=== PATIENT | male | born 1950 | race Caucasian/White ===

== ENCOUNTER 2022-04-17 09:00 | Emergency (ER) | payer MEDICARE, OTHER, SELFPAY ==
[2022-04-17 09:01] VITALS: BP 124/74; PULSE 70; RESP 16; TEMP 36.6; O2SAT 99; BMI 24.0
--- NOTE | 2022-04-17 09:29 | EKG12_ITS ---
Test Reason : WEAKNESS Blood Pressure : / mmHG Vent. Rate : 065 BPM Atrial Rate : 065 BPM P-R Int : 148 ms QRS Dur : 168 ms QT Int : 436 ms P-R-T Axes : 019 -14 002 degrees QTc Int : 453 ms Normal sinus rhythm Right bundle branch block Abnormal ECG Confirmed by MELLISA GREENBERG, CONNIE ([id number]), film or videotape editor TK GUADALUPE ([id number]) on 04/19/2022 8:20:52 AM Referred By: MARIA DEL CARMEN Confirmed By:CONNIE PAK MD
--- NOTE | 2022-04-17 09:32 | EX.ED.DYSGE1 ---
HPI History of Present Illness Chief Complaint: Weakness Informant: patient, spouse/S.O. and family Narrative Narrative: Patient presents with generalized weakness and occasional mild confusion. Patient presents with his brother who is a retired physician and with the patient's . The patient admits that he got lost coming back from [place] last week. But he states that was with his grandson and they just took a wrong turn. Other than that he feels fine. He does not feel he is having any issues. He admits he is lost about 20 pounds in the last few months. But he states his is on a diet so he has been eating like her and has been eating less. He was happy he was losing weight. His family states that his energy level is significantly down in the last week. If he does a small amount of activity he seems tired. He is not having dyspnea or dyspnea on exertion or chest pain he just wears out easier than normal. He does spend a lot of time outdoors and does a lot of outside work. It has been very hot this past week and they are concerned that he is very dehydrated. He also has had some soft stools and mild diarrhea going on for 5 or 6 months. No blood. Patient attributes this to a change in metformin dosing. He states he is always had some diarrhea with metformin. It sounds like he also had glimepiride added recently because his hemoglobin A1c's were about 7-1/2. But he does not check his blood sugar at home so we do not know if he is running low. Last night he had trouble entering his pin into his phone, had trouble giving the correct middle name of the daughter and had trouble remembering the nickname of his car. His brother got a blood pressure about 77 when this was going on. They had him drink a couple Gatorade's. His blood pressure has been better since then. They also states that the patient is much better today than he has been. They have never noticed a focal neurologic deficit. They have not noticed dyspnea on exertion. Patient has not had COVID that they know of although his did. Nothing clearly makes his symptoms worse. Drinking the Gatorade did seem to help quite a bit though. Patient is also on glimepiride and hydrochlorothiazide in addition to the meds listed. [facility] Medical History Diabetes mellitus High cholesterol HTN (hypertension) Home Medications amlodipine 5 mg tablet 5 mg PO DAILY 02/09/21 [History Last Taken Unknown] atorvastatin 10 mg tablet 10 mg PO DAILY 02/09/21 [History Last Taken Unknown] metformin 1,000 mg tablet 2,000 mg PO DAILY 02/09/21 [History Last Taken Unknown] potassium chloride 20 mEq tablet,extended release 20 meq PO DAILY #20 tabs 04/17/22 [Rx Last Taken Unknown] Allergy/AdvReac Type Severity Reaction Status Date / Time No Known Allergies Allergy Unverified 04/17/22 09:04 Surgical History Hx of hernia repair (~1965) Social History Smoking Status: Unknown if ever smoked ROS ROS ED Constitutional Constitutional ED: Reports weight loss; Denies chills or fever(s) Eyes Eyes: Denies blurry vision or change in vision ENT ENT ED: Denies rhinorrhea Cardiovascular Cardiovascular: Denies chest pain or palpitations Respiratory/Chest Respiratory/Chest: Denies cough, dyspnea or dyspnea on exertion Gastrointestinal Gastrointestinal: Reports diarrhea; Denies abdominal pain, constipation, melena or vomiting Genitourinary Genitourinary ED: Denies dysuria Musculoskeletal Musculoskeletal: Denies myalgias Neurologic Neurologic: Denies headache(s), paresthesias or weakness Endocrine Endocrinology: Denies polydipsia or polyuria Allergic/Immunologic Allergic/Immunologic ED: Denies urticaria EXAM Physical Exam Const Vital Signs: 04/17/22 09:01 Temperature 97.9 F Temperature Source Temporal Pulse Rate 70 Respiratory Rate 16 Blood Pressure 124/74 H Blood Pressure Mean 90 Pulse Ox 99 Oxygen Delivery Method Room Air Positive well nourished and well developed; Negative for unkempt Constitutional Narrative: Patient walked back without any difficulty or discoordination. General Appearance ED: well developed and NAD; Negative for unkempt, cyanotic or diaphoretic HEENT Reports dry mucous membranes HEENT Narrative: Minimally dry mucous membranes. But not markedly so. Mouth ED: Yes dry mucous membranes Mouth: dry mucous membranes Eyes EOMs intact bilaterally Eyes Narrative: No conjunctival injection or paleness. General Eye ED: Negative for pale conjunctiva or scleral icterus Neck no lymphadenopathy Lymph Lymphatic Narrative: No lymph nodes felt around the neck axilla middle arm or groin area. Resp normal respiratory effort and clear to auscultation bilaterally Cardio regular rate and regular rhythm GI normal to inspection, nondistended, normoactive bowel sounds, non-tender and non-distended Back/Spine no CVA tenderness Extremity normal to inspection Extremity Narrative: Normal muscle mass. No edema or cords. General Extremety ED: Negative for edema or tenderness General Extremity: Negative for edema Neuro oriented x3 Neuro Narrative: Patient feels fine at this time. He is alert oriented and appropriate. His family also states he is a lot better this morning than he has been. Sensorium / Orientation: Negative for orientation impaired Psych Appearance: Negative for unkempt Skin no rashes or lesions noted Skin Narrative: Patient is very tanned and obviously outside quite a bit. MDM MDM MDM Narrative Medical decision making narrative: Patient CBC shows normal white count hemoglobin platelets. Sodium was minimally low at 134. Potassium was fairly low at 2.5. BUN and creatinine were elevated but I do not have a baseline on this patient. His brother states that he believes both he and his brother have mild renal dysfunction due to longstanding diabetes but we do not have a number available. Glucose was 149 showing reasonable control. Cortisol level came back at 19.6 which is normal. Patient feels well now. His family states he feels well. He is given IV fluids here which will help with hydration. Magnesium was also okay. I will give him oral replacement of potassium. We discussed the option of IV. He will need to be on more potassium replacement as an outpatient. He also needs to be rechecked this week and have repeat blood work done in few days. We need to check his renal function and potassium again. I will have him hold his hydrochlorothiazide for now. They then also need to deal with his longstanding diarrhea. They may want to adjust metformin and glimepiride to provide better blood sugar control without the diarrhea side effect that we think comes from metformin. Lab Data Attestation: I reviewed the patient's lab results. Labs: Laboratory Results - last 24 hr 04/17/22 04/17/22 04/17/22 10:00 10:00 10:00 WBC 9.4 RBC 4.94 Hgb 14.1 Hct 40.6 MCV 82.2 MCH 28.5 MCHC 34.7 RDW Std Deviation 41.1 RDW Coeff of John 13.8 Plt Count 365 MPV 9.5 Immature Gran % (Auto) 3.100 H Neut % (Auto) 68.6 Lymph % (Auto) 12.9 L Nelson % (Auto) 13.8 H Eos % (Auto) 0.7 Baso % (Auto) 0.9 Absolute Neuts (auto) 6.4 Absolute Lymphs (auto) 1.21 Nucleated RBC % 0 Differential Comment Sodium 134 L Potassium 2.5 L* Chloride 103 Carbon Dioxide 20.0 L Anion Gap 11 BUN 42 H Creatinine 1.92 H Estim Creat Clear Calc 41.04 Est GFR (MDRD) Af Amer 45 L Est GFR (MDRD) Non-Af 37 L BUN/Creatinine Ratio 21.9 H Glucose 149 H Calcium 8.8 Magnesium 2.1 Total Bilirubin 0.50 AST 19 ALT 19 Alkaline Phosphatase 53 Troponin I High Sens 14 Total Protein 8.1 Albumin 2.8 L Globulin 5.3 H Albumin/Globulin Ratio 0.5 L Cortisol 19.60 EKG Initial EKG: Comments: EKG done for generalized weakness read by me shows normal sinus rhythm with a right bundle branch block pattern. There are mild nonspecific ST and T wave changes likely consistent with this bundle branch block. But no sign of infarct or ischemia. VA interval is normal. QRS duration is slightly long. QTc is normal. I have no old for comparison. Discharge Plan Triage Chief Complaint: Weakness ED Provider: Milton Rodney Dx/Rx/DC Orders Clinical Impression: Acute hypokalemia, Acute dehydration, Chronic diarrhea Instructions: ED Dehydration (Adult), ED Hypokalemia Prescriptions: New potassium chloride 20 mEq tablet extended release 20 meq PO DAILY Qty: 20 0RF Rx Instructions: 1 tablet 3 times a day for 2 days then 1 tablet 2 times a day for 2 more days then once a day until your potassium is rechecked this coming week No Action metformin 1,000 mg tablet 2,000 mg PO DAILY atorvastatin 10 mg tablet 10 mg PO DAILY amlodipine 5 mg tablet 5 mg PO DAILY Primary Care Provider: Jair Parikh NP Referrals: Henrry Lugo MD [STAFF PHYSICIAN] - 2 Days for wound check Jair Parikh NP, EXTENSION EDUCATOR-C [Primary Care Provider] - 2 Days for wound check (Follow-up for repeat blood work for potassium and kidney function. Will also need to consider continuation or substitution of hydrochlorothiazide and metformin.) Disposition Disposition: Home, Self Care
[2022-04-17] MEDS: 0.9% Normal Saline 1,000 ML 1000 ML IV (10:05)
[2022-04-17 10:08] LABS: Absolute Lymphocyte Count 1.21 X10^3/uL (0.83-4.51); Absolute Neutrophil Count 6.4 X10^3/uL (2.0-7.7); Basophil# 0.08 X10^3/uL; Basophil% 0.9 % (0-1); Differential Indicated SCAN CRITERIA MET; Eosinophil# 0.07 X10^3/uL; Eosinophils% 0.7 % (0-5); Hematocrit 40.6 % (40-54); Hemoglobin 14.1 g/dL (13.0-16.5); Lymphocyte # 1.21 X10^3/ul (0.83-4.51); Lymphocyte % 12.9 % (19-41); Mean Corp Hgb Conc 34.7 g/dL (32-36); Mean Corpuscular Hgb 28.5 pg (27.0-32.0); Mean Corpuscular Volume 82.2 fL (80-94); Mean Platelet Vol. 9.5 fl (6.2-12.0); Monocyte# 1.29 X10^3/uL; Monocyte% 13.8 % (0-10); NRBC Flagged by Analyzer 0 % (0-5); Neutrophil # 6.41 X10^3/uL (2.7-7.7); Neutrophil % 68.6 % (47-70); POSITIVE MORPHOLOGY YES; Platelet Count 365 K/mm3 (150-450); RBC Distribution Width CV 13.8 % (11.6-14.6); RBC Distribution Width SD 41.1 fl (35.1-43.9); Red Blood Count 4.94 M/mm3 (4.6-6.2); White Blood Count 9.4 K/mm3 (4.4-11.0)
[2022-04-17 10:33] LABS: ALB/GLOB Ratio 0.5 RATIO (0.9-2.4); AST(SGOT) 19 U/L (15-37); Alanine Aminotransfer ALT/SGPT 19 U/L (16-61); Albumin, Serum 2.8 g/dL (3.2-5.0); Alkaline Phosphatase 53 U/L (45-117); Anion Gap 11 (5-15); BUN 42 mg/dL (7-18); BUN/Creat Ratio 21.9 RATIO (10-20); Calcium,Total 8.8 mg/dL (8.5-10.1); Chloride 103 mmol/L (98-107); Creatinine, Serum 1.92 mg/dL (0.70-1.30); EST Glomerular Filtration Rate 37 mL/min (>60); Est Glom Filt Rate - Afr Amer 45 mL/min (>60); Estimated Creatinine Clearance 41.04 ml/min; Globulin 5.3 g/dL (2.2-4.2); Glucose 149 mg/dL (74-106); Magnesium 2.1 mg/dL (1.6-2.6); Potassium 2.5 mmol/L (3.5-5.1); Protein, Total 8.1 g/dL (6.4-8.2); Sodium Level 134 mmol/L (136-145); Troponin-I HS 14 pg/mL (3.0-78.0)
[2022-04-17 11:00] VITALS: RESP 18
[2022-04-17] MEDS: Potassium Chloride Oral Tablet 20 MEQ 40 MEQ PO (11:27)
[2022-04-17 11:32] VITALS: RESP 18
== END 2022-04-17 11:33 | disposition home or self-care (01) ==
PROVIDERS: Emergency Provider Emergency Medicine; PCP Nurse Practitioner Family; Visit Provider Emergency Medicine
DX: E87.6 Hypokalemia (principal); E11.9 Type 2 diabetes mellitus without complications; Z79.84 Long term (current) use of oral hypoglycemic drugs; R41.0 Disorientation, unspecified; I10 Essential (primary) hypertension; E86.0 Dehydration; E78.00 Pure hypercholesterolemia, unspecified
CPT/HCPCS: 96360; 99284; 80053; 82533; 83735; 84484; 85025; 93005; J7030; A4216

== ENCOUNTER 2022-04-19 16:19 | Inpatient (IN) | payer MEDICARE, OTHER, SELFPAY ==
[2022-04-19] VITALS (9 sets, daily range): BP systolic 103–140; BP diastolic 62–93; PULSE 71–89; RESP 14–24; TEMP 36.1–37.8; O2SAT 96–98; BMI 24.6; BMI 24.8
--- NOTE | 2022-04-19 16:35 | EKG12_ITS ---
Test Reason : Blood Pressure : / mmHG Vent. Rate : 082 BPM Atrial Rate : 082 BPM P-R Int : 144 ms QRS Dur : 160 ms QT Int : 398 ms P-R-T Axes : 053 -37 015 degrees QTc Int : 464 ms Normal sinus rhythm Left axis deviation Right bundle branch block Abnormal ECG Confirmed by MELLISA GREENBERG, CONNIE ([id number]), editor farm journal TK GUADALUPE ([id number]) on 04/21/2022 11:00:55 AM Referred By: TL Confirmed By:CONNIE PAK MD
--- NOTE | 2022-04-19 16:35 | CT_ITS ---
We are attempting to reach an attending provider to discuss findings. An addendum with communication details will be sent when the communication is complete. EXAM: CT HEAD WITHOUT INTRAVENOUS CONTRAST CLINICAL INDICATION: Neuro deficit, acute, stroke suspected TECHNIQUE: Multiple axial images were obtained of the head without intravenous contrast. This CT exam was performed using one or more of the following dose reduction techniques: automated exposure control, adjustment of the mA and/or kV according to patient size, and/or use of iterative reconstruction technique. This report was created using [employer] technology. COMPARISON: None. FINDINGS: BRAIN AND EXTRA-AXIAL SPACES: Unremarkable. No intra- or extra-axial hemorrhage. No evidence of acute infarct. No intracranial mass or mass effect. There is preservation of the padilla/white matter interface. Posterior fossa structures are unremarkable. Ventricles are appropriate for age. No hydrocephalus. Basal cisterns are patent. BONES/JOINTS: Unremarkable. No discrete lytic or blastic abnormalities. SINUSES: Unremarkable as visualized. Clear. MASTOID AIR CELLS: Unremarkable. Clear. ORBITS: Visualized globes, extraocular muscles, optic nerves and retrobulbar fat appear unremarkable. apects 10 CT/STROKE Brain/Head without Cont IMPRESSION: Negative head/brain CT without intravenous contrast. cf called Electronically Signed: Suraj Blair MD at 16:56 EDT ,
--- NOTE | 2022-04-19 16:35 | RAD_ITS ---
STUDY: XR Chest 1 View 04/19/2022 5:07 PM REASON FOR EXAM: Male, 71 years old. CHEST PAIN Neuro deficit, acute, stroke suspected COMPARISON: None TECHNIQUE: XR Chest 1 View FINDINGS: There is no demonstrated pleural abnormality. Normal heart size. Normal mediastinum. Normal clare. Prominent appearing increased interstitial lung markings. Normal visualized pulmonary arteries. There is atherosclerotic calcification of the aortic arch with tortuosity. There are diffuse degenerative changes of the visualized thoracic spine. There is degenerative osteoarthritis of the bilateral shoulders. There is no demonstrated abnormality of the visualized soft tissue structures of the upper abdomen. RAD/Chest 1 View IMPRESSION: There are no acute findings. Electronically Signed: Suraj Blair MD at 17:23 EDT ,
--- NOTE | 2022-04-19 16:37 | NURSING ---
STROKE ALERT 1630
--- NOTE | 2022-04-19 16:37 | ED.VIS.STROK ---
HPI History of Present Illness Chief Complaint: Neuro S/Sx Informant: spouse/S.O. and family Narrative Narrative: Patient presented with recurrent worsening confusion starting around noon today. Patient not making sense per spouse and daughter. Patient had symptoms 3 days ago on Monday night he came to the emergency room on Monday with his spouse and brother who was a physician. Mentally he was better when being evaluated. He had a work-up with labs noted elevated creatinine and low sodium potassium. He was sent home. He was doing well yesterday. He was doing well this morning. However around noon sudden onset of symptoms again which is worsened per spouse. History of diabetes hypercholesterolemia and amlodipine. Per family his hydrochlorothiazide was held after his evaluation 2 days ago. No stroke history. No cardiac history. Prior similar symptoms: Yes PFSH [facility] Medical History Diabetes mellitus High cholesterol HTN (hypertension) Home Medications amlodipine 5 mg tablet 5 mg PO DAILY 02/09/21 [History Last Taken 04/18/22] atorvastatin 10 mg tablet 10 mg PO DAILY 02/09/21 [History Last Taken 04/18/22] potassium chloride 20 mEq tablet,extended release 20 meq PO DAILY #20 tabs 04/17/22 [Rx Last Taken 04/18/22] glimepiride 2 mg tablet 2 mg PO TID DM 04/19/22 [History Last Taken 04/18/22] hydrochlorothiazide 12.5 mg tablet 12.5 mg PO DAILY FLUID 04/19/22 [History Last Taken 04/17/22] losartan 50 mg tablet 50 mg PO DAILY BP 04/19/22 [History Last Taken 04/18/22] metformin 500 mg tablet,extended release 24 hr 1,000 mg PO DAILY DM 04/19/22 [History Last Taken 04/18/22] metformin 500 mg tablet,extended release 24 hr 500 mg PO DAILY DM 04/19/22 [History Last Taken 04/18/22] Allergy/AdvReac Type Severity Reaction Status Date / Time No Known Allergies Allergy Unverified 04/17/22 09:04 Surgical History Hx of hernia repair (~1965) Social History Smoking Status: Never smoker ROS ROS ED Constitutional Constitutional ED: Denies chills, fever(s) or sweats Eyes Eyes: Denies change in vision ENT ENT ED: Denies dysphagia or sore throat Cardiovascular Cardiovascular: Denies chest pain, leg edema, palpitations or racing heartbeat Respiratory/Chest Respiratory/Chest: Denies cough, dyspnea or dyspnea on exertion Gastrointestinal Gastrointestinal: Denies abdominal pain, diarrhea, nausea or vomiting Genitourinary Genitourinary ED: Denies dysuria, hematuria or urinary frequency Musculoskeletal Musculoskeletal: Denies back pain, extremity pain or neck pain Integumentary Denies rash or wounds Neurologic Neurologic: Reports other Details: Confusion ; Denies headache(s), paresthesias or weakness EXAM Physical Exam Const Vital Signs: 04/19/22 16:19 04/19/22 16:39 04/19/22 16:58 Temperature 98.7 F Temperature Source Temporal Pulse Rate 86 84 Respiratory Rate 17 24 H Blood Pressure 118/93 H 139/62 H Blood Pressure Mean 101 87 Pulse Ox 97 Oxygen Delivery Method Room Air Room Air Room Air 04/19/22 17:05 Temperature Temperature Source Pulse Rate 89 Respiratory Rate 16 Blood Pressure 140/68 H Blood Pressure Mean 92 Pulse Ox Oxygen Delivery Method Positive well nourished and well developed Constitutional Narrative: Patient is confused on exam needing redirection repeating answers. General Appearance ED: well developed HEENT Reports moist mucous membranes normocephalic and atraumatic Eyes PERRL, EOMs intact bilaterally and conjunctivae normal General Eye ED: Yes normal appearance of both eyes Neck no lymphadenopathy and supple General: Negative for tenderness Chest Wall Chest: Negative for tenderness Resp normal respiratory effort and normal air movement Effort and Inspection: symmetric chest movement; Negative for respiratory distress Cardio regular rate, regular rhythm and no murmurs Peripheral Pulses: pulses 2+ throughout GI normal to inspection, nondistended, normoactive bowel sounds and non-tender Palpation: Negative for guarding or rebound tenderness present Back/Spine no CVA tenderness and no thoracic nor lumbar tenderness Extremity normal to inspection General Extremety ED: Negative for edema or tenderness General Extremity: Negative for edema Neuro oriented x3 and CN's II-XII intact bilaterally Neuro Narrative: NIH of 5 for stating age was 70, cannot tell me the month, bilateral leg drifting, paresthesias on right side compared to the left. Sensorium / Orientation: awake and alert Skin no rashes or lesions noted and no wounds STROKE Vital Signs/Narrative: Vital Signs Temp Pulse Resp BP Pulse Ox 04/19/22 17:05 89 16 140/68 H 04/19/22 16:58 84 24 H 139/62 H 04/19/22 16:19 98.7 F 86 17 118/93 H 97 Inital Vital Signs reviewed: Yes NIHSS Initial: 1a Level of Consciousness: 0 1b LOC Questions (Score 2 if aphasic/stupor): 2 1c LOC Commands (Only score 1st attempt): 0 2 Best Gaze (If aphasic, use reflexive mvmts.): 0 3 Visual: 0 4 Facial Palsy: 0 5 Motor Arm Right (UN = amputation/fusion): 0 5 Motor Arm Left: 0 6 Motor Leg Right: 1 6 Motor Leg Left: 1 7 Limb ataxia (Only + if out of proportion): 0 8 Sensory (Aphasia/stupor=0 or 1, coma=2): 1 9 Best Language: 0 10 Dysarthria (mute, coma=2, intubated=UN): 0 11 Extinction and Inattention (only scored if +): 0 Total Score: 5 MDM MDM MDM Narrative Medical decision making narrative: Patient not baseline with confusion. He has NIH of 5. Onset of symptoms today is recurrent at noon which is worsened now more than 4 and half hours out. However initial symptoms possibly occurred Monday evening. Blood glucose was 200s. I did initiate stroke team for more urgent evaluation. Will discuss with neurology for disposition and plan of care. He had a creatinine 1.9 to 2 days ago potassium 2.5. Patient valued by neurologist Dr. Aguila, agrees he is outside the window for tPA. No immediate angiogram required. Admit for MRI studies and stroke work-up. Reports to start aspirin. Bedside swallow with aspirin. Labs potassium 2.9 up from 2.5. Oral replacement was ordered. Creatinine down to 1.5 from 1.92. Reevaluation he is clinically seem to be more improving compared to initial evaluation. Urine is pending. Chest x-ray 1 view reviewed myself shows no acute process. There is also read by radiology. CT brain negative. I spoke with hospitalist Dr. Shepard for admission to PCU. Lab Data Attestation: I reviewed the patient's lab results. Labs: Laboratory Results - last 24 hr 04/19/22 04/19/22 04/19/22 16:33 16:35 16:35 WBC 13.4 H RBC 4.63 Hgb 13.4 Hct 37.8 L MCV 81.6 MCH 28.9 MCHC 35.4 RDW Std Deviation 40.5 RDW Coeff of John 13.6 Plt Count 334 MPV 8.9 Immature Gran % (Auto) 2.600 H Neut % (Auto) 81.9 H Lymph % (Auto) 7.3 L Hickman % (Auto) 7.9 Eos % (Auto) 0.1 Baso % (Auto) 0.2 Absolute Neuts (auto) 11.0 H Absolute Lymphs (auto) 0.98 Nucleated RBC % 0 PT INR APTT Sodium 136 Potassium 2.9 L Chloride 104 Carbon Dioxide 24.0 Anion Gap 8 BUN 23 H Creatinine 1.45 H Estim Creat Clear Calc 54.34 Est GFR (MDRD) Af Amer 62 Est GFR (MDRD) Non-Af 51 L BUN/Creatinine Ratio 15.9 Glucose 222 H Calcium 8.9 Phosphorus Magnesium Troponin I High Sens 15 POC Glucose 213 H 04/19/22 04/19/22 16:35 17:06 WBC RBC Hgb Hct MCV MCH MCHC RDW Std Deviation RDW Coeff of John Plt Count MPV Immature Gran % (Auto) Neut % (Auto) Lymph % (Auto) Hickman % (Auto) Eos % (Auto) Baso % (Auto) Absolute Neuts (auto) Absolute Lymphs (auto) Nucleated RBC % PT 14.9 INR 1.2 APTT 24.0 L Sodium Potassium Chloride Carbon Dioxide Anion Gap BUN Creatinine Estim Creat Clear Calc Est GFR (MDRD) Af Amer Est GFR (MDRD) Non-Af BUN/Creatinine Ratio Glucose Calcium Phosphorus 1.6 L Magnesium 1.7 Troponin I High Sens POC Glucose Radiography Diagnostic Testing: Clinical Impression(s) from Imaging Studies Brain CT 04/19/22 16:35 IMPRESSION: Negative head/brain CT without intravenous contrast. cf called Electronically Signed: Suraj Blair MD at 16:56 EDT , ADDENDUM: 04/19/22 1707 IMPRESSION: Negative head/brain CT without intravenous contrast. cf called N.B. : The above Results were Read Back by Suraj Blair MD to MD Richard, and understanding confirmed on 04/19/2022 17:00:22 (ET). Electronically Signed: Suraj Blair MD at 16:56 EDT , Chest X-Ray 04/19/22 16:35 IMPRESSION: There are no acute findings. Electronically Signed: Suraj Blair MD at 17:23 EDT , EKG Initial EKG: Attestation: I personally reviewed and interpreted this EKG as follows: Comments: Sinus rate of 82, no ST or changes. Right bundle branch block. Discharge Plan Dx/Rx/DC Orders Clinical Impression: Acute hypokalemia, Brain TIA, Confusion, Renal insufficiency, RBBB, Hypokalemia Disposition Disposition: Acute Care Hospital [facility] Discharge Date/Time: 04/19/22 18:04
[2022-04-19 16:41] LABS: Bedside Glucose 213 mg/dL (74-106)
[2022-04-19 16:43] LABS: Absolute Lymphocyte Count 0.98 X10^3/uL (0.83-4.51); Basophil# 0.03 X10^3/uL; Basophil% 0.2 % (0-1); Eosinophil# 0.01 X10^3/uL; Eosinophils% 0.1 % (0-5); Hematocrit 37.8 % (40-54); Hemoglobin 13.4 g/dL (13.0-16.5); Lymphocyte # 0.98 X10^3/ul (0.83-4.51); Lymphocyte % 7.3 % (19-41); Mean Corp Hgb Conc 35.4 g/dL (32-36); Mean Corpuscular Hgb 28.9 pg (27.0-32.0); Mean Corpuscular Volume 81.6 fL (80-94); Mean Platelet Vol. 8.9 fl (6.2-12.0); Monocyte# 1.06 X10^3/uL; Monocyte% 7.9 % (0-10); NRBC Flagged by Analyzer 0 % (0-5); Neutrophil # 10.98 X10^3/uL (2.7-7.7); Neutrophil % 81.9 % (47-70); Platelet Count 334 K/mm3 (150-450); RBC Distribution Width CV 13.6 % (11.6-14.6); RBC Distribution Width SD 40.5 fl (35.1-43.9); Red Blood Count 4.63 M/mm3 (4.6-6.2); White Blood Count 13.4 K/mm3 (4.4-11.0)
[2022-04-19 17:04] LABS: Anion Gap 8 (5-15); BUN 23 mg/dL (7-18); BUN/Creat Ratio 15.9 RATIO (10-20); Calcium,Total 8.9 mg/dL (8.5-10.1); Chloride 104 mmol/L (98-107); Creatinine, Serum 1.45 mg/dL (0.70-1.30); EST Glomerular Filtration Rate 51 mL/min (>60); Est Glom Filt Rate - Afr Amer 62 mL/min (>60); Estimated Creatinine Clearance 54.34 ml/min; Glucose 222 mg/dL (74-106); Potassium 2.9 mmol/L (3.5-5.1); Sodium Level 136 mmol/L (136-145); Troponin-I HS 15 pg/mL (3.0-78.0)
[2022-04-19] MEDS: Aspirin 325 MG Tablet PO (17:19)
[2022-04-19] MEDS: Potassium Chloride Oral Tablet 20 MEQ 40 MEQ PO (17:19)
--- NOTE | 2022-04-19 17:26 | NURSING ---
DR TIFFANY CRUZ
[2022-04-19 17:33] LABS: International Normalized Ratio 1.2; Prothrombin Time (Protime)PT. 14.9 SECONDS (11.7-14.9)
--- NOTE | 2022-04-19 17:38 | PCM.HP.STD ---
HPI - General General Date of Admission: 04/19/22 Date of Service: 04/19/22 Chief Complaint: Sudden onset of confusion today at noon. Similar event about 3 days ago HPI Narrative IRENE STEVENS, is a 71 M who was brought to ED for confusion that started about noon today. Patient had similar presentation on Monday night about 3 days ago and he came to ED on Monday with his spouse. At that time patient was found to have elevated creatinine, hyponatremia and hypokalemia, replaced and was sent home. Today around noon time patient not able to recognize his , incomprehensive to his speech, change in behavior which was concerning for patient's family therefore he was brought to ED. No focal weakness, numbness tingling, facial droop, slurring, dysarthria, dysphagia. Patient was able to pronounce well but was not making sense to patient's family. Twelve-lead EKG shows normal sinus rhythm, LAD, right bundle branch block at 82 bpm, QTC 464 ms. Previous EKG of [address] head done in the ER reported negative. Chest x-ray no acute finding. Patient also has diarrhea about 4-5 times intermittently for 5 to 6-month. He also had abdominal cramps and pain about 10 to 12 days ago but has now resolved but diarrhea still ongoing. Mild warm feeling but has not had fever check. No URI or new lower urinary tract symptoms [facility] [place] Medical History Diabetes mellitus High cholesterol HTN (hypertension) Home Medications amlodipine 5 mg tablet 5 mg PO DAILY 02/09/21 [History Last Taken 04/18/22] atorvastatin 10 mg tablet 10 mg PO DAILY 02/09/21 [History Last Taken 04/18/22] potassium chloride 20 mEq tablet,extended release 20 meq PO DAILY #20 tabs 04/17/22 [Rx Last Taken 04/18/22] glimepiride 2 mg tablet 2 mg PO TID DM 04/19/22 [History Last Taken 04/18/22] hydrochlorothiazide 12.5 mg tablet 12.5 mg PO DAILY FLUID 04/19/22 [History Last Taken 04/17/22] losartan 50 mg tablet 50 mg PO DAILY BP 04/19/22 [History Last Taken 04/18/22] metformin 500 mg tablet,extended release 24 hr 1,000 mg PO DAILY DM 04/19/22 [History Last Taken 04/18/22] metformin 500 mg tablet,extended release 24 hr 500 mg PO DAILY DM 04/19/22 [History Last Taken 04/18/22] Allergy/AdvReac Type Severity Reaction Status Date / Time No Known Allergies Allergy Unverified 04/17/22 09:04 Surgical History Hx of hernia repair (~1965) Social History Smoking Status: Never smoker ROS ROS Narrative History and 14 ROS taken from patient, and 2 daughters. At bedside Constitutional: Chills. Feeling warmth about to 3 days ago. Diarrhea. HEENT: Reports systems reviewed and no addt'l complaints, except as documented Respiratory/Chest: Denies chest pain, shortness of breath at rest or with exertion Gastrointestinal: Denies coffee ground emesis, hematemesis or vomiting Genitourinary: Denies burning urination or new urinary tract symptoms Musculoskeletal: No acute joint pain and limited range of motion Neurologic: Denies seizure-like activity. Acute onset of confusion. Rest admission HPI skin: No ulcer. No rash Endocrinology: Electrolyte abnormality. Reports systems reviewed and no addt'l complaints, except as documented Hematologic/Lymphatic: Reports systems reviewed and no addt'l complaints, except as documented Rest 14 ROS are negative except as mentioned in HPI Vital Signs Vital Signs Vital Signs: 04/19/22 16:19 04/19/22 16:39 04/19/22 16:58 Temperature 98.7 F Temperature Source Temporal Pulse Rate 86 84 Respiratory Rate 17 24 H Blood Pressure 118/93 H 139/62 H Blood Pressure Mean 101 87 Pulse Ox 97 Oxygen Delivery Method Room Air Room Air Room Air 04/19/22 17:05 Temperature Temperature Source Pulse Rate 89 Respiratory Rate 16 Blood Pressure 140/68 H Blood Pressure Mean 92 Pulse Ox Oxygen Delivery Method Weight Weight: 186 lb 15.232 oz Body Mass Index (BMI) 24.6 Physical Exam Narrative General: Alert, Oriented x3, Cooperative. Low-grade fever HEENT: Atraumatic, PERRLA, EOMI, Normocephalic. Mild chronic hearing loss bilateral Oral: No Gingival or Mucosal Lesions/ Ulcerations Neck: Supple, No JVD, Negative Carotid Bruits Lungs: Air entry diminished in bilateral lung bases. No crepitation/rhonchi Cardiovascular: Regular rate, Regular Rhythm, Normal S1, Normal S2, No murmurs Abdomen: Bowel Sounds Present, Soft, Non Tender, Non-Distended : No renal angle tenderness. No suprapubic tenderness. Extremities: No edema, Capillary Refill Less than 3 Seconds Skin: No rashes, No breakdown Musculoskeletal: No Tenderness to Palpation of Joints or Extremities Neurological: Cranial nerves II-XII grossly intact, DTR 2+/4 and Symmetrical, NIHSS 2, automotive same month correctly and not able to perform task correctly Psych/Mental Status: Flat affect. Results Lab / Micro Data Result Diagrams: 04/19/22 16:35 04/19/22 16:35 Labs: Laboratory Results - last 24 hr 04/19/22 16:33: POC Glucose 213 H 04/19/22 16:35: WBC 13.4 H, RBC 4.63, Hgb 13.4, Hct 37.8 L, MCV 81.6, MCH 28.9, MCHC 35.4, RDW Std Deviation 40.5, RDW Coeff of John 13.6, Plt Count 334, MPV 8.9, Immature Gran % (Auto) 2.600 H, Neut % (Auto) 81.9 H, Lymph % (Auto) 7.3 L, Henderson % (Auto) 7.9, Eos % (Auto) 0.1, Baso % (Auto) 0.2, Absolute Neuts (auto) 11.0 H, Absolute Lymphs (auto) 0.98, Nucleated RBC % 0 04/19/22 16:35: Sodium 136, Potassium 2.9 L, Chloride 104, Carbon Dioxide 24.0, Anion Gap 8, BUN 23 H, Creatinine 1.45 H, Estim Creat Clear Calc 54.34, Est GFR (MDRD) Af Amer 62, Est GFR (MDRD) Non-Af 51 L, BUN/Creatinine Ratio 15.9, Glucose 222 H, Calcium 8.9, Troponin I High Sens 15 04/19/22 17:06: PT 14.9, INR 1.2, APTT 24.0 L Radiology Impression Brain CT 04/19/22 16:35 IMPRESSION: Negative head/brain CT without intravenous contrast. cf called Electronically Signed: Suraj Blair MD at 16:56 EDT , ADDENDUM: 04/19/22 1707 IMPRESSION: Negative head/brain CT without intravenous contrast. cf called N.B. : The above Results were Read Back by Suraj Blair MD to MD Richard, and understanding confirmed on 04/19/2022 17:00:22 (ET). Electronically Signed: Suraj Blair MD at 16:56 EDT , Chest X-Ray 04/19/22 16:35 IMPRESSION: There are no acute findings. Electronically Signed: Suraj Blair MD at 17:23 EDT , Assessment & Plan Assessment/Plan (1) Confusion: PLAN: This is a 71-year-old Gentleman came to ER for evaluation of confusion, acute onset. 1. Acute onset of confusion/delirium, suggestive of acute encephalopathy exact etiology unclear, most likely multifactorial metabolic, rule out infection: Patient is admitted in PCU on monitored bed. Treat the underlying cause. Patient does not have focal signs and symptoms relating to stroke but stroke needs to be ruled out. Stroke protocol with MRI brain, MRA head and neck, PT OT and speech evaluation. 2D echo ordered. Fasting profile, TSH and A1c tomorrow a.m. Patient was evaluated by [facility] neurology. 2. Low-grade fever, etiology unclear: Patient has diarrhea for 6 months. Stool for C. difficile, enteric bacterial panel, occult blood and leukocytes ordered. Blood cultures x2, UA and urine culture ordered. Patient does not have URI or acute urinary tract symptoms. 3. KYE with hypotonic hypovolemic hyponatremia and hypokalemia: BUN/creatinine elevated but improved since previous ED visit on 04/17. Monitor kidney function electrolytes. On 04/17 serum magnesium level was 2.1. Cortisol 19.6. Serum magnesium and phosphorus ordered. IV fluid Ringer lactate ordered. HCTZ on hold since last Monday. 3. Hypertension: Blood pressure in normal range. 4. Diabetes mellitus type 2: Hold for lethargy/sedation or respiratory rate less than 10/min oral hypoglycemic agents. Accu-Chek H&H's coverage Humalog sliding scale. Discontinue if platelet count drops less than 50,000 or hemoglobin less than 8 g% Heparin 5000 subcutaneous twice daily. Living will/advanced directive/end of life care: Patient does have living will or advanced directive. His is next of kin and power of privacy attorney for him. After discussion of benefits/risks procedures involved with full code, DNR CC arrest and DNR CC, the patient, and daughters opted for full code. Patient does want artificial life support including intubation, tube feed, ventilator and/chest compression, central venous catheter, vasopressor and DC shock if needed Total time spent in [id number] encounter in discussion of advanced directive 16 minutes. Charges/Coding Visit Charges OBSV E&M: 81466 Initial observation care L2 Procedures Hospitalists Procedures: 48447 Advncd Care Plan 30 Min
--- NOTE | 2022-04-19 17:43 | NURSING ---
PCU OBS TIFFANY TIA, CONFUSION
--- NOTE | 2022-04-19 17:48 | MRI_ITS ---
EXAM: MR ANGIOGRAPHY NECK WITHOUT INTRAVENOUS CONTRAST CLINICAL INDICATION: Suspected stroke TECHNIQUE: Routine carotid MR angiogram protocol was performed without intravenous contrast. 3D reconstructions were reviewed. Nascet criteria using the distal ICAs for comparison were used for evaluation of stenoses. This report was created using [employer] report [employer] technology. COMPARISON: None. FINDINGS: RIGHT COMMON CAROTID ARTERY: Unremarkable. No occlusion or significant stenosis. No dissection. RIGHT INTERNAL CAROTID ARTERY: There is calcified plaque formation of the right cavernous carotid artery, with a mild stenosis (less than 50%). ALL ABOVE CRITERIA BY NASCET. No dissection. RIGHT EXTERNAL CAROTID ARTERY: Unremarkable. No occlusion. RIGHT VERTEBRAL ARTERY: Unremarkable. No occlusion or significant stenosis. No dissection. LEFT COMMON CAROTID ARTERY: Unremarkable. No occlusion or significant stenosis. No dissection. LEFT INTERNAL CAROTID ARTERY: Unremarkable. Extracranial segment is patent with no occlusion or significant stenosis. No dissection. LEFT EXTERNAL CAROTID ARTERY: Unremarkable. No occlusion. LEFT VERTEBRAL ARTERY: Unremarkable. No occlusion or significant stenosis. No dissection. GREAT VESSELS OF AORTIC ARCH: There is calcified plaque formation of the left cavernous carotid artery, with a mild stenosis (less than 50%). ALL ABOVE CRITERIA BY NASCET. CAROTID STENOSIS REFERENCE USING NASCET CRITERIA: % ICA stenosis = (1 - narrowest ICA diameter/diameter of distal cervical ICA) x 100. Mild - <50% stenosis. Moderate - 50-69% stenosis. Severe - 70-94% stenosis. Near occlusion - 95-99% stenosis. Occluded - 100% stenosis. MRI/MRA Neck without Contrast IMPRESSION: 1. There is calcified plaque formation of the right cavernous carotid artery, with a mild stenosis (less than 50%). ALL ABOVE CRITERIA BY NASCET. 2. There is calcified plaque formation of the left cavernous carotid artery, with a mild stenosis (less than 50%). ALL ABOVE CRITERIA BY NASCET. Electronically Signed: Suraj Blair MD at 20:18 EDT ,
--- NOTE | 2022-04-19 18:09 | ECHOD_ITS ---
Reason For Study: TIA/CVA Procedure This was a 2D Doppler, Color Flow transthoracic echocardiogram. The exam was of adequate technical quality. Exam performed portable in patient room. Left Ventricle Normal LV size. Left ventricular systolic function is normal. The estimated ejection fraction is 65 %. Diastolic function is indeterminate. No regional wall motion abnormalities noted. Right Ventricle Normal RV size. Normal systolic function. Atria Normal left atrium. Normal right atrium. No doppler evidence for ASD. Bubble contrast study negative for right to left interatrial shunt. Mitral Valve There is no mitral annular calcification. Normal mitral valve. Trivial mitral valve insufficiency. Tricuspid Valve Normal tricuspid valve. Trivial tricuspid valve insufficiency. Right ventricular systolic pressure estimated to be 22 mmHg. Aortic Valve Trisinus/trileaflet aortic valve. Normal aortic valve. Pulmonic Valve The pulmonic valve is not well visualized. Trivial pulmonic valve insufficiency. Great Vessels Normal sized aortic root. Pericardium/Pleural Trivial pericardial effusion. There are no echocardiographic indications of cardiac tamponade. Medication Performed a rapid injection of agitated mix of 9 cc saline and 1cc air to assess for atrial septal defect. MMode/2D Measurements & Calculations LVIDd: 5.2 cm IVSd: 1.2 cm Ao root diam: 3.6 cm LVIDs: 2.7 cm LVPWd: 0.97 cm RVDd: 5.3 cm FS: 47.1 % LAV(MOD-bp): 57.5 ml LVAd ap4: 35.5 cm2 SV(MOD-sp4): 73.9 ml LAV(MOD-bp) Indexed: 27.3 ml/m2 LVLd ap4: 8.6 cm LAV(MOD-sp2): 69.9 ml EDV(MOD-sp4): 117.2 ml LAV(MOD-sp4): 36.2 ml EDV(sp4-el): 123.5 ml LVAs ap4: 18.9 cm2 LVLs ap4: 7.1 cm ESV(MOD-sp4): 43.3 ml ESV(sp4-el): 42.6 ml EF(MOD-sp4): 63.1 % EF(sp4-el): 65.5 % SV(sp4-el): 80.9 ml LA A4 area: 14.2 cm2 LA dimension(2D): 4.8 cm RA A4 area: 17.6 cm2 Doppler Measurements & Calculations MV E max keyur: 74.7 cm/sec Lat Peak E' Keyur: 7.6 cm/sec Med Peak E' Keyur: 4.8 cm/sec MV A max keyur: 57.4 cm/sec E/E' lat: 9.8 E/E' med: 15.4 MV E/A: 1.3 Ao V2 max: 152.1 cm/sec LV V1 max: 134.4 cm/sec PA V2 max: 105.9 cm/sec Ao max P.2 mmHg LV V1 max P.2 mmHg Ao V2 mean: 104.0 cm/sec Ao mean P.7 mmHg Ao V2 VTI: 30.0 cm TR max keyur: 219.5 cm/sec TR max P.3 mmHg ECHO/Echo Complete Interpretation Summary Left ventricular systolic function is normal. The estimated ejection fraction is 65 %. Trivial mitral valve insufficiency. Trivial tricuspid valve insufficiency. Trivial pulmonic valve insufficiency. Trivial pericardial effusion. There are no echocardiographic indications of cardiac tamponade. Right ventricular systolic pressure estimated to be 22 mmHg. Diastolic function is indeterminate. Bubble contrast study negative for right to left interatrial shunt. 2D echocardiographic images demonstrate small mobile echodensities within the l eft ventricle appearing compatible with redundant chordae tendonae. Ordering Physician: Real Shepard Referring Physician: Jair Parikh Performed By: Dinorah Youssef, SIMBA, RVT
--- NOTE | 2022-04-19 18:09 | MRI_ITS ---
EXAM: MR HEAD WITHOUT INTRAVENOUS CONTRAST CLINICAL INDICATION: SUSPECTED STROKE Technologist Notes Increasing confusion x 2-3 days TECHNIQUE: Multiplanar and multisequence MR images of the brain were obtained without intravenous contrast. This report was created using [employer] report [employer] technology. COMPARISON: None. FINDINGS: BRAIN AND EXTRA-AXIAL SPACES: Unremarkable. No intra- or extra-axial hemorrhage. No evidence of acute infarct. No intracranial mass or mass effect. There is preservation of the padilla/white matter interface. Posterior fossa structures are unremarkable. Ventricles are appropriate for age. No hydrocephalus. Basal cisterns are patent. SELLA: Unremarkable. Normal sella turcica, pituitary gland, infundibular stalk, optic chiasm and hypothalamus. AUDITORY SYSTEM: Unremarkable. The internal auditory canals are patent. BONES/JOINTS: Unremarkable. No discrete lytic or blastic abnormalities. SINUSES: Unremarkable as visualized. Clear. MASTOID AIR CELLS: Unremarkable as visualized. Clear. ORBITS: Unremarkable as visualized. Both globes, extraocular muscles, optic nerves and retrobulbar fat appear unremarkable. VASCULATURE: Unremarkable as visualized. Normal flow voids in the major intracranial circulation. MRI/Brain without Contrast IMPRESSION: Negative MRI brain without intravenous contrast. Electronically Signed: Suraj Blair MD at 20:16 EDT ,
--- NOTE | 2022-04-19 18:09 | MRI_ITS ---
EXAM: MR ANGIOGRAPHY HEAD WITHOUT INTRAVENOUS CONTRAST CLINICAL INDICATION: Suspected stroke TECHNIQUE: Routine king salmon of [place]/brain 3D time of flight MR angiogram protocol was performed without intravenous contrast. This report was created using [employer] report [employer] technology. COMPARISON: None. FINDINGS: RIGHT INTERNAL CAROTID ARTERY: There is calcified plaque formation of the right cavernous carotid artery, with a mild stenosis (less than 50%). ALL ABOVE CRITERIA BY NASCET. No aneurysm. RIGHT ANTERIOR CEREBRAL ARTERY: Unremarkable. No significant stenosis at the visualized segments. Anterior communicating artery is present. No aneurysm. RIGHT MIDDLE CEREBRAL ARTERY: Unremarkable. No significant stenosis at the visualized segments. No aneurysm. RIGHT POSTERIOR CEREBRAL ARTERY: Unremarkable. No significant stenosis at the visualized segments. No aneurysm. RIGHT VERTEBRAL ARTERY: Unremarkable as visualized. No significant stenosis at the intradural/visualized segments. No aneurysm. LEFT INTERNAL CAROTID ARTERY: There is calcified plaque formation of the left cavernous carotid artery, with a mild stenosis (less than 50%). ALL ABOVE CRITERIA BY NASCET. No aneurysm. 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 No significant stenosis at the visualized segments. Anterior communicating artery is present. No aneurysm. LEFT MIDDLE CEREBRAL ARTERY: Unremarkable. No significant stenosis at the visualized segments. No aneurysm. LEFT POSTERIOR CEREBRAL ARTERY: Unremarkable. No significant stenosis at the visualized segments. No aneurysm. LEFT VERTEBRAL ARTERY: Unremarkable as visualized. No significant stenosis at the intradural/visualized segments. No aneurysm. BASILAR ARTERY: Unremarkable. No significant stenosis. No aneurysm. OTHER VASCULATURE: See above. MRI/MRA Head ONLY without Contrast IMPRESSION: 1. 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 2. There is calcified plaque formation of the right cavernous carotid artery, with a mild stenosis (less than 50%). ALL ABOVE CRITERIA BY NASCET. 3. There is calcified plaque formation of the left cavernous carotid artery, with a mild stenosis (less than 50%). ALL ABOVE CRITERIA BY NASCET. Electronically Signed: Suraj Blair MD at 20:17 EDT ,
[2022-04-19] MEDS: Lactated Ringers 1,000 ML 75 ML IV (20:17)
[2022-04-19] MEDS: amLODIPine 5 MG Tablet PO (20:19)
[2022-04-19 22:01] LABS: Bedside Glucose 220 mg/dL (74-106)
[2022-04-19] MEDS: Insulin Lispro 100 UNIT/ML INSULN.PEN SC (22:29)
[2022-04-19] MEDS: Atorvastatin Calcium 10 MG Tablet PO (22:29)
[2022-04-19 22:30] LABS: Magnesium 1.7 mg/dL (1.6-2.6); Phosphorus 1.6 mg/dL (2.5-4.9)
[2022-04-19] MEDS: Heparin Injection (Vial) 5,000 UNIT/ML VIAL 5000 UNIT SC (22:30)
[2022-04-20] VITALS (9 sets, daily range): BP systolic 108–120; BP diastolic 58–72; PULSE 64–81; RESP 16–17; TEMP 36.6–37.1; O2SAT 97–98; BMI 24.8
[2022-04-20 06:27] LABS: Absolute Lymphocyte Count 1.02 X10^3/uL (0.83-4.51); Absolute Neutrophil Count 7.3 X10^3/uL (2.0-7.7); Basophil# 0.02 X10^3/uL; Basophil% 0.2 % (0-1); Eosinophil# 0.01 X10^3/uL; Eosinophils% 0.1 % (0-5); Hematocrit 34.8 % (40-54); Hemoglobin 12.1 g/dL (13.0-16.5); Lymphocyte # 1.02 X10^3/ul (0.83-4.51); Lymphocyte % 10.9 % (19-41); Mean Corp Hgb Conc 34.8 g/dL (32-36); Mean Corpuscular Hgb 28.3 pg (27.0-32.0); Mean Corpuscular Volume 81.5 fL (80-94); Mean Platelet Vol. 9.3 fl (6.2-12.0); Monocyte# 0.87 X10^3/uL; Monocyte% 9.3 % (0-10); NRBC Flagged by Analyzer 0 % (0-5); Neutrophil # 7.32 X10^3/uL (2.7-7.7); Neutrophil % 77.8 % (47-70); Platelet Count 297 K/mm3 (150-450); RBC Distribution Width CV 13.8 % (11.6-14.6); RBC Distribution Width SD 40.9 fl (35.1-43.9); Red Blood Count 4.27 M/mm3 (4.6-6.2); White Blood Count 9.4 K/mm3 (4.4-11.0)
[2022-04-20 06:41] LABS: Bedside Glucose 126 mg/dL (74-106)
[2022-04-20 07:25] LABS: Anion Gap 10 (5-15); BUN 21 mg/dL (7-18); BUN/Creat Ratio 16.5 RATIO (10-20); Calcium,Total 8.5 mg/dL (8.5-10.1); Chloride 106 mmol/L (98-107); Cholesterol 84 mg/dL (200); Creatinine, Serum 1.27 mg/dL (0.70-1.30); EST Glomerular Filtration Rate 60 mL/min (>60); Est Glom Filt Rate - Afr Amer 72 mL/min (>60); Estimated Creatinine Clearance 62.04 ml/min; Glucose 139 mg/dL (74-106); High Density Lipoprotein 23 mg/dL; Potassium 2.7 mmol/L (3.5-5.1); Sodium Level 137 mmol/L (136-145); Thyroid Stim Hormone (TSH) 0.32 uIU/mL (0.358-3.74); Triglycerides 83 mg/dL; Very Low Density Lipoprotein 17 mg/dL (5-40)
[2022-04-20 08:27] LABS: Hemoglobin A1c 6.5 % (3.8-5.6)
[2022-04-20] MEDS: Magnesium Chloride 64 MG Delay Rel.Tablet 128 MG PO ×2 (09:26→21:10)
[2022-04-20] MEDS: Losartan Potassium 50 MG Tablet PO (09:27)
[2022-04-20] MEDS: amLODIPine 5 MG Tablet PO (09:28)
[2022-04-20] MEDS: Lactated Ringers 1,000 ML 75 ML IV ×2 (09:31→21:08)
[2022-04-20] MEDS: Heparin Injection (Vial) 5,000 UNIT/ML VIAL 5000 UNIT SC ×2 (10:59→21:10)
[2022-04-20] MEDS: Azithromycin 250 MG Tablet 500 MG PO (10:59)
[2022-04-20 12:11] LABS: Bedside Glucose 131 mg/dL (74-106)
--- NOTE | 2022-04-20 12:30 | CASEMGMT ---
LATIA ORDOÑEZ assessment: Face to Face with patient for initial transition planning/care coordination assessment. RN TIAGO introduced self and role at [facility], pt voices understanding and consents to assessment. Pt is A/Ox4 and answers all questions appropriately.? Pt is sitting up in bed in no distress on room air. Care providers, pharmacy,?and demographics verified. ? Presentation: Pt in ED monday with low K and Na-today with increased confusion, balance off Admitting dx: Confusion PCP: TIP Parikh Specialists: None Preferred Pharmacy: [facility] Insurance: [facility] A/B,AARP Prescription Benefit:?MCR D Living Will/HPOA: Pt has LW/HPOA and is aware that they are not on file at [facility]. Pt's , Lizzie Joseph, is HPOA. LNOK: Lizzie Joseph, /HPOA; Solange Carlson, daughter Living Arrangements: Pt lives with in 1 story home and states no concerns at home. Pt is independent with ADL's. Transportation: Pt drives self and states no transportation concerns. DME/HHC: Pt states no current DME or need for any DME. Pt has no hx of HHC or SNF. Pt states no concerns with going home at time of discharge. Pt is retired. Pt states does not smoke cigarettes. Pt voices no further concerns/needs. CM to follow for any further discharge planning/needs. Advised pt to ask for CM if any further questions/concerns/needs arise, voices understanding. Pt Goal: Home ? Plan: [place] LATIA ORDOÑEZ
--- NOTE | 2022-04-20 16:00 | PN.HOSP_ITS ---
Subjective Subjective Follow-up for confusion, acute encephalopathy, chronic diarrhea. Objective Data Objective Data Vital Signs: Vital Signs Temp Pulse Resp BP Pulse Ox O2 Del Method 98.0 F 68 17 120/66 97 Room Air 04/20/22 14:19 04/20/22 15:01 04/20/22 14:19 04/20/22 14:19 04/20/22 14:19 04/20/22 14:19 Oxygen Delivery Method Room Air Weight: 190 lb 4.143 oz Body Mass Index (BMI) 24.8 Intake & Output: Intake and Output for Last 24 Hours 04/18/22 04/19/22 04/20/22 23:59 23:59 23:59 Intake Total 2492.5 / 2492.5 Output Total 0 / 0 Balance 2492.5 / 2492.5 Lab / Micro Data Result Diagrams: 04/20/22 05:50 04/20/22 05:50 Labs: Laboratory Results - last 24 hr 04/19/22 16:33: POC Glucose 213 H 04/19/22 16:35: WBC 13.4 H, RBC 4.63, Hgb 13.4, Hct 37.8 L, MCV 81.6, MCH 28.9, MCHC 35.4, RDW Std Deviation 40.5, RDW Coeff of John 13.6, Plt Count 334, MPV 8.9, Immature Gran % (Auto) 2.600 H, Neut % (Auto) 81.9 H, Lymph % (Auto) 7.3 L, [place] % (Auto) 7.9, Eos % (Auto) 0.1, Baso % (Auto) 0.2, Absolute Neuts (auto) 11.0 H, Absolute Lymphs (auto) 0.98, Nucleated RBC % 0 04/19/22 16:35: Sodium 136, Potassium 2.9 L, Chloride 104, Carbon Dioxide 24.0, Anion Gap 8, BUN 23 H, Creatinine 1.45 H, Estim Creat Clear Calc 54.34, Est GFR (MDRD) Af Amer 62, Est GFR (MDRD) Non-Af 51 L, BUN/Creatinine Ratio 15.9, Glucose 222 H, Calcium 8.9, Troponin I High Sens 15 04/19/22 16:35: Phosphorus 1.6 L, Magnesium 1.7 04/19/22 17:06: PT 14.9, INR 1.2, APTT 24.0 L 04/19/22 21:50: POC Glucose 220 H 04/20/22 05:50: WBC 9.4, RBC 4.27 L, Hgb 12.1 L, Hct 34.8 L, MCV 81.5, MCH 28.3, MCHC 34.8, RDW Std Deviation 40.9, RDW Coeff of John 13.8, Plt Count 297, MPV 9.3, Immature Gran % (Auto) 1.700 H, Neut % (Auto) 77.8 H, Lymph % (Auto) 10.9 L , [place] % (Auto) 9.3, Eos % (Auto) 0.1, Baso % (Auto) 0.2, Absolute Neuts (auto) 7.3, Absolute Lymphs (auto) 1.02, Nucleated RBC % 0 04/20/22 05:50: Sodium 137, Potassium 2.7 L*, Chloride 106, Carbon Dioxide 21.0, Anion Gap 10, BUN 21 H, Creatinine 1.27, Estim Creat Clear Calc 62.04, Est GFR (MDRD) Af Amer 72, Est GFR (MDRD) Non-Af 60, BUN/Creatinine Ratio 16.5, Glucose 139 H, Calcium 8.5, Triglycerides 83, Cholesterol 84, LDL Cholesterol 44, VLDL Cholesterol 17, HDL Cholesterol 23 L, TSH 0.32 L 04/20/22 05:50: Hemoglobin A1c 6.5 H 04/20/22 06:33: POC Glucose 126 H 04/20/22 11:54: POC Glucose 131 H Micro: Microbiology 04/19/22 22:33 Stool Stool Lactoferrin - Final 04/19/22 22:33 Stool Enteric Bacteriology - Final Campylobacter species 04/19/22 22:33 Stool Stool Occult Blood (MONSERRAT) - Final Occult Blood Positive 04/19/22 22:33 Stool C. difficile DNA Amplification - Final Radiography Diagnostic Testing: Radiology Impression Brain CT 04/19/22 16:35 IMPRESSION: Negative head/brain CT without intravenous contrast. cf called Electronically Signed: Suraj Blair MD at 16:56 EDT , ADDENDUM: 04/19/22 1707 IMPRESSION: Negative head/brain CT without intravenous contrast. cf called N.B. : The above Results were Read Back by Suraj Blair MD to MD Richard, and understanding confirmed on 04/19/2022 17:00:22 (ET). Electronically Signed: Suraj Blair MD at 16:56 EDT , Chest X-Ray 04/19/22 16:35 IMPRESSION: There are no acute findings. Electronically Signed: Suraj Blair MD at 17:23 EDT , Neck MRA 04/19/22 17:48 IMPRESSION: 1. There is calcified plaque formation of the right cavernous carotid artery, with a mild stenosis (less than 50%). ALL ABOVE CRITERIA BY NASCET. 2. There is calcified plaque formation of the left cavernous carotid artery, with a mild stenosis (less than 50%). ALL ABOVE CRITERIA BY NASCET. Electronically Signed: Suraj Blair MD at 20:18 EDT , Brain MRI 04/19/22 18:09 IMPRESSION: Negative MRI brain without intravenous contrast. Electronically Signed: Suraj Blair MD at 20:16 EDT , Head MRA 04/19/22 18:09 IMPRESSION: 1. 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 2. There is calcified plaque formation of the right cavernous carotid artery, with a mild stenosis (less than 50%). ALL ABOVE CRITERIA BY NASCET. 3. There is calcified plaque formation of the left cavernous carotid artery, with a mild stenosis (less than 50%). ALL ABOVE CRITERIA BY NASCET. Electronically Signed: Suraj Blair MD at 20:17 EDT , Physical Exam Narrative Patient states he has seen me before Monday before yesterday instead of yesterday. Otherwise his confusion liberalizes improved. General: Alert, Oriented x3, Cooperative. HEENT: Atraumatic, PERRLA, EOMI, Normocephalic. Mild chronic hearing loss bilateral Oral: No Gingival or Mucosal Lesions/ Ulcerations Neck: Supple, No JVD, Negative Carotid Bruits Lungs: Air entry diminished in bilateral lung bases. No crepitation/rhonchi Cardiovascular: Regular rate, Regular Rhythm, Normal S1, Normal S2, No murmurs Abdomen: Bowel Sounds Present, Soft, Non Tender, Non-Distended : No renal angle tenderness. No suprapubic tenderness. Extremities: No edema, Capillary Refill Less than 3 Seconds Skin: No rashes, No breakdown Musculoskeletal: No Tenderness to Palpation of Joints or Extremities Neurological: Cranial nerves II-XII grossly intact, DTR 2+/4 and Symmetrical Psych/Mental Status: Flat affect. Assessment & Plan Assessment/Plan (1) Confusion: PLAN: This is a 71-year-old Gentleman came to ER for evaluation of confusion, acute onset. 1. Acute onset of confusion/delirium, suggestive of acute encephalopathy exact etiology unclear, most likely multifactorial metabolic, rule out infection: Patient is admitted in PCU on monitored bed. Treat the underlying cause. Patient does not have focal signs and symptoms relating to stroke but stroke needs to be ruled out. Stroke protocol with MRI brain, MRA head and neck, PT OT and speech evaluation. 2D echo ordered. Fasting profile, TSH and A1c tomorrow a.m. Patient was evaluated by [facility] neurology. 04/20: Acute encephalopathy has mostly improved. MRI brain reported negative. MRA head shows calcified plaque of right and left cavernous artery, mild stenosis less than 50%. 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 Fasting profile shows LDL 44, HDL 23. Increase the atorvastatin to 20 mg nightly. TSH low 0.32. Free T4 ordered. Overall his confusion. Related to infectious/metabolic encephalopathy. Acute stroke ruled out Severe hypokalemia, hypophosphatemia: Magnesium 1.7 on lower normal range. Electrolytes are getting replaced. 2. Low-grade fever, etiology unclear: Patient has diarrhea for 6 months. Stool for C. difficile, enteric bacterial panel, occult blood and leukocytes ordered. Blood cultures x2, UA and urine culture ordered. Patient does not have URI or acute urinary tract symptoms. Acute Campylobacter enteritis colonic stool for leucovorin, occult blood positive. Patient also has chronic diarrhea ongoing for 6-month and had leukocytosis on admission therefore decided to treat with azithromycin 500 mg daily for 3 days. Patient's daughter had a lot of questions regarding labs, encephalopathy, diarrhea and I answered questions including review of labs and imaging including MRI and MRA. His brother is retired doctor he had a question about ordering Lyme disease titer. Patient does not have any active signs and symptoms related to Lyme disease. He had tick attachment more than a year ago but does not know the duration. He did not develop any rash. Patient does not have early or late complications of Lyme disease including facial paralysis, cranial nerve neuropathy, mono or oligoarthritis. Diarrhea is not the usual complication of Lyme disease. Discussed with the ID Dr. Baumann. We agreed that there is no indication for the Lyme disease titer. 3. KYE with hypotonic hypovolemic hyponatremia and hypokalemia: BUN/creatinine elevated but improved since previous ED visit on 04/17. Monitor kidney function electrolytes. On 04/17 serum magnesium level was 2.1. Cortisol 19.6. Serum magnesium and phosphorus ordered. IV fluid Ringer lactate ordered. HCTZ on hold since last Monday. 3. Hypertension: Blood pressure in normal range. 4. Diabetes mellitus type 2: Hold for lethargy/sedation or respiratory rate less than 10/min oral hypoglycemic agents. Accu-Chek H&H's coverage Humalog sliding scale. Discontinue if platelet count drops less than 50,000 or hemoglobin less than 8 g% Heparin 5000 subcutaneous twice daily. 04/20: A1c 6.5% glucose is fairly controlled. Total time of the visit including total time spent in counseling or coordination of care, (more than 50% of the total time, spent in obtaining medical information from nurses and other ancillary care providers,explaining to the patient about labs, imaging, diagnosis and management), discussion with ID, review of labs and imaging with patient's family is 40 minutes. Clinical Impression(s) from Imaging Studies Brain CT 04/19/22 16:35 IMPRESSION: Negative head/brain CT without intravenous contrast. cf called Chest X-Ray 04/19/22 16:35 IMPRESSION: There are no acute findings. Neck MRA 04/19/22 17:48 IMPRESSION: 1. There is calcified plaque formation of the right cavernous carotid artery, with a mild stenosis (less than 50%). ALL ABOVE CRITERIA BY NASCET. 2. There is calcified plaque formation of the left cavernous carotid artery, with a mild stenosis (less than 50%). ALL ABOVE CRITERIA BY NASCET. Electronically Signed: Suraj Blair MD at 20:18 EDT , Brain MRI 04/19/22 18:09 IMPRESSION: Negative MRI brain without intravenous contrast. Electronically Signed: Suraj Blair MD at 20:16 EDT , Echocardiogram 04/19/22 18:09 Interpretation Summary Left ventricular systolic function is normal. The estimated ejection fraction is 65 %. Trivial mitral valve insufficiency. Trivial tricuspid valve insufficiency. Trivial pulmonic valve insufficiency. Trivial pericardial effusion. There are no echocardiographic indications of cardiac tamponade. Right ventricular systolic pressure estimated to be 22 mmHg. Diastolic function is indeterminate. Bubble contrast study negative for right to left interatrial shunt. 2D echocardiographic images demonstrate small mobile echodensities within the left ventricle appearing compatible with redundant chordae tendonae. Head MRA 04/19/22 18:09 IMPRESSION: 1. 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 2. There is calcified plaque formation of the right cavernous carotid artery, with a mild stenosis (less than 50%). ALL ABOVE CRITERIA BY NASCET. 3. There is calcified plaque formation of the left cavernous carotid artery, with a mild stenosis (less than 50%). ALL ABOVE CRITERIA BY NASCET. Electronically Signed: Suraj Blair MD at 20:17 EDT , Living will/advanced directive/end of life care: Patient does have living will or advanced directive. His is next of kin and power of employee benefits attorney for him. After discussion of benefits/risks procedures involved with full code, DNR CC arrest and DNR CC, the patient, and daughters opted for full code. Patient does want artificial life support including intubation, tube feed, ventilator and/chest compression, central venous catheter, vasopressor and DC shock if needed Total time spent in [id number] encounter in discussion of advanced directive 16 minutes. Charges/Coding Visit Charges Inpatient E&M: 15159 Subs Hosp L3
[2022-04-20] MEDS: Insulin Lispro 100 UNIT/ML INSULN.PEN SC (16:50)
[2022-04-20 16:56] LABS: Bedside Glucose 160 mg/dL (74-106)
[2022-04-20] MEDS: 0.9% Saline Lock 10 ML Syringe IV (18:49)
[2022-04-20] MEDS: Atorvastatin Calcium 20 MG Tablet PO (21:14)
[2022-04-20 21:40] LABS: Bedside Glucose 125 mg/dL (74-106)
[2022-04-21] VITALS (8 sets, daily range): BP systolic 115–124; BP diastolic 55–77; PULSE 59–75; RESP 16–17; TEMP 36.6–36.7; O2SAT 96–99; BMI 24.8
[2022-04-21 07:15] LABS: ALB/GLOB Ratio 0.5 RATIO (0.9-2.4); AST(SGOT) 23 U/L (15-37); Alanine Aminotransfer ALT/SGPT 28 U/L (16-61); Albumin, Serum 2.3 g/dL (3.2-5.0); Alkaline Phosphatase 50 U/L (45-117); Anion Gap 9 (5-15); BUN 16 mg/dL (7-18); Calcium,Total 8.6 mg/dL (8.5-10.1); Chloride 108 mmol/L (98-107); EST Glomerular Filtration Rate 79 mL/min (>60); Est Glom Filt Rate - Afr Amer 95 mL/min (>60); Estimated Creatinine Clearance 78.79 ml/min; Globulin 4.5 g/dL (2.2-4.2); Glucose 126 mg/dL (74-106); Magnesium 1.8 mg/dL (1.6-2.6); Phosphorus 2.5 mg/dL (2.5-4.9); Potassium 2.9 mmol/L (3.5-5.1); Protein, Total 6.8 g/dL (6.4-8.2); Sodium Level 138 mmol/L (136-145)
[2022-04-21] MEDS: Potassium Chloride Oral Tablet 20 MEQ 40 MEQ PO (08:31)
--- NOTE | 2022-04-21 08:55 | CT_ITS ---
EXAM: CT ABDOMEN AND PELVIS WITHOUT INTRAVENOUS CONTRAST CLINICAL INDICATION: Chronic diarrhea for 5 to 6 weeks. No abdominal pain. No nausea and vomiting. TECHNIQUE: Helically acquired images were obtained of the abdomen and pelvis without intravenous contrast. This CT exam was performed using one or more of the following dose reduction techniques: automated exposure control, adjustment of the mA and/or kV according to patient size, and/or use of iterative reconstruction technique. This report was created using [employer] report generation technology. RADIATION DOSE: CTDIvol = 9.39 mGy, DLP = 485.36 mGy-cm COMPARISON: None. FINDINGS: LOWER THORAX: Unremarkable. Lung bases are clear. No cardiomegaly. No significant pericardial effusion. ABDOMEN: LIVER: Unremarkable. Homogeneous. GALLBLADDER AND BILE DUCTS: Abnormal pericholecystic edema without visible gallstones. No intrahepatic or extrahepatic biliary ductal dilatation. PANCREAS: Unremarkable. No focal cystic mass. SPLEEN: Unremarkable. Normal size without focal cystic or solid mass. ADRENALS: Unremarkable. No nodules. KIDNEYS AND URETERS: 1.9 x 1.7 cm hypodense cyst in the right renal parenchyma with CT number of 7.57 [place] units. 1.8 cm hypodense cyst in the left renal parenchyma with CT number of 1.62 [place] units is simple cyst. No stones or hydronephrosis in both kidneys. Normal renal size and position. STOMACH AND BOWEL: Few diverticula in the sigmoid colon without diverticulitis. No stomach or bowel distention. No focal inflammatory change. PELVIS: APPENDIX: Normal. BLADDER: Unremarkable. REPRODUCTIVE: Unremarkable as visualized. No mass. ABDOMEN and PELVIS: INTRAPERITONEAL SPACE: Unremarkable. No ascites or other fluid collection. No free air. BONES/JOINTS: Unremarkable. No suspicious lytic or blastic abnormality. SOFT TISSUES: Small left inguinal hernia containing only normal fat. VASCULATURE: Minimal calcified plaques along the abdominal aorta and iliac arteries. Abdominal aorta is non-dilated. LYMPH NODES: Unremarkable. No enlarged lymph nodes. CT/Abdomen/Pelvis without Cont IMPRESSION: 1. Abnormal pericholecystic edema without visible gallstones. Gallbladder ultrasound will be helpful if clinically warranted. 2. 1.9 cm cyst in the right kidney and 1.8 cm cyst in the left kidney. They are simple cysts. No follow-up is needed. 3. Few diverticula in the sigmoid colon without diverticulitis. Electronically Signed: Mich Liao MD at 9:53 EDT ,
[2022-04-21] MEDS: Losartan Potassium 50 MG Tablet PO (09:57)
[2022-04-21] MEDS: amLODIPine 5 MG Tablet PO (09:57)
[2022-04-21] MEDS: Magnesium Chloride 64 MG Delay Rel.Tablet 128 MG PO (09:58)
[2022-04-21] MEDS: Azithromycin 250 MG Tablet 500 MG PO (09:58)
[2022-04-21] MEDS: Heparin Injection (Vial) 5,000 UNIT/ML VIAL 5000 UNIT SC (10:03)
[2022-04-21] MEDS: 0.9% Saline Lock 10 ML Syringe IV (10:05)
--- NOTE | 2022-04-21 10:42 | DCINST_ITS ---
Discharge Instructions Diet Discharge Diet: Soft diet (for 5 days) Activity Discharge Activity: May Not Drive Weight Bearing Status: Weight bearing as tolerated Dressing / Incision Call your doctor if you observe: Fever of 101 or Higher, Change in Color, Inability to urinate, Inability to have a bowel movement, Shortness of breath, Dizziness, Fainting spells, Swelling in the ankles, Chest pain, Prolonged hiccupping, Increased palpitations (irregular heartbeat), Calf discomfort and Uncontrolled pain Follow Up Care Test Results: Test results from this visit will be discussed in further detail at your follow- up appointment, if applicable. Discharge Plan Admission Admit Date/Time: 04/20/22 12:08 Primary Reason for Your Visit: Acute encephalopathy, chronic diarrhea, Campylobacter induced Attending Provider: Real Shepard Primary Care Provider: Jair Parikh NP Instructions Additional Instructions / Restrictions: Follow-up BMP with PCP within 1 week Discussed with patient's family member mauricio. Discharge Orders/Prescriptions Prescriptions: New azithromycin 250 mg Tablet 250 mg PO Q24 Qty: 3 0RF Y-Itap-Djoimto 250 mg tablet 1 tab PO TID Qty: 10 0RF potassium chloride 20 mEq tablet extended release 40 meq PO DAILY Qty: 14 0RF magnesium oxide 400 mg magnesium tablet 400 mg PO DAILY Qty: 3 0RF Continued atorvastatin 10 mg tablet 10 mg PO DAILY amlodipine 5 mg tablet 5 mg PO DAILY potassium chloride 20 mEq tablet extended release 20 meq PO DAILY Qty: 20 0RF Label Comments: NEW RX FROM [facility] ER DOC ON 04/17/22. 1 tablet 3 times a day for 2 days then 1 tablet 2 times a day for 2 more days then once a day until your potassium is rechecked this coming we Rx Instructions: 1 tablet 3 times a day for 2 days then 1 tablet 2 times a day for 2 more days then once a day until your potassium is rechecked this coming week losartan 50 mg tablet 50 mg PO DAILY Held glimepiride 2 mg tablet 2 mg PO TID Hold Instructions: Start from April 22, 2022 metformin 500 mg tablet extended release 24 hr 500 mg PO DAILY Hold Instructions: Start from tomorrow, April 22, 2022 Label Comments: PT TAKES 2 TABS IN THE AM AND 1 TAB IN THE PM metformin 500 mg tablet extended release 24 hr 1,000 mg PO DAILY Hold Instructions: Start from April 22, 2022 Label Comments: PT TAKES 2 TABS IN THE AM AND 1 TAB IN THE PM hydrochlorothiazide 12.5 mg tablet 12.5 mg PO DAILY Hold Instructions: Start from April 22, 2022 Label Comments: HELD PER [facility] ER DOC ON 04/17 UNTIL K IS RECHECKED. Referrals / Follow Up: Henrry Lugo MD [STAFF PHYSICIAN] - Within 1 Week (Patient has appointment on Monday on 04/29/2022) FriendLeno DO [STAFF PHYSICIAN] - Within 2 Weeks (Follow-up for chronic diarrhea) Jair Parikh NP, [employer] [Primary Care Provider] - Disposition Disposition (needs filled in before D/C Order can be placed): Home, Self Care
[2022-04-21] MEDS: Insulin Lispro 100 UNIT/ML INSULN.PEN SC (11:46)
[2022-04-21 11:50] LABS: Bedside Glucose 166 mg/dL (74-106)
[2022-04-21] MEDS: Lactated Ringers 1,000 ML 75 ML IV (13:30)
[2022-04-21 14:19] LABS: Erythrocyte Sedimentation Rate 39 mm/hr (0-20)
--- NOTE | 2022-04-21 14:51 | DS.PCM_ITS ---
Providers Date of Admission: 04/20/22 Date of Discharge: 04/21/22 Primary Care Physician: Jair Parikh, ANITHA Reason For Visit: CONFUSION, SUSPICION Diagnosis Discharge Diagnosis (1) Confusion: Status: Acute Code(s): R41.0 - Disorientation, unspecified Medications at Discharge Home Medications amlodipine 5 mg tablet 5 mg PO DAILY blood pressure 02/09/21 atorvastatin 10 mg tablet 10 mg PO DAILY cholesterol 02/09/21 potassium chloride 20 mEq tablet,extended release 20 meq PO DAILY #20 tabs 04/17/22 glimepiride 2 mg tablet 2 mg PO TID DM 04/19/22 hydrochlorothiazide 12.5 mg tablet 12.5 mg PO DAILY FLUID 04/19/22 losartan 50 mg tablet 50 mg PO DAILY BP 04/19/22 metformin 500 mg tablet,extended release 24 hr 1,000 mg PO DAILY DM 04/19/22 metformin 500 mg tablet,extended release 24 hr 500 mg PO DAILY DM 04/19/22 azithromycin 250 mg tablet 250 mg PO Q24 #3 tabs 04/21/22 magnesium oxide 400 mg PO DAILY #3 tabs 04/21/22 potassium chloride 20 mEq tablet,extended release 40 meq PO DAILY #14 tabs 04/21/22 sodium di- and monophosphate-potassium phos monobasic 250 mg tablet (B-Gzcn-Gahbwug) 1 tab PO TID #10 tabs 04/21/22 Hospital Course Summary of Care Provided Hospital Course: (1) Confusion: PLAN: This is a 71-year-old Gentleman came to ER for evaluation of confusion, acute onset. 1. Acute onset of confusion/delirium, suggestive of acute encephalopathy exact etiology unclear, most likely multifactorial metabolic, rule out infection: Patient is admitted in PCU on monitored bed.? Acute encephalopathy resolved. 04/20: Acute encephalopathy has mostly improved.? MRI brain reported negative.? MRA head shows calcified plaque of right and left cavernous artery, mild stenosis less than 50%.? MRA brain reported hypoplastic development of the left A1 segment of the anterior cerebral arteries with an atretic but intact artery.? Fasting profile shows LDL 44, HDL 23.? Increase the atorvastatin to 20 mg nightly.? TSH low 0.32.? ? Overall his confusion.? Related to infectious/me tabolic encephalopathy.? Acute stroke ruled out Severe hypokalemia, hypophosphatemia: Magnesium 1.7 on lower normal range.? Electrolytes are getting replaced. Potassium level slightly improved prescr iption was given for potassium, magnesium and Neutra-Phos. 2.? Low-grade fever, etiology unclear: Patient has diarrhea for 6 months.? Stool for C. difficile, enteric bacterial panel, occult blood and leukocytes ordered.? Blood cultures x2, UA and urine culture ordered.? Patient does not have URI or acute urinary tract symptoms. Acute Campylobacter enteritis colonic stool for leucovorin, occult blood positive.? Patient also has chronic diarrhea ongoing for 6-month and had leukocytosis on admission therefore decided to treat with azithromycin. Patient had CT abdomen without oral and IV contrast and did not find any contributing cause for diarrhea. GI consulted. He ordered labs for celiac antibody, immune 4), fecal fat qualitative ANCA, stool for Giardia, SONI. Prescription given for azithromycin. ? 3.? KYE with hypotonic hypovolemic hyponatremia and hypokalemia: BUN/creatinine elevated but improved since previous ED visit on 04/17.? Monitor kidney function electrolytes.? On 04/17 serum magnesium level was 2.1.? Cortisol 19.6. Patient had IV fluid. HCTZ on hold since last Monday. 04/21 KYE resolved. 3.? Hypertension: Blood pressure in normal range. 4.? Diabetes mellitus type 2: Hold for lethargy/sedation or respiratory rate less than 10/min oral hypoglycemic agents.? Accu-Chek H&H's coverage Humalog sliding scale. Discontinue if platelet count drops less than 50,000 or hemoglobin less than 8 g% Heparin 5000 subcutaneous twice daily. 04/20: A1c 6.5% glucose is fairly controlled. 04/21 can patient can resume glimepiride. Hypoglycemia. Discharge medication reconciliation done. Discharge follow-up instructions completed. Discharge process discussed with the patient and all questions were answered to patient's satisfaction. Total time spent, exact 35 minutes on discharge meds reconciliation, examination, coordination of care with nurses and ancillary staff, review of imaging and blood test and discussion with the patient on follow-up instructions. Clinical Impression(s) from Imaging Studies Brain CT? 04/19/22 16:35 IMPRESSION: Negative head/brain CT without intravenous contrast. cf called Chest X-Ray? 04/19/22 16:35 IMPRESSION: There are no acute findings. ? Neck MRA? 04/19/22 17:48 IMPRESSION: ? 1.? There is calcified plaque formation of the right cavernous carotid artery, with a mild stenosis (less than 50%). ALL ABOVE CRITERIA BY NASCET. ? 2.? There is calcified plaque formation of the left cavernous carotid artery, with a mild stenosis (less than 50%). ALL ABOVE CRITERIA BY NASCET. ? Electronically Signed: Suraj Blair MD at 20:18 EDT , ? Brain MRI? 04/19/22 18:09 IMPRESSION: Negative MRI brain without intravenous contrast. ? Electronically Signed: Suraj Blair MD at 20:16 EDT , ? Echocardiogram? 04/19/22 18:09 Interpretation Summary Left ventricular systolic function is normal. The estimated ejection fraction is 65 %. Trivial mitral valve insufficiency. Trivial tricuspid valve insufficiency. Trivial pulmonic valve insufficiency. Trivial pericardial effusion. There are no echocardiographic indications of cardiac tamponade. Right ventricular systolic pressure estimated to be 22 mmHg. Diastolic function is indeterminate. Bubble contrast study negative for right to left interatrial shunt. 2D echocardiographic images demonstrate small mobile echodensities within the left ventricle appearing compatible with redundant chordae tendonae. ? ? Head MRA? 04/19/22 18:09 IMPRESSION: ? 1.? 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 ? 2.? There is calcified plaque formation of the right cavernous carotid artery, with a mild stenosis (less than 50%). ALL ABOVE CRITERIA BY NASCET. ? 3.? There is calcified plaque formation of the left cavernous carotid artery, with a mild stenosis (less than 50%). ALL ABOVE CRITERIA BY NASCET. ? Electronically Signed: Suraj Blair MD at 20:17 EDT , ? Living will/advanced directive/end of life care: Patient does? have living will or advanced directive.? His is next of kin and power of back digger operator for him.? After discussion of benefits/risks procedures involved with? full code, DNR CC arrest and DNR CC, the patient, and daughters opted for full code. Patient? does want artificial life support including intubation, tube feed, ventilator and/chest compression, central venous catheter, vasopressor and DC shock if needed ?? Total time spent in [id number] encounter in discussion of advanced directive 16 minutes. Weight / BMI Weight Weight: 193 lb 4.8 oz Body Mass Index (BMI) 24.8 ABG / Lab / Microbiology Data Result Diagrams: 04/20/22 05:50 04/21/22 05:39 Laboratory: Laboratory Results - last 24 hr 04/20/22 16:48: POC Glucose 160 H 04/20/22 21:35: POC Glucose 125 H 04/21/22 05:39: Sodium 138, Potassium 2.9 L, Chloride 108 H, Carbon Dioxide 21.0, Anion Gap 9, BUN 16, Creatinine 1.00, Estim Creat Clear Calc 78.79, Est GFR (MDRD) Af Amer 95, Est GFR (MDRD) Non-Af 79, BUN/Creatinine Ratio 16.0, Glucose 126 H, Calcium 8.6, Phosphorus 2.5, Magnesium 1.8, Total Bilirubin 0.60, AST 23, ALT 28, Alkaline Phosphatase 50, Total Protein 6.8, Albumin 2.3 L, Globulin 4.5 H, Albumin/Globulin Ratio 0.5 L 04/21/22 05:39: ESR 39 H 04/21/22 05:39: C-React Prot Ext Range 134.00 H 04/21/22 11:45: POC Glucose 166 H Microbiology: Microbiology 04/19/22 22:33 Stool Stool Lactoferrin - Final 04/19/22 22:33 Stool Enteric Bacteriology - Final Campylobacter species 04/19/22 22:33 Stool Stool Occult Blood (MONSERRAT) - Final Occult Blood Positive 04/19/22 22:33 Stool C. difficile DNA Amplification - Final Radiography Diagnostic Testing: Radiology Impression Echocardiogram 04/19/22 18:09 Interpretation Summary Left ventricular systolic function is normal. The estimated ejection fraction is 65 %. Trivial mitral valve insufficiency. Trivial tricuspid valve insufficiency. Trivial pulmonic valve insufficiency. Trivial pericardial effusion. There are no echocardiographic indications of cardiac tamponade. Right ventricular systolic pressure estimated to be 22 mmHg. Diastolic function is indeterminate. Bubble contrast study negative for right to left interatrial shunt. 2D echocardiographic images demonstrate small mobile echodensities within the left ventricle appearing compatible with redundant chordae tendonae. Ordering Physician: Real Shepard Referring Physician: Jair Parikh Performed By: Dinorah Youssef, RDCS, RVT Abdomen/Pelvis CT 04/21/22 08:55 IMPRESSION: 1. Abnormal pericholecystic edema without visible gallstones. Gallbladder ultrasound will be helpful if clinically warranted. 2. 1.9 cm cyst in the right kidney and 1.8 cm cyst in the left kidney. They are simple cysts. No follow-up is needed. 3. Few diverticula in the sigmoid colon without diverticulitis. Electronically Signed: Mich Liao MD at 9:53 EDT , D/C Instructions Discharge Diet: Soft diet (for 5 days) Weight Bearing Status: Weight bearing as tolerated Call your doctor if you observe: Fever of 101 or Higher, Change in Color, Inability to urinate, Inability to have a bowel movement, Shortness of breath, Dizziness, Fainting spells, Swelling in the ankles, Chest pain, Prolonged h iccupping, Increased palpitations (irregular heartbeat), Calf discomfort and Uncontrolled pain Meaningful Use Info Meaningful Use Diagnoses (Choose all that apply): None applicable Discharge Plan Admission Admit Date/Time: 04/20/22 12:08 Primary Reason for Your Visit: Acute encephalopathy, chronic diarrhea, Campylobacter induced Attending Provider: Real Shepard Primary Care Provider: Jair Parikh NP Instructions Additional Instructions / Restrictions: Follow-up BMP with PCP within 1 week Discussed with patient's family member mauricio. Discharge Orders/Prescriptions Prescriptions: New azithromycin 250 mg Tablet 250 mg PO Q24 Qty: 3 0RF D-Xtbz-Uhjiogn 250 mg tablet 1 tab PO TID Qty: 10 0RF potassium chloride 20 mEq tablet extended release 40 meq PO DAILY Qty: 14 0RF magnesium oxide 400 mg magnesium tablet 400 mg PO DAILY Qty: 3 0RF Continued atorvastatin 10 mg tablet 10 mg PO DAILY amlodipine 5 mg tablet 5 mg PO DAILY potassium chloride 20 mEq tablet extended release 20 meq PO DAILY Qty: 20 0RF Label Comments: NEW RX FROM [facility] ER DOC ON 04/17/22. 1 tablet 3 times a day for 2 days then 1 tablet 2 times a day for 2 more days then once a day until your potassium is rechecked this coming we Rx Instructions: 1 tablet 3 times a day for 2 days then 1 tablet 2 times a day for 2 more days then once a day until your potassium is rechecked this coming week losartan 50 mg tablet 50 mg PO DAILY Held glimepiride 2 mg tablet 2 mg PO TID Hold Instructions: Hold if glucose less than 130 mg/dl. Resume from 04/22/2022 metformin 500 mg tablet extended release 24 hr 500 mg PO DAILY Hold Instructions: Start from tomorrow, April 22, 2022 Label Comments: PT TAKES 2 TABS IN THE AM AND 1 TAB IN THE PM metformin 500 mg tablet extended release 24 hr 1,000 mg PO DAILY Hold Instructions: Start from April 22, 2022 Label Comments: PT TAKES 2 TABS IN THE AM AND 1 TAB IN THE PM hydrochlorothiazide 12.5 mg tablet 12.5 mg PO DAILY Hold Instructions: Hold for 1 week until repeat BMP. Label Comments: HELD PER [facility] ER DOC ON 04/17 UNTIL K IS RECHECKED. Referrals / Follow Up: Henrry Lugo MD [STAFF PHYSICIAN] - Within 1 Week (Patient has appointment on Monday on 04/29/2022) FriendLeno DO [STAFF PHYSICIAN] - Within 2 Weeks (Follow-up for chronic diarrhea) Jair Parikh HISTOPATHOLOGIST, HISTOPATHOLOGIST-C [Primary Care Provider] - Disposition Disposition (needs filled in before D/C Order can be placed): Home, Self Care Charges/Coding Visit Charges Inpatient E&M: 30420 Disch Hosp
[2022-04-21 16:30] LABS: Bedside Glucose 123 mg/dL (74-106)
[2022-04-21 23:48] LABS: T4 Free Direct 1.37 ng/dL (0.76-1.46)
[2022-04-24 16:07] LABS: Endomysial Antibody IgA Negative (Negative)
[2022-04-24 18:07] LABS: Deamidated Gliadin IgA 3 units (0-19); Deamidated Gliadin IgG 2 units (0-19); Immunoglobulin A 37 mg/dL (61-437); t-Transglutaminase IgA <2 U/mL (0-3)
[2022-04-26 13:07] LABS: Anti-Centromere B Ab <0.2 AI (0.0-0.9); Anti-Chromatin <0.2 AI (0.0-0.9); Anti-Jo <0.2 AI (0.0-0.9); Anti-Scleroderma-70 AB <0.2 AI (0.0-0.9); RNP Ab <0.2 AI (0.0-0.9); SJOGREN'S Anti-SS-A test < 0.2 AI (0.0-0.9); SJOGREN'S Anti-SS-B test < 0.2 AI (0.0-0.9); Smith Ab <0.2 AI (0.0-0.9)
[2022-04-26 15:42] LABS: Giardia Lamblia, Stool EIA Negative (Negative)
[2022-04-26 16:19] LABS: Anti-dsDNA Ab <1 IU/mL (0-9)
[2022-04-28 18:27] LABS: Pancreatic Elastase, Fecal 195 (>200)
[2022-05-05 16:50] LABS: Calprotectin, Stool 499 ug/g (0-120); Fats, Neutral Normal (.); Fats, Total Normal (.)
== END 2022-04-21 15:49 | disposition home or self-care (01) | DRG 947 ==
LOC: ED 17:36 → PCU 17:59
PROVIDERS: Family Medicine; Internal Medicine Gastroenterology; Admitting Provider Internal Medicine; Emergency Provider Emergency Medicine; PCP Nurse Practitioner Family; Visit Provider Internal Medicine
DX: R41.0 Disorientation, unspecified (principal); G93.41 Metabolic encephalopathy; A04.5 Campylobacter enteritis; N17.9 Acute kidney failure, unspecified; E87.1 Hypo-osmolality and hyponatremia; E11.69 Type 2 diabetes mellitus with other specified complication; I45.10 Unspecified right bundle-branch block; I10 Essential (primary) hypertension; E78.00 Pure hypercholesterolemia, unspecified; E87.6 Hypokalemia; I65.23 Occlusion and stenosis of bilateral carotid arteries; Z79.84 Long term (current) use of oral hypoglycemic drugs
CPT/HCPCS: 36415; 70450; 70544; 70547; 70551; 71045; 74176; 80048; 80053; 80061; 82274; 82533; 82653; 82705; 82784; 82785; 82962; 83036; 83516; 83630; 83735; 83993; 84100; 84165; 84439; 84443; 84484; 85025; 85610; 85652; 85730; 86140; 86225; 86235; 86255; 86256; 86334; 87040; 87177; 87209; 87329; 87493; 87506; 93005; 93306; 94762; 96360; 99251; 99284; J7030; J7040; J7120; A4216; G0463

== ENCOUNTER → 2022-04-27 | Outpatient (CLI) | payer MEDICARE, OTHER, SELFPAY ==
[2022-04-27 15:25] LABS: Hemoglobin A1c 6.5 % (3.8-5.6)
[2022-04-27 15:48] LABS: Anion Gap 6 (5-15); BUN 12 mg/dL (7-18); BUN/Creat Ratio 10.6 RATIO (10-20); Calcium,Total 9.7 mg/dL (8.5-10.1); Chloride 107 mmol/L (98-107); Cholesterol 135 mg/dL (200); Creatinine, Serum 1.13 mg/dL (0.70-1.30); EST Glomerular Filtration Rate 68 mL/min (>60); Est Glom Filt Rate - Afr Amer 83 mL/min (>60); Glucose 74 mg/dL (74-106); High Density Lipoprotein 32 mg/dL; Potassium 4.6 mmol/L (3.5-5.1); Sodium Level 139 mmol/L (136-145); Triglycerides 115 mg/dL; Very Low Density Lipoprotein 23 mg/dL (5-40)
== END | disposition home or self-care (01) ==
LOC: MFPLAB 12:00
PROVIDERS: PCP Nurse Practitioner Family; Visit Provider Family Medicine
DX: E11.9 Type 2 diabetes mellitus without complications (principal)
CPT/HCPCS: 36415; 80048; 80061; 83036

== ENCOUNTER → 2022-07-11 | Outpatient (CLI) | payer MEDICARE, OTHER, SELFPAY ==
[2022-07-11 11:43] LABS: Erythrocyte Sedimentation Rate 33 mm/hr (0-20)
[2022-07-11 11:45] LABS: Absolute Lymphocyte Count 1.53 X10^3/uL (0.83-4.51); Basophil# 0.03 X10^3/uL; Basophil% 0.5 % (0-1); Eosinophil# 0.18 X10^3/uL; Eosinophils% 2.8 % (0-5); Hematocrit 45.1 % (40-54); Hemoglobin 14.9 g/dL (13.0-16.5); Lymphocyte # 1.53 X10^3/ul (0.83-4.51); Lymphocyte % 24.1 % (19-41); Mean Corpuscular Hgb 29.7 pg (27.0-32.0); Mean Platelet Vol. 10.8 fl (6.2-12.0); Monocyte# 0.56 X10^3/uL; Monocyte% 8.8 % (0-10); NRBC Flagged by Analyzer 0 % (0-5); Neutrophil # 4.03 X10^3/uL (2.7-7.7); Neutrophil % 63.5 % (47-70); Platelet Count 275 K/mm3 (150-450); RBC Distribution Width CV 13.1 % (11.6-14.6); RBC Distribution Width SD 42.8 fl (35.1-43.9); Red Blood Count 5.01 M/mm3 (4.6-6.2); White Blood Count 6.4 K/mm3 (4.4-11.0)
[2022-07-11 12:38] LABS: Vitamin B12 332 pg/mL (211-911)
[2022-07-11 12:55] LABS: ALB/GLOB Ratio 0.8 RATIO (0.9-2.4); AST(SGOT) 18 U/L (15-37); Alanine Aminotransfer ALT/SGPT 17 U/L (16-61); Albumin, Serum 3.8 g/dL (3.2-5.0); Alkaline Phosphatase 63 U/L (45-117); Anion Gap 7 (5-15); BUN 16 mg/dL (7-18); BUN/Creat Ratio 12.4 RATIO (10-20); CRP < 2.90 mg/L (0.0-3.0); Calcium,Total 9.3 mg/dL (8.5-10.1); Chloride 107 mmol/L (98-107); Creatinine, Serum 1.29 mg/dL (0.70-1.30); EST Glomerular Filtration Rate 59 mL/min (>60); Est Glom Filt Rate - Afr Amer 71 mL/min (>60); Glucose 122 mg/dL (74-106); LDH 181 U/L (87-241); Protein, Total 8.8 g/dL (6.4-8.2); Sodium Level 140 mmol/L (136-145); Thyroid Stim Hormone (TSH) 2.29 uIU/mL (0.358-3.74)
[2022-07-12 15:08] LABS: Endomysial Antibody IgA Negative (Negative)
[2022-07-12 15:57] LABS: Immunoglobulin A 28 mg/dL (61-437); t-Transglutaminase IgA <2 U/mL (0-3)
[2022-07-14 08:27] LABS: Pancreatic Elastase, Fecal 144 (>200)
[2022-07-15 20:42] LABS: Calprotectin, Stool 40 ug/g (0-120); Fats, Neutral Normal (.); Fats, Total Normal (.)
[2022-07-15 21:07] LABS: Albumin 3.9 g/dL (2.9-4.4); Alpha-1-Globulins 0.3 g/dL (0.0-0.4); Alpha-2-Globulins 0.8 g/dL (0.4-1.0); Cytoplasmic Ab (C-ANCA) <1:20 titer (Neg:<1:20); Gamma Globulin 2.1 g/dL (0.4-1.8); Immunoglobulin G 2462 mg/dL (603-1613); Immunoglobulin M 32 mg/dL (20-172)
[2022-07-16 09:07] LABS: Immunoglobulin A 30 mg/dL (61-437); Immunoglobulin E 3 IU/mL (6-495)
[2022-07-16 09:08] LABS: Perinuclear Ab (P-ANCA) <1:20 titer (Neg:<1:20)
== END | disposition home or self-care (01) ==
LOC: LAB 09:34
PROVIDERS: PCP Family Medicine; Visit Provider Internal Medicine Gastroenterology
DX: R19.7 Diarrhea, unspecified (principal)
CPT/HCPCS: 36415; 80053; 82607; 82653; 82705; 82784; 82785; 83516; 83615; 83630; 83993; 84165; 84443; 85025; 85652; 86140; 86255; 86256; 86334

== ENCOUNTER 2022-09-21 08:14 | Day surgery (SDC) | payer MEDICARE, OTHER, SELFPAY ==
--- NOTE | 2022-09-21 | COLBX_PTH ---
PATIENT: IRENE STEVENS LOC: EN U#:[id number] AGE/SX: 72/M ROOM: RE09/21/[address]: Dr. Leno Quigley DO : 1950 BED: DIS: 09/21/2022 SPEC #: [id number] RECD: 09/21/22 11:48 STATUS: SYLVIA REHiwot #: [id number] NERIS: 09/21/22 00:[address]: Leno Quigley DEPT: SURGICAL PATHOLOGY RECD BY: Nabil Zhou ENTERED: 09/21/22 11:49 SP TYPE: COLON BX OTHR DR: Dr. Henrry Lugo MD Tissues: A - Ileum, NOS B - Small intestine biopsy C - Cecum, NOS D - COLON BIOPSY E - Ascending colon Procedures: Special Stain Group II Surgery Specimen Level IV Amyloid Stain (control) HEADER OPERATION: Colonoscopy (MAC) with polypectomy and biopsies PRE-OP DIAGNOSIS: Diarrhea, monoclonal gammopathy TISSUE SUBMITTED: A ? Ileocecal valve polyp, B ? Small bowel biopsy, C ? Cecum biopsy, D ? Random colon biopsy, E ? Ascending colon polyp MICROSCOPIC DIAGNOSIS A. Ileocecal valve polyp, biopsy: Consistent with fibrolipomatous polyp. See comment. B. Small bowel, biopsy: No pathologic change. C. Cecum, biopsy: Mild melanosis coli. D. Colon, random biopsy: Mild melanosis coli. E. Ascending colon polyp, biopsy: Fragments of tubular adenoma. AM:gracie 09/22/2022 COMMENT A. Neither hyperplastic nor adenomatous change is identified. Clinical correlation is suggested. MICROSCOPIC DESCRIPTION Slides are reviewed. GROSS DESCRIPTION A - Received in fixative is one container labeled with the patient's name and designated ileocecal valve polyp. The specimen consists of two irregular fragments of light ibarra soft tissue that in aggregate measure 0.6 x 0.6 x 0.2 cm. The specimen is totally submitted in one cassette. B - Received in fixative is one container labeled with the patient's name and designated small bowel biopsy. The specimen consists of one irregular fragment of light ibarra soft tissue that measures 0.5 x 0.5 x 0.1 cm. The specimen is totally submitted in one cassette. C - Received in fixative is one container labeled with the patient's name and designated cecum biopsy. The specimen consists of two irregular fragments of light ibarra soft tissue that in aggregate measure 0.5 x 0.5 x 0.1 cm. The specimen is totally submitted in one cassette. D - Received in fixative is one container labeled with the patient's name and designated random colon biopsy. The specimen consists of multiple irregular fragments of light ibarra soft tissue that in aggregate measure 1 x 0.8 x 0.1 cm. The specimen is totally submitted in one cassette. E - Received in fixative is one container labeled with the patient's name and designated ascending colon polyp. The specimen consists of two irregular fragments of light ibarra soft tissue that in aggregate measure 0.6 x 0.6 x 0.1 cm. The specimen is totally submitted in one cassette. / AM:gracie 09/21/2022 TC:5 [facility]: [id number] x5, [id number] x2 ADDENDUM ADDENDUM ADDENDUM ADDENDUM ADDENDUM 09/27/2022 13:06 ADDENDUM 09/27/2022 13:06 ADDENDUM 09/27/2022 13:06 ADDENDUM 09/27/2022 13:06 ADDENDUM 09/27/2022 13:06 ADDENDUM 10/14/2022 10:27 C & D. No congophilic material is noted in these biopsies on light and polarized microscopy. Congo Red stain with matched control was used in the evaluation of this case. AM:gracie 09/27/2022 B, C, D & E ? No congophilic material identified. Congo red stain with matched control is negative. AM:gracie 10/14/2022
--- NOTE | 2022-09-21 08:31 | HP.PCM_ITS ---
History and Physical Date of Admission: 09/21/22 IRENE STEVENS, is a 72 M who presents to the office today for Follow up. Irene established with this clinic 07.11.22 following [facility] hospitalization. He presented to [facility] ED 04.19.22 with new onset confusion that day which was worsening. Biochemical workup noted hypokalemia, replaced. Brain CT WNL. He was admitted for further workup. During hospitalization it was noted he was having diarrhea for 6-8 weeks. Stool studies performed 04.19.22 with positive campylobacter, blood and lactofer rin; C.Difficile WNL. CT abd/pel 04.21.22 noting abnormal pericholecystic edema without gallstones, recommend US; renal cyst; colonic diverticulosis. Biochemical workup ESR H39, CRP H134, albumin L2.3, IgA L37. Calprotectin H499, Pancreatic elastase L195. Giardia, fecal fats, celiac, SONI comp, ANCA, IgG/M WNL. He was discharged 04.21.22 with azithromycin, potassium and magnesium. PMH DMII; hyperlipidemia. Stool studies campylobacter +. Azithromycin. Biochemical workup CRP, LDH, CBC, ANCA, celiac, Vit B12, TSH, CMP, IgM without pertinent abnormality. MICHELLE Gamma globulin H2.1, IgG H2462, IgA L30, IgE L3, ESR H33 Stool studies ova parasite and giardia were cancelled, calprotectin, fecal fat, lactoferrin WNL Elastase L144 Referred to [facility] oncology department per patient preference. Oncology [facility] seen 08.08.22 and diagnosed with monoclonal gammopathy, with unexplained diarrhea and lambda light chain, full workup for plasma cell dyscrasia/amyloidosis was warranted. With additional bloodwork and stool testing ordered, CT scan, whole-body bone survey, bone marrow biopsy and recommendation for repeat colonoscopy ? CT whole body 08.11.22 nonspecific fat stranding of LLQ with focus of soft tissue, possible enlarged lymph node; recommend f/u PET or CT scan. ? Bone marrow biopsy 08.24.22 finding plasma cell neoplasm (lambda), cellular bone marrow with trilineage hematopoiesis. ? CT abd/pel 08.26.22 noting nonspecific mesenteric stranding with probably a single mildly enlarged mesenteric lymph node; well-defined abdominal mass, likely extrahepatic but contiguous to liver; recommend MRI of liver; small splenic and intrahepatic densities, likely benign; right lower lobe pulmonary nodule. Oncology [facility] seen 09.04.22 Plan LV 07.11.22: Diarrhea ? biochemical workup and stool testing. Continues to have one watery sand-like BM each day and some bloating prior to his forceful, ?projectile? BM. ROS Const Constitutional: No fatigue, fever(s), frequent falls, headache(s) or weight change ENT ENT: No headache(s) or difficulty swallowing Cardio Cardiology: No leg pain with exertion Gastro GI: Positive for bloating, change in bowel habits and diarrhea; No abdominal pain, constipation, heartburn, difficulty swallowing, Vomiting blood/hematemesis, Blood in stool, nausea/dyspepsia or vomiting Musc Musculoskeletal: No abnormal gait, joint pain, back pain, joint swelling, muscle cramps, muscle weakness, numbness, stiffness, tingling, Arthritis, sciatica, leg pain at night or leg pain with exertion Skin Skin: No dry skin, lesions, itchy eyes or rash Neuro Neurology: No abnormal gait, dizziness, frequent falls, headache(s), numbness, tingling, tremor(s), Increased tone in limbs, paralysis or seizures Psych Psychiatric: No anxiety, No depression, No paranoia, No Behavioral Problems, No Compulsive Behavior, No hyperactivity, No inattentiveness, No obsessions/compulsions, Positive for Temper Tantrums and No suicidal ideation Endo Endocrine: No fatigue or weight change Aller/Imm Allergy/Immunologic: No itchy eyes Jack/Lymp Hematologic/Lymphatic: No easy bleeding or easy bruising Exam Const General: cooperative and comfortable Nutritional Appearance: average body habitus and well nourished [facility] Head: normal to inspection Ears: hearing grossly normal bilaterally Nose: external nose normal Face and sinus: normal facial exam Mouth: oral mucosae normal Throat: posterior oropharynx normal Eyes General: appearance normal, both eyes and all related structures Neck Neck: normal visual inspection Chest Chest palpation & inspection: normal inspection of the chest and normal palpation of entire chest wall Resp Effort & Inspection: normal respiratory effort Auscultation: Bilateral: Clear to Auscultation Cardio Palpation: normal PMI Rate: regular rate Rhythm: regular rhythm GI Inspection: normal to inspection Auscultation: normal bowel sounds Percussion: normal to percussion Palpation: no hepatosplenomegaly Skin General: no rashes or lesions noted Neuro General: patient alert Extrem General: normal to inspection Psych Affect: normal affect Quality Reporting Tobacco Screening (CMS 138) Smoking Status: Never smoker Assessment and Plan Assessment and Plan (1) Diarrhea: ?Status:?Chronic ?Plan: 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 This type of amyloidosis is the prominent type involving the gastrointestinal tract. Monoclonal gammopathy of undetermined significance is the most common plasma cell disorder and a known precursor of more serious diseases.? Differential diagnosis for his loose bowel movements microscopic colitis, collagenous colitis, lymphocytic colitis, plasma cell dyscrasia.? She will undergo colonoscopy and little over a week to evaluate his lower GI tract. His repeat ESR and CRP as it is elevated. (2) Gammopathy, monoclonal: ?Status:?Acute I have examined the patient and the H&P has been reviewed. There are no clinical changes since date of exam.
[2022-09-21 08:53] VITALS: BP 144/78; PULSE 74; RESP 18; TEMP 36.2; O2SAT 96; BMI 25.9
[2022-09-21 09:26] LABS: Bedside Glucose 144 mg/dL (74-106)
[2022-09-21 10:10] VITALS: BP 112/60; BP 144/78; PULSE 67; RESP 16; TEMP 36.7; O2SAT 96
[2022-09-21 10:15] VITALS: BP 108/62; BP 144/78; PULSE 69; RESP 18; O2SAT 97
--- NOTE | 2022-09-21 10:16 | OP.COLON_ITS ---
Patient Name: Oseas Joseph Procedure Date: 09/21/2022 9:24 AM Date of : 1950 Age: 72 Procedure: Colonoscopy Indications: Chronic diarrhea Providers: Leno Quigley DO Medicines: Monitored Anesthesia Care Patient Profile: This is a 72 year old male. Refer to note in patient chart for documentation of history and physical. Last Colonoscopy: 1 year ago. Complications: No immediate complications. Procedure: Pre-Anesthesia Assessment: - Prior to the procedure, a History and Physical was performed, and patient medications and allergies were reviewed. The patient is competent. The risks and benefits of the procedure and the sedation options and risks were discussed with the patient. All questions were answered and informed consent was obtained. Patient identification and proposed procedure were verified by the physician in the pre-procedure area. Mental Status Examination: alert and oriented. Airway Examination: normal oropharyngeal airway and neck mobility. Respiratory Examination: clear to auscultation. CV Examination: normal. Prophylactic Antibiotics: The patient does not require prophylactic antibiotics. Prior Anticoagulants: The patient has taken no previous anticoagulant or antiplatelet agents. ASA Grade Assessment: II - A patient with mild systemic disease. After reviewing the risks and benefits, the patient was deemed in satisfactory condition to undergo the procedure. The anesthesia plan was to use monitored anesthesia care (MAC). Immediately prior to administration of medications, the patient was re-assessed for adequacy to receive sedatives. The heart rate, respiratory rate, oxygen saturations, blood pressure, adequacy of pulmonary ventilation, and response to care were monitored throughout the procedure. The physical status of the patient was re-assessed after the procedure. After I obtained informed consent, the scope was passed under direct vision. Throughout the procedure, the patient's blood pressure, pulse, and oxygen saturations were monitored continuously. The colonoscope was introduced through the anus and advanced to the terminal ileum. The colonoscopy was performed without difficulty. The patient tolerated the procedure well. The quality of the bowel preparation was fair. Scope In: 9:29:04 AM Scope Withdrawal Time 0 hours 16 minutes 2 seconds Scope Out: 10:02:24 AM Total Procedure Duration Time 0 hours 33 minutes 20 seconds Findings: The perianal and digital rectal examinations were normal. A 6 mm polyp was found in the ileocecal valve. The polyp was sessile. The polyp was removed with a hot snare. Resection and retrieval were complete. Verification of patient identification for the specimen was done. Estimated blood loss was minimal. A 5 mm polyp was found in the ascending colon. The polyp was sessile. The polyp was removed with a hot snare. Resection and retrieval were complete. Verification of patient identification for the specimen was done. Estimated blood loss was minimal. An area of moderately congested mucosa was found in the descending colon, at the splenic flexure, in the ascending colon and in the cecum. Biopsies were taken with a cold forceps for histology. Verification of patient identification for the specimen was done. Estimated blood loss was minimal. Multiple small and large-mouthed diverticula were found in the recto-sigmoid colon, sigmoid colon and descending colon. A moderate amount of semi-liquid stool was found in the rectum, in the sigmoid colon, in the descending colon and at the hepatic flexure. Fluid aspiration was performed through the scope suction channel. The amount of fluid collected was 50 mL. The fluid was opaque. Sample(s) were sent for bacterial cultures and Clostridium difficile. Verification of patient identification for the specimen was done. Estimated blood loss was minimal. The terminal ileum appeared normal. Biopsies were taken with a cold forceps for histology. Verification of patient identification for the specimen was done. Estimated blood loss was minimal. Impression: - Preparation of the colon was fair. - One 6 mm polyp at the ileocecal valve, removed with a hot snare. Resected and retrieved. - One 5 mm polyp in the ascending colon, removed with a hot snare. Resected and retrieved. - Congested mucosa in the descending colon, at the splenic flexure, in the ascending colon and in the cecum. Biopsied. - Diverticulosis in the recto-sigmoid colon, in the sigmoid colon and in the descending colon. - Stool in the rectum, in the sigmoid colon, in the descending colon and at the hepatic flexure. Fluid aspiration performed. - The examined portion of the ileum was normal. Biopsied. Recommendation: - Discharge patient to home. - Resume previous diet. - Continue present medications. - Await pathology results. - Repeat colonoscopy in 3 years for surveillance. Procedure Code(s): --- Professional --- 88121, Colonoscopy, flexible; with removal of tumor(s), polyp(s), or other lesion(s) by snare technique 79362, 59, Colonoscopy, flexible; with biopsy, single or multiple CPT copyright 2017 [employer]. All rights reserved. The codes documented in this report are preliminary and upon centrifugal supervisor review may be revised to meet current compliance requirements. Leno Quigley DO 09/21/2022 10:16:08 AM This report has been signed electronically. Number of Addenda: 0 Note Initiated On: 09/21/2022 9:24 AM
--- NOTE | 2022-09-21 10:17 | OP.CCLET_ITS ---
09/21/2022 Henrry Lugo MD [address] [phone] Re : Colonoscopy procedure for Oseas Jake Dear Dr. Lugo This procedure was performed on Wednesday, September 21, 2022. My impressions and recommendations are as follows: Impressions : - Preparation of the colon was fair. - One 6 mm polyp at the ileocecal valve, removed with a hot snare. Resected and retrieved. - One 5 mm polyp in the ascending colon, removed with a hot snare. Resected and retrieved. - Congested mucosa in the descending colon, at the splenic flexure, in the ascending colon and in the cecum. Biopsied. - Diverticulosis in the recto-sigmoid colon, in the sigmoid colon and in the descending colon. - Stool in the rectum, in the sigmoid colon, in the descending colon and at the hepatic flexure. Fluid aspiration performed. - The examined portion of the ileum was normal. Biopsied. Recommendations : - Discharge patient to home. - Resume previous diet. - Continue present medications. - Await pathology results. - Repeat colonoscopy in 3 years for surveillance. My findings are described in the full procedure note, which is enclosed. If I can be of further assistance, please feel free to contact me at . Sincerely, Leno Quigley, 09/21/2022 10:16:08 AM This report has been signed electronically.
[2022-09-21 10:20] VITALS: BP 122/64; BP 144/78; PULSE 61; RESP 16; O2SAT 98
[2022-09-21 10:27] VITALS: BP 122/64; BP 144/78; PULSE 64; RESP 18; TEMP 37.3; O2SAT 97
[2022-09-21 10:45] VITALS: BP 144/78
== END 2022-09-21 10:49 | disposition home or self-care (01) ==
LOC: EN 08:16 → AC 08:16
PROVIDERS: PCP Family Medicine; Referring Provider Family Medicine; Visit Provider Internal Medicine Gastroenterology
PROC: 0DJD8ZZ Inspection of Lower Intestinal Tract, Via Natural or Artificial Opening Endoscopic (ICD-10-PCS; CPT 45378; principal; 2022-09-21 09:25)
DX: D12.2 Benign neoplasm of ascending colon (principal); K63.89 Other specified diseases of intestine; K57.30 Diverticulosis of large intestine without perforation or abscess without bleeding; D47.2 Monoclonal gammopathy; I10 Essential (primary) hypertension; E78.00 Pure hypercholesterolemia, unspecified; Z79.899 Other long term (current) drug therapy; Z79.84 Long term (current) use of oral hypoglycemic drugs
CPT/HCPCS: 45385; 45380; 82962; 87493; 87506; 88305; 88313; J7120; J2405

== ENCOUNTER 2022-12-16 15:22 | Emergency (ER) | payer MEDICARE, OTHER, SELFPAY ==
[2022-12-16 15:23] VITALS: BP 143/76; PULSE 64; RESP 18; TEMP 36.3; O2SAT 97; BMI 25.3
--- NOTE | 2022-12-16 16:34 | EDS_ITS ---
HPI History of Present Illness HPI Narrative: Patient presents with pain and swelling to his right lower extremity that has been getting worse over the past 2 days. Patient states he was told by Dr. Beverly to come to the emergency department to make sure he does not have a blood clot in his leg. Patient describes his pain as aching. Patient states it has been waxing and waning over the past couple days. Patient states it is worse with certain movements such as getting in and out of a car. Patient states it is better with rest. Patient denies any fevers or chills. Patient admits to some weakness in his right leg that has been constant since his most recent chemotherapy treatment. Chief Complaint: Lower Extremity Injury Informant: patient Onset/Context/Timing Onset: Days (2) Context: Gradual Onset Timing: Continuous Quality of Pain: Aching Location: Right lower extremity Worsened by: Certain movements such as getting in and out of a car Relieved by: Rest Associated Symptoms Associated Symptoms: Positive for Weakness; Negative for Parasthesia or Loss of Funtion PFSH [facility] Medical History Diabetes mellitus High cholesterol History of echocardiogram History of skin cancer HTN (hypertension) Hypokalemia Multiple myeloma Non-smoker Open wound RBBB Restless legs Wears glasses Home Medications amlodipine 5 mg tablet 5 mg PO DAILY blood pressure 02/09/21 [History Last Taken 09/20/22] atorvastatin 10 mg tablet 10 mg PO DAILY cholesterol 02/09/21 [History Last Taken 09/20/22] glimepiride 2 mg tablet 2 mg PO TID DM 04/19/22 [History Last Taken 09/20/22] losartan 50 mg tablet 50 mg PO DAILY BP 04/19/22 [History Last Taken 09/20/22] clonazepam 0.5 mg tablet 0.5 mg PO QHS 09/16/22 [History Last Taken 09/20/22] psyllium husk 0.4 gram capsule (Metamucil) 0.4 g PO DAILY 09/16/22 [History Last Taken 09/20/22] rvcxwg-dfblbelv-eczdsyt 40,000-126,000-168,000 unit capsule, delay rel (Zenpep) See Rx Instructions PO .COMPLEX #320 caps 09/26/22 [Rx Last Taken Unknown] linaclotide 145 mcg capsule (Linzess) 145 mcg PO DAILY #30 caps 12/05/22 [Rx Last Taken Unknown] Allergy/AdvReac Type Severity Reaction Status Date / Time No Known Allergies Allergy Verified 09/21/22 08:51 Family History (Updated 07/11/22 @ 08:34 by Ching Cat) Other Diabetes Hypertension Surgical History History of wisdom tooth extraction Hx of hernia repair (~1965) Social History Smoking Status: Never smoker alcohol intake: current alcohol intake frequency: a few times a week Alcohol type: beer substance use type: does not use ROS ROS ED Constitutional Constitutional ED: Denies chills or fever(s) Eyes Eyes: Denies blurry vision or change in vision ENT ENT ED: Denies rhinorrhea or sore throat Cardiovascular Cardiovascular: Denies chest pain or palpitations Respiratory/Chest Respiratory/Chest: Denies cough or dyspnea Gastrointestinal Gastrointestinal: Denies nausea or vomiting Genitourinary Genitourinary ED: Denies dysuria or hematuria Musculoskeletal Musculoskeletal: Reports back pain; Denies neck pain Integumentary Denies abscess or rash Neurologic Neurologic: Reports weakness; Denies headache(s) Allergic/Immunologic Allergic/Immunologic ED: Denies mouth swelling or urticaria EXAM Physical Exam Const Vital Signs: 12/16/22 15:23 12/16/22 18:27 Temperature 97.3 F L Temperature Source Temporal Pulse Rate 64 Respiratory Rate 18 16 Blood Pressure 143/76 H Blood Pressure Mean 98 Pulse Ox 97 Oxygen Delivery Method Room Air Positive well nourished and well developed General Appearance ED: well developed and NAD HEENT Reports moist mucous membranes Neck full ROM and supple Extremity Extremity Narrative: There is mild tenderness over the right lower extremity. There is mild edema. There is no bony crepitance or step-off. There is no pain with plantarflexion and dorsiflexion of the right ankle. Posterior tibial and pedal pulses are equal bilaterally. Neuro oriented x3, CN's II-XII intact bilaterally, moves all extremities and no sensory deficits noted Sensorium / Orientation: alert Motor Exam: strength 5/5 throughout MDM MDM MDM Narrative Medical decision making narrative: Differential diagnosis includes DVT of the right lower extremity, and neuropathy. Venous duplex of the right lower extremity will be obtained to assess for DVT. Radiography Diagnostic Testing: Clinical Impression(s) from Imaging Studies Venous Duplex 12/16/22 16:49 IMPRESSION: Normal right lower extremity duplex venous ultrasound. Electronically Signed: Brenda Gilbert MD at 18:03 EST , Duplex of the right lower extremity was obtained. There is no evidence of DVT. This was interpreted by the radiologist and was reviewed by myself. Treatment and Re-Evaluation Narrative: Patient was advised of his findings. Patient was instructed to keep his leg elevated. Patient was instructed to follow-up with his primary care physician in 5 to 7 days. Patient understood and was agreeable with the plan. All questions were answered. Discharge Plan Triage Chief Complaint: Lower Extremity Injury ED Provider: Gabriel Howard Dx/Rx/DC Orders Clinical Impression: Edema of right lower extremity, Multiple myeloma Prescriptions: No Action atorvastatin 10 mg tablet 10 mg PO DAILY amlodipine 5 mg tablet 5 mg PO DAILY Linzess 145 mcg capsule 145 mcg PO DAILY Qty: 30 2RF Rx Instructions: take 30 minutes prior to first intake of the day. losartan 50 mg tablet 50 mg PO DAILY glimepiride 2 mg tablet 2 mg PO TID Hold Instructions: Hold if glucose less than 130 mg/dl. Resume from 04/22/2022 clonazepam 0.5 mg tablet 0.5 mg PO QHS psyllium husk [Metamucil] 0.4 gram Capsule 0.4 g PO DAILY Zenpep 40,000-126,000- 168,000 unit capsule,delayed release(DR/EC) See Rx Instructions PO .COMPLEX Qty: 320 11RF Rx Instructions: take 1-2 with snacks and 2-3 with meals. Take the higher dose with higher fat content meals. Primary Care Provider: Henrry Lugo Referrals: Henrry Lugo MD [Primary Care Provider] - 5-7 Days Disposition Disposition: Home, Self Care
--- NOTE | 2022-12-16 16:49 | US_ITS ---
EXAM: US DUPLEX RIGHT LOWER EXTREMITY VEINS CLINICAL INDICATION: pain rt LE TECHNIQUE: Real-time duplex ultrasound scan of the right lower extremity veins integrating B-mode two-dimensional vascular structure, Doppler spectral analysis, color flow Doppler imaging and compression. This report was created using [employer] report yoone technology. COMPARISON: None. FINDINGS: DEEP VEINS: Unremarkable. No DVT in the visualized common femoral, femoral, proximal deep femoral or popliteal veins. The veins demonstrate normal color flow, are normally compressible, with normal phasic flow and/or augmentation response. SUPERFICIAL VEINS: Unremarkable. No thrombus in the visualized great saphenous vein. SOFT TISSUES: No acute findings. No popliteal cyst. US/Venous Duplex Imag/Limited/Uni IMPRESSION: Normal right lower extremity duplex venous ultrasound. Electronically Signed: Brenda Gilbert MD at 18:03 EST Reading Location ID and State: [id number] / Tel , Service support ,
[2022-12-16 18:27] VITALS: RESP 16
== END 2022-12-16 18:55 | disposition home or self-care (01) ==
PROVIDERS: Emergency Provider Emergency Medicine; PCP Family Medicine; Visit Provider Emergency Medicine
DX: R60.0 Localized edema (principal); C90.00 Multiple myeloma not having achieved remission; E11.9 Type 2 diabetes mellitus without complications; E78.00 Pure hypercholesterolemia, unspecified; I10 Essential (primary) hypertension; Z79.899 Other long term (current) drug therapy; Z79.84 Long term (current) use of oral hypoglycemic drugs
CPT/HCPCS: 93971; 99282

== ENCOUNTER → 2023-01-02 | Outpatient (CLI) | payer MEDICARE, OTHER, SELFPAY ==
--- NOTE | 2023-01-02 14:00 | RAD_ITS ---
EXAM: Left hip injection HISTORY: PAIN IN LEFT HIP COMPARISON: None Technique: Fluoroscopically guided left hip injection 26 seconds of fluoroscopy time, 1 cm film obtained, dosage was 9.16mGy FINDINGS: After informed consent was obtained including risks and benefits of the procedures to include infection and bleeding. Appropriate site for left hip injection was determined using fluoroscopic guidance, the area was marked, prepped and draped in a sterile manner. 1% Xylocaine was used as local anesthetic. Under fluoroscopic guidance, a 25-gauge spinal needle was advanced into the left hip capsule without difficulty. A cocktail of 8 mL bupivacaine, and 2 mL Kenalog was then advanced into the left hip capsule without difficulty. Patient tolerated the procedure well with no complications. RAD/Inj/Asp Gómez Jt Should/Hip/Knee IMPRESSION: Successful fluoroscopically guided left hip injection Electronically Signed: Rodríguez Nolasco MD at 15:00 EDT ,
[2023-01-02] MEDS: Lidocaine 2% (5ml sdv) 5 ML VIAL.MPF INFILT (14:19)
[2023-01-02] MEDS: Triamcinolone Acetonide 40 MG/ML Vial 80 MG INTRAARTIC (14:25)
[2023-01-02] MEDS: Bupivacaine 0.25% 30 ML Vial 8 ML OPERA.SITE (14:25)
== END | disposition home or self-care (01) ==
LOC: RAD 13:38
PROVIDERS: PCP Family Medicine; Visit Provider Orthopaedic Surgery
DX: M25.552 Pain in left hip (principal)
CPT/HCPCS: 20610; 77002

== ENCOUNTER 2023-01-16 09:57 | Observation (INO) | payer MEDICARE, OTHER, SELFPAY ==
[2023-01-16] VITALS (10 sets, daily range): BP systolic 119–152; BP diastolic 73–97; PULSE 70–115; RESP 14–26; TEMP 36.2–36.8; O2SAT 95–100; BMI 26.7; BMI 26.4
--- NOTE | 2023-01-16 10:28 | EKG12_ITS ---
Test Reason : SOB Blood Pressure : / mmHG Vent. Rate : 082 BPM Atrial Rate : 082 BPM P-R Int : 142 ms QRS Dur : 138 ms QT Int : 408 ms P-R-T Axes : 048 -45 -21 degrees QTc Int : 476 ms Normal sinus rhythm Left axis deviation Right bundle branch block Inferior infarct , age undetermined Abnormal ECG Confirmed by NIRMAL GREENBERG, NEETA ([id number]), editorial project manager TK GUADALUPE ([id number]) on 01/18/2023 9:49:02 AM Referred By: MARLENI Confirmed By:NEETA KINNEY MD
--- NOTE | 2023-01-16 10:28 | RAD_ITS ---
STUDY: X-RAY CHEST REASON FOR EXAM: Male, 72 years old. Chest pain TECHNIQUE: Single AP portable view of the chest. COMPARISON: Comparison is made with prior examination dated April 19, 2022. FINDINGS: The lungs are clear and expanded. There is no demonstrated pleural abnormality. Normal size heart. Normal mediastinum and clare. Normal visualized pulmonary arteries. There is atherosclerotic tortuosity of the aortic arch and descending thoracic aorta. There are diffuse degenerative changes of the visualized thoracic spine. Normal visualized ribs, clavicles, and shoulders. There is no demonstrated abnormality of the visualized soft tissue structures of the upper abdomen. RAD/Chest 1 View (Portable) IMPRESSION: No acute abnormality is seen. Electronically Signed: Glen Mg MD at 11:31 EDT ,
--- NOTE | 2023-01-16 10:29 | EDS_ITS ---
HPI History of Present Illness Chief Complaint: Shortness of Breath Informant: patient and spouse/S.O. Onset/Context/Timing Onset: Weeks Context: gradual Timing: Continuous Quality: Positive for Dyspnea on exertion Current Severity: Mild Maximum Severity: Mild Worsened by: Nothing Relieved by: Nothing Associated Symptoms Negative for cough Chest Pain: Positive for Continuous Narrative Narrative: 72-year-old male history of multiple myeloma, diabetes, hypertension. Currently being treated for multiple myeloma with a bone strengthening medication. He has had several times before. His last treatment was about 2 weeks ago and since that time he has had just chest tightness. Is basically constant. Some mild shortness of breath. No hemoptysis. No pleuritic pain. No leg pain or swelling. No recent travel or surgery. No recent mobilization or hospitalization. He has never had a DVT or PE. His oncologist office sent him in for further evaluation. He denies any nausea vomiting diarrhea. He denies any fever or chills. He denies any melena. PE Risk Factors: Positive for Cancer; Negative for OCP + Smoking + > 35, Prior DVT or PE, Recent immobilization, Recent surgery or Recent travel Prior similar symptoms: No Recent Illness/Hospitalization: No PFSH PFS Medical History Diabetes mellitus High cholesterol History of echocardiogram History of skin cancer HTN (hypertension) Hypokalemia Multiple myeloma Non-smoker Open wound RBBB Restless legs Wears glasses Home Medications amlodipine 5 mg tablet 5 mg PO DAILY blood pressure 02/09/21 [History Last Taken 09/20/22] atorvastatin 10 mg tablet 10 mg PO DAILY cholesterol 02/09/21 [History Last Taken 09/20/22] glimepiride 2 mg tablet 2 mg PO TID DM 04/19/22 [History Last Taken 09/20/22] losartan 50 mg tablet 50 mg PO DAILY BP 04/19/22 [History Last Taken 09/20/22] clonazepam 0.5 mg tablet 0.5 mg PO QHS 09/16/22 [History Last Taken 09/20/22] psyllium husk 0.4 gram capsule (Metamucil) 0.4 g PO DAILY 09/16/22 [History Last Taken 09/20/22] mayvoy-ckwphzxl-kzwhfbu 40,000-126,000-168,000 unit capsule, delay rel (Zenpep) See Rx Instructions PO .COMPLEX #320 caps 09/26/22 [Rx Last Taken Unknown] linaclotide 145 mcg capsule (Linzess) 145 mcg PO DAILY #30 caps 12/05/22 [Rx Last Taken Unknown] acyclovir 400 mg tablet 400 mg PO BID 01/16/23 [History Last Taken Unknown] aspirin 81 mg tablet 81 mg PO DAILY 01/16/23 [History Last Taken Unknown] Allergy/AdvReac Type Severity Reaction Status Date / Time No Known Allergies Allergy Verified 01/16/23 10:02 Family History Other Diabetes Hypertension Surgical History History of wisdom tooth extraction Hx of hernia repair (~1965) Social History Smoking Status: Never smoker alcohol intake: current alcohol intake frequency: a few times a week Alcohol type: beer substance use type: does not use ROS ROS ED ROS Narrative Chest tightness. Shortness of breath. Review of Systems ROS Unobtainable: Denies due to encephalopathy Constitutional Constitutional ED: Denies chills or fever(s) Eyes Eyes: Denies blurry vision ENT ENT ED: Denies ear pain, rhinorrhea or sore throat Cardiovascular Cardiovascular: Reports chest pain; Denies palpitations or racing heartbeat Respiratory/Chest Respiratory/Chest: Reports dyspnea; Denies cough Gastrointestinal Gastrointestinal: Denies abdominal pain, constipation, diarrhea, melena, nausea or vomiting Genitourinary Genitourinary ED: Denies dysuria or hematuria Musculoskeletal Musculoskeletal: Denies arthralgias Integumentary Denies abscess Neurologic Neurologic: Denies headache(s) Psychiatric Psychiatric: Denies anxiety or depression Endocrine Endocrinology: Denies cold intolerance Allergic/Immunologic Allergic/Immunologic ED: Denies mouth swelling or tongue swelling EXAM Physical Exam Narrative Exam Narrative: Well-appearing 72-year-old male. Vital signs stable afebrile. Pulse ox 96% on room air no signs hypoxia. Heart rate 88. at bedside. H EENT exam unremarkable. Neck nontender no JVD. No lymphadenopathy. Lungs clear to auscultation bilaterally. Heart regular rhythm rate about 85 no murmur. Chest wall nontender. Abdomen soft nontender. Moving all 4 extremities. Calves are nontender without edema or cords. Neurologically is awake alert with no focal motor deficits. Const Vital Signs: 01/16/23 09:59 01/16/23 11:40 01/16/23 11:40 Temperature 97.8 F Temperature Source Temporal Pulse Rate 88 76 Respiratory Rate 14 21 H Respiratory Effort Respiratory Depth Respiratory Pattern Blood Pressure 127/84 H 152/73 H Blood Pressure Mean 98 99 Pulse Ox 96 95 Oxygen Delivery Method Room Air Room Air Room Air Oxygen Flow Rate (L/min) 95 01/16/23 11:40 Temperature Temperature Source Pulse Rate Respiratory Rate Respiratory Effort Short of Breath Respiratory Depth Normal Respiratory Pattern Normal Blood Pressure Blood Pressure Mean Pulse Ox Oxygen Delivery Method Room Air Oxygen Flow Rate (L/min) Positive well nourished and well developed; Negative for obese, cachectic, contractures or unkempt General Appearance ED: well developed and NAD; Negative for unkempt, cachectic, contractures or pallor Nutritional Appearance: Negative for cachectic or obese HEENT Reports moist mucous membranes; Denies dry mucous membranes atraumatic and trauma; Negative for tenderness Mouth ED: No dry mucous membranes Mouth: No dry mucous membranes Eyes EOMs intact bilaterally General Eye ED: Negative for pale conjunctiva or scleral icterus Neck no lymphadenopathy, supple, no meningeal signs and no JVD General: Negative for tenderness Lymph Lymphatic: Negative for other Resp normal respiratory effort and clear to auscultation bilaterally Effort and Inspection: Negative for pain with movement Auscultation: Negative for rales, rhonchi or wheezes Cardio regular rate, regular rhythm, S1 normal heart sound, S2 normal heart sound and no murmurs Rate: Negative for bradycardia or tachycardic Rhythm: Negative for abnormal rhythm GI non-tender, non-distended and no masses Inspection: Negative for other Auscultation: normoactive bowel sounds Palpation: soft; Negative for tender or guarding Back/Spine no CVA tenderness and normal to inspection General Back: Negative for CVA tenderness Extremity normal to inspection General Extremety ED: Negative for edema or tenderness General Extremity: Negative for edema Neuro oriented x3 and CN's II-XII intact bilaterally Sensorium / Orientation: alert, oriented to person, oriented to place and oriented to time; Negative for orientation impaired, confused, lethargic or stuporous Speech: speech normal Motor Exam: strength 5/5 throughout Psych mental status grossly normal Appearance: Negative for unkempt Attitude: No agitated Mood & Affect: Negative for depressed Thought Process: normal thought process Skin no wounds and skin turgor normal General Skin Exam: Negative for jaundice or pallor Lesions: no lesions Rashes: no rashes Trauma: Negative for abrasion MDM MDM MDM Narrative Medical decision making narrative: 72-year-old male history multiple myeloma currently being treated for it. Has had chest tightness bilaterally for about 2 weeks. Clinically I doubt this is cardiac. He will need to go undergo cardiac work-up due to chest pain and shortness of breath. Also have a low clinical suspicion for this being a PE. I will do a D-dimer since he is major risk factors having multiple myeloma. He has had no recent travel or surgery no leg pain or swelling. The pain is not pleuritic. He has had no hemoptysis. Lab Data Attestation: I reviewed the patient's lab results. Lab results narrative: CBC shows a white count of 7.9. H&H 13.8 and 41. Platelets are low at 67. D-dimer is elevated greater than 20. Electrolytes show a gap of 4 BUN 19 creatinine 1.29. Glucose 245. Troponin 63. CAT scan shows extensive pulmonary emboli in both the right and left lung. I discussed this with his oncologist Dr. Henrry Beverly given his clots and his decreasing platelet count of 67,000 previously was 98,000 and its been higher than that before he would like him admitted I will speak to the hospitalist about admitting the patient. Labs: Laboratory Results - last 24 hr 01/16/23 01/16/23 01/16/23 10:40 10:40 10:40 WBC 7.9 RBC 4.74 Hgb 13.8 Hct 41.4 MCV 87.3 MCH 29.1 MCHC 33.3 RDW Std Deviation 47.7 H RDW Coeff of John 15.2 H Plt Count 67 L MPV 12.5 H Immature Gran % (Auto) 1.100 H Neut % (Auto) 70.4 H Lymph % (Auto) 15.2 L [place] % (Auto) 9.5 Eos % (Auto) 3.3 Baso % (Auto) 0.5 Absolute Neuts (auto) 5.5 Absolute Lymphs (auto) 1.20 Nucleated RBC % 0 Differential Comment SCANNED Platelet Estimate MKD DEC D-Dimer Quant (PE/DVT) > 20.00 H* Sodium 136 Potassium 4.2 Chloride 109 H Carbon Dioxide 23.0 Anion Gap 4 L BUN 19 H Creatinine 1.29 Estim Creat Clear Calc 58.48 Est GFR (MDRD) Af Amer 71 Est GFR (MDRD) Non-Af 58 L BUN/Creatinine Ratio 14.7 Glucose 245 H Calcium 8.6 Troponin I High Sens 63 Radiography Chest X-Ray - ED: 1 View, Read by ED Physician, Read by Radiologist, Normal, Heart, Lungs, Mediastinum, Bony Structures, No Acute Disease and Chronic Changes Diagnostic Testing: Clinical Impression(s) from Imaging Studies Chest X-Ray 01/16/23 10:28 IMPRESSION: No acute abnormality is seen. Electronically Signed: Glen Mg MD at 11:31 EDT , Chest CTA 01/16/23 12:20 IMPRESSION: Extensive home embolism as described worse in the right hemithorax. The pulmonary embolism extends into the distal portions of both the right and left main pulmonary arteries. 1.9 cm cyst in the lateral aspect of the left kidney. N.B. : The above Results were Read Back by Glen Mg MD to Oseas Kerr MD, and understanding confirmed on 01/16/2023 13:21:07 (ET). Electronically Signed: Glen Mg MD at 13:22 EDT , ADDENDUM: 01/16/23 1329 IMPRESSION: Extensive home embolism as described worse in the right hemithorax. The pulmonary embolism extends into the distal portions of both the right and left main pulmonary arteries. 1.9 cm cyst in the lateral aspect of the left kidney. N.B. : The above Results were Read Back by Glen Mg MD to Oseas Kerr MD, and understanding confirmed on 01/16/2023 13:21:07 (ET). Electronically Signed: Glen Mg MD at 13:22 EDT , Chest x-ray, portable, single view shows no acute abnormality. Normal cardiac silhouette mediastinum. Rhythm Strip Rhythm Strip: Sinus Rhythm Rate: 82 EKG Initial EKG: Attestation: I personally reviewed and interpreted this EKG as follows: Interpretation: Sinus Rhythm and No Acute Injury Pattern Comments: Sinus rhythm rate 82. Right bundle branch block. No signs of NE. Discharge Plan Triage Chief Complaint: Shortness of Breath ED Provider: Nico Kerr Dx/Rx/DC Orders Clinical Impression: Chest pain, Thrombocytopenia, Hx of multiple myeloma, Bilateral pulmonary embolism Prescriptions: No Action atorvastatin 10 mg tablet 10 mg PO DAILY amlodipine 5 mg tablet 5 mg PO DAILY Linzess 145 mcg capsule 145 mcg PO DAILY Qty: 30 2RF Rx Instructions: take 30 minutes prior to first intake of the day. losartan 50 mg tablet 50 mg PO DAILY glimepiride 2 mg tablet 2 mg PO TID Hold Instructions: Hold if glucose less than 130 mg/dl. Resume from 04/22/2022 clonazepam 0.5 mg tablet 0.5 mg PO QHS psyllium husk [Metamucil] 0.4 gram Capsule 0.4 g PO DAILY acyclovir 400 mg tablet 400 mg PO BID aspirin 81 mg Tablet 81 mg PO DAILY Zenpep 40,000-126,000- 168,000 unit capsule,delayed release(DR/EC) See Rx Instructions PO .COMPLEX Qty: 320 11RF Rx Instructions: take 1-2 with snacks and 2-3 with meals. Take the higher dose with higher fat content meals. Primary Care Provider: Henrry Lugo Referrals: Henrry Lugo MD [Primary Care Provider] - Disposition Disposition: Acute Care Hospital [facility]
[2023-01-16 10:54] LABS: Absolute Neutrophil Count 5.5 X10^3/uL (2.0-7.7); Basophil# 0.04 X10^3/uL; Basophil% 0.5 % (0-1); Eosinophil# 0.26 X10^3/uL; Eosinophils% 3.3 % (0-5); Hematocrit 41.4 % (40-54); Hemoglobin 13.8 g/dL (13.0-16.5); Lymphocyte % 15.2 % (19-41); Mean Corp Hgb Conc 33.3 g/dL (32-36); Mean Corpuscular Hgb 29.1 pg (27.0-32.0); Mean Corpuscular Volume 87.3 fL (80-94); Mean Platelet Vol. 12.5 fl (6.2-12.0); Monocyte# 0.75 X10^3/uL; Monocyte% 9.5 % (0-10); NRBC Flagged by Analyzer 0 % (0-5); Neutrophil # 5.53 X10^3/uL (2.7-7.7); Neutrophil % 70.4 % (47-70); POSITIVE COUNT YES; Platelet Count 67 K/mm3 (150-450); RBC Distribution Width CV 15.2 % (11.6-14.6); RBC Distribution Width SD 47.7 fl (35.1-43.9); Red Blood Count 4.74 M/mm3 (4.6-6.2); White Blood Count 7.9 K/mm3 (4.4-11.0)
[2023-01-16 10:56] LABS: Differential Indicated SCAN CRITERIA MET
[2023-01-16 11:08] LABS: Anion Gap 4 (5-15); BUN 19 mg/dL (7-18); BUN/Creat Ratio 14.7 RATIO (10-20); Calcium,Total 8.6 mg/dL (8.5-10.1); Chloride 109 mmol/L (98-107); Creatinine, Serum 1.29 mg/dL (0.70-1.30); EST Glomerular Filtration Rate 58 mL/min (>60); Est Glom Filt Rate - Afr Amer 71 mL/min (>60); Estimated Creatinine Clearance 58.48 ml/min; Glucose 245 mg/dL (74-106); Potassium 4.2 mmol/L (3.5-5.1); Sodium Level 136 mmol/L (136-145); Troponin-I HS 63 pg/mL (3.0-78.0)
[2023-01-16 11:33] LABS: Differential Comment SCANNED; Platelet Estimate MKD DEC (ADEQ)
[2023-01-16 12:06] LABS: D-Dimer Quantitative (DVT/PE) > 20.00 FEU/ug/m (0.27-0.49)
--- NOTE | 2023-01-16 12:20 | CT_ITS ---
STUDY: CTA CHEST REASON FOR EXAM: Male, 72 years old. Elevated d-dimer. Multiple myeloma treatment. RADIATION DOSAGE (If Supplied By Facility): CTDIvol = ( 14.5 ) mGy, DLP = ( 387.88 ) mGycm TECHNIQUE: The examination was performed with the intravenous administration of IV 100mL Isovue-370. Post-processing of the angiographic images was performed, with multiplanar reformation and 3D reconstruction. Individualized dose optimization techniques were used for this CT. COMPARISON: Comparison is made with prior chest radiograph done earlier in the day. FINDINGS: Multiple bilateral pulmonary emboli involving the distal portion of both the right and left main pulmonary arteries as well as branches of the upper and lower lobe pulmonary arteries more prominent on the right side. Normal thoracic aorta and visualized great vessels. There is no demonstrated aortic dissection. Normal heart and pericardium. Normal mediastinum. Normal hilar regions. Normal visualized trachea and bronchi. The lungs are well expanded. Minimal increased markings in the posterior aspect of the right middle lobe suggestive of atelectasis Normal pleura. Normal chest wall structures. Normal osseous structures. There is a 1.9 cm cyst in the upper lateral aspect of the left kidney. Subcentimeter cyst in the left lobe of the liver. CT/CTA Chest W/WO Contrast IMPRESSION: Extensive home embolism as described worse in the right hemithorax. The pulmonary embolism extends into the distal portions of both the right and left main pulmonary arteries. 1.9 cm cyst in the lateral aspect of the left kidney. N.B. : The above Results were Read Back by Glen Mg MD to Oseas Kerr MD, and understanding confirmed on 01/16/2023 13:21:07 (ET). Electronically Signed: Glen Mg MD at 13:22 EDT ,
--- NOTE | 2023-01-16 13:51 | NURSING ---
PCU SALAS BILATERAL PE, M MYELOMA HX, CP, LOW PLATELETS
--- NOTE | 2023-01-16 14:25 | HP.PCM.HOS_ITS ---
HPI - General General Date of Admission: 01/16/23 Date of Service: 01/16/23 Chief Complaint: Chest tightness HPI Narrative IRENE STEVENS, is a 72 M with a history of multiple myeloma, type 2 diabetes mellitus and hypertension presented to [facility] 01[facility]16/2023 at the urging of his hematology oncology Dr. Beverly due to chest tightness and shortness of breath for 2 weeks. In the ED blood pressure 123/75, heart rate 71, 96% on room air. Platelet count 67 but CBC otherwise unremarkable. D-dimer greater than 20 and extensive pulmonary embolism was found worse in the right hemithorax extending to the distal portion of both the right and left main pulmonary arteries. ED physician spoke with his oncologist who reported with his platelet count he would prefer admission observation on anticoagulation to verify no drop in platelets or bleeding. Hospitalist consulted for admission. Patient seen at bedside with . Reports that over the past month with his infusions for his multiple myeloma he has been getting some chest tightness and shortness of breath on exertion however 2 weeks ago after his treatment it got worse and has worsened to the point where he is short of breath and has chest tightness even walking to his kitchen and back. Denies cough, denies swelling in legs. Reports that they had been swollen after his first infusion 3 weeks ago and he had a venous duplex which was negative. Has slight nasal congestion but feels it is due to the weather. Denied any other complaints. [facility] Medical History Diabetes mellitus High cholesterol History of echocardiogram History of skin cancer HTN (hypertension) Hypokalemia Multiple myeloma Non-smoker Open wound RBBB Restless legs Wears glasses Home Medications amlodipine 5 mg tablet 5 mg PO DAILY blood pressure 02/09/21 [History Last Taken 01/16/23] atorvastatin 10 mg tablet 10 mg PO DAILY cholesterol 02/09/21 [History Last Taken 01/16/23] glimepiride 2 mg tablet 4 mg PO DAILY DM 04/19/22 [History Last Taken 01/16/23] losartan 50 mg tablet 50 mg PO DAILY BP 04/19/22 [History Last Taken 01/16/23] clonazepam 0.5 mg tablet 0.5 mg PO QHS 09/16/22 [History Last Taken 01/15/23] linaclotide 145 mcg capsule (Linzess) 145 mcg PO DAILY #30 caps 12/05/22 [Rx Last Taken 01/16/23] Velade See Rx Instructions .Route .COMPLEX CHEMO 01/16/23 [History Last Taken 01/11/23] acyclovir 400 mg tablet 400 mg PO BID 01/16/23 [History Last Taken 01/16/23 07:00] aspirin 81 mg tablet,delayed release 81 mg PO DAILY 01/16/23 [History Last Taken 01/16/23] dexamethasone 4 mg tablet 40 mg PO WE CHEMO 01/16/23 [History Last Taken 01/11/23] glimepiride 2 mg tablet 2 mg PO DAILY DM 01/16/23 [History Last Taken 01/15/23] lenalidomide 25 mg capsule (Revlimid) 25 mg PO DAILY CHEMO 01/16/23 [History Last Taken 01/16/23] potassium chloride 20 mEq tablet,extended release(part/cryst) 20 meq PO DAILY POTASSIUM 01/16/23 [History Last Taken 01/15/23] Allergy/AdvReac Type Severity Reaction Status Date / Time No Known Allergies Allergy Verified 01/16/23 10:02 Family History Other Diabetes Hypertension Surgical History History of wisdom tooth extraction Hx of hernia repair (~1965) Social History Smoking Status: Never smoker alcohol intake: current alcohol intake frequency: a few times a week Alcohol type: beer substance use type: does not use ROS ROS Narrative General: Denies fever/chills HENT: Denies headache, slight nasal congestion, denies sore throat EYES: Denies changes in vision Resp: Denies cough, shortness of breath on exertion Cardiac: Chest tightness GI: Denies abdominal pain, denies changes in bowel, denies nausea/vomiting : Denies changes in urination Extremity: Denies swelling MSK: Denies weakness Neuro: Denies any numbness/tingling Heme: Denies any bleeding or bruising Skin: Denies rashes Psychiatric: No complaints voiced Vital Signs Vital Signs Vital Signs: 01/16/23 09:59 01/16/23 11:40 01/16/23 11:40 Temperature 97.8 F Temperature Source Temporal Pulse Rate 88 76 Respiratory Rate 14 21 H Respiratory Effort Respiratory Depth Respiratory Pattern Blood Pressure 127/84 H 152/73 H Blood Pressure Mean 98 99 Pulse Ox 96 95 Oxygen Delivery Method Room Air Room Air Room Air Oxygen Flow Rate (L/min) 95 01/16/23 11:40 01/16/23 14:03 Temperature 97.9 F Temperature Source Temporal Pulse Rate 70 Respiratory Rate 18 Respiratory Effort Short of Breath Respiratory Depth Normal Respiratory Pattern Normal Blood Pressure 126/77 H Blood Pressure Mean 93 Pulse Ox 98 Oxygen Delivery Method Room Air Room Air Oxygen Flow Rate (L/min) Weight Weight: 89.358 kg Body Mass Index (BMI) 26.7 Physical Exam Narrative General: Alert, oriented, no apparent distress HEENT: Atraumatic, normocephalic Eyes: Anicteric, normal conjunctiva, extraocular movements grossly intact Neck: Supple Respiratory: Slightly coarse very right base compared to left, normal respiratory effort at rest, slight increased work of breathing when moving around Cardiovascular: Regular rate and rhythm GI: Soft, nontender, nondistended Extremities: No edema Musculoskeletal: Moving all extremities Neuro: No overt focal neurological deficits Skin: No rashes appreciated Psych: Cooperative Results Lab / Micro Data Result Diagrams: 01/16/23 10:40 01/16/23 10:40 Labs: Laboratory Results - last 24 hr 01/16/23 10:40: WBC 7.9, RBC 4.74, Hgb 13.8, Hct 41.4, MCV 87.3, MCH 29.1, MCHC 33.3, RDW Std Deviation 47.7 H, RDW Coeff of John 15.2 H, Plt Count 67 L, MPV 12.5 H, Immature Gran % (Auto) 1.100 H, Neut % (Auto) 70.4 H, Lymph % (Auto) 15.2 L, [place] % (Auto) 9.5, Eos % (Auto) 3.3, Baso % (Auto) 0.5, Absolute Neuts (auto) 5.5, Absolute Lymphs (auto) 1.20, Nucleated RBC % 0, Differential Comment SCANNED, Platelet Estimate MKD DEC 01/16/23 10:40: D-Dimer Quant (PE/DVT) > 20.00 H* 01/16/23 10:40: Sodium 136, Potassium 4.2, Chloride 109 H, Carbon Dioxide 23.0, Anion Gap 4 L, BUN 19 H, Creatinine 1.29, Estim Creat Clear Calc 58.48, Est GFR (MDRD) Af Amer 71, Est GFR (MDRD) Non-Af 58 L, BUN/Creatinine Ratio 14.7, Glucose 245 H, Calcium 8.6, Troponin I High Sens 63 Rhythm Strip Rhythm Strip: Sinus Rhythm Rate: 82 Radiology Impression Chest X-Ray 01/16/23 10:28 IMPRESSION: No acute abnormality is seen. Electronically Signed: Glen Mg MD at 11:31 EDT , Chest CTA 01/16/23 12:20 IMPRESSION: Extensive home embolism as described worse in the right hemithorax. The pulmonary embolism extends into the distal portions of both the right and left main pulmonary arteries. 1.9 cm cyst in the lateral aspect of the left kidney. N.B. : The above Results were Read Back by Glen Mg MD to Irene Kerr MD, and understanding confirmed on 01/16/2023 13:21:07 (ET). Electronically Signed: Glen Mg MD at 13:22 EDT , ADDENDUM: 01/16/23 1329 IMPRESSION: Extensive home embolism as described worse in the right hemithorax. The pulmonary embolism extends into the distal portions of both the right and left main pulmonary arteries. 1.9 cm cyst in the lateral aspect of the left kidney. N.B. : The above Results were Read Back by Glen Mg MD to Ireen Kerr MD, and understanding confirmed on 01/16/2023 13:21:07 (ET). Electronically Signed: Glen Mg MD at 13:22 EDT , Assessment & Plan Assessment/Plan (1) Bilateral pulmonary embolism: PLAN: Plan #Bilateral pulmonary embolism/thrombocytopenia -EKG on arrival showed left axis deviation with a right bundle branch block and normal sinus rhythm but was similar to EKG in March 2022 -Discussed with Dr. Beverly, thrombocytopenia presumed to be due to his treatments he is getting for his multiple myeloma -No recent prolonged immobility, no smoking -No symptoms at rest but has significant symptoms upon movement -Discussed with Dr. Beverly, will start heparin drip with bolus and evaluate CBC in the a.m. -If platelets above 55 and no bleeding can DC on Eliquis -We will monitor in PCU and also obtain echocardiogram to assess for any right heart strain -Obtain COVID -Hypercoagulability work-up ordered as well #Type 2 diabetes mellitus -Hold glimepiride -Glucose checks and sliding scale insulin #Multiple myeloma -Follows with Dr. Beverly on an outpatient basis #CKD stage III unclear subtype -Slightly decreased GFR, no KYE at present, will monitor and recheck in the a.m. #DVT ppx: Full dose heparin Kezia Ko MD Time spent in the patient's overall evaluation,decision-making process, review of diagnostic data, adjustment of management, discussion with other providers, nursing nursing and ancillary staff involved in patient's care documentation, 60 minutes Charges/Coding Visit Charges Inpatient E&M: 59909 Init Hosp L2
--- NOTE | 2023-01-16 15:52 | ECHODONC_ITS ---
Reason For Study: EMBOLI Procedure This was a 2D Doppler, Color Flow transthoracic echocardiogram. Myocardial strain analysis was performed in this exam to aid in the assessment of cardiac function. Exam performed portable in patient room. Left Ventricle Normal LV size. Moderate concentric left ventricular hypertrophy. Left ventricular systolic function is normal. The estimated ejection fraction is 60 %. Stage 1 diastolic dysfunction. Right Ventricle Moderately dilated right ventricle. Mild to moderate global right ventricular systolic dysfunction. Tricuspid Valve Normal tricuspid valve. Moderate (2+) tricuspid valve insufficiency. Pulmonary artery systolic pressure is 58 mmHg. Aortic Valve Normal aortic valve. Trisinus/trileaflet aortic valve. Pulmonic Valve Normal pulmonic valve. Great Vessels Normal aortic root. The pulmonary artery is normal size. Normal inferior vena cava. Pericardium/Pleural No pericardial effusion. MMode/2D Measurements & Calculations LVIDd: 4.6 cm IVSd: 1.5 cm Ao root diam: 3.4 cm LVIDs: 3.0 cm LVPWd: 1.4 cm RVDd: 5.0 cm FS: 34.5 % LAV(MOD-bp): 57.2 ml LA dimension(2D): 4.2 cm LA A4 area: 17.6 cm2 LAV(MOD-bp) Indexed: 27.1 ml/m2 LAV(MOD-sp2): 53.5 ml LAV(MOD-sp4): 51.7 ml RA A4 area: 17.6 cm2 Time Measurements MV dec time: 0.26 sec Doppler Measurements & Calculations MV E max keyur: 33.8 cm/sec Lat Peak E' Keyur: 12.4 cm/sec Med Peak E' Keyur: 8.6 cm/sec MV A max keyur: 55.5 cm/sec E/E' lat: 2.7 E/E' med: 3.9 MV E/A: 0.61 Ao V2 max: 114.6 cm/sec LV V1 max: 89.6 cm/sec MV dec slope: 130.8 cm/sec2 Ao max P.3 mmHg LV V1 max P.2 mmHg Ao V2 mean: 80.1 cm/sec LV V1 mean P.6 mmHg Ao mean P.8 mmHg LV V1 mean: 59.4 cm/sec Ao V2 VTI: 17.5 cm LV V1 VTI: 13.8 cm AV (velocity ratio): 0.79 PA V2 max: 42.1 cm/sec TR max keyur: 356.4 cm/sec TR max P.8 mmHg ECHO/ONC Echo Complete Interpretation Summary Normal LV size. Moderate concentric left ventricular hypertrophy. Left ventricular systolic function is normal. The estimated ejection fraction is 60 %. Stage 1 diastolic dysfunction. Pulmonary artery systolic pressure is 58 mmHg. The global longitudinal strain = -11.5% (abnormal). The global longitudinal str ain is moderately abnormal. Ordering Physician: Kezia Ko Referring Physician: Henrry Lugo Performed By: Loren Nunez, SIMBA, RVT
[2023-01-16 16:47] LABS: International Normalized Ratio 1.1; Prothrombin Time (Protime)PT. 13.9 SECONDS (11.7-14.9)
[2023-01-16 16:48] LABS: Partial Thromboplast Time 22.2 Seconds (24.1-36.2)
[2023-01-16 16:55] LABS: Bedside Glucose 228 mg/dL (74-106)
[2023-01-16] MEDS: Heparin Injection (Vial) 5,000 UNIT/ML VIAL 6000 UNIT IV (17:09)
[2023-01-16] MEDS: Insulin Lispro 100 UNIT/ML INSULN.PEN SC ×2 (17:10→21:43)
[2023-01-16] MEDS: HEPARIN/D5w 25,000 UNITS 25,000 UNITS/250 ML IV.SOLN. 12 UNITS CONT INF (17:11)
[2023-01-16] MEDS: Acyclovir 200 MG Capsule 400 MG PO (21:41)
[2023-01-16] MEDS: Atorvastatin Calcium 10 MG Tablet PO (21:42)
[2023-01-16 22:11] LABS: Bedside Glucose 185 mg/dL (74-106)
[2023-01-17 00:09] LABS: Partial Thromboplast Time 43.4 Seconds (24.1-36.2)
[2023-01-17] MEDS: Heparin Injection (Vial) 5,000 UNIT/ML VIAL IV ×2 (00:47→07:35)
[2023-01-17 03:26] VITALS: BP 109/69; PULSE 98; RESP 18; TEMP 36.6; O2SAT 97
[2023-01-17 03:28] VITALS: O2SAT 97
[2023-01-17] MEDS: Insulin Lispro 100 UNIT/ML INSULN.PEN SC ×2 (06:49→11:22)
[2023-01-17 07:15] LABS: Bedside Glucose 200 mg/dL (74-106)
[2023-01-17 07:16] LABS: Absolute Lymphocyte Count 1.02 X10^3/uL (0.83-4.51); Absolute Neutrophil Count 4.2 X10^3/uL (2.0-7.7); Basophil# 0.02 X10^3/uL; Basophil% 0.3 % (0-1); Eosinophil# 0.12 X10^3/uL; Hemoglobin 13.1 g/dL (13.0-16.5); Lymphocyte # 1.02 X10^3/ul (0.83-4.51); Lymphocyte % 17.1 % (19-41); Mean Corp Hgb Conc 32.8 g/dL (32-36); Mean Corpuscular Volume 88.7 fL (80-94); Mean Platelet Vol. 12.2 fl (6.2-12.0); Monocyte# 0.52 X10^3/uL; Monocyte% 8.7 % (0-10); NRBC Flagged by Analyzer 0 % (0-5); Neutrophil # 4.23 X10^3/uL (2.7-7.7); Neutrophil % 71.2 % (47-70); POSITIVE COUNT YES; Platelet Count 62 K/mm3 (150-450); RBC Distribution Width CV 15.5 % (11.6-14.6); RBC Distribution Width SD 49.1 fl (35.1-43.9); Red Blood Count 4.51 M/mm3 (4.6-6.2)
[2023-01-17 07:29] LABS: Anion Gap 6 (5-15); BUN 21 mg/dL (7-18); BUN/Creat Ratio 17.4 RATIO (10-20); Calcium,Total 8.2 mg/dL (8.5-10.1); Chloride 111 mmol/L (98-107); Creatinine, Serum 1.21 mg/dL (0.70-1.30); EST Glomerular Filtration Rate 63 mL/min (>60); Est Glom Filt Rate - Afr Amer 76 mL/min (>60); Estimated Creatinine Clearance 62.35 ml/min; Glucose 216 mg/dL (74-106); Sodium Level 136 mmol/L (136-145)
[2023-01-17 09:02] VITALS: BP 98/56; PULSE 89; RESP 18; TEMP 36.5; O2SAT 98
[2023-01-17] MEDS: Acyclovir 200 MG Capsule 400 MG PO (09:04)
[2023-01-17 09:12] VITALS: BP 113/71; PULSE 106; RESP 26; O2SAT 97
[2023-01-17 09:20] VITALS: O2SAT 95; O2SAT 97
--- NOTE | 2023-01-17 11:30 | CASEMGMT ---
RN CM Face to Face with patient for initial transition planning/care coordination assessment. RN CM introduced self and role at [facility]. Patient sitting in chair, alert and oriented, family at bedside. Patient willing to participate in assessment and is able to answer all questions appropriately. Care providers, pharmacy, and demographics verified. Patient wishes to discharge home, denies need for home health at this time. Patient states he has no further needs or concerns at this time. CM to follow for discharge planning needs that may arise. PCP: [facility] Specialists: Rush, oncologist; Friend, GI; Mague, pulmonology [facility] Pres[facility] Benefit: yes, [employer] savings card provided to patient Living Will/HPOA: none LNOK: , daughters x3, sons x2 Living Arrangements: Patient lives with in single story home with 3 steps and railing to enter the home. Patient states he is independent at home. Transportation: self, DME/HHC: Patient has raised toilet and grab bars at home. Patient states he may benefit from shower chair, script received and provided to patient. No previous of HHC or SNF. Disposition Plan: Patient to discharge home with family support and follow-up plans in place. Therese MATHEWS, RN, CM
[2023-01-17 11:50] LABS: Bedside Glucose 276 mg/dL (74-106)
[2023-01-17] MEDS: APIXABAN 5 MG TABLET 10 MG PO (12:49)
--- NOTE | 2023-01-17 14:28 | PCM.DC.SUM ---
Providers Date of Admission: 01/16/23 Date of Discharge: 01/17/23 Primary Care Physician: Dr. Henrry Lugo MD Reason For Visit: Bilateral PE Diagnosis Discharge Diagnosis (1) Bilateral pulmonary embolism: Status: Acute Code(s): I26.99 - Other 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 acute cor pulmonale Plan #Bilateral pulmonary embolism #thrombocytopenia #Type 2 diabetes mellitus #Multiple myeloma #CKD stage III unclear subtype Medications at Discharge Home Medications amlodipine 5 mg tablet 5 mg PO DAILY blood pressure 02/09/21 atorvastatin 10 mg tablet 10 mg PO DAILY cholesterol 02/09/21 glimepiride 2 mg tablet 4 mg PO DAILY DM 04/19/22 losartan 50 mg tablet 50 mg PO DAILY BP 04/19/22 clonazepam 0.5 mg tablet 0.5 mg PO QHS anxiety 09/16/22 linaclotide 145 mcg capsule (Linzess) 145 mcg PO DAILY #30 caps 12/05/22 Velade See Rx Instructions .Route .COMPLEX CHEMO 01/16/23 acyclovir 400 mg tablet 400 mg PO BID anti viral 01/16/23 aspirin 81 mg tablet,delayed release 81 mg PO DAILY heart health 01/16/23 dexamethasone 4 mg tablet 40 mg PO WE CHEMO 01/16/23 glimepiride 2 mg tablet 2 mg PO DAILY DM 01/16/23 lenalidomide 25 mg capsule (Revlimid) 25 mg PO DAILY CHEMO 01/16/23 apixaban 5 mg (74 tabs) tablets in a dose pack (Eliquis DVT-PE Treat 30D Start) See Rx Instructions .Route .COMPLEX #74 tabs 01/17/23 Hospital Course Procedures - (TTE) Summary of Care Provided Minutes Spent on Discharge: 34 Hospital Course: IRENE STEVENS, is a 72 M with a history of multiple myeloma, type 2 diabetes mellitus and hypertension presented to [facility] 01/16/2023 at the urging of his hematology oncology Dr. Mccain due to chest tightness and shortness of breath for 2 weeks.? In the ED blood pressure 123/75, heart rate 71, 96% on room air.? Platelet count 67 but CBC otherwise unremarkable.? D-dimer greater than 20 and extensive pulmonary embolism was found worse in the right hemithorax extending to the distal portion of both the right and left main pulmonary arteries.? ED physician spoke with his oncologist who reported with his platelet count he would prefer admission observation on anticoagulation to verify no drop in platelets or bleeding.? Hospitalist consulted for admission.? Spoke with Dr. Mccain and patient was started on heparin drip. Stable overnight and platelets in the a.m. 62. On admission once patient was up to the floor did have an episode where he stood up and felt dizzy and got sweaty and he sat down and this resolved. Had no other episodes like this. The following day he was up and able to walk with staff and though does have shortness of breath had no hemodynamic instability or decrease in O2 sat. did have echocardiogram performed which showed stage I diastolic dysfunction, pulmonary artery systolic pressure 58 and moderate global strain. Discussed with family and patient at length about plan and how patient is doing currently and ultimate decision for patient to discharge home today. Switch to Eliquis with discharge instructions as followed: -You were found to have blood clots in your lungs and will need to take Eliquis upon discharge.? You will take 10 mg twice daily for 7 days followed by 5 mg daily -It will be important that you follow-up with Dr. Mccain tomorrow as previously scheduled -Would recommend holding your morning dose of the lenalidomide (Revlimid) until discussing with him tomorrow -Would also recommend holding your aspirin until discussing with Dr. Mccain due to your platelet count and being started on Eliquis - Would recommend lab work (CBC) to check your platelet count in 2 to 4 days through your primary care physician's office or Dr. Mccain.? Please call their office upon discharge to obtain order for lab work. -Your potassium has been within normal limits during your admission, would recommend holding your potassium supplementation.? When you call to obtain lab work would also recommend obtaining BMP to check your potassium in 2 to 4 days -On an outpatient basis you will need a repeat ultrasound of your heart (echocardiogram) in 2 to 4 weeks through your primary care physician's office to monitor your heart function and assess for any further strain on the heart -Please call your primary care provider's office upon discharge to schedule a hospital follow up within 1 week. -For any concerning signs or symptoms please call 911 or proceed to the nearest emergency department Physical Exam Narrative General: Alert, oriented, no apparent distress HEENT: Atraumatic, normocephalic Eyes: Anicteric, normal conjunctiva, extraocular movements grossly intact Neck: Supple Respiratory: No wheezes or rhonchi, normal respiratory effort at rest Cardiovascular: Regular rate and rhythm GI: Soft, nontender, nondistended Extremities: No edema Musculoskeletal: Moving all extremities Neuro: No overt focal neurological deficits Skin: No rashes appreciated Psych: Cooperative Weight / BMI Weight Weight: 88.451 kg Body Mass Index (BMI) 26.4 ABG / Lab / Microbiology Data Result Diagrams: 01/17/23 07:01 01/17/23 07:01 Laboratory: Laboratory Results - last 24 hr 01/16/23 15:29: PT 13.9, INR 1.1, APTT 22.2 L 01/16/23 16:32: POC Glucose 228 H 01/16/23 21:40: POC Glucose 185 H 01/16/23 23:41: APTT 43.4 H 01/17/23 06:47: POC Glucose 200 H 01/17/23 07:01: WBC 6.0, RBC 4.51 L, Hgb 13.1, Hct 40.0, MCV 88.7, MCH 29.0, MCHC 32.8, RDW Std Deviation 49.1 H, RDW Coeff of John 15.5 H, Plt Count 62 L, MPV 12.2 H, Immature Gran % (Auto) 0.700, Neut % (Auto) 71.2 H, Lymph % (Auto) 17.1 L, [place] % (Auto) 8.7, Eos % (Auto) 2.0, Baso % (Auto) 0.3, Absolute Neuts (auto) 4.2, Absolute Lymphs (auto) 1.02, Nucleated RBC % 0 01/17/23 07:01: Sodium 136, Potassium 4.0, Chloride 111 H, Carbon Dioxide 19.0 L, Anion Gap 6, BUN 21 H, Creatinine 1.21, Estim Creat Clear Calc 62.35, Est GFR (MDRD) Af Amer 76, Est GFR (MDRD) Non-Af 63, BUN/Creatinine Ratio 17.4, Glucose 216 H, Calcium 8.2 L 01/17/23 07:01: APTT 44.0 H 01/17/23 11:21: POC Glucose 276 H Microbiology: Microbiology 01/16/23 14:50 Nasal Secretion SARS-CoV-2 Antigen (Rapid) - Final D/C Instructions Discharge Diet: No restrictions Meaningful Use Info Meaningful Use Diagnoses (Choose all that apply): VTE VTE Anticoag overlap given w/in hospital stay or rx'd at dc?: Yes Pt receive overlap for 5 days?: No Reason overlap not ordered, prescribed, or given for 5 days: Medical Contraindication Discharge Plan Admission Admit Date/Time: 01/16/23 14:25 Primary Reason for Your Visit: Shortness of breath Attending Provider: Kezia Ko Primary Care Provider: Henrry Lugo Instructions Patient Instructions: Pulmonary Embolism Additional Instructions / Restrictions: DISCHARGE INSTRUCTIONS PLEASE READ *Please take this with you to your next doctors appointment* -You were found to have blood clots in your lungs and will need to take Eliquis upon discharge. You will take 10 mg twice daily for 7 days followed by 5 mg daily -It will be important that you follow-up with Dr. Mccain tomorrow as previously scheduled -Would recommend holding your morning dose of the lenalidomide (Revlimid) until discussing with him tomorrow -Would also recommend holding your aspirin until discussing with Dr. Mccain due to your platelet count and being started on Eliquis - Would recommend lab work (CBC) to check your platelet count in 2 to 4 days through your primary care physician's office or Dr. Mccain. Please call their office upon discharge to obtain order for lab work. -Your potassium has been within normal limits during your admission, would recommend holding your potassium supplementation. When you call to obtain lab work would also recommend obtaining BMP to check your potassium in 2 to 4 days -On an outpatient basis you will need a repeat ultrasound of your heart (echocardiogram) in 2 to 4 weeks through your primary care physician's office to monitor your heart function and assess for any further strain on the heart -Please call your primary care provider's office upon discharge to schedule a hospital follow up within 1 week. -For any concerning signs or symptoms please call 911 or proceed to the nearest emergency department Discharge Orders/Prescriptions Prescriptions: New Eliquis DVT-PE Treat 30D Start 5 mg (74 tabs) tablets,dose pack See Rx Instructions .ROUTE .COMPLEX Qty: 74 0RF Rx Instructions: Take two tabs twice daily for 7 days followed by one tab twice daily Continued atorvastatin 10 mg tablet 10 mg PO DAILY amlodipine 5 mg tablet 5 mg PO DAILY Linzess 145 mcg capsule 145 mcg PO DAILY Qty: 30 2RF Rx Instructions: take 30 minutes prior to first intake of the day. losartan 50 mg tablet 50 mg PO DAILY glimepiride 2 mg tablet 4 mg PO DAILY Hold Instructions: Start from April 22, 2022 clonazepam 0.5 mg tablet 0.5 mg PO QHS acyclovir 400 mg tablet 400 mg PO BID glimepiride 2 mg tablet 2 mg PO DAILY dexamethasone 4 mg tablet 40 mg PO WE Label Comments: TAKE 10 TABLETS BY MOUTH ONCE A WEEK ON DAYS 1,8,15,AND 22 OF EACH CYCLE Velade See Rx Instructions .ROUTE .COMPLEX Rx Instructions: GETS IV WEEKLY AT DR MCCAIN'S OFFICE Held aspirin 81 mg Tablet,Delayed Release (/Ec) 81 mg PO DAILY Hold Instructions: Resume on 01/25/23. lenalidomide [Revlimid] 25 mg capsule 25 mg PO DAILY Hold Instructions: Resume on 01/18/23. Discontinued potassium chloride 20 mEq tablet,ER particles/crystals 20 meq PO DAILY Label Comments: TAKE 1 TABLET BY MOUTH ONCE DAILY Referrals / Follow Up: Henrry Mccain DO [Med Staff - Active Staff] - In 1 Day Henrry Lugo MD [Primary Care Provider] - Within 1 Week Disposition Disposition (needs filled in before D/C Order can be placed): Home, Self Care Charges/Coding Visit Charges Inpatient E&M: 47021 Disch Hosp >30min
[2023-01-17 15:00] VITALS: BP 105/56; PULSE 82; RESP 18; TEMP 36.6; O2SAT 97
[2023-01-17 16:45] LABS: Bedside Glucose 139 mg/dL (74-106)
[2023-01-24 11:09] LABS: Anti-Cardiolipin Ab, IgG, Qn < 9 GPL U/mL (0-14); Anti-Cardiolipin Ab, IgM, Qn < 9 MPL U/mL (0-12); Beta-2-Glycoprotein I IgA 9 (0-25); Beta-2-Glycoprotein I IgG <9 (0-20); Beta-2-Glycoprotein I IgM <9 (0-32)
[2023-01-27 12:08] LABS: Protein C Antigen 80 % (60-150); Protein C, Functional 110 % (73-180)
[2023-01-27 15:20] LABS: Antithrombin 3 Function 128 % (75-135)
== END 2023-01-17 14:20 | disposition home or self-care (01) ==
LOC: ED 13:50 → PCU 14:51
PROVIDERS: Admitting Provider Internal Medicine; Emergency Provider Emergency Medicine; PCP Family Medicine; Visit Provider Internal Medicine
DX: I26.99 Other 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 acute cor pulmonale (principal); C90.00 Multiple myeloma not having achieved remission; E11.22 Type 2 diabetes mellitus with diabetic chronic kidney disease; D69.6 Thrombocytopenia, unspecified; N18.30 Chronic kidney disease, stage 3 unspecified; R07.9 Chest pain, unspecified; Z79.82 Long term (current) use of aspirin; I12.9 Hypertensive chronic kidney disease with stage 1 through stage 4 chronic kidney disease, or unspecified chronic kidney disease; Z79.84 Long term (current) use of oral hypoglycemic drugs; E78.00 Pure hypercholesterolemia, unspecified; R06.02 Shortness of breath; Z79.899 Other long term (current) drug therapy; R94.31 Abnormal electrocardiogram [ECG] [EKG]; I45.10 Unspecified right bundle-branch block; I07.1 Rheumatic tricuspid insufficiency
CPT/HCPCS: 36415; 71045; 71275; 80048; 81240; 81241; 82962; 84484; 85025; 85300; 85301; 85302; 85303; 85379; 85610; 85730; 86146; 86147; 87811; 93005; 93306; 93356; 94668; 96365; 96366; 96376; 99221; 99252; 99285; Q9967; A4216; G0378; G0463

== ENCOUNTER → 2023-01-18 | Outpatient (CLI) | payer MEDICARE, OTHER, SELFPAY | END | disposition home or self-care (01) | PROVIDERS: PCP Family Medicine; Referring Provider Internal Medicine Hematology & Oncology; Visit Provider Internal Medicine Hematology & Oncology | DX: C90.00 Multiple myeloma not having achieved remission (principal) | CPT/HCPCS: 86850; 86900; 86901 ==

== ENCOUNTER → 2023-02-17 | Outpatient (CLI) | payer MEDICARE, OTHER, SELFPAY ==
--- NOTE | 2023-02-17 13:08 | ECHOD_ITS ---
Version 2 Reason For Study: Recent Pulm Embolism Procedure This was a 2D Doppler, Color Flow transthoracic echocardiogram. Myocardial strain analysis was performed in this exam to aid in the assessment of cardiac function. Exam performed in department. Left Ventricle Normal LV size. Moderate concentric left ventricular hypertrophy. Left ventricular systolic function is normal. The estimated ejection fraction is 60 %. Stage 1 diastolic dysfunction. No regional wall motion abnormalities noted. Right Ventricle Normal RV size. Normal systolic function. Atria Normal left atrium. Normal right atrium. Mitral Valve Normal mitral valve. Tricuspid Valve Normal tricuspid valve. Mild (1+) tricuspid valve insufficiency. Pulmonary artery systolic pressure is 28 mmHg. Pulmonic Valve Normal pulmonic valve. Great Vessels Normal aortic root. The pulmonary is not well visualized. Normal inferior vena cava. Pericardium/Pleural No pericardial effusion. MMode/2D Measurements & Calculations LVIDd: 5.2 cm IVSd: 1.5 cm Ao root diam: 3.4 cm LVIDs: 3.2 cm LVPWd: 1.4 cm RVDd: 3.7 cm FS: 39.0 % LAV(MOD-bp): 76.5 ml LVAd ap4: 36.1 cm2 LVAd ap2: 33.0 cm2 LAV(MOD-bp) Indexed: 36.5 ml/m2 LVLd ap4: 8.8 cm LVLd ap2: 8.6 cm LAV(MOD-sp2): 65.6 ml EDV(MOD-sp4): 123.1 ml EDV(MOD-sp2): 109.1 ml LAV(MOD-sp4): 73.8 ml EDV(sp4-el): 125.3 ml EDV(sp2-el): 106.9 ml LVAs ap4: 20.5 cm2 LVAs ap2: 20.2 cm2 LVLs ap4: 7.6 cm LVLs ap2: 7.7 cm ESV(MOD-sp4): 48.3 ml ESV(MOD-sp2): 47.6 ml ESV(sp4-el): 47.2 ml ESV(sp2-el): 45.0 ml EF(MOD-sp4): 60.8 % EF(MOD-sp2): 56.3 % EF(sp4-el): 62.3 % SV(MOD-sp4): 74.8 ml SV(MOD-sp2): 61.5 ml SV(sp4-el): 78.1 ml LA dimension(2D): 4.4 cm LA A4 area: 22.0 cm2 RA A4 area: 16.9 cm2 Time Measurements MV dec time: 0.22 sec Doppler Measurements & Calculations MV E max keyur: 58.5 cm/sec Lat Peak E' Keyur: 4.5 cm/sec Med Peak E' Keyur: 4.2 cm/sec MV A max keyur: 64.1 cm/sec E/E' lat: 13.1 E/E' med: 14.1 MV E/A: 0.91 MV dec slope: 268.5 cm/sec2 Ao V2 max: 142.3 cm/sec LV V1 max: 118.7 cm/sec Ao max P.1 mmHg LV V1 max P.6 mmHg PA V2 max: 136.4 cm/sec TR max keyur: 247.2 cm/sec TR max P.4 mmHg ECHO/Echo Complete Interpretation Summary Normal LV size. Moderate concentric left ventricular hypertrophy. Left ventricular systolic function is normal. The estimated ejection fraction is 60 %. Stage 1 diastolic dysfunction. Pulmonary artery systolic pressure is 28 mmHg. The pulmonary pressures are much improved. Ordering Physician: Henrry Lugo Referring Physician: Henrry Beverly Performed By: Brenda Langston RDCS
== END | disposition home or self-care (01) ==
LOC: CVS 13:07
PROVIDERS: PCP Family Medicine; Referring Provider Family Medicine; Visit Provider Family Medicine
DX: I26.99 Other 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 acute cor pulmonale (principal)
CPT/HCPCS: 93306

== ENCOUNTER 2023-11-27 13:57 | Emergency (ER) | payer MEDICARE, OTHER, SELFPAY ==
[2023-11-27] VITALS (7 sets, daily range): BP systolic 135–158; BP diastolic 64–74; PULSE 50–57; RESP 14–20; TEMP 35.8; O2SAT 98–100; BMI 25.6
[2023-11-27 14:36] LABS: Absolute Lymphocyte Count 0.89 X10^3/uL (0.83-4.51); Absolute Neutrophil Count 1.6 X10^3/uL (2.0-7.7); Basophil# 0.03 X10^3/uL; Basophil% 0.9 % (0-1); Eosinophil# 0.28 X10^3/uL; Eosinophils% 8.7 % (0-5); Hematocrit 39.2 % (40-54); Hemoglobin 12.8 g/dL (13.0-16.5); Lymphocyte # 0.89 X10^3/ul (0.83-4.51); Lymphocyte % 27.6 % (19-41); Mean Corp Hgb Conc 32.7 g/dL (32-36); Mean Corpuscular Hgb 29.3 pg (27.0-32.0); Mean Corpuscular Volume 89.7 fL (80-94); Mean Platelet Vol. 9.9 fl (6.2-12.0); Monocyte# 0.43 X10^3/uL; Monocyte% 13.3 % (0-10); NRBC Flagged by Analyzer 0 % (0-5); Neutrophil # 1.59 X10^3/uL (2.7-7.7); Neutrophil % 49.2 % (47-70); Platelet Count 189 K/mm3 (150-450); RBC Distribution Width CV 15.4 % (11.6-14.6); RBC Distribution Width SD 50.2 fl (35.1-43.9); Red Blood Count 4.37 M/mm3 (4.6-6.2); White Blood Count 3.2 K/mm3 (4.4-11.0)
[2023-11-27 14:49] LABS: International Normalized Ratio 1.1
[2023-11-27 14:55] LABS: Anion Gap 7 (5-15); BUN 18 mg/dL (7-18); BUN/Creat Ratio 16.5 RATIO (10-20); Calcium,Total 8.7 mg/dL (8.5-10.1); Chloride 113 mmol/L (98-107); Creatinine, Serum 1.09 mg/dL (0.70-1.30); EST Glomerular Filtration Rate 71 mL/min (>60); Est Glom Filt Rate - Afr Amer 86 mL/min (>60); Estimated Creatinine Clearance 68.23 ml/min; Glucose 164 mg/dL (74-106); Potassium 3.7 mmol/L (3.5-5.1); Sodium Level 144 mmol/L (136-145); Troponin-I HS (w/2H Reflex) 13 pg/mL (3.0-78.0)
--- NOTE | 2023-11-27 15:00 | RAD_ITS ---
STUDY: X-RAY CHEST REASON FOR EXAM: Male, 73 years old. Chest pain TECHNIQUE: Single AP portable view of the chest. COMPARISON: Comparison is made with prior study dated January 16, 2023. FINDINGS: EKG electrodes are seen. The lungs are clear and expanded. There is no demonstrated pleural abnormality. Normal size heart. Normal mediastinum and clare. Normal visualized pulmonary arteries. There is atherosclerotic tortuosity of the aortic arch and descending thoracic aorta. Normal visualized thoracic spine. Normal visualized ribs, clavicles, and shoulders. There is no demonstrated abnormality of the visualized soft tissue structures of the upper abdomen. RAD/Chest 1 View (Portable) IMPRESSION: No acute abnormality is present. Electronically Signed: Glen Mg MD at 15:22 EST ,
--- NOTE | 2023-11-27 15:22 | ED.VIS.DYS ---
HPI History of Present Illness Chief Complaint: Shortness of Breath Informant: patient Onset/Context/Timing Onset: Weeks (2) Context: gradual Timing: Continuous Quality: Positive for Dyspnea on exertion Worsened by: Exertion Relieved by: Rest Associated Symptoms Negative for cough, rhinorrhea, post nasal drip, ear pain, fever, sore throat, chills, sweats, clear sputum, white sputum, yellow sputum or green sputum Chest Pain: Positive for Continuous and - (Cramping) Narrative Narrative: Patient presents with shortness of breath that has been getting worse over the past 2 weeks. Patient states that it became worse today when he was walking to the mailbox and back. Patient states his breathing is worse with any exertion. Patient states it is better with rest. Patient admits to some right-sided chest pain. Patient describes it as cramping. Patient denies any cough. Patient denies any fevers or chills. Patient denies any nausea or vomiting. PE Risk Factors: Positive for Cancer and Prior DVT or PE; Negative for OCP + Smoking + > 35, Recent immobilization, Recent surgery or Recent travel [facility] Medical History Diabetes mellitus High cholesterol History of echocardiogram History of skin cancer HTN (hypertension) Hypokalemia Multiple myeloma Non-smoker Open wound RBBB Restless legs Wears glasses Home Medications amlodipine 5 mg tablet 5 mg PO DAILY blood pressure 02/09/21 [History Last Taken 01/16/23] atorvastatin 10 mg tablet 10 mg PO DAILY cholesterol 02/09/21 [History Last Taken 01/16/23] glimepiride 2 mg tablet 4 mg PO DAILY DM 04/19/22 [History Last Taken 01/16/23] losartan 50 mg tablet 50 mg PO DAILY BP 04/19/22 [History Last Taken 01/16/23] clonazepam 0.5 mg tablet 0.5 mg PO QHS anxiety 09/16/22 [History Last Taken 01/15/23] linaclotide 145 mcg capsule (Linzess) 145 mcg PO DAILY #30 caps 12/05/22 [Rx Last Taken 01/16/23] Velade See Rx Instructions .Route .COMPLEX CHEMO 01/16/23 [History Last Taken 01/11/23] acyclovir 400 mg tablet 400 mg PO BID anti viral 01/16/23 [History Last Taken 01/16/23 07:00] aspirin 81 mg tablet,delayed release 81 mg PO DAILY heart health 01/16/23 [History Last Taken 01/16/23] dexamethasone 4 mg tablet 40 mg PO WE CHEMO 01/16/23 [History Last Taken 01/11/23] glimepiride 2 mg tablet 2 mg PO DAILY DM 01/16/23 [History Last Taken 01/15/23] lenalidomide 25 mg capsule (Revlimid) 25 mg PO DAILY CHEMO 01/16/23 [History Last Taken 01/16/23] apixaban 5 mg (74 tabs) tablets in a dose pack (Eliquis DVT-PE Treat 30D Start) See Rx Instructions .Route .COMPLEX #74 tabs 01/17/23 [Rx Last Taken Unknown] Allergy/AdvReac Type Severity Reaction Status Date / Time No Known Allergies Allergy Verified 01/16/23 10:02 Family History Other Diabetes Hypertension Surgical History History of wisdom tooth extraction Hx of hernia repair (~1965) Social History Smoking Status: Never smoker alcohol intake: current alcohol intake frequency: a few times a week Alcohol type: beer substance use type: does not use ROS ROS ED Constitutional Constitutional ED: Denies chills or fever(s) Eyes Eyes: Denies blurry vision or change in vision ENT ENT ED: Denies rhinorrhea or sore throat Cardiovascular Cardiovascular: Reports chest pain; Denies palpitations Respiratory/Chest Respiratory/Chest: Reports dyspnea; Denies cough Gastrointestinal Gastrointestinal: Denies nausea or vomiting Genitourinary Genitourinary ED: Denies dysuria or hematuria Musculoskeletal Musculoskeletal: Denies back pain or neck pain Integumentary Denies abscess or rash Neurologic Neurologic: Denies headache(s) or weakness Allergic/Immunologic Allergic/Immunologic ED: Denies mouth swelling or urticaria EXAM Physical Exam Const Vital Signs: 11/27/23 13:58 11/27/23 14:51 11/27/23 14:51 Temperature 96.5 F L Temperature Source Temporal Pulse Rate 57 L 53 L Respiratory Rate 16 14 Respiratory Effort Respiratory Depth Respiratory Pattern Blood Pressure 139/74 H 135/66 H Blood Pressure Mean 95 89 Pulse Ox 100 98 98 Oxygen Delivery Method Room Air Room Air Room Air 11/27/23 14:54 11/27/23 16:32 11/27/23 17:06 Temperature Temperature Source Pulse Rate 50 L 53 L Respiratory Rate 16 18 Respiratory Effort Normal Non-Labored Respiratory Depth Normal Respiratory Pattern Normal Blood Pressure 135/64 H 148/68 H Blood Pressure Mean 87 94 Pulse Ox 99 100 Oxygen Delivery Method Room Air Room Air Room Air 11/27/23 18:29 Temperature Temperature Source Pulse Rate 51 L Respiratory Rate 20 H Respiratory Effort Respiratory Depth Respiratory Pattern Blood Pressure 155/70 H Blood Pressure Mean 98 Pulse Ox 100 Oxygen Delivery Method Room Air Positive well nourished and well developed General Appearance ED: well developed and NAD HEENT Reports moist mucous membranes Neck supple, no meningeal signs and no JVD Resp normal respiratory effort and clear to auscultation bilaterally Cardio regular rhythm Rate: bradycardia GI non-tender and non-distended Palpation: soft Neuro oriented x3, CN's II-XII intact bilaterally and no sensory deficits noted [place] Coma Scale: document GCS findings Spontaneous Obeys Commands Oriented 15 Sensorium / Orientation: alert Speech: speech normal Motor Exam: strength 5/5 throughout Psych mental status grossly normal MDM MDM MDM Narrative Medical decision making narrative: Differential diagnosis includes cardiac dysrhythmia, cardiac ischemia, pulmonary embolism, pneumothorax, pneumonia, viral infection, electrolyte abnormality, and anemia. EKG will be obtained to assess for cardiac dysrhythmia and cardiac ischemia. Chest x-ray will be obtained to assess for pneumonia and pneumothorax. CBC will be obtained to assess for leukocytosis and anemia. Basic metabolic profile will be obtained to assess for electrolyte abnormality and renal function. High-sensitivity troponin will be obtained to assess for cardiac ischemia. 2-hour repeat high-sensitivity troponin will be obtained to assess for ongoing cardiac ischemia. D-dimer will be obtained to assess for pulmonary embolism. Lab Data Attestation: I reviewed the patient's lab results. Lab results narrative: CBC was reviewed. There is a mild anemia with a hemoglobin of 12.8 and hematocrit 39.2. White blood cell count was slightly low at 3.2. Basic metabolic profile was reviewed and was essentially within normal limits. High-sensitivity troponin was reviewed and was normal at 13. PT with INR was reviewed and was essentially within normal limits. 2-hour repeat high-sensitivity troponin was reviewed and was normal at 13. D-dimer was reviewed and was normal at less than 0.27 Labs: Laboratory Results - last 24 hr 11/27/23 11/27/23 14:24 16:35 WBC 3.2 L RBC 4.37 L Hgb 12.8 L Hct 39.2 L MCV 89.7 MCH 29.3 MCHC 32.7 RDW Std Deviation 50.2 H RDW Coeff of John 15.4 H Plt Count 189 MPV 9.9 Immature Gran % (Auto) 0.300 Neut % (Auto) 49.2 Lymph % (Auto) 27.6 Boyle % (Auto) 13.3 H Eos % (Auto) 8.7 H Baso % (Auto) 0.9 Absolute Neuts (auto) 1.6 L Absolute Lymphs (auto) 0.89 Nucleated RBC % 0 PT 14.0 INR 1.1 D-Dimer Quant (PE/DVT) < 0.27 L Sodium 144 Potassium 3.7 Chloride 113 H Carbon Dioxide 24.0 Anion Gap 7 BUN 18 Creatinine 1.09 Estim Creat Clear Calc 68.23 Est GFR (MDRD) Af Amer 86 Est GFR (MDRD) Non-Af 71 BUN/Creatinine Ratio 16.5 Glucose 164 H Calcium 8.7 Troponin I High Sens 13 13 Radiography Chest X-Ray - ED: 1 View, Read by ED Physician, Read by Radiologist and No Acute Disease Diagnostic Testing: Clinical Impression(s) from Imaging Studies Chest X-Ray 11/27/23 15:00 IMPRESSION: No acute abnormality is present. Electronically Signed: Glen Mg MD at 15:22 EST , Portable 1 view chest x-ray was obtained. On my independent interpretation, lung rashid are clear. There is normal cardiac silhouette. Bony thorax is normal. There is no acute process noted. Radiologist also interpreted the x-ray and agrees. EKG Initial EKG: Interpretation: Sinus Bradycardia (57), RBBB and Non-Specific ST Changes Comments: EKG was obtained. On my independent interpretation, it shows sinus bradycardia with a rate of 57. SC interval was normal at 134 ms. QRS interval was prolonged at 166 ms. QTc interval was normal at 469 ms. Duncan was normal. There is a right bundle branch block pattern noted. There are nonspecific ST-T wave changes noted. There is no acute change compared to previous EKG dated 01/16/2023. Prior EKG tracings: available for review Prior: Unchanged (01/16/2023) Treatment and Re-Evaluation :: Patient was advised of his findings. Patient's main concern was pulmonary embolism. Patient was advised that his laboratory tests were negative for that. Patient was instructed to follow-up with his primary care physician in 3 to 5 days. Patient was instructed return if worse in any way. Patient understood and was agreeable with plan. All questions were answered. Discharge Plan Triage Chief Complaint: Shortness of Breath ED Provider: Gabriel Howard Dx/Rx/DC Orders Clinical Impression: Dyspnea, Hx of multiple myeloma Instructions: ED Dyspnea Prescriptions: No Action atorvastatin 10 mg tablet 10 mg PO DAILY amlodipine 5 mg tablet 5 mg PO DAILY Linzess 145 mcg capsule 145 mcg PO DAILY Qty: 30 2RF Rx Instructions: take 30 minutes prior to first intake of the day. losartan 50 mg tablet 50 mg PO DAILY glimepiride 2 mg tablet 4 mg PO DAILY Hold Instructions: Hold if glucose less than 130 mg/dl. Resume from 04/22/2022 clonazepam 0.5 mg tablet 0.5 mg PO QHS acyclovir 400 mg tablet 400 mg PO BID aspirin 81 mg Tablet,Delayed Release (Dr/Ec) 81 mg PO DAILY Hold Instructions: Resume on 01/25/23. lenalidomide [Revlimid] 25 mg capsule 25 mg PO DAILY Hold Instructions: Resume on 01/18/23. glimepiride 2 mg tablet 2 mg PO DAILY dexamethasone 4 mg tablet 40 mg PO WE Patient Comments: TAKE 10 TABLETS BY MOUTH ONCE A WEEK ON DAYS 1,8,15,AND 22 OF EACH CYCLE Velade See Rx Instructions .ROUTE .COMPLEX Rx Instructions: GETS IV WEEKLY AT DR MCCAIN'S OFFICE Denilson DVT-PE Treat 30D Start 5 mg (74 tabs) tablets,dose pack See Rx Instructions .ROUTE .COMPLEX Qty: 74 0RF Rx Instructions: Take two tabs twice daily for 7 days followed by one tab twice daily Primary Care Provider: Henrry Lugo Referrals: Henrry Lugo MD [Primary Care Provider] - 3-5 Days Disposition Disposition: Home, Self Care
[2023-11-27 16:29] LABS: Reflex Troponin-HS? (from REC) Y
[2023-11-27 16:47] LABS: D-Dimer Quantitative (DVT/PE) < 0.27 FEU/ug/m (0.27-0.49)
[2023-11-27 16:56] LABS: Troponin-I HS 13 pg/mL (3.0-78.0)
== END 2023-11-27 19:04 | disposition home or self-care (01) ==
PROVIDERS: Emergency Provider Emergency Medicine; PCP Family Medicine; Visit Provider Emergency Medicine
DX: R06.09 Other forms of dyspnea (principal); E11.9 Type 2 diabetes mellitus without complications; Z85.820 Personal history of malignant melanoma of skin; R07.9 Chest pain, unspecified; E78.00 Pure hypercholesterolemia, unspecified; I10 Essential (primary) hypertension; R06.02 Shortness of breath
CPT/HCPCS: 71045; 80048; 84484; 85025; 85379; 85610; 93005; 99284

== ENCOUNTER → 2023-12-28 | Outpatient (CLI) | payer MEDICARE, OTHER, SELFPAY ==
--- NOTE | 2023-12-28 12:09 | STRESSREP ---
Stress Test Report Exercise myocardial perfusion stress test. 73-year-old man with a history of chest pain Stress protocol: Resting EKG demonstrates normal sinus rhythm with a right bundle branch block and a rate of 75 bpm resting blood pressure is 132/70 mmHg. The patient exercised according to the regular Mp protocol for a total duration of 8 minutes attaining a maximum heart rate of 134 bpm which was 89% of maximum predicted heart rate; the maximum workload was 10.1 metabolic equivalents. At rest there were no ST or T wave changes noted to suggest ischemia and at peak exercise upsloping ST changes only were noted which did not meet the criteria for ischemia. No clinical angina was noted the test was terminated due to the target heart rate being achieved/fatigue. The peak blood pressure was 190/70 mmHg. Rate-pressure product was 18,000. Myocardial perfusion protocol. 11.7 mCi of technetium 99m sestamibi was injected at rest. The patient exercised according to regular Mp protocol for total duration of 8 minutes and at peak exercise 35 mCi of technetium 99m sestamibi was injected stress images were obtained stress and rest images were reconstructed in comparing the short axis vertical long and horizontal long axis. Gated images were also obtained. Perfusion SPECT analysis: Review of the stress images demonstrate normal uptake of tracer noted in all areas of the myocardium. The resting images similarly demonstrate normal uptake of tracer noted in all areas of the myocardium. No areas of reversibility are noted to suggest ischemia no previous infarct was noted. Gated SPECT analysis: The gated ejection fraction is 63%. Conclusion: Normal exercise myocardial perfusion stress test at a high workload Preserved ejection fraction.
== END | disposition home or self-care (01) ==
LOC: CVS 06:25
PROVIDERS: PCP Family Medicine; Referring Provider Family Medicine; Visit Provider Family Medicine
DX: R07.9 Chest pain, unspecified (principal)
CPT/HCPCS: 78452; 93017; A9500; A4216

== ENCOUNTER 2024-01-27 08:51 | Emergency (ER) | payer MEDICARE, OTHER, SELFPAY ==
[2024-01-27 08:51] VITALS: BP 141/74; PULSE 67; RESP 15; TEMP 36.8; O2SAT 100
[2024-01-27 08:52] VITALS: BP 141/74; PULSE 53; RESP 19; TEMP 36.8; O2SAT 100; BMI 24.0
--- NOTE | 2024-01-27 09:04 | EX.ED.DYSGE1 ---
HPI History of Present Illness Chief Complaint: Hypoglycemia Informant: patient and friend Onset/Context/Timing Onset: Today Context: Gradual Onset Timing: Continuous Quality: Confusion Location: Generalized Worsened by: Nothing Relieved by: Glucose Narrative Narrative: Patient presents with hypoglycemic episode that began this morning. Patient states he woke up this morning and his noted that he was confused. Patient states that his told him he was talking gibberish. told the patient to go back to bed. Patient did this. called EMS. EMS noted that the patient's blood sugar was low. EMS administered glucose and patient is feeling better. Patient has had influenza recently. Patient has a history of type 2 diabetes and multiple myeloma. Patient states his last meal was 1930 last night. [facility] Medical History Diabetes mellitus High cholesterol History of echocardiogram History of skin cancer HTN (hypertension) Hypokalemia Multiple myeloma Non-smoker Open wound RBBB Restless legs Wears glasses Home Medications amlodipine 5 mg tablet 5 mg PO DAILY blood pressure 02/09/21 [History Last Taken 01/16/23] atorvastatin 10 mg tablet 10 mg PO DAILY cholesterol 02/09/21 [History Last Taken 01/16/23] glimepiride 2 mg tablet 4 mg PO DAILY DM 04/19/22 [History Last Taken 01/16/23] losartan 50 mg tablet 50 mg PO DAILY BP 04/19/22 [History Last Taken 01/16/23] clonazepam 0.5 mg tablet 0.5 mg PO QHS anxiety 09/16/22 [History Last Taken 01/15/23] linaclotide 145 mcg capsule (Linzess) 145 mcg PO DAILY #30 caps 12/05/22 [Rx Last Taken 01/16/23] Velade See Rx Instructions .Route .COMPLEX CHEMO 01/16/23 [History Last Taken 01/11/23] acyclovir 400 mg tablet 400 mg PO BID anti viral 01/16/23 [History Last Taken 01/16/23 07:00] aspirin 81 mg tablet,delayed release 81 mg PO DAILY heart health 01/16/23 [History Last Taken 01/16/23] dexamethasone 4 mg tablet 40 mg PO WE CHEMO 01/16/23 [History Last Taken 01/11/23] apixaban 5 mg (74 tabs) tablets in a dose pack (Eliquis DVT-PE Treat 30D Start) See Rx Instructions .Route .COMPLEX #74 tabs 01/17/23 [Rx Last Taken Unknown] glimepiride 4 mg tablet 4 mg PO BID 01/27/24 [History Last Taken Unknown] lenalidomide 10 mg capsule (Revlimid) 10 mg PO DAILY 01/27/24 [History Last Taken Unknown] oseltamivir 75 mg capsule 75 mg PO BID 01/27/24 [History Last Taken Unknown] rivaroxaban 20 mg tablet (Xarelto) 20 mg PO QPM 01/27/24 [History Last Taken Unknown] Allergy/AdvReac Type Severity Reaction Status Date / Time No Known Allergies Allergy Verified 01/27/24 08:58 Family History Other Diabetes Hypertension Surgical History History of wisdom tooth extraction Hx of hernia repair (~1965) Social History Smoking Status: Never smoker alcohol intake: current alcohol intake frequency: a few times a week Alcohol type: beer substance use type: does not use ROS ROS ED Constitutional Constitutional ED: Reports chills and fever(s) Eyes Eyes: Denies blurry vision or change in vision ENT ENT ED: Denies rhinorrhea or sore throat Cardiovascular Cardiovascular: Denies chest pain or palpitations Respiratory/Chest Respiratory/Chest: Reports cough; Denies dyspnea Gastrointestinal Gastrointestinal: Denies nausea or vomiting Genitourinary Genitourinary ED: Denies dysuria or hematuria Musculoskeletal Musculoskeletal: Denies back pain or neck pain Integumentary Denies abscess or rash Neurologic Neurologic: Denies headache(s) or weakness Allergic/Immunologic Allergic/Immunologic ED: Denies mouth swelling or urticaria EXAM Physical Exam Const Vital Signs: 01/27/24 08:51 01/27/24 08:52 01/27/24 08:59 Temperature 98.2 F 98.2 F Temperature Source Oral Oral Pulse Rate 67 53 L Respiratory Rate 15 19 H Respiratory Effort Normal Non-Labored Respiratory Pattern Normal Blood Pressure 141/74 H 141/74 H Blood Pressure Mean 96 96 Pulse Ox 100 100 Oxygen Delivery Method Room Air Room Air Positive well nourished and well developed General Appearance ED: well developed and NAD HEENT Reports moist mucous membranes Neck supple and no JVD Chest Wall inspection of chest normal and palpation of chest normal Resp normal respiratory effort and clear to auscultation bilaterally Cardio regular rate and regular rhythm GI non-tender and non-distended Palpation: soft Extremity normal to inspection General Extremety ED: Negative for edema or tenderness General Extremity: Negative for edema Neuro oriented x3, CN's II-XII intact bilaterally and no sensory deficits noted Sensorium / Orientation: alert Motor Exam: strength 5/5 throughout Psych mental status grossly normal MDM MDM MDM Narrative Medical decision making narrative: Differential diagnosis includes hypoglycemia, electrolyte abnormality, and dehydration. Basic metabolic profile will be obtained to assess for electrolyte abnormality, renal function, and glucose. Lab Data Attestation: I reviewed the patient's lab results. Lab results narrative: Basic metabolic profile was reviewed. Potassium was low at 3.1. BUN was slightly elevated at 24 and creatinine was 1.41. Glucose was 115. Treatment and Re-Evaluation :: Patient was given IV fluids. Patient was given a regular diet. Patient was given a dose of oral potassium. Discharge Plan Triage Chief Complaint: Hypoglycemia ED Provider: Gabriel Howard Dx/Rx/DC Orders Clinical Impression: Hypoglycemia, Hypokalemia Instructions: ED Hypoglycemia Oral Diabetic Med, ED Hypokalemia Prescriptions: No Action atorvastatin 10 mg tablet 10 mg PO DAILY amlodipine 5 mg tablet 5 mg PO DAILY Linzess 145 mcg capsule 145 mcg PO DAILY Qty: 30 2RF Rx Instructions: take 30 minutes prior to first intake of the day. losartan 50 mg tablet 50 mg PO DAILY glimepiride 2 mg tablet 4 mg PO DAILY Hold Instructions: Hold if glucose less than 130 mg/dl. Resume from 04/22/2022 clonazepam 0.5 mg tablet 0.5 mg PO QHS acyclovir 400 mg tablet 400 mg PO BID aspirin 81 mg Tablet,Delayed Release (Dr/Ec) 81 mg PO DAILY Hold Instructions: Resume on 01/25/23. dexamethasone 4 mg tablet 40 mg PO WE Patient Comments: TAKE 10 TABLETS BY MOUTH ONCE A WEEK ON DAYS 1,8,15,AND 22 OF EACH CYCLE Velade See Rx Instructions .ROUTE .COMPLEX Rx Instructions: GETS IV WEEKLY AT DR MCCAIN'S OFFICE Denilson DVT-PE Treat 30D Start 5 mg (74 tabs) tablets,dose pack See Rx Instructions .ROUTE .COMPLEX Qty: 74 0RF Rx Instructions: Take two tabs twice daily for 7 days followed by one tab twice daily oseltamivir 75 mg capsule 75 mg PO BID glimepiride 4 mg tablet 4 mg PO BID lenalidomide [Revlimid] 10 mg capsule 10 mg PO DAILY Xarelto 20 mg tablet 20 mg PO QPM Primary Care Provider: Henrry Lugo Referrals: Henrry Lugo MD [Primary Care Provider] - 3-5 Days Disposition Disposition: Home, Self Care
[2024-01-27 10:02] LABS: Anion Gap 7 (5-15); BUN 24 mg/dL (7-18); Calcium,Total 7.8 mg/dL (8.5-10.1); Chloride 111 mmol/L (98-107); Creatinine, Serum 1.41 mg/dL (0.70-1.30); EST Glomerular Filtration Rate 53 mL/min (>60); Est Glom Filt Rate - Afr Amer 64 mL/min (>60); Estimated Creatinine Clearance 54.31 ml/min; Glucose 115 mg/dL (74-106); Potassium 3.1 mmol/L (3.5-5.1); Sodium Level 141 mmol/L (136-145)
[2024-01-27] MEDS: 0.9% Normal Saline (1000mL) 1,000 ML 1000 ML IV (10:23)
[2024-01-27] MEDS: Potassium Chloride Oral Tablet 20 MEQ 40 MEQ PO (10:23)
[2024-01-27 11:15] VITALS: BP 138/63; PULSE 55; RESP 15
[2024-01-27 11:24] VITALS: BP 128/76; PULSE 71; RESP 16; TEMP 36.8; O2SAT 97
== END 2024-01-27 11:25 | disposition home or self-care (01) ==
PROVIDERS: Emergency Provider Emergency Medicine; PCP Family Medicine; Visit Provider Emergency Medicine
DX: R41.0 Disorientation, unspecified (principal); E11.649 Type 2 diabetes mellitus with hypoglycemia without coma; E87.6 Hypokalemia; E78.00 Pure hypercholesterolemia, unspecified; Z85.828 Personal history of other malignant neoplasm of skin; I10 Essential (primary) hypertension; Z79.899 Other long term (current) drug therapy; Z79.84 Long term (current) use of oral hypoglycemic drugs; Z79.82 Long term (current) use of aspirin
CPT/HCPCS: 80048; 96360; 99283; J7030; A4216

== ENCOUNTER 2024-01-31 17:25 | Inpatient (IN) | payer MEDICARE, OTHER, SELFPAY ==
[2024-01-31] VITALS (8 sets, daily range): BP systolic 129–150; BP diastolic 57–78; PULSE 58–89; RESP 14–21; TEMP 36.1–37.5; O2SAT 96–100; BMI 23.8
--- NOTE | 2024-01-31 17:57 | EKG12_ITS ---
Test Reason : Blood Pressure : / mmHG Vent. Rate : 062 BPM Atrial Rate : 062 BPM P-R Int : 144 ms QRS Dur : 148 ms QT Int : 474 ms P-R-T Axes : 056 -28 032 degrees QTc Int : 481 ms Sinus rhythm with occasional Premature ventricular complexes Right bundle branch block Abnormal ECG Confirmed by Thom Yan ([id number]), supervising editor trailer MARLY LIND ([id number]) on 02/02/2024 7:15:44 AM Referred By: Kristan Confirmed By:Thom Yan
--- NOTE | 2024-01-31 17:57 | CT_ITS ---
INDICATION: Mental status change EXAMINATION: CT BRAIN - CT Head or Brain W/O Contrast Injection TECHNIQUE: Multiple axial images were obtained of the head without intravenous contrast. A radiation dose optimization technique was used for this scan. IV Contrast dosage and agent: None. RADIATION DOSAGE (If Supplied By Facility): CTDIvol = ( 44.99 ) mGy, DLP = ( 1277.26 ) mGycm COMPARISON: No relevant prior examinations for comparison FINDINGS: HEMISPHERES: 1. The cerebral parenchyma, ventricular system, subarachnoid spaces have normal configuration and density. There is a normal gyral pattern. There is normal padilla/white differentiation. No midline shift.. 2. Diffuse involutional change and chronic microvascular deep white matter disease. No intraparenchymal mass, hemorrhage, or acute territorial infarct. CEREBELLUM - BRAINSTEM: The cerebellum, brainstem, basilar and suprasellar cisterns have normal appearance. No Chiari malformation. PITUITARY: Infundibulum and pituitary have normal configuration. Midline structures appear normal. CSF SPACES: Appropriate for age. No hydrocephalus. Basal cisterns are patent. VESSELS: 1. No significant vascular calcifications in the cavernous carotid vessels. 2. No hyperdense vascular signs noted.. ORBITS AND PARANASAL SINUSES: 1. Normal appearance of the bony orbits. Normal appearance of the globes and retrobulbar soft tissues.. 2. Bilateral maxillary sinus disease greater on the RIGHT than LEFT. Ethmoid sinus disease is present. BONY ELEMENTS: Bony elements of the cranial vault, facial skeleton and skull base have normal appearance. SCALP AND SOFT TISSUES: Normal appearance of the soft tissues of the scalp and the visualized face OTHER: None ASPECTS Score for Acute Strokes: 10 CT/Brain/Head without Contrast IMPRESSION: 1. Diffuse involutional change and mild chronic microvascular deep white matter disease. 2. No intracranial mass, hemorrhage or acute territorial infarct. 3. Bilateral maxillary and ethmoid sinus disease. Electronically Signed: Jair Stone MD at 19:30 EDT ,
[2024-01-31 18:03] LABS: Bedside Glucose 78 mg/dL (74-106)
--- NOTE | 2024-01-31 18:22 | EDS_ITS ---
HPI History of Present Illness Chief Complaint: Confusion Informant: patient and spouse/S.O. Onset/Context/Timing Onset: Days Context: Gradual Onset Timing: Continuous Quality: Confusion Location: Generalized Worsened by: Nothing Relieved by: Nothing Narrative Narrative: Patient presents with confusion that became worse today. Patient was seen here recently for confusion and was diagnosed with hypoglycemia. Patient's confusion improved after receiving glucose. Patient followed up with his primary care physician today who noted that the patient was still more confused. states patient has been percent dilute confused for the past couple days. states that waxes and wanes. states nothing makes it better nothing makes it worse. also reports that the patient had an episode of influenza A approximately 1 month ago. [facility] Medical History (Updated 01/31/24 @ 21:[address] Gabriel Howard DO) Diabetes mellitus High cholesterol History of echocardiogram History of skin cancer HTN (hypertension) Hypokalemia Multiple myeloma Non-smoker Open wound RBBB Restless legs Wears glasses Home Medications amlodipine 5 mg tablet 5 mg PO DAILY blood pressure 02/09/21 [History Last Taken 01/16/23] atorvastatin 10 mg tablet 10 mg PO DAILY cholesterol 02/09/21 [History Last Taken 01/16/23] losartan 50 mg tablet 50 mg PO DAILY BP 04/19/22 [History Last Taken 01/16/23] clonazepam 0.5 mg tablet 0.5 mg PO QHS anxiety 09/16/22 [History Last Taken 01/15/23] Velade See Rx Instructions .Route .COMPLEX CHEMO 01/16/23 [History Last Taken 01/11/23] acyclovir 400 mg tablet 400 mg PO BID anti viral 01/16/23 [History Last Taken 01/16/23 07:00] glimepiride 4 mg tablet 4 mg PO BID 01/27/24 [History Last Taken Unknown] lenalidomide 10 mg capsule (Revlimid) 10 mg PO DAILY 01/27/24 [History Last Taken Unknown] rivaroxaban 20 mg tablet (Xarelto) 20 mg PO QPM 01/27/24 [History Last Taken Unknown] Allergy/AdvReac Type Severity Reaction Status Date / Time No Known Allergies Allergy Verified 01/31/24 17:28 Family History Other Diabetes Hypertension Surgical History (Updated 01/31/24 @ 21:[address] Gabriel Howard, ) History of wisdom tooth extraction Hx of hernia repair (~1965) Hx of stem cell transplant Social History Smoking Status: Never smoker alcohol intake: current alcohol intake frequency: a few times a week Alcohol type: beer substance use type: does not use ROS ROS ED Constitutional Constitutional ED: Reports fever(s); Denies chills Eyes Eyes: Denies blurry vision or change in vision ENT ENT ED: Reports rhinorrhea; Denies sore throat Cardiovascular Cardiovascular: Denies chest pain or palpitations Respiratory/Chest Respiratory/Chest: Reports cough and dyspnea Gastrointestinal Gastrointestinal: Denies nausea or vomiting Genitourinary Genitourinary ED: Denies dysuria or hematuria Musculoskeletal Musculoskeletal: Denies back pain or neck pain Integumentary Denies abscess or rash Neurologic Neurologic: Denies headache(s) or weakness Allergic/Immunologic Allergic/Immunologic ED: Denies mouth swelling or urticaria EXAM Physical Exam Const Vital Signs: 01/31/24 17:26 01/31/24 17:28 01/31/24 19:00 Temperature 96.9 F L 96.9 F L 99.5 F H Temperature Source Temporal Temporal Oral Pulse Rate 58 L 59 L 62 Respiratory Rate 18 18 14 Blood Pressure 140/77 H 138/66 H 129/58 H Blood Pressure Mean 98 90 81 Pulse Ox 100 100 99 Oxygen Delivery Method Room Air Room Air Room Air 01/31/24 20:00 01/31/24 21:00 Temperature 97.8 F 97.8 F Temperature Source Temporal Temporal Pulse Rate 89 78 Respiratory Rate 16 16 Blood Pressure 150/57 H 147/78 H Blood Pressure Mean 88 101 Pulse Ox 99 98 Oxygen Delivery Method Room Air Room Air Positive well nourished and well developed General Appearance ED: well developed and NAD HEENT Reports moist mucous membranes Neck supple and no JVD Resp normal respiratory effort and clear to auscultation bilaterally Cardio regular rate and regular rhythm GI non-tender and non-distended Palpation: soft Neuro CN's II-XII intact bilaterally and no sensory deficits noted Neuro Narrative: Patient does answer questions appropriately. Sensorium / Orientation: alert Motor Exam: strength 5/5 throughout MDM MDM MDM Narrative Medical decision making narrative: Differential diagnosis includes flexion, sepsis, COVID-19, influenza, RSV, pneumonia, urinary tract infection, stroke, intracranial bleeding, cardiac dysrhythmia, and cardiac ischemia. CT scan of the brain will be obtained to assess for intracranial bleeding and stroke. Chest x-ray will be obtained to assess for pneumonia. EKG will be obtained to assess for cardiac dysrhythmia and cardiac ischemia. CBC will be obtained to assess for leukocytosis and anemia. Comprehensive metabolic profile will be obtained to assess for hepatic function, renal function, and electrolyte abnormality. Urinalysis will be obtained to assess for urinary tract infection and hematuria. PT with INR and PTT will be obtained to assess for coagulopathy. High-sensitivity troponin will be obtained to assess for cardiac ischemia. Serum lactate will be obtained to assess for sepsis. COVID-19, influenza, and RSV PCR will be obtained to assess for viral illness. Lab Data Attestation: I reviewed the patient's lab results. Lab results narrative: Initial BGT was obtained and was 78. CBC was reviewed. White blood cell count was low at 1.3. Hemoglobin was 12.4 hematocrit was 36.7. Platelets were slightly low at 126. Absolute neutrophil count was 0.6. PT with INR and PTT were reviewed. Pro time was 25 and INR is 2.3. PTT was normal at 32.8. Comprehensive metabolic profile was reviewed and was essentially within normal limits. Glucose was elevated at 199. Serum lactate was reviewed and was slightly elevated at 2.2. High-sensitivity troponin was reviewed and was normal at 17. COVID-19 PCR was reviewed and was negative. Influenza PCR was reviewed and was positive for influenza A and negative for influenza B. RSV PCR was reviewed and was negative. Labs: Laboratory Results - last 24 hr 01/31/24 01/31/24 01/31/24 17:45 18:30 19:44 WBC 1.3 L* RBC 4.10 L Hgb 12.4 L Hct 36.7 L MCV 89.5 MCH 30.2 MCHC 33.8 RDW Std Deviation 45.5 H RDW Coeff of John 14.0 Plt Count 126 L MPV 11.3 Immature Gran % (Auto) 0.800 Neut % (Auto) 47.3 Lymph % (Auto) 30.7 [place] % (Auto) 15.7 H Eos % (Auto) 3.9 Baso % (Auto) 1.6 H Absolute Neuts (auto) 0.6 L Absolute Lymphs (auto) 0.39 L Nucleated RBC % 0 Differential Comment SCANNED Diff Path Review May foll PT 25.0 H INR 2.3 APTT 32.8 Sodium 138 Potassium 3.5 Chloride 109 H Carbon Dioxide 24.0 Anion Gap 5 BUN 17 Creatinine 1.27 Estim Creat Clear Calc 60.29 Est GFR (MDRD) Af Amer 72 Est GFR (MDRD) Non-Af 59 L BUN/Creatinine Ratio 13.4 Glucose 199 H Lactic Acid 2.2 H* Calcium 8.3 L Total Bilirubin 0.80 AST 17 ALT 25 Alkaline Phosphatase 46 Troponin I High Sens 17 Total Protein 6.7 Albumin 3.0 L Globulin 3.7 Albumin/Globulin Ratio 0.8 L Urine Color Urine Clarity Urine pH Ur Specific [place] Urine Protein Urine Glucose (UA) Urine Ketones Urine Occult Blood Urine Nitrite Urine Bilirubin Urine Urobilinogen Ur Leukocyte Esterase Urine RBC Urine WBC Ur Squamous Epith Cells Urine Bacteria Urine Mucus POC Glucose 78 153 H 01/31/24 21:00 WBC RBC Hgb Hct MCV MCH MCHC RDW Std Deviation RDW Coeff of John Plt Count MPV Immature Gran % (Auto) Neut % (Auto) Lymph % (Auto) [place] % (Auto) Eos % (Auto) Baso % (Auto) Absolute Neuts (auto) Absolute Lymphs (auto) Nucleated RBC % Differential Comment Diff Path Review PT INR APTT Sodium Potassium Chloride Carbon Dioxide Anion Gap BUN Creatinine Estim Creat Clear Calc Est GFR (MDRD) Af Amer Est GFR (MDRD) Non-Af BUN/Creatinine Ratio Glucose Lactic Acid Calcium Total Bilirubin AST ALT Alkaline Phosphatase Troponin I High Sens Total Protein Albumin Globulin Albumin/Globulin Ratio Urine Color Yellow Urine Clarity Clear Urine pH 6.0 Ur Specific [place] 1.015 Urine Protein 100 H Urine Glucose (UA) 250 H Urine Ketones 5 H Urine Occult Blood 25 H Urine Nitrite Negative Urine Bilirubin Negative Urine Urobilinogen Normal Ur Leukocyte Esterase Negative Urine RBC 0-5 SEEN Urine WBC 0 SEEN Ur Squamous Epith Cells 0 SEEN Urine Bacteria RARE Urine Mucus 1+ POC Glucose Radiography Chest X-Ray - ED: 1 View, Read by ED Physician and Read by Radiologist Diagnostic Testing: Clinical Impression(s) from Imaging Studies Brain CT 01/31/24 17:57 IMPRESSION: 1. Diffuse involutional change and mild chronic microvascular deep white matter disease. 2. No intracranial mass, hemorrhage or acute territorial infarct. 3. Bilateral maxillary and ethmoid sinus disease. Electronically Signed: Jair Stone MD at 19:30 EDT , Chest X-Ray 01/31/24 21:15 IMPRESSION: 1. No evidence of acute cardiopulmonary process Electronically Signed: Jair Stone MD at 21:36 EDT , CT scan of the brain was obtained. There is no acute intracranial abnormality. This was interpreted by the radiologist and was also independently reviewed by myself. EKG Initial EKG: Attestation: I personally reviewed and interpreted this EKG as follows: Interpretation: Sinus Rhythm (62), RBBB and Non-Specific ST Changes Comments: EKG was obtained. On my independent interpretation, it showed a normal sinus rhythm with a rate of 62. GA interval was within normal limits at 144 ms. QRS interval was slightly prolonged at 148 ms. QTc interval was within normal limits at 481 ms. [place] was borderline left axis deviation at -28. There are nonspecific ST-T wave changes. Prior EKG tracings: available for review Prior: Unchanged (11/27/2023) Management Discussion w/another healthcare provider: Hospitalist and Agriculture Teacher Treatment and Re-Evaluation :: Patient was given IV fluids. Since the patient is neutropenic. With an elevated lactate, patient was given a dose of Zosyn. Case was discussed with Dr. Mccain from oncology. He agrees with admission and covering the patient with Zosyn. Case was discussed with the hospitalist. He will admit the patient to PCU. Patient and family understood and was agreeable with the plan. All questions were answered. Discharge Plan Triage Chief Complaint: Confusion ED Provider: Gabriel Howard Dx/Rx/DC Orders Clinical Impression: Confusion, Hx of multiple myeloma, Acidosis, lactic, Neutropenia, Influenza A, Pancytopenia Prescriptions: No Action atorvastatin 10 mg tablet 10 mg PO DAILY amlodipine 5 mg tablet 5 mg PO DAILY losartan 50 mg tablet 50 mg PO DAILY clonazepam 0.5 mg tablet 0.5 mg PO QHS acyclovir 400 mg tablet 400 mg PO BID Velade See Rx Instructions .ROUTE .COMPLEX Rx Instructions: GETS IV WEEKLY AT DR MCCAIN'S OFFICE glimepiride 4 mg tablet 4 mg PO BID lenalidomide [Revlimid] 10 mg capsule 10 mg PO DAILY Xarelto 20 mg tablet 20 mg PO QPM Primary Care Provider: Henrry Lugo Referrals: Henrry Lugo MD [Primary Care Provider] - Disposition Disposition: Acute Care Hospital [facility]
[2024-01-31] MEDS: 0.9% Normal Saline (500mL Bag) 500 ML 1000 ML IV (18:39)
[2024-01-31 19:00] LABS: Absolute Lymphocyte Count 0.39 X10^3/uL (0.83-4.51); Absolute Neutrophil Count 0.6 X10^3/uL (2.0-7.7); Basophil# 0.02 X10^3/uL; Basophil% 1.6 % (0-1); Eosinophil# 0.05 X10^3/uL; Eosinophils% 3.9 % (0-5); Hematocrit 36.7 % (40-54); Hemoglobin 12.4 g/dL (13.0-16.5); Lymphocyte # 0.39 X10^3/ul (0.83-4.51); Lymphocyte % 30.7 % (19-41); Mean Corp Hgb Conc 33.8 g/dL (32-36); Mean Corpuscular Hgb 30.2 pg (27.0-32.0); Mean Corpuscular Volume 89.5 fL (80-94); Mean Platelet Vol. 11.3 fl (6.2-12.0); Monocyte% 15.7 % (0-10); NRBC Flagged by Analyzer 0 % (0-5); Neutrophil % 47.3 % (47-70); POSITIVE COUNT YES; POSITIVE DIFFERENTIAL YES; POSITIVE MORPHOLOGY YES; Platelet Count 126 K/mm3 (150-450); RBC Distribution Width SD 45.5 fl (35.1-43.9)
[2024-01-31 19:12] LABS: Differential Indicated SCAN CRITERIA MET
[2024-01-31 19:13] LABS: White Blood Count 1.3 K/mm3 (4.4-11.0)
[2024-01-31 19:15] LABS: ALB/GLOB Ratio 0.8 RATIO (0.9-2.4); AST(SGOT) 17 U/L (15-37); Alanine Aminotransfer ALT/SGPT 25 U/L (16-61); Alkaline Phosphatase 46 U/L (45-117); Anion Gap 5 (5-15); BUN 17 mg/dL (7-18); BUN/Creat Ratio 13.4 RATIO (10-20); Calcium,Total 8.3 mg/dL (8.5-10.1); Chloride 109 mmol/L (98-107); Creatinine, Serum 1.27 mg/dL (0.70-1.30); EST Glomerular Filtration Rate 59 mL/min (>60); Est Glom Filt Rate - Afr Amer 72 mL/min (>60); Estimated Creatinine Clearance 60.29 ml/min; Globulin 3.7 g/dL (2.2-4.2); Glucose 199 mg/dL (74-106); Potassium 3.5 mmol/L (3.5-5.1); Protein, Total 6.7 g/dL (6.4-8.2); Sodium Level 138 mmol/L (136-145); Troponin-I HS 17 pg/mL (3.0-78.0)
[2024-01-31 19:18] LABS: International Normalized Ratio 2.3
[2024-01-31 19:19] LABS: Partial Thromboplast Time 32.8 Seconds (24.1-36.2)
[2024-01-31 19:34] LABS: Lactic Acid 2.2 mmol/L (0.4-1.9)
[2024-01-31 19:41] LABS: Differential Comment SCANNED
[2024-01-31 20:05] LABS: Bedside Glucose 153 mg/dL (74-106)
[2024-01-31 21:05] LABS: Squamous Epithelial Cells - UA 0 SEEN /hpf (0-5); White Blood Cells 0 SEEN /hpf (0-5)
[2024-01-31 21:06] LABS: Color, Urine Yellow (Yellow); Glucose, Dipstick 250 mg/dl (Normal); Ketone-Dipstick 5 mg/dl (Negative); Leukocyte Esterase-Dipstick Negative /ul (Negative); Nitrite-Dipstick Negative (Negative); Occult Blood-Urine 25 /ul (Negative); Protein-Dipstick 100 mg/dl (Negative); Specific Gravity, Urine 1.015 (1.002-1.030); Urine Bilirubin Dipstick Negative (Negative); Urine Clarity Clear (Clear); Urine Urobilinogen Normal (Normal)
[2024-01-31] MEDS: Piperacil/Tazobactam 4.5 GM in 0.9% Normal Saline (100mL MB+) 100 ML IV (21:13)
--- NOTE | 2024-01-31 21:15 | RAD_ITS ---
INDICATION: Cough EXAMINATION/TECHNIQUE: X-RAY - XR Chest 1 View COMPARISON: 11/27/2023 FINDINGS: LIFE-SUPPORT AND LINES: 1. None HEART AND VESSELS: The cardiac silhouette, pulmonary vasculature have normal appearance. No evidence of congestive failure. LUNGS AND PLEURAL SPACES: Lungs are clear. No focal infiltrate, consolidation or effusions. No evidence of pneumothorax. No pulmonary mass is noted. MEDIASTINUM AND HILAR REGIONS: No masses adenopathy noted. No areas of calcification. Visualized upper airway is normal in position. BONY ELEMENTS: No acute bony changes noted. RAD/Chest 1 View (Portable) IMPRESSION: 1. No evidence of acute cardiopulmonary process Electronically Signed: Jair Stone MD at 21:36 EDT ,
[2024-01-31 21:20] LABS: Bacteria RARE /hpf (None Seen); Mucous, Urine 1+ /hpf (<or=2+)
[2024-01-31 21:21] LABS: Red Blood Cells-Urine 0-5 SEEN /hpf (0-5)
--- NOTE | 2024-01-31 22:22 | PCM.HP.STD ---
HPI - General General Date of Admission: 01/31/24 Date of Service: 01/31/24 Chief Complaint: Confusion and Low-grade Fever. HPI Narrative IRENE JOSEPH, is a 73 M with a past medical history of essential hypertension, hyperlipidemia, DM-2; of unknown control on Glimepiride, history of X; on Xarelto, history of multiple myeloma; s/p stem-cell transplant and on Revlimid (that is likely causing pancytopenia), history of skin cancer, RLS, history of RBBB, OA and recent influenza A infection about 1 month ago with several family members becoming ill and passing it back and forth to one another who presents to [facility] ER complaining of confusion and low-grade fever. Mr. Joseph is not a fully reliable historian at this time so information was gathered from chart, medical staff and computer plus his and daughter at the bedside. According to the records his symptoms began approximately 2 days prior to admission with the patient notably becoming more confused and a [id number] pattern. He was actually seen in this ER yesterday for confusion and was diagnosed with hypoglycemia that improved after administration of glucose and increased oral intake so he was then discharged home. Unfortunately, his confusion became worse earlier today in spite of a normal glucose so his brought him back in for further evaluation and treatment. They also report increasing hiccups for the past 2 to 3 days that have disrupted his sleep and they also seem to have exacerbated his confusion. In the ER he was noted to have a white blood cell count of 1.3 along with an elevated temperature of 99.3 ?F consistent with suspected neutropenic fever complicated by viral assay returning positive for influenza A compounded by clinical evidence of metabolic encephalopathy with his oncologist recommending empiric IV Zosyn and admission to PCU for stay that is expected to be greater than 48 hours. [facility] Medical History Diabetes mellitus High cholesterol History of echocardiogram History of skin cancer HTN (hypertension) Hypokalemia Multiple myeloma Non-smoker Open wound RBBB Restless legs Wears glasses Home Medications amlodipine 5 mg tablet 5 mg PO DAILY blood pressure 02/09/21 [History Last Taken 01/16/23] atorvastatin 10 mg tablet 10 mg PO DAILY cholesterol 02/09/21 [History Last Taken 01/16/23] losartan 50 mg tablet 50 mg PO DAILY BP 04/19/22 [History Last Taken 01/16/23] clonazepam 0.5 mg tablet 0.5 mg PO QHS anxiety 09/16/22 [History Last Taken 01/15/23] Velade See Rx Instructions .Route .COMPLEX CHEMO 01/16/23 [History Last Taken 01/11/23] acyclovir 400 mg tablet 400 mg PO BID anti viral 01/16/23 [History Last Taken 01/16/23 07:00] glimepiride 4 mg tablet 4 mg PO BID 01/27/24 [History Last Taken Unknown] lenalidomide 10 mg capsule (Revlimid) 10 mg PO DAILY 01/27/24 [History Last Taken Unknown] rivaroxaban 20 mg tablet (Xarelto) 20 mg PO QPM 01/27/24 [History Last Taken Unknown] Allergy/AdvReac Type Severity Reaction Status Date / Time No Known Allergies Allergy Verified 01/31/24 17:28 Family History Other Diabetes Hypertension Surgical History History of wisdom tooth extraction Hx of hernia repair (~1965) Hx of stem cell transplant Social History Smoking Status: Never smoker alcohol intake: current alcohol intake frequency: a few times a week Alcohol type: beer substance use type: does not use ROS ROS Narrative Patient is febrile and confused and therefore cannot complete a full review of systems at this time. Review of Systems ROS Unobtainable: due to encephalopathy Vital Signs Vital Signs Vital Signs: 01/31/24 17:26 01/31/24 17:28 01/31/24 19:00 Temperature 96.9 F L 96.9 F L 99.5 F H Temperature Source Temporal Temporal Oral Pulse Rate 58 L 59 L 62 Respiratory Rate 18 18 14 Blood Pressure 140/77 H 138/66 H 129/58 H Blood Pressure Mean 98 90 81 Pulse Ox 100 100 99 Oxygen Delivery Method Room Air Room Air Room Air 01/31/24 20:00 01/31/24 21:00 01/31/24 22:00 Temperature 97.8 F 97.8 F 99.3 F H Temperature Source Temporal Temporal Oral Pulse Rate 89 78 62 Respiratory Rate 16 16 18 Blood Pressure 150/57 H 147/78 H 141/59 H Blood Pressure Mean 88 101 86 Pulse Ox 99 98 96 Oxygen Delivery Method Room Air Room Air Room Air Weight Weight: 180 lb 8.937 oz Body Mass Index (BMI) 23.8 Physical Exam Const alert, no apparent distress and average body habitus General Appearance: cooperative Orientation / Consciousness: confused HEENT normocephalic, head/scalp atraumatic, hearing grossly normal bilaterally and moist oral mucous membranes Eyes PERRL and EOMs intact bilaterally Neck no lymphadenopathy and supple Resp normal respiratory effort, no retractions, no use of accessory muscles and clear to auscultation bilaterally Cardio regular rate and regular rhythm GI normal to inspection, nondistended, normoactive bowel sounds, soft to palpation, non-tender and non-distended Extremity normal to inspection, full ROM and no clubbing, cyanosis or edema Skin Skin Narrative: Patient has no evidence of abscess, jaundice or rash. Neuro CN's II-XII intact bilaterally and moves all extremities Neuro Narrative: Patient is alert and attempts to answer questions appropriately. Sensorium / Orientation: awake, alert, oriented to person and oriented to place Speech: speech normal Psych affect normal Results Medical Records Data Attestation: I reviewed the patient's medical records Lab / Micro Data Attestation: I reviewed the patient's lab results. 01/31/24 18:30 01/31/24 18:30 Labs: Laboratory Results - last 24 hr 01/31/24 17:45: POC Glucose 78 01/31/24 18:30: WBC 1.3 L*, RBC 4.10 L, Hgb 12.4 L, Hct 36.7 L, MCV 89.5, MCH 30.2, MCHC 33.8, RDW Std Deviation 45.5 H, RDW Coeff of John 14.0, Plt Count 126 L, MPV 11.3, Immature Gran % (Auto) 0.800, Neut % (Auto) 47.3, Lymph % (Auto) 30.7, [place] % (Auto) 15.7 H, Eos % (Auto) 3.9, Baso % (Auto) 1.6 H, Absolute Neuts (auto) 0.6 L, Absolute Lymphs (auto) 0.39 L, Nucleated RBC % 0, Differential Comment SCANNED, Diff Path Review February foll, PT 25.0 H, INR 2.3, APTT 32.8, Sodium 138, Potassium 3.5, Chloride 109 H, Carbon Dioxide 24.0, Anion Gap 5, BUN 17, Creatinine 1.27, Estim Creat Clear Calc 60.29, Est GFR (MDRD) Af Amer 72, Est GFR (MDRD) Non-Af 59 L, BUN/Creatinine Ratio 13.4, Glucose 199 H, Lactic Acid 2.2 H*, Calcium 8.3 L, Total Bilirubin 0.80, AST 17, ALT 25, Alkaline Phosphatase 46, Troponin I High Sens 17, Total Protein 6.7, Albumin 3.0 L, Globulin 3.7, Albumin/Globulin Ratio 0.8 L 01/31/24 19:44: POC Glucose 153 H 01/31/24 21:00: Urine Color Yellow, Urine Clarity Clear, Urine pH 6.0, Ur Specific [place] 1.015, Urine Protein 100 H, Urine Glucose (UA) 250 H, Urine Ketones 5 H, Urine Occult Blood 25 H, Urine Nitrite Negative, Urine Bilirubin Negative, Urine Urobilinogen Normal, Ur Leukocyte Esterase Negative, Urine RBC 0-5 SEEN, Urine WBC 0 SEEN, Ur Squamous Epith Cells 0 SEEN, Urine Bacteria RARE, Urine Mucus 1+ Micro: Microbiology 01/31/24 18:25 Mucosa - Nose SARS-CoV-2, Influenza & RSV (PCR) - Final Influenzae A Imaging Radiology Impression Brain CT 01/31/24 17:57 IMPRESSION: 1. Diffuse involutional change and mild chronic microvascular deep white matter disease. 2. No intracranial mass, hemorrhage or acute territorial infarct. 3. Bilateral maxillary and ethmoid sinus disease. Electronically Signed: Jair Stone MD at 19:30 EDT , Chest X-Ray 01/31/24 21:15 IMPRESSION: 1. No evidence of acute cardiopulmonary process Electronically Signed: Jair Stone MD at 21:36 EDT , Assessment & Plan Assessment/Plan (1) Neutropenic fever: (2) Influenza A: (3) Metabolic encephalopathy: (4) Hypoglycemia: (5) Adverse drug reaction: QUALIFIERS: Encounter type: initial encounter Qualified Code(s): T50.905A - Adverse effect of unspecified drugs, medicaments and biological substances, initial encounter (6) Hx of multiple myeloma: PLAN: Plan 1. Neutropenic fever evidenced by leukopenia of 1.3 present on admission along with low-grade fever - Admit to PCU on reverse isolation. Continue with IV Zosyn recommended by oncology and await culture and sensitivity data. Give Tylenol as needed fever or pain. 2. Influenza A test positive this admission complicating #1 - Give Tamiflu plus vitamin D3, vitamin C and zinc to help boost immunity. Otherwise, continue supportive care and monitor for improvement. 3. 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 Check UDS to evaluate for intentionally reversible causes of confusion may be adding to the complexity of his case and proceed with treatment outlined above and monitor for improvement. 4. DM-2; with recent episode of hypoglycemia compounding #1 - #3 - ADA diet. FSBS q. AC/HS plus SSI. Check HgbA1c to objectively assess quality of diabetic control. Finally, we will hold glimepiride to prevent potential repeat episodes of hypoglycemia. 5. History of multiple myeloma; s/p stem-cell transplant and on Revlimid (known to cause pancytopenia) likely primarily contributing to #1 - Stable with severe leukopenia of 1.3 and moderate thrombocytopenia of 129 present on admission. Check CBC daily to monitor trend. Finally, we will consult oncology to see this patient on rounds in the a.m. with help appreciated in advance. 6. Essential hypertension - Hold scheduled antihypertensives until infections outlined in #1 and #2 have been neutralized. 7. Hyperlipidemia - Resume statin. 8. History of X; on Xarelto - Continue Xarelto as previous. 9. History of of skin cancer - Noted. 10. RLS - Stable. 11. History of RBBB - Noted. 12. OA - Give Tylenol prn. 13. DVT prophylaxis - Patient already on Xarelto for #8 which will be continued. Total time: Approximately 75 minutes. Charges/Coding Visit Charges Inpatient E&M: 29271 Init Hosp L3
[2024-01-31 22:48] LABS: Reflex Lactate? Y
[2024-02-01 00:06] VITALS: BP 145/72; PULSE 65; RESP 18; TEMP 36.8; O2SAT 100; BMI 23.8
[2024-02-01] MEDS: 0.9% Normal Saline (1000mL) 1,000 ML 75 ML IV (00:42)
[2024-02-01] MEDS: ChlorproMAZINE 50 MG/2 ML Ampul 20 MG IM (01:46)
[2024-02-01 04:09] VITALS: BMI 23.8
[2024-02-01] MEDS: Piperacil/Tazobactam 3.375 GM in 0.9% Normal Saline (50mL MB+) 50 ML IV ×3 (05:54→21:53)
[2024-02-01 06:00] VITALS: BP 118/63; PULSE 55; RESP 18; TEMP 36.2; O2SAT 96
[2024-02-01 06:06] VITALS: BP 118/63; PULSE 55; RESP 18; TEMP 36.2; O2SAT 96
[2024-02-01 06:19] LABS: Bedside Glucose 103 mg/dL (74-106)
[2024-02-01 06:21] LABS: Bedside Glucose 104 mg/dL (74-106)
[2024-02-01 08:03] LABS: Absolute Lymphocyte Count 0.47 X10^3/uL (0.83-4.51); Absolute Neutrophil Count 0.7 X10^3/uL (2.0-7.7); Basophil# 0.03 X10^3/uL; Basophil% 1.9 % (0-1); Eosinophil# 0.06 X10^3/uL; Eosinophils% 3.9 % (0-5); Hematocrit 31.8 % (40-54); Hemoglobin 10.8 g/dL (13.0-16.5); Lymphocyte # 0.47 X10^3/ul (0.83-4.51); Lymphocyte % 30.5 % (19-41); Mean Corpuscular Hgb 29.6 pg (27.0-32.0); Mean Corpuscular Volume 87.1 fL (80-94); Mean Platelet Vol. 10.8 fl (6.2-12.0); Monocyte# 0.23 X10^3/uL; Monocyte% 14.9 % (0-10); NRBC Flagged by Analyzer 0 % (0-5); Neutrophil # 0.74 X10^3/uL (2.7-7.7); Neutrophil % 48.2 % (47-70); POSITIVE DIFFERENTIAL YES; POSITIVE MORPHOLOGY YES; Platelet Count 127 K/mm3 (150-450); RBC Distribution Width CV 13.9 % (11.6-14.6); RBC Distribution Width SD 44.6 fl (35.1-43.9); Red Blood Count 3.65 M/mm3 (4.6-6.2)
[2024-02-01 08:12] LABS: Differential Indicated SCAN CRITERIA MET; White Blood Count 1.5 K/mm3 (4.4-11.0)
[2024-02-01 08:35] LABS: Differential Comment SCANNED
[2024-02-01 08:46] LABS: Vitamin B12 337 pg/mL (211-911)
[2024-02-01 09:06] LABS: ALB/GLOB Ratio 0.8 RATIO (0.9-2.4); AST(SGOT) 13 U/L (15-37); Alanine Aminotransfer ALT/SGPT 17 U/L (16-61); Albumin, Serum 2.5 g/dL (3.2-5.0); Alkaline Phosphatase 41 U/L (45-117); Anion Gap 6 (5-15); BUN 13 mg/dL (7-18); BUN/Creat Ratio 12.5 RATIO (10-20); Calcium,Total 7.5 mg/dL (8.5-10.1); Chloride 114 mmol/L (98-107); Creatinine, Serum 1.04 mg/dL (0.70-1.30); EST Glomerular Filtration Rate 75 mL/min (>60); Est Glom Filt Rate - Afr Amer 90 mL/min (>60); Estimated Creatinine Clearance 71.51 ml/min; Globulin 3.3 g/dL (2.2-4.2); Glucose 110 mg/dL (74-106); Phosphorus 2.2 mg/dL (2.5-4.9); Protein, Total 5.8 g/dL (6.4-8.2); Sodium Level 140 mmol/L (136-145)
[2024-02-01 09:26] VITALS: BP 123/52; PULSE 57; RESP 16; TEMP 36.5; O2SAT 97
[2024-02-01] MEDS: Cholecalciferol (Vit D3) 125 MCG CAPSULE (5,000 UNITS) PO (09:30)
[2024-02-01] MEDS: Zinc Sulfate 50 mg zinc (220 mg) ORAL capsule PO (09:30)
[2024-02-01] MEDS: Oseltamivir Phosphate 75 MG Capsule PO ×2 (09:30→21:44)
[2024-02-01] MEDS: Acyclovir 200 MG Capsule 400 MG PO ×2 (09:31→21:44)
[2024-02-01] MEDS: Ascorbic Acid 500 MG Tablet 1000 MG PO ×2 (09:31→16:34)
[2024-02-01] MEDS: Lactobacillis Acidophilus 2 CAP PO ×2 (09:31→21:44)
[2024-02-01] MEDS: Potassium Phosphate 40 MM in 0.9% Normal Saline (500mL Bag) 500 ML 62.5 MM IV (10:44)
--- NOTE | 2024-02-01 11:25 | CASEMGMT ---
RN CM Face to Face with patient for initial transition planning/care coordination assessment. RN CM introduced self and role at [facility]. Patient lying in bed, alert and oriented, at bedside. Patient willing to participate in assessment and is able to answer all questions appropriately. Care providers, pharmacy, and demographics verified. PCP: [facility] Specialists: Rush oncmaria g; Mague, cigar roller; Clemencia De La Torre, marketing account executive; Preferred Pharmacy: [facility] Insurance: [facility] Prescription Benefit: yes Living Will/HPOA: none LNOK: , daughter Living Arrangements: Patient lives with in a 2 story home with bed and bath on first floor, 3 steps and railing to enter the home. Patient is independent at home. Transportation: self, DME/HHC: Patient has raised toilet and grab bars at home. No previous HHC or SNF Patient wishes to discharge home, denies need for home health at this time. Patient states he has no further needs or concerns at this time. CM to follow for discharge planning needs that may arise. Disposition Plan: Patient to discharge home with family support and follow-up plans in place. Therese MATHEWS, RN, CM
--- NOTE | 2024-02-01 14:02 | PCM.PN.HOSP ---
Reason for Visit Reason for Visit: Confusion/fever Subjective Subjective Mr. Abdi is a 73-year-old white male who presented to the emergency department at [facility] on 01/31/2024 with confusion and a low-grade fever. He has a history of multiple myeloma and is status post a stem cell transplant and on Revlimid. He follows with Dr. Beverly as an outpatient for his cancer. Upon presentation his and daughter helped with his history as he was fairly confused. They reported that his symptoms began approximately 2 days prior to admission and he was notably coming more confused with a waxing and waning pattern. He had been seen in the emergency department the day prior for his confusion and had some hypoglycemia that improved with administration of glucose and oral intake and he was sent back home. He is also been having some loose stool and we do have a C. difficile pending at this time. Tmax at home was 99.4. Vital signs on presentation showed a temperature of 96.9, heart rate 58, blood pressure was 140/77, respiratory rate was 18 oxygen saturations are 100% on room air. The patient is chronically pancytopenic due to his Revlimid and his white count on presentation was 1.3, hemoglobin was 10.3, and platelet count was 127,000 all of which appear fairly stable. His absolute neutrophil count was 0.7. Coags were abnormal and elevated however the patient is on rivaroxaban at baseline. His chemistry panel showed normal electrolytes. His serum creatinine was slightly above baseline at 1.27 however not that far off is normal. His serum glucose was 199. His lactic acid was 2.2. Liver functions were normal. The case was discussed with his oncologist and they recommended admission with workup for neutropenic fever and placement on Zosyn. In the meantime we did find that his flu swab was positive and he was started on Tamiflu as well. Today the patient is much better overall. He is currently at alert and oriented x 3. His said yesterday he could not even remember the names of his children. She does not feel that he is quite back to baseline but is much improved. He is having some intermittent loose stool and we will send a C. difficile for this. If it is negative we will go ahead and start some Imodium. We did discuss that if he is feeling better tomorrow we can possibly get him discharged. Objective Data Objective Data Vital Signs: Vital Signs Temp Pulse Resp BP Pulse Ox O2 Del Method 97.7 F L 57 L 16 123/52 H 97 Room Air 02/01/24 09:26 02/01/24 09:26 02/01/24 09:26 02/01/24 09:26 02/01/24 09:26 02/01/24 09:45 Oxygen Delivery Method Room Air Weight: 79.7 kg Body Mass Index (BMI) 23.8 Intake & Output: Intake and Output for Last 24 Hours 01/30/24 01/31/24 02/01/24 23:59 23:59 23:59 Intake Total 600 / 600 1007.5 / 1007.5 Balance 600 / 600 1007.5 / 1007.5 Lab / Micro Data 02/01/24 07:05 02/01/24 07:05 Labs: Laboratory Results - last 24 hr 01/31/24 17:45: POC Glucose 78 01/31/24 18:30: WBC 1.3 L*, RBC 4.10 L, Hgb 12.4 L, Hct 36.7 L, MCV 89.5, MCH 30.2, MCHC 33.8, RDW Std Deviation 45.5 H, RDW Coeff of John 14.0, Plt Count 126 L, MPV 11.3, Immature Gran % (Auto) 0.800, Neut % (Auto) 47.3, Lymph % (Auto) 30.7, [place] % (Auto) 15.7 H, Eos % (Auto) 3.9, Baso % (Auto) 1.6 H, Absolute Neuts (auto) 0.6 L, Absolute Lymphs (auto) 0.39 L, Nucleated RBC % 0, Differential Comment SCANNED, Diff Path Review February, PT 25.0 H, INR 2.3, APTT 32.8, Sodium 138, Potassium 3.5, Chloride 109 H, Carbon Dioxide 24.0, Anion Gap 5, BUN 17, Creatinine 1.27, Estim Creat Clear Calc 60.29, Est GFR (MDRD) Af Amer 72, Est GFR (MDRD) Non-Af 59 L, BUN/Creatinine Ratio 13.4, Glucose 199 H, Lactic Acid 2.2 H*, Calcium 8.3 L, Total Bilirubin 0.80, AST 17, ALT 25, Alkaline Phosphatase 46, Troponin I High Sens 17, Total Protein 6.7, Albumin 3.0 L, Globulin 3.7, Albumin/Globulin Ratio 0.8 L, Folate 19.60 01/31/24 19:44: POC Glucose 153 H 01/31/24 21:00: Urine Color Yellow, Urine Clarity Clear, Urine pH 6.0, Ur Specific [place] 1.015, Urine Protein 100 H, Urine Glucose (UA) 250 H, Urine Ketones 5 H, Urine Occult Blood 25 H, Urine Nitrite Negative, Urine Bilirubin Negative, Urine Urobilinogen Normal, Ur Leukocyte Esterase Negative, Urine RBC 0-5 SEEN, Urine WBC 0 SEEN, Ur Squamous Epith Cells 0 SEEN, Urine Bacteria RARE, Urine Mucus 1+, Urine Opiates Screen Cancelled, Urine Methadone Screen Cancelled, Ur Barbiturates Screen Cancelled, Ur Phencyclidine Scrn Cancelled, Ur Amphetamines Screen Cancelled, MDMA (Ecstasy) Screen Cancelled, U Benzodiazepines Scrn Cancelled, Urine Cocaine Screen Cancelled, U Cannabinoids Screen Cancelled, Ur Drug Screen Comment Cancelled 01/31/24 23:54: Lactic Acid 1.0 02/01/24 00:16: POC Glucose 103 02/01/24 05:56: POC Glucose 104 02/01/24 07:05: WBC 1.5 L*, RBC 3.65 L, Hgb 10.8 L, Hct 31.8 L, MCV 87.1, MCH 29.6, MCHC 34.0, RDW Std Deviation 44.6 H, RDW Coeff of John 13.9, Plt Count 127 L, MPV 10.8, Immature Gran % (Auto) 0.600, Neut % (Auto) 48.2, Lymph % (Auto) 30.5, [place] % (Auto) 14.9 H, Eos % (Auto) 3.9, Baso % (Auto) 1.9 H, Absolute Neuts (auto) 0.7 L, Absolute Lymphs (auto) 0.47 L, Nucleated RBC % 0, Differential Comment SCANNED, Diff Path Review February, Sodium 140, Potassium 3.0 L, Chloride 114 H, Carbon Dioxide 20.0 L, Anion Gap 6, BUN 13, Creatinine 1.04, Estim Creat Clear Calc 71.51, Est GFR (MDRD) Af Amer 90, Est GFR (MDRD) Non-Af 75, BUN/Creatinine Ratio 12.5, Glucose 110 H, Hemoglobin A1c 6.0 H, Calcium 7.5 L, Phosphorus 2.2 L, Magnesium 2.0, Total Bilirubin 0.80, AST 13 L, ALT 17, Alkaline Phosphatase 41 L, Total Protein 5.8 L, Albumin 2.5 L, Globulin 3.3, Albumin/Globulin Ratio 0.8 L, Vitamin B12 337 Micro: Microbiology 01/31/24 18:25 Mucosa - Nose SARS-CoV-2, Influenza & RSV (PCR) - Final Influenzae A Radiography Diagnostic Testing: Radiology Impression Brain CT 01/31/24 17:57 IMPRESSION: 1. Diffuse involutional change and mild chronic microvascular deep white matter disease. 2. No intracranial mass, hemorrhage or acute territorial infarct. 3. Bilateral maxillary and ethmoid sinus disease. Electronically Signed: Jair Stone MD at 19:30 EDT , Chest X-Ray 01/31/24 21:15 IMPRESSION: 1. No evidence of acute cardiopulmonary process Electronically Signed: Jair Stone MD at 21:36 EDT , Physical Exam Const alert, oriented x3, no apparent distress, average body habitus and well nourished Constitutional Narrative: Older, white male, lying in bed, appears fatigued but comfortable, does not appear toxic at this time, at bedside, nursing at bedside HEENT head/scalp atraumatic and moist oral mucous membranes HEENT Narrative: Mallampati 3, no thrush Head and Scalp: normocephalic Resp normal respiratory effort, no retractions, no use of accessory muscles and clear to auscultation bilaterally Auscultation: Negative for rales, rhonchi or wheezes Cardio regular rate, regular rhythm, S1 normal heart sound, S2 normal heart sound, no murmurs, no rub, no gallops and no clicks GI normal to inspection, nondistended, normoactive bowel sounds, soft to palpation and non-tender Extremity no clubbing, cyanosis or edema Extremity Narrative: Pedal pulses are 2+ Neuro oriented x3, moves all extremities and no focal motor deficits Neuro Narrative: Mild generalized weakness noted Speech: speech normal Psych Psych Narrative: Affect is slightly flat but patient appears fatigued and this seems appropriate for his current condition, very pleasant, interacts appropriately and answers questions appropriately Assessment & Plan Assessment/Plan (1) Diarrhea: (2) Metabolic encephalopathy: (3) Neutropenic fever: (4) Pancytopenia: (5) Influenza A: (6) Acidosis, lactic: (7) Hypokalemia: PLAN: Plan Neutropenic fever -Most likely related to influenza A -Continue Tamiflu will need a total of 5 days -Cultures pending -Continue Zosyn for now -Neutrophil count is about the same -Discussed with Dr. Beverly and he agrees if he continues to feel improved by tomorrow he should be able to go home off antibiotics Acute influenza A -See above Toxic/metabolic encephalopathy -Resolving -Patient is now alert and oriented x 3 - states yesterday he could not even remember the name of his children -Continue to monitor next-likely related to the above Chronic pancytopenia secondary to chemotherapy -Counts are stable at this time -Will monitor Hypokalemia/hypophosphatemia -K-Phos bolus given -Will repeat lab in a.m. -Likely related to decreased p.o. intake as of recently due to illness Lactic acidosis -Resolved -Likely related to the above Diarrhea -Check C. difficile -If negative will start Imodium DM-2 -Patient's had some outpatient hypoglycemia -Hold glimepiride -Suspect related to decreased p.o. intake with influenza -Blood sugars are better -Hemoglobin A1c was 6.0 History of multiple myeloma status post stem cell transplant -On Revlimid as an outpatient -Continue outpatient follow-up with Dr. Beverly History of bilateral PE -Continue rivaroxaban HTN/HPL -Continue home statin -Continue home amlodipine -Continue home losartan Chronic right bundle branch block -Stable History of restless leg syndrome -Patient does not take any medication at baseline -Monitor History of skin cancer -Stable Osteoarthritis -As needed Tylenol DVT prophylaxis -Continue home Xarelto CODE STATUS -Full code Charges/Coding Visit Charges Inpatient E&M: 20897 Subs Hosp L2
[2024-02-01 16:30] VITALS: BP 136/75; PULSE 54; RESP 16; TEMP 36.8; O2SAT 98
[2024-02-01] MEDS: Rivaroxaban 20 MG Tablet PO (16:35)
[2024-02-01 16:49] LABS: Bedside Glucose 106 mg/dL (74-106)
[2024-02-01] MEDS: Glucerna Shake 120 ML LIQUID PO (21:43)
[2024-02-01] MEDS: Atorvastatin Calcium 10 MG Tablet PO (21:46)
[2024-02-01] MEDS: 0.9% Saline Lock 10 ML Syringe IV (21:48)
[2024-02-01 21:56] VITALS: BP 145/66; PULSE 58; RESP 16; TEMP 36.4; O2SAT 98
[2024-02-01 22:51] LABS: Bedside Glucose 116 mg/dL (74-106)
[2024-02-02 03:26] VITALS: BP 129/69; PULSE 57; RESP 16; TEMP 36.4; O2SAT 96
[2024-02-02 03:28] VITALS: BP 129/69; PULSE 57; RESP 16; TEMP 36.4; O2SAT 96
[2024-02-02 03:38] VITALS: BMI 24.3
[2024-02-02] MEDS: Piperacil/Tazobactam 3.375 GM in 0.9% Normal Saline (50mL MB+) 50 ML IV (05:48)
[2024-02-02 06:28] LABS: Bedside Glucose 109 mg/dL (74-106)
[2024-02-02 07:57] LABS: Hematocrit 34.1 % (40-54); Hemoglobin 11.5 g/dL (13.0-16.5); Mean Corp Hgb Conc 33.7 g/dL (32-36); Mean Corpuscular Hgb 29.9 pg (27.0-32.0); Mean Corpuscular Volume 88.8 fL (80-94); Mean Platelet Vol. 10.8 fl (6.2-12.0); Platelet Count 147 K/mm3 (150-450); RBC Distribution Width CV 14.3 % (11.6-14.6); RBC Distribution Width SD 46.1 fl (35.1-43.9); Red Blood Count 3.84 M/mm3 (4.6-6.2); White Blood Count 1.9 K/mm3 (4.4-11.0)
[2024-02-02 08:50] LABS: Pathologist Review Reviewed
[2024-02-02 08:50] LABS: Pathologist Review Reviewed
[2024-02-02 09:03] LABS: Anion Gap 6 (5-15); BUN 9 mg/dL (7-18); BUN/Creat Ratio 8.1 RATIO (10-20); Calcium,Total 8.2 mg/dL (8.5-10.1); Chloride 116 mmol/L (98-107); Creatinine, Serum 1.11 mg/dL (0.70-1.30); EST Glomerular Filtration Rate 69 mL/min (>60); Est Glom Filt Rate - Afr Amer 84 mL/min (>60); Glucose 119 mg/dL (74-106); Phosphorus 2.3 mg/dL (2.5-4.9); Potassium 3.1 mmol/L (3.5-5.1); Sodium Level 142 mmol/L (136-145)
[2024-02-02 10:39] VITALS: BP 128/66; PULSE 60; RESP 16; TEMP 36.6; O2SAT 95
[2024-02-02] MEDS: Potassium Chloride Oral Tablet 20 MEQ 60 MEQ PO (10:40)
[2024-02-02] MEDS: Cholecalciferol (Vit D3) 125 MCG CAPSULE (5,000 UNITS) PO (10:41)
[2024-02-02] MEDS: Lactobacillis Acidophilus 2 CAP PO (10:41)
[2024-02-02] MEDS: Sodium Phosphate/Na Biphos 21 MMOL in 0.9% Normal Saline (250mL Bag) 250 ML 84 MMOL IV (10:41)
[2024-02-02] MEDS: Ascorbic Acid 500 MG Tablet 1000 MG PO (10:41)
[2024-02-02] MEDS: Oseltamivir Phosphate 75 MG Capsule PO (10:41)
[2024-02-02] MEDS: Zinc Sulfate 50 mg zinc (220 mg) ORAL capsule PO (10:41)
[2024-02-02] MEDS: Acyclovir 200 MG Capsule 400 MG PO (10:47)
--- NOTE | 2024-02-02 13:02 | DS.PCM_ITS ---
Providers Date of Admission: 01/31/24 Date of Discharge: 02/02/24 Primary Care Physician: Dr. Henrry Lugo MD Consultations 02/01/24 03:09 Consult: Oncology/Hematology Routine Consulting Provider: Henrry Mccain Reason for Consult: Neutropenic fever in the setting of known multiple myeloma on Revlimid EMERGENT Consult: No MD Notified: Yes Date Notified: 02/01/24 Time Notified: 03:09 Method of Notification: ED Physician Initiated Reason For Visit: NEUTROPENIC FEVER, INFLUENZA A AND METABOLIC Diagnosis Discharge Diagnosis (1) Diarrhea: Status: Acute Code(s): R19.7 - Diarrhea, unspecified (2) Metabolic encephalopathy: Status: Acute Code(s): G93.41 - Metabolic encephalopathy (3) Neutropenic fever: Status: Acute Code(s): D70.9 - Neutropenia, unspecified; R50.81 - Fever presenting with conditions classified elsewhere (4) Pancytopenia: Status: Acute Code(s): D61.818 - Other pancytopenia (5) Influenza A: Status: Acute Code(s): J10.1 - Influenza due to other identified influenza virus with other respiratory manifestations (6) Acidosis, lactic: Status: Acute Code(s): E87.20 - Acidosis, unspecified (7) Hypokalemia: Status: Acute Code(s): E87.6 - Hypokalemia Medications at Discharge Home Medications amlodipine 5 mg tablet 5 mg PO DAILY blood pressure 02/09/21 atorvastatin 10 mg tablet 10 mg PO DAILY cholesterol 02/09/21 losartan 50 mg tablet 50 mg PO DAILY BP 04/19/22 clonazepam 0.5 mg tablet 0.5 mg PO QHS anxiety 09/16/22 Velade See Rx Instructions .Route .COMPLEX CHEMO 01/16/23 acyclovir 400 mg tablet 400 mg PO BID anti viral 01/16/23 glimepiride 4 mg tablet 4 mg PO BID diabetes 01/27/24 lenalidomide 10 mg capsule (Revlimid) 10 mg PO DAILY multiple myeloma 01/27/24 rivaroxaban 20 mg tablet (Xarelto) 20 mg PO QPM anticoagulant 01/27/24 azithromycin 500 mg tablet 500 mg PO DAILY 14 days #14 tabs 02/02/24 oseltamivir 75 mg capsule 75 mg PO BID #0 caps 02/02/24 Hospital Course Operations None Procedures - (CT brain/chest x-ray) Summary of Care Provided Minutes Spent on Discharge: 38 Hospital Course: Mr. Joseph is a 73-year-old white male who presented to the emergency department at [facility] on 01/31/2024 with confusion and a low- grade fever. He has a history of multiple myeloma and is status post a stem cell transplant and on Revlimid. He follows with Dr. Mccain as an outpatient for his cancer. Upon presentation his and daughter helped with his history as he was fairly confused. They reported that his symptoms began approximately 2 days prior to admission and he was notably coming more confused with a waxing and waning pattern. He had been seen in the emergency department the day prior for his confusion and had some hypoglycemia that improved with administration of glucose and oral intake and he was sent back home. He is also been having some loose stool and we do have a C. difficile pending at this time. Tmax at home was 99.4. Vital signs on presentation showed a temperature of 96.9, heart rate 58, blood pressure was 140/77, respiratory rate was 18 oxygen saturations are 100% on room air. The patient is chronically pancytopenic due to his Revlimid and his white count on presentation was 1.3, hemoglobin was 10.3, and platelet count was 127,000 all of which appear fairly stable. His absolute neutrophil count was 0.7. Coags were abnormal and elevated however the patient is on ri varoxaban at baseline. His chemistry panel showed normal electrolytes. His serum creatinine was slightly above baseline at 1.27 however not that far off is normal. His serum glucose was 199. His lactic acid was 2.2. Liver functions were normal. The case was discussed with his oncologist and they recommended admission with workup for neutropenic fever and placement on Zosyn. In the meantime we did find that his flu swab was positive and he was started on Tamiflu as well. With regards to influenza he did well throughout his hospitalization. He was afebrile and had no significant respiratory symptoms other than some dry coughing. He did not require any supplemental oxygen and was maintained on Tamiflu during his hospitalization. He did have some electrolyte abnormalities with hypokalemia and hypophosphatemia which were replaced both oral and IV during his hospital course. I have asked that he get a follow-up BMP and Phos level in about 5 to 7 days to reassess. His does indicate that potassium has been a problem for him in the past. He also had several bouts of diarrhea during his hospital course. He does have a history of C. difficile and Campylobacter infection previously. We sent a C. difficile panel as well as an enteric stool panel. His C. difficile was negative however his Campylobacter was positive. He was started on azithromycin 500 mg p.o. daily which was started on the day of discharge. Given the fact that he is immunocompromised at baseline, we will continue on aggressive management course of azithromycin 500 mg daily for another 13 days at the time of discharge for his Campylobacter infection. We did advise that he hold his glimepiride at home if his p.o. intake is some adequate as he did present previously with some hypoglycemia and I suspect it is related to decreased p.o. intake and continued dosing of his glimepiride. I did touch base with his oncologist, Dr. Mccain, who recommended that he hold his Revlimid until he is notified otherwise by their office. He does have an upcoming appointment with Dr. Mccain next week and I have advised that they follow-up with their primary care physician within the next 2 weeks. Discharge diagnoses: Neutropenic fever secondary to influenza A/Campylobacter infection Acute diarrhea secondary to acute Campylobacter infection Acute influenza A infection Toxic/metabolic encephalopathy-resolved Chronic pancytopenia secondary to chemotherapy Hypokalemia-treated Hypophosphatemia-treated Lactic acidosis DM-2 History of multiple myeloma status post stem cell transplant History of bilateral PE HTN HPL Chronic right bundle branch block History of restless leg syndrome History of osteoarthritis History of skin cancer Physical Exam Const alert, oriented x3, no apparent distress, average body habitus, no limitations and well nourished Constitutional Narrative: Older, white male, lying in bed, appears fatigued but comfortable, does not appear toxic at this time, at bedside, nursing at bedside General Appearance: cooperative, comfortable, well kempt and well developed Orientation / Consciousness: awake, oriented to person, oriented to place and oriented to time Exam Limitations: no limitations HEENT normocephalic, head/scalp atraumatic, hearing grossly normal bilaterally and moist oral mucous membranes HEENT Narrative: Mallampati is 2-3, no thrush Eyes PERRL, EOMs intact bilaterally and conjunctivae normal Eyes Narrative: No scleral icterus Neck no lymphadenopathy and supple Neck Narrative: Trachea midline, no thyroid enlargement Resp normal respiratory effort, no retractions, no use of accessory muscles and No clear to auscultation bilaterally Resp Narrative: Few scattered end expiratory wheezes in the bases bilaterally that cleared with cough Auscultation: wheezes; Negative for rales or rhonchi Cardio regular rate, regular rhythm, S1 normal heart sound, S2 normal heart sound, no murmurs, no rub, no gallops and no clicks GI soft to palpation, non-tender and non-distended GI Narrative: Bowel sounds are mildly hyperactive Extremity no clubbing, cyanosis or edema Extremity Narrative: Pedal pulses are 2+ Skin no rashes or lesions noted, no wounds, skin turgor normal and no jaundice Neuro oriented x3, moves all extremities and no focal motor deficits Neuro Narrative: Mild generalized weakness noted Speech: speech normal Psych affect normal Psych Narrative: Interacts appropriately, very pleasant Weight / BMI Weight Weight: 81.4 kg Body Mass Index (BMI) 24.3 ABG / Lab / Microbiology Data 02/02/24 07:10 02/02/24 07:10 Laboratory: Laboratory Results - last 24 hr 01/31/24 18:30: Diff Path Review Reviewed 02/01/24 07:05: Diff Path Review Reviewed 02/01/24 16:28: POC Glucose 106 02/01/24 21:41: POC Glucose 116 H 02/02/24 05:44: POC Glucose 109 H 02/02/24 07:10: WBC 1.9 L, RBC 3.84 L, Hgb 11.5 L, Hct 34.1 L, MCV 88.8, MCH 29.9, MCHC 33.7, RDW Std Deviation 46.1 H, RDW Coeff of John 14.3, Plt Count 147 L, MPV 10.8, Sodium 142, Potassium 3.1 L, Chloride 116 H, Carbon Dioxide 20.0 L, Anion Gap 6, BUN 9, Creatinine 1.11, Estim Creat Clear Calc 67.00, Est GFR (MDRD) Af Amer 84, Est GFR (MDRD) Non-Af 69, BUN/Creatinine Ratio 8.1 L, Glucose 119 H, Calcium 8.2 L, Phosphorus 2.3 L Microbiology: Microbiology 02/02/24 09:20 Stool Enteric Bacteriology - Final Campylobacter species 02/02/24 09:20 Stool Clostridioides difficile (PCR) - Final 01/31/24 21:00 Urine, Catheterized Urine Culture - Final Culture exhibits no growth. 01/31/24 18:25 Mucosa - Nose SARS-CoV-2, Influenza & RSV (PCR) - Final Influenzae A D/C Instructions Discharge Diet: 2000 Calorie Control Diet Discharge Activity: Return to Normal Activity Meaningful Use Info Meaningful Use Diagnoses (Choose all that apply): None applicable Discharge Plan Admission Admit Date/Time: 01/31/24 22:50 Primary Reason for Your Visit: Confusion/fever Attending Provider: Estrella Ramos Primary Care Provider: Henrry Lugo Consulting Providers: Henrry Mccain; Efren Corbett Instructions Additional Instructions / Restrictions: 1. You were diagnosed with influenza A and should continue the Tamiflu that you have at home for 7 more doses with the first dose to take at home tonight. 2. You are also diagnosed with Campylobacter which is causing your diarrhea. You will continue antibiotics with azithromycin 500 mg twice daily for total of 14 days. You will have 13 more doses at the time of discharge as you received your first dose in the hospital. 3. Hold glimepiride if your are not able to eat well 4. Please call either your oncologist or primary care physician to have a basic metabolic profile and a phosphorus level checked within the next 5 to 7 days Discharge Orders/Prescriptions Prescriptions: New oseltamivir 75 mg Capsule 75 mg PO BID Qty: 0 0RF Rx Instructions: take 7 more doses azithromycin 500 mg tablet 500 mg PO DAILY 14 Days Qty: 14 0RF Continued atorvastatin 10 mg tablet 10 mg PO DAILY amlodipine 5 mg tablet 5 mg PO DAILY losartan 50 mg tablet 50 mg PO DAILY clonazepam 0.5 mg tablet 0.5 mg PO QHS acyclovir 400 mg tablet 400 mg PO BID Velade See Rx Instructions .ROUTE .COMPLEX Rx Instructions: GETS IV WEEKLY AT DR MCCAIN'S OFFICE glimepiride 4 mg tablet 4 mg PO BID Xarelto 20 mg tablet 20 mg PO QPM Held lenalidomide [Revlimid] 10 mg capsule 10 mg PO DAILY Hold Instructions: Until instructed otherwise by Dr. Mccain office Referrals / Follow Up: Henrry Mccain DO [Med Staff - Active Staff] - See Referral Note (as scheduled) Henrry Lugo MD [Primary Care Provider] - Within 2 Weeks (Please call the office to schedule an appt within the next 2 weeks. ) Disposition Disposition (needs filled in before D/C Order can be placed): Home, Self Care Charges/Coding Visit Charges Inpatient E&M: 53785 Disch Hosp >30min
--- NOTE | 2024-02-02 13:22 | CASEMGMT ---
Patient has order for discharge. RN CM in to discuss needs at discharge. Patient and deny needs at discharge. Patient and had no further questions or concerns.
[2024-02-02] MEDS: Azithromycin 250 MG Tablet 500 MG PO (13:44)
[2024-02-02 15:41] VITALS: BP 151/76; PULSE 64; RESP 16; TEMP 36.9; O2SAT 97
== END 2024-02-02 15:56 | disposition home or self-care (01) | DRG 808 ==
LOC: ED 22:30 → PCU 02-01 00:50
PROVIDERS: Admitting Provider Internal Medicine; Emergency Provider Emergency Medicine; PCP Family Medicine; Visit Provider Internal Medicine
DX: D70.3 Neutropenia due to infection (principal); G93.41 Metabolic encephalopathy; G92.8 Other toxic encephalopathy; Z94.84 Stem cells transplant status; A04.5 Campylobacter enteritis; C90.01 Multiple myeloma in remission; E87.20 Acidosis, unspecified; E11.649 Type 2 diabetes mellitus with hypoglycemia without coma; I10 Essential (primary) hypertension; G25.81 Restless legs syndrome; M19.90 Unspecified osteoarthritis, unspecified site; E78.5 Hyperlipidemia, unspecified; E87.6 Hypokalemia; I45.10 Unspecified right bundle-branch block; J10.1 Influenza due to other identified influenza virus with other respiratory manifestations; D61.810 Antineoplastic chemotherapy induced pancytopenia; R50.81 Fever presenting with conditions classified elsewhere; Z79.84 Long term (current) use of oral hypoglycemic drugs; T50.905A Adverse effect of unspecified drugs, medicaments and biological substances, initial encounter; Z79.01 Long term (current) use of anticoagulants; T45.1X5A Adverse effect of antineoplastic and immunosuppressive drugs, initial encounter; Z86.711 Personal history of pulmonary embolism
CPT/HCPCS: 36415; 70450; 71045; 80048; 80053; 81001; 82607; 82746; 82962; 83036; 83605; 83735; 84100; 84484; 85025; 85027; 85610; 85730; 87040; 87086; 87493; 87506; 87631; 93005; 94668; 97162; 99285; J7030; J7040; J7050; A4216

== ENCOUNTER → 2024-09-12 | Outpatient (CLI) | payer MEDICARE, OTHER, SELFPAY ==
--- NOTE | 2024-09-12 11:37 | RAD_ITS ---
STUDY: X-RAY - ABDOMEN/PELVIS REASON FOR EXAM: Male, 74 years old. RIGHT FLANK PAIN TECHNIQUE: Single AP view of the abdomen / pelvis. COMPARISON: None. FINDINGS: Normal visualized lung bases. There is an unremarkable bowel gas pattern. The visualized liver, spleen and kidneys are grossly normal in size and morphology. Normal soft tissue structures. Normal visualized osseous structures. RAD/Abdomen Single View IMPRESSION: Normal x-ray examination of the abdomen and pelvis. Electronically Signed: Jair Noble MD at 13:23 EST ,
[2024-09-12 15:09] LABS: Absolute Lymphocyte Count 0.85 X10^3/uL (0.83-4.51); Absolute Neutrophil Count 2.7 X10^3/uL (2.0-7.7); Basophil# 0.04 X10^3/uL; Basophil% 0.9 % (0-1); Eosinophil# 0.25 X10^3/uL; Eosinophils% 5.7 % (0-5); Hemoglobin 12.7 g/dL (13.0-16.5); Lymphocyte # 0.85 X10^3/ul (0.83-4.51); Lymphocyte % 19.5 % (19-41); Mean Corp Hgb Conc 32.6 g/dL (32-36); Mean Corpuscular Hgb 31.5 pg (27.0-32.0); Mean Corpuscular Volume 96.8 fL (80-94); Mean Platelet Vol. 10.7 fl (6.2-12.0); Monocyte# 0.48 X10^3/uL; NRBC Flagged by Analyzer 0 % (0-5); Neutrophil # 2.72 X10^3/uL (2.7-7.7); Neutrophil % 62.7 % (47-70); Platelet Count 158 K/mm3 (150-450); RBC Distribution Width CV 14.5 % (11.6-14.6); RBC Distribution Width SD 51.6 fl (35.1-43.9); Red Blood Count 4.03 M/mm3 (4.6-6.2); White Blood Count 4.4 K/mm3 (4.4-11.0)
[2024-09-12 15:17] LABS: Anion Gap 6 (5-15); BUN 19 mg/dL (7-18); BUN/Creat Ratio 13.7 RATIO (10-20); Calcium,Total 8.7 mg/dL (8.5-10.1); Chloride 108 mmol/L (98-107); Creatinine, Serum 1.39 mg/dL (0.70-1.30); EST Glomerular Filtration Rate 53 mL/min (>60); Est Glom Filt Rate - Afr Amer 65 mL/min (>60); Glucose 138 mg/dL (74-106); Potassium 4.1 mmol/L (3.5-5.1); Sodium Level 137 mmol/L (136-145)
== END | disposition home or self-care (01) ==
PROVIDERS: PCP Family Medicine; Referring Provider Family Medicine; Visit Provider Family Medicine
DX: R10.9 Unspecified abdominal pain (principal)
CPT/HCPCS: 36415; 74018; 80048; 85025

== ENCOUNTER 2025-05-31 13:26 | Emergency (ER) | payer MEDICARE, OTHER, SELFPAY ==
[2025-05-31 13:27] VITALS: BP 151/85; PULSE 63; RESP 18; TEMP 36.6; O2SAT 98; BMI 24.7
--- NOTE | 2025-05-31 14:09 | EX.ED.DYSGE1 ---
HPI History of Present Illness Chief Complaint: Confusion Informant: patient, spouse/S.O. and family Onset/Context/Timing Onset: Days Context: Gradual Onset Timing: Intermittent Current Severity: Mild Maximum Severity: Severe Narrative Narrative: 75-year-old male history of Lewy body and Alzheimer's dementia, diabetes and multiple myeloma. Recently had hip surgery at at [facility]. He was then discharged to a extended care rehab facility and [place] called yobany Jackman. They were unable to handle home at their facility. He was discharged home the family can take care of him. Now he is getting aggressive at times with his they are requesting to a geropsych or long-term facility. Prior similar symptoms: Yes Recent Illness/Hospitalization: Yes [facility] Medical History Dementia Multiple myeloma Wears glasses Open wound History of echocardiogram Restless legs Non-smoker History of skin cancer Hypokalemia RBBB HTN (hypertension) High cholesterol Diabetes mellitus Home Medications ?Medication ?Instructions ?Recorded ?Last Taken ?Type amlodipine 5 mg tablet 5 mg PO DAILY blood pressure 02/09/21 01/16/23 History atorvastatin 10 mg tablet 10 mg PO DAILY cholesterol 02/09/21 01/16/23 History losartan 50 mg tablet 50 mg PO DAILY BP 04/19/22 01/16/23 History clonazepam 0.5 mg tablet 0.5 mg PO QHS anxiety 09/16/22 01/15/23 History Velade See Rx Instructions .Route 01/16/23 01/11/23 History .COMPLEX CHEMO acyclovir 400 mg tablet 400 mg PO BID anti viral 01/16/23 01/16/23 07:00 History glimepiride 4 mg tablet 4 mg PO BID diabetes 01/27/24 Unknown History lenalidomide 10 mg capsule 10 mg PO DAILY multiple myeloma 01/27/24 Unknown History (Revlimid) Held on 02/02/24. Instructions: Until instructed otherwise by Dr. Mccain office rivaroxaban 20 mg tablet (Xarelto) 20 mg PO QPM anticoagulant 01/27/24 Unknown History azithromycin 500 mg tablet 500 mg PO DAILY 14 days #14 tabs 02/02/24 Unknown Rx oseltamivir 75 mg capsule 75 mg PO BID #0 caps 02/02/24 Unknown Rx Allergy/AdvReac Type Severity Reaction Status Date / Time No Known Allergies Allergy Verified 01/31/24 17:28 Family History Other Diabetes Hypertension Surgical History Hx of stem cell transplant History of wisdom tooth extraction Hx of hernia repair (~1965) Social History Smoking Status: Never smoker alcohol intake: current alcohol intake frequency: a few times a week Alcohol type: beer substance use type: does not use ROS ROS ED ROS Narrative Patient denies recent illness. Constitutional Constitutional ED: Denies chills or fever(s) Eyes Eyes: Denies blurry vision ENT ENT ED: Denies ear pain Cardiovascular Cardiovascular: Denies chest pain Respiratory/Chest Respiratory/Chest: Denies cough Gastrointestinal Gastrointestinal: Denies abdominal pain, diarrhea, nausea or vomiting Genitourinary Genitourinary ED: Denies dysuria or hematuria Musculoskeletal Musculoskeletal: Denies arthralgias Integumentary Denies abscess Neurologic Neurologic: Denies headache(s) Psychiatric Psychiatric: Denies anxiety Endocrine Endocrinology: Denies cold intolerance Hematologic/Lymphatic Hematologic/Lymphatic: Reports none Allergic/Immunologic Allergic/Immunologic ED: Denies mouth swelling, tongue swelling or urticaria EXAM Physical Exam Narrative Exam Narrative: Well-appearing 75-year-old male lying in bed. Vital signs stable afebrile. Currently no acute distress. H EENT exam pupils round react to light. Extra motions are intact. Neck nontender no lymphadenopathy. Back nontender. Lungs clear to auscultation bilaterally. Heart regular rhythm no murmur. Abdomen soft nontender. Moving all 4 extremities. Normal product development assistant strength. Normal dorsi plantarflexion. Neurologically the patient is awake and alert. Answering questions and following commands. He does know the president when given multiple choice answers. He does know the month Const Vital Signs: 05/31/25 13:27 Temperature 98 F Temperature Source Oral Pulse Rate 63 Respiratory Rate 18 Blood Pressure 151/85 H Blood Pressure Mean 107 Pulse Ox 98 Oxygen Delivery Method Room Air Positive well nourished and well developed; Negative for obese, cachectic, contractures or unkempt General Appearance ED: well developed; Negative for unkempt, cachectic or contractures Nutritional Appearance: Negative for cachectic or obese HEENT Reports moist mucous membranes Eyes PERRL and EOMs intact bilaterally Neck no lymphadenopathy, supple and no JVD Chest Wall inspection of chest normal and palpation of chest normal Resp normal respiratory effort and clear to auscultation bilaterally Cardio regular rate, regular rhythm, S1 normal heart sound, S2 normal heart sound and no murmurs GI normal to inspection, nondistended, normoactive bowel sounds, non-tender, non-distended and no masses Palpation: soft; Negative for tender or guarding Back/Spine no CVA tenderness General Back: Negative for CVA tenderness Cervical Spine: Negative for cervical spine tenderness Thoracic Spine / Upper Back: Negative for thoracic spinal tenderness or paraspinal muscle tenderness Lumbar Spine / Lower Back: Negative for lumbar spinal tenderness Extremity normal to inspection General Extremety ED: Negative for edema or tenderness General Extremity: Negative for edema Neuro oriented x3 and CN's II-XII intact bilaterally Sensorium / Orientation: alert Motor Exam: strength 5/5 throughout Psych mental status grossly normal Appearance: Negative for unkempt Skin no rashes or lesions noted, no wounds and skin turgor normal MDM MDM MDM Narrative Medical decision making narrative: 75-year-old male history of dementia recent extended-care facility admission they were unable to handle him he is now at home with his and son. They are now concerned they cannot take care of him at home and is getting aggressive at times and other times he is tried to leave the house. They are looking for either custodial or geropsychiatric placement. tangled yarn worker evaluated the patient and spoke to the family at length. The plan is to try to get him admitted to a [facility] psychiatric unit which she is currently working on. History & Record Review Discussion w/independent historian: Patient and Family Additional record(s) reviewed:: Prior inpatient record, Prior outpatient record, Prior ED visit and Prior labs Lab Data Attestation: I reviewed the patient's lab results. Lab results narrative: CBC shows a white count of 4. H&H 10.3 and 31. Platelets 304. Electrolytes show sodium 138 gap 12. Normal BUN and creatinine. Glucose 113. Labs: Laboratory Results - last 24 hr 05/31/25 14:15 WBC 4.1 L RBC 3.25 L Hgb 10.3 L Hct 31.3 L MCV 96.3 H MCH 31.7 MCHC 32.9 RDW Std Deviation 55.8 H RDW Coeff of John 15.9 H Plt Count 304 MPV 10.2 Immature Gran % (Auto) 1.200 H Neut % (Auto) 61.8 Lymph % (Auto) 23.2 [place] % (Auto) 10.9 H Eos % (Auto) 2.2 Baso % (Auto) 0.7 Absolute Neuts (auto) 2.5 Absolute Lymphs (auto) 0.94 Nucleated RBC % 0 Sodium 138 Potassium 4.2 Chloride 104 Carbon Dioxide 22.2 Anion Gap 12 BUN 14 Creatinine 1.05 Estim Creat Clear Calc 68.77 Est GFR (MDRD) Non-Af 75 BUN/Creatinine Ratio 13.5 Glucose 113 H Calcium 8.8 Discharge Plan Triage Chief Complaint: Confusion ED Provider: Nico Kerr Dx/Rx/DC Orders Clinical Impression: Dementia, History of diabetes mellitus, Hx of multiple myeloma Prescriptions: No Action atorvastatin 10 mg tablet 10 mg PO DAILY amlodipine 5 mg tablet 5 mg PO DAILY losartan 50 mg tablet 50 mg PO DAILY clonazepam 0.5 mg tablet 0.5 mg PO QHS acyclovir 400 mg tablet 400 mg PO BID Velade See Rx Instructions .ROUTE .COMPLEX Rx Instructions: GETS IV WEEKLY AT DR MCCAIN'S OFFICE glimepiride 4 mg tablet 4 mg PO BID lenalidomide [Revlimid] 10 mg capsule 10 mg PO DAILY Xarelto 20 mg tablet 20 mg PO QPM oseltamivir 75 mg Capsule 75 mg PO BID Qty: 0 0RF Rx Instructions: take 7 more doses azithromycin 500 mg tablet 500 mg PO DAILY 14 Days Qty: 14 0RF Primary Care Provider: Henrry Lugo Referrals: Henrry Lugo MD [Primary Care Provider] - Print Language: Ghanaian Disposition Disposition: Psychiatric Hospital or Unit
--- OUTSIDE RECORDS SUMMARY | 2025-05-31 14:16 | XMS RPT_ITS | CCD ---
Author Organization [facility] Care Team Providers Care [place] Operator Name Role Phone Jair Parikh Unavailable [phone] [place] [employer], [employer]IC[employer]-C Jair Primary Care Provider Dr. Hair Cruz Emergency Provider [phone] Real Shepard Admit Provider [phone] Real Shepard Attending Provider Dr. Real Shepard Other Provider [phone] Connie Saenz Attending Provider Maluer [employer], [employer]ACTICAL HELICOPTER-C Jair Primary Care Provider Dr. Connie Saenz Attending Provider Hellinger [employer] HELIC[employer], [employer] HELICOPTER-C Jair Referring Provider Dr. Leno Quigley Attending Provider Unavailable Primary Care Provider Connie Fernando MD Primary Care Provider Connie Lugo MD Primary Care Provider Hellinger [employer] HELIC[employer], [employer]ACTICAL HELICOPTER-C Jair Primary Care Provider Hellinger [employer] HELIC[employer], [employer] HELICOPTER-C Jair Referring Provider Dr. Leno Quigley Attending Provider Dr. Connie Lugo Primary Care Provider Dr. Connie Lugo Referring Provider Dr. Leno Quigley Other Provider Connie Lugo MD Primary Care Provider [phone] Merrill RN, Florence Unavailable Unavailable Friend, Dr. Burr Attending Provider Friend Leno WITT Unavailable Dixie Ivet WITT Unavailable Maribeth, Dr. Sales Primary Care Provider Maribeth, Dr. Sales Referring Provider Friend, Dr. Burr Attending Provider Friend, Dr. Burr Other Provider Lugo, Dr. Sales Primary Care Provider Maribeth, Dr. Sales Referring Provider Friend, Dr. Burr Attending Provider Luana, Dr. Goodwin Attending Provider Dixie , Ivet Healy Unavailable Maribeth, Dr. Sales Primary Care Provider Maribeth, Dr. Sales Referring Provider Friend, Dr. Burr Attending Provider Dr. Nico Kerr Emergency Provider Dr. Kezia Ko Admit Provider Dr. Kezia Ko Attending Provider Dr. Kezia Ko Other Provider Nidhi Ayers Unavailable Maira Chandra Unavailable Connie Lugo MD Primary Care Provider Raheem NARANJO, Ayan Unavailable CONNIE LUGO Primary Care Unavailable HUANG MOSER Attending Unavailable HUANG MOSER Admitting Unavailable Merrill RN, Florence Unavailable Unavailable Raheem NARANJO, Ayan Unavailable Earl Simpson MD Unavailable Unavailable Primary Care Provider Unavailmango e Dr. Connie Lugo Primary Care Provider Maribeth, Dr. Sales Referring Provider Maribeth, Dr. Sales Other Provider Dr. Buddy Craft Attending Provider Dr. Gabriel Howard Emergency Provider Corbett, Dr. Schwartz Admit Provider Unavailabl e Corbett, Dr. Schwartz Other Provider Unavailabl e Rush, Dr. Sales Other Provider Dr. Estrella Ramos Attending Provider Dr. Estrella Ramos Other Provider Maribeth GREENBERG, Connie Pereyra Primary Care Provider [phone] Clary GREENBERG, Gilbert Dumont Unavailable [phone] Rocio JEFFERY, Temo Unavailable Unavailable Raheem RD, Ayan Unavailable Connie Lugo Consulting Unavailable Lugo, Connie Referring Unavailable Lugo, Connie Primary Care Unavailable Buddy Craft Attending Unavailable Rush, Connie Consulting Unavailable Maribeth, Connie Primary Care Unavailable Eunice Corbett Admitting Unavailable Eunice Corbett Attending Unavailable Eunice Corbett Consulting Unavailable Estrella Ramos Attending Unavailable Estrella Ramos Consulting Unavailable Lugo, Connie Primary Care Unavailable Gabriel Howard Attending Unavailable Lugo, Connie Primary Care Unavailable SchwGabriel england Attending Unavailable Lugo, Connie Attending Unavailable Lugo, Connie Referring Unavailable Lugo, Connie Primary Care Unavailable Lugo, Connie Attending Unavailable Lugo, Connie Referring Unavailable Lugo, Connie Primary Care Unavailable Estrella Ramos Attending Unavailable Lugo, Connie Primary Care Unavailable Eunice Corbett Admitting Unavailable Corbett, Eunice Consulting Unavailable Raheem NARANJO, Ayan Unavailable Maribeth GREENBERG, Connie Pereyra Primary Care Provider CONNIE LUGO Primary Care Unavailable GEOFF YOUNG Attending Unavailable LUGO, CONNIE R Primary Care Unavailable GEOFF YOUNG Attending Unavailable Sissen YUMIKO Too Unavailable Unavailable LUGO, CONNIE R Primary Care Unavailable PROVIDER, UNKNOWN Referring Unavailable LUGO, CONNIE R Primary Care Unavailable PROVIDER, UNKNOWN Referring Unavailable LUGO, CONNIE R Primary Care Unavailable IVET COLIN Referring Unavailab le LUGO, CONNIE R Primary Care Unavailable ISABEL BEARD Referring Unavailable ALEXANDER, GAIL Kate Attending Unavailable ALEXANDER, GAIL Kate Admitting Unavailable LUGO, CONNIE R Primary Care Unavailable TERRIE, LONDON Saul Unavailable NIDHI PAT Referring Unavailable LUGO, CONNIE R Primary Care Unavailable SZIRAKY, GAIL Kate Referring Unavailable LUGO, CONNIE R Primary Care Unavailable MASCI, CONNIE A Referring Unavailable LUGO, CONNIE R Primary Care Unavailable MASCI, CONNIE Chavarria Referring Unavailable MASCI, CONNIE Chavarria Attending Unavailable LUGO, CONNIE R Primary Care Unavailable LUGO, CONNIE R Primary Care Unavailable LUGO, CONNIE R Primary Care Unavailable MASCI, CONNIE Chavarria Referring Unavailable ZGOMARIA GSKI, GILBERT Attending Unavailable SELF Referring Unavailable LUGO, CONNIE R Primary Care Unavailable MASCI, CONNIE Chavarria Referring Unavailable BRIGHT THAO Attending Unavailable LUGO, CONNIE R Primary Care Unavailable LUGO, CONNIE R Primary Care Unavailable LUGO, CONNIE R Primary Care Unavailable KEMI KENNEDY Attending Unavailable MASCI, CONNIE Chavarria Referring Unavailable LUGO, CONNIE R Primary Care Unavailable BRIGHT THAO Attending Unavailable MASCI, CONNIE Chavarria Referring Unavailable LUGO, CONNIE R Primary Care Unavailable MASCI, CONNIE Chavarria Attending Unavailable LUGO, CONNIE R Primary Care Unavailable MASCI, CONNIE Chavarria Referring Unavailable LUGO, CONNIE R Primary Care Unavailable ZGOLEEI, GILBERT Attending Unavailable ZGOMARIA GSKI, GILBERT Referring Unavailable LUGO, CONNIE R Primary Care Unavailable ZGODINSKI, GILBERT Referring Unavailable LUGO, CONNIE R Primary Care Unavailable ZGODINSKI, GILBERT Referring Unavailable ZGODINSKI, GILBERT Attending Unavailable BRIGHT THAO Attending Unavailable LUGO, CONNIE R Primary Care Unavailable MASCI, CONNIE Chavarria Referring Unavailable LUGO, CONNIE R Primary Care Unavailable LUGO, CONNIE R Primary Care Unavailable ZGODINSKI, GILBERT Attending Unavailable LUGO, CONNIE R Primary Care Unavailable TERRI QUINTANA Attending Unavailable BETSY KEMP Referring Unavailable LUGO, CONNIE R Primary Care Unavailable LUGO, CONNIE R Primary Care Unavailable FARHAN EAST Attending Unavailable MASCI, CONNIE Chavarria Referring Unavailable MASCI, CONNIE Chavarria Attending Unavailable MASCI, CONNIE Chavarria Referring Unavailable LUGO, CONNIE R Primary Care Unavailable LUGO, CONNIE R Primary Care Unavailable IVET COLIN Attending Unavailab le LUGO, CONNIE R Primary Care Unavailable BRIGHT THAO Attending Unavailable LUGO, CONNIE R Primary Care Unavailable MASCI, CONNIE Chavarria Attending Unavailable MASCI, CONNIE Chavarria Referring Unavailable LUGO, CONNIE R Primary Care Unavailable LUGO, CONNIE R Primary Care Unavailable LUGO, CONNIE R Primary Care Unavailable KEMI KENNEDY Attending Unavailable LUGO, CONNIE R Primary Care Unavailable GAIL ROCK Referring Unavailable LUGO, CONNIE R Primary Care Unavailable LUGO, CONNIE R Primary Care Unavailable CHICORELLI, IVET HEALY Referring Unavailab le LUGO, CONNIE R Primary Care Unavailable CHICORELLI, IVET HEALY Referring Unavailab le LUGO, CONNIE R Primary Care Unavailable NIDHI PAT Attending Unavailable LUGO, CONNIE R Primary Care Unavailable ZGOMARIA GSKI, GILBERT Attending Unavailable LUGO, CONNIE R Primary Care Unavailable LUGO, CONNIE R Primary Care Unavailable GEOFF YOUNG Referring Unavailable CHICORELLI, IVET HEALY Attending Unavailab le LUGO, CONNIE R Primary Care Unavailable LUGO, CONNIE R Primary Care Unavailable MASCI, CONNIE Chavarria Referring Unavailable MASCI, CONNIE Chavarria Attending Unavailable LUGO, CONNIE R Primary Care Unavailable MASCI, CONNIE Chavarria Referring Unavailable LUGO, CONNIE R Primary Care Unavailable LUGO, CONNIE R Primary Care Unavailable LUGO, CONNIE R Primary Care Unavailable BETSY KEMP Referring Unavailable ZGODINSKI, GILBERT Attending Unavailable LUGO, CONNIE R Primary Care Unavailable CHICORELLI, IVET HEALY Attending Unavailab le CHICORELLI, IVET HEALY Referring Unavailab le LUGO, CONNIE R Primary Care Unavailable BETSY KEMP Attending Unavailable LUGO, CONNIE R Primary Care Unavailable MASCI, CONNIE Chavarria Referring Unavailable MASCI, CONNIE Chavarria Referring Unavailable LUGO, CONNIE R Primary Care Unavailable LUGO, CONNIE R Primary Care Unavailable EUNICE MORALES Attending Unavailable LUGO, CONNIE R Primary Care Unavailable CHICORELLI, IVET HEALY Referring Unavailab le LUGO, CONNIE R Primary Care Unavailable CHICORELLI, IVET HEALY Attending Unavailab le MASCI, CONNIE Chavarria Referring Unavailable LUGO, CONNIE R Primary Care Unavailable LUGO, CONNIE R Primary Care Unavailable ZGODINSKI, GILBERT Attending Unavailable ZGODINSKI, GILBERT Referring Unavailable LUGO, CONNIE R Primary Care Unavailable MASCI, CONNIE Chavarria Referring Unavailable MASCI, CONNIE Chavarria Attending Unavailable LUGO, CONNIE R Primary Care Unavailable LUGO, CONNIE R Primary Care Unavailable LUGO, CONNIE R Primary Care Unavailable MASCI, CONNIE Chavarria Attending Unavailable MASCI, CONNIE Chavarria Referring Unavailable LUGO, CONNIE R Primary Care Unavailable GEOFF YOUNG Referring Unavailable CONNIE LUGO Primary Care Unavailable CONNIE MCCAIN Referring Unavailable CONNIE MCCAIN Attending Unavailable CONNIE LUGO Primary Care Unavailable Medications Current Medications Medication Drug Class(es) Dates Sig (Normalized) Sig (Original) acyclovir 400 mg oral tablet (20 sources) Herpesvirus Nucleoside Analog DNA Polymerase Inhibitor, Herpes Simplex Virus Nucleoside Analog DNA Polymerase Inhibitor, Herpes Zoster Virus Nucleoside Analog DNA Polymerase Inhibitor Start: 11-16-2023 End: 11-29-2024 take 1 tablet by mouth twice daily acyclovir (ZOVIRAX) 400 mg tablet Take 1 tablet by mouth two times a day. 180 tablet 3 11/29/2024 Active Start: 10-26-2022 End: 05-01-2023 take 1 tablet by mouth twice daily acyclovir (ZOVIRAX) 400 mg tablet Take 1 tablet by mouth two times a day. 180 tablet 3 11/16/2023 Active Comment on above: Take 1 tablet by becca th twice daily. Take 1 tablet by becca th two times a day. amoxicillin 875 mg / clavulanate 125 mg oral tablet (3 sources) Penicillin-class Antibacterial Start: 02-01-20 End: 02-08-20 take 1 tablet by mouth twice daily amoxicillin-clavulan ic acid (AUGMENTIN) 875-125 mg per tablet Take 1 tablet by mouth twice daily for 7 days. 14 tablet 0 01/31/2023 02/07/2023 Active Comment on above: Take 1 tablet by becca th twice daily for 7 days. atorvastatin 10 mg oral tablet (20 sources) HMG-CoA Reductase Inhibitor Start: 02-10-20 take 1 tablet by mouth once daily atorvastatin (LIPITOR) 10 mg tablet Take 10 mg by mouth once daily. 02/10/2021 Active Comment on above: 10 mg once daily. Take 10 mg by mouth once daily. clonazePAM 0.5 mg oral tablet (20 sources) Benzodiazepine Start: 07-29-20 22 take 1 tablet by mouth once daily clonazePAM (KLONOPIN) 0.5 mg tablet Take 0.5 mg by mouth once daily. 07/29/2022 Active Comment on above: 0.5 mg once daily. Take 0.5 mg by mouth once daily. dexamethasone 4 mg oral tablet (20 sources) Corticosteroid Start: 06-15-20 End: 06-18-20 take 1 tablet by mouth once daily dexAMETHasone (DECADRON) 4 mg tablet Take 1 tablet by mouth once daily for 3 doses. 3 tablet 0 06/15/2023 06/18/2023 Active Start: 01-16-2023 End: 01-31-2024 Dexamethasone Discontinued 4 0 MG PO WE January 16, 2023 12:00am January 31, 2024 5:56pm Start: 10-26-2022 End: 02-28-2023 dexAMETHasone (DECADRON) 4 m g tablet Take 5 tablets by mouth one time a week. on days 2, 9, 16 of the first cycle of daratumumab. 40 tablet 5 01/31/2023 02/28/2023 Discontinued Comment on above: Take 10 tablets by m outh one time a week. on days 1, 8, 15 and 22 of each cycle. Take 5 tablets by mo [facility] one time a week. on days 2, 9, 16 of the first cycle of daratumumab. Take 1 tablet by becca once daily for 3 doses. 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 30 tablet 2 01/21/2025 02/24/2025 Discontinued (Course of therapy completed) escitalopram 5 mg oral tablet (17 sources) Serotonin Reuptake Inhibitor Start: 04-14-2025 take 1 tablet by mouth once daily escitalopram oxalate (LEXAPRO) 5 mg tablet Indications: Irritability Take 1 tablet by mouth once daily. 30 tablet 3 04/14/2025 Active folic acid 0.8 mg oral tablet (20 sources) folic acid 800 m cg tablet Take 400 mcg by mouth once daily. Active gabapentin 300 mg oral capsule (20 sources) Anti-epileptic Agent Start: 04-14-2025 End: 07-13-2025 take 1 capsule by mouth once daily at bedtime gabapentin (NEURONTIN) 300 mg capsule Indications: neuropathic pain Take 1 capsule by mouth daily at bedtime for 90 days. 04/14/2025 07/13/2025 Active Start: 03-21-2025 End: 06-19-2025 take 1 capsule by mouth twice daily gabapentin (NEURONTIN) 300 mg capsule Indications: neuropathic pain Take 1 capsule by mouth two times a day for 90 days. 60 capsule 2 03/21/2025 04/14/2025 Discontinued (Adjust Sig - Block E-Cancel) glimepiride 4 mg oral tablet (20 sources) Sulfonylurea Start: 01-27-2024 take 4 mg by mouth twice daily Glimepiride Active 4 MG PO TWICE A DAY January 27, 2024 12:00am Start: 07-15-2022 End: 01-27-2024 take 1 tablet by mouth once daily at breakfast glimepiride (AMARYL) 2 mg tablet Take 1 tablet by mouth daily with breakfast. Take 2 mg twice a day. May increase to 4mg BID if your PCP requests so. 06/21/2023 Active Start: 07-15-2022 End: 06-14-2023 take 2 capsules by mouth twice daily in the evening glimepiride (AMARYL) 2 mg tablet Take 2 mg by mouth twice daily with meals. Take 2 capsules by mouth in AM & 2 capsule in PM. 0 07/15/2022 06/14/2023 Discontinued Start: 04-19-2022 End: 01-31-2024 take 4 mg by mouth once daily Glimepiride Discontinued 4 MG PO DAILY April 19, 2022 12:00am January 31, 2024 5:56pm Start: 04-19-2022 take 2 mg by mouth t hree times daily Glimepiride Active 2 MG PO THREE TIMES A DAY April 19, 2022 12:00am Comment on above: 2 mg once daily. 2 mg. 2 capsule in a m and 1 capsule in pm Take 2 capsules by m outh in AM & 1 capsule in PM. Take 2 mg by mouth t wice daily with meals. Take 2 capsules by mouth in AM & 2 capsule in PM. Take 1 tablet by becca th daily with breakfast. Take 2 mg daily with breakfast until instructed to increase by your outpatient team. Take 1 tablet by becca th daily with breakfast. Take 2 mg twice a day. May increase to 4mg BID if your PCP requests so. hydroCHLOROthiazide 12.5 mg oral tablet (4 sources) Thiazide Diuretic Start : 04-19 take 12.5 mg by mouth once daily Hydrochlorothiazide Active 12.5 MG PO DAILY April 19, 2022 12:00am iv contrast (will be provided with radiology test) (14 sources) Start : 04-08 End: 04-09 inject 1 dose intravenously once iv contrast (will be provided with radiology test) MRI Brain Inject, intravenously, once for 1 dose.No IV access, insert saline lock prior to beginning of sedation, infusion, injection of imaging exam.Discontinue saline lock post exam. If Pt. has a central line or IVAD, may access for administration according to line specific nursing protocol.Once exam is complete flush line and de-access according to line specific nursing protocol in the MR contrast administration guidelines link 1 each 04/08/2025 04/09/2025 Active Start: 10-08-2024 End: 10-09-2024 inject 1 dose intravenously once iv contrast (will be provided with radiology test) MRI Brain Inject, intravenously, once for 1 dose.No IV access, insert saline lock prior to beginning of sedation, infusion, injection of imaging exam.Discontinue saline lock post exam. If Pt. has a central line or IVAD, may access for administration according to line specific nursing protocol.Once exam is complete flush line and de-access according to line specific nursing protocol in the MR contrast administration guidelines link 1 Each 10/08/2024 10/09/2024 Active Start: 04-09-2024 End: 04-10-2024 inject 1 dose intravenously once iv contrast (will be provided with radiology test) MRI Brain Inject, intravenously, once for 1 dose.No IV access, insert saline lock prior to beginning of sedation, infusion, injection of imaging exam.Discontinue saline lock post exam. If Pt. has a central line or IVAD, may access for administration according to line specific nursing protocol.Once exam is complete flush line and de-access according to line specific nursing protocol in the MR contrast administration guidelines link 1 Each 0 04/09/2024 04/10/2024 Start: 03-27-2024 End: 03-28-2024 inject 1 dose intravenously once, then inject 1 dose intravenously once iv contrast (will be provided with radiology test) Indications: Schwannoma of nerve of head , Multiple myeloma not having achieved remission (HCC) MRI Skull Base Inject, intravenously, once for 1 dose. No IV access, insert saline lock prior to the beginning of sedation, infusion, injection of imaging exam. Discontinue saline lock post exam. If Pt. has a central line or IVAD, may access for administration according to line specific nursing protocol. Once exam is complete flush line and de-access according to line specific nursing protocol in the MR contrast administration guidelines link. 1 Each 0 03/27/2024 03/28/2024 Active Start: 03-25-2024 End: 03-26-2024 inject 1 dose intravenously once iv contrast (will be provided with radiology test) Indications: Schwannoma of nerve of head MRI Brain Inject, intravenously, once for 1 dose.No IV access, insert saline lock prior to beginning of sedation, infusion, injection of imaging exam.Discontinue saline lock post exam. If Pt. has a central line or IVAD, may access for administration according to line specific nursing protocol.Once exam is complete flush line and de-access according to line specific nursing protocol in the MR contrast administration guidelines link 1 Each 0 03/25/2024 03/26/2024 Active Start: 03-07-2024 End: 03-08-2024 inject 1 dose intravenously once iv contrast (will be provided with radiology test) Indications: Altered mental status, unspecified altered mental status type , Multiple myeloma not having achieved remission (HCC) MRI Brain Inject, intravenously, once for 1 dose.No IV access, insert saline lock prior to beginning of sedation, infusion, injection of imaging exam.Discontinue saline lock post exam. If Pt. has a central line or IVAD, may access for administration according to line specific nursing protocol.Once exam is complete flush line and de-access according to line specific nursing protocol in the MR contrast administration guidelines link 1 Each 0 03/07/2024 03/08/2024 Active Start: 09-09-2022 End: 09-10-2022 iv contrast (will be provide d with radiology test) Indications: Smoldering myeloma MRI pelvis ortho Inj, intravenously, once for 1 dose. No IV access, insert saline lock prior to the beginning of sedation, infusion, injection of imaging exam. Discontinue saline lock post exam. If Pt. has a central line or IVAD, may access for administration according to line specific nursing protocol. Once exam is complete flush line and de-access according to line specific nursing protocol in the MR contrast administration guidelines link 1 Each 0 09/09/2022 09/10/2022 Start: 09-09-2022 End: 09-10-2022 iv contrast (will be provide d with radiology test) Indications: Smoldering myeloma MRI CSP Inject, intravenously, once for 1 dose. No IV access, insert saline lock prior to the beginning of sedation, infusion, injection of imaging exam. Discontinue saline lock post exam. If Pt. has a central line or IVAD, may access for administration according to line specific nursing protocol. Once exam is complete flush line and de-access according to line specific nursing protocol in the MR contrast administration guidelines link. 1 Each 0 09/09/2022 09/10/2022 Start: 09-09-2022 End: 09-10-2022 inject 1 dose intravenously once iv contrast (will be provided with radiology test) Indications: Smoldering myeloma MRI TSP Inject, intravenously, once for 1 dose. No IV access, insert saline lock prior to the beginning of sedation, infusion, injection of imaging exam. Discontinue saline lock post exam. If Pt. has a central line or IVAD, may access for administration according to line specific nursing protocol. Once exam is complete flush line and de-access according to line specific nursing protocol in the MR contrast administration guidelines link. 1 Each 0 09/09/2022 09/10/2022 Start: 09-09-2022 End: 09-10-2022 iv contrast (will be provide d with radiology test) Indications: Smoldering myeloma MRI LSP Inject, intravenously, once for 1 dose. No IV access, insert saline lock prior to the beginning of sedation, infusion, injection of imaging exam. Discontinue saline lock post exam. If Pt. has a central line or IVAD, may access for administration according to line specific nursing protocol. Once exam is complete flush line and de-access according to line specific nursing protocol in the MR contrast administration guidelines link. 1 Each 0 09/09/2022 09/10/2022 Start: 08-30-2022 End: 08-31-2022 iv contrast (will be provide d with radiology test) MRI Liver Inject, intravenously, once for 1 dose. No IV access, insert saline lock prior to the beginning of sedation, infusion, injection of imaging exam. Discontinue saline lock post exam. If Pt. has a central line or IVAD, may access for administration according to line specific nursing protocol. Once exam is complete flush line and de-access according to line specific nursing protocol in the MR contrast administration guidelines link. 1 Each 0 08/30/2022 08/31/2022 Active Start: 08-15-2022 End: 08-16-2022 iv contrast (will be provide d with radiology test) CT ABD/PEL -Inject, intravenously, once for 1 dose.No IV access, insert saline lock prior to the beginning of sedation, infusion, injection of imaging exam. Discontinue saline lock post exam. If Pt. has a central line or IVAD, may access for administration according to line specific nursing protocol. Once exam is complete flush line and de-access according to line specific nursing protocol in the CT contrast administration guidelines link. 1 Each 0 08/15/2022 08/16/2022 Comment on above: CT ABD/PEL -Inject, intravenously, once for 1 dose.No IV access, insert saline lock prior to the beginning of sedation, infusion, injection of imaging exam. Discontinue saline lock post exam. If Pt. has a central line or IVAD, may access for administration according to line specific nursing protocol. Once exam is complete flush line and de-access according to line specific nursing protocol in the CT contrast administration guidelines link. MRI Liver Inject, in travenously, once for 1 dose. No IV access, insert saline lock prior to the beginning of sedation, infusion, injection of imaging exam. Discontinue saline lock post exam. If Pt. has a central line or IVAD, may access for administration according to line specific nursing protocol. Once exam is complete flush line and de-access according to line specific nursing protocol in the MR contrast administration guidelines link. MRI pelvis ortho Inj , intravenously, once for 1 dose. No IV access, insert saline lock prior to the beginning of sedation, infusion, injection of imaging exam. Discontinue saline lock post exam. If Pt. has a central line or IVAD, may access for administration according to line specific nursing protocol. Once exam is complete flush line and de-access according to line specific nursing protocol in the MR contrast administration guidelines link MRI CSP Inject, intr avenously, once for 1 dose. No IV access, insert saline lock prior to the beginning of sedation, infusion, injection of imaging exam. Discontinue saline lock post exam. If Pt. has a central line or IVAD, may access for administration according to line specific nursing protocol. Once exam is complete flush line and de-access according to line specific nursing protocol in the MR contrast administration guidelines link. MRI TSP Inject, intr avenously, once for 1 dose. No IV access, insert saline lock prior to the beginning of sedation, infusion, injection of imaging exam. Discontinue saline lock post exam. If Pt. has a central line or IVAD, may access for administration according to line specific nursing protocol. Once exam is complete flush line and de-access according to line specific nursing protocol in the MR contrast administration guidelines link. MRI LSP Inject, intr avenously, once for 1 dose. No IV access, insert saline lock prior to the beginning of sedation, infusion, injection of imaging exam. Discontinue saline lock post exam. If Pt. has a central line or IVAD, may access for administration according to line specific nursing protocol. Once exam is complete flush line and de-access according to line specific nursing protocol in the MR contrast administration guidelines link. lenalidomide 5 mg oral capsule (20 sources) Thalidomide Analog Start: End: 5 take 1 capsule by mouth once daily REVLIMID 5 mg capsule TAKE 1 CAPSULE BY MOUTH DAILY FOR 28 DAYS 28 capsule 05/12/2025 Active Start: 05-07-2024 End: 02-04-2025 take 1 capsule by mouth once daily REVLIMID 5 mg capsule TAKE 1 CAPSULE BY MOUTH DAILY FOR 28 DAYS 28 capsule 02/04/2025 Active Start: 11-16-2023 End: 05-07-2024 take 1 capsule by mouth once daily lenalidomide (REVLIMID) 10 mg capsule TAKE 1 CAPSULE BY MOUTH DAILY FOR 28 DAYS 28 capsule 0 04/03/2024 05/07/2024 Discontinued Start: 09-20-2023 take 1 capsule by mo [facility] once daily lenalidomide (REVLIMID) 10 mg capsule TAKE 1 CAPSULE BY MOUTH DAILY FOR 28 DAYS 28 capsule 0 09/20/2023 Active Start: 08-21-2023 End: 09-12-2023 take 1 capsule by mouth once daily REVLIMID 10 mg capsule TAKE 1 CAPSULE BY MOUTH DAILY FOR 28 DAYS 28 capsule 0 09/12/2023 Active Start: 10-26-2022 End: 01-27-2024 take 1 capsule by mouth once daily Lenalidomide (Revlimid) 25 mg capsule Discontinued 25 MG PO DAILY January 16, 2023 12:00am January 27, 2024 9:01am Comment on above: Take 1 capsule by mo uth once daily. for 21 days then off 1 week. TAKE 1 CAPSULE BY MO UTH DAILY FOR 21 DAYS, THEN 7 DAYS OFF TAKE 1 CAPSULE BY MO UTH DAILY FOR 14 DAYS, THEN 7 DAYS OFF Take 1 capsule by mo uth once daily. Take 1 capsule once daily for 28 days. TAKE 1 CAPSULE BY MO UTH DAILY FOR 28 DAYS Zcbwqu-Auoszune-Cdpgbac (Zenpep) 40,000-126,000- 168,000 unit capsule,delayed release(DR/EC) (2 sources) Start: 09-26-2022 Dwehbx-Pegtmpor-Nyrtmsn (Zenpep) 40,000-126,000- 168,000 unit capsule,delayed release(DR/EC) Active 0 PO .COMPLEX 320 September 26, 2022 1:00am take 1-2 with snacks and 2-3 with meals. Take the higher dose with higher fat content meals. Start: 09-26-2022 Lipase-Proteas e-Amylase (Zenpep) 40,000-126,000- 168,000 unit capsule,delayed release(DR/EC) Active 0 PO .COMPLEX 320 September 26, 2022 12:00am take 1-2 with snacks and 2-3 with meals. Take the higher dose with higher fat content meals. losartan potassium 50 mg oral tablet (20 sources) Angiotensin 2 Receptor Jamaal Start: 02-10-2021 take 1 tablet by mouth once daily losartan (COZAAR) 50 mg tablet Take 50 mg by mouth once daily. 02/10/2021 Active Comment on above: 50 mg once daily. Take 50 mg by mouth once daily. 24 hr metFORMIN hydrochloride 500 mg extended release oral tablet (14 sources) Biguanide Start: 04-19-2022 take 500 mg by mouth once daily Metformin Active 500 MG PO DAILY April 19, 2022 12:00am Start: 04-19-2022 take 1000 mg by mouth once reynold ly Metformin Active 1000 MG PO DAILY April 19, 2022 12:00am Start: 02-10-2021 End: 08-15-2022 metFORMIN ER (GLUCOPHAGE XR) 500 mg 24 hr tablet Start: 02-09-2021 take 2000 mg by mouth once reynold ly Metformin Active 2000 MG PO DAILY February 09, 2021 12:00am mupirocin 0.02 mg/mg topical ointment (5 sources) RNA Synthetase Inhibitor Antibacterial Start: 04-17-2025 End: 04-22-2025 mupirocin (BACTROBAN) 2 % ointment two times a day for 5 days. Apply 0.5 inch with cotton swab (Q-tip) to each nostril in the morning and evening for 5 days prior to and including day of surgery. 22 g 04/17/2025 04/22/2025 Active ondansetron 8 mg oral tablet (20 sources) Serotonin-3 Receptor Antagonist Start: 10-26-2022 take 1 tablet by mouth every eight hours as needed for nausea ondansetron (ZOFRAN) 8 mg tablet Indications: cancer chemotherapy-cheng juliette nausea and vomiting Take 1 tablet by mouth every 8 hours as needed for nausea/vomiting. 30 tablet 2 10/26/2022 Active Comment on above: Take 1 tablet by becca th every 8 hours as needed for nausea/vomiting. oseltamivir 75 mg oral capsule (4 sources) Neuraminidase Inhibitor Start: 02-02-2024 Oseltamivir Active 75 MG PO TWICE A DAY 0 February 02, 2024 12:00am take 7 more doses Start: 01-27-2024 End: 01-31-2024 take 75 mg by mouth twice daily Oseltamivir Discontinued 75 MG PO TWICE A DAY January 27, 2024 12:00am January 31, 2024 5:56pm perflutren lipid microspheres 1.3 mL in NaCl (PF) 0.9% 10 mL injection (DEFINAbazab) (20 sources) Start: 03-30-2023 End: 06-28-2024 perflutren lipid microspheres 1.3 mL in NaCl (PF) 0.9% 10 mL injection (DEFINITY) microencapsulated potassium chloride 20 meq extended release oral tablet (20 sources) Start: 05-01-2025 take 1 tablet by mouth once daily potassium chloride ER (KLOR-CON) 20 mEq tablet Take 1 tablet by mouth once daily. 20 tablet 05/01/2025 Active Start: 05-02-2024 End: 06-27-2024 take 1 tablet by mouth once daily potassium chloride ER (KLOR-CON) 20 mEq tablet Take 1 tablet by mouth once daily. 7 tablet 05/02/2024 06/27/2024 Discontinued Start: 12-14-2022 End: 02-28-2023 take 20 mEq by mouth once daily Potassium Chloride Dis continued 20 MEQ PO DAILY January 16, 2023 12:00am January 17, 2023 2:21pm Start: 04-21-2022 take 40 mEq by mouth once sugey y Potassium Chloride Active 40 MEQ PO DAILY April 21, 2022 12:00am Start: 04-17-2022 Potassium Chlo ride Active 20 MEQ PO DAILY April 17, 2022 12:00am 1 tablet 3 times a day for 2 days then 1 tablet 2 times a day for 2 more days then once a day until your potassium is rechecked this coming week Comment on above: Take 1 tablet by becca once daily. potassium phosphate 155 mg / sodium phosphate, dibasic 852 mg / sodium phosphate, monobasic 130 mg oral tablet (3 sources) Start: 04-21-2022 take 1 tablet by mouth three times daily Sod Phos Di, Morton-K Phos Morton (X-Ucfz-Prjyydz) 250 mg tablet Active 1 TABLET PO THREE TIMES A DAY April 21, 2022 12:00am psyllium 400 mg oral capsule (3 sources) Start: 09-16-2022 Psyllium Husk (Metamucil) 0.4 gram Capsule Active 0.4 GM PO DAILY September 16, 2022 1:00am rivaroxaban 20 mg oral tablet (20 sources) Factor Xa Inhibitor Start: 02-03-2025 End: 03-31-2025 take 1 tablet by mouth once daily rivaroxaban (XARELTO) 20 mg tablet TAKE 1 TABLET BY MOUTH ONCE DAILY WITH SUPPER 30 tablet 11 03/31/2025 Active Start: 11-17-2024 End: 01-09-2025 take 1 tablet by mouth once daily at dinner rivaroxaban (XARELTO) 20 mg tablet TAKE 1 TABLET BY MOUTH ONCE DAILY WITH DINNER 30 tablet 5 12/17/2024 01/09/2025 Discontinued Start: 11-27-2023 End: 11-15-2024 take 1 tablet by mouth once daily at dinner rivaroxaban (XARELTO) 20 mg tablet Take 1 tablet by mouth daily with dinner. 30 tablet 10/22/2024 11/15/2024 Discontinued Comment on above: Take 1 tablet by becca th daily with dinner. Velade (9 sources) Start: 01-16-2023 Velade Active 0 .ROUTE .COMPLEX January 15, 2023 11:00pm GETS IV WEEKLY AT DR MCCAIN'S OFFICE Start: 01-16-2023 Velade Active 0 .ROUTE .COMPLEX January 16, 2023 12:00am GETS IV WEEKLY AT DR MCCAIN'S OFFICE vitamin b12 1 mg oral tablet (20 sources) Vitamin B12 take 2 tablets by mouth once daily cyanocobalamin (VITAMIN B-12) 1,000 mcg tab Take 2,000 mcg by mouth once daily. Active Completed/Discontinued Medications Medication Drug Class(es) Dates Sig (Normalized) Sig (Original) acetaminophen 500 mg oral tablet (20 sources) End: 05-26-2025 take 2 tablets by mouth every eight hours as needed acetaminophen (TYLENOL EXTRA STRENGTH) 500 mg tablet Take 1,000 mg by mouth every 8 hours as needed. 05/26/2025 Discontinued acetaminophen 325 mg / oxyCODONE hydrochloride 5 mg oral tablet (1 source) Opioid Agonist Start: 04-19-2023 End: 04-19-2023 oxyCODONE-acetamino phen 5-325 mg 1-2 tablet (PERCOCET) Start: 04-19-2023 End: 04-19-2023 oxyCODONE-acetaminophen 5-32 5 mg 1-2 tablet (PERCOCET) amLODIPine 5 mg oral tablet (20 sources) Dihydropyridine Calcium Channel Jamaal Start: 02-10-2021 End: 04-03-2025 take 2 tablets by mouth once daily amLODIPine (NORVASC) 5 mg tablet Take 10 mg by mouth once daily. 02/10/2021 04/03/2025 Discontinued Start: 02-09-2021 take 1 tablet by becca th once daily amLODIPine (NORVASC) 5 mg tablet Take 5 mg by mouth once daily. 0 02/10/2021 Active Comment on above: 5 mg once daily. Take 5 mg by mouth o nce daily. apixaban 5 mg oral tablet (20 sources) Factor Xa Inhibitor Start: 06-13-2023 End: 11-27-2023 take 1 tablet by mouth twice daily apixaban (ELIQUIS) 5 mg tab(s) Take 1 tablet by mouth twice daily. 60 tablet 11 06/21/2023 11/27/2023 Discontinued Start: 01-19-2023 End: 02-28-2023 take 1 tablet by mouth twice daily apixaban (ELIQUIS) 5 mg tab(s) Take 1 tablet by mouth twice daily. 60 tablet 11 02/28/2023 Suspended Start: 01-17-2023 End: 01-31-2023 take 2 tablets by mouth twice daily, then take 1 tablet by mouth twice daily ELIQUIS 5 mg tab(s) take 2 tablets by mouth twice a day for 7 days then take 1 tablet by mouth twice a day THEREAFTER 0 01/17/2023 01/31/2023 Discontinued Start: 01-17-2023 End: 01-31-2024 Apixaban (Eliquis Dvt-Pe Julio César at 30d Start) 5 mg (74 tabs) tablets,dose pack Discontinued 0 .ROUTE .COMPLEX January 17, 2023 12:00am January 31, 2024 5:55pm Take two tabs twice daily for 7 days followed by one tab twice daily Start: 01-17-2023 Apixaban (Eliq uis Dvt-Pe Treat d Start) 5 mg (74 tabs) tablets,dose pack Active 0 .ROUTE .COMPLEX January 16, 2023 11:00pm Take two tabs twice daily for 7 days followed by one tab twice daily Start: 01-17-2023 Apixaban (Eliq uis Dvt-Pe Treat d Start) 5 mg (74 tabs) tablets,dose pack Active 0 .ROUTE .COMPLEX January 17, 2023 12:00am Take two tabs twice daily for 7 days followed by one tab twice daily Comment on above: take 2 tablets by mo ut twice a day for 7 days then take 1 tablet by mouth twice a day THEREAFTER Take 1 tablet by becca twice daily. Take 1 tablet by [facility] twice daily. Do not resume until told to do so by outpatient provider aspirin 81 mg delayed release oral tablet (20 sources) Platelet Aggregation Inhibitor, Nonsteroidal Anti-inflammatory Drug Start: 01-17-20 End: 01-31-20 take 81 mg by mouth once daily Aspirin Discontinued 81 MG PO DAILY January 16, 2023 12:00am January 31, 2024 5:55pm Comment on above: Take 81 mg by mouth once daily. azithromycin 500 mg oral tablet (20 sources) Macrolide Antimicrobial Start: 02-02-20 End: 03-07-20 take 1 tablet by mouth once azithromycin (ZITHROMAX) 500 mg tablet Take 1 tablet by mouth every afternoon. 0 02/02/2024 03/07/2024 Discontinued Start: 04-21-2022 End: 07-11-2022 take 250 mg by mouth every twenty-four hours Azithromycin Discontinued 250 MG PO EVERY 24 HOURS 3 April 21, 2022 12:00am July 11, 2022 8:31am Comment on above: Take 1 tablet by [facility] every afternoon. doxycycline monohydrate 100 mg oral tablet (7 sources) Tetracycline-class Drug Start: 2 End: 3 take 1 tablet by mouth twice daily doxycycline monohydrate 100 mg tablet Take 100 mg by mouth twice daily. 0 08/26/2022 10/28/2022 Discontinued Comment on above: Take 100 mg by mouth twice daily. enteric contrast (will be provided with radiology test) (1 source) Start: 2 End: 2 enteric contrast (will be provided with radiology test) For CT ABD/PEL W IVCON Routine order Administer, As Directed One Time Only, via Oral, Rectal, both Oral and Rectal, Enteric Tube, Stoma or Indwelling Catheter, Enteric Contrast as designated per enteric contrast guidelines 1 Each 0 08/15/2022 08/16/2022 Comment on above: For CT ABD/PEL W IVC ON Routine order Administer, As Directed One Time Only, via Oral, Rectal, both Oral and Rectal, Enteric Tube, Stoma or Indwelling Catheter, Enteric Contrast as designated per enteric contrast guidelines 0.5 ml filgrastim-sndz 0.6 mg/ml prefilled syringe (16 sources) Leukocyte Growth Factor Start: filgrastim biosimilar (ZARXIO) 300 mcg/0.5 mL injection Indications: Multiple myeloma not having achieved remission (HCC) Inject 3 syringes (1.5 mL ,900 mcg) subcutaneously once daily for 4 days. For Stem Cell Mobilization. 6 mL 0 05/11/2023 Suspended Start: 05-11-2023 filgrastim bio similar (ZARXIO) 300 mcg/0.5 mL injection Indications: Multiple myeloma not having achieved remission (HCC) Inject 3 syringes (1.5 mL ,900 mcg) subcutaneously once daily for 4 days. For Stem Cell Mobilization. 6 mL 0 05/11/2023 Active Start: 05-11-2023 inject 1.5 mL by sub cutaneous injection once daily filgrastim biosimilar (ZARXIO) 300 mcg/0.5 mL injection Indications: Multiple myeloma not having achieved remission (HCC) Inject 1.5 mL (900 mcg) subcutaneously once daily for 4 days. For Stem Cell Mobilization. 6 mL 0 05/11/2023 Active Start: 05-11-2023 inject 1.5 mL by sub cutaneous injection once daily filgrastim biosimilar (ZARXIO) 300 mcg/0.5 mL injection Indications: Multiple myeloma not having achieved remission (HCC) Inject 1.5 mL (900 mcg) subcutaneously once daily for 4 days. For Stem Cell Mobilization. 6 mL 0 05/11/2023 Active Start: 05-11-2023 inject 1.5 mL by sub cutaneous injection once daily filgrastim biosimilar (ZARXIO) 300 mcg/0.5 mL injection Indications: Multiple myeloma not having achieved remission (HCC) Inject 1.5 mL (900 mcg) subcutaneously once daily for 4 days. For Stem Cell Mobilization. 6 mL 0 05/11/2023 Active Start: 05-11-2023 inject 1.5 mL by sub cutaneous injection once daily filgrastim biosimilar (ZARXIO) 300 mcg/0.5 mL injection Indications: Multiple myeloma not having achieved remission (HCC) Inject 1.5 mL (900 mcg) subcutaneously once daily for 4 days. For Stem Cell Mobilization. 6 mL 0 05/11/2023 Active Start: 05-11-2023 inject 1.5 mL by sub cutaneous injection once daily filgrastim biosimilar (ZARXIO) 300 mcg/0.5 mL injection Indications: Multiple myeloma not having achieved remission (HCC) Inject 1.5 mL (900 mcg) subcutaneously once daily for 4 days. For Stem Cell Mobilization. 6 mL 0 05/11/2023 Active Comment on above: Inject 1.5 mL (900 mcg) subcutaneously o nce daily for 4 days. For Stem Cell Mobilization. Inject 3 syringes (1 .5 mL ,900 mcg) subcutaneously once daily for 4 days. For Stem Cell Mobilization. insulin detemir (4 sources) Insulin Analog End: 02-29-20 inject 5 [IU] by subcutaneous injection once daily at bedtime insulin detemir (LEVEMIR FLEXPEN SUBCUTANEOUS) Inject 5 Units subcutaneously daily at bedtime. 0 02/28/2023 Discontinued inject 5 [IU] by sub cutaneous injection once daily at bedtime insulin detemir (LEVEMIR FLEXPEN SUBCUTANEOUS) Inject 5 Units subcutaneously daily at bedtime. 0 Active Comment on above: Inject 5 Units subcu taneously daily at bedtime. linaclotide 0.145 mg oral capsule (20 sources) Guanylate Cyclase-C Agonist Start: 12-05-2022 End: 01-31-2024 Linaclotide (Linzess) 145 mcg capsule Discontinued 145 MCG PO DAILY December 05, 2022 1:00am January 31, 2024 5:56pm take 30 minutes prior to first intake of the day. End: 04-18-2023 take 6 capsules by mouth once daily in the morning linaclotide (LINZESS) 145 mcg capsule Take 145 mcg by mouth DAILY (6 AM). 0 04/18/2023 Discontinued Comment on above: Take 145 mcg by mout h DAILY (6 AM). Loperamide (20 sources) Opioid Agonist End: 10-08-2024 loperamide HCl (IMODIUM ORAL) Take by mouth as needed. 10/08/2024 Discontinued loperamide HCl ( IMODIUM ORAL) Take by mouth as needed. Active loperamide HCl ( IMODIUM ORAL) Take by mouth as needed. 0 Active Comment on above: Take by mouth as nee ded. magnesium oxide 400 mg oral tablet (15 sources) Start: 04-21-2022 End: 07-11-2022 take 400 mg by mouth once daily Magnesium Oxide Discontinued 400 MG PO DAILY April 21, 2022 12:00am July 11, 2022 8:32am MEDICAL SUPPLY (16 sources) Start: 04-26-2023 MEDICAL SUPPLY Indications: Multiple myeloma not having achieved remission (HCC) BMT Patient. Change dressing and caps weekly. Patient and caregiver to wear mask during dressing changes. 2 Each 1 04/26/2023 Suspended Start: 04-26-2023 MEDICAL SUPPLY Indications: Multiple myeloma not having achieved remission (HCC) BMT Patient. Change dressing and caps weekly. Patient and caregiver to wear mask during dressing changes. 2 Each 04/26/2023 Active Comment on above: BMT Patient. Change dressing and caps weekly. Patient and caregiver to wear mask during dressing changes. melatonin 3 mg oral tablet (20 sources) Start: 2022 End: 2022 take 2 tablets by mouth at bedtime as needed melatonin 3 mg tablet Indications: Multiple myeloma not having achieved remission (HCC) Take 2 tablets by mouth at bedtime as needed for for insomnia. 0 06/13/2023 08/23/2023 Discontinued Comment on above: Take 2 tablets by [facility] at bedtime as needed for for insomnia. predniSONE 20 mg oral tablet (5 sources) Start: 2023 End: 2023 take 2 tablets by mouth once daily, then take 1 tablet by mouth once daily, then take 0.5 tablet by mouth once daily predniSONE (DELTASONE) 20 mg tablet Take 2 tablets by mouth once daily for 4 days, THEN 1 tablet once daily for 4 days, THEN 0.5 tablets once daily for 4 days. 14 tablet 09/12/2024 09/24/2024 sildenafil 50 mg oral tablet (20 sources) Phosphodiesterase 5 Inhibitor End: 2024 sildenafil (VIAGRA) 50 mg tablet Take 50 mg by mouth as needed. 01/09/2025 Discontinued Comment on above: Take 50 mg by mouth as needed. 125 ml sodium chloride 9 mg/ml prefilled syringe (20 sources) Start: 2022 End: 2022 inject 10 mL intravenously once daily sodium chloride 0.9 %, flush, (BD POSIFLUSH) syringe Indications: Multiple myeloma not having achieved remission (HCC) Inject 10 mL intravenously once daily. BMT Patient. Flush each lumen daily. 300 mL 1 05/11/2023 06/21/2023 Discontinued Start: 05-11-2023 inject 10 mL intrave nously once daily sodium chloride 0.9 %, flush, (BD POSIFLUSH) syringe Indications: Multiple myeloma not having achieved remission (HCC) Inject 10 mL intravenously once daily. BMT Patient. Flush each lumen daily. 300 mL 1 05/11/2023 Active Start: 05-11-2023 inject 10 mL intrave nously once daily sodium chloride 0.9 %, flush, (BD POSIFLUSH) syringe Indications: Multiple myeloma not having achieved remission (HCC) Inject 10 mL intravenously once daily. BMT Patient. Flush each lumen daily. 300 mL 1 05/11/2023 Active Start: 05-11-2023 inject 10 mL intrave nously once daily sodium chloride 0.9 %, flush, (BD POSIFLUSH) syringe Indications: Multiple myeloma not having achieved remission (HCC) Inject 10 mL intravenously once daily. BMT Patient. Flush each lumen daily. 300 mL 1 05/11/2023 Active Start: 05-11-2023 inject 10 mL intrave nously once daily sodium chloride 0.9 %, flush, (BD POSIFLUSH) syringe Indications: Multiple myeloma not having achieved remission (HCC) Inject 10 mL intravenously once daily. BMT Patient. Flush each lumen daily. 300 mL 1 05/11/2023 Active Start: 05-11-2023 inject 10 mL intrave nously once daily sodium chloride 0.9 %, flush, (BD POSIFLUSH) syringe Indications: Multiple myeloma not having achieved remission (HCC) Inject 10 mL intravenously once daily. BMT Patient. Flush each lumen daily. 300 mL 1 05/11/2023 Active Start: 05-11-2023 inject 10 mL intrave nously once daily sodium chloride 0.9 %, flush, (BD POSIFLUSH) syringe Indications: Multiple myeloma not having achieved remission (HCC) Inject 10 mL intravenously once daily. BMT Patient. Flush each lumen daily. 300 mL 1 05/11/2023 Active Start: 03-30-2023 End: 06-28-2024 sodium chloride 0.9 % (flush ) 10 mL (BD POSIFLUSH) Comment on above: Inject 10 mL intrave nously once daily. BMT Patient. Flush each lumen daily. tiZANidine 2 mg oral tablet (20 sources) Central alpha-2 Adrenergic Agonist Start: 4 End: 5 take 1 tablet by mouth every six hours as needed tiZANidine (ZANAFLEX) 2 mg tablet Take 1 tablet by mouth every 6 hours as needed. 45 tablet 09/12/2024 01/09/2025 Discontinued 100 ml zoledronic acid 0.04 mg/ml injection (5 sources) Bisphosphonate Start: 5 End: 4 mg, INTRAVENOUS, Administer over 15 Minutes, ONCE, 1 dose, On Mon12/12/24 at 1100, Hazardous Potential Reproductive Risk Drug: Use appropriate PPE. Start: 09-18-2024 End: 09-18-2024 4 mg, INTRAVENOUS, Administe r over 15 Minutes, ONCE, 1 dose, On Mon09/18/24 at 0900, Hazardous Potential Reproductive Risk Drug: Use appropriate PPE. Start: 06-27-2024 End: 06-27-2024 4 mg, INTRAVENOUS, Administe r over 15 Minutes, ONCE, 1 dose, On Mon06/27/24 at 0930, Hazardous Potential Reproductive Risk Drug: Use appropriate PPE. Start: 04-04-2024 End: 04-04-2024 zoledronic zw-kdbwqxla-8.9Na Cl 4 mg iv piggyback 100 mL (ZOMETA) Start: 03-07-2024 End: 03-07-2024 zoledronic ms-uwwhibaj-3.9Na Cl 4 mg iv piggyback 100 mL (ZOMETA) zoledronic acid 3.5 mg in Na Cl 0.9% 100 mL (ZOMETA) (1 source) Start: 04-03-2025 End: 04-03-2025 3.5 mg, INTRAVENOUS, Adminis ter over 15 Minutes, ONCE, 1 dose, On Mon04/03/25 at 1000, Approx Total Volume - IMMEDIATE USE at room temp Hazardous Potential Reproductive Risk Drug: Use appropriate PPE. Refrigerate. Exp: (24 HR) Problems Active Problems Problem Classification Problem Date Documented Da te Episodic/Chronic Abdominal hernia (1 source) Bilateral inguinal hernia; Translations: [Bilateral inguinal hernia, without obstruction or gangrene, not specified as recurrent] 07-07-2023 Episodic Abdominal pain (1 source) Unspecified abdominal pain; Translations: [Unspecified abdominal pain] Onset: 10-11-2024 Episodic Administrative/social admission (3 sources) Patient encounter status; Translations: [Counseling, unspecified] Episodic Conduction disorders (20 sources) Right bundle branch block; Translations: [Unspecified right bundle-branch block] Onset: 04-17-2023 Chronic Deficiency and other anemia (20 sources) Pancytopenia due to antineoplastic chemotherapy; Translations: [Antineoplastic chemotherapy induced pancytopenia] Onset: 06-06-2023 06-07-2023 Chronic Deficiency and other anemia (3 sources) Other pancytopenia; Translations: [Other pancytopenia] Onset: 02-02-2024 01-31-2024 Chronic Delirium, dementia, and amnestic and other cognitive disorders (20 sources) Primary degenerative dementia of the Alzheimer type, senile onset, uncomplicated; Translations: [Alzheimer's disease with late onset] Onset: 02-24-2025 01-20-2025 Chronic Diabetes mellitus with complications (4 sources) Type 2 diabetes mellitus with hypoglycemia without coma; Translations: [Autonomic neuropathy due to type 2 diabetes mellitus] Onset: 01-31-2024 10-02-2024 Chronic Diabetes mellitus without complication (20 sources) Type 2 diabetes mellitus; Translations: [Type 2 diabetes mellitus without complications] Onset: 04-17-2023 04-17-2023 Chronic Diseases of white blood cells (7 sources) Neutropenia; Translations: [Neutropenia, unspecified] Onset: 02-05-2024 01-31-2024 Chronic Disorders of lipid metabolism (20 sources) Hyperlipidemia; Translations: [Other hyperlipidemia] Onset: 04-17-2023 04-17-2023 Chronic Essential hypertension (20 sources) Essential hypertension; Translations: [Essential (primary) hypertension] Onset: 04-17-2023 04-17-2023 Chronic Immunity disorders (20 sources) Patient immunocompromised; Translations: [Immunodeficiency, unspecified] 06-07-2023 Chronic Immunizations and screening for infectious disease (4 sources) Vaccination needed; Translations: [Encounter for immunization] 07-10-2023 Episodic Intestinal infection (2 sources) Enteric campylobacteriosis; Translations: [Campylobacter enteritis] 02-08-2024 Episodic Multiple myeloma (20 sources) Multiple myeloma; Translations: [Multiple myeloma not having achieved remission] Onset: 10-26-2022 Chronic Nausea and vomiting (20 sources) Chemotherapy-induced nausea and vomiting; Translations: [Nausea with vomiting, unspecified] 06-07-2023 Episodic Noninfectious gastroenteritis (20 sources) Chronic diarrhea; Translations: [Noninfective gastroenteritis and colitis, unspecified] 04-25-2022 Episodic Nutritional deficiencies (2 sources) Vitamin D deficiency; Translations: [Vitamin D deficiency, unspecified] Chronic Osteoarthritis (10 sources) Primary coxarthrosis, bilateral; Translations: [Bilateral primary osteoarthritis of hip] Onset: 05-22-2025 Chronic Other and unspecified benign neoplasm (7 sources) Acoustic neuroma; Translations: [Benign neoplasm of cranial nerves] 04-12-2024 Chronic Other and unspecified benign neoplasm (2 sources) Benign neoplasm of cranial nerves; Translations: [Vestibular schwannoma (HCC)] Onset: 10-03-2024 Chronic Other and unspecified benign neoplasm (4 sources) Schwannoma of nerve of head; Translations: [Benign neoplasm of peripheral nerves and autonomic nervous system of face, head, and neck] 03-25-2024 Episodic Other connective tissue disease (1 source) History of total hip arthroplasty; Translations: [Presence of right artificial hip joint] Onset: 05-23-2025 05-23-2025 Chronic Other connective tissue disease (1 source) Swelling of lower limb; Translations: [Other specified soft tissue disorders] Episodic Other connective tissue disease (1 source) Ganglion cyst; Translations: [Ganglion, unspecified site] Episodic Other connective tissue disease (1 source) Pain in bilateral legs; Translations: [Pain in right leg] 04-08-2025 Episodic Other diseases of kidney and ureters (16 sources) Renal impairment; Translations: [Disorder of kidney and ureter, unspecified] 04-25-2022 Episodic Other diseases of kidney and ureters (4 sources) Disorder of kidney and ureter, unspecified; Translations: [Unspecified disorder of kidney and ureter] Episodic Other endocrine disorders (3 sources) Hypoglycemia; Translations: [Hypoglycemia, unspecified] 01-27-2024 Chronic Other endocrine disorders (2 sources) Hypoglycemia, unspecified; Translations: [Hypoglycemia, unspecified] Onset: 02-05-2024 02-02-2024 Chronic Other gastrointestinal disorders (14 sources) Diarrhea; Translations: [Diarrhea, unspecified] 09-08-2022 Episodic Other gastrointestinal disorders (6 sources) Constipation, unspecified; Translations: [Constipation, unspecified] 12-05-2022 Episodic Other gastrointestinal disorders (1 source) Swelling; Translations: [Other intra-abdominal and pelvic swelling, mass and lump] 05-17-2023 Episodic Other hereditary and degenerative nervous system conditions (7 sources) Impaired cognition; Translations: [Mild cognitive impairment, so stated] 05-22-2024 Chronic Other hereditary and degenerative nervous system conditions (1 source) Mild cognitive impairment, so stated; Translations: [Mild cognitive impairment] Onset: 02-24-2025 Chronic Other liver diseases (2 sources) Liver mass; Translations: [Hepatomegaly, not elsewhere classified] Episodic Other lower respiratory disease (7 sources) Dyspnea; Translations: [Dyspnea, unspecified] Episodic Other male genital disorders (1 source) Spermatocele; Translations: [Spermatocele of epididymis, unspecified] 07-07-2023 Episodic Other nervous system disorders (20 sources) Disorder of right femoral nerve; Translations: [Lesion of femoral nerve, right lower limb] Onset: 01-02-2024 12-22-2023 Chronic Other nervous system disorders (1 source) Metabolic encephalopathy; Translations: [Metabolic encephalopathy] 02-01-2024 Chronic Other nervous system disorders (2 sources) Metabolic encephalopathy; Translations: [Metabolic encephalopathy] Onset: 02-05-2024 02-02-2024 Chronic Other nervous system disorders (1 source) Other chronic pain; Translations: [Chronic pain of both knees] Onset: 08-22-2024 Chronic Other nervous system disorders (5 sources) Impaired insight; Translations: [Other symptoms and signs involving cognitive functions and awareness] 11-29-2024 Episodic Other nervous system disorders (1 source) Abnormal gait; Translations: [Unspecified abnormalities of gait and mobility] 04-03-2025 Episodic Other nervous system disorders (1 source) Unspecified abnormalities of gait and mobility; Translations: [Neurologic gait dysfunction] Onset: 04-03-2025 Episodic Other non-traumatic joint disorders (2 sources) Disorder of hip joint; Translations: [Other specific joint derangements of left hip, not elsewhere classified] Chronic Other non-traumatic joint disorders (8 sources) Hip pain; Translations: [Pain in left hip] Episodic Other non-traumatic joint disorders (2 sources) Pain in right hip; Translations: [Bilateral hip pain] Onset: 10-18-2024 Episodic Other non-traumatic joint disorders (2 sources) Pain in left hip; Translations: [Bilateral hip pain] Onset: 10-18-2024 Episodic Other nutritional; endocrine; and metabolic disorders (4 sources) Secondary systemic amyloidosis; Translations: [Other amyloidosis] Chronic Pancreatic disorders (not diabetes) (17 sources) Exocrine pancreatic insufficiency; Translations: [Exocrine pancreatic insufficiency] 12-05-2022 Episodic Phlebitis; thrombophlebitis and thromboembolism (1 source) H/O: Deep vein thrombosis; Translations: [Personal history of other venous thrombosis and embolism] 04-16-2025 Episodic Pulmonary heart disease (20 sources) Chronic pulmonary embolism; Translations: [Chronic pulmonary embolism] Onset: 11-16-2023 11-16-2023 Chronic Residual codes; unclassified (20 sources) History of autologous bone marrow transplant; Translations: [Bone marrow transplant status] 06-07-2023 Chronic Residual codes; unclassified (4 sources) H/O: tissue/organ recipient; Translations: [Stem cells transplant status] 07-10-2023 Chronic Residual codes; unclassified (8 sources) REM sleep behavior disorder; Translations: [REM sleep behavior disorder] 11-19-2024 Chronic Residual codes; unclassified (1 source) Restlessness and agitation; Translations: [Restlessness and agitation] Onset: 05-27-2025 Chronic Residual codes; unclassified (1 source) REM sleep behavior disorder; Translations: [REM sleep behavior disorder] Onset: 02-24-2025 Chronic Residual codes; unclassified (18 sources) Confusional state; Translations: [Disorientation, unspecified] 04-25-2022 Episodic Residual codes; unclassified (6 sources) Disorientation, unspecified; Translations: [Unspecified psychosis] Episodic Residual codes; unclassified (11 sources) Edema of right lower limb; Translations: [Localized edema] 12-16-2022 Episodic Residual codes; unclassified (4 sources) Altered mental status; Translations: [Altered mental status, unspecified] 03-07-2024 Episodic Residual codes; unclassified (5 sources) Amnesia; Translations: [Other amnesia] 05-22-2024 Episodic Spondylosis; intervertebral disc disorders; other back problems (18 sources) Spasm of back muscles; Translations: [Muscle spasm of back] Onset: 02-26-2025 09-18-2024 Episodic Transient cerebral ischemia (20 sources) Transient cerebral ischemia; Translations: [Transient cerebral ischemic attack, unspecified] Chronic Unclassified (1 source) Acidosis, unspecified; Translations: [Acidosis, unspecified] Onset: 02-02-2024 Unclassified (1 source) 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); Translations: [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)] Onset: 05-01-2025 Unclassified (1 source) 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); Translations: [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)] Onset: 05-27-2025 Past or Other Problems Problem Classification Problem Date Documented Da te Episodic/Chronic Acute and unspecified renal failure (20 sources) Acute injury of kidney; Translations: [Acute kidney failure, unspecified] Onset: 3 06-14-2023 Episodic Anxiety disorders (6 sources) Feeling irritable; Translations: [Irritability and anger] Onset: 5 11-29-2024 Episodic Blindness and vision defects (20 sources) Blurring of visual image; Translations: [Other visual disturbances] Onset: 3 Episodic Coagulation and hemorrhagic disorders (20 sources) Thrombocytopenic disorder; Translations: [Thrombocytopenia, unspecified] Onset: 3 Resolved: 4 01-16-2023 Chronic Deficiency and other anemia (20 sources) Pancytopenia; Translations: [Other pancytopenia] Resolved: 3 06-07-2023 Chronic E Codes: Adverse effects of medical drugs (3 sources) Adverse reaction to drug; Translations: [Adverse effect of unspecified drugs, medicaments and biological substances, initial encounter] Onset: 4 02-01-2024 Episodic Fever of unknown origin (2 sources) Fever presenting with conditions classified elsewhere; Translations: [Fever, unspecified] Onset: 4 Episodic Fluid and electrolyte disorders (20 sources) Dehydration; Translations: [Dehydration] Onset: 4 Episodic Influenza (5 sources) Influenza due to Influenza A virus; Translations: [Influenza due to other identified influenza virus with other respiratory manifestations] Onset: 4 01-31-2024 Episodic Neoplasms of unspecified nature or uncertain behavior (20 sources) Monoclonal gammopathy (clinical); Translations: [Monoclonal gammopathy] Onset: 2 Resolved: 3 Chronic Non-Hodgkin`s lymphoma (16 sources) History of multiple myeloma; Translations: [Personal history of other malignant neoplasms of lymphoid, hematopoietic and related tissues] Onset: 4 01-16-2023 Episodic Nonspecific chest pain (6 sources) Chest pain; Translations: [Chest pain, unspecified] Onset: 4 01-16-2023 Episodic Other connective tissue disease (20 sources) Pain of right thigh; Translations: [Pain in right thigh] Onset: 4 11-17-2023 Episodic Other connective tissue disease (20 sources) Muscle pain; Translations: [Myalgia, unspecified site] Onset: 4 11-17-2023 Episodic Other connective tissue disease (20 sources) Other symptoms and signs involving the musculoskeletal system; Translations: [Other musculoskeletal symptoms referable to limbs] Onset: 4 12-22-2023 Episodic Other gastrointestinal disorders (7 sources) Diarrhea, unspecified; Translations: [Diarrhea] Onset: 4 Episodic Other gastrointestinal disorders (20 sources) Constipation; Translations: [Constipation, unspecified] Onset: 3 Resolved: 3 12-05-2022 Episodic Other hematologic conditions (20 sources) H/O: blood disorder; Translations: [Personal history of diseases of the blood and blood-forming organs and certain disorders involving the immune mechanism] Onset: 3 03-30-2023 Episodic Other lower respiratory disease (1 source) Dyspnea, unspecified; Translations: [Dyspnea, unspecified] Onset: 4 Episodic Other nervous system disorders (1 source) Other symptoms and signs involving cognitive functions and awareness; Translations: [Impaired insight] Onset: 5 Episodic Other non-traumatic joint disorders (3 sources) Pain in right knee; Translations: [Pain in joint, lower leg] Onset: 4 08-22-2024 Episodic Other non-traumatic joint disorders (1 source) Pain in left knee; Translations: [Chronic pain of both knees] Onset: 4 Episodic Other screening for suspected conditions (not mental disorders or infectious disease) (7 sources) CT of pelvis abnormal; Translations: [Abnormal findings on diagnostic imaging of other abdominal regions, including retroperitoneum] Onset: 5 Episodic Pulmonary heart disease (20 sources) Pulmonary embolism; Translations: [Other 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 acute cor pulmonale] Onset: 4 01-16-2023 Episodic Residual codes; unclassified (20 sources) Insomnia; Translations: [Insomnia, unspecified] Onset: 3 Episodic Residual codes; unclassified (1 source) Postoperative state; Translations: [Other specified postprocedural states] Onset: 5 Resolved: 5 05-26-2025 Episodic Residual codes; unclassified (1 source) Other amnesia; Translations: [Memory loss] Onset: 5 Episodic Unclassified (2 sources) Patient encounter status 04-16-2025 Results Test Name Value Interpretation Reference Range Facility [id number] 05-26-2025 [id number] HNO ID: [id number] Author: BRITTNY MATUTE RN Service: ? 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 Normal [facility] Basic metabolic 2000 panelon 05-26-2025 Anion gap [Moles/Vol] 10 mmol/L Normal 8-15 [facility] Comment on above: Order Comment: Jessica cesar Type: BLOOD SPECIMENOrdering Facility: [facility] Address: [address] [place] [address] Performed By: #### 2 4321-2 ####MARINE LABORATORYCLIA [id number] [place] [address] [place] Calcium [Mass/Vol] 8.2 mg/dL Low 8.5-10.2 [facility] Comment on above: Order Comment: Jessica cesar Type: BLOOD SPECIMENOrdering Facility: [facility] Address: [address] [place] [address] Performed By: #### 2 4321-2 ####LEONARD LABORATORYCLIA [id number] [place] [address] [place] Chloride [Moles/Vol] 108 mmol/L High 98-107 [facility] Comment on above: Order Comment: Specperi men Type: BLOOD SPECIMENOrdering Facility: [facility] Address: [address] [place] [address] Performed By: #### 2 4321-2 ####LEONARD LABORATORYCLIA [id number] [place] [address] [place] CO2 [Moles/Vol] 22 mmol/L Normal 22-30 [facility] Comment on above: Order Comment: Speci men Type: BLOOD SPECIMENOrdering Facility: [facility] Address: [address] [place] [address] Performed By: #### 2 4321-2 ####LEONARD LABORATORYCLIA [id number] [address] [place] Creatinine [Mass/Vol] 0.99 mg/dL Normal 0.73-1.22 [facility] Comment on above: Order Comment: Speci men Type: BLOOD SPECIMENOrdering Facility: [facility] Address: [address] [place] [address] Performed By: #### 2 4321-2 ####LEONARD LABORATORYCLIA [id number] [address] eGFRcr SerPlBld CKD-EPI 2020 80 mL/min/1.73m??? Normal >=60 [facility] Comment on above: Order Comment: Jessica tali Type: BLOOD SPECIMENOrdering Facility: [facility] Address: [address] [place] [address] Result Comment: Ct mated Glomerular Filtration Rate (eGFR) is calculated using the 2020 CKD-EPI creatinine equation. This equation utilizes serum creatinine, sex, and age as parameters. The creatinine assay has traceable calibration to isotope dilution-mass spectrometry. Refer to KDIGO guidelines for clinical interpretation. In patients with unstable renal function, e.g. those with acute kidney injury, the eGFR may not accurately reflect actual GFR. Performed By: #### 2 4321-2 ####LEONARD LABORATORYCLIA [id number] [place] [id number] [place] Glucose [Mass/Vol] 130 mg/dL High 74-99 [facility] Comment on above: Order Comment: Speci men Type: BLOOD SPECIMENOrdering Facility: [facility] Address: [address] [place], [place] [id number] Result Comment: The [place] Diabetes Association (ADA) provides guidance for cutoff values for fasting glucose and random glucose. The ADA defines fasting as no caloric intake for at least 8 hours. Fasting plasma glucose results between 100 to 125 mg/dL indicate increased risk for diabetes (prediabetes). Fasting plasma glucose results greater than or equal to 126 mg/dL meet the criteria for diagnosis of diabetes. In the absence of unequivocal hyperglycemia, results should be confirmed by repeat testing. In a patient with classic symptoms of hyperglycemia or hyperglycemic crisis, random plasma glucose results greater than or equal to 200 mg/dL meet the criteria for diagnosis of diabetes. Reference: Standards of Medical Care in Diabetes 2016, [place] Diabetes Association. Diabetes Care. 2016.39(Suppl 1). Performed By: #### 2 4321-2 ####LEONARD LABORATORYCLIA [id number] [place] [address] [place] Potassium [Moles/Vol] 3.9 mmol/L Normal 3.7-5.1 [facility] Comment on above: Order Comment: Jessica tali Type: BLOOD SPECIMENOrdering Facility: [facility] Address: [address] [place] [address] Performed By: #### 2 4321-2 ####LEONARD LABORATORYCLIA [id number] [place] [id number] [place] Sodium [Moles/Vol] 140 mmol/L Normal 136-144 [facility] Comment on above: Order Comment: Homeroi men Type: BLOOD SPECIMENOrdering Facility: [facility] Address: [address] [place] [address] Performed By: #### 2 4321-2 ####LEONARD LABORATORYCLIA [id number] [place] [id number] [place] Urea nitrogen [Mass/Vol] 18 mg/dL Normal 9-24 [facility] Comment on above: Order Comment: Homeroi men Type: BLOOD SPECIMENOrdering Facility: [facility] Address: [address] [place] [address] Performed By: #### 2 4321-2 ####LEONARD LABORATORYCLIA [id number] [address] CBC panel Auto (Bld)on 05-26 Erythrocyte distribution width (RBC) [Ratio] 15.9 % High 11.5-15.0 [facility] Comment on above: Order Comment: Speci men Type: BLOOD SPECIMENOrdering Facility: [facility] Address: [address] [place] [address] Performed By: #### 5 8410-2 ####LEONARD LABORATORYCLIA [id number] [address] Hematocrit (Bld) [Volume fraction] 27.8 % Low 39.0-51.0 [facility] Comment on above: Order Comment: Speci men Type: BLOOD SPECIMENOrdering Facility: [facility] Address: [address] [place] [address] Performed By: #### 5 8410-2 ####LEONARD LABORATORYCLIA [id number] [address] Hemoglobin (Bld) [Mass/Vol] 9.0 g/dL Low 13.0-17.0 [facility] Comment on above: Order Comment: Speci men Type: BLOOD SPECIMENOrdering Facility: [facility] Address: [address] [place] [address] Performed By: #### 5 8410-2 ####LEONARD LABORATORYCLIA [id number] [address] MCH (RBC) [Entitic mass] 31.4 pg Normal 26.0-34.0 [facility] Comment on above: Order Comment: Speci men Type: BLOOD SPECIMENOrdering Facility: [facility] Address: [address] [place] [address] Performed By: #### 5 8410-2 ####LEONARD LABORATORYCLIA [id number] [address] MCHC (RBC) [Mass/Vol] 32.4 g/dL Normal 30.5-36.0 [facility] Comment on above: Order Comment: Speci men Type: BLOOD SPECIMENOrdering Facility: [facility] Address: [address] [place] [address] Performed By: #### 5 8410-2 ####LEONARD LABORATORYCLIA [id number] [place] [address] [place] MCV (RBC) [Entitic vol] 96.9 fL Normal 80.0-100.0 [facility] Comment on above: Order Comment: Speci men Type: BLOOD SPECIMENOrdering Facility: [facility] Address: [address] [place] [address] Performed By: #### 5 8410-2 ####LEONARD LABORATORYCLIA [id number] [address] [place] Nucleated RBC (Bld) [#/Vol] 10*3/uL Normal <0.01 [facility] Comment on above: Order Comment: Speci men Type: BLOOD SPECIMENOrdering Facility: [facility] Address: [address] [place] [address] Performed By: #### 5 8410-2 ####LEONARD LABORATORYCLIA [id number] [place] [address] [place] Platelet mean volume (Bld) [Entitic vol] 10.2 fL Normal 9.0-12.7 [facility] Comment on above: Order Comment: Speci men Type: BLOOD SPECIMENOrdering Facility: [facility] Address: [address] [place] [address] Performed By: #### 5 8410-2 ####LEONARD LABORATORYCLIA [id number] [address] [place] Platelets (Bld) [#/Vol] 122 10*3/uL Low 150-400 [facility] Comment on above: Order Comment: Speci men Type: BLOOD SPECIMENOrdering Facility: [facility] Address: [address] [place] [address] Performed By: #### 5 8410-2 ####LEONARD LABORATORYCLIA [id number] [place] [address] [place] RBC (Bld) [#/Vol] 2.87 10*6/uL Low 4.20-6.00 [facility] Comment on above: Order Comment: Jessica cesar Type: BLOOD SPECIMENOrdering Facility: [facility] Address: [address] [place] [address] Performed By: #### 5 8410-2 ####LEONARD LABORATORYCLIA [id number] [address] WBC (Bld) [#/Vol] 5.08 10*3/uL Normal 3.70-11.00 [facility] Comment on above: Order Comment: Jessica tali Type: BLOOD SPECIMENOrdering Facility: [facility] Address: [address] [place] [address] Performed By: #### 5 8410-2 ####LEONARD LABORATORYCLIA [id number] [address] CNDSon 05-26-2025 CNDS HNO ID: [id number] Author: GAIL ROCK MD Service: Orthopaedic Surgery Author Type: Physician Spray Pilot Type: Discharge Summary Filed: 05/27/2025 10:53 Note Text: -------- Attestation signed by Gail Rock MD at 05/27/2025 10:53 AM Agree with above -------- DISCHARGE SUMMARY PATIENT NAME: Oseas Joseph ADMISSION DATE: 05/22/2025 DISCHARGE DATE: 05/26/2025 PATIENT DISCHARGE SUMMARY C O N F I D E N T I A L I N F O R M A T I O N The following is a brief overview of your hospitalization. Some of the information contained on this summary may be confidential. This information should be kept in your records and should be shared with your regular doctor. These instructions explain what you or your care program director need to do to continue your care at home or at another healthcare facility Please go over these instructions with your nurse and care program director. If you are not sure about something, please ask. -------- Highest Readmission Risk Score: 9 The 30 day readmissions risk score is derived from an internally validated risk model which evaluates patient level characteristics, utilization history, medication orders and lab results up until the day of discharge. Patients with a score of 39 or above are considered highest risk for readmission. Specific patient level drivers will be listed at the bottom of the summary. The 30 day readmissions risk score is derived from an internally validated risk model which evaluates patient level characteristics, utilization history, medication orders and lab results up until the day of discharge. Patients with a score of 40 or above are considered highest risk for readmission. Where I Will be Going after Discharge: [facility]irement Facility My Condition at Discharge: Stable PRINCIPAL DIAGNOSIS: (Reason after study for this admission): Procedure(s): ROBOTIC ASSISTED TOTAL HIP ARTHROPLASTY OTHER DIAGNOSES: Patient Active Hospital Problem List: Post-operative state Date Noted: 05/23/2025 S/P total right hip arthroplasty Date Noted: 05/23/2025 OPERATIONS PERFORMED: Procedure(s): ROBOTIC ASSISTED TOTAL HIP ARTHROPLASTY My Doctors and Medical Team: My Main Hospital Doctor: Gail Guy MD PHYSICAL EXAM: See daily progress note Vitals: BP 155/70 Pulse 61 Temp 36.7 ?C (98.1 ?F) (Oral) Resp 16 Ht 185.4 cm (6' 0.99) Wt 79 kg (174 lb 2.6 oz) SpO2 98% BMI 22.98 kg/m? SUMMARY OF WHAT HAPPENED WHILE PATIENT WAS IN THE HOSPITAL: The patient was followed by Dr. Rock in clinic for right hip osteoarthritis. It was determined the patient would benefit from right total hip arthroplasty. The procedure, its risks, benefits, and potential complications were discussed in detail prior to surgery. The patient conveyed understanding of all topics and consented to surgery. The patient was admitted to the hospital. Underwent an elective right total hip arthroplasty on 05/22/[address] Rock. The patient tolerated the procedure well and was returned to the Post Anesthesia Care Unit in stable condition. Vital signs per PACU protocol. VTE risk assessment performed. O2 therapy monitored by Respiratory Therapy to include incentive spirometry, ADL, wound and support per physician order set postop protocol. PT and OT to evaluate and treat. IV antibiotics, antiemetics, DVT prophylaxis and pain medication were given. The patient progressed with physical therapy. Lab values and vital signs were monitored and remained stable. The incision remained clean, dry and intact. Thigh and calf are not swollen. No signs of DVT or infection. The patient progressed with physical therapy towards goal of safety and independence. Patient was determined safe for discharge to SNF on 05/26/2025. TREATMENT / WOUND CARE: If you have any concerns about your wound, please contact the office. Keep wound and incision area clean and dry. You may remove your dressing on POD #7-10 (7 to 10 days after surgery). If it remains drainage-free, you may leave the dressing off, keeping the wound open to air. If there is any drainage please contact the office You may not submerge the wound under standing water for 6 weeks time after surgery (i.e. no baths, no hot tubs, no swimming pools). Do not rub the wound, but rather pat dry. If you have non-absorbable sutures in place, these will be taken out on your 1st follow-up appointment. Observe the wound for signs of infection, including increased redness, swelling, or persistent drainage around the incision site. It is normal for your wound to be warmer immediately after surgery (even up to 4-6 weeks after surgery). If you begin to experience fev (more content not included)... Normal [facility] THERAPY NTon 05-26-2025 THERAPY NT HNO ID: [id number] Author: NENA BUNDY PTA Service: Physical Therapy Author Type: Hotel Operations Manager Type: Therapy (PT/OT/Speech/Resp) Filed: 05/26/2025 11:51 Note Text: -------- Attestation signed by Arron Sands, PT at 05/26/2025 1:55 PM I reviewed and agree with the documentation corresponding to this therapy visit. SIGNATURE: Arron Sands, HUMBERTO DATE: May 26, 2025 TIME: 1:55 PM -------- -------- Summary: PT Treat -------- Physical Therapy Treatment Summary SERVICE DATE: 05/26/2025 SERVICE TIME: 1037 to 1121 ROOM: [place] [address] PT 6 Clicks Score: 17 Total Joint Replacement Discharge Readiness: Not Applicable DISCHARGE RECOMMENDATIONS Subacute/SNF Recommended Discharge Disposition Due to: Functional deficits requiring ongoing therapy service prior to discharge home., Patient requires daily (5x/week) skilled therapy at next level of care., Balance deficits, Functional status decline, Requires multiple therapy disciplines Anticipated Discharge Needs: Physical Assist at Home, Supervision at Home Physical Assist at Home for: Transfers, Finances, Ambulation, Cleaning, Laundry, Meals, Medication Management, Stairs, Safety, Self Care, Shopping, Transportation (Initially recommend SNF) Supervision at Home due to: Decreased safety awareness, Impaired cognition Recommended Discharge Equipment: Wheeled Walker (if home going) ASSESSMENT Response to Therapy Interventions: Cognitive Deficits, Good Participation in Activities, Needs Frequent Redirection or Reinstruction, Pain, Requires Additional Time to Complete Activities, Slow Progression with Functional Activities/Skills pt tolerated session well. per family pt having a hard day today. pt able to ambulate into hallwa. pt did better with remembering which LE to lead with. still requrires increased cues for WB and AD magement. continue to recommend SNF PRECAUTIONS Bed/Chair Alarm, Fall Risk, Lines/Tubes/Drains Right Lower Extremity Weight Bearing Status: 50% PWB CURRENT HOSPITAL COURSE post ROBOTIC ASSISTED TOTAL HIP ARTHROPLASTY (Right) Relevant Past Medical History: Alzheimer's disease, Lewy body dementia, Malignant melanoma, Mixed hyperlipidemia, Multiple myeloma not having achieved remission, hyperlipidemia, primary hypertension, Pulmonary embolism, Right bundle branch block, Type 2 diabetes mellitus HOME LIVING Patient Lives With: Spouse Assistance Available: 24-Hour Entry To Home: Stairs, With Rail Number Of Stairs Into Home: 3 Number Of Stairs To Bed/Bath: 0 Tub/Shower Type: walk in with seat Laundry: spouse to complete Equipment Owned: Walker- Standard, Grab Bars- Shower, Shower Chair PRIOR FUNCTIONAL LEVEL Within Functional Limits Pt and spouse report independence with ADLs, spouse completes IADLs, not driving, 1 fall in last 6 months, sleeps in flat bed, no device prior to surgery, completd medication management SUBJECTIVE Pt agreeable to PAT okay per RN to see THERAPY DIAGNOSIS Reduced mobility-other, Difficulty walking-musculoskeletal, Unsteadiness on feet TREATMENT INTERVENTIONS Therapeutic Activity (32777), Gait Training (13129) Timed Code Treatment (minutes): 44 Skilled Treatment Time (minutes): 44 Therapeutic Activity (34236) Treatment Minutes: 30 $ Therapeutic Activity (58078) Billed Units: 2 units Gait Training (08298) Treatment Minutes: 14 $ Gait Training (52140) Billed Units: 1 unit TRAINING AND EDUCATION PROVIDED Advanced Balance Activities, Anatomy and Impact on Deficits, Assistive Device Use, Bed Mobility, Benefits of In-Hospital Mobility, Discharge Planning, Disease Specific Education, Equipment, Exercise Program, Expected Functional Level, Falls Prevention, Gait Pattern, Reduction of Deviations, Positioning, Precautions/Restrictions , Role of Physical Therapy, Standing Balance, Transfers, Treatment Protocol THERAPEUTIC SKILLS USED Activity Dosing, Assessment of Tolerance Including Vitals Response to Activity, Cues for Sequencing/Proper Technique for Activity, Cuing Tactile, Cuing Verbal, Cuing Visual, Family Training, Movement Facilitation, Muscle Activation Facilitation, Physical Assist, Postural Alignment Correction, Proprioceptive Input FUNCTIONAL STATUS Bed Mobility Supine To Sit: Additional Information Pt sitting EOB with and PCNA. after using BSC Sit to Supine: Additional Information OOB in chair at end of session Scooting: Contact Guard Assistance Transfers Sit To Stand: Minimal Assistance, Additional Information x2 stands. from EOB and BSC. cues for hand placement, RLE placement and increased cues for WB/ hip precautions Abraham (more content not included)... Normal [facility] Basic metabolic 2000 panelon 05-25-2025 Anion gap [Moles/Vol] 7 mmol/L Low 8-15 [facility] Comment on above: Order Comment: Speci men Type: BLOOD SPECIMENOrdering Facility: [facility] Address: [address] [place] [address] Performed By: #### 2 4321-2 ####MARINE LABORATORYCLIA [id number] [place] [address] [place] Calcium [Mass/Vol] 8.0 mg/dL Low 8.5-10.2 [facility] Comment on above: Order Comment: Speci men Type: BLOOD SPECIMENOrdering Facility: [facility] Address: [address] [place] [address] Performed By: #### 2 4321-2 ####MARINE LABORATORYCLIA [id number] [place] [address] [place] Chloride [Moles/Vol] 107 mmol/L Normal 98-107 [facility] Comment on above: Order Comment: Speci men Type: BLOOD SPECIMENOrdering Facility: [facility] Address: [address] [place] [address] Performed By: #### 2 4321-2 ####LEONARD LABORATORYCLIA [id number] [place] [address] [place] CO2 [Moles/Vol] 24 mmol/L Normal 22-30 [facility] Comment on above: Order Comment: Homeroi men Type: BLOOD SPECIMENOrdering Facility: [facility] Address: [address] [place] [address] Performed By: #### 2 4321-2 ####LEONARD LABORATORYCLIA [id number] [address] [place] Creatinine [Mass/Vol] 1.09 mg/dL Normal 0.73-1.22 [facility] Comment on above: Order Comment: Jessica men Type: BLOOD SPECIMENOrdering Facility: [facility] Address: [address] [place] [address] Performed By: #### 2 4321-2 ####MARINE LABORATORYCLIA [id number] [address] eGFRcr SerPlBld CKD-EPI 2020 72 mL/min/1.73m??? Normal >=60 [facility] Comment on above: Order Comment: Speci men Type: BLOOD SPECIMENOrdering Facility: [facility] Address: [address] [place] [address] Result Comment: Ct mated Glomerular Filtration Rate (eGFR) is calculated using the 2020 CKD-EPI creatinine equation. This equation utilizes serum creatinine, sex, and age as parameters. The creatinine assay has traceable calibration to isotope dilution-mass spectrometry. Refer to KDIGO guidelines for clinical interpretation. In patients with unstable renal function, e.g. those with acute kidney injury, the eGFR may not accurately reflect actual GFR. Performed By: #### 2 4321-2 ####LEONARD LABORATORYCLIA [id number] [place] [id number] [place] Glucose [Mass/Vol] 50 mg/dL Low 74-99 [facility] Comment on above: Order Comment: Jessica tali Type: BLOOD SPECIMENOrdering Facility: [facility] Address: [address] [place] [address] Result Comment: The [place] Diabetes [employer] (ADA) provides guidance for cutoff values for fasting glucose and random glucose. The ADA defines fasting as no caloric intake for at least 8 hours. Fasting plasma glucose results between 100 to 125 mg/dL indicate increased risk for diabetes (prediabetes). Fasting plasma glucose results greater than or equal to 126 mg/dL meet the criteria for diagnosis of diabetes. In the absence of unequivocal hyperglycemia, results should be confirmed by repeat testing. In a patient with classic symptoms of hyperglycemia or hyperglycemic crisis, random plasma glucose results greater than or equal to 200 mg/dL meet the criteria for diagnosis of diabetes. Reference: Standards of Medical Care in Diabetes 2016, [place] Diabetes Association. Diabetes Care. 2016.39(Suppl 1). Performed By: #### 2 4321-2 ####LEONARD LABORATORYCLIA [id number] [place] [address] [place] Potassium [Moles/Vol] 3.9 mmol/L Normal 3.7-5.1 [facility] Comment on above: Order Comment: Speci men Type: BLOOD SPECIMENOrdering Facility: [facility] Address: [address] [place] [address] Performed By: #### 2 4321-2 ####LEONARD LABORATORYCLIA [id number] [place] [address] [place] Sodium [Moles/Vol] 138 mmol/L Normal 136-144 [facility] Comment on above: Order Comment: Homeroi men Type: BLOOD SPECIMENOrdering Facility: [facility] Address: [address] [place] [address] Performed By: #### 2 4321-2 ####LEONARD LABORATORYCLIA [id number] [place] [address] [place] Urea nitrogen [Mass/Vol] 16 mg/dL Normal 9-24 [facility] Comment on above: Order Comment: Speci men Type: BLOOD SPECIMENOrdering Facility: [facility] Address: [address] [place] [address] Performed By: #### 2 4321-2 ####LEONARD LABORATORYCLIA [id number] [place] [address] [place] CBC panel Auto (Bld)on 05-25 Erythrocyte distribution width (RBC) [Ratio] 16.2 % High 11.5-15.0 [facility] Comment on above: Order Comment: Speci men Type: BLOOD SPECIMENOrdering Facility: [facility] Address: [address] [place] [address] Performed By: #### 5 8410-2 ####LEONARD LABORATORYCLIA [id number] [address] Hematocrit (Bld) [Volume fraction] 27.5 % Low 39.0-51.0 [facility] Comment on above: Order Comment: Speci men Type: BLOOD SPECIMENOrdering Facility: [facility] Address: [address] [place] [address] Performed By: #### 5 8410-2 ####LEONARD LABORATORYCLIA [id number] [address] Hemoglobin (Bld) [Mass/Vol] 8.8 g/dL Low 13.0-17.0 [facility] Comment on above: Order Comment: Speci men Type: BLOOD SPECIMENOrdering Facility: [facility] Address: [address] [place] [address] Performed By: #### 5 8410-2 ####LEONARD LABORATORYCLIA [id number] [address] MCH (RBC) [Entitic mass] 31.3 pg Normal 26.0-34.0 [facility] Comment on above: Order Comment: Speci men Type: BLOOD SPECIMENOrdering Facility: [facility] Address: [address] [place] [address] Performed By: #### 5 8410-2 ####LEONARD LABORATORYCLIA [id number] [address] MCHC (RBC) [Mass/Vol] 32.0 g/dL Normal 30.5-36.0 [facility] Comment on above: Order Comment: Speci men Type: BLOOD SPECIMENOrdering Facility: [facility] Address: [address] [place] [address] Performed By: #### 5 8410-2 ####LEONARD LABORATORYCLIA [id number] [place] [address] [place] MCV (RBC) [Entitic vol] 97.9 fL Normal 80.0-100.0 [facility] Comment on above: Order Comment: Speci men Type: BLOOD SPECIMENOrdering Facility: [facility] Address: [facility] [place] [address] Performed By: #### 5 8410-2 ####LEONARD LABORATORYCLIA [id number] [place] [address] [place] Nucleated RBC (Bld) [#/Vol] 10*3/uL Normal <0.01 [facility] Comment on above: Order Comment: Speci men Type: BLOOD SPECIMENOrdering Facility: [facility] Address: [address] [place] [address] Performed By: #### 5 8410-2 ####LEONARD LABORATORYCLIA [id number] [address] [place] Platelet mean volume (Bld) [Entitic vol] 9.4 fL Normal 9.0-12.7 [facility] Comment on above: Order Comment: Speci men Type: BLOOD SPECIMENOrdering Facility: [facility] Address: [address] [place] [address] Performed By: #### 5 8410-2 ####LEONARD LABORATORYCLIA [id number] [place] [address] [place] Platelets (Bld) [#/Vol] 103 10*3/uL Low 150-400 [facility] Comment on above: Order Comment: Speci men Type: BLOOD SPECIMENOrdering Facility: [facility] Address: [address] [place] [address] Performed By: #### 5 8410-2 ####LEONARD LABORATORYCLIA [id number] [place] [address] [place] RBC (Bld) [#/Vol] 2.81 10*6/uL Low 4.20-6.00 [facility] Comment on above: Order Comment: Speci men Type: BLOOD SPECIMENOrdering Facility: [facility] Address: [address] [place] [address] Performed By: #### 5 8410-2 ####LEONARD LABORATORYCLIA [id number] [place] [address] [facility] [place] WBC (Bld) [#/Vol] 5.36 10*3/uL Normal 3.70-11.00 [facility] Comment on above: Order Comment: Speci men Type: BLOOD SPECIMENOrdering Facility: [facility] Address: [address] [place] [address] Performed By: #### 5 8410-2 ####LEONARD LABORATORYCLIA [id number] [place] [address] [facility] [place] THERAPY NTon 05-25-2025 THERAPY NT HNO ID: [id number] Author: NENA BUNDY PTA Service: Physical Therapy Author Type: Hotel Operations Manager Type: Therapy (PT/OT/Speech/Resp) Filed: 05/25/2025 12:10 Note Text: -------- Attestation signed by Arron Sands, PT at 05/26/2025 9:07 AM I reviewed and agree with the documentation corresponding to this therapy visit. SIGNATURE: Arron Sands, PT DATE: May 26, 2025 TIME: 9:07 AM -------- -------- Summary: PT Treat -------- Physical Therapy Treatment Summary SERVICE DATE: 05/25/2025 SERVICE TIME: 1128 to 1151 ROOM: [id number] PT 6 Clicks Score: 17 Total Joint Replacement Discharge Readiness: Not Applicable DISCHARGE RECOMMENDATIONS Subacute/SNF Recommended Discharge Disposition Due to: Functional deficits requiring ongoing therapy service prior to discharge home., Patient requires daily (5x/week) skilled therapy at next level of care., Balance deficits, Functional status decline, Requires multiple therapy disciplines Anticipated Discharge Needs: Physical Assist at Home, Supervision at Home Physical Assist at Home for: Transfers, Finances, Ambulation, Cleaning, Laundry, Meals, Medication Management, Stairs, Safety, Self Care, Shopping, Transportation (Initially recommend SNF) Supervision at Home due to: Decreased safety awareness, Impaired cognition Recommended Discharge Equipment: Wheeled Walker (if home going) ASSESSMENT Response to Therapy Interventions: Cognitive Deficits, Good Participation in Activities, Needs Frequent Redirection or Reinstruction, Pain, Requires Additional Time to Complete Activities, Slow Progression with Functional Activities/Skills pt tolerated session well. pt able to progress ambulation. pt is starting to remember gait sequencing more but still requires max cues for WB and AD placement. continue to recommend SNF PRECAUTIONS Bed/Chair Alarm, Fall Risk, Lines/Tubes/Drains Right Lower Extremity Weight Bearing Status: 50% PWB CURRENT HOSPITAL COURSE post ROBOTIC ASSISTED TOTAL HIP ARTHROPLASTY (Right) Relevant Past Medical History: Alzheimer's disease, Lewy body dementia, Malignant melanoma, Mixed hyperlipidemia, Multiple myeloma not having achieved remission, hyperlipidemia, primary hypertension, Pulmonary embolism, Right bundle branch block, Type 2 diabetes mellitus HOME LIVING Patient Lives With: Spouse Assistance Available: 24-Hour Entry To Home: Stairs, With Rail Number Of Stairs Into Home: 3 Number Of Stairs To Bed/Bath: 0 Tub/Shower Type: walk in with seat Laundry: spouse to complete Equipment Owned: Walker- Standard, Grab Bars- Shower, Shower Chair PRIOR FUNCTIONAL LEVEL Within Functional Limits Pt and spouse report independence with ADLs, spouse completes IADLs, not driving, 1 fall in last 6 months, sleeps in flat bed, no device prior to surgery, completd medication management SUBJECTIVE Pt and family agreeable to PT okay per RN to see THERAPY DIAGNOSIS Reduced mobility-other, Difficulty walking-musculoskeletal, Unsteadiness on feet TREATMENT INTERVENTIONS Therapeutic Activity (49660), Gait Training (93497) Timed Code Treatment (minutes): 23 Skilled Treatment Time (minutes): 23 Therapeutic Activity (70449) Treatment Minutes: 10 $ Therapeutic Activity (87639) Billed Units: 1 unit Gait Training (14397) Treatment Minutes: 13 $ Gait Training (94994) Billed Units: 1 unit TRAINING AND EDUCATION PROVIDED Advanced Balance Activities, Anatomy and Impact on Deficits, Assistive Device Use, Bed Mobility, Benefits of In-Hospital Mobility, Discharge Planning, Disease Specific Education, Equipment, Exercise Program, Expected Functional Level, Falls Prevention, Gait Pattern, Reduction of Deviations, Positioning, Precautions/Restrictions , Role of Physical Therapy, Standing Balance, Transfers, Treatment Protocol THERAPEUTIC SKILLS USED Activity Dosing, Assessment of Tolerance Including Vitals Response to Activity, Cues for Sequencing/Proper Technique for Activity, Cuing Tactile, Cuing Verbal, Cuing Visual, Family Training, Movement Facilitation, Muscle Activation Facilitation, Physical Assist, Postural Alignment Correction, Proprioceptive Input FUNCTIONAL STATUS Bed Mobility Supine To Sit: Additional Information, Minimal Assistance HOB elevated. cues for hip precautions. assist with RLE towards EOB. increased cues and time to complete Sit to Supine: Additional Information OOB in chair at end of session Scooting: Contact Guard Assistance Transfers Sit To Stand: Minimal Assistance, Additional Information cues for hand placement, RLE placement and assist with stands. Stand To Sit: Min (more content not included)... Normal [facility] Basic metabolic 2000 panelon 05-24-2025 Anion gap [Moles/Vol] 7 mmol/L Low 8-15 [facility] Comment on above: Order Comment: Speci men Type: BLOOD SPECIMENOrdering Facility: [facility] Address: [address] [address] Performed By: #### 2 4321-2 ####MARINE LABORATORYCLIA [id number] [place] [address] [place] Calcium [Mass/Vol] 7.9 mg/dL Low 8.5-10.2 [facility] Comment on above: Order Comment: Speci men Type: BLOOD SPECIMENOrdering Facility: [facility] Address: [address] [place] [address] Performed By: #### 2 4321-2 ####LEONARD LABORATORYCLIA [id number] [address] [place] Chloride [Moles/Vol] 106 mmol/L Normal 98-107 [facility] Comment on above: Order Comment: Speci men Type: BLOOD SPECIMENOrdering Facility: [facility] Address: [address] [place] [address] Performed By: #### 2 4321-2 ####LEONARD LABORATORYCLIA [id number] [place] [address] [place] CO2 [Moles/Vol] 22 mmol/L Normal 22-30 [facility] Comment on above: Order Comment: Speci men Type: BLOOD SPECIMENOrdering Facility: [facility] Address: [address] [place] [address] Performed By: #### 2 4321-2 ####LEONARD LABORATORYCLIA [id number] [address] [place] Creatinine [Mass/Vol] 1.12 mg/dL Normal 0.73-1.22 [facility] Comment on above: Order Comment: Speci men Type: BLOOD SPECIMENOrdering Facility: [facility] Address: [address] [place] [address] Performed By: #### 2 4321-2 ####LEONARD LABORATORYCLIA [id number] [address] [place] eGFRcr SerPlBld CKD-EPI 2020 69 mL/min/1.73m??? Normal >=60 [facility] Comment on above: Order Comment: Speci men Type: BLOOD SPECIMENOrdering Facility: [facility] Address: [address] [place] [address] Result Comment: Ct mated Glomerular Filtration Rate (eGFR) is calculated using the 2020 CKD-EPI creatinine equation. This equation utilizes serum creatinine, sex, and age as parameters. The creatinine assay has traceable calibration to isotope dilution-mass spectrometry. Refer to KDIGO guidelines for clinical interpretation. In patients with unstable renal function, e.g. those with acute kidney injury, the eGFR may not accurately reflect actual GFR. Performed By: #### 2 4321-2 ####LEONARD LABORATORYCLIA [id number] [place] [address] [place] Glucose [Mass/Vol] 66 mg/dL Low 74-99 [facility] Comment on above: Order Comment: Jessica cesar Type: BLOOD SPECIMENOrdering Facility: [facility] Address: [address] [place] [address] Result Comment: The [place] Diabetes Association (ADA) provides guidance for cutoff values for fasting glucose and random glucose. The ADA defines fasting as no caloric intake for at least 8 hours. Fasting plasma glucose results between 100 to 125 mg/dL indicate increased risk for diabetes (prediabetes). Fasting plasma glucose results greater than or equal to 126 mg/dL meet the criteria for diagnosis of diabetes. In the absence of unequivocal hyperglycemia, results should be confirmed by repeat testing. In a patient with classic symptoms of hyperglycemia or hyperglycemic crisis, random plasma glucose results greater than or equal to 200 mg/dL meet the criteria for diagnosis of diabetes. Reference: Standards of Medical Care in Diabetes 2016, [place] [employer]. Diabetes Care. 2016.39(Suppl 1). Performed By: #### 2 4321-2 ####MARINE LABORATORYCLIA [id number] [place] [address] [place] Potassium [Moles/Vol] 3.9 mmol/L Normal 3.7-5.1 [facility] Comment on above: Order Comment: Jessica cesar Type: BLOOD SPECIMENOrdering Facility: [facility] Address: [address] [place] [address] Performed By: #### 2 4321-2 ####LEONARD LABORATORYCLIA [id number] [place] [id number] [place] Sodium [Moles/Vol] 135 mmol/L Low 136-144 [facility] Comment on above: Order Comment: Jessica cesar Type: BLOOD SPECIMENOrdering Facility: [facility] Address: [address] [place] [address] Performed By: #### 2 4321-2 ####LEONARD LABORATORYCLIA [id number] [address] [place] [facility] Urea nitrogen [Mass/Vol] 19 mg/dL Normal 9-24 [facility] Comment on above: Order Comment: Speci men Type: BLOOD SPECIMENOrdering Facility: [facility] Address: [address] [place] [address] Performed By: #### 2 4321-2 ####LEONARD LABORATORYCLIA [id number] [address] [place] CBC panel Auto (Bld)on 05-24 Erythrocyte distribution width (RBC) [Ratio] 16.3 % High 11.5-15.0 [facility] Comment on above: Order Comment: Speci men Type: BLOOD SPECIMENOrdering Facility: [facility] Address: [address] [place] [address] Performed By: #### 5 8410-2 ####LEOANRD LABORATORYCLIA [id number] [address] [place] Hematocrit (Bld) [Volume fraction] 29.1 % Low 39.0-51.0 [facility] Comment on above: Order Comment: Speci men Type: BLOOD SPECIMENOrdering Facility: [facility] Address: [address] [place] [address] Performed By: #### 5 8410-2 ####LEONARD LABORATORYCLIA [id number] [address] [place] Hemoglobin (Bld) [Mass/Vol] 9.4 g/dL Low 13.0-17.0 [facility] Comment on above: Order Comment: Speci men Type: BLOOD SPECIMENOrdering Facility: [facility] Address: [address] [place] [address] Performed By: #### 5 8410-2 ####LEONARD LABORATORYCLIA [id number] [address] MCH (RBC) [Entitic mass] 31.8 pg Normal 26.0-34.0 [facility] Comment on above: Order Comment: Speci men Type: BLOOD SPECIMENOrdering Facility: [facility] Address: [address] [place] [address] Performed By: #### 5 8410-2 ####LEONARD LABORATORYCLIA [id number] [address] [place] MCHC (RBC) [Mass/Vol] 32.3 g/dL Normal 30.5-36.0 [facility] Comment on above: Order Comment: Speci men Type: BLOOD SPECIMENOrdering Facility: [facility] Address: [address] [place] [address] Performed By: #### 5 8410-2 ####LEONARD LABORATORYCLIA [id number] [address] [place] MCV (RBC) [Entitic vol] 98.3 fL Normal 80.0-100.0 [facility] Comment on above: Order Comment: Speci men Type: BLOOD SPECIMENOrdering Facility: [facility] Address: [address] [place] [address] Performed By: #### 5 8410-2 ####LEONARD LABORATORYCLIA [id number] [address] [place] Nucleated RBC (Bld) [#/Vol] 10*3/uL Normal <0.01 [facility] Comment on above: Order Comment: Speci men Type: BLOOD SPECIMENOrdering Facility: [facility] Address: [address] [place] [address] Performed By: #### 5 8410-2 ####LEONARD LABORATORYCLIA [id number] [address] [place] Platelet mean volume (Bld) [Entitic vol] 9.7 fL Normal 9.0-12.7 [facility] Comment on above: Order Comment: Speci men Type: BLOOD SPECIMENOrdering Facility: [facility] Address: [address] [place] [address] Performed By: #### 5 8410-2 ####LEONARD LABORATORYCLIA [id number] [address] [place] Platelets (Bld) [#/Vol] 110 10*3/uL Low 150-400 [facility] Comment on above: Order Comment: Speci men Type: BLOOD SPECIMENOrdering Facility: [facility] Address: [address] [place] [address] Performed By: #### 5 8410-2 ####LEONARD LABORATORYCLIA [id number] [place] [id number] [facility] RBC (Bld) [#/Vol] 2.96 10*6/uL Low 4.20-6.00 [facility] Comment on above: Order Comment: Speci men Type: BLOOD SPECIMENOrdering Facility: [facility] Address: [address] [place] [id number] Performed By: #### 5 8410-2 ####LEONARD LABORATORYCLIA [id number] [place] [id number] [facility] WBC (Bld) [#/Vol] 5.13 10*3/uL Normal 3.70-11.00 [facility] Comment on above: Order Comment: Speci men Type: BLOOD SPECIMENOrdering Facility: [facility] Address: [address] [place] [address] Performed By: #### 5 8410-2 ####LEONARD LABORATORYCLIA [id number] [place] [id number] [facility] THERAPY NTon 05-24-2025 THERAPY NT HNO ID: [id number] Author: NENA BUNDY PTA Service: Physical Therapy Author Type: Hotel Operations Manager Type: Therapy (PT/OT/Speech/Resp) Filed: 05/24/2025 10:19 Note Text: -------- Attestation signed by Arron Sands, PT at 05/26/2025 9:07 AM I reviewed and agree with the documentation corresponding to this therapy visit. SIGNATURE: Arron Sands, PT DATE: May 26, 2025 TIME: 9:07 AM -------- -------- Summary: PT Treat -------- Physical Therapy Treatment Summary SERVICE DATE: 05/24/2025 SERVICE TIME: 931 to 1005 ROOM: [id number] PT 6 Clicks Score: 16 Total Joint Replacement Discharge Readiness: Not Applicable DISCHARGE RECOMMENDATIONS Subacute/SNF Recommended Discharge Disposition Due to: Functional deficits requiring ongoing therapy service prior to discharge home., Patient requires daily (5x/week) skilled therapy at next level of care., Balance deficits, Functional status decline, Requires multiple therapy disciplines Anticipated Discharge Needs: Physical Assist at Home, Supervision at Home Physical Assist at Home for: Transfers, Finances, Ambulation, Cleaning, Laundry, Meals, Medication Management, Stairs, Safety, Self Care, Shopping, Transportation (Initially recommend SNF) Supervision at Home due to: Decreased safety awareness, Impaired cognition Recommended Discharge Equipment: Wheeled Walker (if home going) ASSESSMENT Response to Therapy Interventions: Cognitive Deficits, Good Participation in Activities, Needs Frequent Redirection or Reinstruction, Pain, Requires Additional Time to Complete Activities, Slow Progression with Functional Activities/Skills pt tolerated session well. pt pleasent throughout session. pt able to progress ambulation but requires max verbal and tactile cues to ambulate. pt unable to maintain WB and continue to recommend SNF at this time PRECAUTIONS Bed/Chair Alarm, Fall Risk, Lines/Tubes/Drains Right Lower Extremity Weight Bearing Status: 50% PWB CURRENT HOSPITAL COURSE post ROBOTIC ASSISTED TOTAL HIP ARTHROPLASTY (Right) Relevant Past Medical History: Alzheimer's disease, Lewy body dementia, Malignant melanoma, Mixed hyperlipidemia, Multiple myeloma not having achieved remission, hyperlipidemia, primary hypertension, Pulmonary embolism, Right bundle branch block, Type 2 diabetes mellitus HOME LIVING Patient Lives With: Spouse Assistance Available: 24-Hour Entry To Home: Stairs, With Rail Number Of Stairs Into Home: 3 Number Of Stairs To Bed/Bath: 0 Tub/Shower Type: walk in with seat Laundry: spouse to complete Equipment Owned: Walker- Standard, Grab Bars- Shower, Shower Chair PRIOR FUNCTIONAL LEVEL Within Functional Limits Pt and spouse report independence with ADLs, spouse completes IADLs, not driving, 1 fall in last 6 months, sleeps in flat bed, no device prior to surgery, completd medication management SUBJECTIVE Pt agreeable to PT Okay per RN to see THERAPY DIAGNOSIS Reduced mobility-other, Difficulty walking-musculoskeletal, Unsteadiness on feet TREATMENT INTERVENTIONS Therapeutic Activity (37797), Gait Training (58902) Timed Code Treatment (minutes): 34 Skilled Treatment Time (minutes): 34 Therapeutic Activity (20337) Treatment Minutes: 14 $ Therapeutic Activity (90223) Billed Units: 1 unit Gait Training (67941) Treatment Minutes: 20 $ Gait Training (99364) Billed Units: 1 unit TRAINING AND EDUCATION PROVIDED Advanced Balance Activities, Anatomy and Impact on Deficits, Assistive Device Use, Bed Mobility, Benefits of In-Hospital Mobility, Discharge Planning, Disease Specific Education, Equipment, Exercise Program, Expected Functional Level, Falls Prevention, Gait Pattern, Reduction of Deviations, Positioning, Precautions/Restrictions , Role of Physical Therapy, Standing Balance, Transfers, Treatment Protocol THERAPEUTIC SKILLS USED Activity Dosing, Assessment of Tolerance Including Vitals Response to Activity, Cues for Sequencing/Proper Technique for Activity, Cuing Tactile, Cuing Verbal, Cuing Visual, Family Training, Movement Facilitation, Muscle Activation Facilitation, Physical Assist, Postural Alignment Correction, Proprioceptive Input FUNCTIONAL STATUS Bed Mobility Supine To Sit: Additional Information OOB in chair at start of session Sit to Supine: Additional Information OOB in chair at end of session Scooting: Contact Guard Assistance Transfers Sit To Stand: Moderate Assistance, Additional Information Mod from Low chair height. cues for RLE placement, Hand placement and review of WB. pt unable to maintian WB duirng stand Stand To Sit: Minimal Assistance, (more content not included)... Normal [facility] THERAPY NT HNO ID: [id number] Author: LACY RODRIGUEZ OTR/Sania Service: Occupational Therapy Author Type: Occupational Therapist Type: Therapy (PT/OT/Speech/Resp) Filed: 05/24/2025 09:05 Note Text: -------- Summary: OT eval -------- Occupational Therapy Evaluation Summary SERVICE DATE: 05/24/2025 SERVICE TIME: 752 ROOM: [place] [address] OT 6 Clicks Score: 16 DISCHARGE RECOMMENDATIONS Subacute/SNF Recommended Discharge Disposition Due to: Functional deficits requiring ongoing therapy service prior to discharge home., Patient requires daily (5x/week) skilled therapy at next level of care., ADL impairment, Anticipated community discharge, Functional status decline, Requires multiple therapy disciplines Anticipated Discharge Needs: Physical Assist at Home, Supervision at Home Physical Assist at Home for: Transfers, Finances, Ambulation, Cleaning, Laundry, Meals, Medication Management, Stairs, Safety, Self Care, Shopping, Transportation (Initially recommend SNF) Supervision at Home due to: Decreased safety awareness, Impaired cognition ASSESSMENT Response to Therapy Interventions: Cognitive Deficits, Good Participation in Activities, Needs Frequent Redirection or Reinstruction, Requires Additional Time to Complete Activities PRECAUTIONS Bed/Chair Alarm, Fall Risk, Lines/Tubes/Drains Right Lower Extremity Weight Bearing Status: 50% PWB CURRENT HOSPITAL COURSE post ROBOTIC ASSISTED TOTAL HIP ARTHROPLASTY (Right) Relevant Past Medical History: Alzheimer's disease, Lewy body dementia, Malignant melanoma, Mixed hyperlipidemia, Multiple myeloma not having achieved remission, hyperlipidemia, primary hypertension, Pulmonary embolism, Right bundle branch block, Type 2 diabetes mellitus HOME LIVING Patient Lives With: Spouse Assistance Available: 24-Hour Entry To Home: Stairs, With Rail Number Of Stairs Into Home: 3 Number Of Stairs To Bed/Bath: 0 Tub/Shower Type: walk in with seat Laundry: spouse to complete Equipment Owned: Walker- Standard, Grab Bars- Shower, Shower Chair PRIOR FUNCTIONAL LEVEL Within Functional Limits Pt and spouse report independence with ADLs, spouse completes IADLs, not driving, 1 fall in last 6 months, sleeps in flat bed, no device prior to surgery, completd medication management SUBJECTIVE Patient cleared by nursing supine in bed with family present agreeable to OT COGNITION Orientation Deficits: Confused, Not oriented to Time, Not oriented to Situation Responsiveness: Alert, Awake Follows Commands: Cueing Needed Cueing to Follow Commands: Moderate Attention Deficits: Distractible THERAPY DIAGNOSIS Reduced mobility-other, Decreased activities of daily living (ADL), General symptoms and signs-other, Unsteadiness on feet, Signs and Symptoms Involving Cognitive Functions and Awareness TREATMENT INTERVENTIONS Evaluation, Therapeutic Activity (12003), Self Detention Management (40593) Timed Code Treatment (minutes): 30 Skilled Treatment Time (minutes): 45 TRAINING AND EDUCATION PROVIDED Activity Adaptation/Compensatory Strategies, Adaptive Equipment/DME, Assistive Device Use, Bed Mobility, Benefits of In-Hospital Mobility, Cognitive Stimulation Activities, Command Following, Discharge Planning, Disease Specific Education, Functional Mobility Involving ADLs, Grooming Tasks, Lower Extremity Dressing, Lower Extremity Bathing, Positioning, Precautions/Restrictions , Role of Occupational Therapy, Safety/Judgment, Standing Balance to Improve Iron with ADLs/Self-Care, Transfer - Bed to Chair, Transfer - Sit to Stand THERAPEUTIC SKILLS USED Activity Dosing, Assessment of Tolerance Including Vitals Response to Activity, Cues for Sequencing/Proper Technique for Activity, Cuing Tactile, Cuing Verbal, Physical Assist, Management of Critical Lines, Tubes and/or Drains FUNCTIONAL STATUS Activities of Daily Living Assist Level Additional Information Feeding Independent Grooming Minimal Assistance Bathing Upper Body Contact Guard Assistance, Additional Information per clinical judgement seated Bathing Lower Body Maximal Assistance, Additional Information due to hip precautions, educated on DME and adaptive equipment Dressing Upper Body Minimal Assistance Dressing Lower Body Maximal Assistance, Additional Information due to hip precautions. Educated patient and family on adaptive equipment Toileting Maximal Assistance, Additional Information Mobility Assist Level Additional Information Bed Mobility Supine To Sit: Moderate Assistance, Additional Information HOB elevated cues for technique and hip precautions Sit to Stand Moderate Assistance, Additional Information EOB to walker completed times 2 with cues for technique with asisst positioning right LE with tendancy to have knee flex (more content not included)... Normal [facility] Basic metabolic 2000 panelon 05-23-2025 Anion gap [Moles/Vol] 10 mmol/L Normal 8-15 [facility] Comment on above: Order Comment: Speci men Type: BLOOD SPECIMENOrdering Facility: [facility] Address: [address] [place] [address] Performed By: #### 2 4321-2 ####MARINE LABORATORYCLIA [id number] [place] [address] [place] Calcium [Mass/Vol] 8.2 mg/dL Low 8.5-10.2 [facility] Comment on above: Order Comment: Speci men Type: BLOOD SPECIMENOrdering Facility: [facility] Address: [address] [place] [address] Performed By: #### 2 4321-2 ####MARINE LABORATORYCLIA [id number] [place] [address] [place] Chloride [Moles/Vol] 108 mmol/L High 98-107 [facility] Comment on above: Order Comment: Speci men Type: BLOOD SPECIMENOrdering Facility: [facility] Address: [address] [place] [address] Performed By: #### 2 4321-2 ####LEONARD LABORATORYCLIA [id number] [place] [address] [place] CO2 [Moles/Vol] 19 mmol/L Low 22-30 [facility] Comment on above: Order Comment: Speci men Type: BLOOD SPECIMENOrdering Facility: [facility] Address: [address] [place] [address] Performed By: #### 2 4321-2 ####LEONARD LABORATORYCLIA [id number] [place] [address] [place] Creatinine [Mass/Vol] 1.24 mg/dL High 0.73-1.22 [facility] Comment on above: Order Comment: Speci men Type: BLOOD SPECIMENOrdering Facility: [facility] Address: [address] [place] [address] Performed By: #### 2 4321-2 ####LEONARD LABORATORYCLIA [id number] [place] [address] [place] eGFRcr SerPlBld CKD-EPI 2020 61 mL/min/1.73m??? Normal >=60 [facility] Comment on above: Order Comment: Jessica cesar Type: BLOOD SPECIMENOrdering Facility: [facility] Address: [address] [place] [address] Result Comment: Ct mated Glomerular Filtration Rate (eGFR) is calculated using the 2020 CKD-EPI creatinine equation. This equation utilizes serum creatinine, sex, and age as parameters. The creatinine assay has traceable calibration to isotope dilution-mass spectrometry. Refer to KDIGO guidelines for clinical interpretation. In patients with unstable renal function, e.g. those with acute kidney injury, the eGFR may not accurately reflect actual GFR. Performed By: #### 2 4321-2 ####LEONARD LABORATORYCLIA [id number] [place] [id number] [place] Glucose [Mass/Vol] 118 mg/dL High 74-99 [facility] Comment on above: Order Comment: Jessica cesar Type: BLOOD SPECIMENOrdering Facility: [facility] Address: [address] [place] [address] Result Comment: The [place] Diabetes Association (ADA) provides guidance for cutoff values for fasting glucose and random glucose. The ADA defines fasting as no caloric intake for at least 8 hours. Fasting plasma glucose results between 100 to 125 mg/dL indicate increased risk for diabetes (prediabetes). Fasting plasma glucose results greater than or equal to 126 mg/dL meet the criteria for diagnosis of diabetes. In the absence of unequivocal hyperglycemia, results should be confirmed by repeat testing. In a patient with classic symptoms of hyperglycemia or hyperglycemic crisis, random plasma glucose results greater than or equal to 200 mg/dL meet the criteria for diagnosis of diabetes. Reference: Standards of Medical Care in Diabetes 2016, [place] Diabetes Association. Diabetes Care. 2016.39(Suppl 1). Performed By: #### 2 4321-2 ####LEONARD LABORATORYCLIA [id number] [place] [address] [place] Potassium [Moles/Vol] 4.3 mmol/L Normal 3.7-5.1 [facility] Comment on above: Order Comment: Homeroi men Type: BLOOD SPECIMENOrdering Facility: [facility] Address: [address] [place] [address] Performed By: #### 2 4321-2 ####LEONARD LABORATORYCLIA [id number] [address] [place] Sodium [Moles/Vol] 137 mmol/L Normal 136-144 [facility] Comment on above: Order Comment: Homeroi men Type: BLOOD SPECIMENOrdering Facility: [facility] Address: [address] [place] [address] Performed By: #### 2 4321-2 ####MARINE LABORATORYCLIA [id number] [address] [place] Urea nitrogen [Mass/Vol] 22 mg/dL Normal 9-24 [facility] Comment on above: Order Comment: Jessica men Type: BLOOD SPECIMENOrdering Facility: [facility] Address: [address] [place] [address] Performed By: #### 2 4321-2 ####LEONARD LABORATORYCLIA [id number] [address] [place] C diff Tox gens Stl Ql KEVIN+p robeon 05-23-2025 C. difficile toxin genes KEVIN+probe Ql (Stl) Negative Normal Negative for C. difficile toxin by PCR [facility] Comment on above: Order Comment: Jessica cesar Type: STOOL SPECIMENOrdering Facility: [facility] Address: [address] [place] [address] Performed By: #### 5 4067-4 ####[facility] LABCLIA [id number] [address] [place] THERAPY NTon 05-23-2025 THERAPY NT HNO ID: [id number] Author: NENA BUNDY PTA Service: Physical Therapy Author Type: Hotel Operations Manager Type: Therapy (PT/OT/Speech/Resp) Filed: 05/23/2025 16:15 Note Text: -------- Attestation signed by Zahida Chacon PT, DPT at 05/23/2025 5:04 PM I reviewed and agree with the documentation corresponding to this therapy visit. SIGNATURE: Zahida Chacon PT, DPT DATE: May 23, 2025 TIME: 5:04 PM -------- -------- Summary: PT Treat -------- Physical Therapy Treatment Summary SERVICE DATE: 05/23/2025 SERVICE TIME: 1450 to 1535 ROOM: [id number] PT 6 Clicks Score: 17 Total Joint Replacement Discharge Readiness: Pending Physical Therapy Clearance DISCHARGE RECOMMENDATIONS Subacute/SNF Recommended Discharge Disposition Due to: Functional deficits requiring ongoing therapy service prior to discharge home., Patient requires daily (5x/week) skilled therapy at next level of care., Balance deficits, Functional status decline, Requires multiple therapy disciplines Recommended Discharge Equipment: Wheeled Walker (if home going) ASSESSMENT Response to Therapy Interventions: Cognitive Deficits, Good Participation in Activities, Needs Frequent Redirection or Reinstruction, Pain, Requires Additional Time to Complete Activities, Slow Progression with Functional Activities/Skills pt tolerated session well. pt with increased cues and education needed for safety. pt able to progress ambulation but unable to maintain WB for more than 5 steps. continue to recommend SNF PRECAUTIONS Fall Risk, Lines/Tubes/Drains, Posterior Hip Precautions, Weight Bearing Restrictions Right Lower Extremity Weight Bearing Status: 50% PWB CURRENT HOSPITAL COURSE post ROBOTIC ASSISTED TOTAL HIP ARTHROPLASTY (Right) Relevant Past Medical History: Alzheimer's disease, Lewy body dementia, Malignant melanoma, Mixed hyperlipidemia, Multiple myeloma not having achieved remission, hyperlipidemia, primary hypertension, Pulmonary embolism, Right bundle branch block, Type 2 diabetes mellitus HOME LIVING Patient Lives With: Spouse Assistance Available: 24-Hour Entry To Home: Stairs, With Rail Number Of Stairs Into Home: 3 Number Of Stairs To Bed/Bath: 0 Tub/Shower Type: walk in Laundry: spouse to complete Equipment Owned: Walker- Standard, Grab Bars- Shower, Shower Chair PRIOR FUNCTIONAL LEVEL Within Functional Limits Pt and spouse report independence with ADLs, spouse completes IADLs, not driving, 1 fall in last 6 months, sleeps in flat bed SUBJECTIVE Pt agreeable to PT okay per RN to see THERAPY DIAGNOSIS Reduced mobility-other, Difficulty walking-musculoskeletal, Unsteadiness on feet TREATMENT INTERVENTIONS Therapeutic Activity (52993), Gait Training (88628) Timed Code Treatment (minutes): 45 Skilled Treatment Time (minutes): 45 Therapeutic Activity (44267) Treatment Minutes: 20 $ Therapeutic Activity (40242) Billed Units: 1 unit Gait Training (62999) Treatment Minutes: 25 $ Gait Training (91667) Billed Units: 2 units TRAINING AND EDUCATION PROVIDED Advanced Balance Activities, Anatomy and Impact on Deficits, Assistive Device Use, Bed Mobility, Benefits of In-Hospital Mobility, Discharge Planning, Disease Specific Education, Equipment, Exercise Program, Expected Functional Level, Falls Prevention, Gait Pattern, Reduction of Deviations, Positioning, Precautions/Restrictions , Role of Physical Therapy, Standing Balance, Transfers, Treatment Protocol THERAPEUTIC SKILLS USED Activity Dosing, Assessment of Tolerance Including Vitals Response to Activity, Cues for Sequencing/Proper Technique for Activity, Cuing Tactile, Cuing Verbal, Cuing Visual, Family Training, Movement Facilitation, Muscle Activation Facilitation, Physical Assist, Postural Alignment Correction, Proprioceptive Input FUNCTIONAL STATUS Bed Mobility Supine To Sit: Minimal Assistance HOB eleveated. assist with BLE towards EOB. review of WB and hip precautions Sit to Supine: Minimal Assistance assist with trunk and operative LE management, HOB flat Scooting: Contact Guard Assistance Transfers Sit To Stand: Minimal Assistance, Additional Information increased review of WB with pt and . max cues for sequencing, hand placement and RLE placement Stand To Sit: Minimal Assistance, Additional Information Cues for safe approach to surface, proper hand and operative LE positioning and controlled descent to sit Bed to Chair Gait Minimal Assistance max cues for sequencing and WB. taticle cues also given to assist pt with step sequencing. increased assist with FWW. increased time to complete due to amount (more content not included)... [facility] THERAPY NT HNO ID: [id number] Author: KELLIE TORRES OT/L Service: Occupational Therapy Author Type: Occupational Therapist Type: Therapy (PT/OT/Speech/Resp) Filed: 05/23/2025 13:43 Note Text: -------- Summary: OT missed visit -------- OCCUPATIONAL THERAPY MISSED VISIT SERVICE DATE: 05/23/2025 SERVICE TIME: 1340 ROOM: [place] [address] Patient not seen due to Clinical Appropriateness. Family member exiting patient's room requested therapy to hold at this time as patient just fell asleep. RN notified of plan to hold per family request. Will re-attempt as schedule allows. SIGNATURE: LISSETTE Miller PATIENT NAME: Oseas Joseph DATE: May 23, 2025 TIME: 1:42 PM [facility] THERAPY NT HNO ID: [id number] Author: KELLIE TORRES OT/L Service: Occupational Therapy Author Type: Occupational Therapist Type: Therapy (PT/OT/Speech/Resp) Filed: 05/23/2025 11:53 Note Text: -------- Summary: OT missed visit -------- OCCUPATIONAL THERAPY MISSED VISIT SERVICE DATE: 05/23/2025 SERVICE TIME: 1135 ROOM: [place] [address] Patient not seen due to Patient Not Available (patient's spouse requested for OT to allow patient to eat lunch at this time). Will re-attempt as schedule allows. SIGNATURE: LISSETTE Miller PATIENT NAME: Oseas Joseph DATE: May 23, 2025 TIME: 11:53 AM Normal [facility] Urinalysis complete panel (U )on 05-23-2025 Bacteria LM.HPF (Urine sed) [#/Area] Few Abnormal None Seen [facility] Comment on above: Order Comment: Speci men Type: URINE SPECIMENOrdering Facility: [facility] Address: [address] [place] [address] Performed By: #### 2 4356-8 ####MARINE LABORATORYCLIA [id number] [place] [address] [place] Bilirubin Ql (U) Negative Normal Negative [facility] Comment on above: Order Comment: Speci men Type: URINE SPECIMENOrdering Facility: [facility] Address: [address] [place] [address] Performed By: #### 2 4356-8 ####LEONARD LABORATORYCLIA [id number] [address] Clarity (Unsp spec) Clear Normal Clear [facility] Comment on above: Order Comment: Speci men Type: URINE SPECIMENOrdering Facility: [facility] Address: [address] [place] [address] Performed By: #### 2 4356-8 ####LEONARD LABORATORYCLIA [id number] [address] Color (U) Yellow Normal Yellow [facility] Comment on above: Order Comment: Speci men Type: URINE SPECIMENOrdering Facility: [facility] Address: [address] [place] [address] Performed By: #### 2 4356-8 ####LEONARD LABORATORYCLIA [id number] [address] Epithelial cells LM.HPF (Urine sed) [#/Area] Few Normal [facility] Comment on above: Order Comment: Speci men Type: URINE SPECIMENOrdering Facility: [facility] Address: [address] [place] [address] Performed By: #### 2 4356-8 ####LEONARD LABORATORYCLIA [id number] [address] Glucose Test strip (U) [Mass/Vol] Trace Abnormal Negative [facility] Comment on above: Order Comment: Speci men Type: URINE SPECIMENOrdering Facility: [facility] Address: [address] [place] [address] Performed By: #### 2 4356-8 ####LEONARD LABORATORYCLIA [id number] [address] Hemoglobin Ql (U) Negative Normal Negative [facility] Comment on above: Order Comment: Speci men Type: URINE SPECIMENOrdering Facility: [facility] Address: [address] [place] [address] Performed By: #### 2 4356-8 ####LEONARD LABORATORYCLIA [id number] [address] [place] Hyaline casts (Urine sed) [#/Area] 4-10 /LPF Abnormal 0 /LPF [facility] Comment on above: Order Comment: Speci men Type: URINE SPECIMENOrdering Facility: [facility] Address: [address] [place] [address] Performed By: #### 2 4356-8 ####LEONARD LABORATORYCLIA [id number] [place] [address] [place] Ketones Ql (U) Negative Normal Negative [facility] Comment on above: Order Comment: Speci men Type: URINE SPECIMENOrdering Facility: [facility] Address: [address] [place] [address] Performed By: #### 2 4356-8 ####LEONARD LABORATORYCLIA [id number] [place] [address] [place] Leukocyte esterase Test strip Ql (U) Negative Normal Negative [facility] Comment on above: Order Comment: Speci men Type: URINE SPECIMENOrdering Facility: [facility] Address: [address] [place] [address] Performed By: #### 2 4356-8 ####LEONARD LABORATORYCLIA [id number] [place] [address] [place] Nitrite Ql (U) Negative Normal Negative [facility] Comment on above: Order Comment: Speci men Type: URINE SPECIMENOrdering Facility: [facility] Address: [address] [place] [address] Performed By: #### 2 4356-8 ####LEONARD LABORATORYCLIA [id number] [place] [address] [place] pH (U) 6.0 [pH] Normal 5.0-8.0 [facility] Comment on above: Order Comment: Speci men Type: URINE SPECIMENOrdering Facility: [facility] Address: [address] [place] [address] Performed By: #### 2 4356-8 ####LEONARD LABORATORYCLIA [id number] [place] [address] [place] Protein (U) [Mass/Vol] Negative Normal Negative [facility] Comment on above: Order Comment: Speci men Type: URINE SPECIMENOrdering Facility: [facility] Address: [address] [place] [address] Performed By: #### 2 4356-8 ####LEONARD LABORATORYCLIA [id number] [address] [place] [facility] RBC LM.HPF (Urine sed) [#/Area] 0-3 /HPF Normal 0-3 /HPF [facility] Comment on above: Order Comment: Speci men Type: URINE SPECIMENOrdering Facility: [facility] Address: [address] [place] [address] Performed By: #### 2 4356-8 ####LEONARD LABORATORYCLIA [id number] [address] Specific gravity (U) [Rel density] 1.025 Normal 1.005-1.030 [facility] Comment on above: Order Comment: Speci men Type: URINE SPECIMENOrdering Facility: [facility] Address: [address] [place] [address] Performed By: #### 2 4356-8 ####LEONARD LABORATORYCLIA [id number] [address] Urobilinogen Ql (U) 0.2 EU/dL Normal 0.2-1.0 EU/dL [facility] Comment on above: Order Comment: Speci men Type: URINE SPECIMENOrdering Facility: [facility] Address: [address] [place] [address] Performed By: #### 2 4356-8 ####LEONARD LABORATORYCLIA [id number] [address] STATES [facility] WBC LM.HPF (Urine sed) [#/Area] 0-5 /HPF Normal 0-5 /HPF [facility] Comment on above: Order Comment: Speci men Type: URINE SPECIMENOrdering Facility: [facility] Address: [address] [place] [address] Performed By: #### 2 4356-8 ####LEONARD LABORATORYCLIA [id number] [address] OF [place] ANES POSTPROC EVALon 07-31-2 025 ANES POSTPROC EVAL HNO ID: [id number] Author: ANDRY FERRELL MD Service: Anesthesiology Author Type: Anesthesiologist Type: Anesthesia Postprocedure Evaluation Filed: 05/22/2025 11:04 Note Text: POST ANESTHESIA EVALUATION NOTE : 1950 Procedure Summary Date: 05/22/25 Room / [place] [place] Anesthesia Start: 730 Anesthesia Stop: 1010 Procedure: ROBOTIC ASSISTED TOTAL HIP ARTHROPLASTY (Right: Hip) Diagnosis: Primary osteoarthritis of right hip (Primary osteoarthritis of right hip [M16.11]) Surgeons: Gail Rock MD Responsible Provider: Andry Ferrell MD Anesthesia Type: general ASA Status: 3 Anesthesia Type: general Airway Type: ETT Last Vitals Vitals Value Taken Time BP 146/70 05/22/25 1100 Temp 36.5 ?C (97.7 ?F) 05/22/25 1008 Pulse 54 05/22/25 1103 Resp 16 05/22/25 1103 SpO2 95 % 05/22/25 1103 Vitals shown include unfiled device data. Post Anesthesia Patient Status Patient Evaluation: bedside. Anticipated Disposition: inpatient floor planned admission. Neurological Status: aware and responsive. Pulmonary Status: breathing comfortably on room air Airway Control: returned to baseline unsupported. Cardiovascular Status: stable. Pain Management: clinically adequate Postoperative Hydration: acceptable. Intraoperative Events: no significant anesthesia events Post Operative Nausea/Vomiting Status: no significant post operative nausea or vomiting Recommendation: continue current plan of care. Anesthesia Observations No Documentation SIGNATURE: Andry Ferrell MD PATIENT NAME: Oseas Joseph DATE: May 22, 2025 TIME: 11:04 AM CSN: [id number] [facility] ANES PRE-OPon 05-22-2025 ANES PRE-OP HNO ID: [id number] Author: ANDRY FERRELL MD Service: Anesthesiology Author Type: Anesthesiologist Type: Anesthesia Preprocedure Evaluation Filed: 05/22/2025 06:49 Note Text: ANESTHESIOLOGY DAY OF SURGERY NOTE : 1950 Procedure Information Date/Time: 05/22/2530 Procedure: ROBOTIC ASSISTED TOTAL HIP ARTHROPLASTY (Right: Hip) Location: [place] [address] / [place] Surgeons: Gail Rock MD Estimated body mass index is 23.09 kg/m? as calculated from the following: Height as of this encounter: 185.4 cm (6' 1). Weight as of this encounter: 79.4 kg (175 lb). Most recent hematocrit and potassium results: Hematocrit 36.1 05/01/2025 Potassium 3.2 05/01/2025 Relevant Problems CARDIO (+) Chronic 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 acute cor pulmonale (HCC) (+) Primary hypertension (+) Right bundle branch block ENDO (+) Type 2 diabetes mellitus, without long-term current use of insulin (HCC) -RENAL (+) KYE (acute kidney injury) NEURO-PSYCH (+) Personal history of diseases of blood and blood-forming organs I - PHYSICAL EVALUATION AIRWAY Patient intubated: No. Tracheostomy tube not present Mallampati: I. TM distance: >3 FB. Neck ROM: full ROM without neurological symptoms. Mouth opening: adequate. Short neck: no. Thick neck: no DENTAL Normal dental observations. Dental findings: teeth intact and poor dentition. II - ANESTHESIA PLAN ASA Score: 3 Anesthetic Plan: general Airway type: ETT The patient is not a current smoker. NPO Status: adequate Beta Jamaal Monitoring Plan Monitoring plan: standard ASA. Post Procedure Analgesic Plan Postoperative analgesic plan: parenteral or oral opioids and multimodal analgesia. Informed Consent Anesthetic risks, benefits, alternatives, personnel and consent discussed: yes. Patient / Responsible Libertarian agrees to proceed: yes Patient / Surrogate agrees to blood products: blood products not planned DNR status not reviewed with patient and/or family prior to surgery. Significant changes in the patient condition since the History and Physical, not otherwise documented in primary service progress note: no. Potential Anesthesia issues that may suggest increased risk of complications or contraindication to planned procedure: none. Discussed the possibility of lip / dental damage: yes Vitals Value Taken Time BP 179/82 05/22/25626 Pulse Resp 16 05/22/25626 Temp 36.6 ?C (97.9 ?F) 05/22/25626 SpO2 100 % 05/22/25626 Facility-Administered Medications as of 05/22/2025 Medication Dose Route Frequency [COMPLETED] acetaminophen 1,000 mg tab(s) (TYLENOL) 1,000 mg ORAL Pre-Op Once [COMPLETED] celecoxib 200 mg cap(s) (CeleBREX) 200 mg ORAL Pre-Op Once [COMPLETED] oxyCODONE ER 10 mg tab(s) (OxyCONTIN) 10 mg ORAL Pre-Op Once scopolamine (delivers 1 mg over 3 days) 1 patch (TRANSDERM-SCOP) 1 patch TRANSDERMAL ONCE scopolamine - VERIFY patch OTHER q 8 H [START ON 05/23/2025] scopolamine - REMOVE PATCH OTHER ONCE lidocaine (PF) 10 mg/mL (1 %) 1-2 mg injection (XYLOCAINE) 0.1-0.2 mL INTRADERMAL PRN lactated ringers iv infusion 5-30 mL/hr INTRAVENOUS CONTINUOUS NaCl 0.9% iv flush bag 20 mL INTRAVENOUS PRN ceFAZolin iv piggyback 2 g in D5W (iso-osmotic) 100 mL (ANCEF) 2 g INTRAVENOUS Pre-Op Once tranexamic acid (CYKLOKAPRON) in NaCl 0.7% 1,000 mg 100 mL 1,000 mg INTRAVENOUS Pre-Op Once tranexamic acid (CYKLOKAPRON) in NaCl 0.7% 1,000 mg 100 mL 1,000 mg INTRAVENOUS ONCE Outpatient Medications as of 05/22/2025 Medication Sig donepezil (ARICEPT) 10 mg tablet Take 1 tablet by mouth daily with breakfast. acyclovir (ZOVIRAX) 400 mg tablet Take 1 tablet by mouth two times a day. acetaminophen (TYLENOL EXTRA STRENGTH) 500 mg tablet Take 1,000 mg by mouth every 8 hours as needed. cyanocobalamin (VITAMIN B-12) 1,000 mcg tab Take 2,000 mcg by mouth once daily. folic acid 800 mcg tablet Take 400 mcg by mouth once daily. glimepiride (AMARYL) 2 mg tablet Take 1 tablet by mouth daily with breakfast. Take 2 mg twice a day. May increase to 4mg BID if your PCP requests so. clonazePAM (KLONOPIN) 0.5 mg tablet Take 0.5 mg by mouth once daily. atorvastatin (LIPITOR) 10 mg tablet Take 10 mg by mouth once daily. losartan (COZAAR) 50 mg tablet Take 50 mg by mouth once daily. ondansetron (ZOFRAN) 8 mg tablet Take 1 tablet by mouth every 8 hours as needed for nausea/vomiting. (Patient taking differently: Take 8 mg by mouth every 8 hours as needed for nausea/vomiting.) I have interviewed and examined the patient. I have reviewed the medical record and/or the pre-anesthesia evaluation, pertinent labs, and test results. This contains updated information obtained within 48 hours of Surgery/Procedure. SIGNATURE: Andry Ferrell MD PATIENT NAME: Oseas Joseph DATE: May 22, 2025 TIME: 6:48 AM CSN: [id number] [facility] BRIEF OP NOTon 05-22-2025 BRIEF OP NOT HNO ID: [id number] Author: GAIL ROCK MD Service: Orthopaedic Surgery Author Type: Physician Type: Brief Op Note Filed: 05/22/2025 10:17 Note Text: BRIEF OPERATIVE / PROCEDURE NOTE TOTAL HIP ARTHROPLASTY LOG ID: [id number] Surgery/Procedure Date: 05/22/2025 Incision/Procedure Start Time: 8:08 AM Incision Close/Procedure End Time: 9:57 AM Surgeon(s)/Proceduralist (s) and Spray Pilot(s): Surgeons and Role: * Gail Rock MD - Primary Physician Spray Pilot: Nidhi Pat PA-C Registered Nurse Bicycle Ii Assembler: Brenda Lambert RN Procedure(s): Procedure(s) (LRB): ROBOTIC ASSISTED TOTAL HIP ARTHROPLASTY (Right) Anesthesia: General Approach: Posterior Findings: Full notes osteoarticular wear right hip joint Estimated Blood Loss: 50 mls Specimens: Femoral head and acetabular reaming Complications: None Total Joint Arthroplasty (TJA) Surgical Risk Procedure: Primary total Hip replacement Date assessed: risk assessed on 04/16/2025 04/16/2025 TJA Risk Procedure Primary total Hip replacement Estimated Length of Stay (# of days) 2 Chance of NOT Returning Home at Discharge 16.51 30 Day Chance of Readmission 5.36 Closure Technique: Primary Implant: Implant Name Type Inv. Item Serial No. Photogrammetric Compilation Specialist Lot No. LRB No. Used Action SHELL TRIDENT II 56MM F TRITANIUM ACETABULAR 5 SCREW HOLE CLUSTER STERILE - [id number] Joint SHELL TRIDENT II 56MM F TRITANIUM ACETABULAR 5 SCREW HOLE CLUSTER STERILE [facility] [id number] Right 1 Implanted TRIDENT X3 ECCENTRIC 0DEG 36MM SIZE F ID - [id number] Joint TRIDENT X3 ECCENTRIC 0DEG 36MM SIZE F ID CHANDLER [id number] Right 1 Implanted STEM ACCOLADE II 6 127D FEMORAL - [id number] Joint STEM ACCOLADE II 6 127D FEMORAL [facility] [id number] Right 1 Implanted HEAD V40 36MM +5MM OFFSET TAPER BIOLOX DELTA FEMORAL HIP - [id number] Joint - Hip HEAD V40 36MM +5MM OFFSET TAPER BIOLOX DELTA FEMORAL HIP [facility] [id number] Right 1 Implanted Bearing Surface: Ceramic on Poly Fixation: Cementless Pre-Op/Pre-Procedure Diagnosis: Primary osteoarthritis of right hip [M16.11] Post-Op/Post-Procedure Diagnosis: Primary osteoarthritis of right hip [M16.11] Weight Bearing Status: Partial Weight Bearing 50% Patient was accompanied to the next level of care by a licensed practitioner from the surgical team pending completion of this brief op note (or operative note) SIGNATURE: Gail Rock MD PATIENT NAME: Oseas Joseph DATE: May 22, 2025 TIME: 9:49 AM [facility] CONSULTon 05-22-2025 CONSULT HNO ID: [id number] Author: LONDON MARCOS MD Service: General Internal Medicine Author Type: Physician Type: Consults Filed: 05/22/2025 18:21 Note Text: Internal Medicine INITIAL CONSULT NOTE SERVICE DATE: 05/22/2025 REASON FOR CONSULT: Medical Management. REQUESTING PHYSICIAN: Dr. Rock. PRIMARY CARE PHYSICIAN: Connie Lugo MD Subjective Mr. Joseph is a 75 year old male who is s/p Rt THR under GA. Pt is post op, doing well. Pt c/o hip pain, denies any cardiopulmonary symptoms. FUNCTIONAL STATUS: Independent PAST MEDICAL HISTORY Diagnosis Date Alzheimer's disease (HCC) Arthritis Chronic diarrhea Lewy body dementia (HCC) Malignant melanoma (HCC) Mixed hyperlipidemia Multiple myeloma not having achieved remission (HCC) 10/26/2022 Other hyperlipidemia 04/17/2023 Primary hypertension 04/17/2023 Pulmonary embolism (HCC) Right bundle branch block 04/17/2023 Type 2 diabetes mellitus, without long-term current use of insulin (HCC) 04/17/2023 PAST SURGICAL HISTORY Procedure Laterality Date EXTRACTION ERUPTED TOOTH/EXR PAST SURGICAL HISTORY OF Colonoscopy REPAIR INCISIONAL HERNIA,REDUCIBLE 8th grade SKIN BX, 1 LESION 06/2022 STEM CELL (CD34) PC FAMILY HISTORY Problem Relation Age of Onset Diabetes Mother Hypertension Mother Renal Disease Mother Hypertension Father Diabetes Father Hypertension Sister Diabetes Sister No Known Problems Sister No Known Problems Sister No Known Problems Sister No Known Problems Sister Heart Sister Hypertension Brother Diabetes Brother Hyperlipidemia Brother Heart Brother Hypertension Maternal Grandmother Diabetes Maternal Grandmother Colon Cancer Paternal Grandmother Hypertension Paternal Grandfather Anesthesia Problems No Family History Social History Tobacco Use Smoking status: Never Smokeless tobacco: Never Vaping Use Vaping status: Never Used Substance Use Topics Alcohol use: Not Currently Comment: social Drug use: Never potassium chloride ER (KLOR-CON) 20 mEq tablet, Take 1 tablet by mouth once daily., Disp: 20 tablet, Rfl: 0, 05/21/2025 gabapentin (NEURONTIN) 300 mg capsule, Take 1 capsule by mouth daily at bedtime for 90 days., Disp: , Rfl: , 05/21/2025 escitalopram oxalate (LEXAPRO) 5 mg tablet, Take 1 tablet by mouth once daily., Disp: 30 tablet, Rfl: 3, 05/22/2025 Morning donepezil (ARICEPT) 10 mg tablet, Take 1 tablet by mouth daily with breakfast., Disp: 30 tablet, Rfl: 3, 05/22/2025 Morning acyclovir (ZOVIRAX) 400 mg tablet, Take 1 tablet by mouth two times a day., Disp: 180 tablet, Rfl: 3, 05/21/2025 acetaminophen (TYLENOL EXTRA STRENGTH) 500 mg tablet, Take 1,000 mg by mouth every 8 hours as needed., Disp: , Rfl: , 05/21/2025 cyanocobalamin (VITAMIN B-12) 1,000 mcg tab, Take 2,000 mcg by mouth once daily., Disp: , Rfl: , 05/21/2025 folic acid 800 mcg tablet, Take 400 mcg by mouth once daily., Disp: , Rfl: , 05/21/2025 glimepiride (AMARYL) 2 mg tablet, Take 1 tablet by mouth daily with breakfast. Take 2 mg twice a day. May increase to 4mg BID if your PCP requests so., Disp: , Rfl: , 05/21/2025 clonazePAM (KLONOPIN) 0.5 mg tablet, Take 0.5 mg by mouth once daily., Disp: , Rfl: , 05/21/2025 atorvastatin (LIPITOR) 10 mg tablet, Take 10 mg by mouth once daily., Disp: , Rfl: , 05/21/2025 losartan (COZAAR) 50 mg tablet, Take 50 mg by mouth once daily., Disp: , Rfl: , 05/22/2025 Morning REVLIMID 5 mg capsule, TAKE 1 CAPSULE BY MOUTH DAILY FOR 28 DAYS, Disp: 28 capsule, Rfl: 0, 05/15/2025 rivaroxaban (XARELTO) 20 mg tablet, TAKE 1 TABLET BY MOUTH ONCE DAILY WITH SUPPER, Disp: 30 tablet, Rfl: 11, 05/19/2025 ondansetron (ZOFRAN) 8 mg tablet, Take 1 tablet by mouth every 8 hours as needed for nausea/vomiting. (Patient taking differently: Take 8 mg by mouth every 8 hours as needed for nausea/vomiting.), Disp: 30 tablet, Rfl: 2 Current Facility-Administered Medications Medication Dose Route Frequency clonazePAM 0.5 mg tab(s) (KlonoPIN) 0.5 mg ORAL DAILY acyclovir 400 mg tab(s) (ZOVIRAX) 400 mg ORAL BID [START ON 05/23/2025] rivaroxaban 20 mg tab(s) (XARELTO) 20 mg ORAL DAILY atorvastatin 10 mg tab(s) (LIPITOR) 10 mg ORAL DAILY [START ON 05/23/2025] losartan 50 mg tab(s) (COZAAR) 50 mg ORAL DAILY glimepiride 4 mg tab(s) (AMARYL) 4 mg ORAL q 12 H [START ON 05/23/2025] escitalopram oxalate 5 mg tab(s) (LEXAPRO) 5 mg ORAL DAILY [START ON 05/23/2025] donepezil 10 mg tab(s) (ARICEPT) 10 mg ORAL DAILY WITH BREAKFAST gabapentin 300 mg cap(s) (NEURONTIN) 300 mg ORAL q 12 H potassium chloride ER 20 mEq tab(s) (KLOR-CON) 20 mEq ORAL DAILY ondansetron orally disintegrating 4 mg tab(s) (ZOFRAN ODT) 4 mg ORAL q 6 H PRN Or ondansetron (PF) 4 mg injection (ZOFRAN) 4 mg INTRAVENOUS q 6 H PRN [START ON 05/23/2025] magnesium hydroxide 400 mg/5 mL 30 mL (MOM) 30 mL ORAL DAILY PRN [START ON 05/24/2025] bisacodyl EC 10 mg tab(s) (DULCOLAX) 10 mg ORAL DAILY aluminum-magnesium hydrox (more content not included)... Normal [facility] Hematocrit Auto (Bld) [Volum e fraction]on 05-22-2025 Hematocrit (Bld) [Volume fraction] 32.3 % Low 39.0-51.0 [facility] Comment on above: Order Comment: Jessica cesar Type: BLOOD SPECIMENOrdering Facility: [facility] Address: [address] [place] [address] Performed By: #### 4 544-3, 718-7 ####MARINE LABORATORYCLIA [id number] [address] OF [facility] Hgb Bld-mCncon 05-22-2025 Hemoglobin (Bld) [Mass/Vol] 10.3 g/dL Low 13.0-17.0 [facility] Comment on above: Order Comment: Jessica cesar Type: BLOOD SPECIMENOrdering Facility: [facility] Address: [address] [place] [address] Performed By: #### 7 18-7 ####MARINE LABORATORYCLIA [id number] [place] [address] [place] Hemoglobin (Bld) [Mass/Vol] 10.4 g/dL Low 13.0-17.0 [facility] Comment on above: Order Comment: Jessica cesar Type: BLOOD SPECIMENOrdering Facility: [facility] Address: [address] [place] [address] Performed By: #### 4 544-3, 718-7 ####MARINE LABORATORYCLIA [id number] [address] OF [place] OPERATIVE NOon 05-22-2025 OPERATIVE NO HNO ID: [id number] Author: GAIL ROCK MD Service: Orthopaedic Surgery Author Type: Physician Type: Operative Report Filed: 05/22/2025 10:21 Note Text: PATIENT NAME: Oseas Joseph CSN: [id number] LOG ID: [id number] Surgery Date: 05/22/2025 Surgeon(s) : Surgeons and Role: * Gail Rock MD - Primary Spray Pilot: *KAELA Belle-first aid teacher No qualified resident was available for the case. The PA was utilized for soft tissue retraction and holding the limb in proper alignment to correlate for correct implantation of arthroplasty components and to assist with reduction final components BMI: Estimated body mass index is 23.09 kg/m? as calculated from the following: Height as of this encounter: 185.4 cm (6' 1). Weight as of this encounter: 79.4 kg (175 lb). Procedure(s): Procedure(s) (LRB): ROBOTIC ASSISTED TOTAL HIP ARTHROPLASTY (Right) Anesthesia: General Incision Start: 8:08 AM Incision Stop: 9:57 AM Attestation: I was present for and performed all critical portions of the case.. medical claims assistant was necessary for safe patient positioning, sterile prepping and draping, assistance, positioning and protection, soft tissue retraction, protection of vital structures and suture management during the case, and superficial wound closure. Also critical for safe transit to the recovery room in stable condition. Preop Diagnosis: Pre-Op Diagnosis Codes: * Primary osteoarthritis of right hip [M16.11] Postop Diagnosis: Same as Pre-Op Diagnosis Codes: * Primary osteoarthritis of right hip [M16.11] Implants: Implant Name Type Inv. Item Serial No. Photogrammetric Compilation Specialist Lot No. LRB No. Used Action SHELL TRIDENT II 56MM F TRITANIUM ACETABULAR 5 SCREW HOLE CLUSTER STERILE - [id number] Joint SHELL TRIDENT II 56MM F TRITANIUM ACETABULAR 5 SCREW HOLE CLUSTER STERILE [facility] [id number] Right 1 Implanted TRIDENT X3 ECCENTRIC 0DEG 36MM SIZE F ID - [id number] Joint TRIDENT X3 ECCENTRIC 0DEG 36MM SIZE F ID CHANDLER [id number] Right 1 Implanted STEM ACCOLADE II 6 127D FEMORAL - [id number] Joint STEM ACCOLADE II 6 127D FEMORAL [facility] [id number] Right 1 Implanted HEAD V40 36MM +5MM OFFSET TAPER BIOLOX DELTA FEMORAL HIP - [id number] Joint - Hip HEAD V40 36MM +5MM OFFSET TAPER BIOLOX DELTA FEMORAL HIP [facility] [id number] Right 1 Implanted Problem List: ACTIVE PROBLEM LIST Multiple Myeloma Not Having Achieved Remission (Hcc) Personal History of Diseases of Blood and Blood-Forming Organs Mixed Hyperlipidemia Primary Hypertension Type 2 Diabetes Mellitus, Without Long-Term Current Use of Insulin (Hcc) Right Bundle Branch Block Blurred Vision Insomnia Multiple Myeloma and Immunoproliferative Neoplasms (Hcc) Chronic Diarrhea Chronic Pulmonary Embolism Without Acute Cor Pulmonale (Hcc) Cinv (Chemotherapy-Induced Nausea and Vomiting) Immunocompromised (Hcc) Autologous Bone Marrow Transplantation Status (Hcc) Pancytopenia Due to Antineoplastic Chemotherapy Kye (Acute Kidney Injury) Right Thigh Pain Muscle Pain Weakness of Right Lower Extremity Femoral Neuropathy of Right Lower Extremity Lewy Body Dementia (Hcc) History of positive antibody on type and screen OPERATIVE INDICATIONS: The patient has a history of progressive right hip pain and arthritis. Their hip pain is severe with activity and has progressed significantly over time . X-rays reveal [id number] loss of articular cartilage of the hip with osteophytes consistent with advanced hip osteoarthritis. Non-operative treatment has been attempted, but is now ineffective at controlling symptoms during normal daily activities. Motion has become limited and rotation severely restricted. A total hip arthroplasty was recommended at this time. The risks, benefits and potential complications of the arthroplasty surgery were discussed with the patient in detail. Specific details of the procedure, hospitalization, recovery, rehabilitation, and long-term precautions were also provided. Pre-operative teaching was provided. Implant/prosthesis selection was outlined, and the many options available were explained; the final choice will be made at the time of the procedure to match the anatomy and condition of the bone, ligaments, tendons, and muscles. Understanding of all topics was conveyed to me by the patient, and consent was given to proceed with a right total hip arthroplasty. The patient was evaluated medically for pre-operative optimization. Mare-operative blood management and the potential for blood transfusion were discussed with risks and options clearly outlined. OPERATIVE PROCEDURE: The patient was identified and brought into the Operating Room by the anesthesia and nursing team. Satisfactoryl anesthesia was successfully performed. Intravenous antibiotic prophylaxis dosing was confirmed. The patient was then positioned in the lateral decubitus positi (more content not included)... [facility] Pathology biopsy report Joey (Tiss)on 05-22-2025 AP DISCLAIMER [facility] Comment on above: Order Comment: Speci men Type: TISSUE SPECIMENOrdering Facility: [facility] Address: [address] [place] [address] Result Comment: Ginna jackson Developed Test (LDT) Disclaimer: Performance characteristics of immunohistochemical, immunofluorescent, and chromogenic in-situ hybridization tests have been determined by the performing laboratory within [facility] Pathology and Laboratory Medicine Department ([facility], [facility], [facility], [facility], [facility], [facility], or [facility]) in a manner consistent with CLIA requirements. One or more of these tests may not have been cleared or approved by the FDA. RT-PLM is regulated under CLIA as qualified to perform high-complexity testing. These tests are used for clinical purposes. These should not be regarded as investigational or for research. Positive and negative controls stain appropriately. Performed By: #### 6 6121-5 ####[facility] LABIA [id number] [address] [place] CASE REPORT Normal [facility] Comment on above: Order Comment: Speci men Type: TISSUE SPECIMENOrdering Facility: [facility] Address: [address] [place] [address] Result Comment: Surg [facility] Pathology Report Case: [id number] Authorizing Provider: Gail Rock MD Collected: 05/22/2025 08:23 AM Ordering Location: [facility] Surgery Received: 05/22/2025 10:50 AM Pathologist: Masha Hardwick MD Specimen: Femoral Head, Right, with acetabular reamings Performed By: #### 6 6121-5 ####[facility] LABIA [id number] [place] [address] [place] CLINICAL HISTORY Normal [facility] Comment on above: Order Comment: Speci tali Type: TISSUE SPECIMENOrdering Facility: [facility] Address: [address] [place] [address] Result Comment: Pre- op diagnosis: Primary osteoarthritis of right hip [M16.11] Performed By: #### 6 6121-5 ####[facility] LABCLIA [id number] [address] [place] [address] [address] [place] FINAL DIAGNOSIS Normal [facility] Comment on above: Order Comment: Speci men Type: TISSUE SPECIMENOrdering Facility: [facility] Address: [address] [place] [address] Result Comment: Femo ral head, right, arthroplasty: - Degenerative joint disease. at 1355 EDT Performed By: #### 6 6121-5 ####[facility] LABCLIA [id number] [address] [place] FINAL PERFORMING LAB Normal [facility] Comment on above: Order Comment: Speci men Type: TISSUE SPECIMENOrdering Facility: [facility] Address: [address] [place] [address] Result Comment: Diag nostic interpretation performed at: [facility], [address] [place] [address] CLIA# [id number] Shot Packer: Deepak Prajapati MD Performed By: #### 6 6121-5 ####[facility] LABCLIA [id number] [address] OF [facility] GROSS DESCRIPTION Normal [facility] Comment on above: Order Comment: Speci men Type: TISSUE SPECIMENOrdering Facility: [facility] Address: [address] [place] [address] Result Comment: A. F emoral Head, Right Received in formalin labeled femoral head, right is a femoral head measuring 6.3 x 6 x 5 cm. The articular surface shows areas of cartilage roughening, eburnation and osteophyte formation. The femoral head is cut with a band saw to reveal ibarra, hard trabecular bone beneath the areas of eburnation. No gross necrotic bone is identified. Leather Splitter sections are submitted as follows: A1 soft tissue A2 eburnated bone following formic decalcification A3 non-load bearing bone following formic decalcification [place] May 22, 2025 1:57 PM Gross examination performed at [facility], [address] [place] [address] Performed By: #### 6 6121-5 ####[facility] LABCLIA [id number] [address] [place] THERAPY NTon 05-22-2025 THERAPY NT HNO ID: [id number] Author: ARRON SANDS PT Service: Physical Therapy Author Type: Physical Therapist Type: Therapy (PT/OT/Speech/Resp) Filed: 05/22/2025 17:41 Note Text: -------- Summary: PT Eval -------- Physical Therapy Evaluation Summary SERVICE DATE: 05/22/2025 SERVICE TIME: 1605 to 1701 ROOM: [id number] PT 6 Clicks Score: 17 Total Joint Replacement Discharge Readiness: Pending Physical Therapy Clearance DISCHARGE RECOMMENDATIONS Subacute/SNF Recommended Discharge Disposition Due to: Functional deficits requiring ongoing therapy service prior to discharge home., Patient requires daily (5x/week) skilled therapy at next level of care., Balance deficits, Functional status decline, Requires multiple therapy disciplines Recommended Discharge Equipment: Wheeled Walker (if home going) ASSESSMENT Response to Therapy Interventions: Cognitive Deficits, Good Participation in Activities, Needs Frequent Redirection or Reinstruction, Pain, Requires Additional Time to Complete Activities, Slow Progression with Functional Activities/Skills Pt with balance and strength deficits post ESSIE that is affecting performance of functional activity. Pt is minimal assist with activity, requires maximal time to complete tasks and heavy verbal, tactile and visual cues due to difficulty processing commands. Pt is AANDO to name only, cooperative throughout. Pt with supportive spouse present during session. Based on current functional status pt requires daily skilled PT to maximize function post acute stay. Will continue to assess. PRECAUTIONS Fall Risk, Lines/Tubes/Drains, Posterior Hip Precautions, Weight Bearing Restrictions Right Lower Extremity Weight Bearing Status: 50% PWB CURRENT HOSPITAL COURSE post ROBOTIC ASSISTED TOTAL HIP ARTHROPLASTY (Right) Relevant Past Medical History: Alzheimer's disease, Lewy body dementia, Malignant melanoma, Mixed hyperlipidemia, Multiple myeloma not having achieved remission, hyperlipidemia, primary hypertension, Pulmonary embolism, Right bundle branch block, Type 2 diabetes mellitus HOME LIVING Patient Lives With: Spouse Assistance Available: 24-Hour Entry To Home: Stairs, With Rail Number Of Stairs Into Home: 3 Number Of Stairs To Bed/Bath: 0 Tub/Shower Type: walk in Laundry: spouse to complete Equipment Owned: Walker- Standard, Grab Bars- Shower, Shower Chair PRIOR FUNCTIONAL LEVEL Within Functional Limits Pt and spouse report independence with ADLs, spouse completes IADLs, not driving, 1 fall in last 6 months, sleeps in flat bed SUBJECTIVE Pt agreeable to PT, ok per nursing to treat. THERAPY DIAGNOSIS Reduced mobility-other, Difficulty walking-musculoskeletal, Unsteadiness on feet TREATMENT INTERVENTIONS Evaluation, Therapeutic Activity (24470), Gait Training (69941) Timed Code Treatment (minutes): 40 Skilled Treatment Time (minutes): 56 $ Evaluation-Low (73814) Billed Units: 1 unit Therapeutic Activity (11824) Treatment Minutes: 23 $ Therapeutic Activity (07811) Billed Units: 2 units Exercise Ankle Pumps (number of reps): BLE x 10 Quad Sets (number of reps): BLE x 10 Glut Sets (number of reps): BLE x 10 Exercise: Pt and spouse educated in purpose and parameters of performance of anti-embolics. Gait Training (69268) Treatment Minutes: 17 $ Gait Training (18743) Billed Units: 1 unit TRAINING AND EDUCATION PROVIDED Advanced Balance Activities, Anatomy and Impact on Deficits, Assistive Device Use, Bed Mobility, Benefits of In-Hospital Mobility, Discharge Planning, Disease Specific Education, Equipment, Exercise Program, Expected Functional Level, Falls Prevention, Gait Pattern, Reduction of Deviations, Positioning, Precautions/Restrictions , Role of Physical Therapy, Standing Balance, Transfers, Treatment Protocol THERAPEUTIC SKILLS USED Activity Dosing, Assessment of Tolerance Including Vitals Response to Activity, Cues for Sequencing/Proper Technique for Activity, Cuing Tactile, Cuing Verbal, Cuing Visual, Family Training, Movement Facilitation, Muscle Activation Facilitation, Physical Assist, Postural Alignment Correction, Proprioceptive Input FUNCTIONAL STATUS Bed Mobility Supine To Sit: Minimal Assistance HOB elevated, assist with operative LE management, cues for technique and effective use of UEs for assist. Performed toward R side Sit to Supine: Minimal Assistance assist with trunk and operative LE management, HOB flat Scooting: Contact Guard Assistance Transfers Sit To Stand: Additional Information, Minimal Assistance Cues provided for proper hand and operative LE positioning, initial demonstration provided. Difficulty and increased time to transition hands to walker Stand To Sit: Minimal Assistance, Additional Information Cues for safe a (more content not included)... [facility] THERAPY NT HNO ID: [id number] Author: ARRON SANDS PT Service: Physical Therapy Author Type: Physical Therapist Type: Therapy (PT/OT/Speech/Resp) Filed: 05/22/2025 12:53 Note Text: -------- Summary: PT missed visit -------- PHYSICAL THERAPY MISSED VISIT SERVICE DATE: 05/22/2025 SERVICE TIME: 1224 ROOM: [place] Surgery ([facility]) Patient not seen due to Clinical Appropriateness (hypertension). SIGNATURE: Arron Sands PT PATIENT NAME: Oseas Joseph DATE: May 22, 2025 TIME: 12:53 PM [facility] XR PELVIS 1V APon 05-22-2025 XR PELVIS 1V AP * * *Final Report* * * DATE OF EXAM: May 22 2025 10:24AM MDX 5239 - XR PELVIS 1V AP / PROCEDURE REASON: Post-operative / post-procedure assessment * * * * Physician Interpretation * * * * PROCEDURE: Pelvis INDICATION: Post-operative / post-procedure assessment.post op right hip TECHNIQUE: XR PELVIS 1V AP COMPARISON: 10/02/2024 FINDINGS: There is a new right total hip arthroplasty in satisfactory position with associated postoperative soft tissue changes. No acute fracture. Moderate to advanced left hip osteoarthrosis, similar to previous. IMPRESSION: Postop right ESSIE without radiographic complication Bdr: PSCJennifer Transcribe Date/Time: May 22 2025 10:47A Dictated by : ALEX GUAMAN MD This examination was interpreted and the report reviewed and electronically signed by: ALEX GUAMAN MD on May 22 2025 10:48AM EST [id number] Normal [facility] TYPE AND SCREEN,30 DAYon ABO group Nom (Bld) A [facility] Blood group antibody screen Ql Negative [facility] Comment on above: Patient has a previo us clinically significant antibody Rh Nom (Bld) Positive [facility] CNPNon 04-21-2025 CNPN Telephone (ME2E) -------- OSEAS JOSEPH ([id number]) 1950 M BONE MAR* Date Time Provider Department 04/21/25 GAIL ROCK WA2E During your visit today, we recorded the following information about you: Too Bryant PSS 04/21/2025 4:21 PM Signed TOTAL JOINT COMPLETE CARE PROGRAM PRE-OPERATIVE TEACHING Service Date: 04/21/2025 Service Time: 4:16 PM Date of : 1950 Gender: male Date of Surgery: 05/22/25 Procedure: Right Total Hip Replacement Complete Care Program was discussed with the patient: Warp Placer Identification: Patient identified a care program director to help when discharged to home: spouse Home Environment: Home Layout: Ranch, Entry Steps: 1, Bedroom Location: 1st floor, Bathroom Location: 1st floor, and walk in shower. Pt unsure of equipment. Discussed with patient importance of attending joint education class and provided date and times of class: YES declined. Patient received Joint Education Binder: Yes Patient plans discharge with [facility], unsure if [facility] comes to his area. SIGNATURE: YUMIKO Grace PATIENT NAME: Oseas Joseph DATE: April 21, 2025 TIME: 4:16 PM Allergies As of Date: 04/21/2025 (No Known Allergies) Date Reviewed: 04/17/2025 Reviewed by: Isabel Beard APRN.PATTERNMAKER APPRENTICE WOOD - Fully Assessed Reason for Visit: Pre-Op Teaching [134] Prescriptions as of 04/21/2025 - mupirocin (BACTROBAN) 2 % ointment two times a day for 5 days. Apply 0.5 inch with cotton swab (Q-tip) to each nostril in the morning and evening for 5 days prior to and including day of surgery. - gabapentin (NEURONTIN) 300 mg capsule Take 1 capsule by mouth daily at bedtime for 90 days. - escitalopram oxalate (LEXAPRO) 5 mg tablet Take 1 tablet by mouth once daily. - REVLIMID 5 mg capsule TAKE 1 CAPSULE BY MOUTH DAILY FOR 28 DAYS - rivaroxaban (XARELTO) 20 mg tablet TAKE 1 TABLET BY MOUTH ONCE DAILY WITH SUPPER - donepezil (ARICEPT) 10 mg tablet Take 1 tablet by mouth daily with breakfast. - acyclovir (ZOVIRAX) 400 mg tablet Take 1 tablet by mouth two times a day. - acetaminophen (TYLENOL EXTRA STRENGTH) 500 mg tablet Take 1,000 mg by mouth every 8 hours as needed. - cyanocobalamin (VITAMIN B-12) 1,000 mcg tab Take 2,000 mcg by mouth once daily. - folic acid 800 mcg tablet Take 400 mcg by mouth once daily. - glimepiride (AMARYL) 2 mg tablet Take 1 tablet by mouth daily with breakfast. Take 2 mg twice a day. May increase to 4mg BID if your PCP requests so. - ondansetron (ZOFRAN) 8 mg tablet Take 1 tablet by mouth every 8 hours as needed for nausea/vomiting. - clonazePAM (KLONOPIN) 0.5 mg tablet Take 0.5 mg by mouth once daily. - atorvastatin (LIPITOR) 10 mg tablet Take 10 mg by mouth once daily. - losartan (COZAAR) 50 mg tablet Take 50 mg by mouth once daily. 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] 08/25/2022 04/17/2023 Multiple myeloma not having achieved remission *10/26/2022 Thrombocytopenia, unspecified (HCC) [D69.6] 02/13/2023 02/08/2024 Personal history of diseases of blood and blood*03/30/2023 Mixed hyperlipidemia [E78.2] 04/17/2023 Primary hypertension [I10] 04/17/2023 Type 2 diabetes mellitus, without long-term cur*04/17/2023 Right bundle branch block [I45.10] 04/17/2023 Blurred vision [H53.8] 04/18/2023 Insomnia [G47.00] 04/18/2023 Multiple myeloma and immunoproliferative neopla*05/31/2023 Chronic diarrhea [K52.9] Chronic 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 acute cor pu* CINV (chemotherapy-induced nausea and vomiting)* Immunocompromised (HCC) [D84.9] Pancytopenia (HCC) [D61.818] 08/24/2023 Autologous bone marrow transplantation status (* Other constipation [K59.09] 06/03/2023 06/06/2023 Pancytopenia due to antineoplastic chemotherapy*06/06/2023 KYE (acute kidney injury) (HCC) [N17.9] 06/11/2023 Right thigh pain [M79.651] 01/02/2024 Muscle pain [M79.10] 01/02/2024 Weakness of right lower extremity [R29.898] 01/02/2024 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*01/02/2024 Encounter Status:Closed by TOO BRYANT on 04/21/25 [facility] Tele[facility] (PREANME) -------- OSEAS JOSEPH ([id number]) 1950 M BONE MAR* Date Time Provider Department 04/18/25 ISABEL BEARD During your visit today, we recorded the following information about you: Isabel Beard APRN.EVELIN 04/18/2025 10:52 AM Signed Valdez, I saw this mutual patient in [facility] on 04/17. Osesa Joseph 1950 is scheduled for right ROBOTIC ASSISTED TOTAL HIP ARTHROPLAST with Dr. Rock on 04/24. Patient with history of HLD, RBBB, HTN, PE, DM2, Multiple myeloma, lewy body dementia and Alzheimer's. He has a historical TANDS with positive antibody. He would need blood ordered at least 1 day prior to surgery, if anticipating potential infusion. Last CBC 04/03/25. Thank you! Isabel Beard APRN.Nidhi Toure PA-C 04/18/2025 11:51 AM Signed We will order one unit to have ready if needed. SALLIE Hummel Ariana, APRN.EVELIN 05/05/2025 7:46 AM Signed Hey! Just touching base on this patient that was re-scheduled and wanted to send a reminder that he has a historical TANDS with positive antibody. He would need blood ordered at least 1 day prior to surgery, if anticipating potential infusion. Last CBC 05/01/25. COMPLETE BLOOD COUNT AND DIFFERENTIAL (05/01/2025 10:44 AM) Allergies As of Date: 04/18/2025 (No Known Allergies) Date Reviewed: 04/17/2025 Reviewed by: Isabel Beard APRN.EVELIN - Fully Assessed Reason for Visit: Preparations For Procedures [899] Prescriptions as of 05/05/2025 - potassium chloride ER (KLOR-CON) 20 mEq tablet Take 1 tablet by mouth once daily. - gabapentin (NEURONTIN) 300 mg capsule Take 1 capsule by mouth daily at bedtime for 90 days. - escitalopram oxalate (LEXAPRO) 5 mg tablet Take 1 tablet by mouth once daily. - REVLIMID 5 mg capsule TAKE 1 CAPSULE BY MOUTH DAILY FOR 28 DAYS - rivaroxaban (XARELTO) 20 mg tablet TAKE 1 TABLET BY MOUTH ONCE DAILY WITH SUPPER - donepezil (ARICEPT) 10 mg tablet Take 1 tablet by mouth daily with breakfast. - acyclovir (ZOVIRAX) 400 mg tablet Take 1 tablet by mouth two times a day. - acetaminophen (TYLENOL EXTRA STRENGTH) 500 mg tablet Take 1,000 mg by mouth every 8 hours as needed. - cyanocobalamin (VITAMIN B-12) 1,000 mcg tab Take 2,000 mcg by mouth once daily. - folic acid 800 mcg tablet Take 400 mcg by mouth once daily. - glimepiride (AMARYL) 2 mg tablet Take 1 tablet by mouth daily with breakfast. Take 2 mg twice a day. May increase to 4mg BID if your PCP requests so. - ondansetron (ZOFRAN) 8 mg tablet Take 1 tablet by mouth every 8 hours as needed for nausea/vomiting. - clonazePAM (KLONOPIN) 0.5 mg tablet Take 0.5 mg by mouth once daily. - atorvastatin (LIPITOR) 10 mg tablet Take 10 mg by mouth once daily. - losartan (COZAAR) 50 mg tablet Take 50 mg by mouth once daily. 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] 08/25/2022 04/17/2023 Multiple myeloma not having achieved remission *10/26/2022 Thrombocytopenia, unspecified (HCC) [D69.6] 02/13/2023 02/08/2024 Personal history of diseases of blood and blood*03/30/2023 Mixed hyperlipidemia [E78.2] 04/17/2023 Primary hypertension [I10] 04/17/2023 Type 2 diabetes mellitus, without long-term cur*04/17/2023 Right bundle branch block [I45.10] 04/17/2023 Blurred vision [H53.8] 04/18/2023 Insomnia [G47.00] 04/18/2023 Multiple myeloma and immunoproliferative neopla*05/31/2023 Chronic diarrhea [K52.9] Chronic 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 acute cor pu* CINV (chemotherapy-induced nausea and vomiting)* Immunocompromised (HCC) [D84.9] Pancytopenia (HCC) [D61.818] 08/24/2023 Autologous bone marrow transplantation status (* Other constipation [K59.09] 06/03/2023 06/06/2023 Pancytopenia due to antineoplastic chemotherapy*06/06/2023 KYE (acute kidney injury) (HCC) [N17.9] 06/11/2023 Right thigh pain [M79.651] 01/02/2024 Muscle pain [M79.10] 01/02/2024 Weakness of right lower extremity [R29.898] 01/02/2024 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*01/02/2024 Encounter Status:Closed by ISABEL BEARD on 04/21/25 [facility] CALVINOSEAS MENDIOLA ([id number]) 1950 M BONE MAR* Date Time Provider Department 04/17/25 ISABEL BEARD PREETHEL During your visit today, we recorded the following information about you: Isabel Beard APRN.[facility] 04/17/2025 9:40 AM Signed Valdez, I saw this mutual patient in [facility] on 04/17/2025. Oseas Lui Calvinsarah is scheduled for right ROBOTIC ASSISTED TOTAL HIP ARTHROPLASTY with Dr. Rock, on 04/24. I am requesting that Oseas HOLD Xarelto (rivaroxabon) for 3 days for the patient's upcoming procedure. Also do you have any perioperative recommendation regarding his REVLIMID. Please advise. Thank you, Isabel Beard APRN.[facility] Connie Mccain DO 04/18/2025 6:21 PM Signed Yes, okay to hold Xarelto. Advised him to start holding Revlimid as of now as well. He should hold Revlimid until he is seen for OV on 05/01. DO Isabel Mclaughlin Brandy 04/20/2025 10:18 AM Signed I called and spoke to Louise patient's spouse and she stated understanding of the below information. She also stated that patient may not have procedure this week due to haing something viral but it will depend on how he is feeling in the next few days [place] Pss Allergies As of Date: 04/17/2025 (No Known Allergies) Date Reviewed: 04/17/2025 Reviewed by: Isabel Beard APRN.EVELIN - Fully Assessed Reason for Visit: Presurgical Preparations [Other] Prescriptions as of 05/05/2025 - potassium chloride ER (KLOR-CON) 20 mEq tablet Take 1 tablet by mouth once daily. - gabapentin (NEURONTIN) 300 mg capsule Take 1 capsule by mouth daily at bedtime for 90 days. - escitalopram oxalate (LEXAPRO) 5 mg tablet Take 1 tablet by mouth once daily. - REVLIMID 5 mg capsule TAKE 1 CAPSULE BY MOUTH DAILY FOR 28 DAYS - rivaroxaban (XARELTO) 20 mg tablet TAKE 1 TABLET BY MOUTH ONCE DAILY WITH SUPPER - donepezil (ARICEPT) 10 mg tablet Take 1 tablet by mouth daily with breakfast. - acyclovir (ZOVIRAX) 400 mg tablet Take 1 tablet by mouth two times a day. - acetaminophen (TYLENOL EXTRA STRENGTH) 500 mg tablet Take 1,000 mg by mouth every 8 hours as needed. - cyanocobalamin (VITAMIN B-12) 1,000 mcg tab Take 2,000 mcg by mouth once daily. - folic acid 800 mcg tablet Take 400 mcg by mouth once daily. - glimepiride (AMARYL) 2 mg tablet Take 1 tablet by mouth daily with breakfast. Take 2 mg twice a day. May increase to 4mg BID if your PCP requests so. - ondansetron (ZOFRAN) 8 mg tablet Take 1 tablet by mouth every 8 hours as needed for nausea/vomiting. - clonazePAM (KLONOPIN) 0.5 mg tablet Take 0.5 mg by mouth once daily. - atorvastatin (LIPITOR) 10 mg tablet Take 10 mg by mouth once daily. - losartan (COZAAR) 50 mg tablet Take 50 mg by mouth once daily. 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] 08/25/2022 04/17/2023 Multiple myeloma not having achieved remission *10/26/2022 Thrombocytopenia, unspecified (HCC) [D69.6] 02/13/2023 02/08/2024 Personal history of diseases of blood and blood*03/30/2023 Mixed hyperlipidemia [E78.2] 04/17/2023 Primary hypertension [I10] 04/17/2023 Type 2 diabetes mellitus, without long-term cur*04/17/2023 Right bundle branch block [I45.10] 04/17/2023 Blurred vision [H53.8] 04/18/2023 Insomnia [G47.00] 04/18/2023 Multiple myeloma and immunoproliferative neopla*05/31/2023 Chronic diarrhea [K52.9] Chronic 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 acute cor pu* CINV (chemotherapy-induced nausea and vomiting)* Immunocompromised (HCC) [D84.9] Pancytopenia (HCC) [D61.818] 08/24/2023 Autologous bone marrow transplantation status (* Other constipation [K59.09] 06/03/2023 06/06/2023 Pancytopenia due to antineoplastic chemotherapy*06/06/2023 KYE (acute kidney injury) (HCC) [N17.9] 06/11/2023 Right thigh pain [M79.651] 01/02/2024 Muscle pain [M79.10] 01/02/2024 Weakness of right lower extremity [R29.898] 01/02/2024 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*01/02/2024 Encounter Status:Closed by ISABEL BEARD on 04/21/[address] [facility] [address] HIP WO IVCON RTon 025 CT HIP WO IVCON RT * * *Final Report* * * DATE OF EXAM: Apr 17 2025 11:03AM [facility] [place] [facility] [place] - CT HIP WO IVCON RT / PROCEDURE REASON: multiple diagnoses * * * * Physician Interpretation * * * * EXAMINATION: CT HIP WO IVCON RT CLINICAL HISTORY: 74 years old Male with Primary osteoarthritis of right hip Preoperative testing . . TECHNIQUE: CT RIGHT hip without contrast Leonard protocol, 0.62 mm axial slices pelvis-hips, 2.5 mm axial slices both knees CT Radiation dose: Integrated Dose-length product (DLP) for this visit = 1458 mGy*cm. CT Dose Reduction Employed: Automated exposure control(AEC) and iterative recon COMPARISON: Radiographs 10/18/2024 and 10/02/2024 RESULT: Advanced bilateral hip osteoarthrosis. Small left inguinal hernia containing a loop of unremarkable appearing small bowel, new compared to a PET/CT dated 09/25/2023. Bilateral knees: Bilateral osteoarthrosis Building Cleaning Supervisor: No significant finding. IMPRESSION: Limited CT images for the purposes of presurgical planning. Small left inguinal hernia containing a loop of unremarkable appearing small bowel Bdr: FANY Transcribe Date/Time: Apr 17 2025 1:04P Dictated by : ALEX GUAMAN MD This examination was interpreted and the report reviewed and electronically signed by: ALEX GUAMAN MD on Apr 17 2025 1:07PM EST [id number] Normal [facility] CT Hip - right WO contraston 04-17-2025 IMPRESSION: Limited CT images for the purposes of presurgical planning. Small left inguinal hernia containing a loop of unremarkable appearing small bowel Bdr: FANY Transcribe Date/Time: Apr 17 2025 1:04P Dictated by : ALEX GUAMAN MD This examination was interpreted and the report reviewed and electronically signed by: ALEX GUAMAN MD on Apr 17 2025 1:07PM EST [facility] * * *Final Report* * * DATE OF EXAM: Apr 17 2025 11:03AM [facility] [place] [facility] [place] - CT HIP WO IVCON RT / PROCEDURE REASON: multiple diagnoses * * * * Physician Interpretation * * * * EXAMINATION: CT HIP WO IVCON RT CLINICAL HISTORY: 74 years old Male with Primary osteoarthritis of right hip Preoperative testing . . TECHNIQUE: CT RIGHT hip without contrast Leonard protocol, 0.62 mm axial slices pelvis-hips, 2.5 mm axial slices both knees CT Radiation dose: Integrated Dose-length product (DLP) for this visit = 1458 mGy*cm. CT Dose Reduction Employed: Automated exposure control(AEC) and iterative recon COMPARISON: Radiographs 10/18/2024 and 10/02/2024 RESULT: Advanced bilateral hip osteoarthrosis. Small left inguinal hernia containing a loop of unremarkable appearing small bowel, new compared to a PET/CT dated 09/25/2023. Bilateral knees: Bilateral osteoarthrosis Building Cleaning Supervisor: No significant finding. [facility] Provider, Eric Burgos - 04/17/2025 * * *Final Report* * * DATE OF EXAM: Apr 17 2025 11:03AM [facility] [place] [facility] [place] [address] - CT HIP WO IVCON RT / PROCEDURE REASON: multiple diagnoses * * * * Physician Interpretation * * * * EXAMINATION: CT HIP WO IVCON RT CLINICAL HISTORY: 74 years old Male with Primary osteoarthritis of right hip Preoperative testing . . TECHNIQUE: CT RIGHT hip without contrast Leonard protocol, 0.62 mm axial slices pelvis-hips, 2.5 mm axial slices both knees CT Radiation dose: Integrated Dose-length product (DLP) for this visit = 1458 mGy*cm. CT Dose Reduction Employed: Automated exposure control(AEC) and iterative recon COMPARISON: Radiographs 10/18/2024 and 10/02/2024 RESULT: Advanced bilateral hip osteoarthrosis. Small left inguinal hernia containing a loop of unremarkable appearing small bowel, new compared to a PET/CT dated 09/25/2023. Bilateral knees: Bilateral osteoarthrosis Building Cleaning Supervisor: No significant finding. IMPRESSION IMPRESSION: Limited CT images for the purposes of presurgical planning. Small left inguinal hernia containing a loop of unremarkable appearing small bowel Bdr: FANY Transcribe Date/Time: Apr 17 2025 1:04P Dictated by : ALEX GUAMAN MD This examination was interpreted and the report reviewed and electronically signed by: ALEX GUAMAN MD on Apr 17 2025 1:07PM EST [facility] Radiology Study observation (narrative) [facility] CT Hip - right WO contrastOr dered By: [facility] Provider on 04-17-2025 [facility] ECG COMPLETEon 04-17-2025 ECG COMPLETE Ventricular Rate : 4 8 BPM Atrial Rate : 48 BPM P-R Interval : 144 ms QRS Duration : 112 ms Q-T Interval : 468 ms QTC Calculation(Bazett) : 418 ms Calculated P [place] : 35 degrees Calculated R [place] : -38 degrees Calculated T [place] : 36 degrees SINUS BRADYCARDIA BORDERLINE LEFT AXIS DEVIATION INCOMPLETE RIGHT BUNDLE BRANCH BLOCK Confirmed by TESFAYE CASTILLO MD ([id number]) on 04/17/2025 7:31:37 PM NAME : OSEAS JOSEPH PID : [id number] : 1950 Gender : Male Race : ORD : [id number] Procedure Date : Apr 17 2025 08:41:17 Edit Date : Apr 17 2025 19:31:42 Diagnosis: SINUS BRADYCARDIA BORDERLINE LEFT AXIS DEVIATION INCOMPLETE RIGHT BUNDLE BRANCH BLOCK Confirmed by TESFAYE CASTILLO MD ([id number]) on 04/17/2025 7:31:37 PM Test Reason : HCS Location : 10 : [facility] Overread By : TESFAYE CASTILLO MD Edited By : TESFAYE CASTILLO MD Referred By : GAIL ROCK Acquired by : Álvaro wiley [facility] HISTORY PHYSICALon HISTORY PHYSICAL HNO ID: [id number] Author: ISABEL BEARD APRN.PATTERNMAKER APPRENTICE WOOD Service: ? Author Type: Nurse Practitioner Type: H&P Filed: 04/21/2025 07:21 Note Text: [facility] HISTORY AND PHYSICAL EXAMINATION SERVICE DATE: 04/17/2025 SERVICE TIME: 8:44 AM PRIMARY CARE PHYSICIAN: Connie Lugo MD Assessment Patient has the following medical conditions which may affect mare-operative course: 1. Mixed hyperlipidemia (E78.2) - Compliant with atorvastatin. Follows with PCP. 2. Primary hypertension (I10) - Managed with losartan. Stable. Follows with PCP. Last 3 Encounter BP Readings: Date: BP: 04/17/2025 156/80 04/08/2025 136/78 04/03/2025 100/55 3. Right bundle branch block (I45.10) - Patient reports heart rate typically in the 50's. Denies Shortness of Breath, Chest pain, dizziness, syncope. 4. History of pulmonary embolism (Z86.711) - PE December of 2022. Currently On Xarelto; Plan to hold medication for 3 days prior to surgery, with the last dose on 04/20. -Follows with hematology/oncology. Visit (SP) Office with Connie Mccain DO (04/03/2025) 5. Type 2 diabetes mellitus without complication, without long-term current use of insulin (HCC) (E11.9) - Managed with glyburide. Reports blood sugars typically under 150. Follows with PCP. 6. Multiple myeloma not having achieved remission (HCC) (C90.00) - S/p stem cell transplant two years .Currently On Revlimid daily. - Recent labs show stable condition; next bone marrow biopsy scheduled for July 2025. -Follows with hematology/oncology. Visit (SP) Office with Connie Mccain DO (04/03/2025) Latest Ref Rng AND Units 02/06/2025 03/06/2025 04/03/2025 CBC WBC 3.70 - 11.00 k/uL 3.61 3.43 3.24 RBC 4.20 - 6.00 m/uL 4.31 4.12 3.56 Hemoglobin 13.0 - 17.0 g/dL 13.6 12.8 11.2 Hematocrit 39.0 - 51.0 % 40.8 38.5 33.4 MCV 80.0 - 100.0 fL 94.7 93.4 93.8 MCH 26.0 - 34.0 pg 31.6 31.1 31.5 MCHC 30.5 - 36.0 g/dL 33.3 33.2 33.5 RDW-CV 11.5 - 15.0 % 13.8 14.1 14.2 Platelet Count 150 - 400 k/uL 157 148 179 MPV 9.0 - 12.7 fL 9.4 9.4 9.5 Baso% % 1.4 0.9 1.0 Abs Neut (ANC) 1.45 - 7.50 k/uL 1.96 1.79 1.72 Abs Lymph 1.00 - 4.00 k/uL 0.93 0.90 0.68 Abs Morton <0.87 k/uL 0.46 0.50 0.32 Abs Eosin <0.46 k/uL 0.19 0.20 0.49 Abs Baso <0.11 k/uL 0.05 0.03 0.03 NRBC /100 WBC 0.0 0.0 0.0 Ovalocytes Few Platelet Estimate Adequate 7. Lewy body dementia, unspecified dementia severity, unspecified whether behavioral, psychotic, or mood disturbance or anxiety (HCC) (G31.83) 8. Alzheimer's disease (HCC) (G30.9) - Diagnosed approximately 6 months ago. Managed with donepezil. [facility] with Gilbert Ramirez APRN.PATTERNMAKER APPRENTICE WOOD (04/14/2025) ANESTHESIA FINDINGS: Intubation History: No history of difficult intubation. No abnormal airway history Significant Anesthesia Considerations: none Airway History: No history of difficult airway No abnormal airway history Amado Activity Status Index: METS: Walk indoors, such as around the house (1.75 METs) Do light work around the house, such as dusting or washing dishes (2.70 METs) Take care of self; that is eating, dressing, bathing, using the toilet (2.75 METs) Walk a block or two on level ground (2.75 METs) Do moderate work around the house, such as vacuuming, sweeping floors, or carrying in groceries (3.50 METs) Do yardwork, such as raking leaves, weeding, or pushing a power mower (4.50 METs) Climb a flight of stairs or walk up a hill (5.50 METs) DASI Score: 23.45 Patient denies any chest pain or undue shortness of breath with the above physical activity. Clinical Frailty Scale: 3. Well, with treated comorbid disease STOP-Bang Score: Jovi loudly Has or is being treated for high blood pressure Patient over 50 years old Male patient Denies feeling tired, fatigued, or sleepy during the daytime Has not been observed to stop breathing or choking/gasping during sleep BMI less than or equal to 35 kg/m2 STOP-Bang Score: 4 [id number] Score: Age: 65-74 Sex: male CHF history: No Hypertension history: Yes Stroke/TIA/thromboemboli sm history: Yes Vascular disease history: No Diabetes history: Yes [id number] Score: 5 I - PHYSICAL EVALUATION AIRWAY Patient intubated: No. Tracheostomy tube not present Mallampati: I. TM distance: >3 FB. Neck ROM: full ROM without neurological symptoms. Mouth opening: adequate. Short neck: no. Thick neck: no Mcdermott present: no Lip Bite Test: I Microretrognathia/Micron agthia/Recessed Chin: No DENTAL Dental findings: teeth intact. Additional comments: CAPS. II - ANESTHESIA PLAN Anesthetic plan additional comments: *PACC/TCI - anesthesia choice. Beta Jamaal Monitoring Plan Post Procedure Analgesic Plan Prepared for Surgery: optimally prepared for surgery, pending [see comment]. EKG reviewed. 04/03-CBC, CMP reviewed and acceptable. Labs pending. Mupirocin ordere (more content not included)... Normal [facility] HbA1c (Bld)on 04-17-2025 Average glucose Estimated from glycated hemoglobin (Bld) [Mass/Vol] 126 mg/dL [facility] Comment on above: eAG: (Estimated aver age glucose) is a calculated value from HgbA1c and is sales representative of the average blood glucose level in the last 2-3 month period. HbA1c (Bld) [Mass fraction] 6 % High 4.3 - 5.6 % [facility] Comment on above: Greek Diabetes As sociation guidelines indicate that patients with HgbA1c in the range 5.7-6.4% are at increased risk for development of diabetes, and intervention by lifestyle modification may be beneficial. HgbA1c greater or equal to 6.5% is considered diagnostic of diabetes. Interpretation and review of laboratory results Abnormal [facility] Average glucose Estimated from glycated hemoglobin (Bld) [Mass/Vol] 126 mg/dL Normal [facility] Comment on above: Order Comment: Jessica cesar Type: BLOOD SPECIMENOrdering Facility: [facility] Address: [address] [place] [address] Result Comment: eAG: (Estimated average glucose) is a calculated value from HgbA1c and is sales representative of the average blood glucose level in the last 2-3 month period. Performed By: #### 5 5454-3 ####[facility] LABCLIA [id number] [place] [address] [place] [facility] HbA1c (Bld) [Mass fraction] 6.0 % High 4.3-5.6 [facility] Comment on above: Order Comment: Jessica cesar Type: BLOOD SPECIMENOrdering Facility: [facility] Address: [address] [place] [address] Result Comment: Amer ican Diabetes Association guidelines indicate that patients with HgbA1c in the range 5.7-6.4% are at increased risk for development of diabetes, and intervention by lifestyle modification may be beneficial. HgbA1c greater or equal to 6.5% is considered diagnostic of diabetes. Performed By: #### 5 5454-3 ####[facility] LABCLIA [id number] [place] [id number] [place] TYPE AND SCREEN,30 DAYon ABO group Nom (Bld) A [facility] Blood group antibody screen Ql Negative [facility] Comment on above: Patient has a previo us clinically significant antibody Rh Nom (Bld) Positive [facility] ABO A Normal [facility] Comment on above: Order Comment: Speci men Type: BLOOD SPECIMENOrdering Facility: [facility] Address: [address] [place] [address] Performed By: #### T SCR30 ####[facility] BLO[facility] BANKCLIA [id number] [place] [address] [facility] Rh Nom (Bld) Positive Normal [facility] Comment on above: Order Comment: Speci men Type: BLOOD SPECIMENOrdering Facility: [facility] Address: [address] [place] [address] Performed By: #### T SCR30 ####[facility] BANKCLIA [id number] [address] CNOVon 04-08-2025 CNOV Office Visit (NEAGCL M) -------- OSEAS JOSEPH ([id number]) 1950 M BONE MAR* Date Time Provider Department 04/08/25 10:30 AM GEOFF YOUNG NEAGCLM During your visit today, we recorded the following information about you: Pulse Respiration Blood pressure Weight 51/minute 16/minute 136/78 86.3 kg Geoff Young MD 04/08/2025 11:40 AM Signed NEUROSURGERY FOLLOW UP OFFICE NOTE Geoff Young MD [facility] [address] [address] Date of visit: April 08, 2025 Patient Name: Mr.Jeffrey Sania Joseph Date of : 1950 Current Age: [age] year old Sex: male MRN/E# [id number] CLINICAL SUMMARY: * Left vestibular schwannoma 2 mm, MRI 03/29/2024 - sensorineural hearing loss, left worse than right * IgG lambda multiple myeloma dx in 2021, - s/p autologous stem cell transplantation on 06/20/2023 * Recent removal of early melanoma back Dr. Mccain - oncology Interval History 03/29/2024 - MRI brain showed Left vestibular schwannoma 2 mm 10/08/2024 - 6 month follow up, very small left sided intracanalicular vestibular schwannoma, appeared slightly brighter on latest exam. Follow up in 6 months. 04/08/2025 - 6 month follow up with MRI brain, stable. Will f/up in 1 yr Subjective Oseas Joseph is a 74 year old right-handed male presenting with spouse. He has a past medical history of Arthritis, Multiple Myeloma, diverticulitis, HTN, PE, HLD and DM2. The patient has been following with Dr. Connie Mccain for known multiple myeloma with diagnosis in 2021. More recently at office visit in January 2024, patient expressed memory issues and concern for early dementia. MRI brain recommended and obtained 03/22/2024 that showed no evidence of parenchymal mass lesion, a 2 mm focus of enhancement in the left IAC was nonspecific, and could be a small schwannoma. Patient then underwent MRI skull base recommended by radiology that confirmed presence of a 2 mm focus of enhancement in the lateral third of the left IAC. Patient subsequently referred to neurosurgery. He was seen in consult on 04/09/2024 where he and his family stated around the time of multiple myeloma diagnosis he had developed issues with memory. His daughter reported his short-term memory had progressively worsened. He noted that he also had some hearing loss on the left. His MRI brain and skull base demonstrated a small 2 mm area of enhancement at the fundus of the IAC most compatible with a small vestibular schwannoma. We discussed observation versus treatment with gamma knife. Recommended continued observation with a repeat MRI brain in 6 months. He was last seen on 10/08/2024 as a 6 month follow up. He reported no changes in symptoms. He still had some difficulty with short term memory. He reported that he has been having some bilateral leg pain. Right leg > left, but fairly equal. He saw orthopedics and he was supposed to be getting hip injections. MRI brain showed a very small left sided intracanalicular vestibular schwannoma, appeared slightly brighter on latest exam. Different appearance may be due to different scanner and contrast agent. The difference in size was too small to justify treating schwannoma. He was recommended to follow up again in 6 months for monitoring. Today he reports that he has been doing fairly well overall. He reports that he is still having bilateral leg pain, right > left. He is scheduled the first week of April for injections for this. He was seeing KAELA Hughes with neurology @ [facility] where patient was diagnosed with -positive CSF biomarkers for AD and Lewy Body disease. He was started on donepezil. In addition, He reports bilateral leg pain for over six months, sharp stabbing pain that happens all the time. Worse with movement. The pain significantly impacts his daily activities. He had x-rays of his hips that demonstrated severe osteoarthritis, worse on the right. He had some relief with hip injections however the pain did come back fairly quickly. He also had an MRI of the lumbar spine and is working with pain management team to set up for lower back injections. Last Chemo: PO Revlimid Current Steroids dose: N/A Current AED Dose: No Smoker: Denies Diabetic: yes, no recent HgbA1c Anticoagulants / Antiplatelets: yes, +Xarelto (hx of PE) Occupation: Retired Objective OBJECTIVE: BP 136/78 Pulse 51 Resp 16 Wt 190 lb 4.1 oz (86.3kg) SpO2 99% PHYSICAL EXAM AANDOx3, speech fluent CN II-XII grossly intact. Cerebellar: no dysmetria No pronator drift Motor: Strength grossly intact in UEs and LEs. Severe pain in right hip with internal rotation, passive flexion extension is unaffected Sensorium: grossly intact. Gait: Antalgic, slow Data Review IMAGING STUDIES: (more content not included)... Normal [facility] CNNURSEon 04-03-2025 [facility] Nurse Visit (HEMML) -------- OSEAS JOSEPH ([id number]) 1950 M BONE MAR* Date Time Provider Department 04/03/25 [facility] During your visit today, we recorded the following information about you: Temo Gill RN 04/07/2025 12:14 PM Signed IRB # [id number], [facility]# SWOG [id number] study entitled Phase III Study of Daratumumab/rHuPH20 (NSC- [id number]) + Lenalidomide or Lenalidomide as Post-Autologous Stem Cell Transplant Maintenance Therapy in Patients with Multiple Myeloma (MM) Using Minimal Residual Disease to Direct Therapy Duration (DRAMMATIC Study). Registration Information: Informed Consent Signed 01/03/2023 Registered Step 1 01/06/2023 Informed Consent Signed Step 2 07/22/2023 Randomization Date: 08/18/2023 Addendum 11/16/2023 Treatment Arm: TAC- 1 Lenalidomide Study ID [id number] Consent to optional samples Yes Study Status Active Patient was here for Cycle 21 and saw Connie Mccain D.O.. All of the patients and his 's questions were answered at this time in regards to right leg issues returning - MRI and EMG completed, memory issues, and labs. Patient doing much better overall per family and patient, but continued memory issues. The patient got his hearing aides and that is helping. Treatment Plan: Treatment Previous Cycle Cycle Current Start Date Frequency End date Lenalidomide Cycle 1 Day 1 08/24/2023 Dose Reduced 05/12/2024 5mg Cycle 21 03/06/2025 - 04/02/2025 Cycle 22 04/03/2025 - 04/30/2025 10/19/2023 Daily, Cycle every 28 days Clinical Trial Specific Testing Test Dates Completed Due Date Bone Marrow Biopsy CTD 07/24/2023 Baseline Step 2 [x] 07/18/2024 12 months post Step 2 [x] 07/24/2025 24 months post Step 2 [] 07/24/2026 36 months post Step 2 [] 07/24/2027 48 months post Step 2 [] QOLs PRO-CTCAE 08/17/2023 (Baseline) [x] 08/24/2023 (Cycle 1) [x] 09/21/2023 (Cycle 2) [x] 10/19/2023 (Cycle 3) [x] 11/16/2023 (Cycle 4) [x] 12/14/2023 (Cycle 5) [x] 01/11/2024 (Cycle 6) [x] 02/08/2024 (Cycle 7) [x] 03/07/2024 (Cycle 8) [x] 04/04/2024 (Cycle 9) [x] 05/02/2024 (Cycle 10) [x] 05/29/2024 (Cycle 11) [x] 06/27/2024 (Cycle 12) [x] 07/25/2024 (Cycle 13) and annual PROMIS-29 and Intolerance [x] 08/22/2024 (Cycle 14) [x] 09/18/2024 (Cycle 15) [x] 10/17/2024 (Cycle 16) [x] 11/14/2024 (Cycle 17) [x] 12/12/2024 (Cycle 18) [x] 01/09/2025 (Cycle 19) [x] 02/06/2025 (Cycle 20) [x] 03/06/2025 (Cycle 21) [x] 04/03/2025 (Cycle 22) [x] Day 1 of every cycle Baseline Weight (08/24/2023 date) 80.7 kg Current Weight 85.3 kg Creatinine Clearance 49.9 ml/min ECOG per ECOG- 1 Bone Marrow - Plasma Cell % Free Light Chains M Protein Date Size (mm) Date [place] Lambda * IGG Date Serum Urine Diagnosis 08/24/2022 20% Diagnosis 10/26/2022 11.7 43.5 Diagnosis 10/26/2022 1.12 M protein present Baseline 07/30/2023 Less than 5%* Baseline 08/07/2023 4.7 2.5 Enrollment 07/31/2023 Cycle 1 0.22 0.00 08/24/2023 Cycle 1 4.1* 2.4* 08/24/2023 Cycle 1 0.28 0.00 09/21/2023 Cycle 2 11.7 8.7 09/21/2023 Cycle 2 0.17 0.01 10/19/2023 Cycle 3 15.5 10.5 10/19/2023 Cycle 3 0.16 0.01 11/16/2023 Cycle 4 17.4 21.4 11/16/2023 Cycle 4 0.20 0.00 12/14/2023 Cycle 5 19.4 23.1 12/14/2023 Cycle 5 0.00* 0.00 01/11/2024 Cycle 6 25.8 19.4 01/11/2024 Cycle 6 0.15 0.00 02/08/2024 Cycle 7 24.2 20.4 02/08/2024 Cycle 7 0.00* 0.00 03/07/2024 Cycle 8 22.0 15.3 03/07/2024 Cycle 8 0.23 0.0 04/04/2024 Cycle 9 22.4 17.5 04/04/2024 Cycle 9 0.24 0.00 05/02/2024 Cycle 10 23.2 16.5 05/02/2024 Cycle 10 0.00* 0.00 05/29/2024 Cycle 11 23.7 15.3 05/29/2024 Cycle 11 0.00* 0.00 06/27/2024 Cycle 12 27.7 19.3 06/27/2024 Cycle 12 0.25 0.00 07/25/2024 Cycle 13 37.8 21.5 07/25/2024 Cycle 13 0.19 0.00 08/22/2024 Cycle 14 25.2 15.7 08/22/2024 Cycle 14 0.25 0.00 09/18/2024 Cycle 15 20.5 13.2 09/18/2024 Cycle 15 0.23 0.00 10/17/2024 Cycle 16 22.8 15.2 10/17/2024 Cycle 16 0.33 0.00 11/14/2024 Cycle 17 21.6 15.4 11/14/2024 Cycle 17 0.20 0.00 12/12/2024 Cycle 18 28.0 18.3 12/12/2024 Cycle 18 0.15 0.00 01/09/2025 Cycle 19 24.7 16.7 01/09/2025 Cycle 19 0.00* 0.00 02/06/2025 Cycle 20 23.9 15.1 02/06/2025 Cycle 20 0.00* 0.00 03/06/2025 Cycle 21 31.0 20.6 03/06/2025 Cycle 21 0.18 0.00 04/03/2025 Cycle 22 52.7 33.5 04/03/2025 Cycle 22 0.00* 0.00 Lowest/Jacque = * 04/03/25 Weight 85.3 kg (188 lb) BSA 0 BMI 0 Temp 37.1 ?C (98.7 ?F) Resp 16 Pulse 55 ! BP 100/55 SpO2 95 % zoledronic acid IV 3.5 mg !: Data is abnormal Drug Accountability/Education - Completed on 04/07/2025. Patient given Cycle 22 diary. Patient did return Cycle 21. Use of the study medication diary and dosing instructions were reviewed with the patient. Patient verbalizes understanding of dosing of Revlimid: Capsules should be taken whole, with water, once daily (patient takes at (more content not included)... Normal [facility] MR Brain WO and W contrast I Von 04-03-2025 IMPRESSION: 3 mm rounded enhancing focus in the distal left ICA fundus, unchanged in size, presumably representing a vestibular schwannoma. Bdr: FANY Transcribe Date/Time: Apr 03 2025 12:09P Dictated by : BON REMY MD This examination was interpreted and the report reviewed and electronically signed by: BON REMY MD on Apr 03 2025 12:27PM [facility] DIVISION OF RADIOLOGY * * *Final Report* * * DATE OF EXAM: Apr 03 2025 11:40AM [facility] 0295 - MRI BRAIN WO/W IVCON / PROCEDURE REASON: Vestibular schwannoma (HCC) * * * * Physician Interpretation * * * * EXAMINATION: MRI BRAIN WO/W IVCON HISTORY: Vestibular schwannoma (HCC) TECHNIQUE: MRI brain IAC protocol without and with contrast. MQ: [id number] Contrast: 8.5 mL Elucirem IV COMPARISON: MRI brain 10/03/2024. Skull base MRI 03/29/2024. RESULT: Acute Change: There is no evidence of restricted diffusion to suggest an acute infarct. Hemorrhage: No evidence of prior parenchymal hemorrhage within constraints of the provided sequences. Mass Lesion/ Mass Effect: Again demonstrated is a small nodular extra-axial soft tissue enhancing mass in the distal fundus of the left IAC which is hypointense on all pulse sequences, most suggestive of a intracanalicular vestibular schwannoma which measured 3 x 3 x 3 mm in greatest orthogonal plane, similar in size to prior exam from 10/03/2024 given differences in technique. No evidence of right-sided IAC/CPA angle mass. The right sided cisternal and canalicular segments of the 7th cranial nerves are unremarkable. Cisternal segments of the left 7th and 8th cranial nerves are unremarkable. Remainder of the visualized cranial nerves are unremarkable. No extra-axial collections. Chronic Change: Scattered punctate foci of increased T2 and FLAIR signal are noted in the supratentorial white matter which is a nonspecific finding, but likely represents minimal chronic microvascular ischemia. Parenchyma: No significant volume loss for age. The brain parenchyma is otherwise within normal limits of signal intensity and morphology. Ventricles: Normal caliber and morphology. Skull Base: The cochlea and vestibular apparatus appear normal in configuration on the CISS sequence bilaterally. No evidence of a marrow replacement process in the imaged skull base. Other: Mild mucosal thickening within the bilateral maxillary sinuses inferiorly with questionable small fluid level in the left dependent maxillary sinus and mild mucosal thickening throughout the ethmoid air cells and right greater than left sphenoid sinuses. Trace left mastoid effusion. The orbits and extracranial soft tissues are unremarkable. DIVISION OF RADIOLOGY Provider, [facility] - 04/03/2025 * * *Final Report* * * DATE OF EXAM: Apr 03 2025 11:40AM [facility] 0295 - MRI BRAIN WO/W IVCON / PROCEDURE REASON: Vestibular schwannoma (HCC) * * * * Physician Interpretation * * * * EXAMINATION: MRI BRAIN WO/W IVCON HISTORY: Vestibular schwannoma (HCC) TECHNIQUE: MRI brain IAC protocol without and with contrast. MQ: [id number] Contrast: 8.5 mL Elucirem IV COMPARISON: MRI brain 10/03/2024. Skull base MRI 03/29/2024. RESULT: Acute Change: There is no evidence of restricted diffusion to suggest an acute infarct. Hemorrhage: No evidence of prior parenchymal hemorrhage within constraints of the provided sequences. Mass Lesion/ Mass Effect: Again demonstrated is a small nodular extra-axial soft tissue enhancing mass in the distal fundus of the left IAC which is hypointense on all pulse sequences, most suggestive of a intracanalicular vestibular schwannoma which measured 3 x 3 x 3 mm in greatest orthogonal plane, similar in size to prior exam from 10/03/2024 given differences in technique. No evidence of right-sided IAC/CPA angle mass. The right sided cisternal and canalicular segments of the 7th cranial nerves are unremarkable. Cisternal segments of the left 7th and 8th cranial nerves are unremarkable. Remainder of the visualized cranial nerves are unremarkable. No extra-axial collections. Chronic Change: Scattered punctate foci of increased T2 and FLAIR signal are noted in the supratentorial white matter which is a nonspecific finding, but likely represents minimal chronic microvascular ischemia. Parenchyma: No significant volume loss for age. The brain parenchyma is otherwise within normal limits of signal intensity and morphology. Ventricles: Normal caliber and morphology. Skull Base: The cochlea and vestibular apparatus appear normal in configuration on the CISS sequence bilaterally. No evidence of a marrow replacement process in the imaged skull base. Other: Mild mucosal thickening within the bilateral maxillary sinuses inferiorly with questionable small fluid level in the left dependent maxillary sinus and mild mucosal thickening throughout the ethmoid air cells and right greater than left sphenoid sinuses. Trace left mastoid effusion. The orbits and extracranial soft tissues are unremarkable. IMPRESSION IMPRESSION: 3 mm rounded enhancing focus in the distal left ICA fundus, unchanged in size, presumably representing a vestibular schwannoma. Bdr: FANY Transcribe Date/Time: Apr 03 2025 12:09P Dictated by : BON REMY MD This examination was interpreted and the report reviewed and electronically signed by: BON REMY MD on Apr 03 2025 12:27PM EST [facility] Radiology Study observation (narrative) [facility] MR Brain WO and W contrast I VOrdered By: [facility] Provider on 04-03-2025 [facility] EMG(NEURO/NI)on 03-03-2025 Results can be seen in attached scanned documents. If you are a patient reviewing this test result, call the doctor who ordered the test with any questions. [facility] MR Lumbar spine WO contrasto n 02-26-2025 IMPRESSION: 1. No evidence of significant central canal stenosis at any level. 2. Mild to moderate foraminal narrowing at L4-5 and L5-S1. 3. Dextroscoliosis. 4. Overall little change when compared with the previous MRI Anatomic Lumbar Variant: None. L4-5 is considered the level of the iliac crest and assume there are 5 lumbar-type vertebrae. Bdr: [facility] Transcribe Date/Time: Feb 26 2025 5:14P Dictated by : BIB SHEA MD This examination was interpreted and the report reviewed and electronically signed by: BIB SHEA MD on Feb 26 2025 5:19PM [facility] DIVISION OF RADIOLOGY * * *Final Report* * * DATE OF EXAM: Feb 26 2025 4:10PM [facility] 0303 - MRI LUMBAR SPINE WO IVCON / PROCEDURE REASON: Radiculopathy of lumbar region * * * * Physician Interpretation * * * * EXAMINATION: MRI LUMBAR SPINE WO IVCON CLINICAL HISTORY: Radiculopathy of lumbar region TECHNIQUE: Routine lumbosacral spine MR protocol without gadolinium. MQ: [id number]_3 COMPARISON: MRI performed 10/19/2023 RESULT: Counting reference: Lumbosacral junction. For the purposes of this report, L4-5 is considered the level of the iliac crest and assume there are 5 lumbar-type vertebrae. Anatomic variant: None. Localizer images: Multiple presumed renal cyst in the kidneys bilaterally Alignment: There is dextroscoliosis with apex at the L3-4 level. Minimal retrolisthesis of L4 on 5. Bone marrow signal/fracture: No evidence of pathologic marrow infiltration. No evidence of prior fracture. Conus: The conus is within normal limits of signal intensity and morphology. Paraspinal soft tissues: Paraspinal soft tissues are within normal limits. Lower thoracic spine: Visualized lower thoracic canal and foramina are patent. L1-L2: Canal and foramina are patent. L2-L3: Minimal disc bulge and mild facet arthropathy. No significant canal or foraminal stenosis L3-L4: Slight disc bulge and mild to moderate facet arthropathy. No central canal stenosis. Mild left foraminal narrowing L4-L5: There is a broad disc bulge with small central protrusion and moderate facet arthropathy. There is no significant central canal stenosis. Mild to moderate right and left foraminal narrowing. No change from previous L5-S1: Right greater than left facet arthropathy. Slight disc bulge. Mild to moderate right and minimal left foraminal narrowing. No central stenosis Sacrum and iliac wings: The visualized sacrum and iliac wings are within normal limits. DIVISION OF RADIOLOGY Provider, [facility] - 02/26/2025 * * *Final Report* * * DATE OF EXAM: Feb 26 2025 4:10PM [facility] 0303 - MRI LUMBAR SPINE WO IVCON / PROCEDURE REASON: Radiculopathy of lumbar region * * * * Physician Interpretation * * * * EXAMINATION: MRI LUMBAR SPINE WO IVCON CLINICAL HISTORY: Radiculopathy of lumbar region TECHNIQUE: Routine lumbosacral spine MR protocol without gadolinium. MQ: [id number] COMPARISON: MRI performed 10/19/2023 RESULT: Counting reference: Lumbosacral junction. For the purposes of this report, L4-5 is considered the level of the iliac crest and assume there are 5 lumbar-type vertebrae. Anatomic variant: None. Localizer images: Multiple presumed renal cyst in the kidneys bilaterally Alignment: There is dextroscoliosis with apex at the L3-4 level. Minimal retrolisthesis of L4 on 5. Bone marrow signal/fracture: No evidence of pathologic marrow infiltration. No evidence of prior fracture. Conus: The conus is within normal limits of signal intensity and morphology. Paraspinal soft tissues: Paraspinal soft tissues are within normal limits. Lower thoracic spine: Visualized lower thoracic canal and foramina are patent. L1-L2: Canal and foramina are patent. L2-L3: Minimal disc bulge and mild facet arthropathy. No significant canal or foraminal stenosis L3-L4: Slight disc bulge and mild to moderate facet arthropathy. No central canal stenosis. Mild left foraminal narrowing L4-L5: There is a broad disc bulge with small central protrusion and moderate facet arthropathy. There is no significant central canal stenosis. Mild to moderate right and left foraminal narrowing. No change from previous L5-S1: Right greater than left facet arthropathy. Slight disc bulge. Mild to moderate right and minimal left foraminal narrowing. No central stenosis Sacrum and iliac wings: The visualized sacrum and iliac wings are within normal limits. IMPRESSION IMPRESSION: 1. No evidence of significant central canal stenosis at any level. 2. Mild to moderate foraminal narrowing at L4-5 and L5-S1. 3. Dextroscoliosis. 4. Overall little change when compared with the previous MRI Anatomic Lumbar Variant: None. L4-5 is considered the level of the iliac crest and assume there are 5 lumbar-type vertebrae. Bdr: [facility] Transcribe Date/Time: Feb 26 2025 5:14P Dictated by : BIB SHEA MD This examination was interpreted and the report reviewed and electronically signed by: BIB SHEA MD on Feb 26 2025 5:19PM EST [facility] Radiology Study observation (narrative) [facility] MR Lumbar spine WO contrastO rdered By: [facility] Provider on 02-26-2025 [facility] BRIEF OP NOTon 10-18-2024 BRIEF OP NOT HNO ID: [id number] Author: ELIZABETH FOSTER PA-C Service: Radiology Author Type: Physician Spray Pilot Type: Brief Op Note Filed: 10/18/2024 14:08 Note Text: BRIEF OP NOTE LOG ID: [id number] Surgery/Procedure Date: 10/18/2024 Incision/Procedure Start Time: 1:42 PM Incision Close/Procedure End Time: 1:52 PM Surgeon(s)/Proceduralist (s) and Spray Pilot(s): Elizabeth Foster PA-C Procedure(s): Imaging guided bilaterally hip pain injection Anesthesia: local 5 ml lidocaine Findings: Successful bilaterally hip pain injection of 1cc Lidocaine 1% and Kenalog 40mg/ml - 2 cc's . RIGHT Pre-procedure pain of 6/10 Post-procedure pain of 0/10 LEFT Pre-procedure pain of 6/10 Post-procedure pain of 0/10 Estimated Blood Loss: <1 ml Specimens: None Complications: None Pre-Op/Pre-Procedure Diagnosis: bilaterally hip pain Post-Op/Post-Procedure Diagnosis: same SIGNATURE: Elizabeth Foster PA-C PATIENT NAME: Oseas Joseph DATE: October 18, 2024 TIME: 2:07 PM PAGER/CONTACT #: [facility] Guidance for injection of Hi lucille 10-18-2024 IMPRESSION: Tj barron successful fluoroscopy guided left hip injection for pain management. Bdr: FANY Transcribe Date/Time: Oct 18 2024 2:47P Dictated by : KAELA WILSON This examination was interpreted and the report reviewed and electronically signed by: KAELA WILSON on Oct 18 2024 2:49PM [facility] RADIOLOGY * * *Final Report* * * DATE OF EXAM: Oct 18 2024 2:09PM [facility] 5102 - XR HIP INJECTION LT / PROCEDURE REASON: multiple diagnoses * * * * Physician Interpretation * * * * EXAM TITLE: FLUOROSCOPY GUIDED LEFT HIP INJECTION DATE: 10/18/2024 COMPARISON: XR HIP 10/02/2024 CLINICAL INDICATION/HISTORY: The patient is a 74-year-old male with known osteoarthritis and left hip pain. Procedure Start Time and Sign in Time: 13:42 Procedure End Time and Sign Out Time: 13:52 TECHNIQUE: Informed consent was obtained from the patient. The patient was placed in a supine position and the left groin was prepped and draped in a sterile fashion. With fluoroscopy an appropriate skin entry site was identified and anesthetized. A 22-gauge spinal needle was directed into the hip joint and contrast was injected to confirm the intra-articular position of the needle tip. 2 cc of Kenalog and 1cc of 1% lidocaine was injected into the hip joint. The hip was exercised. 1 minutes and 2 seconds of fluoroscopy time was utilized during the procedure. There were no apparent complications. FINDINGS: Spot film demonstrates joint space narrowing of the hip. Preprocedure pain was 6 out of 10. Post procedure pain was 0 out of 10. Procedure was performed by: Elizabeth Foster PA-C [facility] Provider, [facility] - 10/18/2024 * * *Final Report* * * DATE OF EXAM: Oct 18 2024 2:09PM [facility] 5102 - XR HIP INJECTION LT / PROCEDURE REASON: multiple diagnoses * * * * Physician Interpretation * * * * EXAM TITLE: FLUOROSCOPY GUIDED LEFT HIP INJECTION DATE: 10/18/2024 COMPARISON: XR HIP 10/02/2024 CLINICAL INDICATION/HISTORY: The patient is a 74-year-old male with known osteoarthritis and left hip pain. Procedure Start Time and Sign in Time: 13:42 Procedure End Time and Sign Out Time: 13:52 TECHNIQUE: Informed consent was obtained from the patient. The patient was placed in a supine position and the left groin was prepped and draped in a sterile fashion. With fluoroscopy an appropriate skin entry site was identified and anesthetized. A 22-gauge spinal needle was directed into the hip joint and contrast was injected to confirm the intra-articular position of the needle tip. 2 cc of Kenalog and 1cc of 1% lidocaine was injected into the hip joint. The hip was exercised. 1 minutes and 2 seconds of fluoroscopy time was utilized during the procedure. There were no apparent complications. FINDINGS: Spot film demonstrates joint space narrowing of the hip. Preprocedure pain was 6 out of 10. Post procedure pain was 0 out of 10. Procedure was performed by: Elizabeth Foster PA-C IMPRESSION IMPRESSION: Technically successful fluoroscopy guided left hip injection for pain management. Bdr: FANY Transcribe Date/Time: Oct 18 2024 2:47P Dictated by : KAELA WILSON This examination was interpreted and the report reviewed and electronically signed by: KAELA WILSON on Oct 18 2024 2:49PM EST [facility] IMPRESSION: Tj mart successful fluoroscopy guided right hip injection for pain management. Bdr: FANY Transcribe Date/Time: Oct 18 2024 2:44P Dictated by : KAELA WILSON This examination was interpreted and the report reviewed and electronically signed by: KAELA WILSON on Oct 18 2024 2:49PM EST [facility] * * *Final Report* * * DATE OF EXAM: Oct 18 2024 2:09PM [facility] 5103 - XR HIP INJECTION RT / PROCEDURE REASON: multiple diagnoses * * * * Physician Interpretation * * * * EXAM TITLE: FLUOROSCOPY GUIDED RIGHT HIP INJECTION DATE: 10/18/2024 COMPARISON: XR HIP 10/02/2024 CLINICAL INDICATION/HISTORY: The patient is a 74-year-old male with known osteoarthritis and hip pain. Procedure Start Time and Sign in Time: 13:42 Procedure End Time and Sign Out Time: 13:52 TECHNIQUE: Informed consent was obtained from the patient. The patient was placed in a supine position and the right groin was prepped and draped in a sterile fashion. With fluoroscopy an appropriate skin entry site was identified and anesthetized. A 22-gauge spinal needle was directed into the hip joint and contrast was injected to confirm the intra-articular position of the needle tip. 2 cc of Kenalog and 1cc of 1% lidocaine was injected into the hip joint. The hip was exercised. 1 minutes and 2 seconds of fluoroscopy time was utilized during the procedure. There were no apparent complications. FINDINGS: Spot film demonstrates joint space narrowing of the hip. Preprocedure pain was 6 out of 10. Post procedure pain was 0 out of 10. Procedure was performed by: Elizabeth Foster PA-C [facility] Provider, [facility] - 10/18/2024 * * *Final Report* * * DATE OF EXAM: Oct 18 2024 2:09PM [facility] 5103 - XR HIP INJECTION RT / PROCEDURE REASON: multiple diagnoses * * * * Physician Interpretation * * * * EXAM TITLE: FLUOROSCOPY GUIDED RIGHT HIP INJECTION DATE: 10/18/2024 COMPARISON: XR HIP 10/02/2024 CLINICAL INDICATION/HISTORY: The patient is a 74-year-old male with known osteoarthritis and hip pain. Procedure Start Time and Sign in Time: 13:42 Procedure End Time and Sign Out Time: 13:52 TECHNIQUE: Informed consent was obtained from the patient. The patient was placed in a supine position and the right groin was prepped and draped in a sterile fashion. With fluoroscopy an appropriate skin entry site was identified and anesthetized. A 22-gauge spinal needle was directed into the hip joint and contrast was injected to confirm the intra-articular position of the needle tip. 2 cc of Kenalog and 1cc of 1% lidocaine was injected into the hip joint. The hip was exercised. 1 minutes and 2 seconds of fluoroscopy time was utilized during the procedure. There were no apparent complications. FINDINGS: Spot film demonstrates joint space narrowing of the hip. Preprocedure pain was 6 out of 10. Post procedure pain was 0 out of 10. Procedure was performed by: Elizabeth Foster PA-C IMPRESSION IMPRESSION: Technically successful fluoroscopy guided right hip injection for pain management. Bdr: PSCB Transcribe Date/Time: Oct 18 2024 2:44P Dictated by : KAELA WILSON This examination was interpreted and the report reviewed and electronically signed by: KAELA WILSON on Oct 18 2024 2:49PM EST [facility] Radiology Study observation (narrative) [facility] Guidance for injection of Hi pOrdered By: [facility] Provider on 10-18-2024 [facility] XR HIP INJECTION LTon 2023 XR HIP INJECTION LT * * *Final Report* * * DATE OF EXAM: Oct 18 2024 2:09PM [facility] 5102 - XR HIP INJECTION LT / PROCEDURE REASON: multiple diagnoses * * * * Physician Interpretation * * * * EXAM TITLE: FLUOROSCOPY GUIDED LEFT HIP INJECTION DATE: 10/18/2024 COMPARISON: XR HIP 10/02/2024 CLINICAL INDICATION/HISTORY: The patient is a 74-year-old male with known osteoarthritis and left hip pain. Procedure Start Time and Sign in Time: 13:42 Procedure End Time and Sign Out Time: 13:52 TECHNIQUE: Informed consent was obtained from the patient. The patient was placed in a supine position and the left groin was prepped and draped in a sterile fashion. With fluoroscopy an appropriate skin entry site was identified and anesthetized. A 22-gauge spinal needle was directed into the hip joint and contrast was injected to confirm the intra-articular position of the needle tip. 2 cc of Kenalog and 1cc of 1% lidocaine was injected into the hip joint. The hip was exercised. 1 minutes and 2 seconds of fluoroscopy time was utilized during the procedure. There were no apparent complications. FINDINGS: Spot film demonstrates joint space narrowing of the hip. Preprocedure pain was 6 out of 10. Post procedure pain was 0 out of 10. Procedure was performed by: Elizabeth Foster PA-C IMPRESSION: Technically successful fluoroscopy guided left hip injection for pain management. Bdr: FANY Transcribe Date/Time: Oct 18 2024 2:47P Dictated by : KAELA WILSON This examination was interpreted and the report reviewed and electronically signed by: KAELA WILSON on Oct 18 2024 2:49PM EST [id number] [facility] XR HIP INJECTION RTon 2023 XR HIP INJECTION RT * * *Final Report* * * DATE OF EXAM: Oct 18 2024 2:09PM [facility] 5103 - XR HIP INJECTION RT / PROCEDURE REASON: multiple diagnoses * * * * Physician Interpretation * * * * EXAM TITLE: FLUOROSCOPY GUIDED RIGHT HIP INJECTION DATE: 10/18/2024 COMPARISON: XR HIP 10/02/2024 CLINICAL INDICATION/HISTORY: The patient is a 74-year-old male with known osteoarthritis and hip pain. Procedure Start Time and Sign in Time: 13:42 Procedure End Time and Sign Out Time: 13:52 TECHNIQUE: Informed consent was obtained from the patient. The patient was placed in a supine position and the right groin was prepped and draped in a sterile fashion. With fluoroscopy an appropriate skin entry site was identified and anesthetized. A 22-gauge spinal needle was directed into the hip joint and contrast was injected to confirm the intra-articular position of the needle tip. 2 cc of Kenalog and 1cc of 1% lidocaine was injected into the hip joint. The hip was exercised. 1 minutes and 2 seconds of fluoroscopy time was utilized during the procedure. There were no apparent complications. FINDINGS: Spot film demonstrates joint space narrowing of the hip. Preprocedure pain was 6 out of 10. Post procedure pain was 0 out of 10. Procedure was performed by: Elizabeth Foster PA-C IMPRESSION: Technically successful fluoroscopy guided right hip injection for pain management. Bdr: FANY Transcribe Date/Time: Oct 18 2024 2:44P Dictated by : KAELA WILSON This examination was interpreted and the report reviewed and electronically signed by: KAELA WILSON on Oct 18 2024 2:49PM EST [id number] [facility] 10-08-2024 [facility] Office Visit (NEAGCL M) -------- OSEAS JOSEPH ([id number]) 1950 M BONE MAR* Date Time Provider Department 10/08/24 10:30 AM GEOFF YOUNG NEAGCLM During your visit today, we recorded the following information about you: Pulse Respiration Blood pressure Weight 62/minute 16/minute 113/66 85.9 kg Height 1.859 m Geoff Young MD 10/08/2024 11:11 AM Signed NEUROSURGERY FOLLOW UP OFFICE NOTE Geoff Young MD Date of visit: October 08, 2024 Patient Name: Mr.Jeffrey Sania Joseph Date of : 1950 Current Age: [age] year old Sex: male MRN/E# [id number] Last Office Visit: Visit date not found CLINICAL SUMMARY: * IgG lambda multiple myeloma dx in 2021, - s/p autologous stem cell transplantation on 06/20/2023 * Recent removal of early melanoma back * Left vestibular schwannoma 2 mm, MRI 03/29/2024 - sensorineural hearing loss, left worse than right SUBJECTIVE: History of Present Illness. Oseas Joseph is a 74 year old right-handed male presenting with spouse. He has a past medical history of Arthritis, Multiple Myeloma, diverticulitis, HTN, PE, HLD and DM2. The patient has been following with Dr. Connie Mccain for known multiple myeloma with diagnosis in 2021. More recently at office visit in January 2024, patient expressed memory issues and concern for early dementia. MRI brain recommended and obtained 03/22/2024 that showed no evidence of parenchymal mass lesion, a 2 mm focus of enhancement in the left IAC was nonspecific, and could be a small schwannoma. Patient then underwent MRI skull base recommended by radiology that confirmed presence of a 2 mm focus of enhancement in the lateral third of the left IAC. Patient subsequently referred to neurosurgery. He was seen in consult on 04/09/2024 where he and his family stated around the time of multiple myeloma diagnosis he had developed issues with memory. His daughter reported his short-term memory had progressively worsened. He noted that he also had some hearing loss on the left. His MRI brain and skull base demonstrated a small 2 mm area of enhancement at the fundus of the IAC most compatible with a small vestibular schwannoma. We discussed observation versus treatment with gamma knife. Recommended continued observation with a repeat MRI brain in 6 months, prompting his visit today. Today he follows up with MRI, he reports no changes in symptoms. He still has some difficulty with short term memory. He reports that he has been having some bilateral leg pain. Right leg > left, but fairly equal. He saw orthopedics and he is supposed to be getting hip injections. 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 PAST MEDICAL HISTORY Diagnosis Date Arthritis Chronic diarrhea Malignant melanoma (HCC) Mixed hyperlipidemia Multiple myeloma not having achieved remission (HCC) 10/26/2022 Other hyperlipidemia 04/17/2023 Primary hypertension 04/17/2023 Pulmonary embolism (HCC) Right bundle branch block 04/17/2023 Type 2 diabetes mellitus, without long-term current use of insulin (HCC) 04/17/2023 PAST SURGICAL HISTORY Procedure Laterality Date REPAIR INCISIONAL HERNIA,REDUCIBLE 8th grade SKIN BX, 1 LESION 06/2022 FAMILY HISTORY Problem Relation Age of Onset Diabetes Mother Hypertension Mother Renal Disease Mother Hypertension Father Diabetes Father Hypertension Sister Diabetes Sister No Known Problems Sister No Known Problems Sister No Known Problems Sister No Known Problems Sister Heart Sister Hypertension Brother Diabetes Brother Hyperlipidemia Brother Heart Brother Hypertension Maternal Grandmother Diabetes Maternal Grandmother Colon Cancer Paternal Grandmother Hypertension Paternal Grandfather ALLERGIES No Known Allergies Current Outpatient Medications Medication Sig Dispense Refill XARELTO 20 mg tablet TAKE 1 TABLET BY MOUTH ONCE DAILY WITH DINNER 30 tablet 0 REVLIMID 5 mg capsule TAKE 1 CAPSULE BY MOUTH DAILY FOR 28 DAYS 28 capsule 0 tiZANidine (ZANAFLEX) 2 mg tablet Take 1 tablet by mouth every 6 hours as needed. 45 tablet 0 cyanocobalamin (VITAMIN B-12) 1,000 mcg tab Take 2,000 mcg by mouth once daily. folic acid 800 mcg tablet Take 400 mcg by mouth once daily. acyclovir (ZOVIRAX) 400 mg tablet Take 1 tablet by mouth two times a day. 180 tablet 3 sildenafil (VIAGRA) 50 mg tablet Take 50 mg by mouth as needed. glimepiride (AMARYL) 2 mg tablet Take 1 tablet by mouth daily with breakfast. Take 2 mg twice a day. May increase to 4mg BID if your PCP requests so. (Patient taking differently: Take 4 mg by mouth two times a day with meals. Take 4 mg twice a da (more content not included)... Normal [facility] MR Brain WO and W contrast I Von 10-03-2024 IMPRESSION: Mild interval increase in size of the small left intracanalicular vestibular schwannoma since 03/29/2024. Otherwise stable appearance of the brain. Bdr: FANY Transcribe Date/Time: Oct 03 2024 10:39A Dictated by : CONNIE OSWALD MD This examination was interpreted and the report reviewed and electronically signed by: CONNIE OSWALD MD on Oct 03 2024 10:56AM [facility] DIVISION OF RADIOLOGY * * *Final Report* * * DATE OF EXAM: Oct 03 2024 10:04AM [facility] 0295 - MRI BRAIN WO/W IVCON / PROCEDURE REASON: multiple diagnoses * * * * Physician Interpretation * * * * EXAMINATION: MRI BRAIN WO/W IVCON CLINICAL HISTORY: Hypertension, hypercholesterolemia, and diabetes. Multiple myeloma. Vestibular schwannoma. TECHNIQUE: Intracranial mass and IAC protocols with and without gadolinium. MQ: MRBWOW_2 Contrast: 9 mL Elucirem IV COMPARISON: 03/29/2024 RESULT: Acute Change: There is no evidence of an acute intracranial process. Hemorrhage: No clear evidence of prior parenchymal hemorrhage within the constraints of the acquisition. Mass Lesion/ Mass Effect: Again noted is a small nodular extra-axial soft tissue mass in the fundus of the left IAC which is hypointense on all pulse sequences and prominently enhances with gadolinium suggesting a small intracanalicular vestibular schwannoma. When compared to the prior study, this is mildly increased in size, currently measuring about 23 mm in diameter. There is otherwise no evidence of an intracranial mass. No abnormal parenchymal or leptomeningeal enhancement is appreciated otherwise following gadolinium administration. Chronic Change: A few isolated small patchy foci of hyperintensity are again noted in the supratentorial white matter on FLAIR which are nonspecific but likely represent minimal chronic microvascular ischemia in view of the patient's chronologic age. Parenchyma: No significant volume loss for age. The brain parenchyma is otherwise within normal limits of signal intensity and morphology. Ventricles: Normal caliber and morphology. Skull Base: Hypothalamic and pituitary region are grossly normal. Craniocervical junction is normal. No significant marrow replacement process in the skull base or calvarium. Vasculature: Major intracranial arterial structures, and dural venous sinuses show typical flow void, suggesting patency by spin echo criteria. Other: The visualized paranasal sinuses and mastoid air cells are clear. The orbits and extracranial soft tissues are unremarkable. DIVISION OF RADIOLOGY Provider, [facility] - 10/03/2024 * * *Final Report* * * DATE OF EXAM: Oct 03 2024 10:04AM [facility] 0295 - MRI BRAIN WO/W IVCON / PROCEDURE REASON: multiple diagnoses * * * * Physician Interpretation * * * * EXAMINATION: MRI BRAIN WO/W IVCON CLINICAL HISTORY: Hypertension, hypercholesterolemia, and diabetes. Multiple myeloma. Vestibular schwannoma. TECHNIQUE: Intracranial mass and IAC protocols with and without gadolinium. MQ: MRBWOW_2 Contrast: 9 mL Elucirem IV COMPARISON: 03/29/2024 RESULT: Acute Change: There is no evidence of an acute intracranial process. Hemorrhage: No clear evidence of prior parenchymal hemorrhage within the constraints of the acquisition. Mass Lesion/ Mass Effect: Again noted is a small nodular extra-axial soft tissue mass in the fundus of the left IAC which is hypointense on all pulse sequences and prominently enhances with gadolinium suggesting a small intracanalicular vestibular schwannoma. When compared to the prior study, this is mildly increased in size, currently measuring about 23 mm in diameter. There is otherwise no evidence of an intracranial mass. No abnormal parenchymal or leptomeningeal enhancement is appreciated otherwise following gadolinium administration. Chronic Change: A few isolated small patchy foci of hyperintensity are again noted in the supratentorial white matter on FLAIR which are nonspecific but likely represent minimal chronic microvascular ischemia in view of the patient's chronologic age. Parenchyma: No significant volume loss for age. The brain parenchyma is otherwise within normal limits of signal intensity and morphology. Ventricles: Normal caliber and morphology. Skull Base: Hypothalamic and pituitary region are grossly normal. Craniocervical junction is normal. No significant marrow replacement process in the skull base or calvarium. Vasculature: Major intracranial arterial structures, and dural venous sinuses show typical flow void, suggesting patency by spin echo criteria. Other: The visualized paranasal sinuses and mastoid air cells are clear. The orbits and extracranial soft tissues are unremarkable. IMPRESSION IMPRESSION: Mild interval increase in size of the small left intracanalicular vestibular schwannoma since 03/29/2024. Otherwise stable appearance of the brain. Bdr: FANY Transcribe Date/Time: Oct 03 2024 10:39A Dictated by : CONNIE OSWALD MD This examination was interpreted and the report reviewed and electronically signed by: CONNIE OSWALD MD on Oct 03 2024 10:56AM EST [facility] Radiology Study observation (narrative) [facility] MR Brain WO and W contrast I VOrdered By: Ccf Provider on 10-03-2024 [facility] No Panel Informationon 10-02 IMPRESSION: Findings as discussed under Results portion of report. Bdr: [facility] Transcribe Date/Time: Oct 02 2024 5:05P Dictated by : RICHARD MORFIN DO This examination was interpreted and the report reviewed and electronically signed by: RICHARD MORFIN DO on Oct 02 2024 5:06PM [facility] RADIOLOGY Radiology Study observation (narrative) [facility] No Panel InformationOrdered By: Ccf Provider on 10-02-2024 [facility] XR HIP 3V PELV+ AP/LAT LTon 10-02-2024 XR HIP 3V PELV+ AP/LAT LT * * *Final Report* * * DATE OF EXAM: Oct 02 2024 2:25PM [facility] 5351 - XR HIP 3V PELV+ AP/LAT LT / PROCEDURE REASON: multiple diagnoses * * * * Physician Interpretation * * * * EXAM(s): XR HIP 3V PELV+ AP/LAT LT, XR HIP 3V PELV+ AP/LAT RT HISTORY: Indication: Bilateral hip pain Bilateral hip pain Left hip pain (accession [id number]), Right hip pain (accession [id number]) TECHNIQUE: Images: XR HIP 3V PELV+ AP/LAT LT, XR HIP 3V PELV+ AP/LAT RT Comparison: None. RESULT: Findings: Findings: Mild degenerative changes L5-S1 level Pelvis: No fractures or dislocations are seen. Severe narrowing of both hip joints. Sacroiliac joints are patent. Mild narrowing of the pubic symphysis is seen. Left hip: No fractures or dislocations are seen. RIGHT hip : No fractures or dislocations are seen. IMPRESSION: Findings as discussed under Results portion of report. Bdr: FANY Transcribe Date/Time: Oct 02 2024 5:05P Dictated by : RICHARD MORFIN DO This examination was interpreted and the report reviewed and electronically signed by: RICHARD MORFIN DO on Oct 02 2024 5:06PM EST [id number] [facility] XR HIP 3V PELV+ AP/LAT RTon 10-02-2024 XR HIP 3V PELV+ AP/LAT RT * * *Final Report* * * DATE OF EXAM: Oct 02 2024 2:25PM [facility] 5352 - XR HIP 3V PELV+ AP/LAT RT / PROCEDURE REASON: multiple diagnoses * * * * Physician Interpretation * * * * EXAM(s): XR HIP 3V PELV+ AP/LAT LT, XR HIP 3V PELV+ AP/LAT RT HISTORY: Indication: Bilateral hip pain Bilateral hip pain Left hip pain (accession [id number]), Right hip pain (accession [id number]) TECHNIQUE: Images: XR HIP 3V PELV+ AP/LAT LT, XR HIP 3V PELV+ AP/LAT RT Comparison: None. RESULT: Findings: Findings: Mild degenerative changes L5-S1 level Pelvis: No fractures or dislocations are seen. Severe narrowing of both hip joints. Sacroiliac joints are patent. Mild narrowing of the pubic symphysis is seen. Left hip: No fractures or dislocations are seen. RIGHT hip : No fractures or dislocations are seen. IMPRESSION: Findings as discussed under Results portion of report. Bdr: FANY Transcribe Date/Time: Oct 02 2024 5:05P Dictated by : RICHARD MORFIN DO This examination was interpreted and the report reviewed and electronically signed by: RICHARD MORFIN DO on Oct 02 2024 5:06PM EST [id number] Normal [facility] XR Pelvis and Hip - left AP and Lateral frogon 10-02-2024 * * *Final Report* * * DATE OF EXAM: Oct 02 2024 2:25PM [facility] 5351 - XR HIP 3V PELV+ AP/LAT LT / PROCEDURE REASON: multiple diagnoses * * * * Physician Interpretation * * * * EXAM(s): XR HIP 3V PELV+ AP/LAT LT, XR HIP 3V PELV+ AP/LAT RT HISTORY: Indication: Bilateral hip pain Bilateral hip pain Left hip pain (accession [id number]), Right hip pain (accession [id number]) TECHNIQUE: Images: XR HIP 3V PELV+ AP/LAT LT, XR HIP 3V PELV+ AP/LAT RT Comparison: None. RESULT: Findings: Findings: Mild degenerative changes L5-S1 level Pelvis: No fractures or dislocations are seen. Severe narrowing of both hip joints. Sacroiliac joints are patent. Mild narrowing of the pubic symphysis is seen. Left hip: No fractures or dislocations are seen. RIGHT hip : No fractures or dislocations are seen. [facility] Provider, Cckerri Garcia [facility] - 10/02/2024 * * *Final Report* * * DATE OF EXAM: Oct 02 2024 2:25PM [facility] - XR HIP 3V PELV+ AP/LAT LT / PROCEDURE REASON: multiple diagnoses * * * * Physician Interpretation * * * * EXAM(s): XR HIP 3V PELV+ AP/LAT LT, XR HIP 3V PELV+ AP/LAT RT HISTORY: Indication: Bilateral hip pain Bilateral hip pain Left hip pain (accession [id number]), Right hip pain (accession [id number]) TECHNIQUE: Images: XR HIP 3V PELV+ AP/LAT LT, XR HIP 3V PELV+ AP/LAT RT Comparison: None. RESULT: Findings: Findings: Mild degenerative changes L5-S1 level Pelvis: No fractures or dislocations are seen. Severe narrowing of both hip joints. Sacroiliac joints are patent. Mild narrowing of the pubic symphysis is seen. Left hip: No fractures or dislocations are seen. RIGHT hip : No fractures or dislocations are seen. IMPRESSION IMPRESSION: Findings as discussed under Results portion of report. Bdr: [facility] Transcribe Date/Time: Oct 02 2024 5:05P Dictated by : RICHARD MORFIN DO This examination was interpreted and the report reviewed and electronically signed by: RICHARD MORFIN DO on Oct 02 2024 5:06PM [facility] XR Pelvis and Hip - right AP and Lateral frogon 10-02-2024 * * *Final Report* * * DATE OF EXAM: Oct 02 2024 2:25PM [facility] - XR HIP 3V PELV+ AP/LAT RT / PROCEDURE REASON: multiple diagnoses * * * * Physician Interpretation * * * * EXAM(s): XR HIP 3V PELV+ AP/LAT LT, XR HIP 3V PELV+ AP/LAT RT HISTORY: Indication: Bilateral hip pain Bilateral hip pain Left hip pain (accession [id number]), Right hip pain (accession [id number]) TECHNIQUE: Images: XR HIP 3V PELV+ AP/LAT LT, XR HIP 3V PELV+ AP/LAT RT Comparison: None. RESULT: Findings: Findings: Mild degenerative changes L5-S1 level Pelvis: No fractures or dislocations are seen. Severe narrowing of both hip joints. Sacroiliac joints are patent. Mild narrowing of the pubic symphysis is seen. Left hip: No fractures or dislocations are seen. RIGHT hip : No fractures or dislocations are seen. [facility] * * *Final Report* * * DATE OF EXAM: Oct 02 2024 2:25PM [facility] - XR HIP 3V PELV+ AP/LAT RT / PROCEDURE REASON: multiple diagnoses * * * * Physician Interpretation * * * * EXAM(s): XR HIP 3V PELV+ AP/LAT LT, XR HIP 3V PELV+ AP/LAT RT HISTORY: Indication: Bilateral hip pain Bilateral hip pain Left hip pain (accession [id number]), Right hip pain (accession [id number]) TECHNIQUE: Images: XR HIP 3V PELV+ AP/LAT LT, XR HIP 3V PELV+ AP/LAT RT Comparison: None. RESULT: Findings: Findings: Mild degenerative changes L5-S1 level Pelvis: No fractures or dislocations are seen. Severe narrowing of both hip joints. Sacroiliac joints are patent. Mild narrowing of the pubic symphysis is seen. Left hip: No fractures or dislocations are seen. RIGHT hip : No fractures or dislocations are seen. IMPRESSION IMPRESSION: Findings as discussed under Results portion of report. Bdr: FANY Transcribe Date/Time: Oct 02 2024 5:05P Dictated by : RICHARD MORFIN DO This examination was interpreted and the report reviewed and electronically signed by: RICHARD MORFIN DO on Oct 02 2024 5:06PM [facility] Abdomen Single Viewon 2023 Abdomen Single View [facility] [address] [place] [address] [id number] Abdomen Single View MR#: [id number] Acct: [id number] Name: OSEAS JOSEPH Rep #: [id number] : 1950 M 74 From: Jair Noble MD PCP: Dr. Connie Lugo MD Status: [facility] CL Study: Abdomen Single View Date of Exam: 09/12/24 Exam# [id number] Ordering Dr: Connie Lugo MD [id number] STUDY: X-RAY - ABDOMEN/PELVIS REASON FOR EXAM: Male, 74 years old. RIGHT FLANK PAIN TECHNIQUE: Single AP view of the abdomen / pelvis. COMPARISON: None. FINDINGS: Normal visualized lung bases. There is an unremarkable bowel gas pattern. The visualized liver, spleen and kidneys are grossly normal in size and morphology. Normal soft tissue structures. Normal visualized osseous structures. RAD/Abdomen Single View IMPRESSION: Normal x-ray examination of the abdomen and pelvis. Electronically Signed: Jair Noble MD at 13:23 EST , CC: Dr. Connie Lugo MD Bdr: Signed Normal [facility] Basic Metabolic Profile (BMP )on 09-12-2024 BUN/CRE 13.7 RATIO Normal 10-20 [facility] Comment on above: Performed By: #### L 501.080 #### [facility] [address] [place], [address] CA,Total 8.7 mg/dL Normal 8.5-10.1 [facility] Comment on above: Performed By: #### L 501.080 #### [facility] [address] [place], [address] Chloride [Moles/Vol] 108 mmol/L High 98-107 [facility] Comment on above: Performed By: #### L 501.080 #### [facility] [address] [place], [address] CO2 [Moles/Vol] 23.0 mmol/L Normal 21.0-32.0 [facility] Comment on above: Performed By: #### L 501.080 #### [facility] [address] [place], [address] Creatinine [Mass/Vol] 1.39 mg/dL High 0.70-1.30 [facility] Comment on above: Result Comment: The validity of the calculated GFR GFRAA in patients over 70 years has not been determined. Clinical correlation is essential. Performed By: #### L 501.080 #### [facility] [address] [place], [address] EST GFR - AA 65 mL/min Normal >60 [facility] Comment on above: Result Comment: Afri can Greek GFR Calc Performed By: #### L 501.080 #### [facility] [address] [place], [address] GAP 6 Normal 5-15 [facility] Comment on above: Performed By: #### L 501.080 #### [facility] [address] [place], [address] GFR/1.73 sq M.predicted among non-blacks MDRD (S/P/Bld) [Vol rate/Area] 53 mL/min/{1.73_m2} Low >60 [facility] Comment on above: Result Comment: Non- GFR Calc Performed By: #### L 501.080 #### [facility] [address] [place], [address] Glucose [Mass/Vol] 138 mg/dL High 74-106 [facility] Comment on above: Result Comment: Fast ing Glucose result greater than or equal to 126 mg/dL suggests DIABETES MELLITUS per A.D.A. criteria. Performed By: #### L 501.080 #### [facility] [address] [place], [address] Potassium [Moles/Vol] 4.1 mmol/L Normal 3.5-5.1 [facility] Comment on above: Performed By: #### L 501.080 #### [facility] [address] [place], [address] Sodium [Moles/Vol] 137 mmol/L Normal 136-145 [facility] Comment on above: Performed By: #### L 501.080 #### [facility] [address] [place], [address] Urea nitrogen [Mass/Vol] 19 mg/dL High 7-18 [facility] Comment on above: Performed By: #### L 501.080 #### [facility] [address] [place], [address] CBC W/Diff, Automatedon 11-2 Absolute Lymph 0.85 X10 3/uL Normal 0.83-4.51 [facility] Comment on above: Performed By: #### L 501.080 #### [facility] [address] [place], [address] Absolute Neut 2.7 X10 3/uL Normal 2.0-7.7 [facility] Comment on above: Performed By: #### L 501.080 #### [facility] [address] [place], [address] Basophils/100 WBC (Bld) 0.9 % Normal 0-1 [facility] Comment on above: Performed By: #### L 501.080 #### [facility] [address] [place], [address] Eosinophils/100 WBC (Bld) 5.7 % High 0-5 [facility] Comment on above: Performed By: #### L 501.080 #### [facility] [address] [place], [address] Erythrocyte distribution width (RBC) [Ratio] 14.5 % Normal 11.6-14.6 [facility] Comment on above: Performed By: #### L 501.080 #### [facility] [address] [place], [address] Hematocrit (Bld) [Volume fraction] 39.0 % Low 40-54 [facility] Comment on above: Performed By: #### L 501.080 #### [facility] [address] [place], [address] Hemoglobin (Bld) [Mass/Vol] 12.7 g/dL Low 13.0-16.5 [facility] Comment on above: Performed By: #### L 501.080 #### [facility] [address] [place], [address] IG% 0.200 Normal 0.0-0.9 [facility] Comment on above: Result Comment: IG% - Immature Granulocytes (promyelocytes, myelocytes and metamyelocytes) > 1% indicates that a LEFT SHIFT is Present. Performed By: #### L 501.080 #### [facility] [address] [place], [address] Lymphocytes/100 WBC (Bld) 19.5 % Normal 19-41 [facility] Comment on above: Performed By: #### L 501.080 #### [facility] [address] [place], [address] MCH (RBC) [Entitic mass] 31.5 pg Normal 27.0-32.0 [facility] Comment on above: Performed By: #### L 501.080 #### [facility] [address] [place], [address] MCHC (RBC) [Mass/Vol] 32.6 g/dL Normal 32-36 [facility] Comment on above: Performed By: #### L 501.080 #### [facility] [address] [place], [address] MCV (RBC) [Entitic vol] 96.8 fL High 80-94 [facility] Comment on above: Performed By: #### L 501.080 #### [facility] [address] [place], [address] Monocytes/100 WBC (Bld) 11.0 % High 0-10 [facility] Comment on above: Performed By: #### L 501.080 #### [facility] [address] [place], [address] Neutrophils/100 WBC (Bld) 62.7 % Normal 47-70 [facility] Comment on above: Performed By: #### L 501.080 #### [facility] [address] [place], [address] Nucleated RBC (Bld) [#/Vol] 0 10*3/uL Normal 0-5 [facility] Comment on above: Performed By: #### L 501.080 #### [facility] [address] [place], [address] Platelet mean volume (Bld) [Entitic vol] 10.7 fL Normal 6.2-12.0 [facility] Comment on above: Performed By: #### L 501.080 #### [facility] [address] [place], [address] Platelets (Bld) [#/Vol] 158 10*3/uL Normal 150-450 [facility] Comment on above: Performed By: #### L 501.080 #### [facility] [address] [place], [address] RBC (Bld) [#/Vol] 4.03 10*6/uL Low 4.6-6.2 [facility] Comment on above: Performed By: #### L 501.080 #### [facility] [address] [place], [address] RDW SD 51.6 fl High 35.1-43.9 [facility] Comment on above: Performed By: #### L 501.080 #### [facility] [address] [place], [address] WBC (Bld) [#/Vol] 4.4 10*3/uL Normal 4.4-11.0 [facility] Comment on above: Performed By: #### L 501.080 #### [facility] [address] [place], [address] B2 Microglob SerPl-mCncon Tiem-9-Raemxbgtautmy [Mass/Vol] 2.2 ug/mL Normal <3.1 [facility] Comment on above: Order Comment: Speci men Type: BLOOD SPECIMENOrdering Facility: [facility] Address: [address] [place] [address] Result Comment: Beta -2 Microglobulin test is performed using the [employer] immunoturbidimetric method. Results obtained with different methods or kits cannot be used interchangeably. Performed By: #### 1 952-1, 2885-2 ####[facility] [id number] [place] [address] [place] CBC W Auto Differential pane l (Bld)on 08-22-2024 Basophils (Bld) [#/Vol] 0.05 10*3/uL Normal <0.11 [facility] Comment on above: Order Comment: Speci men Type: BLOOD SPECIMEN Ordering Facility: [facility] Address: [address] [place] [address] Performed By: #### 2 532-0 #### [facility] CLIA [id number] [address] [place] [address] [place] Basophils/100 WBC (Bld) 1.7 % Normal [facility] Comment on above: Order Comment: Speci men Type: BLOOD SPECIMEN Ordering Facility: [facility] Address: [address] [place] [address] Performed By: #### 2 532-0 #### [facility] CLIA [id number] [address] [place] [address] [place] Differential cell count method Nom (Bld) Auto Normal [facility] Comment on above: Order Comment: Speci men Type: BLOOD SPECIMEN Ordering Facility: [facility] Address: [address] [place] [address] Performed By: #### 2 532-0 #### [facility] CLIA [id number] [address] [place] [address] [place] Eosinophils (Bld) [#/Vol] 0.31 10*3/uL Normal <0.46 [facility] Comment on above: Order Comment: Speci men Type: BLOOD SPECIMEN Ordering Facility: [facility] Address: [address] [place] [address] Performed By: #### 2 532-0 #### [facility] CLIA [id number] [address] [place] [address] [place] Eosinophils/100 WBC (Bld) 10.8 % Normal [facility] Comment on above: Order Comment: Speci men Type: BLOOD SPECIMEN Ordering Facility: [facility] Address: [address] [place] [address] Performed By: #### 2 532-0 #### [facility] CLIA [id number] [address] [place] [address] [place] Erythrocyte distribution width (RBC) [Ratio] 14.0 % Normal 11.5-15.0 [facility] Comment on above: Order Comment: Speci men Type: BLOOD SPECIMEN Ordering Facility: [facility] Address: [address] [place] [address] Performed By: #### 2 532-0 #### [facility] CLIA [id number] [address] [place] [address] [place] Hematocrit (Bld) [Volume fraction] 39.1 % Normal 39.0-51.0 [facility] Comment on above: Order Comment: Speci men Type: BLOOD SPECIMEN Ordering Facility: [facility] Address: [address] [place] [address] Performed By: #### 2 532-0 #### [facility] CLIA [id number] [address] [place] [address] [place] Hemoglobin (Bld) [Mass/Vol] 12.8 g/dL Low 13.0-17.0 [facility] Comment on above: Order Comment: Speci men Type: BLOOD SPECIMEN Ordering Facility: [facility] Address: [address] [place] [address] Performed By: #### 2 532-0 #### [facility] CLIA [id number] [address] [place] [address] [place] Immature granulocytes (Bld) [#/Vol] 10*3/uL Normal <0.10 [facility] Comment on above: Order Comment: Speci men Type: BLOOD SPECIMEN Ordering Facility: [facility] Address: [address] [place] [address] Performed By: #### 2 532-0 #### [facility] CLIA [id number] [address] [place] [address] [place] Immature granulocytes/100 WBC (Bld) 0.0 % Normal [facility] Comment on above: Order Comment: Speci men Type: BLOOD SPECIMEN Ordering Facility: [facility] Address: [address] [place] [address] Performed By: #### 2 532-0 #### [facility] CLIA [id number] [address] [place] [address] [place] Lymphocytes (Bld) [#/Vol] 0.79 10*3/uL Low 1.00-4.00 [facility] Comment on above: Order Comment: Speci men Type: BLOOD SPECIMEN Ordering Facility: [facility] Address: [address] [place] [address] Performed By: #### 2 532-0 #### [facility] CLIA [id number] [address] [place] [address] [place] Lymphocytes/100 WBC (Bld) 27.5 % Normal [facility] Comment on above: Order Comment: Speci men Type: BLOOD SPECIMEN Ordering Facility: [facility] Address: [address] [place] [address] Performed By: #### 2 532-0 #### [facility] CLIA [id number] [address] [place] [address] [place] MCH (RBC) [Entitic mass] 31.1 pg Normal 26.0-34.0 [facility] Comment on above: Order Comment: Speci men Type: BLOOD SPECIMEN Ordering Facility: [facility] Address: [address] [place] [address] Performed By: #### 2 532-0 #### [facility] CLIA [id number] [address] [place] [address] [place] MCHC (RBC) [Mass/Vol] 32.7 g/dL Normal 30.5-36.0 [facility] Comment on above: Order Comment: Speci men Type: BLOOD SPECIMEN Ordering Facility: [facility] Address: [address] [place] [address] Performed By: #### 2 532-0 #### [facility] CLIA [id number] [address] [place] [address] [place] MCV (RBC) [Entitic vol] 94.9 fL Normal 80.0-100.0 [facility] Comment on above: Order Comment: Speci men Type: BLOOD SPECIMEN Ordering Facility: [facility] Address: [address] [place] [address] Performed By: #### 2 532-0 #### [facility] CLIA [id number] [address] [place] [address] [place] Monocytes (Bld) [#/Vol] 0.41 10*3/uL Normal <0.87 [facility] Comment on above: Order Comment: Speci men Type: BLOOD SPECIMEN Ordering Facility: [facility] Address: [address] [place] [address] Performed By: #### 2 532-0 #### [facility] CLIA [id number] [address] [place] [address] [place] Monocytes/100 WBC (Bld) 14.3 % Normal [facility] Comment on above: Order Comment: Speci men Type: BLOOD SPECIMEN Ordering Facility: [facility] Address: [address] [place] [address] Performed By: #### 2 532-0 #### [facility] CLIA [id number] [address] [place] [address] [place] Neutrophils (Bld) [#/Vol] 1.31 10*3/uL Low 1.45-7.50 [facility] Comment on above: Order Comment: Speci men Type: BLOOD SPECIMEN Ordering Facility: [facility] Address: [address] [place] [address] Performed By: #### 2 532-0 #### [facility] CLIA [id number] [address] [place] [address] [place] Neutrophils/100 WBC (Bld) 45.7 % Normal [facility] Comment on above: Order Comment: Speci men Type: BLOOD SPECIMEN Ordering Facility: [facility] Address: [address] [place] [address] Performed By: #### 2 532-0 #### [facility] CLIA [id number] [address] [place] [address] [place] Nucleated RBC (Bld) [#/Vol] 10*3/uL Normal <0.01 [facility] Comment on above: Order Comment: Speci men Type: BLOOD SPECIMEN Ordering Facility: [facility] Address: [address] [place] [address] Performed By: #### 2 532-0 #### [facility] CLIA [id number] [address] [place] [address] [place] Nucleated RBC/100 WBC (Bld) [Ratio] 0.0 /100 WBC Normal [facility] Comment on above: Order Comment: Speci men Type: BLOOD SPECIMEN Ordering Facility: [facility] Address: [address] [place] [address] Performed By: #### 2 532-0 #### [facility] CLIA [id number] [address] [place] [address] [place] Platelet mean volume (Bld) [Entitic vol] 9.6 fL Normal 9.0-12.7 [facility] Comment on above: Order Comment: Speci men Type: BLOOD SPECIMEN Ordering Facility: [facility] Address: [address] [place] [address] Performed By: #### 2 532-0 #### [facility] CLIA [id number] [address] [place] [address] [place] Platelets (Bld) [#/Vol] 164 10*3/uL Normal 150-400 [facility] Comment on above: Order Comment: Speci men Type: BLOOD SPECIMEN Ordering Facility: [facility] Address: [address] [place] [address] Performed By: #### 2 532-0 #### [facility] CLIA [id number] [address] [place] [address] [place] RBC (Bld) [#/Vol] 4.12 10*6/uL Low 4.20-6.00 [facility] Comment on above: Order Comment: Speci men Type: BLOOD SPECIMEN Ordering Facility: [facility] Address: [address] [place] [address] Performed By: #### 2 532-0 #### [facility] CLIA [id number] [address] [place] [address] [place] WBC (Bld) [#/Vol] 2.87 10*3/uL Low 3.70-11.00 [facility] Comment on above: Order Comment: Speci men Type: BLOOD SPECIMEN Ordering Facility: [facility] Address: [address] [place] [address] Performed By: #### 2 532-0 #### [facility] CLIA [id number] [address] [place] [address] [place] CNOVSPon 08-22-2024 CNOVSP Visit (SP) Office (HEMAWS) -------- JAKEOSEAS ([id number]) 1950 M BONE MAR* Date Time Provider Department 08/22/24 9:30 AM CONNIE MCCAIN During your visit today, we recorded the following information about you: Temperature Pulse Blood pressure Weight 98.9 degrees 68/minute 120/70 83.9 kg Connie Mccain DO 08/22/2024 9:45 AM Signed Oncologic problem(s): 1) IgG lambda multiple myeloma. HPI: The patient is a 74-year-old male with a past medical history significant for type 2 diabetes, high cholesterol, hypertension and right bundle branch block. Patient originally presented to the emergency room at [facility] on 04/19/2022 with new onset of confusion that day which had been worsening. Laboratory work-up significant for hypokalemia. CT of the brain was unremarkable. He was admitted. During hospitalization it was noted that he had been having diarrhea for 6 to 8 weeks. Stool studies were positive for Campylobacter, blood and lactoferrin. C. difficile was negative. CT of the abdomen pelvis on 04/21/2022 noted abnormal pericholecystic edema without gallstones. Renal cysts and colonic diverticulosis were noted. He was found to have elevation of sed rate to 39, CRP 134. His albumin was 2.3. IgA low at 37. He was discharged on azithromycin, potassium and magnesium supplement. He was seen in the outpatient setting for follow-up visit on 07/11/2022. He continued to have one episode of explosive diarrhea daily. This had been going on for about 8 months. CBC on 07/11 showed a white count of 6400. Differential was normal. Hemoglobin 14.9 g/dL. Platelet count 275,000. Chemistries significant for creatinine of 1.29 g/dL. Previously 1.13 g/dL on 04/27/2022. Calcium was 9.3 mg/dL. Total bilirubin, AST, ALT and alkaline phosphatase were normal. LDH was 181. C-reactive protein was less than 2.09. Total protein was 8.8 g/dL. Total IgG was 2462 mg/dL. IgA decreased to 28 mg/dL. IgM normal at 32 mg/dL. On protein electrophoresis, patient was found to have 2M spikes both IgG lambda by immunofixation. For spike was quantitated at 1.2 g/dL and the second was quantitated at 0.6 g/dL. Cytoplasmic and perinuclear ANCA both negative. Atypical p-ANCA negative. Patient described diarrhea as loose, eran stools sometimes explosive typically one bowel movement per day however. He had not observed any blood. Had a colonoscopy December [address] Arteaga. His appetite was normal. He had not lost weight. Denied reflux and nausea. He did get abdominal bloating associated with the diarrhea. He denied musculoskeletal pain. He denied symptoms of sensory neuropathy. He sees an team supervisor once a year for dilated exam. He has not been told he has retinopathy. Recent removal of early melanoma back. Blue nevus right ankle--required WLE--scheduled. PMR--about 15 years ago. - Patient underwent colonoscopy on 09/21/2022. Preparation of the colon was fair. -One 6 mm polyp at the ileocecal valve, removed with a hot snare. Resected and retrieved. -One 5 mm polyp in the ascending colon, removed with a hot snare. Resected and retrieved. -Congested mucosa in the descending colon, at the splenic flexure, in the ascending colon and in the cecum. Biopsied. -Diverticulosis in the recto-sigmoid colon, in the sigmoid colon and in the descending colon. -Stool in the rectum, in the sigmoid colon, in the descending colon and at the hepatic flexure. Fluid aspiration performed. -The examined portion of the ileum was normal. Biopsied. Pathology: A. Ileocecal valve polyp, biopsy: -Consistent with fibrolipomatous polyp. -See comment. B. Small bowel, biopsy: -No pathologic change. C. Cecum, biopsy: -Mild melanosis coli. D. Colon, random biopsy: -Mild melanosis coli. E. Ascending colon polyp, biopsy: -Fragments of tubular adenoma. B, C, D AND E - No congophilic material identified. Congo red stain with matched control is negative. ADDENDUM C AND D. No congophilic material is noted in these biopsies on light and polarized microscopy. [place] Red stain with matched control was used in the evaluation of this case. He was diagnosed with pancreatic insufficiency and was to start pancreatic enzyme replacement. Patient had a venous duplex ultrasound on 12/16/2022 for right leg pain. That study demonstrated no evidence of DVT in the right leg. He developed chest pain and increasing shortness of breath. Went to the ED on 01/16/2023. PE protocol chest CT demonstrated multiple bilateral pulmonary emboli involving the distal portion of both the right and left main pulmonary arteries as well as branches of the upper and lower lobe pulmonary arteries, more prominent on the right side. Platelet count was 67,000. Patient was admitted and placed on unfractionated heparin wi (more content not included)... Normal [facility] Comprehensive metabolic 2000 panelon 08-22-2024 Albumin [Mass/Vol] 4.0 g/dL Normal 3.9-4.9 [facility] Comment on above: Order Comment: Speci men Type: BLOOD SPECIMENOrdering Facility: [facility] Address: [address] [place], [place] [address] Performed By: #### 2 4323-8 ####[facility] [id number] [place] [address] [place] [facility] ALP [Catalytic activity/Vol] 51 U/L Normal 38-113 [facility] Comment on above: Order Comment: Speci men Type: BLOOD SPECIMENOrdering Facility: [facility] Address: [address] [place] [address] Performed By: #### 2 4323-8 ####[facility] [id number] [place] [address] [place] ALT [Catalytic activity/Vol] 12 U/L Normal 10-54 [facility] Comment on above: Order Comment: Speci men Type: BLOOD SPECIMENOrdering Facility: [facility] Address: [address] [place] [address] Performed By: #### 2 4323-8 ####[facility] NOLAN MILLTOWNCLIA [id number] [place] [address] [place] Anion gap [Moles/Vol] 10 mmol/L Normal 8-15 [facility] Comment on above: Order Comment: Speci men Type: BLOOD SPECIMENOrdering Facility: [facility] Address: [address] [place] [address] Performed By: #### 2 4323-8 ####[facility] MILLWNCLIA [id number] [place] [address] [place] AST [Catalytic activity/Vol] 16 U/L Normal 14-40 [facility] Comment on above: Order Comment: Speci men Type: BLOOD SPECIMENOrdering Facility: [facility] Address: [address] [place] [address] Performed By: #### 2 4323-8 ####[facility] MILLTOWNCLIA [id number] [place] [address] [place] Bilirubin [Mass/Vol] 0.7 mg/dL Normal 0.2-1.3 [facility] Comment on above: Order Comment: Speci men Type: BLOOD SPECIMENOrdering Facility: [facility] Address: [address] [place] [address] Performed By: #### 2 4323-8 ####[facility] MILLTOWNCLIA [id number] [place] [address] [place] Calcium [Mass/Vol] 8.6 mg/dL Normal 8.5-10.2 [facility] Comment on above: Order Comment: Speci men Type: BLOOD SPECIMENOrdering Facility: [facility] Address: [address] [place] [address] Performed By: #### 2 4323-8 ####[facility] [id number] [place] [address] [place] Chloride [Moles/Vol] 110 mmol/L High 98-107 [facility] Comment on above: Order Comment: Speci men Type: BLOOD SPECIMENOrdering Facility: [facility] Address: [address] [place] [address] Performed By: #### 2 4323-8 ####[facility] [id number] [place] [address] [place] CO2 [Moles/Vol] 19 mmol/L Low 22-30 [facility] Comment on above: Order Comment: Speci men Type: BLOOD SPECIMENOrdering Facility: [facility] Address: [address] [place] [address] Performed By: #### 2 4323-8 ####[facility] [id number] [place] [address] [place] Creatinine [Mass/Vol] 1.51 mg/dL High 0.73-1.22 [facility] Comment on above: Order Comment: Speci men Type: BLOOD SPECIMENOrdering Facility: [facility] Address: [address] [place] [address] Performed By: #### 2 4323-8 ####[facility] [id number] [place] [address] [place] Creatinine and Glomerular filtration rate.predicted panel (S/P/Bld) 49 mL/min/1.73m??? Low >=60 [facility] Comment on above: Order Comment: Speci men Type: BLOOD SPECIMENOrdering Facility: [facility] Address: [address] [place] [address] Result Comment: Ct mated Glomerular Filtration Rate (eGFR) is calculated using the 2020 CKD-EPI creatinine equation. This equation utilizes serum creatinine, sex, and age as parameters. The creatinine assay has traceable calibration to isotope dilution-mass spectrometry. Refer to KDIGO guidelines for clinical interpretation. In patients with unstable renal function, e.g. those with acute kidney injury, the eGFR may not accurately reflect actual GFR. Performed By: #### 2 4323-8 ####[facility] [id number] [place] [address] [place] Glucose [Mass/Vol] 120 mg/dL High 74-99 [facility] Comment on above: Order Comment: Speci men Type: BLOOD SPECIMENOrdering Facility: [facility] Address: [address] [place] [address] Result Comment: The [place] Diabetes Association (ADA) provides guidance for cutoff values for fasting glucose and random glucose. The ADA defines fasting as no caloric intake for at least 8 hours. Fasting plasma glucose results between 100 to 125 mg/dL indicate increased risk for diabetes (prediabetes). Fasting plasma glucose results greater than or equal to 126 mg/dL meet the criteria for diagnosis of diabetes. In the absence of unequivocal hyperglycemia, results should be confirmed by repeat testing. In a patient with classic symptoms of hyperglycemia or hyperglycemic crisis, random plasma glucose results greater than or equal to 200 mg/dL meet the criteria for diagnosis of diabetes. Reference: Standards of Medical Care in Diabetes 2016, [place] Diabetes Association. Diabetes Care. 2016.39(Suppl 1). Performed By: #### 2 4323-8 ####[facility] [id number] [place] [address] [place] Potassium [Moles/Vol] 4.5 mmol/L Normal 3.7-5.1 [facility] Comment on above: Order Comment: Jessica cesar Type: BLOOD SPECIMENOrdering Facility: [facility] Address: [address] [place] [address] Performed By: #### 2 4323-8 ####[facility] [id number] [place] [address] [place] Protein [Mass/Vol] 6.4 g/dL Normal 6.3-8.0 [facility] Comment on above: Order Comment: Speci men Type: BLOOD SPECIMENOrdering Facility: [facility] Address: [address] [place] [address] Performed By: #### 2 4323-8 ####[facility] [id number] [place] [address] [place] Sodium [Moles/Vol] 139 mmol/L Normal 136-144 [facility] Comment on above: Order Comment: Speci men Type: BLOOD SPECIMENOrdering Facility: [facility] Address: [address] [place] [address] Performed By: #### 2 4323-8 ####[facility] [id number] [place] [address] [place] Urea nitrogen [Mass/Vol] 25 mg/dL High 9-24 [facility] Comment on above: Order Comment: Speci men Type: BLOOD SPECIMENOrdering Facility: [facility] Address: [address] [place] [address] Performed By: #### 2 4323-8 ####[facility] [id number] [place] [address] [place] IMMUNOGLOBULINS,IGG,IGA,IGMo n 08-22-2024 IgA [Mass/Vol] 74 mg/dL Normal 70-400 [facility] Comment on above: Order Comment: Speci men Type: BLOOD SPECIMENOrdering Facility: [facility] Address: [address] [place] [address] Performed By: #### S ERIMM ####[facility] LABCLIA [id number] [facility] [id number] [address] [place] IgG [Mass/Vol] 1027 mg/dL Normal 700-1600 [facility] Comment on above: Order Comment: Speci men Type: BLOOD SPECIMENOrdering Facility: [facility] Address: [address] [place] [address] Performed By: #### S ERIMM ####[facility] LABCLIA [id number] [place] [address] [place] IgM [Mass/Vol] 15 mg/dL Low 40-230 [facility] Comment on above: Order Comment: Speci men Type: BLOOD SPECIMENOrdering Facility: [facility] Address: [address] [place] [address] Performed By: #### S ERIMM ####[facility] LABIA [id number] [place] [address] [place] KAPPA/SUAZO,FREE,SERon 2023 Immunoglobulin light chains.kappa.free (S) [Mass/Vol] 25.2 mg/L High 3.3-19.4 [facility] Comment on above: Order Comment: Speci men Type: BLOOD SPECIMENOrdering Facility: [facility] Address: [address] [place] [address] Result Comment: Rare ly, increased serum free light chains levels may not be detected or accurately quantified due to prozone phenomenon or in high viscosity samples using this immunoturbidimetric assay. Correlation with other laboratory results and clinical findings is recommended. The [place] Free Light Chain was performed using the Binding Site [employer] immunoturbidimetric method. Result obtained with different assay methods or kits cannot be used interchangeably. Performed By: #### K LFRS ####[facility] LABIA [id number] [place] [address] [place] Immunoglobulin light chains.kappa/Immunoglo bulin light chains.lambda (S) [Mass ratio] 1.61 Normal 0.26-1.65 [facility] Comment on above: Order Comment: Speci men Type: BLOOD SPECIMENOrdering Facility: [facility] Address: [address] [place] [address] Performed By: #### K LFRS ####[facility]IA [id number] [place] [address] [place] Immunoglobulin light chains.lambda.free [Mass/Vol] 15.7 mg/L Normal 5.7-26.3 [facility] Comment on above: Order Comment: Speci men Type: BLOOD SPECIMENOrdering Facility: [facility] Address: [address] [place] [address] Result Comment: Rare ly, increased serum free light chains levels may not be detected or accurately quantified due to prozone phenomenon or in high viscosity samples using this immunoturbidimetric assay. Correlation with other laboratory results and clinical findings is recommended. The Lambda Free Light Chain was performed using the Binding Site [employer] immunoturbidimetric method. Result obtained with different assay methods or kits cannot be used interchangeably. Performed By: #### K LFRS ####[facility] LABCLIA [id number] [place] [address] [place] LDH SerPl-cCncon 08-22-2024 LDH [Catalytic activity/Vol] 147 U/L Normal 135-225 [facility] Comment on above: Order Comment: Speci men Type: BLOOD SPECIMEN Ordering Facility: [facility] Address: [address] [place] [address] Performed By: #### 2 532-0 #### [facility] CLIA [id number] [address] [place] [address] [place] Prot 24h Ur-mRateon 08-22-20 24 Protein (24H U) [Mass/Time] 0.22 g/24 Hr High <0.15 [facility] Comment on above: Order Comment: Speci men Type: URINE SPECIMENOrdering Facility: [facility] Address: [address] [place] [address] Result Comment: Adul t Proteinuria Categories: <0.15 g/24 hours is considered normal to mildly increased 0.15 - 0.50 g/24 hours is considered moderately increased >0.50 g/24 hours is considered severely increased KDIGO. (2013). KDIGO 2012 Clinical Practice Guideline for the Evaluation and Management of Chronic Kidney Disease. Official Journal of the International Society of Nephrology, 3(1), 1-150. Performed By: #### 2 889-4 ####[facility] LABCLIA [id number] [place] [id number] [facility]AN[facility]ITALNCA [id number] [place] [address] [place] Prot SerPl-mCncon 08-22-2024 Protein [Mass/Vol] 6.2 g/dL Low 6.3-8.0 [facility] Comment on above: Order Comment: Speci men Type: BLOOD SPECIMENOrdering Facility: [facility] Address: [address] [place] [address] Performed By: #### 1 952-1, 2885-2 ####[facility] LABCLIA [id number] [place] [address] [place] Prot Ur-mCncon 08-22-2024 Protein (U) [Mass/Vol] 14 mg/dL Normal 0-20 [facility] Comment on above: Order Comment: Speci men Type: URINE SPECIMENOrdering Facility: [facility] Address: [address] [place] [address] Performed By: #### 2 888-6 ####[facility] LABIA [id number] [place] [address] [place] Protein (24H U) [Mass/Time]o n 08-22-2024 PERIOD (HRS) 24 hr Normal [facility] Comment on above: Order Comment: Speci men Type: URINE SPECIMENOrdering Facility: [facility] Address: [address] [place] [address] Performed By: #### 2 889-4 ####[facility] LABIA [id number] [address] [id number] [place] [address] [place] Specimen volume (24H U) 1.35 L Normal [facility] Comment on above: Order Comment: Speci men Type: URINE SPECIMENOrdering Facility: [facility] Address: [address] [place] [address] Performed By: #### 2 889-4 ####[facility] LABCLIA [id number] [place] [address] [place] [facility] [id number] [place] [address] [place] B2 Microglob SerPl-mCncon Vwzm-9-Edkofmqtsffjf [Mass/Vol] 2.4 ug/mL Normal <3.1 [facility] Comment on above: Order Comment: Speci men Type: BLOOD SPECIMENOrdering Facility: [facility] Address: [address] [place] [address] Result Comment: Beta -2 Microglobulin test is performed using the [employer] immunoturbidimetric method. Results obtained with different methods or kits cannot be used interchangeably. Performed By: #### 1 952-1, 2885-2 ####[facility] LABCLIA [id number] [place] [address] [place] CBC W Auto Differential pane l (Bld)on 07-25-2024 Basophils (Bld) [#/Vol] 0.04 10*3/uL Normal <0.11 [facility] Comment on above: Order Comment: Speci men Type: BLOOD SPECIMEN [facility] [facility] Address: [address] [place] [address] Performed By: #### 5 7021-8 #### [facility] CLIA [id number] [address] [place] [address] [place] Basophils/100 WBC (Bld) 1.2 % Normal [facility] Comment on above: Order Comment: Speci men Type: BLOOD SPECIMEN Ordering Facility: [facility] Address: [address] [place] [address] Performed By: #### 5 7021-8 #### [facility] CLIA [id number] [address] [place] [address] [place] Differential cell count method Nom (Bld) Auto Normal [facility] Comment on above: Order Comment: Speci men Type: BLOOD SPECIMEN Ordering Facility: [facility] Address: [address] [place], [place] [address] Performed By: #### 5 7021-8 #### [facility] CLIA [id number] [address] [place] [address] [place] Eosinophils (Bld) [#/Vol] 0.41 10*3/uL Normal <0.46 [facility] Comment on above: Order Comment: Speci men Type: BLOOD SPECIMEN Ordering Facility: [facility] Address: [address] [place] [address] Performed By: #### 5 7021-8 #### [id number] [address] [place] [address] [place] Eosinophils/100 WBC (Bld) 12.7 % Normal [facility] Comment on above: Order Comment: Speci men Type: BLOOD SPECIMEN Ordering Facility: [facility] Address: [address] [place] [address] Performed By: #### 5 7021-8 #### [facility] CLIA [id number] [address] [place] [address] [place] Erythrocyte distribution width (RBC) [Ratio] 14.1 % Normal 11.5-15.0 [facility] Comment on above: Order Comment: Speci men Type: BLOOD SPECIMEN Ordering Facility: [facility] Address: [address] [place] [address] Performed By: #### 5 7021-8 #### [facility] [id number] [address] [place] [address] [place] Hematocrit (Bld) [Volume fraction] 38.2 % Low 39.0-51.0 [facility] Comment on above: Order Comment: Speci men Type: BLOOD SPECIMEN Ordering Facility: [facility] Address: [address] [place], [place] [address] Performed By: #### 5 7021-8 #### [facility] CLIA [id number] [address] [place] [address] [place] Hemoglobin (Bld) [Mass/Vol] 12.7 g/dL Low 13.0-17.0 [facility] Comment on above: Order Comment: Speci men Type: BLOOD SPECIMEN Ordering Facility: [facility] Address: [address] [place], [place] [address] Performed By: #### 5 7021-8 #### [facility] CLIA [id number] [address] [place] [address] [place] Immature granulocytes (Bld) [#/Vol] 10*3/uL Normal <0.10 [facility] Comment on above: Order Comment: Speci men Type: BLOOD SPECIMEN Ordering Facility: [facility] Address: [address] [place] [address] Performed By: #### 5 7021-8 #### [facility] CLIA [id number] [address] [place] [address] [place] Immature granulocytes/100 WBC (Bld) 0.6 % Normal [facility] Comment on above: Order Comment: Speci men Type: BLOOD SPECIMEN Ordering Facility: [facility] Address: [address] [place] [address] Performed By: #### 5 7021-8 #### [facility] CLIA [id number] [address] [place] [address] [place] Lymphocytes (Bld) [#/Vol] 0.96 10*3/uL Low 1.00-4.00 [facility] Comment on above: Order Comment: Speci men Type: BLOOD SPECIMEN Ordering Facility: [facility] Address: [address] [place] [address] Performed By: #### 5 7021-8 #### [facility] CLIA [id number] [address] [place] [address] [place] Lymphocytes/100 WBC (Bld) 29.7 % Normal [facility] Comment on above: Order Comment: Speci men Type: BLOOD SPECIMEN Ordering Facility: [facility] Address: [address] [place] [address] Performed By: #### 5 7021-8 #### [facility] CLIA [id number] [address] [place] [address] [place] MCH (RBC) [Entitic mass] 31.1 pg Normal 26.0-34.0 [facility] Comment on above: Order Comment: Speci men Type: BLOOD SPECIMEN Ordering Facility: [facility] Address: [address] [place] [address] Performed By: #### 5 7021-8 #### [facility] CLIA [id number] [address] [place] [address] [place] MCHC (RBC) [Mass/Vol] 33.2 g/dL Normal 30.5-36.0 [facility] Comment on above: Order Comment: Speci men Type: BLOOD SPECIMEN Ordering Facility: [facility] Address: [address] [place] [address] Performed By: #### 5 7021-8 #### [facility] CLIA [id number] [address] [place] [address] [place] MCV (RBC) [Entitic vol] 93.6 fL Normal 80.0-100.0 [facility] Comment on above: Order Comment: Speci men Type: BLOOD SPECIMEN Ordering Facility: [facility] Address: [address] [place] [address] Performed By: #### 5 7021-8 #### [facility] CLIA [id number] [address] [place] [address] [place] Monocytes (Bld) [#/Vol] 0.43 10*3/uL Normal <0.87 [facility] Comment on above: Order Comment: Speci men Type: BLOOD SPECIMEN Ordering Facility: [facility] Address: [address] [place] [address] Performed By: #### 5 7021-8 #### [facility] CLIA [id number] [address] [place] [address] [place] Monocytes/100 WBC (Bld) 13.3 % Normal [facility] Comment on above: Order Comment: Speci men Type: BLOOD SPECIMEN Ordering Facility: [facility] Address: [address] [place] [address] Performed By: #### 5 7021-8 #### [facility] CLIA [id number] [address] [place] [address] [place] Neutrophils (Bld) [#/Vol] 1.37 10*3/uL Low 1.45-7.50 [facility] Comment on above: Order Comment: Speci men Type: BLOOD SPECIMEN Ordering Facility: [facility] Address: [address] [place] [address] Performed By: #### 5 7021-8 #### [facility] CLIA [id number] [address] [place] [address] [place] Neutrophils/100 WBC (Bld) 42.5 % Normal [facility] Comment on above: Order Comment: Speci men Type: BLOOD SPECIMEN Ordering Facility: [facility] Address: [address] [place] [address] Performed By: #### 5 7021-8 #### [facility] CLIA [id number] [address] [place] [address] [place] Nucleated RBC (Bld) [#/Vol] 10*3/uL Normal <0.01 [facility] Comment on above: Order Comment: Speci men Type: BLOOD SPECIMEN Ordering Facility: [facility] Address: [address] [place] [address] Performed By: #### 5 7021-8 #### [facility] CLIA [id number] [address] [place] [address] [place] Nucleated RBC/100 WBC (Bld) [Ratio] 0.0 /100 WBC Normal [facility] Comment on above: Order Comment: Speci men Type: BLOOD SPECIMEN Ordering Facility: [facility] Address: [address] [place] [address] Performed By: #### 5 7021-8 #### [facility] CLIA [id number] [address] [place] [address] [place] Platelet mean volume (Bld) [Entitic vol] 9.5 fL Normal 9.0-12.7 [facility] Comment on above: Order Comment: Speci men Type: BLOOD SPECIMEN Ordering Facility: [facility] Address: [address] [place] [address] Performed By: #### 5 7021-8 #### [facility] CLIA [id number] [address] [place] [address] [place] Platelets (Bld) [#/Vol] 174 10*3/uL Normal 150-400 [facility] Comment on above: Order Comment: Speci men Type: BLOOD SPECIMEN Ordering Facility: [facility] Address: [address] [place] [address] Performed By: #### 5 7021-8 #### [facility] [id number] [address] [place] [address] [place] RBC (Bld) [#/Vol] 4.08 10*6/uL Low 4.20-6.00 [facility] Comment on above: Order Comment: Speci men Type: BLOOD SPECIMEN Ordering Facility: [facility] Address: [address] [place] [address] Performed By: #### 5 7021-8 #### [facility] CLIA [id number] [address] [place] [address] [place] WBC (Bld) [#/Vol] 3.23 10*3/uL Low 3.70-11.00 [facility] Comment on above: Order Comment: Speci men Type: BLOOD SPECIMEN Ordering Facility: [facility] Address: [address] [place] [address] Performed By: #### 5 7021-8 #### [facility] CLIA [id number] [address] [place], [place] [address] [place] [address] CNNURSEon 07-25-2024 CNNURSE Nurse Visit (HEMAWS) -------- OSEAS JOSEPH ([id number]) 1950 M BONE MAR* Date Time Provider Department 07/25/24 TEMO GILL During your visit today, we recorded the following information about you: Temo Gill RN 08/26/2024 2:34 PM Addendum IRB # [id number], [facility]# SWOG 1803 study entitled Phase III Study of Daratumumab/rHuPH20 (NSC- [id number]) + Lenalidomide or Lenalidomide as Post-Autologous Stem Cell Transplant Maintenance Therapy in Patients with Multiple Myeloma (MM) Using Minimal Residual Disease to Direct Therapy Duration (DRAMMATIC Study). Registration Information: Informed Consent Signed 01/03/2023 Registered Step 1 01/06/2023 Informed Consent Signed Step 2 07/22/2023 Randomization Date: 08/18/2023 Addendum 11/16/2023 Treatment Arm: TAC- 1 Lenalidomide Study ID [id number] Consent to optional samples Yes Study Status Active Patient was here for Cycle 13 to see Bright Thao APRN, CNP. Discussed the results of Bone Marrow Biopsy per conversation with Connie Mccain D.O. All of the patients and his 's questions were answered at this time. Patient doing much better overall per family and patient. The patient saw ENT for hearing aids. Patient saw neurologist and has some follow-up exams. Treatment Plan: Treatment Previous Cycle Cycle Current Start Date Frequency End date Lenalidomide Cycle 1 Day 1 08/24/2023 Dose Reduced 05/12/2024 5mg Cycle 12 06/27/2024-07/24/2024 = 100% Cycle 13 07/25/2024 -08/21/2024 10/19/2023 Daily, Cycle every 28 days Clinical Trial Specific Testing Test Dates Completed Due Date Bone Marrow Biopsy CTD 07/24/2023 Baseline Step 2 [x] 07/18/2024 12 months post Step 2 [] 07/24/2025 24 months post Step 2 [] 07/24/2026 36 months post Step 2 [] 07/24/2027 48 months post Step 2 [] QOLs PRO-CTCAE 08/17/2023 (Baseline) [x] 08/24/2023 (Cycle 1) [x] 09/21/2023 (Cycle 2) [x] 10/19/2023 (Cycle 3) [x] 11/16/2023 (Cycle 4) [x] 12/14/2023 (Cycle 5) [x] 01/11/2024 (Cycle 6) [x] 02/08/2024 (Cycle 7) [x] 03/07/2024 (Cycle 8) [x] 04/04/2024 (Cycle 9) [x] 05/02/2024 (Cycle 10) [x] 05/29/2024 (Cycle 11) [x] 06/27/2024 (Cycle 12) [x] 07/25/2024 (Cycle 13) and annual PROMIS-29 and Intolerance [x] Day 1 of every cycle Baseline Weight (08/24/2023 date) 80.7 kg Current Weight 84.7 kg Creatinine Clearance 58.4 ml/min ECOG per ECOG- 1 Bone Marrow - Plasma Cell % Free Light Chains M Protein Date Size (mm) Date [place] Lambda * IGG Date Serum Urine Diagnosis 08/24/2022 20% Diagnosis 10/26/2022 11.7 43.5 Diagnosis 10/26/2022 1.12 M protein present Baseline 07/30/2023 Less than 5%* Baseline 08/07/2023 4.7 2.5 Enrollment 07/31/2023 Cycle 1 0.22 0.00 08/24/2023 Cycle 1 4.1* 2.4* 08/24/2023 Cycle 1 0.28 0.00 09/21/2023 Cycle 2 11.7 8.7 09/21/2023 Cycle 2 0.17 0.01 10/19/2023 Cycle 3 15.5 10.5 10/19/2023 Cycle 3 0.16 0.01 11/16/2023 Cycle 4 17.4 21.4 11/16/2023 Cycle 4 0.20 0.00 12/14/2023 Cycle 5 19.4 23.1 12/14/2023 Cycle 5 0.00* 0.00 01/11/2024 Cycle 6 25.8 19.4 01/11/2024 Cycle 6 0.15 0.00 02/08/2024 Cycle 7 24.2 20.4 02/08/2024 Cycle 7 0.00* 0.00 03/07/2024 Cycle 8 22.0 15.3 03/07/2024 Cycle 8 0.23 0.0 04/04/2024 Cycle 9 22.4 17.5 04/04/2024 Cycle 9 0.24 0.00 05/02/2024 Cycle 10 23.2 16.5 05/02/2024 Cycle 10 0.00* 0.00 05/29/2024 Cycle 11 23.7 15.3 05/29/2024 Cycle 11 0.00* 0.00 06/27/2024 Cycle 12 27.7 19.3 06/27/2024 Cycle 12 0.25 0.00 07/25/2024 Cycle 13 37.8 21.5 07/25/2024 Cycle 13 0.19 0.00 Lowest/Jacque = * 07/25/24 Weight 84.7 kg (186 lb 11.7 oz) BSA 0 BMI 0 Temp 36.6 ?C (97.8 ?F) Pulse 67 BP 131/63 SpO2 98 % Drug Accountability/Education - Completed on 07/25/2024. Patient given Cycle 13 diary. Patient did return cycle 12 - reviewed edits with patient. Use of the study medication diary and dosing instructions were reviewed with the patient. Patient verbalizes understanding of dosing of Revlimid: Capsules should be taken whole, with water, once daily (patient takes at HS). If a dose is missed, and it has been less than 12 hours since the preceding dose, the patient should take lenalidomide as soon as the patient remembers. If it has been more than 12 hours, the patient should skip the missed dose. Patient took pills for the cycle - determining 100% compliance Patient receives drug from a private pharmacy. Lenalidomide Education and Counseling completed. Patient counseled on potential exposure to lenalidomide by Bright, engage in abstinence or use a condom when engaging in sexual contact with WOCBP, notify study doctor if female partner becomes , never share drug with anyone else, not to donate blood, semen, or sperm while taking drug and for 28 days after. Concomitant medications reviewed per protocol: Yes Patient reported changes to m (more content not included)... Normal [facility] CNOVSPon 07-25-2024 CNOVSP Visit (SP) Office ([place]) -------- OSEAS JOSEPH ([id number]) 1950 M BONE MAR* Date Time Provider Department 07/25/24 9:30 AM BRIGHT THAO During your visit today, we recorded the following information about you: Temperature Pulse Blood pressure Weight 97.8 degrees 67/minute 131/63 84.7 kg Bright Thao APRN.CNP 07/26/2024 11:07 AM Signed Chief Complaint Patient presents with: Established Patient HPI: Oseas Joseph is a 74 year old male who presents here today for follow up MM. Per Dr. Mccain's previous note: H/o type 2 diabetes, high cholesterol, hypertension and right bundle branch block. Patient originally presented to the emergency room at [facility] on 04/19/2022 with new onset of confusion that day which had been worsening. Laboratory work-up significant for hypokalemia. CT of the brain was unremarkable. He was admitted. During hospitalization it was noted that he had been having diarrhea for 6 to 8 weeks. Stool studies were positive for Campylobacter, blood and lactoferrin. C. difficile was negative. CT of the abdomen pelvis on 04/21/2022 noted abnormal pericholecystic edema without gallstones. Renal cysts and colonic diverticulosis were noted. He was found to have elevation of sed rate to 39, CRP 134. His albumin was 2.3. IgA low at 37. He was discharged on azithromycin, potassium and magnesium supplement. He was seen in the outpatient setting for follow-up visit on 07/11/2022. He continued to have one episode of explosive diarrhea daily. This had been going on for about 8 months. CBC on 07/11 showed a white count of 6400. Differential was normal. Hemoglobin 14.9 g/dL. Platelet count 275,000. Chemistries significant for creatinine of 1.29 g/dL. Previously 1.13 g/dL on 04/27/2022. Calcium was 9.3 mg/dL. Total bilirubin, AST, ALT and alkaline phosphatase were normal. LDH was 181. C-reactive protein was less than 2.09. Total protein was 8.8 g/dL. Total IgG was 2462 mg/dL. IgA decreased to 28 mg/dL. IgM normal at 32 mg/dL. On protein electrophoresis, patient was found to have 2M spikes both IgG lambda by immunofixation. For spike was quantitated at 1.2 g/dL and the second was quantitated at 0.6 g/dL. Cytoplasmic and perinuclear ANCA both negative. Atypical p-ANCA negative. Patient described diarrhea as loose, eran stools sometimes explosive typically one bowel movement per day however. He had not observed any blood. Had a colonoscopy December [address] Arteaga. His appetite was normal. He had not lost weight. Denied reflux and nausea. He did get abdominal bloating associated with the diarrhea. He denied musculoskeletal pain. He denied symptoms of sensory neuropathy. He sees an team supervisor once a year for dilated exam. He has not been told he has retinopathy. Recent removal of early melanoma back. Blue nevus right ankle--required WLE--scheduled. PMR--about 15 years ago. - Patient underwent colonoscopy on 09/21/2022. Preparation of the colon was fair. -One 6 mm polyp at the ileocecal valve, removed with a hot snare. Resected and retrieved. -One 5 mm polyp in the ascending colon, removed with a hot snare. Resected and retrieved. -Congested mucosa in the descending colon, at the splenic flexure, in the ascending colon and in the cecum. Biopsied. -Diverticulosis in the recto-sigmoid colon, in the sigmoid colon and in the descending colon. -Stool in the rectum, in the sigmoid colon, in the descending colon and at the hepatic flexure. Fluid aspiration performed. -The examined portion of the ileum was normal. Biopsied. Pathology: A. Ileocecal valve polyp, biopsy: -Consistent with fibrolipomatous polyp. -See comment. B. Small bowel, biopsy: -No pathologic change. C. Cecum, biopsy: -Mild melanosis coli. D. Colon, random biopsy: -Mild melanosis coli. E. Ascending colon polyp, biopsy: -Fragments of tubular adenoma. B, C, D AND E - No congophilic material identified. Congo red stain with matched control is negative. ADDENDUM C AND D. No congophilic material is noted in these biopsies on light and polarized microscopy. Congo Red stain with matched control was used in the evaluation of this case. He was diagnosed with pancreatic insufficiency and was to start pancreatic enzyme replacement. Patient had a venous duplex ultrasound on 12/16/2022 for right leg pain. That study demonstrated no evidence of DVT in the right leg. He developed chest pain and increasing shortness of breath. Went to the ED on 01/16/2023. PE protocol chest CT demonstrated multiple bilateral pulmonary emboli involving the distal portion of both the right and left main pulmonary arteries as well as branches of the upper and lower lobe pulmonary arteries, more prominent on the right side. Platelet count was 67,00 (more content not included)... Normal [facility] Comprehensive metabolic 2000 panelon 07-25-2024 Albumin [Mass/Vol] 4.2 g/dL Normal 3.9-4.9 [facility] Comment on above: Order Comment: Speci men Type: BLOOD SPECIMEN Ordering Facility: [facility] Address: [address] [place] [address] Performed By: #### 2 532-0 #### [facility] CLIA [id number] [address] [place] [address] [place] ALP [Catalytic activity/Vol] 55 U/L Normal 38-113 [facility] Comment on above: Order Comment: Speci men Type: BLOOD SPECIMEN Ordering Facility: [facility] Address: [address] [place] [address] Performed By: #### 2 532-0 #### [facility] CLIA [id number] [address] [place] [address] [place] ALT [Catalytic activity/Vol] 18 U/L Normal 10-54 [facility] Comment on above: Order Comment: Speci men Type: BLOOD SPECIMEN Ordering Facility: [facility] Address: [address] [place] [address] Performed By: #### 2 532-0 #### [facility] CLIA [id number] [address] [place] [address] [place] Anion gap [Moles/Vol] 9 mmol/L Normal 8-15 [facility] Comment on above: Order Comment: Speci men Type: BLOOD SPECIMEN Ordering Facility: [facility] Address: [address] [place] [address] Performed By: #### 2 532-0 #### [facility] CLIA [id number] [address] [place] [address] [place] AST [Catalytic activity/Vol] 19 U/L Normal 14-40 [facility] Comment on above: Order Comment: Speci men Type: BLOOD SPECIMEN Ordering Facility: [facility] Address: [address] [place] [address] Performed By: #### 2 532-0 #### [facility] CLIA [id number] [address] [place] [address] [place] Bilirubin [Mass/Vol] 0.6 mg/dL Normal 0.2-1.3 [facility] Comment on above: Order Comment: Speci men Type: BLOOD SPECIMEN Ordering Facility: [facility] Address: [address] [place] [address] Performed By: #### 2 532-0 #### [facility] CLIA [id number] [address] [place] [address] [place] Calcium [Mass/Vol] 9.2 mg/dL Normal 8.5-10.2 [facility] Comment on above: Order Comment: Speci men Type: BLOOD SPECIMEN Ordering Facility: [facility] Address: [address] [place] [address] Performed By: #### 2 532-0 #### [facility] CLIA [id number] [address] [place] [address] [place] Chloride [Moles/Vol] 106 mmol/L Normal 98-107 [facility] Comment on above: Order Comment: Speci men Type: BLOOD SPECIMEN Ordering Facility: [facility] Address: [address] [place] [address] Performed By: #### 2 532-0 #### [facility] CLIA [id number] [address] [place] [address] [place] CO2 [Moles/Vol] 22 mmol/L Normal 22-30 [facility] Comment on above: Order Comment: Speci men Type: BLOOD SPECIMEN Ordering Facility: [facility] Address: [address] [place] [address] Performed By: #### 2 532-0 #### [facility] CLIA [id number] [address] [place] [address] [place] Creatinine [Mass/Vol] 1.30 mg/dL High 0.73-1.22 [facility] Comment on above: Order Comment: Speci men Type: BLOOD SPECIMEN Ordering Facility: [facility] Address: [address] [place] [address] Performed By: #### 2 532-0 #### [facility] CLIA [id number] [address] [place] [address] [place] Creatinine and Glomerular filtration rate.predicted panel (S/P/Bld) 58 mL/min/1.73m??? Low >=60 [facility] Comment on above: Order Comment: Jessica cesar Type: BLOOD SPECIMEN Ordering Facility: [facility] Address: [address] [place] [address] Result Comment: Ct mated Glomerular Filtration Rate (eGFR) is calculated using the 2020 CKD-EPI creatinine equation. This equation utilizes serum creatinine, sex, and age as parameters. The creatinine assay has traceable calibration to isotope dilution-mass spectrometry. Refer to KDIGO guidelines for clinical interpretation. In patients with unstable renal function, e.g. those with acute kidney injury, the eGFR may not accurately reflect actual GFR. Performed By: #### 2 532-0 #### [facility] CLIA [id number] [address] [place] [address] [place] Glucose [Mass/Vol] 165 mg/dL High 74-99 [facility] Comment on above: Order Comment: Jessica cesar Type: BLOOD SPECIMEN Ordering Facility: [facility] Address: [address] [place] [address] Result Comment: The [place] [employer] (ADA) provides guidance for cutoff values for fasting glucose and random glucose. The ADA defines fasting as no caloric intake for at least 8 hours. Fasting plasma glucose results between 100 to 125 mg/dL indicate increased risk for diabetes (prediabetes). Fasting plasma glucose results greater than or equal to 126 mg/dL meet the criteria for diagnosis of diabetes. In the absence of unequivocal hyperglycemia, results should be confirmed by repeat testing. In a patient with classic symptoms of hyperglycemia or hyperglycemic crisis, random plasma glucose results greater than or equal to 200 mg/dL meet the criteria for diagnosis of diabetes. Reference: Standards of Medical Care in Diabetes 2016, [place] [employer]. Diabetes Care. 2016.39(Suppl 1). Performed By: #### 2 532-0 #### [facility] CLIA [id number] [address] [place] [address] [place] Potassium [Moles/Vol] 4.6 mmol/L Normal 3.7-5.1 [facility] Comment on above: Order Comment: Speci men Type: BLOOD SPECIMEN Ordering Facility: [facility] Address: [address] [place] [address] Performed By: #### 2 532-0 #### [facility] CLIA [id number] [address] [place] [address] [place] Protein [Mass/Vol] 6.9 g/dL Normal 6.3-8.0 [facility] Comment on above: Order Comment: Speci men Type: BLOOD SPECIMEN Ordering Facility: [facility] Address: [address] [place] [address] Performed By: #### 2 532-0 #### [facility] CLIA [id number] [address] [place] [address] [place] Sodium [Moles/Vol] 137 mmol/L Normal 136-144 [facility] Comment on above: Order Comment: Speci men Type: BLOOD SPECIMEN Ordering Facility: [facility] Address: [address] [place] [address] Performed By: #### 2 532-0 #### [facility] CLIA [id number] [address] [place] [address] [place] Urea nitrogen [Mass/Vol] 16 mg/dL Normal 9-24 [facility] Comment on above: Order Comment: Speci men Type: BLOOD SPECIMEN Ordering Facility: [facility] Address: [address] [place] [address] Performed By: #### 2 532-0 #### [facility] CLIA [id number] [address] [place] [address] [place] IMMUNOFIXATION SCREEN, SERUM on 07-25-2024 INTERPRETATION ([facility] [place]) Atypical restricted bands are present in the IgG and lambda regions. Consistent with IgG lambda monoclonal gammopathy. Normal [facility] Comment on above: Order Comment: Speci men Type: BLOOD SPECIMENOrdering Facility: [facility] Address: [address] [place] [address] Performed By: #### I [facility] ####[facility]CLIA [id number] [place] [address] [place] MPA RESULT M protein is present. Abnormal No M protein is identified. [facility] Comment on above: Order Comment: Speci men Type: BLOOD SPECIMENOrdering Facility: [facility] Address: [address] [place] [address] Performed By: #### I FESC ####[facility]IA [id number] [address] [place] STAFF REVIEW (MPA) Reviewed by Sophie Holbrook M.D., Ph.D Normal [facility] Comment on above: Order Comment: Speci men Type: BLOOD SPECIMENOrdering Facility: [facility] Address: [address] [place] [address] Performed By: #### I FES ####[facility]CLIA [id number] [place] [address] [place] IMMUNOGLOBULINS,IGG,IGA,IGMo n 07-25-2024 IgA [Mass/Vol] 83 mg/dL Normal 70-400 [facility] Comment on above: Order Comment: Speci men Type: BLOOD SPECIMEN Ordering Facility: [facility] Address: [address] [place] [address] Performed By: #### 2 532-0 #### [facility] CLIA [id number] [address] [place] [address] [place] IgG [Mass/Vol] 1127 mg/dL Normal 700-1600 [facility] Comment on above: Order Comment: Speci men Type: BLOOD SPECIMEN Ordering Facility: [facility] Address: [address] [place] [address] Performed By: #### 2 532-0 #### [facility] CLIA [id number] [address] [place] [address] [place] IgM [Mass/Vol] 14 mg/dL Low 40-230 [facility] Comment on above: Order Comment: Speci men Type: BLOOD SPECIMEN Ordering Facility: [facility] Address: [address] [place] [address] Performed By: #### 2 532-0 #### [facility] CLIA [id number] [address] [place] [address] [place] KAPPA/SUAZO,FREE,SERon 2023 Immunoglobulin light chains.kappa.free (S) [Mass/Vol] 37.8 mg/L High 3.3-19.4 [facility] Comment on above: Order Comment: Speci men Type: BLOOD SPECIMENOrdering Facility: [facility] Address: [address] [place] [address] Result Comment: Rare ly, increased serum free light chains levels may not be detected or accurately quantified due to prozone phenomenon or in high viscosity samples using this immunoturbidimetric assay. Correlation with other laboratory results and clinical findings is recommended. The [place] Free Light Chain was performed using the Binding Site Optilite immunoturbidimetric method. Result obtained with different assay methods or kits cannot be used interchangeably. Performed By: #### K LFRS ####[facility]IA [id number] [place] [address] [place] Immunoglobulin light chains.kappa/Immunoglo bulin light chains.lambda (S) [Mass ratio] 1.76 High 0.26-1.65 [facility] Comment on above: Order Comment: Speci men Type: BLOOD SPECIMENOrdering Facility: [facility] Address: [address] [place] [address] Performed By: #### K LFRS ####[facility]CLIA [id number] [place] [address] [place] Immunoglobulin light chains.lambda.free [Mass/Vol] 21.5 mg/L Normal 5.7-26.3 [facility] Comment on above: Order Comment: Speci men Type: BLOOD SPECIMENOrdering Facility: [facility] Address: [address] [place] [address] Result Comment: Rare ly, increased serum free light chains levels may not be detected or accurately quantified due to prozone phenomenon or in high viscosity samples using this immunoturbidimetric assay. Correlation with other laboratory results and clinical findings is recommended. The Lambda Free Light Chain was performed using the Binding Site Optilite immunoturbidimetric method. Result obtained with different assay methods or kits cannot be used interchangeably. Performed By: #### K LFRS ####[facility]CLIA [id number] [place] [address] [place] LDH SerPl-cCncon 07-25-2024 LDH [Catalytic activity/Vol] 151 U/L Normal 135-225 [facility] Comment on above: Order Comment: Speci men Type: BLOOD SPECIMEN Ordering Facility: [facility] Address: [address] [place] [address] Performed By: #### 2 532-0 #### [facility] CLIA [id number] [address] [place] [address] [place] MONOCLONAL PROT 24 UR W/INTE RPon 07-25-2024 INTERPRETATION ([facility]) Atypical restricte d bands are present in the IgG and lambda regions. Consistent with IgG lambda monoclonal gammopathy. Normal [facility] Comment on above: Order Comment: Speci men Type: TIMED URINE SPECIMENOrdering Facility: [facility] Address: [address] [place] [address] Performed By: #### U 24MPA ####[facility]CLIA [id number] [place] [address] [place] STAFF REVIEW (UMPA) Reviewed by Sophie Holbrook M.D., Ph.D Normal [facility] Comment on above: Order Comment: Speci men Type: TIMED URINE SPECIMENOrdering Facility: [facility] Address: [address] [place] [address] Performed By: #### U 24MPA ####[facility]IA [id number] [place] [address] [place] UMPA RESULT M protein is present. Abnormal No M protein is identified. [facility] Comment on above: Order Comment: Speci men Type: TIMED URINE SPECIMENOrdering Facility: [facility] Address: [address] [place] [address] Performed By: #### U 24MPA ####[facility]CLIA [id number] [place] [address] [place] PROT ELEC UR 24HR W/M SPIKE (P)on 07-25-2024 Albumin/Globulin Elph (24H U) [Mass ratio] 29.45 % Normal [facility] Comment on above: Order Comment: Speci men Type: URINE SPECIMENOrdering Facility: [facility] Address: [address] [place] [address] Performed By: #### L [id number] ####[facility]CLIA [id number] [place] [address] [place] Alpha 1 globulin Elph (24H U) [Mass fraction] 2.17 % Normal [facility] Comment on above: Order Comment: Speci men Type: URINE SPECIMENOrdering Facility: [facility] Address: [address] [place] [address] Performed By: #### L [id number] ####[facility]CLIA [id number] [place] [address] [place] Alpha 2 globulin Elph (24H U) [Mass fraction] 20.36 % Normal [facility] Comment on above: Order Comment: Speci men Type: URINE SPECIMENOrdering Facility: [facility] Address: [address] [place] [address] Performed By: #### L [id number] ####[facility]CLIA [id number] [place] [address] [place] Beta globulin Elph (24H U) [Mass fraction] 24.70 % Normal [facility] Comment on above: Order Comment: Speci men Type: URINE SPECIMENOrdering Facility: [facility] Address: [address] [place] [address] Performed By: #### L [id number] ####[facility] [id number] [place] [address] [place] Gamma globulin Elph (24H U) [Mass fraction] 23.32 % Normal [facility] Comment on above: Order Comment: Speci men Type: URINE SPECIMENOrdering Facility: [facility] Address: [address] [place] [address] Performed By: #### L [id number] ####[place] [id number] [place] [address] [place] INTERPRETATION COMMENT FOR PROTEIN ELECTROPHORESIS The atypical region is relatively poorly defined and may represent an unusual presentation of polyclonal immunoglobulins, but cannot rule out the presence of a low level M protein. If clinically indicated, monoclonal protein analysis and serum free light chain analysis are suggested to evaluate further for monoclonal gammopathy. Normal [facility] Comment on above: Order Comment: Speci men Type: URINE SPECIMENOrdering Facility: [facility] Address: [address] [place] [address] Performed By: #### L [id number] ####[place] [id number] [place] [address] [place] Protein Fractions Elph Joey (24H U) [Interp] An atypical region of restricted mobility is identified on protein electrophoresis. Abnormal No definitive M protein is identified on protein electrophor esis. [facility] Comment on above: Order Comment: Speci men Type: URINE SPECIMENOrdering Facility: [facility] Address: [address] [place] [address] Performed By: #### L [id number] ####[facility] [id number] [place] [address] [place] Protein.monoclonal Elph (24H U) [Mass/Time] 0.00 g/24hr Normal [facility] Comment on above: Order Comment: Speci men Type: URINE SPECIMENOrdering Facility: [facility] Address: [address] [place] [address] Performed By: #### L [id number] ####[facility]CLIA [id number] [address] [place] STAFF REVIEW ([id number]) Reviewed by Eugenie Pickens MD Normal [facility] Comment on above: Order Comment: Speci men Type: URINE SPECIMENOrdering Facility: [facility] Address: [address] [place] [address] Performed By: #### L [id number] ####[facility]CLIA [id number] [place] [address] [place] PROTEIN ELECTROPHORESIS SERU M (P)on 07-25-2024 Albumin [Mass/Vol] 4.06 g/dL Normal 3.43-5.41 [facility] Comment on above: Order Comment: Speci men Type: BLOOD SPECIMEN Ordering Facility: [facility] Address: [address] [place] [address] Performed By: #### 2 532-0 #### [facility] CLIA [id number] [address] [place] [address] [place] Alpha 1 globulin Elph [Mass/Vol] 0.30 g/dL Normal 0.18-0.43 [facility] Comment on above: Order Comment: Speci men Type: BLOOD SPECIMEN Ordering Facility: [facility] Address: [address] [place] [address] Performed By: #### 2 532-0 #### [facility] CLIA [id number] [address] [place] [address] [place] Alpha 2 globulin Elph [Mass/Vol] 0.64 g/dL Normal 0.42-0.98 [facility] Comment on above: Order Comment: Speci men Type: BLOOD SPECIMEN Ordering Facility: [facility] Address: [address] [place] [address] Performed By: #### 2 532-0 #### [facility] CLIA [id number] [address] [place] [address] [place] Beta globulin Elph [Mass/Vol] 0.69 g/dL Normal 0.61-1.17 [facility] Comment on above: Order Comment: Speci men Type: BLOOD SPECIMEN Ordering Facility: [facility] Address: [address] [place] [address] Performed By: #### 2 532-0 #### [facility] CLIA [id number] [address] [place] [address] [place] Gamma globulin Elph [Mass/Vol] 1.01 g/dL Normal 0.53-1.51 [facility] Comment on above: Order Comment: Speci men Type: BLOOD SPECIMEN Ordering Facility: [facility] Address: [address] [place] [address] Performed By: #### 2 532-0 #### [facility] IA [id number] [address] [place] [address] [place] INTERPRETATION COMMENT FOR PROTEIN ELECTROPHORESIS See separate immunofixation report for characterization of monoclonal gammopathy. Normal [facility] Comment on above: Order Comment: Speci men Type: BLOOD SPECIMEN Ordering Facility: [facility] Address: [address] [place] [address] Performed By: #### 2 532-0 #### [facility] IA [id number] [address] [place] [address] [place] M-PROTEIN LOCATION Gamma Fraction 1 Normal [facility] Comment on above: Order Comment: Speci men Type: BLOOD SPECIMEN Ordering Facility: [facility] Address: [address] [place] [address] Performed By: #### 2 532-0 #### [facility] [place] [id number] [address] [place] [address] [place] Protein Fractions [Interp] An M protein is identified on protein electrophoresis. Abnormal No definitive M protein is identified on protein electrophor esis. [facility] Comment on above: Order Comment: Speci men Type: BLOOD SPECIMEN Ordering Facility: [facility] Address: [address] [place] [address] Performed By: #### 2 532-0 #### [facility] CLIA [id number] [address] [place] [address] [place] Protein.monoclonal Elph [Mass/Vol] 0.19 g/dL High <=0.00 [facility] Comment on above: Order Comment: Speci men Type: BLOOD SPECIMEN Ordering Facility: [facility] Address: [address] [place] [address] Performed By: #### 2 532-0 #### [facility] CLIA [id number] [address] [place] [address] [place] SPE STAFF REVIEW Reviewed by Sophie Holbrook M.D., Ph.D Normal [facility] Comment on above: Order Comment: Speci men Type: BLOOD SPECIMEN Ordering Facility: [facility] Address: [address] [place] [address] Performed By: #### 2 532-0 #### [facility] CLIA [id number] [address] [place] [address] [place] Prot 24h Ur-mRateon 07-25-20 24 Protein (24H U) [Mass/Time] 0.18 g/24 Hr High <0.15 [facility] Comment on above: Order Comment: Speci men Type: BLOOD SPECIMEN Ordering Facility: [facility] Address: [address] [place] [address] Result Comment: Adul t Proteinuria Categories: <0.15 g/24 hours is considered normal to mildly increased 0.15 - 0.50 g/24 hours is considered moderately increased >0.50 g/24 hours is considered severely increased KDIGO. (2013). KDIGO 2012 Clinical Practice Guideline for the Evaluation and Management of Chronic Kidney Disease. Official Journal of the International Society of Nephrology, 3(1), 1-150. Performed By: #### 2 532-0 #### [facility] CLIA [id number] [address] [place] [address] [place] Prot SerPl-mCncon 07-25-2024 Protein [Mass/Vol] 6.7 g/dL Normal 6.3-8.0 [facility] Comment on above: Order Comment: Speci men Type: BLOOD SPECIMENOrdering Facility: [facility] Address: [address] [place] [address] Performed By: #### 1 952-1, 2885-2 ####[facility]IA [id number] [place] [address] [place] Protein (24H U) [Mass/Time]o n 07-25-2024 PERIOD (HRS) 24 hr Normal [facility] Comment on above: Order Comment: Speci men Type: BLOOD SPECIMEN Ordering Facility: [facility] Address: [address] [place] [address] Performed By: #### 2 532-0 #### [facility] [place] [id number] [address] [place] [address] [place] Specimen volume (24H U) 1.8 L Normal [facility] Comment on above: Order Comment: Speci men Type: BLOOD SPECIMEN Ordering Facility: [facility] Address: [address] [place] [address] Performed By: #### 2 532-0 #### [facility] CLIA [id number] [address] [place] [address] [place] CNPNon 07-23-2024 CNPN Telephone (HEMAWS) -------- OSEAS JOSEPH ([id number]) 1950 M BONE MAR* Date Time Provider Department 07/23/24 TEMO GILL During your visit today, we recorded the following information about you: Temo Gill RN 07/23/2024 1:49 PM Signed Called patient and and left a voicemail for patients in regards to lab work and appointment with call back information. Temo Gill RN Allergies As of Date: 07/23/2024 (No Known Allergies) Date Reviewed: 07/18/2024 Reviewed by: Bright Thao APRN.[employer]TERN[employer]KER [employer] - Fully Assessed Reason for Visit: Research [293] Prescriptions as of 07/23/2024 - REVLIMID 5 mg capsule TAKE 1 CAPSULE BY MOUTH DAILY FOR 28 DAYS - rivaroxaban (XARELTO) 20 mg tablet Take 1 tablet by mouth daily with dinner. - acyclovir (ZOVIRAX) 400 mg tablet Take 1 tablet by mouth two times a day. - sildenafil (VIAGRA) 50 mg tablet Take 50 mg by mouth as needed. - loperamide HCl (IMODIUM ORAL) Take by mouth as needed. - glimepiride (AMARYL) 2 mg tablet Take 1 tablet by mouth daily with breakfast. Take 2 mg twice a day. May increase to 4mg BID if your PCP requests so. - ondansetron (ZOFRAN) 8 mg tablet Take 1 tablet by mouth every 8 hours as needed for nausea/vomiting. - clonazePAM (KLONOPIN) 0.5 mg tablet Take 0.5 mg by mouth once daily. - amLODIPine (NORVASC) 5 mg tablet Take 10 mg by mouth once daily. - atorvastatin (LIPITOR) 10 mg tablet Take 10 mg by mouth once daily. - losartan (COZAAR) 50 mg tablet Take 50 mg by mouth once daily. 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 04/17/2023 Multiple myeloma not having achieved remission *10/26/2022 Thrombocytopenia, unspecified (HCC) [D69.6] 02/13/2023 02/08/2024 Personal history of diseases of blood and blood*03/30/2023 Mixed hyperlipidemia [E78.2] 04/17/2023 Primary hypertension [I10] 04/17/2023 Type 2 diabetes mellitus, without long-term cur*04/17/2023 Right bundle branch block [I45.10] 04/17/2023 Blurred vision [H53.8] 04/18/2023 Insomnia [G47.00] 04/18/2023 Multiple myeloma and immunoproliferative neopla*05/31/2023 Chronic diarrhea [K52.9] Chronic 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 acute cor pu* CINV (chemotherapy-induced nausea and vomiting)* Immunocompromised (HCC) [D84.9] Pancytopenia (HCC) [D61.818] 08/24/2023 Autologous bone marrow transplantation status (* Other constipation [K59.09] 06/03/2023 06/06/2023 Pancytopenia due to antineoplastic chemotherapy*06/06/2023 KYE (acute kidney injury) (HCC) [N17.9] 06/11/2023 Right thigh pain [M79.651] 01/02/2024 Muscle pain [M79.10] 01/02/2024 Weakness of right lower extremity [R29.898] 01/02/2024 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*01/02/2024 Encounter Status:Closed by TEMO GILL on 07/23/24 Normal [facility] BONE MARROW ANALYSISon 07-18 CASE REPORT Normal [facility] Comment on above: Order Comment: Speci men Type: BONE MARROW SPECIMENOrdering Facility: [facility] Address: [address] [place] [address] Result Comment: Bone Marrow Pathology Report Case: [id number] Authorizing Provider: Connie Mccain DO Collected: 07/18/2024 01:59 PM Ordering Location: Hematology/Oncology Received: 07/18/2024 02:40 PM Pathologist: Sheldon Infante MD Specimens: A) - Bone Marrow, Aspirate, Right, Posterior, Iliac Crest B) - Bone Marrow, Biopsy, Right, Posterior, Iliac Crest C) - Bone Marrow, Clot, Right, Posterior, Iliac Crest D) - Blood Performed By: #### B MRT ####[facility] LABCLIA [id number] [address] [place] [address] [place] DIAGNOSIS COMMENT [facility] Comment on above: Order Comment: Speci men Type: BONE MARROW SPECIMENOrdering Facility: [facility] Address: [address] [place] [address] Result Comment: 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 Recent analysis showed an IgG lambda monoclonal protein quantitated at 250 mg/dL. Immunostains for CD138 and kappa and lambda cytoplasmic immunoglobulin were performed on the core biopsy to better quantify plasma cells and evaluate for clonality, and showed that CD138+ plasma cells comprise less than 5% of cellularity and are distributed as single cells; plasma cells appear polytypic by kappa and lambda light chain staining. Flow cytometry of the marrow aspirate was negative for an abnormal T- or monoclonal B-lymphocyte population, increased blasts, and an abnormal plasma cell population. Please correlate with other clinical, laboratory and radiographic findings to further classify this process. Laboratory Developed Test (LDT) Disclaimer: Performance characteristics of immunohistochemical, immunofluorescent and chromogenic in-situ hybridization tests have been determined by the performing laboratory within [facility] ([facility], [facility], [facility], [facility], [facility], [facility], or [facility]) in a manner consistent with CLIA requirements. One or more of these tests have not been cleared or approved by the FDA. [facility] is regulated under CLIA as qualified to perform high-complexity testing. These tests are used for clinical purposes. They should not be regarded as investigational or for research. Positive and negative controls stain appropriately. Performed By: #### B MRT ####[facility] LABCLIA [id number] [facility] [id number] FINAL DIAGNOSIS Normal [facility] Comment on above: Order Comment: Homeroi tali Type: BONE MARROW SPECIMENOrdering Facility: [facility] Address: [address] [id number] Result Comment: A-C. Bone marrow, aspirate, touch imprint, clot section and core biopsy: - Normocellular marrow for age (30-40%) with trilineage hematopoiesis. - Adequate megakaryocytes. - Increased stainable iron without increased ring sideroblasts. - Plasma cells are not increased and appear polytypic by kappa and lambda light chain staining (see comment). D. Peripheral blood smear: - Normocytic anemia. - Leukopenia with absolute lymphopenia. KST/ 07/19/2024 Performed By: #### B MRT ####[facility] LABCLIA [id number] [address] OF [facility] FINAL PERFORMING LAB Normal [facility] Comment on above: Order Comment: Jessica cesar Type: BONE MARROW SPECIMENOrdering Facility: [facility] Address: [address] [place] [address] Result Comment: Diag nostic interpretation performed at [facility], [address] [place] [address] CLIA# [id number] Shot Packer: Deepak Prajapati M.D. Performed By: #### B MRT ####[facility] LABCLIA [id number] [address] OF [facility] GROSS DESCRIPTION Normal [facility] Comment on above: Order Comment: Jessica cesar Type: BONE MARROW SPECIMENOrdering Facility: [facility] Address: [address] [place] [address] Result Comment: A. B one Marrow, Aspirate, Right, Posterior, Iliac Crest Received are air-dried bone marrow aspirate smears. Submitted for light microscopy. B. Bone Marrow, Biopsy, Right, Posterior, Iliac Crest Received in formalin is one segment of cylindrical tissue measuring 1.1 x 0.3 x 0.2 cm, ibarra-brown and of a firm consistency. Totally submitted in one cassette after decalcification. C. Bone Marrow, Clot, Right, Posterior, Iliac Crest Received in formalin is one segment of red, hemorrhagic material measuring 1.7 x 0.9 x 0.4 cm. Totally submitted in one cassette. D. Blood Received is a peripheral blood smear. Submitted for light microscopy. July 18, 2024 8:45 PM Gross examination performed at [facility], [address] [place] [address] Performed By: #### B MRT ####[facility] LABCLIA [id number] [facility] [id number] [address] [place] MICROSCOPIC DESCRIPTION Normal [facility] Comment on above: Order Comment: Speci men Type: BONE MARROW SPECIMENOrdering Facility: [facility] Address: [address] [place] [address] Result Comment: MARE PHERAL BLOOD: CBC (07/18/2024) Differential Count WBC 3.49 k/uL Neutrophil 47.5% Hemoglobin 12.2 g/dL Lymphocyte 27.5% MCV 93.8 fL Monocyte 13.2% RDW-CV 13.8 % Eosinophil 10.6% Platelet Count 171 k/uL Basophil 0.9% Immature granulocyte 0.3% Morphology/Interpretation: There is a normocytic anemia without polychromasia; few ovalocytes are present. Platelets are adequate. There is leukopenia with mild absolute lymphopenia. BONE MARROW ASPIRATE: Result Normal Range 0 % Blasts 0-2 0 % Promyelocytes 1-5 43 % Myelos/Metas/Bands/Segs 32-72 9 % Eosinophils 1-6 0 % Basophils 0-1 0 % Monocytes 0-4 27 % Erythroid precursors 13-37 21 % Lymphocytes 7-23 0 % Plasma cells 0-2 Myeloid/Erythro (1.5-4): 1.9 Cells counted: 100. Iron stain result: Increased stainable iron without ring sideroblasts. Specimen Quality: Suboptimal morphology; paucispicular, paucicellular. Megakaryocytes: Rare megakaryocyte present, with normal morphology. Erythropoiesis: Progressive maturation. Granulopoiesis: Progressive maturation. BONE MARROW BIOPSY: Adequacy: Adequate. Cellularity: Variable in distribution, overall normal at 30-40%. ME ratio: Normal. Hematopoiesis: Trilineage maturation. Megakaryocytes: Adequate. Megakaryocyte morphology: Normal. Lymphoid infiltrate: None present. Bone trabeculae: Normal. CLOT SECTION: Marrow particles: Many. Morphology: Similar to biopsy. ANCILLARY TESTS: Flow cytometry: Performed. Cytogenetics: Pending. FISH: Myeloma panel. Molecular: Buffy coat stored. Note: Immunohistochemical stains were performed in addition to flow cytometry in this case to further characterize the hematolymphoid elements in the context of cell morphology and tissue architecture. Discrepancies between flow cytometric results and morphology can occur due to sampling differences, preferential loss of specific cell populations, or hemodilution. KST/ 07/19/2024 Performed By: #### B MRT ####[facility] LABCLPEYMAN [id number] KETAN MCLAUGHLIN [place] [id number] [place] [facility] BONE MARROW BIOPSYon 024 Bright Thao APRN.CNP 07/18/2024 2:34 PM BONE MARROW BIOPSY Date/Start Time: 07/18/2024 1:25 PM Date/Stop Time: 07/18/2024 1:37 PM Performed by: Bright Thao APRN.CNP Authorized by: Bright Thao APRN.CNP Where was Patient When this Procedure was Performed [facility] Informed Consent Consent Obtained: Written Topmost Protocol A moment to CARE was completed. SIGN IN Personnel directly involved with the procedure wore the appropriate PPE. Special Equipment: Yes Patient/Surrogate Stated/Verified: Patient name, Date of , Relevant allergies and Intended procedure TIME OUT Intended patient and procedure match the source document(s). Consent documented and matches the intended procedure. Relevant labs, photos, and/or imaging studies have been reviewed. Correct side/site marked and visible. Medications required for procedure verified. No fire risk assessment and interventions applicable. No implant(s) inserted. Pre-Procedure Details: The area was prepped with povidone Iodine (Betadine) and allowed to dry. A sterile partial body drape was applied following the usual aseptic technique. Medications: Local Anesthesia (see MAR): Lidocaine 1% Procedure Details: Patient Position: Left lateral decubitus Aspiration Laterality: Unilateral Aspiration Site: Right posterior superior iliac crest Biopsy Laterality: Unilateral Biopsy Site: Right posterior sperior iliac crest OnControl biopsy system was used. Using aseptic technique, bone marrow aspiration was performed. A touch prep was taken. Core biopsy was obtained 1.2 cm. The core biopsy was confirmed. Number of External Insertion Sites: 1 Pressure dressing applied to Bone Marrow site(s). Hemostasis maintained. Assisting Clinician(s): Marvin Pickens MA and Andre Quijano MA Post-Procedure Details: Patient Tolerance: Patient tolerated the procedure well with no immediate complications Immediate Complications: N/A Estimated Blood Loss: scant Specimens Sent: bone marrow analysis, bone marrow chromosome analysis, DNA extraction and flow cytometry Teaching Complete: Bone Marrow Biopsy Post-procedure teaching complete Post-procedure care was reviewed and explained. Patient instructed to communicate complaints of redness, swelling, increased or unresolved pain, bleeding chills, bruising, and/or fever. Patient verbalized understanding. SIGN OUT All specimen containers correctly labeled. All instruments, equipment, possible retained foreign bodies accounted for. Post-procedure follow-up management communicated and Plan of Care Visit completed when applicable [facility] BONE MARROW CHROMOSOME ANALo n 07-18-2024 CHROMOSOME BM Normal [facility] Comment on above: Order Comment: Speci men Type: BLOOD SPECIMEN [facility]: [facility] Address: [address] [place] [address] Result Comment: Ginna jackson Accession Number: [id number] Doctor: Connie Mccain Pathologist: [facility] No: [id number] Clinical diagnosis: Multiple myeloma not having achieved remission, examination of participant in clinical trial Specimen Type: Bone marrow Received Date: 07/19/2024 Number of cells counted: 20 Number of cells analyzed: 20 Number of cells karyotyped: 20 Banding resolution: 400 Banding method: G-banding DIAGNOSIS: 46,XY[20] INTERPRETATION: Normal, male karyotype COMMENT: Ten metaphase cells were analyzed from the culture stimulated with ODN and ten metaphase cells were analyzed from the 24 hour unstimulated culture. Twenty cells analyzed showed a 46,XY karyotype or had random chromosome loss, attributed to culture artifact. There was no significant numerical chromosome abnormality and no structural change detected within the limits of resolution. Chromosome analysis performed in July 2023 was also normal. Clinical and pathologic correlation is recommended. As reviewed by Kemi Kessler, Ph.D. Performed by [facility] Molecular Pathology and Cytogenomics ([id number]), Division of Laboratory Medicine Nidhi Mohan Department of Pathology & Laboratory Medicine, Diagnostics [place] [id number] [place] [address]. [place] [address] Toll free: Performed By: #### 2 532-0 #### [facility] LAB CLIA [id number] [address] [place] [id number] [place] [address] [place] CBC W Auto Differential pane l (Bld)on 07-18-2024 Basophils (Bld) [#/Vol] 0.03 10*3/uL Normal <0.11 [facility] Comment on above: Order Comment: Speci men Type: BLOOD SPECIMENOrdering Facility: [facility] Address: [address] [place] [address] Performed By: #### 5 7021-8 ####[facility] [id number] [place] [address] [place] Basophils/100 WBC (Bld) 0.9 % Normal [facility] Comment on above: Order Comment: Speci men Type: BLOOD SPECIMENOrdering Facility: [facility] Address: [address] [place] [address] Performed By: #### 5 7021-8 ####[facility] [id number] [place] [address] [place] Differential cell count method Nom (Bld) Auto Normal [facility] Comment on above: Order Comment: Speci men Type: BLOOD SPECIMENOrdering Facility: [facility] Address: [address] [place] [address] Performed By: #### 5 7021-8 ####[facility] [id number] [place] [address] [place] Eosinophils (Bld) [#/Vol] 0.37 10*3/uL Normal <0.46 [facility] Comment on above: Order Comment: Speci men Type: BLOOD SPECIMENOrdering Facility: [facility] Address: [address] [place] [address] Performed By: #### 5 7021-8 ####[facility] [id number] [place] [address] [place] Eosinophils/100 WBC (Bld) 10.6 % Normal [facility] Comment on above: Order Comment: Speci men Type: BLOOD SPECIMENOrdering Facility: [facility] Address: [address] [place] [address] Performed By: #### 5 7021-8 ####[facility] JOVANNAGREENSBOROJARRED [id number] [place] [address] [place] Erythrocyte distribution width (RBC) [Ratio] 13.8 % Normal 11.5-15.0 [facility] Comment on above: Order Comment: Speci men Type: BLOOD SPECIMENOrdering Facility: [facility] Address: [address] [place] [address] Performed By: #### 5 7021-8 ####[facility] [id number] [place] [address] [place] Hematocrit (Bld) [Volume fraction] 36.3 % Low 39.0-51.0 [facility] Comment on above: Order Comment: Speci men Type: BLOOD SPECIMENOrdering Facility: [facility] Address: [address] [place] [address] Performed By: #### 5 7021-8 ####[facility] [id number] [place] [address] [place] Hemoglobin (Bld) [Mass/Vol] 12.2 g/dL Low 13.0-17.0 [facility] Comment on above: Order Comment: Speci men Type: BLOOD SPECIMENOrdering Facility: [facility] Address: [address] [place] [address] Performed By: #### 5 7021-8 ####[facility] [id number] [place] [address] [place] Immature granulocytes (Bld) [#/Vol] 10*3/uL Normal <0.10 [facility] Comment on above: Order Comment: Speci men Type: BLOOD SPECIMENOrdering Facility: [facility] Address: [address] [place] [address] Performed By: #### 5 7021-8 ####[facility] [id number] [place] [address] [place] Immature granulocytes/100 WBC (Bld) 0.3 % Normal [facility] Comment on above: Order Comment: Speci men Type: BLOOD SPECIMENOrdering Facility: [facility] Address: [address] [place] [address] Performed By: #### 5 7021-8 ####[facility] ORLANDOJOYAura [id number] [place] [address] [place] Lymphocytes (Bld) [#/Vol] 0.96 10*3/uL Low 1.00-4.00 [facility] Comment on above: Order Comment: Speci men Type: BLOOD SPECIMENOrdering Facility: [facility] Address: [address] [place] [address] Performed By: #### 5 7021-8 ####[facility] [id number] [place] [address] [place] Lymphocytes/100 WBC (Bld) 27.5 % Normal [facility] Comment on above: Order Comment: Speci men Type: BLOOD SPECIMENOrdering Facility: [facility] Address: [address] [place] [address] Performed By: #### 5 7021-8 ####[facility]UTESHASTAA [id number] [place] [address] [place] MCH (RBC) [Entitic mass] 31.5 pg Normal 26.0-34.0 [facility] Comment on above: Order Comment: Speci men Type: BLOOD SPECIMENOrdering Facility: [facility] Address: [address] [place] [address] Performed By: #### 5 7021-8 ####[facility]CLIA [id number] [place] [address] [place] MCHC (RBC) [Mass/Vol] 33.6 g/dL Normal 30.5-36.0 [facility] Comment on above: Order Comment: Speci men Type: BLOOD SPECIMENOrdering Facility: [facility] Address: [address] [place] [address] Performed By: #### 5 7021-8 ####[facility]ONCLI [id number] [place] [address] [place] MCV (RBC) [Entitic vol] 93.8 fL Normal 80.0-100.0 [facility] Comment on above: Order Comment: Speci men Type: BLOOD SPECIMENOrdering Facility: [facility] Address: [address] [place] [address] Performed By: #### 5 7021-8 ####[facility] [id number] [place] [address] [place] Monocytes (Bld) [#/Vol] 0.46 10*3/uL Normal <0.87 [facility] Comment on above: Order Comment: Speci men Type: BLOOD SPECIMENOrdering Facility: [facility] Address: [address] [place] [address] Performed By: #### 5 7021-8 ####[facility]ONCLI [id number] [place] [address] [place] Monocytes/100 WBC (Bld) 13.2 % Normal [facility] Comment on above: Order Comment: Speci men Type: BLOOD SPECIMENOrdering Facility: [facility] Address: [address] [place] [address] Performed By: #### 5 7021-8 ####[facility] [id number] [place] [address] [place] Neutrophils (Bld) [#/Vol] 1.66 10*3/uL Normal 1.45-7.50 [facility] Comment on above: Order Comment: Speci men Type: BLOOD SPECIMENOrdering Facility: [facility] Address: [address] [place] [address] Performed By: #### 5 7021-8 ####[facility] MILLWNCLIA [id number] [place] [address] [place] Neutrophils/100 WBC (Bld) 47.5 % Normal [facility] Comment on above: Order Comment: Speci men Type: BLOOD SPECIMENOrdering Facility: [facility] Address: [address] [place] [address] Performed By: #### 5 7021-8 ####[facility]CLIA [id number] [place] [address] [place] Nucleated RBC (Bld) [#/Vol] 10*3/uL Normal <0.01 [facility] Comment on above: Order Comment: Speci men Type: BLOOD SPECIMENOrdering Facility: [facility] Address: [address] [place] [address] Performed By: #### 5 7021-8 ####[facility]UTELIA [id number] [place] [address] [place] Nucleated RBC/100 WBC (Bld) [Ratio] 0.0 /100 WBC Normal [facility] Comment on above: Order Comment: Speci men Type: BLOOD SPECIMENOrdering Facility: [facility] Address: [address] [place] [address] Performed By: #### 5 7021-8 ####[facility] HOSPITALWNCLIA [id number] [place] [address] [place] Platelet mean volume (Bld) [Entitic vol] 9.3 fL Normal 9.0-12.7 [facility] Comment on above: Order Comment: Speci men Type: BLOOD SPECIMENOrdering Facility: [facility] Address: [address] [place] [address] Performed By: #### 5 7021-8 ####[facility]ONCLIA [id number] [place] [address] [place] Platelets (Bld) [#/Vol] 171 10*3/uL Normal 150-400 [facility] Comment on above: Order Comment: Speci men Type: BLOOD SPECIMENOrdering Facility: [facility] Address: [address] [place] [address] Performed By: #### 5 7021-8 ####[facility] [id number] [place] [address] [place] RBC (Bld) [#/Vol] 3.87 10*6/uL Low 4.20-6.00 [facility] Comment on above: Order Comment: Speci men Type: BLOOD SPECIMENOrdering Facility: [facility] Address: [address] [place] [address] Performed By: #### 5 7021-8 ####[facility] [id number] [place] [address] [place] WBC (Bld) [#/Vol] 3.49 10*3/uL Low 3.70-11.00 [facility] Comment on above: Order Comment: Speci men Type: BLOOD SPECIMENOrdering Facility: [facility] Address: [address] [place] [address] Performed By: #### 5 7021-8 ####[facility] [id number] [place] [address] [place] CNOVSPon 07-18-2024 CNOVSP Visit (SP) Office (HEMAWS) -------- OSEAS JOSEPH ([id number]) 1950 M BONE MAR* Date Time Provider Department 07/18/24 2:00 PM BRIGHT THAO During your visit today, we recorded the following information about you: Temperature Pulse Blood pressure Weight 97 degrees 54/minute 158/76 84.4 kg Marvin Pickens MA 07/18/2024 1:39 PM Signed Pt discharged to home with after BMBX with dry sterile dressing in place. No drainage noted. Post-procedures care reviewed with patient. Pt to call with any complaints of redness, swelling, increased or unresolved pain, bleeding, chills, bruising, and/or fever. Pt. Verbalized understanding. Marvin MONALISA Pickens Darby, APRN.CNP 07/18/2024 2:34 PM Signed BEDSIDE PROCEDURE NOTE BONE MARROW BIOPSY Date/Start Time: 07/18/2024 1:25 PM Date/Stop Time: 07/18/2024 1:37 PM Performed by: Bright Thao APRN.EVELIN Authorized by: Bright Thao APRN.CNP Where was Patient When this Procedure was Performed [facility] Informed Consent Consent Obtained: Written Topmost Protocol A moment to CARE was completed. SIGN IN Personnel directly involved with the procedure wore the appropriate PPE. Special Equipment: Yes Patient/Surrogate Stated/Verified: Patient name, Date of , Relevant allergies and Intended procedure TIME OUT Intended patient and procedure match the source document(s). Consent documented and matches the intended procedure. Relevant labs, photos, and/or imaging studies have been reviewed. Correct side/site marked and visible. Medications required for procedure verified. No fire risk assessment and interventions applicable. No implant(s) inserted. Pre-Procedure Details: The area was prepped with povidone Iodine (Betadine) and allowed to dry. A sterile partial body drape was applied following the usual aseptic technique. Medications: Local Anesthesia (see MAR): Lidocaine 1% Procedure Details: Patient Position: Left lateral decubitus Aspiration Laterality: Unilateral Aspiration Site: Right posterior superior iliac crest Biopsy Laterality: Unilateral Biopsy Site: Right posterior sperior iliac crest OnControl biopsy system was used. Using aseptic technique, bone marrow aspiration was performed. A touch prep was taken. Core biopsy was obtained 1.2 cm. The core biopsy was confirmed. Number of External Insertion Sites: 1 Pressure dressing applied to Bone Marrow site(s). Hemostasis maintained. Assisting Clinician(s): Marvin Pickens MA and Andre Quijano MA Post-Procedure Details: Patient Tolerance: Patient tolerated the procedure well with no immediate complications Immediate Complications: N/A Estimated Blood Loss: scant Specimens Sent: bone marrow analysis, bone marrow chromosome analysis, DNA extraction and flow cytometry Teaching Complete: Bone Marrow Biopsy Post-procedure teaching complete Post-procedure care was reviewed and explained. Patient instructed to communicate complaints of redness, swelling, increased or unresolved pain, bleeding chills, bruising, and/or fever. Patient verbalized understanding. SIGN OUT All specimen containers correctly labeled. All instruments, equipment, possible retained foreign bodies accounted for. Post-procedure follow-up management communicated and Plan of Care Visit completed when applicable SIGNATURE: Bright Thao APRN.EVELIN PATIENT NAME: Oseas Joseph DATE: July 18, 2024 TIME: 2:07 PM Allergies As of Date: 07/18/2024 (No Known Allergies) Date Reviewed: 07/18/2024 Reviewed by: Bright Thao APRN.PATTERNMAKER APPRENTICE WOOD - Fully Assessed Reason for Visit: Procedure [88] Cmt: Bmbx Visit Diagnoses:Multiple myeloma not having achieved remission (HCC) [C90.00] Examination of participant in clinical trial [Z00.6] Order(s):BONE MARROW ASPIRATE ANDBIOPSY [[id number]] Order #: [id number]: 1 BONE MARROW ANALYSIS [SQBMRT] Order #: [id number]. #:[id number] BONE MARROW CHROMOSOME ANAL [SQCHRBMH] Order #: [id number]. #:[id number] DNA EXTRACTION BONE MARROW (BUFFY COAT) [SQNUCBUF] Order #: [id number]. #:[id number] FLOW CYTOMETRY FOR LEUKEMIA/LYMPHOMA (FCLL) [KJU3454] Order #: [id number]. #:[id number] FISH FOR PLASMA CELL MYELOMA [SQFSHPCM] Order #: [id number]. #:[id number] MISC SEND OUT TST 1 [SQMISC1] Order #: [id number]. #:[id number] FLOW CYTOMETRY FOR LEUKEMIA/LYMPHOMA (FCLL) PERFORMABLE [HQG8804] Reflex Order#: [id number] (Ord#:[id number])Spec. #:[id number] BONE MARROW BIOPSY [PRO6] Order #: [id number] FLOW CYTOMETRY FOR LEUKEMIA/LYMPHOMA (FCLL) REFLEX [CCT9929] Reflex Order#: [id number] (Ord#:[id number])Spec. #:[id number] Prescriptions as of 07/19/2024 - lenalidomide (REVLIMID) 5 mg capsule Take 1 capsule by mouth once daily. - XARELTO 20 mg tablet TAKE 1 TABLET BY MOUTH ONCE D (more content not included)... Normal [facility] Comprehensive metabolic 2000 panelon 07-18-2024 Albumin [Mass/Vol] 4.0 g/dL Normal 3.9-4.9 [facility] Comment on above: Order Comment: Speci men Type: BLOOD SPECIMENOrdering Facility: [facility] Address: [address] [place] [address] Performed By: #### 2 4323-8 ####[facility] [id number] [place] [address] [place] ALP [Catalytic activity/Vol] 50 U/L Normal 38-113 [facility] Comment on above: Order Comment: Speci men Type: BLOOD SPECIMENOrdering Facility: [facility] Address: [address] [place] [address] Performed By: #### 2 4323-8 ####[facility]ITALWNCLIA [id number] [place] [address] [place] ALT [Catalytic activity/Vol] 12 U/L Normal 10-54 [facility] Comment on above: Order Comment: Speci men Type: BLOOD SPECIMENOrdering Facility: [facility] Address: [address] [place] [address] Performed By: #### 2 4323-8 ####[facility] [id number] [place] [address] [place] Anion gap [Moles/Vol] 10 mmol/L Normal 8-15 [facility] Comment on above: Order Comment: Speci men Type: BLOOD SPECIMENOrdering Facility: [facility] Address: [address] [place] [address] Performed By: #### 2 4323-8 ####[facility] [id number] [place] [address] [place] AST [Catalytic activity/Vol] 12 U/L Low 14-40 [facility] Comment on above: Order Comment: Speci men Type: BLOOD SPECIMENOrdering Facility: [facility] Address: [address] [place] [address] Performed By: #### 2 4323-8 ####[facility] [id number] [place] [address] [place] Bilirubin [Mass/Vol] 0.4 mg/dL Normal 0.2-1.3 [facility] Comment on above: Order Comment: Speci men Type: BLOOD SPECIMENOrdering Facility: [facility] Address: [address] [place], [place] [address] Performed By: #### 2 4323-8 ####[facility]ONCLIA [id number] [place] [address] [place] Calcium [Mass/Vol] 9.4 mg/dL Normal 8.5-10.2 [facility] Comment on above: Order Comment: Speci men Type: BLOOD SPECIMENOrdering Facility: [facility] Address: [address] [place] [address] Performed By: #### 2 4323-8 ####[facility] ORLANDONCLIA [id number] [place] [address] [place] Chloride [Moles/Vol] 109 mmol/L High 98-107 [facility] Comment on above: Order Comment: Speci men Type: BLOOD SPECIMENOrdering Facility: [facility] Address: [address] [place] [address] Performed By: #### 2 4323-8 ####[facility] JOVANNAGREENSBORONCSHASTAA [id number] [place] [address] [place] CO2 [Moles/Vol] 23 mmol/L Normal 22-30 [facility] Comment on above: Order Comment: Speci men Type: BLOOD SPECIMENOrdering Facility: [facility] Address: [address] [place] [address] Performed By: #### 2 4323-8 ####[facility] [id number] [address] [place] Creatinine [Mass/Vol] 1.18 mg/dL Normal 0.73-1.22 [facility] Comment on above: Order Comment: Speci men Type: BLOOD SPECIMENOrdering Facility: [facility] Address: [address] [place] [address] Performed By: #### 2 4323-8 ####[facility] ORLANDONCLIA [id number] [address] OF [facility] Creatinine and Glomerular filtration rate.predicted panel (S/P/Bld) 66 mL/min/1.73m??? Normal >=60 [facility] Comment on above: Order Comment: Speci men Type: BLOOD SPECIMENOrdering Facility: [facility] Address: [address] [place] [address] Result Comment: Ct mated Glomerular Filtration Rate (eGFR) is calculated using the 2020 CKD-EPI creatinine equation. This equation utilizes serum creatinine, sex, and age as parameters. The creatinine assay has traceable calibration to isotope dilution-mass spectrometry. Refer to KDIGO guidelines for clinical interpretation. In patients with unstable renal function, e.g. those with acute kidney injury, the eGFR may not accurately reflect actual GFR. Performed By: #### 2 4323-8 ####[facility] HOSPITALWNCLIA [id number] [place] [address] [place] Glucose [Mass/Vol] 87 mg/dL Normal 74-99 [facility] Comment on above: Order Comment: Speci men Type: BLOOD SPECIMENOrdering Facility: [facility] Address: [address] [place], [place] [address] Result Comment: The [place] Diabetes Association (ADA) provides guidance for cutoff values for fasting glucose and random glucose. The ADA defines fasting as no caloric intake for at least 8 hours. Fasting plasma glucose results between 100 to 125 mg/dL indicate increased risk for diabetes (prediabetes). Fasting plasma glucose results greater than or equal to 126 mg/dL meet the criteria for diagnosis of diabetes. In the absence of unequivocal hyperglycemia, results should be confirmed by repeat testing. In a patient with classic symptoms of hyperglycemia or hyperglycemic crisis, random plasma glucose results greater than or equal to 200 mg/dL meet the criteria for diagnosis of diabetes. Reference: Standards of Medical Care in Diabetes 2016, [place] Diabetes Association. Diabetes Care. 2016.39(Suppl 1). Performed By: #### 2 4323-8 ####[facility]ENCYTOWNCLIA [id number] [place] [address] [place] Potassium [Moles/Vol] 4.3 mmol/L Normal 3.7-5.1 [facility] Comment on above: Order Comment: Speci men Type: BLOOD SPECIMENOrdering Facility: [facility] Address: [address] [place], [place] [address] Performed By: #### 2 4323-8 ####[facility] EMERGENCYTOWNCLIA [id number] [place] [address] [place] Protein [Mass/Vol] 6.6 g/dL Normal 6.3-8.0 [facility] Comment on above: Order Comment: Speci men Type: BLOOD SPECIMENOrdering Facility: [facility] Address: [address] [place], [place] [address] Performed By: #### 2 4323-8 ####[facility] MILLWNCLIA [id number] [place] [address] [place] Sodium [Moles/Vol] 142 mmol/L Normal 136-144 [facility] Comment on above: Order Comment: Speci men Type: BLOOD SPECIMENOrdering Facility: [facility] Address: [address] [place] [address] Performed By: #### 2 4323-8 ####[facility] [id number] [place] [address] [place] Urea nitrogen [Mass/Vol] 20 mg/dL Normal 9-24 [facility] Comment on above: Order Comment: Speci men Type: BLOOD SPECIMENOrdering Facility: [facility] Address: [address] [place] [address] Performed By: #### 2 4323-8 ####[facility] [id number] [address] [place] DNA EXTRACTION BONE MARROW ( BUFFY COAT)on 07-18-2024 DNA EXTRACTION BONE MARROW (BUFFY COAT) Normal [facility] Comment on above: Order Comment: Speci men Type: BONE MARROW SPECIMENOrdering Facility: [facility] Address: [address] [place] [address] Result Comment: This specimen was received and successfully processed for future DNA purification should molecular testing be needed. Specimens will be available for 3 years from date of collection. To order testing on this specimen for [facility] patients, please place an [facility] order for DNA and RNA Clinical Testing (SQNUCADD). To order testing for patients outside of the [facility] system, please request DNA and RNA for Clinical Testing, order code [id number]. If additional paperwork is required for testing, please send completed forms via secure email to . Performed By: #### N UCBUF ####[facility] LIMSCLIA [id number] [address] [place] FISH FOR PLASMA CELL MYELOMA on 07-18-2024 FISH FOR PLASMA CELL MYELOMA Normal [facility] Comment on above: Order Comment: Speci men Type: BONE MARROW SPECIMENOrdering Facility: [facility] Address: [facility] [place] [address] Result Comment: FISH for Plasma Cell Myeloma Laboratory Accession Number: [id number] Case: [id number] Sample type: Bone Marrow Aspirate Number of nuclei scored: 100 per probe Received Date: 2024-07-19 06:28:08 RESULT: Result 1p32 (CDKN2C): Normal pattern 1q21 (CKS1B): Normal pattern 13q14 (RB1): Normal pattern 17p13 (TP53): Normal pattern INTERPRETATION: The plasma cells analyzed displayed a normal signal pattern with all probes tested. This result does not rule out the possibility of a plasma cell neoplasm. Clinical and pathological correlation is recommended. Please note: Previous FISH analysis with the full panel of plasma cell myeloma probes was performed on this individual. Therefore, only the above probe sets were utilized in the current analysis (PMID: [id number]). REFERENCE RANGE: Reference ranges for the 13q14/17p13, 1p32/1q21: Normal Range = 0-20% if at least 100 cells scored If fewer than 100 cells scored, then report if positive when >19 abnormal nuclei found If <20 plasma cells counted, report as insufficient REFERENCES: 1) Joplin E et al. The International Consensus Classification of Mature Lymphoid Neoplasms: a report from the Clinical Advisory Committee. Blood. 2021 15;140(11):9632-0019 (PMID: 23017094) 2) Pawan SK, Dolores SV. The multiple myelomas - current concepts in cytogenetic classification and therapy. Armida Rev Oncol. 2018;15(7):409-421 (PMID: 12927005) 3) Reji JR et al. Management of newly diagnosed symptomatic multiple myeloma: updated Taylor Stratification of Myeloma and Risk- Adapted Therapy (mSMART) consensus guidelines 2013. Taylor Clin Proc 2013 Jan;88(4):360-76 (PMID: 31018951) 4) Nichol HAMILTON et al. Consensus recommendations for risk stratification in multiple myeloma: report of the International Myeloma Workshop Consensus Panel 2. Blood 2010February 24;117(18):1710-5093 (PMID: 48897974) METHODOLOGY: Bone marrow plasma cells were isolated by CD138 purification (Robosep, [facility]. [facility]). Interphase fluorescence in situ hybridization was performed using probes to the CDKN2C locus on chromosome 1p32 ([employer] V[employer]/Cytocell), CKS1B locus on chromosome 1q21 ([employer] V[employer]/Cytocell), 13q14 ([employer], [facility] [place]), and the TP53 locus on chromosome 17p13 (Oliv[employer] Vysis). 100 plasma cells were scored whenever possible. DISCLAIMER: This test was developed and its performance characteristics determined by [facility]'s Pathology and Laboratory Medicine Department. It has not been cleared or approved by the FDA. [facility] Pathology and Laboratory Medicine Department is regulated under CLIA as certified to perform high-complexity testing. This test is used for clinical purposes. It should not be regarded as investigational or for research. Interpretation performed at [facility], [address] [place] [address]. CLIA Number: [id number] As reviewed by Sophie Woods MD, PhD Performed By: #### F SHP ####[facility] LIMSCLIA [id number] [place] [address] [place] FLOW CYTOMETRY FOR LEUKEMIA/ LYMPHOMA (FCLL) PERFORMABLEon 07-18-2024 FLOW CYTOMETRY ORDER STATUS Results will be reported under F case ID when completed Normal [facility] Comment on above: Order Comment: Speci men Type: BONE MARROW SPECIMENOrdering Facility: [facility] Address: [address] [place] [address] Performed By: #### F CLLRFLX, FCLLP ####[facility] LABCLIA [id number] [place] [address] [place] FLOW CYTOMETRY FOR LEUKEMIA/ LYMPHOMA (FCLL) REFLEXon 07-18-2024 DIAGNOSIS COMMENT Normal [facility] Comment on above: Order Comment: Speci men Type: BONE MARROW SPECIMENOrdering Facility: [facility] Address: [address] [place] [address] Result Comment: This assay is not designed to detect minimal residual disease or myeloid antigen maturational patterns. This test was developed and its performance characteristics determined by [facility]'s [facility] Pathology [facility] Laboratory Medicine [place] ([facility]). It has not been cleared or approved by the FDA. [facility] is regulated under CLIA as qualified to perform high-complexity testing. This test is used for clinical purposes. It should not be regarded as investigational or for research. Performed By: #### F CLLRFLX, FCLLP ####[facility] LABCLIA [id number] [address] OF [facility] FINAL PERFORMING LAB Normal [facility] Comment on above: Order Comment: Speci men Type: BONE MARROW SPECIMENOrdering Facility: [facility] Address: [address] [place] [address] Result Comment: Diag nostic interpretation performed at [facility], [address] [place] [address] CLIA# [id number] Shot Packer: Deepak Prajapait M.D. Performed By: #### F CLLRFLX, FCLLP ####[facility] LABCLIA [id number] [address] FLOW CYTOMETRY RESULTS Normal [facility] Comment on above: Order Comment: Speci men Type: BONE MARROW SPECIMENOrdering Facility: [facility] Address: [address] [place] [address] Result Comment: Spec imen type: Bone Marrow Aspirate. Viability: 99%. Results: Flow Cytometry Bone Marrow Immunophenotyping Marker Normal Cell Type Result (Lymphocytes) CD3 T-cells Normal Pattern CD4 T-cell subset Normal Pattern CD5 T-cells Normal Pattern CD7 T/NK-cells Normal Pattern CD8 T-cell subset Normal Pattern CD13 Myeloid Normal Pattern CD16/56 NK cells Normal Pattern CD19 B-cells Normal Pattern CD34 Blasts Normal Pattern CD45 Hatch-leukocyte Normal Pattern kappa/lambda B-cells Polytypic Flow Cytometry Bone Marrow Plasma Cell Immunophenotyping Marker Normal Cell Type Result (Plasma Cells) CD19 B lymphocyte Normal Pattern CD20 B lymphocyte Normal Pattern CD27 Plasma cell Normal Pattern VS38c Plasma cell Normal Pattern CD45 Leukocyte Normal Pattern CD56 NK cell Normal Pattern CD81 Plasma cell Normal Pattern CD117 Progenitor cell Normal Pattern CD138 Plasma cell Normal Pattern CD229 Plasma cell Normal Pattern cKappa/cLambda Plasma cell Polytypic Flow cytometric analysis of the bone marrow aspirate reveals that 21% of total events have the CD45 and light scatter properties of lymphocytes. The lymphocytes are composed of T-cells (56%, CD4:CD8 ratio = 1.94), NK cells (33%), and polytypic B-cells (8%). Granulocytic elements are 62% of events. Blasts are not increased. Small populations of hematogones (2%) are present. Plasma cells are 0.08% of total events according to the staining properties. The plasma cells are polytypic and phenotypically unremarkable. KST/ 07/19/2024 Performed By: #### F CLLRFLXVAISHNAVIP ####[facility] LABCLIA [id number] [address] [place] GROSS DESCRIPTION A. Bone Marrow Normal [facility] Comment on above: Order Comment: Jessica [facility] Type: BONE MARROW SPECIMENOrdering Facility: [facility] Address: [address] [place] [address] Result Comment: Rece ived 4 ml BM in heparin. Performed By: #### F CLLRFLXVAISHNAVIP ####[facility]ITALIA [id number] [place] [address] [place] INTERPRETATION Normal [facility] Comment on above: Order Comment: Jessica cesar Type: BONE MARROW SPECIMENOrdering Facility: [facility] Address: [address] [place] [address] Result Comment: Ther e is no evidence of involvement by a lymphoproliferative disorder, plasma cell neoplasm, or abnormal blast population. Correlation with the clinical laboratory, radiologic, and bone marrow histopathologic findings is suggested. Performed By: #### F CLLRFLXVAISHNAVIP ####[facility] LABCLIA [id number] [address] [place] B2 Microglob SerPl-mCncon Spvi-2-Srvflyyzklrbl [Mass/Vol] 2.6 ug/mL Normal <3.1 [facility] Comment on above: Order Comment: Speci men Type: BLOOD SPECIMENOrdering Facility: [facility] Address: [address] [place] [address] Result Comment: Beta -2 Microglobulin test is performed using the [employer] immunoturbidimetric method. Results obtained with different methods or kits cannot be used interchangeably. Performed By: #### 1 952-1, 2885-2 ####[facility] LABCLIA [id number] [facility] [place] [address] [place] CBC W Auto Differential pane l (Bld)on 06-27-2024 Basophils (Bld) [#/Vol] 0.04 10*3/uL Normal <0.11 [facility] Comment on above: Order Comment: Speci men Type: BLOOD SPECIMENOrdering Facility: [facility] Address: [address] [place] [address] Performed By: #### 5 7021-8 ####[facility] [id number] [place] [address] [place] Basophils/100 WBC (Bld) 1.3 % Normal [facility] Comment on above: Order Comment: Speci men Type: BLOOD SPECIMENOrdering Facility: [facility] Address: [address] [place] [address] Performed By: #### 5 7021-8 ####[facility] [id number] [place] [address] [place] Differential cell count method Nom (Bld) Auto Normal [facility] Comment on above: Order Comment: Speci men Type: BLOOD SPECIMENOrdering Facility: [facility] Address: [address] [place] [address] Performed By: #### 5 7021-8 ####[facility] INSTITUTELIA [id number] [place] [address] [place] Eosinophils (Bld) [#/Vol] 0.19 10*3/uL Normal <0.46 [facility] Comment on above: Order Comment: Speci men Type: BLOOD SPECIMENOrdering Facility: [facility] Address: [address] [place] [address] Performed By: #### 5 7021-8 ####[facility] [id number] [place] [address] [place] Eosinophils/100 WBC (Bld) 6.4 % Normal [facility] Comment on above: Order Comment: Speci men Type: BLOOD SPECIMENOrdering Facility: [facility] Address: [address] [place] [address] Performed By: #### 5 7021-8 ####[facility] [id number] [place] [address] [place] Erythrocyte distribution width (RBC) [Ratio] 13.2 % Normal 11.5-15.0 [facility] Comment on above: Order Comment: Speci men Type: BLOOD SPECIMENOrdering Facility: [facility] Address: [address] [place] [address] Performed By: #### 5 7021-8 ####[facility] [id number] [place] [address] [place] Hematocrit (Bld) [Volume fraction] 39.2 % Normal 39.0-51.0 [facility] Comment on above: Order Comment: Speci men Type: BLOOD SPECIMENOrdering Facility: [facility] Address: [address] [place] [address] Performed By: #### 5 7021-8 ####[facility]STITUTELIA [id number] [place] [address] [place] Hemoglobin (Bld) [Mass/Vol] 13.3 g/dL Normal 13.0-17.0 [facility] Comment on above: Order Comment: Speci men Type: BLOOD SPECIMENOrdering Facility: [facility] Address: [address] [place] [address] Performed By: #### 5 7021-8 ####[facility] MILLTOWNCLIA [id number] [place] [address] [place] Immature granulocytes (Bld) [#/Vol] 10*3/uL Normal <0.10 [facility] Comment on above: Order Comment: Speci men Type: BLOOD SPECIMENOrdering Facility: [facility] Address: [address] [place] [address] Performed By: #### 5 7021-8 ####[facility] MILLWNCLIA [id number] [place] [address] [place] Immature granulocytes/100 WBC (Bld) 0.7 % Normal [facility] Comment on above: Order Comment: Speci men Type: BLOOD SPECIMENOrdering Facility: [facility] Address: [address] [place] [address] Performed By: #### 5 7021-8 ####[facility]ONCLIA [id number] [place] [address] [place] Lymphocytes (Bld) [#/Vol] 1.04 10*3/uL Normal 1.00-4.00 [facility] Comment on above: Order Comment: Speci men Type: BLOOD SPECIMENOrdering Facility: [facility] Address: [address] [place] [address] Performed By: #### 5 7021-8 ####[facility] MILLTOWNCLIA [id number] [place] [address] [place] Lymphocytes/100 WBC (Bld) 34.8 % Normal [facility] Comment on above: Order Comment: Speci men Type: BLOOD SPECIMENOrdering Facility: [facility] Address: [address] [place] [address] Performed By: #### 5 7021-8 ####[facility] MILLWNCLIA [id number] [place] [address] [place] MCH (RBC) [Entitic mass] 31.2 pg Normal 26.0-34.0 [facility] Comment on above: Order Comment: Speci men Type: BLOOD SPECIMENOrdering Facility: [facility] Address: [address] [place] [address] Performed By: #### 5 7021-8 ####[facility]OJARRED [id number] [place] [address] [place] MCHC (RBC) [Mass/Vol] 33.9 g/dL Normal 30.5-36.0 [facility] Comment on above: Order Comment: Speci men Type: BLOOD SPECIMENOrdering Facility: [facility] Address: [address] [place] [address] Performed By: #### 5 7021-8 ####[facility]ONCAura [id number] [place] [address] [place] MCV (RBC) [Entitic vol] 92.0 fL Normal 80.0-100.0 [facility] Comment on above: Order Comment: Speci men Type: BLOOD SPECIMENOrdering Facility: [facility] Address: [address] [place] [address] Performed By: #### 5 7021-8 ####[facility] [id number] [place] [address] [place] Monocytes (Bld) [#/Vol] 0.32 10*3/uL Normal <0.87 [facility] Comment on above: Order Comment: Speci men Type: BLOOD SPECIMENOrdering Facility: [facility] Address: [address] [place] [address] Performed By: #### 5 7021-8 ####[facility]CLIA [id number] [place] [address] [place] Monocytes/100 WBC (Bld) 10.7 % Normal [facility] Comment on above: Order Comment: Speci men Type: BLOOD SPECIMENOrdering Facility: [facility] Address: [address] [place] [address] Performed By: #### 5 7021-8 ####[facility] JOVANNAGREENSBOROJOYLIA [id number] [place] [address] [place] Neutrophils (Bld) [#/Vol] 1.38 10*3/uL Low 1.45-7.50 [facility] Comment on above: Order Comment: Speci men Type: BLOOD SPECIMENOrdering Facility: [facility] Address: [address] [place] [address] Performed By: #### 5 7021-8 ####[facility] [id number] [place] [address] [place] Neutrophils/100 WBC (Bld) 46.1 % Normal [facility] Comment on above: Order Comment: Speci men Type: BLOOD SPECIMENOrdering Facility: [facility] Address: [address] [place] [address] Performed By: #### 5 7021-8 ####[facility] [id number] [place] [address] [place] Nucleated RBC (Bld) [#/Vol] 10*3/uL Normal <0.01 [facility] Comment on above: Order Comment: Speci men Type: BLOOD SPECIMENOrdering Facility: [facility] Address: [address] [place] [address] Performed By: #### 5 7021-8 ####[facility] [id number] [place] [address] [place] Nucleated RBC/100 WBC (Bld) [Ratio] 0.0 /100 WBC Normal [facility] Comment on above: Order Comment: Speci men Type: BLOOD SPECIMENOrdering Facility: [facility] Address: [address] [place] [address] Performed By: #### 5 7021-8 ####[facility] MILLMARKWNCLIA [id number] [place] [address] [place] Platelet mean volume (Bld) [Entitic vol] 9.3 fL Normal 9.0-12.7 [facility] Comment on above: Order Comment: Speci men Type: BLOOD SPECIMENOrdering Facility: [facility] Address: [address] [place] [address] Performed By: #### 5 7021-8 ####[facility] JOVANNAWJOYLIA [id number] [place] [address] [place] Platelets (Bld) [#/Vol] 157 10*3/uL Normal 150-400 [facility] Comment on above: Order Comment: Speci men Type: BLOOD SPECIMENOrdering Facility: [facility] Address: [address] [place] [address] Performed By: #### 5 7021-8 ####[facility] HOSPITALSARAHLIA [id number] [place] [address] [place] RBC (Bld) [#/Vol] 4.26 10*6/uL Normal 4.20-6.00 [facility] Comment on above: Order Comment: Speci men Type: BLOOD SPECIMENOrdering Facility: [facility] Address: [address] [place], [place] [address] Performed By: #### 5 7021-8 ####[facility] TONYWNCLIA [id number] [place] [address] [place] WBC (Bld) [#/Vol] 2.99 10*3/uL Low 3.70-11.00 [facility] Comment on above: Order Comment: Speci men Type: BLOOD SPECIMENOrdering Facility: [facility] Address: [address] [place] [address] Performed By: #### 5 7021-8 ####[facility]LANDOJOYAura [id number] [place] [id number] [place] [address] [place] CNNURSEon 06-27-2024 CNNURSE Nurse Visit (LUANA) -------- OSEAS JOSEPH ([id number]) 1950 M BONE MAR* Date Time Provider Department 06/27/24 TEMO GILL During your visit today, we recorded the following information about you: Temo Gill RN 08/26/2024 2:34 PM Addendum IRB # [id number], [facility]# SWOG [id number] study entitled Phase III Study of Daratumumab/rHuPH20 (NSC- [id number]) + Lenalidomide or Lenalidomide as Post-Autologous Stem Cell Transplant Maintenance Therapy in Patients with Multiple Myeloma (MM) Using Minimal Residual Disease to Direct Therapy Duration (DRAMMATIC Study). Registration Information: Informed Consent Signed 01/03/2023 Registered Step 1 01/06/2023 Informed Consent Signed Step 2 07/22/2023 Randomization Date: 08/18/2023 Addendum 11/16/2023 Treatment Arm: TAC- 1 Lenalidomide Study ID [id number] Consent to optional samples Yes Study Status Active Patient was here for C12 - came at the last day of cycle 11. Patient doing much better overall per family and patient. The patient saw ENT for hearing aids. Patient saw neurologist and has some follow-up exams. Discussed upcoming bmbx timeline. Scheduled. Treatment Plan: Treatment Previous Cycle Cycle Current Start Date Frequency End date Lenalidomide Cycle 1 Day 1 08/24/2023 Dose Reduced 05/12/2024 5mg ycle 11 05/30/2024-06/26/2024 = 96% Cycle 12 06/27/2024-07/25/2024 10/19/2023 Daily, Cycle every 28 days Clinical Trial Specific Testing Test Dates Completed Due Date Bone Marrow Biopsy CTD 07/24/2023 Baseline Step 2 [x] 07/18/2024 12 months post Step 2 [] 07/24/2025 24 months post Step 2 [] 07/24/2026 36 months post Step 2 [] 07/24/2027 48 months post Step 2 [] QOLs PRO-CTCAE 08/17/2023 (Baseline) [x] 08/24/2023 (Cycle 1) [x] 09/21/2023 (Cycle 2) [x] 10/19/2023 (Cycle 3) [x] 11/16/2023 (Cycle 4) [x] 12/14/2023 (Cycle 5) [x] 01/11/2024 (Cycle 6) [x] 02/08/2024 (Cycle 7) [x] 03/07/2024 (Cycle 8) [x] 04/04/2024 (Cycle 9) [x] 05/02/2024 (Cycle 10) [x] 05/29/2024 (Cycle 11) [x] 06/27/2024 (Cycle 12) [x] Day 1 of every cycle Baseline Weight (08/24/2023 date) 80.7 kg Current Weight 83.2 kg Creatinine Clearance 59.3 ml/min ECOG per ECOG- 1 Bone Marrow - Plasma Cell % Free Light Chains M Protein Date Size (mm) Date Dakota Lambda * IGG Date Serum Urine Diagnosis 08/24/2022 20% Diagnosis 10/26/2022 11.7 43.5 Diagnosis 10/26/2022 1.12 M protein present Baseline 07/30/2023 Less than 5%* Baseline 08/07/2023 4.7 2.5 Enrollment 07/31/2023 Cycle 1 0.22 0.00 08/24/2023 Cycle 1 4.1* 2.4* 08/24/2023 Cycle 1 0.28 0.00 09/21/2023 Cycle 2 11.7 8.7 09/21/2023 Cycle 2 0.17 0.01 10/19/2023 Cycle 3 15.5 10.5 10/19/2023 Cycle 3 0.16 0.01 11/16/2023 Cycle 4 17.4 21.4 11/16/2023 Cycle 4 0.20 0.00 12/14/2023 Cycle 5 19.4 23.1 12/14/2023 Cycle 5 0.00* 0.00 01/11/2024 Cycle 6 25.8 19.4 01/11/2024 Cycle 6 0.15 0.00 02/08/2024 Cycle 7 24.2 20.4 02/08/2024 Cycle 7 0.00* 0.00 03/07/2024 Cycle 8 22.0 15.3 03/07/2024 Cycle 8 0.23 0.0 04/04/2024 Cycle 9 22.4 17.5 04/04/2024 Cycle 9 0.24 0.00 05/02/2024 Cycle 10 23.2 16.5 05/02/2024 Cycle 10 0.00* 0.00 05/29/2024 Cycle 11 23.7 15.3 05/29/2024 Cycle 11 0.00* 0.00 06/27/2024 Cycle 12 27.7 19.3 06/27/2024 Cycle 12 0.25 0.00 Lowest/Jacque = * 06/27/24 Weight 83.2 kg (183 lb 8 oz) BSA 0 BMI 0 Temp 36.7 ?C (98.1 ?F) Resp 16 Pulse 62 BP 108/66 SpO2 99 % Drug Accountability/Education - Completed on 06/27/2024. Patient given Cycle 12 diary. Patient did return cycle 11 - reviewed edits with patient. Use of the study medication diary and dosing instructions were reviewed with the patient. Patient verbalizes understanding of dosing of Revlimid: Capsules should be taken whole, with water, once daily (patient takes at HS). If a dose is missed, and it has been less than 12 hours since the preceding dose, the patient should take lenalidomide as soon as the patient remembers. If it has been more than 12 hours, the patient should skip the missed dose. Patient took 27/28 pills for the cycle - determining 96% compliance Missed one day due to stomach bug Patient receives drug from a private pharmacy. Lenalidomide Education and Counseling completed. Patient counseled on potential exposure to lenalidomide by , engage in abstinence or use a condom when engaging in sexual contact with WOCBP, notify study doctor if female partner becomes , never share drug with anyone else, not to donate blood, semen, or sperm while taking drug and for 28 days after. Concomitant medications reviewed per protocol: Yes Patient reported changes to medication list: No changes since last visit. Current medications: Current use of anticoagulants: YES (see medications below if applicable) Anticoagulants: Eliquis 5 mg Current use of herbal preparations or (more content not included)... Normal [facility] CNOVSPon 06-27-2024 OVSP Visit (SP) Office (HEMAWS) -------- OSEAS JOSEPH ([id number]) 1950 M BONE MAR* Date Time Provider Department 06/27/24 9:00 AM TREATMENT RM [facility] During your visit today, we recorded the following information about you: Referring Provider: CONNIE MCCAIN [[id number]] Allergies As of Date: 06/27/2024 (No Known Allergies) Date Reviewed: 06/27/2024 Reviewed by: Orlando Quijano MA - Fully Assessed Reason for Visit: Non-Chemotherapy Treatment [795] Primary Visit Diagnosis:Multiple myeloma not having achieved remission (HCC) [C90.00] Order(s):PHARMACY COMMUNICATION PATIENT ARRIVEDDisp: Rfl: [] zoledronic gt-hyxyoeyo-7.9NaCl 4 mg iv piggyback 100 mL (ZOMETA)Disp: Rfl: BCN NURSING COMMUNICATION [[id number]] Order #: [id number]: 1 STANDING Prescriptions as of 06/27/2024 - lenalidomide (REVLIMID) 5 mg capsule Take 1 capsule by mouth once daily. - XARELTO 20 mg tablet TAKE 1 TABLET BY MOUTH ONCE DAILY WITH DINNER - acyclovir (ZOVIRAX) 400 mg tablet Take 1 tablet by mouth two times a day. - sildenafil (VIAGRA) 50 mg tablet Take 50 mg by mouth as needed. - loperamide HCl (IMODIUM ORAL) Take by mouth as needed. - glimepiride (AMARYL) 2 mg tablet Take 1 tablet by mouth daily with breakfast. Take 2 mg twice a day. May increase to 4mg BID if your PCP requests so. - ondansetron (ZOFRAN) 8 mg tablet Take 1 tablet by mouth every 8 hours as needed for nausea/vomiting. - clonazePAM (KLONOPIN) 0.5 mg tablet Take 0.5 mg by mouth once daily. - amLODIPine (NORVASC) 5 mg tablet Take 10 mg by mouth once daily. - atorvastatin (LIPITOR) 10 mg tablet Take 10 mg by mouth once daily. - losartan (COZAAR) 50 mg tablet Take 50 mg by mouth once daily. 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] 08/25/2022 04/17/2023 Multiple myeloma not having achieved remission *10/26/2022 Thrombocytopenia, unspecified (HCC) [D69.6] 02/13/2023 02/08/2024 Personal history of diseases of blood and blood*03/30/2023 Mixed hyperlipidemia [E78.2] 04/17/2023 Primary hypertension [I10] 04/17/2023 Type 2 diabetes mellitus, without long-term cur*04/17/2023 Right bundle branch block [I45.10] 04/17/2023 Blurred vision [H53.8] 04/18/2023 Insomnia [G47.00] 04/18/2023 Multiple myeloma and immunoproliferative neopla*05/31/2023 Chronic diarrhea [K52.9] Chronic 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 acute cor pu* CINV (chemotherapy-induced nausea and vomiting)* Immunocompromised (HCC) [D84.9] Pancytopenia (HCC) [D61.818] 08/24/2023 Autologous bone marrow transplantation status (* Other constipation [K59.09] 06/03/2023 06/06/2023 Pancytopenia due to antineoplastic chemotherapy*06/06/2023 KYE (acute kidney injury) (HCC) [N17.9] 06/11/2023 Right thigh pain [M79.651] 01/02/2024 Muscle pain [M79.10] 01/02/2024 Weakness of right lower extremity [R29.898] 01/02/2024 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 HPI: The patient is a 74-year-old male with a past medical history significant for type 2 diabetes, high cholesterol, hypertension and right bundle branch block. Patient originally presented to the emergency room at [facility] on 04/19/2022 with new onset of confusion that day which had been worsening. Laboratory work-up significant for hypokalemia. CT of the brain was unremarkable. He was admitted. During hospitalization it was noted that he had been having diarrhea for 6 to 8 weeks. Stool studies were positive for Campylobacter, blood and lactoferrin. C. difficile was negative. CT of the abdomen pelvis on 04/21/2022 noted abnormal pericholecystic edema without gallstones. Renal cysts and colonic diverticulosis were noted. He was found to have elevation of sed rate to 39, CRP 134. His albumin was 2.3. IgA low at 37. He was discharged on azithromycin, potassium and magnesium supplement. He was seen in the outpatient setting for follow-up visit on 07/11/2022. He continued to have one episode of explosive diarrhea daily. This had been going on for about 8 months. CBC on 07/11 showed a white count of 6400. Differential was normal. Hemoglobin 14.9 g/dL. Platelet count 275,000. Chemistries significant for creatinine of 1.29 g/dL. Previously 1.13 g/dL on 04/27/2022. Calcium was 9.3 mg/dL. Total bilirubin, AST, ALT and alkaline phosphatase were normal. LDH was 181. C-reactive protein was less than 2.09. Total protein was 8.8 g/dL. Total IgG was 2462 mg/dL. IgA decreased to 28 mg/dL. IgM normal at 32 mg/dL. On protein electrophoresis, patient was found to have 2M spikes both IgG lambda by immunofixation. For spike was quantitated at 1.2 g/dL and the second was quantitated at 0.6 g/dL. Cytoplasmic and perinuclear ANCA both negative. Atypical p-ANCA negative. Patient described diarrhea as loose, eran stools sometimes explosive typically one bowel movement per day however. He had not observed any blood. Had a colonoscopy December [address] Arteaga. His appetite was normal. He had not lost weight. Denied reflux and nausea. He did get abdominal bloating associated with the diarrhea. He denied musculoskeletal pain. He denied symptoms of sensory neuropathy. He sees an team supervisor once a year for dilated exam. He has not been told he has retinopathy. Recent removal of early melanoma back. Blue nevus right ankle--required WLE--scheduled. PMR--about 15 years ago. - Patient underwent colonoscopy on 09/21/2022. Preparation of the colon was fair. -One 6 mm polyp at the ileocecal valve, removed with a hot snare. Resected and retrieved. -One 5 mm polyp in the ascending colon, removed with a hot snare. Resected and retrieved. -Congested mucosa in the descending colon, at the splenic flexure, in the ascending colon and in the cecum. Biopsied. -Diverticulosis in the recto-sigmoid colon, in the sigmoid colon and in the descending colon. -Stool in the rectum, in the sigmoid colon, in the descending colon and at the hepatic flexure. Fluid aspiration performed. -The examined portion of the ileum was normal. Biopsied. Pathology: A. Ileocecal valve polyp, biopsy: -Consistent with fibrolipomatous polyp. -See comment. B. Small bowel, biopsy: -No pathologic change. C. Cecum, biopsy: -Mild melanosis coli. D. Colon, random biopsy: -Mild melanosis coli. E. Ascending colon polyp, biopsy: -Fragments of tubular adenoma. B, C, D AND E - No congophilic material identified. Congo red stain with matched control is negative. ADDENDUM C AND D. No congophilic material is noted in these biopsies on light and polarized microscopy. Congo Red stain with matched control was used in the evaluation of this case. He was diagnosed with pancreatic insufficiency and was to start pancreatic enzyme replacement. Patient had a venous duplex ultrasound on 12/16/2022 for right leg pain. That study demonstrated no evidence of DVT in the right leg. He developed chest pain and increasing shortness of breath. Went to the ED on 01/16/2023. PE protocol chest CT demonstrated multiple bilateral pulmonary emboli involving the distal portion of both the right and left main pulmonary arteries as well as branches of the upper and lower lobe pulmonary arteries, more prominent on the right side. Platelet count was 67,000. Patient was admitted and placed on unfractionated heparin with b (more content not included)... Normal [facility] Comprehensive metabolic 2000 panelon 06-27-2024 Albumin [Mass/Vol] 4.0 g/dL Normal 3.9-4.9 [facility] Comment on above: Order Comment: Jessica cesar Type: BLOOD SPECIMENOrdering Facility: [facility] Address: [address] [place] [address] Performed By: #### 2 4323-8, 0 ####[facility] [id number] [place] [address] [place] ALP [Catalytic activity/Vol] 51 U/L Normal 38-113 [facility] Comment on above: Order Comment: Homeroi men Type: BLOOD SPECIMENOrdering Facility: [facility] Address: [address] [place] [address] Performed By: #### 2 4328, 0 ####[facility] NOLAN MILLTOWNCLIA [id number] [place] [address] [place] ALT [Catalytic activity/Vol] 13 U/L Normal 10-54 [facility] Comment on above: Order Comment: Speci men Type: BLOOD SPECIMENOrdering Facility: [facility] Address: [address] [place] [address] Performed By: #### 2 4328, 2531-0 ####[facility] MILLTOWNCLIA [id number] [place] [address] [place] Anion gap [Moles/Vol] 10 mmol/L Normal 8-15 [facility] Comment on above: Order Comment: Speci men Type: BLOOD SPECIMENOrdering Facility: [facility] Address: [address] [place] [address] Performed By: #### 2 4328, 0 ####[facility] [id number] [place] [address] [place] AST [Catalytic activity/Vol] 15 U/L Normal 14-40 [facility] Comment on above: Order Comment: Speci men Type: BLOOD SPECIMENOrdering Facility: [facility] Address: [address] [place] [address] Performed By: #### 2 4328, 0 ####[facility] MILLTOWNCLIA [id number] [place] [address] [place] Bilirubin [Mass/Vol] 0.5 mg/dL Normal 0.2-1.3 [facility] Comment on above: Order Comment: Speci men Type: BLOOD SPECIMENOrdering Facility: [facility] Address: [address] [place] [address] Performed By: #### 2 432-8, 2531-0 ####[facility] MILLGREENSBOROJOYLIA [id number] [place] [address] [place] Calcium [Mass/Vol] 9.4 mg/dL Normal 8.5-10.2 [facility] Comment on above: Order Comment: Speci men Type: BLOOD SPECIMENOrdering Facility: [facility] Address: [address] [place] [address] Performed By: #### 2 4323-8, 2532-0 ####[facility] MILLTOWJOYLIA [id number] [place] [address] [place] Chloride [Moles/Vol] 108 mmol/L High 98-107 [facility] Comment on above: Order Comment: Speci men Type: BLOOD SPECIMENOrdering Facility: [facility] Address: [address] [place] [address] Performed By: #### 2 4323-8, 2532-0 ####[facility] [id number] [place] [address] [place] CO2 [Moles/Vol] 22 mmol/L Normal 22-30 [facility] Comment on above: Order Comment: Speci men Type: BLOOD SPECIMENOrdering Facility: [facility] Address: [address] [place] [address] Performed By: #### 2 4323-8, 2532-0 ####[facility] MILLWJOYLIA [id number] [place] [address] [place] Creatinine [Mass/Vol] 1.28 mg/dL High 0.73-1.22 [facility] Comment on above: Order Comment: Speci men Type: BLOOD SPECIMENOrdering Facility: [facility] Address: [address] [place] [address] Performed By: #### 2 4323-8, 2532-0 ####[facility] MILLTOWNCLIA [id number] [place] [address] [place] Creatinine and Glomerular filtration rate.predicted panel (S/P/Bld) 59 mL/min/1.73m??? Low >=60 [facility] Comment on above: Order Comment: Jessica cesar Type: BLOOD SPECIMENOrdering Facility: [facility] Address: [address] [place] [address] Result Comment: Ct mated Glomerular Filtration Rate (eGFR) is calculated using the 2020 CKD-EPI creatinine equation. This equation utilizes serum creatinine, sex, and age as parameters. The creatinine assay has traceable calibration to isotope dilution-mass spectrometry. Refer to KDIGO guidelines for clinical interpretation. In patients with unstable renal function, e.g. those with acute kidney injury, the eGFR may not accurately reflect actual GFR. Performed By: #### 2 4323-8, 2531-0 ####[facility] [id number] [place] [address] [place] Glucose [Mass/Vol] 238 mg/dL High 74-99 [facility] Comment on above: Order Comment: Jessica cesar Type: BLOOD SPECIMENOrdering Facility: [facility] Address: [address] [place] [address] Result Comment: The [place] Diabetes Association (ADA) provides guidance for cutoff values for fasting glucose and random glucose. The ADA defines fasting as no caloric intake for at least 8 hours. Fasting plasma glucose results between 100 to 125 mg/dL indicate increased risk for diabetes (prediabetes). Fasting plasma glucose results greater than or equal to 126 mg/dL meet the criteria for diagnosis of diabetes. In the absence of unequivocal hyperglycemia, results should be confirmed by repeat testing. In a patient with classic symptoms of hyperglycemia or hyperglycemic crisis, random plasma glucose results greater than or equal to 200 mg/dL meet the criteria for diagnosis of diabetes. Reference: Standards of Medical Care in Diabetes 2016, [place] Diabetes Association. Diabetes Care. 2016.39(Suppl 1). Performed By: #### 2 4323-8, 2531-0 ####[facility] [id number] [place] [address] [place] Potassium [Moles/Vol] 4.4 mmol/L Normal 3.7-5.1 [facility] Comment on above: Order Comment: Speci men Type: BLOOD SPECIMENOrdering Facility: [facility] Address: [address] [place] [address] Performed By: #### 2 4323-8, 2531-0 ####[facility] JOVANNAWNCLIA [id number] [place] [address] [place] Protein [Mass/Vol] 6.3 g/dL Normal 6.3-8.0 [facility] Comment on above: Order Comment: Speci men Type: BLOOD SPECIMENOrdering Facility: [facility] Address: [address] [place] [address] Performed By: #### 2 4323-8, 2531-0 ####[facility] [id number] [place] [address] [place] Sodium [Moles/Vol] 140 mmol/L Normal 136-144 [facility] Comment on above: Order Comment: Speci men Type: BLOOD SPECIMENOrdering Facility: [facility] Address: [address] [place] [address] Performed By: #### 2 4323-8, 2531-0 ####[facility] [id number] [place] [address] [place] Urea nitrogen [Mass/Vol] 18 mg/dL Normal 9-24 [facility] Comment on above: Order Comment: Speci men Type: BLOOD SPECIMENOrdering Facility: [facility] Address: [address] [place] [address] Performed By: #### 2 4323-8, 2531-0 ####[facility] [id number] [place] [address] [place] IMMUNOFIXATION SCREEN, SERUM on 06-27-2024 INTERPRETATION (MPA) Atypical restricted bands are present in the IgG and lambda regions. Consistent with IgG lambda monoclonal gammopathy. Normal [facility] Comment on above: Order Comment: Speci men Type: BLOOD SPECIMEN [facility] Address: [address] [place] [address] Performed By: #### 2 532-0 #### [facility] CLIA [id number] [address] [place] [address] [place] MPA RESULT M protein is present. Abnormal No M protein is identified. [facility] Comment on above: Order Comment: Speci men Type: BLOOD SPECIMEN [facility] Address: [address] [place] [address] Performed By: #### 2 532-0 #### [facility] CLIA [id number] [address] [place] [address] [place] STAFF REVIEW (MPA) Reviewed by Eugenie Pickens MD Normal [facility] Comment on above: Order Comment: Speci men Type: BLOOD SPECIMEN [facility] Address: [address] [place] [address] Performed By: #### 2 532-0 #### [facility] CLIA [id number] [address] [place] [address] [place] IMMUNOGLOBULINS,IGG,IGA,IGMo n 06-27-2024 IgA [Mass/Vol] 58 mg/dL Low 70-400 [facility] Comment on above: Order Comment: Speci men Type: BLOOD SPECIMENOrdering Facility: [facility] Address: [address] [place] [address] Performed By: #### S ERIMM ####[facility] LABCLIA [id number] [place] [address] [place] IgG [Mass/Vol] 975 mg/dL Normal 700-1600 [facility] Comment on above: Order Comment: Speci men Type: BLOOD SPECIMENOrdering Facility: [facility] Address: [address] [place] [address] Performed By: #### S ERIMM ####[facility] LABCLIA [id number] [place] [address] [place] IgM [Mass/Vol] 14 mg/dL Low 40-230 [facility] Comment on above: Order Comment: Speci men Type: BLOOD SPECIMENOrdering Facility: [facility] Address: [address] [place] [address] Performed By: #### S ERIMM ####[facility] LABCLIA [id number] [place] [address] [place] KAPPA/SUAZO,FREE,SERon 2023 Immunoglobulin light chains.kappa.free (S) [Mass/Vol] 27.7 mg/L High 3.3-19.4 [facility] Comment on above: Order Comment: Speci men Type: BLOOD SPECIMENOrdering Facility: [facility] Address: [address] [place] [address] Result Comment: Rare ly, increased serum free light chains levels may not be detected or accurately quantified due to prozone phenomenon or in high viscosity samples using this immunoturbidimetric assay. Correlation with other laboratory results and clinical findings is recommended. The [place] Free Light Chain was performed using the Binding Site Optilite immunoturbidimetric method. Result obtained with different assay methods or kits cannot be used interchangeably. Performed By: #### K LFRS ####[facility] LABCLIA [id number] [place] [address] [place] Immunoglobulin light chains.kappa/Immunoglo bulin light chains.lambda (S) [Mass ratio] 1.44 Normal 0.26-1.65 [facility] Comment on above: Order Comment: Speci men Type: BLOOD SPECIMENOrdering Facility: [facility] Address: [address] [place] [address] Performed By: #### K LFRS ####[facility] LABCLIA [id number] [place] [address] [place] Immunoglobulin light chains.lambda.free [Mass/Vol] 19.3 mg/L Normal 5.7-26.3 [facility] Comment on above: Order Comment: Speci men Type: BLOOD SPECIMENOrdering Facility: [facility] Address: [address] [place] [address] Result Comment: Rare ly, increased serum free light chains levels may not be detected or accurately quantified due to prozone phenomenon or in high viscosity samples using this immunoturbidimetric assay. Correlation with other laboratory results and clinical findings is recommended. The Lambda Free Light Chain was performed using the Binding Site Optilite immunoturbidimetric method. Result obtained with different assay methods or kits cannot be used interchangeably. Performed By: #### K LFRS ####[facility] LABCLIA [id number] [place] [address] [place] LDH SerPl-cCncon 06-27-2024 LDH [Catalytic activity/Vol] 147 U/L Normal 135-225 [facility] Comment on above: Order Comment: Speci men Type: BLOOD SPECIMENOrdering Facility: [facility] Address: [address] [place] [address] Result Comment: Hemo lysis present. The origin of the hemolysis, in vitro versus an in vivo hemolytic process, cannot be distinguished via this assay alone. In vitro hemolysis may lead to non-physiological (spurious) elevation in lactate dehydrogenase (LDH) results. The result should be interpreted in context of the clinical setting and other test results. Suggest reorder as clinically indicated. Performed By: #### 2 4323-8, 2532-0 ####[facility] [id number] [place] [address] [place] MONOCLONAL PROT 24 UR W/INTE RPon 06-27-2024 STAFF REVIEW (PA) Reviewed by Eugenie Pickens MD Normal [facility] Comment on above: Order Comment: Speci men Type: TIMED URINE SPECIMENOrdering Facility: [facility] Address: [address] [place] [address] Performed By: #### U [id number] ####[facility] LABCLIA [id number] [place] [address] [place] UMPA RESULT No M protein is identified. Normal No M protein is identified. [facility] Comment on above: Order Comment: Speci men Type: TIMED URINE SPECIMENOrdering Facility: [facility] Address: [address] [place] [address] Performed By: #### U [id number] ####[facility] LABIA [id number] [place] [address] [place] PROT ELEC UR 24HR W/M SPIKE (P)on 06-27-2024 Albumin/Globulin Elph (24H U) [Mass ratio] 41.59 % Normal [facility] Comment on above: Order Comment: Speci men Type: URINE SPECIMENOrdering Facility: [facility] Address: [address] [place] [address] Performed By: #### L [id number] ####[facility] LABIA [id number] [place] [address] [place] Alpha 1 globulin Elph (24H U) [Mass fraction] 1.38 % Normal [facility] Comment on above: Order Comment: Speci men Type: URINE SPECIMENOrdering Facility: [facility] Address: [address] [place] [address] Performed By: #### L [id number] ####[facility] LABIA [id number] [place] [address] [place] Alpha 2 globulin Elph (24H U) [Mass fraction] 14.70 % Normal [facility] Comment on above: Order Comment: Speci men Type: URINE SPECIMENOrdering Facility: [facility] Address: [address] [place] [address] Performed By: #### L [id number] ####[facility] LABIA [id number] [place] [address] [place] Beta globulin Elph (24H U) [Mass fraction] 22.28 % Normal [facility] Comment on above: Order Comment: Speci men Type: URINE SPECIMENOrdering Facility: [facility] Address: [address] [place] [address] Performed By: #### L [id number] ####[facility] LABIA [id number] [place] [address] [place] Gamma globulin Elph (24H U) [Mass fraction] 20.05 % Normal [facility] Comment on above: Order Comment: Speci men Type: URINE SPECIMENOrdering Facility: [facility] Address: [address] [place] [address] Performed By: #### L [id number] ####[facility] LABIA [id number] [place] [address] [place] Protein Fractions Elph Joey (24H U) [Interp] No definitive M protein is identified on protein electrophoresis. Normal No definitive M protein is identified on protein electrophor esis. [facility] Comment on above: Order Comment: Speci men Type: URINE SPECIMENOrdering Facility: [facility] Address: [address] [place] [address] Performed By: #### L [id number] ####[place] [id number] [place] [address] [place] Protein.monoclonal Elph (24H U) [Mass/Time] 0.00 g/24hr Normal [facility] Comment on above: Order Comment: Speci men Type: URINE SPECIMENOrdering Facility: [facility] Address: [address] [place] [address] Performed By: #### L [id number] ####[facility] LABIA [id number] [address] [place] STAFF REVIEW ([id number]) Reviewed by Eugenie Pickens MD Normal [facility] Comment on above: Order Comment: Speci men Type: URINE SPECIMENOrdering Facility: [facility] Address: [address] [place] [address] Performed By: #### L [id number] ####[facility] LABIA [id number] [place] [address] [place] PROTEIN ELECTROPHORESIS SERU M (P)on 06-27-2024 Albumin [Mass/Vol] 3.82 g/dL Normal 3.43-5.41 [facility] Comment on above: Order Comment: Speci men Type: BLOOD SPECIMENOrdering Facility: [facility] Address: [address] [place] [address] Performed By: #### L [id number] ####[facility] LABIA [id number] [place] [address] [place] Alpha 1 globulin Elph [Mass/Vol] 0.27 g/dL Normal 0.18-0.43 [facility] Comment on above: Order Comment: Speci men Type: BLOOD SPECIMENOrdering Facility: [facility] Address: [address] [place] [address] Performed By: #### L [id number] ####[facility] LABIA [id number] [place] [address] [place] Alpha 2 globulin Elph [Mass/Vol] 0.59 g/dL Normal 0.42-0.98 [facility] Comment on above: Order Comment: Speci men Type: BLOOD SPECIMENOrdering Facility: [facility] Address: [address] [place] [address] Performed By: #### L [id number] ####[facility] LABIA [id number] [place] [address] [place] Beta globulin Elph [Mass/Vol] 0.59 g/dL Low 0.61-1.17 [facility] Comment on above: Order Comment: Speci men Type: BLOOD SPECIMENOrdering Facility: [facility] Address: [address] [place] [address] Performed By: #### L [id number] ####[facility] LABCLIA [id number] [place] [address] [place] Gamma globulin Elph [Mass/Vol] 0.82 g/dL Normal 0.53-1.51 [facility] Comment on above: Order Comment: Speci men Type: BLOOD SPECIMENOrdering Facility: [facility] Address: [address] [place] [address] Performed By: #### L [id number] ####[facility] LABCLIA [id number] [place] [address] [place] INTERPRETATION COMMENT FOR PROTEIN ELECTROPHORESIS Normal [facility] Comment on above: Order Comment: Speci men Type: BLOOD SPECIMENOrdering Facility: [facility] Address: [address] [place] [address] Result Comment: See separate immunofixation report for characterization of monoclonal gammopathy. M protein is present on the background of a polyclonal immunoglobulin population. Quantitation of the M protein may overestimate the amount of M protein present. Performed By: #### L [id number] ####[facility] LABCLIA [id number] [place] [address] [place] M-PROTEIN LOCATION Gamma Fraction 1 Normal [facility] Comment on above: Order Comment: Speci men Type: BLOOD SPECIMENOrdering Facility: [facility] Address: [address] [place] [address] Performed By: #### L [id number] ####[facility] LABCLIA [id number] [place] [address] [place] Protein Fractions [Interp] An M protein is identified on protein electrophoresis. Abnormal No definitive M protein is identified on protein electrophor esis. [facility] Comment on above: Order Comment: Speci men Type: BLOOD SPECIMENOrdering Facility: [facility] Address: [address] [place] [address] Performed By: #### L [id number] ####[facility] LABCLIA [id number] [place] [address] [place] Protein.monoclonal Elph [Mass/Vol] 0.25 g/dL High <=0.00 [facility] Comment on above: Order Comment: Speci men Type: BLOOD SPECIMENOrdering Facility: [facility] Address: [address] [place] [address] Performed By: #### L [id number] ####[facility] LABIA [id number] [place] [id number] [place] [facility] SPE STAFF REVIEW Reviewed by Eugenie Pickens MD [facility] Comment on above: Order Comment: Speci men Type: BLOOD SPECIMENOrdering Facility: [facility] Address: [address] [place] [address] Performed By: #### L [id number] ####[facility] LABIA [id number] [place] [address] [place] Prot 24h Ur-mRateon 06-27-20 24 Protein (24H U) [Mass/Time] 0.18 g/24 Hr High <0.15 [facility] Comment on above: Order Comment: Speci men Type: URINE SPECIMENOrdering Facility: [facility] Address: [address] [place] [address] Result Comment: Adul t Proteinuria Categories: <0.15 g/24 hours is considered normal to mildly increased 0.15 - 0.50 g/24 hours is considered moderately increased >0.50 g/24 hours is considered severely increased KDIGO. (2013). KDIGO 2012 Clinical Practice Guideline for the Evaluation and Management of Chronic Kidney Disease. Official Journal of the International Society of Nephrology, 3(1), 1-150. Performed By: #### 2 889-4 ####[facility] LABIA [id number] [place] [id number] [place] [facility] [id number] [place] [address] [place] Prot SerPl-mCncon 06-27-2024 Protein [Mass/Vol] 6.1 g/dL Low 6.3-8.0 [facility] Comment on above: Order Comment: Speci men Type: BLOOD SPECIMENOrdering Facility: [facility] Address: [address] [place] [address] Performed By: #### 1 952-1, 2885-2 ####[facility] LABCLIA [id number] [place] [address] [place] Protein (24H U) [Mass/Time]o n 06-27-2024 PERIOD (HRS) 24 hr Normal [facility] Comment on above: Order Comment: Speci men Type: URINE SPECIMENOrdering Facility: [facility] Address: [address] [place] [address] Performed By: #### 2 889-4 ####[facility] LABIA [id number] [id number] [place] [address] Specimen volume (24H U) 1.75 L Normal [facility] Comment on above: Order Comment: Speci men Type: URINE SPECIMENOrdering Facility: [facility] Address: [address] [place] [address] Performed By: #### 2 889-4 ####[facility] LABIA [id number] [address] [id number] [place] [address] [place] CREATININE, ISTATOrdered By: Ally De Los Santos on 03-07-2024 Creatinine [Mass/Vol] 1.20 mg/dL 0.60 - 1.30 mg/dL [facility] GFR/1.73 sq M.predicted among non-blacks MDRD (S/P/Bld) [Vol rate/Area] 65 mL/min/{1.73_m2} - PINF [facility] Comment on above: Estimated Glomerular Filtration Rate (eGFR) is calculated using the 2020 CKD-EPI creatinine equation. This equation utilizes serum creatinine, sex, and age as parameters. The creatinine assay has traceable calibration to isotope dilution-mass spectrometry. Refer to KDIGO guidelines for clinical interpretation. In patients with unstable renal function, e.g. those with acute kidney injury, the eGFR may not accurately reflect actual GFR. Interpretation and review of laboratory results Normal [facility] Culture, Blood (WB)on 2023 CUB No growth in 5 days. Normal [facility] Comment on above: Performed By: #### L 501.5200, L500.4050, L501.2300, L100.0100 #### [facility] [address] [place], [address] Performed By: #### L 501.080 #### [facility] [address] [place], [address] Basic Metabolic Profile (BMP )on 02-02-2024 BUN/CRE 8.1 RATIO Low 10-20 [facility] Comment on above: Performed By: #### L 500.2500, L100.0500, L501.2300 #### [facility] [address] [place], [address] CA,Total 8.2 mg/dL Low 8.5-10.1 [facility] Comment on above: Performed By: #### L 500.2500, L100.0500, L501.2300 #### [facility] [address] [place], [address] Chloride [Moles/Vol] 116 mmol/L High 98-107 [facility] Comment on above: Performed By: #### L 500.2500, L100.0500, L501.2300 #### [facility] [address] [place], [address] CO2 [Moles/Vol] 20.0 mmol/L Low 21.0-32.0 [facility] Comment on above: Performed By: #### L 500.2500, L100.0500, L501.2300 #### [facility] [address] [place], [address] Creatinine [Mass/Vol] 1.11 mg/dL Normal 0.70-1.30 [facility] Comment on above: Result Comment: The validity of the calculated GFR GFRAA in patients over 70 years has not been determined. Clinical correlation is essential. Performed By: #### L 500.2500, L100.0500, L501.2300 #### [facility] [address] [place], [address] ECRCL 67.00 ml/min Normal [facility] Comment on above: Performed By: #### L 500.2500, L100.0500, L501.2300 #### [facility] [address] [place], [address] EST GFR - AA 84 mL/min Normal >60 [facility] Comment on above: Result Comment: Afri can Greek GFR Calc Performed By: #### L 500.2500, L100.0500, L501.2300 #### [facility] [address] [place], [address] GAP 6 Normal 5-15 [facility] Comment on above: Performed By: #### L 500.2500, L100.0500, L501.2300 #### [facility] [address] [place], [address] GFR/1.73 sq M.predicted among non-blacks MDRD (S/P/Bld) [Vol rate/Area] 69 mL/min/{1.73_m2} Normal >60 [facility] Comment on above: Result Comment: Non- GFR Calc Performed By: #### L 500.2500, L100.0500, L501.2300 #### [facility] [address] [place], [address] Glucose [Mass/Vol] 119 mg/dL High 74-106 [facility] Comment on above: Result Comment: Fast ing Glucose result from 100 to 125 mg/dL suggests IMPAIRED HOMEOSTASIS per A.D.A. criteria. Performed By: #### L 500.2500, L100.0500, L501.2300 #### [facility] [address] [place], [address] Potassium [Moles/Vol] 3.1 mmol/L Low 3.5-5.1 [facility] Comment on above: Performed By: #### L 500.2500, L100.0500, L501.2300 #### [facility] [address] [place], [address] Sodium [Moles/Vol] 142 mmol/L Normal 136-145 [facility] Comment on above: Performed By: #### L 500.2500, L100.0500, L501.2300 #### [facility] [address] [place], [address] Urea nitrogen [Mass/Vol] 9 mg/dL Normal 7-18 [facility] Comment on above: Performed By: #### L 500.2500, L100.0500, L501.2300 #### [facility] [address] [place], [address] Basophil percentageOrdered B y: Estrella Ramos on 02-02-2024 Basophil percentage 2.3 mg/dL 2.5-4.9 [facility] Chloride [Moles/Vol] 116 mmol/L 98-107 [facility] Glucose [Mass/Vol] 119 mg/dL 74-106 [facility] Comment on above: Fasting Glucose resu lt from 100 to 125 mg/dL suggests IMPAIRED HOMEOSTASIS per A.D.A. criteria. Hemoglobin (Bld) [Mass/Vol] 11.5 g/dL 13.0-16.5 [facility] Potassium [Moles/Vol] 3.1 mmol/L 3.5-5.1 [facility] Sodium [Moles/Vol] 142 mmol/L 136-145 [facility] WBC (Bld) [#/Vol] 1.9 10*3/uL 4.4-11.0 [facility] Bedside Glucoseon 02-02-2024 FINGERSTICK GLU 109 mg/dL High 74-106 [facility] Comment on above: Result Comment: PEGGY PARKINSON OF PATIENT CARE PER NURSING PROTOCOL Performed By: #### L 501.080 #### [facility] [address] [place], [address] CBC W/Diff, Automatedon - PATH REV Reviewed Normal [facility] Comment on above: Result Comment: Panc ytopenia. Leukopenia and neutropenia. Normocytic anemia. MILD Thrombocytopenia. Clinical correlation necessary. Damon Mondragon M.D. 02/02/24 AMENDED REPORT 02/02/24 0850 PATH REV previously reported as: Marjorie cleveland Performed By: #### L 501.5200, L500.4050, L501.2300, L100.0100 #### [facility] [address] [place], [address] Result Comment: Panc ytopenia. Leukopenia and neutropenia. Normocytic anemia. MILD Thrombocytopenia. Clinical correlation necessary. Damon Mondragon M.D. 02/02/24 AMENDED REPORT 02/02/24 0849 PATH REV previously reported as: Marjorie [place] CBC-Complete Blood Cnt No Di ffon 02-02-2024 Erythrocyte distribution width (RBC) [Ratio] 14.3 % Normal 11.6-14.6 [facility] Comment on above: Performed By: #### L 500.2500, L100.0500, L501.2300 #### [facility] [address] [place], [address] Hematocrit (Bld) [Volume fraction] 34.1 % Low 40-54 [facility] Comment on above: Performed By: #### L 500.2500, L100.0500, L501.2300 #### [facility] [address] [place], [address] Hemoglobin (Bld) [Mass/Vol] 11.5 g/dL Low 13.0-16.5 [facility] Comment on above: Performed By: #### L 500.2500, L100.0500, L501.2300 #### [facility] [address] [place], [address] MCH (RBC) [Entitic mass] 29.9 pg Normal 27.0-32.0 [facility] Comment on above: Performed By: #### L 500.2500, L100.0500, L501.2300 #### [facility] [address] [place], [address] MCHC (RBC) [Mass/Vol] 33.7 g/dL Normal 32-36 [facility] Comment on above: Performed By: #### L 500.2500, L100.0500, L501.2300 #### [facility] [address] [place], [address] MCV (RBC) [Entitic vol] 88.8 fL Normal 80-94 [facility] Comment on above: Performed By: #### L 500.2500, L100.0500, L501.2300 #### [facility] [address] [place], [address] Platelet mean volume (Bld) [Entitic vol] 10.8 fL Normal 6.2-12.0 [facility] Comment on above: Performed By: #### L 500.2500, L100.0500, L501.2300 #### [facility] [address] [place], [address] Platelets (Bld) [#/Vol] 147 10*3/uL Low 150-450 [facility] Comment on above: Performed By: #### L 500.2500, L100.0500, L501.2300 #### [facility] [address] [place], [address] RBC (Bld) [#/Vol] 3.84 10*6/uL Low 4.6-6.2 [facility] Comment on above: Performed By: #### L 500.2500, L100.0500, L501.2300 #### [facility] [address] [place], [address] RDW SD 46.1 fl High 35.1-43.9 [facility] Comment on above: Performed By: #### L 500.2500, L100.0500, L501.2300 #### [facility] [address] [place], [address] WBC (Bld) [#/Vol] 1.9 10*3/uL Low 4.4-11.0 [facility] Comment on above: Performed By: #### L 500.2500, L100.0500, L501.2300 #### [facility] [address] [place], [address] CDIFF (PCR)on 02-02-2024 CDIFF Is the patient recei ving laxatives? N New/unexplained onset of 3 or more stools in past 24 hrs? Y A positive C. difficile molecular test does not differentiate between an active C. difficile infection and C. difficile colonization. Use clinical judgement and paired toxin/antigen testing to identify true infection and need for treatment. C diff DNA Spec Ql KEVIN+probe Reference Range: Negative [employer] GeneXpert: polymerase chain reaction (PCR) 027 027 NAP1-B1 Presumptive Negative *for epidemiolologic???use C. Diff PCR Negative- No toxigenic C. Diff Detected Normal [facility] Comment on above: Performed By: #### L 501.5200, L500.4050, L501.2300, L100.0100 #### [facility] [address] [place], [address] Clostridioides difficile nuc leic acid assay by PCROrdered By: Estrella Ramos on 02-02-2024 C. difficile DNA KEVIN+probe Ql (Unsp spec) [facility] Determination of erythrocyte mean corpuscular volume (MCV)Ordered By: Estrella Ramos on 02-02-2024 MCV (RBC) [Entitic vol] 88.8 fL 80-94 [facility] ENTERIC PATHOGEN PANEL STOOL on 02-02-2024 EP PANEL Is the patient recei ving laxatives? N New/unexplained onset of 3 or more stools in past 24 hrs? Y Normal Reference Range = Not Detected GI pathogens Pnl Stl KEVIN+probe Campylobacter species detected to include one or more of the following: C. coli, C. jejuni, and C. juan. Susceptibility testing not routinely performed. Most Campylobacter infections are self-limiting but antimicrobial treatment (eg. macrolides, fluoroquinolones) may be needed in systemic cases or in severe or prolonged cases. ID consult is recommended in these cases. This is an amplified DNA test which makes it both specific and sensitive. GI pathogens Pnl Stl KEVIN+probe Copy of report sent to Infection Control Printer [id number] 02/02/24 5557 BLUCAS. CAMPYLOBACTER A Campylobacter sp. Detected A Norovirus Not Detected Rotavirus Not Detected Salmonella Not Detected Shiga Toxin Not Detected Shigella sp. Not Detected VIBRIO Not Detected Yersinia Not Detected Campylobacter species Normal [facility] Comment on above: Performed By: #### L 501.5200, L500.4050, L501.2300, L100.0100 #### [facility] [address] [place], [address] Erythrocyte distribution wid th ratioOrdered By: Estrella Ramos on 02-02-2024 Erythrocyte distribution width (RBC) [Ratio] 14.3 % 11.6-14.6 [facility] Erythrocyte distribution wid th standard deviationOrdered By: Estrella Ramos on 02-02-2024 Erythrocyte distribution width (RBC) [Entitic vol] 46.1 fL 35.1-43.9 [facility] Gastrointestinal pathogens p santiago KEVIN+probe (Stl)Ordered By: Estrella Ramos on 02-02-2024 Enteric Bacteriology Campylobacter species [facility] Hematocrit Auto (Bld) [Volum e fraction]Ordered By: Estrella Ramos on 02-02-2024 Hematocrit (Bld) [Volume fraction] 34.1 % 40-54 [facility] - Chemistry and C hemistry - challengeOrdered By: Estrella Ramos on 02-02-2024 CO2 [Moles/Vol] 20.0 mmol/L 21.0-32.0 [facility] Urea nitrogen/Creatinine [Mass ratio] 8.1 mg/mg 10-20 [facility] - Hematology and Cell countsOrdered By: Estrella Ramos on 02-02-2024 MCH (RBC) [Entitic mass] 29.9 pg 27.0-32.0 [facility] MCHC (RBC) [Mass/Vol] 33.7 g/dL 32-36 [facility] Platelet mean volume (Bld) [Entitic vol] 10.8 fL 6.2-12.0 [facility] Platelets (Bld) [#/Vol] 147 10*3/uL 150-450 [facility] No Panel InformationOrdered By: Estrella Ramos on 02-02-2024 Estimated Creatinine Clearance Calc 67.00 ml/min [facility] Estimated GFR (MDRD) Amer 84 mL/min >60 [facility] Comment on above: GFR Calc Estimated GFR (MDRD) Non-Af Amer 69 mL/min >60 [facility] Comment on above: Non- GFR Calc Phosphoruson 02-02-2024 Phosphate [Mass/Vol] 2.3 mg/dL Low 2.5-4.9 [facility] Comment on above: Performed By: #### L 501.5200, L500.4050, L501.2300, L100.0100 #### [facility] [address] [place], [address] RBC Auto (Bld) [#/Vol]Ordere d By: Estrella Ramos on 02-02-2024 RBC (Bld) [#/Vol] 3.84 10*6/uL 4.6-6.2 [facility] Serum or plasma calcium matt urement (mass/volume)Ordered By: Estrella Ramos on 02-02-2024 Calcium [Mass/Vol] 8.2 mg/dL 8.5-10.1 [facility] Serum or plasma creatinine m easurement (mass/volume)Ordered By: Estrella Ramos on 02-02-2024 Creatinine [Mass/Vol] 1.11 mg/dL 0.70-1.30 [facility] Comment on above: The validity of the calculated GFR & GFRAA in patients over 70 years has not been determined. Clinical correlation is essential. Serum or plasma urea nitroge n measurement (mass/volume)Ordered By: Estrella Ramos on 02-02-2024 Urea nitrogen [Mass/Vol] 9 mg/dL 7-18 [facility] Thin prep Papanicolaou smear with manual screeningOrdered By: Estrella Ramos on 02-02-2024 Thin prep Papanicolaou smear with manual screening 6 5-15 [facility] Thin prep Papanicolaou smear with manual screening 109 mg/dL 74-106 [facility] Comment on above: MANAGEMENT OF PATIEN T CARE PER NURSING PROTOCOL Absolute lymphocyte countOrd ered By: Eunice Asencio on 02-01-2024 Lymphocytes Auto (Unsp spec) [#/Vol] 0.47 10*3/uL 0.83-4.51 [facility] Automated lymphocyte count a s percentage of total leukocytesOrdered By: Eunice Asencio on 02-01-2024 Lymphocytes/100 WBC Auto (Unsp spec) 30.5 % 19-41 [facility] Basophil percentageOrdered B y: Eunice Asencio on 02-01-2024 Basophils/100 WBC (Bld) 1.9 % 0-1 [facility] Bilirubin [Mass/Vol] 0.80 mg/dL 0.20-1.00 [facility] Comment on above: For patients on eltr ombopag therapy, use of Dimension [place] TBIL is not recommended. Eosinophils/100 WBC (Bld) 3.9 % 0-5 [facility] Monocytes/100 WBC (Bld) 14.9 % 0-10 [facility] Neutrophils (Bld) [#/Vol] 0.7 10*3/uL 2.0-7.7 [facility] Neutrophils/100 WBC (Bld) 48.2 % 47-70 [facility] Protein [Mass/Vol] 5.8 g/dL 6.4-8.2 [facility] Bedside Glucoseon 02-01-2024 FINGERSTICK GLU 116 mg/dL High 74-106 [facility] Comment on above: Result Comment: PEGGY PARKINSON OF PATIENT CARE PER NURSING PROTOCOL Performed By: #### L 501.080 #### [facility] [address] [place], [address] FINGERSTICK GLU 106 mg/dL Normal 74-106 [facility] Comment on above: Result Comment: PEGGY GEMENT OF PATIENT CARE PER NURSING PROTOCOL Performed By: #### L 503.6005 #### [facility] [address] [place], [address] FINGERSTICK GLU 104 mg/dL Normal 74-106 [facility] Comment on above: Result Comment: PEGGY GEMENT OF PATIENT CARE PER NURSING PROTOCOL Performed By: #### L 501.5200, L500.4050, L501.2300, L100.0100 #### [facility] [address] [place], [address] FINGERSTICK GLU 103 mg/dL Normal 74-106 [facility] Comment on above: Result Comment: PEGGY GEMENT OF PATIENT CARE PER NURSING PROTOCOL Performed By: #### L 501.080 #### [facility] [address] [place], [address] Blood manual differential co mment interpretation (narrative result)Ordered By: Eunice Asencio on 02-01-2024 Manual differential comment Joey (Bld) [Interp] SCANNED [facility] Comprehensive Metabolic Prof ilon 02-01-2024 Albumin [Mass/Vol] 2.5 g/dL Low 3.2-5.0 [facility] Comment on above: Performed By: #### L 501.5200, L500.4050, L501.2300, L100.0100 #### [facility] [address] [place], [address] Albumin/Globulin [Mass ratio] 0.8 {ratio} Low 0.9-2.4 [facility] Comment on above: Performed By: #### L 501.5200, L500.4050, L501.2300, L100.0100 #### [facility] [address] [place], [address] ALK P 41 U/L Low 45-117 [facility] Comment on above: Performed By: #### L 501.5200, L500.4050, L501.2300, L100.0100 #### [facility] [address] [place], [address] ALT [Catalytic activity/Vol] 17 U/L Normal 16-61 [facility] Comment on above: Performed By: #### L 501.5200, L500.4050, L501.2300, L100.0100 #### [facility] [address] [place], [address] AST [Catalytic activity/Vol] 13 U/L Low 15-37 [facility] Comment on above: Performed By: #### L 501.5200, L500.4050, L501.2300, L100.0100 #### [facility] [address] [place], [address] Bilirubin [Mass/Vol] 0.80 mg/dL Normal 0.20-1.00 [facility] Comment on above: Result Comment: For patients on eltrombopag therapy, use of Dimension [place] TBIL is not recommended. Performed By: #### L 501.5200, L500.4050, L501.2300, L100.0100 #### [facility] [address] [place], [address] BUN/CRE 12.5 RATIO Normal 10-20 [facility] Comment on above: Performed By: #### L 501.5200, L500.4050, L501.2300, L100.0100 #### [facility] [address] [place], [address] CA,Total 7.5 mg/dL Low 8.5-10.1 [facility] Comment on above: Performed By: #### L 501.5200, L500.4050, L501.2300, L100.0100 #### [facility] [address] [place], [address] Chloride [Moles/Vol] 114 mmol/L High 98-107 [facility] Comment on above: Performed By: #### L 501.5200, L500.4050, L501.2300, L100.0100 #### [facility] [address] [place], [address] CO2 [Moles/Vol] 20.0 mmol/L Low 21.0-32.0 [facility] Comment on above: Performed By: #### L 501.5200, L500.4050, L501.2300, L100.0100 #### [facility] [address] [place], [address] Creatinine [Mass/Vol] 1.04 mg/dL Normal 0.70-1.30 [facility] Comment on above: Result Comment: The validity of the calculated GFR GFRAA in patients over 70 years has not been determined. Clinical correlation is essential. Performed By: #### L 501.5200, L500.4050, L501.2300, L100.0100 #### [facility] [address] [place], [address] ECRCL 71.51 ml/min Normal [facility] Comment on above: Performed By: #### L 501.5200, L500.4050, L501.2300, L100.0100 #### [facility] [address] [place], [address] EST GFR - AA 90 mL/min Normal >60 [facility] Comment on above: Result Comment: Afri can Greek GFR Calc Performed By: #### L 501.5200, L500.4050, L501.2300, L100.0100 #### [facility] [address] [place], [address] GAP 6 Normal 5-15 [facility] Comment on above: Performed By: #### L 501.5200, L500.4050, L501.2300, L100.0100 #### [facility] [address] [place], [address] GFR/1.73 sq M.predicted among non-blacks MDRD (S/P/Bld) [Vol rate/Area] 75 mL/min/{1.73_m2} Normal >60 [facility] Comment on above: Result Comment: Non- GFR Calc Performed By: #### L 501.5200, L500.4050, L501.2300, L100.0100 #### [facility] [address] [place], [address] Globulin (S) [Mass/Vol] 3.3 g/dL Normal 2.2-4.2 [facility] Comment on above: Performed By: #### L 501.5200, L500.4050, L501.2300, L100.0100 #### [facility] [address] [place], [address] Glucose [Mass/Vol] 110 mg/dL High 74-106 [facility] Comment on above: Result Comment: Fast ing Glucose result from 100 to 125 mg/dL suggests IMPAIRED HOMEOSTASIS per A.D.A. criteria. Performed By: #### L 501.5200, L500.4050, L501.2300, L100.0100 #### [facility] [address] [place], [address] Potassium [Moles/Vol] 3.0 mmol/L Low 3.5-5.1 [facility] Comment on above: Performed By: #### L 501.5200, L500.4050, L501.2300, L100.0100 #### [facility] [address] [place], [address] Sodium [Moles/Vol] 140 mmol/L Normal 136-145 [facility] Comment on above: Performed By: #### L 501.5200, L500.4050, L501.2300, L100.0100 #### [facility] [address] [place], [address] T PROT 5.8 g/dL Low 6.4-8.2 [facility] Comment on above: Performed By: #### L 501.5200, L500.4050, L501.2300, L100.0100 #### [facility] [address] [place], [address] Urea nitrogen [Mass/Vol] 13 mg/dL Normal 7-18 [facility] Comment on above: Performed By: #### L 501.5200, L500.4050, L501.2300, L100.0100 #### [facility] [address] [place], [address] Folates, (Folic Acid)on 01-21 FOLATES 19.60 ng/mL Normal 3.1-55.4 [facility] Comment on above: Order Comment: Has P atient had X-rays with Contrast this admission? NN Performed By: #### L 501.5200, L500.4050, L501.2300, L100.0100 #### [facility] [address] [place], [address] Hemoglobin A1con 02-01-2024 HbA1c (Bld) [Mass fraction] 6.0 % High 3.8-5.6 [facility] Comment on above: Result Comment: Norm al < 5.7 % Prediabetic 5.7 - 6.4 % Diabetic >or= 6.5 % Please note range changes. Performed By: #### L 501.5200, L500.4050, L501.2300, L100.0100 #### [facility] [address] [place], [address] Immature granulocytes/100 WB C Auto (Bld)Ordered By: Eunice Asencio on 02-01-2024 Immature granulocytes/100 WBC (Bld) 0.600 % 0.0-0.9 [facility] Comment on above: IG% - Immature Granu locytes (promyelocytes, myelocytes and metamyelocytes) > 1% indicates that a LEFT SHIFT is Present. Laboratory - Chemistry and C hemistry - challengeOrdered By: Eunice Asencio on 02-01-2024 Albumin/Globulin [Mass ratio] 0.8 {ratio} 0.9-2.4 [facility] ALP [Catalytic activity/Vol] 41 U/L 45-117 [facility] ALT [Catalytic activity/Vol] 17 U/L 16-61 [facility] Cobalamin (Vitamin B12) [Mass/Vol] 337 pg/mL 211-911 [facility] Globulin (S) [Mass/Vol] 3.3 g/dL 2.2-4.2 [facility] Magnesium [Mass/Vol] 2.0 mg/dL 1.6-2.6 [facility] Laboratory - Hematology and Cell countsOrdered By: Eunice Asencio on 02-01-2024 Nucleated RBC/100 WBC (Bld) [Ratio] 0 % 0-5 [facility] Lactic Acidon 02-01-2024 Lactate [Moles/Vol] 1.0 mmol/L Normal 0.4-1.9 [facility] Comment on above: Performed By: #### L 503.6008 #### [facility] [address] [place], [address] Magnesiumon 02-01-2024 Magnesium [Mass/Vol] 2.0 mg/dL Normal 1.6-2.6 [facility] Comment on above: Performed By: #### L 501.5200, L500.4050, L501.2300, L100.0100 #### [facility] [address] [place], [address] Phosphoruson 02-01-2024 Phosphate [Mass/Vol] 2.2 mg/dL Low 2.5-4.9 [facility] Comment on above: Performed By: #### L 501.5200, L500.4050, L501.2300, L100.0100 #### [facility] [address] [place], [place], [address] Review by pathologistOrdered By: Eunice Asencio on 02-01-2024 Pathologist review Joey (Unsp spec) [Interp] Reviewed [facility] Comment on above: Previous reported re sult: Marjorie cleveland Edited by: GEETHA on 02/02/24:0850Pancytopenia.Leukopenia and neutropenia.Normocytic anemia.MILD Thrombocytopenia.Clinical correlation necessary.Damon Mondragon M.D. 02/02/24 AMENDED REPORT 02/02/24 0850 PATH REV previously reported as: Marjorie cleveland Thin prep Papanicolaou smear with manual screeningOrdered By: Eunice Asencio on 02-01-2024 Thin prep Papanicolaou smear with manual screening 2.5 g/dL 3.2-5.0 [facility] Thin prep Papanicolaou smear with manual screening 13 U/L 15-37 [facility] Urine Cultureon 02-01-2024 URC Culture exhibits no growth. Normal [facility] Comment on above: Performed By: #### L 501.080 #### [facility] [address] [place], [place], [address] Urine Drug Screen (VISTA)on 02-01-2024 AMPHETAMINES Normal <1000 ng/mL [facility] Comment on above: Order Comment: U Result Comment: This specimen has been REJECTED due to Laboratory criteria: NO SAMPLE SENT. 02/02/24 0240 Caty Whitney Performed By: #### L 501.5200, L500.4050, L501.2300, L100.0100 #### [facility] [address] [place], [address] BARBITIURATES Normal < 200 ng/mL [facility] Comment on above: Order Comment: U Result Comment: This specimen has been REJECTED due to Laboratory criteria: NO SAMPLE SENT. 02/02/24 0240 Caty Whitney Performed By: #### L 501.5200, L500.4050, L501.2300, L100.0100 #### [facility] [address] [place], [address] BENZODIAZIPINE Normal < 200 ng/mL [facility] Comment on above: Order Comment: U Result Comment: This specimen has been REJECTED due to Laboratory criteria: NO SAMPLE SENT. 02/02/24239 Caty Whitney Performed By: #### L 501.5200, L500.4050, L501.2300, L100.0100 #### [facility] [address] [place], [address] COCAINE Normal < 300 ng/mL [facility] Comment on above: Order Comment: U Result Comment: This specimen has been REJECTED due to Laboratory criteria: NO SAMPLE SENT. 02/02/24239 Caty Whitney Performed By: #### L 501.5200, L500.4050, L501.2300, L100.0100 #### [facility] [address] [place], [address] DRUG CONFIRM Normal [facility] Comment on above: Order Comment: U Result Comment: This specimen has been REJECTED due to Laboratory criteria: NO SAMPLE SENT. 02/02/24239 Caty Whitney Performed By: #### L 501.5200, L500.4050, L501.2300, L100.0100 #### [facility] [address] [place], [address] ECSTACY Normal < 500 ng/mL [facility] Comment on above: Order Comment: U Result Comment: This specimen has been REJECTED due to Laboratory criteria: NO SAMPLE SENT. 02/02/24239 Caty Whitney Performed By: #### L 501.5200, L500.4050, L501.2300, L100.0100 #### [facility] [address] [place], [address] METHADONE Normal < 300 ng/mL [facility] Comment on above: Order Comment: U Result Comment: This specimen has been REJECTED due to Laboratory criteria: NO SAMPLE SENT. 02/02/24239 Catydavey Rodriguezell Performed By: #### L 501.5200, L500.4050, L501.2300, L100.0100 #### [facility] [address] [place], [address] OPIATES Normal < 300 ng/mL [facility] Comment on above: Order Comment: U Result Comment: This specimen has been REJECTED due to Laboratory criteria: NO SAMPLE SENT. 02/02/24239 Catydavey Rodriguezell Performed By: #### L 501.5200, L500.4050, L501.2300, L100.0100 #### [facility] [address] [place], [address] PCP Normal < 25 ng/mL [facility] Comment on above: Order Comment: U Result Comment: This specimen has been REJECTED due to Laboratory criteria: NO SAMPLE SENT. 02/02/24239 Catydavey Rodriguezell Performed By: #### L 501.5200, L500.4050, L501.2300, L100.0100 #### [facility] [address] [place], [address] THC Normal < 50 ng/mL [facility] Comment on above: Order Comment: U Result Comment: This specimen has been REJECTED due to Laboratory criteria: NO SAMPLE SENT. 02/02/24239 Catydavey Whitney Performed By: #### L 501.5200, L500.4050, L501.2300, L100.0100 #### [facility] [address] [place], [address] VISTA UDS PH Normal [facility] Comment on above: Order Comment: U Result Comment: This specimen has been REJECTED due to Laboratory criteria: NO SAMPLE SENT. 02/02/24239 Catydavey Rodriguezell Performed By: #### L 501.5200, L500.4050, L501.2300, L100.0100 #### [facility] [address] [place], [address] DRUG CONFIRM Normal [facility] Comment on above: Order Comment: U Result Comment: NO Y BLAS MARTINEZ FOUND IN LAB TO DO TEST, SPECIMEN NEEDED CONFIRMATORY TESTING FOR ALL POSITIVE URINE DRUG SCREEN RESULTS WILL ONLY BE SENT OUT UPON PHYSICIAN ORDER. VISTA Urine Drug Screen methods provide only preliminary analytical test results. A more specific alternate chemical method must be used in order to obtain a confirmed analytical result. Gas chromatography/mass spectrometery (GC/MS) is the preferred confirmatory method. Clinical consideration and professional judgement should be applied to any drug of abuse test result, particularly when preliminary positive results are used. URINE TCA TESTING MUST BE ORDERED SEPARATELY. USE TEST MNEMONIC: [facility] Performed By: #### L 501.5200, L500.4050, L501.2300, L100.0100 #### [facility] [address] [place], [address] Vitamin B12on 02-01-2024 Cobalamin (Vitamin B12) [Mass/Vol] 337 pg/mL Normal 211-911 [facility] Comment on above: Performed By: #### L 501.5200, L500.4050, L501.2300, L100.0100 #### [facility] [address] [place], [address] Whole blood hemoglobin A1c/t otal hemoglobin ratio (mass fraction)Ordered By: Eunice Asencio on 02-01-2024 HbA1c (Bld) [Mass fraction] 6.0 % 3.8-5.6 [facility] Comment on above: Normal < 5.7 % Predi abetic 5.7 - 6.4 % Diabetic >or= 6.5 % Please note range changes. 12 Lead EKGon 01-31-2024 12 Lead EKG [facility] [address] [facility] [place] [address] 12 Lead EKG 01/31/24 1818 MR#: [id number] Acct: [id number] Name: OSEAS JOSEPH Rep #: [id number] : 1950 73 From: Thom Yan MD Attending Dr: Dr. Estrella Ramos DO Status: ADM I N Ordering Dr: Gabriel Howard DO Date: 01/31/24 Location: [facility] Sex: M C Admitted: 01/31/24 Test Reason : Blood Pressure : / mmHG Vent. Rate : 062 BPM Atrial Rate : 062 BPM P-R Int : 144 ms QRS Dur : 148 ms QT Int : 474 ms P-R-T Axes : 056 -28 032 degrees QTc Int : 481 ms Sinus rhythm with occasional Premature ventricular complexes Right bundle branch block Abnormal ECG Confirmed by Thom Yan ([id number]), production editor MARLY LIND ([id number]) on 02/02/2024 7:15:44 AM Referred By: Es Confirmed By:Thom Yan 02/02/24 0715 Date Thom Yan MD CC: Dr. Gabriel Howard DO; Dr. Estrella Ramos DO; Dr. Connie Lugo MD Signed Normal [facility] Absolute lymphocyte countOrd ered By: Gabriel Howard on 01-31-2024 Lymphocytes Auto (Unsp spec) [#/Vol] 0.39 10*3/uL 0.83-4.51 [facility] Activated partial thrombopla stin time (aPTT) in platelet poor plasma by coagulation aOrdered By: Gabriel Howard on 01-31-2024 aPTT Coag (PPP) [Time] 32.8 s 24.1-36.2 [facility] Automated lymphocyte count a s percentage of total leukocytesOrdered By: Gabriel Howard on 01-31-2024 Lymphocytes/100 WBC Auto (Unsp spec) 30.7 % 19-41 [facility] Basophil percentageOrdered B y: Gabriel Howard on 01-31-2024 Lactate [Moles/Vol] 1.0 mmol/L 0.4-2.0 [facility] Basophil percentage 0 SEEN /hpf 0-5 [facility] Basophils/100 WBC (Bld) 1.6 % 0-1 [facility] Bilirubin [Mass/Vol] 0.80 mg/dL 0.20-1.00 [facility] Comment on above: For patients on eltr ombopag therapy, use of Dimension [place] TBIL is not recommended. Chloride [Moles/Vol] 109 mmol/L 98-107 [facility] Eosinophils/100 WBC (Bld) 3.9 % 0-5 [facility] Glucose [Mass/Vol] 199 mg/dL 74-106 [facility] Comment on above: Fasting Glucose resu lt greater than or equal to 126 mg/dL suggests DIABETES MELLITUS per A.D.A. criteria. Hemoglobin (Bld) [Mass/Vol] 12.4 g/dL 13.0-16.5 [facility] Lactate [Moles/Vol] 2.2 mmol/L 0.4-2.0 [facility] Comment on above: Critical Result(s) C alled at: 19:33:44 01/31/2024 by: Dasha Aguilera to [facility]. Results read back by [facility]. Monocytes/100 WBC (Bld) 15.7 % 0-10 [facility] Neutrophils (Bld) [#/Vol] 0.6 10*3/uL 2.0-7.7 [facility] Neutrophils/100 WBC (Bld) 47.3 % 47-70 [facility] Potassium [Moles/Vol] 3.5 mmol/L 3.5-5.1 [facility] Protein [Mass/Vol] 6.7 g/dL 6.4-8.2 [facility] Sodium [Moles/Vol] 138 mmol/L 136-145 [facility] WBC (Bld) [#/Vol] 1.3 10*3/uL 4.4-11.0 [facility] Comment on above: CRITICAL VALUE VERIF IED. CALLED TO [facility]01/31/241912 Hilda Rodrigez.RESULTS READ BACK BY SAME . Bedside Glucoseon 01-31-2024 FINGERSTICK GLU 153 mg/dL High 74-106 [facility] Comment on above: Result Comment: PEGGY PARKINSON OF PATIENT CARE PER NURSING PROTOCOL Performed By: #### L 503.6005 #### [facility] [address] [place], [address] FINGERSTICK GLU 78 mg/dL Normal 74-106 [facility] Comment on above: Result Comment: PEGGY PARKINSON OF PATIENT CARE PER NURSING PROTOCOL Performed By: #### L 501.5200, L500.4050, L501.2300, L100.0100 #### [facility] [address] [place], [address] Bilirubin Test strip Ql (U)O rdered By: Gabriel Howard on 01-31-2024 Bilirubin Ql (U) Negative Negative [facility] Blood manual differential co mment interpretation (narrative result)Ordered By: Gabriel Howard on 01-31-2024 Manual differential comment Joey (Bld) [Interp] SCANNED [facility] Comment on above: NEUTROPENIA NOTEDLYM PHOPENIA NOTEDLEUKOCYTOPENIA NOTED Brain/Head without Contrasto n 01-31-2024 Brain/Head without Contrast [facility] Services [address] [place] [address] Brain/Head without Contrast MR#: [id number] Acct: [id number] Name: OSEAS JOSEPH Rep #: [id number] : 1950 M 73 From: Jair Samuels PCP: Dr. Connie Lugo MD Status: REG ER Study: Brain/Head without Contrast Date of Exam: 01/21 Exam# [id number] Ordering Dr: Gabriel Howard DO [id number] INDICATION: Mental status change EXAMINATION: CT BRAIN - CT Head or Brain W/O Contrast Injection TECHNIQUE: Multiple axial images were obtained of the head without intravenous contrast. A radiation dose optimization technique was used for this scan. IV Contrast dosage and agent: None. RADIATION DOSAGE (If Supplied By Facility): CTDIvol = ( 44.99 ) mGy, DLP = ( 1277.26 ) mGycm COMPARISON: No relevant prior examinations for comparison FINDINGS: HEMISPHERES: 1. The cerebral parenchyma, ventricular system, subarachnoid spaces have normal configuration and density. There is a normal gyral pattern. There is normal padilla/white differentiation. No midline shift.. 2. Diffuse involutional change and chronic microvascular deep white matter disease. No intraparenchymal mass, hemorrhage, or acute territorial infarct. CEREBELLUM - BRAINSTEM: The cerebellum, brainstem, basilar and suprasellar cisterns have normal appearance. No Chiari malformation. PITUITARY: Infundibulum and pituitary have normal configuration. Midline structures appear normal. CSF SPACES: Appropriate for age. No hydrocephalus. Basal cisterns are patent. VESSELS: 1. No significant vascular calcifications in the cavernous carotid vessels. 2. No hyperdense vascular signs noted.. ORBITS AND PARANASAL SINUSES: 1. Normal appearance of the bony orbits. Normal appearance of the globes and retrobulbar soft tissues.. 2. Bilateral maxillary sinus disease greater on the RIGHT than LEFT. Ethmoid sinus disease is present. BONY ELEMENTS: Bony elements of the cranial vault, facial skeleton and skull base have normal appearance. SCALP AND SOFT TISSUES: Normal appearance of the soft tissues of the scalp and the visualized face OTHER: None ASPECTS Score for Acute Strokes: 10 CT/Brain/Head without Contrast IMPRESSION: 1. Diffuse involutional change and mild chronic microvascular deep white matter disease. 2. No intracranial mass, hemorrhage or acute territorial infarct. 3. Bilateral maxillary and ethmoid sinus disease. Electronically Signed: Jair Stone MD at 19:30 EDT , CC: Dr. Gabriel Howard, DO; Dr. Connie Lugo MD Bdr: Signed Normal [facility] Chest 1 View (Portable)on Chest 1 View (Portable) [facility] [address] [place] [address] Chest 1 View (Portable) MR#: [id number] Acct: [id number] Name: OSEAS JOSEPH Rep #: [id number] : 1950 M 73 From: Jair Samuels PCP: Dr. Connie Lugo MD Status: [facility] ER Study: Chest 1 View (Portable) Date of Exam: 01/31/24 Exam# [id number] Ordering Dr: Gabriel Howard DO [id number] INDICATION: Cough EXAMINATION/TECHNIQUE: X-RAY - XR Chest 1 View COMPARISON: 11/27/2023 FINDINGS: LIFE-SUPPORT AND LINES: 1. None HEART AND VESSELS: The cardiac silhouette, pulmonary vasculature have normal appearance. No evidence of congestive failure. LUNGS AND PLEURAL SPACES: Lungs are clear. No focal infiltrate, consolidation or effusions. No evidence of pneumothorax. No pulmonary mass is noted. MEDIASTINUM AND HILAR REGIONS: No masses adenopathy noted. No areas of calcification. Visualized upper airway is normal in position. BONY ELEMENTS: No acute bony changes noted. RAD/Chest 1 View (Portable) IMPRESSION: 1. No evidence of acute cardiopulmonary process Electronically Signed: Jair Stone MD at 21:36 EDT , CC: Dr. Gabriel Howard DO; Dr. Connie Lugo MD Bdr: Signed Normal [facility] Comprehensive Metabolic Prof ilon 01-31-2024 Albumin [Mass/Vol] 3.0 g/dL Low 3.2-5.0 [facility] Comment on above: Order Comment: 'TROP ' Serial specimen #1, #2 or #3: 1 Performed By: #### L 501.2800, L500.4050, L501.2300, L100.0100 #### [facility] [address] [place], [address] Albumin/Globulin [Mass ratio] 0.8 {ratio} Low 0.9-2.4 [facility] Comment on above: Order Comment: 'TROP ' Serial specimen #1, #2 or #3: 1 Performed By: #### L 501.5200, L500.4050, L501.2300, L100.0100 #### [facility] [address] [place], [address] ALK P 46 U/L Normal 45-117 [facility] Comment on above: Order Comment: 'TROP ' Serial specimen #1, #2 or #3: 1 Performed By: #### L 501.5200, L500.4050, L501.2300, L100.0100 #### [facility] [address] [place], [address] ALT [Catalytic activity/Vol] 25 U/L Normal 16-61 [facility] Comment on above: Order Comment: 'TROP ' Serial specimen #1, #2 or #3: 1 Performed By: #### L 501.5200, L500.4050, L501.2300, L100.0100 #### [facility] [address] [place], [address] AST [Catalytic activity/Vol] 17 U/L Normal 15-37 [facility] Comment on above: Order Comment: 'TROP ' Serial specimen #1, #2 or #3: 1 Performed By: #### L 501.5200, L500.4050, L501.2300, L100.0100 #### [facility] [address] [place], [address] Bilirubin [Mass/Vol] 0.80 mg/dL Normal 0.20-1.00 [facility] Comment on above: Order Comment: 'TROP ' Serial specimen #1, #2 or #3: 1 Result Comment: For patients on eltrombopag therapy, use of Dimension [place] TBIL is not recommended. Performed By: #### L 501.5200, L500.4050, L501.2300, L100.0100 #### [facility] [address] [place], [address] BUN/CRE 13.4 RATIO Normal 10-20 [facility] Comment on above: Order Comment: 'TROP ' Serial specimen #1, #2 or #3: 1 Performed By: #### L 501.5200, L500.4050, L501.2300, L100.0100 #### [facility] [address] [place], [address] CA,Total 8.3 mg/dL Low 8.5-10.1 [facility] Comment on above: Order Comment: 'TROP ' Serial specimen #1, #2 or #3: 1 Performed By: #### L 501.5200, L500.4050, L501.2300, L100.0100 #### [facility] [address] [place], [address] Chloride [Moles/Vol] 109 mmol/L High 98-107 [facility] Comment on above: Order Comment: 'TROP ' Serial specimen #1, #2 or #3: 1 Performed By: #### L 501.5200, L500.4050, L501.2300, L100.0100 #### [facility] [address] [place], [address] CO2 [Moles/Vol] 24.0 mmol/L Normal 21.0-32.0 [facility] Comment on above: Order Comment: 'TROP ' Serial specimen #1, #2 or #3: 1 Performed By: #### L 501.5200, L500.4050, L501.2300, L100.0100 #### [facility] [address] [place], [address] Creatinine [Mass/Vol] 1.27 mg/dL Normal 0.70-1.30 [facility] Comment on above: Order Comment: 'TROP ' Serial specimen #1, #2 or #3: 1 Result Comment: The validity of the calculated GFR GFRAA in patients over 70 years has not been determined. Clinical correlation is essential. Performed By: #### L 501.5200, L500.4050, L501.2300, L100.0100 #### [facility] [address] [place], [address] ECRCL 60.29 ml/min Normal [facility] Comment on above: Order Comment: 'TROP ' Serial specimen #1, #2 or #3: 1 Performed By: #### L 501.5200, L500.4050, L501.2300, L100.0100 #### [facility] [address] [place], [address] EST GFR - AA 72 mL/min Normal >60 [facility] Comment on above: Order Comment: 'TROP ' Serial specimen #1, #2 or #3: 1 Result Comment: Afri can Greek GFR Calc Performed By: #### L 501.5200, L500.4050, L501.2300, L100.0100 #### [facility] [address] [place], [address] GAP 5 Normal 5-15 [facility] Comment on above: Order Comment: 'TROP ' Serial specimen #1, #2 or #3: 1 Performed By: #### L 501.5200, L500.4050, L501.2300, L100.0100 #### [facility] [address] [place], [address] GFR/1.73 sq M.predicted among non-blacks MDRD (S/P/Bld) [Vol rate/Area] 59 mL/min/{1.73_m2} Low >60 [facility] Comment on above: Order Comment: 'TROP ' Serial specimen #1, #2 or #3: 1 Result Comment: Non- GFR Calc Performed By: #### L 501.5200, L500.4050, L501.2300, L100.0100 #### [facility] [address] [place], [address] Globulin (S) [Mass/Vol] 3.7 g/dL Normal 2.2-4.2 [facility] Comment on above: Order Comment: 'TROP ' Serial specimen #1, #2 or #3: 1 Performed By: #### L 501.5200, L500.4050, L501.2300, L100.0100 #### [facility] [address] [place], [address] Glucose [Mass/Vol] 199 mg/dL High 74-106 [facility] Comment on above: Order Comment: 'TROP ' Serial specimen #1, #2 or #3: 1 Result Comment: Fast ing Glucose result greater than or equal to 126 mg/dL suggests DIABETES MELLITUS per A.D.A. criteria. Performed By: #### L 501.5200, L500.4050, L501.2300, L100.0100 #### [facility] [address] [place], [address] Potassium [Moles/Vol] 3.5 mmol/L Normal 3.5-5.1 [facility] Comment on above: Order Comment: 'TROP ' Serial specimen #1, #2 or #3: 1 Performed By: #### L 501.5200, L500.4050, L501.2300, L100.0100 #### [facility] [address] [place], [address] Sodium [Moles/Vol] 138 mmol/L Normal 136-145 [facility] Comment on above: Order Comment: 'TROP ' Serial specimen #1, #2 or #3: 1 Performed By: #### L 501.5200, L500.4050, L501.2300, L100.0100 #### [facility] [address] [place], [address] T PROT 6.7 g/dL Normal 6.4-8.2 [facility] Comment on above: Order Comment: 'TROP ' Serial specimen #1, #2 or #3: 1 Performed By: #### L 501.5200, L500.4050, L501.2300, L100.0100 #### [facility] [address] [place], [address] Urea nitrogen [Mass/Vol] 17 mg/dL Normal 7-18 [facility] Comment on above: Order Comment: 'TROP ' Serial specimen #1, #2 or #3: 1 Performed By: #### L 501.5200, L500.4050, L501.2300, L100.0100 #### [facility] [address] [place], [address] Culture, urineOrdered By: Lino Howard on 01-31-2024 Bacteria identified Cx Nom (U) Culture exhibits no growth. [facility] Determination of erythrocyte mean corpuscular volume (MCV)Ordered By: Gabriel Howard on 01-31-2024 MCV (RBC) [Entitic vol] 89.5 fL 80-94 [facility] Emergency Department Summary on 01-31-2024 Emergency Department Summary [facility] Medical Records Department [address] [facility] [place] [address] Emergency Department Summary 01/31/24 MR#: [id number] Acct: [id number] Name: OSEAS JOSEPH Rep #: [id number] : 1950 73 From: Gabriel Howard DO PCP: Dr. Connie Lugo MD Status:ADM IN Location: [place] [address] HPI History of Present Illness Chief Complaint: Confusion Informant: patient and spouse/S.O. Onset/Context/Timing Onset: Days Context: Gradual Onset Timing: Continuous Quality: Confusion Location: Generalized Worsened by: Nothing Relieved by: Nothing Narrative Narrative: Patient presents with confusion that became worse today. Patient was seen here recently for confusion and was diagnosed with hypoglycemia. Patient's confusion improved after receiving glucose. Patient followed up with his primary care physician today who noted that the patient was still more confused. states patient has been percent dilute confused for the past couple days. states that waxes and wanes. states nothing makes it better nothing makes it worse. also reports that the patient had an episode of influenza A approximately 1 month ago. [facility] Medical History (Updated 01/31/24 @ 21:[address] Gabriel Howard DO) Diabetes mellitus High cholesterol History of echocardiogram History of skin cancer HTN (hypertension) Hypokalemia Multiple myeloma Non-smoker Open wound RBBB Restless legs Wears glasses Home Medications amlodipine 5 mg tablet 5 mg PO DAILY blood pressure 02/09/21 [History Last Taken 01/16/23] atorvastatin 10 mg tablet 10 mg PO DAILY cholesterol 02/09/21 [History Last Taken 01/16/23] losartan 50 mg tablet 50 mg PO DAILY BP 04/19/22 [History Last Taken 01/16/23] clonazepam 0.5 mg tablet 0.5 mg PO QHS anxiety 09/16/22 [History Last Taken 01/15/23] Velade See Rx Instructions .Route .COMPLEX CHEMO 01/16/23 [History Last Taken 01/11/23] acyclovir 400 mg tablet 400 mg PO BID anti viral 01/16/23 [History Last Taken 01/16/23 07:00] glimepiride 4 mg tablet 4 mg PO BID 01/27/24 [History Last Taken Unknown] lenalidomide 10 mg capsule (Revlimid) 10 mg PO DAILY 01/27/24 [History Last Taken Unknown] rivaroxaban 20 mg tablet (Xarelto) 20 mg PO QPM 01/27/24 [History Last Taken Unknown] Allergy/AdvReac Type Severity Reaction Status Date / Time No Known Allergies Allergy Verified 01/31/24 17:28 Family History Other Diabetes Hypertension Surgical History (Updated 01/31/24 @ 21:[address] Gabriel Howard DO) History of wisdom tooth extraction Hx of hernia repair ( 1964) Hx of stem cell transplant Social History Smoking Status: Never smoker alcohol intake: current alcohol intake frequency: a few times a week Alcohol type: beer substance use type: does not use ROS ROS ED Constitutional Constitutional ED: Reports fever(s); Denies chills Eyes Eyes: Denies blurry vision or change in vision ENT ENT ED: Reports rhinorrhea; Denies sore throat Cardiovascular Cardiovascular: Denies chest pain or palpitations Respiratory/Chest Respiratory/Chest: Reports cough and dyspnea Gastrointestinal Gastrointestinal: Denies nausea or vomiting Genitourinary Genitourinary ED: Denies dysuria or hematuria Musculoskeletal Musculoskeletal: Denies back pain or neck pain Integumentary Denies abscess or rash Neurologic Neurologic: Denies headache(s) or weakness Allergic/Immunologic Allergic/Immunologic ED: Denies mouth swelling or urticaria EXAM Physical Exam Const Vital Signs: 01/31/24 17:26 01/31/24 17:28 01/31/24 19:00 Temperature 96.9 F L 96.9 F L 99.5 F H Temperature Source Temporal Temporal Oral Pulse Rate 58 L 59 L 62 Respiratory Rate 18 18 14 Blood Pressure 140/77 H 138/66 H 129/58 H Blood Pressure Mean 98 90 81 Pulse Ox 100 100 99 Oxygen Delivery Method Room Air Room Air Room Air 01/31/24 20:00 01/31/24 21:00 Temperature 97.8 F 97.8 F Temperature Source Temporal Temporal Pulse Rate 89 78 Respiratory Rate 16 16 Blood Pressure 150/57 H 147/78 H Blood Pressure Mean 88 101 Pulse Ox 99 98 Oxygen Delivery Method Room Air Room Air Positive well nourished and well developed General Appearance ED: well developed and NAD HEENT Reports moist mucous membranes Neck supple and no JVD Resp normal respiratory effort and clear to auscultation bilaterally Cardio regular rate and regular rhythm GI non-tender and non-distended Palpation: soft Neuro CN's II-XII intact bilaterally and no sensory deficits noted Neuro Narrative: Patient does answer questions appropriately. Sensorium / Orientation: alert Motor Exam: strength 5/5 throughout MDM MDM MDM Narra (more content not included)... Normal [facility] Erythrocyte distribution wid th ratioOrdered By: Gabriel Howard on 01-31-2024 Erythrocyte distribution width (RBC) [Ratio] 14.0 % 11.6-14.6 [facility] Erythrocyte distribution wid th standard deviationOrdered By: Gabriel Howard on 01-31-2024 Erythrocyte distribution width (RBC) [Entitic vol] 45.5 fL 35.1-43.9 [facility] H AND P Exam - [place] 01-31-2024 H&P Exam - Hospitalist [facility] Medical Records Department [address] [place] [address] H P Exam - Hospitalist 01/31/242221 MR#: [id number] Acct: [id number] Name: OSEAS JOSEPH Rep #: [id number] : 1950 73 From: Eunice Corbett DO PCP: Dr. Connie Lugo MD Status:ADM IN Location: [place] [address]1 HPI - General General Date of Admission: 01/31/24 Date of Service: 01/31/24 Chief Complaint: Confusion and Low-grade Fever. HPI Narrative OSEAS JOSEPH, is a 73 M with a past medical history of essential hypertension, hyperlipidemia, DM-2; of unknown control on Glimepiride, history of X; on Xarelto, history of multiple myeloma; s/p stem-cell transplant and on Revlimid (that is likely causing pancytopenia), history of skin cancer, RLS, history of RBBB, OA and recent influenza A infection about 1 month ago with several family members becoming ill and passing it back and forth to one another who presents to [facility] ER complaining of confusion and low-grade fever. Mr. Joseph is not a fully reliable [facility] at this time so information was gathered from chart, medical staff and computer plus his and daughter at the bedside. According to the records his symptoms began approximately 2 days prior to admission with the patient notably becoming more confused and a lglqog-azb-yzxclt pattern. He was actually seen in this ER yesterday for confusion and was diagnosed with hypoglycemia that improv ed after administration of glucose and increased oral intake so he was then discharged home. Unfort unately, his confusion became worse earlier today in spite of a normal glucose so his brought h im back in for further evaluation and treatment. They also report increasing hiccups for the past 2 to 3 days that have disrupted his sleep and they also seem to have exacerbated his confusion. In [facility] ER he was noted to have a white blood cell count of 1.3 along with an elevated temperature of 99. 3 ???F consistent with suspected neutropenic fever complicated by viral assay returning positive for i nfluenza A compounded by clinical evidence of metabolic encephalopathy with his oncologist recommend ing empiric IV Zosyn and admission to PCU for stay that is expected to be greater than 48 hours. [facility] Medical History Diabetes mellitus High cholesterol History of echocardiogram History of skin cancer HTN (hypertension) Hypokalemia Multiple myeloma Non-smoker Open wound RBBB Restless legs Wears glasses Home Medications amlodipine 5 mg tablet 5 mg PO DAILY blood pressure 02/09/21 [History Last Taken 01/16/23] atorvastatin 10 mg tablet 10 mg PO DAILY cholesterol 02/09/21 [History Last Taken 01/16/23] losartan 50 mg tablet 50 mg PO DAILY BP 04/19/22 [History Last Taken 01/16/23] clonazepam 0.5 mg tablet 0.5 mg PO QHS anxiety 09/16/22 [History Last Taken 01/15/23] Velade See Rx Instructions .Route .COMPLEX CHEMO 01/16/23 [History Last Taken 01/11/23] acyclovir 400 mg tablet 400 mg PO BID anti viral 01/16/23 [History Last Taken 01/16/23 07:00] glimepiride 4 mg tablet 4 mg PO BID 01/27/24 [History Last Taken Unknown] lenalidomide 10 mg capsule (Revlimid) 10 mg PO DAILY 01/27/24 [History Last Taken Unknown] rivaroxaban 20 mg tablet (Xarelto) 20 mg PO QPM 01/27/24 [History Last Taken Unknown] Allergy/AdvReac Type Severity Reaction Status Date / Time No Known Allergies Allergy Verified 01/31/24 17:28 Family History Other Diabetes Hypertension Surgical History History of wisdom tooth extraction Hx of hernia repair ( 1964) Hx of stem cell transplant Social History Smoking Status: Never smoker alcohol intake: current alcohol intake frequency: a few times a week Alcohol type: beer substance use type: does not use ROS ROS Narrative Patient is febrile and confused and therefore cannot complete a full review of systems at this time. Review of Systems ROS Unobtainable: due to encephalopathy Vital Signs Vital Signs Vital Signs: 01/31/24 17:26 01/31/24 17:28 01/31/24 19:00 Temperature 96.9 F L 96.9 F L 99.5 F H Temperature Source Temporal Temporal Oral Pulse Rate 58 L 59 L 62 Respiratory Rate 18 18 14 Blood Pressure 140/77 H 138/66 H 129/58 H Blood Pressure Mean 98 90 81 Pulse Ox 100 100 99 Oxygen Delivery Method Room Air Room Air Room Air 01/31/24 20:00 01/31/24 21:00 01/31/24 22:00 Temperature 97.8 F 97.8 F 99.3 F H Temperature Source Temporal Temporal Oral Pulse Rate 89 78 62 Respiratory Rate 16 16 18 Blood Pressure 150/57 H 147/78 H 141/59 H Blood Pressure Mean 88 101 86 (more content not included)... Normal [facility] Hematocrit Auto (Bld) [Volum e fraction]Ordered By: Gabriel Howard on 01-31-2024 Hematocrit (Bld) [Volume fraction] 36.7 % 40-54 [facility] Immature granulocytes/100 WB C Auto (Bld)Ordered By: Gabriel Howard on 01-31-2024 Immature granulocytes/100 WBC (Bld) 0.800 % 0.0-0.9 [facility] Comment on above: IG% - Immature Granu locytes (promyelocytes, myelocytes and metamyelocytes) > 1% indicates that a LEFT SHIFT is Present. Ketones Test strip Ql (U)Ord ered By: Gabriel Howard on 01-31-2024 Ketones Ql (U) 5 mg/dl Negative [facility] L501.4020on 01-31-2024 TROPONIN-I HS 17 pg/mL Normal 3.0-78.0 [facility] Comment on above: Order Comment: 'TROP ' Serial specimen #1, #2 or #3: 1 Result Comment: Plea se Note: New Test Units and Gender Specific Reference Ranges. For more information see Policy Stat Procedure [place] High Sensitivity Troponin (TNIH) and attachments. Performed By: #### L 501.5200, L500.4050, L501.2300, L100.0100 #### [facility] [address] [place], [place], [id number] Laboratory - Chemistry and C hemistry - challengeOrdered By: Gabriel Howard on 01-31-2024 Albumin/Globulin [Mass ratio] 0.8 {ratio} 0.9-2.4 [facility] ALP [Catalytic activity/Vol] 46 U/L 45-117 [facility] ALT [Catalytic activity/Vol] 25 U/L 16-61 [facility] CO2 [Moles/Vol] 24.0 mmol/L 21.0-32.0 [facility] Globulin (S) [Mass/Vol] 3.7 g/dL 2.2-4.2 [facility] Urea nitrogen/Creatinine [Mass ratio] 13.4 mg/mg 10-20 [facility] - CoagulationOrde red By: Gabriel Howard on 01-31-2024 INR Coag (Bld) [Relative time] 2.3 {INR} [facility] PT Coag (PPP) [Time] 25.0 s 11.7-14.9 [facility] - Hematology and Cell countsOrdered By: Gabriel Howard on 01-31-2024 MCH (RBC) [Entitic mass] 30.2 pg 27.0-32.0 [facility] MCHC (RBC) [Mass/Vol] 33.8 g/dL 32-36 [facility] Nucleated RBC/100 WBC (Bld) [Ratio] 0 % 0-5 [facility] Platelet mean volume (Bld) [Entitic vol] 11.3 fL 6.2-12.0 [facility] Platelets (Bld) [#/Vol] 126 10*3/uL 150-450 [facility] - Microbiology an d Antimicrobial susceptibilityOrdered By: Gabriel Howard on 01-31-2024 SARS-CoV-2 (COVID-19) RNA KEVIN+probe Ql (Unsp spec) Influenzae A [facility] Lactic Acidon 01-31-2024 Lactate [Moles/Vol] 2.2 mmol/L Invalid Interpretation Code 0.4-1.9 [facility] Comment on above: Order Comment: Y Result Comment: Crit ical Result(s) Called at: 19:33:44 01/31/2024 by: Dasha Galindo. Results read back by same. Performed By: #### L 501.5200, L500.4050, L501.2300, L100.0100 #### [facility] [address] [place], [place], [id number] [phone] M100.678on 01-31-2024 M100.678 SENT TO [facility] AT 1917PM SARS-CoV-2 (COVID 19) Negative INFLUENZA A Positive A INFLUENZA A Positive A RSV PCR Negative FLUA Normal [facility] Comment on above: Performed By: #### L 501.5200, L500.4050, L501.2300, L100.0100 #### [facility] [address] [place], [place], [id number] Mucus LM Ql (Urine sed)Order ed By: Gabriel Howard on 01-31-2024 Mucus Ql (Urine sed) 1+ /hpf [facility] Nitrite Test strip Ql (U)Ord ered By: Gabriel Howard on 01-31-2024 Nitrite Ql (U) Negative Negative [facility] No Panel InformationOrdered By: Gabriel Howard on 01-31-2024 Urine RBC 0-5 SEEN /hpf 0-5 [facility] Estimated Creatinine Clearance Calc 60.29 ml/min [facility] Estimated GFR (MDRD) Amer 72 mL/min >60 [facility] Comment on above: GFR Calc Estimated GFR (MDRD) Non-Af Amer 59 mL/min >60 [facility] Comment on above: Non- GFR Calc Troponin I High Sensitivity 17 pg/mL 3.0-78.0 [facility] Comment on above: Please Note: New Dee t Units and Gender Specific Reference Ranges. For more information see Policy Stat Procedure [place] High Sensitivity Troponin (TNIH) and attachments. No Panel InformationOrdered By: Eunice Asencio on 01-31-2024 Folate 19.60 ng/mL 3.1-55.4 [facility] Partial Thromboplast Timeon 01-31-2024 aPTT Coag (Bld) [Time] 32.8 s Normal 24.1-36.2 [facility] Comment on above: Performed By: #### L 501.5200, L500.4050, L501.2300, L100.0100 #### [facility] [address] [place], [address] Protein Test strip Ql (U)Ord ered By: Gabriel Howard on 01-31-2024 Protein Ql (U) 100 mg/dl Negative [facility] Prothrombin Time w/INRon INR Coag (PPP) [Relative time] 2.3 {INR} Normal [facility] Comment on above: Performed By: #### L 501.5200, L500.4050, L501.2300, L100.0100 #### [facility] [address] [place], [address] PT Coag (PPP) [Time] 25.0 s High 11.7-14.9 [facility] Comment on above: Performed By: #### L 501.5200, L500.4050, L501.2300, L100.0100 #### [facility] [address] [place], [address] RBC Auto (Bld) [#/Vol]Ordere d By: Gabriel Howard on 01-31-2024 RBC (Bld) [#/Vol] 4.10 10*6/uL 4.6-6.2 [facility] Review by pathologistOrdered By: Gabriel Howard on 01-31-2024 Pathologist review Joey (Unsp spec) [Interp] February [facility] Serum or plasma calcium matt urement (mass/volume)Ordered By: Gabriel Howard on 01-31-2024 Calcium [Mass/Vol] 8.3 mg/dL 8.5-10.1 [facility] Serum or plasma creatinine m easurement (mass/volume)Ordered By: Gabriel Howard on 01-31-2024 Creatinine [Mass/Vol] 1.27 mg/dL 0.70-1.30 [facility] Comment on above: The validity of the calculated GFR & GFRAA in patients over 70 years has not been determined. Clinical correlation is essential. Serum or plasma urea nitroge n measurement (mass/volume)Ordered By: Gabriel Howard on 01-31-2024 Urea nitrogen [Mass/Vol] 17 mg/dL 7-18 [facility] Squamous epithelial cells de tection in urine sediment by light microscopyOrdered By: Gabriel Howard on 01-31-2024 Epithelial cells.squamous LM Ql (Urine sed) 0 SEEN /hpf 0-5 [facility] Thin prep Papanicolaou smear with manual screeningOrdered By: Gabriel Howard on 01-31-2024 Thin prep Papanicolaou smear with manual screening 153 mg/dL 74-106 [facility] Comment on above: MANAGEMENT OF PATIEN T CARE PER NURSING PROTOCOL Thin prep Papanicolaou smear with manual screening 3.0 g/dL 3.2-5.0 [facility] Thin prep Papanicolaou smear with manual screening 17 U/L 15-37 [facility] Thin prep Papanicolaou smear with manual screening 5 5-15 [facility] Urinalysis, Completeon 01-30 RBC 0-5 SEEN Normal 0-5 [facility] Comment on above: Order Comment: VONNIE CTOR TO SPECIFY Performed By: #### L 501.5200, L500.4050, L501.2300, L100.0100 #### [facility] [address] [place], [address] BACTERIA RARE Normal None Seen [facility] Comment on above: Order Comment: VONNIE CTOR TO SPECIFY Performed By: #### L 501.5200, L500.4050, L501.2300, L100.0100 #### [facility] [address] [place], [address] Mucus Ql (Urine sed) 1+ /hpf Normal [facility] Comment on above: Order Comment: VONNIE CTOR TO SPECIFY Performed By: #### L 501.5200, L500.4050, L501.2300, L100.0100 #### [facility] [address] [place], [address] EPI,SQUAMOUS 0 SEEN Normal 0-5 [facility] Comment on above: Order Comment: VONNIE CTOR TO SPECIFY Performed By: #### L 501.5200, L500.4050, L501.2300, L100.0100 #### [facility] [address] [place], [address] WBC 0 SEEN Normal 0-5 [facility] Comment on above: Order Comment: COLLE CTOR TO SPECIFY Performed By: #### L 501.5200, L500.4050, L501.2300, L100.0100 #### [facility] [address] [place], [address] Urine Drug Screen (VISTA)on 01-31-2024 AMPHETAMINES Normal <1000 ng/mL [facility] Comment on above: Order Comment: U Result Comment: NO Y ELLOW TOP FOUND IN LAB TO DO TEST, SPECIMEN NEEDED Performed By: #### L 501.5200, L500.4050, L501.2300, L100.0100 #### [facility] [address] [place], [address] BARBITIURATES Normal < 200 ng/mL [facility] Comment on above: Order Comment: U Result Comment: NO Y ELLOW TOP FOUND IN LAB TO DO TEST, SPECIMEN NEEDED Performed By: #### L 501.5200, L500.4050, L501.2300, L100.0100 #### [facility] [address] [place], [address] BENZODIAZIPINE Normal < 200 ng/mL [facility] Comment on above: Order Comment: U Result Comment: NO Y ELLOW TOP FOUND IN LAB TO DO TEST, SPECIMEN NEEDED Performed By: #### L 501.5200, L500.4050, L501.2300, L100.0100 #### [facility] [address] [place], [address] COCAINE Normal < 300 ng/mL [facility] Comment on above: Order Comment: U Result Comment: NO Y ELLOW TOP FOUND IN LAB TO DO TEST, SPECIMEN NEEDED Performed By: #### L 501.5200, L500.4050, L501.2300, L100.0100 #### [facility] [address] [place], [address] ECSTACY Normal < 500 ng/mL [facility] Comment on above: Order Comment: U Result Comment: NO Y ELLOW TOP FOUND IN LAB TO DO TEST, SPECIMEN NEEDED Performed By: #### L 501.5200, L500.4050, L501.2300, L100.0100 #### [facility] [address] [place], [address] METHADONE Normal < 300 ng/mL [facility] Comment on above: Order Comment: U Result Comment: NO Y ELLOW TOP FOUND IN LAB TO DO TEST, SPECIMEN NEEDED Performed By: #### L 501.5200, L500.4050, L501.2300, L100.0100 #### [facility] [address] [place], [address] OPIATES Normal < 300 ng/mL [facility] Comment on above: Order Comment: U Result Comment: NO Y ELLOW TOP FOUND IN LAB TO DO TEST, SPECIMEN NEEDED Performed By: #### L 501.5200, L500.4050, L501.2300, L100.0100 #### [facility] [address] [place], [address] PCP Normal < 25 ng/mL [facility] Comment on above: Order Comment: U Result Comment: NO Y ELLOW TOP FOUND IN LAB TO DO TEST, SPECIMEN NEEDED Performed By: #### L 501.5200, L500.4050, L501.2300, L100.0100 #### [facility] [address] [place], [address] THC Normal < 50 ng/mL [facility] Comment on above: Order Comment: U Result Comment: NO Y ELLOW TOP FOUND IN LAB TO DO TEST, SPECIMEN NEEDED Performed By: #### L 501.5200, L500.4050, L501.2300, L100.0100 #### [facility] [address] [place], [address] VISTA UDS PH Normal [facility] Comment on above: Order Comment: U Result Comment: NO Y BLAS MARTINEZ FOUND IN LAB TO DO TEST, SPECIMEN NEEDED Performed By: #### L 501.5200, L500.4050, L501.2300, L100.0100 #### [facility] [address] [place], [place], [id number] Urine blood detectionOrdered By: Gabriel Howard on 01-31-2024 RBC Ql (U) 25 /ul Negative [facility] Urine clarityOrdered By: Munira Howard on 01-31-2024 Clarity (U) Clear Clear [facility] Urine color determinationOrd ered By: Gabriel Howard on 01-31-2024 Color (U) Yellow Yellow [facility] Urine glucose detectionOrder ed By: Gabriel Howard on 01-31-2024 Glucose Ql (U) 250 mg/dl Normal [facility] Urine leukocyte esterase det ection by dipstickOrdered By: Gabriel Howard on 01-31-2024 Leukocyte esterase Test strip Ql (U) Negative Negative [facility] Urine pHOrdered By: Gabriel rosenthal on 01-31-2024 pH (U) 6.0 [pH] 5.0 - 8.0 [facility] Urine sediment bacteria coun t by microscopy (number/high power field)Ordered By: Gabriel Howard on 01-31-2024 Bacteria LM.HPF (Urine sed) [#/Area] RARE /hpf None Seen [facility] Urine specific gravity measu rementOrdered By: Gabriel Howard on 01-31-2024 Specific gravity (U) [Rel density] 1.015 1.002-1.030 [facility] Urine urobilinogen measureme ntOrdered By: Gabriel Howard on 01-31-2024 Urobilinogen Ql (U) Normal mg/dl Normal [facility] Basic Metabolic Profile (BMP )on 01-27-2024 BUN/CRE 17.0 RATIO Normal 10-20 [facility] Comment on above: Performed By: #### L 501.080 #### [facility] [address] [place], [address] CA,Total 7.8 mg/dL Low 8.5-10.1 [facility] Comment on above: Performed By: #### L 501.080 #### [facility] [address] [place], [address] Chloride [Moles/Vol] 111 mmol/L High 98-107 [facility] Comment on above: Performed By: #### L 501.080 #### [facility] [address] [place], [address] CO2 [Moles/Vol] 23.0 mmol/L Normal 21.0-32.0 [facility] Comment on above: Performed By: #### L 501.080 #### [facility] [address] [place], [address] Creatinine [Mass/Vol] 1.41 mg/dL High 0.70-1.30 [facility] Comment on above: Result Comment: The validity of the calculated GFR GFRAA in patients over 70 years has not been determined. Clinical correlation is essential. Performed By: #### L 501.080 #### [facility] [address] [place], [address] ECRCL 54.31 ml/min Normal [facility] Comment on above: Performed By: #### L 501.080 #### [facility] [address] [place], [address] EST GFR - AA 64 mL/min Normal >60 [facility] Comment on above: Result Comment: Afri can Greek GFR Calc Performed By: #### L 501.080 #### [facility] [address] [place], [address] GAP 7 Normal 5-15 [facility] Comment on above: Performed By: #### L 501.080 #### [facility] [address] [place], [address] GFR/1.73 sq M.predicted among non-blacks MDRD (S/P/Bld) [Vol rate/Area] 53 mL/min/{1.73_m2} Low >60 [facility] Comment on above: Result Comment: Non- GFR Calc Performed By: #### L 501.080 #### [facility] [address] [place], [address] Glucose [Mass/Vol] 115 mg/dL High 74-106 [facility] Comment on above: Result Comment: Fast ing Glucose result from 100 to 125 mg/dL suggests IMPAIRED HOMEOSTASIS per A.D.A. criteria. Performed By: #### L 501.080 #### [facility] [address] [place], [address] Potassium [Moles/Vol] 3.1 mmol/L Low 3.5-5.1 [facility] Comment on above: Performed By: #### L 501.080 #### [facility] [address] [place], [address] Sodium [Moles/Vol] 141 mmol/L Normal 136-145 [facility] Comment on above: Performed By: #### L 501.080 #### [facility] [address] [place], [address] Urea nitrogen [Mass/Vol] 24 mg/dL High 7-18 [facility] Comment on above: Performed By: #### L 501.080 #### [facility] [address] [place], [address] Basophil percentageOrdered B y: Gabriel Howard on 01-27-2024 Chloride [Moles/Vol] 111 mmol/L 98-107 [facility] Glucose [Mass/Vol] 115 mg/dL 74-106 [facility] Comment on above: Fasting Glucose resu lt from 100 to 125 mg/dL suggests IMPAIRED HOMEOSTASIS per A.D.A. criteria. Potassium [Moles/Vol] 3.1 mmol/L 3.5-5.1 [facility] Sodium [Moles/Vol] 141 mmol/L 136-145 [facility] Emergency Department Summary on 01-27-2024 Emergency Department Summary [facility] Medical Records Department [address] [place] [address] Emergency Department Summary 01/27/24 MR#: [id number] Acct: [id number] Name: OSEAS JOSEPH Rep #: [id number] : 1950 73 From: Gabriel Howard DO PCP: Dr. Connie Lugo MD Status:DEP ER Location: ED HPI History of Present Illness Chief Complaint: Hypoglycemia Informant: patient and friend Onset/Context/Timing Onset: Today Context: Gradual Onset Timing: Continuous Quality: Confusion Location: Generalized Worsened by: Nothing Relieved by: Glucose Narrative Narrative: Patient presents with hypoglycemic episode that began this morning. Patient states he woke up this morning and his noted that he was confused. Patient states that his told him he was talking gibberish. told the patient to go back to bed. Patient did this. called EMS. EMS noted that the patient's blood sugar was low. EMS administered glucose and patient is feeling better. Patient has had influenza recently. Patient has a history of type 2 diabetes and multiple myeloma. Patient states his last meal was 1930 last night. [facility] Medical History Diabetes mellitus High cholesterol History of echocardiogram History of skin cancer HTN (hypertension) Hypokalemia Multiple myeloma Non-smoker Open wound RBBB Restless legs Wears glasses Home Medications amlodipine 5 mg tablet 5 mg PO DAILY blood pressure 02/09/21 [History Last Taken 01/16/23] atorvastatin 10 mg tablet 10 mg PO DAILY cholesterol 02/09/21 [History Last Taken 01/16/23] glimepiride 2 mg tablet 4 mg PO DAILY DM 04/19/22 [History Last Taken 01/16/23] losartan 50 mg tablet 50 mg PO DAILY BP 04/19/22 [History Last Taken 01/16/23] clonazepam 0.5 mg tablet 0.5 mg PO QHS anxiety 09/16/22 [History Last Taken 01/15/23] linaclotide 145 mcg capsule (Linzess) 145 mcg PO DAILY #30 caps 12/05/22 [Rx Last Taken 01/16/23] Velade See Rx Instructions .Route .COMPLEX CHEMO 01/16/23 [History Last Taken 01/11/23] acyclovir 400 mg tablet 400 mg PO BID anti viral 01/16/23 [History Last Taken 01/16/23 07:00] aspirin 81 mg tablet,delayed release 81 mg PO DAILY heart health 01/16/23 [History Last Taken 01/16/23] dexamethasone 4 mg tablet 40 mg PO WE CHEMO 01/16/23 [History Last Taken 01/11/23] apixaban 5 mg (74 tabs) tablets in a dose pack ([employer] DVT-PE Treat 30D Start) See Rx Instructions .Route .COMPLEX #74 tabs 01/17/23 [Rx Last Taken Unknown] glimepiride 4 mg tablet 4 mg PO BID 01/27/24 [History Last Taken Unknown] lenalidomide 10 mg capsule (Revlimid) 10 mg PO DAILY 01/27/24 [History Last Taken Unknown] oseltamivir 75 mg capsule 75 mg PO BID 01/27/24 [History Last Taken Unknown] rivaroxaban 20 mg tablet (Xarelto) 20 mg PO QPM 01/27/24 [History Last Taken Unknown] Allergy/AdvReac Type Severity Reaction Status Date / Time No Known Allergies Allergy Verified 01/27/24 08:58 Family History Other Diabetes Hypertension Surgical History History of wisdom tooth extraction Hx of hernia repair ( 1965) Social History Smoking Status: Never smoker alcohol intake: current alcohol intake frequency: a few times a week Alcohol type: beer substance use type: does not use ROS ROS ED Constitutional Constitutional ED: Reports chills and fever(s) Eyes Eyes: Denies blurry vision or change in vision ENT ENT ED: Denies rhinorrhea or sore throat Cardiovascular Cardiovascular: Denies chest pain or palpitations Respiratory/Chest Respiratory/Chest: Reports cough; Denies dyspnea Gastrointestinal Gastrointestinal: Denies nausea or vomiting Genitourinary Genitourinary ED: Denies dysuria or hematuria Musculoskeletal Musculoskeletal: Denies back pain or neck pain Integumentary Denies abscess or rash Neurologic Neurologic: Denies headache(s) or weakness Allergic/Immunologic Allergic/Immunologic ED: Denies mouth swelling or urticaria EXAM Physical Exam Const Vital Signs: 01/27/24 08:51 01/27/24 08:52 01/27/24 08:59 Temperature 98.2 F 98.2 F Temperature Source Oral Oral Pulse Rate 67 53 L Respiratory Rate 15 19 H Respiratory Effort Normal Non-Labored Respiratory Pattern Normal Blood Pressure 141/74 H 141/74 H Blood Pressure Mean 96 96 Pulse Ox 100 100 Oxygen Delivery Method Room Air Room Air Positive well nourished and well developed General Appearance ED: well developed and NAD HEENT Reports moist mucous membranes Neck supple and no JVD Chest Wall inspection of chest normal and palpation of chest normal Resp normal respiratory effort and clear to auscultation (more content not included)... Normal [facility] - Chemistry and C hemistry - challengeOrdered By: Gabriel Howard on 01-27-2024 CO2 [Moles/Vol] 23.0 mmol/L 21.0-32.0 [facility] Urea nitrogen/Creatinine [Mass ratio] 17.0 mg/mg 10-20 [facility] No Panel InformationOrdered By: Gabriel Howard on 01-27-2024 Estimated Creatinine Clearance Calc 54.31 ml/min [facility] Estimated GFR (MDRD) Amer 64 mL/min >60 [facility] Comment on above: GFR Calc Estimated GFR (MDRD) Non-Af Amer 53 mL/min >60 [facility] Comment on above: Non- GFR Calc Serum or plasma calcium matt urement (mass/volume)Ordered By: Gabriel Howard on 01-27-2024 Calcium [Mass/Vol] 7.8 mg/dL 8.5-10.1 [facility] Serum or plasma creatinine m easurement (mass/volume)Ordered By: Gabriel Howard on 01-27-2024 Creatinine [Mass/Vol] 1.41 mg/dL 0.70-1.30 [facility] Comment on above: The validity of the calculated GFR & GFRAA in patients over 70 years has not been determined. Clinical correlation is essential. Serum or plasma urea nitroge n measurement (mass/volume)Ordered By: Gabriel Howard on 01-27-2024 Urea nitrogen [Mass/Vol] 24 mg/dL 7-18 [facility] Thin prep Papanicolaou smear with manual screeningOrdered By: Gabriel Howard on 01-27-2024 Thin prep Papanicolaou smear with manual screening 7 5-15 [facility] Stress Reporton 12-28-2023 Stress Report [facility] [address] [place] [address] MR#: [id number] Acct: [id number] Name: OSEAS JOSEPH Rep #: [id number] : 1950 73 From: Buddy Craft MD Primary Care: Dr. Connie Lugo MD Status: REG CLI Referring Dr: Connie Lugo MD Sex: M C Stress Test Report Exercise myocardial perfusion stress test. 73-year-old man with a history of chest pain Stress protocol: Resting EKG demonstrates normal sinus rhythm with a right bundle branch block and a rate of 75 bpm resting blood pressure is 132/70 mmHg. The patient exercised according to the regular Mp protocol for a total duration of 8 minutes attaining a maximum heart rate of 134 bpm which was 89% of maximum predicted heart rate; the maximum workload was 10.1 metabolic equivalents. At rest there were no ST or T wave changes noted to suggest ischemia and at peak exercise upsloping ST changes only were noted which did not meet the criteria for ischemia. No clinical angina was noted the test was terminated due to the target heart rate being achieved/fatigue. The peak blood pressure was 190/70 mmHg. Rate-pressure product was 18,000. Myocardial perfusion protocol. 11.7 mCi of technetium 99m sestamibi was injected at rest. The patient exercised according to regular Mp protocol for total duration of 8 minutes and at peak exercise 35 mCi of technetium 99m sestamibi was injected stress images were obtained stress and rest images were reconstructed in comparing the short axis vertical long and horizontal long axis. Gated images were also obtained. Perfusion SPECT analysis: Review of the stress images demonstrate normal uptake of tracer noted in all areas of the myocardium. The resting images similarly demonstrate normal uptake of tracer noted in all areas of the myocardium. No areas of reversibility are noted to suggest ischemia no previous infarct was noted. Gated SPECT analysis: The gated ejection fraction is 63%. Conclusion: Normal exercise myocardial perfusion stress test at a high workload Preserved ejection fraction. 12/28/23 1217 Date Buddy Craft MD CC: Dr. Buddy Craft MD; Dr. Connie Lugo MD Date Dictated: 12/28/231208 Date Transcribed: 12/28/231208 Bdr: CO Signed Normal [facility] Absolute lymphocyte countOrd ered By: ED PROVIDER on 11-27-2023 Lymphocytes Auto (Unsp spec) [#/Vol] 0.89 10*3/uL 0.83-4.51 [facility] Automated lymphocyte count a s percentage of total leukocytesOrdered By: ED PROVIDER on 11-27-2023 Lymphocytes/100 WBC Auto (Unsp spec) 27.6 % 19-41 [facility] Basic Metabolic Profile (BMP )on 11-27-2023 BUN/CRE 16.5 RATIO Normal 10-20 [facility] Comment on above: Order Comment: 1Y Performed By: #### L 501.080 #### [facility] [address] [place], [address] CA,Total 8.7 mg/dL Normal 8.5-10.1 [facility] Comment on above: Order Comment: 1Y Performed By: #### L 501.080 #### [facility] [address] [place], [address] Chloride [Moles/Vol] 113 mmol/L High 98-107 [facility] Comment on above: Order Comment: 1Y Performed By: #### L 501.080 #### [facility] [address] [place], [address] CO2 [Moles/Vol] 24.0 mmol/L Normal 21.0-32.0 [facility] Comment on above: Order Comment: 1Y Performed By: #### L 501.080 #### [facility] [address] [place], [address] Creatinine [Mass/Vol] 1.09 mg/dL Normal 0.70-1.30 [facility] Comment on above: Order Comment: 1Y Result Comment: The validity of the calculated GFR GFRAA in patients over 70 years has not been determined. Clinical correlation is essential. Performed By: #### L 501.080 #### [facility] [address] [place], [address] ECRCL 68.23 ml/min Normal [facility] Comment on above: Order Comment: 1Y Performed By: #### L 501.080 #### [facility] [address] [place], [address] EST GFR - AA 86 mL/min Normal >60 [facility] Comment on above: Order Comment: 1Y Result Comment: Afri can Greek GFR Calc Performed By: #### L 501.080 #### [facility] [address] [place] [place], [address] GAP 7 Normal 5-15 [facility] Comment on above: Order Comment: 1Y Performed By: #### L 501.080 #### [facility] [address] [place], [address] GFR/1.73 sq M.predicted among non-blacks MDRD (S/P/Bld) [Vol rate/Area] 71 mL/min/{1.73_m2} Normal >60 [facility] Comment on above: Order Comment: 1Y Result Comment: Non- GFR Calc Performed By: #### L 501.080 #### [facility] [address] [place], [address] Glucose [Mass/Vol] 164 mg/dL High 74-106 [facility] Comment on above: Order Comment: 1Y Result Comment: Fast ing Glucose result greater than or equal to 126 mg/dL suggests DIABETES MELLITUS per A.D.A. criteria. Performed By: #### L 501.080 #### [facility] [address] [place], [address] Potassium [Moles/Vol] 3.7 mmol/L Normal 3.5-5.1 [facility] Comment on above: Order Comment: 1Y Performed By: #### L 501.080 #### [facility] [address] [place], [address] Sodium [Moles/Vol] 144 mmol/L Normal 136-145 [facility] Comment on above: Order Comment: 1Y Performed By: #### L 501.080 #### [facility] [address] [place], [address] Urea nitrogen [Mass/Vol] 18 mg/dL Normal 7-18 [facility] Comment on above: Order Comment: 1Y Performed By: #### L 501.080 #### [facility] [address] [place], [address] Basophil percentageOrdered B y: ED PROVIDER on 11-27-2023 Basophils/100 WBC (Bld) 0.9 % 0-1 [facility] Chloride [Moles/Vol] 113 mmol/L 98-107 [facility] Eosinophils/100 WBC (Bld) 8.7 % 0-5 [facility] Glucose [Mass/Vol] 164 mg/dL 74-106 [facility] Comment on above: Fasting Glucose resu lt greater than or equal to 126 mg/dL suggests DIABETES MELLITUS per A.D.A. criteria. Hemoglobin (Bld) [Mass/Vol] 12.8 g/dL 13.0-16.5 [facility] Monocytes/100 WBC (Bld) 13.3 % 0-10 [facility] Neutrophils (Bld) [#/Vol] 1.6 10*3/uL 2.0-7.7 [facility] Neutrophils/100 WBC (Bld) 49.2 % 47-70 [facility] Potassium [Moles/Vol] 3.7 mmol/L 3.5-5.1 [facility] Sodium [Moles/Vol] 144 mmol/L 136-145 [facility] WBC (Bld) [#/Vol] 3.2 10*3/uL 4.4-11.0 [facility] CBC W/Diff, Automatedon 02-0 5-2023 Absolute Lymph 0.89 X10 3/uL Normal 0.83-4.51 [facility] Comment on above: Performed By: #### L 501.080 #### [facility] [address] [place], [address] Absolute Neut 1.6 X10 3/uL Low 2.0-7.7 [facility] Comment on above: Performed By: #### L 501.080 #### [facility] [address] [place], [address] Basophils/100 WBC (Bld) 0.9 % Normal 0-1 [facility] Comment on above: Performed By: #### L 501.080 #### [facility] [address] [place], [address] Eosinophils/100 WBC (Bld) 8.7 % High 0-5 [facility] Comment on above: Performed By: #### L 501.080 #### [facility] [address] [place], [address] Erythrocyte distribution width (RBC) [Ratio] 15.4 % High 11.6-14.6 [facility] Comment on above: Performed By: #### L 501.080 #### [facility] [address] [place], [address] Hematocrit (Bld) [Volume fraction] 39.2 % Low 40-54 [facility] Comment on above: Performed By: #### L 501.080 #### [facility] [address] [place], [address] Hemoglobin (Bld) [Mass/Vol] 12.8 g/dL Low 13.0-16.5 [facility] Comment on above: Performed By: #### L 501.080 #### [facility] [address] [place], [address] IG% 0.300 Normal 0.0-0.9 [facility] Comment on above: Result Comment: IG% - Immature Granulocytes (promyelocytes, myelocytes and metamyelocytes) > 1% indicates that a LEFT SHIFT is Present. Performed By: #### L 501.080 #### [facility] [address] [place], [address] Lymphocytes/100 WBC (Bld) 27.6 % Normal 19-41 [facility] Comment on above: Performed By: #### L 501.080 #### [facility] [address] [place], [address] MCH (RBC) [Entitic mass] 29.3 pg Normal 27.0-32.0 [facility] Comment on above: Performed By: #### L 501.080 #### [facility] [address] [place], [address] MCHC (RBC) [Mass/Vol] 32.7 g/dL Normal 32-36 [facility] Comment on above: Performed By: #### L 501.080 #### [facility] [address] [place], [address] MCV (RBC) [Entitic vol] 89.7 fL Normal 80-94 [facility] Comment on above: Performed By: #### L 501.080 #### [facility] [address] [place], [address] Monocytes/100 WBC (Bld) 13.3 % High 0-10 [facility] Comment on above: Performed By: #### L 501.080 #### [facility] [address] [place], [address] Neutrophils/100 WBC (Bld) 49.2 % Normal 47-70 [facility] Comment on above: Performed By: #### L 501.080 #### [facility] [address] [place], [address] Nucleated RBC (Bld) [#/Vol] 0 10*3/uL Normal 0-5 [facility] Comment on above: Performed By: #### L 501.080 #### [facility] [address] [place], [address] Platelet mean volume (Bld) [Entitic vol] 9.9 fL Normal 6.2-12.0 [facility] Comment on above: Performed By: #### L 501.080 #### [facility] [address] [place], [address] Platelets (Bld) [#/Vol] 189 10*3/uL Normal 150-450 [facility] Comment on above: Performed By: #### L 501.080 #### [facility] [address] [place], [address] RBC (Bld) [#/Vol] 4.37 10*6/uL Low 4.6-6.2 [facility] Comment on above: Performed By: #### L 501.080 #### [facility] [address] [place], [address] RDW SD 50.2 fl High 35.1-43.9 [facility] Comment on above: Performed By: #### L 501.080 #### [facility] [address] [place], [address] WBC (Bld) [#/Vol] 3.2 10*3/uL Low 4.4-11.0 [facility] Comment on above: Performed By: #### L 501.080 #### [facility] [address] [place], [address] Chest 1 View (Portable)on Chest 1 View (Portable) [facility] [address] [place] [address] Chest 1 View (Portable) MR#: [id number] Acct: [id number] Name: OSEAS JOSEPH Rep #: [id number] : 1950 M 73 From: Glen sharp MD PCP: Dr. Connie Lugo MD Status: REG ER Study: Chest 1 View (Portable) Date of Exam: 11/27/23 Exam# [id number] Ordering Dr: Gabriel Howard DO [id number] STUDY: X-RAY CHEST REASON FOR EXAM: Male, 73 years old. Chest pain TECHNIQUE: Single AP portable view of the chest. COMPARISON: Comparison is made with prior study dated January 16, 2023. FINDINGS: EKG electrodes are seen. The lungs are clear and expanded. There is no demonstrated pleural abnormality. Normal size heart. Normal mediastinum and clare. Normal visualized pulmonary arteries. There is atherosclerotic tortuosity of the aortic arch and descending thoracic aorta. Normal visualized thoracic spine. Normal visualized ribs, clavicles, and shoulders. There is no demonstrated abnormality of the visualized soft tissue structures of the upper abdomen. RAD/Chest 1 View (Portable) IMPRESSION: No acute abnormality is present. Electronically Signed: Glen Mg MD at 15:22 EST , CC: Dr. Gabriel Howard DO; Dr. Connie Lugo MD Bdr: Signed Normal [facility] D-Dimer Quantitative (DVT/PE )on 11-27-2023 D-DIMER QUANT < 0.27 Low 0.27-0.49 [facility] Comment on above: Result Comment: NORM AL D-Dimer level (<0.50) indicates no DVT or PE. Performed By: #### L 503.6005 #### [facility] [address] [place], [address] Determination of erythrocyte mean corpuscular volume (MCV)Ordered By: ED PROVIDER on 11-27-2023 MCV (RBC) [Entitic vol] 89.7 fL 80-94 [facility] Emergency Department Summary on 11-27-2023 Emergency Department Summary [facility] Medical Records Department [address] [place] [address] Emergency Department Summary 11/27/23 MR#: [id number] Acct: [id number] Name: OSEAS JOSEPH Rep #: [id number] : 1950 73 From: Gabriel Howard DO PCP: Dr. Connie Lugo MD Status:DEP ER Location: ED HPI History of Present Illness Chief Complaint: Shortness of Breath Informant: patient Onset/Context/Timing Onset: Weeks (2) Context: gradual Timing: Continuous Quality: Positive for Dyspnea on exertion Worsened by: Exertion Relieved by: Rest Associated Symptoms Negative for cough, rhinorrhea, post nasal drip, ear pain, fever, sore throat, chills, sweats, clear sputum, white sputum, yellow sputum or green sputum Chest Pain: Positive for Continuous and - (Cramping) Narrative Narrative: Patient presents with shortness of breath that has been getting worse over the past 2 weeks. Patient states that it became worse today when he was walking to the mailbox and back. Patient states his breathing is worse with any exertion. Patient states it is better with rest. Patient admits to some right-sided chest pain. Patient describes it as cramping. Patient denies any cough. Patient denies any fevers or chills. Patient denies any nausea or vomiting. PE Risk Factors: Positive for Cancer and Prior DVT or PE; Negative for OCP + Smoking + > 35, Recent immobilization, Recent surgery or Recent travel [facility] Medical History Diabetes mellitus High cholesterol History of echocardiogram History of skin cancer HTN (hypertension) Hypokalemia Multiple myeloma Non-smoker Open wound RBBB Restless legs Wears glasses Home Medications amlodipine 5 mg tablet 5 mg PO DAILY blood pressure 02/09/21 [History Last Taken 01/16/23] atorvastatin 10 mg tablet 10 mg PO DAILY cholesterol 02/09/21 [History Last Taken 01/16/23] glimepiride 2 mg tablet 4 mg PO DAILY DM 04/19/22 [History Last Taken 01/16/23] losartan 50 mg tablet 50 mg PO DAILY BP 04/19/22 [History Last Taken 01/16/23] clonazepam 0.5 mg tablet 0.5 mg PO QHS anxiety 09/16/22 [History Last Taken 01/15/23] linaclotide 145 mcg capsule (Linzess) 145 mcg PO DAILY #30 caps 12/05/22 [Rx Last Taken 01/16/23] Velade See Rx Instructions .Route .COMPLEX CHEMO 01/16/23 [History Last Taken 01/11/23] acyclovir 400 mg tablet 400 mg PO BID anti viral 01/16/23 [History Last Taken 01/16/23 07:00] aspirin 81 mg tablet,delayed release 81 mg PO DAILY heart health 01/16/23 [History Last Taken 01/16/23] dexamethasone 4 mg tablet 40 mg PO WE CHEMO 01/16/23 [History Last Taken 01/11/23] glimepiride 2 mg tablet 2 mg PO DAILY DM 01/16/23 [History Last Taken 01/15/23] lenalidomide 25 mg capsule (Revlimid) 25 mg PO DAILY CHEMO 01/16/23 [History Last Taken 01/16/23] apixaban 5 mg (74 tabs) tablets in a dose pack (Eliquis DVT-PE Treat 30D Start) See Rx Instructions .Route .COMPLEX #74 tabs 01/17/23 [Rx Last Taken Unknown] Allergy/AdvReac Type Severity Reaction Status Date / Time No Known Allergies Allergy Verified 01/16/23 10:02 Family History Other Diabetes Hypertension Surgical History History of wisdom tooth extraction Hx of hernia repair ( 1964) Social History Smoking Status: Never smoker alcohol intake: current alcohol intake frequency: a few times a week Alcohol type: beer substance use type: does not use ROS ROS ED Constitutional Constitutional ED: Denies chills or fever(s) Eyes Eyes: Denies blurry vision or change in vision ENT ENT ED: Denies rhinorrhea or sore throat Cardiovascular Cardiovascular: Reports chest pain; Denies palpitations Respiratory/Chest Respiratory/Chest: Reports dyspnea; Denies cough Gastrointestinal Gastrointestinal: Denies nausea or vomiting Genitourinary Genitourinary ED: Denies dysuria or hematuria Musculoskeletal Musculoskeletal: Denies back pain or neck pain Integumentary Denies abscess or rash Neurologic Neurologic: Denies headache(s) or weakness Allergic/Immunologic Allergic/Immunologic ED: Denies mouth swelling or urticaria EXAM Physical Exam Const Vital Signs: 11/27/23 13:58 11/27/23 14:51 11/27/23 14:51 Temperature 96.5 F L Temperature Source Temporal Pulse Rate 57 L 53 L Respiratory Rate 16 14 Respiratory Effort Respiratory Depth Respiratory Pattern Blood Pressure 139/74 H 135/66 H Blood Pressure Mean 95 89 Pulse Ox 100 98 98 Oxygen Delivery Method Room Air Room Air Room Air 11/27/23 14:54 11/27/23 16:32 11/27/23 17:06 Temperature Temperature Source Pulse Rate 50 L 53 L Respiratory Rate 16 18 Respi (more content not included)... Normal [facility] Erythrocyte distribution wid th ratioOrdered By: ED PROVIDER on 11-27-2023 Erythrocyte distribution width (RBC) [Ratio] 15.4 % 11.6-14.6 [facility] Erythrocyte distribution wid th standard deviationOrdered By: ED PROVIDER on 11-27-2023 Erythrocyte distribution width (RBC) [Entitic vol] 50.2 fL 35.1-43.9 [facility] Hematocrit Auto (Bld) [Volum e fraction]Ordered By: ED PROVIDER on 11-27-2023 Hematocrit (Bld) [Volume fraction] 39.2 % 40-54 [facility] Immature granulocytes/100 WB C Auto (Bld)Ordered By: ED PROVIDER on 11-27-2023 Immature granulocytes/100 WBC (Bld) 0.300 % 0.0-0.9 [facility] Comment on above: IG% - Immature Granu locytes (promyelocytes, myelocytes and metamyelocytes) > 1% indicates that a LEFT SHIFT is Present. L501.4020on 11-27-2023 TROPONIN-I HS 13 pg/mL Normal 3.0-78.0 [facility] Comment on above: Result Comment: Plea se Note: New Test Units and Gender Specific Reference Ranges. For more information see Policy Stat Procedure [place] High Sensitivity Troponin (TNIH) and attachments. Performed By: #### L 501.080 #### [facility] [address] [place], [place], [address] L501.5425on 11-27-2023 TROPONIN-I HS 13 pg/mL Normal 3.0-78.0 [facility] Comment on above: Order Comment: 1Y Result Comment: Plea se Note: New Test Units and Gender Specific Reference Ranges. For more information see Policy Stat Procedure [place] High Sensitivity Troponin (TNIH) and attachments. Performed By: #### L 501.080 #### [facility] [address] [place], [place], [id number] Laboratory - Chemistry and C hemistry - challengeOrdered By: ED PROVIDER on 11-27-2023 CO2 [Moles/Vol] 24.0 mmol/L 21.0-32.0 [facility] Urea nitrogen/Creatinine [Mass ratio] 16.5 mg/mg 10-20 [facility] - CoagulationOrde red By: ED PROVIDER on 11-27-2023 PT Coag (PPP) [Time] 14.0 s 11.7-14.9 [facility] - Hematology and Cell countsOrdered By: ED PROVIDER on 11-27-2023 MCH (RBC) [Entitic mass] 29.3 pg 27.0-32.0 [facility] MCHC (RBC) [Mass/Vol] 32.7 g/dL 32-36 [facility] Nucleated RBC/100 WBC (Bld) [Ratio] 0 % 0-5 [facility] Platelets (Bld) [#/Vol] 189 10*3/uL 150-450 [facility] No Panel InformationOrdered By: ED PROVIDER on 11-27-2023 Troponin I High Sensitivity 13 pg/mL 3.0-78.0 [facility] Comment on above: Please Note: New Dee t Units and Gender Specific Reference Ranges. For more information see Policy Stat Procedure [place] High Sensitivity Troponin (TNIH) and attachments. Estimated Creatinine Clearance Calc 68.23 ml/min [facility] Estimated GFR (MDRD) Amer 86 mL/min >60 [facility] Comment on above: GFR Calc Estimated GFR (MDRD) Non-Af Amer 71 mL/min >60 [facility] Comment on above: Non- GFR Calc No Panel InformationOrdered By: Gabriel Howard on 11-27-2023 D-Dimer Quantitative (PE/DVT) < 0.27 FEU/ug/m 0.27-0.49 [facility] Comment on above: NORMAL D-Dimer level (<0.50) indicates no DVT or PE. Platelet mean volume Haider-Ec ker (Bld) [Entitic vol]Ordered By: ED PROVIDER on 11-27-2023 Platelet mean volume (Bld) [Entitic vol] 9.9 fL 6.2-12.0 [facility] Platelet poor plasma interna tional normalized ratio (INR)Ordered By: ED PROVIDER on 11-27-2023 INR Coag (PPP) [Relative time] 1.1 {INR} [facility] Prothrombin Time w/INRon INR Coag (PPP) [Relative time] 1.1 {INR} Normal [facility] Comment on above: Performed By: #### L 501.080 #### [facility] [address] [place], [place], [id number] PT Coag (PPP) [Time] 14.0 s Normal 11.7-14.9 [facility] Comment on above: Performed By: #### L 501.080 #### [facility] [address] [place], [place], [id number] RBC Auto (Bld) [#/Vol]Ordere d By: ED PROVIDER on 11-27-2023 RBC (Bld) [#/Vol] 4.37 10*6/uL 4.6-6.2 [facility] Serum or plasma calcium matt urement (mass/volume)Ordered By: ED PROVIDER on 11-27-2023 Calcium [Mass/Vol] 8.7 mg/dL 8.5-10.1 [facility] Serum or plasma creatinine m easurement (mass/volume)Ordered By: ED PROVIDER on 11-27-2023 Creatinine [Mass/Vol] 1.09 mg/dL 0.70-1.30 [facility] Comment on above: The validity of the calculated GFR & GFRAA in patients over 70 years has not been determined. Clinical correlation is essential. Serum or plasma urea nitroge n measurement (mass/volume)Ordered By: ED PROVIDER on 11-27-2023 Urea nitrogen [Mass/Vol] 18 mg/dL 7-18 [facility] Thin prep Papanicolaou smear with manual screeningOrdered By: ED PROVIDER on 11-27-2023 Thin prep Papanicolaou smear with manual screening 7 5-15 [facility] PET+CT Whole body Bone W 18F -NaF Gerard 07-27-2023 IMPRESSION: 1. Head and neck: No FDG avid neoplastic process. 2. Chest: No FDG avid neoplastic process. Small pericardial effusion or thickening. 3. Abdomen and pelvis: No FDG avid neoplastic process. Large left scrotal hypodensity, maybe due to a combination of a hydrocele and the previously reported large spermatocele. 4. Extremities/Skeleton: No FDG avid neoplastic process. The small 6 mm and 10 mm pelvic lesions described in the MRI study of 10/06/2022 are not seen on today's PET/CT and perhaps could be better followed with MRI. No focal hypermetabolic lesions or lytic/sclerotic lesions are detected. No evidence of a disseminated form of diffuse skeletal osteopenia. In the absence of PET positive lesions, smoldering multiple myeloma could be considered. Small left suprapatellar knee joint effusion with slight uptake, which may be posttraumatic, degenerative, or inflammatory. Transcribe Date/Time: Jul 27 2023 5:45P Dictated by: CESAR NICHOLS DO This examination was interpreted and the report reviewed and electronically signed by: CESAR NICHOLS DO on Jul 27 2023 7:02PM EST Thank you for allowing us to participate in the care of your patient. DIVISION OF RADIOLOGY * * *Final Report* * * DATE OF EXAM: Jul 24 2023 2:57PM OCN 0064 - NM PET/CT WHOLE BODY SUBQ / PROCEDURE REASON: Multiple myeloma not having achieved remission (HCC) * * * * Physician Interpretation * * * * RESULT: FDG PET-CT SCAN, whole body CLINICAL HISTORY: Multiple myeloma, not having achieved remission, MR enhancing lesions in left sacrum and right ischium INDICATION: Subsequent treatment strategy TECHNIQUE: Approximately 60 minutes following the IV administration of F-18 FDG (9.79 mCi of F-18 FDG), PET and noncontrast CT images were acquired from the skull vertex through the whole body and down to the toes. PET images were reconstructed with and without attenuation correction using attenuation coefficients. Noncontrast CT was performed for attenuation correction and anatomic localization purposes. Blood glucose level before FDG injection: 117 mg/dL CT Radiation dose: Integrated Dose-length product (DLP): 572 mGy*cm. CT Dose Reduction Employed: Automatic exposure control used (AED) COMPARISON/CORRELATION: MRI pelvis 10/06/2022, MRI liver 09/01/2022, scrotal ultrasound 05/17/2023, CT 08/26/2022 RESULTS: Head and Neck: No suspicious FDG uptake. No significant anatomical abnormality within the limits of a low dose CT. Chest: No suspicious FDG uptake. No consolidation or pleural effusion. There is a small pericardial effusion or thickening, maximum 6 mm thick adjacent to the right atrium. Abdomen and Pelvis: No suspicious FDG uptake. There is a 3.5 cm left hepatic hypodensity without increased uptake, correlating with the previously described proteinaceous or hemorrhagic cyst. Bilateral small renal cysts are seen. A large hypodensity in the left scrotum may be a combination of a hydrocele and the previously reported large spermatocele. Extremities/Skeleton: No suspicious FDG uptake. No significant anatomical abnormality within the limits of low dose CT. Slight asymmetric uptake at the lateral aspect of the left hip could be arthritic or related to the previously described multilocular cystic structure adjacent to the hip. Slight asymmetric uptake corresponding to a small left suprapatellar effusion. DIVISION [facility]OLOGY [facility] * * *Final Report* * * DATE OF EXAM: Jul 24 2023 2:57PM OCN 0064 - NM PET/CT WHOLE BODY SUBQ / PROCEDURE REASON: Multiple myeloma not having achieved remission (HCC) * * * * Physician Interpretation * * * * RESULT: FDG PET-CT SCAN, whole body CLINICAL HISTORY: Multiple myeloma, not having achieved remission, MR enhancing lesions in left sacrum and right ischium INDICATION: Subsequent treatment strategy TECHNIQUE: Approximately 60 minutes following the IV administration of F-18 FDG (9.79 mCi of F-18 FDG), PET and noncontrast CT images were acquired from the skull vertex through the whole body and down to the toes. PET images were reconstructed with and without attenuation correction using attenuation coefficients. Noncontrast CT was performed for attenuation correction and anatomic localization purposes. Blood glucose level before FDG injection: 117 mg/dL CT Radiation dose: Integrated Dose-length product (DLP): 572 mGy*cm. CT Dose Reduction Employed: Automatic exposure control used (AED) COMPARISON/CORRELATION: MRI pelvis 10/06/2022, MRI liver 09/01/2022, scrotal ultrasound 05/17/2023, CT 08/26/2022 RESULTS: Head and Neck: No suspicious FDG uptake. No significant anatomical abnormality within the limits of a low dose CT. Chest: No suspicious FDG uptake. No consolidation or pleural effusion. There is a small pericardial effusion or thickening, maximum 6 mm thick adjacent to the right atrium. Abdomen and Pelvis: No suspicious FDG uptake. There is a 3.5 cm left hepatic hypodensity without increased uptake, correlating with the previously described proteinaceous or hemorrhagic cyst. Bilateral small renal cysts are seen. A large hypodensity in the left scrotum may be a combination of a hydrocele and the previously reported large spermatocele. Extremities/Skeleton: No suspicious FDG uptake. No significant anatomical abnormality within the limits of low dose CT. Slight asymmetric uptake at the lateral aspect of the left hip could be arthritic or related to the previously described multilocular cystic structure adjacent to the hip. Slight asymmetric uptake corresponding to a small left suprapatellar effusion. IMPRESSION IMPRESSION: 1. Head and neck: No FDG avid neoplastic process. 2. Chest: No FDG avid neoplastic process. Small pericardial effusion or thickening. 3. Abdomen and pelvis: No FDG avid neoplastic process. Large left scrotal hypodensity, maybe due to a combination of a hydrocele and the previously reported large spermatocele. 4. Extremities/Skeleton: No FDG avid neoplastic process. The small 6 mm and 10 mm pelvic lesions described in the MRI study of 10/06/2022 are not seen on today's PET/CT and perhaps could be better followed with MRI. No focal hypermetabolic lesions or lytic/sclerotic lesions are detected. No evidence of a disseminated form of diffuse skeletal osteopenia. In the absence of PET positive lesions, smoldering multiple myeloma could be considered. Small left suprapatellar knee joint effusion with slight uptake, which may be posttraumatic, degenerative, or inflammatory. Transcribe Date/Time: Jul 27 2023 5:45P Dictated by: CESAR NICHOLS DO This examination was interpreted and the report reviewed and electronically signed by: CESAR NICHOLS DO on Jul 27 2023 7:02PM EST Thank you for allowing us to participate in the care of your patient. [facility] PET+CT Whole body Bone W 18F -NaF IVOrdered By: Ccf Provider on 07-27-2023 [facility] GLUCOSE, BLOOD (POC)on 07-26 Glucose [Mass/Vol] 117 mg/dL Abnormal 74 - 99 mg/dL [facility] Comment on above: Location:[facility], [address] [place] [address], [place], [place], [facility] The Accu-Chek Inform II glucose meter has not been approved for testing on patients receiving intensive medical intervention or therapy and results from this point of care glucose test should not be used for patient management decisions in these cases. Inaccurate results may also occur from other interfering factors, such as N-acetylcysteine (blood concentrations of greater than 5mg/dL), galactose, extremes of hematocrit (<10 or >65), or high doses of ascorbic acid (vitamin C) greater than 3mg/dL. Consider alternate testing mechanisms (e.g. core lab, blood gas instrument) in the above situations. Interpretation and review of laboratory results Abnormal [facility] PET+CT Whole body Bone W 18F -NaF Gerard 07-26-2023 Radiology Study observation (narrative) [facility] Dani 07-19-2023 CNPN Telephone ([facility]) -------- JAKEOSEAS Lui ([id number]) 1950 M BONE MAR* Date Time Provider Department 07/19/23 TEMO GILL During your visit today, we recorded the following information about you: Temo Gill RN 07/19/2023 11:57 AM Signed Spoke with patients at this time in regards to patients appointment Monday. Patient and his will be there. Temo Gill RN Allergies As of Date: 07/19/2023 (No Known Allergies) Date Reviewed: 07/10/2023 Reviewed by: Juan Manuel Asencio MA' - Fully Assessed Reason for Visit: Appointment [186] Prescriptions as of 07/19/2023 - sildenafil (VIAGRA) 50 mg tablet Take 50 mg by mouth as needed. - loperamide HCl (IMODIUM ORAL) Take by mouth as needed. - apixaban (ELIQUIS) 5 mg tab(s) Take 1 tablet by mouth twice daily. - glimepiride (AMARYL) 2 mg tablet Take 1 tablet by mouth daily with breakfast. Take 2 mg twice a day. May increase to 4mg BID if your PCP requests so. - melatonin 3 mg tablet Take 2 tablets by mouth at bedtime as needed for for insomnia. - acyclovir (ZOVIRAX) 400 mg tablet Take 1 tablet by mouth twice daily. - ondansetron (ZOFRAN) 8 mg tablet Take 1 tablet by mouth every 8 hours as needed for nausea/vomiting. - clonazePAM (KLONOPIN) 0.5 mg tablet Take 0.5 mg by mouth once daily. - amLODIPine (NORVASC) 5 mg tablet Take 5 mg by mouth once daily. - atorvastatin (LIPITOR) 10 mg tablet Take 10 mg by mouth once daily. - losartan (COZAAR) 50 mg tablet Take 50 mg by mouth once daily. 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] 08/25/2022 04/17/2023 Multiple myeloma not having achieved remission *10/26/2022 Disorder involving thrombocytopenia (HCC) [D69.*02/13/2023 04/17/2023 Personal history of diseases of blood and blood*03/30/2023 Mixed hyperlipidemia [E78.2] 04/17/2023 Primary hypertension [I10] 04/17/2023 Type 2 diabetes mellitus, without long-term cur*04/17/2023 Right bundle branch block [I45.10] 04/17/2023 Blurred vision [H53.8] 04/18/2023 Insomnia [G47.00] 04/18/2023 Multiple myeloma and immunoproliferative neopla*05/31/2023 Chronic diarrhea [K52.9] Pulmonary embolism (HCC) [I26.99] CINV (chemotherapy-induced nausea and vomiting)* Immunocompromised (HCC) [D84.9] Pancytopenia (HCC) [D61.818] Autologous bone marrow transplantation status (* Other constipation [K59.09] 06/03/2023 06/06/2023 Pancytopenia due to antineoplastic chemotherapy*06/06/2023 KYE (acute kidney injury) (HCC) [N17.9] 06/11/2023 Encounter Status:Closed by TEMO GILL on 07/19/23 [facility] URINALYSIS, REFLEX MICROSCOP ICon 07-07-2023 Bilirubin Ql (U) Negative Negative [facility] Clarity (Unsp spec) Clear Clear [facility] Color (U) Yellow Yellow [facility] Glucose Test strip (U) [Mass/Vol] Trace Trace, Negative [facility] Hemoglobin Ql (U) Negative Negative, Trace [facility] Ketones Ql (U) Negative Negative, Trace [facility] Leukocyte esterase Test strip Ql (U) Negative Negative, 25 Carlos A/uL [facility] Nitrite Ql (U) Negative Negative [facility] pH (U) 5.0 [pH] 5.0 - 8.0 [facility] Protein (U) [Mass/Vol] Trace Trace , Negative [facility] Specific gravity (U) [Rel density] 1.022 1.005 - 1.030 [facility] Urobilinogen Ql (U) Negative Negative [facility] CBC W Auto Differential pane l (Bld)on 06-21-2023 Basophilic stippling LM Ql (Bld) Occasional [facility] Basophils (Bld) [#/Vol] 0.05 10*3/uL <0.11 k/uL [facility] Basophils/100 WBC (Bld) 1.0 % [facility] Dacrocytes LM Ql (Bld) Few Cl [facility] Differential cell count method Nom (Bld) Manual [facility] Eosinophils (Bld) [#/Vol] 0.00 10*3/uL <0.46 k/uL [facility] Eosinophils/100 WBC (Bld) 0.0 % [facility] Erythrocyte distribution width (RBC) [Ratio] 15.1 % High 11.5 - 15.0 % [facility] Hematocrit (Bld) [Volume fraction] 29.9 % Low 39.0 - 51.0 % [facility] Hemoglobin (Bld) [Mass/Vol] 10.1 g/dL Low 13.0 - 17.0 g/dL [facility] Lymphocytes (Bld) [#/Vol] 0.38 10*3/uL Low 1.00 - 4.00 k/uL [facility] Lymphocytes/100 WBC (Bld) 8.0 % [facility] MCH (RBC) [Entitic mass] 31.4 pg 26.0 - 34.0 pg [facility] MCHC (RBC) [Mass/Vol] 33.8 g/dL 30.5 - 36.0 g/dL [facility] MCV (RBC) [Entitic vol] 92.9 fL 80.0 - 100.0 fL [facility] [place] % 3.0 % [facility] Monocytes (Bld) [#/Vol] 0.76 10*3/uL <0.87 k/uL [facility] Monocytes/100 WBC (Bld) 16.0 % [facility] Myelo % 2.0 % [facility] Neutrophils (Bld) [#/Vol] 3.34 10*3/uL 1.45 - 7.50 k/uL [facility] Neutrophils/100 WBC (Bld) 70.0 % [facility] Nucleated RBC (Bld) [#/Vol] <0.01 k/uL [facility] Nucleated RBC/100 WBC (Bld) [Ratio] 0.0 /100 WBC [facility] Ovalocytes LM Ql (Bld) Few Cl [facility] Platelet mean volume (Bld) [Entitic vol] 9.9 fL 9.0 - 12.7 fL [facility] Platelets (Bld) [#/Vol] 318 10*3/uL 150 - 400 k/uL [facility] Platelets Estimate (Bld) [#/Vol] Adequate [facility] Polychromasia LM Ql (Bld) Slight [facility] RBC (Bld) [#/Vol] 3.22 10*6/uL Low 4.20 - 6.0 0 m/uL [facility] Red Cell Morph Reviewed: see result s of individual morphologies [facility] WBC (Bld) [#/Vol] 4.77 10*3/uL 3.70 - 11.00 k/uL [facility] WBC Left Shift Ql (Bld) Present [facility] Comprehensive metabolic 2000 panelon 06-21-2023 Albumin [Mass/Vol] 3.9 g/dL 3.9 - 4.9 g/dL [facility] ALP [Catalytic activity/Vol] 54 U/L 38 - 113 U/L [facility] ALT [Catalytic activity/Vol] 15 U/L 10 - 54 U/L [facility] Anion gap [Moles/Vol] 9 mmol/L 9 - 18 mmol/L [facility] AST [Catalytic activity/Vol] 13 U/L Low 14 - 40 U/L [facility] Bilirubin [Mass/Vol] 0.2 mg/dL 0.2 - 1 .3 mg/dL [facility] Calcium [Mass/Vol] 9.3 mg/dL 8.5 - 10. 2 mg/dL [facility] Chloride [Moles/Vol] 108 mmol/L High 97 - 10 5 mmol/L [facility] CO2 [Moles/Vol] 25 mmol/L 22 - 30 mmol/L [facility] Creatinine [Mass/Vol] 1.13 mg/dL 0.73 - 1.22 mg/dL [facility] Estimated Glomerular Filtration Rate 69 mL/min/1.73m >=60 mL/min/1.73 m [facility] Glucose [Mass/Vol] 129 mg/dL High 74 - 99 mg/dL [facility] Potassium [Moles/Vol] 4.3 mmol/L 3.7 - 5.1 mmol/L [facility] Protein [Mass/Vol] 6.2 g/dL Low 6.3 - 8.0 g/dL [facility] Sodium [Moles/Vol] 142 mmol/L 136 - 144 mmol/L [facility] Urea nitrogen [Mass/Vol] 16 mg/dL 9 - 24 mg/dL [facility] MAGNESIUM BLDon 06-21-2023 Magnesium [Mass/Vol] 1.9 mg/dL 1.7 - 2 .3 mg/dL [facility] RUBEOLA (MEASLES)IGGon 06-21 Measles Antibody, IGG Qualitative Negative Abnormal Positive [facility] VARICELLA ZOSTER IGGon 06-21 Varicella Zoster IgG, Qual Positive Positive [facility] ABO and Rh group panel (Bld) on 06-19-2023 ABO group Nom (Bld) A [facility] Rh Nom (Bld) Positive [facility] ANTIBODY SCREENon 06-19-2023 Blood group antibody screen Ql Positive [facility] HIstorical Ab Scr Status Positive Abnormal [facility] Type and Screen Expiration 06/22/2023 23:59 [facility] CBC W Auto Differential pane l (Bld)on 06-19-2023 Basophils (Bld) [#/Vol] 0.00 10*3/uL <0.11 k/uL [facility] Basophils/100 WBC (Bld) 0.0 % [facility] Differential cell count method Nom (Bld) Manual [facility] Eosinophils (Bld) [#/Vol] 0.00 10*3/uL <0.46 k/uL [facility] Eosinophils/100 WBC (Bld) 0.0 % [facility] Erythrocyte distribution width (RBC) [Ratio] 15.2 % High 11.5 - 15.0 % [facility] Hematocrit (Bld) [Volume fraction] 28.7 % Low 39.0 - 51.0 % [facility] Hemoglobin (Bld) [Mass/Vol] 9.7 g/dL Low 13.0 - 17.0 g/dL [facility] Lymphocytes (Bld) [#/Vol] 1.00 10*3/uL 1.00 - 4.00 k/uL [facility] Lymphocytes/100 WBC (Bld) 11.0 % [facility] MCH (RBC) [Entitic mass] 31.2 pg 26.0 - 34.0 pg [facility] MCHC (RBC) [Mass/Vol] 33.8 g/dL 30.5 - 36.0 g/dL [facility] MCV (RBC) [Entitic vol] 92.3 fL 80.0 - 100.0 fL [facility] [place] % 10.0 % [facility] Monocytes (Bld) [#/Vol] 1.09 10*3/uL High <0.87 k/uL [facility] Monocytes/100 WBC (Bld) 12.0 % [facility] Myelo % 7.0 % [facility] Neutrophils (Bld) [#/Vol] 5.43 10*3/uL 1.45 - 7.50 k/uL [facility] Neutrophils/100 WBC (Bld) 60.0 % [facility] Nucleated RBC (Bld) [#/Vol] <0.01 k/uL [facility] Nucleated RBC/100 WBC (Bld) [Ratio] 0.0 /100 WBC [facility] Ovalocytes LM Ql (Bld) Few Cl [facility] Platelet mean volume (Bld) [Entitic vol] 10.5 fL 9.0 - 12.7 fL [facility] Platelets (Bld) [#/Vol] 239 10*3/uL 150 - 400 k/uL [facility] Platelets Estimate (Bld) [#/Vol] Adequate [facility] Polychromasia LM Ql (Bld) Slight [facility] RBC (Bld) [#/Vol] 3.11 10*6/uL Low 4.20 - 6.0 0 m/uL [facility] RBC Fragments Few Abnormal None Seen [facility] Red Cell Morph Reviewed: see result s of individual morphologies [facility] WBC (Bld) [#/Vol] 9.05 10*3/uL 3.70 - 11.00 k/uL [facility] WBC Left Shift Ql (Bld) Present [facility] Comprehensive metabolic 2000 panelon 06-19-2023 Albumin [Mass/Vol] 3.9 g/dL 3.9 - 4.9 g/dL [facility] ALP [Catalytic activity/Vol] 56 U/L 38 - 113 U/L [facility] ALT [Catalytic activity/Vol] 15 U/L 10 - 54 U/L [facility] Anion gap [Moles/Vol] 11 mmol/L 9 - 18 mmol/L [facility] AST [Catalytic activity/Vol] 16 U/L 14 - 40 U/L [facility] Bilirubin [Mass/Vol] 0.2 mg/dL 0.2 - 1 .3 mg/dL [facility] Calcium [Mass/Vol] 9.1 mg/dL 8.5 - 10. 2 mg/dL [facility] Chloride [Moles/Vol] 108 mmol/L High 97 - 10 5 mmol/L [facility] CO2 [Moles/Vol] 22 mmol/L 22 - 30 mmol/L [facility] Creatinine [Mass/Vol] 0.99 mg/dL 0.73 - 1.22 mg/dL [facility] Estimated Glomerular Filtration Rate 81 mL/min/1.73m >=60 mL/min/1.73 m [facility] Glucose [Mass/Vol] 125 mg/dL High 74 - 99 mg/dL [facility] Potassium [Moles/Vol] 3.8 mmol/L 3.7 - 5.1 mmol/L [facility] Protein [Mass/Vol] 6.0 g/dL Low 6.3 - 8.0 g/dL [facility] Sodium [Moles/Vol] 141 mmol/L 136 - 144 mmol/L [facility] Urea nitrogen [Mass/Vol] 15 mg/dL 9 - 24 mg/dL [facility] MAGNESIUM BLDon 06-19-2023 Magnesium [Mass/Vol] 1.7 mg/dL 1.7 - 2 .3 mg/dL [facility] RUBEOLA (MEASLES)IGGon 06-19 Measles Antibody, IGG Qualitative Negative Abnormal Positive [facility] VARICELLA ZOSTER IGGon 06-19 Varicella Zoster IgG, Qual Positive Positive [facility] ABO/RH RECHECKon 05-17-2023 [facility] AUTO PROD CD34% FOR PANEL OR DERSon 05-17-2023 Auto Product CD34% 0.55 % [facility] Viability of CD34+ cells 100 % [facility] Basic metabolic 2000 panelon 05-17-2023 Anion gap [Moles/Vol] 15 mmol/L 9 - 18 mmol/L [facility] Calcium [Mass/Vol] 9.7 mg/dL 8.5 - 10. 2 mg/dL [facility] Chloride [Moles/Vol] 104 mmol/L 97 - 10 5 mmol/L [facility] CO2 [Moles/Vol] 26 mmol/L 22 - 30 mmol/L [facility] Creatinine [Mass/Vol] 1.41 mg/dL High 0.73 - 1.22 mg/dL [facility] Estimated Glomerular Filtration Rate 53 mL/min/1.73m Low >=60 mL/min/1.73 m [facility] Glucose [Mass/Vol] 171 mg/dL High 74 - 99 mg/dL [facility] Potassium [Moles/Vol] 3.6 mmol/L Low 3.7 - 5.1 mmol/L [facility] Sodium [Moles/Vol] 145 mmol/L High 136 - 144 mmol/L [facility] Urea nitrogen [Mass/Vol] 13 mg/dL 9 - 24 mg/dL [facility] CBC W Auto Differential pane l (Bld)on 05-17-2023 Basophils (Bld) [#/Vol] 0.68 10*3/uL High <0.11 k/uL [facility] Basophils/100 WBC (Bld) 1.0 % [facility] Differential cell count method Nom (Bld) Manual [facility] Eosinophils (Bld) [#/Vol] 0.68 10*3/uL High <0.46 k/uL [facility] Eosinophils/100 WBC (Bld) 1.0 % [facility] Erythrocyte distribution width (RBC) [Ratio] 14.9 % 11.5 - 15.0 % [facility] Hematocrit (Bld) [Volume fraction] 33.8 % Low 39.0 - 51.0 % [facility] Hemoglobin (Bld) [Mass/Vol] 11.2 g/dL Low 13.0 - 17.0 g/dL [facility] Lymphocytes (Bld) [#/Vol] 0.68 10*3/uL Low 1.00 - 4.00 k/uL [facility] Lymphocytes/100 WBC (Bld) 1.0 % [facility] MCH (RBC) [Entitic mass] 31.2 pg 26.0 - 34.0 pg [facility] MCHC (RBC) [Mass/Vol] 33.1 g/dL 30.5 - 36.0 g/dL [facility] MCV (RBC) [Entitic vol] 94.2 fL 80.0 - 100.0 fL [facility] [place] % 2.0 % [facility] Monocytes (Bld) [#/Vol] 2.05 10*3/uL High <0.87 k/uL [facility] Monocytes/100 WBC (Bld) 3.0 % [facility] Neutrophils (Bld) [#/Vol] 62.88 10*3/uL High 1.45 - 7.50 k/uL [facility] Neutrophils/100 WBC (Bld) 92.0 % [facility] Nucleated RBC (Bld) [#/Vol] <0.01 k/uL [facility] Nucleated RBC/100 WBC (Bld) [Ratio] 0.0 /100 WBC [facility] Ovalocytes LM Ql (Bld) Few Cl [facility] Platelet mean volume (Bld) [Entitic vol] 9.5 fL 9.0 - 12.7 fL [facility] Platelets (Bld) [#/Vol] 123 10*3/uL Low 150 - 400 k/uL [facility] Platelets Estimate (Bld) [#/Vol] Decreased [facility] Polychromasia LM Ql (Bld) Slight [facility] RBC (Bld) [#/Vol] 3.59 10*6/uL Low 4.20 - 6.0 0 m/uL [facility] Red Cell Morph Reviewed: see result s of individual morphologies [facility] WBC (Bld) [#/Vol] 68.35 10*3/uL High 3.70 - 11.00 k/uL [facility] WBC Left Shift Ql (Bld) Present [facility] MAGNESIUM BLDon 05-17-2023 Magnesium [Mass/Vol] 1.6 mg/dL Low 1.7 - 2 .3 mg/dL [facility] US PELVIS LTDon 05-17-2023 [facility] US SCROTUM AND CONTENTSon [facility] HISTORY PHYSICALon HISTORY PHYSICAL HNO ID: [id number] Author: Brooke Birmingham PA-C Service: Interventional Radiology Author Type: Physician Spray Pilot Type: HANDP Filed: 05/10/2023 10:51 AM Note Text: UPDATED HISTORY AND PHYSICAL EXAMINATION PATIENT NAME: Oseas Joseph SERVICE DATE: 05/10/2023 SERVICE TIME: 10:48 AM PHYSICAL EXAM MUST BE COMPLETED ON ADMISSION The History and Physical (completed in the past 30 days) has been reviewed and the patient has been examined. The contents accurately reflect the patient's condition with the following additions or revisions since the HANDP was completed. This is a 72 y/o male that presents for port placement. He has a PMH significant for DM type 2, HTN, right bundle branch block, and multiple myeloma. He has no complaints at this time. Patient denies any changes to health since last examination. Patient DENIES CHEST PAIN, PALPITATIONS, FATIGUE, DIZZINESS Shortness of breath, COUGHING, WHEEZING ABDOMINAL PAIN, N/V/D Medication reconciliation list reviewed in [facility]. Past medical history, past surgical history, social history and family history reviewed and updated in [facility]. ALLERGIES Allergies: No Known Allergies SEE [facility] FOR VITALS BP 165/79 Pulse 63 Temp 36.6 ?C (97.9 ?F) (Temporal) Resp 16 Ht 182.9 cm (6') Wt 87.1 kg (192 lb) SpO2 99% BMI 26.04 kg/m? Examination indicates no changes. On examination today: Lungs: Clear to auscultation bilaterally. Heart: RRR, Normal S1/S2, No murmurs, rubs, gallops or thrills appreciated. Abdomen: BS+ in all quadrants, abdomen is soft, non tender, and without guarding. Assessment: Encounter for other preprocedural examination Z01.818 C90.00 Multiple myeloma not having achieved remission (HCC) Z01.818 Pre-transplant evaluation for stem cell transplant Plan: 1.TRIPLE LUMEN TRIFUSION (N/A) - Position 1 I spent a total of 10 minutes on the date of the service which included preparing to see the patient, [id number] patient care, completing clinical documentation, obtaining and/or reviewing separately obtained history, and performing a medically appropriate examination. This HANDP can be found in the Electronic Medical Record dated 05/03/2023 completed by Earl Simpson MD SIGNATURE: Brooke Birmingham PA-C DATE: May 10, 2023 TIME: 10:48 AM [facility] IR FLUOR GUID VASC ACCESSon 05-10-2023 IR FLUOR GUID VASC ACCESS * * *Final Report* * * DATE OF EXAM: May 10 2023 12:30PM [facility] 8061 - IR FLUOR GUID VASC ACCESS / PROCEDURE REASON: multiple myeloma * * * * Physician Interpretation * * * * RESULT: PROCEDURE: TUNNELED CENTRAL VENOUS CATHETER PLACEMENT Procedural Personnel Attending physician(s): Huang Moser MD Fellow physician(s): None Resident physician(s): None Advanced practice provider(s): None Medical Student(s): None Pre-procedure diagnosis: Myeloma Post-procedure diagnosis: Same Indication(s): 72-year-old male with multiple myeloma needing autologous bone marrow transplant, who presents for Trifusion catheter placement Additional clinical history: None PROCEDURE SUMMARY: - Venous access with ultrasound guidance - Tunneled central venous catheter insertion with fluoroscopic guidance - Additional procedure(s): None PROCEDURE DETAILS: Pre-procedure Consent: Risks, benefits, treatment options, potential complications and personnel to be involved were discussed (including the risks of radiation exposure, contrast and anesthesia administration, and any equipment needed for the procedure to ensure best possible outcome) with the patient and all questions were answered and consent was obtained prior to procedure. Premedicated for contrast allergy: n/a Transfusion of blood products: No Medication reconciliation: The patient's medications and allergies were reviewed in the electronic medical record and reconciled to the proposed procedure/treatment. Mare-procedure discussion: The appropriate elements of the pre-procedure discussion, safety check list and sign-out were performed. Time out: A time out was performed immediately prior to procedure start with the nursing and interventional team, correctly identifying the name, date of , procedure, anatomy (including marking of site and side if applicable), patient position, procedure consent form, relevant diagnostic and radiology test results, antibiotic administration if applicable, safety precautions, and procedure-specific equipment needs. Start of procedure: 12:15 PM End of procedure: 12:30 PM Patient position: Supine Preparation (MIPS): The site was prepared and draped using all elements of maximal sterile barrier technique including sterile gloves, sterile gown, cap, mask, large sterile sheet, sterile ultrasound probe cover, hand hygiene and cutaneous antisepsis with 2% chlorhexidine. Medical reason for site preparation exception (MIPS): Not applicable Antibiotics: None Antibiotic infusion start time: N/A Prophylactic antibiotic administered: None Additional med: None Additional med: None Contrast None Image Guidance Fluoroscopic and sonographic guidance was used. Ultrasound demonstrated patency of the target vein without filling defects. Access was obtained under direct sonographic visualization. A sonographic image of the vessel was obtained and placed into the permanent archive for documentation. Radiation Dose Plane A, Air Kerma: 1.3 mGy Dose Area Product (DAP): 18.6 uGym2 Fluoro Time: 0:24 min:sec Radiation dose exceed 5 Gy: No If radiation dose exceeded 5 Gy, was counseling and instructional brochure provided: N/A Anesthesia/sedation Level of anesthesia/sedation: Moderate sedation (conscious sedation) Anesthesia/sedation administered by: Independent trained observer under attending supervision with continuous monitoring of the patient?s level of consciousness and physiologic status Total intra-service sedation time (minutes): 23 Local anesthesia: 1 % lidocaine Access Local anesthesia was administered. The vessel was sonographically evaluated and determined to be patent. Real time ultrasound was used to visualize needle entry into the vessel and a permanent image was stored. Vein accessed: Internal jugular vein Access technique: Micropuncture set with 21 gauge needle Catheter placement An incision was made near the venous access site and the catheter was tunneled subcutaneously to the venous access site. The catheter was advanced via a peel-away sheath into the vein under fluoroscopic guidance. Catheter tip location was fluoroscopically verified and a permanent image was stored. Catheter placed: 19 cm 12 F Finn TriFusion pheresis catheter Catheter flush: Normal saline Closure A sterile dressing was applied. Access site closure technique: Absorbable suture and tissue adhesive Catheter securement technique: Non-absorbable suture Additional Details Additional description of procedure: None Equipment details: None Number and Type of Removed Specimens: 0: N/A Estimated blood loss (mL): Less than 10 Standardized report: [email or web address] Complications There were no immediate complications and no other complications. Conclusion The patient was comfortable and was trans (more content not included)... [facility] IR US GUIDE VASC ACCESSon IR US GUIDE VASC ACCESS * * *Final Report* * * DATE OF EXAM: May 10 2023 12:30PM [facility] 3747 - IR US GUIDE VASC ACCESS / PROCEDURE REASON: multiple myeloma * * * * Physician Interpretation * * * * RESULT: PROCEDURE: TUNNELED CENTRAL VENOUS CATHETER PLACEMENT Procedural Personnel Attending physician(s): Huang Moser MD Fellow physician(s): None Resident physician(s): None Advanced practice provider(s): None Medical Student(s): None Pre-procedure diagnosis: Myeloma Post-procedure diagnosis: Same Indication(s): 72-year-old male with multiple myeloma needing autologous bone marrow transplant, who presents for Trifusion catheter placement Additional clinical history: None PROCEDURE SUMMARY: - Venous access with ultrasound guidance - Tunneled central venous catheter insertion with fluoroscopic guidance - Additional procedure(s): None PROCEDURE DETAILS: Pre-procedure Consent: Risks, benefits, treatment options, potential complications and personnel to be involved were discussed (including the risks of radiation exposure, contrast and anesthesia administration, and any equipment needed for the procedure to ensure best possible outcome) with the patient and all questions were answered and consent was obtained prior to procedure. Premedicated for contrast allergy: n/a Transfusion of blood products: No Medication reconciliation: The patient's medications and allergies were reviewed in the electronic medical record and reconciled to the proposed procedure/treatment. Mare-procedure discussion: The appropriate elements of the pre-procedure discussion, safety check list and sign-out were performed. Time out: A time out was performed immediately prior to procedure start with the nursing and interventional team, correctly identifying the name, date of , procedure, anatomy (including marking of site and side if applicable), patient position, procedure consent form, relevant diagnostic and radiology test results, antibiotic administration if applicable, safety precautions, and procedure-specific equipment needs. Start of procedure: 12:15 PM End of procedure: 12:30 PM Patient position: Supine Preparation (MIPS): The site was prepared and draped using all elements of maximal sterile barrier technique including sterile gloves, sterile gown, cap, mask, large sterile sheet, sterile ultrasound probe cover, hand hygiene and cutaneous antisepsis with 2% chlorhexidine. Medical reason for site preparation exception (MIPS): Not applicable Antibiotics: None Antibiotic infusion start time: N/A Prophylactic antibiotic administered: None Additional med: None Additional med: None Contrast None Image Guidance Fluoroscopic and sonographic guidance was used. Ultrasound demonstrated patency of the target vein without filling defects. Access was obtained under direct sonographic visualization. A sonographic image of the vessel was obtained and placed into the permanent archive for documentation. Radiation Dose Plane A, Air Kerma: 1.3 mGy Dose Area Product (DAP): 18.6 uGym2 Fluoro Time: 0:24 min:sec Radiation dose exceed 5 Gy: No If radiation dose exceeded 5 Gy, was counseling and instructional brochure provided: N/A Anesthesia/sedation Level of anesthesia/sedation: Moderate sedation (conscious sedation) Anesthesia/sedation administered by: Independent trained observer under attending supervision with continuous monitoring of the patient?s level of consciousness and physiologic status Total intra-service sedation time (minutes): 23 Local anesthesia: 1 % lidocaine Access Local anesthesia was administered. The vessel was sonographically evaluated and determined to be patent. Real time ultrasound was used to visualize needle entry into the vessel and a permanent image was stored. Vein accessed: Internal jugular vein Access technique: Micropuncture set with 21 gauge needle Catheter placement An incision was made near the venous access site and the catheter was tunneled subcutaneously to the venous access site. The catheter was advanced via a peel-away sheath into the vein under fluoroscopic guidance. Catheter tip location was fluoroscopically verified and a permanent image was stored. Catheter placed: 19 cm 12 F Finn TriFusion pheresis catheter Catheter flush: Normal saline Closure A sterile dressing was applied. Access site closure technique: Absorbable suture and tissue adhesive Catheter securement technique: Non-absorbable suture Additional Details Additional description of procedure: None Equipment details: None Number and Type of Removed Specimens: 0: N/A Estimated blood loss (mL): Less than 10 Standardized report: [email or web address] Complications There were no immediate complications and no other complications. Conclusion The patient was comfortable and was transfe (more content not included)... Normal [facility] FLOW CYTOMETRY BONE MARROW H OLD (BMHOLD)on 04-19-2023 Flow Cytometry Order Status See Results in chart under F case ID [facility] XR CHEST 2V FRONTAL/LATon [facility] Absolute lymphocyte countOrd ered By: Dr. Ko on 01-17-2023 Lymphocytes Auto (Unsp spec) [#/Vol] 1.02 10*3/uL 0.83-4.51 [facility] Basophil percentageOrdered B y: Dr. Ko on 01-17-2023 Basophils/100 WBC (Bld) 0.3 % 0-1 [facility] Chloride [Moles/Vol] 111 mmol/L 98-107 [facility] Eosinophils/100 WBC (Bld) 2.0 % 0-5 [facility] Glucose [Mass/Vol] 216 mg/dL 74-106 [facility] Comment on above: Glucose result great er than or equal to 200 mg/dLsuggests DIABETES MELLITUS per A.D.A. criteria. Neutrophils (Bld) [#/Vol] 4.2 10*3/uL 2.0-7.7 [facility] Neutrophils/100 WBC (Bld) 71.2 % 47-70 [facility] Potassium [Moles/Vol] 4.0 mmol/L 3.5-5.1 [facility] Sodium [Moles/Vol] 136 mmol/L 136-145 [facility] WBC (Bld) [#/Vol] 6.0 10*3/uL 4.4-11.0 [facility] Blood erythrocytes count (nu mber/volume)Ordered By: Dr. Ko on 01-17-2023 RBC (Bld) [#/Vol] 4.51 10*6/uL 4.6-6.2 [facility] Blood hemoglobin measurement (mass/volume)Ordered By: Dr. Ko on 01-17-2023 Hemoglobin (Bld) [Mass/Vol] 13.1 g/dL 13.0-16.5 [facility] Blood lymphocytes/100 leukoc ytesOrdered By: Dr. Ko on 01-17-2023 Lymphocytes/100 WBC (Bld) 17.1 % 19-41 [facility] Blood monocytes/100 leukocyt esOrdered By: Dr. Ko on 01-17-2023 Monocytes/100 WBC (Bld) 8.7 % 0-10 [facility] Blood platelet mean volumeOr dered By: Dr. Ko on 01-17-2023 Platelet mean volume (Bld) [Entitic vol] 12.2 fL 6.2-12.0 [facility] Determination of erythrocyte mean corpuscular volume (MCV)Ordered By: Dr. Ko on 01-17-2023 MCV (RBC) [Entitic vol] 88.7 fL 80-94 [facility] Glucose Glucometer (BldC) [M ass/Vol]Ordered By: Dr. Ko on 01-17-2023 Glucose [Mass/Vol] 139 mg/dL 74-106 [facility] Comment on above: MANAGEMENT OF PATIEN T CARE PER NURSING PROTOCOL Hematocrit Auto (Bld) [Volum e fraction]Ordered By: Dr. Ko on 01-17-2023 Hematocrit (Bld) [Volume fraction] 40.0 % 40-54 [facility] - Chemistry and C hemistry - challengeOrdered By: Dr. Ko on 01-17-2023 CO2 [Moles/Vol] 19.0 mmol/L 21.0-32.0 [facility] Urea nitrogen/Creatinine [Mass ratio] 17.4 mg/mg 10-20 [facility] - CoagulationOrde red By: Dr. Ko on 01-17-2023 aPTT Coag (Bld) [Time] 44.0 s 24.1-36.2 [facility] - Hematology and Cell countsOrdered By: Dr. Ko on 01-17-2023 Erythrocyte distribution width (RBC) [Entitic vol] 49.1 fL 35.1-43.9 [facility] Erythrocyte distribution width (RBC) [Ratio] 15.5 % 11.6-14.6 [facility] Immature granulocytes/100 WBC (Bld) 0.700 % 0.0-0.9 [facility] Comment on above: IG% - Immature Granu locytes (promyelocytes, myelocytes and metamyelocytes) > 1% indicates that a LEFT SHIFT is Present. MCH (RBC) [Entitic mass] 29.0 pg 27.0-32.0 [facility] Nucleated RBC/100 WBC (Bld) [Ratio] 0 % 0-5 [facility] MCHC Auto (RBC) [Mass/Vol]Or dered By: Dr. Ko on 01-17-2023 MCHC (RBC) [Mass/Vol] 32.8 g/dL 32-36 [facility] No Panel InformationOrdered By: Dr. Ko on 01-17-2023 Estimated Creatinine Clearance Calc 62.35 ml/min [facility] Estimated GFR (MDRD) Amer 76 mL/min >60 [facility] Comment on above: GFR Calc Estimated GFR (MDRD) Non-Af Amer 63 mL/min >60 [facility] Comment on above: Non- GFR Calc Platelets bldOrdered By: Dr. Ko on 01-17-2023 Platelets (Bld) [#/Vol] 62 10*3/uL 150-450 [facility] Serum or plasma calcium matt urement (mass/volume)Ordered By: Dr. Ko on 01-17-2023 Calcium [Mass/Vol] 8.2 mg/dL 8.5-10.1 [facility] Serum or plasma creatinine m easurement (mass/volume)Ordered By: Dr. Ko on 01-17-2023 Creatinine [Mass/Vol] 1.21 mg/dL 0.70-1.30 [facility] Comment on above: The validity of the calculated GFR & GFRAA in patients over 70 years has not been determined. Clinical correlation is essential. Serum or plasma urea nitroge n measurement (mass/volume)Ordered By: Dr. Ko on 01-17-2023 Urea nitrogen [Mass/Vol] 21 mg/dL 7-18 [facility] Thin prep Papanicolaou smear with manual screeningOrdered By: Dr. Ko on 01-17-2023 Thin prep Papanicolaou smear with manual screening 6 5-15 [facility] Absolute lymphocyte countOrd ered By: Dr. Kerr on 01-16-2023 Lymphocytes Auto (Unsp spec) [#/Vol] 1.20 10*3/uL 0.83-4.51 [facility] Basophil percentageOrdered B y: Dr. Kerr on 01-16-2023 Basophils/100 WBC (Bld) 0.5 % 0-1 [facility] Chloride [Moles/Vol] 109 mmol/L 98-107 [facility] Eosinophils/100 WBC (Bld) 3.3 % 0-5 [facility] Glucose [Mass/Vol] 245 mg/dL 74-106 [facility] Comment on above: Glucose result great er than or equal to 200 mg/dLsuggests DIABETES MELLITUS per A.D.A. criteria. Neutrophils (Bld) [#/Vol] 5.5 10*3/uL 2.0-7.7 [facility] Neutrophils/100 WBC (Bld) 70.4 % 47-70 [facility] Potassium [Moles/Vol] 4.2 mmol/L 3.5-5.1 [facility] Sodium [Moles/Vol] 136 mmol/L 136-145 [facility] WBC (Bld) [#/Vol] 7.9 10*3/uL 4.4-11.0 [facility] Blood erythrocytes count (nu mber/volume)Ordered By: Dr. Kerr on 01-16-2023 RBC (Bld) [#/Vol] 4.74 10*6/uL 4.6-6.2 [facility] Blood hemoglobin measurement (mass/volume)Ordered By: Dr. Kerr on 01-16-2023 Hemoglobin (Bld) [Mass/Vol] 13.8 g/dL 13.0-16.5 [facility] Blood lymphocytes/100 leukoc ytesOrdered By: Dr. Kerr on 01-16-2023 Lymphocytes/100 WBC (Bld) 15.2 % 19-41 [facility] Blood manual differential co mment interpretation (narrative result)Ordered By: Dr. Kerr on 01-16-2023 Manual differential comment Joey (Bld) [Interp] SCANNED [facility] Blood monocytes/100 leukocyt esOrdered By: Dr. Kerr on 01-16-2023 Monocytes/100 WBC (Bld) 9.5 % 0-10 [facility] Blood or tissue coagulation factor II targeted mutation analysis by molecular geneticOrdered By: Dr. Ko on 01-16-2023 F2 gene targeted mutation analysis [employer] Nom (Bld/Tiss) Comment . [facility] Comment on above: Result: c.*97G>A - N ot DetectedThis result is not associated with an increased risk for venousthromboembolism. See Additional Clinical Information andComments.Additional Clinical Information:Venous thromboembolism is a multifactorial disease influenced bygenetic, environmental, and circumstantial risk factors. The c.*97G>Avariant in the F2 gene is a genetic risk factor for venousthromboembolism. Heterozygous carriers have a 2- to 4-fold increasedrisk for venous thromboembolism. Homozygotes for the c.*97G>A variantare rare. The annual risk of VTE in homozygotes has been reported amber 1.1%/year. Individuals who carry both a c.*97G>A variant in theF2 gene and a c.1601G>A (p. [id number]) variant in the F5 gene(commonly referred to as Factor V Leiden) have an approximately 20-fold increased risk for venous thromboembolism. Risks are likely amber even higher in more complex genotype combinations involving theF2 c.*97G>A variant and Factor V Leiden (PMID: 15311903). Additionalrisk factors include but are not limited to: deficiency of protein C,protein S, or antithrombin III, age, male sex, personal or familyhistory of deep vein thromboembolism, smoking, surgery, prolongedimmobilization, malignant neoplasm, tamoxifen treatment, raloxifenetreatment, oral contraceptive use, hormone replacement therapy, andpregnancy. Management of thrombotic risk and thrombotic events shouldfollow established guidelines and fit the clinical circumstance. Thisresult cannot predict the occurrence or recurrence of a thromboticevent.Comments:Genetic counseling is recommended to discuss the potential clinicalimplications of positive results, as well as recommendations fortesting family members.Genetic Coordinators are available for health care providers to discussresults at [phone] ([phone] Details:Variant analyzed: c.*97G>A, previously referred to as [id number]/Limitations:DNA analysis of the F2 gene (NM_000506.5) was performed by PCRamplification followed by restriction enzyme analysis. The diagnosticsensitivity is >99%. Results must be combined with clinicalinformation for the most accurate interpretation. Molecular-basedtesting is highly accurate, but as in any laboratory test, diagnosticerrors may occur. False positive or false negative results may occurfor reasons that include genetic variants, blood transfusions, bonemarrow transplantation, somatic or tissue-specific mosaicism,mislabeled samples, or erroneous representation of familyrelationships.This test was developed and its performance characteristics determinedby [employer]. It has not been cleared or approved by the Food and DrugAdministration.References:Leigh Ann S, Darline AK, Piyush R, Margarito WW, Aristides JH; [facility] ProfessionalPractice and Guidelines Committee. Addendum: [employer] consensus statement on factor V Leiden mutationtesting. Rody Med. 2020Dec 25. doi: 10.1038/[id number]-y.PMID: 53523181.Concepción HARVEY. Prothrombin Thrombophilia. 2005May 16[Updated 2020Nov 26]. In: Ayan MP, Zachariah HH, Manda RA, et al.,editors. Nathan(R) [Internet]. [place] ([place]): [facility]; 1549-6653. Available from:https://www.ncbi.nlm.nih.gov/books/SGU6025/Bari S, Darline AK, Ron X, Alfredo B, Higinio EB, Tonie P, Jenniffer CS;[facility] Laboratory Dietitian Assistant Committee. Venous thromboembolismlaboratory testing (factor V Leiden and factor II c.*97G>A),2018 update: a technical standard of the [employer] MedicalGenetics and Genomics (ACMG). Rody Med. 2017;20(12):6171-2679.doi: 10.1038/[id number]-h. Epub 2017Jul 27. PMID: 98306246.Breonna Herrera, PhD, Sanjuanita Braun, PhDBrady Millan, PhD, Faina Martini, PhD, Bobbi Wagner, PhD, STEPHANIE Black, PhD, Marilee Whatley, PhD, Stevo Lott, PhD, FACMGPerformed at: [facility] LabSoloLearnVirtua [facility]our[facility] Medical CenterLgzgodefpa[address] [place], [place] [id number] Director: Eligio Cortés MD, Phone: [phone] at: [facility] [id number] [place], [place] [id number] Director: Kade Finney [facility], Phone: [phone] Blood platelet adequacy dete ction by light microscopyOrdered By: Dr. Kerr on 01-16-2023 Platelets LM Ql (Bld) MKD DEC ADEQ [facility] Blood platelet mean volumeOr dered By: Dr. Kerr on 01-16-2023 Platelet mean volume (Bld) [Entitic vol] 12.5 fL 6.2-12.0 [facility] COVID-19 virus antigen assay Ordered By: Dr. Ko on 01-16-2023 SARS-CoV-2 (COVID-19) Ag IA.rapid Ql (Resp) [facility] Determination of erythrocyte mean corpuscular volume (MCV)Ordered By: Dr. Kerr on 01-16-2023 MCV (RBC) [Entitic vol] 87.3 fL 80-94 [facility] Functional protein C measure mentOrdered By: Dr. Ko on 01-16-2023 Protein C actual/normal Chromogenic method (PPP) [Rel catalytic activity/Vol] 110 % 73-180 [facility] Protein C actual/normal Chromogenic method (PPP) [Rel catalytic activity/Vol] Not Reportable [facility] Hematocrit Auto (Bld) [Volum e fraction]Ordered By: Dr. Kerr on 01-16-2023 Hematocrit (Bld) [Volume fraction] 41.4 % 40-54 [facility] INR in Blood by Coagulation assayOrdered By: Dr. Ko on 01-16-2023 INR Coag (Bld) [Relative time] 1.1 {INR} [facility] Laboratory - Chemistry and C hemistry - challengeOrdered By: Dr. Kerr on 01-16-2023 CO2 [Moles/Vol] 23.0 mmol/L 21.0-32.0 [facility] Urea nitrogen/Creatinine [Mass ratio] 14.7 mg/mg 10-20 [facility] Laboratory - CoagulationOrde red By: Dr. Ko on 01-16-2023 PT Coag (PPP) [Time] 13.9 s 11.7-14.9 [facility] - Hematology and Cell countsOrdered By: Dr. Kerr on 01-16-2023 Erythrocyte distribution width (RBC) [Entitic vol] 47.7 fL 35.1-43.9 [facility] Erythrocyte distribution width (RBC) [Ratio] 15.2 % 11.6-14.6 [facility] Immature granulocytes/100 WBC (Bld) 1.100 % 0.0-0.9 [facility] Comment on above: IG% - Immature Granu locytes (promyelocytes, myelocytes and metamyelocytes) > 1% indicates that a LEFT SHIFT is Present. MCH (RBC) [Entitic mass] 29.1 pg 27.0-32.0 [facility] Nucleated RBC/100 WBC (Bld) [Ratio] 0 % 0-5 [facility] MCHC Auto (RBC) [Mass/Vol]Or dered By: Dr. Kerr on 01-16-2023 MCHC (RBC) [Mass/Vol] 33.3 g/dL 32-36 [facility] No Panel InformationOrdered By: Dr. Ko on 01-16-2023 Miscellaneous Test See comment [facility] Comment on above: TEST RESULT LIMITSDi lute [employer] Venom DRVVT Screen Seconds 40.5 sec Reference Range: <= 47.0 DRVVT Confirm Seconds Testing Not Indicated DRVVT Ratio Testing Not Indicated ___ TESTING PERFORMED AT [facility]. ORIGINAL REPORT ON FILE IN LAB CONTAINS ADDITIONAL TEST SITE INFORMATION. Anti-Cardiolipin IgM Antibody < 9 MPL U/mL 0-12 [facility] Comment on above: Negative: <13 Indete rminate: 13 - 20 Low-Med Positive: >20 - 80 High Positive: >80 Factor V Leiden Mutation Comment . [facility] Comment on above: Result: c.1601G>A (p .[id number]) - Not DetectedThis result is not associated with an increased risk for venousthromboembolism. See Additional Clinical Information andComments.Additional Clinical Information:Venous thromboembolism is a multifactorial diseaseinfluenced by genetic, environmental, and circumstantialrisk factors. The c.1601G>A (p. [id number]) variant in theF5 gene, commonly referred to as Factor V Leiden, is agenetic risk factor for venous thromboembolism.Heterozygous carriers of this variant have a 6- to 8-foldincreased risk for venous thromboembolism. Individualshomozygous for this variant (ie, with a copy of the varianton each chromosome) have an approximately 80-fold increasedrisk for venous thromboembolism. Individuals who carry julia c.*97G>A variant in the F2 gene and Factor V Leiden havean approximately 20-fold increased risk for venousthromboembolism. Risks are likely to be even higher in morecomplex genotype combinations involving the F2 c.*97G>Avariant and Factor V Leiden (PMID: [id number]). Additionalrisk factors include but are not limited to: deficiency ofprotein C, protein S, or antithrombin III, age, male sex,personal or family history of deep vein thromboembolism,smoking, surgery, prolonged immobilization, malignantneoplasm, tamoxifen treatment, raloxifene treatment, oralcontraceptive use, hormone replacement therapy, andpregnancy. Management of thrombotic risk and thromboticevents should follow established guidelines and fit theclinical circumstance. This result cannot predict theoccurrence or recurrence of a thrombotic event.Comment:Genetic counseling is recommended to discuss thepotential clinical implications of positive results, aswell as recommendations for testing family members.Genetic Coordinators are available for health careproviders to discuss results at [phone] Details:Variant Analyzed: c.1601G>A (p. [id number]), referred toas Factor V LeidenMethods/Limitations:DNA analysis of the F5 gene (NM_000130.5) was performedby PCR amplification followed by restriction enzymeanalysis. The diagnostic sensitivity is >99%. Results mustbe combined with clinical information for the most accurateinterpretation. Molecular-based testing is highly accurate,but as in any laboratory test, diagnostic errors may occur.False positive or false negative results may occur forreasons that include genetic variants, blood transfusions,bone marrow transplantation, somatic or tissue-specificmosaicism, mislabeled samples, or erroneous representationof family relationships.This test was developed and its performance characteristicsdetermined by [employer]. It has not been cleared orapproved by the Food and Drug Administration.References:Leigh Ann S, Darline AK, Piyush R, Margarito WW, Aristides JH; [facility] Practice and Guidelines Committee. Addendum:[employer] consensus statement onfactor V Leiden mutation testing. Rody Med. 2020Dec 25.doi: 10.1038/[id number]-u. PMID: 34083844.Concepción HARVEY. Factor V Leiden Thrombophilia. 1998March 05(Updated 2017Oct 26). In: Ayan MP, Zachariah HH, Manda RA,et al., editors. Nathan(Alisa) (Internet). [place]):[facility]; 2301-5559. Availablefrom: https://www.ncbi.nlm.nih.gov/books/YRX2290/Bari S, Darline AK, Ron X, Alfredo B, Higinio EB, Tonie P,Jenniffer CS; [facility] Laboratory Dietitian Assistant Committee.Venous thromboembolism laboratory testing (factor V Leidenand factor II c.*97G>A), 2018 update: a technical standardof the [employer] College of [employer] Genetics and Genomics(ACMG). Rody Med. 2017;20(12):4644-5508. doi:10.1038/[id number]-i. Epub 2017Jul 27. PMID: 04934473.Breonna Herrera, PhD, Sanjuanita Braun, PhDBrady Millan, PhD, Faina Martini, PhD, Bobbi Wagner, PhD, FACTOVA Black, PhD, Marilee Whatley, PhD, Stevo Lott, PhD, FACMGPerformed at: [facility] [employer] [id number] Director: Eilgio Cortés MD, Phone: [phone] at: [facility] [employer] [address] [id number] Director: Romeo Hatfield PhD, Phone: [phone] at: [facility] [employer] [id number] [place], [place] [id number] Director: Kade Finney [facility], Phone: [phone] No Panel InformationOrdered By: Dr. Kerr on 01-16-2023 D-Dimer Quantitative (PE/DVT) > 20.00 FEU/ug/m 0.27-0.49 [facility] Comment on above: D-Dimer ELEVATED (>0 .49): Additional studies and clinicalassessments are indicated to conclude diagnosis of:Deep Vein Thrombosis (DVT) or Pulmonary Embolism (PE)CRITICAL VALUE VERIFIED. CALLED TO LUIZ UNDERWOOD01/16/23 1205 Alex Penn.RESULTS READ BACK BY SAME . Estimated Creatinine Clearance Calc 58.48 ml/min [facility] Estimated GFR (MDRD) Amer 71 mL/min >60 [facility] Comment on above: GFR Calc Estimated GFR (MDRD) Non-Af Amer 58 mL/min >60 [facility] Comment on above: Non- GFR Calc Troponin I High Sensitivity 63 pg/mL 3.0-78.0 [facility] Comment on above: Please Note: New Dee t Units and Gender Specific Reference Ranges. For more information see Policy Stat Procedure [place] High Sensitivity Troponin (TNIH) and attachments. Platelet poor plasma antithr ombin actual/normal ratio by chromogenic method (relativeOrdered By: Dr. Ko on 01-16-2023 Antithrombin actual/normal Chromogenic method (PPP) [Rel catalytic activity/Vol] 128 % 75-135 [facility] Comment on above: Direct Xa inhibitor anticoagulants such as rivaroxaban,apixaban and edoxaban will lead to spuriously elevatedantithrombin activity levels possibly masking a deficiency. Platelets bldOrdered By: Dr. Kerr on 01-16-2023 Platelets (Bld) [#/Vol] 67 10*3/uL 150-450 [facility] Protein C antigen assayOrder ed By: Dr. Ko on 01-16-2023 Protein C Ag actual/normal IA (PPP) [Relative mass conc] 80 % 60-150 [facility] Serum beta 2 glycoprotein 1 IgA antibody detectionOrdered By: Dr. Ko on 01-16-2023 Beta 2 glycoprotein 1 IgA Ql (S) 9 0-25 [facility] Comment on above: Result Units: GPI Ig A unitsThe reference interval reflects a 3SD or 99th percentileinterval, which is thought to represent a potentiallyclinically significant result in accordance with theInternational Consensus Statement on the classificationcriteria for definitive antiphospholipid syndrome (APS). JThromb Haem 2006;4:295-306. Serum beta 2 glycoprotein 1 IgG antibody detectionOrdered By: Dr. Ko on 01-16-2023 Beta 2 glycoprotein 1 IgG Ql (S) <9 0-20 [facility] Comment on above: Result Units: GPI Ig G unitsThe reference interval reflects a 3SD or 99th percentileinterval, which is thought to represent a potentiallyclinically significant result in accordance with theInternational Consensus Statement on the classificationcriteria for definitive antiphospholipid syndrome (APS). JThromb Haem 2006;4:295-306. Serum beta 2 glycoprotein 1 IgM antibody detectionOrdered By: Dr. Ko on 01-16-2023 Beta 2 glycoprotein 1 IgM Ql (S) <9 0-32 [facility] Comment on above: Result Units: GPI Ig M unitsThe reference interval reflects a 3SD or 99th percentileinterval, which is thought to represent a potentiallyclinically significant result in accordance with theInternational Consensus Statement on the classificationcriteria for definitive antiphospholipid syndrome (APS). JThromb Haem 2006;4:295-306. Serum cardiolipin IgG antibo dy assay by immunoassay (units/volume)Ordered By: Dr. Ko on 01-16-2023 Cardiolipin IgG IA Qn (S) < 9 GPL U/mL 0-14 [facility] Comment on above: Negative: <15 Indete rminate: 15 - 20 Low-Med Positive: >20 - 80 High Positive: >80 Serum or plasma calcium matt urement (mass/volume)Ordered By: Dr. Kerr on 01-16-2023 Calcium [Mass/Vol] 8.6 mg/dL 8.5-10.1 [facility] Serum or plasma creatinine m easurement (mass/volume)Ordered By: Dr. Kerr on 01-16-2023 Creatinine [Mass/Vol] 1.29 mg/dL 0.70-1.30 [facility] Comment on above: The validity of the calculated GFR & GFRAA in patients over 70 years has not been determined. Clinical correlation is essential. Serum or plasma urea nitroge n measurement (mass/volume)Ordered By: Dr. Kerr on 01-16-2023 Urea nitrogen [Mass/Vol] 19 mg/dL 7-18 [facility] Thin prep Papanicolaou smear with manual screeningOrdered By: Dr. Kerr on 01-16-2023 Thin prep Papanicolaou smear with manual screening 4 5-15 [facility] No Panel Informationon 12-06 [facility] B2 MICROGLOBULIN Bon 023 Mojy-[id number]-Jdqiwkvxopjpb [Mass/Vol] 2.3 ug/mL <3.1 mg/L [facility] CBC W Auto Differential pane l (Bld)on 10-26-2022 Basophils (Bld) [#/Vol] 0.03 10*3/uL <0.11 k/uL [facility] Basophils/100 WBC (Bld) 0.4 % [facility] Differential cell count method Nom (Bld) Auto [facility] Eosinophils (Bld) [#/Vol] 0.19 10*3/uL <0.46 k/uL [facility] Eosinophils/100 WBC (Bld) 2.7 % [facility] Erythrocyte distribution width (RBC) [Ratio] 14.0 % 11.5 - 15.0 % [facility] Hematocrit (Bld) [Volume fraction] 45.3 % 39.0 - 51.0 % [facility] Hemoglobin (Bld) [Mass/Vol] 15.1 g/dL 13.0 - 17.0 g/dL [facility] Immature granulocytes (Bld) [#/Vol] 0.04 10*3/uL <0.10 k/uL [facility] Immature granulocytes/100 WBC (Bld) 0.6 % [facility] Lymphocytes (Bld) [#/Vol] 2.01 10*3/uL 1.00 - 4.00 k/uL [facility] Lymphocytes/100 WBC (Bld) 28.5 % [facility] MCH (RBC) [Entitic mass] 28.8 pg 26.0 - 34.0 pg [facility] MCHC (RBC) [Mass/Vol] 33.3 g/dL 30.5 - 36.0 g/dL [facility] MCV (RBC) [Entitic vol] 86.5 fL 80.0 - [facility] Monocytes (Bld) [#/Vol] 0.66 10*3/uL <0.87 k/uL [facility] Monocytes/100 WBC (Bld) 9.3 % [facility] Neutrophils (Bld) [#/Vol] 4.13 10*3/uL 1.45 - 7.50 k/uL [facility] Neutrophils/100 WBC (Bld) 58.5 % [facility] Nucleated RBC (Bld) [#/Vol] <0.01 k/uL [facility] Nucleated RBC/100 WBC (Bld) [Ratio] 0.0 /100 WBC [facility] Platelet mean volume (Bld) [Entitic vol] 9.7 fL 9.0 - 12.7 fL [facility] Platelets (Bld) [#/Vol] 237 10*3/uL 150 - 400 k/uL [facility] RBC (Bld) [#/Vol] 5.24 10*6/uL 4.20 - 6.0 0 m/uL [facility] WBC (Bld) [#/Vol] 7.06 10*3/uL 3.70 - 11.00 k/uL [facility] Comprehensive metabolic 2000 panelon 10-26-2022 Albumin [Mass/Vol] 4.4 g/dL 3.9 - 4.9 g/dL [facility] ALP [Catalytic activity/Vol] 67 U/L 38 - 113 U/L [facility] ALT [Catalytic activity/Vol] 13 U/L 10 - 54 U/L [facility] Anion gap [Moles/Vol] 9 mmol/L 9 - 18 mmol/L [facility] AST [Catalytic activity/Vol] 18 U/L 14 - 40 U/L [facility] Bilirubin [Mass/Vol] 0.6 mg/dL 0.2 - 1 .3 mg/dL [facility] Calcium [Mass/Vol] 9.5 mg/dL 8.5 - 10. 2 mg/dL [facility] Chloride [Moles/Vol] 105 mmol/L 97 - 10 5 mmol/L [facility] CO2 [Moles/Vol] 23 mmol/L 22 - 30 mmol/L [facility] Creatinine [Mass/Vol] 1.13 mg/dL 0.73 - 1.22 mg/dL [facility] Estimated Glomerular Filtration Rate 70 mL/min/1.73m >=60 mL/min/1.73 m [facility] Glucose [Mass/Vol] 118 mg/dL High 74 - 99 mg/dL [facility] Potassium [Moles/Vol] 4.0 mmol/L 3.7 - 5.1 mmol/L [facility] Protein [Mass/Vol] 8.1 g/dL High 6.3 - 8.0 g/dL [facility] Sodium [Moles/Vol] 137 mmol/L 136 - 144 mmol/L [facility] Urea nitrogen [Mass/Vol] 20 mg/dL 9 - 24 mg/dL [facility] VITAMIN D 25 HYDROXYon 10-26 25-hydroxyvitamin D3 [Mass/Vol] 37.7 ng/mL 31.0 - 80.0 ng/mL [facility] No Panel Informationon 10-06 [facility] EP PanelOrdered By: Leno Quigley on 09-21-2022 Gastrointestinal pathogens panel KEVIN+probe (Stl) [facility] Glucose Glucometer (BldC) [M ass/Vol]Ordered By: Leno Quigley on 09-21-2022 Glucose [Mass/Vol] 144 mg/dL 74-106 [facility] Comment on above: MANAGEMENT OF PATIEN T CARE PER NURSING PROTOCOL MRI LIVER WO/W IVCONon 09-01 [facility] WHOLE BODY SKULL TO KNEE WO IVCONon 08-11-2022 Radiology Result ACTION[facility] CBC W Auto Differential pane l (Bld)on 08-08-2022 Basophils (Bld) [#/Vol] 0.03 10*3/uL <0.11 k/uL [facility] Basophils/100 WBC (Bld) 0.5 % [facility] Differential cell count method Nom (Bld) Auto [facility] Eosinophils (Bld) [#/Vol] 0.11 10*3/uL <0.46 k/uL [facility] Eosinophils/100 WBC (Bld) 1.8 % [facility] Erythrocyte distribution width (RBC) [Ratio] 12.9 % 11.5 - 15.0 % [facility] Hematocrit (Bld) [Volume fraction] 44.2 % 39.0 - 51.0 % [facility] Hemoglobin (Bld) [Mass/Vol] 14.7 g/dL 13.0 - 17.0 g/dL [facility] Immature granulocytes (Bld) [#/Vol] <0.10 k/uL [facility] Immature granulocytes/100 WBC (Bld) 0.3 % [facility] Lymphocytes (Bld) [#/Vol] 1.35 10*3/uL 1.00 - 4.00 k/uL [facility] Lymphocytes/100 WBC (Bld) 21.8 % [facility] MCH (RBC) [Entitic mass] 29.0 pg 26.0 - 34.0 pg [facility] MCHC (RBC) [Mass/Vol] 33.3 g/dL 30.5 - 36.0 g/dL [facility] MCV (RBC) [Entitic vol] 87.2 fL 80.0 - 100.0 fL [facility] Monocytes (Bld) [#/Vol] 0.50 10*3/uL <0.87 k/uL [facility] Monocytes/100 WBC (Bld) 8.1 % [facility] Neutrophils (Bld) [#/Vol] 4.17 10*3/uL 1.45 - 7.50 k/uL [facility] Neutrophils/100 WBC (Bld) 67.5 % [facility] Nucleated RBC (Bld) [#/Vol] <0.01 k/uL [facility] Nucleated RBC/100 WBC (Bld) [Ratio] 0.0 /100 WBC [facility] Platelet mean volume (Bld) [Entitic vol] 9.7 fL 9.0 - 12.7 fL [facility] Platelets (Bld) [#/Vol] 278 10*3/uL 150 - 400 k/uL [facility] RBC (Bld) [#/Vol] 5.07 10*6/uL 4.20 - 6.0 0 m/uL [facility] WBC (Bld) [#/Vol] 6.18 10*3/uL 3.70 - 11.00 k/uL [facility] Comprehensive metabolic 2000 panelon 08-08-2022 Albumin [Mass/Vol] 4.5 g/dL 3.9 - 4.9 g/dL [facility] ALP [Catalytic activity/Vol] 67 U/L 38 - 113 U/L [facility] ALT [Catalytic activity/Vol] 10 U/L 10 - 54 U/L [facility] Anion gap [Moles/Vol] 13 mmol/L 9 - 18 mmol/L [facility] AST [Catalytic activity/Vol] 18 U/L 14 - 40 U/L [facility] Bilirubin [Mass/Vol] 0.9 mg/dL 0.2 - 1 .3 mg/dL [facility] Calcium [Mass/Vol] 9.6 mg/dL 8.5 - 10. 2 mg/dL [facility] Chloride [Moles/Vol] 103 mmol/L 97 - 10 5 mmol/L [facility] CO2 [Moles/Vol] 23 mmol/L 22 - 30 mmol/L [facility] Creatinine [Mass/Vol] 1.18 mg/dL 0.73 - 1.22 mg/dL [facility] Estimated Glomerular Filtration Rate 66 mL/min/1.73m >=60 mL/min/1.73 m [facility] Glucose [Mass/Vol] 126 mg/dL High 74 - 99 mg/dL [facility] Potassium [Moles/Vol] 4.1 mmol/L 3.7 - 5.1 mmol/L [facility] Protein [Mass/Vol] 8.3 g/dL High 6.3 - 8.0 g/dL [facility] Sodium [Moles/Vol] 139 mmol/L 136 - 144 mmol/L [facility] Urea nitrogen [Mass/Vol] 16 mg/dL 9 - 24 mg/dL [facility] LD LACTATE DEHYDROon 022 LDH [Catalytic activity/Vol] 217 U/L 135 - 225 U/L [facility] URIC ACID BLOODon 08-08-2022 Urate [Mass/Vol] 5.4 mg/dL 4.0 - 8.1 mg/dL [facility] Absolute lymphocyte counton 07-11-2022 Lymphocytes Auto (Unsp spec) [#/Vol] 1.53 10*3/uL 0.83-4.51 [facility] Work Phone: Albumin Elph [Mass/Vol]on Albumin [Mass/Vol] 3.9 g/dL 2.9-4.4 [facility] Work Phone: Atypical perinuclear antineu trophil cytoplasmic antibodies measurementon 07-11-2022 Neutrophil cytoplasmic Ab.perinuclear.atypica l IF (S) [Titer] <1:20 titer Neg:<1:20 [facility] Work Phone: Comment on above: The atypical pANCA p attern has been observed in asignificant percentage of patients with ulcerative colitis,primary sclerosing cholangitis and autoimmune hepatitis. Basophil percentageon 2021 Basophils/100 WBC (Bld) 0.5 % 0-1 [facility] Work Phone: Bilirubin [Mass/Vol] 0.60 mg/dL 0.20-1.00 [facility] Work Phone: Comment on above: For patients on eltr ombopag therapy, use of Dimension [place] TBIL is not recommended. Chloride [Moles/Vol] 107 mmol/L 98-107 [facility] Work Phone: Eosinophils/100 WBC (Bld) 2.8 % 0-5 [facility] Work Phone: Glucose [Mass/Vol] 122 mg/dL 74-106 [facility] Work Phone: Comment on above: Fasting Glucose resu lt from 100 to 125 mg/dL suggests IMPAIRED HOMEOSTASIS per A.D.A. criteria. Neutrophils (Bld) [#/Vol] 4.0 10*3/uL 2.0-7.7 [facility] Work Phone: Neutrophils/100 WBC (Bld) 63.5 % 47-70 [facility] Work Phone: Potassium [Moles/Vol] 4.0 mmol/L 3.5-5.1 [facility] Work Phone: Protein [Mass/Vol] 8.8 g/dL 6.4-8.2 [facility] Work Phone: Sodium [Moles/Vol] 140 mmol/L 136-145 [facility] Work Phone: WBC (Bld) [#/Vol] 6.4 10*3/uL 4.4-11.0 [facility] Work Phone: Blood erythrocytes count (nu mber/volume)on 07-11-2022 RBC (Bld) [#/Vol] 5.01 10*6/uL 4.6-6.2 [facility] Work Phone: Blood hemoglobin measurement (mass/volume)on 07-11-2022 Hemoglobin (Bld) [Mass/Vol] 14.9 g/dL 13.0-16.5 [facility] Work Phone: Blood lymphocytes/100 leukoc yteson 07-11-2022 Lymphocytes/100 WBC (Bld) 24.1 % 19-41 [facility] Work Phone: Blood monocytes/100 leukocyt eson 07-11-2022 Monocytes/100 WBC (Bld) 8.8 % 0-10 [facility] Work Phone: Blood platelet mean volumeon 07-11-2022 Platelet mean volume (Bld) [Entitic vol] 10.8 fL 6.2-12.0 [facility] Work Phone: Determination of erythrocyte mean corpuscular volume (MCV)on 07-11-2022 MCV (RBC) [Entitic vol] 90.0 fL 80-94 [facility] Work Phone: Erythrocyte sedimentation ra gonzalo 07-11-2022 ESR (Bld) [Velocity] 33 mm/h 0-20 [facility]: Hematocrit Auto (Bld) [Volum e fraction]on 07-11-2022 Hematocrit (Bld) [Volume fraction] 45.1 % 40-54 [facility] Work Phone: Interpretation of serum or p lasma protein pattern by immunofixation (narrative resulton 07-11-2022 Protein Fractions Immunofixation Joey [Interp] See comment [facility] Work Phone: Comment on above: MONOCLONAL IGG LAMBD A #1 = 1.2 G/DLMONOCLONAL IGG LAMBDA #2 = 0.6 G/DL Laboratory - Chemistry and C hemistry - challengeon 07-11-2022 ALP [Catalytic activity/Vol] 63 U/L 45-117 [facility] Work Phone: ALT [Catalytic activity/Vol] 17 U/L 16-61 [facility] Work Phone: CO2 [Moles/Vol] 26.0 mmol/L 21.0-32.0 [facility] Work Phone: Cobalamin (Vitamin B12) [Mass/Vol] 332 pg/mL 211-911 [facility] Work Phone: Urea nitrogen/Creatinine [Mass ratio] 12.4 mg/mg 10-20 [facility] Work Phone: Laboratory - Hematology and Cell countson 07-11-2022 Erythrocyte distribution width (RBC) [Entitic vol] 42.8 fL 35.1-43.9 [facility] Work Phone: Erythrocyte distribution width (RBC) [Ratio] 13.1 % 11.6-14.6 [facility] Work Phone: Immature granulocytes/100 WBC (Bld) 0.300 % 0.0-0.9 [facility] Work Phone: Comment on above: IG% - Immature Granu locytes (promyelocytes, myelocytes and metamyelocytes) > 1% indicates that a LEFT SHIFT is Present. MCH (RBC) [Entitic mass] 29.7 pg 27.0-32.0 [facility] Work Phone: Nucleated RBC/100 WBC (Bld) [Ratio] 0 % 0-5 [facility] Work Phone: MCHC Auto (RBC) [Mass/Vol]on 07-11-2022 MCHC (RBC) [Mass/Vol] 33.0 g/dL 32-36 [facility] Work Phone: No Panel Informationon 07-11 Stool Calprotectin 40 ug/g 0-120 [facility] Work Phone: Comment on above: Concentration Interp retation Follow-Up<16 - 50 ug/g Normal None>50 -120 ug/g Borderline Re-evaluate in 4-6 weeks >120 ug/g Abnormal Repeat as clinically indicatedPerformed at: [facility] [address] [id number] Director: Romeo Hatfield PhD, Phone: [phone] at: [facility] [address] [id number] Director: Eligio Cortés MD, Phone: [phone] Stool Neutral Fats Normal . [facility] Work Phone: Comment on above: Normal (<60 Droplets /HPF) Stool Pancreatic Elastase 144 >200 [facility] Work Phone: Comment on above: Result Units: ug [address]ash[address] st./g Severe Pancreatic Insufficiency: <100 Moderate Pancreatic Insufficiency: 100 - 200 Normal: >200Performed at: [facility] [address] [id number] Director: Eligio Cortés MD, Phone: [phone] Addendum Document Comment . [facility] Work Phone: Comment on above: Protein electrophore sis scan will follow via computer,mail, or equine internship delivery. Endomysial IgA Antibody Negative Negative [facility] Work Phone: Estimated GFR (MDRD) Amer 71 mL/min >60 [facility] Work Phone: Comment on above: GFR Calc Estimated GFR (MDRD) Non-Af Amer 59 mL/min >60 [facility] Work Phone: Comment on above: Non- GFR Calc Immunoglobulin E 3 IU/mL 6-495 [facility] Work Phone: Comment on above: Performed at: [address] [id number] Director: Romeo Hatfield PhD, Phone: [phone] at: [facility] [address] [id number] Director: Eligio Cortés MD, Phone: [phone] Thyroid Stimulating Hormone (TSH) 2.29 uIU/mL 0.358-3.74 [facility] Work Phone: Platelets bldon 07-11-2022 Platelets (Bld) [#/Vol] 275 10*3/uL 150-450 [facility] Work Phone: Qualitative fecal fat or lip idson 07-11-2022 Fat Ql (Stl) Normal . [facility] Work Phone: Comment on above: Normal (<100 Droplet s/HPF) Serum [id number] measu rement by electrophoresison 07-11-2022 Alpha 1 globulin Elph [Mass/Vol] 0.3 g/dL 0.0-0.4 [facility] Work Phone: Alpha 1 globulin Elph [Mass/Vol] 0.8 g/dL 0.4-1.0 [facility] Work Phone: Serum classic neutrophil cyt oplasmic antibody assay (units/volume)on 07-11-2022 Neutrophil cytoplasmic Ab.classic Qn (S) <1:20 titer Neg:<1:20 [facility] Work Phone: Serum globulin measurement ( mass/volume)on 07-11-2022 Globulin (S) [Mass/Vol] 4.1 g/dL 2.2-3.9 [facility] Work Phone: Serum or plasma C reactive p rotein measurement (mass/volume)on 07-11-2022 CRP [Mass/Vol] mg/L 0.0-3.0 [facility] Work Phone: Comment on above: C-Reactive Protein ( CRP) provides useful information for thediagnosis, therapy and monitoring of inflammatory processesand associated diseases. For the evaluation of Relative Riskfor Cardiovascular Disease, a High Sensitivity CRP (HSCRP)should be ordered. Serum or plasma IgA measurem ent (mass/volume)on 07-11-2022 IgA [Mass/Vol] 30 mg/dL 61-437 [facility] Work Phone: Comment on above: Result confirmed on concentration. Serum or plasma IgG measurem ent (mass/volume)on 07-11-2022 IgG [Mass/Vol] 2462 mg/dL 603-1613 [facility] Work Phone: Serum or plasma IgM measurem ent (mass/volume)on 07-11-2022 IgM [Mass/Vol] 32 mg/dL 20-172 [facility] Work Phone: Serum or plasma albumin matt urement (mass/volume)on 07-11-2022 Albumin [Mass/Vol] 3.8 g/dL 3.2-5.0 [facility] Work Phone: Serum or plasma albumin/glob ulin mass ratioon 07-11-2022 Albumin/Globulin [Mass ratio] 0.8 {ratio} 0.9-2.4 [facility] Work Phone: Serum or plasma beta globuli n measurement by electrophoresis (mass/volume)on 07-11-2022 Beta globulin Elph [Mass/Vol] 1.0 g/dL 0.7-1.3 [facility] Work Phone: Serum or plasma calcium matt urement (mass/volume)on 07-11-2022 Calcium [Mass/Vol] 9.3 mg/dL 8.5-10.1 [facility] Work Phone: Serum or plasma creatinine m easurement (mass/volume)on 07-11-2022 Creatinine [Mass/Vol] 1.29 mg/dL 0.70-1.30 [facility] Work Phone: Comment on above: The validity of the calculated GFR & GFRAA in patients over 70 years has not been determined. Clinical correlation is essential. Serum or plasma gamma globul in measurement by electrophoresis (mass/volume)on 07-11-2022 Gamma globulin Elph [Mass/Vol] 2.1 g/dL 0.4-1.8 [facility] Work Phone: Serum or plasma immunoelectr ophoresis interpretation (nominal result)on 07-11-2022 Interpretation IEP [Interp] Comment . [facility] Work Phone: Comment on above: Immunofixation shows a biclonal IgG protein with lambdaspecificity. Serum or plasma urea nitroge n measurement (mass/volume)on 07-11-2022 Urea nitrogen [Mass/Vol] 16 mg/dL 7-18 [facility] Work Phone: Serum perinuclear neutrophil cytoplasmic antibody titer by immunofluorescenceon 07-11-2022 Neutrophil cytoplasmic Ab.perinuclear IF (S) [Titer] <1:20 titer Neg:<1:20 [facility] Work Phone: Comment on above: The presence of posi tive fluorescence exhibiting P-ANCA orC-ANCA patterns alone is not specific for the diagnosis ofWegener's Granulomatosis (WG) or microscopic polyangiitis.Decisions about treatment should not be based solely onANCA IFA results. The International ANCA Group Consensusrecommends follow up testing of positive sera with both TN-3 and MPO-ANCA enzyme immunoassays. As many as 5% serumsamples are positive only by EIA. Ref. AM J Clin Guwfar9392;111:507-513. Serum tissue transglutaminas e IgA antibody assay (units/volume)on 07-11-2022 tTG IgA Qn (S) <2 U/mL 0-3 [facility] Work Phone: Comment on above: Negative 0 - 3 Weak Positive 4 - 10 Positive >10 Tissue Transglutaminase (tTG) has been identified as the endomysial antigen. Studies have demonstr- ated that endomysial IgA antibodies have over 99% specificity for gluten sensitive enteropathy. Thin prep Papanicolaou smear with manual screeningon 07-11-2022 Thin prep Papanicolaou smear with manual screening 18 U/L 15-37 [facility] Work Phone: Thin prep Papanicolaou smear with manual screening 7 5-15 [facility] Work Phone: Thin prep Papanicolaou smear with manual screening 181 U/L 87-241 [facility] Work Phone: Thin prep Papanicolaou smear with manual screening 1.0 0.7-1.7 [facility] Work Phone: Total protein bloodon 2021 Protein [Mass/Vol] 8.0 g/dL 6.0-8.5 [facility] Work Phone: Basophil percentageon 2021 Chloride [Moles/Vol] 107 mmol/L 98-107 [facility] Work Phone: Cholesterol [Mass/Vol] 135 mg/dL <200 [facility] Work Phone: Comment on above: <200 mg/dL Desirable 200-240 mg/dL Borderline >240 mg/dL High Risk Glucose [Mass/Vol] 74 mg/dL 74-106 [facility] Work Phone: Potassium [Moles/Vol] 4.6 mmol/L 3.5-5.1 [facility] Work [facility]: Sodium [Moles/Vol] 139 mmol/L 136-145 [facility] Work Phone: Triglyceride [Mass/Vol] 115 mg/dL <199 [facility] Work Phone: Comment on above: The drugs N-Acetylcy steine and Metamizole may falsely depress this assay.Serum Triglycerides Reference Interval Normal <150 mg/dL Borderline high 150 - 199 mg/dL High 200 - 499 mg/dL Very High > or = 500 mg/dL Laboratory - Chemistry and C hemistry - challengeon 04-27-2022 CO2 [Moles/Vol] 26.0 mmol/L 21.0-32.0 [facility] Work Phone: Urea nitrogen/Creatinine [Mass ratio] 10.6 mg/mg 10-20 [facility] Work Phone: No Panel Informationon 04-27 Estimated GFR (MDRD) Amer 83 mL/min >60 [facility] Work Phone: Comment on above: GFR Calc Estimated GFR (MDRD) Non-Af Amer 68 mL/min >60 [facility] Work Phone: Comment on above: Non- GFR Calc Serum or plasma calcium matt urement (mass/volume)on 04-27-2022 Calcium [Mass/Vol] 9.7 mg/dL 8.5-10.1 [facility] Work Phone: Serum or plasma cholesterol in HDL measurement (mass/volume)on 04-27-2022 Cholesterol in HDL [Mass/Vol] 32 mg/dL >40 [facility] Work Phone: Comment on above: The drugs N-Acetylcy steine and Metamizole may falsely depress this assay. Reference Range HDL <40 mg/dL Low HDL Cholesterol HDL >or= 60 mg/dL High HDL Cholesterol Serum or plasma cholesterol in VLDL measurement (mass/volume)on 04-27-2022 Cholesterol in VLDL [Mass/Vol] 23 mg/dL 5-40 [facility] Work Phone: Serum or plasma creatinine m easurement (mass/volume)on 04-27-2022 Creatinine [Mass/Vol] 1.13 mg/dL 0.70-1.30 [facility] Work Phone: Comment on above: The validity of the calculated GFR & GFRAA in patients over 70 years has not been determined. Clinical correlation is essential. Serum or plasma low density lipoprotein (LDL) cholesterol measurement (mass/volume)on 04-27-2022 Cholesterol in LDL [Mass/Vol] 80 mg/dL 0-130 [facility] Work Phone: Serum or plasma urea nitroge n measurement (mass/volume)on 04-27-2022 Urea nitrogen [Mass/Vol] 12 mg/dL 7-18 [facility] Work Phone: Thin prep Papanicolaou smear with manual screeningon 04-27-2022 Thin prep Papanicolaou smear with manual screening 6 5-15 [facility] Work Phone: Whole blood hemoglobin A1c/t otal hemoglobin ratio (mass fraction)on 04-27-2022 HbA1c (Bld) [Mass fraction] 6.5 % 3.8-5.6 [facility] Work Phone: Comment on above: Normal < 5.7 % Predi abetic 5.7 - 6.4 % Diabetic >or= 6.5 % Please note range changes. Albumin Elph [Mass/Vol]on Albumin [Mass/Vol] Not Reportable [facility] Work Phone: Basophil percentageon 2021 Basophil percentage < 0.2 AI 0.0-0.9 [facility] Work Phone: Basophil percentage 2.5 mg/dL 2.5-4.9 [facility] Work Phone: Bilirubin [Mass/Vol] 0.60 mg/dL 0.20-1.00 [facility] Work Phone: Comment on above: For patients on eltr ombopag therapy, use of Dimension [place] TBIL is not recommended. Chloride [Moles/Vol] 108 mmol/L 98-107 [facility] Work Phone: Glucose [Mass/Vol] 126 mg/dL 74-106 [facility] Work Phone: Comment on above: Fasting Glucose resu lt greater than or equal to 126 mg/dL suggests DIABETES MELLITUS per A.D.A. criteria. Potassium [Moles/Vol] 2.9 mmol/L 3.5-5.1 [facility] Work Phone: Protein [Mass/Vol] 6.8 g/dL 6.4-8.2 [facility] Work Phone: Sodium [Moles/Vol] 138 mmol/L 136-145 [facility] Work Phone: Erythrocyte sedimentation ra gonzalo 04-21-2022 ESR (Bld) [Velocity] 39 mm/h 0-20 [facility] Work Phone: Giardia lamblia ag stool EIA on 04-21-2022 G. lamblia Ag IA Ql (Stl) Negative Negative [facility] Work Phone: Comment on above: Performed at: [address] [id number] Director: Romeo Hatfield PhD, Phone: [phone] Glucose Glucometer (BldC) [M ass/Vol]on 04-21-2022 Glucose [Mass/Vol] 166 mg/dL 74-106 [facility] Work Phone: Comment on above: MANAGEMENT OF PATIEN T CARE PER NURSING PROTOCOL Interpretation of serum or p lasma protein pattern by immunofixation (narrative resulton 04-21-2022 Protein Fractions Immunofixation Joey [Interp] Not Reportable [facility] Work Phone: Laboratory - Chemistry and C hemistry - challengeon 04-21-2022 ALP [Catalytic activity/Vol] 50 U/L 45-117 [facility] Work Phone: ALT [Catalytic activity/Vol] 28 U/L 16-61 [facility] Work Phone: CO2 [Moles/Vol] 21.0 mmol/L 21.0-32.0 [facility] Work Phone: Free T4 [Mass/Vol] 1.37 ng/dL 0.76-1.46 [facility] Work Phone: Globulin (S) [Mass/Vol] 4.5 g/dL 2.2-4.2 [facility] Work Phone: Magnesium [Mass/Vol] 1.8 mg/dL 1.6-2.6 [facility] Work Phone: Urea nitrogen/Creatinine [Mass ratio] 16.0 mg/mg 10-20 [facility] Work Phone: No Panel Informationon 04-21 Anti-Gliadin IgA Antibody 3 units 0-19 [facility] Work Phone: Comment on above: Negative 0 - 19 Weak Positive 20 - 30 Moderate to Strong Positive >30 Anti-Gliadin IgG Antibody 2 units 0-19 [facility] Work Phone: Comment on above: Negative 0 - 19 Weak Positive 20 - 30 Moderate to Strong Positive >30 Centromere B Antibody <0.2 AI 0.0-0.9 [facility] Work Phone: Endomysial IgA Antibody Negative Negative [facility] Work Phone: INSIDE SALES ACCOUNT REPRESENTATIVE Antibody <0.2 AI 0.0-0.9 [facility] Work Phone: Tissue Transglutaminase IgG Ab <2 U/mL 0-5 [facility] Work Phone: Comment on above: Negative 0 - 5 Weak Positive 6 - 9 Positive >9 Stool Calprotectin 499 ug/g 0-120 [facility] Work Phone: Comment on above: Concentration Interp retation Follow-Up<16 - 50 ug/g Normal None>50 -120 ug/g Borderline Re-evaluate in 4-6 weeks >120 ug/g Abnormal Repeat as clinically indicatedPerformed at: [facility] [address] [id number] Director: Romeo Hatfield PhD, Phone: [phone] at: [facility] [address] [id number] Director: Eligio Cortés MD, Phone: [phone] Stool Neutral Fats Normal . [facility] Work Phone: Comment on above: Normal (<60 Droplets /HPF) Stool Pancreatic Elastase 195 >200 [facility] Work Phone: Comment on above: Result Units: ug [address] st./g Severe Pancreatic Insufficiency: <100 Moderate Pancreatic Insufficiency: 100 - 200 Normal: >200Performed at: [facility] [address] [id number] Director: Eligio Cortés MD, Phone: [phone] Estimated Creatinine Clearance Calc 78.79 ml/min [facility] Work Phone: Estimated GFR (MDRD) Amer 95 mL/min >60 [facility] Work Phone: Comment on above: GFR Calc Estimated GFR (MDRD) Non-Af Amer 79 mL/min >60 [facility] Work Phone: Comment on above: Non- GFR Calc Qualitative fecal fat or lip idson 04-21-2022 Fat Ql (Stl) Normal . [facility] Work Phone: Comment on above: Normal (<100 Droplet s/HPF) Serum DNA double strand anti body assay (units/volume)on 04-21-2022 DNA double strand Ab Qn (S) [IU]/mL 0-9 [facility] Work Phone: Comment on above: Negative <5 Equivoca l 5 - 9 Positive >9 Serum IgA measurement (units /volume)on 04-21-2022 IgA Qn (S) 37 mg/dL 61-437 [facility] Work Phone: Comment on above: Result confirmed on concentration.Performed at: [facility] [id number] Director: Romeo Hatfield PhD, Phone: [phone] Serum Maryanne-1 antibody assay (u nits/volume)on 04-21-2022 Maryanne-1 extractable nuclear Ab Qn (S) <0.2 AI 0.0-0.9 [facility] Work Phone: Serum Scl-70 extractable nuc lear antibody assay (units/volume)on 04-21-2022 SCL-70 extractable nuclear Ab Qn (S) <0.2 AI 0.0-0.9 [facility] Work Phone: Serum Remy extractable nucl ear antibody detectionon 04-21-2022 Remy extractable nuclear Ab Ql (S) <0.2 AI 0.0-0.9 [facility] Work Phone: Serum hvhoq-3-ffytjetb measu rement by electrophoresison 04-21-2022 Alpha 1 globulin Elph [Mass/Vol] Not Reportable [facility] Work Phone: Serum classic neutrophil cyt oplasmic antibody assay (units/volume)on 04-21-2022 Neutrophil cytoplasmic Ab.classic Qn (S) See comment [facility] Work Phone: Comment on above: TEST RESULT LIMITSAn tineutrophil Cytoplasmic AbCytoplasmic (C-ANCA) <1:20 titer Neg:<1:20Perinuclear (P-ANCA) <1:20 titer Neg:<1:20The presence of positive fluorescence exhibiting P-ANCA or C-ANCA patterns alone is not specific for the diagnosis of Hi's Granulomatosis (WG) or microscopic polyangiitis. Decisions about treatment should not be based solely on ANCA IFA results. The [employer] ANCA [employer] Consensus recommends follow up testing of positive sera with both TN-3 and MPO-ANCA enzyme immunoassays. As many as 5% serum samples are positive only by EIA.Ref. AM J Clin Pathol 1999;111:507-513.Atypical pANCA <1:20 titer Neg:<1:20The atypical pANCA pattern has been observed in a significant percentage of patients with ulcerative colitis, primary sclerosing cholangitis and autoimmune hepatitis. ____ TESTING PERFORMED AT [facility]. ORIGINAL REPORT ON FILE IN LAB CONTAINS ADDITIONAL TEST SITE INFORMATION. Serum or plasma C reactive p rotein measurement (mass/volume)on 04-21-2022 CRP [Mass/Vol] 134.00 mg/L 0.0-3.0 [facility] Work Phone: Comment on above: C-Reactive Protein ( CRP) provides useful information for thediagnosis, therapy and monitoring of inflammatory processesand associated diseases. For the evaluation of Relative Riskfor Cardiovascular Disease, a High Sensitivity CRP (HSCRP)should be ordered. Serum or plasma IgA measurem ent (mass/volume)on 04-21-2022 IgA [Mass/Vol] Not Reportable [facility] Work Phone: Serum or plasma IgG measurem ent (mass/volume)on 04-21-2022 IgG [Mass/Vol] Not Reportable [facility] Work Phone: Serum or plasma IgM measurem ent (mass/volume)on 04-21-2022 IgM [Mass/Vol] Not Reportable [facility] Work Phone: Serum or plasma albumin matt urement (mass/volume)on 04-21-2022 Albumin [Mass/Vol] 2.3 g/dL 3.2-5.0 [facility] Work Phone: Serum or plasma albumin/glob ulin mass ratioon 04-21-2022 Albumin/Globulin [Mass ratio] 0.5 {ratio} 0.9-2.4 [facility] Work Phone: Serum or plasma beta globuli n measurement by electrophoresis (mass/volume)on 04-21-2022 Beta globulin Elph [Mass/Vol] Not Reportable [facility] Work Phone: Serum or plasma calcium matt urement (mass/volume)on 04-21-2022 Calcium [Mass/Vol] 8.6 mg/dL 8.5-10.1 [facility] Work Phone: Serum or plasma creatinine m easurement (mass/volume)on 04-21-2022 Creatinine [Mass/Vol] 1.00 mg/dL 0.70-1.30 [facility] Work Phone: Comment on above: The validity of the calculated GFR & GFRAA in patients over 70 years has not been determined. Clinical correlation is essential. Serum or plasma gamma globul in measurement by electrophoresis (mass/volume)on 04-21-2022 Gamma globulin Elph [Mass/Vol] Not Reportable [facility] Work Phone: Serum or plasma urea nitroge n measurement (mass/volume)on 04-21-2022 Urea nitrogen [Mass/Vol] 16 mg/dL 7-18 [facility] Work Phone: Serum perinuclear neutrophil cytoplasmic antibody titer by immunofluorescenceon 04-21-2022 Neutrophil cytoplasmic Ab.perinuclear IF (S) [Titer] Not Reportable [facility] Work Phone: Serum tissue transglutaminas e IgA antibody assay (units/volume)on 04-21-2022 tTG IgA Qn (S) <2 U/mL 0-3 [facility] Work Phone: Comment on above: Negative 0 - 3 Weak Positive 4 - 10 Positive >10 Tissue Transglutaminase (tTG) has been identified as the endomysial antigen. Studies have demonstr- ated that endomysial IgA antibodies have over 99% specificity for gluten sensitive enteropathy. Thin prep Papanicolaou smear with manual screeningon 04-21-2022 Thin prep Papanicolaou smear with manual screening Not Reportable [facility] Work Phone: Thin prep Papanicolaou smear with manual screening 23 U/L 15-37 [facility] Work Phone: Thin prep Papanicolaou smear with manual screening 9 5-15 [facility] Work Phone: Total protein bloodon 2021 Protein [Mass/Vol] See comment [facility] Work Phone: Comment on above: TEST RESULT LIMITSIF E and PE, SerumImmunoglobulin G, Qn,Serum 1866 High mg/dL 603-1613Immunoglobulin A, Qn,Serum 37 Low mg/dL 61-437Result confirmed on concentration.Immunoglobulin M, Qn,Serum 36 mg/dL 20-172Protein, Total 6.7 g/dL 6.0-8.5Albumin 2.7 Low g/dL 2.9-4.0Srggu-8-Yixlmewe 0.5 High g/dL 0.0-0.6Lcwln-0-Luniirda 1.1 High g/dL 0.4-1.0Beta Globulin 0.9 g/dL 0.7-1.3Gamma Globulin 1.6 g/dL 0.4-1.8M-Sergio Comment: g/dL Not ObservedMONOCLONAL IGG LAMBDA #1 = 0.8 G/DLMONOCLONAL IGG LAMBDA #2 = 0.4 G/DLGlobulin, Total 4.0 High g/dL 2.2-3.9A/G Ratio 0.7 0.7-1.7 Immunofixation Result,Serum AbnormalImmunofixation shows a biclonal IgG protein with lambda specificity.Please note: Protein electrophoresis scan will follow via computer, mail, or equine internship delivery. ___ TESTING PERFORMED AT [facility]. ORIGINAL REPORT ON FILE IN LAB CONTAINS ADDITIONAL TEST SITE INFORMATION. Absolute lymphocyte counton 04-20-2022 Lymphocytes Auto (Unsp spec) [#/Vol] 1.02 10*3/uL 0.83-4.51 [facility] Work Phone: Basophil percentageon 2021 Basophils/100 WBC (Bld) 0.2 % 0-1 [facility] Work Phone: Cholesterol [Mass/Vol] 84 mg/dL <200 [facility] Work Phone: Comment on above: <200 mg/dL Desirable 200-240 mg/dL Borderline >240 mg/dL High Risk Eosinophils/100 WBC (Bld) 0.1 % 0-5 [facility] Work Phone: Neutrophils (Bld) [#/Vol] 7.3 10*3/uL 2.0-7.7 [facility] Work Phone: Neutrophils/100 WBC (Bld) 77.8 % 47-70 [facility] Work Phone: Triglyceride [Mass/Vol] 83 mg/dL <199 [facility] Work Phone: [phone] Comment on above: The drugs N-Acetylcy steine and Metamizole may falsely depress this assay.Serum Triglycerides Reference Interval Normal <150 mg/dL Borderline high 150 - 199 mg/dL High 200 - 499 mg/dL Very High > or = 500 mg/dL WBC (Bld) [#/Vol] 9.4 10*3/uL 4.4-11.0 [facility] Work Phone: Blood erythrocytes count (nu mber/volume)on 04-20-2022 RBC (Bld) [#/Vol] 4.27 10*6/uL 4.6-6.2 [facility] Work Phone: Blood hemoglobin measurement (mass/volume)on 04-20-2022 Hemoglobin (Bld) [Mass/Vol] 12.1 g/dL 13.0-16.5 [facility] Work Phone: Blood lymphocytes/100 leukoc yteson 04-20-2022 Lymphocytes/100 WBC (Bld) 10.9 % 19-41 [facility] Work Phone: Blood monocytes/100 leukocyt eson 04-20-2022 Monocytes/100 WBC (Bld) 9.3 % 0-10 [facility] Work Phone: Blood platelet mean volumeon 04-20-2022 Platelet mean volume (Bld) [Entitic vol] 9.3 fL 6.2-12.0 [facility] Work Phone: Determination of erythrocyte mean corpuscular volume (MCV)on 04-20-2022 MCV (RBC) [Entitic vol] 81.5 fL 80-94 [facility] Work Phone: Hematocrit Auto (Bld) [Volum e fraction]on 04-20-2022 Hematocrit (Bld) [Volume fraction] 34.8 % 40-54 [facility] Work Phone: Laboratory - Hematology and Cell countson 04-20-2022 Erythrocyte distribution width (RBC) [Entitic vol] 40.9 fL 35.1-43.9 [facility] Work Phone: Erythrocyte distribution width (RBC) [Ratio] 13.8 % 11.6-14.6 [facility] Work Phone: Immature granulocytes/100 WBC (Bld) 1.700 % 0.0-0.9 [facility] Work Phone: Comment on above: IG% - Immature Granu locytes (promyelocytes, myelocytes and metamyelocytes) > 1% indicates that a LEFT SHIFT is Present. MCH (RBC) [Entitic mass] 28.3 pg 27.0-32.0 [facility] Work Phone: Nucleated RBC/100 WBC (Bld) [Ratio] 0 % 0-5 [facility] Work Phone: MCHC Auto (RBC) [Mass/Vol]on 04-20-2022 MCHC (RBC) [Mass/Vol] 34.8 g/dL 32-36 [facility] Work Phone: No Panel Informationon 04-20 Thyroid Stimulating Hormone (TSH) 0.32 uIU/mL 0.358-3.74 [facility] Work Phone: Platelets bldon 04-20-2022 Platelets (Bld) [#/Vol] 297 10*3/uL 150-450 [facility] Work Phone: Serum or plasma cholesterol in HDL measurement (mass/volume)on 04-20-2022 Cholesterol in HDL [Mass/Vol] 23 mg/dL >40 [facility] Work Phone: Comment on above: The drugs N-Acetylcy steine and Metamizole may falsely depress this assay. Reference Range HDL <40 mg/dL Low HDL Cholesterol HDL >or= 60 mg/dL High HDL Cholesterol Serum or plasma cholesterol in VLDL measurement (mass/volume)on 04-20-2022 Cholesterol in VLDL [Mass/Vol] 17 mg/dL 5-40 [facility] Work Phone: Serum or plasma low density lipoprotein (LDL) cholesterol measurement (mass/volume)on 04-20-2022 Cholesterol in LDL [Mass/Vol] 44 mg/dL 0-130 [facility] Work Phone: Whole blood hemoglobin A1c/t otal hemoglobin ratio (mass fraction)on 04-20-2022 HbA1c (Bld) [Mass fraction] 6.5 % 3.8-5.6 [facility] Work Phone: Comment on above: Normal < 5.7 % Predi abetic 5.7 - 6.4 % Diabetic >or= 6.5 % Please note range changes. Absolute lymphocyte counton 04-19-2022 Lymphocytes Auto (Unsp spec) [#/Vol] 0.98 10*3/uL 0.83-4.51 [facility] Work Phone: Basophil percentageon 2021 Basophils/100 WBC (Bld) 0.2 % 0-1 [facility] Work Phone: [phone] Chloride [Moles/Vol] 104 mmol/L 98-107 [facility] Work Phone: [phone] Eosinophils/100 WBC (Bld) 0.1 % 0-5 [facility] Work Phone: [phone] Glucose [Mass/Vol] 222 mg/dL 74-106 [facility] Work Phone: [phone] Comment on above: Glucose result great er than or equal to 200 mg/dLsuggests DIABETES MELLITUS per A.D.A. criteria. Neutrophils (Bld) [#/Vol] 11.0 10*3/uL 2.0-7.7 [facility] Work Phone: [phone] Neutrophils/100 WBC (Bld) 81.9 % 47-70 [facility] Work Phone: [phone] Potassium [Moles/Vol] 2.9 mmol/L 3.5-5.1 [facility] Work Phone: [phone] Sodium [Moles/Vol] 136 mmol/L 136-145 [facility] Work Phone: [phone] WBC (Bld) [#/Vol] 13.4 10*3/uL 4.4-11.0 [facility] Work Phone: Blood erythrocytes count (nu mber/volume)on 04-19-2022 RBC (Bld) [#/Vol] 4.63 10*6/uL 4.6-6.2 [facility] Work Phone: [phone] Blood hemoglobin measurement (mass/volume)on 04-19-2022 Hemoglobin (Bld) [Mass/Vol] 13.4 g/dL 13.0-16.5 [facility] Work Phone: Blood lymphocytes/100 leukoc yteson 04-19-2022 Lymphocytes/100 WBC (Bld) 7.3 % 19-41 [facility] Work Phone: Blood monocytes/100 leukocyt eson 04-19-2022 Monocytes/100 WBC (Bld) 7.9 % 0-10 [facility] Work Phone: Blood platelet mean volumeon 04-19-2022 Platelet mean volume (Bld) [Entitic vol] 8.9 fL 6.2-12.0 [facility] Work Phone: Determination of erythrocyte mean corpuscular volume (MCV)on 04-19-2022 MCV (RBC) [Entitic vol] 81.6 fL 80-94 [facility] Work Phone: Glucose Glucometer (BldC) [M ass/Vol]on 04-19-2022 Glucose [Mass/Vol] 213 mg/dL 74-106 [facility] Work Phone: Comment on above: MANAGEMENT OF PATIEN T CARE PER NURSING PROTOCOL Hematocrit Auto (Bld) [Volum e fraction]on 04-19-2022 Hematocrit (Bld) [Volume fraction] 37.8 % 40-54 [facility] Work Phone: INR in Blood by Coagulation assayon 04-19-2022 INR Coag (Bld) [Relative time] 1.2 {INR} [facility] Work Phone: Laboratory - Chemistry and C hemistry - challengeon 04-19-2022 CO2 [Moles/Vol] 24.0 mmol/L 21.0-32.0 [facility] Work Phone: Urea nitrogen/Creatinine [Mass ratio] 15.9 mg/mg 10-20 [facility] Work Phone: Laboratory - Coagulationon 0 04-19-2022 aPTT Coag (Bld) [Time] 24.0 s 24.1-36.2 [facility] Work Phone: PT Coag (PPP) [Time] 14.9 s 11.7-14.9 [facility] Work Phone: Laboratory - Hematology and Cell countson 04-19-2022 Erythrocyte distribution width (RBC) [Entitic vol] 40.5 fL 35.1-43.9 [facility] Work Phone: Erythrocyte distribution width (RBC) [Ratio] 13.6 % 11.6-14.6 [facility] Work Phone: Immature granulocytes/100 WBC (Bld) 2.600 % 0.0-0.9 [facility] Work Phone: Comment on above: IG% - Immature Granu locytes (promyelocytes, myelocytes and metamyelocytes) > 1% indicates that a LEFT SHIFT is Present. MCH (RBC) [Entitic mass] 28.9 pg 27.0-32.0 [facility] Work Phone: Nucleated RBC/100 WBC (Bld) [Ratio] 0 % 0-5 [facility] Work Phone: MCHC Auto (RBC) [Mass/Vol]on 04-19-2022 MCHC (RBC) [Mass/Vol] 35.4 g/dL 32-36 [facility] Work Phone: No Panel Informationon 04-19 Estimated Creatinine Clearance Calc 54.34 ml/min [facility] Work Phone: Estimated GFR (MDRD) Amer 62 mL/min >60 [facility] Work Phone: Comment on above: GFR Calc Estimated GFR (MDRD) Non-Af Amer 51 mL/min >60 [facility] Work Phone: Comment on above: Non- GFR Calc Troponin I High Sensitivity 15 pg/mL 3.0-78.0 [facility] Work Phone: Comment on above: Please Note: New Dee t Units and Gender Specific Reference Ranges. For more information see Policy Stat Procedure [place] High Sensitivity Troponin (TNIH) and attachments. Platelets bldon 04-19-2022 Platelets (Bld) [#/Vol] 334 10*3/uL 150-450 [facility] Work Phone: Serum or plasma calcium matt urement (mass/volume)on 04-19-2022 Calcium [Mass/Vol] 8.9 mg/dL 8.5-10.[address] [facility] Work Phone: Serum or plasma creatinine m easurement (mass/volume)on 04-19-2022 Creatinine [Mass/Vol] 1.45 mg/dL 0.70-1.30 [facility] Work Phone: Comment on above: The validity of the calculated GFR & GFRAA in patients over 70 years has not been determined. Clinical correlation is essential. Serum or plasma urea nitroge n measurement (mass/volume)on 04-19-2022 Urea nitrogen [Mass/Vol] 23 mg/dL 7-18 [facility] Work Phone: Thin prep Papanicolaou smear with manual screeningon 04-19-2022 Thin prep Papanicolaou smear with manual screening 8 5-15 [facility] Work Phone: Absolute lymphocyte counton 04-17-2022 Lymphocytes Auto (Unsp spec) [#/Vol] 1.21 10*3/uL 0.83-4.51 [facility] Work Phone: Basophil percentageon 2021 Basophils/100 WBC (Bld) 0.9 % 0-1 [facility] Work Phone: Bilirubin [Mass/Vol] 0.50 mg/dL 0.20-1.00 [facility] Work Phone: Comment on above: For patients on eltr ombopag therapy, use of Dimension [place] TBIL is not recommended. Chloride [Moles/Vol] 103 mmol/L 98-107 [facility] Work Phone: Eosinophils/100 WBC (Bld) 0.7 % 0-5 [facility] Work Phone: Glucose [Mass/Vol] 149 mg/dL 74-106 [facility] Work Phone: Comment on above: Fasting Glucose resu lt greater than or equal to 126 mg/dL suggests DIABETES MELLITUS per A.D.A. criteria. Neutrophils (Bld) [#/Vol] 6.4 10*3/uL 2.0-7.7 [facility] Work Phone: Neutrophils/100 WBC (Bld) 68.6 % 47-70 [facility] Work Phone: Potassium [Moles/Vol] 2.5 mmol/L 3.5-5.1 [facility] Work Phone: Comment on above: Critical Result(s) C alled at: 10:39:49 04/17/2022 by: Bradley Crouch to Trisha JEFFERY (ER). Results read back by same. Protein [Mass/Vol] 8.1 g/dL 6.4-8.2 [facility] Work Phone: Sodium [Moles/Vol] 134 mmol/L 136-145 [facility] Work Phone: WBC (Bld) [#/Vol] 9.4 10*3/uL 4.4-11.0 [facility] Work Phone: Blood erythrocytes count (nu mber/volume)on 04-17-2022 RBC (Bld) [#/Vol] 4.94 10*6/uL 4.6-6.2 [facility] Work Phone: Blood hemoglobin measurement (mass/volume)on 04-17-2022 Hemoglobin (Bld) [Mass/Vol] 14.1 g/dL 13.0-16.5 [facility] Work Phone: Blood lymphocytes/100 leukoc yteson 04-17-2022 Lymphocytes/100 WBC (Bld) 12.9 % 19-41 [facility] Work Phone: Blood manual differential co mment interpretation (narrative result)on 04-17-2022 Manual differential comment Joey (Bld) [Interp] See comment [facility] Work Phone: Comment on above: BANDS NOTED Blood monocytes/100 leukocyt eson 04-17-2022 Monocytes/100 WBC (Bld) 13.8 % 0-10 [facility] Work Phone: Blood platelet mean volumeon 04-17-2022 Platelet mean volume (Bld) [Entitic vol] 9.5 fL 6.2-12.0 [facility] Work Phone: Determination of erythrocyte mean corpuscular volume (MCV)on 04-17-2022 MCV (RBC) [Entitic vol] 82.2 fL 80-94 [facility] Work Phone: Hematocrit Auto (Bld) [Volum e fraction]on 04-17-2022 Hematocrit (Bld) [Volume fraction] 40.6 % 40-54 [facility] Work Phone: Laboratory - Chemistry and C hemistry - challengeon 04-17-2022 ALP [Catalytic activity/Vol] 53 U/L 45-117 [facility] Work Phone: ALT [Catalytic activity/Vol] 19 U/L 16-61 [facility] Work Phone: CO2 [Moles/Vol] 20.0 mmol/L 21.0-32.0 [facility] Work Phone: Globulin (S) [Mass/Vol] 5.3 g/dL 2.2-4.2 [facility] Work Phone: Magnesium [Mass/Vol] 2.1 mg/dL 1.6-2.6 [facility] Work Phone: Urea nitrogen/Creatinine [Mass ratio] 21.9 mg/mg 10-20 [facility] Work Phone: Laboratory - Hematology and Cell countson 04-17-2022 Erythrocyte distribution width (RBC) [Entitic vol] 41.1 fL 35.1-43.9 [facility] Work Phone: Erythrocyte distribution width (RBC) [Ratio] 13.8 % 11.6-14.6 [facility] Work Phone: Immature granulocytes/100 WBC (Bld) 3.100 % 0.0-0.9 [facility] Work Phone: Comment on above: IG% - Immature Granu locytes (promyelocytes, myelocytes and metamyelocytes) > 1% indicates that a LEFT SHIFT is Present. MCH (RBC) [Entitic mass] 28.5 pg 27.0-32.0 [facility] Work Phone: Nucleated RBC/100 WBC (Bld) [Ratio] 0 % 0-5 [facility] Work Phone: MCHC Auto (RBC) [Mass/Vol]on 04-17-2022 MCHC (RBC) [Mass/Vol] 34.7 g/dL 32-36 [facility] Work Phone: No Panel Informationon 04-17 Estimated Creatinine Clearance Calc 41.04 ml/min [facility] Work Phone: Estimated GFR (MDRD) Amer 45 mL/min >60 [facility] Work Phone: Comment on above: GFR Calc Estimated GFR (MDRD) Non-Af Amer 37 mL/min >60 [facility] Work Phone: Comment on above: Non- GFR Calc Troponin I High Sensitivity 14 pg/mL 3.0-78.0 [facility] Work Phone: Comment on above: Please Note: New Dee t Units and Gender Specific Reference Ranges. For more information see Policy Stat Procedure [place] High Sensitivity Troponin (TNIH) and attachments. Platelets bldon 04-17-2022 Platelets (Bld) [#/Vol] 365 10*3/uL 150-450 [facility] Work Phone: Serum or plasma albumin matt urement (mass/volume)on 04-17-2022 Albumin [Mass/Vol] 2.8 g/dL 3.2-5.0 [facility] Work Phone: Serum or plasma albumin/glob ulin mass ratioon 04-17-2022 Albumin/Globulin [Mass ratio] 0.5 {ratio} 0.9-2.4 [facility] Work Phone: Serum or plasma calcium matt urement (mass/volume)on 04-17-2022 Calcium [Mass/Vol] 8.8 mg/dL 8.5-10.1 [facility] Work Phone: Serum or plasma cortisol yuko surement (mass/volume)on 04-17-2022 Cortisol [Mass/Vol] 19.60 ug/dL 3.44-22.45 [facility] Work Phone: Comment on above: Adult (AM) 5.27 - 22 .45 ug/dL Adult (PM) 3.44 - 16.76 ug/dLPlease note revised CORTISOL reference range effective 2019. Serum or plasma creatinine m easurement (mass/volume)on 04-17-2022 Creatinine [Mass/Vol] 1.92 mg/dL 0.70-1.30 [facility] Work Phone: Comment on above: The validity of the calculated GFR & GFRAA in patients over 70 years has not been determined. Clinical correlation is essential. Serum or plasma urea nitroge n measurement (mass/volume)on 04-17-2022 Urea nitrogen [Mass/Vol] 42 mg/dL 7-18 [facility] Work Phone: Thin prep Papanicolaou smear with manual screeningon 04-17-2022 Thin prep Papanicolaou smear with manual screening 19 U/L 15-37 [facility] Work Phone: Thin prep Papanicolaou smear with manual screening 11 5-15 [facility] Work Phone: CORONAVIRUS 2019, SCREEN ASY MPTOMATICon 08-17-2021 DATE OF SYMPTOM ONSET [YYYYMMDD]? Canceled Normal [facility] Comment on above: Order Comment: TEST CORONAVIRUS 2018, SCREEN ASYMPTOMATIC WAS CANCELLED, 08/17/2021 19:13 Patient no show for COVID testing. Performed By: #### C OVSC #### [facility] [id number] [place] [address] SARS-CoV-2 (COVID-19) RNA KEVIN+probe Ql (Unsp spec) Canceled Normal [facility] Comment on above: Order Comment: TEST CORONAVIRUS 2019, SCREEN ASYMPTOMATIC WAS CANCELLED, 08/17/2021 19:13 Patient no show for COVID testing. Result Comment: . This assay is designed to detect the N, ORF1ab and/or S genes of SARS-CoV-2 via nucleic acid amplification. A Negative (NOT DETECTED) result does not preclude 2019-nCoV infection since the adequacy of sample collection and/or low viral burden may result in presence of viral nucleic acids below the clinical sensitivity of this test method. Negative (NOT DETECTED) result should not be used as the sole basis for treatment or other patient management decisions. Rather negative results should be combined with clinical observations, patient history, and epidemiological information to make patient management decisions. Fact sheet for providers: https://www.fda.gov/media/008031/download Fact sheet for patients: https://www.fda.gov/media/999002/download This test has received FDA Emergency Use Authorization (EUA) and has been verified by [facility] ([facility]). This test is only authorized for the duration of time that circumstances exist to justify the authorization of the emergency use of in vitro diagnostic tests for the detection of SARS-CoV-2 virus and/or diagnosis of COVID-19 infection under section 564(b)(1) of the Act, 21 U.S.C. 360bbb-3(b)(1), unless the authorization is terminated or revoked sooner. [facility] is certified under CLIA-88 as qualified to perform high complexity testing. Testing is performed in the [facility] laboratories located at [address] [place] [address]. Performed By: #### C OVSC #### [facility] [id number] [place] [address] GLUCOSE-POCTon 06-02-2021 Glucose [Mass/Vol] 135 mg/dL High 74 - 99 [facility] Comment on above: Performed By: #### G LADONNA #### [facility] [address] [place] [address] Laboratory - Chemistry and C hemistry - challengeon 06-02-2021 Glucose [Mass/Vol] 135 mg/dL above high threshold 74 - 99 [facility] G[facility] 120 Work Phone: No Panel Informationon 06-02 [facility] Work Phone: [email or web address] [facility] 120 Work Phone: [facility] Surgical Pathology Depar tmenton 06-02-2021 [facility] Surgical Pathology Department Name OSEAS JOSEPH Pathologist: JEFFY ADAMES MD Date of Procedure: 06/02/2021 Date Received: 06/03/2021 Date Reported 06/07/2021 Submitting Physician: AZEEM ARTEAGA DO Location: [facility] Endoscopy Copy To/Referring/Attending: EUNICE NIEVES DO Other External # FINAL DIAGNOSIS A. CECAL POLYP: --NONDYSPLASTIC COLONIC MUCOSA CONTAINING PROMINENT MUCOSAL LYMPHOID FOLLICLE. Note: Multiple deeper levels were examined. B. SIGMOID COLON, POLYPECTOMY: --FRAGMENTS OF TUBULAR ADENOMA. Electronically Signed Out By JEFFY ADAMES MD/[facility] By the signature on this report, the individual or group listed as making the Final Interpretation/Diagnosis certifies that they have reviewed this case. Clinical History: Physician Contact Number: [phone] Fixative (A): Formalin Fixative (B): Formalin Clinical Diagnosis History SCREENING Specimens Submitted As: A: CECAL POLYP B: SIGMOID COLON POLYP Gross Description: A: Received in formalin, labeled with the patient's name and hospital number and cecal polyp, are multiple fragments of ibarra, soft tissue aggregating to 1.1 x 0.2 x 0.1 cm. The specimen is submitted in toto in one cassette. SBS B: Received in formalin, labeled with the patient's name and hospital number and sigmoid polyp, is a polypoid segment of ibarra, soft tissue measuring 1.5 x 1.4 x 0.8 cm. The line of resection is inked and the polyp is trisected. Also received are multiple fragments of ibarra soft tissue aggregating to 1.3 x 0.9 x 0.3. The specimen is entirely submitted in 3 cassettes. [facility] Summary of Cassettes: Specimen Label Site B 1 polyp line of resection 2 polyp sides 3 fragments of ibarra soft tissue [facility]/06/03/2021 [facility] Department of Pathology [address] [place] [address] Normal [facility] Comment on above: Performed By: #### U HCS #### [facility] Surgical Pathology Department [address] [id number] CORONAVIRUS 2019, SCREEN ASY MPTOMATICon 05-18-2021 Lab Specimen Source Nasal, Nasopharyngeal Normal [facility] Comment on above: Order Comment: TEST CORONAVIRUS 2019, SCREEN ASYMPTOMATIC WAS CANCELLED, 08/17/2021 19:13 Patient no show for COVID testing. Performed By: #### C OVSC #### [facility] [address] [facility]. [place] [id number] Laboratory - Microbiology an d Antimicrobial susceptibility Bacteria identified Cx Nom (Bld) No growth in 5 days. [facility] Work Phone: No Panel Information [facility] Stool lactoferrin detection by immunoassay Lactoferrin IA Ql (Stl) [facility] Work Phone: Vital Signs Date Time Vital Sign Value Performing Clinician Facility 05-01-2025 12:30-0400 Body height 182.9 cm [facility] 1 Work Phone: [facility] 05-01-2025 12:30-0400 Body mass index (BMI) [Ratio] 23.73 kg/m2 [facility] 1 Work Phone: [facility] 05-01-2025 12:30-0400 Body temperature 97.2 [degF] [facility] 1 Work Phone: [facility] 05-01-2025 12:30-0400 Body weight 79.38 kg [facility] 1 Work Phone: [facility] 05-01-2025 12:30-0400 Diastolic blood pressure 56 mm[Hg] [facility] 1 Work Phone: [facility] 05-01-2025 12:30-0400 Heart rate 57 /min [facility] 1 Work Phone: [facility] 05-01-2025 12:30-0400 Respiratory rate 12 /min [facility] 1 Work Phone: [facility] 05-01-2025 12:30-0400 SaO2% (BldA) [Mass fraction] 95 % [facility] 1 Work Phone: [facility] 05-01-2025 12:30-0400 Systolic blood pressure 122 mm[Hg] [facility] 1 Work Phone: [facility] 05-01-2025 11:20-0400 Body mass index (BMI) [Ratio] 23.92 kg/m2 Bright Thao PHARMACIST CRITICAL CARE.[employer] Work Phone: [facility] 05-01-2025 11:20-0400 Body temperature 97.11 [degF] [place] Thao PHARMACIST CRITICAL CARE.[employer]ICE [employer] Work Phone: [facility] 05-01-2025 11:20-0400 Body weight 80 kg Bright Thao PHARMACIST CRITICAL CARE.[employer]TERN[employer]KER [employer]ICE [employer] Work Phone: [facility] 05-01-2025 11:20-0400 Diastolic blood pressure 69 mm[Hg] Bright Thao PHARMACIST CRITICAL CARE.PATTERNMAKER [employer]PR[employer]ICE WO[employer] Work Phone: [facility] 05-01-2025 11:20-0400 Heart rate 60 /min [place] Thao PHARMACIST CRITICAL CARE.[employer] Work Phone: [facility] 05-01-2025 11:20-0400 SaO2% (BldA) [Mass fraction] 97 % [place] Thao PHARMACIST CRITICAL CARE.[employer]TERN[employer]KER [employer]ICE [employer] Work Phone: [facility] 05-01-2025 11:20-0400 Systolic blood pressure 118 mm[Hg] [place] Thao PHARMACIST CRITICAL CARE.[employer]TERN[employer]ER [employer]PR[employer]ICE [employer] Work Phone: [facility] 04-17-2025 08:33-0400 Body height 182.9 cm [facility] 2 Work Phone: [facility] 04-17-2025 08:33-0400 Body mass index (BMI) [Ratio] 25.38 kg/m2 [facility] 2 Work Phone: [facility] 04-17-2025 08:33-0400 Body temperature 98.49 [degF] [facility] 2 Work Phone: [facility] 04-17-2025 08:33-0400 Body weight 84.9 kg [facility] 2 Work Phone: [facility] 04-17-2025 08:33-0400 Diastolic blood pressure 80 mm[Hg] [facility] 2 Work Phone: [facility] 04-17-2025 08:33-0400 Heart rate 55 /min [facility] 2 Work Phone: [facility] 04-17-2025 08:33-0400 Respiratory rate 18 /min [facility] 2 Work Phone: [facility] 04-17-2025 08:33-0400 SaO2% (BldA) [Mass fraction] 99 % [facility] 2 Work Phone: [facility] 04-17-2025 08:33-0400 Systolic blood pressure 156 mm[Hg] [facility] 2 Work Phone: [facility] 04-08-2025 10:49-0400 Diastolic blood pressure 78 mm[Hg] Geoff Young MD Work Phone: [facility] 04-08-2025 10:49-0400 Systolic blood pressure 136 mm[Hg] Geoff Young MD Work Phone: [facility] 04-08-2025 10:03-0400 Body mass index (BMI) [Ratio] 25.8 kg/m2 Geoff Young MD Work Phone: [facility] 04-08-2025 10:03-0400 Body weight 86.3 kg Geoff Young MD Work Phone: [facility] 04-08-2025 10:03-0400 Heart rate 51 /min Geoff Young MD Work Phone: [facility] 04-08-2025 10:03-0400 Respiratory rate 16 /min Geoff Young MD Work Phone: [facility] 04-08-2025 10:03-0400 SaO2% (BldA) [Mass fraction] 99 % Geoff Young MD Work Phone: [facility] 04-03-2025 08:42-0400 Body mass index (BMI) [Ratio] 25.5 kg/m2 Connie Mccain DO Work Phone: [facility] 04-03-2025 08:42-0400 Body temperature 98.71 [degF] Connie Padillai DO Work Phone: [facility] 04-03-2025 08:42-0400 Body weight 85.28 kg Connie Valeriei DO Work Phone: [facility] 04-03-2025 08:42-0400 Diastolic blood pressure 55 mm[Hg] Connie Valeriei DO Work Phone: [facility] 04-03-2025 08:42-0400 Heart rate 55 /min Connie Padillai DO Work Phone: [facility] 04-03-2025 08:42-0400 SaO2% (BldA) [Mass fraction] 95 % Connie Valeriei DO Work Phone: [facility] 04-03-2025 08:42-0400 Systolic blood pressure 100 mm[Hg] Connie Valeriei DO Work Phone: [facility] 03-21-2025 09:23-0400 Body height 182.9 cm Eunice Morales PA-C Work Phone: [facility] 03-21-2025 09:23-0400 Body mass index (BMI) [Ratio] 25.59 kg/m2 Eunice Morales PA-C Work Phone: [facility] 03-21-2025 09:23-0400 Body weight 85.6 kg Eunice Morales PA-C Work Phone: [facility] 03-21-2025 09:23-0400 Diastolic blood pressure 72 mm[Hg] Eunice Morales PA-C Work Phone: [facility] 03-21-2025 09:23-0400 Heart rate 51 /min Eunice Morales PA-C Work Phone: [facility] 03-21-2025 09:23-0400 SaO2% (BldA) [Mass fraction] 99 % Eunice Morales PA-C Work Phone: [facility] 03-21-2025 09:23-0400 Systolic blood pressure 129 mm[Hg] Eunice Morales PA-C Work Phone: [facility] 03-06-2025 09:31-0400 Body mass index (BMI) [Ratio] 24.54 kg/m2 Connie Masci DO Work Phone: [facility] 03-06-2025 09:31-0400 Body temperature 98.1 [degF] Connie Masci DO Work Phone: [facility] 03-06-2025 09:31-0400 Body weight 84.82 kg Connie Masci DO Work Phone: [facility] 03-06-2025 09:31-0400 Diastolic blood pressure 77 mm[Hg] Connie Masci DO Work Phone: [facility] 03-06-2025 09:31-0400 Heart rate 54 /min Connie Masci DO Work Phone: [facility] 03-06-2025 09:31-0400 Respiratory rate 12 /min Connie Masci DO Work Phone: [facility] 03-06-2025 09:31-0400 SaO2% (BldA) [Mass fraction] 98 % Connie Masci DO Work Phone: [facility] 03-06-2025 09:31-0400 Systolic blood pressure 134 mm[Hg] Connie Masci DO Work Phone: [facility] 02-06-2025 09:39-0400 Body mass index (BMI) [Ratio] 25.34 kg/m2 Bright Thao PHARMACIST CRITICAL CARE.[employer]ER [employer] Work Phone: [facility] 02-06-2025 09:39-0400 Body temperature 98.01 [degF] [place] Thao PHARMACIST CRITICAL CARE.[employer]TERN[employer]KER [employer]PR[employer]ICE [employer] Work Phone: [facility] 02-06-2025 09:39-0400 Body weight 87.6 kg Bright Thao PHARMACIST CRITICAL CARE.PATTERNMAKER [employer]PR[employer]ICE [employer] Work Phone: [facility] 02-06-2025 09:39-0400 Diastolic blood pressure 76 mm[Hg] Bright Thao PHARMACIST CRITICAL CARE.PAT[employer]MAKER [employer]PR[employer]ICE [employer] Work Phone: [facility] 02-06-2025 09:39-0400 Heart rate 63 /min Bright Nelsonenter PHARMACIST CRITICAL CARE.PATTERNMAKER APPRENTICE [employer] Work Phone: [facility] 02-06-2025 09:39-0400 SaO2% (BldA) [Mass fraction] 97 % Bright Thao PHARMACIST CRITICAL CARE.PATTERNMAKER APPRENTICE [employer] Work Phone: [facility] 02-06-2025 09:39-0400 Systolic blood pressure 123 mm[Hg] Bright Thao PHARMACIST CRITICAL CARE.PATTERNMAKER APPRENTICE WO[employer] Work Phone: [facility] 01-09-2025 11:39-0400 Body mass index (BMI) [Ratio] 24.87 kg/m2 Connie Masci DO Work Phone: [facility] 01-09-2025 11:39-0400 Body temperature 97.5 [degF] Connie Masci DO Work Phone: [facility] 01-09-2025 11:39-0400 Body weight 85.96 kg Connie Masci DO Work Phone: [facility] 01-09-2025 11:39-0400 Diastolic blood pressure 67 mm[Hg] Connie Masci DO Work Phone: [facility] 01-09-2025 11:39-0400 Heart rate 63 /min Connie Masci DO Work Phone: [facility] 01-09-2025 11:39-0400 SaO2% (BldA) [Mass fraction] 100 % Connie Masci DO Work Phone: [facility] 01-09-2025 11:39-0400 Systolic blood pressure 113 mm[Hg] Connie Masci DO Work Phone: [facility] 12-30-2024 09:43-0400 Diastolic blood pressure 62 mm[Hg] Gilbert Ramirez APRN.[employer]ER [employer]ICE [employer] Work Phone: [facility] 12-30-2024 09:43-0400 Heart rate 55 /min Gilbert Ramirez APRN.PATTERNMAKER APPRENTICE [employer] Work Phone: [facility] 12-30-2024 09:43-0400 Systolic blood pressure 126 mm[Hg] Gilbert Ramirez APRN.PATTERNMAKER APPRENTICE WOOD Work Phone: [facility] 12-12-2024 09:24-0500 Body mass index (BMI) [Ratio] 24.87 kg/m2 Connie Masci DO Work Phone: [facility] 12-12-2024 09:24-0500 Body temperature 98.2 [degF] Connie Masci DO Work Phone: [facility] 12-12-2024 09:24-0500 Body weight 85.96 kg Connie Masci DO Work Phone: [facility] 12-12-2024 09:24-0500 Diastolic blood pressure 77 mm[Hg] Connie Masci DO Work Phone: [facility] 12-12-2024 09:24-0500 Heart rate 68 /min Connie Masci DO Work Phone: [facility] 12-12-2024 09:24-0500 SaO2% (BldA) [Mass fraction] 98 % Connie Masci DO Work Phone: [facility] 12-12-2024 09:24-0500 Systolic blood pressure 139 mm[Hg] Connie Masci DO Work Phone: [facility] 11-29-2024 13:03-0500 Body height 185.9 cm Gilbert Ashley [place].PATTERNMAKER APPRENTICE WOOD Work Phone: [facility] 11-29-2024 13:03-0500 Body mass index (BMI) [Ratio] 24.54 kg/m2 Gilbert Ashley [place].PATTERNMAKER APPRENTICE WOOD Work Phone: [facility] 11-29-2024 13:03-0500 Body weight 84.82 kg Gilbert Ramirez APRN.PATTERNMAKER APPRENTICE WOOD Work Phone: [facility] 11-29-2024 13:03-0500 Diastolic blood pressure 65 mm[Hg] Gilbert Ramirez APRN.PATTERNMAKER APPRENTICE WOOD Work Phone: [facility] 11-29-2024 13:03-0500 Heart rate 59 /min Gilbert Ashley [place].PATTERNMAKER APPRENTICE WOOD Work Phone: [facility] 11-29-2024 13:03-0500 Systolic blood pressure 133 mm[Hg] Gilbert Ashley [place].PATTERNMAKER APPRENTICE WOOD Work Phone: [facility] 11-19-2024 10:27-0500 Body mass index (BMI) [Ratio] 25.17 kg/m2 Betsy Reneeer PA-C Work Phone: [facility] 11-19-2024 10:27-0500 Body weight 87 kg Betsy Reneeer PA-C Work Phone: [facility] 11-19-2024 10:27-0500 Diastolic blood pressure 71 mm[Hg] Betsy Reneeer PA-C Work Phone: [facility] 11-19-2024 10:27-0500 Heart rate 66 /min Betsy Reneeer PA-C Work Phone: [facility] 11-19-2024 10:27-0500 Respiratory rate 16 /min Betsy Reneeer PA-C Work Phone: [facility] 11-19-2024 10:27-0500 SaO2% (BldA) [Mass fraction] 99 % Betsy Reneeer PA-C Work Phone: [facility] 11-19-2024 10:27-0500 Systolic blood pressure 120 mm[Hg] Betsy Kemp PA-C Work Phone: [facility] 11-14-2024 09:03-0500 Body mass index (BMI) [Ratio] 25.13 kg/m2 Connie Masci DO Work Phone: [facility] 11-14-2024 09:03-0500 Body temperature 98.2 [degF] Connie Masci DO Work Phone: [facility] 11-14-2024 09:03-0500 Body weight 86.86 kg Connie Masci DO Work Phone: [facility] 11-14-2024 09:03-0500 Diastolic blood pressure 73 mm[Hg] Connie Masci DO Work Phone: [facility] 11-14-2024 09:03-0500 Heart rate 68 /min Connie Masci DO Work Phone: [facility] 11-14-2024 09:03-0500 SaO2% (BldA) [Mass fraction] 99 % Connie Masci DO Work Phone: [facility] 11-14-2024 09:03-0500 Systolic blood pressure 123 mm[Hg] Connie Masci DO Work Phone: [facility] 10-17-2024 09:03-0500 Body mass index (BMI) [Ratio] 25.39 kg/m2 Farhan East MD Work Phone: [facility] 10-17-2024 09:03-0500 Body temperature 97.9 [degF] Farhan East MD Work Phone: [facility] 10-17-2024 09:03-0500 Body weight 87.77 kg Farhan East MD Work Phone: [facility] 10-17-2024 09:03-0500 Diastolic blood pressure 61 mm[Hg] Farhan East MD Work Phone: [facility] 10-17-2024 09:03-0500 Heart rate 66 /min Farhan East MD Work Phone: [facility] 10-17-2024 09:03-0500 SaO2% (BldA) [Mass fraction] 99 % Farhan East MD Work Phone: [facility] 10-17-2024 09:03-0500 Systolic blood pressure 94 mm[Hg] Farhan East MD Work Phone: [facility] 10-08-2024 10:08-0500 Body height 185.9 cm Geoff Young MD Work Phone: [facility] 10-08-2024 10:08-0500 Body mass index (BMI) [Ratio] 24.85 kg/m2 Geoff Young MD Work Phone: [facility] 10-08-2024 10:08-0500 Body weight 85.9 kg Geoff Young MD Work Phone: [facility] 10-08-2024 10:08-0500 Diastolic blood pressure 66 mm[Hg] Geoff Young MD Work Phone: [facility] 10-08-2024 10:08-0500 Heart rate 62 /min Geoff Young MD Work Phone: [facility] 10-08-2024 10:08-0500 Respiratory rate 16 /min Geoff Young MD Work Phone: [facility] 10-08-2024 10:08-0500 SaO2% (BldA) [Mass fraction] 98 % Geoff Young MD Work Phone: [facility] 10-08-2024 10:08-0500 Systolic blood pressure 113 mm[Hg] Geoff Young MD Work Phone: [facility] 09-18-2024 08:05-0500 Body mass index (BMI) [Ratio] 25.46 kg/m2 Connie Mccain DO Work Phone: [facility] 09-18-2024 08:05-0500 Body temperature 97.81 [degF] Connie Masci DO Work Phone: [facility] 09-18-2024 08:05-0500 Body weight 88 kg Connie Masci DO Work Phone: [facility] 09-18-2024 08:05-0500 Diastolic blood pressure 55 mm[Hg] Connie Masci DO Work Phone: [facility] 09-18-2024 08:05-0500 Heart rate 63 /min Connie Masci DO Work Phone: [facility] 09-18-2024 08:05-0500 SaO2% (BldA) [Mass fraction] 97 % Connie Masci DO Work Phone: [facility] 09-18-2024 08:05-0500 Systolic blood pressure 103 mm[Hg] Connie Masci DO Work Phone: [facility] 08-22-2024 09:02-0400 Body mass index (BMI) [Ratio] 24.27 kg/m2 Connie Masci DO Work Phone: [facility] 08-22-2024 09:02-0400 Body temperature 98.91 [degF] Connie Masci DO Work Phone: [facility] 08-22-2024 09:02-0400 Body weight 83.92 kg Connie Masci DO Work Phone: [facility] 08-22-2024 09:02-0400 Diastolic blood pressure 70 mm[Hg] Connie Masci DO Work Phone: [facility] 08-22-2024 09:02-0400 Heart rate 68 /min Connie Masci DO Work Phone: [facility] 08-22-2024 09:02-0400 SaO2% (BldA) [Mass fraction] 99 % Connie Masci DO Work Phone: [facility] 08-22-2024 09:02-0400 Systolic blood pressure 120 mm[Hg] Connie Masci DO Work Phone: [facility] 07-25-2024 08:57-0400 Body mass index (BMI) [Ratio] 24.5 kg/m2 Bright Thao PHARMACIST CRITICAL CARE.PATTERNMAKER APPRENTICE WOOD Work Phone: [facility] 07-25-2024 08:57-0400 Body temperature 97.81 [degF] Bright Thao PHARMACIST CRITICAL CARE.PATTERNMAKER APPRENTICE WOOD Work Phone: [facility] 07-25-2024 08:57-0400 Body weight 84.7 kg [place] Thao PHARMACIST CRITICAL CARE.PATTERNMAKER APPRENTICE WOOD Work Phone: [facility] 07-25-2024 08:57-0400 Diastolic blood pressure 63 mm[Hg] Bright Thao PHARMACIST CRITICAL CARE.PATTERNMAKER APPRENTICE WOOD Work Phone: [facility] 07-25-2024 08:57-0400 Heart rate 67 /min [place] Thao PHARMACIST CRITICAL CARE.PATTERNMAKER APPRENTICE WOOD Work Phone: [facility] 07-25-2024 08:57-0400 SaO2% (BldA) [Mass fraction] 98 % Bright Thao PHARMACIST CRITICAL CARE.PATTERNMAKER APPRENTICE WOOD Work Phone: [facility] 07-25-2024 08:57-0400 Systolic blood pressure 131 mm[Hg] [place] Thao PHARMACIST CRITICAL CARE.PATTERNMAKER APPRENTICE WOOD Work Phone: [facility] 07-18-2024 13:23-0400 Body mass index (BMI) [Ratio] 24.41 kg/m2 [place] Thao PHARMACIST CRITICAL CARE.PATTERNMAKER APPRENTICE WOOD Work Phone: [facility] 07-18-2024 13:23-0400 Body temperature 97 [degF] [place] Thao PHARMACIST CRITICAL CARE.PATTERNMAKER APPRENTICE WOOD Work Phone: [facility] 07-18-2024 13:23-0400 Body weight 84.37 kg Bright Thao PHARMACIST CRITICAL CARE.PATTERNMAKER APPRENTICE WOOD Work Phone: [facility] 07-18-2024 13:23-0400 Diastolic blood pressure 76 mm[Hg] Bright Thao PHARMACIST CRITICAL CARE.PATTERNMAKER APPRENTICE WOOD Work Phone: [facility] 07-18-2024 13:23-0400 Heart rate 54 /min [place] Thao PHARMACIST CRITICAL CARE.PATTERNMAKER APPRENTICE WOOD Work Phone: [facility] 07-18-2024 13:23-0400 SaO2% (BldA) [Mass fraction] 99 % [place] Thao PHARMACIST CRITICAL CARE.PATTERNMAKER APPRENTICE WOOD Work Phone: [facility] 07-18-2024 13:23-0400 Systolic blood pressure 158 mm[Hg] Bright Thao PHARMACIST CRITICAL CARE.PATTERNMAKER APPRENTICE WOOD Work Phone: [facility] 06-27-2024 08:22-0400 Body mass index (BMI) [Ratio] 24.08 kg/m2 Connie Valeriei DO Work Phone: [facility] 06-27-2024 08:22-0400 Body temperature 98.1 [degF] Connie Masci DO Work Phone: [facility] 06-27-2024 08:22-0400 Body weight 83.23 kg Connie Masci DO Work Phone: [facility] 06-27-2024 08:22-0400 Diastolic blood pressure 66 mm[Hg] Connie Masci DO Work Phone: [facility] 06-27-2024 08:22-0400 Heart rate 62 /min Connie Masci DO Work Phone: [facility] 06-27-2024 08:22-0400 SaO2% (BldA) [Mass fraction] 99 % Connie Masci DO Work Phone: [facility] 06-27-2024 08:22-0400 Systolic blood pressure 108 mm[Hg] Connie Masci DO Work Phone: [facility] 05-29-2024 08:52-0400 Body mass index (BMI) [Ratio] 24.39 kg/m2 [place] Thao PHARMACIST CRITICAL CARE.PATTERNMAKER APPRENTICE WOOD Work Phone: [facility] 05-29-2024 08:52-0400 Body temperature 97.81 [degF] Bright Nelsonenter PHARMACIST CRITICAL CARE.PATTERNMAKER APPRENTICE WOOD Work Phone: [facility] 05-29-2024 08:52-0400 Body weight 84.3 kg Bright Thao PHARMACIST CRITICAL CARE.PATTERNMAKER APPRENTICE WOOD Work Phone: [facility] 05-29-2024 08:52-0400 Diastolic blood pressure 77 mm[Hg] [place] Thao PHARMACIST CRITICAL CARE.PATTERNMAKER APPRENTICE WOOD Work Phone: [facility] 05-29-2024 08:52-0400 Heart rate 60 /min Bright Thao PHARMACIST CRITICAL CARE.PATTERNMAKER APPRENTICE WOOD Work Phone: [facility] 05-29-2024 08:52-0400 SaO2% (BldA) [Mass fraction] 99 % Bright Thao PHARMACIST CRITICAL CARE.PATTERNMAKER APPRENTICE WOOD Work Phone: [facility] 05-29-2024 08:52-0400 Systolic blood pressure 129 mm[Hg] Bright Thao PHARMACIST CRITICAL CARE.PATTERNMAKER APPRENTICE WOOD Work Phone: [facility] 05-22-2024 08:23-0400 Body mass index (BMI) [Ratio] 24.48 kg/m2 Betsy Queener PA-C Work Phone: [facility] 05-22-2024 08:23-0400 Body weight 84.64 kg Betsy Queener PA-C Work Phone: [facility] 05-22-2024 08:23-0400 Diastolic blood pressure 61 mm[Hg] Betsy Queener PA-C Work Phone: [facility] 05-22-2024 08:23-0400 Heart rate 55 /min Betsy Queener PA-C Work Phone: [facility] 05-22-2024 08:23-0400 Respiratory rate 16 /min Betsy Queener PA-C Work Phone: [facility] 05-22-2024 08:23-0400 SaO2% (BldA) [Mass fraction] 100 % Betsy Queener PA-C Work Phone: [facility] 05-22-2024 08:23-0400 Systolic blood pressure 135 mm[Hg] Betsy Queener PA-C Work Phone: [facility] 05-02-2024 08:37-0400 Body mass index (BMI) [Ratio] 24.09 kg/m2 Bright Thao PHARMACIST CRITICAL CARE.PATTERNMAKER APPRENTICE WOOD Work Phone: [facility] 05-02-2024 08:37-0400 Body temperature 97.39 [degF] Bright Nelsonenter PHARMACIST CRITICAL CARE.PATTERNMAKER APPRENTICE WOOD Work Phone: [facility] 05-02-2024 08:37-0400 Body weight 83.28 kg Bright Nelsonenter PHARMACIST CRITICAL CARE.PATTERNMAKER APPRENTICE WOOD Work Phone: [facility] 05-02-2024 08:37-0400 Diastolic blood pressure 79 mm[Hg] Bright Nelsonenter PHARMACIST CRITICAL CARE.PATTERNMAKER APPRENTICE WOOD Work Phone: [facility] 05-02-2024 08:37-0400 Heart rate 53 /min Bright Nelsonenter PHARMACIST CRITICAL CARE.PATTERNMAKER APPRENTICE WOOD Work Phone: [facility] 05-02-2024 08:37-0400 SaO2% (BldA) [Mass fraction] 100 % Bright Nelsonenter PHARMACIST CRITICAL CARE.PATTERNMAKER APPRENTICE WOOD Work Phone: [facility] 05-02-2024 08:37-0400 Systolic blood pressure 146 mm[Hg] Bright Nelsonenter PHARMACIST CRITICAL CARE.PATTERNMAKER APPRENTICE WOOD Work Phone: [facility] 04-09-2024 15:30-0400 Body mass index (BMI) [Ratio] 24.44 kg/m2 Geoff Young MD Work Phone: [facility] 04-09-2024 15:30-0400 Body weight 84.5 kg Geoff Young MD Work Phone: [facility] 04-09-2024 15:30-0400 Diastolic blood pressure 77 mm[Hg] Geoff Young MD Work Phone: [facility] 04-09-2024 15:30-0400 Heart rate 53 /min Geoff Young MD Work Phone: [facility] 04-09-2024 15:30-0400 Respiratory rate 16 /min Geoff Young MD Work Phone: [facility] 04-09-2024 15:30-0400 SaO2% (BldA) [Mass fraction] 99 % Geoff Young MD Work Phone: [facility] 04-09-2024 15:30-0400 Systolic blood pressure 136 mm[Hg] Geoff Young MD Work Phone: [facility] 04-04-2024 08:57-0400 Body mass index (BMI) [Ratio] 24.08 kg/m2 Connie Valeriei DO Work Phone: [facility] 04-04-2024 08:57-0400 Body temperature 98.1 [degF] Connie Padillai DO Work Phone: [facility] 04-04-2024 08:57-0400 Body weight 83.23 kg Connie Padillai DO Work Phone: [facility] 04-04-2024 08:57-0400 Diastolic blood pressure 71 mm[Hg] Connie Padillai DO Work Phone: [facility] 04-04-2024 08:57-0400 Heart rate 55 /min Connie Padillai DO Work Phone: [facility] 04-04-2024 08:57-0400 SaO2% (BldA) [Mass fraction] 100 % Connie Valeriei DO Work Phone: [facility] 04-04-2024 08:57-0400 Systolic blood pressure 150 mm[Hg] Connie Valeriei DO Work Phone: [facility] 03-13-2024 12:49-0400 Body mass index (BMI) [Ratio] 23.83 kg/m2 Darline Krishnan MD Work Phone: [facility] 03-13-2024 12:49-0400 Body temperature 98.1 [degF] Darline Krishnan MD Work Phone: [facility] 03-13-2024 12:49-0400 Body weight 82.37 kg Darline Krishnan MD Work Phone: [facility] 03-13-2024 12:49-0400 Diastolic blood pressure 60 mm[Hg] Darline Krishnan MD Work Phone: [facility] 03-13-2024 12:49-0400 Heart rate 58 /min Darline Krishnan MD Work Phone: [facility] 03-13-2024 12:49-0400 Respiratory rate 16 /min Darline Krishnan MD Work Phone: [facility] 03-13-2024 12:49-0400 SaO2% (BldA) [Mass fraction] 98 % Darline Krishnan MD Work Phone: [facility] 03-13-2024 12:49-0400 Systolic blood pressure 126 mm[Hg] Darline Krishnan MD Work Phone: [facility] 03-07-2024 08:45-0400 Body mass index (BMI) [Ratio] 23.95 kg/m2 Connie Masci DO Work Phone: [facility] 03-07-2024 08:45-0400 Body temperature 98.71 [degF] Connie Masci DO Work Phone: [facility] 03-07-2024 08:45-0400 Body weight 82.78 kg Connie Masci DO Work Phone: [facility] 03-07-2024 08:45-0400 Diastolic blood pressure 64 mm[Hg] Connie Masci DO Work Phone: [facility] 03-07-2024 08:45-0400 Heart rate 99 /min Connie Masci DO Work Phone: [facility] 03-07-2024 08:45-0400 SaO2% (BldA) [Mass fraction] 100 % Connie Masci DO Work Phone: [facility] 03-07-2024 08:45-0400 Systolic blood pressure 106 mm[Hg] Connie Masci DO Work Phone: [facility] 02-08-2024 09:26-0400 Body temperature 98.49 [degF] Connie Masci DO Work Phone: [facility] 02-08-2024 09:26-0400 Body weight 80.74 kg Connie Mccain DO Work Phone: [facility] 02-08-2024 09:26-0400 Diastolic blood pressure 78 mm[Hg] Connie Valeriei DO Work Phone: [facility] 02-08-2024 09:26-0400 Heart rate 68 /min Connie Valeriei DO Work Phone: [facility] 02-08-2024 09:26-0400 Respiratory rate 14 /min Connie Valeriei DO Work Phone: [facility] 02-08-2024 09:26-0400 SaO2% (BldA) [Mass fraction] 99 % Connie Rush DO Work Phone: [facility] 02-08-2024 09:26-0400 Systolic blood pressure 130 mm[Hg] Connie Valeriei DO Work Phone: [facility] 02-02-2024 15:41-0400 Body temperature 98.5 [degF] Dr. Connie Lugo Work Phone: [facility] 02-02-2024 15:41-0400 Diastolic blood pressure 76 mm[Hg] Dr. Connie Lugo Work Phone: [facility] 02-02-2024 15:41-0400 Heart rate 64 /min Dr. Connie Lugo Work Phone: [facility] 02-02-2024 15:41-0400 Respiratory rate 16 /min Dr. Connie Lugo Work Phone: [facility] 02-02-2024 15:41-0400 SaO2% (BldA) [Mass fraction] 97 % Dr. Connie Lugo Work Phone: [facility] 02-02-2024 15:41-0400 Systolic blood pressure 151 mm[Hg] Dr. Connie Lugo Work Phone: [facility] 02-02-2024 03:38-0400 Body mass index (BMI) [Ratio] 24.3 kg/m2 Dr. Connie Lugo Work Phone: [facility] 02-02-2024 03:38-0400 Body weight 81.[address] Connie Lugo Work Phone: [facility] 02-01-2024 11:17-0400 Body height 182.[address] Connie Lugo Work Phone: [facility] 01-31-2024 23:00-0400 Body temperature 99.3 [degF] Dr. Connie Lugo Work Phone: [facility] 01-31-2024 23:00-0400 Diastolic blood pressure 64 mm[Hg] Dr. Connie Lugo Work Phone: [facility] 01-31-2024 23:00-0400 Heart rate 70 /min Dr. Connie Lugo Work Phone: [phone] [place] [address] 01-31-2024 23:00-0400 Respiratory rate 20 /min Dr. Connie Lugo Work Phone: [facility] 01-31-2024 23:00-0400 SaO2% (BldA) [Mass fraction] 99 % Dr. Connie Lugo Work Phone: [facility] 01-31-2024 23:00-0400 Systolic blood pressure 138 mm[Hg] Dr. Connie Lugo Work Phone: [facility] 01-31-2024 17:26-0400 Body height 185.[address] Connie Lugo Work Phone: [facility] 01-31-2024 17:26-0400 Body mass index (BMI) [Ratio] 23.8 kg/m2 Dr. Connie Lugo Work Phone: [facility] 01-31-2024 17:26-0400 Body weight 81.[address] Connie Lugo Work Phone: [facility] 01-27-2024 11:24-0400 Body temperature 98.2 [degF] Dr. Connie Lugo Work Phone: [facility] 01-27-2024 11:24-0400 Diastolic blood pressure 76 mm[Hg] Dr. Connie Lugo Work Phone: [facility] 01-27-2024 11:24-0400 Heart rate 71 /min Dr. Connie Lugo Work Phone: [facility] 01-27-2024 11:24-0400 Respiratory rate 16 /min Dr. Connie Lugo Work Phone: [facility] 01-27-2024 11:24-0400 SaO2% (BldA) [Mass fraction] 97 % Dr. Connie Lugo Work Phone: [facility] 01-27-2024 11:24-0400 Systolic blood pressure 128 mm[Hg] Dr. Connie Lugo Work Phone: [facility] 01-27-2024 08:52-0400 Body height 185.[address] Connie Lugo Work Phone: [facility] 01-27-2024 08:52-0400 Body mass index (BMI) [Ratio] 24 kg/m2 Dr. Connie Lugo Work Phone: [facility] 01-27-2024 08:52-0400 Body weight 82.[address] Connie Lugo Work Phone: [facility] 01-11-2024 09:15-0400 Body temperature 98.6 [degF] Connie Mccain DO Work Phone: [facility] 01-11-2024 09:15-0400 Body weight 86.41 kg Connie Mccain DO Work Phone: [facility] 01-11-2024 09:15-0400 Diastolic blood pressure 67 mm[Hg] Connie Mccain DO Work Phone: [facility] 01-11-2024 09:15-0400 Heart rate 65 /min Connie Mccain DO Work Phone: [facility] 01-11-2024 09:15-0400 SaO2% (BldA) [Mass fraction] 100 % Connie Mccain DO Work Phone: [facility] 01-11-2024 09:15-0400 Systolic blood pressure 127 mm[Hg] Connie Masci DO Work Phone: [facility] 12-22-2023 07:55-0500 Body height 185.9 cm Martha Leone MD Work Phone: [facility] 12-22-2023 07:55-0500 Body weight 83.8 kg Martha Leone MD Work Phone: [facility] 12-22-2023 07:55-0500 Diastolic blood pressure 66 mm[Hg] Martha Leone MD Work Phone: [facility] 12-22-2023 07:55-0500 Heart rate 70 /min Martha Leone MD Work Phone: [facility] 12-22-2023 07:55-0500 Respiratory rate 20 /min Martha Leone MD Work Phone: [facility] 12-22-2023 07:55-0500 SaO2% (BldA) [Mass fraction] 100 % Martha Leone MD Work Phone: [facility] 12-22-2023 07:55-0500 Systolic blood pressure 104 mm[Hg] Martha Leone MD Work Phone: [facility] 12-14-2023 07:58-0500 Body temperature 98.91 [degF] Connie Masci DO Work Phone: [facility] 12-14-2023 07:58-0500 Body weight 83.01 kg Connie Masci DO Work Phone: [facility] 12-14-2023 07:58-0500 Diastolic blood pressure 67 mm[Hg] Connie Masci DO Work Phone: [facility] 12-14-2023 07:58-0500 Heart rate 69 /min Connie Masci DO Work Phone: [facility] 12-14-2023 07:58-0500 SaO2% (BldA) [Mass fraction] 98 % Connie Masci DO Work Phone: [facility] 12-14-2023 07:58-0500 Systolic blood pressure 114 mm[Hg] Connie Mccain DO Work Phone: [facility] 11-27-2023 18:55-0500 Diastolic blood pressure 68 mm[Hg] [facility] 11-27-2023 18:55-0500 Heart rate 51 /min [facility] 11-27-2023 18:55-0500 Respiratory rate 16 /min [facility] 11-27-2023 18:55-0500 SaO2% (BldA) [Mass fraction] 99 % [facility] 11-27-2023 18:55-0500 Systolic blood pressure 158 mm[Hg] [facility] 11-27-2023 13:58-0500 Body height 182.88 cm [facility] 11-27-2023 13:58-0500 Body mass index (BMI) [Ratio] 25.6 kg/m2 [facility] 11-27-2023 13:58-0500 Body temperature 96.5 [degF] [facility] 11-27-2023 13:58-0500 Body weight 85.68 kg [facility] 09-21-2023 08:41-0500 Body temperature 98.2 [degF] Bright Thao PHARMACIST CRITICAL CARE.PATTERNMAKER APPRENTICE WOOD Work Phone: [facility] 09-21-2023 08:41-0500 Body weight 83.23 kg [place] Thao PHARMACIST CRITICAL CARE.PATTERNMAKER APPRENTICE WOOD Work Phone: [facility] 09-21-2023 08:41-0500 Diastolic blood pressure 75 mm[Hg] [place] Thao PHARMACIST CRITICAL CARE.PATTERNMAKER APPRENTICE WOOD Work Phone: [facility] 09-21-2023 08:41-0500 Heart rate 68 /min [place] Thao PHARMACIST CRITICAL CARE.PATTERNMAKER APPRENTICE WOOD Work Phone: [facility] 09-21-2023 08:41-0500 SaO2% (BldA) [Mass fraction] 99 % Bright Thao PHARMACIST CRITICAL CARE.PATTERNMAKER APPRENTICE WOOD Work Phone: [facility] 09-21-2023 08:41-0500 Systolic blood pressure 123 mm[Hg] Bright Thao PHARMACIST CRITICAL CARE.PATTERNMAKER APPRENTICE WOOD Work Phone: [facility] 07-24-2023 13:04-0400 Diastolic blood pressure 82 mm[Hg] Connie Masci DO Work Phone: [facility] 07-24-2023 13:04-0400 Heart rate 78 /min Connie Masci DO Work Phone: [facility] 07-24-2023 13:04-0400 Systolic blood pressure 120 mm[Hg] Connie Masci DO Work Phone: [facility] 07-24-2023 12:32-0400 Body temperature 97.9 [degF] Connie Masci DO Work Phone: [facility] 07-24-2023 12:32-0400 Body weight 80.74 kg Connie Masci DO Work Phone: [facility] 07-10-2023 13:41-0400 Body temperature 97.7 [degF] Darline Krishnan MD Work Phone: [facility] 07-10-2023 13:41-0400 Diastolic blood pressure 65 mm[Hg] Darline Krishnan MD Work Phone: [facility] 07-10-2023 13:41-0400 Heart rate 79 /min Darline Krishnan MD Work Phone: [facility] 07-10-2023 13:41-0400 Respiratory rate 20 /min Darline Krishnan MD Work Phone: [facility] 07-10-2023 13:41-0400 SaO2% (BldA) [Mass fraction] 100 % Darline Krishnan MD Work Phone: [facility] 07-10-2023 13:41-0400 Systolic blood pressure 124 mm[Hg] Darline Krishnan MD Work Phone: [facility] 07-07-2023 12:58-0400 Body weight 81.74 kg Benjamin Mott MD Work Phone: [facility] 07-07-2023 12:58-0400 Diastolic blood pressure 76 mm[Hg] Benjamin Mott MD Work Phone: [facility] 07-07-2023 12:58-0400 Heart rate 86 /min Benjamin Mott MD Work Phone: [facility] 07-07-2023 12:58-0400 Systolic blood pressure 126 mm[Hg] Benjamin Mott MD Work Phone: [facility] 06-21-2023 08:50-0400 Body temperature 97.81 [degF] Chair East Work Phone: [facility] 06-21-2023 08:50-0400 Respiratory rate 18 /min Chair East Work Phone: [facility] 06-19-2023 13:32-0400 Body temperature 98.2 [degF] Chair East Work Phone: [facility] 06-19-2023 13:32-0400 Body weight 83.1 kg Chair East Work Phone: [facility] 06-19-2023 13:32-0400 Diastolic blood pressure 65 mm[Hg] Chair East Work Phone: [facility] 06-19-2023 13:32-0400 Heart rate 79 /min Chair East Work Phone: [facility] 06-19-2023 13:32-0400 Respiratory rate 18 /min Chair East Work Phone: [facility] 06-19-2023 13:32-0400 Systolic blood pressure 137 mm[Hg] Chair East Work Phone: [facility] 05-17-2023 07:30-0400 Body temperature 97.5 [degF] [facility] Work Phone: [facility] 05-17-2023 07:30-0400 Diastolic blood pressure 60 mm[Hg] [facility] Work Phone: [facility] 05-17-2023 07:30-0400 Heart rate 80 /min [facility] Work Phone: [facility] 05-17-2023 07:30-0400 Respiratory rate 18 /min [facility] Work Phone: [facility] 05-17-2023 07:30-0400 SaO2% (BldA) [Mass fraction] 95 % [facility] Work Phone: [facility] 05-17-2023 07:30-0400 Systolic blood pressure 135 mm[Hg] [facility] Work Phone: [facility] 05-03-2023 11:10-0400 Body height 182.5 cm Earl Simpson MD Work Phone: [facility] 05-03-2023 11:10-0400 Body temperature 98.01 [degF] Earl Simpson MD Work Phone: [facility] 05-03-2023 11:10-0400 Body weight 86.32 kg Earl Simpson MD Work Phone: [facility] 05-03-2023 11:10-0400 Diastolic blood pressure 79 mm[Hg] Earl Simpson MD Work Phone: [facility] 05-03-2023 11:10-0400 Heart rate 62 /min Earl Simpson MD Work Phone: [facility] 05-03-2023 11:10-0400 Respiratory rate 18 /min Earl Simpson MD Work Phone: [facility] 05-03-2023 11:10-0400 SaO2% (BldA) [Mass fraction] 99 % Earl Simpson MD Work Phone: [facility] 05-03-2023 11:10-0400 Systolic blood pressure 165 mm[Hg] Earl Simpson MD Work Phone: [facility] 04-28-2023 10:10-0400 Body temperature 97.3 [degF] Treatment Wstr Work Phone: [facility] 04-28-2023 10:10-0400 Body weight 88.45 kg Treatment Wstr Work Phone: [place] [address]-07-2023 10:10-0400 Diastolic blood pressure 67 mm[Hg] Treatment Wstr Work Phone: [facility] 04-28-2023 10:10-0400 Heart rate 66 /min Treatment Wstr Work Phone: [facility] 04-28-2023 10:10-0400 Systolic blood pressure 122 mm[Hg] Treatment Wstr Work Phone: [facility] 04-24-2023 13:00-0400 Body temperature 97.81 [degF] Treatment Wstr Work Phone: [facility] 04-24-2023 13:00-0400 Diastolic blood pressure 64 mm[Hg] Treatment Wstr Work Phone: [facility] 04-24-2023 13:00-0400 Heart rate 62 /min Treatment Wstr Work Phone: [facility] 04-24-2023 13:00-0400 Respiratory rate 16 /min Treatment Wstr Work Phone: [facility] 04-24-2023 13:00-0400 SaO2% (BldA) [Mass fraction] 100 % Treatment Wstr Work Phone: [facility] 04-24-2023 13:00-0400 Systolic blood pressure 148 mm[Hg] Treatment Wstr Work Phone: [facility] 04-21-2023 14:25-0400 Body temperature 99.19 [degF] Treatment Wstr Work Phone: [facility] 04-21-2023 14:25-0400 Body weight 86.18 kg Treatment Wstr Work Phone: [facility] 04-21-2023 14:25-0400 Diastolic blood pressure 69 mm[Hg] Treatment Wstr Work Phone: [facility] 04-21-2023 14:25-0400 Heart rate 71 /min Treatment Wstr Work Phone: [facility] 04-21-2023 14:25-0400 SaO2% (BldA) [Mass fraction] 100 % Treatment Wstr Work Phone: [facility] 04-21-2023 14:25-0400 Systolic blood pressure 126 mm[Hg] Treatment Wstr Work Phone: [facility] 04-19-2023 10:08-0400 Diastolic blood pressure 72 mm[Hg] Bmbx 1 Work Phone: [facility] 04-19-2023 10:08-0400 Heart rate 58 /min Bmbx 1 Work Phone: [facility] 04-19-2023 10:08-0400 Respiratory rate 18 /min Bmbx 1 Work Phone: [facility] 04-19-2023 10:08-0400 Systolic blood pressure 148 mm[Hg] Bmbx 1 Work Phone: [facility] 04-18-2023 11:37-0400 Body temperature 98.49 [degF] Bright Thao PHARMACIST CRITICAL CARE.[employer]TERN[employer]KER APPRENTICE [employer] Work Phone: [facility] 04-18-2023 11:37-0400 Body weight 88 kg Bright Thao PHARMACIST CRITICAL CARE.PATTERNMAKER APPRENTICE WO[employer] Work Phone: [facility] 04-18-2023 11:37-0400 Diastolic blood pressure 69 mm[Hg] Bright Thao PHARMACIST CRITICAL CARE.PATTERNMAKER APPRENTICE [employer] Work Phone: [facility] 04-18-2023 11:37-0400 Heart rate 71 /min Bright Thao PHARMACIST CRITICAL CARE.PATTERNMAKER APPRENTICE WO[employer] Work Phone: [facility] 04-18-2023 11:37-0400 SaO2% (BldA) [Mass fraction] 96 % Bright Thao PHARMACIST CRITICAL CARE.PATTERNMAKER APPRENTICE WOOD Work Phone: [facility] 04-18-2023 11:37-0400 Systolic blood pressure 124 mm[Hg] Bright Thao PHARMACIST CRITICAL CARE.PATTERNMAKER APPRENTICE WOOD Work Phone: [facility] 04-17-2023 16:03-0400 Body temperature 97.2 [degF] Tesfaye Reveles PHARMACIST CRITICAL CARE.PATTERNMAKER APPRENTICE WOOD Work Phone: [facility] 04-17-2023 16:03-0400 Body weight 88.22 kg Tesfaye Reveles APRN.PATTERNMAKER APPRENTICE WO[employer] Work Phone: [facility] 04-17-2023 16:03-0400 Diastolic blood pressure 82 mm[Hg] Tesfaye Reveles PHARMACIST CRITICAL CARE.PATTERNMAKER APPRENTICE WOOD Work Phone: [facility] 04-17-2023 16:03-0400 Heart rate 51 /min Tesfaye Rveeles PHARMACIST CRITICAL CARE.PATTERNMAKER APPRENTICE WOOD Work Phone: [facility] 04-17-2023 16:03-0400 Respiratory rate 18 /min Tesfaye Reveles PHARMACIST CRITICAL CARE.PATTERNMAKER APPRENTICE WO[employer] Work Phone: [facility] 04-17-2023 16:03-0400 SaO2% (BldA) [Mass fraction] 100 % Tesfaye Reveles APRN.PATTERNMAKER APPRENTICE WOOD Work Phone: [facility] 04-17-2023 16:03-0400 Systolic blood pressure 170 mm[Hg] Tesfaye Reveles PHARMACIST CRITICAL CARE.PATTERNMAKER APPRENTICE WOOD Work Phone: [facility] 04-11-2023 13:04-0400 Body temperature 97.59 [degF] Treatment Wstr Work Phone: [facility] 04-11-2023 13:04-0400 Diastolic blood pressure 66 mm[Hg] Treatment Wstr Work Phone: [facility] 04-11-2023 13:04-0400 Heart rate 74 /min Treatment Wstr Work Phone: [facility] 04-11-2023 13:04-0400 SaO2% (BldA) [Mass fraction] 100 % Treatment Wstr Work Phone: [facility] 04-11-2023 13:04-0400 Systolic blood pressure 128 mm[Hg] Treatment Wstr Work Phone: [facility] 04-07-2023 08:57-0400 Body temperature 97.39 [degF] Treatment Wstr Work Phone: [facility] 04-07-2023 08:57-0400 Body weight 88.68 kg Treatment Wstr Work Phone: [facility] 04-07-2023 08:57-0400 Diastolic blood pressure 58 mm[Hg] Treatment Wstr Work Phone: [facility] 04-07-2023 08:57-0400 Heart rate 63 /min Treatment Wstr Work Phone: [facility] 04-07-2023 08:57-0400 Systolic blood pressure 135 mm[Hg] Treatment Wstr Work Phone: [facility] 03-28-2023 10:30-0400 Body temperature 98.29 [degF] [place] Thao PHARMACIST CRITICAL CARE.PATTERNMAKER APPRENTICE WO[employer] Work Phone: [facility] 03-28-2023 10:30-0400 Body weight 87.77 kg [place] Thao PHARMACIST CRITICAL CARE.PATTERNMAKER APPRENTICE WOOD Work Phone: [facility] 03-28-2023 10:30-0400 Diastolic blood pressure 80 mm[Hg] [place] Thao PHARMACIST CRITICAL CARE.PATTERNMAKER APPRENTICE WOOD Work Phone: [facility] 03-28-2023 10:30-0400 Heart rate 63 /min Bright Thao PHARMACIST CRITICAL CARE.PATTERNMAKER APPRENTICE WOOD Work Phone: [facility] 03-28-2023 10:30-0400 Respiratory rate 16 /min Bright Thao PHARMACIST CRITICAL CARE.PATTERNMAKER APPRENTICE WOOD Work Phone: [facility] 03-28-2023 10:30-0400 SaO2% (BldA) [Mass fraction] 100 % Bright Thao PHARMACIST CRITICAL CARE.PATTERNMAKER APPRENTICE WOOD Work Phone: [facility] 03-28-2023 10:30-0400 Systolic blood pressure 149 mm[Hg] Bright Thao PHARMACIST CRITICAL CARE.PATTERNMAKER APPRENTICE WOOD Work Phone: [facility] 03-21-2023 10:30-0400 Body temperature 98.4 [degF] Treatment Wstr Work Phone: [facility] 03-21-2023 10:30-0400 Diastolic blood pressure 63 mm[Hg] Treatment Wstr Work Phone: [facility] 03-21-2023 10:30-0400 Heart rate 78 /min Treatment Wstr Work Phone: [facility] 03-21-2023 10:30-0400 Respiratory rate 16 /min Treatment Wstr Work Phone: [facility] 03-21-2023 10:30-0400 SaO2% (BldA) [Mass fraction] 97 % Treatment Wstr Work Phone: [facility] 03-21-2023 10:30-0400 Systolic blood pressure 136 mm[Hg] Treatment Wstr Work Phone: [facility] 02-28-2023 10:10-0400 Body temperature 98.49 [degF] Connie Masci DO Work Phone: [facility] 02-28-2023 10:10-0400 Body weight 88.22 kg Connie Masci DO Work Phone: [facility] 02-28-2023 10:10-0400 Diastolic blood pressure 73 mm[Hg] Connie Masci DO Work Phone: [facility] 02-28-2023 10:10-0400 Heart rate 65 /min Connie Masci DO Work Phone: [facility] 02-28-2023 10:10-0400 SaO2% (BldA) [Mass fraction] 99 % Connie Masci DO Work Phone: [facility] 02-28-2023 10:10-0400 Systolic blood pressure 136 mm[Hg] Connie Masci DO Work Phone: [facility] 02-15-2023 14:23-0400 Body temperature 97.59 [degF] Treatment Wstr Work Phone: [facility] 02-15-2023 14:23-0400 Body weight 87.77 kg Treatment Wstr Work Phone: [facility] 02-15-2023 14:23-0400 Diastolic blood pressure 69 mm[Hg] Treatment Wstr Work Phone: [facility] 02-15-2023 14:23-0400 Heart rate 75 /min Treatment Wstr Work Phone: [facility] 02-15-2023 14:23-0400 Systolic blood pressure 152 mm[Hg] Treatment Wstr Work Phone: [facility] 02-13-2023 12:21-0400 Body height 184.1 cm Earl Simpson MD Work Phone: [facility] 02-13-2023 12:21-0400 Body temperature 98.2 [degF] Earl Simpson MD Work Phone: [facility] 02-13-2023 12:21-0400 Body weight 86.18 kg Earl Simpson MD Work Phone: [facility] 02-13-2023 12:21-0400 Diastolic blood pressure 77 mm[Hg] Earl Simpson MD Work Phone: [facility] 02-13-2023 12:21-0400 Heart rate 61 /min Earl Simpson MD Work Phone: [facility] 02-13-2023 12:21-0400 Respiratory rate 18 /min Earl Simpson MD Work Phone: [facility] 02-13-2023 12:21-0400 SaO2% (BldA) [Mass fraction] 100 % Earl Simpson MD Work Phone: [facility] 02-13-2023 12:21-0400 Systolic blood pressure 152 mm[Hg] Earl Simpson MD Work Phone: [facility] 02-08-2023 14:00-0400 Body temperature 98.4 [degF] Treatment Wstr Work Phone: [facility] 02-08-2023 14:00-0400 Diastolic blood pressure 69 mm[Hg] Treatment Wstr Work Phone: [facility] 02-08-2023 14:00-0400 Heart rate 72 /min Treatment Wstr Work Phone: [facility] 02-08-2023 14:00-0400 Respiratory rate 16 /min Treatment Wstr Work Phone: [facility] 02-08-2023 14:00-0400 SaO2% (BldA) [Mass fraction] 98 % Treatment Wstr Work Phone: [facility] 02-08-2023 14:00-0400 Systolic blood pressure 135 mm[Hg] Treatment Wstr Work Phone: [facility] 02-01-2023 12:42-0400 Diastolic blood pressure 61 mm[Hg] Treatment Wstr Work Phone: [facility] 02-01-2023 12:42-0400 Heart rate 67 /min Treatment Wstr Work Phone: [facility] 02-01-2023 12:42-0400 Systolic blood pressure 128 mm[Hg] Treatment Wstr Work Phone: [facility] 02-01-2023 07:00-0400 Body temperature 98.2 [degF] Treatment Wstr Work Phone: [facility] 01-31-2023 10:29-0400 Body temperature 98.8 [degF] Connie Masci DO Work Phone: [facility] 01-31-2023 10:29-0400 Body weight 86.86 kg Connie Masci DO Work Phone: [facility] 01-31-2023 10:29-0400 Diastolic blood pressure 74 mm[Hg] Connie Masci DO Work Phone: [facility] 01-31-2023 10:29-0400 Heart rate 60 /min Connie Masci DO Work Phone: [facility] 01-31-2023 10:29-0400 SaO2% (BldA) [Mass fraction] 100 % Connie Masci DO Work Phone: [facility] 01-31-2023 10:29-0400 Systolic blood pressure 138 mm[Hg] Connie Masci DO Work Phone: [facility] 01-18-2023 14:10-0400 Body temperature 97.39 [degF] Connie Masci DO Work Phone: [facility] 01-18-2023 14:10-0400 Body weight 87.09 kg Connie Valeriei DO Work Phone: [facility] 01-18-2023 14:10-0400 Diastolic blood pressure 79 mm[Hg] Connie Valeriei DO Work Phone: [facility] 01-18-2023 14:10-0400 Heart rate 82 /min Connie Valeriei DO Work Phone: [facility] 01-18-2023 14:10-0400 SaO2% (BldA) [Mass fraction] 99 % Connie Valeriei DO Work Phone: [facility] 01-18-2023 14:10-0400 Systolic blood pressure 127 mm[Hg] Connie Padillai DO Work Phone: [facility] 01-17-2023 15:00-0400 Body temperature 97.8 [degF] Dr. Connie Lugo Work Phone: [facility] 01-17-2023 15:00-0400 Diastolic blood pressure 56 mm[Hg] Dr. Connie Lugo Work Phone: [facility] 01-17-2023 15:00-0400 Heart rate 82 /min Dr. Connie Lugo Work Phone: [facility] 01-17-2023 15:00-0400 Respiratory rate 18 /min Dr. Connie Lugo Work Phone: [facility] 01-17-2023 15:00-0400 SaO2% (BldA) [Mass fraction] 97 % Dr. Connie Lugo Work Phone: [facility] 01-17-2023 15:00-0400 Systolic blood pressure 105 mm[Hg] Dr. Connie Lugo Work Phone: [facility] 01-17-2023 09:02-0400 Inhaled oxygen flow rate 2 L/min Dr. Connie Lugo Work Phone: [facility] 01-16-2023 16:02-0400 Body height 182.[address] Connie Lugo Work Phone: [facility] 01-16-2023 16:02-0400 Body mass index (BMI) [Ratio] 26.4 kg/m2 Dr. Connie Lugo Work Phone: [facility] 01-16-2023 16:02-0400 Body weight 88.[address] Connie Lugo Work Phone: [facility] 01-16-2023 14:31-0400 Diastolic blood pressure 75 mm[Hg] Dr. Connie Lugo Work Phone: [facility] 01-16-2023 14:31-0400 Heart rate 71 /min Dr. Connie Lugo Work Phone: [facility] 01-16-2023 14:31-0400 Respiratory rate 20 /min Dr. Connie Lugo Work Phone: [facility] 01-16-2023 14:31-0400 SaO2% (BldA) [Mass fraction] 96 % Dr. Connie Lugo Work Phone: [facility] 01-16-2023 14:31-0400 Systolic blood pressure 123 mm[Hg] Dr. Connie Lugo Work Phone: [facility] 01-16-2023 14:03-0400 Body temperature 97.9 [degF] Dr. Connie Lugo Work Phone: [facility] 01-16-2023 11:40-0400 Inhaled oxygen flow rate 95 L/min Dr. Connie Lugo Work Phone: [facility] 01-16-2023 09:59-0400 Body height 182.[address] Connie Lugo Work Phone: [facility] 01-16-2023 09:59-0400 Body mass index (BMI) [Ratio] 26.7 kg/m2 Dr. Connie Lugo Work Phone: [facility] 01-16-2023 09:59-0400 Body weight 89.[address] Connie Lugo Work Phone: [facility] 01-11-2023 14:00-0400 Body temperature 97.81 [degF] Treatment Wstr Work Phone: [facility] 01-11-2023 14:00-0400 Diastolic blood pressure 81 mm[Hg] Treatment Wstr Work Phone: [facility] 01-11-2023 14:00-0400 Heart rate 89 /min Treatment Wstr Work Phone: [facility] 01-11-2023 14:00-0400 Systolic blood pressure 148 mm[Hg] Treatment Wstr Work Phone: [facility] 01-04-2023 14:22-0400 Body temperature 97.7 [degF] Treatment Wstr Work Phone: [facility] 01-04-2023 14:22-0400 Diastolic blood pressure 73 mm[Hg] Treatment Wstr Work Phone: [facility] 01-04-2023 14:22-0400 Heart rate 66 /min Treatment Wstr Work Phone: [facility] 01-04-2023 14:22-0400 Systolic blood pressure 138 mm[Hg] Treatment Wstr Work Phone: [facility] 01-03-2023 10:45-0400 Body temperature 98.8 [degF] Connie Masci DO Work Phone: [facility] 01-03-2023 10:45-0400 Body weight 90.27 kg Connie Masci DO Work Phone: [facility] 01-03-2023 10:45-0400 Diastolic blood pressure 88 mm[Hg] Connie Masci DO Work Phone: [facility] 01-03-2023 10:45-0400 Heart rate 81 /min Connie Masci DO Work Phone: [facility] 01-03-2023 10:45-0400 SaO2% (BldA) [Mass fraction] 98 % Connie Masci DO Work Phone: [facility] 01-03-2023 10:45-0400 Systolic blood pressure 152 mm[Hg] Connie Masci DO Work Phone: [facility] 12-21-2022 14:09-0500 Body temperature 97.11 [degF] Treatment Wstr Work Phone: [facility] 12-21-2022 14:09-0500 Body weight 90.72 kg Treatment Wstr Work Phone: [facility] 12-21-2022 14:09-0500 Diastolic blood pressure 73 mm[Hg] Treatment Wstr Work Phone: [facility] 12-21-2022 14:09-0500 Heart rate 74 /min Treatment Wstr Work Phone: [facility] 12-21-2022 14:09-0500 Systolic blood pressure 147 mm[Hg] Treatment Wstr Work Phone: [facility] 12-16-2022 18:27-0500 Respiratory rate 16 /min Dr. Connie Lugo Work Phone: [facility] 12-16-2022 15:23-0500 Body height 185.[address] Connie Lugo Work Phone: [facility] 12-16-2022 15:23-0500 Body mass index (BMI) [Ratio] 25.3 kg/m2 Dr. Connie Lugo Work Phone: [facility] 12-16-2022 15:23-0500 Body temperature 97.3 [degF] Dr. Connie Lugo Work Phone: [facility] 12-16-2022 15:23-0500 Body weight 87.[address] Connie Lugo Work Phone: [facility] 12-16-2022 15:23-0500 Diastolic blood pressure 76 mm[Hg] Dr. Connie Lugo Work Phone: [facility] 12-16-2022 15:23-0500 Heart rate 64 /min Dr. Connie Lugo Work Phone: [facility] 12-16-2022 15:23-0500 SaO2% (BldA) [Mass fraction] 97 % Dr. Connie Lugo Work Phone: [facility] 12-16-2022 15:23-0500 Systolic blood pressure 143 mm[Hg] Dr. Connie Lugo Work Phone: [facility] 12-06-2022 09:00-0500 Body temperature 98.6 [degF] Connie Padillai DO Work Phone: [facility] 12-06-2022 09:00-0500 Body weight 90.72 kg Connie Masci DO Work Phone: [facility] 12-06-2022 09:00-0500 Diastolic blood pressure 80 mm[Hg] Connie Valeriei DO Work Phone: [facility] 12-06-2022 09:00-0500 Heart rate 66 /min Connie Padillai DO Work Phone: [facility] 12-06-2022 09:00-0500 SaO2% (BldA) [Mass fraction] 98 % Connie Valeriei DO Work Phone: [facility] 12-06-2022 09:00-0500 Systolic blood pressure 133 mm[Hg] Connie Valeriei DO Work Phone: [facility] 11-23-2022 13:00-0500 Body temperature 98.1 [degF] Treatment Wstr Work Phone: [facility] 11-23-2022 13:00-0500 Diastolic blood pressure 75 mm[Hg] Treatment Wstr Work Phone: [facility] 11-23-2022 13:00-0500 Heart rate 72 /min Treatment Wstr Work Phone: [facility] 11-23-2022 13:00-0500 Systolic blood pressure 164 mm[Hg] Treatment Wstr Work Phone: [facility] 11-16-2022 08:00-0500 Body temperature 98.4 [degF] Treatment Wstr Work Phone: [facility] 11-16-2022 08:00-0500 Diastolic blood pressure 76 mm[Hg] Treatment Wstr Work Phone: [facility] 11-16-2022 08:00-0500 Heart rate 75 /min Treatment Wstr Work Phone: [facility] 11-16-2022 08:00-0500 Systolic blood pressure 159 mm[Hg] Treatment Wstr Work Phone: [facility] 10-26-2022 15:20-0500 Body temperature 97.9 [degF] Connie Masci DO Work Phone: [facility] 10-26-2022 15:20-0500 Body weight 92.76 kg Connie Masci DO Work Phone: [facility] 10-26-2022 15:20-0500 Diastolic blood pressure 100 mm[Hg] Connie Masci DO Work Phone: [facility] 10-26-2022 15:20-0500 Heart rate 67 /min Connie Masci DO Work Phone: [facility] 10-26-2022 15:20-0500 Systolic blood pressure 170 mm[Hg] Connie Masci DO Work Phone: [facility] 09-21-2022 10:27-0500 Body temperature 99.1 [degF] [employer] Jair Hellinger [employer] Work Phone: [facility] 09-21-2022 10:27-0500 Diastolic blood pressure 64 mm[Hg] [employer] Jair Hellinger [employer] Work Phone: [facility] 09-21-2022 10:27-0500 Heart rate 64 /min [employer] Jair Hellinger [employer] Work Phone: [facility] 09-21-2022 10:27-0500 Respiratory rate 18 /min [employer] Jair Hellinger [employer] Work Phone: [facility] 09-21-2022 10:27-0500 SaO2% (BldA) [Mass fraction] 97 % [employer] Jair Hellinger [employer] Work Phone: [facility] 09-21-2022 10:27-0500 Systolic blood pressure 122 mm[Hg] [employer] Jair Parikh [employer] Work Phone: [facility] 09-21-2022 08:53-0500 Body height 185.42 cm [employer] Jair Parikh [employer] Work Phone: [facility] Work Phone: 09-21-2022 08:53-0500 Body mass index (BMI) [Ratio] 25.9 kg/m2 [employer] Jair Parikh [employer] Work Phone: [facility] 09-21-2022 08:53-0500 Body weight 89.35 kg [employer] Jair Parikh [employer] Work Phone: [facility] 08-26-2022 07:48-0400 Body temperature 97.7 [degF] Treatment Wstr Work Phone: [facility] 08-26-2022 07:48-0400 Diastolic blood pressure 83 mm[Hg] Treatment Wstr Work Phone: [facility] 08-26-2022 07:48-0400 Heart rate 62 /min Treatment Wstr Work Phone: [facility] 08-26-2022 07:48-0400 Systolic blood pressure 148 mm[Hg] Treatment Wstr Work Phone: [facility] 08-08-2022 11:17-0400 Body height 183.8 cm Connie Masci DO Work Phone: [facility] 08-08-2022 11:17-0400 Body temperature 98.1 [degF] Connie Masci DO Work Phone: [facility] 08-08-2022 11:17-0400 Body weight 90.04 kg Connie Masci DO Work Phone: [facility] 08-08-2022 11:17-0400 Diastolic blood pressure 97 mm[Hg] Connie Masci DO Work Phone: [facility] 08-08-2022 11:17-0400 Heart rate 67 /min Connie Masci DO Work Phone: [facility] 08-08-2022 11:17-0400 SaO2% (BldA) [Mass fraction] 99 % Connie Mccain DO Work Phone: [facility] 08-08-2022 11:17-0400 Systolic blood pressure 197 mm[Hg] Connie Mccain DO Work Phone: [facility] 04-21-2022 15:51-0400 Body mass index (BMI) [Ratio] 24.8 kg/m2 [employer] Jair Hellinger [employer] Work Phone: [facility] Work Phone: 04-21-2022 15:00-0400 Body temperature 98 [degF] [employer] Jair Hellinger [employer] Work Phone: [facility] Work Phone: 04-21-2022 15:00-0400 Diastolic blood pressure 68 mm[Hg] [employer] Jair Hellinger [employer] Work Phone: [facility] Work Phone: 04-21-2022 15:00-0400 Heart rate 64 /min [employer] Jair Hellinger [employer] Work Phone: [facility] Work Phone: 04-21-2022 15:00-0400 Respiratory rate 16 /min [employer] Jair Hellinger [employer] Work Phone: [facility] Work Phone: 04-21-2022 15:00-0400 SaO2% (BldA) [Mass fraction] 96 % [employer] Jair Hellinger [employer] Work Phone: [facility] Work Phone: 04-21-2022 15:00-0400 Systolic blood pressure 122 mm[Hg] [employer] Jair Hellinger [employer] Work Phone: [facility] Work Phone: 04-21-2022 14:08-0400 Body mass index (BMI) [Ratio] 24.8 kg/m2 [employer] Jair Parikh [employer] Work Phone: [facility] Work Phone: 04-21-2022 05:34-0400 Body weight 87.67 kg [employer] Jair Parikh [employer] Work Phone: [facility] Work Phone: 04-19-2022 18:04-0400 Body height 185.42 cm [employer] Jair Parikh [employer] Work Phone: [facility] Work Phone: 04-19-2022 17:33-0400 Body temperature 97 [degF] [facility] Work Phone: 04-19-2022 17:33-0400 Diastolic blood pressure 67 mm[Hg] [facility] Work Phone: 04-19-2022 17:33-0400 Heart rate 80 /min [facility] Work Phone: 04-19-2022 17:33-0400 Respiratory rate 20 /min [facility] Work Phone: 04-19-2022 17:33-0400 SaO2% (BldA) [Mass fraction] 97 % [facility] Work Phone: 04-19-2022 17:33-0400 Systolic blood pressure 103 mm[Hg] [facility] Work Phone: 04-19-2022 16:39-0400 Body height 185.42 cm [facility] Work Phone: 04-19-2022 16:39-0400 Body mass index (BMI) [Ratio] 24.6 kg/m2 [facility] Work Phone: 04-19-2022 16:39-0400 Body weight 84.8 kg [facility] Work Phone: 04-17-2022 11:32-0400 Respiratory rate 18 /min [facility] Work Phone: 04-17-2022 09:01-0400 Body height 185.42 cm [facility] Work Phone: 04-17-2022 09:01-0400 Body mass index (BMI) [Ratio] 24 kg/m2 [facility] Work Phone: 04-17-2022 09:01-0400 Body temperature 97.9 [degF] [facility] Work Phone: 04-17-2022 09:01-0400 Body weight 82.55 kg [facility] Work Phone: 04-17-2022 09:01-0400 Diastolic blood pressure 74 mm[Hg] [facility] Work Phone: 04-17-2022 09:01-0400 Heart rate 70 /min [facility] Work Phone: 04-17-2022 09:01-0400 SaO2% (BldA) [Mass fraction] 99 % [facility] Work Phone: 04-17-2022 09:01-0400 Systolic blood pressure 124 mm[Hg] [facility] Work Phone: Encounters Encounter Date Encounter Type Care Provider Facility Start: 05-27-2025 End: 05-27-2025 ambulatory CONNIE LUGO Facility:[facility] Start: 05-25-2025 End: 05-27-2025 ambulatory Bright Thao APRN.[employer] Work Phone: Hematology/Oncology Start: 05-25-2025 End: 05-27-2025 Patient encounter procedure Bright Thao APRN.[employer] Work Phone: Hematology/Oncology Comment on above: Appointment on Start: 05-22-2025 End: 05-26-2025 Evaluation and management of inpatient GAIL Lavinia ROCK Facility:[facility] Start: 05-21-2025 End: 05-21-2025 Social Work Kemi GALVEZ Work Phone: Neurology Comment on above: 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) (Primary Dx); 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); Caregiver stress Start: 05-19-2025 End: 05-20-2025 ambulatory Gilbert Ramirez APRN.CNP Work Phone: Neurology Start: 05-19-2025 End: 05-20-2025 Follow-up encounter Gilbert Ramirez APRN.CNP Work Phone: Neurology Comment on above: Appointment follow u p request Start: 05-10-2025 End: 05-12-2025 Refill Connie Mccain DO Work Phone: Hematology/Oncology Comment on above: Refill Request Start: 05-08-2025 End: 05-22-2025 Telephone encounter Temo Gill RN Hematology/Oncology Start: 05-01-2025 End: 05-02-2025 Nursing evaluation of patient and report Temo Gill RN Hematology/Oncology Comment on above: Multiple myeloma not having achieved remission (HCC) (Primary Dx); Examination of participant in clinical trial Start: 05-01-2025 End: 05-01-2025 Admission to establishment [facility] [place] [facility] Work Phone: Pre Anesthesia Start: 05-01-2025 End: 05-01-2025 Anesthesia consultation [place] [id number] Work Phone: Pre Anesthesia Comment on above: Right bundle branch block (Primary Dx); Mixed hyperlipidemia; Primary hypertension; Other chronic 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 acute cor pulmonale (HCC); Type 2 diabetes mellitus without complication, without long-term current use of insulin (HCC); Lewy body dementia, unspecified dementia severity, unspecified whether behavioral, psychotic, or mood disturbance or anxiety (HCC); Multiple myeloma not having achieved remission (HCC) Start: 05-01-2025 End: 05-01-2025 ambulatory CONNIE LUGO Facility:[facility] Start: 05-01-2025 End: 05-02-2025 Patient encounter procedure Bright Thao APRN.PATTERNMAKER APPRENTICE WOOD Work Phone: Hematology/Oncology Comment on above: Multiple myeloma not having achieved remission (HCC) (Primary Dx); Examination of participant in clinical trial; Chronic 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 acute cor pulmonale, unspecified pulmonary embolism type (HCC) Start: 05-01-2025 End: 05-01-2025 ambulatory CONNIE LUGO Facility:[facility] Start: 04-23-2025 End: 05-06-2025 Telephone encounter Temo Gill RN Hematology/Oncology Start: 04-21-2025 End: 04-21-2025 Telephone encounter Gail Rock MD Work Phone: [address] Comment on above: Pre-Op Teaching Start: 04-18-2025 End: 04-21-2025 Telephone encounter Isabel Beard APRN.CNP Work Phone: Pre Anesthesia Comment on above: Preparations For Pro cedures Start: 04-17-2025 End: 04-21-2025 Telephone encounter Isabel Beard APRN.CNP Work Phone: Pre Anesthesia Comment on above: Presurgical Preparat ions Start: 04-17-2025 End: 04-17-2025 ambulatory NIDHI Dumont MARLYN Facility:[facility] Start: 04-17-2025 Encounter for other preprocedural examination [facility] Start: 04-17-2025 End: 04-17-[address] [facility] Start: 04-17-2025 End: 04-17-2025 Subsequent hospital visit by physician [facility] Radiology Comment on above: Primary osteoarthrit is of right hip [M16.11] Start: 04-17-2025 End: 04-17-2025 [place]mission to [place] [address] Work Phone: Pre Anesthesia Start: 04-17-2025 End: 04-17-2025 Anesthesia consultation [place] [id number] Work Phone: Pre Anesthesia Comment on above: Mixed hyperlipidemia (Primary Dx); Primary hypertension; Right bundle branch block; History of pulmonary embolism; Type 2 diabetes mellitus without complication, without long-term current use of insulin (HCC); Multiple myeloma not having achieved remission (HCC); Lewy body dementia, unspecified dementia severity, unspecified whether behavioral, psychotic, or mood disturbance or anxiety (HCC); Alzheimer's disease (HCC) Start: 04-17-2025 End: 04-17-2025 ambulatory CONNIE LUGO Facility:[facility] Start: 04-16-2025 End: 04-16-2025 Office outpatient visit 40 minutes Nidhi Pat PA-C Work Phone: Orthopaedics Comment on above: Primary osteoarthrit is of right hip (Primary Dx); Preoperative testing; History of DVT of lower extremity; Multiple myeloma, without mention of having achieved remission (HCC); Controlled type 2 diabetes mellitus without complication, without long-term current use of insulin (HCC) Start: 04-16-2025 End: 04-16-2025 Patient encounter status Nidhi Pat PA-C Work Phone: [facility] Start: 04-16-2025 End: 04-16-2025 Orders Only Gail Rock MD Work Phone: Orthopaedics Comment on above: Primary osteoarthrit is of right hip (Primary Dx) Start: 04-14-2025 End: 04-14-2025 [facility] Gilbert Ashley FRANCOPATTERNMAKER APPRENTICE WOOD Work Phone: Neurology Comment on above: 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) (Primary Dx); 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); REM sleep behavior disorder; Irritability; Impaired insight; Multiple myeloma not having achieved remission (HCC); Lumbar radiculopathy; 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 Start: 04-09-2025 End: 04-09-2025 Refill Connie Mccain DO Work Phone: Hematology/Oncology Comment on above: Refill Request Start: 04-08-2025 End: 04-08-2025 Office outpatient visit 40 minutes Geoff Young MD Work Phone: [facility] Comment on above: Vestibular schwannom a (HCC) (Primary Dx); Bilateral leg pain Start: 04-08-2025 End: 04-08-2025 ambulatory CONNIE LUGO Facility:[facility] Start: 04-03-2025 End: 04-07-2025 Nursing evaluation of patient and report Temo Gill RN Hematology/Oncology Comment on above: Multiple myeloma not having achieved remission (HCC) (Primary Dx); Examination of participant in clinical trial Start: 04-03-2025 End: 04-07-2025 Patient encounter procedure Temo Gill RN [facility] Start: 04-03-2025 End: 04-03-2025 Telephone encounter Temo Gill RN Hematology/Oncology Start: 04-03-2025 End: 04-03-2025 ambulatory Treatment Rm 15 Jack [facility] Work Phone: Hematology/Oncology Comment on above: Multiple myeloma not having achieved remission (HCC) (Primary Dx) Start: 04-03-2025 End: 04-03-2025 Office outpatient visit 25 minutes Connie Mccain DO Work Phone: Hematology/Oncology Comment on above: Multiple myeloma not having achieved remission (HCC) (Primary Dx); Chronic 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 acute cor pulmonale, unspecified pulmonary embolism type (HCC); Neurologic gait dysfunction; Bilateral sciatica; Weakness of right lower extremity Start: 04-03-2025 End: 04-03-2025 ambulatory CONNIE MCCAIN Facility:[facility] Start: 04-03-2025 End: 04-03-2025 Subsequent hospital visit by physician [employer] (I-Stat/1.5t) Work Phone: Radiology Comment on above: 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.3] Start: 04-01-2025 End: 04-02-2025 Telephone encounter Anais GALVEZ Hematology/Oncology Comment on above: Social Work Services Patient Question/Pre scription Start: 03-29-2025 End: 03-31-2025 Refill Connie Mccain DO Work Phone: Hematology/Oncology Comment on above: Refill Request Start: 03-25-2025 End: 04-01-2025 ambulatory Eunice Morales PA-C Work Phone: [facility] Comment on above: Medication Appt May Start: 03-24-2025 End: 03-24-2025 Orders Only Connie Waters MD Work Phone: Pain Management Comment on above: Lumbar radiculopathy (Primary Dx); 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, lumbar region Cardiac Clearance (A nticoagulation ) Start: 03-21-2025 End: 03-21-2025 Patient encounter procedure Eunice Morales PA-C Work Phone: [facility] Comment on above: Lumbar radiculopathy (Primary Dx); 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 Start: 03-21-2025 End: 03-21-2025 ambulatory CONNIE LUGO Facility:[facility] Start: 03-14-2025 End: 03-14-2025 ambulatory CONNIE LUGO Facility:[facility] Start: 03-07-2025 End: 03-07-2025 Telephone encounter Temo Gill RN Hematology/Oncology Start: 03-07-2025 End: 03-07-2025 ambulatory CONNIE LUGO Facility:[facility] Start: 03-06-2025 End: 03-06-2025 Nursing evaluation of patient and report Temo Gill RN Hematology/Oncology Comment on above: Multiple myeloma not having achieved remission (HCC) (Primary Dx); Examination of participant in clinical trial Start: 03-06-2025 End: 03-07-2025 Telephone encounter Connie Mccain DO Work Phone: Hematology/Oncology Comment on above: AVS 03/06; Results Start: 03-06-2025 End: 03-06-2025 Office outpatient visit 25 minutes Connie Mccain DO Work Phone: Hematology/Oncology Comment on above: Multiple myeloma not having achieved remission (HCC) (Primary Dx); Examination of participant in clinical trial; Chronic 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 acute cor pulmonale, unspecified pulmonary embolism type (HCC); KYE (acute kidney injury) Start: 03-06-2025 End: 03-06-2025 Patient encounter procedure Connie Mccain DO Work Phone: [facility] Start: 03-06-2025 End: 03-06-2025 ambulatory CONNIE LUGO Facility:[facility] Start: 03-03-2025 End: 03-03-2025 Patient encounter procedure Emg 1 Neur [facility] (Max Weight: 850) Neurology Start: 03-03-2025 End: 03-03-2025 ambulatory CONNIE LUGO Neurology Start: 02-28-2025 End: 02-28-2025 Refill Connie Aura Mccain DO Work Phone: Hematology/Oncology Comment on above: Refill Request Start: 02-26-2025 ambulatory CONNIE Alisa MARIBETH Facility :[facility] Start: 02-26-2025 End: 02-26-2025 Subsequent hospital visit by physician [facility] (I-Stat/1.5t) Work Phone: Radiology Comment on above: Radiculopathy of lum bar region [M54.16] Start: 02-26-2025 End: 02-26-2025 Patient encounter procedure Ivet Colin DO Work Phone: Orthopaedics Comment on above: Radiculopathy of lum bar region (Primary Dx) Start: 02-26-2025 End: 02-26-2025 ambulatory CONNIE LUGO Facility:[facility] Start: 02-25-2025 End: 02-25-2025 Telephone encounter Therese Sanabria Research Coordinator Radiology Comment on above: Research F/U (IRB #[id number]) Start: 02-24-2025 End: 02-24-2025 [facility] Gilbert Ramirez APRN.PATTERNMAKER APPRENTICE WOOD Work Phone: Neurology Comment on above: Mild cognitive impai rment (Primary Dx); Late onset Alzheimer disease without behavioral disturbance (HCC); 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); REM sleep behavior disorder; Irritability; Impaired insight; Multiple myeloma not having achieved remission (HCC) Start: 02-06-2025 End: 02-10-2025 Nursing evaluation of patient and report Temo Gill RN Hematology/Oncology Comment on above: Multiple myeloma not having achieved remission (HCC) (Primary Dx); Examination of participant in clinical trial Start: 02-06-2025 End: 02-10-2025 Patient encounter procedure Bright Thao APRN.PATTERNMAKER APPRENTICE WOOD Work Phone: Hematology/Oncology Comment on above: Multiple myeloma not having achieved remission (HCC) (Primary Dx); Examination of participant in clinical trial Start: 02-06-2025 End: 02-06-2025 ambulatory CONNIE LUGO Facility:[facility] Start: 02-03-2025 End: 02-04-2025 Refill Connie Mccani DO Work Phone: Hematology/Oncology Comment on above: Refill Request Start: 02-03-2025 End: 02-03-2025 Telephone encounter Connie Mccain DO Work Phone: Hematology/Oncology Comment on above: Medication Request Refill Request Start: 01-31-2025 End: 01-31-2025 Telephone encounter Kemi GALVEZ Work Phone: [facility] Comment on above: Appointment (Left vo icemail regarding scheduling follow up for both Bradley Ramirez and Kemi Kennedy at 6-8 weeks and 3 months respectively. 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 behavioral disturbance (HCC); 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) Start: 01-29-2025 End: 02-03-2025 Refill Connie Mccain DO Work Phone: Hematology/Oncology Comment on above: Refill Request Start: 01-21-2025 End: 01-21-2025 Telephone encounter Gilbert Ramirez APRN.PATTERNMAKER APPRENTICE WOOD Work Phone: [facility] Comment on above: Appointment (Left me ssage regarding scheduling consultation with [facility] social worker masters, Deacon number included in voicemail.) Start: 01-20-2025 End: 01-20-2025 [facility] Gilbert Ramirez APRN.PATTERNMAKER APPRENTICE WOOD Work Phone: Neurology Comment on above: Mild cognitive impai rment (Primary Dx); Late onset Alzheimer disease without behavioral disturbance (HCC); 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); REM sleep behavior disorder; Irritability; Impaired insight; Multiple myeloma not having achieved remission (HCC) Start: 01-10-2025 End: 01-10-2025 Refill Connie Mccain [employer] Work Phone: Hematology/Oncology Comment on above: Refill Request Start: 01-09-2025 End: 01-09-2025 Nursing evaluation of patient and report Temo Gill RN Hematology/Oncology Comment on above: Multiple myeloma not having achieved remission (HCC) (Primary Dx); Examination of participant in clinical trial Start: 01-09-2025 End: 01-09-2025 Office outpatient visit 25 minutes Connie Mccain DO Work Phone: Hematology/Oncology Comment on above: Multiple myeloma not having achieved remission (HCC) (Primary Dx); Chronic 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 acute cor pulmonale, unspecified pulmonary embolism type (HCC); Examination of participant in clinical trial Start: 01-09-2025 End: 01-09-2025 Patient encounter procedure Connie Mccain [employer] Work Phone: [facility] Start: 01-09-2025 End: 01-09-2025 ambulatory CONNIE LUGO Facility:[facility] Start: 01-06-2025 End: 01-06-2025 Chart abstracting Gilbert Ramirez APRN.PATTERNMAKER APPRENTICE WOOD Work Phone: Neurology Comment on above: Received Outside Med ical Records ([employer] Results uploaded into documents ) Start: 01-02-2025 End: 01-02-2025 Chart abstracting Gilbert Ramirez APRN.PATTERNMAKER APPRENTICE WOOD Work Phone: Neurology Comment on above: Letter (Received and sent back to the patient through [employer]. ) Start: 01-01-2025 End: 01-01-2025 Chart abstracting Gilbert Ramirez APRN.PATTERNMAKER APPRENTICE WOOD Work Phone: Neurology Start: 12-30-2024 End: 12-30-2024 ambulatory CONNIE LUGO Facility:[facility] Start: 12-30-2024 End: 12-30-2024 Patient encounter procedure Gilbert Ramirez APRN.PATTERNMAKER APPRENTICE WOOD Work Phone: Neurology Comment on above: Encounter for lumbar puncture (Primary Dx); Mild cognitive impairment; REM sleep behavior disorder Start: 12-30-2024 End: 12-30-2024 Patient encounter status Gilbert Ramirez APRN.PATTERNMAKER APPRENTICE WOOD Work Phone: [facility] Work Phone: Start: 12-25-2024 End: 12-25-2024 ambulatory Gilbert Ramirez PATTERNMAKER APPRENTICE WOOD Work Phone: Neurology Comment on above: [facility] - Lumbar Puncture Information Sheet Start: 12-25-2024 End: 12-25-2024 Chart abstracting Fariha Melchor RN Work Phone: Neurology Start: 12-25-2024 End: 12-25-2024 E-mail encounter from caregiver Gilbert Ramirez TWYLAAltagraciaPATTERNMAKER APPRENTICE WOOD Work Phone: Neurology Start: 12-24-2024 End: 12-24-2024 ambulatory CONNIE LUGO Facility:[facility] Start: 12-23-2024 End: 12-23-2024 Telephone encounter Gilbert Ramirez APRGabePATTERNMAKER APPRENTICE WOOD Work Phone: Neurology Comment on above: Orders Start: 12-19-2024 End: 12-19-2024 Chart abstracting Gilbert Singerlydia FRANCOPATTERNMAKER APPRENTICE WOOD Work Phone: Neurology Comment on above: Medication Update (R eceived OK to hold Xarelto for LP) Start: 12-18-2024 End: 12-18-2024 [facility] Gilbert Ramirez PATTERNMAKER APPRENTICE WOOD Work Phone: Neurology Comment on above: Mild cognitive impai rment (Primary Dx); Memory loss; REM sleep behavior disorder; Irritability; Impaired insight; Multiple myeloma not having achieved remission (HCC); Screening for condition Start: 12-17-2024 End: 12-17-2024 Refill Connie Mccain DO Work Phone: Hematology/Oncology Comment on above: Refill Request Start: 12-15-2024 End: 12-16-2024 Refill Connie Mccain DO Work Phone: Hematology/Oncology Comment on above: Refill Request Start: 12-12-2024 End: 12-12-2024 Nursing evaluation of patient and report Eugenie Lao RN Work Phone: Hematology/Oncology Comment on above: Multiple myeloma not having achieved remission (HCC) (Primary Dx) Start: 12-12-2024 End: 12-13-2024 Telephone encounter Anais GALVEZ Hematology/Oncology Comment on above: Social Work Services Start: 12-12-2024 End: 12-12-2024 ambulatory Treatment Rm 15 Jack [facility] Work Phone: Hematology/Oncology Comment on above: Multiple myeloma not having achieved remission (HCC) (Primary Dx) Start: 12-12-2024 End: 12-12-2024 Office outpatient visit 25 minutes Connie Mccain DO Work Phone: Hematology/Oncology Comment on above: Multiple myeloma not having achieved remission (HCC) (Primary Dx); Examination of participant in clinical trial; Chronic 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 acute cor pulmonale, unspecified pulmonary embolism type (HCC); Primary osteoarthritis of both hips Start: 12-12-2024 End: 12-12-2024 Patient encounter procedure Connie Mccain DO Work Phone: [facility] Start: 12-12-2024 End: 12-12-2024 ambulatory CONNIE LUGO Facility:[facility] Start: 11-29-2024 End: 11-29-2024 Refill Connie Mccain DO Work Phone: Hematology/Oncology Comment on above: Refill Request Memory loss (Primary Dx); REM sleep behavior disorder; Irritability; Impaired insight Start: 11-27-2024 End: 11-27-2024 ambulatory CONNIE LUGO Facility:[facility] Start: 11-27-2024 End: 11-27-2024 Patient encounter procedure Ivet Colin DO Work Phone: Orthopaedics Comment on above: Bilateral hip pain ( Primary Dx); Primary osteoarthritis of both hips Start: 11-22-2024 End: 11-22-2024 Telephone encounter Temo Gill RN Hematology/Oncology Comment on above: Appointment Start: 11-19-2024 End: 11-19-2024 Patient encounter procedure Betsy Kemp PA-C Work Phone: Neurology Comment on above: Memory loss (Primary Dx); REM sleep behavior disorder Start: 11-19-2024 End: 11-19-2024 ambulatory CONNIE LUGO Facility:[facility] Start: 11-18-2024 End: 11-18-2024 Telephone encounter Temo Gill RN Hematology/Oncology Start: 11-17-2024 End: 11-18-2024 Refill Connie Mccain DO Work Phone: Hematology/Oncology Comment on above: Refill Request Start: 11-16-2024 End: 11-18-2024 Refill Dasha Ochoa Work Phone: Hematology/Oncology Comment on above: Refill Request Start: 11-15-2024 End: 11-17-2024 Telephone encounter Temo Gill RN Hematology/Oncology Comment on above: Refill Request Start: 11-14-2024 End: 11-19-2024 Nursing evaluation of patient and report Temo Gill RN Hematology/Oncology Comment on above: Multiple myeloma not having achieved remission (HCC) (Primary Dx); Examination of participant in clinical trial Start: 11-14-2024 End: 11-19-2024 Patient encounter procedure Connie Mccain DO Work Phone: Hematology/Oncology Start: 11-14-2024 End: 11-14-2024 ambulatory Connie Mccain DO Work Phone: Hematology/Oncology Comment on above: Multiple myeloma not having achieved remission (HCC) (Primary Dx); Chronic 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 acute cor pulmonale, unspecified pulmonary embolism type (HCC) Start: 11-01-2024 End: 11-04-2024 ambulatory TERRI QUINTANA Facility:[facility] Start: 10-22-2024 End: 10-22-2024 Refill Connie Mccain DO Work Phone: Hematology/Oncology Comment on above: Refill Request Start: 10-22-2024 End: 10-24-2024 Refill Connie Mccain DO Work Phone: Hematology/Oncology Comment on above: Refill Request Start: 10-18-2024 ambulatory CONNIE Alisa LUGO Facility :[facility] Start: 10-18-2024 End: 10-18-2024 Subsequent hospital visit by physician Gi/Gu [facility] Work Phone: Radiology Comment on above: Bilateral hip pain [ M25.551, M25.552] Start: 10-17-2024 End: 10-21-2024 Nursing evaluation of patient and report Temo Gill RN Hematology/Oncology Comment on above: Examination of parti cipant in clinical trial (Primary Dx); Multiple myeloma not having achieved remission (HCC) Start: 10-17-2024 End: 10-21-2024 Patient encounter procedure Temo Gill RN [facility] Start: 10-17-2024 End: 10-17-2024 ambulatory Farhan East MD Work Phone: Hematology/Oncology Comment on above: Multiple myeloma not having achieved remission (HCC) (Primary Dx) Start: 10-08-2024 End: 10-08-2024 Office outpatient visit 25 minutes Geoff Young MD Work Phone: [facility] Comment on above: Vestibular schwannom a (HCC) (Primary Dx) Start: 10-08-2024 End: 10-08-2024 ambulatory CONNIE LUGO Facility:[facility] Start: 10-03-2024 End: 10-04-2024 Telephone encounter Ivet Colin DO Work Phone: Orthopaedics Comment on above: Patient Update Start: 10-03-2024 End: 10-03-2024 ambulatory CONNIE Alisa LUGO Facility:[facility] Start: 10-03-2024 End: 10-03-2024 Subsequent hospital visit by physician [facility] (I-Stat/1.5t) Work Phone: Radiology Comment on above: Multiple myeloma not having achieved remission (HCC) [C90.00] Start: 10-02-2024 End: 10-02-2024 ambulatory CONNIE LUGO Facility:[facility] Start: 10-02-2024 End: 10-02-2024 Patient encounter procedure Ivet Colin DO Work Phone: Orthopaedics Comment on above: Bilateral hip pain ( Primary Dx); 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) Start: 09-20-2024 End: 09-20-2024 Refill Connie Mccain DO Work Phone: Hematology/Oncology Comment on above: Refill Request Start: 09-19-2024 End: 09-20-2024 Refill Connie Mccain DO Work Phone: Hematology/Oncology Comment on above: Refill Request Start: 09-18-2024 End: 09-27-2024 Nursing evaluation of patient and report Temo Gill RN Hematology/Oncology Comment on above: Multiple myeloma not having achieved remission (HCC) (Primary Dx); Examination of participant in clinical trial Start: 09-18-2024 End: 09-27-2024 Patient encounter procedure Connie Mccain DO Work Phone: Hematology/Oncology Comment on above: Multiple myeloma not having achieved remission (HCC) (Primary Dx); Examination of participant in clinical trial; Other chronic 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 acute cor pulmonale (HCC); Back spasm Start: 09-18-2024 End: 09-18-2024 ambulatory Treatment Rm 16 Jack [facility] Work Phone: Hematology/Oncology Comment on above: Multiple myeloma not having achieved remission (HCC) (Primary Dx) Start: 09-12-2024 End: 09-25-2024 Telephone encounter Temo Gill RN Hematology/Oncology Comment on above: Patient Update Results Start: 09-12-2024 End: 09-12-2024 ambulatory Connie Lugo Facility:[facility] Start: 09-02-2024 End: 09-02-2024 Telephone encounter Ivet Colin DO Work Phone: Orthopaedics Comment on above: Appointment Start: 08-29-2024 End: 09-06-2024 E-mail encounter from caregiver [facility] Provider Hematology/Oncology Start: 08-29-2024 End: 08-30-2024 Telephone encounter Anais GALVEZ Hematology/Oncology Comment on above: Social Work Services Start: 08-29-2024 End: 09-06-2024 ambulatory [facility] Provider Hematology/Oncology Comment on above: Lab Work Start: 08-26-2024 End: 08-28-2024 Telephone encounter Connie Mccain DO Work Phone: Hematology/Oncology Comment on above: Results Start: 08-22-2024 End: 08-26-2024 Nursing evaluation of patient and report Temo Gill RN Hematology/Oncology Comment on above: Multiple myeloma not having achieved remission (HCC) (Primary Dx); Examination of participant in clinical trial Start: 08-22-2024 End: 08-26-2024 Patient encounter procedure Temo Gill RN [facility] Start: 08-22-2024 End: 08-22-2024 ambulatory CONNIE LUGO Facility:[facility] Start: 08-22-2024 End: 08-22-2024 Subsequent hospital visit by physician [facility] [employer] Work Phone: Radiology Comment on above: Chronic pain of both knees [M25.561, M25.562, G89.29] Start: 08-22-2024 End: 08-22-2024 Office outpatient visit 25 minutes Connie Mccain DO Work Phone: Hematology/Oncology Comment on above: Multiple myeloma not having achieved remission (HCC) (Primary Dx); Chronic pain of both knees; Chronic 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 acute cor pulmonale, unspecified pulmonary embolism type (HCC) Start: 08-22-2024 End: 08-22-2024 ambulatory CONNIE LUGO Facility:[facility] Start: 08-19-2024 End: 08-20-2024 Refill Connie Mccain DO Work Phone: Hematology/Oncology Comment on above: Refill Request Start: 08-18-2024 End: 08-19-2024 Refill Connie Mccain DO Work Phone: Hematology/Oncology Comment on above: Refill Request Start: 07-25-2024 End: 07-30-2024 Nursing evaluation of patient and report Temo Gill RN Hematology/Oncology Comment on above: Multiple myeloma not having achieved remission (HCC) (Primary Dx); Examination of participant in clinical trial Start: 07-25-2024 End: 07-30-2024 Patient encounter procedure Bright Thao APRN.PATTERNMAKER APPRENTICE WOOD Work Phone: Hematology/Oncology Comment on above: Multiple myeloma not having achieved remission (HCC) (Primary Dx); Examination of participant in clinical trial Start: 07-25-2024 End: 07-25-2024 ambulatory CONNIE LUGO Facility:[facility] Start: 07-23-2024 End: 07-23-2024 Refill Connie Mccain DO Work Phone: Hematology/Oncology Comment on above: Refill Request Research Start: 07-22-2024 End: 07-23-2024 Refill Connie Padillai DO Work Phone: Hematology/Oncology Comment on above: Refill Request Start: 07-18-2024 End: 07-18-2024 Chart abstracting Temo Gill RN Hematology/Oncology Comment on above: Research (S1803 CTD 12 Months) Start: 07-18-2024 End: 07-18-2024 Patient encounter procedure Bright Thao APRN.PATTERNMAKER APPRENTICE WOOD Work Phone: Hematology/Oncology Comment on above: Multiple myeloma not having achieved remission (HCC); Examination of participant in clinical trial Start: 07-18-2024 End: 07-18-2024 ambulatory CONNIE LUGO Facility:[facility] Start: 06-27-2024 End: 07-02-2024 Nursing evaluation of patient and report Temo Gill RN Hematology/Oncology Comment on above: Multiple myeloma not having achieved remission (HCC) (Primary Dx); Examination of participant in clinical trial Start: 06-27-2024 End: 07-18-2024 Patient encounter procedure Connie Aura Padillai DO Work Phone: Hematology/Oncology Start: 06-27-2024 End: 07-18-2024 ambulatory Connie Aura Padillai DO Work Phone: Hematology/Oncology Comment on above: Multiple myeloma not having achieved remission (HCC) (Primary Dx) Multiple myeloma not having achieved remission (HCC) (Primary Dx); Examination of participant in clinical trial Start: 06-25-2024 End: 06-25-2024 Refill Connie Mccain DO Work Phone: Hematology/Oncology Comment on above: Refill Request Start: 06-02-2024 Refill Connie Samuels O Work Phone: Hematology/Oncology Comment on above: Refill Request Start: 06-01-2024 Refill Connie Mccain D O Work Phone: Hematology/Oncology Comment on above: Refill Request Start: 05-29-2024 ambulatory Anais GALVEZ Hematology/Oncology Start: 05-29-2024 Nursing evaluation o f patient and report Temo Gill RN Hematology/Oncology Comment on above: Multiple myeloma not having achieved remission (HCC) (Primary Dx) Start: 05-29-2024 End: 05-29-2024 Patient encounter procedure Anais GALVEZ Hematology/Oncology Comment on above: Multiple myeloma not having achieved remission (HCC) (Primary Dx); Examination of participant in clinical trial Start: 05-27-2024 Telephone encounter Temo Gill RN Hematology/Oncology Comment on above: Appointment Start: 05-22-2024 End: 05-22-2024 Patient encounter procedure Betsy Kemp PA-C Work Phone: Neurology Comment on above: Mild cognitive impai rment (Primary Dx); Altered mental status, unspecified altered mental status type; Multiple myeloma not having achieved remission (HCC); Memory loss Start: 05-17-2024 Telephone encounter Neurology Provid er Neurology Comment on above: Appointment Start: 05-13-2024 End: 05-13-2024 Nursing evaluation of patient and report Nurse Gabrielle Main Work Phone: Infectious Disease Comment on above: Need for vaccination (Primary Dx); History of autologous stem cell transplant (HCC); Multiple myeloma in remission (HCC) Start: 05-10-2024 Telephone encounter Temo Gill RN Hematology/Oncology Start: 05-07-2024 Telephone encounter Connie pavon DO Work Phone: Hematology/Oncology Comment on above: Medication Problem Start: 05-06-2024 Telephone encounter Temo Gill RN Hematology/Oncology Comment on above: Patient Update Start: 05-04-2024 Refill Connie Samuels O Work Phone: Hematology/Oncology Comment on above: Refill Request Start: 05-02-2024 Nursing evaluation o f patient and report Temo Gill RN Hematology/Oncology Comment on above: Examination of parti cipant in clinical trial (Primary Dx) Start: 05-02-2024 End: 05-02-2024 Patient encounter procedure Bright Thao PHARMACIST CRITICAL CARE.PATTERNMAKER APPRENTICE WOOD Work Phone: Hematology/Oncology Start: 05-02-2024 End: 05-02-2024 ambulatory Bright Thao APRN.PATTERNMAKER APPRENTICE WOOD Work Phone: Hematology/Oncology Comment on above: Multiple myeloma not having achieved remission (HCC) (Primary Dx) Start: 04-09-2024 End: 04-09-2024 Office outpatient new 45 minutes Geoff Young MD Work Phone: [facility] Comment on above: Vestibular schwannom a (HCC); Multiple myeloma not having achieved remission (HCC) Start: 04-04-2024 Nursing evaluation o f patient and report Temo Gill RN Hematology/Oncology Comment on above: Examination of parti cipant in clinical trial (Primary Dx) Start: 04-04-2024 End: 04-04-2024 Patient encounter procedure Connie Mccain DO Work Phone: Hematology/Oncology Start: 04-04-2024 Telephone encounter Connie pavon DO Work Phone: Hematology/Oncology Comment on above: referral Start: 04-04-2024 End: 04-04-2024 ambulatory Treatment Rm 13 [facility] Work Phone: Hematology/Oncology Comment on above: Multiple myeloma not having achieved remission (HCC) (Primary Dx) Multiple myeloma not having achieved remission (HCC) (Primary Dx); Schwannoma of nerve of head Start: 04-02-2024 Refill Connie Samuels O Work Phone: Hematology/Oncology Comment on above: Refill Request Start: 03-29-2024 End: 03-29-2024 Subsequent hospital visit by physician [facility] ([facility] Comment on above: Schwannoma of nerve of head [D36.11] Start: 03-27-2024 Orders Only Connie Singh Work Phone: Hematology/Oncology Comment on above: Schwannoma of nerve of head (Primary Dx); Multiple myeloma not having achieved remission (HCC) Start: 03-25-2024 Telephone encounter Connie pavon DO Work Phone: Hematology/Oncology Comment on above: Results Start: 03-22-2024 End: 03-22-2024 Subsequent hospital visit by physician [facility] (1.5t[facility] Comment on above: Altered mental statu s, unspecified altered mental status type [R41.82] Start: 03-13-2024 End: 03-13-2024 Patient encounter procedure Darline Krishnan MD Work Phone: Infectious Disease Comment on above: Campylobacter enteri tis (Primary Dx); History of autologous stem cell transplant (HCC); Multiple myeloma in remission (HCC); Need for vaccination Start: 03-07-2024 Nursing evaluation o f patient and report Temo Gill RN Hematology/Oncology Comment on above: Examination of parti cipant in clinical trial (Primary Dx) Start: 03-07-2024 End: 03-07-2024 Patient encounter procedure Connie Mccain DO Work Phone: Hematology/Oncology Start: 03-07-2024 Telephone encounter Connie pavon DO Work Phone: Hematology/Oncology Comment on above: Orders Altered mental statu s, unspecified altered mental status type (Primary Dx); Multiple myeloma not having achieved remission (HCC) Start: 03-07-2024 End: 03-07-2024 ambulatory Connie Mccain DO Work Phone: Hematology/Oncology Comment on above: Altered mental statu s, unspecified altered mental status type (Primary Dx); Multiple myeloma not having achieved remission (HCC) Multiple myeloma not having achieved remission (HCC) (Primary Dx) Start: 03-04-2024 Refill Connie Singh Work Phone: Hematology/Oncology Comment on above: Refill Request Start: 02-15-2024 Telephone encounter Temo Gill RN Hematology/Oncology Comment on above: Patient Update Start: 02-12-2024 Telephone encounter Temo Gill RN Hematology/Oncology Start: 02-08-2024 Nursing evaluation o f patient and report Temo Gill RN Hematology/Oncology Comment on above: Examination of parti cipant in clinical trial (Primary Dx) Start: 02-08-2024 End: 02-08-2024 Patient encounter procedure Connie Mccain DO Work Phone: Hematology/Oncology Comment on above: Multiple myeloma not having achieved remission (HCC) (Primary Dx); Examination of participant in clinical trial; Chronic 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 acute cor pulmonale, unspecified pulmonary embolism type (HCC); Right thigh pain; Campylobacter enteritis Start: 02-08-2024 End: 02-08-2024 ambulatory Treatment Rm 7 [facility] Work Phone: Hematology/Oncology Comment on above: Multiple myeloma not having achieved remission (HCC) (Primary Dx) Start: 02-05-2024 Refill Connie Singh Work Phone: Hematology/Oncology Comment on above: Refill Request Start: 02-05-2024 Telephone encounter Temo Gill RN Hematology/Oncology Comment on above: Patient Update Start: 02-02-2024 Non-patient / Non-visit Dr. Kaela Lugo Work Phone: [facility] Work Phone: Start: 02-01-2024 Non-patient / Non-visit Dr. Kaela Lugo Work Phone: [facility] Work Phone: Start: 02-01-2024 Telephone encounter Temo Gill RN Hematology/Oncology Comment on above: Patient Update Start: 01-31-2024 ambulatory Connie Mccain Facility:[facility] Start: 01-31-2024 End: 02-02-2024 Evaluation and management of inpatient Dr. Connie Lugo Work Phone: [facility] Work Phone: Start: 01-27-2024 End: 01-27-2024 Emergency department patient visit Dr. Connie Lugo Work Phone: [facility] Work Phone: Start: 01-15-2024 Refill Connie Samuels O Work Phone: Hematology/Oncology Comment on above: Refill Request Start: 01-15-2024 Telephone encounter Nilsa Reis MD Work Phone: Neurology Comment on above: EMG Instructions Start: 01-11-2024 Nursing evaluation o f patient and report Temo Gill RN Hematology/Oncology Comment on above: Examination of parti cipant in clinical trial (Primary Dx) Start: 01-11-2024 End: 01-11-2024 Patient encounter procedure Connie Mccain DO Work Phone: [facility] Start: 01-11-2024 End: 01-11-2024 ambulatory Connie Mccain DO Work Phone: Hematology/Oncology Comment on above: Multiple myeloma not having achieved remission (HCC) (Primary Dx); Pancytopenia due to antineoplastic chemotherapy (HCC); Thrombocytopenia, unspecified (HCC) Multiple myeloma not having achieved remission (HCC) (Primary Dx) Start: 01-10-2024 Orders Only Connie Singh Work Phone: Hematology/Oncology Comment on above: Multiple myeloma not having achieved remission (HCC) (Primary Dx) Start: 01-08-2024 Refill Connie Samuels O Work Phone: Hematology/Oncology Comment on above: Refill Request Start: 01-02-2024 End: 01-02-2024 Nursing evaluation of patient and report Nurse Anthony Main Work Phone: Infectious Disease Comment on above: Need for vaccination (Primary Dx); History of autologous stem cell transplant (HCC); Multiple myeloma in remission (HCC) Start: 01-02-2024 End: 01-02-2024 ambulatory Josey Miller [facility] Comment on above: Right thigh pain; Muscle pain; Weakness of right lower extremity; Femoral neuropathy of right lower extremity Start: 12-28-2023 ambulatory Connie Lugo Facility:[facility] Start: 12-28-2023 Non-patient / Non-visit Dr. Kaela uLgo Work Phone: [facility] Start: 12-28-2023 End: 12-28-[address] Connie Lugo Work Phone: [facility] Work Phone: Start: 12-28-2023 End: 12-28-[address] Connie Lugo Work Phone: [facility] Work Phone: Start: 12-28-2023 End: 12-28-2023 ambulatory Connie Lugo Facility:[facility] Start: 12-22-2023 Telephone encounter Nilsa Reis MD Work Phone: Neurology Comment on above: [employer] Start: 12-22-2023 End: 12-22-2023 Patient encounter procedure Martha Leone MD Work Phone: Neurology Comment on above: Femoral neuropathy o f right lower extremity (Primary Dx); Right thigh pain; Muscle pain; Weakness of right lower extremity Start: 12-14-2023 Nursing evaluation o f patient and report Temo Gill RN Hematology/Oncology Comment on above: Examination of parti cipant in clinical trial (Primary Dx) Start: 12-14-2023 End: 12-14-2023 Patient encounter procedure Connie Mccain DO Work Phone: [facility] Start: 12-14-2023 End: 12-14-2023 ambulatory Connie Mccain DO Work Phone: Hematology/Oncology Comment on above: Multiple myeloma not having achieved remission (HCC) (Primary Dx); Chronic 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 acute cor pulmonale, unspecified pulmonary embolism type (HCC); Right thigh pain Pancytopenia due to antineoplastic chemotherapy (HCC) (HCC) (Primary Dx); Multiple myeloma not having achieved remission (HCC) Start: 12-13-2023 Orders Only Connie Samuels O Work Phone: Hematology/Oncology Comment on above: Multiple myeloma not having achieved remission (HCC) (Primary Dx) Start: 12-12-2023 Telephone encounter Darline Krishnan MD Work Phone: Infectious Disease Comment on above: Imm/Inj Start: 12-11-2023 Refill Connie Samuels O Work Phone: Hematology/Oncology Comment on above: Refill Request Start: 12-08-2023 Patient encounter procedure Connie Mccain DO Work Phone: Hematology/Oncology Comment on above: Examination of parti cipant in clinical trial (Primary Dx); Multiple myeloma not having achieved remission (HCC) Start: 12-06-2023 Telephone encounter Temo Gill RN Hematology/Oncology Comment on above: Patient Update Start: 12-04-2023 Telephone encounter Temo Gill RN Hematology/Oncology Comment on above: Patient Update Start: 11-27-2023 Telephone encounter Connie pavon DO Work Phone: Hematology/Oncology Comment on above: Symptoms Start: 11-27-2023 End: 11-27-2023 Emergency department patient visit [facility] Work Phone: Start: 11-17-2023 Telephone encounter Connie pavon DO Work Phone: Hematology/Oncology Start: 09-28-2023 Telephone encounter Temo Gill RN Hematology/Oncology Start: 09-26-2023 Telephone encounter Temo Gill RN Hematology/Oncology Comment on above: Patient Question Start: 09-22-2023 Telephone encounter Darline Krishnan MD Work Phone: Infectious Disease Comment on above: Patient Question Start: 09-21-2023 Nursing evaluation o f patient and report Temo Gill RN Hematology/Oncology Comment on above: Examination of parti cipant in clinical trial (Primary Dx) Start: 09-21-2023 End: 09-21-2023 Patient encounter procedure Bright Thao APRN.PATTERNMAKER APPRENTICE WOOD Work Phone: [facility] Start: 09-21-2023 Telephone encounter Bright karimi PHARMACIST CRITICAL CARE.PATTERNMAKER APPRENTICE WOOD Work Phone: Hematology/Oncology Comment on above: Appointment; AVS Start: 09-21-2023 End: 09-21-2023 ambulatory Bright Thao PHARMACIST CRITICAL CARE.PATTERNMAKER APPRENTICE WOOD Work Phone: Hematology/Oncology Comment on above: Multiple myeloma not having achieved remission (HCC) (Primary Dx) Start: 09-17-2023 Patient encounter procedure Connie Mccain DO Work Phone: Hematology/Oncology Comment on above: Examination of parti cipant in clinical trial (Primary Dx); Multiple myeloma not having achieved remission (HCC) Start: 09-12-2023 Refill Connie Singh Work Phone: Hematology/Oncology Comment on above: Refill Request Start: 08-23-2023 Orders Only Connie Samuels O Work Phone: Hematology/Oncology Comment on above: Multiple myeloma not having achieved remission (HCC) (Primary Dx) Start: 08-22-2023 Patient encounter procedure Connie Mccain DO Work Phone: Hematology/Oncology Comment on above: Multiple myeloma not having achieved remission (HCC) (Primary Dx); Examination of participant in clinical trial Start: 08-22-2023 Telephone encounter Anais GALVEZ Hematology/Oncology Comment on above: [employer] Assistance Research Start: 08-21-2023 Refill Connie Samuels O Work Phone: Hematology/Oncology Comment on above: Refill Request Patient Update; Rese arch Start: 08-18-2023 Chart abstracting Temo Gill RN Hematology/Oncology Start: 08-14-2023 Patient encounter procedure Connie Mccain DO Work Phone: Hematology/Oncology Comment on above: Multiple myeloma not having achieved remission (HCC) (Primary Dx); Examination of participant in clinical trial Start: 08-09-2023 Telephone encounter Temo Gill RN Hematology/Oncology Comment on above: Research Start: 08-08-2023 Telephone encounter Temo Gill RN Hematology/Oncology Comment on above: Patient Update; Rese arch Start: 08-03-2023 Telephone encounter Temo Gill RN Hematology/Oncology Comment on above: Patient Question Start: 08-01-2023 Orders Only Connie Singh Work Phone: Hematology/Oncology Comment on above: Multiple myeloma not having achieved remission (HCC) (Primary Dx) Research (Screening Note Step 2 S1803) Start: 07-26-2023 End: 07-26-2023 Subsequent hospital visit by physician Arrival [facility] Work Phone: Radiology [facility] Comment on above: Multiple myeloma not having achieved remission (HCC) [C90.00] Start: 07-24-2023 Chart abstracting Temo Gill RN Hematology/Oncology Comment on above: Research (CTD S1803) Start: 07-24-2023 End: 07-24-2023 Patient encounter procedure Connie Mccain DO Work Phone: Hematology/Oncology Comment on above: Multiple myeloma not having achieved remission (HCC); Examination of participant in clinical trial Start: 07-21-2023 Patient encounter procedure Connie Mccain DO Work Phone: Hematology/Oncology Comment on above: Multiple myeloma not having achieved remission (HCC) (Primary Dx); Examination of participant in clinical trial Start: 07-10-2023 End: 07-10-2023 Patient encounter procedure Earl Simpson MD Work Phone: Infectious Disease Comment on above: History of autologou s stem cell transplant (HCC) (Primary Dx); Multiple myeloma in remission (HCC); Need for vaccination Start: 07-07-2023 ambulatory Benjamin Mott MD Work Phone: Urology Start: 07-07-2023 End: 07-07-2023 Patient encounter procedure Benjamin Mott MD Work Phone: Urology Comment on above: Non-recurrent bilate ral inguinal hernia without obstruction or gangrene (Primary Dx); Spermatocele of epididymis, unspecified Start: 06-27-2023 Telephone encounter Florence Momin RN He matology/Oncology Comment on above: Primer Inspector - O ther (Revlimid Question ) Opened In Error Start: 06-21-2023 End: 06-21-2023 ambulatory Earl Simpson MD Work Phone: Hematology/Oncology Comment on above: Personal history of diseases of blood and blood-forming organs (Primary Dx); Multiple myeloma not having achieved remission (HCC) Multiple myeloma not having achieved remission (HCC) (Primary Dx); Type 2 diabetes mellitus without complication, without long-term current use of insulin (HCC) Multiple myeloma not having achieved remission (HCC) (Primary Dx) Start: 06-21-2023 End: 06-21-2023 Patient encounter procedure Amber Raykelechisayra PATTERNMAKER APPRENTICE WOOD Work Phone: [facility] Start: 06-19-2023 End: 06-19-2023 ambulatory Earl Simpson MD Work Phone: Hematology/Oncology Comment on above: Personal history of diseases of blood and blood-forming organs (Primary Dx); Multiple myeloma not having achieved remission (HCC) Start: 06-16-2023 Telephone encounter Karen Gonzalez RN Hem atology/Oncology Comment on above: Diarrhea Start: 06-14-2023 ambulatory Lucinda huynh RN Work Phone: Hematology/Oncology Start: 06-07-2023 ambulatory Connie Singh Work Phone: [facility] Start: 06-07-2023 Patient encounter procedure Connie Mccain DO Work Phone: Hematology/Oncology Comment on above: Clinical Trial - Lalit Joseph Start: 06-07-2023 Telephone encounter Temo Gill RN Hematology/Oncology Comment on above: Research Start: 05-30-2023 Telephone encounter Lucinda stephen RN Work Phone: Hematology/Oncology Comment on above: Results (Pre admissi on covid test) Start: 05-26-2023 Telephone encounter Lucinda stephen RN Work Phone: Hematology/Oncology Comment on above: Primer Inspector - O ther Start: 05-25-2023 Refill Connie Samuels O Work Phone: Hematology/Oncology Comment on above: Refill Request Start: 05-18-2023 Orders Only Tesfaye payan PHARMACIST CRITICAL CARE.PATTERNMAKER APPRENTICE WOOD Work Phone: Hematology/Oncology Comment on above: Multiple myeloma not having achieved remission (HCC) (Primary Dx) Start: 05-17-2023 End: 05-17-2023 ambulatory Lucinda Sarabia RN Work Phone: Hematology/Oncology Start: 05-17-2023 End: 05-17-2023 Manual pelvic examination Apheresis Main Work Phone: Hematology/Oncology Comment on above: Multiple myeloma not having achieved remission (HCC) (Primary Dx); Other intra-abdominal and pelvic swelling, mass and lump Start: 05-14-2023 Orders Only Nato Sutton MD Work Phone: Hematology/Oncology Start: 05-11-2023 End: 05-11-2023 Nursing evaluation of patient and report Lucinda Sarabia RN Work Phone: Hematology/Oncology Comment on above: Multiple myeloma not having achieved remission (HCC) (Primary Dx) Start: 05-10-2023 End: 05-10-2023 ambulatory CONNIE LUGO Facility:[facility] Start: 05-10-2023 Encounter for other preprocedural examination HUANG [facility] Start: 05-04-2023 ambulatory Rebecca Finnegan [facility] Hemat ology/Oncology Start: 05-03-2023 End: 05-03-2023 ambulatory Earl Simpson MD Work Phone: Hematology/Oncology Comment on above: Multiple myeloma in remission (HCC) (Primary Dx); Pre-transplant evaluation for stem cell transplant; Type 2 diabetes mellitus without complication, without long-term current use of insulin (HCC); Acute 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 acute cor pulmonale, unspecified pulmonary embolism type (HCC) Start: 05-03-2023 End: 05-03-2023 Patient encounter procedure Earl Simpson MD Work Phone: [facility] Start: 05-03-2023 End: 05-03-2023 Patient encounter status Earl Simpson MD Work Phone: [facility] Work Phone: Start: 05-01-2023 Refill Connie Singh Work Phone: Hematology/Oncology Comment on above: Refill Request Start: 04-28-2023 End: 04-28-2023 [facility] Comment on above: Multiple myeloma not having achieved remission (HCC) (Primary Dx) Start: 04-28-2023 [facility] Comment on above: SPP Injectab Oncolog y/hematology-Treatment Referral (Zarxio 300mcg/0.5mL); Insurance Authorization ([place] Appro[place]) Start: 04-28-2023 End: 04-28-[address] Work Phone: Nutrition Therapy Comment on above: Nutrition Telephone Start: 04-28-2023 End: 04-28-2023 Patient encounter status Ayan Maciel RD Work Phone: Nutrition Therapy Start: 04-24-2023 End: 04-24-2023 ambulatory Treatment Rm 9 [facility] Work Phone: Hematology/Oncology Comment on above: Multiple myeloma not having achieved remission (HCC) (Primary Dx) Start: 04-21-2023 End: 04-21-2023 ambulatory Treatment Rm 9 [facility] Work Phone: Hematology/Oncology Comment on above: Multiple myeloma not having achieved remission (HCC) (Primary Dx) Cancer Patient Suppo rt Start: 04-19-2023 Chart abstracting Lobito miller (Crc) Work Phone: Hematology/Oncology Comment on above: Informed Consent (IR [id number] [phone]) Start: 04-19-2023 End: 04-19-2023 ambulatory B[facility] 1 Work Phone: Hematology/Oncology Comment on above: Multiple myeloma not having achieved remission (HCC); Pre-transplant evaluation for stem cell transplant Start: 04-19-2023 End: 04-19-2023 Patient encounter procedure [facility] Room 1 Work Phone: [facility] Start: 04-19-2023 End: 04-19-2023 Patient encounter status [facility] 1 Work Phone: Hematology/Oncology Start: 04-18-2023 End: 04-18-2023 ambulatory Treatment Rm 6 [facility] Work Phone: Hematology/Oncology Comment on above: Multiple myeloma not having achieved remission (HCC) (Primary Dx) Start: 04-18-2023 End: 04-18-2023 ambulatory Bright Thao PHARMACIST CRITICAL CARE.PATTERNMAKER APPRENTICE WOOD Work Phone: Hematology/Oncology Comment on above: Multiple myeloma not having achieved remission (HCC) (Primary Dx) Start: 04-18-2023 End: 04-18-2023 Patient encounter procedure [place] Thao PHARMACIST CRITICAL CARE.PATTERNMAKER APPRENTICE WOOD [facility] Start: 04-17-2023 End: 04-18-2023 ambulatory [facility]m [facility] Main 5 Work Phone: Pulmonary Medicine Comment on above: Spirometry Opened In Error Multiple myeloma not having achieved remission (HCC) (Primary Dx); Other hyperlipidemia; Primary hypertension; Type 2 diabetes mellitus without complication, without long-term current use of insulin (HCC); Insomnia, unspecified type; Blurred vision Start: 04-17-2023 End: 04-17-2023 Patient encounter status Xr Ca LLD Work Phone: Radiology Start: 04-17-2023 End: 04-17-2023 Subsequent hospital visit by physician Xr Main Ca LLD Work Phone: Radiology Comment on above: Multiple myeloma not having achieved remission (HCC) [C90.00] Start: 04-17-2023 End: 04-18-2023 Patient encounter procedure Pulm Fct Lab Main 5 Work Phone: [facility] Start: 04-13-2023 Refill Connie Singh Work Phone: Hematology/Oncology Comment on above: Refill Request Start: 04-11-2023 End: 04-11-2023 ambulatory Treatment Rm 11 [facility] Work Phone: Hematology/Oncology Comment on above: Multiple myeloma not having achieved remission (HCC) (Primary Dx) Start: 04-10-2023 Orders Only Connie Singh Work Phone: Hematology/Oncology Comment on above: Multiple myeloma not having achieved remission (HCC) (Primary Dx) Start: 04-07-2023 End: 04-07-2023 ambulatory Treatment Rm 10 [facility] Work Phone: Hematology/Oncology Comment on above: Multiple myeloma not having achieved remission (HCC) (Primary Dx) Start: 03-28-2023 End: 03-28-2023 ambulatory Treatment Rm 10 [facility] Work Phone: Hematology/Oncology Comment on above: Multiple myeloma not having achieved remission (HCC) (Primary Dx) Multiple myeloma not having achieved remission (HCC) (Primary Dx); Disorder involving thrombocytopenia (HCC) Start: 03-28-2023 End: 03-28-2023 Patient encounter procedure Bright Thao APRN.PATTERNMAKER APPRENTICE WOOD Work Phone: [facility] [place] Start: 03-27-2023 Telephone encounter Connie pavon DO Work Phone: Hematology/Oncology Comment on above: Patient Question Start: 03-24-2023 Refill Connie Singh Work Phone: Hematology/Oncology Comment on above: Refill Request Start: 03-21-2023 End: 03-21-2023 ambulatory Treatment Rm 13 [facility] Work Phone: Hematology/Oncology Comment on above: Multiple myeloma not having achieved remission (HCC) (Primary Dx) Start: 02-28-2023 End: 02-28-2023 Visit (SP) Office Connie Mccain DO Work Phone: Hematology/Oncology Comment on above: Multiple myeloma not having achieved remission (HCC) (Primary Dx); Acute 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 acute cor pulmonale, unspecified pulmonary embolism type (HCC); Disorder involving thrombocytopenia (HCC) Start: 02-18-2023 Refill Connie Singh Work Phone: Hematology/Oncology Comment on above: Refill Request Start: 02-17-2023 Non-patient / Non-visit Dr. Kaela Lugo Work Phone: [facility] Start: 02-17-2023 End: 02-17-[address] Connie Lugo Work Phone: [facility] Work Phone: Start: 02-17-2023 End: 02-17-[address] Connie Lugo Work Phone: [facility] Start: 02-15-2023 End: 02-15-2023 ambulatory Treatment Rm 11 [facility] Work Phone: Hematology/Oncology Comment on above: Multiple myeloma not having achieved remission (HCC) (Primary Dx) Start: 02-13-2023 End: 02-13-2023 Chart abstracting Connie Mccain DO Work Phone: Hematology/Oncology Comment on above: Multiple myeloma not having achieved remission (HCC) (Primary Dx); Acute 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 acute cor pulmonale, unspecified pulmonary embolism type (HCC); Encounter for education; Disorder involving thrombocytopenia (HCC) Start: 02-13-2023 End: 02-13-2023 Patient encounter procedure Earl Simpson MD Work Phone: [facility] Start: 02-09-2023 Telephone encounter Connie pavon DO Work Phone: Hematology/Oncology Comment on above: Medication Problem; Results; Primer Inspector - Other (Question ) Start: 02-08-2023 End: 02-08-2023 ambulatory Treatment Rm 12 [facility] Work Phone: Hematology/Oncology Comment on above: Multiple myeloma not having achieved remission (HCC) (Primary Dx) blood sugar levels Start: 02-08-2023 E-mail encounter liseth myles caregiver [facility] Provider [facility] [place] Start: 02-03-2023 Telephone encounter Florence Momin RN He matology/Oncology Comment on above: Primer Inspector - O ther (C1D1 Post Treatment Call (Darzalex)) Start: 02-01-2023 End: 02-01-2023 ambulatory Treatment Rm 1 [facility] Work Phone: Hematology/Oncology Comment on above: Multiple myeloma not having achieved remission (HCC) (Primary Dx) Start: 01-31-2023 End: 01-31-2023 ambulatory Connie Mccain DO Work Phone: Hematology/Oncology Comment on above: Multiple myeloma not having achieved remission (HCC) (Primary Dx) Start: 01-31-2023 End: 01-31-2023 Patient encounter procedure Connie Mccain DO Work Phone: [facility] Start: 01-30-2023 Telephone encounter Florence Momin RN He matology/Oncology Comment on above: Primer Inspector - O ther (Darzalex Education ) Start: 01-21-2023 Refill Connie Singh Work Phone: Hematology/Oncology Comment on above: Refill Request Start: 01-18-2023 End: 01-18-2023 ambulatory Treatment Rm 9 [facility] Work Phone: Hematology/Oncology Comment on above: Multiple myeloma not having achieved remission (HCC) (Primary Dx) Multiple myeloma not having achieved remission (HCC) (Primary Dx); Acute 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 acute cor pulmonale, unspecified pulmonary embolism type (HCC) Start: 01-18-2023 End: 01-18-2023 Patient encounter procedure Connie Mccain DO Work Phone: [facility] Start: 01-18-2023 Telephone encounter Florence Momin RN He matology/Oncology Comment on above: Primer Inspector - O ther (Change in treatment ) Social Work Services Results (Blood sugar elevated) AVS 01/18/23 Start: 01-17-2023 Non-patient / Non-visit Dr. Kaela Lugo Work Phone: [facility] Start: 01-17-2023 Telephone encounter Connie pavon DO Work Phone: Hematology/Oncology Comment on above: Patient Question; Kaela jose Update Start: 01-17-2023 Non-patient / Non-visit Dr. Kaela Lugo Work Phone: [facility] Start: 01-16-2023 End: 01-17-2023 Evaluation and management of inpatient Dr. Connie Lugo Work Phone: [facility] Start: 01-16-2023 End: 01-17-[address] Connie Lugo Work Phone: [facility] Work Phone: Start: 01-16-2023 Telephone encounter Florence Momin RN He matology/Oncology Comment on above: Primer Inspector - O ther (Symptoms- SOB ) Start: 01-13-2023 Telephone encounter Connie pavon DO Work Phone: Hematology/Oncology Comment on above: Appointment Start: 01-12-2023 Telephone encounter Connie pavon DO Work Phone: Hematology/Oncology Comment on above: Appointment Start: 01-11-2023 End: 01-11-2023 ambulatory Treatment [address] Work Phone: Hematology/Oncology Comment on above: Multiple myeloma not having achieved remission (HCC) (Primary Dx) Start: 01-06-2023 Chart abstracting Temo Gill RN Hematology/Oncology Comment on above: Enrollment Step 1 (S 1803) Start: 01-04-2023 End: 01-04-2023 ambulatory Treatment [address] Work Phone: Hematology/Oncology Comment on above: Multiple myeloma not having achieved remission (HCC) (Primary Dx) Start: 01-03-2023 Chart abstracting Temo Gill RN Hematology/Oncology Comment on above: Consent (Observation ; Step 1 Only; S1803) Start: 01-03-2023 Nursing evaluation o f patient and report Temo Gill RN Hematology/Oncology Comment on above: Examination of parti cipant in clinical trial (Primary Dx) Start: 01-03-2023 End: 01-03-2023 Patient encounter procedure Connie Mccain DO Work Phone: [facility] [place] Start: 01-03-2023 End: 01-03-2023 ambulatory Connie Mccain DO Work Phone: Hematology/Oncology Comment on above: Multiple myeloma not having achieved remission (HCC) (Primary Dx) Start: 01-02-2023 End: 01-02-[address] Connie Lugo Work Phone: [facility] Work Phone: Start: 01-02-2023 End: 01-02-[address] Connie Lugo Work Phone: [facility], [facility] Start: 12-22-2022 End: 12-22-2022 Patient encounter procedure Kyleelavinia Colin DO Work Phone: Orthopaedics Comment on above: Pain in left hip (Pr imary Dx); Primary osteoarthritis of both hips; Ganglion cyst Start: 12-21-2022 End: 12-21-2022 ambulatory Treatment 8 [facility] Work Phone: Hematology/Oncology Comment on above: Multiple myeloma not having achieved remission (HCC) (Primary Dx) Refill Request Start: 12-21-2022 Chart abstracting Temo Gill RN Hematology/Oncology Start: 12-21-2022 Telephone encounter Connie pavon DO Work Phone: Hematology/Oncology Comment on above: Patient Update Start: 12-16-2022 End: 12-16-2022 Emergency department patient visit Dr. Connie Lugo Work Phone: [facility] Start: 12-06-2022 End: 12-06-2022 Subsequent hospital visit by physician Xr [facility] Work Phone: Radiology Comment on above: Multiple myeloma not having achieved remission (HCC) [C90.00] Start: 12-06-2022 End: 12-06-2022 ambulatory Connie Mccain DO Work Phone: Hematology/Oncology Comment on above: Multiple myeloma not having achieved remission (HCC) (Primary Dx); Hip pain, left; Paralabral cyst of left hip Start: 12-06-2022 End: 12-06-2022 Patient encounter procedure Connie Mccain DO Work Phone: [facility] [place] Start: 12-05-2022 End: 12-05-[address] Connie Lugo Work Phone: [facility] Start: 11-24-2022 Telephone encounter Connie pavon DO Work Phone: Hematology/Oncology Comment on above: Opened In Error Start: 11-23-2022 Refill Connie Singh Work Phone: Hematology/Oncology Comment on above: Refill Request Start: 11-23-2022 Telephone encounter Connie pavon DO Work Phone: Hematology/Oncology Comment on above: Pain Start: 11-23-2022 End: 11-23-2022 ambulatory Treatment Rm 5 [facility] Work Phone: Hematology/Oncology Comment on above: Multiple myeloma not having achieved remission (HCC) (Primary Dx); Leg swelling Start: 11-17-2022 Telephone encounter Florence Momin RN He matology/Oncology Comment on above: Primer Inspector - O ther (Toxicity Check/Oral Follow-up ) Start: 11-16-2022 End: 11-16-2022 ambulatory Treatment Rm 10 [facility] Work Phone: Hematology/Oncology Comment on above: Multiple myeloma not having achieved remission (HCC) (Primary Dx) Start: 11-15-2022 Orders Only Connie Singh Work Phone: Hematology/Oncology Comment on above: Multiple myeloma not having achieved remission (HCC) (Primary Dx); Vitamin D deficiency Start: 11-10-2022 Telephone encounter Florence Momin RN He matology/Oncology Comment on above: Primer Inspector - O ther (C1D1 First Treatment Call ) Start: 11-08-2022 Orders Only Connie Singh Work Phone: Hematology/Oncology Comment on above: Multiple myeloma not having achieved remission (HCC) (Primary Dx) Follow Up ([facility] st art) Start: 11-02-2022 Telephone encounter Connie pavon DO Work Phone: Hematology/Oncology Comment on above: Appointment Start: 10-28-2022 Telephone encounter Florence Momin RN He matology/Oncology Comment on above: Primer Inspector - O ther (Treatment Planning ) Start: 10-28-2022 End: 10-28-2022 [facility] Work Phone: H[facility]ology/Oncology Comment on above: Encounter for educat ion (Primary Dx) Start: 10-26-2022 End: 10-26-2022 ambulatory Connie Mccain DO Work Phone: Hematology/Oncology Comment on above: Multiple myeloma not having achieved remission (HCC) (Primary Dx); Vitamin D deficiency Start: 10-26-2022 End: 10-26-2022 Patient encounter procedure Connie Mccain DO Work Phone: [facility] Start: 10-26-2022 Telephone encounter Florence Momin RN He matology/Oncology Comment on above: Primer Inspector - O ther (Introduction ) Start: 10-06-2022 End: 10-06-2022 Subsequent hospital visit by physician Mri Radio [facility] (I-Stat/1.5t) Work Phone: Radiology Comment on above: 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] Start: 09-21-2022 Non-patient / Non-visit [employer]-C Paul Parikh [employer] HEL[employer]OPTER Work Phone: [facility] Start: 09-21-2022 End: 09-21-2022 Admission to same day surgery center [employer] HEL[employer]-Kj Parikh [employer]ACTICAL HELIC[employer]TER Work Phone: [facility] Start: 09-21-2022 End: 09-21-2022 ambulatory [employer]-Kj Parikh [employer]ICAL HEL[employer]TER Work Phone: [facility] Work Phone: Start: 09-09-2022 Telephone encounter Connie pavon DO Work Phone: Hematology/Oncology Comment on above: Follow Up Start: 09-08-2022 End: 09-08-2022 Patient encounter procedure [employer] HEL[employer]-Kj Parikh [employer]ICAL HEL[employer]TER Work Phone: [facility] Start: 09-01-2022 Telephone encounter Connie pavon DO Work Phone: Hematology/Oncology Comment on above: Results (MRI liver) Start: 09-01-2022 End: 09-01-2022 Subsequent hospital visit by physician Mri [facility] (1.5t) RADIO MRI [facility] Comment on above: Liver mass [R16.0] Start: 08-30-2022 Telephone encounter Connie pavon DO Work Phone: Hematology/Oncology Comment on above: Results (CT A/P. Nee d MRI liver.) Start: 08-26-2022 End: 08-26-2022 ambulatory Treatment 8 [facility] Work Phone: Hematology/Oncology Comment on above: IgG lambda monoclona l gammopathy (Primary Dx) Start: 08-26-2022 End: 08-26-2022 Subsequent hospital visit by physician Ct Prep [facility] Cat Scan Start: 08-25-2022 Telephone encounter Connie pavon DO Work Phone: Hematology/Oncology Comment on above: Orders Start: 08-15-2022 Telephone encounter Connie pavon DO Work Phone: Hematology/Oncology Comment on above: Results Start: 08-09-2022 End: 08-09-2022 Subsequent hospital visit by physician Ct [facility] (I-Stat) [facility] Comment on above: Multiple myeloma not having achieved remission (HCC) [C90.00] Start: 08-08-2022 Telephone encounter Connie pavon DO Work Phone: Hematology/Oncology Comment on above: Scheduling Start: 08-08-2022 End: 08-08-2022 Subsequent hospital visit by physician Xr [facility] [employer] Work Phone: Radiology Comment on above: Multiple myeloma not having achieved remission (HCC) [C90.00] Start: 08-08-2022 End: 08-08-2022 ambulatory Connie Mccain DO Work Phone: Hematology/Oncology Comment on above: Monoclonal gammopath y (Primary Dx); Multiple myeloma not having achieved remission (HCC); Secondary systemic amyloidosis (HCC); Dyspnea and respiratory abnormalities Start: 08-08-2022 End: 08-08-2022 Patient encounter procedure Connie Mccain DO Work Phone: [facility] Start: 07-11-2022 End: 07-11-2022 ambulatory [employer]-C Jair Maluer [employer] HEL[employer] Work Phone: [facility] Work Phone: Start: 07-11-2022 End: 07-11-2022 Patient encounter procedure [employer]-C Jair Hellinger [employer] HEL[employer]TER Work Phone: [facility] Start: 07-11-2022 End: 07-11-2022 Patient encounter procedure [employer]-C Jair Giovannylinger [employer] HEL[employer] Work Phone: [facility] Start: 04-27-2022 End: 04-27-2022 Patient encounter procedure [employer]-C Jair Giovannylinger [employer]ACTICAL HEL[employer]TER Work Phone: [facility] Start: 04-21-2022 Non-patient / Non-visit [employer]-C T erry Hellinger [employer] HEL[employer] Work Phone: [facility] Start: 04-20-2022 Non-patient / Non-visit [employer]-C T erry Hellinger [employer] HEL[employer]TER Work Phone: [facility] Start: 04-20-2022 End: 04-21-2022 Evaluation and management of inpatient [employer]-C Jair Hellinger [employer] HEL[employer]TER [facility] Start: 04-19-2022 Non-patient / Non-visit [employer]-C T erry Hellinger [employer]ICAL HEL[employer]TER Work Phone: [facility] Start: 04-19-2022 [facility] Start: 04-19-2022 Non-patient / Non-visit [employer]-C T erry Hellinger [employer] HEL[employer] Work Phone: [facility] Start: 04-17-2022 End: 04-17-2022 Emergency department patient visit [facility] Start: 06-08-2021 Chart Update Jair turpin Work Phone: [facility] Work Phone: Procedures Date Procedure Procedure Detail Performing Clinician Start: 05-05-2025 Laboratory test resu lt abnormal History of positive antibody on type and screen Temo Gill RN Start: 04-17-2025 Ct lower extremity w /o contrast material Nidhi Pat PA-C Work Phone: Start: 04-17-2025 Antibody screen CONNIE ZACARIAS Comment on above: Order Comment: Speci men Type: BLOOD SPECIMENOrdering Facility: [facility] Address: [address] [place] [address] Result Comment: Jessica ent has a previous clinically significant antibody Performed By: #### T SCR30 ####[facility] [id number] [place] [address] [place] Start: 04-03-2025 Mri brain brain stem w/o w/contrast material Geoff Young MD Work Phone: Start: 03-03-2025 Nerve conduction jovani dies 5-6 studies Ivet Colin DO Work Phone: Start: 02-26-2025 Mri spinal canal lum bar w/o contrast material Ivet Colin DO Work Phone: Start: 02-06-2025 Chemotherapy follow-up Chemotherapy Follow-up BRIGHT THAO Start: 10-18-2024 Arthrocentesis aspir &/inj major jt/bursa w/us Cortney Brunner PA-C Work Phone: Start: 10-03-2024 Mri brain brain stem w/o w/contrast material Geoff Young MD Work Phone: Start: 07-18-2024 Diagnostic bone [place] ow biopsies & aspirations Bright Thao PHARMACIST CRITICAL CARE.PATTERNMAKER APPRENTICE WOOD Work Phone: Start: 03-13-2024 [employer]-BIONTCoupad COVI D-19 VACCINE (2022- SEASON) AGE 12+ YR Darline Krishnan MD Work Phone: Start: 03-07-2024 Creatinine blood Connie Mccain DO Work Phone: Start: 02-02-2024 [address] diff[address] e detection Dr. Connie Lugo Work Phone: Start: 02-02-[address] Connie Lugo Work Phone: Start: 01-31-2024 Plain chest X-ray Dr. Jewell Lugo Work Phone: Start: 01-31-2024 CT of head without contrast Dr. Connie Lugo Work Phone: Start: 01-31-2024 SARS-CoV-2, Influenz a & RSV (PCR) Dr. Connie Lugo Work Phone: Start: 01-31-[address] Connie Lugo Work Phone: Start: 12-28-2023 Radionuclide imaging of perfusion of myocardium under exercise stress Dr. Connie Lugo Work Phone: Start: 11-27-2023 Plain chest X-ray Start: 07-26-2023 Gluc bld gluc mntr d ev cleared fda spec home use [facility] Provider Start: 07-24-2023 Diagnostic bone [place] ow aspirations Connie Aura Rush DO Work Phone: Start: 07-07-2023 Urnls dip stick/tabl et rgnt auto w/o microscopy Bulk Order Provider Start: 06-21-2023 Antibody rubeola Earl Simpson MD Work Phone: Start: 06-21-2023 Blood count complete auto&auto difrntl wbc Earl Simpson MD Work Phone: Start: 06-19-2023 Blood count complete auto&auto difrntl wbc Earl Simpson MD Work Phone: Start: 06-19-2023 Blood typing serologic abo Earl Simpson MD Work Phone: Start: 05-17-2023 ABO/RH RECHECK Ramya white MD Work Phone: Start: 05-17-2023 AUTO PROD CD34% FOR PANEL ORDERS Ramya Tavares MD Work Phone: Start: 05-17-2023 Basic metabolic pane l calcium total Nato Sutton MD Work Phone: Start: 04-19-2023 FLOW CYTOMETRY BONE MARROW HOLD (BMHOLD) Earl Simpson MD Work Phone: Start: 04-19-2023 Diagnostic bone [place] ow biopsies & aspirations Josie Amador APRN.PATTERNMAKER APPRENTICE WOOD Work Phone: Start: 04-17-2023 Radiologic exam ches t 2 views Earl Simpson MD Work Phone: Start: 01-16-2023 CT angiography of ch est with contrast Dr. Connie Lugo Work Phone: Start: 01-16-2023 Plain chest X-ray Dr. Jewell Lugo Work Phone: Start: 01-02-[address] Connie Lguo Work Phone: Start: 12-06-2022 Radiologic examinati on femur minimum 2 views Connie Mccain DO Work Phone: Start: 10-06-2022 Mri spinal canal cer vical w/o & w/contr matrl Connie Mccain DO Work Phone: Start: 09-21-2022 Colonoscopy [employer]-C Jair Parikh [employer] HEL[employer] Work Phone: Start: 09-01-2022 Mri abdomen w/o & w/contrast material Connie Mccain DO Work Phone: Start: 08-09-2022 Unlisted computed tomography procedure Connie Mccain DO Work Phone: Start: 04-21-2022 CT of abdomen and pe lvis without contrast [employer]-Kj Parikh [employer] HEL[employer]TER Work Phone: Start: 04-19-2022 Magnetic resonance angiography of head without contrast [employer] HEL[employer]-C Jair Parikh [employer] HEL[employer] Work Phone: Start: 04-19-2022 MRI of brain without contrast [employer] HEL[employer]-Kj Parikh [employer] HEL[employer] Work Phone: Start: 04-19-2022 Magnetic resonance angiography of neck without contrast [employer] HELICOP[employer]-Kj Parikh [employer] HEL[employer]TER Work Phone: Start: 04-19-2022 CT of head without contrast Start: 04-19-2022 Plain chest X-ray Start: 06-02-2021 End: 06-02-2021 Colonoscopy Jair Parikh Work Phone: Bacteria identified in Blood by Culture [employer]-Kj Parikh [employer] HEL[employer]TER Work Phone: Enteric Bacteriology Dr. Connie Lugo Work Phone: Lactoferrin measurement [employer] HEL[employer]-Kj Parikh [employer] HEL[employer]TER Work Phone: Ova OR parasites identification [employer] HEL[employer]-Kj Parikh [employer] HEL[employer]TER Work Phone: Viral antigen assay Dr. Connie Lugo Work Phone: Plan of Treatment Date Care Activity Detail Author Start: 05-13-2034 Urine microalbumin profile DTaP,Tdap,Td Vaccine (5 - Td or Tdap) [facility] Start: 03-13-2034 Urine microalbumin profile DTaP,Tdap,Td Vaccine (4 - Td or Tdap) [facility] Start: 01-01-2034 Urine microalbumin profile DTaP,Tdap,Td Vaccine (3 - Td or Tdap) [facility] Start: 05-05-2032 Urine microalbumin profile [facility] Start: 03-10-2028 LIPID SCREEN LIPID SCREEN [facility] Start: 04-11-2026 DIABETES SCREEN DIABETES SCREEN [facility] Start: 04-07-2026 DIABETES SCREEN DIABETES SCREEN [facility] Start: 03-28-2026 DIABETES SCREEN DIABETES SCREEN [facility] Start: 03-21-2026 BP Controlled (<130/80) BP Controlled (<130/80) [facility] Start: 03-21-2026 DIABETES SCREEN DIABETES SCREEN [facility] Start: 03-21-2026 zzBP Controlled (<130/80) (Retired) zzBP Controlled (<130/80) (Retired) [facility] Start: 02-28-2026 DIABETES SCREEN DIABETES SCREEN [facility] Start: 02-15-2026 DIABETES SCREEN DIABETES SCREEN [facility] Start: 02-08-2026 DIABETES SCREEN DIABETES SCREEN [facility] Start: 02-06-2026 BP Controlled (<130/80) BP Controlled (<130/80) [facility] Start: 01-31-2026 DIABETES SCREEN DIABETES SCREEN [facility] Start: 01-25-2026 DIABETES SCREEN DIABETES SCREEN [facility] Start: 01-18-2026 DIABETES SCREEN DIABETES SCREEN [facility] Start: 01-11-2026 DIABETES SCREEN DIABETES SCREEN [facility] Start: 01-09-2026 BP Controlled (<130/80) BP Controlled (<130/80) [facility] Start: 01-03-2026 DIABETES SCREEN DIABETES SCREEN [facility] Start: 12-30-2025 BP Controlled (<130/80) BP Controlled (<130/80) [facility] Start: 12-21-2025 DIABETES SCREEN DIABETES SCREEN [facility] Start: 12-06-2025 DIABETES SCREEN DIABETES SCREEN [facility] Start: 11-23-2025 DIABETES SCREEN DIABETES SCREEN [facility] Start: 11-19-2025 BP Controlled (<130/80) BP Controlled (<130/80) [facility] Start: 11-16-2025 DIABETES SCREEN DIABETES SCREEN [facility] Start: 11-14-2025 BP Controlled (<130/80) BP Controlled (<130/80) [facility] Start: 11-09-2025 DIABETES SCREEN DIABETES SCREEN [facility] Start: 10-26-2025 DIABETES SCREEN DIABETES SCREEN [facility] Start: 10-17-2025 BP Controlled (<130/80) BP Controlled (<130/80) [facility] Start: 10-17-2025 Hemoglobin A1c measurement HbA1C [facility] Start: 10-08-2025 BP Controlled (<130/80) BP Controlled (<130/80) [facility] Start: 09-18-2025 BP Controlled (<130/80) BP Controlled (<130/80) [facility] Start: 08-24-2025 DIABETES SCREEN DIABETES SCREEN [facility] Start: 08-22-2025 BP Controlled (<130/80) BP Controlled (<130/80) [facility] Start: 08-08-2025 DIABETES SCREEN DIABETES SCREEN [facility] Start: 07-04-2025 End: 07-04-2025 Patient encounter procedure 07/04/2025 10:00 AM EDT Office Visit Orthopaedics [address] [phone] Gail Rock MD [address] [phone] 2nd post op [facility] 05/22/25 Orthopaedics Comment on above: 2nd post op [facility] 05/22/25 Start: 06-27-2025 BP Controlled (<130/80) BP Controlled (<130/80) [facility] Start: 06-26-2025 End: 06-26-2025 Patient encounter procedure 06/26/2025 9:30 AM EDT Visit (SP) Office Hematology/Oncology [address] [place], [place] [phone] Connie Mccain DO [address] [facility] [place] [address] QMO OV/CLINICAL TRIAL/ON REVLIMID/ZOMETA TODAY* Hematology/Oncology Comment on above: QMO OV/CLINICAL TRIAL/ON REVLIMID/ZOMETA TODAY* Start: 06-26-2025 End: 06-26-2025 ambulatory [facility] Comment on above: TRIAL PATIENT - CBC/CMP(S)/[facility]/ 2nd Start: 06-23-2025 Influenza vaccination Influenza Vaccine (#1) [facility] Start: 06-13-2025 End: 06-13-2025 Patient encounter procedure 06/13/2025 1:45 PM EDT Office Visit Orthopaedics [address] [address] Gail Rock MD [address] [address] 2nd post op [facility] 04/24/25 Orthopaedics Comment on above: 2nd post op [facility] 04/24/25 Start: 06-06-2025 End: 06-06-2025 Patient encounter procedure 06/06/2025 10:00 AM EDT Office Visit Orthopaedics [address] [address] Azael Martinez PA-C [address] [place] [address] 1st post op [facility] 05/22/25 Orthopaedics Comment on above: 1st post op [facility] 05/22/25 Start: 05-30-2025 End: 05-30-2025 Follow-up encounter 05/30/2025 10:00 AM EDT [facility] [address] [address] Eunice Morales PA-C [address] [place] [address] follow up after injection [facility] Comment on above: follow up after injection Start: 05-30-2025 End: 05-30-2025 Patient encounter procedure 05/30/2025 8:50 AM EDT Visit (SP) Office Hematology/Oncology [address] [place] [address] Connie Mccain DO [address] [place] [address] QMO OV/CLINICAL TRIAL/ON REVLIMID/ZOMETA * Hematology/Oncology Comment on above: QMO OV/CLINICAL TRIAL/ON REVLIMID/ZOMETA * Start: 05-30-2025 End: 05-30-2025 ambulatory 05/30/2025 8:30 AM EDT Results Only [facility] [address] [place] [address] TRIAL PATIENT - CBC/CMP(S)/[facility]/ [facility] Comment on above: TRIAL PATIENT - CBC/CMP(S)/[facility]/ Start: 05-29-2025 BP Controlled (<130/80) BP Controlled (<130/80) [facility] in Start: 05-29-2025 End: 05-29-2025 Patient encounter procedure Hematology/Oncology Comment on above: QMO OV/CLINICAL TRIAL/ON REVLIMID/ZOMETA TODAY* QMO OV/CLINICAL TRIA L/ON REVLIMID/ZOMETA * Start: 05-29-2025 End: 05-29-2025 ambulatory [facility] Comment on above: TRIAL PATIENT - CBC/CMP(S)/[facility]/ 2nd Start: 05-27-2025 End: 05-27-2025 Follow-up encounter 05/27/2025 11:45 AM EDT [facility] Neurology [address] [address] Gilbert Ramirez APRN.PATTERNMAKER APPRENTICE WOOD [address] [place] [address] follow up Neurology Comment on above: follow up Start: 05-22-2025 End: 05-22-2025 Admission to same day surgery center [facility] Comment on above: ROBOTIC ASSISTED TOTAL HIP ARTHROPLASTY Start: 05-22-2025 End: 05-22-2025 Arthrp acetblr/prox fem prostc agrft/algrft [place] OR Start: 05-22-2025 Subsequent hospital visit by physician 05/22/2025 7:30 AM EDT Hospital Encounter [facility] [address] [place] [address] Gail Rock MD [address] [address] Primary osteoarthritis of right hip [M16.11] [facility] Comment on above: Primary osteoarthritis of right hip [M16 .11] Start: 05-21-2025 End: 05-21-2025 Follow-up encounter 05/21/2025 4:00 PM EDT Social Work Neurology [address] [address] Kemi Kennedy LISW [address] [place] [address] social work follow up per PT Neurology Comment on above: social work follow up per PT Start: 05-09-2025 End: 05-09-2025 Patient encounter procedure 05/09/2025 2:30 PM EDT Office Visit Orthopaedics [address] [phone] Nidhi Pat PA-C [address] [place], [place] [phone] 1st post op [facility] 04/24/25 Orthopaedics Comment on above: 1st post op [facility] 04/24/25 Start: 05-01-2025 End: 07-31-2025 Potassium [Moles/volume] in Serum or Plasma POTASSIUM Lab Routine Right bundle branch block Mixed hyperlipidemia Primary hypertension Other chronic 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 acute cor pulmonale (HCC) Type 2 diabetes mellitus without complication, without long-term current use of insulin (HCC) Lewy body dementia, unspecified dementia severity, unspecified whether behavioral, psychotic, or mood disturbance or anxiety (HCC) Multiple myeloma not having achieved remission (HCC) Expected: 05/01/2025, Expires: 07/31/2025 [facility] Work Phone: Comment on above: Expected: 05/01/2025, Expires: Start: 05-01-2025 End: 05-01-2025 Admission to same day surgery center 05/01/2025 12:40 PM EDT PAT Pre Anesthesia [address] [place], [place] [id number] 1, Pacc [place] [address] [place] [address] surgery date 05/22 Pre Anesthesia Comment on above: surgery date 05/22 Start: 05-01-2025 End: 05-01-2025 Patient encounter procedure Hematology/Oncology Comment on above: QMO OV/CLINICAL TRIAL/ON REVLIMID/ZOMETA * QMO OV/CLINICAL TRIA L/ON REVLIMID/(being Held)ZOMETA * Start: 05-01-2025 End: 05-01-2025 ambulatory 05/01/2025 10:45 AM EDT Results Only [facility] [address] [place] [address] TRIAL PATIENT - CBC/CMP(S)/[facility]/ [facility] Comment on above: TRIAL PATIENT - CBC/CMP(S)/[facility]/ Start: 04-24-2025 End: 04-24-2025 Arthrp acetblr/prox fem prostc agrft/algrft ROBOTIC ASSISTED TOTAL HIP ARTHROPLASTY Primary osteoarthritis of right hip 04/24/2025 2:06 PM EDT ME OR Start: 04-24-2025 End: 04-24-2025 Njx anes&/strd w/img tfrml edrl lmbr/sac 1 lvl ME OR Start: 04-24-2025 End: 04-24-2025 Social Work Neurology Comment on above: social worker masters Lumbar radiculopathy [M54.16], 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, 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] INJECTION(S) ANESTHE TIC AGENT AND STEROID TRANSFORAMINAL EPIDURAL LUMBAR W/IMAGE GUIDANCE FLUORO OR CT Lumbar radiculopathy [M54.16], 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, 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], Primary osteoarthritis of right hip [M16.11] ROBOTIC ASSISTED TOT AL HIP ARTHROPLASTY Primary osteoarthrit is of right hip [M16.11] Start: 04-17-2025 End: 04-17-2025 Patient encounter procedure 04/17/2025 10:30 AM EDT Appointment Radiology [address] [place] [address] DOS 04/24/25 Radiology Comment on above: LEONARD CT DOS 04/24/25 Start: 04-17-2025 End: 04-17-2025 Anesthesia consultation 04/17/2025 8:50 AM EDT PAT Pre Anesthesia [address] [place] [address] 2, Pacc [place] [address] [place] [address] DOS 04/24 Pre Anesthesia Comment on above: DOS 04/24 Start: 04-16-2025 End: 04-16-2025 Patient encounter procedure 04/16/2025 9:45 AM EDT Office Visit Orthopaedics [address] [address] Ivet Colin DO [address] [place] [address] right hip pain Orthopaedics Comment on above: right hip pain Start: 04-14-2025 End: 04-14-2025 Follow-up encounter 04/14/2025 2:30 PM EDT [facility] Neurology [address] [place] [address] Gilbert Ramirez APRN.PATTERNMAKER APPRENTICE WOOD [address] [place] [address] follow up Neurology Comment on above: follow up Start: 04-08-2025 End: 04-08-2025 Patient encounter procedure 04/08/2025 10:30 AM EDT Office Visit [place] [phone] [facility] [place] [phone] Geoff Young MD [address] [facility] [address] 6 month follow up [facility] Comment on above: 6 month follow up Start: 04-04-2025 Hepatitis B surface antibody level LDL Cholesterol [facility] Start: 04-03-2025 Covid-19 Vaccine (11 - Moderna risk season) Covid-19 Vaccine (11 - Moderna risk season) [facility] Start: 04-03-2025 End: 04-03-2025 Patient encounter procedure Radiology Comment on above: Vestibular schwannoma (HCC) [D33.3] QMO OV/CLINICAL TRIA L/ON REVLIMID/ZOMETA * Vestibular schwannom a, mri 04/03 [facility] DE /QMO OV/CLINICAL TRIAL/ON REVLIMID/ZOMETA * Start: 04-03-2025 End: 04-03-2025 ambulatory [facility] Comment on above: TRIAL PATIENT - CBC/CMP(S)/[facility]/ 2nd Start: 03-21-2025 End: 03-21-2025 Patient encounter procedure 03/21/2025 9:20 AM EDT Office Visit [facility] [address] [address] Eunice Morales PADottie [address] [place] [phone] Back Pain [facility] Comment on above: Back Pain Start: 03-13-2025 BP Controlled (<130/80) BP Controlled (<130/80) [facility] Start: 03-07-2025 BP Controlled (<130/80) BP Controlled (<130/80) [facility] Start: 03-07-2025 End: 03-07-2025 Follow-up encounter 03/07/2025 1:30 PM EDT [facility] Orthopaedics [address] [phone] Ivet Colin, DO [address] [facility] [place] [address] MRI Follow up Orthopaedics Comment on above: MRI Follow up Start: 03-06-2025 End: 03-06-2025 Patient encounter procedure 03/06/2025 9:50 AM EDT Visit (SP) Office Hematology/Oncology [address] [place], [place] [phone] Connie Mccain, DO [address] [facility] [place] [address] QMO OV/CLINICAL TRIAL/ON REVLIMID/ZOMETA TODAY* Hematology/Oncology Comment on above: QMO OV/CLINICAL TRIAL/ON REVLIMID/ZOMETA TODAY* Start: 03-06-2025 End: 03-06-2025 ambulatory [facility] Comment on above: TRIAL PATIENT - CBC/CMP(S)/[facility]/ 2nd Start: 03-03-2025 End: 03-03-2025 ambulatory 03/03/2025 1:40 PM EDT Procedure Neurology [address] [place] [address] r Lavinia CRUZ Neurology Comment on above: alisa CRUZ Start: 02-26-2025 End: 02-26-2025 Patient encounter procedure 02/26/2025 10:15 AM EDT Office Visit Orthopaedics [address] [address] Ivet Colin DO [address] [place] [address] B/L Knee Pain Orthopaedics Comment on above: B/L Knee Pain Start: 02-24-2025 End: 02-24-2025 Follow-up encounter 02/24/2025 3:15 PM EDT [facility] Neurology [address] [address] Gilbert Ramirez, PHARMACIST CRITICAL CARE.PATTERNMAKER APPRENTICE WOOD [address] [place] [address] follow up Neurology Comment on above: follow up Start: 02-13-2025 End: 02-13-2025 ambulatory 02/13/2025 10:30 AM EDT Infusion Center Hematology/Oncology [address] [place] [address] 2nd Hematology/Oncology Comment on above: 2nd Start: 02-10-2025 End: 02-10-2025 Patient encounter procedure 02/10/2025 10:50 AM EDT Visit (SP) Office Hematology/Oncology [address] [place] [address] Connie Mccain, DO [address] [place] [phone] QMO OV/CLINICAL TRIAL/ON REVLIMID/ZOMETA TODAY* Hematology/Oncology Comment on above: QMO OV/CLINICAL TRIAL/ON REVLIMID/ZOMETA TODAY* Start: 02-10-2025 End: 02-10-2025 ambulatory 02/10/2025 10:30 AM EDT Results Only [facility] [address] [place] [address] TRIAL PATIENT - CBC/CMP(S)/[facility]/ [facility] Comment on above: TRIAL PATIENT - CBC/CMP(S)/[facility]/ Start: 02-06-2025 End: 02-06-2025 Patient encounter procedure 02/06/2025 9:30 AM EDT Visit (SP) Office Hematology/Oncology [address] [place] [address] Connie Mccain, DO [address] [place] [address] QMO OV/CLINICAL TRIAL/ON REVLIMID/ZOMETA TODAY* Hematology/Oncology Comment on above: QMO OV/CLINICAL TRIAL/ON REVLIMID/ZOMETA TODAY* Start: 02-06-2025 End: 02-06-2025 ambulatory 02/06/2025 9:15 AM EDT Results Only [facility] [address] [place] [address] TRIAL PATIENT - CBC/CMP(S)/[facility]/ [facility] Comment on above: TRIAL PATIENT - CBC/CMP(S)/[facility]/ Start: 01-20-2025 End: 01-20-2025 ambulatory 01/20/2025 1:45 PM EDT [facility] Neurology [address] [place], [place] [phone] Gilbert Ramirez APRN.PATTERNMAKER APPRENTICE WOOD [address] [place] [address] [facility] Neurology Comment on above: [facility] Start: 01-10-2025 End: 01-10-2025 Patient encounter procedure 01/10/2025 2:30 PM EDT Visit (SP) Office Hematology/Oncology [address] [place] [address] Connie Mccain DO [address] [place] [address] QMO OV/CLINICAL TRIAL/ON REVLIMID/ZOMETA TODAY* Hematology/Oncology Comment on above: QMO OV/CLINICAL TRIAL/ON REVLIMID/ZOMETA TODAY* Start: 01-10-2025 End: 01-10-2025 ambulatory 01/10/2025 2:15 PM EDT Results Only [facility] [address] [place] [address] TRIAL PATIENT - CBC/CMP(S)/[facility]/ [facility] Comment on above: TRIAL PATIENT - CBC/CMP(S)/[facility]/ Start: 01-10-2025 BP Controlled (<130/80) BP Controlled (<130/80) [facility] Start: 01-09-2025 End: 01-09-2025 Patient encounter procedure 01/09/2025 11:30 AM EDT Visit (SP) Office Hematology/Oncology [address] [place] [address] Connie Mccain, DO [address] [place] [address] QMO OV/CLINICAL TRIAL/ON REVLIMID* Hematology/Oncology Comment on above: QMO OV/CLINICAL TRIAL/ON REVLIMID* Start: 01-09-2025 End: 01-09-2025 ambulatory 01/09/2025 11:15 AM EDT Results Only [facility] [address] [place] [address] TRIAL PATIENT - CBC/CMP(S)/[facility]/ [facility] Comment on above: TRIAL PATIENT - CBC/CMP(S)/[facility]/ Start: 12-30-2024 End: 12-30-2024 Patient encounter procedure Neurology Comment on above: Mild cognitive impairment [G31.84] Lumbar Puncture Start: 12-25-2024 End: 03-19-2025 aPTT in Platelet poor plasma by Coagulation assay ACTIVATED PARTIAL THROMBOPLASTIN TIME Lab Routine Screening for condition Expected: 12/25/2024 (Approximate), Expires: 03/19/2025 [facility] Work Phone: Comment on above: Expected: 12/25/2024 (Approximate), Expi res: 03/19/2025 Start: 12-25-2024 End: 03-19-2025 PT panel - Platelet poor plasma by Coagulation assay PROTHROMBIN TIME Lab Routine Screening for condition Expected: 12/25/2024 (Approximate), Expires: 03/19/2025 [facility] Comment on above: Expected: 12/25/2024 (Approximate), Expi res: 03/19/2025 Start: 12-24-2024 End: 12-24-2024 ambulatory 12/24/2024 10:30 AM EST Results Only [facility] [address] [place] [address] Labs [facility] Comment on above: Labs Start: 12-23-2024 End: 03-24-2025 Cell count panel - Cerebral spinal fluid CSF CELL COUNT Lab Routine Mild cognitive impairment Expected: 12/23/2024, Expires: 03/24/2025 [facility] Comment on above: Expected: 12/23/2024, Expires: Start: 12-23-2024 End: 03-24-2025 Glucose [Mass/volume] in Cerebral spinal fluid GLUCOSE CSF Lab Routine Mild cognitive impairment Expected: 12/23/2024, Expires: 03/24/2025 [facility] Comment on above: Expected: 12/23/2024, Expires: Start: 12-23-2024 End: 03-24-2025 MISC SEND OUT TST 1 MISC SEND OUT TST 1 Lab Routine Mild cognitive impairment REM sleep behavior disorder Expected: 12/23/2024, Expires: 03/24/2025 [facility] Comment on above: Expected: 12/23/2024, Expires: Start: 12-23-2024 End: 03-24-2025 Protein [Mass/volume] in Cerebral spinal fluid PROTEIN CSF Lab Routine Mild cognitive impairment Expected: 12/23/2024, Expires: 03/24/2025 [facility] Comment on above: Expected: 12/23/2024, Expires: Start: 12-23-2024 End: 03-24-2025 Reagin Ab [Titer] in Cerebral spinal fluid by VDRL VDRL CSF Lab Routine Mild cognitive impairment Expected: 12/23/2024, Expires: 03/24/2025 [facility] Comment on above: Expected: 12/23/2024, Expires: Start: 12-21-2024 BP Controlled (<130/80) BP Controlled (<130/80) [facility] Start: 12-18-2024 End: 12-18-2024 Follow-up encounter 12/18/2024 2:00 PM EST [facility] Neurology [address] [place], [place] [phone] Gilbert Ramirez, TWYLA.PATTERNMAKER APPRENTICE WOOD [address] [place] [phone] follow up Neurology Comment on above: follow up Start: 12-14-2024 BP Controlled (<130/80) BP Controlled (<130/80) [facility] Start: 12-12-2024 End: 12-12-2024 ambulatory Hematology/Oncology Comment on above: 2nd Start: 12-12-2024 End: 12-12-2024 Patient encounter procedure 12/12/2024 9:50 AM EST Visit (SP) Office Hematology/Oncology [address] [place] [address] Connie Mccain DO [address] [place] [phone] QMO OV/CLINICAL TRIAL/ON REVLIMID/ZOMETA TODAY* Hematology/Oncology Comment on above: QMO OV/CLINICAL TRIAL/ON REVLIMID/ZOMETA TODAY* Start: 12-12-2024 End: 12-12-2024 ambulatory 12/12/2024 9:15 AM EST Results Only [facility] [address] [place] [address] TRIAL PATIENT - CBC/CMP(S)/[facility]/ [facility] Comment on above: TRIAL PATIENT - CBC/CMP(S)/[facility]/ Start: 11-29-2024 End: 11-29-2024 Patient encounter procedure 11/29/2024 1:15 PM EST Office Visit Neurology [address] [address] Gilbert Ramirez APRN.PATTERNMAKER APPRENTICE WOOD [address] [place] [address] Memory loss [R41.3] Neurology Comment on above: Memory loss [R41.3] Start: 11-28-2024 Covid-19 Vaccine () Covid-19 Vaccine () [facility] Start: 11-27-2024 End: 11-27-2024 Patient encounter procedure 11/27/2024 9:30 AM EST Office Visit Orthopaedics [address] [address] Ivet Colin DO [address] [place] [address] follow up for emg results (R/S from provider out on 10/31) Orthopaedics Comment on above: follow up for emg results (R/S from prov ider out on 10/31) Start: 11-19-2024 End: 11-19-2024 Patient encounter procedure 11/19/2024 10:30 AM EST Office Visit Neurology [address] [place], [place] [phone] Betsy Kemp PA-C [address] [place] [address] Follow up Neurology Comment on above: Follow up Start: 11-16-2024 BP Controlled (<130/80) BP Controlled (<130/80) [facility] in Start: 11-14-2024 End: 11-14-2024 Patient encounter procedure 11/14/2024 9:30 AM EST Visit (SP) Office Hematology/Oncology [address] [place] [address] Connie Mccain, DO [address] [place] [address] QMO OV/CLINICAL TRIAL/ON REVLIMID* Hematology/Oncology Comment on above: QMO OV/CLINICAL TRIAL/ON REVLIMID* Start: 11-14-2024 End: 11-14-2024 ambulatory 11/14/2024 9:00 AM EST Results Only [facility] [address] [place] [address] TRIAL PATIENT - CBC/CMP(S)/[facility]/ [facility] Comment on above: TRIAL PATIENT - CBC/CMP(S)/[facility]/ Start: 10-31-2024 End: 10-31-2024 Patient encounter procedure 10/31/2024 10:00 AM EST Office Visit Orthopaedics [address] [place] [address] Ivet Colin, DO [address] [place] [address] follow up for emg results Orthopaedics Comment on above: follow up for emg results Start: 10-23-2024 Advance Directive Discussion Advance Directive Discussion [facility] Start: 10-18-2024 End: 10-18-2024 Patient encounter procedure Radiology Comment on above: Right Hip Injection Left Hip Injection Start: 10-17-2024 End: 10-17-2024 Patient encounter procedure Hematology/Oncology Comment on above: QMO OV/CLINICAL TRIAL/ON REVLIMID* QMO OV/CLINICAL TRIA L/ON REVLIMID* [facility] Start: 10-17-2024 End: 10-17-2024 ambulatory 10/17/2024 9:00 AM EST Results Only [facility] [address] [place] [address] TRIAL PATIENT - CBC/CMP(S)/[facility]/ [facility] Comment on above: TRIAL PATIENT - CBC/CMP(S)/[facility]/ Start: 10-08-2024 End: 10-08-2024 Patient encounter procedure [facility] Comment on above: 6 month follow up 6 month follow up, m ri 10/03 Start: 10-03-2024 End: 10-03-2024 Patient encounter procedure Radiology Comment on above: Multiple myeloma not having achieved rem ission (HCC) [C90.00] Start: 10-02-2024 End: 10-02-2024 Patient encounter procedure 10/02/2024 1:30 PM EST Office Visit Orthopaedics [address] [phone] Ivet Colin DO [address] [place] [address] Left/Right Knee Pain ([address] Colin) Orthopaedics Comment on above: Left/Right Knee Pain ([address] Colin) Start: 09-21-2024 BP Controlled (<130/80) BP Controlled (<130/80) [facility] Start: 09-18-2024 End: 09-18-2024 Patient encounter procedure 09/18/2024 8:30 AM EST Visit (SP) Office Hematology/Oncology [address] [place] [address] Connie Mccain DO [address] [place] [address] QMO OV/CLINICAL TRIAL/ON REVLIMID/ZOMETA TODAY* Hematology/Oncology Comment on above: QMO OV/CLINICAL TRIAL/ON REVLIMID/ZOMETA TODAY* Start: 09-18-2024 End: 09-18-2024 [facility] Comment on above: TRIAL PATIENT - CBC/CMP(S)/[facility]/ 2nd Start: 08-29-2024 End: 08-29-2024 ambulatory 08/29/2024 10:00 AM EST Results Only [facility] [address] [place] [address] BMP [facility] Comment on above: BMP Start: 08-22-2024 End: 08-22-2024 Patient encounter procedure 08/22/2024 9:30 AM EDT Visit (SP) Office Hematology/Oncology [address] [place] [address] Connie Mccain DO [address] [place] [address] QMO OV/CLINICAL TRIAL/ON REVLIMID* Hematology/Oncology Comment on above: QMO OV/CLINICAL TRIAL/ON REVLIMID* Start: 08-22-2024 End: 08-22-2024 ambulatory 08/22/2024 9:00 AM EDT Results Only [facility] [address] [place] [address] TRIAL PATIENT - CBC/CMP(S)/[facility]/ [facility] Comment on above: TRIAL PATIENT - CBC/CMP(S)/[facility]/ Start: 07-25-2024 End: 07-25-2024 Patient encounter procedure 07/25/2024 9:30 AM EDT Visit (SP) Office Hematology/Oncology [address] [place] [address] Bright Thao APRN.PATTERNMAKER APPRENTICE WOOD [address] [place] [address] QMO OV/CLINICAL TRIAL/ON REVLIMID* Hematology/Oncology Comment on above: QMO OV/CLINICAL TRIAL/ON REVLIMID* Start: 07-25-2024 End: 07-25-2024 ambulatory 07/25/2024 9:00 AM EDT Results Only [facility] [address] [place] [address] TRIAL PATIENT - CBC/CMP(S)/[facility]/ [facility] Comment on above: TRIAL PATIENT - CBC/CMP(S)/[facility]/ Start: 07-21-2024 BP Controlled (<130/80) BP Controlled (<130/80) [facility] Start: 07-18-2024 End: 10-17-2024 BONE MARROW ANALYSIS [facility] Work Phone: Comment on above: Expected: 07/18/2024 (Approximate), Expi res: 10/17/2024 Start: 07-18-2024 End: 10-17-2024 BONE MARROW CHROMOSOME ANAL [facility] Comment on above: Expected: 07/18/2024 (Approximate), Expi res: 10/17/2024 Start: 07-18-2024 End: 10-17-2024 DNA EXTRACTION BONE MARROW (BUFFY COAT) [facility] Comment on above: Expected: 07/18/2024 (Approximate), Expi res: 10/17/2024 Start: 07-18-2024 End: 10-17-2024 FISH FOR PLASMA CELL MYELOMA [facility] Comment on above: Expected: 07/18/2024 (Approximate), Expi res: 10/17/2024 Start: 07-18-2024 End: 10-17-2024 FLOW CYTOMETRY FOR LEUKEMIA/LYMPHOMA (FCLL) [facility] Comment on above: Expected: 07/18/2024 (Approximate), Expi res: 10/17/2024 Start: 07-18-2024 End: 10-17-2024 MISC SEND OUT TST 1 MISC SEND OUT TST 1 Lab Routine Multiple myeloma not having achieved remission (HCC) Examination of participant in clinical trial Expected: 07/18/2024 (Approximate), Expires: 10/17/2024 [facility] Comment on above: Expected: 07/18/2024 (Approximate), Expi res: 10/17/2024 Start: 07-18-2024 End: 07-18-2024 ambulatory [facility] Comment on above: CBC* CBC/BMBX/PBSX2* Start: 07-15-2024 End: 07-15-2024 ambulatory 07/15/2024 1:30 PM EDT OT/PT/Speech Visit [facility] Occupation [facility] [address] [place] [address] Ally Rosenthal, OT/L Memory loss [R41.3] [facility] Occupation [facility] Comment on above: Memory loss [R41.3] Start: 07-10-2024 BP Controlled (<130/80) BP Controlled (<130/80) [facility] Start: 07-08-2024 Shingrix Vaccine (2 of 2) Shingrix Vaccine (2 of 2) [facility] Start: 07-07-2024 BP Controlled (<130/80) BP Controlled (<130/80) [facility] Start: 06-27-2024 End: 06-27-2024 Patient encounter procedure 06/27/2024 8:30 AM EDT Visit (SP) Office Hematology/Oncology [address] [place] [address] Connie Mccain DO [address] [place], [place] [id number] OV/CLINICAL TRIAL/ON REVLIMID/ZOMETA TODAY* Hematology/Oncology Comment on above: OV/CLINICAL TRIAL/ON REVLIMID/ZOMETA TOD AY* Start: 06-27-2024 End: 06-27-2024 ambulatory [facility] Comment on above: TRIAL PATIENT - CBC/CMP(S)/MYELOMA LABS/ Q3MO ZOMETA/LABS & O V EARLY/AUTH EXP ?* 2nd Start: 06-23-2024 Covid-19 Vaccine ( season) Covid-19 Vaccine ( season) [facility] Start: 06-23-2024 Covid-19 Vaccine ( season) Covid-19 Vaccine ( season) [facility] Start: 06-23-2024 Influenza vaccination Influenza Vaccine (#1) [facility] Start: 06-20-2024 End: 06-20-2024 Patient encounter procedure 06/20/2024 12:30 PM EDT Office Visit Neuropyschology [address] [place] [address] Roberta Morse, PhD [address] [place] [address] Memory loss [R41.3] Neuropyschology Comment on above: Memory loss [R41.3] Start: 06-11-2024 Hepatitis B screening URINE ALBUMIN:CREATININE RATIO [facility] Start: 06-05-2024 End: 06-05-2024 Patient encounter procedure 06/05/2024 7:30 AM EDT Office Visit Neurology [address] [place] [address] Betsy Kemp PA-C [address] [place] [address] Altered mental status, unspecified altered mental status type [R41.82] Neurology Comment on above: Altered mental status, unspecified alter ed mental status type [R41.82] Start: 05-30-2024 End: 05-30-2024 Patient encounter procedure 05/30/2024 12:10 PM EDT Visit (SP) Office Hematology/Oncology [address] [place] [address] Connie Mccain DO [address] [place] [address] OV/CLINICAL TRIAL/ON REVLIMID* Hematology/Oncology Comment on above: OV/CLINICAL TRIAL/ON REVLIMID* Start: 05-30-2024 End: 05-30-2024 ambulatory 05/30/2024 11:45 AM EDT Results Only [place] [facility] [address] [place] [address] TRIAL PATIENT - CBC/CMP(S)/MYELOMA LABS/ [facility] Comment on above: TRIAL PATIENT - CBC/CMP(S)/MYELOMA LABS/ Start: 05-29-2024 End: 05-29-2024 ambulatory [facility] Comment on above: TRIAL PATIENT - CBC/CMP(S)/MYELOMA LABS/ QMO ZOMETA/LABS & OV EARLY/AUTH EXP ?* Start: 05-29-2024 End: 05-29-2024 Patient encounter procedure Hematology/Oncology Comment on above: OV/CLINICAL TRIAL/ON REVLIMID* Start: 05-29-2024 End: 05-29-2024 ambulatory 05/29/2024 8:30 AM EDT Results Only [place] [facility] [address] [place] [address] TRIAL PATIENT - CBC/CMP(S)/MYELOMA LABS/ [place] [facility] Comment on above: TRIAL PATIENT - CBC/CMP(S)/MYELOMA LABS/ Start: 05-22-2024 End: 08-21-2024 Cobalamin (Vitamin B12) [Mass/volume] in Serum or Plasma VITAMIN B12 Lab Routine Memory loss Expected: 05/22/2024, Expires: 08/21/2024 [facility] Work Phone: Comment on above: Expected: 05/22/2024, Expires: Start: 05-22-2024 End: 08-21-2024 Folate [Mass/volume] in Serum or Plasma FOLATE, SERUM Lab Routine Memory loss Expected: 05/22/2024, Expires: 08/21/2024 [facility] Comment on above: Expected: 05/22/2024, Expires: Start: 05-22-2024 End: 08-21-2024 SYPHILIS TOTAL W/REFLEX SYPHILIS TOTAL W/REFLEX Lab Routine Memory loss Expected: 05/22/2024, Expires: 08/21/2024 [facility] Comment on above: Expected: 05/22/2024, Expires: Start: 05-22-2024 End: 08-21-2024 Thyrotropin [Units/volume] in Serum or Plasma THYROID STIMULATING HORMONE Lab Routine Memory loss Expected: 05/22/2024, Expires: 08/21/2024 [facility] Comment on above: Expected: 05/22/2024, Expires: Start: 05-22-2024 End: 05-22-2024 Patient encounter procedure 05/22/2024 8:30 AM EDT Office Visit Neurology [address] [place] [address] Betsy Kemp PA-C [address] [place] [address] Altered mental status, unspecified altered mental status type [R41.82] Neurology Comment on above: Altered mental status, unspecified alter ed mental status type [R41.82] Start: 05-13-2024 End: 05-13-2024 Nursing evaluation of patient and report 05/13/2024 11:30 AM EDT Nurse Visit [facility] [address] [facility] [place] [address] Main, Nurse Infd [address] [facility] [address] [place], [place] [id number] vaccine Infectious Disease Comment on above: vaccine Start: 05-09-2024 End: 05-09-2024 ambulatory 05/09/2024 10:00 AM EDT Results Only [place] [facility] [address] [place] [address] TRIAL PATIENT - CBC/CMP* [place] [facility] Comment on above: TRIAL PATIENT - CBC/CMP* Start: 05-08-2024 Covid-19 Vaccine ( season) Covid-19 Vaccine () [facility] Start: 05-02-2024 End: 05-02-2024 ambulatory 05/02/2024 9:30 AM EDT Infusion Center Hematology/Oncology [address] [place] [address] QMO ZOMETA/LABS & OV EARLY/AUTH EXP ?* Hematology/Oncology Comment on above: QMO ZOMETA/LABS & OV EARLY/AUTH EXP ?* Start: 05-02-2024 End: 05-02-2024 Patient encounter procedure 05/02/2024 8:30 AM EDT Visit (SP) Office Hematology/Oncology [address] [place] [address] Bright Thao APRN.[employer]KER [employer] [address] [place] [address] OV/CLINICAL TRIAL/ON REVLIMID* [facility] Comment on above: OV/CLINICAL TRIAL/ON REVLIMID* [facility] Start: 05-02-2024 End: 05-02-2024 ambulatory 05/02/2024 8:15 AM EDT Results Only [place] [facility] [address] [place] [address] TRIAL PATIENT - CBC/CMP(S)/MYELOMA LABS/ [facility] Comment on above: TRIAL PATIENT - CBC/CMP(S)/MYELOMA LABS/ Start: 04-18-2024 BP CONTROLLED (<130/80) BP CONTROLLED (<130/80) [facility] Start: 04-09-2024 End: 04-09-2024 Patient encounter procedure [facility] Comment on above: 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 Start: 04-04-2024 End: 04-04-2024 Patient encounter procedure 04/04/2024 9:10 AM EDT Visit (SP) Office Hematology/Oncology [address] [place] [address] Connie Mccain DO [address] [place] [address] OV/CLINICAL TRIAL/ON REVLIMID* Hematology/Oncology Comment on above: OV/CLINICAL TRIAL/ON REVLIMID* Start: 04-04-2024 End: 04-04-2024 ambulatory [facility] Comment on above: TRIAL PATIENT - CBC/CMP(S)/MYELOMA LABS/ QMO ZOMETA/LABS & OV EARLY/AUTH EXP ?* QMO ZOMETA/LABS & OV EARLY/MDCR* Start: 03-29-2024 End: 03-29-2024 Patient encounter procedure 03/29/2024 7:30 AM EDT Appointment [facility] [address] [place] [id number] Dx: Schwannoma of nerve of head [D36.11] [facility] Comment on above: Dx: Schwannoma of nerve of head [D36.11] Start: 03-22-2024 End: 03-22-2024 Patient encounter procedure 03/22/2024 9:00 AM EDT Appointment [facility] [place] [address] Altered mental status, unspecified altered mental status type [R41.82]; Multiple myeloma not having achieved remission (HCC) [C90.00] [facility] Comment on above: Altered mental status, unspecified alter ed mental status type [R41.82]; Multiple myeloma not having achieved remission (HCC) [C90.00] Start: 03-13-2024 End: 03-13-2024 Patient encounter procedure 03/13/2024 1:00 PM EDT Office Visit Infectious Disease [address] [place] [address] Darline Krishnan MD [address] [facility], [address] [address] Infection Follow Up and Vaccines (orders in AE) Infectious Disease Comment on above: Infection Follow Up and Vaccines (orders in AE) Start: 03-10-2024 Hepatitis B surface antibody level LDL CHOLESTEROL [facility] Start: 03-07-2024 End: 06-06-2024 CREATININE BLD CREATININE BLD Lab STAT Multiple myeloma not having achieved remission (HCC) Expected: 03/07/2024, Expires: 06/06/2024 [facility] Work Phone: Comment on above: Expected: 03/07/2024, Expires: Start: 03-07-2024 End: 03-07-2024 Patient encounter procedure 03/07/2024 8:50 AM EDT Visit (SP) Office Hematology/Oncology [address] [place], [place] [id number] Connie Mccain DO [address] [place], [place] [phone] OV/CLINICAL TRIAL/ON REVLIMID* Hematology/Oncology Comment on above: OV/CLINICAL TRIAL/ON REVLIMID* Start: 03-07-2024 End: 03-07-2024 ambulatory [place] [facility] Comment on above: TRIAL PATIENT - CBC/CMP(S)/MYELOMA LABS/ QMO ZOMETA/LABS & OV EARLY/AUTH EXP ?* Start: 02-23-2024 End: 02-23-2024 Follow-up encounter 02/23/2024 10:00 AM EDT OT/PT/Speech Visit [facility] [address] [place] [id number] Josey Miller, PT PT Follow up [facility] Comment on above: PT Follow up Start: 02-21-2024 End: 02-21-2024 Nursing evaluation of patient and report 02/21/2024 1:00 PM EDT Nurse Visit Infectious Disease [address] [place] [id number] Main, Nurse Infd [address] [place] [address] Vaccines Infectious Disease Comment on above: Vaccines Start: 02-20-2024 End: 02-20-2024 Follow-up encounter 02/20/2024 8:30 AM EDT OT/PT/Speech Visit [facility] [address] [place] [id number] Josey Miller, PT PT Follow up [facility] Comment on above: PT Follow up Start: 02-16-2024 End: 02-16-2024 Follow-up encounter 02/16/2024 10:00 AM EDT OT/PT/Speech Visit [facility] [address] [place] [id number] Josey Miller, PT PT Follow up [facility] Comment on above: PT Follow up Start: 02-15-2024 End: 02-15-2024 Patient encounter procedure 02/15/2024 10:00 AM EDT Results Only [place] [facility] [address] [place] [address] CBC/CMP - ON CLINICAL STUDY* [facility] Comment on above: CBC/CMP - ON CLINICAL STUDY* Start: 02-06-2024 Covid-19 Vaccine () Covid-19 Vaccine () [facility] Start: 02-02-2024 Patient discharge [facility] Start: 02-02-2024 Provision of activity privileges [facility] Start: 02-01-2024 Enteric precautions [facility] Start: 02-01-2024 [facility] Start: 02-01-2024 Following clinical pathway protocol [facility] Start: 02-01-2024 Assessment of risk of venous thromboembolism [facility] Start: 02-01-2024 Care regimes management [facility] Start: 02-01-2024 Incentive spirometry [facility] Start: 02-01-2024 Insertion of catheter into peripheral vein [facility] Start: 02-01-2024 Measuring intake and output [facility] Start: 02-01-2024 Notification of physician [facility] Start: 02-01-2024 Providing care according to standard [facility] Start: 02-01-2024 Provision of activity privileges [facility] Start: 02-01-2024 Referral to service [facility] Start: 02-01-2024 Respiratory secretion precautions [facility] Start: 02-01-2024 Vitamin B12 measurement [facility] Start: 02-01-2024 Patient referral to dietitian [facility] Start: 01-31-2024 Verification routine [facility] Start: 01-31-2024 Admission procedure [facility] Start: 01-31-2024 End: 01-31-2024 Blood culture [facility] Start: 01-31-2024 End: 02-01-2024 [facility] Start: 01-31-2024 Bacteria identified in Blood by Culture Blood Culture [facility] Start: 01-31-2024 Bacteria identified in Urine by Culture [facility] Start: 01-27-2024 [facility] Start: 12-19-2023 Covid-19 Vaccine ( season) Covid-19 Vaccine () [facility] Start: 12-14-2023 End: 03-14-2024 [id number] [Mass/volume] in Serum or Plasma B2 MICROGLOBULIN B Lab Routine Examination of participant in clinical trial Multiple myeloma not having achieved remission (HCC) Expected: 12/14/2023 (Approximate), Expires: 03/14/2024 [facility] Work Phone: Comment on above: Expected: 12/14/2023 (Approximate), Expi res: 03/14/2024 Start: 12-14-2023 End: 03-14-2024 CBC W Auto Differential panel - Blood CBC + DIFF Lab Routine Examination of participant in clinical trial Multiple myeloma not having achieved remission (HCC) Expected: 12/14/2023 (Approximate), Expires: 03/14/2024 [facility] Work Phone: Comment on above: Expected: 12/14/2023 (Approximate), Expi res: 03/14/2024 Start: 12-14-2023 End: 03-14-2024 Comprehensive metabolic 2000 panel - Serum or Plasma [facility] Work Phone: Comment on above: Expected: 12/14/2023 (Approximate), Expi res: 03/14/2024 Expected: 12/14/2023 , Expires: 03/14/2024 Start: 12-14-2023 End: 03-14-2024 IMMUNOGLOBULINS IRMA IMMUNOGLOBULINS IRMA Lab Routine Examination of participant in clinical trial Multiple myeloma not having achieved remission (HCC) Expected: 12/14/2023 (Approximate), Expires: 03/14/2024 [facility] Work Phone: Comment on above: Expected: 12/14/2023 (Approximate), Expi res: 03/14/2024 Start: 12-14-2023 End: 03-14-2024 KAPPA/SUAZO,FREE,SER KAPPA/SUAZO,FREE,SER Lab Routine Examination of participant in clinical trial Multiple myeloma not having achieved remission (HCC) Expected: 12/14/2023 (Approximate), Expires: 03/14/2024 [facility] Work Phone: Comment on above: Expected: 12/14/2023 (Approximate), Expi res: 03/14/2024 Start: 12-14-2023 End: 03-14-2024 Lactate dehydrogenase [Enzymatic activity/volume] in Serum or Plasma LD LACTATE DEHYDRO Lab Routine Examination of participant in clinical trial Multiple myeloma not having achieved remission (HCC) Expected: 12/14/2023 (Approximate), Expires: 03/14/2024 [facility] Work Phone: Comment on above: Expected: 12/14/2023 (Approximate), Expi res: 03/14/2024 Start: 12-14-2023 End: 03-14-2024 MONOCLONAL PROTEIN, SERUM (BLOOD) MONOCLONAL PROTEIN, SERUM (BLOOD) Lab Routine Examination of participant in clinical trial Multiple myeloma not having achieved remission (HCC) Expected: 12/14/2023 (Approximate), Expires: 03/14/2024 [facility] Work Phone: Comment on above: Expected: 12/14/2023 (Approximate), Expi res: 03/14/2024 Start: 12-14-2023 End: 03-14-2024 PROTEIN ELECTROPHORESIS SERUM W/INTERP PROTEIN ELECTROPHORESIS SERUM W/INTERP Lab Routine Examination of participant in clinical trial Multiple myeloma not having achieved remission (HCC) Expected: 12/14/2023 (Approximate), Expires: 03/14/2024 [facility] Work Phone: Comment on above: Expected: 12/14/2023 (Approximate), Expi res: 03/14/2024 Start: 11-27-2023 End: 11-27-2023 [facility] Start: 10-23-2023 Advance Directive Discussion Advance Directive Discussion [facility] Start: 10-23-2023 Behavioral Health Screening Behavioral Health Screening [facility] Start: 10-23-2023 Depression Assessment Depression Assessment [facility] Start: 09-21-2023 End: 12-21-2023 [id number]-[id number] [Mass/volume] in Serum or Plasma B2 MICROGLOBULIN B Lab Routine Examination of participant in clinical trial Multiple myeloma not having achieved remission (HCC) Expected: 09/21/2023, Expires: 12/21/2023 [facility] Work Phone: Comment on above: Expected: 09/21/2023, Expires: Start: 09-21-2023 End: 12-21-2023 CBC W Auto Differential panel - Blood CBC + DIFF Lab Routine Examination of participant in clinical trial Multiple myeloma not having achieved remission (HCC) Expected: 09/21/2023, Expires: 12/21/2023 [facility] Work Phone: Comment on above: Expected: 09/21/2023, Expires: 4 Start: 09-21-2023 End: 12-21-2023 Comprehensive metabolic 2000 panel - Serum or Plasma COMP METABOLIC PANEL Lab Routine Examination of participant in clinical trial Multiple myeloma not having achieved remission (HCC) Expected: 09/21/2023, Expires: 12/21/2023 [facility] Work Phone: Comment on above: Expected: 09/21/2023, Expires: 4 Start: 09-21-2023 End: 12-21-2023 IMMUNOGLOBULINS IRMA IMMUNOGLOBULINS IRMA Lab Routine Examination of participant in clinical trial Multiple myeloma not having achieved remission (HCC) Expected: 09/21/2023, Expires: 12/21/2023 [facility] Work Phone: Comment on above: Expected: 09/21/2023, Expires: 4 Start: 09-21-2023 End: 12-21-2023 KAPPA/SUAZO,FREE,SER KAPPA/SUAZO,FREE,SER Lab Routine Examination of participant in clinical trial Multiple myeloma not having achieved remission (HCC) Expected: 09/21/2023, Expires: 12/21/2023 [facility] Work Phone: Comment on above: Expected: 09/21/2023, Expires: 4 Start: 09-21-2023 End: 12-21-2023 Lactate dehydrogenase [Enzymatic activity/volume] in Serum or Plasma LD LACTATE DEHYDRO Lab Routine Examination of participant in clinical trial Multiple myeloma not having achieved remission (HCC) Expected: 09/21/2023, Expires: 12/21/2023 [facility] Work Phone: Comment on above: Expected: 09/21/2023, Expires: 4 Start: 09-21-2023 End: 12-21-2023 MONOCLONAL PROTEIN, SERUM (BLOOD) MONOCLONAL PROTEIN, SERUM (BLOOD) Lab Routine Examination of participant in clinical trial Multiple myeloma not having achieved remission (HCC) Expected: 09/21/2023, Expires: 12/21/2023 [facility] Work Phone: Comment on above: Expected: 09/21/2023, Expires: Start: 09-21-2023 End: 12-21-2023 PROTEIN ELECTROPHORESIS SERUM W/INTERP PROTEIN ELECTROPHORESIS SERUM W/INTERP Lab Routine Examination of participant in clinical trial Multiple myeloma not having achieved remission (HCC) Expected: 09/21/2023, Expires: 12/21/2023 [facility] Work Phone: Comment on above: Expected: 09/21/2023, Expires: Start: 09-10-2023 Hemoglobin A1c measurement HbA1C [facility] Start: 09-10-2023 Hemoglobin A1c/Hemoglobin.total in Blood HBA1C [facility] Start: 08-24-2023 End: 11-23-2023 [id number] [Mass/volume] in Serum or Plasma B2 MICROGLOBULIN B Lab Routine Multiple myeloma not having achieved remission (HCC) Examination of participant in clinical trial Expected: 08/24/2023 (Approximate), Expires: 11/23/2023 [facility] Work Phone: Comment on above: Expected: 08/24/2023 (Approximate), Expi res: 11/23/2023 Start: 08-24-2023 End: 11-23-2023 CBC W Auto Differential panel - Blood CBC + DIFF Lab Routine Multiple myeloma not having achieved remission (HCC) Examination of participant in clinical trial Expected: 08/24/2023 (Approximate), Expires: 11/23/2023 [facility] Work Phone: Comment on above: Expected: 08/24/2023 (Approximate), Expi res: 11/23/2023 Start: 08-24-2023 End: 11-23-2023 Comprehensive metabolic 2000 panel - Serum or Plasma COMP METABOLIC PANEL Lab Routine Multiple myeloma not having achieved remission (HCC) Examination of participant in clinical trial Expected: 08/24/2023 (Approximate), Expires: 11/23/2023 [facility] Work Phone: Comment on above: Expected: 08/24/2023 (Approximate), Expi res: 11/23/2023 Start: 08-24-2023 End: 11-23-2023 IMMUNOGLOBULINS IRMA IMMUNOGLOBULINS IRMA Lab Routine Multiple myeloma not having achieved remission (HCC) Examination of participant in clinical trial Expected: 08/24/2023 (Approximate), Expires: 11/23/2023 [facility] Work Phone: Comment on above: Expected: 08/24/2023 (Approximate), Expi res: 11/23/2023 Start: 08-24-2023 End: 11-23-2023 KAPPA/SUAZO,FREE,SER KAPPA/SUAZO,FREE,SER Lab Routine Multiple myeloma not having achieved remission (HCC) Examination of participant in clinical trial Expected: 08/24/2023 (Approximate), Expires: 11/23/2023 [facility] Work Phone: Comment on above: Expected: 08/24/2023 (Approximate), Expi res: 11/23/2023 Start: 08-24-2023 End: 11-23-2023 Lactate dehydrogenase [Enzymatic activity/volume] in Serum or Plasma LD LACTATE DEHYDRO Lab Routine Multiple myeloma not having achieved remission (HCC) Expected: 08/24/2023, Expires: 11/23/2023 [facility] Work Phone: Comment on above: Expected: 08/24/2023, Expires: 4 Start: 08-24-2023 End: 11-23-2023 MONOCLONAL PROT UR W/INTERP MONOCLONAL PROT UR W/INTERP Lab Routine Multiple myeloma not having achieved remission (HCC) Expected: 08/24/2023, Expires: 11/23/2023 [facility] Work Phone: Comment on above: Expected: 08/24/2023, Expires: 4 Start: 08-24-2023 End: 11-23-2023 MONOCLONAL PROTEIN, SERUM (BLOOD) MONOCLONAL PROTEIN, SERUM (BLOOD) Lab Routine Multiple myeloma not having achieved remission (HCC) Examination of participant in clinical trial Expected: 08/24/2023 (Approximate), Expires: 11/23/2023 [facility] Work Phone: Comment on above: Expected: 08/24/2023 (Approximate), Expi res: 11/23/2023 Start: 08-24-2023 End: 11-23-2023 PROTEIN ELECT RND UR W/INTERP PROTEIN ELECT RND UR W/INTERP Lab Routine Multiple myeloma not having achieved remission (HCC) Expected: 08/24/2023, Expires: 11/23/2023 [facility] Work Phone: Comment on above: Expected: 08/24/2023, Expires: Start: 08-24-2023 End: 11-23-2023 PROTEIN ELECTROPHORESIS SERUM W/INTERP PROTEIN ELECTROPHORESIS SERUM W/INTERP Lab Routine Multiple myeloma not having achieved remission (HCC) Examination of participant in clinical trial Expected: 08/24/2023 (Approximate), Expires: 11/23/2023 [facility] Work Phone: Comment on above: Expected: 08/24/2023 (Approximate), Expi res: 11/23/2023 Start: 07-24-2023 End: 09-23-2023 [id number] [Mass/volume] in Serum or Plasma B2 MICROGLOBULIN B Lab Routine Multiple myeloma not having achieved remission (HCC) Examination of participant in clinical trial Expected: 07/24/2023 (Approximate), Expires: 09/23/2023 [facility] Work Phone: Comment on above: Expected: 07/24/2023 (Approximate), Expi res: 09/23/2023 Start: 07-24-2023 End: 09-23-2023 BONE MARROW ANALYSIS [facility] Work Phone: Comment on above: Expected: 07/24/2023 (Approximate), Expi res: 09/23/2023 Start: 07-24-2023 End: 09-23-2023 BONE MARROW CHROMOSOME ANAL [facility] Work Phone: Comment on above: Expected: 07/24/2023 (Approximate), Expi res: 09/23/2023 Start: 07-24-2023 End: 09-23-2023 CBC W Auto Differential panel - Blood CBC + DIFF Lab Routine Multiple myeloma not having achieved remission (HCC) Examination of participant in clinical trial Expected: 07/24/2023 (Approximate), Expires: 09/23/2023 [facility] Work Phone: Comment on above: Expected: 07/24/2023 (Approximate), Expi res: 09/23/2023 Start: 07-24-2023 End: 09-23-2023 CLINICAL TRIAL DRAW CLINICAL TRIAL DRAW Lab Routine Multiple myeloma not having achieved remission (HCC) Examination of participant in clinical trial Expected: 07/24/2023 (Approximate), Expires: 09/23/2023 [facility] Work Phone: Comment on above: Expected: 07/24/2023 (Approximate), Expi res: 09/23/2023 Start: 07-24-2023 End: 09-23-2023 Comprehensive metabolic 2000 panel - Serum or Plasma COMP METABOLIC PANEL Lab Routine Multiple myeloma not having achieved remission (HCC) Examination of participant in clinical trial Expected: 07/24/2023 (Approximate), Expires: 09/23/2023 [facility] Work Phone: Comment on above: Expected: 07/24/2023 (Approximate), Expi res: 09/23/2023 Start: 07-24-2023 End: 09-23-2023 DNA EXTRACTION BONE MARROW (BUFFY COAT) [facility] Work Phone: Comment on above: Expected: 07/24/2023 (Approximate), Expi res: 09/23/2023 Start: 07-24-2023 End: 09-23-2023 FISH FOR PLASMA CELL MYELOMA [facility] Work Phone: Comment on above: Expected: 07/24/2023 (Approximate), Expi res: 09/23/2023 Start: 07-24-2023 End: 09-23-2023 FLOW CYTOMETRY FOR LEUKEMIA/LYMPHOMA (FCLL) PERFORMABLE [facility] Work Phone: Comment on above: Expected: 07/24/2023 (Approximate), Expi res: 09/23/2023 Start: 07-24-2023 End: 09-23-2023 IgA [Mass/volume] in Serum or Plasma IGA BLD Lab Routine Multiple myeloma not having achieved remission (HCC) Examination of participant in clinical trial Expected: 07/24/2023 (Approximate), Expires: 09/23/2023 [facility] Work Phone: Comment on above: Expected: 07/24/2023 (Approximate), Expi res: 09/23/2023 Start: 07-24-2023 End: 09-23-2023 IgE [Units/volume] in Serum or Plasma IGE BLD Lab Routine Multiple myeloma not having achieved remission (HCC) Examination of participant in clinical trial Expected: 07/24/2023 (Approximate), Expires: 09/23/2023 [facility] Work Phone: Comment on above: Expected: 07/24/2023 (Approximate), Expi res: 09/23/2023 Start: 07-24-2023 End: 09-23-2023 IgG [Mass/volume] in Serum or Plasma IGG Lab Routine Multiple myeloma not having achieved remission (HCC) Examination of participant in clinical trial Expected: 07/24/2023 (Approximate), Expires: 09/23/2023 [facility] Work Phone: Comment on above: Expected: 07/24/2023 (Approximate), Expi res: 09/23/2023 Start: 07-24-2023 End: 09-23-2023 IgM [Mass/volume] in Serum or Plasma IGM Lab Routine Multiple myeloma not having achieved remission (HCC) Examination of participant in clinical trial Expected: 07/24/2023 (Approximate), Expires: 09/23/2023 [facility] Work Phone: Comment on above: Expected: 07/24/2023 (Approximate), Expi res: 09/23/2023 Start: 07-24-2023 End: 09-23-2023 KAPPA/SUAZO,FREE,SER KAPPA/SUAZO,FREE,SER Lab Routine Multiple myeloma not having achieved remission (HCC) Examination of participant in clinical trial Expected: 07/24/2023 (Approximate), Expires: 09/23/2023 [facility] Work Phone: Comment on above: Expected: 07/24/2023 (Approximate), Expi res: 09/23/2023 Start: 07-24-2023 End: 09-23-2023 MONOCLONAL PROTEIN, SERUM (BLOOD) MONOCLONAL PROTEIN, SERUM (BLOOD) Lab Routine Multiple myeloma not having achieved remission (HCC) Examination of participant in clinical trial Expected: 07/24/2023 (Approximate), Expires: 09/23/2023 [facility] Work Phone: Comment on above: Expected: 07/24/2023 (Approximate), Expi res: 09/23/2023 Start: 07-24-2023 End: 09-23-2023 PROTEIN ELECTROPHORESIS SERUM W/INTERP PROTEIN ELECTROPHORESIS SERUM W/INTERP Lab Routine Multiple myeloma not having achieved remission (HCC) Examination of participant in clinical trial Expected: 07/24/2023 (Approximate), Expires: 09/23/2023 [facility] Work Phone: Comment on above: Expected: 07/24/2023 (Approximate), Expi res: 09/23/2023 Start: 06-23-2023 Covid-19 Vaccine ( season) Covid-19 Vaccine ( season) [facility] Start: 06-23-2023 Influenza vaccination [facility] Start: 06-21-2023 End: 08-21-2023 TYPE + SCREEN TYPE + SCREEN Blood Bank STAT Personal history of diseases of blood and blood-forming organs Multiple myeloma not having achieved remission (HCC) Expected: 06/21/2023, Expires: 08/21/2023 [facility] Work Phone: Comment on above: Expected: 06/21/2023, Expires: Start: 06-19-2023 End: 08-19-2023 TYPE + SCREEN [facility] Work Phone: Comment on above: Expected: 06/19/2023, Expires: 3 Start: 01-20-2023 Blood chemistry [facility] Start: 01-19-2023 Blood chemistry [facility] Start: 01-18-2023 Blood chemistry [facility] Start: 01-17-2023 Patient discharge [facility] Start: 01-17-2023 Chemotherapy care management [facility] Start: 01-16-2023 Following clinical pathway protocol [facility] Start: 01-16-2023 Assessment of risk of venous thromboembolism [facility] Start: 01-16-2023 Care regimes management [facility] Start: 01-16-2023 Elevation of affected extremity [facility] Start: 01-16-2023 Incentive spirometry [facility] Start: 01-16-2023 Insertion of catheter into peripheral vein [facility] Start: 01-16-2023 Measuring intake and output [facility] Start: 01-16-2023 Oxygen therapy [facility] Start: 01-16-2023 Providing care according to standard [facility] Start: 01-16-2023 Provision of activity privileges [facility] Start: 01-16-2023 Self-administration of medication [facility] Start: 01-16-2023 Procedure [facility] Start: 01-16-2023 Antithrombin III assay, functional [facility] Start: 01-16-2023 Factor V Leiden genotype [facility] Start: 01-16-2023 End: 01-16-2023 [facility] Start: 01-16-2023 Admission procedure [facility] Start: 01-16-2023 Verification routine [facility] Start: 01-16-2023 [facility] Start: 01-16-2023 [facility] Start: 01-03-2023 End: 03-05-2023 Chronic hepatitis differentiation between hepatitis B and C virus panel - Serum or Plasma HEP REMOTE PANEL BL Lab Routine Multiple myeloma not having achieved remission (HCC) Expected: 01/03/2023, Expires: 03/05/2023 [facility] Work Phone: Comment on above: Expected: 01/03/2023, Expires: Start: 12-27-2022 COVID-19 VACCINE (8 - Moderna risk series) COVID-19 VACCINE (8 - Moderna risk series) [facility] Start: 12-16-2022 Chemotherapy care management [facility] Start: 11-09-2022 End: 01-09-2023 CBC W Auto Differential panel - Blood CBC + DIFF Lab STAT Multiple myeloma not having achieved remission (HCC) Expected: 11/09/2022, Expires: 01/09/2023 [facility] Work Phone: Comment on above: Expected: 11/09/2022, Expires: 3 Start: 11-09-2022 End: 01-09-2023 Comprehensive metabolic 2000 panel - Serum or Plasma COMP METABOLIC PANEL Lab STAT Multiple myeloma not having achieved remission (HCC) Expected: 11/09/2022, Expires: 01/09/2023 [facility] Work Phone: Comment on above: Expected: 11/09/2022, Expires: 3 Start: 10-23-2022 ADVANCE DIRECTIVE DISCUSSION ADVANCE DIRECTIVE DISCUSSION [facility] Start: 10-23-2022 DEPRESSION ASSESSMENT DEPRESSION ASSESSMENT [facility] Start: 09-21-2022 Colonoscopy w/biopsy single/multiple COLONOSCOPY AND BIOPSY [facility] Start: 09-21-2022 Colsc flx w/rmvl of tumor polyp lesion snare tq COLONOSCOPY W/LESION REMOVAL [facility] Start: 09-21-2022 Enteric precautions [facility] Start: 09-21-2022 Patient discharge [facility] Start: 08-08-2022 End: 10-08-2022 aPTT in Platelet poor plasma by Coagulation assay [facility] Work Phone: Comment on above: Expected: 08/08/2022, Expires: 2 Start: 08-08-2022 End: 10-08-2022 [id number] [Mass/volume] in Serum or Plasma [facility] Work Phone: Comment on above: Expected: 08/08/2022, Expires: 2 Start: 08-08-2022 End: 10-08-2022 MONOCLONAL PROTEIN, SERUM (BLOOD) [facility] Work Phone: Comment on above: Expected: 08/08/2022, Expires: 2 Start: 08-08-2022 End: 10-08-2022 Natriuretic peptide.B prohormone N-Terminal [Mass/volume] in Serum or Plasma [facility] Work Phone: Comment on above: Expected: 08/08/2022, Expires: 2 Start: 08-08-2022 End: 10-08-2022 PROTEIN ELECTROPHORESIS SERUM W/INTERP [facility] Work Phone: Comment on above: Expected: 08/08/2022, Expires: 2 Start: 08-08-2022 End: 10-08-2022 PT panel - Platelet poor plasma by Coagulation assay [facility] Work Phone: Comment on above: Expected: 08/08/2022, Expires: 2 Start: 08-08-2022 End: 10-08-2022 SERUM VISCOSITY [facility] Work Phone: Comment on above: Expected: 08/08/2022, Expires: 2 Start: 08-08-2022 End: 10-08-2022 TROPONIN T [facility] Work Phone: Comment on above: Expected: 08/08/2022, Expires: 2 Start: 06-23-2022 Influenza vaccination INFLUENZA (#1) [facility] Start: 06-02-2022 Colonoscopy COLONOSCOPY [facility] Start: 06-02-2022 COLORECTAL CANCER SCREENING COLORECTAL CANCER SCREENING [facility] Start: 06-02-2022 Screening for malignant neoplasm of colon [facility] Start: 04-21-2022 Serum immunofixation [facility] Work Phone: Start: 04-21-2022 [facility] Work Phone: Start: 04-21-2022 Elastase, pancreatic (el-1), fecal; quantitative [facility] Work Phone: Start: 04-21-2022 Protein measurement [facility] Work Phone: Start: 04-21-2022 Patient discharge [facility] Work Phone: Start: 04-21-2022 T4 free measurement [facility] Work Phone: Start: 04-20-2022 Admission procedure [facility] Work Phone: Start: 04-19-2022 End: 04-19-2022 Blood culture [facility] Work Phone: Start: 04-19-2022 Application of intermittent pneumatic compression device [facility] Work Phone: Start: 04-19-2022 Care regimes management [facility] Work Phone: Start: 04-19-2022 [facility] Work Phone: Start: 04-19-2022 Following clinical pathway protocol [facility] Work Phone: Start: 04-19-2022 Ambulation without limitation [facility] Work Phone: Start: 04-19-2022 Assessment of risk of venous thromboembolism [facility] Work Phone: Start: 04-19-2022 Cardiac monitoring [facility] Work Phone: Start: 04-19-2022 Catheterization of vein [facility] Work Phone: Start: 04-19-2022 Continuous pulse oximetry [facility] Work Phone: Start: 04-19-2022 Elevation of head of bed [facility] Work Phone: Start: 04-19-2022 Exercises [facility] Work Phone: Start: 04-19-2022 Implementation of planned interventions [facility] Work Phone: Start: 04-19-2022 Incentive spirometry [facility] Work Phone: Start: 04-19-2022 Insertion of catheter into peripheral vein [facility] Work Phone: Start: 04-19-2022 Measuring intake and output [facility] Work Phone: Start: 04-19-2022 End: 04-19-2022 Notification of physician [facility] Work Phone: Start: 04-19-2022 Oxygen therapy [facility] Work Phone: Start: 04-19-2022 Providing care according to standard [facility] Work Phone: Start: 04-19-2022 Referral to occupational therapist [facility] Work Phone: Start: 04-19-2022 Referral to service [facility] Work Phone: Start: 04-19-2022 Speech therapy assessment [facility] Work Phone: Start: 04-19-2022 Tobacco use cessation education [facility] Work Phone: Start: 04-19-2022 Magnetic resonance angiography of neck without contrast MRA Neck without Contrast [facility] Work Phone: Start: 04-19-2022 End: 04-19-2022 [facility] Work Phone: Start: 04-19-2022 Verification routine [facility] Work Phone: Start: 04-19-2022 Admission procedure [facility] Work Phone: Start: 04-19-2022 Oxygen therapy [facility] Work Phone: Start: 04-19-2022 [facility] Work Phone: Start: 04-17-2022 Emergency department visit high/urgent severity EMERGENCY DEPT VISIT [facility] Work Phone: Start: 04-17-2022 Iv infusion hydration initial 31 min-1 hour HYDRATION IV INFUSION INIT [facility] Work Phone: Start: 10-23-2021 ADVANCE DIRECTIVE DISCUSSION ADVANCE DIRECTIVE DISCUSSION [facility] Start: 10-23-2021 DEPRESSION ASSESSMENT DEPRESSION ASSESSMENT [facility] Start: 2017 PNEUMOCOCCAL: 65+ (1 - PCV) PNEUMOCOCCAL: 65+ (1 - PCV) [facility] Start: 07-01-2017 Medicare Annual Wellness Visit Medicare Annual Wellness Visit [facility] Start: 2012 Hepatitis B Vaccine (1 of 3 - Risk 3-dose series) Hepatitis B Vaccine (1 of 3 - Risk 3-dose series) [facility] Start: 2012 RSV Vaccine (1 - 1-dose 60+ series) RSV Vaccine (1 - 1-dose 60+ series) [facility] Start: 2012 RSV Vaccine (1 - Risk 60-74 years 1-dose series) RSV Vaccine (1 - Risk 60-74 years 1-dose series) [facility] Start: 2002 SHINGRIX VACCINE (1 of 2) SHINGRIX VACCINE (1 of 2) [facility] Start: 1997 COLOGUARD (FIT-DNA) COLOGUARD (FIT-DNA) [facility] Start: 1997 Colonoscopy COLONOSCOPY [facility] Start: 1997 COLORECTAL CANCER SCREENING COLORECTAL CANCER SCREENING [facility] Start: [address] COLONOGRAPHY [facility] Start: 1997 FECAL OCCULT BLOOD FECAL OCCULT BLOOD [facility] Start: 1997 Screening for malignant neoplasm of colon [facility] Start: 1997 SIGMOIDOSCOPY SIGMOIDOSCOPY [facility] Start: 1987 LIPID SCREEN LIPID SCREEN [facility] Start: 1971 SHINGRIX VACCINE (1 of 2) SHINGRIX VACCINE (1 of 2) [facility] Start: 1971 Urine microalbumin profile DTAP,TDAP,TD (1 - Tdap) [facility] Start: 1970 ANNUAL PCP TEAM CHRONIC DISEASE VISIT ANNUAL PCP TEAM CHRONIC DISEASE VISIT [facility] Start: 1970 Anxiety Screening Anxiety Screening [facility] Start: 1970 BP CONTROLLED (<130/80) BP CONTROLLED (<130/80) [facility] Start: 1970 Depression Screening Depression Screening [facility] Start: 1970 HEPATITIS C SCREENING HEPATITIS C SCREENING [facility] Start: 1962 3 comp foot exam completed DIABETIC FOOT EXAM [facility] Start: 1962 Diabetic foot examination Diabetic Foot Exam [facility] Start: 1962 Glaucoma screening Dilated Retinal Exam [facility] Start: 1962 Hepatitis B screening URINE ALBUMIN:CREATININE RATIO [facility] Start: 1962 Hepatitis C antibody, confirmatory test DILATED RETINAL EXAM [facility] Start: 1958 PNEUMOCOCCAL: 65+ (1 - PCV) PNEUMOCOCCAL: 65+ (1 - PCV) [facility] Alanine aminotransfe rase [Enzymatic activity/volume] in Serum or Plasma [facility] Albumin [Mass/volume ] in Serum or Plasma [facility] Albumin [Moles/volum e] in Serum or Plasma [facility] Work Phone: Albumin/Globulin ratio [facility] Work Phone: Alkaline phosphatase [Enzymatic activity/volume] in Serum or Plasma [facility] ALZHEIMERS DISEASE BIOMARKERS, CSF ALZHEIMERS DISEASE BIOMARKERS, CSF Lab Routine Mild cognitive impairment Ordered: 12/23/2024 [facility] Comment on above: Ordered: 12/23/2024 Amphetamine [Mass/volume] in Urine [facility] Anion gap measurement [facility] Anion gap measurement [facility] Anion gap measurement [facility] Anion gap measurement [facility] Antibody to lupus [place] protein measurement [facility] Work Phone: Antibody to SS-A measurement [facility] Work Phone: Antithrombin III assay [facility] Aspartate aminotransferase [Enzymatic activity/volume] in Serum or Plasma [facility] AUTO HPC(A) FRZ/STORE AUTO HPC(A ) FRZ/STORE Lab Routine Multiple myeloma not having achieved remission (HCC) 05/17/2023 8:03 AM EDT [facility] Work Phone: AUTO HPC(A) FRZ/STORE AUTO HPC(A ) FRZ/STORE Lab Routine Multiple myeloma not having achieved remission (HCC) 05/17/2023 8:03 AM EDT [facility] Work Phone: Bacteria identified in Blood by Culture Blood Culture [facility] Work Phone: End: 05-17-2024 Basic metabolic 2000 panel - Serum or Plasma BASIC METABOLIC PNL Lab Routine Multiple myeloma not having achieved remission (HCC) Once per week for 3 Occurrences starting 05/18/2023 until 05/17/2024 [facility] Work Phone: Comment on above: Once per week for 3 Occurrences starting 05/18/2023 until 05/17/2024 Benzodiazepine measurement, urine [facility] Beta 2 glycoprotein 1 IgA Ab [Presence] in Serum [facility] Beta 2 glycoprotein 1 IgG Ab [Presence] in Serum [facility] Beta 2 glycoprotein 1 IgM Ab [Presence] in Serum [facility] End: 11-15-2023 [id number] [Mass/volume] in Serum or Plasma B2 MICROGLOBULIN B Lab Routine Multiple myeloma not having achieved remission (HCC) Vitamin D deficiency Once per month for 12 Occurrences starting 11/15/2022 until 11/15/2023 [facility] Work Phone: Comment on above: Once per month for 12 Occurrences starti ng 11/15/2022 until 11/15/2023 End: 01-09-2025 [id number] [Mass/volume] in Serum or Plasma B2 MICROGLOBULIN B Lab Routine Multiple myeloma not having achieved remission (HCC) Once per month for 12 Occurrences starting 01/10/2024 until 01/09/2025 [facility] Work Phone: Comment on above: Once per month for 12 Occurrences starti ng 01/10/2024 until 01/09/2025 Bilirubin measuremen t, urine [facility] Work Phone: Bilirubin, total measurement [facility] Blood culture [facility] Work Phone: BONE MARROW ANALYSIS BONE MARROW ANALYSIS Lab Routine Multiple myeloma not having achieved remission (HCC) Pre-transplant evaluation for stem cell transplant 04/19/2023 11:15 AM T [facility] Work Phone: BONE MARROW CHROMOSO ME ANAL BONE MARROW CHROMOSOME ANAL Lab Routine Multiple myeloma not having achieved remission (HCC) Pre-transplant evaluation for stem cell transplant 04/19/2023 11:22 AM T [facility] Work Phone: BUN/Creatinine ratio [facility] BUN/Creatinine ratio [facility] BUN/Creatinine ratio [facility] BUN/Creatinine ratio [facility] Calcium [Mass/volume ] in Serum or Plasma [facility] Calcium [Mass/volume ] in Serum or Plasma [facility] Calcium [Mass/volume ] in Serum or Plasma [facility] Calcium [Mass/volume ] in Serum or Plasma [facility] Carbon dioxide, tota l [Moles/volume] in Serum or Plasma [facility] Carbon dioxide, tota l [Moles/volume] in Serum or Plasma [facility] Carbon dioxide, tota l [Moles/volume] in Serum or Plasma [facility] Carbon dioxide, tota l [Moles/volume] in Serum or Plasma [facility] Cardiolipin IgG Ab [Units/volume] in Serum or Plasma [facility] Cardiolipin IgM Ab [Units/volume] in Serum or Plasma [facility] End: 11-15-2023 CBC W Auto Differential panel - Blood CBC + DIFF Lab STAT Multiple myeloma not having achieved remission (HCC) Vitamin D deficiency Once per week for 52 Occurrences starting 11/15/2022 until 11/15/2023 [facility] Work Phone: Comment on above: Once per week for 52 Occurrences startin g 11/15/2022 until 11/15/2023 CBC W Auto Different ial panel - Blood CBC + DIFF Lab Routine Multiple myeloma not having achieved remission (HCC) Pre-transplant evaluation for stem cell transplant Ordered: 04/19/2023 [facility] Work Phone: Comment on above: Ordered: 04/19/2023 End: 06-20-2024 CBC W Auto Differential panel - Blood CBC + DIFF Lab Routine Multiple myeloma not having achieved remission (HCC) Once per week for 3 Occurrences starting 06/21/2023 until 06/20/2024 [facility] Work Phone: Comment on above: Once per week for 3 Occurrences starting 06/21/2023 until 06/20/2024 End: 07-31-2024 CBC W Auto Differential panel - Blood CBC + DIFF Lab Routine Multiple myeloma not having achieved remission (HCC) Once per week for 26 Occurrences starting 08/01/2023 until 07/31/2024 [facility] Work Phone: Comment on above: Once per week for 26 Occurrences startin g 08/01/2023 until 07/31/2024 End: 01-09-2025 CBC W Auto Differential panel - Blood CBC + DIFF Lab STAT Multiple myeloma not having achieved remission (HCC) Once per month for 12 Occurrences starting 01/10/2024 until 01/09/2025 [facility] Work Phone: Comment on above: Once per month for 12 Occurrences starti ng 01/10/2024 until 01/09/2025 [employer] protein B Ab [Units/volume] in Serum [facility] Work Phone: Chloride [Moles/volu me] in Serum or Plasma [facility] Chloride [Moles/volu me] in Serum or Plasma [facility] Chloride [Moles/volu me] in Serum or Plasma [facility] Chloride [Moles/volu me] in Serum or Plasma [facility] Chromatin Ab [Units/volume] in Serum or Plasma [facility] Work Phone: Cocaine measurement, urine [facility] End: 11-15-2023 Comprehensive metabolic 2000 panel - Serum or Plasma COMP METABOLIC PANEL Lab STAT Multiple myeloma not having achieved remission (HCC) Vitamin D deficiency Once per week for 52 Occurrences starting 11/15/2022 until 11/15/2023 [facility] Work Phone: Comment on above: Once per week for 52 Occurrences startin g 11/15/2022 until 11/15/2023 End: 06-20-2024 Comprehensive metabolic 2000 panel - Serum or Plasma COMP METABOLIC PANEL Lab Routine Multiple myeloma not having achieved remission (HCC) Once per week for 3 Occurrences starting 06/21/2023 until 06/20/2024 [facility] Work Phone: Comment on above: Once per week for 3 Occurrences starting 06/21/2023 until 06/20/2024 End: 07-31-2024 Comprehensive metabolic 2000 panel - Serum or Plasma COMP METABOLIC PANEL Lab Routine Multiple myeloma not having achieved remission (HCC) Once per week for 26 Occurrences starting 08/01/2023 until 07/31/2024 [facility] Work Phone: Comment on above: Once per week for 26 Occurrences startin g 08/01/2023 until 07/31/2024 End: 01-09-2025 Comprehensive metabolic 2000 panel - Serum or Plasma COMP METABOLIC PANEL Lab STAT Multiple myeloma not having achieved remission (HCC) Once per month for 12 Occurrences starting 01/10/2024 until 01/09/2025 [facility] Work Phone: Comment on above: Once per month for 12 Occurrences starti ng 01/10/2024 until 01/09/2025 Creatinine [Moles/volume] in Serum or Plasma [facility] Creatinine [Moles/volume] in Serum or Plasma [facility] Creatinine [Moles/volume] in Serum or Plasma [facility] Creatinine [Moles/volume] in Serum or Plasma [facility] End: 09-14-2023 Ct abdomen & pelvis w/contrast material CT ABD/PEL W IVCON Radiology Routine Abnormal CT scan, pelvis Abnormal CT of the abdomen 1 Occurrences starting 08/15/2022 until 09/14/2023 [facility] Work Phone: Comment on above: 1 Occurrences starting 08/15/2022 until 09/14/2023 End: 2026 CT Hip - right WO contrast CT HIP WO IVCON RIGHT Radiology Routine Primary osteoarthritis of right hip Preoperative testing 1 Occurrences starting 04/16/2025 until 2026 [facility] Work Phone: Comment on above: 1 Occurrences starting 04/16/2025 until 2026 End: 09-07-2023 CT WHOLE BODY SKULL TO KNEE WO IVCON CT WHOLE BODY SKULL TO KNEE WO IVCON Radiology Routine Multiple myeloma not having achieved remission (HCC) Monoclonal gammopathy Secondary systemic amyloidosis (HCC) 1 Occurrences starting 08/08/2022 until 09/07/2023 [facility] Work Phone: Comment on above: 1 Occurrences starting 08/08/2022 until 09/07/2023 DNA double strand Ab [Units/volume] in Serum [facility] Work Phone: DNA EXTRACTION BONE MARROW (BUFFY COAT) DNA EXTRACTION BONE MARROW (BUFFY COAT) Lab Routine Multiple myeloma not having achieved remission (HCC) Pre-transplant evaluation for stem cell transplant 04/19/2023 11:22 AM EDT [facility] Work Phone: ECG COMPLETE ECG COMPLETE ECG Routine Mixed hyperlipidemia Primary hypertension Right bundle branch block History of pulmonary embolism Type 2 diabetes mellitus without complication, without long-term current use of insulin (HCC) Multiple myeloma not having achieved remission (HCC) Ordered: 04/17/2025 [facility] Work Phone: Comment on above: Ordered: 04/17/2025 Electrophoresis: [id number] [facility] Work Phone: Electrophoresis: irma ma globulin [facility] Work Phone: End: 12-21-2024 EMG(NEURO/NI) EMG(NEURO/NI) EMG Routine Right thigh pain Muscle pain Weakness of right lower extremity Femoral neuropathy of right lower extremity 1 Occurrences starting 12/22/2023 until 12/21/2024 [facility] Work Phone: Comment on above: 1 Occurrences starting 12/22/2023 until 12/21/2024 End: 10-02-2025 EMG(NEURO/NI) EMG(NEURO/NI) EMG Routine 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) 1 Occurrences starting 10/02/2024 until 10/02/2025 [facility] Work Phone: Comment on above: 1 Occurrences starting 10/02/2024 until 10/02/2025 Enteric Bacteriology Enteric Bacteriology [facility] Work Phone: Erythrocyte mean corpuscular volume determination [facility] F5 gene mutations fo und [Identifier] in Blood or Tissue by Molecular genetics method [facility] [facility] Fat [Mass/mass] in Stool [facility] Work Phone: Fat.neutral [Presenc e] in Stool [facility] Work Phone: FLOW CYTOMETRY BONE MARROW REFLEX FLOW CYTOMETRY BONE MARROW REFLEX Lab Routine Multiple myeloma not having achieved remission (HCC) Pre-transplant evaluation for stem cell transplant 04/19/2023 11:22 AM EDT [facility] Work Phone: FLOW CYTOMETRY FOR LEUKEMIA/LYMPHOMA (FCLL) PERFORMABLE FLOW CYTOMETRY FOR LEUKEMIA/LYMPHOMA (FCLL) PERFORMABLE Lab Routine Multiple myeloma not having achieved remission (HCC) Examination of participant in clinical trial 07/18/2024 1:59 PM EDT [facility] Folate [Mass/volume] in Serum or Plasma [facility] Giardia lamblia Ag [Presence] in Stool by Immunoassay [facility] Work Phone: Gliadin peptide IgA Ab [Units/volume] in Serum [facility] Work Phone: Gliadin peptide IgG Ab [Units/volume] in Serum [facility] Work Phone: Globulin measurement [facility] Work Phone: Glucose [Mass/volume ] in Serum or Plasma [facility] Glucose [Mass/volume ] in Serum or Plasma [facility] Glucose [Mass/volume ] in Serum or Plasma [facility] Glucose [Mass/volume ] in Serum or Plasma [facility] End: 11-03-2025 Guidance for injection of Hip [facility] Work Phone: Comment on above: 1 Occurrences starting 10/04/2024 until 11/03/2025 Hematocrit [Volume Fraction] of Blood [facility] Hematocrit [Volume Fraction] of Blood [facility] Hematocrit [Volume Fraction] of Blood [facility] Hematocrit [Volume Fraction] of Blood [facility] Hemoglobin [Mass/vol ume] in Blood [facility] Hemoglobin [Mass/vol ume] in Blood [facility] Hemoglobin [Mass/vol ume] in Blood [facility] Hemoglobin [Mass/vol ume] in Blood [facility] Hemoglobin [Presence ] in Urine [facility] Work Phone: Hemoglobin A1c/Hemoglobin.total in Blood [facility] IgA [Mass/volume] in Serum or Plasma [facility] Work Phone: IgE [Units/volume] i n Serum or Plasma [facility] Work Phone: IgG [Mass/volume] in Serum or Plasma [facility] Work Phone: IgM [Mass/volume] in Serum or Plasma [facility] Work Phone: End: 01-21-2024 IMAGING GUIDED ASP/INJ HIP JT/BURSA LEFT IMAGING GUIDED ASP/INJ HIP JT/BURSA LEFT Radiology Routine Pain in left hip 1 Occurrences starting 12/22/2022 until 01/21/2024 [facility] Work Phone: Comment on above: 1 Occurrences starting 12/22/2022 until 01/21/2024 End: 01-09-2025 IMMUNOGLOBULINS IRMA IMMUNOGLOBULINS IRMA Lab Routine Multiple myeloma not having achieved remission (HCC) Once per month for 12 Occurrences starting 01/10/2024 until 01/09/2025 [facility] Work Phone: Comment on above: Once per month for 12 Occurrences starti ng 01/10/2024 until 01/09/2025 Maryanne-1 extractable nuc lear Ab [Units/volume] in Serum [facility] Work Phone: End: 11-15-2023 KAPPA/SUAZO,FREE,SER KAPPA/SUAZO,FREE,SER Lab Routine Multiple myeloma not having achieved remission (HCC) Vitamin D deficiency Once per month for 12 Occurrences starting 11/15/2022 until 11/15/2023 [facility] Work Phone: Comment on above: Once per month for 12 Occurrences starti ng 11/15/2022 until 11/15/2023 End: 01-09-2025 KAPPA/SUAZO,FREE,SER KAPPA/SUAZO,FREE,SER Lab Routine Multiple myeloma not having achieved remission (HCC) Once per month for 12 Occurrences starting 01/10/2024 until 01/09/2025 [facility] Work Phone: Comment on above: Once per month for 12 Occurrences starti ng 01/10/2024 until 01/09/2025 End: 04-09-2024 Lactate dehydrogenase [Enzymatic activity/volume] in Serum or Plasma LD LACTATE DEHYDRO Lab Routine Multiple myeloma not having achieved remission (HCC) Once per month for 12 Occurrences starting 04/11/2023 until 04/09/2024 [facility] Work Phone: Comment on above: Once per month for 12 Occurrences starti ng 04/11/2023 until 04/09/2024 End: 01-09-2025 Lactate dehydrogenase [Enzymatic activity/volume] in Serum or Plasma LD LACTATE DEHYDRO Lab Routine Multiple myeloma not having achieved remission (HCC) Once per month for 12 Occurrences starting 01/10/2024 until 01/09/2025 [facility] Work Phone: Comment on above: Once per month for 12 Occurrences starti ng 01/10/2024 until 01/09/2025 Lactic acid measurement [facility] Leukocytes [#/volume ] in Blood [facility] Leukocytes [#/volume ] in Blood [facility] Leukocytes [#/volume ] in Blood [facility] Leukocytes [#/volume ] in Blood [facility] End: 12-23-2025 LUMBAR PUNCTURE/MARLEY LUMBAR PUNCTURE/MARLEY NEUROLOGY Routine Mild cognitive impairment 1 Occurrences starting 12/23/2024 until 12/23/2025 [facility] Work Phone: Comment on above: 1 Occurrences starting 12/23/2024 until 12/23/2025 LUNG DIFFUSION CAPAC ITY (DLCO) LUNG DIFFUSION CAPACITY (DLCO) PFT Routine Multiple myeloma not having achieved remission (HCC) Pre-transplant evaluation for stem cell transplant 04/17/2023 10:20 AM EDT [facility] Work Phone: Magnesium [Mass/volu me] in Serum or Plasma [facility] Work Phone: End: 06-20-2024 Magnesium [Mass/volume] in Serum or Plasma MAGNESIUM BLD Lab Routine Multiple myeloma not having achieved remission (HCC) Once per week for 3 Occurrences starting 06/21/2023 until 06/20/2024 [facility] Work Phone: Comment on above: Once per week for 3 Occurrences starting 06/21/2023 until 06/20/2024 Magnesium [Mass/volu me] in Serum or Plasma [facility] Mean corpuscular hemoglobin concentration determination [facility] Mean corpuscular hemoglobin concentration determination [facility] Mean corpuscular hemoglobin concentration determination [facility] Mean corpuscular hemoglobin concentration determination [facility] Mean corpuscular hemoglobin determination [facility] Mean corpuscular hemoglobin determination [facility] Mean corpuscular hemoglobin determination [facility] Mean corpuscular hemoglobin determination [facility] Measurement of 3,4-methylenedioxymetham phetamine in urine [facility] Measurement of immunoglobulin A in serum specimen [facility] Work Phone: Measurement of keton es in urine using dipstick [facility] Work Phone: Measurement of renal function [facility] Measurement of renal function [facility] Measurement of renal function [facility] Measurement of renal function [facility] Methadone measuremen t, urine [facility] Microscopic urinalysis [facility] Work Phone: MISC SEND OUT TST 1 MISC SEND OU T TST 1 Lab Routine Mild cognitive impairment REM sleep behavior disorder 12/30/2024 9:00 AM EDT [facility] Work Phone: MONOCLONAL PROT 24 U R W/INTERP MONOCLONAL PROT 24 UR W/INTERP Lab Routine Multiple myeloma not having achieved remission (HCC) Monoclonal gammopathy Secondary systemic amyloidosis (HCC) Ordered: 08/08/2022 [facility] Work Phone: Comment on above: Ordered: 08/08/2022 MONOCLONAL PROT 24 U R W/INTERP MONOCLONAL PROT 24 UR W/INTERP Lab Routine Multiple myeloma not having achieved remission (HCC) Examination of participant in clinical trial Ordered: 07/23/2023 [facility] Work Phone: Comment on above: Ordered: 07/23/2023 MONOCLONAL PROT 24 U R W/INTERP MONOCLONAL PROT 24 UR W/INTERP Lab Routine Examination of participant in clinical trial Multiple myeloma not having achieved remission (HCC) Ordered: 09/18/2023 [facility] Work Phone: Comment on above: Ordered: 09/18/2023 MONOCLONAL PROT 24 U R W/INTERP MONOCLONAL PROT 24 UR W/INTERP Lab Routine Examination of participant in clinical trial Multiple myeloma not having achieved remission (HCC) Ordered: 12/11/2023 [facility] Work Phone: Comment on above: Ordered: 12/11/2023 End: 01-09-2025 MONOCLONAL PROT 24 UR W/INTERP MONOCLONAL PROT 24 UR W/INTERP Lab Routine Multiple myeloma not having achieved remission (HCC) Once per month for 12 Occurrences starting 01/10/2024 until 01/09/2025 [facility] Work Phone: Comment on above: Once per month for 12 Occurrences starti ng 01/10/2024 until 01/09/2025 MONOCLONAL PROT 24 U R W/INTERP MONOCLONAL PROT 24 UR W/INTERP Lab Routine Multiple myeloma not having achieved remission (HCC) Ordered: 03/07/2024 [facility] Comment on above: Ordered: 03/07/2024 End: 11-15-2023 MONOCLONAL PROT UR W/INTERP MONOCLONAL PROT UR W/INTERP Lab Routine Multiple myeloma not having achieved remission (HCC) Vitamin D deficiency Once per month for 12 Occurrences starting 11/15/2022 until 11/15/2023 [facility] Work Phone: Comment on above: Once per month for 12 Occurrences starti ng 11/15/2022 until 11/15/2023 End: 01-09-2025 MONOCLONAL PROT UR W/INTERP MONOCLONAL PROT UR W/INTERP Lab Routine Multiple myeloma not having achieved remission (HCC) Once per month for 12 Occurrences starting 01/10/2024 until 01/09/2025 [facility] Work Phone: Comment on above: Once per month for 12 Occurrences starti ng 01/10/2024 until 01/09/2025 End: 11-15-2023 MONOCLONAL PROTEIN, SERUM (BLOOD) MONOCLONAL PROTEIN, SERUM (BLOOD) Lab Routine Multiple myeloma not having achieved remission (HCC) Vitamin D deficiency Once per month for 12 Occurrences starting 11/15/2022 until 11/15/2023 [facility] Work Phone: Comment on above: Once per month for 12 Occurrences starti ng 11/15/2022 until 11/15/2023 End: 01-09-2025 MONOCLONAL PROTEIN, SERUM (BLOOD) MONOCLONAL PROTEIN, SERUM (BLOOD) Lab Routine Multiple myeloma not having achieved remission (HCC) Once per month for 12 Occurrences starting 01/10/2024 until 01/09/2025 [facility] Work Phone: Comment on above: Once per month for 12 Occurrences starti ng 01/10/2024 until 01/09/2025 End: 04-06-2025 MR Brain WO and W contrast IV MRI BRAIN WO/W IVCON Radiology Routine Altered mental status, unspecified altered mental status type Multiple myeloma not having achieved remission (HCC) 1 Occurrences starting 03/07/2024 until 04/06/2025 [facility] Work Phone: Comment on above: 1 Occurrences starting 03/07/2024 until 04/06/2025 MR Brain WO and W contrast IV MRI BRAIN WO/W IVCON Radiology Routine Altered mental status, unspecified altered mental status type Multiple myeloma not having achieved remission (HCC) 03/22/2024 9:48 AM EDT [facility] Work Phone: End: 04-24-2025 MR Brain WO and W contrast IV MRI BRAIN WO/W IVCON Radiology Routine Schwannoma of nerve of head 1 Occurrences starting 03/25/2024 until 04/24/2025 [facility] Work Phone: Comment on above: 1 Occurrences starting 03/25/2024 until 04/24/2025 End: 05-09-2025 MR Brain WO and W contrast IV MRI BRAIN WO/W IVCON Radiology Routine Multiple myeloma not having achieved remission (HCC) Vestibular schwannoma (HCC) 1 Occurrences starting 04/09/2024 until 05/09/2025 [facility] Work Phone: Comment on above: 1 Occurrences starting 04/09/2024 until 05/09/2025 End: 11-07-2025 MR Brain WO and W contrast IV MRI BRAIN WO/W IVCON Radiology Routine Vestibular schwannoma (HCC) 1 Occurrences starting 10/08/2024 until 11/07/2025 [facility] Work Phone: Comment on above: 1 Occurrences starting 10/08/2024 until 11/07/2025 End: 05-08-2026 MR Brain WO and W contrast IV MRI BRAIN WO/W IVCON Radiology Routine Vestibular schwannoma (HCC) 1 Occurrences starting 04/08/2025 until 05/08/2026 [facility] Work Phone: Comment on above: 1 Occurrences starting 04/08/2025 until 05/08/2026 End: 04-26-2025 MR Skull base WO and W contrast IV MRI SKULL BASE WO/W IVCON Radiology Routine Schwannoma of nerve of head Multiple myeloma not having achieved remission (HCC) 1 Occurrences starting 03/27/2024 until 04/26/2025 [facility] Work Phone: Comment on above: 1 Occurrences starting 03/27/2024 until 04/26/2025 MR Skull base WO and W contrast IV MRI SKULL BASE WO/W IVCON Radiology Routine Schwannoma of nerve of head Multiple myeloma not having achieved remission (HCC) 03/29/2024 8:21 AM EDT [facility] Work Phone: End: 09-29-2023 Mri abdomen w/o & w/contrast material MRI LIVER WO/W IVCON Radiology STAT Liver mass Abnormal CT of the abdomen 1 Occurrences starting 08/30/2022 until 09/29/2023 [facility] Work Phone: Comment on above: 1 Occurrences starting 08/30/2022 until 09/29/2023 End: 10-09-2023 Mri pelvis w/o & w/contrast material MRI PELVIS ORTHO GENERAL WO/W IVCON Radiology Routine Smoldering myeloma 1 Occurrences starting 09/09/2022 until 10/09/2023 [facility] Work Phone: Comment on above: 1 Occurrences starting 09/09/2022 until 10/09/2023 End: 10-09-2023 Mri spinal canal cervical w/o & w/contr matrl MRI CERVICAL SPINE WO/W IVCON Radiology Routine Smoldering myeloma 1 Occurrences starting 09/09/2022 until 10/09/2023 [facility] Work Phone: Comment on above: 1 Occurrences starting 09/09/2022 until 10/09/2023 End: 10-09-2023 Mri spinal canal lumbar w/o & w/contr matrl MRI LUMBAR SPINE WO/W IVCON Radiology Routine Smoldering myeloma 1 Occurrences starting 09/09/2022 until 10/09/2023 [facility] Work Phone: Comment on above: 1 Occurrences starting 09/09/2022 until 10/09/2023 End: 10-09-2023 Mri spinal canal thoracic w/o & w/contr matrl MRI THORACIC SPINE WO/W IVCON Radiology Routine Smoldering myeloma 1 Occurrences starting 09/09/2022 until 10/09/2023 [facility] Work Phone: Comment on above: 1 Occurrences starting 09/09/2022 until 10/09/2023 Neutrophil count [facility] Neutrophil count [facility] Neutrophil count [facility] Neutrophil count [facility] Neutrophil cytoplasm ic Ab.classic [Units/volume] in Serum [facility] Work Phone: Neutrophil percent differential count [facility] Neutrophil percent differential count [facility] Neutrophil percent differential count [facility] Neutrophil percent differential count [facility] Ova and Parasites Ova and Parasites [facility] Work Phone: Ova and parasites identified in Unspecified specimen by Light microscopy [facility] Work Phone: P-ANCA measurement [facility] Work Phone: Patient Education [facility] Work Phone: Patient referral [facility] Work Phone: PFIZER-BIONTCoupad COVI D-19 VACCINE () AGE 12+ YR PFIZER-BIONTECH COVID-19 VACCINE () AGE 12+ YR Immunization/Injection Routine History of autologous stem cell transplant (HCC) Multiple myeloma in remission (HCC) Need for vaccination Ordered: 12/26/2023 [facility] Work Phone: Comment on above: Ordered: 12/26/2023 pH of Urine [facility] Work Phone: pH of Urine [facility] Phencyclidine [Prese nce] in Urine [facility] Platelets [#/volume] in Blood [facility] Platelets [#/volume] in Blood [facility] Platelets [#/volume] in Blood [facility] Platelets [#/volume] in Blood [facility] Potassium [Moles/vol ume] in Serum or Plasma [facility] Potassium [Moles/vol ume] in Serum or Plasma [facility] Potassium [Moles/vol ume] in Serum or Plasma [facility] Potassium [Moles/vol ume] in Serum or Plasma [facility] PROT ELEC UR 24HR W/ M SPIKE (P) PROT ELEC UR 24HR W/M SPIKE (P) Lab Routine Multiple myeloma not having achieved remission (HCC) Monoclonal gammopathy Secondary systemic amyloidosis (HCC) Ordered: 08/08/2022 [facility] Work Phone: Comment on above: Ordered: 08/08/2022 PROT ELEC UR 24HR W/ M SPIKE (P) PROT ELEC UR 24HR W/M SPIKE (P) Lab Routine Multiple myeloma not having achieved remission (HCC) Examination of participant in clinical trial Ordered: 07/23/2023 [facility] Work Phone: Comment on above: Ordered: 07/23/2023 PROT ELEC UR 24HR W/ M SPIKE (P) PROT ELEC UR 24HR W/M SPIKE (P) Lab Routine Multiple myeloma not having achieved remission (HCC) Examination of participant in clinical trial Ordered: 08/14/2023 [facility] Work Phone: Comment on above: Ordered: 08/14/2023 PROT ELEC UR 24HR W/ M SPIKE (P) PROT ELEC UR 24HR W/M SPIKE (P) Lab Routine Examination of participant in clinical trial Multiple myeloma not having achieved remission (HCC) Ordered: 09/18/2023 [facility] Work Phone: Comment on above: Ordered: 09/18/2023 PROT ELEC UR 24HR W/ M SPIKE (P) PROT ELEC UR 24HR W/M SPIKE (P) Lab Routine Examination of participant in clinical trial Multiple myeloma not having achieved remission (HCC) Ordered: 12/11/2023 [facility] Work Phone: Comment on above: Ordered: 12/11/2023 PROT ELEC UR 24HR W/ M SPIKE (P) PROT ELEC UR 24HR W/M SPIKE (P) Lab Routine Multiple myeloma not having achieved remission (HCC) Ordered: 03/07/2024 [facility] Comment on above: Ordered: 03/07/2024 PROT ELEC UR 24HR W/ M SPIKE AND INTERP PROT ELEC UR 24HR W/M SPIKE AND INTERP Lab Routine Multiple myeloma not having achieved remission (HCC) Monoclonal gammopathy Secondary systemic amyloidosis (HCC) Ordered: 08/08/2022 [facility] Work Phone: Comment on above: Ordered: 08/08/2022 PROT ELEC UR 24HR W/ M SPIKE AND INTERP PROT ELEC UR 24HR W/M SPIKE AND INTERP Lab Routine Multiple myeloma not having achieved remission (HCC) Examination of participant in clinical trial Ordered: 07/23/2023 [facility] Work Phone: Comment on above: Ordered: 07/23/2023 PROT ELEC UR 24HR W/ M SPIKE AND INTERP PROT ELEC UR 24HR W/M SPIKE AND INTERP Lab Routine Multiple myeloma not having achieved remission (HCC) Examination of participant in clinical trial Ordered: 08/14/2023 [facility] Work Phone: Comment on above: Ordered: 08/14/2023 PROT ELEC UR 24HR W/ M SPIKE AND INTERP PROT ELEC UR 24HR W/M SPIKE AND INTERP Lab Routine Examination of participant in clinical trial Multiple myeloma not having achieved remission (HCC) Ordered: 09/18/2023 [facility] Work Phone: Comment on above: Ordered: 09/18/2023 PROT ELEC UR 24HR W/ M SPIKE AND INTERP PROT ELEC UR 24HR W/M SPIKE AND INTERP Lab Routine Examination of participant in clinical trial Multiple myeloma not having achieved remission (HCC) Ordered: 12/11/2023 [facility] Work Phone: Comment on above: Ordered: 12/11/2023 End: 01-09-2025 PROT ELEC UR 24HR W/M SPIKE AND INTERP PROT ELEC UR 24HR W/M SPIKE AND INTERP Lab Routine Multiple myeloma not having achieved remission (HCC) Once per month for 12 Occurrences starting 01/10/2024 until 01/09/2025 [facility] Work Phone: Comment on above: Once per month for 12 Occurrences starti ng 01/10/2024 until 01/09/2025 PROT ELEC UR 24HR W/ M SPIKE AND INTERP PROT ELEC UR 24HR W/M SPIKE AND INTERP Lab Routine Multiple myeloma not having achieved remission (HCC) Ordered: 03/07/2024 [facility] Work Phone: Comment on above: Ordered: 03/07/2024 Protein [Mass/time] in 24 hour Urine PROTEIN 24 HR URINE Lab Routine Multiple myeloma not having achieved remission (HCC) Monoclonal gammopathy Secondary systemic amyloidosis (HCC) Ordered: 08/08/2022 [facility] Work Phone: Comment on above: Ordered: 08/08/2022 Protein [Mass/time] in 24 hour Urine PROTEIN 24 HR URINE Lab Routine Multiple myeloma not having achieved remission (HCC) Examination of participant in clinical trial Ordered: 07/23/2023 [facility] Work Phone: Comment on above: Ordered: 07/23/2023 Protein [Mass/time] in 24 hour Urine PROTEIN 24 HR URINE Lab Routine Multiple myeloma not having achieved remission (HCC) Examination of participant in clinical trial Ordered: 08/14/2023 [facility] Work Phone: Comment on above: Ordered: 08/14/2023 Protein [Mass/time] in 24 hour Urine PROTEIN 24 HR URINE Lab Routine Examination of participant in clinical trial Multiple myeloma not having achieved remission (HCC) Ordered: 09/18/2023 [facility] Work Phone: Comment on above: Ordered: 09/18/2023 Protein [Mass/time] in 24 hour Urine PROTEIN 24 HR URINE Lab Routine Examination of participant in clinical trial Multiple myeloma not having achieved remission (HCC) Ordered: 12/11/2023 [facility] Work Phone: Comment on above: Ordered: 12/11/2023 Protein [Mass/time] in 24 hour Urine PROTEIN, 24 HOUR URINE Lab Routine Multiple myeloma not having achieved remission (HCC) Ordered: 03/07/2024 [facility] Comment on above: Ordered: 03/07/2024 Protein C [Units/vol ume] in Platelet poor plasma by Coagulation assay [facility] Protein C Ag actual/normal in Platelet poor plasma by Immunoassay [facility] End: 11-15-2023 PROTEIN ELECT RND UR W/INTERP PROTEIN ELECT RND UR W/INTERP Lab Routine Multiple myeloma not having achieved remission (HCC) Vitamin D deficiency Once per month for 12 Occurrences starting 11/15/2022 until 11/15/2023 [facility] Work Phone: Comment on above: Once per month for 12 Occurrences starti ng 11/15/2022 until 11/15/2023 End: 01-09-2025 PROTEIN ELECT RND UR W/INTERP PROTEIN ELECT RND UR W/INTERP Lab Routine Multiple myeloma not having achieved remission (HCC) Once per month for 12 Occurrences starting 01/10/2024 until 01/09/2025 [facility] Work Phone: Comment on above: Once per month for 12 Occurrences starti ng 01/10/2024 until 01/09/2025 Protein electrophore sis panel - Serum or Plasma [facility] Work Phone: End: 11-15-2023 PROTEIN ELECTROPHORESIS SERUM W/INTERP PROTEIN ELECTROPHORESIS SERUM W/INTERP Lab Routine Multiple myeloma not having achieved remission (HCC) Vitamin D deficiency Once per month for 12 Occurrences starting 11/15/2022 until 11/15/2023 [facility] Work Phone: Comment on above: Once per month for 12 Occurrences starti ng 11/15/2022 until 11/15/2023 End: 01-09-2025 PROTEIN ELECTROPHORESIS SERUM W/INTERP PROTEIN ELECTROPHORESIS SERUM W/INTERP Lab Routine Multiple myeloma not having achieved remission (HCC) Once per month for 12 Occurrences starting 01/10/2024 until 01/09/2025 [facility] Work Phone: Comment on above: Once per month for 12 Occurrences starti ng 01/10/2024 until 01/09/2025 Protein measurement [facility] Work Phone: End: 09-07-2023 Radiologic examination osseous survey compl XR BONE SURVEY ROUTINE Radiology Routine Multiple myeloma not having achieved remission (HCC) Monoclonal gammopathy Secondary systemic amyloidosis (HCC) 1 Occurrences starting 08/08/2022 until 09/07/2023 [facility] Work Phone: Comment on above: 1 Occurrences starting 08/08/2022 until 09/07/2023 End: 08-08-2022 Radiologic examination osseous survey compl [facility] Work Phone: Comment on above: 1 Occurrences starting 08/08/2022 until 08/08/2022 Red blood cell count [facility] Red blood cell count [facility] Red blood cell count [facility] Red blood cell count [facility] Red cell distributio n width determination [facility] Red cell distributio n width determination [facility] Red cell distributio n width determination [facility] Red cell distributio n width determination [facility] SCL-70 extractable nuclear Ab [Units/volume] in Serum by Immunoassay [facility] Work Phone: Serum inorganic phosphate measurement [facility] Serum protein electrophoresis [facility] Work Phone: Remy extractable nuclear Ab [Presence] in Serum [facility] Work Phone: Sodium [Moles/volume ] in Serum or Plasma [facility] Sodium [Moles/volume ] in Serum or Plasma [facility] Sodium [Moles/volume ] in Serum or Plasma [facility] Sodium [Moles/volume ] in Serum or Plasma [facility] Specific gravity of Urine [facility] Work Phone: SPINE INTERVENTION PROCEDURE SPINE INTERVENTION PROCEDURE Procedures Routine Lumbar radiculopathy 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 Ordered: 03/21/2025 [facility] Work Phone: Comment on above: Ordered: 03/21/2025 T4 free measurement [facility] Work Phone: Targeted analysis fo r gene mutation [facility] Tissue transglutamin ase IgA Ab [Units/volume] in Serum [facility] Work Phone: Tissue transglutamin ase IgG Ab [Units/volume] in Serum [facility] Work Phone: Total protein measurement [facility] TOURTELLOTTE CSF TOURTELLOTTE CS F Lab Routine Mild cognitive impairment Ordered: 12/23/2024 [facility] Comment on above: Ordered: 12/23/2024 TOURTELLOTTE CSF TOURTELLOTTE CS F Lab Routine Mild cognitive impairment Ordered: 12/23/2024 [facility] Comment on above: Ordered: 12/23/2024 Urea nitrogen [Mass/volume] in Serum or Plasma [facility] Urea nitrogen [Mass/volume] in Serum or Plasma [facility] Urea nitrogen [Mass/volume] in Serum or Plasma [facility] Urea nitrogen [Mass/volume] in Serum or Plasma [facility] Urinalysis, blood, qualitative [facility] Work Phone: Urine barbiturate measurement [facility] Urine cannabinoid measurement [facility] Urine dipstick for glucose [facility] Work Phone: Urine dipstick for leukocyte esterase [facility] Work Phone: Urine dipstick for nitrite [facility] Work Phone: Urine dipstick for protein [facility] Work Phone: Urine examination [facility] Work Phone: Urine microscopy: epithelial cells [facility] Work Phone: Urine Microscopy: wh ite cells [facility] Work Phone: Urine opiate measurement [facility] Urobilinogen [Presen ce] in Urine [facility] Work Phone: End: 06-15-2024 US ABDOMEN LTD US ABDOMEN LTD Radiology Routine Multiple myeloma not having achieved remission (HCC) Other intra-abdominal and pelvic swelling, mass and lump 1 Occurrences starting 05/17/2023 until 06/15/2024 [facility] Work Phone: Comment on above: 1 Occurrences starting 05/17/2023 until 06/15/2024 US LEG VEIN DVT UNL VAS LAB US LEG VEIN DVT UNL VAS LAB Vascular Lab STAT Multiple myeloma not having achieved remission (HCC) Leg swelling 11/23/2022 2:55 PM EST [facility] Work Phone: End: 01-05-2024 XR FEMUR GENERAL 2V AP/LAT LEFT XR FEMUR GENERAL 2V AP/LAT LEFT Radiology Routine Multiple myeloma not having achieved remission (HCC) Hip pain, left Paralabral cyst of left hip 1 Occurrences starting 12/06/2022 until 01/05/2024 [facility] Work Phone: Comment on above: 1 Occurrences starting 12/06/2022 until 01/05/2024 XR FEMUR GENERAL 2V AP/LAT LEFT XR FEMUR GENERAL 2V AP/LAT LEFT Radiology Routine Multiple myeloma not having achieved remission (HCC) Hip pain, left Paralabral cyst of left hip 12/06/2022 10:01 AM EST [facility] Work Phone: End: 01-05-2024 XR HIP GENERAL 3V PELV/AP/LAT LEFT XR HIP GENERAL 3V PELV/AP/LAT LEFT Radiology Routine Multiple myeloma not having achieved remission (HCC) Hip pain, left Paralabral cyst of left hip 1 Occurrences starting 12/06/2022 until 01/05/2024 [facility] Work Phone: Comment on above: 1 Occurrences starting 12/06/2022 until 01/05/2024 XR HIP GENERAL 3V PELV/AP/LAT LEFT XR HIP GENERAL 3V PELV/AP/LAT LEFT Radiology Routine Multiple myeloma not having achieved remission (HCC) Hip pain, left Paralabral cyst of left hip 12/06/2022 10:01 AM DENA [facility] Work Phone: End: 09-21-2025 XR Knee - left AP and Lateral XR KNEE LIMITED 2V AP/LAT LEFT Radiology Routine Chronic pain of both knees 1 Occurrences starting 08/22/2024 until 09/21/2025 [facility] Work Phone: Comment on above: 1 Occurrences starting 08/22/2024 until 09/21/2025 XR Knee - left AP an d Lateral XR KNEE LIMITED 2V AP/LAT LEFT Radiology Routine Chronic pain of both knees 08/22/2024 10:12 AM EDT [facility] End: 09-21-2025 XR Knee - right AP and Lateral XR KNEE LIMITED 2V AP/LAT RIGHT Radiology Routine Chronic pain of both knees 1 Occurrences starting 08/22/2024 until 09/21/2025 [facility] Comment on above: 1 Occurrences starting 08/22/2024 until 09/21/2025 XR Knee - right AP a nd Lateral XR KNEE LIMITED 2V AP/LAT RIGHT Radiology Routine Chronic pain of both knees 08/22/2024 10:08 AM EDT [facility] Immunizations Immunization Date Immunization Notes Care Provider Jesus marmolejo 10-03-2024 influenza virus vaccine, unspecified formulation [facility] 1 Work Phone: [facility] 05-13-2024 haemophilus influenz ae type b vaccine, PRP-T conjugate Nurse Main Work Phone: [facility] 05-13-2024 pneumococcal conjuga te (PCV20) vaccine, 20 valent (PREVNAR 20) Nurse Main Work Phone: [facility] 05-13-2024 poliovirus vaccine, inactivated Nurse Main Work Phone: [facility] 05-13-2024 tetanus and diphther ia toxoids, adsorbed, preservative free, for adult use (5 Lf of tetanus toxoid and 2 Lf of diphtheria toxoid) Nurse Main Work Phone: [facility] 05-13-2024 zoster vaccine recombinant Nurse Main Work Phone: [facility] 05-13-2024 pneumococcal Conjuga te, unspecified formulation Nurse Main Work Phone: [facility] 05-13-2024 TD(adult) unspecifie d formulation Nurse Main Work Phone: [facility] 03-13-2024 COVID-19 vaccine, ag e 12+ yr, season (True Style) Darline Krishnan MD Work Phone: [facility] 03-13-2024 haemophilus influenz ae type b vaccine, PRP-T conjugate Darline Krishnan MD Work Phone: [facility] 03-13-2024 Hepatitis B vaccine (recombinant), CpG adjuvanted Darline Krishnan MD Work Phone: [facility] 03-13-2024 pneumococcal conjuga te (PCV20) vaccine, 20 valent (PREVNAR 20) Darline Krishnan MD Work Phone: [facility] 03-13-2024 poliovirus vaccine, inactivated Darline Krishnan MD Work Phone: [facility] 03-13-2024 tetanus and diphther ia toxoids, adsorbed, preservative free, for adult use (5 Lf of tetanus toxoid and 2 Lf of diphtheria toxoid) Darline Krishnan MD Work Phone: [facility] 03-13-2024 TD(adult) unspecifie d formulation Darline Krishnan MD Work Phone: [facility] 03-13-2024 pneumococcal Conjuga te, unspecified formulation Darline Krishnan MD Work Phone: [facility] Work Phone: 01-02-2024 haemophilus influenz ae type b vaccine, PRP-T conjugate Nurse Main Work Phone: [facility] 01-02-2024 hepatitis A vaccine, adult dosage Nurse Main Work Phone: [facility] 01-02-2024 Hepatitis B vaccine (recombinant), CpG adjuvanted Nurse Main Work Phone: [facility] 01-02-2024 pneumococcal conjuga te (PCV20) vaccine, 20 valent (PREVNAR 20) Nurse Main Work Phone: [facility] 01-02-2024 poliovirus vaccine, inactivated Nurse Main Work Phone: [facility] 01-02-2024 tetanus toxoid, redu juliette diphtheria toxoid, and acellular pertussis vaccine, adsorbed Nurse Main Work Phone: [facility] 12-26-2023 haemophilus influenz ae type b vaccine, PRP-T conjugate Nurse Main Work Phone: [facility] Work Phone: 12-26-2023 hepatitis A vaccine, adult dosage Nurse Main Work Phone: [facility] Work Phone: 12-26-2023 Hepatitis B vaccine (recombinant), CpG adjuvanted Nurse Main Work Phone: [facility] Work Phone: 12-26-2023 pneumococcal Conjuga te, unspecified formulation Nurse Main Work Phone: [facility] Work Phone: 12-26-2023 poliovirus vaccine, inactivated Nurse Main Work Phone: [facility] Work Phone: 12-26-2023 tetanus toxoid, redu juliette diphtheria toxoid, and acellular pertussis vaccine, adsorbed Nurse Main Work Phone: [facility] Work Phone: 10-24-2023 COVID-19 vaccine, ag e 12+ yr, season (Vuclip-Bubbli) Darline Krishnan MD Work Phone: [facility] 09-22-2023 influenza (HD-IIV4) vaccine, age 65+ yr, high dose, quadrivalent, PF (FLUZONE HIGH-DOSE) Darline Krishnan MD Work Phone: [facility] 09-22-2023 influenza virus vaccine, unspecified formulation Bright Thao APRN.CNP Work Phone: [facility] 11-01-2022 Covid Pfizer Bivalen t Booster Dr. Connie Lugo Work Phone: [facility] 11-01-2022 influenza (HD-IIV4) vaccine, age 65+ yr, high dose, quadrivalent, PF (FLUZONE HIGH-DOSE) Lucinda Sarabia RN Work Phone: [facility] 11-01-2022 influenza, high dose seasonal, preservative-free Dr. Connie Lugo Work Phone: [facility] 11-01-2022 influenza virus vaccine, unspecified formulation Benjamin Mott MD Work Phone: [facility] 05-05-2022 Covid (Pfizer) Dr. Connie bryant Work Phone: [facility] 05-05-2022 tetanus toxoid, redu juliette diphtheria toxoid, and acellular pertussis vaccine, adsorbed Lucinda Sarabia RN Work Phone: [facility] 10-23-2021 Covid (Moderna) Dr. Connie amaya Work Phone: [facility] 09-27-2021 Covid (Moderna) Dr. Connie amaya Work Phone: [facility] 01-20-2021 Covid (Moderna) Dr. Connie amaya Work Phone: [facility] 12-24-2020 Covid (Moderna) Dr. Connie amaya Work Phone: [facility] 10-23-2020 Covid (Moderna) Dr. Connie amaya Work Phone: [facility] 08-12-2020 influenza, injectabl e, quadrivalent, preservative free Lucinda Sarabia RN Work Phone: [facility] 08-16-2019 influenza, injectabl e, quadrivalent, preservative free Lucinda Sarabia RN Work Phone: [facility] 08-17-2018 influenza, injectabl e, quadrivalent, preservative free Lucinda Sarabia RN Work Phone: [facility] 08-17-2018 pneumococcal polysaccharide vaccine, 23 valent Lucinda Sarabia RN Work Phone: [facility] 08-30-2017 influenza, injectabl e, quadrivalent, preservative free Lucinda Sarabia RN Work Phone: [facility] 08-30-2017 pneumococcal conjuga te vaccine, 13 valent Lucinda Sarabia RN Work Phone: [facility] 08-24-2016 influenza, injectabl e, quadrivalent, contains preservative Lucinda Sarabia RN Work Phone: [facility] 08-14-2013 influenza, seasonal, injectable Lucinda Sarabia RN Work Phone: [facility] 09-04-2009 novel [id number], preservative-free, injectable Lucinda Sarabia RN Work Phone: [facility] NEGATED: Highlighted row has not occurred!01-02-2024 COVID-19 vaccine, age 12+ yr, season (Vuclip-Bubbli) Nurse Main Work Phone: [facility] Comment on above: Deferred: Patient Re fused - patient stated received in november Payers Date Payer Category Payer Self-pay [id number] 2020 Private Health Insurance [id number] 2020 Unknown [id number] 2017 Medicare [id number] 2017 Medicare [id number] Unknown Unknown [id number] Unknown [id number] Unknown [id number] 2.16.8 [id number] Unknown [id number] [id number] Unknown [id number] [id number] [id number] Unknown [id number] [id number] [id number] Unknown [id number] [id number] Unknown [id number] [id number] Unknown [id number] [id number] Social History Date Type Detail Facility Start: 04-17-2022 End: 02-01-2024 Tobacco smoking status NHIS Unknown if ever smoked [facility] Start: 1950 Sex Assigned At Male [facility] Start: 04-21-2022 Non-smoker [facility] Start: 08-08-2022 Tobacco smoking stat us AKIS Never smoked tobacco [facility] Start: 08-08-2022 Tobacco use and exposure Smokeless tobacco non-user [facility] Start: 08-08-2022 End: 08-24-2022 Alcohol intake Current drinker of alcohol (finding) [facility] Start: 08-08-2022 Alcohol [facility] Start: 1950 Sex Assigned At Not on file [facility] Start: 08-01-2022 End: 09-01-2022 Exposure to SARS-CoV-2 (event) Not sure [facility] Start: 04-19-2023 End: 03-21-2025 History of Social function [facility] Start: 04-19-2023 End: 03-21-2025 Tobacco use panel [facility] Adult Depression Screening Assessment 0 [facility] Start: 01-20-2023 Gender identity Identifies as male gender (finding) [facility] Start: 01-20-2023 Sexual orientation Heterosexual (jorge mendiola) [facility] (I/We) worried tom er (my/our) food would run out before (I/we) got money to buy more. Never true [facility] Work Phone: In the past 12 month s, was there a time when you were not able to pay the mortgage or rent on time? No [facility] Work Phone: Start: 07-21-2023 End: 05-01-2025 Alcohol intake Ex-drinker (finding) [facility] Medical Equipment Procedure Code Equipment Code Equipment Origin al Text Equipment Identifier Dates Trayecenia SethFinn Tri fusion 12fr Polyurethane 19cm Catheter 3 Lumen High - [id number] Start: 05-10-2023 Head V40 36mm +5 mm Offset Taper Biolox Delta Femoral Hip - [id number] Start: 05-22-2025 Shell Trident Ii 56mm F Tritanium Acetabular 5 Screw Hole Cluster Sterile - [id number] Start: 05-22-2025 Trident X3 Eccen tric 0deg 36mm Size F Id - [id number] Start: 05-22-2025 Stem Accolade Ii 6 127d Femoral - [id number] Start: 05-22-2025 Goals Date Patient Goal Desired Activity /State Functional Status Date Assessment Result Facility 02-02-2024 Functional status Ambulates;Up ad osvaldo [facility] Work Phone: 06-14-2023 Are you deaf, or do you have serious difficulty hearing No 06/14/2023 2:30 PM Charla Lawler, LATIA No [facility] 06-14-2023 Are you blind, or do you have serious difficulty seeing, even when wearing glasses No 06/14/2023 2:30 PM Charla Lawler, RN No [facility] 06-14-2023 Do you have serious difficulty walking or climbing stairs No 06/14/2023 2:30 PM Charla Lawler, LATIA No [facility] 06-14-2023 Do you have difficul ty dressing or bathing No 06/14/2023 2:30 PM EDT Charla Pat, RN No [facility] 06-14-2023 Because of a physica l, mental, or emotional condition, do you have difficulty doing errands alone such as visiting a physician's office or shopping No 06/14/2023 2:30 PM EDT Charla Pat, RN No [facility] 01-17-2023 Functional status Chair [facility] Work Phone: 04-21-2022 Functional status Activity Abili ty Independent [facility] Work Phone: 04-21-2022 Functional status Ambulates [facility] Work Phone: Mental Status Date Assessment Result Facility 02-02-2024 Cognitive function Voice/Name [facility] Work Phone: 01-31-2024 Cognitive function Drowsy [facility] Work Phone: 01-27-2024 Cognitive function Level Of Cons ciousness Awake;Alert;Appropriate;Follow s Commands [facility] Work Phone: 01-17-2023 Cognitive function Voice/Name [facility] Work Phone: 09-21-2022 Cognitive function Level Of Consciousness Sedated [facility] Work Phone: 09-21-2022 Cognitive function Voice/Name [facility] Work Phone: 04-20-2022 Cognitive function Voice/Name [facility] Work Phone: 04-17-2022 Cognitive function Level Of Cons ciousness Awake;Alert;Appropriate;Follow s Commands [facility] Work Phone: Clinical Notes 08-08-2022 to 05-27-2025 Telephone Encounter - Bright Thao APRN.CNP - 05/27/2025 9:26 AM EDTTelephone Encounter - Bright Thao APRN.CNP - 05/27/2025 9:26 AM EDTPatient InstructionsPatient Instructions Note Date & Type Note Facility 05-27-2025 Telephone encounter Note Please see my chart message. Bright Thao APRN.CNP [facility] 05-27-2025 Miscellaneous Notes Please see my chart message. Bright Thao APRN.CNP documented in this encounter [facility] 05-26-2025 Note HNO ID: [id number] Author: DIAMOND FORDE RN Service: Care Management Author Type: Registered Nurse Type: Care Mgt Progress Note Filed: 05/26/2025 13:05 Note Text: CARE MANAGEMENT DISCHARGE NOTE SERVICE DATE: May 26, 2025 SERVICE TIME: 1:04 PM Admission Date: 05/22/2025 LOS: 3 days Discharge Arrangement Discharge Arrangement: Retirement Facility Was an expedited discharge program used?: No Services Arranged Medical Services: Other: See Comment (SNF) Provider Name: [facility] Caregiver Assessment Caregiver is ready, willing and able to meet the patient's needs as recommended by the inter-professional team: Yes Name of Caregiver: James [facility] Transportation Arrangements Transportation Arrangements: Ambulance Transportation Agency and Phone #:: [facility] [phone] Date of Trip: 05/26/25 Time of Trip: 1430 Type of Service: BLS Non-emergency Is Patient Medicaid Pending?: No Was transportation financial coverage discussed with family?: Family Family Day Care Worker Location: [place] Destination: [facility] Financial Care Management Responsibility: None Handoff Communication: Handoff to: Primary Care Physician Primary Care Physician Name/Phone: Connie Lugo MD, Summary of care sent to PCP and SNF. Additional Information: N/A DC order written for patient to go to SNF. DC orders and instructions sent to [facility] transport setup for 1430. CERTIFIED DIALYSIS TECHNICIAN, nurse, patient's and daughters and SNF are aware of transport time. SIGNATURE: Diamond Forde RN PATIENT NAME: Oseas Joseph DATE: May 26, 2025 TIME: 1:04 PM [facility] 05-26-2025 Note HNO ID: [id number] Author: DIAMOND FORDE RN Service: Care Management Author Type: Registered Nurse Type: Care Mgt Progress Note Filed: 05/26/2025 12:37 Note Text: CARE MANAGEMENT PROGRESS NOTE SERVICE DATE: 05/26/2025 SERVICE TIME: 12:31 PM LOS: 3 days Needs Prior to Discharge: None, Ready for Discharge EMR reviewed. CM spoke with patient's and daughters regarding accepting SNFs. They are agreeable to [facility]. CM will follow. IMM Follow Up Copy Given: Yes Copy given to:: Patient Leather Splitter Leather Splitter Name/Relationship: Solange Carlson, cachorro Method: In Person SIGNATURE: Diamond Forde RN PATIENT NAME: Oseas Joseph DATE: May 26, 2025 TIME: 12:31 PM [facility] 05-26-2025 Note HNO ID: [id number] Author: LONDON MARCOS MD Service: General Internal Medicine Author Type: Physician Type: Progress Notes Filed: 05/26/2025 12:23 Note Text: INPATIENT PROGRESS NOTE Subjective CHIEF COMPLAINT: S/P right ESSIE INTERVAL HPI: Improved diarrhea, no fever or chills, no abdominal pain, no CP or Shortness of Breath. Current Facility-Administered Medications Medication Dose Route Frequency clonazePAM 0.5 mg tab(s) (KlonoPIN) 0.5 mg ORAL DAILY acyclovir 400 mg tab(s) (ZOVIRAX) 400 mg ORAL BID rivaroxaban 20 mg tab(s) (XARELTO) 20 mg ORAL DAILY atorvastatin 10 mg tab(s) (LIPITOR) 10 mg ORAL DAILY losartan 50 mg tab(s) (COZAAR) 50 mg ORAL DAILY glimepiride 4 mg tab(s) (AMARYL) 4 mg ORAL q 12 H escitalopram oxalate 5 mg tab(s) (LEXAPRO) 5 mg ORAL DAILY donepezil 10 mg tab(s) (ARICEPT) 10 mg ORAL DAILY WITH BREAKFAST gabapentin 300 mg cap(s) (NEURONTIN) 300 mg ORAL q 12 H potassium chloride ER 20 mEq tab(s) (KLOR-CON) 20 mEq ORAL DAILY ondansetron orally disintegrating 4 mg tab(s) (ZOFRAN ODT) 4 mg ORAL q 6 H PRN Or ondansetron (PF) 4 mg injection (ZOFRAN) 4 mg INTRAVENOUS q 6 H PRN magnesium hydroxide 400 mg/5 mL 30 mL (MOM) 30 mL ORAL DAILY PRN aluminum-magnesium hydroxide-simethicone 200-200-20 mg/5 mL 30 mL 30 mL ORAL q 2 H PRN ferrous sulfate 325 mg tab(s) 325 mg ORAL DAILY WITH BREAKFAST ascorbic acid (vitamin C) 500 mg tab(s) (VITAMIN C) 500 mg ORAL BID w MEALS lactated ringers iv infusion 100 mL/hr INTRAVENOUS CONTINUOUS HYDROmorphone 0.4 mg injection (DILAUDID) 0.4 mg INTRAVENOUS q 3 H PRN dextrose 40 % 15 g 15 g ORAL PRN Or glucagon 1 mg injection 1 mg INTRAMUSCULAR PRN Or dextrose 10% iv bolus 12.5 g INTRAVENOUS PRN doxycycline hyclate 100 mg cap(s) (VIBRAMYCIN) 100 mg ORAL q 12 H 6a/6p acetaminophen 1,000 mg tab(s) (TYLENOL) 1,000 mg ORAL q 8 H traMADol 50-100 mg tab(s) (ULTRAM) 50-100 mg ORAL q 6 H PRN loperamide 2 mg cap(s) (IMODIUM) 2 mg ORAL TID PRN tamsulosin 0.4 mg cap(s) (FLOMAX) 0.4 mg ORAL DAILY Objective PHYSICAL EXAM: BP 155/70 Pulse 61 Temp (Src) 98.1 (Oral) Resp 16 Ht 6' .992 (1.85m) Wt 174 lb 2.6 oz (79.0kg) SpO2 98% BMI 22.98 kg/(m2). O2 Therapy: Room Air Physical Exam Performed GENERAL: Alert, no distress, cooperative LUNGS: Lungs clear to auscultation, Good diaphragmatic excursion CARDIAC: Normal S1 and S2; no rubs, murmurs, or gallops ABDOMEN: Soft, nontender EXTREMITIES: no edema. DATA: Diagnostic tests reviewed for today's visit: Most recent labs and imaging results. Assessment/Plan Diarrhea POA S/P Right ESSIE Post-operative state (POA: Yes) HTN HLP PE Alzheimer dementia T2DM CKD 3 Plan of care: continue tamsulosin for AUR, void trial in few days Continue imodium Pain control. Continue home medications. PT/OT eval. Disp: SNF. Medication and Non-Pharmacologic VTE Prophylaxis/Anticoagulants Anticoagulant AND Antiplatelet Medications (From admission, onward) Start Dose Route Frequency Last Action Ordered Stop 05/23/25 0900 rivaroxaban 20 mg tab(s) (XARELTO) 20 mg PO DAILY Given, 05/26 0918 05/22/25 1249 -- 05/22/25 1300 vte current anticoag therapy (mn,oh) 05/22/25 1300 pneumatic compression sleeve(s) (mn,tx) 05/22/25 1100 activity - mobilize patient ([place], [place]) VTE Prophylaxis: VTE prophylaxis appropriate SIGNATURE: London Marcos MD PATIENT NAME: Oseas Joseph [facility] 05-26-2025 Note HNO ID: [id number] Author: AZAEL MARTINEZ PA-C Service: Orthopaedic Surgery Author Type: Physician Spray Pilot Type: Progress Notes Filed: 05/26/2025 09:44 Note Text: POSTOP NOTE ORTHOPAEDIC SURGERY SERVICE DATE: 05/26/2025 SERVICE TIME: 8:00 AM IMPRESSION/PLAN: 75 year old male POD4 S/P Procedure(s) (LRB): ROBOTIC ASSISTED TOTAL HIP ARTHROPLASTY (Right) on 05/22/2025 Partial weight bearing 50% RLE Posterior Hip Precautions Physical Therapy recommending SNF DVT prophylaxis: Intermittent pneumatic compression device (IPCD) and Xarelto Pain control Post op delirium: improved following discontinuing oxycodone Antibiotics: doxy 100 mg BID x 2 weeks Post op fever: resolved; d/w IM the patient is medically cleared for discharge Case Management for discharge planning Dispo: SNF pending accepting facility Plan of care discussed with: Provider, RN, Patient. Patient Active Hospital Problem List: Post-operative state Date Noted: 05/23/2025 S/P total right hip arthroplasty Date Noted: 05/23/2025 SUBJECTIVE: NAEON. Well Controlled hip pain. Denies new complaints. Delirium improved. He is tolerating tramadol without issue per spouse at bedside. Awaiting SNF placement. OBJECTIVE: VITAL SIGNS: BP 155/70 Pulse 61 Temp 36.7 ?C (98.1 ?F) (Oral) Resp 18 Ht 185.4 cm (6' 0.99) Wt 79 kg (174 lb 2.6 oz) SpO2 98% BMI 22.98 kg/m? INTAKE AND OUTPUT: Intake/Output Summary (Last 24 hours) at 05/26/2025 0939 Last data filed at 05/26/2025 0650 Gross per 24 hour Intake -- Output 2100 ml Net -2100 ml LABS: Hemoglobin Date Value Ref Range Status 05/26/2025 9.0 (L) 13.0 - 17.0 g/dL Final 05/25/2025 8.8 (L) 13.0 - 17.0 g/dL Final Hematocrit Date Value Ref Range Status 05/26/2025 27.8 (L) 39.0 - 51.0 % Final 05/25/2025 27.5 (L) 39.0 - 51.0 % Final Platelet Count Date Value Ref Range Status 05/26/2025 122 (L) 150 - 400 k/uL Final 05/25/2025 103 (L) 150 - 400 k/uL Final WBC Date Value Ref Range Status 05/26/2025 5.08 3.70 - 11.00 k/uL Final 05/25/2025 5.36 3.70 - 11.00 k/uL Final Creatinine Date Value Ref Range Status 05/26/2025 0.99 0.73 - 1.22 mg/dL Final 05/25/2025 1.09 0.73 - 1.22 mg/dL Final Potassium Date Value Ref Range Status 05/26/2025 3.9 3.7 - 5.1 mmol/L Final 05/25/2025 3.9 3.7 - 5.1 mmol/L Final VTE Prophylaxis: Active VTE Risk Category Order: 05/22/25 1300 VTE RISK CATEGORY: SURGICAL HIGH RISK ([place]) Active VTE Medication Orders: Anticoagulant AND Antiplatelet Medications (From admission, onward) Start Dose Route Frequency Last Action Ordered Stop 05/23/25 0900 rivaroxaban 20 mg tab(s) (XARELTO) 20 mg PO DAILY Given, 05/26 0918 05/22/25 1249 -- Active VTE Prophylaxis Orders: 05/22/25 1300 VTE CURRENT ANTICO[place]APY [place] 05/22/25 1300 PNEUMATIC COMPRESSION SLEEVE(S[place] 05/22/25 1100 ACTIVITY - MOBILIZE PATIENT ([place], [place]) PHYSICAL EXAMINATION: Right Lower Extremity: Dorsalis pedis pulses palpable. Posterior tibial pulses palpable. Dorsi flexion 5/5. Plantar flexion 5/5. Extensor hallucis extension: 5/5. Sensory intact to light touch L1-S1. Dressing clean, dry, and intact. Surgical site no drainage and Silverlon intact. DATA: Diagnostic tests reviewed for today's visit: Most recent labs and imaging results. SIGNATURE: Azael Martinez PA-C PATIENT NAME: Oseas Joseph DATE: May 26, 2025 TIME: 9:39 AM The patient has undergone major orthopedic surgery and participating in therapy. Pain cannot be managed within an average of 30 MED per day. Patient requiring average of higher than 30 MED per day in order to control pain and allow patient to actively and safely participate in therapy and this is the lowest dose consistent with patient's medical condition. Non-narcotic medication options have been discussed. In addition, the patient has been advised of the benefits and risks of the opioid (including the potential for addiction). Patient demonstrated understanding of risks versus benefits. [facility] 05-25-2025 Note HNO ID: [id number] Author: LONDON MARCOS MD Service: General Internal Medicine Author Type: Physician Type: Progress Notes Filed: 05/25/2025 10:34 Note Text: INPATIENT PROGRESS NOTE Subjective CHIEF COMPLAINT: S/P right ESSIE INTERVAL HPI: Improved diarrhea, no fever or chills, no abdominal pain, no CP or Shortness of Breath. Current Facility-Administered Medications Medication Dose Route Frequency clonazePAM 0.5 mg tab(s) (KlonoPIN) 0.5 mg ORAL DAILY acyclovir 400 mg tab(s) (ZOVIRAX) 400 mg ORAL BID rivaroxaban 20 mg tab(s) (XARELTO) 20 mg ORAL DAILY atorvastatin 10 mg tab(s) (LIPITOR) 10 mg ORAL DAILY losartan 50 mg tab(s) (COZAAR) 50 mg ORAL DAILY glimepiride 4 mg tab(s) (AMARYL) 4 mg ORAL q 12 H escitalopram oxalate 5 mg tab(s) (LEXAPRO) 5 mg ORAL DAILY donepezil 10 mg tab(s) (ARICEPT) 10 mg ORAL DAILY WITH BREAKFAST gabapentin 300 mg cap(s) (NEURONTIN) 300 mg ORAL q 12 H potassium chloride ER 20 mEq tab(s) (KLOR-CON) 20 mEq ORAL DAILY ondansetron orally disintegrating 4 mg tab(s) (ZOFRAN ODT) 4 mg ORAL q 6 H PRN Or ondansetron (PF) 4 mg injection (ZOFRAN) 4 mg INTRAVENOUS q 6 H PRN magnesium hydroxide 400 mg/5 mL 30 mL (MOM) 30 mL ORAL DAILY PRN aluminum-magnesium hydroxide-simethicone 200-200-20 mg/5 mL 30 mL 30 mL ORAL q 2 H PRN ferrous sulfate 325 mg tab(s) 325 mg ORAL DAILY WITH BREAKFAST ascorbic acid (vitamin C) 500 mg tab(s) (VITAMIN C) 500 mg ORAL BID w MEALS lactated ringers iv infusion 100 mL/hr INTRAVENOUS CONTINUOUS HYDROmorphone 0.4 mg injection (DILAUDID) 0.4 mg INTRAVENOUS q 3 H PRN dextrose 40 % 15 g 15 g ORAL PRN Or glucagon 1 mg injection 1 mg INTRAMUSCULAR PRN Or dextrose 10% iv bolus 12.5 g INTRAVENOUS PRN doxycycline hyclate 100 mg cap(s) (VIBRAMYCIN) 100 mg ORAL q 12 H 6a/6p acetaminophen 1,000 mg tab(s) (TYLENOL) 1,000 mg ORAL q 8 H traMADol 50-100 mg tab(s) (ULTRAM) 50-100 mg ORAL q 6 H PRN loperamide 2 mg cap(s) (IMODIUM) 2 mg ORAL TID PRN tamsulosin 0.4 mg cap(s) (FLOMAX) 0.4 mg ORAL DAILY Objective PHYSICAL EXAM: BP 136/65 Pulse 62 Temp (Src) 98 (Oral) Resp 16 Ht 6' .992 (1.85m) Wt 174 lb 2.6 oz (79.0kg) SpO2 96% BMI 22.98 kg/(m2). O2 Therapy: Room Air Physical Exam Performed GENERAL: Alert, no distress, cooperative LUNGS: Lungs clear to auscultation, Good diaphragmatic excursion CARDIAC: Normal S1 and S2; no rubs, murmurs, or gallops ABDOMEN: Soft, nontender EXTREMITIES: no edema. DATA: Diagnostic tests reviewed for today's visit: Most recent labs and imaging results. Assessment/Plan Diarrhea POA S/P Right ESSIE Post-operative state (POA: Yes) HTN HLP PE Alzheimer dementia T2DM CKD 3 Plan of care: Add tamsulosin for AUR, void trial once more ambulatory Continue imodium Pain control. Continue home medications. PT/OT eval. Disp: SNF. Medication and Non-Pharmacologic VTE Prophylaxis/Anticoagulants Anticoagulant AND Antiplatelet Medications (From admission, onward) Start Dose Route Frequency Last Action Ordered Stop 05/23/25 0900 rivaroxaban 20 mg tab(s) (XARELTO) 20 mg PO DAILY Given, 05/25 0906 05/22/25 1249 -- 05/22/25 1300 vte current anticoag therapy (mn,tx) 05/22/25 1300 pneumatic compression sleeve(s) (mn,tx) 05/22/25 1100 activity - mobilize patient ([place]) VTE Prophylaxis: VTE prophylaxis appropriate SIGNATURE: London Marcos MD PATIENT NAME: Osaes Joseph [facility] 05-25-2025 Note HNO ID: [id number] Author: DARLINE DOTSON MD Service: Orthopaedic Surgery Author Type: Physician Type: Progress Notes Filed: 05/25/2025 08:00 Note Text: SUBJECTIVE: NAEON. Pain controlled. Denies n,v,f,c. Tolerating PO intake. Family at bedside, concerned about PT yesterday, reassured that he will progress. No new issues OBJECTIVE: RLE: dressings c,d,I. SILT m,l,p,d,fdsw. Fires EHL, FHL, gastroc, and peroneals. Calves nttp. Pp2+ dp/pt ASSESSMENT: 1) 75 y/o M with R hip OA s/p RTHA with Dr. Rock PLAN: Partial weight bearing 50% RLE Posterior Hip Precautions Physical Therapy recommending SNF DVT prophylaxis: Intermittent pneumatic compression device (IPCD) and Xarelto Pain control. Hgb Stable Post op delirium: discontinue oxycodone, delirium protocol Antibiotics: doxy 100 mg BID x 2 weeks Post op fever: UA and IM consult for medical comanagement; appreciate recs Case Management for discharge planning - pending placement [facility] 05-24-2025 Note HNO ID: [id number] Author: GAIL ROCK MD Service: Care Management Author Type: Registered Nurse Type: Care Mgt Progress Note Filed: 05/25/2025 10:09 Note Text: Attestation signed by Gail Rock MD at 05/25/2025 10:09 AM Agree with above CARE MANAGEMENT PROGRESS NOTE SERVICE DATE: 05/24/2025 SERVICE TIME: 1:27 PM LOS: 1 day Physician Certification of Less Than 30 Days Skilled Needs Earliest Possible Discharge Date: 05/24/25 To the best of my knowledge, all information provided about the individual is a true and an accurate reflection of Oseas Joseph's needs. I certify that following the inpatient level of care, a post-acute nursing facility stay is required for less than 30 days related to the condition(s) for which the patient was treated during the inpatient level of care: Principal Problem: Post-operative state Active Problems: S/P total right hip arthroplasty Resolved Problems: * No resolved hospital problems. * Attending Physician: Gail Rock MD SIGNATURE: Terri Garrett RN PATIENT NAME: Oseas Joseph DATE: May 24, 2025 TIME: 1:27 PM [facility] 05-24-2025 Note HNO ID: [id number] Author: TERRI GARRETT RN Service: Care Management Author Type: Registered Nurse Type: Care Mgt Progress Note Filed: 05/24/2025 13:27 Note Text: CARE MANAGEMENT PROGRESS NOTE SERVICE DATE: 05/24/2025 SERVICE TIME: 1:25 PM LOS: 1 day Needs Prior to Discharge: Accepting Facility Spoke with the patients regarding SNF choices, she would like #1- [facility], #2- [facility], #3- [facility], #4- [facility]. Referrals placed. Inpatient order dated 05/23/25, earliest discharge could be . No precert needed. CM department will continue to follow for DC needs. SIGNATURE: Terri Garrett RN PATIENT NAME: Oseas Joseph DATE: May 24, 2025 TIME: 1:25 PM [facility] 05-24-2025 Note HNO ID: [id number] Author: DARLINE DOTSON MD Service: Orthopaedic Surgery Author Type: Physician Type: Progress Notes Filed: 05/24/2025 11:36 Note Text: SUBJECTIVE: NAEON. Pain controlled. Denies n,v,f,c. Tolerating PO intake. Family at bedside. No new issues OBJECTIVE: RLE: dressings c,d,I. SILT m,l,p,d,fdsw. Fires EHL, FHL, gastroc, and peroneals. Calves nttp. Pp2+ dp/pt ASSESSMENT: 1) 75 y/o M with R hip OA s/p RTHA with Dr. Rock PLAN: Partial weight bearing 50% RLE Posterior Hip Precautions Physical Therapy recommending SNF DVT prophylaxis: Intermittent pneumatic compression device (IPCD) and Xarelto Pain control. Post op delirium: discontinue oxycodone, delirium protocol Antibiotics: doxy 100 mg BID x 2 weeks Post op fever: UA and IM consult for medical comanagement; appreciate recs Case Management for discharge planning [facility] 05-24-2025 Note HNO ID: [id number] Author: LONDON MARCOS MD Service: General Internal Medicine Author Type: Physician Type: Progress Notes Filed: 05/24/2025 11:41 Note Text: INPATIENT PROGRESS NOTE Subjective CHIEF COMPLAINT: S/P right ESSIE INTERVAL HPI: Complaining of diarrhea, according to the he has had diarrhea before the surgery, no fever or chills, no abdominal pain, no CP or Shortness of Breath. Current Facility-Administered Medications Medication Dose Route Frequency clonazePAM 0.5 mg tab(s) (KlonoPIN) 0.5 mg ORAL DAILY acyclovir 400 mg tab(s) (ZOVIRAX) 400 mg ORAL BID rivaroxaban 20 mg tab(s) (XARELTO) 20 mg ORAL DAILY atorvastatin 10 mg tab(s) (LIPITOR) 10 mg ORAL DAILY losartan 50 mg tab(s) (COZAAR) 50 mg ORAL DAILY glimepiride 4 mg tab(s) (AMARYL) 4 mg ORAL q 12 H escitalopram oxalate 5 mg tab(s) (LEXAPRO) 5 mg ORAL DAILY donepezil 10 mg tab(s) (ARICEPT) 10 mg ORAL DAILY WITH BREAKFAST gabapentin 300 mg cap(s) (NEURONTIN) 300 mg ORAL q 12 H potassium chloride ER 20 mEq tab(s) (KLOR-CON) 20 mEq ORAL DAILY ondansetron orally disintegrating 4 mg tab(s) (ZOFRAN ODT) 4 mg ORAL q 6 H PRN Or ondansetron (PF) 4 mg injection (ZOFRAN) 4 mg INTRAVENOUS q 6 H PRN magnesium hydroxide 400 mg/5 mL 30 mL (MOM) 30 mL ORAL DAILY PRN aluminum-magnesium hydroxide-simethicone 200-200-20 mg/5 mL 30 mL 30 mL ORAL q 2 H PRN ferrous sulfate 325 mg tab(s) 325 mg ORAL DAILY WITH BREAKFAST ascorbic acid (vitamin C) 500 mg tab(s) (VITAMIN C) 500 mg ORAL BID w MEALS lactated ringers iv infusion 100 mL/hr INTRAVENOUS CONTINUOUS HYDROmorphone 0.4 mg injection (DILAUDID) 0.4 mg INTRAVENOUS q 3 H PRN dextrose 40 % 15 g 15 g ORAL PRN Or glucagon 1 mg injection 1 mg INTRAMUSCULAR PRN Or dextrose 10% iv bolus 12.5 g INTRAVENOUS PRN doxycycline hyclate 100 mg cap(s) (VIBRAMYCIN) 100 mg ORAL q 12 H 6a/6p acetaminophen 1,000 mg tab(s) (TYLENOL) 1,000 mg ORAL q 8 H traMADol 50-100 mg tab(s) (ULTRAM) 50-100 mg ORAL q 6 H PRN loperamide 2 mg cap(s) (IMODIUM) 2 mg ORAL TID PRN Objective PHYSICAL EXAM: BP 130/62 Pulse 67 Temp (Src) 98.9 (Oral) Resp 16 Ht 6' .992 (1.85m) Wt 174 lb 2.6 oz (79.0kg) SpO2 97% BMI 22.98 kg/(m2). O2 Therapy: Room Air Physical Exam Performed GENERAL: Alert, no distress, cooperative LUNGS: Lungs clear to auscultation, Good diaphragmatic excursion CARDIAC: Normal S1 and S2; no rubs, murmurs, or gallops ABDOMEN: Soft, nontender EXTREMITIES: no edema. DATA: Diagnostic tests reviewed for today's visit: Most recent labs and imaging results. Assessment/Plan Diarrhea POA S/P Right ESSIE Post-operative state (POA: Yes) HTN HLP PE Alzheimer dementia T2DM CKD 3 Plan of care: neg C-Diff Add imodium Continue with IVF. Pain control. Continue home medications. PT/OT eval. Discharge plan. On Xarelto. Medication and Non-Pharmacologic VTE Prophylaxis/Anticoagulants Anticoagulant AND Antiplatelet Medications (From admission, onward) Start Dose Route Frequency Last Action Ordered Stop 05/23/25 0900 rivaroxaban 20 mg tab(s) (XARELTO) 20 mg PO DAILY Given, 05/24 0858 05/22/25 1249 -- 05/22/25 1300 vte current anticoag therapy ([place], [place]) 05/22/25 1300 pneumatic compression sleeve(s) ([place]) 05/22/25 1100 activity - mobilize patient ([place]) VTE Prophylaxis: VTE prophylaxis appropriate SIGNATURE: London Marcos MD PATIENT NAME: Oseas Joseph [facility] 05-23-2025 Note HNO ID: [id number] Author: HEATHER MICHEL MD Service: General Internal Medicine Author Type: Physician Type: Progress Notes Filed: 05/23/2025 12:20 Note Text: INPATIENT PROGRESS NOTE Subjective CHIEF COMPLAINT: S/P right ESSIE INTERVAL HPI: Complaining of diarrhea, according to the he has had diarrhea before the surgery, no fever or chills, no abdominal pain, no CP or Shortness of Breath. Current Facility-Administered Medications Medication Dose Route Frequency clonazePAM 0.5 mg tab(s) (KlonoPIN) 0.5 mg ORAL DAILY acyclovir 400 mg tab(s) (ZOVIRAX) 400 mg ORAL BID rivaroxaban 20 mg tab(s) (XARELTO) 20 mg ORAL DAILY atorvastatin 10 mg tab(s) (LIPITOR) 10 mg ORAL DAILY losartan 50 mg tab(s) (COZAAR) 50 mg ORAL DAILY glimepiride 4 mg tab(s) (AMARYL) 4 mg ORAL q 12 H escitalopram oxalate 5 mg tab(s) (LEXAPRO) 5 mg ORAL DAILY donepezil 10 mg tab(s) (ARICEPT) 10 mg ORAL DAILY WITH BREAKFAST gabapentin 300 mg cap(s) (NEURONTIN) 300 mg ORAL q 12 H potassium chloride ER 20 mEq tab(s) (KLOR-CON) 20 mEq ORAL DAILY ondansetron orally disintegrating 4 mg tab(s) (ZOFRAN ODT) 4 mg ORAL q 6 H PRN Or ondansetron (PF) 4 mg injection (ZOFRAN) 4 mg INTRAVENOUS q 6 H PRN magnesium hydroxide 400 mg/5 mL 30 mL (MOM) 30 mL ORAL DAILY PRN aluminum-magnesium hydroxide-simethicone 200-200-20 mg/5 mL 30 mL 30 mL ORAL q 2 H PRN ferrous sulfate 325 mg tab(s) 325 mg ORAL DAILY WITH BREAKFAST ascorbic acid (vitamin C) 500 mg tab(s) (VITAMIN C) 500 mg ORAL BID w MEALS lactated ringers iv infusion 100 mL/hr INTRAVENOUS CONTINUOUS HYDROmorphone 0.4 mg injection (DILAUDID) 0.4 mg INTRAVENOUS q 3 H PRN dextrose 40 % 15 g 15 g ORAL PRN Or glucagon 1 mg injection 1 mg INTRAMUSCULAR PRN Or dextrose 10% iv bolus 12.5 g INTRAVENOUS PRN doxycycline hyclate 100 mg cap(s) (VIBRAMYCIN) 100 mg ORAL q 12 H 6a/6p acetaminophen 1,000 mg tab(s) (TYLENOL) 1,000 mg ORAL q 8 H traMADol 50-100 mg tab(s) (ULTRAM) 50-100 mg ORAL q 6 H PRN Objective PHYSICAL EXAM: BP 136/66 Pulse 74 Temp (Src) 101.4[RN notified[ (Oral) Resp 18 Ht 6' .992 (1.85m) Wt 174 lb 2.6 oz (79.0kg) SpO2 97% BMI 22.98 kg/(m2). O2 Therapy: Room Air Physical Exam Performed GENERAL: Alert, no distress, cooperative LUNGS: Lungs clear to auscultation, Good diaphragmatic excursion CARDIAC: Normal S1 and S2; no rubs, murmurs, or gallops ABDOMEN: Soft, nontender EXTREMITIES: no edema. DATA: Diagnostic tests reviewed for today's visit: Most recent labs and imaging results. Assessment/Plan Diarrhea POA S/P Right ESSIE Post-operative state (POA: Yes) HTN HLP PE Alzheimer dementia T2DM CKD 3 Plan of care: Hold all laxatives. Check C-Diff. Continue with IVF. Pain control. Continue home medications. PT/OT eval. Discharge plan. On Xarelto. Medication and Non-Pharmacologic VTE Prophylaxis/Anticoagulants Anticoagulant AND Antiplatelet Medications (From admission, onward) Start Dose Route Frequency Last Action Ordered Stop 05/23/25 0900 rivaroxaban 20 mg tab(s) (XARELTO) 20 mg PO DAILY Given, 05/23 0828 05/22/25 1249 -- 05/22/25 1300 vte current anticoag therapy ([place], [place]) 05/22/25 1300 pneumatic compression sleeve(s) ([place]) 05/22/25 1100 activity - mobilize patient ([place] VTE Prophylaxis: VTE prophylaxis appropriate SIGNATURE: Heather Michel MD PATIENT NAME: Oseas Joseph DATE: May 23, 2025 TIME: 12:16 PM [facility] 05-23-2025 Note HNO ID: [id number] Author: MARISABEL FALL RN Service: Care Management Author Type: Registered Nurse Type: Care Mgt Initial Assessment Filed: 05/23/2025 11:01 Note Text: CARE MANAGEMENT: ASSESSMENT AND DISCHARGE PLAN SERVICE DATE: May 23, 2025 SERVICE TIME: 10:52 AM PCP: Connie Lugo MD Primary Contact: Extended Emergency Contact Information Primary Emergency Contact: LOUISE JOSEPH Address: [address] [place] [id number] [facility] Mobile Relation: Spouse Secondary Emergency Contact: SOLANGE CARLSON Address: [address] [place] [id number] [place] [address] Mobile Relation: Daughter Admission Status: Inpatient Insurance Provider: MEDICARE A AND B Discharge Planning requested by: Per Department Practice Potential Transition Plans Diabetic Education, Retirement Facility/Intermediate Care Facility Advance Directives Current Advance Directive: Health Care Power of Inspector Water Pollution Control, Living Will In Chart: Yes Up To Date and Valid: Yes Current Living Arrangements and Support Lives with: Spouse/significant other Type of Residence: Private Residence (House) Does the patient have to climb stairs at home?: Yes, stairs outside the home Support: Children, Spouse/significant other How do you manage to accomplish the following: Needs Assistance: Ambulation, Bathe/Shower, Dress, Going to the bathroom Dependent: Meals/Meal Prep, Medication Management, Transportation to appointments/community Current Services/Equipment Current Post-Acute Service(s): None Discharge Planning Patient Goal(s): Be able to go home, General wellness [place] of Choice Explained: [place] of Choice Given: Yes Level of Care Discussed: Retirement Facility Are you interested in bedside delivery of your medications? No Discharge Planning Participant(s): Children, Spouse/significant other Patient/Family Comments: Caregiver Assessment: Caregiver is ready, willing and able to meet the patient's needs as recommended by the inter-professional team: Yes Name of Caregiver: Spouse Transport at Discharge: Transportation Arrangements: Ambulance Needs Prior to Discharge: Needs Prior to Discharge: To Be Determined, Facility or Agency Choices, OT/PT Evaluation Post-Acute Discharge Plan: EMR reviewed. Patient is 75 years old s/p right total hip arthroplasty. CM met with family to complete assessment. Patient is from home with spouse who assists patient has needed with ADL's, medication management, and transportation needs. PT recommending SNF. OT pending. FOC offered for SNF. Admit date 05/23/25. No precert needed. CM to follow up for choices. Anticipate need for medical transport on discharge. CM will follow. SIGNATURE: Marisabel Fall RN PATIENT NAME: Oseas Joseph DATE: May 23, 2025 TIME: 10:52 AM [facility] 05-23-2025 Note HNO ID: [id number] Author: LONDON MARCOS MD Service: Care Management Author Type: Registered Nurse Type: Care Mgt Progress Note Filed: 05/24/2025 07:19 Note Text: Attestation signed by London Marcos MD at 05/24/2025 7:19 AM London Marcos MD CARE MANAGEMENT PROGRESS NOTE SERVICE DATE: 05/23/2025 SERVICE TIME: 10:49 AM LOS: 0 days Physician Certification of Less Than 30 Days Skilled Needs Earliest Possible Discharge Date: 05/23/25 To the best of my knowledge, all information provided about the individual is a true and an accurate reflection of Oseas Joseph's needs. I certify that following the inpatient level of care, a post-acute nursing facility stay is required for less than 30 days related to the condition(s) for which the patient was treated during the inpatient level of care: Principal Problem: Post-operative state Resolved Problems: * No resolved hospital problems. * Attending Physician: Gail Rock MD SIGNATURE: Marisabel Fall RN PATIENT NAME: Oseas Joseph DATE: May 23, 2025 TIME: 10:49 AM [facility] 05-23-2025 Note HNO ID: [id number] Author: AZAEL MARTINEZ PA-C Service: Orthopaedic Surgery Author Type: Physician Spray Pilot Type: Progress Notes Filed: 05/23/2025 13:05 Note Text: POSTOP NOTE ORTHOPAEDIC SURGERY SERVICE DATE: 05/23/2025 SERVICE TIME: 8:00 AM IMPRESSION/PLAN: S/P Procedure(s) (LRB): ROBOTIC ASSISTED TOTAL HIP ARTHROPLASTY (Right) on 05/22/2025 Partial weight bearing 50% RLE Posterior Hip Precautions Physical Therapy recommending SNF DVT prophylaxis: Intermittent pneumatic compression device (IPCD) and Xarelto Pain control. Post op delirium: discontinue oxycodone, delirium protocol Antibiotics: doxy 100 mg BID x 2 weeks Post op fever: UA and IM consult for medical comanagement; appreciate recs Case Management for discharge planning Plan of care discussed with: Provider, RN, Patient. Patient Active Hospital Problem List: Post-operative state Date Noted: 05/23/2025 POST OPERATIVE COMPLICATIONS: Complicated by uneventful/none SUBJECTIVE: Fever 101.4F this morning. Patient's spouse states he is more confused from his baseline. Well Controlled hip pain. Denies incisional pain. OBJECTIVE: VITAL SIGNS: BP 136/66 Pulse 74 Temp (!) 38.6 ?C (101.4 ?F) (Oral) Resp 18 Ht 185.4 cm (6' 0.99) Wt 79 kg (174 lb 2.6 oz) SpO2 97% BMI 22.98 kg/m? INTAKE AND OUTPUT: Intake/Output Summary (Last 24 hours) at 05/23/2025 1256 Last data filed at 05/23/2025 1222 Gross per 24 hour Intake 270 ml Output 1300 ml Net -1030 ml LABS: Hemoglobin Date Value Ref Range Status 05/22/2025 10.3 (L) 13.0 - 17.0 g/dL Final 05/22/2025 10.4 (L) 13.0 - 17.0 g/dL Final Hematocrit Date Value Ref Range Status 05/22/2025 32.3 (L) 39.0 - 51.0 % Final 05/01/2025 36.1 (L) 39.0 - 51.0 % Final Platelet Count Date Value Ref Range Status 05/01/2025 252 150 - 400 k/uL Final 04/03/2025 179 150 - 400 k/uL Final WBC Date Value Ref Range Status 05/01/2025 5.10 3.70 - 11.00 k/uL Final 04/03/2025 3.24 (L) 3.70 - 11.00 k/uL Final Creatinine Date Value Ref Range Status 05/23/2025 1.24 (H) 0.73 - 1.22 mg/dL Final 05/01/2025 1.35 (H) 0.73 - 1.22 mg/dL Final Potassium Date Value Ref Range Status 05/23/2025 4.3 3.7 - 5.1 mmol/L Final 05/01/2025 3.2 (L) 3.7 - 5.1 mmol/L Final VTE Prophylaxis: Active VTE Risk Category Order: 05/22/25 1300 VTE RISK CATEGORY: SURGICAL HIGH RIS[place] ([place] Active VTE Medication Orders: Anticoagulant AND Antiplatelet Medications (From admission, onward) Start Dose Route Frequency Last Action Ordered Stop 05/23/25 0900 rivaroxaban 20 mg tab(s) (XARELTO) 20 mg PO DAILY Given, 05/23 0805/22/25 1249 -- Active VTE Prophylaxis Orders: 05/22/25 1300 VTE CURRENT ANTICOAG THERAPY ([place], [place]) 05/22/25 1300 PNEUMATIC COMPRESSION SLEEVE(S) ([place]) 05/22/25 1100 ACTIVITY - MOBILIZE PATIENT ([place]) PHYSICAL EXAMINATION: Right Lower Extremity: Dorsalis pedis pulses palpable. Posterior tibial pulses palpable. Motor intact DF/PF/EHL Sensory intact to light touch L1-S1. Dressing clean, dry, and intact. Surgical site no drainage and Silverlon intact. DATA: Diagnostic tests reviewed for today's visit: Most recent labs and imaging results. SIGNATURE: Azael Martinez PA-C PATIENT NAME: Oseas Joseph DATE: May 23, 2025 TIME: 12:56 PM The patient has undergone major orthopedic surgery and participating in therapy. Pain cannot be managed within an average of 30 MED per day. Patient requiring average of higher than 30 MED per day in order to control pain and allow patient to actively and safely participate in therapy and this is the lowest dose consistent with patient's medical condition. Non-narcotic medication options have been discussed. In addition, the patient has been advised of the benefits and risks of the opioid (including the potential for addiction). Patient demonstrated understanding of risks versus benefits. [facility] 05-22-2025 Note HNO ID: [id number] Author: TESFAYE LAWSON PA-C Service: General Surgery Author Type: Physician Spray Pilot Type: Progress Notes Filed: 05/22/2025 18:04 Note Text: POSTOP PROGRESS NOTE SERVICE DATE: 05/22/2025 SERVICE TIME: 1730 PM Subjective CHIEF COMPLAINT: Right hip osteoarthritis INTERVAL HISTORY OF PRESENT ILLNESS: This is a 75 year old male postop right total hip arthroplasty. Patient rates their pain 4/10 and states it is well controlled at this time. PT evaluated: Yes Objective PHYSICAL EXAM: BP 147/71 Pulse 58 Temp (Src) 97.2 (Axillary) Resp 16 Ht 6' .992 (1.85m) Wt 174 lb 2.6 oz (79.0kg) SpO2 98% BMI 22.98 kg/(m2). O2 Therapy: Room Air Physical Exam: Right Leg: Sensation intact to light touch. Patient is able to dorsiflex and plantarflex the right ankle. Patient is able to wiggle toes. 2+ PT and DP. Capillary refill <2s. Silverlon dressings clean, dry, intact. Hip abduction pillow in place. Assessment AND Plan POSTOP PLANS: As indicated per orthopedic and medicine services. Proceed with Surgeon's post operative plan. Advised patient to reach out to nurse if issues occur. SIGNATURE: Tesfaye Lawson PA-C PATIENT NAME: Oseas Joseph DATE: May 22, 2025 TIME: 6:02 PM [facility] 05-22-2025 Instructions Kemi Kennedy LISW - 05/22/2025 12:14 PM EDT Carlo Walsh and Louise, It was great seeing you again! LEONOR Sequeira, is who will be taking over in my absence. Please feel free to schedule with her by calling [phone]. I attached a regarding communication that I hope you find helpful. Let us know if you have any questions! When there is a diagnosis of dementia, no matter the type, we encourage families to educate themselves, learn communication tips, and learn ways to adjust expectations over time. There are many resources available online. Three excellent resources are: The Alzheimer's Association (web site: alz.org) Help Line available 24 hours a day, 7 days per week: 902.833.9973. Call Help Line to learn of local options for support groups and to register. Training.Alz.org for educational webinars. Family Caregiver [place] (web site: Caregiver.org) A [employer]- a secure online solution for quality information, support, and resources for family caregivers. Contact: Alzheimers.gov Find Alzheimer disease and related dementias information, resources, research and more [facility] Caregiver Support Group When?: Last of the month 2-3:30 pm Where: Virtual The [facility] caregiver support group is a space for those caring for a loved on with dementia to connect, share experiences and find emotional support. Meetings will feature guest speakers presenting on educational topics relevant to dementia and caregiving. Meetings facilitated by [facility] team members. To RSVP and receive the link email : [facility] [place] [address] [address] Monday of the month from 1:00 PM - 2:00 PM Please feel free to call or schedule a follow up visit with any questions or concerns. [facility] Office: [phone] [phone] documented in this encounter [facility] 05-22-2025 Note HNO ID: [id number] Author: ANDRY LAU APRN.BUSINESS TEAM LEADER Service: Anesthesiology Author Type: Nurse Performance Architect Type: Anesthesia Procedure Notes Filed: 05/22/2025 07:51 Note Text: ANESTHESIOLOGY PROCEDURE NOTE Airway General Information Procedure Start Time/Medication Administration: 05/22/2025 7:36 AM Procedure End Time: 05/22/2025 7:39 AM Patient location during procedure: OR Timeout Performed Pre-procedure: timeout performed Consent Obtained: Yes Patient identity confirmed: arm band and patient Staffing BUSINESS TEAM LEADER: Andry Lau APRN.BUSINESS TEAM LEADER Performed by: VALERIE Indications and Patient Condition Indications for airway management: anesthesia Preoxygenated: yes anesthesia circuit Patient position: sniffing Method: asleep Cricoid Pressure: No Manual In-Line Stabilization: No Difficult Mask: No Final Airway Details Final airway type: endotracheal airway Final Endotracheal Airway: ETT Cuffed: yes Successful intubation technique: direct laryngoscopy Endotracheal tube insertion site: oral Blade: Kb Blade size: #4 ETT size (mm): 7.5 Measured from: teeth Measurement (cm): 22 Placement verified by: chest auscultation and capnometry Cormack-Lehane Classification: grade I - full view of glottis Number of attempts at approach: 1 Failed airway: no Unrecognized esophageal intubation: no Airway not difficult SIGNATURE: Andry Lau APRN.CRNA PATIENT NAME: Oseas Joseph DATE: May 22, 2025 TIME: 7:51 AM CSN: [id number] [facility] 05-21-2025 History of Present illness Narrative Images from the original note were not included. SOCIAL WORK NOTE I have communicated my name and active licensure. The patient's identity and physical location were verified at the time of this visit. Patient consented to the video assessment. Oseas Joseph [address] [facility] [address] INFORMATION/REFERRAL: Referral Source: Gilbert Ramirez APRN.PATTERNMAKER APPRENTICE WOOD Pt information: Oseas Joseph is a 75 year old year old male referred to [facility] work for the following reason(s): community services/resources Pt present for appointment: Yes Additional Participants: spouse, Louise PROBLEMS/NEEDS IDENTIFIED: Continue to assess/collaborate Education Information Long-term care plan DISCUSSION: Follow-up visit with patient and spouse to address adjustment to diagnosis. Patient is scheduled for a hip replacement tomorrow. Patient reports his primary concern at this time is his hip surgery and getting pain under control- spouse reports feeling ready to learn more about AD and LBD. Discussed resources for education and support. Engaged in supportive counseling for challenges with communication changes and addressing irritability. Spouse was tearful when sharing her experience and reports she is unsure of her role and how to best support patient. Validated both patient and spouse's experiences and worked through challenging scenarios. Provided tips for how to address patient's forgetfulness and irritability. Plan to follow-up in 3 months. INTERVENTION/PLAN: -Reviewed BAG TESTER supportive role/availability as member of [facility] care team. -Supportive counseling offered to address caregiver stress, adjustment to caregiver role, caregiver guilt. Discussed the process of identifying a new normal since dementia diagnosis. -Reviewed supportive services offered through The Alzheimer's Association, [facility] [place] and Alzheimers.gov. Discussed benefits of caregiver support groups. Provided information on local support groups currently offered virtually. Education provided on the importance of self-care and respite. -Engaged in education for new diagnosis and emotional support for navigating next steps. Educational resources provided via . IMPRESSION: Pleasant 75 year old year old patient. Pt and family appear able and motivated to follow up on recommendations as discussed. Diagnosis of Mild Late Onset Alzheimer's Disease and Mild Lewy Body Dementia consistent with medical provider evaluation. Caregiver stress is associated with increased caregiver involvement. BAG TESTER will remain available to address any questions/concerns. Contact information was provided. I spent a total of 40 minutes with the patient. ISAC Mcgrath [facility] documented in this encounter [facility] 05-12-2025 Telephone encounter Note [employer] auth #[id number]. Betsy Henriquez LPN [facility] 05-12-2025 Miscellaneous Notes [employer] auth #[id number]. Betsy Henriquez LPN documented in this encounter [facility] 05-08-2025 Telephone encounter Note Labs moved to 05/29. Dr. Mccain schedule is full on 05/29. [facility] Work Phone: 05-08-2025 Miscellaneous Notes Labs moved to 05/29. Dr. Mccain schedule is full on 05/29. documented in this encounter [facility] 05-01-2025 History of Present illness Narrative IRB # [id number], [facility]# SWOG [id number] study entitled Phase III Study of Daratumumab/rHuPH20 (NSC- [id number]) + Lenalidomide or Lenalidomide as Post-Autologous Stem Cell Transplant Maintenance Therapy in Patients with Multiple Myeloma (MM) Using Minimal Residual Disease to Direct Therapy Duration (DRAMMATIC Study). Registration Information: Informed Consent Signed 01/03/2023 Registered Step 1 01/06/2023 Informed Consent Signed Step 2 07/22/2023 Randomization Date: 08/18/2023 Addendum 11/16/2023 Treatment Arm: TAC- 1 Lenalidomide Study ID [id number] Consent to optional samples Yes Study Status Active Patient was here for Cycle 23 and saw Bright Thao APRN PATTERNMAKER APPRENTICE WOOD.. All of the patients daughter and his 's questions were answered at this time in regards to right leg issues returning - surgery hold and follow up, memory issues, and labs. Patient doing much better overall per family and patient, but continued memory issues. Treatment Plan: Treatment Previous Cycle Cycle Current Start Date Frequency End date Lenalidomide Cycle 1 Day 1 08/24/2023 Dose Reduced 05/12/2024 5mg Cycle 22 04/03/2025 - 04/30/2025 100% Cycle 23 05/01/2025 -05/28/2025 10/19/2023 Daily, Cycle every 28 days Clinical Trial Specific Testing Test Dates Completed Due Date Bone Marrow Biopsy CTD 07/24/2023 Baseline Step 2 [x] 07/18/2024 12 months post Step 2 [x] 07/24/2025 24 months post Step 2 [] 07/24/2026 36 months post Step 2 [] 07/24/2027 48 months post Step 2 [] QOLs PRO-CTCAE 08/17/2023 (Baseline) [x] 08/24/2023 (Cycle 1) [x] 09/21/2023 (Cycle 2) [x] 10/19/2023 (Cycle 3) [x] 11/16/2023 (Cycle 4) [x] 12/14/2023 (Cycle 5) [x] 01/11/2024 (Cycle 6) [x] 02/08/2024 (Cycle 7) [x] 03/07/2024 (Cycle 8) [x] 04/04/2024 (Cycle 9) [x] 05/02/2024 (Cycle 10) [x] 05/29/2024 (Cycle 11) [x] 06/27/2024 (Cycle 12) [x] 07/25/2024 (Cycle 13) and annual PROMIS-29 and Intolerance [x] 08/22/2024 (Cycle 14) [x] 09/18/2024 (Cycle 15) [x] 10/17/2024 (Cycle 16) [x] 11/14/2024 (Cycle 17) [x] 12/12/2024 (Cycle 18) [x] 01/09/2025 (Cycle 19) [x] 02/06/2025 (Cycle 20) [x] 03/06/2025 (Cycle 21) [x] 04/03/2025 (Cycle 22) [x] 05/01/2025 (Cycle 23) [x] Day 1 of every cycle Baseline Weight (08/24/2023 date) 80.7 kg Current Weight 79.4 kg Creatinine Clearance 54.3 ml/min ECOG per ECOG- 1 Bone Marrow - Plasma Cell % Free Light Chains M Protein Date Size (mm) Date [place] Lambda * IGG Date Serum Urine Diagnosis 08/24/2022 20% Diagnosis 10/26/2022 11.7 43.5 Diagnosis 10/26/2022 1.12 M protein present Baseline 07/30/2023 Less than 5%* Baseline 08/07/2023 4.7 2.5 Enrollment 07/31/2023 Cycle 1 0.22 0.00 08/24/2023 Cycle 1 4.1* 2.4* 08/24/2023 Cycle 1 0.28 0.00 09/21/2023 Cycle 2 11.7 8.7 09/21/2023 Cycle 2 0.17 0.01 10/19/2023 Cycle 3 15.5 10.5 10/19/2023 Cycle 3 0.16 0.01 11/16/2023 Cycle 4 17.4 21.4 11/16/2023 Cycle 4 0.20 0.00 12/14/2023 Cycle 5 19.4 23.1 12/14/2023 Cycle 5 0.00* 0.00 01/11/2024 Cycle 6 25.8 19.4 01/11/2024 Cycle 6 0.15 0.00 02/08/2024 Cycle 7 24.2 20.4 02/08/2024 Cycle 7 0.00* 0.00 03/07/2024 Cycle 8 22.0 15.3 03/07/2024 Cycle 8 0.23 0.0 04/04/2024 Cycle 9 22.4 17.5 04/04/2024 Cycle 9 0.24 0.00 05/02/2024 Cycle 10 23.2 16.5 05/02/2024 Cycle 10 0.00* 0.00 05/29/2024 Cycle 11 23.7 15.3 05/29/2024 Cycle 11 0.00* 0.00 06/27/2024 Cycle 12 27.7 19.3 06/27/2024 Cycle 12 0.25 0.00 07/25/2024 Cycle 13 37.8 21.5 07/25/2024 Cycle 13 0.19 0.00 08/22/2024 Cycle 14 25.2 15.7 08/22/2024 Cycle 14 0.25 0.00 09/18/2024 Cycle 15 20.5 13.2 09/18/2024 Cycle 15 0.23 0.00 10/17/2024 Cycle 16 22.8 15.2 10/17/2024 Cycle 16 0.33 0.00 11/14/2024 Cycle 17 21.6 15.4 11/14/2024 Cycle 17 0.20 0.00 12/12/2024 Cycle 18 28.0 18.3 12/12/2024 Cycle 18 0.15 0.00 01/09/2025 Cycle 19 24.7 16.7 01/09/2025 Cycle 19 0.00* 0.00 02/06/2025 Cycle 20 23.9 15.1 02/06/2025 Cycle 20 0.00* 0.00 03/06/2025 Cycle 21 31.0 20.6 03/06/2025 Cycle 21 0.18 0.00 04/03/2025 Cycle 22 52.7 33.5 04/03/2025 Cycle 22 0.00* 0.00 05/01/2025 Cycle 23 Pending Pending 05/01/2025 Cycle 23 Pending Pending Lowest/Jacque = * 05/01/25 Weight 79.4 kg (175 lb) Height 182.9 cm (6') BSA 2.01 BMI 23.73 Temp 36.2 C (97.2 F) Pulse 57 ! Resp 12 BP 122/56 SpO2 95 % Note: Showing the most recent values for these dates. There are additional values that can be seen in Synopsis. !: Data is abnormal Drug Accountability/Education - Completed on 05/01/2025. Patient given Cycle 23 diary. Patient did return Cycle 22. Use of the study medication diary and dosing instructions were reviewed with the patient. Patient verbalizes understanding of dosing of Revlimid: Capsules should be taken whole, with water, once daily (patient takes at HS). If a dose is missed, and it has been less than 12 hours since the preceding dose, the patient should take lenalidomide as soon as the patient remembers. If it has been more than 12 hours, the patient should skip the missed dose. Patient took / pills for the cycle - determining 100% compliance Patient receives drug from a private pharmacy. Lenalidomide Education and Counseling completed. Patient counseled on potential exposure to lenalidomide by Bright, engage in abstinence or use a condom when engaging in sexual contact with WOCBP, notify study doctor if female partner becomes , never share drug with anyone else, not to donate blood, semen, or sperm while taking drug and for 28 days after. Concomitant medications reviewed per protocol: Yes Patient reported changes to medication list: No changes since last visit. Current medications: Current use of anticoagulants: YES (see medications below if applicable) Anticoagulants: Eliquis 5 mg Current use of herbal preparations or medications: No Prophylactic shingles medication: Acyclovir 400 mg Current Outpatient Medications Medication Sig Start/Stop Use acyclovir (ZOVIRAX) 400 mg tablet Take 1 tablet by mouth twice daily. 05/01/2023 Prophylactic shingles ondansetron (ZOFRAN) 8 mg tablet Take 1 tablet by mouth every 8 hours as needed for nausea/vomiting. 10/26/2022 PRN Nausea clonazePAM (KLONOPIN) 0.5 mg tablet Take 0.5 mg by mouth once daily. 07/29/2023 Anxiety glimepiride (AMARYL) 4 mg tablet Take 2 capsules by mouth in AM & 1 capsule in PM. >5 years Type 2 amLODIPine (NORVASC) 5 mg tablet Take 5 mg by mouth once daily. 02/10/2021 Hypertension atorvastatin (LIPITOR) 10 mg tablet Take 10 mg by mouth once daily. 02/10/2021 Cholesterol losartan (COZAAR) 50 mg tablet Take 50 mg by mouth once daily. 02/10/2021 Hypertension Loperamide (Imodium Oral) Take 2 tablet by mouth as needed >5 years Diarrhea Sildenafil (Viagra) 50 mg tablet Take 50 mg by mouth as needed. >10 years ED Eliquis 5 mg tablet Take 1 tablet by mouth twice daily 03/23/2023 Preventative -blood thinner Melatonin 5 mg Take 1 tablet at bedtime 03/23/2023 Insomnia Revlimid 10 mg Take 1 capsule daily in the morning 08/24/2023 Stopped: 05/12/2024 MM treatment Revlimid 5 mg Take 1 capsule daily in the morning 05/12/2024 MM treatment Linzess 72 mcg Take 1 capsule for constipation symptoms once a day as needed for constipation 12/31/2023 Constipation Azithromycin (ZITHROMAX) 500 mg tablet Take 1 tablet by mouth daily 02/02/2024 Completed 02/05/2024 Antibiotic Donepezil (ARICEPT) 5mg Increased to 10mg Take 1 tablet by mouth daily 01/23/2025 Increased:02/24/2025 to 10mg Alzheimer Amoxicillin K Clav 875-125mg Take 2 times daily Start:02/11/2025 Stopped:02/22/2025 Lung Infection Prednisone Taper 21 tablets - 6 days at 4mg - start at 20mg and go to 4mg Take 6,5, 4, 3,2,1 pill daily for 6 days Start:04/19/2025 Stopped:04/24/2025 Steroid No current facility-administered medications for this visit. Medical History: PAST MEDICAL HISTORY Diagnosis Date Arthritis Treated with medication Chronic diarrhea Resolved and now constipation Diabetes mellitus (HCC) Treated with medication Essential hypertension Treated with medication Mixed hyperlipidemia Treated with medication Alzheimer 01/30/2025 PAST MEDICAL HISTORY Diagnosis Date Arthritis Treated with medication Chronic diarrhea Resolved Malignant melanoma (HCC) On back removed - precancerous and 06/2022 non cancerous Mixed hyperlipidemia Treated with medication Multiple myeloma not having achieved remission (HCC) Treated with medication Primary hypertension Treated with medication Pulmonary embolism (HCC) Treated with medication Right bundle branch block Treated with medication Type 2 diabetes mellitus, without long-term current use of insulin (HCC) Treated with medication Surgical History: PAST SURGICAL HISTORY Procedure Laterality Date REPAIR INCISIONAL HERNIA,REDUCIBLE Resolved 8th grade SKIN BX, 1 LESION 06/2022 non cancerous Baseline Toxicities per CTCAE v. 5: All predate therapy, are chronic conditions and will not be actively followed unless they worsen during the clinical trial. Hyperglycemia; Grade 1: Start Date: >5 years PRIOR TO STUDY Drugs to Treat: Glimepiride Action Required: None Outcome: Ongoing. (Chronic) Diarrhea; Grade 1: INTERMITTENT Start Date: >5 years PRIOR TO STUDY Drugs to Treat: Imodium Action Required: None Outcome: Ongoing. Anemia; Grade 1: Start Date: Intermittent PRIOR TO STUDY 07/24/2023 Drugs to Treat: None. Action Required: None Outcome: See Below. Aspartate aminotransferase decreased; Grade 1: Start Date: Intermittent PRIOR TO STUDY Drugs to Treat: None. Action Required: None Outcome: Ongoing Alanine aminotransferase decreased; Grade 1: Start Date: Intermittent PRIOR TO STUDY Drugs to Treat: None. Action Required: None Outcome: Ongoing Insomnia; Grade 1: Start Date: Intermittent PRIOR TO STUDY 07/21/2023 Drugs to Treat: None. Action Required: None Outcome: Ongoing. Lymphocyte Count Decreased; Grade 1: Start Date: Intermittent PRIOR TO STUDY- Possibly related to Revlimid and Drugs to Treat: None. Action Required: None Outcome: Toxicities per CTCAE v. 5: White Blood Cell Count Decreased; Grade 1: Start Date: 10/17/2024. Related to Lenalidomide and cold. Drugs to Treat: None. Action Required: None Outcome: ONGOING Memory Impairment; Alzheimer; Grade 1: Start Date: 02/08/2024. Unrelated to Lenalidomide. Drugs to Treat: None. Action Required: None Outcome: Ongoing Creatinine Increased: Grade 1: Start Date: 11/14/2024. Possibly related to Lenalidomide but more due to dehydration. Drugs to Treat: None. Action Required: Zometa held and increase fluid intake Outcome: Ongoing Weight Loss: Grade 1: Start Date: 08/2023. Unrelated to study drug - due to transplant. Drugs to Treat: None. Action Required: None Outcome: Ongoing Sinus Bradycardia: Grade 1. Start Date: 03/06/2025. RESOLVED:04/07/2025 ONGOING 05/01/2025 Unrelated to Lenalidomide - Related to Donepezil. Drugs to Treat: None. Action Required: None. Outcome: ONGOING Lymphocyte Count Decreased; Grade 2: Start Date: Intermittent PRIOR TO STUDY- Possibly related to Revlimid - Increased to Grade 2 04/07/2025 and Drugs to Treat: None. Action Required: None Outcome: Hypoalbuminemia; Grade 1: Start Date: 04/03/2025 Possibly related to Revlimid or recent illness. Drugs to Treat: None. Action Required: None Outcome: Ongoing Aspartate Transferase Decreased; Grade 1: Start Date: 05/01/2025 Possibly related to Revlimid or recent illness. Drugs to Treat: None. Action Required: None Outcome: Ongoing Hypokalemia; Grade 1: Start Date: 05/01/2025 Possibly related to Revlimid or recent illness. Drugs to Treat: Potassium Action Required: None Outcome: Ongoing Patient turned in a 24 hour urine: Yes Chart sent the overseeing physician to review CTCAE toxicities. Patient knows to RTC 05/29/2025 for C24. Patient knows to call in the interim for any questions or concerns. Patient has contact information for Uma Gill Research Nurse and Dr. Mccain, along with the office number. All other abnormal lab values are deemed not clinically significant and therefor will not be graded. Treating provider has reviewed and agrees with Adverse Events above. Chart being routed to Bright Thao APRN, CNP Patient meets all Criteria for Study Participation: Yes REID Bynum, RN Clinical Research Nurse [phone] documented in this encounter [facility] 05-01-2025 Instructions Rosa Elena Coats APRN.EVELIN - 05/01/2025 12:44 PM EDT Images from the original note were not included. [facility] PATIENT PREOPERATIVE INSTRUCTIONS Gail Rock MD has scheduled you for your procedure at this surgery center: [facility]: [phone] -- [address] [address]. Please read below carefully for your personalized instructions. Arrival Time for Surgery: - The Surgery Center or hospital where you are having surgery will call the afternoon before surgery (or Monday for Monday surgery) with a scheduled arrival time. - If you have not heard by 4 pm, please contact the surgery center above. Dietary Restrictions: - No solid food after midnight. - You may have 12 ounces of clear liquids (water, clear juices such as apple juice or gatorade, carbonated beverages, clear tea, black coffee, jello) until 2 hours before scheduled arrival at facility. - Do not drink any alcohol after midnight the night before your surgery. - no milk/creamer or other additives like honey - no pulp juices Medications: Pre-Surgery Med Instructions Medication Instructions potassium chloride ER (KLOR-CON) 20 mEq tablet Do not take the day of surgery gabapentin (NEURONTIN) 300 mg capsule If you normally take this medication in the morning, take the morning of surgery. escitalopram oxalate (LEXAPRO) 5 mg tablet If you normally take this medication in the morning, take the morning of surgery. REVLIMID 5 mg capsule Do not take the day of surgery rivaroxaban (XARELTO) 20 mg tablet Hold 3 days before surgery. Last dose 05/18/25. donepezil (ARICEPT) 10 mg tablet If you normally take this medication in the morning, take the morning of surgery. acyclovir (ZOVIRAX) 400 mg tablet Do not take the day of surgery acetaminophen (TYLENOL EXTRA STRENGTH) 500 mg tablet If you normally take this medication in the morning, take the morning of surgery. cyanocobalamin (VITAMIN B-12) 1,000 mcg tab Do not take the day of surgery folic acid 800 mcg tablet Do not take the day of surgery glimepiride (AMARYL) 2 mg tablet Do not take the day of surgery ondansetron (ZOFRAN) 8 mg tablet If you normally take this medication in the morning, take the morning of surgery. clonazePAM (KLONOPIN) 0.5 mg tablet If you normally take this medication in the morning, take the morning of surgery. atorvastatin (LIPITOR) 10 mg tablet If you normally take this medication in the morning, take the morning of surgery. losartan (COZAAR) 50 mg tablet If you normally take this medication in the morning, take the morning of surgery. Mupirocin Ointment Apply 1/2 inch of the mupirocin ointment with a Q-tip to both nostrils in the morning and afternoon for 5 consecutive days before surgery. If you are scheduled for a pre-op Covid-19 test, please do not apply mupirocin the morning of your test. You may apply it right after the test instead. If you are currently using a xoko-zyb-tvae injectable or oral medication for diabetes or weight loss such as Dulaglutide (Trulicity), Exenatide (Byetta, Bydureon), Liraglutide (Victoza, Saxenda), Semaglutide (Ozempic, Wegovy, Rybelsus), or Tirzepatide (Mounjaro), the medicine should be stopped at least 7 days before surgery. These medicines can cause food to remain in your stomach for a very long time and increase the risks from surgery and anesthesia. Not stopping the medication for a long enough time may result in your surgery being rescheduled. If you take any medications for erectile dysfunction-Cialis (Tadalafil), Levitra, Staxyn (Vardenafil) Viagra (Sildenenafil please do not take these for 48 hours before surgery. If you start any new medications after today's visit, please contact the surgeon's office. Blood Thinning Medications: - Stop NSAIDS (Ibuprofen, Advil, Aleve, Motrin, Celebrex, Mobic, etc.) 7 days before surgery, as directed by your surgeon. - Stop Aspirin 7 days before surgery, as directed by your surgeon. - Stop herbal supplements 7 days before surgery. - You may take Tylenol (Acetaminophen) or any of your pain medications that do not contain aspirin or NSAIDS as needed. Important Reminders: - If you use CPAP/BIPAP, bring the machine with you to the surgery center. - If you are prescribed inhalers for breathing, continue using them. - Please be sure to brush your teeth and you can use mouth wash or rinse your mouth if dry. - Candy, mints, and tobacco products are NOT permitted the morning of surgery. - Hearing aids, dentures and glasses may be worn the morning of surgery. - If you have dentures or partials, please have a case to place them in or leave at home day of surgery. - NO jewelry, body piercings, makeup, hairpins or contacts are to be worn the day of surgery. If you develop symptoms such as a fever, cold, or flu, or have other changes to your health within TWO DAYS of scheduled surgery or the morning of surgery, please contact the surgery center above. Personal Belongings: -Please have photo ID and insurance cards. -If you do not have a copy of advance directives on file with us, please bring a copy with you on the day of surgery. - Leave ALL valuables and money at home or with family members. For Outpatient Procedures: - YOU MUST HAVE A RESPONSIBLE STONECUTTER ASSISTANT TAKE YOU HOME. A SUBSTATION ELECTRICIAN OR SUPERVISOR PRESSING DEPARTMENT CANNOT BE MADE A RESPONSIBLE STONECUTTER ASSISTANT. - We recommend that a responsible person stays with you overnight to take care of you. - You cannot stay in a hotel alone after outpatient surgery. You will not be permitted to have your surgery, if you do not have someone to take care of you. Please be aware that emergency situations arise, which may delay or change your surgical time. If this happens, we will notify you as soon as possible and regret any inconvenience. If you already have an Advance Directive, please fax a copy to [phone] or email to for it to be added to your chart. If you do not have an Advance Directive, you can find the appropriate form and more information at [email or web address]. We recommend that you complete the Advance Directive form found on the website and bring it with you the day of your surgery. It can be witnessed and scanned into your chart that day. Rosa Elena Coats APRN.PATTERNMAKER [employer] documented in this encounter [facility] 05-01-2025 History and physical note Images from the original note were not included. [facility] HISTORY AND PHYSICAL EXAMINATION SERVICE DATE: 05/01/2025 SERVICE TIME: 1:24 PM PRIMARY CARE PHYSICIAN: Connie Lugo MD Assessment Patient has the following medical conditions which may affect mare-operative course: Right bundle branch block Assessment: Denies any heart palpitations, edema, chest pain, shortness of breath, syncope, activity intolerance, or dizziness. ECG COMPLETE (04/17/2025 8:41 AM) Mixed hyperlipidemia Assessment: Compliant on statin therapy. Encouraged lifestyle modifications. Body mass index is 23.73 kg/m . Primary hypertension Assessment: Stable and compliant with medications. Follows with PCP. Last 3 Encounter BP Readings: Date: BP: 05/01/2025 122/56 05/01/2025 118/69 04/17/2025 156/80 Chronic 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 acute cor pulmonale (HCC) Assessment: Diagnosed with PE in December 2022 - was on revlimib for multiple myeloma. Last dose 05/15/25 prior to procedure per Oncologist. Type 2 diabetes mellitus, without long-term current use of insulin (HCC) Assessment: Reports compliance to medication. BS ranging in 150 or less. Hemoglobin A1C (%) Date Value 04/17/2025 6.0 03/10/2023 7.8 Multiple myeloma not having achieved remission (HCC) Assessment: S/p stem cell transplant two years ago. Follows oncology. Visit (SP) Office with Bright Thao APRN.CNP (05/01/2025) Lewy body dementia (HCC) Assessment: Mild per neurology. Compliant on aricept. [facility] with Gilbert Ramirez APRN.CNP (04/14/2025) ANESTHESIA FINDINGS: Intubation History: No history of difficult intubation. No abnormal airway history Significant Anesthesia Considerations: none Airway History: No history of difficult airway No abnormal airway history Amado Activity Status Index: METS: Walk indoors, such as around the house (1.75 METs) Do light work around the house, such as dusting or washing dishes (2.70 METs) Take care of self; that is eating, dressing, bathing, using the toilet (2.75 METs) Walk a block or two on level ground (2.75 METs) Do moderate work around the house, such as vacuuming, sweeping floors, or carrying in groceries (3.50 METs) Climb a flight of stairs or walk up a hill (5.50 METs) DASI Score: 18.95 Patient denies any chest pain or undue shortness of breath with the above physical activity. Clinical Frailty Scale: 3. Well, with treated comorbid disease STOP-Bang Score: Has or is being treated for high blood pressure Patient over 50 years old Male patient Denies snoring loudly Denies feeling tired, fatigued, or sleepy during the daytime Has not been observed to stop breathing or choking/gasping during sleep BMI less than or equal to 35 kg/m^2 Does not have a large neck STOP-Bang Score: 3 [id number] Score: Diabetes history: Yes [id number] Score: I - PHYSICAL EVALUATION AIRWAY Patient intubated: No. Tracheostomy tube not present Mallampati: II. TM distance: >3 FB. Neck ROM: full ROM without neurological symptoms. Mouth opening: adequate. Short neck: no. Thick neck: no DENTAL Dental findings: teeth intact. Additional comments: + scattered crowns. II - ANESTHESIA PLAN Anesthetic plan additional comments: *PACC/TCI - anesthesia choice. Beta Jamaal Monitoring Plan Post Procedure Analgesic Plan Prepared for Surgery: optimally prepared for surgery, pending [see comment]. Labs and EKG (04/17/25) reviewed and acceptable for procedure. CONSULTS: Patient does not require consults for optimization at this time Planned Anesthetic: anesthesia choice The Following Tests/Procedures Have Been Initiated: Orders Placed This Encounter K+ Standing Status: Future Expected Date: 05/01/2025 Expiration Date: 07/31/2025 Type and Screen, 30 day Standing Status: Future Expected Date: 05/01/2025 Expiration Date: 07/31/2025 Scheduling Instructions: A 30-day Type and Screen test has been ordered for you. This should be scheduled to be collected no earlier than 29 days before your scheduled procedure. If you receive blood products (red blood cells, platelets, plasma, cryoprecipitate) at any point before your procedure or are a female and become , please inform your provider. This test will be canceled, and a standard type and screen will need to be ordered to be collected within 3 days of your procedure. [facility] Procedure:: [place] Status of surgery/procedure:: Scheduled Date of surgery/procedure:: 05/22/2025 REASON FOR VISIT: Oseas Joseph is a 74 year old male who is scheduled for Procedure(s): ROBOTIC ASSISTED TOTAL HIP ARTHROPLASTY (Right) at the request of Dr. Gail Rock for consultation. My final recommendation will be communicated back to the requesting physician by way of shared medical record or letter. Subjective The patient has the following: COVID-19 Immunization Status Current Care Gaps Covid-19 Vaccine (11 - Moderna risk ) Overdue since 04/03/2025 10/03/2024 Imm Admin: COVID-19 vaccine, age 12+ yr (MODERNA) 03/13/2024 Imm Admin: COVID-19 vaccine, age 12+ yr, season (True Style) 12/12/2023 Imm Admin: COVID-19 vaccine, age 12+ yr (MODERNA) Only the first 3 history entries have been loaded, but more history exists. CHIEF COMPLAINT: pre op HPI: Patient is a 74 year old male scheduled for pre anesthesia consultation for a procedure on 05/22/2025 at [facility]. Patient is presenting with right hip pain. Denies specific injury. Reports pain today of 8/10, described as stabbing, worsens with activity. Has tried conservative methods with little relief. Patient denies other specific radiating, alleviating, or aggravating factors. REVIEW OF SYSTEMS: General: No weight loss, malaise or fevers. Neurological: + lewy body dementia Negative for: delirium, dementia, headaches, impaired sensorium, peripheral neuropathy, seizures, TIA and strokes. Respiratory: Negative for: asthma, bronchitis, COPD, current cough, bronchodilator used daily for the last 3 months, dyspnea, home oxygen, orthopnea, pneumonia within 6 weeks, tobacco use, URI < 2 weeks and obstructive sleep apnea. Cardiovascular: Positive for: DVT/PE, hyperlipidemia and hypertension Negative for: abdominal aortic aneurysm, AICD/PPM, angina, anticoagulation therapy, arrhythmia, atrial fibrillation, CAD, chest pain, CHF, congenital heart defect, recent NV, murmur/valvular heart disease, PTCA, PVD, open heart surgery and valve surgery. GI: Negative for: abdominal pain, GERD, GI bleed <30 days, hepatitis, liver disease, nausea, vomiting and ETOH >2 drinks/day. : denies CKD Negative for: on dialysis, dysuria, flank pain, frequent urination, hematuria, renal failure and urinary tract infection. Endocrine: Positive for: diabetes mellitus. Patient's diabetes mellitus is controlled by diet and oral agents. Negative for: hyperthyroidism and hypothyroidism. Hematology: Positive for: bruises/bleeds easily and chronic anti-coagulation/platelet meds. Patient is on anti-coagulation/platelet medication(s): DOAC. Negative for: anemia, factor V Leiden, hemophilia, thrombocytopenia, von Willebrand disease and transfusion of at least 4 units within 72 hours prior to surgery. Oncology: + multiple myeloma Negative for: CA metastasis, chemo within 30 days, disseminated cancer and radiotherapy within 90 days. Psych: No history of psychiatric symptoms or problems. Musculoskeletal: Negative for joint pain or swelling, back pain or muscle pain. Skin: Negative for lesions, rash and itching. Implanted Devices: No implanted devices. PAST MEDICAL HISTORY Diagnosis Date Alzheimer's disease (HCC) Arthritis Chronic diarrhea Lewy body dementia (HCC) Malignant melanoma (HCC) Mixed hyperlipidemia Multiple myeloma not having achieved remission (HCC) 10/26/2022 Other hyperlipidemia 04/17/2023 Primary hypertension 04/17/2023 Pulmonary embolism (HCC) Right bundle branch block 04/17/2023 Type 2 diabetes mellitus, without long-term current use of insulin (HCC) 04/17/2023 PAST SURGICAL HISTORY Procedure Laterality Date EXTRACTION ERUPTED TOOTH/EXR PAST SURGICAL HISTORY OF Colonoscopy REPAIR INCISIONAL HERNIA,REDUCIBLE 8th grade SKIN BX, 1 LESION 06/2022 STEM CELL (CD34) PC FAMILY HISTORY Problem Relation Age of Onset Diabetes Mother Hypertension Mother Renal Disease Mother Hypertension Father Diabetes Father Hypertension Sister Diabetes Sister No Known Problems Sister No Known Problems Sister No Known Problems Sister No Known Problems Sister Heart Sister Hypertension Brother Diabetes Brother Hyperlipidemia Brother Heart Brother Hypertension Maternal Grandmother Diabetes Maternal Grandmother Colon Cancer Paternal Grandmother Hypertension Paternal Grandfather Anesthesia Problems No Family History Social History Tobacco Use Smoking status: Never Smokeless tobacco: Never Vaping Use Vaping status: Never Used Substance Use Topics Alcohol use: Not Currently Comment: social Drug use: Never Prior to Admission medications as of 05/01/25 1252 Medication Sig Last Dose Taking potassium chloride ER (KLOR-CON) 20 mEq tablet Take 1 tablet by mouth once daily. Yes gabapentin (NEURONTIN) 300 mg capsule Take 1 capsule by mouth daily at bedtime for 90 days. Yes escitalopram oxalate (LEXAPRO) 5 mg tablet Take 1 tablet by mouth once daily. Yes REVLIMID 5 mg capsule TAKE 1 CAPSULE BY MOUTH DAILY FOR 28 DAYS Yes rivaroxaban (XARELTO) 20 mg tablet TAKE 1 TABLET BY MOUTH ONCE DAILY WITH SUPPER Yes donepezil (ARICEPT) 10 mg tablet Take 1 tablet by mouth daily with breakfast. Yes acyclovir (ZOVIRAX) 400 mg tablet Take 1 tablet by mouth two times a day. Yes acetaminophen (TYLENOL EXTRA STRENGTH) 500 mg tablet Take 1,000 mg by mouth every 8 hours as needed. Yes cyanocobalamin (VITAMIN B-12) 1,000 mcg tab Take 2,000 mcg by mouth once daily. Yes folic acid 800 mcg tablet Take 400 mcg by mouth once daily. Yes glimepiride (AMARYL) 2 mg tablet Take 1 tablet by mouth daily with breakfast. Take 2 mg twice a day. May increase to 4mg BID if your PCP requests so. Yes ondansetron (ZOFRAN) 8 mg tablet Take 1 tablet by mouth every 8 hours as needed for nausea/vomiting. Patient taking differently: Take 8 mg by mouth every 8 hours as needed for nausea/vomiting. Yes clonazePAM (KLONOPIN) 0.5 mg tablet Take 0.5 mg by mouth once daily. Yes atorvastatin (LIPITOR) 10 mg tablet Take 10 mg by mouth once daily. Yes losartan (COZAAR) 50 mg tablet Take 50 mg by mouth once daily. Yes No medication comments found. ALLERGIES No Known Allergies Objective PHYSICAL EXAM: General: alert and oriented and healthy appearance. Pertinent negatives noted - not distressed. Skin: normal color, no rash or lesions. HEENT: EOM intact, pupils equal round and pupils reactive to light. Pertinent negatives noted - no carotid bruit. Cardiovascular: regular rate and rhythm, normal S1 and S2, no rub, murmurs, or gallop. Respiratory: normal breath sounds, no wheezes or crackles. No chest wall deformity or tenderness. Abdomen: bowel sounds present and soft. Pertinent negatives noted - not tender. Extremities: Positive for joint tenderness. Pertinent negatives noted - no cellulitis, no clubbing, no deformity, no edema, no joint swelling, no abnormal pulses, no ulcer, no vascular insufficiency and no varicose veins. Neurological: normal cognition and motor skills. Gait normal. No weakness or sensory deficit. PAIN ASSESSMENT: VITALS: BP 122/56 Pulse 57 Temp (Src) 97.2 (Temporal) Resp 12 Ht 6' 0 (1.83m) Wt 175 lb (79.4kg) SpO2 95% BMI 23.73 kg/(m^2). Diagnostic tests reviewed for today's visit: Lab Value Units Date High Low HB 12.2 g/dL 05/01/2025 17.0 13.0 HCT 36.1 % 05/01/2025 51.0 39.0 WBC 5.10 k/uL 05/01/2025 11.00 3.70 PLT 252 k/uL 05/01/2025 400 150 NA 140 mmol/L 05/01/2025 144 136 K 3.2 mmol/L 05/01/2025 5.1 3.7 GLUC 168 mg/dL 05/01/2025 99 74 BUN 18 mg/dL 05/01/2025 24 9 CREAT 1.35 mg/dL 05/01/2025 1.22 0.73 PTSEC 12.7 sec 12/24/2024 <13.1 INR 1.2 no uni* 12/24/2024 1.3 0.9 APTT 27.8 sec 12/24/2024 32.4 23.0 ALT 12 U/L 05/01/2025 54 10 AST 10 U/L 05/01/2025 40 14 TBILI 0.8 mg/dL 05/01/2025 1.3 0.2 TSH No results within date range. Lab Value Units Date High Low HCGQT No results within date range. UHCG No results within date range. HCG, BODY* No results within date range. Lab Value Units Date High Low ABORHD No results within date range. ABSCREEN No results within date range. Hemoglobin A1C (%) Date Value 04/17/2025 6.0 03/10/2023 7.8 Recent Results (from the past 8760 hours) ECG COMPLETE Collection Time: 04/17/25 8:41 AM Result Value Ventricular Rate 48 Atrial Rate 48 P-R Interval 144 QRS Duration 112 QT Interval 468 QTC Calculation (Bazett) 418 Calculated P [place] 35 Calculated R [place] -38 Calculated T [place] 36 Impression SINUS BRADYCARDIA BORDERLINE LEFT AXIS DEVIATION INCOMPLETE RIGHT BUNDLE BRANCH BLOCK Confirmed by TESFAYE CASTILLO MD ([id number]) on 04/17/2025 7:31:37 PM Recent Results (from the past 57264 hours) ECHO Collection Time: 04/17/23 8:52 AM Impression CONCLUSIONS: - Exam indication: Pre-op stem cell transplant - The left ventricle is normal in size. There is mild concentric left ventricular hypertrophy. Left ventricular systolic function is normal. EF = 56 5% (2D biplane) Normal left ventricular diastolic function. GLS = (-13.6%). - The right ventricle is normal in size. Right ventricular systolic function is normal. - The patient has not had a prior CC echocardiographic exam for comparison. * * * Final * * * Instructions Given to Patient: Instructions located in the after visit summary. Patient given verbal and written preop instructions and voices comprehension and compliance. SIGNATURE: Rosa Elena Coats APRN.CNP PATIENT NAME: Oseas Joseph DATE: May 01, 2025 TIME: 12:42 PM PAGER/CONTACT #: [facility] 05-01-2025 History and physical note Images from the original note were not included. [facility] HISTORY AND PHYSICAL EXAMINATION SERVICE DATE: 05/01/2025 SERVICE TIME: 1:24 PM PRIMARY CARE PHYSICIAN: Connie Lugo MD Assessment Patient has the following medical conditions which may affect mare-operative course: Right bundle branch block Assessment: Denies any heart palpitations, edema, chest pain, shortness of breath, syncope, activity intolerance, or dizziness. ECG COMPLETE (04/17/2025 8:41 AM) Mixed hyperlipidemia Assessment: Compliant on statin therapy. Encouraged lifestyle modifications. Body mass index is 23.73 kg/m . Primary hypertension Assessment: Stable and compliant with medications. Follows with PCP. Last 3 Encounter BP Readings: Date: BP: 05/01/2025 122/56 05/01/2025 118/69 04/17/2025 156/80 Chronic 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 acute cor pulmonale (HCC) Assessment: Diagnosed with PE in December 2022 - was on revlimib for multiple myeloma. Last dose 05/15/25 prior to procedure per Oncologist. Type 2 diabetes mellitus, without long-term current use of insulin (HCC) Assessment: Reports compliance to medication. BS ranging in 150 or less. Hemoglobin A1C (%) Date Value 04/17/2025 6.0 03/10/2023 7.8 Multiple myeloma not having achieved remission (HCC) Assessment: S/p stem cell transplant two years ago. Follows oncology. Visit ([facility]) Office with Bright Thao APRN.CNP (05/01/2025) Lewy body dementia (HCC) Assessment: Mild per neurology. Compliant on aricept. [facility] with Gilbert Ramirez APRN.CNP (04/14/2025) ANESTHESIA FINDINGS: Intubation History: No history of difficult intubation. No abnormal airway history Significant Anesthesia Considerations: none Airway History: No history of difficult airway No abnormal airway history Amado Activity Status Index: METS: Walk indoors, such as around the house (1.75 METs) Do light work around the house, such as dusting or washing dishes (2.70 METs) Take care of self; that is eating, dressing, bathing, using the toilet (2.75 METs) Walk a block or two on level ground (2.75 METs) Do moderate work around the house, such as vacuuming, sweeping floors, or carrying in groceries (3.50 METs) Climb a flight of stairs or walk up a hill (5.50 METs) DASI Score: 18.95 Patient denies any chest pain or undue shortness of breath with the above physical activity. Clinical Frailty Scale: 3. Well, with treated comorbid disease STOP-Bang Score: Has or is being treated for high blood pressure Patient over 52 years old Male patient Denies snoring loudly Denies feeling tired, fatigued, or sleepy during the daytime Has not been observed to stop breathing or choking/gasping during sleep BMI less than or equal to 35 kg/m^2 Does not have a large neck STOP-Bang Score: 3 [id number] Score: Diabetes history: Yes [id number] Score: I - PHYSICAL EVALUATION AIRWAY Patient intubated: No. Tracheostomy tube not present Mallampati: II. TM distance: >3 FB. Neck ROM: full ROM without neurological symptoms. Mouth opening: adequate. Short neck: no. Thick neck: no DENTAL Dental findings: teeth intact. Additional comments: + scattered crowns. II - ANESTHESIA PLAN Anesthetic plan additional comments: *PACC/TCI - anesthesia choice. Beta Jamaal Monitoring Plan Post Procedure Analgesic Plan Prepared for Surgery: optimally prepared for surgery, pending [see comment]. Labs and EKG (04/17/25) reviewed and acceptable for procedure. CONSULTS: Patient does not require consults for optimization at this time Planned Anesthetic: anesthesia choice The Following Tests/Procedures Have Been Initiated: Orders Placed This Encounter K+ Standing Status: Future Expected Date: 05/01/2025 Expiration Date: 07/31/2025 Type and Screen, 30 day Standing Status: Future Expected Date: 05/01/2025 Expiration Date: 07/31/2025 Scheduling Instructions: A 30-day Type and Screen test has been ordered for you. This should be scheduled to be collected no earlier than 29 days before your scheduled procedure. If you receive blood products (red blood cells, platelets, plasma, cryoprecipitate) at any point before your procedure or are a female and become , please inform your provider. This test will be canceled, and a standard type and screen will need to be ordered to be collected within 3 days of your procedure. [facility] [place] Status of surgery/procedure:: Scheduled Date of surgery/procedure:: 05/22/2025 REASON FOR VISIT: Oseas Joseph is a 74 year old male who is scheduled for Procedure(s): ROBOTIC ASSISTED TOTAL HIP ARTHROPLASTY (Right) at the request of Dr. Gail Rock for consultation. My final recommendation will be communicated back to the requesting physician by way of shared medical record or letter. Subjective The patient has the following: COVID-19 Immunization Status Current Care Gaps Covid-19 Vaccine (11 - Moderna risk 2023- season) Overdue since 04/03/2025 10/03/2024 Imm Admin: COVID-19 vaccine, age 12+ yr (MODERNA) 03/13/2024 Imm Admin: COVID-19 vaccine, age 12+ yr, 2022- season (PFI[employer]-BIONTCoupad) 12/12/2023 Imm Admin: COVID-19 vaccine, age 12+ yr (MODERNA) Only the first 3 history entries have been loaded, but more history exists. CHIEF COMPLAINT: pre op HPI: Patient is a 74 year old male scheduled for pre anesthesia consultation for a procedure on 05/22/2025 at [facility]. Patient is presenting with right hip pain. Denies specific injury. Reports pain today of 8/10, described as stabbing, worsens with activity. Has tried conservative methods with little relief. Patient denies other specific radiating, alleviating, or aggravating factors. REVIEW OF SYSTEMS: General: No weight loss, malaise or fevers. Neurological: + lewy body dementia Negative for: delirium, dementia, headaches, impaired sensorium, peripheral neuropathy, seizures, TIA and strokes. Respiratory: Negative for: asthma, bronchitis, COPD, current cough, bronchodilator used daily for the last 3 months, dyspnea, home oxygen, orthopnea, pneumonia within 6 weeks, tobacco use, URI < 2 weeks and obstructive sleep apnea. Cardiovascular: Positive for: DVT/PE, hyperlipidemia and hypertension Negative for: abdominal aortic aneurysm, AICD/PPM, angina, anticoagulation therapy, arrhythmia, atrial fibrillation, CAD, chest pain, CHF, congenital heart defect, recent NV, murmur/valvular heart disease, PTCA, PVD, open heart surgery and valve surgery. GI: Negative for: abdominal pain, GERD, GI bleed <30 days, hepatitis, liver disease, nausea, vomiting and ETOH >2 drinks/day. : denies CKD Negative for: on dialysis, dysuria, flank pain, frequent urination, hematuria, renal failure and urinary tract infection. Endocrine: Positive for: diabetes mellitus. Patient's diabetes mellitus is controlled by diet and oral agents. Negative for: hyperthyroidism and hypothyroidism. Hematology: Positive for: bruises/bleeds easily and chronic anti-coagulation/platelet meds. Patient is on anti-coagulation/platelet medication(s): DOAC. Negative for: anemia, factor V Leiden, hemophilia, thrombocytopenia, von Willebrand disease and transfusion of at least 4 units within 72 hours prior to surgery. Oncology: + multiple myeloma Negative for: CA metastasis, chemo within 30 days, disseminated cancer and radiotherapy within 90 days. Psych: No history of psychiatric symptoms or problems. Musculoskeletal: Negative for joint pain or swelling, back pain or muscle pain. Skin: Negative for lesions, rash and itching. Implanted Devices: No implanted devices. PAST MEDICAL HISTORY Diagnosis Date Alzheimer's disease (HCC) Arthritis Chronic diarrhea Lewy body dementia (HCC) Malignant melanoma (HCC) Mixed hyperlipidemia Multiple myeloma not having achieved remission (HCC) 10/26/2022 Other hyperlipidemia 04/17/2023 Primary hypertension 04/17/2023 Pulmonary embolism (HCC) Right bundle branch block 04/17/2023 Type 2 diabetes mellitus, without long-term current use of insulin ([facility]) 04/17/2023 PAST SURGICAL HISTORY Procedure Laterality Date EXTRACTION ERUPTED TOOTH/EXR PAST SURGICAL HISTORY OF Colonoscopy REPAIR INCISIONAL HERNIA,REDUCIBLE 8th grade SKIN BX, 1 LESION 06/2022 STEM CELL (CD34) PC FAMILY HISTORY Problem Relation Age of Onset Diabetes Mother Hypertension Mother Renal Disease Mother Hypertension Father Diabetes Father Hypertension Sister Diabetes Sister No Known Problems Sister No Known Problems Sister No Known Problems Sister No Known Problems Sister Heart Sister Hypertension Brother Diabetes Brother Hyperlipidemia Brother Heart Brother Hypertension Maternal Grandmother Diabetes Maternal Grandmother Colon Cancer Paternal Grandmother Hypertension Paternal Grandfather Anesthesia Problems No Family History Social History Tobacco Use Smoking status: Never Smokeless tobacco: Never Vaping Use Vaping status: Never Used Substance Use Topics Alcohol use: Not Currently Comment: social Drug use: Never Prior to Admission medications as of 05/01/25 1252 Medication Sig Last Dose Taking potassium chloride ER (KLOR-CON) 20 mEq tablet Take 1 tablet by mouth once daily. Yes gabapentin (NEURONTIN) 300 mg capsule Take 1 capsule by mouth daily at bedtime for 90 days. Yes escitalopram oxalate (LEXAPRO) 5 mg tablet Take 1 tablet by mouth once daily. Yes REVLIMID 5 mg capsule TAKE 1 CAPSULE BY MOUTH DAILY FOR 28 DAYS Yes rivaroxaban (XARELTO) 20 mg tablet TAKE 1 TABLET BY MOUTH ONCE DAILY WITH SUPPER Yes donepezil (ARICEPT) 10 mg tablet Take 1 tablet by mouth daily with breakfast. Yes acyclovir (ZOVIRAX) 400 mg tablet Take 1 tablet by mouth two times a day. Yes acetaminophen (TYLENOL EXTRA STRENGTH) 500 mg tablet Take 1,000 mg by mouth every 8 hours as needed. Yes cyanocobalamin (VITAMIN B-12) 1,000 mcg tab Take 2,000 mcg by mouth once daily. Yes folic acid 800 mcg tablet Take 400 mcg by mouth once daily. Yes glimepiride (AMARYL) 2 mg tablet Take 1 tablet by mouth daily with breakfast. Take 2 mg twice a day. May increase to 4mg BID if your PCP requests so. Yes ondansetron (ZOFRAN) 8 mg tablet Take 1 tablet by mouth every 8 hours as needed for nausea/vomiting. Patient taking differently: Take 8 mg by mouth every 8 hours as needed for nausea/vomiting. Yes clonazePAM (KLONOPIN) 0.5 mg tablet Take 0.5 mg by mouth once daily. Yes atorvastatin (LIPITOR) 10 mg tablet Take 10 mg by mouth once daily. Yes losartan (COZAAR) 50 mg tablet Take 50 mg by mouth once daily. Yes No medication comments found. ALLERGIES No Known Allergies Objective PHYSICAL EXAM: General: alert and oriented and healthy appearance. Pertinent negatives noted - not distressed. Skin: normal color, no rash or lesions. HEENT: EOM intact, pupils equal round and pupils reactive to light. Pertinent negatives noted - no carotid bruit. Cardiovascular: regular rate and rhythm, normal S1 and S2, no rub, murmurs, or gallop. Respiratory: normal breath sounds, no wheezes or crackles. No chest wall deformity or tenderness. Abdomen: bowel sounds present and soft. Pertinent negatives noted - not tender. Extremities: Positive for joint tenderness. Pertinent negatives noted - no cellulitis, no clubbing, no deformity, no edema, no joint swelling, no abnormal pulses, no ulcer, no vascular insufficiency and no varicose veins. Neurological: normal cognition and motor skills. Gait normal. No weakness or sensory deficit. PAIN ASSESSMENT: VITALS: BP 122/56 Pulse 57 Temp (Src) 97.2 (Temporal) Resp 12 Ht 6' 0 (1.83m) Wt 175 lb (79.4kg) SpO2 95% BMI 23.73 kg/(m^2). Diagnostic tests reviewed for today's visit: Lab Value Units Date High Low HB 12.2 g/dL 05/01/2025 17.0 13.0 HCT 36.1 % 05/01/2025 51.0 39.0 WBC 5.10 k/uL 05/01/2025 11.00 3.70 PLT 252 k/uL 05/01/2025 400 150 NA 140 mmol/L 05/01/2025 144 136 K 3.2 mmol/L 05/01/2025 5.1 3.7 GLUC 168 mg/dL 05/01/2025 99 74 BUN 18 mg/dL 05/01/2025 24 9 CREAT 1.35 mg/dL 05/01/2025 1.22 0.73 PTSEC 12.7 sec 12/24/2024 <13.1 INR 1.2 no uni* 12/24/2024 1.3 0.9 APTT 27.8 sec 12/24/2024 32.4 23.0 ALT 12 U/L 05/01/2025 54 10 AST 10 U/L 05/01/2025 40 14 TBILI 0.8 mg/dL 05/01/2025 1.3 0.2 TSH No results within date range. Lab Value Units Date High Low HCGQT No results within date range. UHCG No results within date range. HCG, BODY* No results within date range. Lab Value Units Date High Low ABORHD No results within date range. ABSCREEN No results within date range. Hemoglobin A1C (%) Date Value 04/17/2025 6.0 03/10/2023 7.8 Recent Results (from the past 8760 hours) ECG COMPLETE Collection Time: 04/17/25 8:41 AM Result Value Ventricular Rate 48 Atrial Rate 48 P-R Interval 144 QRS Duration 112 QT Interval 468 QTC Calculation (Bazett) 418 Calculated P [place] 35 Calculated R [place] -38 Calculated T [place] 36 Impression SINUS BRADYCARDIA BORDERLINE LEFT AXIS DEVIATION INCOMPLETE RIGHT BUNDLE BRANCH BLOCK Confirmed by TESFAYE CASTILLO MD ([id number]) on 04/17/2025 7:31:37 PM Recent Results (from the past 86051 hours) ECHO Collection Time: 04/17/23 8:52 AM Impression CONCLUSIONS: - Exam indication: Pre-op stem cell transplant - The left ventricle is normal in size. There is mild concentric left ventricular hypertrophy. Left ventricular systolic function is normal. EF = 56 5% (2D biplane) Normal left ventricular diastolic function. GLS = (-13.6%). - The right ventricle is normal in size. Right ventricular systolic function is normal. - The patient has not had a prior CC echocardiographic exam for comparison. * * * Final * * * Instructions Given to Patient: Instructions located in the after visit summary. Patient given verbal and written preop instructions and voices comprehension and compliance. SIGNATURE: Rosa Elena Coats APRN.CNP PATIENT NAME: Oseas Joseph DATE: May 01, 2025 TIME: 12:42 PM PAGER/CONTACT #: documented in this encounter [facility] 05-01-2025 History of Present illness Narrative Chief Complaint Patient presents with: Established Patient HPI: Oseas Joseph is a 74 year old male who presents here today for follow up MM. Per Dr. Mccain's previous note: H/o type 2 diabetes, high cholesterol, hypertension and right bundle branch block. Patient originally presented to the emergency room at [facility] on 04/19/2022 with new onset of confusion that day which had been worsening. Laboratory work-up significant for hypokalemia. CT of the brain was unremarkable. He was admitted. During hospitalization it was noted that he had been having diarrhea for 6 to 8 weeks. Stool studies were positive for Campylobacter, blood and lactoferrin. C. difficile was negative. CT of the abdomen pelvis on 04/21/2022 noted abnormal pericholecystic edema without gallstones. Renal cysts and colonic diverticulosis were noted. He was found to have elevation of sed rate to 39, CRP 134. His albumin was 2.3. IgA low at 37. He was discharged on azithromycin, potassium and magnesium supplement. He was seen in the outpatient setting for follow-up visit on 07/11/2022. He continued to have one episode of explosive diarrhea daily. This had been going on for about 8 months. CBC on 07/11 showed a white count of 6400. Differential was normal. Hemoglobin 14.9 g/dL. Platelet count 275,000. Chemistries significant for creatinine of 1.29 g/dL. Previously 1.13 g/dL on 04/27/2022. Calcium was 9.3 mg/dL. Total bilirubin, AST, ALT and alkaline phosphatase were normal. LDH was 181. C-reactive protein was less than 2.09. Total protein was 8.8 g/dL. Total IgG was 2462 mg/dL. IgA decreased to 28 mg/dL. IgM normal at 32 mg/dL. On protein electrophoresis, patient was found to have 2M spikes both IgG lambda by immunofixation. For spike was quantitated at 1.2 g/dL and the second was quantitated at 0.6 g/dL. Cytoplasmic and perinuclear ANCA both negative. Atypical p-ANCA negative. Patient described diarrhea as loose, eran stools sometimes explosive typically one bowel movement per day however. He had not observed any blood. Had a colonoscopy [address] Arteaga. His appetite was normal. He had not lost weight. Denied reflux and nausea. He did get abdominal bloating associated with the diarrhea. He denied musculoskeletal pain. He denied symptoms of sensory neuropathy. He sees an team supervisor once a year for dilated exam. He has not been told he has retinopathy. Recent removal of early melanoma back. Blue nevus right ankle--required WLE--scheduled. PMR--about 15 years ago. Patient underwent colonoscopy on 09/21/2022. Preparation of the colon was fair. -One 6 mm polyp at the ileocecal valve, removed with a hot snare. Resected and retrieved. -One 5 mm polyp in the ascending colon, removed with a hot snare. Resected and retrieved. -Congested mucosa in the descending colon, at the splenic flexure, in the ascending colon and in the cecum. Biopsied. -Diverticulosis in the recto-sigmoid colon, in the sigmoid colon and in the descending colon. -Stool in the rectum, in the sigmoid colon, in the descending colon and at the hepatic flexure. Fluid aspiration performed. -The examined portion of the ileum was normal. Biopsied. Pathology: A. Ileocecal valve polyp, biopsy: -Consistent with fibrolipomatous polyp. -See comment. B. Small bowel, biopsy: -No pathologic change. C. Cecum, biopsy: -Mild melanosis coli. D. Colon, random biopsy: -Mild melanosis coli. E. Ascending colon polyp, biopsy: -Fragments of tubular adenoma. B, C, D & E - No congophilic material identified. Congo red stain with matched control is negative. ADDENDUM C & D. No congophilic material is noted in these biopsies on light and polarized microscopy. Congo Red stain with matched control was used in the evaluation of this case. He was diagnosed with pancreatic insufficiency and was to start pancreatic enzyme replacement. Patient had a venous duplex ultrasound on 12/16/2022 for right leg pain. That study demonstrated no evidence of DVT in the right leg. He developed chest pain and increasing shortness of breath. Went to the ED on 01/16/2023. PE protocol chest CT demonstrated multiple bilateral pulmonary emboli involving the distal portion of both the right and left main pulmonary arteries as well as branches of the upper and lower lobe pulmonary arteries, more prominent on the right side. Platelet count was 67,000. Patient was admitted and placed on unfractionated heparin with bolus. The next morning platelet count was 62,000. He was rotated to apixaban and discharged. Echocardiogram performed 01/17/2023 demonstrated normal LV size. There was moderate concentric LVH. Left ventricular systolic function was normal with an estimated ejection fraction at 60%. There was stage I diastolic dysfunction. The pulmonary artery systolic pressure was 58 mmHg. The global longitudinal strain was -11.5% (abnormal). The global longitudinal strain was moderately abnormal. (Previous echocardiogram 04/20/2022 demonstrated right ventricular systolic pressure estimated at 22 mmHg. Diastolic function was indeterminate. Right ventricular strain was not determined). His chest pain has improved. He is still short of breath with heavier exertion and sometimes walking from room to room he finds himself breathing heavier. He has been taking apixaban 10 mg twice daily. No bleeding issues. Previous therapy: 1) RVd. Cycle #1 began 11/09/2022. 2) Zometa. 3) ASCT. Transplant Summary: BMT Information ASCR infused on 06/02/2023 Planned Proposed Protocols: IP BMT AUTO MELPHALAN 200 Planned Preparative Regimen Drug: Melphalan Planned Mobilization Agent: G-CSF, Plerixafor Planned Stem Cell Source: Peripheral blood stem cells BMT Transplant Details # of cells: 6.16 Saw neurology. 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 Scheduled for EMG 01/16. Seen in the ED on 01/27/2024 for an episode of confusion that was secondary to hypoglycemia. Evidently had influenza diagnosed prior to that. Was then admitted for neutropenic fever on 01/31/2024. ANC was 600 at time of admission. Influenza A positive. Stool positive for Campylobacter. Was treated with high-dose Tamiflu secondary to underlying immunocompromise. Discharged on azithromycin 500 mg daily for 14 days. B/L hip injections 10/18. Helped significantly for several weeks. Wearing off and starting to have more pain both hips. Typically pain improves once up an moving. Denies pain otherwise. Pt. here today with spouse and daughter. No new concerns today. Recently had virus. Appetite:Getting there. Wt. down 12# since last visit. Energy level:Eh. +low grade fevers and GI virus. Mouth:denies sores Resp:+cough-improving, denies sob Cardiac:denies chest pain/palpitations GI:denies abd pain, n/v, stools are making the right direction :denies dysuria/hematuria Extrem:denies new pain, chronic R leg pain, having R total hip at the end of the month Skin:denies rashes Heme:denies bleeding, on xarelto The ROS is otherwise negative. Past medical history, appointments, medications, allergies reviewed. No changes. EXAM: BP 118/69 Pulse 60 Temp 36.2 C (97.1 F) Wt 80 kg (176 lb 5.9 oz) SpO2 97% BMI 23.92 kg/m APPEARANCE Well appearing, alert, in no acute distress, well-hydrated, well nourished. HEART RRR with normal S1 and S2, no murmurs LUNG clear to auscultation ABDOMEN bowel sounds normoactive, soft, non-tender EXTREMITIES No edema NEURO Awake, alert and oriented x 3, Normal gait, and No involuntary motions. SKIN Skin color, texture, turgor normal, no suspicious rashes or lesions LABS: Latest Ref Rng 03/06/2025 04/03/2025 05/01/2025 WBC 3.70 - 11.00 k/uL 3.43 (L) 3.24 (L) 5.10 RBC 4.20 - 6.00 m/uL 4.12 (L) 3.56 (L) 3.94 (L) Hemoglobin 13.0 - 17.0 g/dL 12.8 (L) 11.2 (L) 12.2 (L) Hematocrit 39.0 - 51.0 % 38.5 (L) 33.4 (L) 36.1 (L) MCV 80.0 - 100.0 fL 93.4 93.8 91.6 MCH 26.0 - 34.0 pg 31.1 31.5 31.0 MCHC 30.5 - 36.0 g/dL 33.2 33.5 33.8 RDW-CV 11.5 - 15.0 % 14.1 14.2 14.9 Platelet Count 150 - 400 k/uL 148 (L) 179 252 MPV 9.0 - 12.7 fL 9.4 9.5 9.4 NRBC /100 WBC 0.0 0.0 0.0 Absolute nRBC <0.01 k/uL <0.01 <0.01 <0.01 Neut% % 52.2 53.0 66.9 Abs Neut (ANC) 1.45 - 7.50 k/uL 1.79 1.72 3.41 Lymph% % 26.2 20.0 15.3 Abs Lymph 1.00 - 4.00 k/uL 0.90 (L) 0.68 (L) 0.78 (L) Morton% % 14.6 10.0 13.5 Abs Morton <0.87 k/uL 0.50 0.32 0.69 Eosin% % 5.8 15.0 3.3 Abs Eosin <0.46 k/uL 0.20 0.49 (H) 0.17 Baso% % 0.9 1.0 0.6 Abs Baso <0.11 k/uL 0.03 0.03 0.03 Realym% % 1.0 Platelet Estimate Adequate Red Cell Morph Reviewed: see results of individual morphologies Ovalocytes Few DTYPE Auto Manual Auto Immature Gran % % 0.3 0.4 IMMATURE GRANS (ABS) <0.10 k/uL <0.03 <0.03 Latest Ref Rng 03/06/2025 04/03/2025 Protein, Total 6.3 - 8.0 g/dL 6.6 6.1 (L) Albumin 3.9 - 4.9 g/dL 4.0 3.3 (L) Calcium 8.5 - 10.2 mg/dL 9.2 8.5 Bilirubin, Total 0.2 - 1.3 mg/dL 0.6 0.4 Alkaline Phosphatase 38 - 113 U/L 53 58 AST 14 - 40 U/L 15 15 ALT 10 - 54 U/L 18 21 Glucose 74 - 99 mg/dL 133 (H) 168 (H) BUN 9 - 24 mg/dL 16 22 Creatinine 0.73 - 1.22 mg/dL 1.44 (H) 1.47 (H) Sodium 136 - 144 mmol/L 140 143 Potassium 3.7 - 5.1 mmol/L 4.4 3.6 (L) Chloride 98 - 107 mmol/L 109 (H) 110 (H) CO2 22 - 30 mmol/L 21 (L) 19 (L) Anion Gap 8 - 15 mmol/L 10 14 eGFR >=60 mL/min/1.73m 52 (L) 50 (L) Latest Ref Rng 04/03/2025 05/01/2025 LD 135 - 225 U/L 135 157 MM labs: Pending ASSESSMENT/PLAN: 1. Multiple myeloma not having achieved remission (HCC) - ICD9: 203.00, ICD10: C90.00 (primary diagnosis) 2. Examination of participant in clinical trial - ICD9: V70.7, ICD10: Z00.6 3. Chronic 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 acute cor pulmonale, unspecified pulmonary embolism type (HCC) - ICD9: 416.2, ICD10: I27.[address] Mccain's previous note: Assessment: -The patient is a 74-year-old male has a past medical history significant for diabetes and chronic diarrhea that was characterized by one explosive watery stool daily (was diagnosed with pancreatic insufficiency). Was hospitalized 03/2022 when diarrhea significantly worsened and he was diagnosed with and treated for Campylobacter infection. During that evaluation, was found to have two IgG lambda monoclonal antibodies. He did not have hypercalcemia or anemia but had elevated serum creatinine (which may have been related to volume depletion when hospitalized for diarrhea and mental status change). 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 Low to intermediate risk disease (PCs 20%). -Imaging--no lytic lesions on whole body CT; Liver cyst and splenic nodule (6-12 month f/u MRI recommended). -Bone marrow negative for amyoid. -Colonic biopsies negative for amyloid. -Subsequent MRI of spine and pelvis revealed two T2 hyperintense foci in the pelvis, one in the left sacral rebeka and one in the right ischium. -FISH panel revealed (11;14) (q13;q32) (IGH/CCND1) translocation consistent with the presence of a plasma cell neoplasm associated with standard risk disease. -R-ISS stage I (serum beta microglobulin less than 3.5 mg/L and serum albumin greater than 3.5 g/dL; standard risk disease by FISH testing as outlined above and serum LDH less than upper limit of normal). -Serum monoclonal protein from February (IgG lambda 0.18 g/dL) indicates SD. IgG lambda by immunofixation and 24-hour urine collection. -Reviewed trending serum creatinine. He has had fluctuating levels. He is not hydrating very well. We discussed the importance of this with him. We also discussed the importance of good blood glucose control. Home blood pressures typically 120s to 130s with diastolics in the 70s. Because of recent diagnoses of Alzheimer's and Lewy body dementia, I recommended holding off on Zometa today since I am not sure how reliable he will be with hydration. Will administer next month if creatinine improves. If continues to worsen then nephrology consultation. -Reviewed CBC. Counts allow continued therapy. -ECOG PS 1. Plan: -Continue lenalidomide at current dose. -Follow-up on finalized results of today's serum protein electrophoresis and differential. - Rx for shower chair. Previously provided Rx for rollator walker. - Decrease gabapentin to 300 mg at at bedtime. - Discontinue amlodipine and continue losartan. -CBC, chemistries and serum protein electrophoresis and immunofixation as well as 24-hour urine collection for electrophoresis and immunofixation monthly per protocol. Needs follow up for lung nodules. Supportive care: ID: Plan: -Continue acyclovir. Skeletal: -Only lytic lesions observed over those in the pelvic bones on MRI initially. Plan: -Zometa every 3 months. -Decrease Zometa to 3.5 mg. Chronic PE. Assessment: -B/L PE developed on ASA prophylaxis. -Previous evidence of pulmonary hypertension on echocardiogram. -Tolerating rivaroxaban well. -CBC reveals no thrombocytopenia. Plan: -Continue rivaroxaban--will dose adjust as indicated by GFR. Neuro: -No symptoms of neuropathy. ECOG PS 1. - Overall tolerating revlimid well. - Reviewed CBC/CMP/LD with pt. and spouse. - MM labs pending. - No bleeding issues on xarelto-Continue. - Continue current medications. - Continue follow up with all specialists/PCP. - Continue zometa every 3 months. - Rx Kdur. - Advised pt. to hold revlimid starting May 15 for upcoming hip surgery. - Follow up as scheduled. - Pt. aware to call office with any questions/concerns. The patient indicates understanding of these issues and agrees with the plan. All documentation from previous visit of 04/03/25-Dr. Mccain was copied and pasted, documentation has been reviewed and edited as necessary for today's visit. Bright Thao APRN.EVELIN documented in this encounter [facility] 04-21-2025 Telephone encounter Note TOTAL JOINT COMPLETE CARE PROGRAM PRE-OPERATIVE TEACHING Service Date: 04/21/2025 Service Time: 4:16 PM Date of : 1950 Gender: male Date of Surgery: 05/22/25 Procedure: Right Total Hip Replacement Complete Care Program was discussed with the patient: Warp Placer Identification: Patient identified a care program director to help when discharged to home: spouse Home Environment: Home Layout: Ranch, Entry Steps: 1, Bedroom Location: 1st floor, Bathroom Location: 1st floor, and walk in shower. Pt unsure of equipment. Discussed with patient importance of attending joint education class and provided date and times of class: YES declined. Patient received Joint Education Binder: Yes Patient plans discharge with [facility], unsure if [facility] comes to his area. SIGNATURE: YUMIKO Grace PATIENT NAME: Oseas Joseph DATE: April 21, 2025 TIME: 4:16 PM [facility] 04-21-2025 Miscellaneous Notes TOTAL JOINT COMPLETE CARE PROGRAM PRE-OPERATIVE TEACHING Service Date: 04/21/2025 Service Time: 4:16 PM Date of : 1950 Gender: male Date of Surgery: 05/22/25 Procedure: Right Total Hip Replacement Complete Care Program was discussed with the patient: Warp Placer Identification: Patient identified a care program director to help when discharged to home: spouse Home Environment: Home Layout: [place], Entry Steps: 1, Bedroom Location: 1st floor, Bathroom Location: 1st floor, and walk in shower. Pt unsure of equipment. Discussed with patient importance of attending joint education class and provided date and times of class: YES declined. Patient received Joint Education Binder: Yes Patient plans discharge with [facility], unsure if [facility] comes to his area. SIGNATURE: YUMIKO Grace PATIENT NAME: Oseas Joseph DATE: April 21, 2025 TIME: 4:16 PM documented in this encounter [facility] 04-20-2025 Telephone encounter Note I called and spoke to Louise patient's spouse and she stated understanding of the below information. She also stated that patient may not have procedure this week due to haing something viral but it will depend on how he is feeling in the next few days Nahomi Hall Pss [facility] 04-20-2025 Miscellaneous Notes I called and spoke to Louise patient's spouse and she stated understanding of the below information. She also stated that patient may not have procedure this week due to haing something viral but it will depend on how he is feeling in the next few days Nahomi [place] Pss Yes, okay to hold Xarelto. Advised him to start holding Revlimid as of now as well. He should hold Revlimid until he is seen for OV on 05/01. Connie Mccain DO [place], I saw this mutual patient in [facility] on 04/17/2025. Oseas Joseph is scheduled for right ROBOTIC ASSISTED TOTAL HIP ARTHROPLASTY with Dr. Rock, on 04/24. I am requesting that Oseas HOLD Xarelto (rivaroxabon) for 3 days for the patient's upcoming procedure. Also do you have any perioperative recommendation regarding his REVLIMID. Please advise. Thank you, Isabel Beard APRN.CNP [facility] documented in this encounter [facility] 04-18-2025 Telephone encounter Note Yes, okay to hold Xarelto. Advised him to start holding Revlimid as of now as well. He should hold Revlimid until he is seen for OV on 05/01. Connie Mccain DO [facility] 04-18-2025 Telephone encounter Note We will order one unit to have ready if needed. Nidhi Pat PA-C [facility] Work Phone: 04-18-2025 Miscellaneous Notes We will order one unit to have ready if needed. Nidhi Pat PA-C Images from the original note were not included. Peri Kellogg saw this mutual patient in [facility] on 04/17. Oseas Lui Jake 1950 is scheduled for right ROBOTIC ASSISTED TOTAL HIP ARTHROPLAST with Dr. Rock on 04/24. Patient with history of HLD, RBBB, HTN, PE, DM2, Multiple myeloma, lewy body dementia and Alzheimer's. He has a historical T&S with positive antibody. He would need blood ordered at least 1 day prior to surgery, if anticipating potential infusion. Last CBC 04/03/25. Thank you! Isabel Beard APRN.EVELIN documented in this encounter [facility] 04-18-2025 Telephone encounter Note Images from the original note were not included. Peri Kellogg saw this mutual patient in [facility] on 04/17. Oseas Lui Jake 1950 is scheduled for right ROBOTIC ASSISTED TOTAL HIP ARTHROPLAST with Dr. Rock on 04/24. Patient with history of HLD, RBBB, HTN, PE, DM2, Multiple myeloma, lewy body dementia and Alzheimer's. He has a historical T&S with positive antibody. He would need blood ordered at least 1 day prior to surgery, if anticipating potential infusion. Last CBC 04/03/25. Thank you! Isabel Beard APRN.PATTERNMAKER [employer]PRENTICE [employer]OD [facility] 04-17-2025 Note Addended by: ISABEL BEARD on: 04/17/2025 10:44 AM Modules accepted: Orders [facility] 04-17-2025 Miscellaneous Notes Addended by: ISABEL BEARD on: 04/17/2025 10:44 AM Modules accepted: Orders documented in this encounter [facility] 04-17-2025 History of Present illness Narrative Radiology Service Progress Note PATIENT NAME: Oseas Joseph DATE OF SERVICE: April 17, 2025 TIME: 10:58 AM PATIENT IDENTITY VERIFICATION COMPLETED USING TWO (2) IDENTIFIERS: Name and Date of confirmed by patient verbally and Name and Date of confirmed by identification band. FALL SCREENING: Has the patient had 2 falls in the last year or 1 fall with injury or currently using an Ambulatory Assistive Device (Walker, Cane, Wheelchair, Crutches, etc.)? No PATIENT GENDER DATA: Assigned male at PATIENT RELEVANT IMPLANT DATA REVIEWED: Not Applicable PATIENT PRESENTS WITH AN IMPLANTABLE OR ATTACHED IMPLEMENTATION TECHNICIAN: No RADIOLOGY DEPARTMENT: CT; Exam(s) Completed: Lower extremity PERIPHERAL IV DATA: Not applicable SIGNED BY: JAUN Chavarria April 17, 2025 10:58 AM documented in this encounter [facility] 04-17-2025 Note HNO ID: [id number] Author: JULIANE DONOVAN RT(R) Service: ? Author Type: Substance Abuse Technician Type: Progress Notes Filed: 05/22/2025 10:23 Note Text: Radiology Service Progress Note PATIENT NAME: Oseas Joseph DATE OF SERVICE: May 22, 2025 TIME: 10:23 AM PATIENT IDENTITY VERIFICATION COMPLETED USING TWO (2) IDENTIFIERS: Name and Date of confirmed by identification band. FALL SCREENING: Has the patient had 2 falls in the last year or 1 fall with injury or currently using an Ambulatory Assistive Device (Walker, Cane, Wheelchair, Crutches, etc.)? Inpatient: Screened on floor PATIENT GENDER DATA: Assigned male at PATIENT RELEVANT IMPLANT DATA REVIEWED: Not Applicable PATIENT PRESENTS WITH AN IMPLANTABLE OR ATTACHED IMPLEMENTATION TECHNICIAN: No RADIOLOGY DEPARTMENT: General X-ray: Exam(s) Completed: Pelvis X-Ray: Pelvis General AP PERIPHERAL IV DATA: Not applicable SIGNED BY: RT Marcin(R) May 22, 2025 10:23 AM [facility] 04-17-2025 Note HNO ID: [id number] Author: BETSY MOCTEZUMA CT Service: Radiology Author Type: Technologist Type: Progress Notes Filed: 04/17/2025 10:58 Note Text: Radiology Service Progress Note PATIENT NAME: Oseas Joseph DATE OF SERVICE: April 17, 2025 TIME: 10:58 AM PATIENT IDENTITY VERIFICATION COMPLETED USING TWO (2) IDENTIFIERS: Name and Date of confirmed by patient verbally and Name and Date of confirmed by identification band. FALL SCREENING: Has the patient had 2 falls in the last year or 1 fall with injury or currently using an Ambulatory Assistive Device (Walker, Cane, Wheelchair, Crutches, etc.)? No PATIENT GENDER DATA: Assigned male at PATIENT RELEVANT IMPLANT DATA REVIEWED: Not Applicable PATIENT PRESENTS WITH AN IMPLANTABLE OR ATTACHED IMPLEMENTATION TECHNICIAN: No RADIOLOGY DEPARTMENT: CT; Exam(s) Completed: Lower extremity PERIPHERAL IV DATA: Not applicable SIGNED BY: JAUN Chavarria April 17, 2025 10:58 AM [facility] 04-17-2025 Telephone encounter Note Peri Kellogg saw this mutual patient in [facility] on 04/17/2025. Oseas Joseph is scheduled for right ROBOTIC ASSISTED TOTAL HIP ARTHROPLASTY with Dr. Rock, on 04/24. I am requesting that Oseas HOLD Xarelto (rivaroxabon) for 3 days for the patient's upcoming procedure. Also do you have any perioperative recommendation regarding his REVLIMID. Please advise. Thank you, Isabel Beard APRN.EVELIN [facility] 04-17-2025 Instructions Isabel Beard APRN.EVELIN - 04/17/2025 8:46 AM EDT Images from the original note were not included. [facility] PATIENT PREOPERATIVE INSTRUCTIONS Gail Rock MD has scheduled you for your procedure at this surgery center: [facility]: [phone] -- [address] [address]. Please read below carefully for your personalized instructions. Arrival Time for Surgery: - The Surgery Center or hospital where you are having surgery will call the afternoon before surgery (or Monday for Monday surgery) with a scheduled arrival time. - If you have not heard by 4 pm, please contact the surgery center above. Dietary Restrictions: - No solid food after midnight. - You may have 12 ounces of clear liquids (water, clear juices such as apple juice or gatorade, carbonated beverages, clear tea, black coffee, jello) until 2 hours before scheduled arrival at facility. - Do not drink any alcohol after midnight the night before your surgery. - no milk/creamer or other additives like honey - no pulp juices Medications: Pre-Surgery Med Instructions Medication Instructions gabapentin (NEURONTIN) 300 mg capsule If you normally take this medication in the morning, take the morning of surgery. escitalopram oxalate (LEXAPRO) 5 mg tablet If you normally take this medication in the morning, take the morning of surgery. REVLIMID 5 mg capsule Will confirm instructions with prescribing provider rivaroxaban (XARELTO) 20 mg tablet Plan 3 day hold, last dose on 04/20 donepezil (ARICEPT) 10 mg tablet If you normally take this medication in the morning, take the morning of surgery. acyclovir (ZOVIRAX) 400 mg tablet Do not take the day of surgery acetaminophen (TYLENOL EXTRA STRENGTH) 500 mg tablet Continue as needed cyanocobalamin (VITAMIN B-12) 1,000 mcg tab Do not take the day of surgery folic acid 800 mcg tablet Do not take the day of surgery glimepiride (AMARYL) 2 mg tablet Do not take the day of surgery clonazePAM (KLONOPIN) 0.5 mg tablet If you normally take this medication in the morning, take the morning of surgery. atorvastatin (LIPITOR) 10 mg tablet If you normally take this medication in the morning, take the morning of surgery. losartan (COZAAR) 50 mg tablet If you normally take this medication in the morning, take the morning of surgery. If you start any new medications after today's visit, please contact the surgeon's office. If you are currently using a [id number] injectable or oral medication for diabetes or weight loss such as Dulaglutide (Trulicity), Exenatide (Byetta, Bydureon), Liraglutide (Victoza, Saxenda), Semaglutide (Ozempic, Wegovy, Rybelsus), or Tirzepatide (Mounjaro), the medicine should be stopped at least 7 days before surgery. These medicines can cause food to remain in your stomach for a very long time and increase the risks from surgery and anesthesia. Not stopping the medication for a long enough time may result in your surgery being rescheduled. If you take any medications for erectile dysfunction-Cialis (Tadalafil), Levitra, Staxyn (Vardenafil) Viagra (Sildenenafil please do not take these for 48 hours before surgery. If you start any new medications after today's visit, please contact the surgeon's office. Apply 1/2 inch of the mupirocin ointment with a Q-tip to both nostrils in the morning and afternoon for 5 consecutive days before surgery. If you are scheduled for a pre-op Covid-19 test, please do not apply mupirocin the morning of your test. You may apply it right after the test instead. Blood Thinning Medications: - Stop NSAIDS (Ibuprofen, Advil, Aleve, Motrin, Celebrex, Mobic, etc.) 7 days before surgery, as directed by your surgeon. - Stop Aspirin 7 days before surgery, as directed by your surgeon. - Stop herbals and dietary supplements 7 days before surgery. - You may take Tylenol (Acetaminophen) or any of your pain medications that do not contain aspirin or NSAIDS as needed. Important Reminders: - If you use CPAP/BIPAP, bring the machine with you to the surgery center. - If you are prescribed inhalers for breathing, continue using them. If you are on dialysis, please check with your dialysis center or music adapter to see if any adjustments need to be made to your schedule for the week of your surgery - Candy, mints, and tobacco products are NOT permitted the morning of surgery. - Hearing aids, dentures and glasses may be worn the morning of surgery. - NO jewelry, body piercings, makeup, hairpins or contacts are to be worn the day of surgery. If you develop symptoms such as a fever, cold, or flu, or have other changes to your health within TWO DAYS of scheduled surgery or the morning of surgery, please contact the surgery center above. Personal Belongings: -Please have photo ID and insurance cards. -If you do not have a copy of advance directives on file with us, please bring a copy with you on the day of surgery. - Leave ALL valuables and money at home or with family members. Please be aware that emergency situations arise, which may delay or change your surgical time. If this happens, we will notify you as soon as possible and regret any inconvenience. If you already have an Advance Directive, please fax a copy to [phone] or email to for it to be added to your chart. If you do not have an Advance Directive, you can find the appropriate form and more information at [email or web address]. We recommend that you complete the Advance Directive form found on the website and bring it with you the day of your surgery. It can be witnessed and scanned into your chart that day. Isabel Beard APRN.EVELIN documented in this encounter [facility] 04-17-2025 History and physical note Images from the original note were not included. [facility] HISTORY AND PHYSICAL EXAMINATION SERVICE DATE: 04/17/2025 SERVICE TIME: 8:44 AM PRIMARY CARE PHYSICIAN: Connie Lugo MD Assessment Patient has the following medical conditions which may affect mare-operative course: 1. Mixed hyperlipidemia (E78.2) - Compliant with atorvastatin. Follows with PCP. 2. Primary hypertension (I10) - Managed with losartan. Stable. Follows with PCP. Last 3 Encounter BP Readings: Date: BP: 04/17/2025 156/80 04/08/2025 136/78 04/03/2025 100/55 3. Right bundle branch block (I45.10) - Patient reports heart rate typically in the 50's. Denies Shortness of Breath, Chest pain, dizziness, syncope. 4. History of pulmonary embolism (Z86.711) - PE December of 2022. Currently On Xarelto; Plan to hold medication for 3 days prior to surgery, with the last dose on 04/20. -Follows with hematology/oncology. Visit (SP) Office with Connie Mccain DO (04/03/2025) 5. Type 2 diabetes mellitus without complication, without long-term current use of insulin (HCC) (E11.9) - Managed with glyburide. Reports blood sugars typically under 150. Follows with PCP. 6. Multiple myeloma not having achieved remission (HCC) (C90.00) - S/p stem cell transplant two years .Currently On Revlimid daily. - Recent labs show stable condition; next bone marrow biopsy scheduled for July 2025. -Follows with hematology/oncology. Visit (SP) Office with Connie Mccain DO (04/03/2025) Latest Ref Rng & Units 02/06/2025 03/06/2025 04/03/2025 CBC WBC 3.70 - 11.00 k/uL 3.61 3.43 3.24 RBC 4.20 - 6.00 m/uL 4.31 4.12 3.56 Hemoglobin 13.0 - 17.0 g/dL 13.6 12.8 11.2 Hematocrit 39.0 - 51.0 % 40.8 38.5 33.4 MCV 80.0 - 100.0 fL 94.7 93.4 93.8 MCH 26.0 - 34.0 pg 31.6 31.1 31.5 MCHC 30.5 - 36.0 g/dL 33.3 33.2 33.5 RDW-CV 11.5 - 15.0 % 13.8 14.1 14.2 Platelet Count 150 - 400 k/uL 157 148 179 MPV 9.0 - 12.7 fL 9.4 9.4 9.5 Baso% % 1.4 0.9 1.0 Abs Neut (ANC) 1.45 - 7.50 k/uL 1.96 1.79 1.72 Abs Lymph 1.00 - 4.00 k/uL 0.93 0.90 0.68 Abs Morton <0.87 k/uL 0.46 0.50 0.32 Abs Eosin <0.46 k/uL 0.19 0.20 0.49 Abs Baso <0.11 k/uL 0.05 0.03 0.03 NRBC /100 WBC 0.0 0.0 0.0 Ovalocytes Few Platelet Estimate Adequate 7. Lewy body dementia, unspecified dementia severity, unspecified whether behavioral, psychotic, or mood disturbance or anxiety (HCC) (G31.83) 8. Alzheimer's disease (HCC) (G30.9) - Diagnosed approximately 6 months ago. Managed with donepezil. [facility] with Gilbert Ramirez APRN.PATTERNMAKER APPRENTICE WOOD (04/14/2025) ANESTHESIA FINDINGS: Intubation History: No history of difficult intubation. No abnormal airway history Significant Anesthesia Considerations: none Airway History: No history of difficult airway No abnormal airway history Amado Activity Status Index: METS: Walk indoors, such as around the house (1.75 METs) Do light work around the house, such as dusting or washing dishes (2.70 METs) Take care of self; that is eating, dressing, bathing, using the toilet (2.75 METs) Walk a block or two on level ground (2.75 METs) Do moderate work around the house, such as vacuuming, sweeping floors, or carrying in groceries (3.50 METs) Do yardwork, such as raking leaves, weeding, or pushing a power mower (4.50 METs) Climb a flight of stairs or walk up a hill (5.50 METs) DASI Score: 23.45 Patient denies any chest pain or undue shortness of breath with the above physical activity. Clinical Frailty Scale: 3. Well, with treated comorbid disease STOP-Bang Score: Snores loudly Has or is being treated for high blood pressure Patient over 50 years old Male patient Denies feeling tired, fatigued, or sleepy during the daytime Has not been observed to stop breathing or choking/gasping during sleep BMI less than or equal to 35 kg/m^2 STOP-Bang Score: 4 [id number] Score: Age: 65-74 Sex: male CHF history: No Hypertension history: Yes Stroke/TIA/thromboembolism history: Yes Vascular disease history: No Diabetes history: Yes [id number] Score: 5 I - PHYSICAL EVALUATION AIRWAY Patient intubated: No. Tracheostomy tube not present Mallampati: I. TM distance: >3 FB. Neck ROM: full ROM without neurological symptoms. Mouth opening: adequate. Short neck: no. Thick neck: no Mcdermott present: no Lip Bite Test: I Microretrognathia/Micronagthia/Rec essed Chin: No DENTAL Dental findings: teeth intact. Additional comments: CAPS. II - ANESTHESIA PLAN Anesthetic plan additional comments: *PACC/TCI - anesthesia choice. Beta Jamaal Monitoring Plan Post Procedure Analgesic Plan Prepared for Surgery: optimally prepared for surgery, pending [see comment]. EKG reviewed. 04/03-CBC, CMP reviewed and acceptable. Labs pending. CONSULTS: Patient does not require consults for optimization at this time Planned Anesthetic: anesthesia choice The Following Tests/Procedures Have Been Initiated: Orders Placed This Encounter Hemoglobin A1C Standing Status: Future Expected Date: 04/17/2025 Expiration Date: 07/17/2025 Iron and TIBC Standing Status: Future Expected Date: 04/17/2025 Expiration Date: 07/17/2025 Ferritin Standing Status: Future Expected Date: 04/17/2025 Expiration Date: 07/17/2025 Type and Screen, 30 day Standing Status: Future Expected Date: 04/17/2025 Expiration Date: 07/17/2025 Scheduling Instructions: A 30-day Type and Screen test has been ordered for you. This should be scheduled to be collected no earlier than 29 days before your scheduled procedure. If you receive blood products (red blood cells, platelets, plasma, cryoprecipitate) at any point before your procedure or are a female and become , please inform your provider. This test will be canceled, and a standard type and screen will need to be ordered to be collected within 3 days of your procedure. [facility] or Procedure:: [place] Status of surgery/procedure:: Scheduled Date of surgery/procedure:: 04/24/2025 mupirocin (BACTROBAN) 2 % ointment Sig: two times a day for 5 days. Apply 0.5 inch with cotton swab (Q-tip) to each nostril in the morning and evening for 5 days prior to and including day of surgery. Dispense: 22 g Refill: 0 ECG (IN OFFICE) REASON FOR VISIT: Oseas Joseph is a 74 year old male who is scheduled for ROBOTIC ASSISTED TOTAL HIP ARTHROPLASTY at the request of Dr. Gail Rock for consultation. My final recommendation will be communicated back to the requesting physician by way of shared medical record or letter. Subjective The patient has the following: COVID-19 Immunization Status Current Care Gaps Covid-19 Vaccine (11 - Moderna risk season) Overdue since 04/03/2025 10/03/2024 Imm Admin: COVID-19 vaccine, age 12+ yr (MODERNA) 03/13/2024 Imm Admin: COVID-19 vaccine, age 12+ yr, season (PFIZER-BIONTECH) 12/12/2023 Imm Admin: COVID-19 vaccine, age 12+ yr, season (MODERNA) Only the first 3 history entries have been loaded, but more history exists. CHIEF COMPLAINT: pre op HPI: Oseas Joseph is a 74-year-old male presenting for preoperative evaluation prior to right total hip replacement surgery scheduled on 04/24. Oseas reports a one-year history of right hip pain described as sharp, achy, and dull, which has progressively worsened. The pain is exacerbated by activity, particularly when putting on socks or pants, and persists throughout the day. Pain radiates into right leg. He takes Tylenol as needed for pain management. REVIEW OF SYSTEMS: General: No weight loss, malaise or fevers. Neurological: Negative for: dementia, headaches, impaired sensorium, peripheral neuropathy, seizures, TIA and strokes. Respiratory: Negative for: asthma, bronchitis, COPD, current cough, bronchodilator used daily for the last 3 months, dyspnea, home oxygen, orthopnea, pneumonia within 6 weeks, tobacco use, URI < 2 weeks and obstructive sleep apnea. Cardiovascular: Denies dizziness or syncope. Positive for: anticoagulation therapy, arrhythmia (sinus etta, Right BBB), DVT/PE, hyperlipidemia and hypertension Negative for: abdominal aortic aneurysm, AICD/PPM, angina, atrial fibrillation, CAD, chest pain, CHF, congenital heart defect, recent NV, murmur/valvular heart disease, PTCA, PVD, open heart surgery and valve surgery. GI: Negative for: abdominal pain, GERD, GI bleed <30 days, hepatitis, liver disease, nausea and vomiting. : Denies kidney disease Negative for: on dialysis, dysuria, frequent urination, hematuria, renal failure and urinary tract infection. Endocrine: Positive for: diabetes mellitus. Patient's diabetes mellitus is controlled by oral agents. Negative for: hyperthyroidism and hypothyroidism. Hematology: Positive for: anemia, bruises/bleeds easily and chronic anti-coagulation/platelet meds. Oncology: Multiple Myeloma . No history of CA metastasis, chemo within 30 days, or radiotherapy within 90 days. No history of oncological symptoms or problems. Psych: No history of psychiatric symptoms or problems. Musculoskeletal: See HPI. Skin: Negative for lesions, rash and itching. Implanted Devices: No implanted devices. PAST MEDICAL HISTORY Diagnosis Date Arthritis Chronic diarrhea Malignant melanoma (HCC) Mixed hyperlipidemia Multiple myeloma not having achieved remission (HCC) 10/26/2022 Other hyperlipidemia 04/17/2023 Primary hypertension 04/17/2023 Pulmonary embolism (HCC) Right bundle branch block 04/17/2023 Type 2 diabetes mellitus, without long-term current use of insulin (HCC) 04/17/2023 PAST SURGICAL HISTORY Procedure Laterality Date PAST SURGICAL HISTORY OF Colonoscopy REPAIR INCISIONAL HERNIA,REDUCIBLE 8th grade SKIN BX, 1 LESION 06/2022 FAMILY HISTORY Problem Relation Age of Onset Diabetes Mother Hypertension Mother Renal Disease Mother Hypertension Father Diabetes Father Hypertension Sister Diabetes Sister No Known Problems Sister No Known Problems Sister No Known Problems Sister No Known Problems Sister Heart Sister Hypertension Brother Diabetes Brother Hyperlipidemia Brother Heart Brother Hypertension Maternal Grandmother Diabetes Maternal Grandmother Colon Cancer Paternal Grandmother Hypertension Paternal Grandfather Anesthesia Problems No Family History Social History Tobacco Use Smoking status: Never Smokeless tobacco: Never Vaping Use Vaping status: Never Used Substance Use Topics Alcohol use: Not Currently Comment: social Drug use: Never Prior to Admission medications as of 04/17/25 0843 Medication Sig Last Dose Taking gabapentin (NEURONTIN) 300 mg capsule Take 1 capsule by mouth daily at bedtime for 90 days. Yes escitalopram oxalate (LEXAPRO) 5 mg tablet Take 1 tablet by mouth once daily. Yes REVLIMID 5 mg capsule TAKE 1 CAPSULE BY MOUTH DAILY FOR 28 DAYS Yes rivaroxaban (XARELTO) 20 mg tablet TAKE 1 TABLET BY MOUTH ONCE DAILY WITH SUPPER Yes donepezil (ARICEPT) 10 mg tablet Take 1 tablet by mouth daily with breakfast. Yes acyclovir (ZOVIRAX) 400 mg tablet Take 1 tablet by mouth two times a day. Yes acetaminophen (TYLENOL EXTRA STRENGTH) 500 mg tablet Take 1,000 mg by mouth every 8 hours as needed. Yes cyanocobalamin (VITAMIN B-12) 1,000 mcg tab Take 2,000 mcg by mouth once daily. Yes folic acid 800 mcg tablet Take 400 mcg by mouth once daily. Yes glimepiride (AMARYL) 2 mg tablet Take 1 tablet by mouth daily with breakfast. Take 2 mg twice a day. May increase to 4mg BID if your PCP requests so. Yes clonazePAM (KLONOPIN) 0.5 mg tablet Take 0.5 mg by mouth once daily. Yes atorvastatin (LIPITOR) 10 mg tablet Take 10 mg by mouth once daily. Yes losartan (COZAAR) 50 mg tablet Take 50 mg by mouth once daily. Yes mupirocin (BACTROBAN) 2 % ointment two times a day for 5 days. Apply 0.5 inch with cotton swab (Q-tip) to each nostril in the morning and evening for 5 days prior to and including day of surgery. ondansetron (ZOFRAN) 8 mg tablet Take 1 tablet by mouth every 8 hours as needed for nausea/vomiting. Patient not taking: Reported on 04/17/2025 No medication comments found. ALLERGIES No Known Allergies Objective PHYSICAL EXAM: General: alert and oriented and healthy appearance. Pertinent negatives noted - not distressed. Skin: normal color, no rash or lesions. HEENT: EOM intact, pupils equal round and pupils reactive to light. Pertinent negatives noted - no carotid bruit. Cardiovascular: regular rate and rhythm, normal S1 and S2, no rub, murmurs, or gallop. Respiratory: normal breath sounds, no wheezes or crackles. No chest wall deformity or tenderness. Abdomen: bowel sounds present and soft. Pertinent negatives noted - not tender. Extremities: no deformity, no edema or tenderness, no joint swelling or clubbing. Neurological: normal cognition and motor skills. Gait normal. No weakness or sensory deficit. PAIN ASSESSMENT: Pain Pain Level: 6 Pain Location: Hip-Right Description: Stabbing, Radiating Frequency: Intermittent VITALS: BP 156/80 Pulse 55 Temp (Src) 98.5 (Oral) Resp 18 Ht 6' 0 (1.83m) Wt 187 lb 2.7 oz (84.9kg) SpO2 99% BMI 25.38 kg/(m^2). Diagnostic tests reviewed for today's visit: Lab Value Units Date High Low HB 11.2 g/dL 04/03/2025 17.0 13.0 HCT 33.4 % 04/03/2025 51.0 39.0 WBC 3.24 k/uL 04/03/2025 11.00 3.70 PLT 179 k/uL 04/03/2025 400 150 NA 143 mmol/L 04/03/2025 144 136 K 3.6 mmol/L 04/03/2025 5.1 3.7 GLUC 168 mg/dL 04/03/2025 99 74 BUN 22 mg/dL 04/03/2025 24 9 CREAT 1.47 mg/dL 04/03/2025 1.22 0.73 PTSEC 12.7 sec 12/24/2024 <13.1 INR 1.2 no uni* 12/24/2024 1.3 0.9 APTT 27.8 sec 12/24/2024 32.4 23.0 ALT 21 U/L 04/03/2025 54 10 AST 15 U/L 04/03/2025 40 14 TBILI 0.4 mg/dL 04/03/2025 1.3 0.2 TSH No results within date range. Lab Value Units Date High Low HCGQT No results within date range. UHCG No results within date range. HCG, BODY* No results within date range. Lab Value Units Date High Low ABORHD No results within date range. ABSCREEN No results within date range. Hemoglobin A1C (%) Date Value 03/10/2023 7.8 No results found for this or any previous visit (from the past 8760 hours). Recent Results (from the past 37543 hours) ECHO Collection Time: 04/17/23 8:52 AM Impression CONCLUSIONS: - Exam indication: Pre-op stem cell transplant - The left ventricle is normal in size. There is mild concentric left ventricular hypertrophy. Left ventricular systolic function is normal. EF = 56 5% (2D biplane) Normal left ventricular diastolic function. GLS = (-13.6%). - The right ventricle is normal in size. Right ventricular systolic function is normal. - The patient has not had a prior [facility] echocardiographic exam for comparison. * * * Final * * * Instructions Given to Patient: Instructions located in the after visit summary. Patient given verbal and written preop instructions and voices comprehension and compliance. Recording using [email or web address] software for draft documentation of the visit was discussed with the patient/authorized sales representative; all questions welcomed and answered. Patient/authorized sales representative agreed to proceed SIGNATURE: Isabel Beard APRN.CNP PATIENT NAME: Oseas Joseph DATE: 04/17/2025 TIME: 8:44 AM PAGER/CONTACT #: [facility] 04-17-2025 History and physical note Images from the original note were not included. [facility] HISTORY AND PHYSICAL EXAMINATION SERVICE DATE: 04/17/2025 SERVICE TIME: 8:44 AM PRIMARY CARE PHYSICIAN: Connie Lugo MD Assessment Patient has the following medical conditions which may affect mare-operative course: 1. Mixed hyperlipidemia (E78.2) - Compliant with atorvastatin. Follows with PCP. 2. Primary hypertension (I10) - Managed with losartan. Stable. Follows with PCP. Last 3 Encounter BP Readings: Date: BP: 04/17/2025 156/80 04/08/2025 136/78 04/03/2025 100/55 3. Right bundle branch block (I45.10) - Patient reports heart rate typically in the 50's. Denies Shortness of Breath, Chest pain, dizziness, syncope. 4. History of pulmonary embolism (Z86.711) - PE December of 2022. Currently On Xarelto; Plan to hold medication for 3 days prior to surgery, with the last dose on 04/20. -Follows with hematology/oncology. Visit (SP) Office with Connie Mccain DO (04/03/2025) 5. Type 2 diabetes mellitus without complication, without long-term current use of insulin (HCC) (E11.9) - Managed with glyburide. Reports blood sugars typically under 150. Follows with PCP. 6. Multiple myeloma not having achieved remission (HCC) (C90.00) - S/p stem cell transplant two years .Currently On Revlimid daily. - Recent labs show stable condition; next bone marrow biopsy scheduled for July 2025. -Follows with hematology/oncology. Visit (SP) Office with Connie Mccain DO (04/03/2025) Latest Ref Rng & Units 02/06/2025 03/06/2025 04/03/2025 CBC WBC 3.70 - 11.00 k/uL 3.61 3.43 3.24 RBC 4.20 - 6.00 m/uL 4.31 4.12 3.56 Hemoglobin 13.0 - 17.0 g/dL 13.6 12.8 11.2 Hematocrit 39.0 - 51.0 % 40.8 38.5 33.4 MCV 80.0 - 100.0 fL 94.7 93.4 93.8 MCH 26.0 - 34.0 pg 31.6 31.1 31.5 MCHC 30.5 - 36.0 g/dL 33.3 33.2 33.5 RDW-CV 11.5 - 15.0 % 13.8 14.1 14.2 Platelet Count 150 - 400 k/uL 157 148 179 MPV 9.0 - 12.7 fL 9.4 9.4 9.5 Baso% % 1.4 0.9 1.0 Abs Neut (ANC) 1.45 - 7.50 k/uL 1.96 1.79 1.72 Abs Lymph 1.00 - 4.00 k/uL 0.93 0.90 0.68 Abs Morton <0.87 k/uL 0.46 0.50 0.32 Abs Eosin <0.46 k/uL 0.19 0.20 0.49 Abs Baso <0.11 k/uL 0.05 0.03 0.03 NRBC /100 WBC 0.0 0.0 0.0 Ovalocytes Few Platelet Estimate Adequate 7. Lewy body dementia, unspecified dementia severity, unspecified whether behavioral, psychotic, or mood disturbance or anxiety (HCC) (G31.83) 8. Alzheimer's disease (HCC) (G30.9) - Diagnosed approximately 6 months ago. Managed with donepezil. [facility] with Gilbert Ramirez APRN.PATTERNMAKER [employer]PR[employer]ICE [employer] (04/14/2025) ANESTHESIA FINDINGS: Intubation History: No history of difficult intubation. No abnormal airway history Significant Anesthesia Considerations: none Airway History: No history of difficult airway No abnormal airway history Amado Activity Status Index: METS: Walk indoors, such as around the house (1.75 METs) Do light work around the house, such as dusting or washing dishes (2.70 METs) Take care of self; that is eating, dressing, bathing, using the toilet (2.75 METs) Walk a block or two on level ground (2.75 METs) Do moderate work around the house, such as vacuuming, sweeping floors, or carrying in groceries (3.50 METs) Do yardwork, such as raking leaves, weeding, or pushing a power mower (4.50 METs) Climb a flight of stairs or walk up a hill (5.50 METs) DASI Score: 23.45 Patient denies any chest pain or undue shortness of breath with the above physical activity. Clinical Frailty Scale: 3. Well, with treated comorbid disease STOP-Bang Score: Snores loudly Has or is being treated for high blood pressure Patient over 50 years old Male patient Denies feeling tired, fatigued, or sleepy during the daytime Has not been observed to stop breathing or choking/gasping during sleep BMI less than or equal to 35 kg/m^2 STOP-Bang Score: 4 [id number] Score: Age: 65-74 Sex: male CHF history: No Hypertension history: Yes Stroke/TIA/thromboembolism history: Yes Vascular disease history: No Diabetes history: Yes [id number] Score: 5 I - PHYSICAL EVALUATION AIRWAY Patient intubated: No. Tracheostomy tube not present Mallampati: I. TM distance: >3 FB. Neck ROM: full ROM without neurological symptoms. Mouth opening: adequate. Short neck: no. Thick neck: no Mcdermott present: no Lip Bite Test: I Microretrognathia/Micronagthia/Rec essed Chin: No DENTAL Dental findings: teeth intact. Additional comments: CAPS. II - ANESTHESIA PLAN Anesthetic plan additional comments: *PACC/TCI - anesthesia choice. Beta Jamaal Monitoring Plan Post Procedure Analgesic Plan Prepared for Surgery: optimally prepared for surgery, pending [see comment]. EKG reviewed. 04/03-CBC, CMP reviewed and acceptable. Labs pending. CONSULTS: Patient does not require consults for optimization at this time Planned Anesthetic: anesthesia choice The Following Tests/Procedures Have Been Initiated: Orders Placed This Encounter Hemoglobin A1C Standing Status: Future Expected Date: 04/17/2025 Expiration Date: 07/17/2025 Iron and TIBC Standing Status: Future Expected Date: 04/17/2025 Expiration Date: 07/17/2025 Ferritin Standing Status: Future Expected Date: 04/17/2025 Expiration Date: 07/17/2025 Type and Screen, 30 day Standing Status: Future Expected Date: 04/17/2025 Expiration Date: 07/17/2025 Scheduling Instructions: A 30-day Type and Screen test has been ordered for you. This should be scheduled to be collected no earlier than 29 days before your scheduled procedure. If you receive blood products (red blood cells, platelets, plasma, cryoprecipitate) at any point before your procedure or are a female and become , please inform your provider. This test will be canceled, and a standard type and screen will need to be ordered to be collected within 3 days of your procedure. [facility] Surgery or Procedure:: [place] Status of surgery/procedure:: Scheduled Date of surgery/procedure:: 04/24/2025 mupirocin (BACTROBAN) 2 % ointment Sig: two times a day for 5 days. Apply 0.5 inch with cotton swab (Q-tip) to each nostril in the morning and evening for 5 days prior to and including day of surgery. Dispense: 22 g Refill: 0 ECG (IN OFFICE) REASON FOR VISIT: Oseas Joseph is a 74 year old male who is scheduled for ROBOTIC ASSISTED TOTAL HIP ARTHROPLASTY at the request of Dr. Gail Rock for consultation. My final recommendation will be communicated back to the requesting physician by way of shared medical record or letter. Subjective The patient has the following: COVID-19 Immunization Status Current Care Gaps Covid-19 Vaccine (11 - Moderna risk season) Overdue since 04/03/2025 10/03/2024 Imm Admin: COVID-19 vaccine, age 12+ yr (MODERNA) 03/13/2024 Imm Admin: COVID-19 vaccine, age 12+ yr, season (PFIZER-BIONTECH) 12/12/2023 Imm Admin: COVID-19 vaccine, age 12+ yr, season (MODERNA) Only the first 3 history entries have been loaded, but more history exists. CHIEF COMPLAINT: pre op HPI: Oseas Joseph is a 74-year-old male presenting for preoperative evaluation prior to right total hip replacement surgery scheduled on 04/24. Oseas reports a one-year history of right hip pain described as sharp, achy, and dull, which has progressively worsened. The pain is exacerbated by activity, particularly when putting on socks or pants, and persists throughout the day. Pain radiates into right leg. He takes Tylenol as needed for pain management. REVIEW OF SYSTEMS: General: No weight loss, malaise or fevers. Neurological: Negative for: dementia, headaches, impaired sensorium, peripheral neuropathy, seizures, TIA and strokes. Respiratory: Negative for: asthma, bronchitis, COPD, current cough, bronchodilator used daily for the last 3 months, dyspnea, home oxygen, orthopnea, pneumonia within 6 weeks, tobacco use, URI < 2 weeks and obstructive sleep apnea. Cardiovascular: Denies dizziness or syncope. Positive for: anticoagulation therapy, arrhythmia (sinus teta, Right BBB), DVT/PE, hyperlipidemia and hypertension Negative for: abdominal aortic aneurysm, AICD/PPM, angina, atrial fibrillation, CAD, chest pain, CHF, congenital heart defect, recent NV, murmur/valvular heart disease, PTCA, PVD, open heart surgery and valve surgery. GI: Negative for: abdominal pain, GERD, GI bleed <30 days, hepatitis, liver disease, nausea and vomiting. : Denies kidney disease Negative for: on dialysis, dysuria, frequent urination, hematuria, renal failure and urinary tract infection. Endocrine: Positive for: diabetes mellitus. Patient's diabetes mellitus is controlled by oral agents. Negative for: hyperthyroidism and hypothyroidism. Hematology: Positive for: anemia, bruises/bleeds easily and chronic anti-coagulation/platelet meds. Oncology: Multiple Myeloma . No history of CA metastasis, chemo within 30 days, or radiotherapy within 90 days. No history of oncological symptoms or problems. Psych: No history of psychiatric symptoms or problems. Musculoskeletal: See HPI. Skin: Negative for lesions, rash and itching. Implanted Devices: No implanted devices. PAST MEDICAL HISTORY Diagnosis Date Arthritis Chronic diarrhea Malignant melanoma (HCC) Mixed hyperlipidemia Multiple myeloma not having achieved remission (HCC) 10/26/2022 Other hyperlipidemia 04/17/2023 Primary hypertension 04/17/2023 Pulmonary embolism (HCC) Right bundle branch block 04/17/2023 Type 2 diabetes mellitus, without long-term current use of insulin (HCC) 04/17/2023 PAST SURGICAL HISTORY Procedure Laterality Date PAST SURGICAL HISTORY OF Colonoscopy REPAIR INCISIONAL HERNIA,REDUCIBLE 8th grade SKIN BX, 1 LESION 06/2022 FAMILY HISTORY Problem Relation Age of Onset Diabetes Mother Hypertension Mother Renal Disease Mother Hypertension Father Diabetes Father Hypertension Sister Diabetes Sister No Known Problems Sister No Known Problems Sister No Known Problems Sister No Known Problems Sister Heart Sister Hypertension Brother Diabetes Brother Hyperlipidemia Brother Heart Brother Hypertension Maternal Grandmother Diabetes Maternal Grandmother Colon Cancer Paternal Grandmother Hypertension Paternal Grandfather Anesthesia Problems No Family History Social History Tobacco Use Smoking status: Never Smokeless tobacco: Never Vaping Use Vaping status: Never Used Substance Use Topics Alcohol use: Not Currently Comment: social Drug use: Never Prior to Admission medications as of 04/17/25 0843 Medication Sig Last Dose Taking gabapentin (NEURONTIN) 300 mg capsule Take 1 capsule by mouth daily at bedtime for 90 days. Yes escitalopram oxalate (LEXAPRO) 5 mg tablet Take 1 tablet by mouth once daily. Yes REVLIMID 5 mg capsule TAKE 1 CAPSULE BY MOUTH DAILY FOR 28 DAYS Yes rivaroxaban (XARELTO) 20 mg tablet TAKE 1 TABLET BY MOUTH ONCE DAILY WITH SUPPER Yes donepezil (ARICEPT) 10 mg tablet Take 1 tablet by mouth daily with breakfast. Yes acyclovir (ZOVIRAX) 400 mg tablet Take 1 tablet by mouth two times a day. Yes acetaminophen (TYLENOL EXTRA STRENGTH) 500 mg tablet Take 1,000 mg by mouth every 8 hours as needed. Yes cyanocobalamin (VITAMIN B-12) 1,000 mcg tab Take 2,000 mcg by mouth once daily. Yes folic acid 800 mcg tablet Take 400 mcg by mouth once daily. Yes glimepiride (AMARYL) 2 mg tablet Take 1 tablet by mouth daily with breakfast. Take 2 mg twice a day. May increase to 4mg BID if your PCP requests so. Yes clonazePAM (KLONOPIN) 0.5 mg tablet Take 0.5 mg by mouth once daily. Yes atorvastatin (LIPITOR) 10 mg tablet Take 10 mg by mouth once daily. Yes losartan (COZAAR) 50 mg tablet Take 50 mg by mouth once daily. Yes mupirocin (BACTROBAN) 2 % ointment two times a day for 5 days. Apply 0.5 inch with cotton swab (Q-tip) to each nostril in the morning and evening for 5 days prior to and including day of surgery. ondansetron (ZOFRAN) 8 mg tablet Take 1 tablet by mouth every 8 hours as needed for nausea/vomiting. Patient not taking: Reported on 04/17/2025 No medication comments found. ALLERGIES No Known Allergies Objective PHYSICAL EXAM: General: alert and oriented and healthy appearance. Pertinent negatives noted - not distressed. Skin: normal color, no rash or lesions. HEENT: EOM intact, pupils equal round and pupils reactive to light. Pertinent negatives noted - no carotid bruit. Cardiovascular: regular rate and rhythm, normal S1 and S2, no rub, murmurs, or gallop. Respiratory: normal breath sounds, no wheezes or crackles. No chest wall deformity or tenderness. Abdomen: bowel sounds present and soft. Pertinent negatives noted - not tender. Extremities: no deformity, no edema or tenderness, no joint swelling or clubbing. Neurological: normal cognition and motor skills. Gait normal. No weakness or sensory deficit. PAIN ASSESSMENT: Pain Pain Level: 6 Pain Location: Hip-Right Description: Stabbing, Radiating Frequency: Intermittent VITALS: BP 156/80 Pulse 55 Temp (Src) 98.5 (Oral) Resp 18 Ht 6' 0 (1.83m) Wt 187 lb 2.7 oz (84.9kg) SpO2 99% BMI 25.38 kg/(m^2). Diagnostic tests reviewed for today's visit: Lab Value Units Date High Low HB 11.2 g/dL 04/03/2025 17.0 13.0 HCT 33.4 % 04/03/2025 51.0 39.0 WBC 3.24 k/uL 04/03/2025 11.00 3.70 PLT 179 k/uL 04/03/2025 400 150 NA 143 mmol/L 04/03/2025 144 136 K 3.6 mmol/L 04/03/2025 5.1 3.7 GLUC 168 mg/dL 04/03/2025 99 74 BUN 22 mg/dL 04/03/2025 24 9 CREAT 1.47 mg/dL 04/03/2025 1.22 0.73 PTSEC 12.7 sec 12/24/2024 <13.1 INR 1.2 no uni* 12/24/2024 1.3 0.9 APTT 27.8 sec 12/24/2024 32.4 23.0 ALT 21 U/L 04/03/2025 54 10 AST 15 U/L 04/03/2025 40 14 TBILI 0.4 mg/dL 04/03/2025 1.3 0.2 TSH No results within date range. Lab Value Units Date High Low HCGQT No results within date range. UHCG No results within date range. HCG, BODY* No results within date range. Lab Value Units Date High Low ABORHD No results within date range. ABSCREEN No results within date range. Hemoglobin A1C (%) Date Value 03/10/2023 7.8 No results found for this or any previous visit (from the past 8760 hours). Recent Results (from the past 47846 hours) ECHO Collection Time: 04/17/23 8:52 AM Impression CONCLUSIONS: - Exam indication: Pre-op stem cell transplant - The left ventricle is normal in size. There is mild concentric left ventricular hypertrophy. Left ventricular systolic function is normal. EF = 56 5% (2D biplane) Normal left ventricular diastolic function. GLS = (-13.6%). - The right ventricle is normal in size. Right ventricular systolic function is normal. - The patient has not had a prior CC echocardiographic exam for comparison. * * * Final * * * Instructions Given to Patient: Instructions located in the after visit summary. Patient given verbal and written preop instructions and voices comprehension and compliance. Recording using ambient [employer] software for draft documentation of the visit was discussed with the patient/authorized sales representative; all questions welcomed and answered. Patient/authorized sales representative agreed to proceed SIGNATURE: Isabel Beard APRN.CNP PATIENT NAME: Oseas Joseph DATE: 04/17/2025 TIME: 8:44 AM PAGER/CONTACT #: documented in this encounter [facility] 04-16-2025 History of Present illness Narrative Images from the original note were not included. CONSULT ORTHOPAEDIC: HIP PRIMARY CARE PHYSICIAN: Connie Lugo MD REFERRING PROVIDER: No referring provider defined for this encounter. ASSESSMENT & PLAN Impression: Right Hip Severe Degenerative Osteoarthritis, Primary Diagnoses: (M16.11) Primary osteoarthritis of right hip (primary encounter diagnosis) (Z01.818) Preoperative testing (Z86.718) History of DVT of lower extremity (C90.00) Multiple myeloma, without mention of having achieved remission (HCC) (E11.9) Controlled type 2 diabetes mellitus without complication, without long-term current use of insulin (HCC) Based upon the evaluation today and after discussions with Oseas Joseph, Oseas Joseph has significant, worsening pain at the hip. This pain is increased with activity and weight bearing, and interferes with activities of daily living. These symptoms have continued despite a number of non-surgical measures, including a trial of oral pain medication (for at least 12 weeks). At this point, the patient will not benefit from further PT due to the severity of their condition. The patient's physical examination is consistent with limitations in range of motion, pain with passive range of motion, and an antalgic gait. These examination findings are corroborated by imaging findings of joint space narrowing, periarticular osteophyte formation, and subchondral sclerosis. The patient has been treated by the practice and all reasonable treatments have failed to control the disease, which causes significant pain and limits activities of daily living. The patient has failed conservative treatment and joint replacement surgery was discussed and agreed upon by both provider and patient. The patient has elected to proceed with surgical management to improve function and relieve pain refractory to non-surgical measures: Right Primary Total Hip Arthroplasty as evidenced by progressive symptoms. Progressive symptoms include: Pain impacting sleep or causing fatigue Pain worsened by weight bearing Pain effecting living situation Pain limiting ability to stay fit and healthy Unable to ambulate 2 blocks without significant pain and dysfunction. Surgery Details Date and Location: At [facility] on 04/24/25. Implants: [place] Robotic: Yes Predicted LOS: 2 days (Inpatient candidate) The risks and benefits of surgery were discussed at length including but not limited to the risks of infection, bleeding, nerve or blood vessel injury, deep venous thrombosis, pulmonary embolism, , paralysis, hip dislocation, leg length discrepancy (including requiring use of permanent shoe lift), bone fracture, component loosening or failure requiring re-operation or amputation. Informed consent was obtained and the patient was scheduled. We also discussed fixation strategies including cement and cementless fixation and modern alternative bearings including metal or ceramic with cross-linked polyethylene, [id number] and [id number] as well as advantages and disadvantages of each. We also discussed less invasive surgical approaches and reported benefits and risks of these approaches. The patient has been ordered: Office Visit on 04/16/25 CT HIP WO IVCON RIGHT CT Oseas Joseph meets the following criteria for CT: Surgical planning for [facility] hip CONSULTS: Hematology for surgical clearance for . Total Joint Arthroplasty: Risk Calculator Oseas Joseph has a 16.51% chance of NOT returning home at discharge for a Primary total Hip replacement. Oseas's estimated Length of Stay is 2 days (Inpatient candidate). Oseas's 30 day chance of readmission is 5.36%. Readmission Probability 5.36 % (within 30 days following surgery) Estimated LOS 2 days Discharge Disposition Probability D/C to Home 83.49 % D/C to SNF 16.51 % These calculations are based on the following factors: - 74 years of age - sex is male - BMI of 25 kg/m2 - NarxCare score of 150 - 0 hospitalizations in the last 12 months - no history of heart disease - history of diabetes - no history of COPD - history of anemia - preoperative ambulation: impaired community distances - 1 step(s) to enter home - bed location is on the first floor - bath location is on the first floor - caregiver is consistent - home is not more than 150 miles away - PROMIS-10 Mental Health T score 41-49 - Marital status: Risk Factors for Total Knee Arthroplasty (TKA) Major Risk Factors Obesity normal High: BMI > 40 Moderate: BMI 30-40 Normal: BMI < 30 Diabetes Moderate Risk High: A1C > 8 Moderate: A1C 7-8 Normal: A1C < 7 Hx of DVT / PE High Risk High: dx of DVT / PE Normal: no dx of DVT / PE Smoking normal High: Current smoker Normal: Non smoker Narcotics Use Moderate Risk High:NarxCare >=300 Moderate: 100-299 Normal: 0-99 Depression normal High: PHQ-9 >14 Moderate: PHQ-9 5-14 Normal: PHQ-9 < 5 Area Deprivation Index (YOUNG) Moderate Risk High: YOUNG Score > 75 Moderate: YOUNG 50-75 Normal: YOUNG < 50 Diabetes: Oseas has been diagnosed with Type 2 Diabetes. His last Hemoglobin A1C was 7.8 - 03/10/2023. Pt is followed by Dr. Mccain for Type 2 Diabetes - last seen on 03/06/25. Area Deprivation Index (YOUNG) 02/22/2023 03/21/2025 YOUNG Score National Score 59 59 Patient Health Questionnaire (PHQ-9) 11/25/2024 02/26/2025 03/20/2025 PHQ-9 PHQ-2 Score 0 1 1 PHQ-9 Score 4 (0-4) minimal depression, (5-9) mild depression, (10-14) moderate depression, (15-19) moderately severe depression, (20-27) severe depression Bone Density Risk Screen Oseas Joseph is at risk for bone loss and has not had a bone densitometry scan in the last 2 years (date of last scan: None on file). Recommend a bone densitometry scan and if indicated on the bone density results, a consult to a bone health specialist (Rheumatology, Endocrinology, or Women's Health) for bone assessment. Risk Factors: Use of Proton Pump Inhibitors History of falls Dx of Chronic Kidney Disease (CKD) Prednisone or use of systemic steroids Additional Risk Factors Anemia Hemoglobin (g/dL) Date Value 04/03/2025 11.2 03/06/2025 12.8 Nutritional concerns 74 year old, Last Wt 04/08/25 : 86.3 kg (190 lb 4.1 oz) 04/03/25 : 85.3 kg (188 lb) Albumin (g/dL) Date Value 04/03/2025 3.3 03/06/2025 4.0 NarxCare score NARX Narcotics: 150 (04/16/2025 9:54 AM) Coagulation Latest Ref Rng & Units 08/08/2022 12/24/2024 Coag/Hyper Coag Labs APTT 23.0 - 32.4 sec 24.8 27.8 PT INR 0.9 - 1.3 1.0 1.2 PT Sec <13.1 sec 10.6 12.7 Latest Ref Rng & Units 02/06/2025 03/06/2025 04/03/2025 Hemoglobin and Platelets Hemoglobin 13.0 - 17.0 g/dL 13.6 12.8 11.2 Platelet Count 150 - 400 k/uL 157 148 179 Past Orthopaedic Surgery: Oseas had hip surgery on 10/18/2024 with Elizabeth Foster. Malnutrition: No Malnutrition Screening Tool (MST) score on file- please complete the MST screening tool (click here to open) and refresh the note. ACTIVE PROBLEM LIST Multiple Myeloma Not Having Achieved Remission (Hcc) Personal History of Diseases of Blood and Blood-Forming Organs Mixed Hyperlipidemia Primary Hypertension Type 2 Diabetes Mellitus, Without Long-Term Current Use of Insulin (Hcc) Right Bundle Branch Block Blurred Vision Insomnia Multiple Myeloma and Immunoproliferative Neoplasms (Hcc) Chronic Diarrhea Chronic Pulmonary Embolism Without Acute Cor Pulmonale (Hcc) Cinv (Chemotherapy-Induced Nausea and Vomiting) Immunocompromised (Hcc) Autologous Bone Marrow Transplantation Status (Hcc) Pancytopenia Due to Antineoplastic Chemotherapy Kye (Acute Kidney Injury) Right Thigh Pain Muscle Pain Weakness of Right Lower Extremity Femoral Neuropathy of Right Lower Extremity SUBJECTIVE CHIEF COMPLAINT: Hip Pain HPI: Oseas Joseph is a 74 year old patient with the presenting complaint of Established Patient, Pain, and Follow Up of the Right Hip. Oseas Joseph has had progressive problems with the hip(s) most of the day over the past 2 year(s) interfering with activities which include doing lining finisher, enjoying hobbies, rising from a sitting position, standing for prolonged periods of time, dressing, climbing stairs, and safety-increased risk for fall. The problem began limiting activities 1-3 years ago. Nico is a poor historian but hip motion reproduces his complaints of pain. Oseas reports a current pain level of 8 (Hip-Right). He describes the pain as Radiating (lateral right hip pain radiates down leg to ankle). The pain is Intermittent, and has lasted for 1 Years. Interventions tried include Medication (tylenol, right hip injection 10/18/2024). FALL RISK: Oseas is not currently at risk for falls. PROMIS Physical Function Score 01/28/2024 11/25/2024 02/26/2025 PROMIS CAT Physical Function T-Score 39 (moderate dysfunction) 44 (mild dysfunction) 42 (mild dysfunction) Percentile 14 27* 21* FUNCTIONAL STATUS: Do moderate work around the house such as vacuuming, sweeping floors, or carrying in groceries (3.50 METs) PREVIOUS TREATMENTS: Last Hip Surgery: 10/18/2024 with Elizabeth Foster Past anti-inflammatory medications (not necessarily for this reason for visit): dexamethasone, dexamethasone sodium phosp/PF, dexamethasone sodium phosphate, hydrocortisone sodium succ/PF, prednisone, triamcinolone acetonide Medical: Steroid Injections Right Hip Physical Therapy: Use of Ambulatory Aid REVIEW OF SYSTEMS: PAIN ASSESSMENT: See HPI. MUSCULOSKELETAL: See HPI. 05/31/2023 Malnutrition Screening Tool (MST) Lost Weight Recently Without Trying? If Yes, Amount of Weight Loss(lbs) 0:No Eating Poorly Because of a Decreased Appetite 0:No Weight Loss Score (Calculated) 0 Appetite Score (Calculated) 0 Total MST Score (Calculated) 0 PAST MEDICAL HISTORY Diagnosis Date Arthritis Chronic diarrhea Malignant melanoma (HCC) Mixed hyperlipidemia Multiple myeloma not having achieved remission (HCC) 10/26/2022 Other hyperlipidemia 04/17/2023 Primary hypertension 04/17/2023 Pulmonary embolism (HCC) Right bundle branch block 04/17/2023 Type 2 diabetes mellitus, without long-term current use of insulin (HCC) 04/17/2023 PAST SURGICAL HISTORY Procedure Laterality Date REPAIR INCISIONAL HERNIA,REDUCIBLE 8th grade SKIN BX, 1 LESION 06/2022 FAMILY HISTORY Problem Relation Age of Onset Diabetes Mother Hypertension Mother Renal Disease Mother Hypertension Father Diabetes Father Hypertension Sister Diabetes Sister No Known Problems Sister No Known Problems Sister No Known Problems Sister No Known Problems Sister Heart Sister Hypertension Brother Diabetes Brother Hyperlipidemia Brother Heart Brother Hypertension Maternal Grandmother Diabetes Maternal Grandmother Colon Cancer Paternal Grandmother Hypertension Paternal Grandfather Social History Tobacco Use Smoking status: Never Smokeless tobacco: Never Vaping Use Vaping status: Never Used Substance Use Topics Alcohol use: Not Currently Comment: social Drug use: Never ALLERGIES: Patient has no known allergies. MEDICATIONS: gabapentin (NEURONTIN) 300 mg capsule Take 1 capsule by mouth daily at bedtime for 90 days. escitalopram oxalate (LEXAPRO) 5 mg tablet Take 1 tablet by mouth once daily. REVLIMID 5 mg capsule TAKE 1 CAPSULE BY MOUTH DAILY FOR 28 DAYS rivaroxaban (XARELTO) 20 mg tablet TAKE 1 TABLET BY MOUTH ONCE DAILY WITH SUPPER donepezil (ARICEPT) 10 mg tablet Take 1 tablet by mouth daily with breakfast. acyclovir (ZOVIRAX) 400 mg tablet Take 1 tablet by mouth two times a day. acetaminophen (TYLENOL EXTRA STRENGTH) 500 mg tablet Take 1,000 mg by mouth every 8 hours as needed. cyanocobalamin (VITAMIN B-12) 1,000 mcg tab Take 2,000 mcg by mouth once daily. folic acid 800 mcg tablet Take 400 mcg by mouth once daily. glimepiride (AMARYL) 2 mg tablet Take 1 tablet by mouth daily with breakfast. Take 2 mg twice a day. May increase to 4mg BID if your PCP requests so. ondansetron (ZOFRAN) 8 mg tablet Take 1 tablet by mouth every 8 hours as needed for nausea/vomiting. clonazePAM (KLONOPIN) 0.5 mg tablet Take 0.5 mg by mouth once daily. atorvastatin (LIPITOR) 10 mg tablet Take 10 mg by mouth once daily. losartan (COZAAR) 50 mg tablet Take 50 mg by mouth once daily. OBJECTIVE PHYSICAL EXAM There were no vitals taken for this visit. BACK EXAM: Adequate flexion and extension, negative straight leg raise test bilaterally. GENERAL: Appears healthy, well-nourished, no deformities. HABITUS: Normal GAIT: Antalgic to the right HIP EXAM: Right: ROM: Extension: 15 degree flexion contracture Flexion: 100 degrees Internal Rotation: 0 degrees External Rotation: 10 degrees Abduction: 15 degrees Adduction: 5 degrees Strength: Pain with resisted hip flexion Palpation: Tenderness over right greater trochanter Log roll: painful. Straight leg raise: Positive, reproducing hip symptoms Neurovascular Status: Sensation Intact, Moves foot and ankle up & down, Moves toes up and down, and 2+ dorsalis pedis DATA: He was last seen in orthopaedic clinic for his hip/pelvis on 03/07/2025 with Ivet Colin. Most recent hip imaging was completed on 10/02/2024 (XR HIP GENERAL 3V PELV/AP/LAT RIGHT) , 10/02/2024 (XR HIP GENERAL 3V PELV/AP/LAT LEFT) . Most recent upper leg imaging was completed on 11/17/2023 (XR FEMUR GENERAL 2V AP/LAT RIGHT) . Attached is imaging for the order.Oseas had hip surgery on 10/18/2024 with Elizabeth Foster. Diagnostic tests reviewed for today's visit: Right hip X-Ray: Severe degenerative changes Most recent MRI showing foraminal stenosis The following conditions were addressed during the office visit today: SIGNATURE: Nidhi Pat PA-C PATIENT NAME: Oseas Joseph DATE: April 16, 2025 TIME: 10:55 AM documented in this encounter [facility] 04-14-2025 Instructions Gilbert Ramirez, PHARMACIST CRITICAL CARE.PATTERNMAKER APPRENTICE WOOD - 04/14/2025 5:04 PM EDT OK with gabapentin 300mg nightly before bed-- watch for any increased drowsiness 2. Try starting low-dose escitalopram (Lexapro) 5mg daily in the morning w/ breakfast for the next 4-6 weeks- letting it have at least 4 weeks to work. If you feel there are any side effects you're noticing (diarrhea, nausea)- there would be no harm in stopping it. If after 6 weeks it is not helping enough - we would increase to 10mg daily or beyond 3. Educational resources for caregivers include: -- https://www.lbda.org/30-vbtvte-cxc -scnhcv-yzst-htqiz-lbd/ --https://www.lbda.org/lewy-body-d edvoadr-kcojtsotevb-tbt-patients-f tcuggzd-ibl-kbhnxgfvezdes/?_gl=1*t zn9pz*_gcl_au*IDS8YCK8LGCyUg5hMsU4 NjEzNjEx*_ga*BQP5ROK2RLOjUmL5LEp6H TM2MTE.*_ga_3R4B0BZ6K3*dcW1MMX4WUK 0UYscbfAmNmUdkNH5LLC9MPGkQYMoimD2R GwwJGgw 4. [facility] Caregiver Support Group When?: Last of the month 2-3:30 pm Where: Virtual The [facility] caregiver support group is a space for those caring for a loved on with dementia to connect, share experiences and find emotional support. Meetings will feature guest speakers presenting on educational topics relevant to dementia and caregiving. Meetings facilitated by [facility] team members. To RSVP and receive the link email : [email or web address] Follow up in ~6 weeks virtually documented in this encounter [facility] 04-14-2025 History of Present illness Narrative Images from the original note were not included. Oseas Joseph [address] [place] [address] [address] [facility] [id number] April 14, 2025 [facility] VIRTUAL FOLLOW-UP NOTE This visit was conducted using audio + video elements. I have communicated my name and active licensure. The patient's identity and physical location were verified at the time of this visit. Either the patient or their legal sales representative has been informed of the risks and benefits of -- and alternatives to -- treatment through a remote evaluation and consents to proceed with the evaluation remotely. Accompanied by: spouse Louise, daughter Zahida Rivera SUBJECTIVE Oseas Joseph is a pleasant 74 year old male seen today for a follow up visit. 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 Previous plan included: Increase Donepezil to 10mg once daily- while watching for possible side effects of diarrhea or nausea 2. Continue to exercise regularly and focus on cardiovascular activity 3. I will check on the MRI study- will message the coordinator to ensure they know you are willing to participate. 4. You may also consider participating in our [facility] ([facility]) and Dementia with Lewy Body Consortium (DLBC) studies- we can discuss that further next time we meet Follow up in 6 weeks Today, Nico and his family returns for a routine follow up visit. He reports worsening pain in both legs, with the right leg being more affected than the left. This pain significantly impacts his daily activities, making tasks such as putting on socks, getting into bed, and getting off his front desk receptionist difficult. His often assists him with these activities. The pain is described as excruciating, particularly when getting in and out of a car, and has led to decreased socialization and increased irritability. He does not endorse pain in his arms, neck, or feet. He has not experienced any falls and reports that his appetite remains good. He was evaluated by a program support specialist who prescribed gabapentin 300 mg twice daily and scheduled him for an injection. However, there has also been some thought that his symptoms might be related to his hips rather than his spine. Per report, his hip x-rays showed bone on bone changes. Oseas has an upcoming appointment with the orthopedic doctor to discuss treatment options Spouse Louise reports that he recently experienced a viral illness shortly after , which caused him to lose two days of memory and become more confused. She notes that he tends to become more confused whenever he has a fever or virus. During this illness, he also developed hiccups that occurred every two hours but did not disrupt his sleep. He has since recovered and returned to his normal baseline. He is currently taking Aricept 10 mg daily. His reports that after increasing the dose to 10 mg, he experienced loose stools and mood instability, but these symptoms have since resolved. She also notes an improvement in his conversational fluency after the dose increase. Particularly problematic for his spouse Louise has been his irritability. He does not see it as a significant problem, but she sees it as such. He is a bit resistant to start another medication for it but after some discussion he did finally agree. We will start a very low-dose of Lexapro and potentially increase over time as needed depending on response Oseas's expresses a desire to learn more about Lewy body dementia and Alzheimer s disease to better support her . Other interval history: Falls: negative Sleep: described as normal, feels rested upon waking Mood: irritable (See abovE) ADL's requires assistance with the following ADL's: taking medications, grocery shopping, house cleaning, driving, and finances Driving?: No FAST Functional Assessment Staging Tool 4. Decreased ability to perform complex tasks (e.e.g planning dinner for guests; handling finances; marketing) PAST MEDICAL HISTORY Diagnosis Date Arthritis Chronic diarrhea Malignant melanoma (HCC) Mixed hyperlipidemia Multiple myeloma not having achieved remission ([facility]) 10/26/2022 Other hyperlipidemia 04/17/2023 Primary hypertension 04/17/2023 Pulmonary embolism (HCC) Right bundle branch block 04/17/2023 Type 2 diabetes mellitus, without long-term current use of insulin ([facility]) 04/17/2023 SOCIAL HISTORY Social History Tobacco Use Smoking status: Never Smokeless tobacco: Never Vaping Use Vaping status: Never Used Substance Use Topics Alcohol use: Not Currently Comment: social Drug use: Never Social History reviewed by Gilbert Ramirez APRN.PATTERNMAKER APPRENTICE WOOD PROMIS-10 02/05/2025 11/14/2024 PROMIS 10 Health, in general Very good Very good Quality of life, in general Good Good Physical health, in general Good Good Mental health, in general Good Good Social activities satisfaction Good Good Performing ADL's Mostly Mostly Social role satisfaction Good Good Pain, on average 8 3 Fatigue, on average Moderate Mild Emotional problems Rarely Rarely PHYSICAL Score 39.8 (Fair) 47.7 (Good) MENTAL Score 45.8 (Good) 45.8 (Good) PHQ-9 03/20/2025 02/26/2025 PHQ-9 All Questions Little interest or pleasure in doing things: 1 1 Feeling down, depressed, or hopeless: 0 0 Trouble falling or staying asleep, or sleeping too much 2 Feeling tired or having little energy 1 Poor appetite or overeating 0 Feeling bad about yourself - or that you are a failure or have let yourself or your family down 0 Trouble concentrating on things, such as reading the newspaper or watching television 0 Moving or speaking so slowly that other people could have noticed. Or the opposite - being so fidgety or restless that you have been moving around a lot more than usual 0 Thoughts that you would be better off , or of hurting yourself in some way 0 PHQ-9 Score 4 (0-4) minimal depression (5-9) mild depression (10-14) moderate depression (15-19) moderately severe depression (20-27) severe depression Full History of PHQ-9 Scores PHQ-9 Score 03/20/2025 4 OBJECTIVE Current Outpatient Medications on File Prior to Visit Medication Sig REVLIMID 5 mg capsule TAKE 1 CAPSULE BY MOUTH DAILY FOR 28 DAYS rivaroxaban (XARELTO) 20 mg tablet TAKE 1 TABLET BY MOUTH ONCE DAILY WITH SUPPER gabapentin (NEURONTIN) 300 mg capsule Take 1 capsule by mouth two times a day for 90 days. donepezil (ARICEPT) 10 mg tablet Take 1 tablet by mouth daily with breakfast. acyclovir (ZOVIRAX) 400 mg tablet Take 1 tablet by mouth two times a day. acetaminophen (TYLENOL EXTRA STRENGTH) 500 mg tablet Take 1,000 mg by mouth every 8 hours as needed. cyanocobalamin (VITAMIN B-12) 1,000 mcg tab Take 2,000 mcg by mouth once daily. folic acid 800 mcg tablet Take 400 mcg by mouth once daily. glimepiride (AMARYL) 2 mg tablet Take 1 tablet by mouth daily with breakfast. Take 2 mg twice a day. May increase to 4mg BID if your PCP requests so. ondansetron (ZOFRAN) 8 mg tablet Take 1 tablet by mouth every 8 hours as needed for nausea/vomiting. clonazePAM (KLONOPIN) 0.5 mg tablet Take 0.5 mg by mouth once daily. atorvastatin (LIPITOR) 10 mg tablet Take 10 mg by mouth once daily. losartan (COZAAR) 50 mg tablet Take 50 mg by mouth once daily. No current facility-administered medications on file prior to visit. Vital Signs: Not performed- virtual visit General Medical Exam: General: Well-nourished appearing, NAD. Awake, alert. HEENT: Normocephalic/atraumatic. Neurological Exam: Cognition: alert and cooperative MoCA: Not assessed today (Previous score: in 11/2024) Orientation: alert Appearance: normal grooming Eye contact: normal Facial expression: appropriate Psychomotor: normal Speech/Language: unremarkable -can name, repeat with no dysarthria Mood: I get irritable sometimes Affect: pleasant PDW:no SI:no Self-injurious behavior:no Emotional state: calm, cooperative Thought Process: logical Thought Content: appropriate Hallucinations: none Judgment: impaired due to lack of insight Insight: fair Diagnostic Results: MRI Brain from 10/03/24 IMPRESSION: Mild interval increase in size of the small left intracanalicular vestibular schwannoma since 03/29/2024. Otherwise stable appearance of the brain. NPT from 11/01/24 IMPRESSIONS: The results of today's evaluation are highly variable with no clear pattern and they are not consistent with the location of his vestibular schwannoma or a known neurodegenerative etiology. It also is not fully consistent with effects of chemotherapy treatment, though it is possible that there is some contribution from his complex medical history. None the less, this likely presents a departure from longstanding ability and warrants on going follow up. While he has left sided hearing loss and not wearing hearing aids, this also is not sufficient to explain these findings. None the less, in order to maximize perception of spoken information, he is encouraged to wear his hearing aids. Given his performance on a task sensitive to driving ability, he is encouraged to undergo a formal driving evaluation with Occupational Therapy. Follow up neuropsychological evaluation is recommended in 18-24 months or sooner if clinically indicated. These results have not been reviewed with the patient; however, they were invited to contact me to schedule a feedback if they have questions after reviewing the report and/or meeting with their referring provider. It has been a pleasure to participate in this patient's care. Please feel free to contact me if you have any questions regarding this report or my recommendations. This table should not be presented separate from this Neuropsychological Evaluation Report. Superior High Average Average X X S Naming X Reasoning Low Average Simple W S F Lexical fluency Dominant Mildly Low Symbols S/F Moderately Low *W Extremely Low 108/144 Complex F W-Yes bias Semantic fluency Non-dominant Premorbid Estimate Global Cognitive Function Attention Executive Function Processing Speed Learning Recall Recognition Language Function Visuoperceptual Function Motor MEMORY S = Stories; W = Words; F = Figures Values in horton indicates WNL WNL = within normal limits; BE = below expectation CSF Beatriz [employer] Alzheimer's disease biomarker assay from 12/30/24 Latest Ref Rng 12/30/2024 Total-Tau / Abeta42 ratio <=0.280 0.439 (H) Phospho-Tau (181P) / Abeta42 ratio <=0.0230 0.0391 (H) Abeta42 >=564.2 pg/mL 694.7 Total-Tau <=375.4 pg/mL 305.3 Phospho-Tau (181P) <=31.30 pg/mL 27.16 Consistent with underlying AD pathology Claudio CHEATHAM-Amplify ASyn-- DETECTED Misfolded alpha-synuclein aggregates detected in spinal fluid sample ASSESSMENT: (G30.1, F02.A3) 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 Try starting low-dose escitalopram (Lexapro) 5mg daily in the morning w/ breakfast for the next 4-6 weeks- letting it have at least 4 weeks to work. If you feel there are any side effects you're noticing (diarrhea, nausea)- there would be no harm in stopping it. If after 6 weeks it is not helping enough - we would increase to 10mg daily or beyond 3. Educational resources for caregivers include: -- https://www.lbda.org/41-wxnemi-flw -hmtyfw-efwe-zbndy-lbd/ --https://www.lbda.org/lewy-body-d rjrztgt-fxsdfuwaggy-tpt-patients-f ctwajzs-dpm-kupqopomwwqbk/?_gl=1*t zn9pz*_gcl_au*GRT8GOK9IFKaHu0fRqG4 NjEzNjEx*_ga*FLB8KMQ5FFJpTuG5MAq6M TM2MTE.*_ga_3R4B0BZ6K3*ubA9ZPW9TGF 7ZHahmlStLkJhyOZ5KMK9UVBzIQTwsyO0Y GwwJGgw 4. [facility] Caregiver Support Group When?: Last of the month 2-3:30 pm Where: Virtual The [facility] caregiver support group is a space for those caring for a loved on with dementia to connect, share experiences and find emotional support. Meetings will feature guest speakers presenting on educational topics relevant to dementia and caregiving. Meetings facilitated by [facility] team members. To RSVP and receive the link email : [email or web address] Follow up in ~6 weeks virtually I spent a total of 40 minutes on the date of service which included xdph-fq-uujd patient care and counseling and educating the patient/spouse/daughter. Gilbert Ramirez, MSN, [employer]ICAL HELICOPTER-C, CNRN CC: 1. Connie Lugo MD, (fax) [phone] documented in this encounter [facility] 04-09-2025 Telephone encounter Note [employer] auth# [id number]. Betsy Henriquez LPN [facility] 04-09-2025 Miscellaneous Notes [employer] auth# [id number]. Betsy Henriquez LPN documented in this encounter [facility] 04-08-2025 History of Present illness Narrative Images from the original note were not included. NEUROSURGERY FOLLOW UP OFFICE NOTE Geoff Young MD [address] [address] Date of visit: April 08, 2025 Patient Name: Mr.Jeffrey Sania Joseph Date of : 1950 Current Age: [age] year old Sex: male MRN/E# [id number] CLINICAL SUMMARY: * Left vestibular schwannoma 2 mm, MRI 03/29/2024 - sensorineural hearing loss, left worse than right * IgG lambda multiple myeloma dx in 2021, - s/p autologous stem cell transplantation on 06/20/2023 * Recent removal of early melanoma back Dr. Mccain - oncology Interval History 03/29/2024 - MRI brain showed Left vestibular schwannoma 2 mm 10/08/2024 - 6 month follow up, very small left sided intracanalicular vestibular schwannoma, appeared slightly brighter on latest exam. Follow up in 6 months. 04/08/2025 - 6 month follow up with MRI brain, stable. Will f/up in 1 yr Subjective Oseas Joseph is a 74 year old right-handed male presenting with spouse. He has a past medical history of Arthritis, Multiple Myeloma, diverticulitis, HTN, PE, HLD and DM2. The patient has been following with Dr. Connie Mccain for known multiple myeloma with diagnosis in 2021. More recently at office visit in January 2024, patient expressed memory issues and concern for early dementia. MRI brain recommended and obtained 03/22/2024 that showed no evidence of parenchymal mass lesion, a 2 mm focus of enhancement in the left IAC was nonspecific, and could be a small schwannoma. Patient then underwent MRI skull base recommended by radiology that confirmed presence of a 2 mm focus of enhancement in the lateral third of the left IAC. Patient subsequently referred to neurosurgery. He was seen in consult on 04/09/2024 where he and his family stated around the time of multiple myeloma diagnosis he had developed issues with memory. His daughter reported his short-term memory had progressively worsened. He noted that he also had some hearing loss on the left. His MRI brain and skull base demonstrated a small 2 mm area of enhancement at the fundus of the IAC most compatible with a small vestibular schwannoma. We discussed observation versus treatment with gamma knife. Recommended continued observation with a repeat MRI brain in 6 months. He was last seen on 10/08/2024 as a 6 month follow up. He reported no changes in symptoms. He still had some difficulty with short term memory. He reported that he has been having some bilateral leg pain. Right leg > left, but fairly equal. He saw orthopedics and he was supposed to be getting hip injections. MRI brain showed a very small left sided intracanalicular vestibular schwannoma, appeared slightly brighter on latest exam. Different appearance may be due to different scanner and contrast agent. The difference in size was too small to justify treating schwannoma. He was recommended to follow up again in 6 months for monitoring. Today he reports that he has been doing fairly well overall. He reports that he is still having bilateral leg pain, right > left. He is scheduled the first week of April for injections for this. He was seeing KAELA Hughes with neurology @ [facility] where patient was diagnosed with -positive CSF biomarkers for AD and Lewy Body disease. He was started on donepezil. In addition, He reports bilateral leg pain for over six months, sharp stabbing pain that happens all the time. Worse with movement. The pain significantly impacts his daily activities. He had x-rays of his hips that demonstrated severe osteoarthritis, worse on the right. He had some relief with hip injections however the pain did come back fairly quickly. He also had an MRI of the lumbar spine and is working with pain management team to set up for lower back injections. Last Chemo: PO Revlimid Current Steroids dose: N/A Current AED Dose: No Smoker: Denies Diabetic: yes, no recent HgbA1c Anticoagulants / Antiplatelets: yes, +Xarelto (hx of PE) Occupation: Retired Objective OBJECTIVE: BP 136/78 Pulse 51 Resp 16 Wt 190 lb 4.1 oz (86.3kg) SpO2 99% PHYSICAL EXAM A&Ox3, speech fluent CN II-XII grossly intact. Cerebellar: no dysmetria No pronator drift Motor: Strength grossly intact in UEs and LEs. Severe pain in right hip with internal rotation, passive flexion extension is unaffected Sensorium: grossly intact. Gait: Antalgic, slow Data Review IMAGING STUDIES: MRI brain obtained on 04/03/2025 demonstrates: IMPRESSION: 3 mm rounded enhancing focus in the distal left ICA fundus, unchanged in size, presumably representing a vestibular schwannoma. Dictated by : BON REMY MD Assessment & Plan Images independently reviewed The following portions of the patient's history were reviewed, confirmed, updated as necessary: allergies, current medications, past family history, past medical history, past social history, past surgical history, problem list, HPI and ROS obtained by others. The clinical and radiographic findings as well as the risks, benefits, and alternatives of treatment have been reviewed in detail with the patient. ASSESSMENT/PLAN 1. Vestibular schwannoma (HCC) (D33.3) Reviewed MRI brain -stable size of the small 3 mm likely vestibular schwannoma on the left. - will continue to monitor with repeat MRI brain in 1 year - f/up in office to review results 2. Bilateral leg pain (M79.604) Has severe bilateral leg pain that is affecting his quality of life, right side affected more than the left. The leg pain is sharp but happens all the time especially with movement. Reviewed EMG/NCSs -patient has sensory distal bilateral peripheral polyneuropathy. No active denervation. EMGs showed chronic mild right L3-L4 radiculopathy Reviewed MRI lumbar spine -no evidence of central or significant foraminal stenosis. On review of x-rays of hips -has bilateral severe osteoarthritis. Patient had bilateral hip injections with some improvement in the pain, albeit that was short-lived. Furthermore, patient has become very apprehensive with internal and external rotation of the right hip. No evidence of nerve root irritation on exam. - Given negative spinal imaging and evidence of severe degenerative changes at the hip, together with his symptomatology, the most likely etiology of his leg pain is related to the hip. -Trial of gabapentin: Patient is only taking at nighttime. Increased dosing resulted in excessive drowsiness -I feel like his symptoms are coming primarily from the hip pathology. Advised the patient to follow-up with their orthopedic surgeon to discuss treatment options - MRI BRAIN WO/W IVCON; Future Encouraged patient to contact our office should there be any further questions, concerns, or change in symptoms. Patient expressed understanding and is in agreement with plan. Some elements may have been copied from a previous note and have been updated/reviewed where appropriate. All portions reflect current medical decision making from today. Geoff Young MD I spent a total of 40 minutes on the date of the service which included preparing to see the patient, [id number] patient care, completing clinical documentation, obtaining and/or reviewing separately obtained history, performing a medically appropriate examination, counseling and educating the patient/family/caregiver, ordering medications, tests, or procedures, independently interpreting results (not separately reported), and communicating results to the patient/family/caregiver. documented in this encounter [facility] 04-08-2025 Note HNO ID: [id number] Author: GEOFF YOUNG MD Service: ? Author Type: Physician Type: Progress Notes Filed: 04/08/2025 11:40 Note Text: NEUROSURGERY FOLLOW UP OFFICE NOTE Geoff Young MD [address] [id number] Date of visit: April 08, 2025 Patient Name: Mr.Jeffrey Sania Joseph Date of : 1950 Current Age: [age] year old Sex: male MRN/E# [id number] CLINICAL SUMMARY: * Left vestibular schwannoma 2 mm, MRI 03/29/2024 - sensorineural hearing loss, left worse than right * IgG lambda multiple myeloma dx in 2021, - s/p autologous stem cell transplantation on 06/20/2023 * Recent removal of early melanoma back Dr. Mccain - oncology Interval History 03/29/2024 - MRI brain showed Left vestibular schwannoma 2 mm 10/08/2024 - 6 month follow up, very small left sided intracanalicular vestibular schwannoma, appeared slightly brighter on latest exam. Follow up in 6 months. 04/08/2025 - 6 month follow up with MRI brain, stable. Will f/up in 1 yr Subjective Oseas Joseph is a 74 year old right-handed male presenting with spouse. He has a past medical history of Arthritis, Multiple Myeloma, diverticulitis, HTN, PE, HLD and DM2. The patient has been following with Dr. Connie Mccain for known multiple myeloma with diagnosis in 2021. More recently at office visit in January 2024, patient expressed memory issues and concern for early dementia. MRI brain recommended and obtained 03/22/2024 that showed no evidence of parenchymal mass lesion, a 2 mm focus of enhancement in the left IAC was nonspecific, and could be a small schwannoma. Patient then underwent MRI skull base recommended by radiology that confirmed presence of a 2 mm focus of enhancement in the lateral third of the left IAC. Patient subsequently referred to neurosurgery. He was seen in consult on 04/09/2024 where he and his family stated around the time of multiple myeloma diagnosis he had developed issues with memory. His daughter reported his short-term memory had progressively worsened. He noted that he also had some hearing loss on the left. His MRI brain and skull base demonstrated a small 2 mm area of enhancement at the fundus of the IAC most compatible with a small vestibular schwannoma. We discussed observation versus treatment with gamma knife. Recommended continued observation with a repeat MRI brain in 6 months. He was last seen on 10/08/2024 as a 6 month follow up. He reported no changes in symptoms. He still had some difficulty with short term memory. He reported that he has been having some bilateral leg pain. Right leg > left, but fairly equal. He saw orthopedics and he was supposed to be getting hip injections. MRI brain showed a very small left sided intracanalicular vestibular schwannoma, appeared slightly brighter on latest exam. Different appearance may be due to different scanner and contrast agent. The difference in size was too small to justify treating schwannoma. He was recommended to follow up again in 6 months for monitoring. Today he reports that he has been doing fairly well overall. He reports that he is still having bilateral leg pain, right > left. He is scheduled the first week of April for injections for this. He was seeing KAELA Hughes with neurology @ [facility] main where patient was diagnosed with -positive CSF biomarkers for AD and Lewy Body disease. He was started on donepezil. In addition, He reports bilateral leg pain for over six months, sharp stabbing pain that happens all the time. Worse with movement. The pain significantly impacts his daily activities. He had x-rays of his hips that demonstrated severe osteoarthritis, worse on the right. He had some relief with hip injections however the pain did come back fairly quickly. He also had an MRI of the lumbar spine and is working with pain management team to set up for lower back injections. Last Chemo: PO Revlimid Current Steroids dose: N/A Current AED Dose: No Smoker: Denies Diabetic: yes, no recent HgbA1c Anticoagulants / Antiplatelets: yes, +Xarelto (hx of PE) Occupation: Retired Objective OBJECTIVE: BP 136/78 Pulse 51 Resp 16 Wt 190 lb 4.1 oz (86.3kg) SpO2 99% PHYSICAL EXAM AANDOx3, speech fluent CN II-XII grossly intact. Cerebellar: no dysmetria No pronator drift Motor: Strength grossly intact in UEs and LEs. Severe pain in right hip with internal rotation, passive flexion extension is unaffected Sensorium: grossly intact. Gait: Antalgic, slow Data Review IMAGING STUDIES: MRI brain obtained on 04/03/2025 demonstrates: IMPRESSION: 3 mm rounded enhancing focus in the distal left ICA fundus, unchanged in size, presumably representing a vestibular schwannoma. Dictated by : BON REMY MD Assessment AND Plan Images independently reviewed The follo (more content not included)... [facility] 04-03-2025 Telephone encounter Note Scheduled as requested Venessa Meehan [facility] 04-03-2025 Miscellaneous Notes Scheduled as requested Venessa Meehan documented in this encounter [facility] 04-03-2025 Note HNO ID: [id number] Author: TEMO GILL, LATIA Service: ? Author Type: Registered Nurse Type: Progress Notes Filed: 04/07/2025 12:14 Note Text: IRB # [id number], [facility]# SWOG 1803 study entitled Phase III Study of Daratumumab/rHuPH20 (NSC- [id number]) + Lenalidomide or Lenalidomide as Post-Autologous Stem Cell Transplant Maintenance Therapy in Patients with Multiple Myeloma (MM) Using Minimal Residual Disease to Direct Therapy Duration (DRAMMATIC Study). Registration Information: Informed Consent Signed 01/03/2023 Registered Step 1 01/06/2023 Informed Consent Signed Step 2 07/22/2023 Randomization Date: 08/18/2023 Addendum 11/16/2023 Treatment Arm: TAC- 1 Lenalidomide Study ID [id number] Consent to optional samples Yes Study Status Active Patient was here for Cycle 21 and saw Connie Mccain D.O.. All of the patients and his 's questions were answered at this time in regards to right leg issues returning - MRI and EMG completed, memory issues, and labs. Patient doing much better overall per family and patient, but continued memory issues. The patient got his hearing aides and that is helping. Treatment Plan: Treatment Previous Cycle Cycle Current Start Date Frequency End date Lenalidomide Cycle 1 Day 1 08/24/2023 Dose Reduced 05/12/2024 5mg Cycle 21 03/06/2025 - 04/02/2025 Cycle 22 04/03/2025 - 04/30/2025 10/19/2023 Daily, Cycle every 28 days Clinical Trial Specific Testing Test Dates Completed Due Date Bone Marrow Biopsy CTD 07/24/2023 Baseline Step 2 [x] 07/18/2024 12 months post Step 2 [x] 07/24/2025 24 months post Step 2 [] 07/24/2026 36 months post Step 2 [] 07/24/2027 48 months post Step 2 [] QOLs PRO-CTCAE 08/17/2023 (Baseline) [x] 08/24/2023 (Cycle 1) [x] 09/21/2023 (Cycle 2) [x] 10/19/2023 (Cycle 3) [x] 11/16/2023 (Cycle 4) [x] 12/14/2023 (Cycle 5) [x] 01/11/2024 (Cycle 6) [x] 02/08/2024 (Cycle 7) [x] 03/07/2024 (Cycle 8) [x] 04/04/2024 (Cycle 9) [x] 05/02/2024 (Cycle 10) [x] 05/29/2024 (Cycle 11) [x] 06/27/2024 (Cycle 12) [x] 07/25/2024 (Cycle 13) and annual PROMIS-29 and Intolerance [x] 08/22/2024 (Cycle 14) [x] 09/18/2024 (Cycle 15) [x] 10/17/2024 (Cycle 16) [x] 11/14/2024 (Cycle 17) [x] 12/12/2024 (Cycle 18) [x] 01/09/2025 (Cycle 19) [x] 02/06/2025 (Cycle 20) [x] 03/06/2025 (Cycle 21) [x] 04/03/2025 (Cycle 22) [x] Day 1 of every cycle Baseline Weight (08/24/2023 date) 80.7 kg Current Weight 85.3 kg Creatinine Clearance 49.9 ml/min ECOG per ECOG- 1 Bone Marrow - Plasma Cell % Free Light Chains M Protein Date Size (mm) Date [place] Lambda * IGG Date Serum Urine Diagnosis 08/24/2022 20% Diagnosis 10/26/2022 11.7 43.5 Diagnosis 10/26/2022 1.12 M protein present Baseline 07/30/2023 Less than 5%* Baseline 08/07/2023 4.7 2.5 Enrollment 07/31/2023 Cycle 1 0.22 0.00 08/24/2023 Cycle 1 4.1* 2.4* 08/24/2023 Cycle 1 0.28 0.00 09/21/2023 Cycle 2 11.7 8.7 09/21/2023 Cycle 2 0.17 0.01 10/19/2023 Cycle 3 15.5 10.5 10/19/2023 Cycle 3 0.16 0.01 11/16/2023 Cycle 4 17.4 21.4 11/16/2023 Cycle 4 0.20 0.00 12/14/2023 Cycle 5 19.4 23.1 12/14/2023 Cycle 5 0.00* 0.00 01/11/2024 Cycle 6 25.8 19.4 01/11/2024 Cycle 6 0.15 0.00 02/08/2024 Cycle 7 24.2 20.4 02/08/2024 Cycle 7 0.00* 0.00 03/07/2024 Cycle 8 22.0 15.3 03/07/2024 Cycle 8 0.23 0.0 04/04/2024 Cycle 9 22.4 17.5 04/04/2024 Cycle 9 0.24 0.00 05/02/2024 Cycle 10 23.2 16.5 05/02/2024 Cycle 10 0.00* 0.00 05/29/2024 Cycle 11 23.7 15.3 05/29/2024 Cycle 11 0.00* 0.00 06/27/2024 Cycle 12 27.7 19.3 06/27/2024 Cycle 12 0.25 0.00 07/25/2024 Cycle 13 37.8 21.5 07/25/2024 Cycle 13 0.19 0.00 08/22/2024 Cycle 14 25.2 15.7 08/22/2024 Cycle 14 0.25 0.00 09/18/2024 Cycle 15 20.5 13.2 09/18/2024 Cycle 15 0.23 0.00 10/17/2024 Cycle 16 22.8 15.2 10/17/2024 Cycle 16 0.33 0.00 11/14/2024 Cycle 17 21.6 15.4 11/14/2024 Cycle 17 0.20 0.00 12/12/2024 Cycle 18 28.0 18.3 12/12/2024 Cycle 18 0.15 0.00 01/09/2025 Cycle 19 24.7 16.7 01/09/2025 Cycle 19 0.00* 0.00 02/06/2025 Cycle 20 23.9 15.1 02/06/2025 Cycle 20 0.00* 0.00 03/06/2025 Cycle 21 31.0 20.6 03/06/2025 Cycle 21 0.18 0.00 04/03/2025 Cycle 22 52.7 33.5 04/03/2025 Cycle 22 0.00* 0.00 Lowest/Jacque = * 04/03/25 Weight 85.3 kg (188 lb) BSA 0 BMI 0 Temp 37.1 ?C (98.7 ?F) Resp 16 Pulse 55 ! BP 100/55 SpO2 95 % zoledronic acid IV 3.5 mg !: Data is abnormal Drug Accountability/Education - Completed on 04/07/2025. Patient given Cycle 22 diary. Patient did return Cycle 21. Use of the study medication diary and dosing instructions were reviewed with the patient. Patient verbalizes understanding of dosing of Revlimid: Capsules should be taken whole, with water, once daily (patient takes at HS). If a dose is missed, and it has been less than 12 hours since the preceding dose, the patient should take lenalidomide as soon as the patient remembers. If it has been more than 12 (more content not included)... [facility] 04-03-2025 History of Present illness Narrative IRB # [id number], [facility]# SWOG 1803 study entitled Phase III Study of Daratumumab/rHuPH20 (NSC- [id number]) + Lenalidomide or Lenalidomide as Post-Autologous Stem Cell Transplant Maintenance Therapy in Patients with Multiple Myeloma (MM) Using Minimal Residual Disease to Direct Therapy Duration (DRAMMATIC Study). Registration Information: Informed Consent Signed 01/03/2023 Registered Step 1 01/06/2023 Informed Consent Signed Step 2 07/22/2023 Randomization Date: 08/18/2023 Addendum 11/16/2023 Treatment Arm: TAC- 1 Lenalidomide Study ID [id number] Consent to optional samples Yes Study Status Active Patient was here for Cycle 21 and saw Connie Mccain D.O.. All of the patients and his 's questions were answered at this time in regards to right leg issues returning - MRI and EMG completed, memory issues, and labs. Patient doing much better overall per family and patient, but continued memory issues. The patient got his hearing aides and that is helping. Treatment Plan: Treatment Previous Cycle Cycle Current Start Date Frequency End date Lenalidomide Cycle 1 Day 1 08/24/2023 Dose Reduced 05/12/2024 5mg Cycle 21 03/06/2025 - 04/02/2025 Cycle 22 04/03/2025 - 04/30/2025 10/19/2023 Daily, Cycle every 28 days Clinical Trial Specific Testing Test Dates Completed Due Date Bone Marrow Biopsy CTD 07/24/2023 Baseline Step 2 [x] 07/18/2024 12 months post Step 2 [x] 07/24/2025 24 months post Step 2 [] 07/24/2026 36 months post Step 2 [] 07/24/2027 48 months post Step 2 [] QOLs PRO-CTCAE 08/17/2023 (Baseline) [x] 08/24/2023 (Cycle 1) [x] 09/21/2023 (Cycle 2) [x] 10/19/2023 (Cycle 3) [x] 11/16/2023 (Cycle 4) [x] 12/14/2023 (Cycle 5) [x] 01/11/2024 (Cycle 6) [x] 02/08/2024 (Cycle 7) [x] 03/07/2024 (Cycle 8) [x] 04/04/2024 (Cycle 9) [x] 05/02/2024 (Cycle 10) [x] 05/29/2024 (Cycle 11) [x] 06/27/2024 (Cycle 12) [x] 07/25/2024 (Cycle 13) and annual PROMIS-29 and Intolerance [x] 08/22/2024 (Cycle 14) [x] 09/18/2024 (Cycle 15) [x] 10/17/2024 (Cycle 16) [x] 11/14/2024 (Cycle 17) [x] 12/12/2024 (Cycle 18) [x] 01/09/2025 (Cycle 19) [x] 02/06/2025 (Cycle 20) [x] 03/06/2025 (Cycle 21) [x] 04/03/2025 (Cycle 22) [x] Day 1 of every cycle Baseline Weight (08/24/2023 date) 80.7 kg Current Weight 85.3 kg Creatinine Clearance 49.9 ml/min ECOG per ECOG- 1 Bone Marrow - Plasma Cell % Free Light Chains M Protein Date Size (mm) Date [place] Lambda * IGG Date Serum Urine Diagnosis 08/24/2022 20% Diagnosis 10/26/2022 11.7 43.5 Diagnosis 10/26/2022 1.12 M protein present Baseline 07/30/2023 Less than 5%* Baseline 08/07/2023 4.7 2.5 Enrollment 07/31/2023 Cycle 1 0.22 0.00 08/24/2023 Cycle 1 4.1* 2.4* 08/24/2023 Cycle 1 0.28 0.00 09/21/2023 Cycle 2 11.7 8.7 09/21/2023 Cycle 2 0.17 0.01 10/19/2023 Cycle 3 15.5 10.5 10/19/2023 Cycle 3 0.16 0.01 11/16/2023 Cycle 4 17.4 21.4 11/16/2023 Cycle 4 0.20 0.00 12/14/2023 Cycle 5 19.4 23.1 12/14/2023 Cycle 5 0.00* 0.00 01/11/2024 Cycle 6 25.8 19.4 01/11/2024 Cycle 6 0.15 0.00 02/08/2024 Cycle 7 24.2 20.4 02/08/2024 Cycle 7 0.00* 0.00 03/07/2024 Cycle 8 22.0 15.3 03/07/2024 Cycle 8 0.23 0.0 04/04/2024 Cycle 9 22.4 17.5 04/04/2024 Cycle 9 0.24 0.00 05/02/2024 Cycle 10 23.2 16.5 05/02/2024 Cycle 10 0.00* 0.00 05/29/2024 Cycle 11 23.7 15.3 05/29/2024 Cycle 11 0.00* 0.00 06/27/2024 Cycle 12 27.7 19.3 06/27/2024 Cycle 12 0.25 0.00 07/25/2024 Cycle 13 37.8 21.5 07/25/2024 Cycle 13 0.19 0.00 08/22/2024 Cycle 14 25.2 15.7 08/22/2024 Cycle 14 0.25 0.00 09/18/2024 Cycle 15 20.5 13.2 09/18/2024 Cycle 15 0.23 0.00 10/17/2024 Cycle 16 22.8 15.2 10/17/2024 Cycle 16 0.33 0.00 11/14/2024 Cycle 17 21.6 15.4 11/14/2024 Cycle 17 0.20 0.00 12/12/2024 Cycle 18 28.0 18.3 12/12/2024 Cycle 18 0.15 0.00 01/09/2025 Cycle 19 24.7 16.7 01/09/2025 Cycle 19 0.00* 0.00 02/06/2025 Cycle 20 23.9 15.1 02/06/2025 Cycle 20 0.00* 0.00 03/06/2025 Cycle 21 31.0 20.6 03/06/2025 Cycle 21 0.18 0.00 04/03/2025 Cycle 22 52.7 33.5 04/03/2025 Cycle 22 0.00* 0.00 Lowest/Jacque = * 04/03/25 Weight 85.3 kg (188 lb) BSA 0 BMI 0 Temp 37.1 C (98.7 F) Resp 16 Pulse 55 ! BP 100/55 SpO2 95 % zoledronic acid IV 3.5 mg !: Data is abnormal Drug Accountability/Education - Completed on 04/07/2025. Patient given Cycle 22 diary. Patient did return Cycle 21. Use of the study medication diary and dosing instructions were reviewed with the patient. Patient verbalizes understanding of dosing of Revlimid: Capsules should be taken whole, with water, once daily (patient takes at HS). If a dose is missed, and it has been less than 12 hours since the preceding dose, the patient should take lenalidomide as soon as the patient remembers. If it has been more than 12 hours, the patient should skip the missed dose. Patient took 28/28 pills for the cycle - determining 100% compliance Patient receives drug from a private pharmacy. Lenalidomide Education and Counseling completed. Patient counseled on potential exposure to lenalidomide by [place], engage in abstinence or use a condom when engaging in sexual contact with [facility], notify study doctor if female partner becomes , never share drug with anyone else, not to donate blood, semen, or sperm while taking drug and for 28 days after. Concomitant medications reviewed per protocol: Yes Patient reported changes to medication list: No changes since last visit. Current medications: Current use of anticoagulants: YES (see medications below if applicable) Anticoagulants: Eliquis 5 mg Current use of herbal preparations or medications: No Prophylactic shingles medication: Acyclovir 400 mg Current Outpatient Medications Medication Sig Start/Stop Use acyclovir (ZOVIRAX) 400 mg tablet Take 1 tablet by mouth twice daily. 05/01/2023 Prophylactic shingles ondansetron (ZOFRAN) 8 mg tablet Take 1 tablet by mouth every 8 hours as needed for nausea/vomiting. 10/26/2022 PRN Nausea clonazePAM (KLONOPIN) 0.5 mg tablet Take 0.5 mg by mouth once daily. 07/29/2023 Anxiety glimepiride (AMARYL) 4 mg tablet Take 2 capsules by mouth in AM & 1 capsule in PM. >5 years Type 2 amLODIPine (NORVASC) 5 mg tablet Take 5 mg by mouth once daily. 02/10/2021 Hypertension atorvastatin (LIPITOR) 10 mg tablet Take 10 mg by mouth once daily. 02/10/2021 Cholesterol losartan (COZAAR) 50 mg tablet Take 50 mg by mouth once daily. 02/10/2021 Hypertension Loperamide (Imodium Oral) Take 2 tablet by mouth as needed >5 years Diarrhea Sildenafil (Viagra) 50 mg tablet Take 50 mg by mouth as needed. >10 years ED Eliquis 5 mg tablet Take 1 tablet by mouth twice daily 03/23/2023 Preventative -blood thinner Melatonin 5 mg Take 1 tablet at bedtime 03/23/2023 Insomnia Revlimid 10 mg Take 1 capsule daily in the morning 08/24/2023 Stopped: 05/12/2024 MM treatment Revlimid 5 mg Take 1 capsule daily in the morning 05/12/2024 MM treatment Linzess 72 mcg Take 1 capsule for constipation symptoms once a day as needed for constipation 12/31/2023 Constipation Azithromycin (ZITHROMAX) 500 mg tablet Take 1 tablet by mouth daily 02/02/2024 Completed 02/05/2024 Antibiotic Donepezil (ARICEPT) 5mg Increased to 10mg Take 1 tablet by mouth daily 01/23/2025 Increased:02/24/2025 to 10mg Alzheimer Amoxicillin K Clav 875-125mg Take 2 times daily Start:02/11/2025 Stopped:02/22/2025 Lung Infection No current facility-administered medications for this visit. Medical History: PAST MEDICAL HISTORY Diagnosis Date Arthritis Treated with medication Chronic diarrhea Resolved and now constipation Diabetes mellitus (HCC) Treated with medication Essential hypertension Treated with medication Mixed hyperlipidemia Treated with medication Alzheimer 01/30/2025 PAST MEDICAL HISTORY Diagnosis Date Arthritis Treated with medication Chronic diarrhea Resolved Malignant melanoma (HCC) On back removed - precancerous and 06/2022 non cancerous Mixed hyperlipidemia Treated with medication Multiple myeloma not having achieved remission (HCC) Treated with medication Primary hypertension Treated with medication Pulmonary embolism (HCC) Treated with medication Right bundle branch block Treated with medication Type 2 diabetes mellitus, without long-term current use of insulin (HCC) Treated with medication Surgical History: PAST SURGICAL HISTORY Procedure Laterality Date REPAIR INCISIONAL HERNIA,REDUCIBLE Resolved 8th grade SKIN BX, 1 LESION 06/2022 non cancerous Baseline Toxicities per CTCAE v. 5: All predate therapy, are chronic conditions and will not be actively followed unless they worsen during the clinical trial. Hyperglycemia; Grade 1: Start Date: >5 years PRIOR TO STUDY Drugs to Treat: Glimepiride Action Required: None Outcome: Ongoing. (Chronic) Diarrhea; Grade 1: INTERMITTENT Start Date: >5 years PRIOR TO STUDY Drugs to Treat: Imodium Action Required: None Outcome: Ongoing. Anemia; Grade 1: Start Date: Intermittent PRIOR TO STUDY 07/24/2023 Drugs to Treat: None. Action Required: None Outcome: See Below. Aspartate aminotransferase decreased; Grade 1: Start Date: Intermittent PRIOR TO STUDY Drugs to Treat: None. Action Required: None Outcome: Ongoing Alanine aminotransferase decreased; Grade 1: Start Date: Intermittent PRIOR TO STUDY Drugs to Treat: None. Action Required: None Outcome: Ongoing Insomnia; Grade 1: Start Date: Intermittent PRIOR TO STUDY 07/21/2023 Drugs to Treat: None. Action Required: None Outcome: Ongoing. Lymphocyte Count Decreased; Grade 1: Start Date: Intermittent PRIOR TO STUDY- Possibly related to Revlimid and Drugs to Treat: None. Action Required: None Outcome: Toxicities per CTCAE v. 5: White Blood Cell Count Decreased; Grade 1: Start Date: 10/17/2024. Related to Lenalidomide and cold. Drugs to Treat: None. Action Required: None Outcome: ONGOING Memory Impairment; Alzheimer; Grade 1: Start Date: 02/08/2024. Unrelated to Lenalidomide. Drugs to Treat: None. Action Required: None Outcome: Ongoing Creatinine Increased: Grade 1: Start Date: 11/14/2024. Possibly related to Lenalidomide but more due to dehydration. Drugs to Treat: None. Action Required: Zometa held and increase fluid intake Outcome: Ongoing Weight Loss: Grade 1: Start Date: 08/2023. Unrelated to study drug - due to transplant. Drugs to Treat: None. Action Required: None Outcome: Ongoing Hypertension: Grade 1. Start Date: 03/06/2025.RESOLVED:04/07/2025 Unrelated to Lenalidomide. Drugs to Treat: None. Action Required: None. Outcome: RESOLVED. Sinus Bradycardia: Grade 1. Start Date: 03/06/2025. RESOLVED:04/07/2025 Unrelated to Lenalidomide - Related to Donepezil. Drugs to Treat: None. Action Required: None. Outcome: RESOLVED Platelet Count Decreased: Grade 1. Start Date: 03/06/2025. RESOLVED:04/07/2025 Related to Lenalidomide. Drugs to Treat: None. Action Required: None. Outcome: RESOLVED Lymphocyte Count Decreased; Grade 2: Start Date: Intermittent PRIOR TO STUDY- Possibly related to Revlimid - Increased to Grade 2 04/07/2025 and Drugs to Treat: None. Action Required: None Outcome: Patient turned in a 24 hour urine: Yes Chart sent the overseeing physician to review CTCAE toxicities. Patient knows to [facility] 05/01/2025 for C23. Patient knows to call in the interim for any questions or concerns. Patient has contact information for Uma Brower Nurse and Dr. Mccain, along with the office number. All other abnormal lab values are deemed not clinically significant and therefor will not be graded. Treating provider has reviewed and agrees with Adverse Events above. Chart being routed to Connie Mccain D.O.. Patient meets all Criteria for Study Participation: Yes REID Bynum, RN Clinical Research Nurse [phone] documented in this encounter [facility] 04-03-2025 History of Present illness Narrative Radiology Service Progress Note PATIENT NAME: Oseas Joseph DATE OF SERVICE: April 03, 2025 TIME: 10:45 AM PATIENT IDENTITY VERIFICATION COMPLETED USING TWO (2) IDENTIFIERS: Name and Date of confirmed by patient verbally. FALL SCREENING: Has the patient had 2 falls in the last year or 1 fall with injury or currently using an Ambulatory Assistive Device (Walker, Cane, Wheelchair, Crutches, etc.)? No PATIENT GENDER DATA: Assigned male at PATIENT RELEVANT IMPLANT DATA REVIEWED: Yes PATIENT PRESENTS WITH AN IMPLANTABLE OR ATTACHED IMPLEMENTATION TECHNICIAN: No RADIOLOGY DEPARTMENT: MR; Exam(s) Completed: Head: Routine Brain. Lavender Administered: No PERIPHERAL IV DATA: Site assessment: Clean,Dry and Intact, Site disposition Discontinued SIGNED BY: RT Crescencio(R) April 03, 2025 10:45 AM documented in this encounter [facility] 04-03-2025 History of Present illness Narrative Oncologic problem(s): 1) IgG lambda multiple myeloma. HPI: The patient is a 74-year-old male with a past medical history significant for type 2 diabetes, high cholesterol, hypertension and right bundle branch block. Patient originally presented to the emergency room at [facility] on 04/19/2022 with new onset of confusion that day which had been worsening. Laboratory work-up significant for hypokalemia. CT of the brain was unremarkable. He was admitted. During hospitalization it was noted that he had been having diarrhea for 6 to 8 weeks. Stool studies were positive for Campylobacter, blood and lactoferrin. C. difficile was negative. CT of the abdomen pelvis on 04/21/2022 noted abnormal pericholecystic edema without gallstones. Renal cysts and colonic diverticulosis were noted. He was found to have elevation of sed rate to 39, CRP 134. His albumin was 2.3. IgA low at 37. He was discharged on azithromycin, potassium and magnesium supplement. He was seen in the outpatient setting for follow-up visit on 07/11/2022. He continued to have one episode of explosive diarrhea daily. This had been going on for about 8 months. CBC on 07/11 showed a white count of 6400. Differential was normal. Hemoglobin 14.9 g/dL. Platelet count 275,000. Chemistries significant for creatinine of 1.29 g/dL. Previously 1.13 g/dL on 04/27/2022. Calcium was 9.3 mg/dL. Total bilirubin, AST, ALT and alkaline phosphatase were normal. LDH was 181. C-reactive protein was less than 2.09. Total protein was 8.8 g/dL. Total IgG was 2462 mg/dL. IgA decreased to 28 mg/dL. IgM normal at 32 mg/dL. On protein electrophoresis, patient was found to have 2M spikes both IgG lambda by immunofixation. For spike was quantitated at 1.2 g/dL and the second was quantitated at 0.6 g/dL. Cytoplasmic and perinuclear ANCA both negative. Atypical p-ANCA negative. Patient described diarrhea as loose, eran stools sometimes explosive typically one bowel movement per day however. He had not observed any blood. Had a colonoscopy December [address] Arteaga. His appetite was normal. He had not lost weight. Denied reflux and nausea. He did get abdominal bloating associated with the diarrhea. He denied musculoskeletal pain. He denied symptoms of sensory neuropathy. He sees an team supervisor once a year for dilated exam. He has not been told he has retinopathy. Recent removal of early melanoma back. Blue nevus right ankle--required WLE--scheduled. PMR--about 15 years ago. Patient underwent colonoscopy on 09/21/2022. Preparation of the colon was fair. -One 6 mm polyp at the ileocecal valve, removed with a hot snare. Resected and retrieved. -One 5 mm polyp in the ascending colon, removed with a hot snare. Resected and retrieved. -Congested mucosa in the descending colon, at the splenic flexure, in the ascending colon and in the cecum. Biopsied. -Diverticulosis in the recto-sigmoid colon, in the sigmoid colon and in the descending colon. -Stool in the rectum, in the sigmoid colon, in the descending colon and at the hepatic flexure. Fluid aspiration performed. -The examined portion of the ileum was normal. Biopsied. Pathology: A. Ileocecal valve polyp, biopsy: -Consistent with fibrolipomatous polyp. -See comment. B. Small bowel, biopsy: -No pathologic change. C. Cecum, biopsy: -Mild melanosis coli. D. Colon, random biopsy: -Mild melanosis coli. E. Ascending colon polyp, biopsy: -Fragments of tubular adenoma. B, C, D & E - No congophilic material identified. Congo red stain with matched control is negative. ADDENDUM C & D. No congophilic material is noted in these biopsies on light and polarized microscopy. Congo Red stain with matched control was used in the evaluation of this case. He was diagnosed with pancreatic insufficiency and was to start pancreatic enzyme replacement. Patient had a venous duplex ultrasound on 12/16/2022 for right leg pain. That study demonstrated no evidence of DVT in the right leg. He developed chest pain and increasing shortness of breath. Went to the ED on 01/16/2023. PE protocol chest CT demonstrated multiple bilateral pulmonary emboli involving the distal portion of both the right and left main pulmonary arteries as well as branches of the upper and lower lobe pulmonary arteries, more prominent on the right side. Platelet count was 67,000. Patient was admitted and placed on unfractionated heparin with bolus. The next morning platelet count was 62,000. He was rotated to apixaban and discharged. Echocardiogram performed 01/17/2023 demonstrated normal LV size. There was moderate concentric LVH. Left ventricular systolic function was normal with an estimated ejection fraction at 60%. There was stage I diastolic dysfunction. The pulmonary artery systolic pressure was 58 mmHg. The global longitudinal strain was -11.5% (abnormal). The global longitudinal strain was moderately abnormal. (Previous echocardiogram 04/20/2022 demonstrated right ventricular systolic pressure estimated at 22 mmHg. Diastolic function was indeterminate. Right ventricular strain was not determined). His chest pain has improved. He is still short of breath with heavier exertion and sometimes walking from room to room he finds himself breathing heavier. He has been taking apixaban 10 mg twice daily. No bleeding issues. Previous therapy: 1) RVd. Cycle #1 began 11/09/2022. 2) Zometa. 3) ASCT. Transplant Summary: BMT Information ASCR infused on 06/02/2023 Planned Proposed Protocols: IP BMT AUTO MELPHALAN 200 Planned Preparative Regimen Drug: Melphalan Planned Mobilization Agent: G-CSF, Plerixafor Planned Stem Cell Source: Peripheral blood stem cells BMT Transplant Details # of cells: 6.16 Saw neurology. 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 Scheduled for EMG 01/16. Seen in the ED on 01/27/2024 for an episode of confusion that was secondary to hypoglycemia. Evidently had influenza diagnosed prior to that. Was then admitted for neutropenic fever on 01/31/2024. ANC was 600 at time of admission. Influenza A positive. Stool positive for Campylobacter. Was treated with high-dose Tamiflu secondary to underlying immunocompromise. Discharged on azithromycin 500 mg daily for 14 days. B/L hip injections 10/18. Helped significantly for several weeks. Wearing off and starting to have more pain both hips. Typically pain improves once up an moving. Denies pain otherwise. Presents for ongoing oncologic management. Interim history: He was started on gabapentin 300 mg twice daily for sciatica pain. His is noticed that he has had somewhat more confusion, orthostasis and loss of time since starting that medication but the other confounder is last he developed low-grade fever to 100.8 associated with chills and cough. He had nasal congestion. No fever in the last 24 hours. Still has some cough but is able to clear phlegm well. He denies shortness of breath. PMH, medications and allergies personally reviewed by me today. Any changes documented in appropriate section. ROS: Constitutional: See above. Neuro: Denies HAMILTON. HEENT: No recent change in voice, vision. Resp: See above. CVS: Denies exertional chest pain, PND, orthopnea and LE edema. : Denies dysuria or gross hematuria. Endo: Denies hot flashes. Denies polyuria and polydipsia. Denies heat and cold intolerance. Musculoskeletal: See HPI. Derm: Denies rash. Denies jaundice and diffuse pruritis. Heme: Denies unusual bleeding and unexplained bruising. Psych: Normal mood. PHYSICAL EXAM: Vitals: Blood pressure 100/55, pulse (!) 55, temperature 37.1 C (98.7 F), temperature source Temporal, weight 85.3 kg (188 lb), SpO2 95%. Well-appearing and in no acute distress. EYES: Sclerae are anicteric bilaterally. LYMPHATIC: There is no palpable cervical or supraclavicular adenopathy. Lungs: Clear respiratory breath sounds with good air entry all throughout. No wheeze or rhonchi appreciated. CVS: Regular rhythm with no murmur. ABDOMEN: The abdomen is nondistended. Extremities: No swelling or edema. SKIN: No jaundice. Neuro: He is somewhat unsteady on his feet. Just standing for exam he had to grab a hold of the table to steady himself. ASSESSMENT/PLAN: (C90.00) Multiple myeloma not having achieved remission (HCC) (primary encounter diagnosis) Assessment: -The patient is a 74-year-old male has a past medical history significant for diabetes and chronic diarrhea that was characterized by one explosive watery stool daily (was diagnosed with pancreatic insufficiency). Was hospitalized 03/2022 when diarrhea significantly worsened and he was diagnosed with and treated for Campylobacter infection. During that evaluation, was found to have two IgG lambda monoclonal antibodies. He did not have hypercalcemia or anemia but had elevated serum creatinine (which may have been related to volume depletion when hospitalized for diarrhea and mental status change). 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 Low to intermediate risk disease (PCs 20%). -Imaging--no lytic lesions on whole body CT; Liver cyst and splenic nodule (6-12 month f/u MRI recommended). -Bone marrow negative for amyoid. -Colonic biopsies negative for amyloid. -Subsequent MRI of spine and pelvis revealed two T2 hyperintense foci in the pelvis, one in the left sacral rebeka and one in the right ischium. -FISH panel revealed (11;14) (q13;q32) (IGH/CCND1) translocation consistent with the presence of a plasma cell neoplasm associated with standard risk disease. -R-ISS stage I (serum beta microglobulin less than 3.5 mg/L and serum albumin greater than 3.5 g/dL; standard risk disease by FISH testing as outlined above and serum LDH less than upper limit of normal). -Serum monoclonal protein from February (IgG lambda 0.18 g/dL) indicates SD. IgG lambda by immunofixation and 24-hour urine collection. -Reviewed trending serum creatinine. He has had fluctuating levels. He is not hydrating very well. We discussed the importance of this with him. We also discussed the importance of good blood glucose control. Home blood pressures typically 120s to 130s with diastolics in the 70s. Because of recent diagnoses of Alzheimer's and Lewy body dementia, I recommended holding off on Zometa today since I am not sure how reliable he will be with hydration. Will administer next month if creatinine improves. If continues to worsen then nephrology consultation. -Reviewed CBC. Counts allow continued therapy. -ECOG PS 1. Plan: -Continue lenalidomide at current dose. -Follow-up on finalized results of today's serum protein electrophoresis and differential. - Rx for shower chair. Previously provided Rx for rollator walker. - Decrease gabapentin to 300 mg at at bedtime. - Discontinue amlodipine and continue losartan. -CBC, chemistries and serum protein electrophoresis and immunofixation as well as 24-hour urine collection for electrophoresis and immunofixation monthly per protocol. Needs follow up for lung nodules. Supportive care: ID: Plan: -Continue acyclovir. Skeletal: -Only lytic lesions observed over those in the pelvic bones on MRI initially. Plan: -Zometa every 3 months. -Decrease Zometa to 3.5 mg. Chronic PE. Assessment: -B/L PE developed on ASA prophylaxis. -Previous evidence of pulmonary hypertension on echocardiogram. -Tolerating rivaroxaban well. -CBC reveals no thrombocytopenia. Plan: -Continue rivaroxaban--will dose adjust as indicated by GFR. Neuro: -No symptoms of neuropathy. Portions of this documentation were copied and pasted from my previous office visit note dated 03/06/2025 in order to provide a cohesive continuity of the history. The note has been reviewed and edited and updated as necessary. Connie Mccain DO documented in this encounter [facility] 04-02-2025 Telephone encounter Note Rx printed. Betsy Henriquez LPN [facility] 04-02-2025 Miscellaneous Notes Rx printed. Betsy Henriquez LPN SOCIAL WORK FOLLOW UP NOTE: [facility] Separate SW encounter entered with phone call details with Louise. Dr. Rush Samuel is asking for a prescription for a rollator for Nico. If you could print, I can fax to DME close to their home. Thank you, ISAC Byrnes documented in this encounter [facility] 04-01-2025 Telephone encounter Note If Dr. Sanchez has sooner availability, that is fine with me to send him there instead. I wonder if he has really started on his gabapentin yet--they didn't mention that at all. If so, it's probably reaching its full effect in the next week or so. Eunice Morales PA-C [facility] 04-01-[address] Sanchez has sooner availability, that is fine with me to send him there instead. I wonder if he has really started on his gabapentin yet--they didn't mention that at all. If so, it's probably reaching its full effect in the next week or so. Eunice Morales PA-C [place]: 03/14/2025 w/uEnice Morales PA-C PLAN: We had a long talk about his symptoms and the effect that it is having on him as an individual and even on the rest of the family. Patient apparently has quite a bit of leg pain and the amount of pain is somewhat disruptive to the whole family. Patient reluctantly endorses this. We talked about consideration of gabapentin and he is willing to make a commitment to be on this medication on a regular basis at least for the next month to see how he does with his symptoms. I reviewed briefly the fact that it is off label and it has potential side effects and needs to be ramped and weaned. His understood all of this since she has been on this medication for 15 years and she manages his meds at home. Finally, we offered consideration of lumbar epidural steroid injection. He may be getting some nerve irritation at the L4-5 level on the RIGHT side and the patient and his are interested in trying that injection to see if it would give some extra relief. The uncertainty of this was discussed during today's office visit and we discussed the risks and potential benefits of the procedure. If the L4-5 level does not give much relief, I would possibly give consideration to a trial at L3-4 in the future, as the EMG study seem to indicate that as an additional possible symptom generator. Current SM Meds: Neurontin Previous SM Meds: NONE Current Meds OP: Tylenol Previous Meds OP: Percocet, Zanaflex Routing to provider for review. Routing to provider as FYI. documented in this encounter [facility] 04-01-2025 Telephone encounter Note SOCIAL WORK FOLLOW UP NOTE: [facility] Separate SW encounter entered with phone call details with Louise. Dr. Rush Samuel is asking for a prescription for a rollator for Nico. If you could print, I can fax to DME close to their home. Thank you, ISAC Byrnes [facility] 04-01-2025 Telephone encounter Note SOCIAL WORK FOLLOW UP NOTE: [facility] Date of service: March 31, 2025 Oseas Joseph is being seen for a follow up social work visit. Today's visit includes: spouse and daughter TOPICS ADDRESSED: SW received call from pt's this date. Louise is inquiring about DME equipment to assist pt around the home. She reports she is having increased difficulty helping pt out of the chair, the bed, and navigating the home. She reports their home is already handicap accessible but is inquiring about a rollator and shower stools for pt. Louise volunteered that she does not want to move towards home health or assisted living quite yet. She reports she plans to take any transitions slowly. SW discussed with Louise how to acquire shower stools as those generally aren't covered by Medicare. SW will send a separate encounter to Dr. Mccain this date for a prescription for a rollator to be covered by Medicare. SW inquired of pt how she is doing and how she is managing, pt's daughter got on the phone and stated sorry, she broke down. It's been really hard on her. SW and daughter discussed supports available to Louise and offered to refer Louise for different supports if desired. Daughter reports that she has already planned to connect Louise to a family friend who took care of her own late for many years. Pt's daughter is hopeful this will be a positive and supportive relationship for Louise. SW discussed with daughter as well the plan to have physician send a script for the rollator. Daughter also reports that she and her sister are both school child care attendant who live close to pt. She reports they are able to be a significant help to pt and Louise over the summer months. Per chart review, pt has appointments next month to receive steroid injection for ongoing leg pain. The family is hopeful that this will improve pt's mobility as well. PLAN: Communicate pertinent medical/psychosocial information to [facility] team, Continue follow up as needed , and Provide emotional support to patient/family F/U APPOINTMENT: PRN Assigned SW listed in Care Team tab: Yes ISAC Byrnes [facility] 04-01-2025 Miscellaneous Notes SOCIAL WORK FOLLOW UP NOTE: [facility] Date of service: March 31, 2025 Oseas Joseph is being seen for a follow up social work visit. Today's visit includes: spouse and daughter TOPICS ADDRESSED: SW received call from pt's this date. Louise is inquiring about DME equipment to assist pt around the home. She reports she is having increased difficulty helping pt out of the chair, the bed, and navigating the home. She reports their home is already handicap accessible but is inquiring about a rollator and shower stools for pt. Louise volunteered that she does not want to move towards home health or assisted living quite yet. She reports she plans to take any transitions slowly. SW discussed with Louise how to acquire shower stools as those generally aren't covered by Medicare. SW will send a separate encounter to Dr. Mccain this date for a prescription for a rollator to be covered by Medicare. SW inquired of pt how she is doing and how she is managing, pt's daughter got on the phone and stated sorry, she broke down. It's been really hard on her. SW and daughter discussed supports available to Louise and offered to refer Louise for different supports if desired. Daughter reports that she has already planned to connect Louise to a family friend who took care of her own late for many years. Pt's daughter is hopeful this will be a positive and supportive relationship for Louise. SW discussed with daughter as well the plan to have physician send a script for the rollator. Daughter also reports that she and her sister are both school child care attendant who live close to pt. She reports they are able to be a significant help to pt and Louise over the summer months. Per chart review, pt has appointments next month to receive steroid injection for ongoing leg pain. The family is hopeful that this will improve pt's mobility as well. PLAN: Communicate pertinent medical/psychosocial information to [facility] Center team, Continue follow up as needed , and Provide emotional support to patient/family F/U APPOINTMENT: PRN Assigned SW listed in Care Team tab: Yes ISAC Byrnes documented in this encounter [facility] 03-31-2025 Telephone encounter Note [place]: 03/14/2025 w/Eunice Morales PA-C PLAN: We had a long talk about his symptoms and the effect that it is having on him as an individual and even on the rest of the family. Patient apparently has quite a bit of leg pain and the amount of pain is somewhat disruptive to the whole family. Patient reluctantly endorses this. We talked about consideration of gabapentin and he is willing to make a commitment to be on this medication on a regular basis at least for the next month to see how he does with his symptoms. I reviewed briefly the fact that it is off label and it has potential side effects and needs to be ramped and weaned. His understood all of this since she has been on this medication for 15 years and she manages his meds at home. Finally, we offered consideration of lumbar epidural steroid injection. He may be getting some nerve irritation at the L4-5 level on the RIGHT side and the patient and his are interested in trying that injection to see if it would give some extra relief. The uncertainty of this was discussed during today's office visit and we discussed the risks and potential benefits of the procedure. If the L4-5 level does not give much relief, I would possibly give consideration to a trial at L3-4 in the future, as the EMG study seem to indicate that as an additional possible symptom generator. Current SM Meds: Neurontin Previous SM Meds: NONE Current Meds OP: Tylenol Previous Meds OP: Percocet, Zanaflex Routing to provider for review. [facility] 03-25-2025 Telephone encounter Note Routing to provider as FYI. [facility] 03-25-2025 Telephone encounter Note PSS- patient needs lab and OV with Dr. Mccain in May. Patient is on clinical trial. Betsy Henriquez LPN T [facility] 03-25-2025 Miscellaneous Notes PSS- patient needs lab and OV with Dr. Mccain in May. Patient is on clinical trial. Betsy Henriquez LPN documented in this encounter [facility] 03-24-2025 Telephone encounter Note Procedure: Right L4-5 TFESI Procedure Date: 04/24/2025 Cardiac Clearance: Xarelto Cardiac Clearance letter generated and faxed to patient's oncologist, Dr. Connie Mccain, for approval to proceed with injection procedure and hold anticoagulation for recommended time frame. Fax confirmation received. Awaiting determination. Connie Mccain, DO [address] [facility] [facility] [id number] [facility] 03-24-2025 Miscellaneous Notes Procedure: Right L4-5 TFESI Procedure Date: 04/24/2025 Cardiac Clearance: Xarelto Cardiac Clearance letter generated and faxed to patient's oncologist, Dr. Connie Mccain, for approval to proceed with injection procedure and hold anticoagulation for recommended time frame. Fax confirmation received. Awaiting determination. Connie Mccain DO [address] [facility] [id number] documented in this encounter [facility] 03-21-2025 History of Present illness Narrative Patient scheduled for injection during today's OV. Patient scheduled for: APRIL 24, 2025 Patient instructed to hold the following medication(s) prior to the procedure: - Xarelto- hold it for 3 days prior to the procedure Pre-procedure instructions discussed during OV and paper copy of instructions handed to patient. Patient verbalized understanding. Gail Ramos MA Images from the original note were not included. Eunice Morales PA-C [facility] [address] [id number] 03/21/2025 ASSESSMENT AND PLAN: Assessment : Encounter Diagnosis ICD-10-CM 1. Lumbar radiculopathy M54.16 SPINE INTERVENTION PROCEDURE gabapentin (NEURONTIN) 300 mg capsule 2. 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 Joseph is a pleasant 74-year-old man accompanied by his at today's office visit. He is here for evaluation of RIGHT LE radiating symptoms essentially without low back pain. He has current MRI study and older MRI study from about a year and a half ago as well. Patient has history of Lewy body dementia and his does help out a fair amount with recollection of medical history and issues. Patient also has a history of multiple myeloma. Patient's symptoms seem to be primarily in the thigh area of the right leg and not as much below the knee. He is a little unclear about the specificity of where his symptoms travel. EXAM Highlights: Slow to mobilize and somewhat unsteady as he stands. His stance and gait are a little bit shaky and he tends to favor the RIGHT leg. Gait is also flexed and favors the right. Balance is significantly diminished I cannot detect focal motor or reflex deficit. He says he has some mild sensory deficit in the RIGHT anterior lateral thigh area but this is intermittent. Seated SLR's are negative bilaterally but he does not fully straighten out his knees on either side so this likely contributes to his positive sagittal balance when he is standing and walking. IMAGING: I reviewed his most recent lumbar MRI study and compared this to the MRI done in September 2023. He has no significant central stenosis but there is some foraminal stenosis at L4 through S1. Unfortunately, it is not clearly worse on one side versus the other and his symptoms are limited to the RIGHT side. There does not appear to be fracture or instability or listhesis but overall age-appropriate degenerative findings are also seen. EMG study completed on 03/14/2025 indicated chronic spinal motor radiculopathy at L3-4 on the RIGHT side that was mild to moderate. SUMMARY/PLAN: We had a long talk about his symptoms and the effect that it is having on him as an individual and even on the rest of the family. Patient apparently has quite a bit of leg pain and the amount of pain is somewhat disruptive to the whole family. Patient reluctantly endorses this. We talked about consideration of gabapentin and he is willing to make a commitment to be on this medication on a regular basis at least for the next month to see how he does with his symptoms. I reviewed briefly the fact that it is off label and it has potential side effects and needs to be ramped and weaned. His understood all of this since she has been on this medication for 15 years and she manages his meds at home. Finally, we offered consideration of lumbar epidural steroid injection. He may be getting some nerve irritation at the L4-5 level on the RIGHT side and the patient and his are interested in trying that injection to see if it would give some extra relief. The uncertainty of this was discussed during today's office visit and we discussed the risks and potential benefits of the procedure. If the L4-5 level does not give much relief, I would possibly give consideration to a trial at L3-4 in the future, as the EMG study seem to indicate that as an additional possible symptom generator. Plan : REFERAL FOR SERVICES: -Consult to Pain Anesthesia: The purpose will be for both diagnostic and therapeutic purposes. The patient is instructed to pay attention to the amount of pain during the anesthetic phase, and during that time to perform the activities that typically exacerbate the pain to determine what percentage of relief is gained. The patient is instructed that the steroid phase of the injection may take up to a week or more to provide relief, and to pay attention to the percentage of relief obtained during the steroid phase. If the steroid phase gives significant pain relief, the procedure can be repeated. MEDICATIONS: -See prescribed medication list for this encounter. -Nerve membrane stabilizer medication (gabapentin or pregabalin) was prescribed. Off-label use, importance of (and suggested schedule for) ramping and weaning, and expected side effects discussed with the patient during today's visit. ACTIVITY RECOMMENDATIONS: -The patient is encouraged to avoid bed rest and maintain normal activity. FOLLOW-UP: -The patient is instructed to return in about 1 month for follow-up after injection. This document has been created with the use of voice recognition technology. It may contain inaccuracies: (e.g. misspellings, inaccurate syntax or word sense) that have escaped review. Time spent: 48 minutes today with this patient visit. This includes [id number] time, review of chart records regarding conservative care history, spine-pertinent imaging, and communication/care coordination with referring provider, problem-specific history-taking and counseling/education regarding treatment options. cc: No referring provider defined for this encounter. Phone: N/A Fax: Results of consultation to be transmitted via electronic medical record for those providers who practice within [facility] or with access to [employer] via MD Connect, or via letter. ____ ################################## ################################## #### CHIEF COMPLAINT: Patient is here for the right leg pain, pain goes down and stops above the ankle. Pain started about 6 months ago, woke up with the leg pain. Level of th ep[ain is at 6-7/10 sitting. Limping a lot. Walking and standing is more painful. HPI: see Discussion above History of bowel or bladder dysfunction (not IBS or constipation): No History of previous spinal surgery: No History of spinal fracture: No Work Status: retired NON-OPERATIVE CARE: Medication(s): He has tried the following for relief of his symptoms: OTC Tylenol Physical Therapy: He has not had physical therapy for his current symptoms. Spinal Injections: He has not gotten prior spinal injections. Other: None Current Outpatient Medications Medication Sig Dispense Refill REVLIMID 5 mg capsule TAKE 1 CAPSULE BY MOUTH DAILY FOR 28 DAYS 28 capsule 0 XARELTO 20 mg tablet TAKE 1 TABLET BY MOUTH ONCE DAILY WITH SUPPER 30 tablet 0 donepezil (ARICEPT) 10 mg tablet Take 1 tablet by mouth daily with breakfast. 30 tablet 3 acyclovir (ZOVIRAX) 400 mg tablet Take 1 tablet by mouth two times a day. 180 tablet 3 acetaminophen (TYLENOL EXTRA STRENGTH) 500 mg tablet Take 1,000 mg by mouth every 8 hours as needed. cyanocobalamin (VITAMIN B-12) 1,000 mcg tab Take 2,000 mcg by mouth once daily. folic acid 800 mcg tablet Take 400 mcg by mouth once daily. glimepiride (AMARYL) 2 mg tablet Take 1 tablet by mouth daily with breakfast. Take 2 mg twice a day. May increase to 4mg BID if your PCP requests so. ondansetron (ZOFRAN) 8 mg tablet Take 1 tablet by mouth every 8 hours as needed for nausea/vomiting. 30 tablet 2 clonazePAM (KLONOPIN) 0.5 mg tablet Take 0.5 mg by mouth once daily. amLODIPine (NORVASC) 5 mg tablet Take 10 mg by mouth once daily. atorvastatin (LIPITOR) 10 mg tablet Take 10 mg by mouth once daily. losartan (COZAAR) 50 mg tablet Take 50 mg by mouth once daily. No current facility-administered medications for this visit. Allergies: Patient has no known allergies. PAST MEDICAL HISTORY Diagnosis Date Arthritis Chronic diarrhea Malignant melanoma (HCC) Mixed hyperlipidemia Multiple myeloma not having achieved remission (HCC) 10/26/2022 Other hyperlipidemia 04/17/2023 Primary hypertension 04/17/2023 Pulmonary embolism (HCC) Right bundle branch block 04/17/2023 Type 2 diabetes mellitus, without long-term current use of insulin (HCC) 04/17/2023 PAST SURGICAL HISTORY Procedure Laterality Date REPAIR INCISIONAL HERNIA,REDUCIBLE 8th grade SKIN BX, 1 LESION 06/2022 Social History Tobacco Use Smoking status: Never Smokeless tobacco: Never Vaping Use Vaping status: Never Used Substance Use Topics Alcohol use: Not Currently Comment: social Drug use: Never FAMILY HISTORY Problem Relation Age of Onset Diabetes Mother Hypertension Mother Renal Disease Mother Hypertension Father Diabetes Father Hypertension Sister Diabetes Sister No Known Problems Sister No Known Problems Sister No Known Problems Sister No Known Problems Sister Heart Sister Hypertension Brother Diabetes Brother Hyperlipidemia Brother Heart Brother Hypertension Maternal Grandmother Diabetes Maternal Grandmother Colon Cancer Paternal Grandmother Hypertension Paternal Grandfather REVIEW OF SYSTEMS: Constitutional: (-) Fever/Chills (-) Night Sweats (-) Weight Gain (-) Weight Loss Gastrointestinal: (-) Abdominal Pain (+) Diarrhea (-) Constipation (-) Heart Burn Cardiovascular: (-) Chest Pain (-) Palpitations (-) Lightheadedness (-) Hx Heart Surgery/Stent Respiratory: (-) Short of Breath (-) Cough (+) Snoring Neurologic: (-) Headache (-) Blurry Vision (-) Fainting Skin: (-) Rashes (-) Itching (-) Other Lesions Psychiatric: (-) Depression (-) Anxiety (-) Suicidal Thoughts Genitourinary: (-) Frequency (-) Urgency Endocrine: (-) Thyroid Disorder (+) Diabetes Hematologic: (-) Prolonged Bleeding (+) Easy Bruising ################################## ################################## ################################## ########################### PHYSICAL EXAM: Blood pressure 129/72, pulse (!) 51, height 182.9 cm (6'), weight 85.6 kg (188 lb 11.4 oz), SpO2 99%. Body mass index is 25.59 kg/m . General: Patient is a(n) poor historian, but his helps out with this due to patient's Lewy body dementia.. The patient appears approximately the recorded age and is sitting comfortably in the examining room. The patient is tall in stature and is average weight in appearance. This individual has difficulty arising from a sitting position and does have difficulty acquiring a full, upright position when standing. Station and Gait: flexed posture and antalgic gait leaning forward and favoring the right lower extremity The patient is unable to walk in a tandem gait. MENTAL STATUS EXAMINATION: The patient was well groomed and casually attired. The patient had good eye contact and rapport was average to establish. The patient appeared to be slightly confused at times regarding specific questions and needed help getting those questions answered. He is overall able to respond to simple questions appropriately and has the ability to carry on essentially normal conversation about current situations. The patient's overall medical judgment appeared to be poor, but his helped to fill in gaps of his understanding and the patient ended up verbalizing understanding.The patient's motivation for treatment was judged based on today's encounter to be good. SPINE: Lumbar Lordosis: Decreased/flattened Thoracic Kyphosis: Increased PALPATION TENDERNESS: No tenderness to palpation throughout axial spine and posterior pelvic bony prominences Hyperesthesia present: No Regional symptoms present: No Increased pain with axial loading: No Distraction: Normal Pain responses: appropriate NEUROLOGIC EXAM: MOTOR: Requires verbal cues to minimize cog-wheel or give-way resistance: No Hip Flexor R: 5/5 L: 5/5 Hip Abductor R: 5/5 L: 5/5 Hip Adductor R: 5/5 L: 5/5 Knee Extension R: 5/5 L: 5/5 Foot Dorsiflexion R: 5/5 L: 5/5 Foot Plantar Flexion R: 5/5 L: 5/5 Ext Hallicus Longus R: 5/5 L: 5/5 Toe Extensors R: 5/5 L: 5/5 SENSATION to Light Touch: Lumbar: L4: R: Abnormal: Noted findings are decreased sensation to light touch within this dermatome., L: Normal REFLEXES: Lower Extremity: Patella tendon: R: 1+ L: 1+ Achilles tendon: R: 0 L: 0 Clonus: R: 0 beats/Normal L: 0 beats/Normal Babinski Sign: Negative bilaterally. VASCULAR: Skin appearance: Right: Warm/pink Left: Warm/pink Capillary refill: Right: brisk Left: brisk ADDITIONAL MUSCULOSKELETAL EXAM: HIP/PELVIS EXAM: Tenderness over the PSIS: Right: No Left: No Greater Trochanteric pain: Right: No Left: No SPECIAL TESTS: Straight Leg Raise: negative bilaterally Contralateral Straight Leg Raise: negative bilaterally IMAGING STUDIES: See discussion above documented in this encounter [facility] 03-21-2025 Instructions Eunice Morales PA-C - 03/21/2025 10:00 AM EDT Instructions regarding gabapentin medication: The pill bottle will indicate that you are to take 1 pill 3 times a day, but most individuals will find that it will help to slowly start the medication as follows: For the first few days, start by taking 1 pill an hour or two before bedtime. This may help you to sleep a little bit better and you will be sleeping off some of the side effects. When you get to a point where you can wake up and not feel too many residual side effects, then go ahead and start to take an additional pill. You can split this into a bedtime dose and a daytime dose if you wish or you could consider taking both pills before bedtime. It may take a while longer for you to get used to 2 pills. Finally, if/when you get to the point that you tolerate both pills well, you may add your third dose. Make sure that you are not taking all 3 pills at 1 time. Remember that since this medication was originally designed as an anti-seizure medication, the following 4 things are also true: It often takes a while (about 2-3 weeks) for this medication to have its full effect for your nerves. It must be taken regularly in order for it to work well. You must also taper off of it slowly when you decide to discontinue therapy (normally, 1-2 weeks' taper is fine). Side effects will usually (but not always) fade away as you continue the medication. If you can only manage 1 or 2 pills a day (without having too many side effects), that is also fine--as long as you notice some relief of symptoms. The expected side effects are very similar to what you might expect for either an opioid or a muscle relaxant: Sleepy, groggy, balance problems, feeling a little hazy, disoriented, or confused. documented in this encounter [facility] 03-07-2025 Telephone encounter Note Scheduled as requested Venessa Meehan [facility] 03-07-2025 Miscellaneous Notes Scheduled as requested Venessa Meehan documented in this encounter [facility] 03-07-2025 Telephone encounter Note Scheduled as requested Venessa Meehan [facility] 03-07-2025 Miscellaneous Notes Scheduled as requested Venessa Meehan Lvm for patient to return the call Venessa Meehan He needs an office visit with me or one of the lens grinder and polisher in a month. CBC/CMP/myeloma labs/24-hour urine M spike. Connie Mccain DO Please advise on AVS for 03/06 for scheduling. Thank you. 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 CBC/CMP/myeloma labs/24-hour urine M spike. Connie Mccain DO [facility] 03-06-2025 Telephone encounter Note Please advise on AVS for 03/06 for scheduling. Thank you. [facility] Work Phone: 03-06-2025 History of Present illness Narrative IRB # [id number], [facility]# [id number] study entitled Phase III Study of Daratumumab/rHuPH20 (NSC- [id number]) + Lenalidomide or Lenalidomide as Post-Autologous Stem Cell Transplant Maintenance Therapy in Patients with Multiple Myeloma (MM) Using Minimal Residual Disease to Direct Therapy Duration (DRAMMATIC Study). Registration Information: Informed Consent Signed 01/03/2023 Registered Step 1 01/06/2023 Informed Consent Signed Step 2 07/22/2023 Randomization Date: 08/18/2023 Addendum 11/16/2023 Treatment Arm: TAC- 1 Lenalidomide Study ID [id number] Consent to optional samples Yes Study Status Active Patient was here for Cycle 21 and saw Connie Mccain D.O.. All of the patients and his 's questions were answered at this time in regards to right leg issues returning - MRI and EMG completed, memory issues, and labs. Patient doing much better overall per family and patient, but continued memory issues. The patient got his hearing aides and that is helping. Treatment Plan: Treatment Previous Cycle Cycle Current Start Date Frequency End date Lenalidomide Cycle 1 Day 1 08/24/2023 Dose Reduced 05/12/2024 5mg Cycle 20 02/06/2025 - 03/05/2025 Cycle 21 03/06/2025 - 04/02/2025 10/19/2023 Daily, Cycle every 28 days Clinical Trial Specific Testing Test Dates Completed Due Date Bone Marrow Biopsy CTD 07/24/2023 Baseline Step 2 [x] 07/18/2024 12 months post Step 2 [x] 07/24/2025 24 months post Step 2 [] 07/24/2026 36 months post Step 2 [] 07/24/2027 48 months post Step 2 [] QOLs PRO-CTCAE 08/17/2023 (Baseline) [x] 08/24/2023 (Cycle 1) [x] 09/21/2023 (Cycle 2) [x] 10/19/2023 (Cycle 3) [x] 11/16/2023 (Cycle 4) [x] 12/14/2023 (Cycle 5) [x] 01/11/2024 (Cycle 6) [x] 02/08/2024 (Cycle 7) [x] 03/07/2024 (Cycle 8) [x] 04/04/2024 (Cycle 9) [x] 05/02/2024 (Cycle 10) [x] 05/29/2024 (Cycle 11) [x] 06/27/2024 (Cycle 12) [x] 07/25/2024 (Cycle 13) and annual PROMIS-29 and Intolerance [x] 08/22/2024 (Cycle 14) [x] 09/18/2024 (Cycle 15) [x] 10/17/2024 (Cycle 16) [x] 11/14/2024 (Cycle 17) [x] 12/12/2024 (Cycle 18) [x] 01/09/2025 (Cycle 19) [x] 02/06/2025 (Cycle 20) [x] (Cycle 21) [x] Day 1 of every cycle Baseline Weight (08/24/2023 date) 80.7 kg Current Weight 84.8 kg Creatinine Clearance 52.7 ml/min ECOG per ECOG- 1 Bone Marrow - Plasma Cell % Free Light Chains M Protein Date Size (mm) Date [place] Lambda * IGG Date Serum Urine Diagnosis 08/24/2022 20% Diagnosis 10/26/2022 11.7 43.5 Diagnosis 10/26/2022 1.12 M protein present Baseline 07/30/2023 Less than 5%* Baseline 08/07/2023 4.7 2.5 Enrollment 07/31/2023 Cycle 1 0.22 0.00 08/24/2023 Cycle 1 4.1* 2.4* 08/24/2023 Cycle 1 0.28 0.00 09/21/2023 Cycle 2 11.7 8.7 09/21/2023 Cycle 2 0.17 0.01 10/19/2023 Cycle 3 15.5 10.5 10/19/2023 Cycle 3 0.16 0.01 11/16/2023 Cycle 4 17.4 21.4 11/16/2023 Cycle 4 0.20 0.00 12/14/2023 Cycle 5 19.4 23.1 12/14/2023 Cycle 5 0.00* 0.00 01/11/2024 Cycle 6 25.8 19.4 01/11/2024 Cycle 6 0.15 0.00 02/08/2024 Cycle 7 24.2 20.4 02/08/2024 Cycle 7 0.00* 0.00 03/07/2024 Cycle 8 22.0 15.3 03/07/2024 Cycle 8 0.23 0.0 04/04/2024 Cycle 9 22.4 17.5 04/04/2024 Cycle 9 0.24 0.00 05/02/2024 Cycle 10 23.2 16.5 05/02/2024 Cycle 10 0.00* 0.00 05/29/2024 Cycle 11 23.7 15.3 05/29/2024 Cycle 11 0.00* 0.00 06/27/2024 Cycle 12 27.7 19.3 06/27/2024 Cycle 12 0.25 0.00 07/25/2024 Cycle 13 37.8 21.5 07/25/2024 Cycle 13 0.19 0.00 08/22/2024 Cycle 14 25.2 15.7 08/22/2024 Cycle 14 0.25 0.00 09/18/2024 Cycle 15 20.5 13.2 09/18/2024 Cycle 15 0.23 0.00 10/17/2024 Cycle 16 22.8 15.2 10/17/2024 Cycle 16 0.33 0.00 11/14/2024 Cycle 17 21.6 15.4 11/14/2024 Cycle 17 0.20 0.00 12/12/2024 Cycle 18 28.0 18.3 12/12/2024 Cycle 18 0.15 0.00 01/09/2025 Cycle 19 24.7 16.7 01/09/2025 Cycle 19 0.00* 0.00 02/06/2025 Cycle 20 23.9 15.1 02/06/2025 Cycle 20 0.00* 0.00 03/06/2025 Cycle 21 Pending Pending 03/06/2025 Cycle 21 Pending Pending Lowest/Jacque = * 03/06/25 Weight 84.8 kg (187 lb) BSA 0 BMI 0 Temp 36.7 C (98.1 F) Pulse 54 ! Resp 12 BP 134/77 SpO2 98 % !: Data is abnormal Drug Accountability/Education - Completed on 03/06/2025. Patient given Cycle 21 diary. Patient did return Cycle 20. Use of the study medication diary and dosing instructions were reviewed with the patient. Patient verbalizes understanding of dosing of Revlimid: Capsules should be taken whole, with water, once daily (patient takes at HS). If a dose is missed, and it has been less than 12 hours since the preceding dose, the patient should take lenalidomide as soon as the patient remembers. If it has been more than 12 hours, the patient should skip the missed dose. Patient took pills for the cycle - determining 100% compliance Patient receives drug from a private pharmacy. Lenalidomide Education and Counseling completed. Patient counseled on potential exposure to lenalidomide by Bright, engage in abstinence or use a condom when engaging in sexual contact with [facility], notify study doctor if female partner becomes , never share drug with anyone else, not to donate blood, semen, or sperm while taking drug and for 28 days after. Concomitant medications reviewed per protocol: Yes Patient reported changes to medication list: No changes since last visit. Current medications: Current use of anticoagulants: YES (see medications below if applicable) Anticoagulants: Eliquis 5 mg Current use of herbal preparations or medications: No Prophylactic shingles medication: Acyclovir 400 mg Current Outpatient Medications Medication Sig Start/Stop Use acyclovir (ZOVIRAX) 400 mg tablet Take 1 tablet by mouth twice daily. 05/01/2023 Prophylactic shingles ondansetron (ZOFRAN) 8 mg tablet Take 1 tablet by mouth every 8 hours as needed for nausea/vomiting. 10/26/2022 PRN Nausea clonazePAM (KLONOPIN) 0.5 mg tablet Take 0.5 mg by mouth once daily. 07/29/2023 Anxiety glimepiride (AMARYL) 4 mg tablet Take 2 capsules by mouth in AM & 1 capsule in PM. >5 years Type 2 amLODIPine (NORVASC) 5 mg tablet Take 5 mg by mouth once daily. 02/10/2021 Hypertension atorvastatin (LIPITOR) 10 mg tablet Take 10 mg by mouth once daily. 02/10/2021 Cholesterol losartan (COZAAR) 50 mg tablet Take 50 mg by mouth once daily. 02/10/2021 Hypertension Loperamide (Imodium Oral) Take 2 tablet by mouth as needed >5 years Diarrhea Sildenafil (Viagra) 50 mg tablet Take 50 mg by mouth as needed. >10 years ED Eliquis 5 mg tablet Take 1 tablet by mouth twice daily 03/23/2023 Preventative -blood thinner Melatonin 5 mg Take 1 tablet at bedtime 03/23/2023 Insomnia Revlimid 10 mg Take 1 capsule daily in the morning 08/24/2023 Stopped: 05/12/2024 MM treatment Revlimid 5 mg Take 1 capsule daily in the morning 05/12/2024 MM treatment Linzess 72 mcg Take 1 capsule for constipation symptoms once a day as needed for constipation 12/31/2023 Constipation Azithromycin (ZITHROMAX) 500 mg tablet Take 1 tablet by mouth daily 02/02/2024 Completed 02/05/2024 Antibiotic Donepezil (ARICEPT) 5mg Increased to 10mg Take 1 tablet by mouth daily 01/23/2025 Increased:02/24/2025 to 10mg Alzheimer Amoxicillin K Clav 875-125mg Take 2 times daily Start:02/11/2025 Stopped:02/22/2025 Lung Infection No current facility-administered medications for this visit. Medical History: PAST MEDICAL HISTORY Diagnosis Date Arthritis Treated with medication Chronic diarrhea Resolved and now constipation Diabetes mellitus (HCC) Treated with medication Essential hypertension Treated with medication Mixed hyperlipidemia Treated with medication Alzheimer 01/30/2025 PAST MEDICAL HISTORY Diagnosis Date Arthritis Treated with medication Chronic diarrhea Resolved Malignant melanoma (HCC) On back removed - precancerous and 06/2022 non cancerous Mixed hyperlipidemia Treated with medication Multiple myeloma not having achieved remission (HCC) Treated with medication Primary hypertension Treated with medication Pulmonary embolism (HCC) Treated with medication Right bundle branch block Treated with medication Type 2 diabetes mellitus, without long-term current use of insulin (HCC) Treated with medication Surgical History: PAST SURGICAL HISTORY Procedure Laterality Date REPAIR INCISIONAL HERNIA,REDUCIBLE Resolved 8th grade SKIN BX, 1 LESION 06/2022 non cancerous Baseline Toxicities per CTCAE v. 5: All predate therapy, are chronic conditions and will not be actively followed unless they worsen during the clinical trial. Hyperglycemia; Grade 1: Start Date: >5 years PRIOR TO STUDY Drugs to Treat: Glimepiride Action Required: None Outcome: Ongoing. (Chronic) Diarrhea; Grade 1: INTERMITTENT Start Date: >5 years PRIOR TO STUDY Drugs to Treat: Imodium Action Required: None Outcome: Ongoing. Anemia; Grade 1: Start Date: Intermittent PRIOR TO STUDY 07/24/2023 Drugs to Treat: None. Action Required: None Outcome: See Below. Aspartate aminotransferase decreased; Grade 1: Start Date: Intermittent PRIOR TO STUDY Drugs to Treat: None. Action Required: None Outcome: Ongoing Alanine aminotransferase decreased; Grade 1: Start Date: Intermittent PRIOR TO STUDY Drugs to Treat: None. Action Required: None Outcome: Ongoing Insomnia; Grade 1: Start Date: Intermittent PRIOR TO STUDY 07/21/2023 Drugs to Treat: None. Action Required: None Outcome: Ongoing. Lymphocyte Count Decreased; Grade 1: Start Date: Intermittent PRIOR TO STUDY- Possibly related to Revlimid and Drugs to Treat: None. Action Required: None Outcome: Toxicities per CTCAE v. 5: White Blood Cell Count Decreased; Grade 1: Start Date: 10/17/2024. Related to Lenalidomide and cold. Drugs to Treat: None. Action Required: None Outcome: ONGOING Memory Impairment; Alzheimer; Grade 1: Start Date: 02/08/2024. Unrelated to Lenalidomide. Drugs to Treat: None. Action Required: None Outcome: Ongoing Creatinine Increased: Grade 1: Start Date: 11/14/2024. Possibly related to Lenalidomide but more due to dehydration. Drugs to Treat: None. Action Required: Zometa held and increase fluid intake Outcome: Ongoing Weight Loss: Grade 1: Start Date: 08/2023. Unrelated to study drug - due to transplant. Drugs to Treat: None. Action Required: None Outcome: Ongoing Hypertension: Grade 1. Start Date: 03/06/2025. Unrelated to Lenalidomide. Drugs to Treat: None. Action Required: None. Outcome: Ongoing. Sinus Bradycardia: Grade 1. Start Date: 03/06/2025. Unrelated to Lenalidomide - Related to Donepezil. Drugs to Treat: None. Action Required: None. Outcome: Ongoing. Platelet Count Decreased: Grade 1. Start Date: 03/06/2025. Related to Lenalidomide. Drugs to Treat: None. Action Required: None. Outcome: Ongoing. Lung Infection: Grade 1. Start Date: 02/11/2025. RESOLVED:02/22/2025 Related to grandchildren and not related to Lenalidomide. Drugs to Treat: None. Action Required: None. Outcome: RESOLVED Patient turned in a 24 hour urine: Yes Chart sent the overseeing physician to review CTCAE toxicities. Patient knows to [facility] 04/03/2025 for C22. Patient knows to call in the interim for any questions or concerns. Patient has contact information for Uma Gill Research Nurse and Dr. Mccain, along with the office number. All other abnormal lab values are deemed not clinically significant and therefor will not be graded. Treating provider has reviewed and agrees with Adverse Events above. Chart being routed to Connie Mccain D.O.. Patient meets all Criteria for Study Participation: Yes REID Bynum, RN Clinical Research Nurse [phone] documented in this encounter [facility] 03-06-2025 History of Present illness Narrative Oncologic problem(s): 1) IgG lambda multiple myeloma. HPI: The patient is a 74-year-old male with a past medical history significant for type 2 diabetes, high cholesterol, hypertension and right bundle branch block. Patient originally presented to the emergency room at [facility] on 04/19/2022 with new onset of confusion that day which had been worsening. Laboratory work-up significant for hypokalemia. CT of the brain was unremarkable. He was admitted. During hospitalization it was noted that he had been having diarrhea for 6 to 8 weeks. Stool studies were positive for Campylobacter, blood and lactoferrin. C. difficile was negative. CT of the abdomen pelvis on 04/21/2022 noted abnormal pericholecystic edema without gallstones. Renal cysts and colonic diverticulosis were noted. He was found to have elevation of sed rate to 39, CRP 134. His albumin was 2.3. IgA low at 37. He was discharged on azithromycin, potassium and magnesium supplement. He was seen in the outpatient setting for follow-up visit on 07/11/2022. He continued to have one episode of explosive diarrhea daily. This had been going on for about 8 months. CBC on 07/11 showed a white count of 6400. Differential was normal. Hemoglobin 14.9 g/dL. Platelet count 275,000. Chemistries significant for creatinine of 1.29 g/dL. Previously 1.13 g/dL on 04/27/2022. Calcium was 9.3 mg/dL. Total bilirubin, AST, ALT and alkaline phosphatase were normal. LDH was 181. C-reactive protein was less than 2.09. Total protein was 8.8 g/dL. Total IgG was 2462 mg/dL. IgA decreased to 28 mg/dL. IgM normal at 32 mg/dL. On protein electrophoresis, patient was found to have 2M spikes both IgG lambda by immunofixation. For spike was quantitated at 1.2 g/dL and the second was quantitated at 0.6 g/dL. Cytoplasmic and perinuclear ANCA both negative. Atypical p-ANCA negative. Patient described diarrhea as loose, eran stools sometimes explosive typically one bowel movement per day however. He had not observed any blood. Had a colonoscopy December [address] Arteaga. His appetite was normal. He had not lost weight. Denied reflux and nausea. He did get abdominal bloating associated with the diarrhea. He denied musculoskeletal pain. He denied symptoms of sensory neuropathy. He sees an team supervisor once a year for dilated exam. He has not been told he has retinopathy. Recent removal of early melanoma back. Blue nevus right ankle--required WLE--scheduled. PMR--about 15 years ago. Patient underwent colonoscopy on 09/21/2022. Preparation of the colon was fair. -One 6 mm polyp at the ileocecal valve, removed with a hot snare. Resected and retrieved. -One 5 mm polyp in the ascending colon, removed with a hot snare. Resected and retrieved. -Congested mucosa in the descending colon, at the splenic flexure, in the ascending colon and in the cecum. Biopsied. -Diverticulosis in the recto-sigmoid colon, in the sigmoid colon and in the descending colon. -Stool in the rectum, in the sigmoid colon, in the descending colon and at the hepatic flexure. Fluid aspiration performed. -The examined portion of the ileum was normal. Biopsied. Pathology: A. Ileocecal valve polyp, biopsy: -Consistent with fibrolipomatous polyp. -See comment. B. Small bowel, biopsy: -No pathologic change. C. Cecum, biopsy: -Mild melanosis coli. D. Colon, random biopsy: -Mild melanosis coli. E. Ascending colon polyp, biopsy: -Fragments of tubular adenoma. B, C, D & E - No congophilic material identified. Congo red stain with matched control is negative. ADDENDUM C & D. No congophilic material is noted in these biopsies on light and polarized microscopy. Congo Red stain with matched control was used in the evaluation of this case. He was diagnosed with pancreatic insufficiency and was to start pancreatic enzyme replacement. Patient had a venous duplex ultrasound on 12/16/2022 for right leg pain. That study demonstrated no evidence of DVT in the right leg. He developed chest pain and increasing shortness of breath. Went to the ED on 01/16/2023. PE protocol chest CT demonstrated multiple bilateral pulmonary emboli involving the distal portion of both the right and left main pulmonary arteries as well as branches of the upper and lower lobe pulmonary arteries, more prominent on the right side. Platelet count was 67,000. Patient was admitted and placed on unfractionated heparin with bolus. The next morning platelet count was 62,000. He was rotated to apixaban and discharged. Echocardiogram performed 01/17/2023 demonstrated normal LV size. There was moderate concentric LVH. Left ventricular systolic function was normal with an estimated ejection fraction at 60%. There was stage I diastolic dysfunction. The pulmonary artery systolic pressure was 58 mmHg. The global longitudinal strain was -11.5% (abnormal). The global longitudinal strain was moderately abnormal. (Previous echocardiogram 04/20/2022 demonstrated right ventricular systolic pressure estimated at 22 mmHg. Diastolic function was indeterminate. Right ventricular strain was not determined). His chest pain has improved. He is still short of breath with heavier exertion and sometimes walking from room to room he finds himself breathing heavier. He has been taking apixaban 10 mg twice daily. No bleeding issues. Previous therapy: 1) RVd. Cycle #1 began 11/09/2022. 2) Zometa. 3) ASCT. Transplant Summary: BMT Information ASCR infused on 06/02/2023 Planned Proposed Protocols: IP BMT AUTO MELPHALAN 200 Planned Preparative Regimen Drug: Melphalan Planned Mobilization Agent: G-CSF, Plerixafor Planned Stem Cell Source: Peripheral blood stem cells BMT Transplant Details # of cells: 6.16 Saw neurology. 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 Scheduled for EMG 01/16. Seen in the ED on 01/27/2024 for an episode of confusion that was secondary to hypoglycemia. Evidently had influenza diagnosed prior to that. Was then admitted for neutropenic fever on 01/31/2024. ANC was 600 at time of admission. Influenza A positive. Stool positive for Campylobacter. Was treated with high-dose Tamiflu secondary to underlying immunocompromise. Discharged on azithromycin 500 mg daily for 14 days. B/L hip injections 10/18. Helped significantly for several weeks. Wearing off and starting to have more pain both hips. Typically pain improves once up an moving. Denies pain otherwise. Presents for ongoing oncologic management. Interim history: Started on donepezil 5 mg beginning of January and increased to 10 mg 10 days ago. Bowels moving every 2 days--explosive firm to loose stools. Right leg pain has flared. From anterior thigh to ankle. He has been tolerating apixaban well with no unusual bleeding or unexplained bruising. PMH, medications and allergies personally reviewed by me today. Any changes documented in appropriate section. ROS: Constitutional: Denies episodes of fever and night sweats. Neuro: Denies HAMILTON. HEENT: No recent change in voice, vision. Resp: Denies cough, wheeze and hemoptysis. Denies shortness of breath at rest. Denies MACE. CVS: Denies exertional chest pain, PND, orthopnea and LE edema. : Denies dysuria or gross hematuria. Endo: Denies hot flashes. Denies polyuria and polydipsia. Denies heat and cold intolerance. Musculoskeletal: See HPI. Derm: Denies rash. Denies jaundice and diffuse pruritis. Heme: Denies unusual bleeding and unexplained bruising. Psych: Normal mood. PHYSICAL EXAM: Vitals: Blood pressure 134/77, pulse (!) 54, temperature 36.7 C (98.1 F), resp. rate 12, weight 84.8 kg (187 lb), SpO2 98%. Well-appearing and in no acute distress. EYES: Sclerae are anicteric bilaterally. LYMPHATIC: There is no palpable cervical or supraclavicular adenopathy. ABDOMEN: The abdomen is nondistended. Extremities: No swelling or edema. SKIN: No jaundice. ASSESSMENT/PLAN: (C90.00) Multiple myeloma not having achieved remission (HCC) (primary encounter diagnosis) Assessment: -The patient is a 74-year-old male has a past medical history significant for diabetes and chronic diarrhea that was characterized by one explosive watery stool daily (was diagnosed with pancreatic insufficiency). Was hospitalized 03/2022 when diarrhea significantly worsened and he was diagnosed with and treated for Campylobacter infection. During that evaluation, was found to have two IgG lambda monoclonal antibodies. He did not have hypercalcemia or anemia but had elevated serum creatinine (which may have been related to volume depletion when hospitalized for diarrhea and mental status change). 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 Low to intermediate risk disease (PCs 20%). -Imaging--no lytic lesions on whole body CT; Liver cyst and splenic nodule (6-12 month f/u MRI recommended). -Bone marrow negative for amyoid. -Colonic biopsies negative for amyloid. -Subsequent MRI of spine and pelvis revealed two T2 hyperintense foci in the pelvis, one in the left sacral rebeka and one in the right ischium. -FISH panel revealed (11;14) (q13;q32) (IGH/CCND1) translocation consistent with the presence of a plasma cell neoplasm associated with standard risk disease. -R-ISS stage I (serum beta microglobulin less than 3.5 mg/L and serum albumin greater than 3.5 g/dL; standard risk disease by FISH testing as outlined above and serum LDH less than upper limit of normal). -Serum monoclonal protein from January indicates SD. IgG lambda by immunofixation and 24-hour urine collection. Not quantifiable by electrophoresis. -Reviewed trending serum creatinine. He has had fluctuating levels. He is not hydrating very well. We discussed the importance of this with him. We also discussed the importance of good blood glucose control. Home blood pressures typically 120s to 130s with diastolics in the 70s. Because of recent diagnoses of Alzheimer's and Lewy body dementia, I recommended holding off on Zometa today since I am not sure how reliable he will be with hydration. Will administer next month if creatinine improves. If continues to worsen then nephrology consultation. -Reviewed CBC. Counts allow continued therapy. -ECOG PS 1. Plan: -Continue lenalidomide at current dose. -Follow-up on finalized results of today's serum protein electrophoresis. -CBC, chemistries and serum protein electrophoresis and immunofixation as well as 24-hour urine collection for electrophoresis and immunofixation monthly per protocol. Supportive care: ID: Plan: -Continue acyclovir. Skeletal: -Only lytic lesions observed over those in the pelvic bones on MRI initially. Plan: -Zometa every 3 months--postpone 1 month. Chronic PE. Assessment: -B/L PE on ASA prophylaxis. -Previous evidence of pulmonary hypertension on echocardiogram. -Tolerating apixaban well. -CBC reveals no thrombocytopenia. -Okay to hold for LP if he requires it. Plan: -Continue rivaroxaban--will decrease dose as indicated by GFR. Neuro: -No symptoms of neuropathy. Portions of this documentation were copied and pasted from my previous office visit note dated 01/09/2025 in order to provide a cohesive continuity of the history. The note has been reviewed and edited and updated as necessary. Connie Mccain DO documented in this encounter [facility] 03-03-2025 History of Present illness Narrative UNIVERSAL PROTOCOL / SAFETY CHECKLIST Procedure to be Performed: EMG Sign In: A Moment of CARE was completed. Personnel directly involved with the procedure wore the appropriate PPE (Personal Protective Equipment). Patient/Surrogate Stated/Verified: Patient name, Date of , Relevant allergies, and The intended procedure Time Out Communication: Intended patient and procedure match the source documents. Correct side/site marked and visible. Sign Out: SIGN OUT (optional for EMERGENT procedures): Post-procedure follow-up management communicated and Plan of Care Visit completed when applicable. Luiz Marie MD documented in this encounter [facility] 02-26-2025 History of Present illness Narrative Radiology Service Progress Note PATIENT NAME: Oseas Joseph DATE OF SERVICE: February 26, 2025 TIME: 4:02 PM PATIENT IDENTITY VERIFICATION COMPLETED USING TWO (2) IDENTIFIERS: Name and Date of confirmed by patient verbally. FALL SCREENING: Has the patient had 2 falls in the last year or 1 fall with injury or currently using an Ambulatory Assistive Device (Walker, Cane, Wheelchair, Crutches, etc.)? No PATIENT GENDER DATA: Assigned male at PATIENT RELEVANT IMPLANT DATA REVIEWED: Yes PATIENT PRESENTS WITH AN IMPLANTABLE OR ATTACHED IMPLEMENTATION TECHNICIAN: No RADIOLOGY DEPARTMENT: MR; Exam(s) Completed: Spine: Lumbar spine. Lavender Administered: No PERIPHERAL IV DATA: Not applicable SIGNED BY: RT Crescencio(R) February 26, 2025 4:02 PM documented in this encounter [facility] 02-26-2025 History of Present illness Narrative Images from the original note were not included. Reason for Visit/Chief Complaint Oseas is a 74-year-old male with a history of Alzheimer's disease and Lewy body dementia, presenting with right leg pain and weakness. Patient presents with: Right Knee - Established Patient, Knee Pain Left Knee - Established Patient, Knee Pain History of Present Illness: PAIN EVALUATION 02/26/2025 1024 Pain Level: 7 Pain Location: -- bilat knee, right greater than left Description: Aching;Stabbing/Not Incision Duration Amount of Time: 6 Duration Units: Months Frequency: Continuous Intervention/Comfort measure: Medication;Relaxation tylenol HPI: Patient presents with bilateral knee pain, he states that the right knee is worse than the left. He notes the pain is anterior and aching and stabbing. He denies any known injury states has been having the knee pain about 6 months. He has tried rest and tylenol which helps some. Denies calf pain, numbness, tingling, fever, chills or other constitutional symptoms. No changes in bowel or bladder, right leg weakness. Right Leg Pain and Weakness: - Onset of pain and weakness in the right leg began 4-7 months ago. - Initially, pain was in the left leg but has since shifted to the right leg. - Describes pain as worsening over the first few days and persisting since. - Pain localized to the right leg; denies pain in other areas. - Reports significant difficulty getting out of a chair or into a car. - Pain and weakness are exacerbated by prolonged sitting. - Taking aspirin BID with minimal relief. - Denies numbness or tingling in the legs. - Previous MRI of the back in 2022; received injections with temporary relief lasting 30-40 days. Alzheimer's Disease and Lewy Body Dementia: - Diagnosed with mild Alzheimer's disease and Lewy body dementia. - Currently using hearing aids. Review of Systems: Patient did not have, and does not currently have, any weight loss, malaise, fever, chills, headache, chest pain, chest pressure, palpitations, cough, shortness of breath, orthopnea, paroxsymal nocturnal dyspnea, nausea, vomiting, diarrhea, constipation, melena, hematochezia, urinary difficulties, prolonged bleeding, easily bruising, heat or cold intolerance, new onset joint pain or swelling, new onset extremity weakness or numbness, new onset auditory or visual disturbances, lightheadedness, dizziness, partial loss of consciousness or full loss of consciousness. Current Outpatient Medications on File Prior to Visit Medication Sig donepezil (ARICEPT) 10 mg tablet Take 1 tablet by mouth daily with breakfast. REVLIMID 5 mg capsule TAKE 1 CAPSULE BY MOUTH DAILY FOR 28 DAYS XARELTO 20 mg tablet TAKE 1 TABLET BY MOUTH ONCE DAILY WITH DINNER acyclovir (ZOVIRAX) 400 mg tablet Take 1 tablet by mouth two times a day. acetaminophen (TYLENOL EXTRA STRENGTH) 500 mg tablet Take 1,000 mg by mouth every 8 hours as needed. cyanocobalamin (VITAMIN B-12) 1,000 mcg tab Take 2,000 mcg by mouth once daily. folic acid 800 mcg tablet Take 400 mcg by mouth once daily. glimepiride (AMARYL) 2 mg tablet Take 1 tablet by mouth daily with breakfast. Take 2 mg twice a day. May increase to 4mg BID if your PCP requests so. ondansetron (ZOFRAN) 8 mg tablet Take 1 tablet by mouth every 8 hours as needed for nausea/vomiting. clonazePAM (KLONOPIN) 0.5 mg tablet Take 0.5 mg by mouth once daily. amLODIPine (NORVASC) 5 mg tablet Take 10 mg by mouth once daily. atorvastatin (LIPITOR) 10 mg tablet Take 10 mg by mouth once daily. losartan (COZAAR) 50 mg tablet Take 50 mg by mouth once daily. No current facility-administered medications on file prior to visit. ALLERGIES No Known Allergies Physical Exam: Vitals: There were no vitals taken for this visit. Psych: Pleasant, good affect and mood General Appearance: Well appearing, alert, in no acute distress, well-hydrated, well nourished.. Skin: Skin color, texture, turgor normal, no suspicious rashes or lesions. Peripheral Pulses: Normal. Neurologic: Gait normal. Reflexes normal and symmetric. Sensation grossly intact.. Lymph Nodes: No cervical lymphadenopathy, No supraclavicular lymphadenopathy, No axillary lymphadenopathy., and No inguinal lymphadenopathy.. Respiratory: No recent pulmonary infection, hemoptysis, chronic cough, or shortness of breath at rest Rheumatologic: Joint deformities: right leg weakness Right Knee Exam Range of Motion Extension: normal Flexion: normal Tests Jeronimo: Anterior - negative Posterior - negative Drawer: Anterior - negative Posterior - negative Other Erythema: absent Sensation: normal Pulse: present Swelling: none Comments: Diffuse atrophy/weakness right leg Left Knee Exam Left knee exam is normal. Muscle Strength The patient has normal left knee strength. Tenderness The patient is experiencing no tenderness. Range of Motion Extension: normal Flexion: normal Tests Jeronimo: Anterior - negative Posterior - negative Drawer: Anterior - negative Posterior - negative Other Erythema: absent Sensation: normal Pulse: present Swelling: none Comments: Neg homans bilaterally Imaging: Assessment and Plan: 1. Radiculopathy of lumbar region (M54.16) - Patient exhibits significant weakness and atrophy in the right leg, with symptoms worsening over the past 4-7 months. Previous MRI of the lumbar spine was performed in 2022. - Ordered repeat MRI of the lumbar spine to assess for any changes or nerve compression. - Negative Woodson's reflex on examination, reducing concern for cervical involvement. - Referred to [facility], for further evaluation. - Scheduled a virtual follow-up to review MRI results. Today, in detail, through a thorough evaluation, we discussed possible etiologies of pain and our plans for further diagnostic and therapeutic interventions. We discussed strategies for decreasing pain and improving strength, stability and motion. Patient's questions were answered in detailed. Patient verbalizes understanding and agrees with the treatment plan as discussed. Recording using wunderloop software for draft documentation of the visit was discussed with the patient/authorized sales representative; all questions welcomed and answered. Patient/authorized sales representative agreed to proceed [employer] PowerPAltagraciaHAltagracia documented in this encounter [facility] 02-25-2025 Telephone encounter Note Called and spoke with spouse of Oseas Joseph. Explained study exclusion criteria hit. All questions were answered. Pt was thanked for time and interest and in good spirits when call was discontinued. Therese Sanabria Research Coordinator II [facility] 02-25-2025 Miscellaneous Notes Called and spoke with spouse of Oseas Simpsonsarah. Explained study exclusion criteria hit. All questions were answered. Pt was thanked for time and interest and in good spirits when call was discontinued. Therese Sanabria Research Coordinator II documented in this encounter [facility] 02-25-2025 Instructions Gilbert Ramirez, PHARMACIST CRITICAL CARE.PATTERNMAKER APPRENTICE [employer]OD - 02/25/2025 9:18 AM EDT Increase Donepezil to 10mg once daily- while watching for possible side effects of diarrhea or nausea 2. Continue to exercise regularly and focus on cardiovascular activity 3. I will check on the MRI study- will message the coordinator to ensure they know you are willing to participate. 4. You may also consider participating in our [facility] ([facility]) and Dementia with Lewy Body Consortium (DLBC) studies- we can discuss that further next time we meet Follow up in 6 weeks documented in this encounter [facility] 02-24-2025 History of Present illness Narrative Images from the original note were not included. Oseas Joseph 1950 [address] [facility] [address] February 24, 2025 Recording using wunderloop software for draft documentation of the visit was discussed with the patient/authorized sales representative; all questions welcomed and answered. Patient/authorized sales representative agreed to proceed [facility] VIRTUAL FOLLOW-UP NOTE This visit was conducted using audio + video elements. I have communicated my name and active licensure. The patient's identity and physical location were verified at the time of this visit. Either the patient or their legal sales representative has been informed of the risks and benefits of -- and alternatives to -- treatment through a remote evaluation and consents to proceed with the evaluation remotely. Accompanied by: spouse Louise, daughter Margo (Nicole), son Nico Joseph is a pleasant 74 year old male seen today for a follow up visit. Oseas Joseph is being followed for (G31.84) Mild cognitive impairment (primary encounter diagnosis) (G30.1, F02.80) Late onset Alzheimer disease without behavioral disturbance (HCC) (G31.83, F02.A3) 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) --positive CSF biomarkers for AD and Lewy Body disease (G47.52) REM sleep behavior disorder (R45.4) Irritability (R41.89) Impaired insight (C90.00) Multiple myeloma not having achieved remission (HCC) Patient was last seen on 12/2024, at which time: -- Reviewed CSF results-showing positivity for AD biomarkers, as well as positive alpha-synuclein aggregates Previous plan included: Will start donepezil if OK w/ Dr. Mccain, w/ HR monitoring 2. Consider social worker masters visit to talk about new diagnoses and to become familiar with what her role is and what she can offer. 3. Driving monitoring - want to keep a close eye on this and err on side of caution re: if any other big concerns are seen- will want to do a Driving Evaluation vs stop driving 4. Be active and healthy in all the ways attached 5. Eat healthy - see attached also Follow up in ~6-8 weeks to check in Today, Oseas and his family returns for a routine follow up visit. He has been taking donepezil 5mg/d and seems to be tolerating it for the most part- He did have 1-2 days of diarrhea that he thinks may have been diet related- and he has also had the flu recently as well. He seems to be recovering - was on erythromycin They do check his pulse several times/week and the lowest they've seen is 51 bpm, and he has not had any syncopal symptoms, dizziness, lightheadedness Mood has been in and out - comes and goes per spouse He reports persistent pain in his right leg, described as both a cramp and joint issue, causing him to limp for half of the day. The pain typically improves by the afternoon. He has an upcoming appointment with orthopedics at the [facility]. Oseas reports persistent pain in his right leg, described as both a cramp and joint issue, causing him to limp for half of the day. The pain typically improves by the afternoon. He has an upcoming appointment with orthopedics at the [facility]. He has been using hearing aids for about five weeks and is gradually adjusting to them. He does not drive independently. He has signed up for a research trial involving high-resolution MRI imaging of the hippocampus but has not yet received confirmation of enrollment. FAST Functional Assessment Staging Tool 3. Decreased job function evident to co-workers; difficulty traveling to new locations PAST MEDICAL HISTORY Diagnosis Date Arthritis Chronic diarrhea Malignant melanoma (HCC) Mixed hyperlipidemia Multiple myeloma not having achieved remission (HCC) 10/26/2022 Other hyperlipidemia 04/17/2023 Primary hypertension 04/17/2023 Pulmonary embolism (HCC) Right bundle branch block 04/17/2023 Type 2 diabetes mellitus, without long-term current use of insulin (HCC) 04/17/2023 SOCIAL HISTORY Social History Tobacco Use Smoking status: Never Smokeless tobacco: Never Vaping Use Vaping status: Never Used Substance Use Topics Alcohol use: Not Currently Comment: social Drug use: Never Social History reviewed by Gilbert Ramirez APRN.PATTERNMAKER APPRENTICE WOOD PROMIS-10 02/05/2025 11/14/2024 PROMIS 10 Health, in general Very good Very good Quality of life, in general Good Good Physical health, in general Good Good Mental health, in general Good Good Social activities satisfaction Good Good Performing ADL's Mostly Mostly Social role satisfaction Good Good Pain, on average 8 3 Fatigue, on average Moderate Mild Emotional problems Rarely Rarely PHYSICAL Score 39.8 (Fair) 47.7 (Good) MENTAL Score 45.8 (Good) 45.8 (Good) PHQ-9 11/25/2024 11/14/2024 PHQ-9 All Questions Little interest or pleasure in doing things: 0 0 Feeling down, depressed, or hopeless: 0 0 (0-4) minimal depression (5-9) mild depression (10-14) moderate depression (15-19) moderately severe depression (20-27) severe depression Full History of PHQ-9 Scores No data to display Sleep 12/18/2023 -- Snore Loudly Yes Tired, fatigued or sleepy in daytime Yes Stop breathing or choking/gasping during sleep No High blood pressure Yes Probability of moderate-severe sleep apnea (%) SAPS V2 66 (Recommend sleep study) OBJECTIVE Current Outpatient Medications on File Prior to Visit Medication Sig REVLIMID 5 mg capsule TAKE 1 CAPSULE BY MOUTH DAILY FOR 28 DAYS XARELTO 20 mg tablet TAKE 1 TABLET BY MOUTH ONCE DAILY WITH DINNER donepezil (ARICEPT) 5 mg tablet Take 1 tablet by mouth daily with breakfast. acyclovir (ZOVIRAX) 400 mg tablet Take 1 tablet by mouth two times a day. acetaminophen (TYLENOL EXTRA STRENGTH) 500 mg tablet Take 1,000 mg by mouth every 8 hours as needed. cyanocobalamin (VITAMIN B-12) 1,000 mcg tab Take 2,000 mcg by mouth once daily. folic acid 800 mcg tablet Take 400 mcg by mouth once daily. glimepiride (AMARYL) 2 mg tablet Take 1 tablet by mouth daily with breakfast. Take 2 mg twice a day. May increase to 4mg BID if your PCP requests so. ondansetron (ZOFRAN) 8 mg tablet Take 1 tablet by mouth every 8 hours as needed for nausea/vomiting. clonazePAM (KLONOPIN) 0.5 mg tablet Take 0.5 mg by mouth once daily. amLODIPine (NORVASC) 5 mg tablet Take 10 mg by mouth once daily. atorvastatin (LIPITOR) 10 mg tablet Take 10 mg by mouth once daily. losartan (COZAAR) 50 mg tablet Take 50 mg by mouth once daily. No current facility-administered medications on file prior to visit. Vital Signs: Not performed- virtual visit General Medical Exam: General: Well-nourished appearing, NAD. Awake, alert. HEENT: Normocephalic/atraumatic. Neurological Exam: Cognition: alert and cooperative MoCA: Not assessed today (Previous score: in 11/2024) Orientation: alert Appearance: normal grooming Eye contact: normal Facial expression: appropriate Psychomotor: normal Speech/Language: unremarkable -can name, repeat with no dysarthria Mood: it varies Affect: pleasant PDW:no SI:no Self-injurious behavior:no Emotional state: calm, cooperative Thought Process: logical Thought Content: appropriate Hallucinations: none Judgment: intact Insight: fair Diagnostic Results: MRI Brain from 10/03/24 IMPRESSION: Mild interval increase in size of the small left intracanalicular vestibular schwannoma since 03/29/2024. Otherwise stable appearance of the brain. NPT from 11/01/24 IMPRESSIONS: The results of today's evaluation are highly variable with no clear pattern and they are not consistent with the location of his vestibular schwannoma or a known neurodegenerative etiology. It also is not fully consistent with effects of chemotherapy treatment, though it is possible that there is some contribution from his complex medical history. None the less, this likely presents a departure from longstanding ability and warrants on going follow up. While he has left sided hearing loss and not wearing hearing aids, this also is not sufficient to explain these findings. None the less, in order to maximize perception of spoken information, he is encouraged to wear his hearing aids. Given his performance on a task sensitive to driving ability, he is encouraged to undergo a formal driving evaluation with Occupational Therapy. Follow up neuropsychological evaluation is recommended in 18-24 months or sooner if clinically indicated. These results have not been reviewed with the patient; however, they were invited to contact me to schedule a feedback if they have questions after reviewing the report and/or meeting with their referring provider. It has been a pleasure to participate in this patient's care. Please feel free to contact me if you have any questions regarding this report or my recommendations. This table should not be presented separate from this Neuropsychological Evaluation Report. Superior High Average Average X X S Naming X Reasoning Low Average Simple W S F Lexical fluency Dominant Mildly Low Symbols S/F Moderately Low *W Extremely Low 108/144 Complex F W-Yes bias Semantic fluency Non-dominant Premorbid Estimate Global Cognitive Function Attention Executive Function Processing Speed Learning Recall Recognition Language Function Visuoperceptual Function Motor MEMORY S = Stories; W = Words; F = Figures Values in horton indicates WNL WNL = within normal limits; BE = below expectation CSF Beatriz [employer] Alzheimer's disease biomarker assay from 12/30/24 Latest Ref Rng 12/30/2024 Total-Tau / Abeta42 ratio <=0.280 0.439 (H) Phospho-Tau (181P) / Abeta42 ratio <=0.0230 0.0391 (H) Abeta42 >=564.2 pg/mL 694.7 Total-Tau <=375.4 pg/mL 305.3 Phospho-Tau (181P) <=31.30 pg/mL 27.16 Consistent with underlying AD pathology Claudio SA-Amplify ASyn-- DETECTED Misfolded alpha-synuclein aggregates detected in spinal fluid sample ASSESSMENT: (G31.84) Mild cognitive impairment (primary encounter diagnosis) (G30.1, F02.80) Late onset Alzheimer disease without behavioral disturbance (HCC) (G31.83, F02.A3) 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) (G47.52) REM sleep behavior disorder (R45.4) Irritability (R41.89) Impaired insight (C90.00) Multiple myeloma not having achieved remission (HCC) PLAN: Increase Donepezil to 10mg once daily- while watching for possible side effects of diarrhea or nausea 2. Continue to exercise regularly and focus on cardiovascular activity 3. I will check on the MRI study- will message the coordinator to ensure they know you are willing to participate. 4. You may also consider participating in our [facility] ([facility]) and Dementia with Lewy Body Consortium (DLBC) studies- we can discuss that further next time we meet Follow up in 6 weeks I spent a total of 40 minutes on the date of service which included [id number] patient care and counseling and educating the patient/spouse/son/daughter. Gilbert Ramirez, MSN, [employer]TER-[employer], CNRN CC: 1. Connie Lugo MD, (fax) [phone] documented in this encounter [facility] 02-06-2025 History of Present illness Narrative IRB # [id number], [facility]# [id number] study entitled Phase III Study of Daratumumab/rHuPH20 (NSC- [id number]) + Lenalidomide or Lenalidomide as Post-Autologous Stem Cell Transplant Maintenance Therapy in Patients with Multiple Myeloma (MM) Using Minimal Residual Disease to Direct Therapy Duration (DRAMMATIC Study). Registration Information: Informed Consent Signed 01/03/2023 Registered Step 1 01/06/2023 Informed Consent Signed Step 2 07/22/2023 Randomization Date: 08/18/2023 Addendum 11/16/2023 Treatment Arm: TAC- 1 Lenalidomide Study ID [id number] Consent to optional samples Yes Study Status Active Patient was here for Cycle 20 and saw Bright Thao APRN, PATTERNMAKER APPRENTICE WOOD. All of the patients and his 's questions were answered at this time in regards to resolved thigh, memory issues, and labs. Patient doing much better overall per family and patient, but continued memory issues. The patient got his hearing aides and they need to be refitted because they keep falling out. Treatment Plan: Treatment Previous Cycle Cycle Current Start Date Frequency End date Lenalidomide Cycle 1 Day 1 08/24/2023 Dose Reduced 05/12/2024 5mg Cycle 19 01/09/2025 - 02/05/2025 Cycle 20 02/06/2025 - 03/05/2025 10/19/2023 Daily, Cycle every 28 days Clinical Trial Specific Testing Test Dates Completed Due Date Bone Marrow Biopsy CTD 07/24/2023 Baseline Step 2 [x] 07/18/2024 12 months post Step 2 [x] 07/24/2025 24 months post Step 2 [] 07/24/2026 36 months post Step 2 [] 07/24/2027 48 months post Step 2 [] QOLs PRO-CTCAE 08/17/2023 (Baseline) [x] 08/24/2023 (Cycle 1) [x] 09/21/2023 (Cycle 2) [x] 10/19/2023 (Cycle 3) [x] 11/16/2023 (Cycle 4) [x] 12/14/2023 (Cycle 5) [x] 01/11/2024 (Cycle 6) [x] 02/08/2024 (Cycle 7) [x] 03/07/2024 (Cycle 8) [x] 04/04/2024 (Cycle 9) [x] 05/02/2024 (Cycle 10) [x] 05/29/2024 (Cycle 11) [x] 06/27/2024 (Cycle 12) [x] 07/25/2024 (Cycle 13) and annual PROMIS-29 and Intolerance [x] 08/22/2024 (Cycle 14) [x] 09/18/2024 (Cycle 15) [x] 10/17/2024 (Cycle 16) [x] 11/14/2024 (Cycle 17) [x] 12/12/2024 (Cycle 18) [x] 01/09/2025 (Cycle 19) [x] 02/06/2025 (Cycle 20) [x] Day 1 of every cycle Baseline Weight (08/24/2023 date) 80.7 kg Current Weight 87.6 kg () Creatinine Clearance 59.8 ml/min ECOG per ECOG- 1 02/06/25 09:39 Weight 87.6 kg (193 lb 2 oz) BSA 0 BMI 0 Temp 36.7 C (98 F) Resp 16 Pulse 63 BP 123/76 SpO2 97 % Bone Marrow - Plasma Cell % Free Light Chains M Protein Date Size (mm) Date [place] Lambda * IGG Date Serum Urine Diagnosis 08/24/2022 20% Diagnosis 10/26/2022 11.7 43.5 Diagnosis 10/26/2022 1.12 M protein present Baseline 07/30/2023 Less than 5%* Baseline 08/07/2023 4.7 2.5 Enrollment 07/31/2023 Cycle 1 0.22 0.00 08/24/2023 Cycle 1 4.1* 2.4* 08/24/2023 Cycle 1 0.28 0.00 09/21/2023 Cycle 2 11.7 8.7 09/21/2023 Cycle 2 0.17 0.01 10/19/2023 Cycle 3 15.5 10.5 10/19/2023 Cycle 3 0.16 0.01 11/16/2023 Cycle 4 17.4 21.4 11/16/2023 Cycle 4 0.20 0.00 12/14/2023 Cycle 5 19.4 23.1 12/14/2023 Cycle 5 0.00* 0.00 01/11/2024 Cycle 6 25.8 19.4 01/11/2024 Cycle 6 0.15 0.00 02/08/2024 Cycle 7 24.2 20.4 02/08/2024 Cycle 7 0.00* 0.00 03/07/2024 Cycle 8 22.0 15.3 03/07/2024 Cycle 8 0.23 0.0 04/04/2024 Cycle 9 22.4 17.5 04/04/2024 Cycle 9 0.24 0.00 05/02/2024 Cycle 10 23.2 16.5 05/02/2024 Cycle 10 0.00* 0.00 05/29/2024 Cycle 11 23.7 15.3 05/29/2024 Cycle 11 0.00* 0.00 06/27/2024 Cycle 12 27.7 19.3 06/27/2024 Cycle 12 0.25 0.00 07/25/2024 Cycle 13 37.8 21.5 07/25/2024 Cycle 13 0.19 0.00 08/22/2024 Cycle 14 25.2 15.7 08/22/2024 Cycle 14 0.25 0.00 09/18/2024 Cycle 15 20.5 13.2 09/18/2024 Cycle 15 0.23 0.00 10/17/2024 Cycle 16 22.8 15.2 10/17/2024 Cycle 16 0.33 0.00 11/14/2024 Cycle 17 21.6 15.4 11/14/2024 Cycle 17 0.20 0.00 12/12/2024 Cycle 18 28.0 18.3 12/12/2024 Cycle 18 0.15 0.00 01/09/2025 Cycle 19 24.7 16.7 01/09/2025 Cycle 19 0.00* 0.00 02/06/2025 Cycle 20 23.9 15.1 02/06/2025 Cycle 20 0.00* 0.00 Lowest/Jacque = * Drug Accountability/Education - Completed on 02/06/2025. Patient given Cycle 20 diary. Patient did return cycle 19. Use of the study medication diary and dosing instructions were reviewed with the patient. Patient verbalizes understanding of dosing of Revlimid: Capsules should be taken whole, with water, once daily (patient takes at HS). If a dose is missed, and it has been less than 12 hours since the preceding dose, the patient should take lenalidomide as soon as the patient remembers. If it has been more than 12 hours, the patient should skip the missed dose. Patient took pills for the cycle - determining 100% compliance Patient receives drug from a private pharmacy. Lenalidomide Education and Counseling completed. Patient counseled on potential exposure to lenalidomide by Bright, engage in abstinence or use a condom when engaging in sexual contact with WOCBP, notify study doctor if female partner becomes , never share drug with anyone else, not to donate blood, semen, or sperm while taking drug and for 28 days after. Concomitant medications reviewed per protocol: Yes Patient reported changes to medication list: No changes since last visit. Current medications: Current use of anticoagulants: YES (see medications below if applicable) Anticoagulants: Eliquis 5 mg Current use of herbal preparations or medications: No Prophylactic shingles medication: Acyclovir 400 mg Current Outpatient Medications Medication Sig Start/Stop Use acyclovir (ZOVIRAX) 400 mg tablet Take 1 tablet by mouth twice daily. 05/01/2023 Prophylactic shingles ondansetron (ZOFRAN) 8 mg tablet Take 1 tablet by mouth every 8 hours as needed for nausea/vomiting. 10/26/2022 PRN Nausea clonazePAM (KLONOPIN) 0.5 mg tablet Take 0.5 mg by mouth once daily. 07/29/2023 Anxiety glimepiride (AMARYL) 4 mg tablet Take 2 capsules by mouth in AM & 1 capsule in PM. >5 years Type 2 amLODIPine (NORVASC) 5 mg tablet Take 5 mg by mouth once daily. 02/10/2021 Hypertension atorvastatin (LIPITOR) 10 mg tablet Take 10 mg by mouth once daily. 02/10/2021 Cholesterol losartan (COZAAR) 50 mg tablet Take 50 mg by mouth once daily. 02/10/2021 Hypertension Loperamide (Imodium Oral) Take 2 tablet by mouth as needed >5 years Diarrhea Sildenafil (Viagra) 50 mg tablet Take 50 mg by mouth as needed. >10 years ED Eliquis 5 mg tablet Take 1 tablet by mouth twice daily 03/23/2023 Preventative -blood thinner Melatonin 5 mg Take 1 tablet at bedtime 03/23/2023 Insomnia Revlimid 10 mg Take 1 capsule daily in the morning 08/24/2023 Stopped: 05/12/2024 MM treatment Revlimid 5 mg Take 1 capsule daily in the morning 05/12/2024 MM treatment Linzess 72 mcg Take 1 capsule for constipation symptoms once a day as needed for constipation 12/31/2023 Constipation Azithromycin (ZITHROMAX) 500 mg tablet Take 1 tablet by mouth daily 02/02/2024 Completed 02/05/2024 Antibiotic Donepezil (ARICEPT) 5mg Take 1 tablet by mouth daily 01/23/2025 Alzheimer No current facility-administered medications for this visit. Medical History: PAST MEDICAL HISTORY Diagnosis Date Arthritis Treated with medication Chronic diarrhea Resolved and now constipation Diabetes mellitus (HCC) Treated with medication Essential hypertension Treated with medication Mixed hyperlipidemia Treated with medication Alzheimer 01/30/2025 PAST MEDICAL HISTORY Diagnosis Date Arthritis Treated with medication Chronic diarrhea Resolved Malignant melanoma (HCC) On back removed - precancerous and 06/2022 non cancerous Mixed hyperlipidemia Treated with medication Multiple myeloma not having achieved remission (HCC) Treated with medication Primary hypertension Treated with medication Pulmonary embolism (HCC) Treated with medication Right bundle branch block Treated with medication Type 2 diabetes mellitus, without long-term current use of insulin (HCC) Treated with medication Surgical History: PAST SURGICAL HISTORY Procedure Laterality Date REPAIR INCISIONAL HERNIA,REDUCIBLE Resolved 8th grade SKIN BX, 1 LESION 06/2022 non cancerous Baseline Toxicities per CTCAE v. 5: All predate therapy, are chronic conditions and will not be actively followed unless they worsen during the clinical trial. Hyperglycemia; Grade 1: Start Date: >5 years PRIOR TO STUDY Drugs to Treat: Glimepiride Action Required: None Outcome: Ongoing. (Chronic) Diarrhea; Grade 1: INTERMITTENT Start Date: >5 years PRIOR TO STUDY Drugs to Treat: Imodium Action Required: None Outcome: Ongoing. Anemia; Grade 1: Start Date: Intermittent PRIOR TO STUDY 07/24/2023 Drugs to Treat: None. Action Required: None Outcome: See Below. Aspartate aminotransferase decreased; Grade 1: Start Date: Intermittent PRIOR TO STUDY Drugs to Treat: None. Action Required: None Outcome: Ongoing Alanine aminotransferase decreased; Grade 1: Start Date: Intermittent PRIOR TO STUDY Drugs to Treat: None. Action Required: None Outcome: Ongoing Insomnia; Grade 1: Start Date: Intermittent PRIOR TO STUDY 07/21/2023 Drugs to Treat: None. Action Required: None Outcome: Ongoing. Lymphocyte Count Decreased; Grade 1: Start Date: Intermittent PRIOR TO STUDY- Possibly related to Revlimid and Drugs to Treat: None. Action Required: None Outcome: Toxicities per CTCAE v. 5: White Blood Cell Count Decreased; Grade 1: Start Date: 10/17/2024. Related to Lenalidomide and cold. Drugs to Treat: None. Action Required: None Outcome: ONGOING Memory Impairment; Alzheimer; Grade 1: Start Date: 02/08/2024. Unrelated to Lenalidomide. Drugs to Treat: None. Action Required: None Outcome: Ongoing Creatinine Increased: Grade 1: Start Date: 11/14/2024. Possibly related to Lenalidomide. Drugs to Treat: None. Action Required: None Outcome: Ongoing Weight Loss: Grade 1: Start Date: 08/2023. Unrelated to study drug - due to transplant. Drugs to Treat: None. Action Required: None Outcome: Ongoing Lymphocyte Count Decreased: Grade 1. Start Date: 12/12/2024 Increased to baseline Grade 1 01/09/2025. Probably Related to Lenalidomide. Drugs to Treat: None. Action Required: None. Outcome: Ongoing. Patient turned in a 24 hour urine: Yes Chart sent the overseeing physician to review CTCAE toxicities. Patient knows to RTC 03/06/2025 for C21. Patient knows to call in the interim for any questions or concerns. Patient has contact information for Uma Gill Research Nurse and Dr. Mccain, along with the office number. All other abnormal lab values are deemed not clinically significant and therefor will not be graded. Treating provider has reviewed and agrees with Adverse Events above. Chart being routed to Connie Mccain D.O.. Patient meets all Criteria for Study Participation: Yes REID Bynum, RN Clinical Research Nurse [phone] documented in this encounter [facility] 02-06-2025 History of Present illness Narrative Chief Complaint Patient presents with: Chemotherapy Follow-up HPI: Oseas Joseph is a 74 year old male who presents here today for follow up MM. Per Dr. Mccain's previous note: H/o type 2 diabetes, high cholesterol, hypertension and right bundle branch block. Patient originally presented to the emergency room at [facility] on 04/19/2022 with new onset of confusion that day which had been worsening. Laboratory work-up significant for hypokalemia. CT of the brain was unremarkable. He was admitted. During hospitalization it was noted that he had been having diarrhea for 6 to 8 weeks. Stool studies were positive for Campylobacter, blood and lactoferrin. C. difficile was negative. CT of the abdomen pelvis on 04/21/2022 noted abnormal pericholecystic edema without gallstones. Renal cysts and colonic diverticulosis were noted. He was found to have elevation of sed rate to 39, CRP 134. His albumin was 2.3. IgA low at 37. He was discharged on azithromycin, potassium and magnesium supplement. He was seen in the outpatient setting for follow-up visit on 07/11/2022. He continued to have one episode of explosive diarrhea daily. This had been going on for about 8 months. CBC on 07/11 showed a white count of 6400. Differential was normal. Hemoglobin 14.9 g/dL. Platelet count 275,000. Chemistries significant for creatinine of 1.29 g/dL. Previously 1.13 g/dL on 04/27/2022. Calcium was 9.3 mg/dL. Total bilirubin, AST, ALT and alkaline phosphatase were normal. LDH was 181. C-reactive protein was less than 2.09. Total protein was 8.8 g/dL. Total IgG was 2462 mg/dL. IgA decreased to 28 mg/dL. IgM normal at 32 mg/dL. On protein electrophoresis, patient was found to have 2M spikes both IgG lambda by immunofixation. For spike was quantitated at 1.2 g/dL and the second was quantitated at 0.6 g/dL. Cytoplasmic and perinuclear ANCA both negative. Atypical p-ANCA negative. Patient described diarrhea as loose, eran stools sometimes explosive typically one bowel movement per day however. He had not observed any blood. Had a colonoscopy December [address] Arteaga. His appetite was normal. He had not lost weight. Denied reflux and nausea. He did get abdominal bloating associated with the diarrhea. He denied musculoskeletal pain. He denied symptoms of sensory neuropathy. He sees an team supervisor once a year for dilated exam. He has not been told he has retinopathy. Recent removal of early melanoma back. Blue nevus right ankle--required WLE--scheduled. PMR--about 15 years ago. Patient underwent colonoscopy on 09/21/2022. Preparation of the colon was fair. -One 6 mm polyp at the ileocecal valve, removed with a hot snare. Resected and retrieved. -One 5 mm polyp in the ascending colon, removed with a hot snare. Resected and retrieved. -Congested mucosa in the descending colon, at the splenic flexure, in the ascending colon and in the cecum. Biopsied. -Diverticulosis in the recto-sigmoid colon, in the sigmoid colon and in the descending colon. -Stool in the rectum, in the sigmoid colon, in the descending colon and at the hepatic flexure. Fluid aspiration performed. -The examined portion of the ileum was normal. Biopsied. Pathology: A. Ileocecal valve polyp, biopsy: -Consistent with fibrolipomatous polyp. -See comment. B. Small bowel, biopsy: -No pathologic change. C. Cecum, biopsy: -Mild melanosis coli. D. Colon, random biopsy: -Mild melanosis coli. E. Ascending colon polyp, biopsy: -Fragments of tubular adenoma. B, C, D & E - No congophilic material identified. Congo red stain with matched control is negative. ADDENDUM C & D. No congophilic material is noted in these biopsies on light and polarized microscopy. Congo Red stain with matched control was used in the evaluation of this case. He was diagnosed with pancreatic insufficiency and was to start pancreatic enzyme replacement. Patient had a venous duplex ultrasound on 12/16/2022 for right leg pain. That study demonstrated no evidence of DVT in the right leg. He developed chest pain and increasing shortness of breath. Went to the ED on 01/16/2023. PE protocol chest CT demonstrated multiple bilateral pulmonary emboli involving the distal portion of both the right and left main pulmonary arteries as well as branches of the upper and lower lobe pulmonary arteries, more prominent on the right side. Platelet count was 67,000. Patient was admitted and placed on unfractionated heparin with bolus. The next morning platelet count was 62,000. He was rotated to apixaban and discharged. Echocardiogram performed 01/17/2023 demonstrated normal LV size. There was moderate concentric LVH. Left ventricular systolic function was normal with an estimated ejection fraction at 60%. There was stage I diastolic dysfunction. The pulmonary artery systolic pressure was 58 mmHg. The global longitudinal strain was -11.5% (abnormal). The global longitudinal strain was moderately abnormal. (Previous echocardiogram 04/20/2022 demonstrated right ventricular systolic pressure estimated at 22 mmHg. Diastolic function was indeterminate. Right ventricular strain was not determined). His chest pain has improved. He is still short of breath with heavier exertion and sometimes walking from room to room he finds himself breathing heavier. He has been taking apixaban 10 mg twice daily. No bleeding issues. Previous therapy: 1) RVd. Cycle #1 began 11/09/2022. 2) Zometa. 3) ASCT. Transplant Summary: BMT Information ASCR infused on 06/02/2023 Planned Proposed Protocols: IP BMT AUTO MELPHALAN 200 Planned Preparative Regimen Drug: Melphalan Planned Mobilization Agent: G-CSF, Plerixafor Planned Stem Cell Source: Peripheral blood stem cells BMT Transplant Details # of cells: 6.16 Saw neurology. 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 Scheduled for EMG 01/16. Seen in the ED on 01/27/2024 for an episode of confusion that was secondary to hypoglycemia. Evidently had influenza diagnosed prior to that. Was then admitted for neutropenic fever on 01/31/2024. ANC was 600 at time of admission. Influenza A positive. Stool positive for Campylobacter. Was treated with high-dose Tamiflu secondary to underlying immunocompromise. Discharged on azithromycin 500 mg daily for 14 days. B/L hip injections 10/18. Helped significantly for several weeks. Wearing off and starting to have more pain both hips. Typically pain improves once up an moving. Denies pain otherwise. No new concerns today. Pt. here today with spouse. Appetite:Excellent. Wt. up 4# Energy level:Good. Denies fevers. Mouth:denies sores Resp:denies cough or sob Cardiac:denies chest pain/palpitations GI:denies abd pain, n/v, moving bowels regulary :deneis dysuria/hematuria Extrem:denies new pain, chronic RLE pain Neuro:denies symptoms of neuropathy Skin:denies rashes Heme:denies bleeding, on xarelto The ROS is otherwise negative. Past medical history, appointments, medications, allergies reviewed. No changes. EXAM: BP 123/76 Pulse 63 Temp 36.7 C (98 F) (Temporal) Wt 87.6 kg (193 lb 2 oz) SpO2 97% BMI 25.34 kg/m APPEARANCE Well appearing, alert, in no acute distress, well-hydrated, well nourished. HEART RRR with normal S1 and S2, no murmurs LUNG clear to auscultation LYMPH NODES No cervical lymphadenopathy, No supraclavicular lymphadenopathy, and No axillary lymphadenopathy. ABDOMEN bowel sounds normoactive, soft, non-tender EXTREMITIES No edema NEURO Awake, alert and oriented x 3, Normal gait, and No involuntary motions. SKIN Skin color, texture, turgor normal, no suspicious rashes or lesions LABS: Latest Ref Rng 01/09/2025 02/06/2025 WBC 3.70 - 11.00 k/uL 3.28 (L) 3.61 (L) RBC 4.20 - 6.00 m/uL 3.99 (L) 4.31 Hemoglobin 13.0 - 17.0 g/dL 12.7 (L) 13.6 Hematocrit 39.0 - 51.0 % 38.0 (L) 40.8 MCV 80.0 - 100.0 fL 95.2 94.7 MCH 26.0 - 34.0 pg 31.8 31.6 MCHC 30.5 - 36.0 g/dL 33.4 33.3 RDW-CV 11.5 - 15.0 % 14.0 13.8 Platelet Count 150 - 400 k/uL 154 157 MPV 9.0 - 12.7 fL 9.1 9.4 Neut% % 51.9 54.2 Abs Neut (ANC) 1.45 - 7.50 k/uL 1.70 1.96 Lymph% % 27.4 25.8 Abs Lymph 1.00 - 4.00 k/uL 0.90 (L) 0.93 (L) Morton% % 11.9 12.7 Abs Morton <0.87 k/uL 0.39 0.46 Eosin% % 7.0 5.3 Abs Eosin <0.46 k/uL 0.23 0.19 Baso% % 1.5 1.4 Abs Baso <0.11 k/uL 0.05 0.05 Immature Gran % % 0.3 0.6 IMMATURE GRANS (ABS) <0.10 k/uL <0.03 <0.03 NRBC /100 WBC 0.0 0.0 Absolute nRBC <0.01 k/uL <0.01 <0.01 DTYPE Auto Auto Latest Ref Rng 01/09/2025 02/06/2025 Protein, Total 6.3 - 8.0 g/dL 6.4 6.9 Albumin 3.9 - 4.9 g/dL 4.1 4.4 Calcium 8.5 - 10.2 mg/dL 9.0 9.5 Bilirubin, Total 0.2 - 1.3 mg/dL 0.7 0.6 Alkaline Phosphatase 38 - 113 U/L 50 52 AST 14 - 40 U/L 13 (L) 19 ALT 10 - 54 U/L 15 21 Glucose 74 - 99 mg/dL 177 (H) 224 (H) BUN 9 - 24 mg/dL 17 20 Creatinine 0.73 - 1.22 mg/dL 1.27 (H) 1.27 (H) Sodium 136 - 144 mmol/L 142 139 Potassium 3.7 - 5.1 mmol/L 4.1 4.3 Chloride 98 - 107 mmol/L 110 (H) 106 CO2 22 - 30 mmol/L 24 23 Anion Gap 8 - 15 mmol/L 8 10 eGFR >=60 mL/min/1.73m 60 60 MM labs: Pending ASSESSMENT/PLAN: 1. Multiple myeloma not having achieved remission (HCC) - ICD9: 203.00, ICD10: C90.00 (primary diagnosis) 2. Examination of participant in clinical trial - ICD9: V70.7, ICD10: Z00.[address] Mccain's previous note: Assessment: -The patient is a 73-year-old male has a past medical history significant for diabetes and chronic diarrhea that was characterized by one explosive watery stool daily (was diagnosed with pancreatic insufficiency). Was hospitalized 03/2022 when diarrhea significantly worsened and he was diagnosed with and treated for Campylobacter infection. During that evaluation, was found to have two IgG lambda monoclonal antibodies. He did not have hypercalcemia or anemia but had elevated serum creatinine (which may have been related to volume depletion when hospitalized for diarrhea and mental status change). 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 Low to intermediate risk disease (PCs 20%). -Imaging--no lytic lesions on whole body CT; Liver cyst and splenic nodule (6-12 month f/u MRI recommended). -Bone marrow negative for amyoid. -Colonic biopsies negative for amyloid. -Subsequent MRI of spine and pelvis revealed two T2 hyperintense foci in the pelvis, one in the left sacral rebeka and one in the right ischium. -FISH panel revealed (11;14) (q13;q32) (IGH/CCND1) translocation consistent with the presence of a plasma cell neoplasm associated with standard risk disease. -R-ISS stage I (serum beta microglobulin less than 3.5 mg/L and serum albumin greater than 3.5 g/dL; standard risk disease by FISH testing as outlined above and serum LDH less than upper limit of normal). -Serum monoclonal protein from November indicates SD. -Reviewed CBC. Counts allow continued therapy. -ECOG PS 1. Plan: -Continue lenalidomide at current dose. -Follow-up on finalized results of today's serum protein electrophoresis. -CBC, chemistries and serum protein electrophoresis and immunofixation as well as 24-hour urine collection for electrophoresis and immunofixation monthly per protocol. Supportive care: ID: Plan: -Continue acyclovir. Skeletal: -Only lytic lesions observed over those in the pelvic bones on MRI initially. Plan: -Zometa every 3 months--next due 03/06/2025. Chronic PE. Assessment: -B/L PE on ASA prophylaxis. -Previous evidence of pulmonary hypertension on echocardiogram. -Tolerating apixaban well. -CBC reveals no thrombocytopenia. -Okay to hold for LP if he requires it. Plan: -Continue rivaroxaban. Neuro: -No symptoms of neuropathy. - Overall tolerating treatment well. - Reviewed CBC/CMP with pt. and spouse. - MM labs pending. - No bleeding issues on xarelto-Continue. - Continue current medications. - Continue zometa every 3 months. - Continue current dose of revlimid. - Follow up as scheduled. - Pt. aware to call office with any questions/concerns. The patient indicates understanding of these issues and agrees with the plan. All documentation from previous visit of 01/09/25-Dr. Mccain was copied and pasted, documentation has been reviewed and edited as necessary for today's visit. Bright Thao APRN.PATTERNMAKER APPRENTICE WOOD documented in this encounter [facility] 02-04-2025 Telephone encounter Note [employer] auth #[id number]. Please send electronically. Betsy Henriquez LPN [facility] 02-04-2025 Miscellaneous Notes [employer] auth #[id number]. Please send electronically. Betsy Henriquez LPN Unable to obtain [employer] auth until around 02/09/2025. Betsy Henriquez LPN documented in this encounter [facility] 02-03-2025 Telephone encounter Note This was already sent in today. Patient's is aware. Betsy Henriquez LPN [facility] 02-03-2025 Miscellaneous Notes This was already sent in today. Patient's is aware. Betsy Henriquez LPN documented in this encounter [facility] 02-03-2025 Telephone encounter Note Patient's is aware. Betsy Henriquez LPN [facility] 02-03-2025 Miscellaneous Notes Patient's is aware. Betsy Henriquez LPN Thank you. I corrected my note. Connie Mccain DO Please leave this in the box until Dr. Mccain returns. Xarelto was discontinued at the OV 01/09/2025. The OV note says continue apixaban- patient hasn't been on that since 2023. Will need to clarify. Betsy Henriquez LPN documented in this encounter [facility] 02-03-2025 Telephone encounter Note Thank you. I corrected my note. Connie Mccain DO [facility] 02-03-2025 Telephone encounter Note Being taken care of in another phone encounter dated 01/29/25. Needs clarification. Flor Canales LPN [facility] 02-03-2025 Miscellaneous Notes Being taken care of in another phone encounter dated 01/29/25. Needs clarification. Flor Canales LPN Pt calling in says he's been out for 5 days. Donto, needs refill. Sharon Abad documented in this encounter [facility] 02-03-2025 Telephone encounter Note Pt calling in says he's been out for 5 days. Kristalrelto, needs refill. Sharon Abad [facility] 02-03-2025 Telephone encounter Note Unable to obtain [employer] auth until around 02/09/2025. Betsy Henriquez LPN [facility] 01-31-2025 Telephone encounter Note Left voicemail regarding scheduling follow up for both Bradley Ramirez and Kemi Kennedy at 6-8 weeks and 3 months respectively. Deacon number was included in message for call back. [facility] 01-31-2025 Miscellaneous Notes Left voicemail regarding scheduling follow up for both Bradley Ramirez and Kemi Kennedy at 6-8 weeks and 3 months respectively. Deacon number was included in message for call back. documented in this encounter [facility] 01-30-2025 Telephone encounter Note Called and spoke with Oseas Joseph's spouse. Requested callback around 14:45P Therese Sanabria Research Coordinator II [facility] 01-30-2025 Miscellaneous Notes Called and spoke with Oseas Joseph's spouse. Requested callback around 14:45P Therese Sanabria Research Coordinator II documented in this encounter [facility] 01-30-2025 Kemi Anaya LISW - 01/30/2025 12:56 PM EDT Hi Nico and family, It was great meeting you! I included 2 attachments and a few websites for organizations that I think you'll find useful. I asked scheduling to reach out to schedule your follow-up visits with me and Bradley. If for some reason you don't hear from them within a week our department specific scheduling team can be reached at [phone]. When there is a diagnosis of dementia, no matter the type, we encourage families to educate themselves, learn communication tips, and learn ways to adjust expectations over time. A few helpful resources: The Alzheimer's Association (web site: alz.org) Help Line available 24 hours a day, 7 days per week: 140.673.3794. Call Help Line to learn of local options for support groups and to register. [facility] [place] (web site: Caregiver.org) [employer]- a secure online solution for quality information, support, and resources for family caregivers. Contact: Lewy Body Dementia Association (web site: lbda.org youtube.com/LBTAtv) Support for individuals diagnosed and their families through education, research and resources. 502.339.8595 (Caregiver Link Support Line) Please feel free to call or schedule a follow up visit with any questions or concerns. ISAC Mcgrath [facility] Office: [phone] [phone] documented in this encounter [facility] 01-30-2025 History of Present illness Narrative SOCIAL WORK NOTE I have communicated my name and active licensure. The patient's identity and physical location were verified at the time of this visit. Patient consented to the video assessment. Oseas Joseph 1950 [address] [facility] [address] INFORMATION/REFERRAL: Referral Source: Gilbert Ramirez APRN.PATTERNMAKER APPRENTICE WOOD Pt information: Oseas Joseph is a 74 year old year old male referred to [facility] social work for the following reason(s): community services/resources Pt present for appointment: Yes Additional Participants: spouse, Louise and son, Nico Functional Status: With overall regard to patient functioning, Difficulty with IADL's, independant with ADL's. Living Situation & Setting: pt resides in own single story home that is ADA compliant with spouse. Safety Assessment: Is the patient driving? YES Driving Concerns: driving eval addressed with provider. Is the patient taking medications as prescribed? YES, managed by spouse Is the patient left alone? NO Aware of 911: Yes Medical Alert System: No Are there concerns about safety in the home? NO Has the patient gotten lost in familiar places or wandered? NO Has the patient experienced unsteadiness or sustained falls? NO Falls: negative EMPLOYMENT/FINANCIAL/INSURANCE: DPOA health: Yes DPOA finance: Yes Guardian: No Is patient a ?: No LTC Policy: No Agencies involved: PROBLEMS/NEEDS IDENTIFIED: Continue to assess/collaborate Education Information Long-term care plan DISCUSSION: Assessment visit with patient and family to address new diagnosis. Pt is joined by spouse and son (1 of 5 children) who is an RN. Discussed pt's medical history including cancer and type 2 diabetes which contribute to his overall level of stress and impact of recent AD and LBD diagnoses. Son reports parents have an active social life, supportive family, safe ADA compliant, single-story home and secure finances. Primary focus at this time is understanding diagnosis and ongoing support from BAG TESTER. Family has questions regarding diagnosis, what's next and which condition should be their primary focus. Discussed diagnosis and prognosis and answered questions. BAG TESTER to provide literature regarding diagnosis and next steps. Plan to follow-up in 3 months. INTERVENTION/PLAN: -Discussed BAG TESTER supportive role/availability as member of [facility] care team. -Supportive counseling offered to address caregiver stress, adjustment to caregiver role, caregiver guilt. Discussed the process of identifying a new normal since dementia diagnosis. -Reviewed supportive services offered through The Alzheimer's Association, [facility] and Alzheimers.gov. Discussed benefits of caregiver support groups. Provided information on local support groups currently offered virtually. Education provided on the importance of self-care and respite. -Engaged in education for new diagnosis and emotional support for navigating next steps. Educational resources provided via . IMPRESSION: Pleasant 74 year old year old patient. Pt and family appear able and motivated to follow up on recommendations as discussed. Diagnosis of Mild Cognitive Impairment, Late Onset Alzheimer's Disease and Mild Lewy Body Dementia consistent with medical provider evaluation. BAG TESTER will remain available to address any questions/concerns. Contact information was provided. I spent a total of 40 minutes with the patient. LEONOR Mcgrath[facility] documented in this encounter [facility] 01-30-2025 Telephone encounter Note Please leave this in the box until Dr. Mccain returns. Xarelto was discontinued at the OV 01/09/2025. The OV note says continue apixaban- patient hasn't been on that since 2023. Will need to clarify. Betsy Henriquez LPN [facility] 01-21-2025 Telephone encounter Note Left message regarding scheduling consultation with [facility] Deacon gusman number included in voicemail. [facility] 01-21-2025 Miscellaneous Notes Left message regarding scheduling consultation with [facility] Deacon gusman number included in voicemail. documented in this encounter [facility] 01-21-2025 Instructions Gilbert Ramirez APRN.PATTERNMAKER APPRENTICE WOOD - 01/21/2025 9:51 AM EDT Will start donepezil if OK w/ Dr. Mccain, w/ HR monitoring 2. Consider social worker masters visit to talk about new diagnoses and to become familiar with what her role is and what she can offer. 3. Driving monitoring - want to keep a close eye on this and err on side of caution re: if any other big concerns are seen- will want to do a Driving Evaluation vs stop driving 4. Be active and healthy in all the ways attached 5. Eat healthy - see attached also Follow up in ~6-8 weeks to check in Ways to keep your brain healthy: -Stay social. Staying social and connected is extremely important for brain health. Having a rich social network has been shown to provide sources of support as well as reduce stress, combat depression, and enhance intellectual stimulation. Some studies have shown that those with significant social interaction have experienced a slower rate of memory decline. -Stay active. Regular exercise has been shown to be helpful for the brain as well as the body! There is no specific activity in particular (ex. walking, swimming, elliptical machine, cycling, Artis Chi, etc.). We recommend maintaining your target heart rate for about 30 minutes with aerobic exercise, three or more days per week. Even regular walking is good exercise! Working out with other people may help you stay on track and allow you to maintain being social! -Eat a healthy diet. Poor nutrition may contribute to problems with thinking. Make sure you get a balanced diet with fruits and vegetables, not too much red meat, and some fish (Mediterranean diet has proven to be very effective). Eating meals with others is a great social activity. -Keep your brain active. Brain activity is very important and may help your nerve cell connect with each other better. It also makes for a healthier, happier lifestyle. Some things that can keep your brain active include: Reading Playing cards Brain games or apps such as Lumosity Puzzles, word jumble games Hobbies Listening to music, going to concerts (if able) Going to art museums and galleries -Get good sleep. Sleep is important in forming new memories. We recommend avoiding medicines for sleep due to side effects. If you snore excessively, if your body jerks at night, or if you have what appears to be bad dreams frequently, getting a sleep evaluation may be useful. Some of these problems of sleep can be treated. -Keeping a daily calendar in one place may be helpful, especially having a standard schedule that does not change too much. -Learning something new. Learning something new can help create new neural pathways in your brain. Some examples can be learning a new language, taking up painting, gardening, knitting, etc. MIND Diet guidelines: - Eat 1/2 cup berries, especially blueberries and strawberries, at least 2x per week. - Eat 1 handful (1/4 cup) nuts at least 5x per week. Include walnuts. - Eat 100% whole grains 3x per day (brown rice, wild rice, black rice, quinoa, barley, bulgur, farro, rolled oats, steel cut oats, amaranth, spelt, millet, wheat berries). - Eat 1-2 cups of leafy greens at least 6x per week (spinach, arugula, kale, mustard greens, lashell greens, dandelion greens, willian lettuce). - Eat at least 1 other vegetable (other than dark leafy greens) every day. - Eat 1/2 cup beans or lentils at least 3x per week. - Eat fish at least once per week. Choose low mercury fish: salmon, sardines, anchovies, everett, halibut, scallops. Avoid fried fish and fish high in mercury (swordfish, [place] sea calvillo, orange roughy, ahi tuna, albacore (white) tuna). Choose light/skipjack tuna instead of white tuna, and limit to 2 servings/week because it has some mercury. - Eat chicken at least 2x per week. - Extra virgin olive oil is the primary oil used at home for cooking and on salads. - Limit margarine and butter to less than 1 Tbsp per day. - Limit red meat and processed meats to less than 4x per week. Red meat: beef, pork, suazo, venison, veal, bison. Processed meats: marks, hotdogs, salami, sausage, pepperoni, pastrami, cold cuts, ham - Limit sweets, candy, and pastries to less than 5x per week. - Limit cheese to 1 serving per week or less. 1 serving = 1 ounce. - Limit alcohol to 1 drink per day for women and 2 drinks per day for men. - Avoid fried foods and fast foods. documented in this encounter [facility] 01-20-2025 History of Present illness Narrative Images from the original note were not included. Oseas Joseph 1950 [address] [facility] [address] January 20, 2025 [facility] VIRTUAL FOLLOW-UP NOTE This visit was conducted using audio + video elements. I have communicated my name and active licensure. The patient's identity and physical location were verified at the time of this visit. Either the patient or their legal sales representative has been informed of the risks and benefits of -- and alternatives to -- treatment through a remote evaluation and consents to proceed with the evaluation remotely. Accompanied by: spouse, son, and daughter, brother, and other family members SUBJECTIVE Oseas Joseph is a pleasant 74 year old male seen today for a follow up visit. Oseas Joseph is being followed for (R41.3) Memory loss (primary encounter diagnosis) MCI (G47.52) REM sleep behavior disorder (R45.4) Irritability (R41.89) Impaired insight Patient was last seen on 12/18/24, at which time: -- we discussed holding off of CSF analysis vs pursuing this for more specific possible underlying diagnosis Patient and family opted for LP Previous plan included: LP for CSF analysis for neurodegenerative biomarkers Today, Oseas and his family returns for a routine follow up visit. In the interim, CSF obtained on 12/30/24 demonstrates no clear evidence for an uinderlying inflammatory or autoimmune process, with nonspecific alterations in [place] panel, mildly elevated protein likely due to RBCs in sample Beatriz AD Biomarker panel shows positive ratio values, both t-tau/AB42 and p-tau/AB42 ratios above cutoffs- which is consistent with underlying Alzheimer's disease changes. Amprion SA-Amplify Asyn testing for misfolded alpha-synuclein aggregates resulted DETECTED- indicating the presence of Lewy Body pathology as well. At this time patient meets criteria for MCI vs mild dementia with underlying mixed AD/DLB pathology FAST Functional Assessment Staging Tool 3. Decreased job function evident to co-workers; difficulty traveling to new locations PAST MEDICAL HISTORY Diagnosis Date Arthritis Chronic diarrhea Malignant melanoma (HCC) Mixed hyperlipidemia Multiple myeloma not having achieved remission (HCC) 10/26/2022 Other hyperlipidemia 04/17/2023 Primary hypertension 04/17/2023 Pulmonary embolism (HCC) Right bundle branch block 04/17/2023 Type 2 diabetes mellitus, without long-term current use of insulin (HCC) 04/17/2023 SOCIAL HISTORY Social History Tobacco Use Smoking status: Never Smokeless tobacco: Never Vaping Use Vaping status: Never Used Substance Use Topics Alcohol use: Not Currently Comment: social Drug use: Never Social History reviewed by Gilbert Ramirez, PHARMACIST CRITICAL CARE.PATTERNMAKER APPRENTICE WOOD PROMIS-10 11/14/2024 06/26/2024 PROMIS 10 Health, in general Very good Good Quality of life, in general Good Good Physical health, in general Good Good Mental health, in general Good Fair Social activities satisfaction Good Fair Performing ADL's Mostly Mostly Social role satisfaction Good Fair Pain, on average 3 7 Fatigue, on average Mild Moderate Emotional problems Rarely Sometimes PHYSICAL Score 47.7 (Good) 39.8 (Fair) MENTAL Score 45.8 (Good) 38.8 (Fair) PHQ-9 11/25/2024 11/14/2024 PHQ-9 All Questions Little interest or pleasure in doing things: 0 0 Feeling down, depressed, or hopeless: 0 0 (0-4) minimal depression (5-9) mild depression (10-14) moderate depression (15-19) moderately severe depression (20-27) severe depression Full History of PHQ-9 Scores No data to display Sleep 12/18/2023 -- Snore Loudly Yes Tired, fatigued or sleepy in daytime Yes Stop breathing or choking/gasping during sleep No High blood pressure Yes Probability of moderate-severe sleep apnea (%) SAPS V2 66 (Recommend sleep study) OBJECTIVE Current Outpatient Medications on File Prior to Visit Medication Sig REVLIMID 5 mg capsule TAKE 1 CAPSULE BY MOUTH DAILY FOR 28 DAYS acyclovir (ZOVIRAX) 400 mg tablet Take 1 tablet by mouth two times a day. acetaminophen (TYLENOL EXTRA STRENGTH) 500 mg tablet Take 1,000 mg by mouth every 8 hours as needed. cyanocobalamin (VITAMIN B-12) 1,000 mcg tab Take 2,000 mcg by mouth once daily. folic acid 800 mcg tablet Take 400 mcg by mouth once daily. glimepiride (AMARYL) 2 mg tablet Take 1 tablet by mouth daily with breakfast. Take 2 mg twice a day. May increase to 4mg BID if your PCP requests so. ondansetron (ZOFRAN) 8 mg tablet Take 1 tablet by mouth every 8 hours as needed for nausea/vomiting. clonazePAM (KLONOPIN) 0.5 mg tablet Take 0.5 mg by mouth once daily. amLODIPine (NORVASC) 5 mg tablet Take 10 mg by mouth once daily. atorvastatin (LIPITOR) 10 mg tablet Take 10 mg by mouth once daily. losartan (COZAAR) 50 mg tablet Take 50 mg by mouth once daily. No current facility-administered medications on file prior to visit. Vital Signs: Not performed- virtual visit General Medical Exam: General: Well-nourished appearing, NAD. Awake, alert. HEENT: Normocephalic/atraumatic. Neurological Exam: Cognition: alert and cooperative MoCA: Not assessed today (Previous score: in 11/2024) Diagnostic Results: MRI Brain from 10/03/24 IMPRESSION: Mild interval increase in size of the small left intracanalicular vestibular schwannoma since 03/29/2024. Otherwise stable appearance of the brain. NPT from 11/01/24 IMPRESSIONS: The results of today's evaluation are highly variable with no clear pattern and they are not consistent with the location of his vestibular schwannoma or a known neurodegenerative etiology. It also is not fully consistent with effects of chemotherapy treatment, though it is possible that there is some contribution from his complex medical history. None the less, this likely presents a departure from longstanding ability and warrants on going follow up. While he has left sided hearing loss and not wearing hearing aids, this also is not sufficient to explain these findings. None the less, in order to maximize perception of spoken information, he is encouraged to wear his hearing aids. Given his performance on a task sensitive to driving ability, he is encouraged to undergo a formal driving evaluation with Occupational Therapy. Follow up neuropsychological evaluation is recommended in 18-24 months or sooner if clinically indicated. These results have not been reviewed with the patient; however, they were invited to contact me to schedule a feedback if they have questions after reviewing the report and/or meeting with their referring provider. It has been a pleasure to participate in this patient's care. Please feel free to contact me if you have any questions regarding this report or my recommendations. This table should not be presented separate from this Neuropsychological Evaluation Report. Superior High Average Average X X S Naming X Reasoning Low Average Simple W S F Lexical fluency Dominant Mildly Low Symbols S/F Moderately Low *W Extremely Low 108/144 Complex F W-Yes bias Semantic fluency Non-dominant Premorbid Estimate Global Cognitive Function Attention Executive Function Processing Speed Learning Recall Recognition Language Function Visuoperceptual Function Motor MEMORY S = Stories; W = Words; F = Figures Values in horton indicates WNL WNL = within normal limits; BE = below expectation CSF Beatriz Elecsys Alzheimer's disease biomarker assay from 12/30/24 Latest Ref Rng 12/30/2024 Total-Tau / Abeta42 ratio <=0.280 0.439 (H) Phospho-Tau (181P) / Abeta42 ratio <=0.0230 0.0391 (H) Abeta42 >=564.2 pg/mL 694.7 Total-Tau <=375.4 pg/mL 305.3 Phospho-Tau (181P) <=31.30 pg/mL 27.16 Consistent with underlying AD pathology Amprion SA-Amplify ASyn-- DETECTED Misfolded alpha-synuclein aggregates detected in spinal fluid sample ASSESSMENT: (G31.84) Mild cognitive impairment (primary encounter diagnosis) (G30.1, F02.80) Late onset Alzheimer disease without behavioral disturbance (HCC) (G31.83, F02.A3) 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) (G47.52) REM sleep behavior disorder (R45.4) Irritability (R41.89) Impaired insight (C90.00) Multiple myeloma not having achieved remission (HCC) PLAN: Will start donepezil if OK w/ Dr. Mccain, w/ HR monitoring 2. Consider social worker masters visit to talk about new diagnoses and to become familiar with what her role is and what she can offer. 3. Driving monitoring - want to keep a close eye on this and err on side of caution re: if any other big concerns are seen- will want to do a Driving Evaluation vs stop driving 4. Be active and healthy in all the ways attached 5. Eat healthy - see attached also Follow up in ~6-8 weeks to check in I spent a total of 40 minutes on the date of service which included [id number] patient care and counseling and educating the patient/family. Gilbert Ramirez, MSN, [employer], CNRN CC: 1. Connie Lugo MD, (fax) [phone] documented in this encounter [facility] 01-10-2025 Telephone encounter Note Prescription Refill Information The patient has been identified by name and date of : Yes Caregiver verified no other encounters exist for this prescription request: Yes Caregiver confirmed with patient/requestor that no other refills are due, in the near future, with this provider at this time: Yes The last office visit in the department: 01/10/2025 Does the patient have a future office visit with this provider/department: Yes Requested Prescriptions Pending Prescriptions Disp Refills REVLIMID 5 mg capsule [Pharmacy Med Name: REVLIMID 5MG CAP] 28 capsule 0 Sig: TAKE 1 CAPSULE BY MOUTH DAILY FOR 28 DAYS Terri Henry LPN January 10, 2025 8:27 AM [facility] 01-10-2025 Miscellaneous Notes Prescription Refill Information The patient has been identified by name and date of : Yes Caregiver verified no other encounters exist for this prescription request: Yes Caregiver confirmed with patient/requestor that no other refills are due, in the near future, with this provider at this time: Yes The last office visit in the department: 01/10/2025 Does the patient have a future office visit with this provider/department: Yes Requested Prescriptions Pending Prescriptions Disp Refills REVLIMID 5 mg capsule [Pharmacy Med Name: REVLIMID 5MG CAP] 28 capsule 0 Sig: TAKE 1 CAPSULE BY MOUTH DAILY FOR 28 DAYS Terri Henry LPN January 10, 2025 8:27 AM documented in this encounter [facility] 01-09-2025 History of Present illness Narrative IRB # [id number], [facility]# [id number] study entitled Phase III Study of Daratumumab/rHuPH20 (NSC- [id number]) + Lenalidomide or Lenalidomide as Post-Autologous Stem Cell Transplant Maintenance Therapy in Patients with Multiple Myeloma (MM) Using Minimal Residual Disease to Direct Therapy Duration (DRAMMATIC Study). Registration Information: Informed Consent Signed 01/03/2023 Registered Step 1 01/06/2023 Informed Consent Signed Step 2 07/22/2023 Randomization Date: 08/18/2023 Addendum 11/16/2023 Treatment Arm: TAC- 1 Lenalidomide Study ID [id number] Consent to optional samples Yes Study Status Active Patient was here for Cycle 19 and saw Connie Mccain D.O.. All of the patients and his 's questions were answered at this time in regards to resolved thigh and back issues and labs. Patient doing much better overall per family and patient, but continued memory issues. The patient is getting hearing aides next week and seeing neurologist for follow-up from spinal tap 01/20/2025. Treatment Plan: Treatment Previous Cycle Cycle Current Start Date Frequency End date Lenalidomide Cycle 1 Day 1 08/24/2023 Dose Reduced 05/12/2024 5mg Cycle 18 12/12/2024-01/08/2025 Cycle 19 01/09/2025 - 02/05/2025 10/19/2023 Daily, Cycle every 28 days Clinical Trial Specific Testing Test Dates Completed Due Date Bone Marrow Biopsy CTD 07/24/2023 Baseline Step 2 [x] 07/18/2024 12 months post Step 2 [x] 07/24/2025 24 months post Step 2 [] 07/24/2026 36 months post Step 2 [] 07/24/2027 48 months post Step 2 [] QOLs PRO-CTCAE 08/17/2023 (Baseline) [x] 08/24/2023 (Cycle 1) [x] 09/21/2023 (Cycle 2) [x] 10/19/2023 (Cycle 3) [x] 11/16/2023 (Cycle 4) [x] 12/14/2023 (Cycle 5) [x] 01/11/2024 (Cycle 6) [x] 02/08/2024 (Cycle 7) [x] 03/07/2024 (Cycle 8) [x] 04/04/2024 (Cycle 9) [x] 05/02/2024 (Cycle 10) [x] 05/29/2024 (Cycle 11) [x] 06/27/2024 (Cycle 12) [x] 07/25/2024 (Cycle 13) and annual PROMIS-29 and Intolerance [x] 08/22/2024 (Cycle 14) [x] 09/18/2024 (Cycle 15) [x] 10/17/2024 (Cycle 16) [x] 11/14/2024 (Cycle 17) [x] 12/12/2024 (Cycle 18) [x] 01/09/2025 (Cycle 19) [x] Day 1 of every cycle Baseline Weight (08/24/2023 date) 80.7 kg Current Weight 86 kg (6.5% +) Creatinine Clearance 59.8 ml/min ECOG per ECOG- 1 01/09/25 Weight 86 kg (189 lb 8 oz) BSA 0 BMI 0 Temp 36.4 C (97.5 F) Resp 16 Pulse 63 BP 113/67 SpO2 100 % Bone Marrow - Plasma Cell % Free Light Chains M Protein Date Size (mm) Date [place] Lambda * IGG Date Serum Urine Diagnosis 08/24/2022 20% Diagnosis 10/26/2022 11.7 43.5 Diagnosis 10/26/2022 1.12 M protein present Baseline 07/30/2023 Less than 5%* Baseline 08/07/2023 4.7 2.5 Enrollment 07/31/2023 Cycle 1 0.22 0.00 08/24/2023 Cycle 1 4.1* 2.4* 08/24/2023 Cycle 1 0.28 0.00 09/21/2023 Cycle 2 11.7 8.7 09/21/2023 Cycle 2 0.17 0.01 10/19/2023 Cycle 3 15.5 10.5 10/19/2023 Cycle 3 0.16 0.01 11/16/2023 Cycle 4 17.4 21.4 11/16/2023 Cycle 4 0.20 0.00 12/14/2023 Cycle 5 19.4 23.1 12/14/2023 Cycle 5 0.00* 0.00 01/11/2024 Cycle 6 25.8 19.4 01/11/2024 Cycle 6 0.15 0.00 02/08/2024 Cycle 7 24.2 20.4 02/08/2024 Cycle 7 0.00* 0.00 03/07/2024 Cycle 8 22.0 15.3 03/07/2024 Cycle 8 0.23 0.0 04/04/2024 Cycle 9 22.4 17.5 04/04/2024 Cycle 9 0.24 0.00 05/02/2024 Cycle 10 23.2 16.5 05/02/2024 Cycle 10 0.00* 0.00 05/29/2024 Cycle 11 23.7 15.3 05/29/2024 Cycle 11 0.00* 0.00 06/27/2024 Cycle 12 27.7 19.3 06/27/2024 Cycle 12 0.25 0.00 07/25/2024 Cycle 13 37.8 21.5 07/25/2024 Cycle 13 0.19 0.00 08/22/2024 Cycle 14 25.2 15.7 08/22/2024 Cycle 14 0.25 0.00 09/18/2024 Cycle 15 20.5 13.2 09/18/2024 Cycle 15 0.23 0.00 10/17/2024 Cycle 16 22.8 15.2 10/17/2024 Cycle 16 0.33 0.00 11/14/2024 Cycle 17 21.6 15.4 11/14/2024 Cycle 17 0.20 0.00 12/12/2024 Cycle 18 28.0 18.3 12/12/2024 Cycle 18 0.15 0.00 01/09/2025 Cycle 19 Pending Pending 01/09/2025 Cycle 19 Pending Pending Lowest/Jacque = * Drug Accountability/Education - Completed on 01/09/2025. Patient given Cycle 19 diary. Patient did return cycle 18. Use of the study medication diary and dosing instructions were reviewed with the patient. Patient verbalizes understanding of dosing of Revlimid: Capsules should be taken whole, with water, once daily (patient takes at HS). If a dose is missed, and it has been less than 12 hours since the preceding dose, the patient should take lenalidomide as soon as the patient remembers. If it has been more than 12 hours, the patient should skip the missed dose. Patient took pills for the cycle - determining 100% compliance Patient receives drug from a private pharmacy. Lenalidomide Education and Counseling completed. Patient counseled on potential exposure to lenalidomide by Bright, engage in abstinence or use a condom when engaging in sexual contact with WOCBP, notify study doctor if female partner becomes , never share drug with anyone else, not to donate blood, semen, or sperm while taking drug and for 28 days after. Concomitant medications reviewed per protocol: Yes Patient reported changes to medication list: No changes since last visit. Current medications: Current use of anticoagulants: YES (see medications below if applicable) Anticoagulants: Eliquis 5 mg Current use of herbal preparations or medications: No Prophylactic shingles medication: Acyclovir 400 mg Current Outpatient Medications Medication Sig Start/Stop Use acyclovir (ZOVIRAX) 400 mg tablet Take 1 tablet by mouth twice daily. 05/01/2023 Prophylactic shingles ondansetron (ZOFRAN) 8 mg tablet Take 1 tablet by mouth every 8 hours as needed for nausea/vomiting. 10/26/2022 PRN Nausea clonazePAM (KLONOPIN) 0.5 mg tablet Take 0.5 mg by mouth once daily. 07/29/2023 Anxiety glimepiride (AMARYL) 4 mg tablet Take 2 capsules by mouth in AM & 1 capsule in PM. >5 years Type 2 amLODIPine (NORVASC) 5 mg tablet Take 5 mg by mouth once daily. 02/10/2021 Hypertension atorvastatin (LIPITOR) 10 mg tablet Take 10 mg by mouth once daily. 02/10/2021 Cholesterol losartan (COZAAR) 50 mg tablet Take 50 mg by mouth once daily. 02/10/2021 Hypertension Loperamide (Imodium Oral) Take 2 tablet by mouth as needed >5 years Diarrhea Sildenafil (Viagra) 50 mg tablet Take 50 mg by mouth as needed. >10 years ED Eliquis 5 mg tablet Take 1 tablet by mouth twice daily 03/23/2023 Preventative -blood thinner Melatonin 5 mg Take 1 tablet at bedtime 03/23/2023 Insomnia Revlimid 10 mg Take 1 capsule daily in the morning 08/24/2023 Stopped: 05/12/2024 MM treatment Revlimid 5 mg Take 1 capsule daily in the morning 05/12/2024 MM treatment Linzess 72 mcg Take 1 capsule for constipation symptoms once a day as needed for constipation 12/31/2023 Constipation Azithromycin (ZITHROMAX) 500 mg tablet Take 1 tablet by mouth daily 02/02/2024 Completed 02/05/2024 Antibiotic No current facility-administered medications for this visit. Medical History: PAST MEDICAL HISTORY Diagnosis Date Arthritis Treated with medication Chronic diarrhea Resolved and now constipation Diabetes mellitus (HCC) Treated with medication Essential hypertension Treated with medication Mixed hyperlipidemia Treated with medication PAST MEDICAL HISTORY Diagnosis Date Arthritis Treated with medication Chronic diarrhea Resolved Malignant melanoma (HCC) On back removed - precancerous and 06/2022 non cancerous Mixed hyperlipidemia Treated with medication Multiple myeloma not having achieved remission (HCC) Treated with medication Primary hypertension Treated with medication Pulmonary embolism (HCC) Treated with medication Right bundle branch block Treated with medication Type 2 diabetes mellitus, without long-term current use of insulin (HCC) Treated with medication Surgical History: PAST SURGICAL HISTORY Procedure Laterality Date REPAIR INCISIONAL HERNIA,REDUCIBLE Resolved 8th grade SKIN BX, 1 LESION 06/2022 non cancerous Baseline Toxicities per CTCAE v. 5: All predate therapy, are chronic conditions and will not be actively followed unless they worsen during the clinical trial. Hyperglycemia; Grade 1: Start Date: >5 years PRIOR TO STUDY Drugs to Treat: Glimepiride Action Required: None Outcome: Ongoing. (Chronic) Diarrhea; Grade 1: INTERMITTENT Start Date: >5 years PRIOR TO STUDY Drugs to Treat: Imodium Action Required: None Outcome: Ongoing. Anemia; Grade 1: Start Date: Intermittent PRIOR TO STUDY 07/24/2023 Drugs to Treat: None. Action Required: None Outcome: See Below. Aspartate aminotransferase decreased; Grade 1: Start Date: Intermittent PRIOR TO STUDY Drugs to Treat: None. Action Required: None Outcome: Ongoing Alanine aminotransferase decreased; Grade 1: Start Date: Intermittent PRIOR TO STUDY Drugs to Treat: None. Action Required: None Outcome: Ongoing Insomnia; Grade 1: Start Date: Intermittent PRIOR TO STUDY 07/21/2023 Drugs to Treat: None. Action Required: None Outcome: Ongoing. Lymphocyte Count Decreased; Grade 1: Start Date: Intermittent PRIOR TO STUDY- Possibly related to Revlimid and Drugs to Treat: None. Action Required: None Outcome: See below. Toxicities per CTCAE v. 5: White Blood Cell Count Decreased; Grade 1: Start Date: 10/17/2024. Related to Lenalidomide and cold. Drugs to Treat: None. Action Required: None Outcome: ONGOING Memory Impairment; Grade 1: Start Date: 02/08/2024. Unrelated to Lenalidomide. Drugs to Treat: None. Action Required: None Outcome: Ongoing Creatinine Increased: Grade 1: Start Date: 11/14/2024. Possibly related to Lenalidomide. Drugs to Treat: None. Action Required: None Outcome: Ongoing Weight Loss: Grade 1: Start Date: 08/2023. Unrelated to study drug - due to transplant. Drugs to Treat: None. Action Required: None Outcome: Ongoing Lymphocyte Count Decreased: Grade 2. Start Date: 12/12/2024 Decreased to baseline Grade 1 01/09/2025. Probably Related to Lenalidomide. Drugs to Treat: None. Action Required: None. Outcome: Ongoing. Patient turned in a 24 hour urine: Yes Chart sent the overseeing physician to review CTCAE toxicities. Patient knows to [facility] 02/06/2025 for C20. Patient knows to call in the interim for any questions or concerns. Patient has contact information for Uma Gill Research Nurse and Dr. Mccain, along with the office number. All other abnormal lab values are deemed not clinically significant and therefor will not be graded. Treating provider has reviewed and agrees with Adverse Events above. Chart being routed to Connie Mccain D.O.. Patient meets all Criteria for Study Participation: Yes REID Bynum, RN Clinical Research Nurse [phone] documented in this encounter [facility] 01-09-2025 History of Present illness Narrative Oncologic problem(s): 1) IgG lambda multiple myeloma. HPI: The patient is a 74-year-old male with a past medical history significant for type 2 diabetes, high cholesterol, hypertension and right bundle branch block. Patient originally presented to the emergency room at [facility] on 04/19/2022 with new onset of confusion that day which had been worsening. Laboratory work-up significant for hypokalemia. CT of the brain was unremarkable. He was admitted. During hospitalization it was noted that he had been having diarrhea for 6 to 8 weeks. Stool studies were positive for Campylobacter, blood and lactoferrin. C. difficile was negative. CT of the abdomen pelvis on 04/21/2022 noted abnormal pericholecystic edema without gallstones. Renal cysts and colonic diverticulosis were noted. He was found to have elevation of sed rate to 39, CRP 134. His albumin was 2.3. IgA low at 37. He was discharged on azithromycin, potassium and magnesium supplement. He was seen in the outpatient setting for follow-up visit on 07/11/2022. He continued to have one episode of explosive diarrhea daily. This had been going on for about 8 months. CBC on 07/11 showed a white count of 6400. Differential was normal. Hemoglobin 14.9 g/dL. Platelet count 275,000. Chemistries significant for creatinine of 1.29 g/dL. Previously 1.13 g/dL on 04/27/2022. Calcium was 9.3 mg/dL. Total bilirubin, AST, ALT and alkaline phosphatase were normal. LDH was 181. C-reactive protein was less than 2.09. Total protein was 8.8 g/dL. Total IgG was 2462 mg/dL. IgA decreased to 28 mg/dL. IgM normal at 32 mg/dL. On protein electrophoresis, patient was found to have 2M spikes both IgG lambda by immunofixation. For spike was quantitated at 1.2 g/dL and the second was quantitated at 0.6 g/dL. Cytoplasmic and perinuclear ANCA both negative. Atypical p-ANCA negative. Patient described diarrhea as loose, eran stools sometimes explosive typically one bowel movement per day however. He had not observed any blood. Had a colonoscopy [address] Arteaga. His appetite was normal. He had not lost weight. Denied reflux and nausea. He did get abdominal bloating associated with the diarrhea. He denied musculoskeletal pain. He denied symptoms of sensory neuropathy. He sees an team supervisor once a year for dilated exam. He has not been told he has retinopathy. Recent removal of early melanoma back. Blue nevus right ankle--required WLE--scheduled. PMR--about 15 years ago. Patient underwent colonoscopy on 09/21/2022. Preparation of the colon was fair. -One 6 mm polyp at the ileocecal valve, removed with a hot snare. Resected and retrieved. -One 5 mm polyp in the ascending colon, removed with a hot snare. Resected and retrieved. -Congested mucosa in the descending colon, at the splenic flexure, in the ascending colon and in the cecum. Biopsied. -Diverticulosis in the recto-sigmoid colon, in the sigmoid colon and in the descending colon. -Stool in the rectum, in the sigmoid colon, in the descending colon and at the hepatic flexure. Fluid aspiration performed. -The examined portion of the ileum was normal. Biopsied. Pathology: A. Ileocecal valve polyp, biopsy: -Consistent with fibrolipomatous polyp. -See comment. B. Small bowel, biopsy: -No pathologic change. C. Cecum, biopsy: -Mild melanosis coli. D. Colon, random biopsy: -Mild melanosis coli. E. Ascending colon polyp, biopsy: -Fragments of tubular adenoma. B, C, D & E - No congophilic material identified. Congo red stain with matched control is negative. ADDENDUM C & D. No congophilic material is noted in these biopsies on light and polarized microscopy. Congo Red stain with matched control was used in the evaluation of this case. He was diagnosed with pancreatic insufficiency and was to start pancreatic enzyme replacement. Patient had a venous duplex ultrasound on 12/16/2022 for right leg pain. That study demonstrated no evidence of DVT in the right leg. He developed chest pain and increasing shortness of breath. Went to the ED on 01/16/2023. PE protocol chest CT demonstrated multiple bilateral pulmonary emboli involving the distal portion of both the right and left main pulmonary arteries as well as branches of the upper and lower lobe pulmonary arteries, more prominent on the right side. Platelet count was 67,000. Patient was admitted and placed on unfractionated heparin with bolus. The next morning platelet count was 62,000. He was rotated to apixaban and discharged. Echocardiogram performed 01/17/2023 demonstrated normal LV size. There was moderate concentric LVH. Left ventricular systolic function was normal with an estimated ejection fraction at 60%. There was stage I diastolic dysfunction. The pulmonary artery systolic pressure was 58 mmHg. The global longitudinal strain was -11.5% (abnormal). The global longitudinal strain was moderately abnormal. (Previous echocardiogram 04/20/2022 demonstrated right ventricular systolic pressure estimated at 22 mmHg. Diastolic function was indeterminate. Right ventricular strain was not determined). His chest pain has improved. He is still short of breath with heavier exertion and sometimes walking from room to room he finds himself breathing heavier. He has been taking apixaban 10 mg twice daily. No bleeding issues. Previous therapy: 1) RVd. Cycle #1 began 11/09/2022. 2) Zometa. 3) ASCT. Transplant Summary: BMT Information ASCR infused on 06/02/2023 Planned Proposed Protocols: IP BMT AUTO MELPHALAN 200 Planned Preparative Regimen Drug: Melphalan Planned Mobilization Agent: G-CSF, Plerixafor Planned Stem Cell Source: Peripheral blood stem cells BMT Transplant Details # of cells: 6.16 Saw neurology. 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 Scheduled for EMG 01/16. Seen in the ED on 01/27/2024 for an episode of confusion that was secondary to hypoglycemia. Evidently had influenza diagnosed prior to that. Was then admitted for neutropenic fever on 01/31/2024. ANC was 600 at time of admission. Influenza A positive. Stool positive for Campylobacter. Was treated with high-dose Tamiflu secondary to underlying immunocompromise. Discharged on azithromycin 500 mg daily for 14 days. B/L hip injections 10/18. Helped significantly for several weeks. Wearing off and starting to have more pain both hips. Typically pain improves once up an moving. Denies pain otherwise. Presents for ongoing oncologic management. Interim history: Leg pain has returned. Does not hurt when sitting but when he first gets up in moving around has pain in the distal thighs. Previously received cortisone injections to the hips with significant relief. He has been tolerating apixaban well with no unusual bleeding or unexplained bruising. PMH, medications and allergies personally reviewed by me today. Any changes documented in appropriate section. ROS: Constitutional: Denies episodes of fever and night sweats. Neuro: Denies HAMILTON. HEENT: No recent change in voice, vision. Resp: Denies cough, wheeze and hemoptysis. Denies shortness of breath at rest. Denies MACE. CVS: Denies exertional chest pain, PND, orthopnea and LE edema. : Denies dysuria or gross hematuria. Endo: Denies hot flashes. Denies polyuria and polydipsia. Denies heat and cold intolerance. Musculoskeletal: See HPI. Derm: Denies rash. Denies jaundice and diffuse pruritis. Heme: Denies unusual bleeding and unexplained bruising. Psych: Normal mood. PHYSICAL EXAM: Vitals: Blood pressure 113/67, pulse 63, temperature 36.4 C (97.5 F), temperature source Temporal, weight 86 kg (189 lb 8 oz), SpO2 100%. Well-appearing and in no acute distress. EYES: Sclerae are anicteric bilaterally. LYMPHATIC: There is no palpable cervical or supraclavicular adenopathy. ABDOMEN: The abdomen is nondistended. Extremities: No swelling or edema. SKIN: No jaundice. LABS: ASSESSMENT/PLAN: (C90.00) Multiple myeloma not having achieved remission (HCC) (primary encounter diagnosis) Assessment: -The patient is a 73-year-old male has a past medical history significant for diabetes and chronic diarrhea that was characterized by one explosive watery stool daily (was diagnosed with pancreatic insufficiency). Was hospitalized 03/2022 when diarrhea significantly worsened and he was diagnosed with and treated for Campylobacter infection. During that evaluation, was found to have two IgG lambda monoclonal antibodies. He did not have hypercalcemia or anemia but had elevated serum creatinine (which may have been related to volume depletion when hospitalized for diarrhea and mental status change). 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 Low to intermediate risk disease (PCs 20%). -Imaging--no lytic lesions on whole body CT; Liver cyst and splenic nodule (6-12 month f/u MRI recommended). -Bone marrow negative for amyoid. -Colonic biopsies negative for amyloid. -Subsequent MRI of spine and pelvis revealed two T2 hyperintense foci in the pelvis, one in the left sacral rebeka and one in the right ischium. -FISH panel revealed (11;14) (q13;q32) (IGH/CCND1) translocation consistent with the presence of a plasma cell neoplasm associated with standard risk disease. -R-ISS stage I (serum beta microglobulin less than 3.5 mg/L and serum albumin greater than 3.5 g/dL; standard risk disease by FISH testing as outlined above and serum LDH less than upper limit of normal). -Serum monoclonal protein from November indicates SD. -Reviewed CBC. Counts allow continued therapy. -ECOG PS 1. Plan: -Continue lenalidomide at current dose. -Follow-up on finalized results of today's serum protein electrophoresis. -CBC, chemistries and serum protein electrophoresis and immunofixation as well as 24-hour urine collection for electrophoresis and immunofixation monthly per protocol. Supportive care: ID: Plan: -Continue acyclovir. Skeletal: -Only lytic lesions observed over those in the pelvic bones on MRI initially. Plan: -Zometa every 3 months--next due 03/06/2025. Chronic PE. Assessment: -B/L PE on ASA prophylaxis. -Previous evidence of pulmonary hypertension on echocardiogram. -Tolerating apixaban well. -CBC reveals no thrombocytopenia. -Okay to hold for LP if he requires it. Plan: -Continue apixaban. Neuro: -No symptoms of neuropathy. Portions of this documentation were copied and pasted from my previous office visit note dated 12/12/2024 in order to provide a cohesive continuity of the history. The note has been reviewed and edited and updated as necessary. Connie Mccain DO documented in this encounter [facility] 01-01-2025 History of Present illness Narrative Jury Duty letter written and provided to Gilbert Ramirez APRN, CNP for his review and signature. Once completed our Primer Inspector will send the letter via a My Chart attachment to the patient. Fariha Melchor RN documented in this encounter [facility] 12-30-2024 History of Present illness Narrative [facility] LUMBAR PUNCTURE NURSE DISCHARGE NOTE The patient has undergone a lumbar puncture procedure and at this time has completed their post procedural rest period. Vital Signs: BP 126/62 (BP Site: Left Arm, BP Position: Supine, BP Cuff Size: Regular Adult) Pulse (!) 55 Insertion Site Dressing: clean, dry, or intact Ensured that patient and caregiver had a copy of LP discharge instructions and addressed questions/concerns if present: Yes Patient permitted to leave at this time, accompanied by spouse, Louise Verbal and written discharge instructions provided Denies lightheadedness, dizziness and headache No numbness or tingling Assessed back dressing with . Dressing dry and intact Up ambulating in room without difficulty Discharged home with , Louise Fariha Melchor RN [facility] LUMBAR PUNCTURE PROCEDURE INFORMED CONSENT Oseas Joseph Medical Record: [id number] Procedure: Lumbar Puncture The risks, benefits and anticipated outcomes of the procedure, the risks and benefits of the alternatives to the procedure and the roles and tasks of the personnel to be involved were discussed with the patient and the patient consents to the procedure and agrees to proceed. I verify that I personally obtained Oseas Joseph's consent. Gilbert Ramirez APRN.EVELIN December 30, 2024 8:26 AM Dept of NEUROLOGY UNIVERSAL PROTOCOL / SAFETY CHECKLIST Procedure to be Performed: Lumbar Puncture Sign In: A Moment of CARE was completed. Appropriate PPE (Personal Protective Equipment) worn by all providers involved with the procedure. Special equipment not required. Patient/Surrogate Stated/Verified: Patient name, Date of , Relevant allergies, and The intended procedure Time Out: Relevant labs, photos, and/or imaging studies have been reviewed. Intended patient and procedure match the source document(s) (e.g. consent, H&P, associated studies [imaging, pathology]) match the intended patient and procedure. Consent obtained and matches the intended procedure. Yes. Correct side/site has been marked and visible. Medications required for this procedure are not applicable Fire risk assessed and is not applicable. Implants: are not applicable. Sign Out: Specimens are all correctly labeled and sent. All instruments, equipment, possible retained foreign bodies are accounted for. Yes. The post-procedure plan of care has been communicated to the patient or surrogate. Pre-Procedure Labs: Latest Ref Rng 12/24/2024 PT Sec <13.1 sec 12.7 PT INR 0.9 - 1.3 1.2 APTT 23.0 - 32.4 sec 27.8 Latest Ref Rng 12/12/2024 Platelet Count 150 - 400 k/uL 198 Pertinent History: Prior LP or Epidural: no Allergy to lidocaine: no Allergy to betadine: no Taking anticoagulants: yes -- has held Xarelto since 12/28/24 Back problems or trauma: no Pre-LP vitals: BP 138/73 (BP Site: Right Arm, BP Position: Sitting, BP Cuff Size: Regular Adult) Pulse (!) 57 Procedure: Performed by: Gilbert Ramirez APRN.CNP December 30, 2024 8:26 AM Asst: Fariha Melchor RN Relevant documentation, images, implants or special equipment present: N/A Patient positioned: upright Prepped and draped under aseptic conditions. Procedural site marked, verified by: Gilbert Ramirez APRN.CNP. Site: L4-5 AUDIBLE TIME OUT: 0845 EST, Patient verified by name and . Procedure verified. Local administration of 1% lidocaine 5cc. Interspace entered with Sprotte 22 gauge 9cm spinal needle spinal needle Opening pressure obtained: no CSF obtained: 9cc for patient testing. Appearance: clear and colorless Spinal needle removed, area cleansed and bandage applied. Patient placed supine. Sign Out Discussion Post-LP instructions given: YES Verbal and written Pt. tolerated procedure well: yes Pt. remained supine for 30 min Post-LP vitals: 0943 BP 126/62 (BP Site: Left Arm, BP Position: Supine, BP Cuff Size: Regular Adult) Pulse (!) 55 Gilbert Ramirez APRN.CNP December 30, 2024 8:26 AM documented in this encounter [facility] 12-30-2024 Instructions Gilbert Ramirez APRN.CNP - 12/30/2024 8:31 AM EDT Images from the original note were not included. [facility] [place] GOING HOME INSTRUCTIONS POST LP HEADACHE Prevention Drink plenty of fluids - Water is best. Also include (in addition to water) caffeinated drinks such as coffee or tea. Take it easy- NO heavy lifting or strenuous exercise for the next 48 hours What to do if you develop a Headache: A spinal headache is usually worse in the sitting or standing position and feels better when laying down. This headache, which can be severe, would typically start in the first 24 to 48 hours after the LP and last anywhere from several hours to 7-10 days. It responds best to complete bedrest. Continue to drinking plenty of fluids including water and caffeinated drinks such as coffee or tea You can take [id number] Tylenol and/or Ibuprofen as directed INFECTION PREVENTION The procedure was done under sterile field which helps to prevent infection. Do not sit in any water for the next 48 hours. No swimming, hot tubs or bath. You may shower tomorrow. When should I call my provider? You can always call us if you have a question. -If during regular office hours: Monday thru Monday from 8-5pm, please contact our office line [phone] and then hit [phone], please ask our administrative nursing supervisor to page the provider who performed the spinal tap. -For nights or weekends, call or toll free and ask the laser beam trim operator the page the Neurology resident on-call. 2. If your headache is unusually severe regardless of bedrest or lasts more than two days 3. If you develop a fever 4. If you notice inflammation, pus formation or clear drainage from the site of the needle puncture You may resume your usual activities after 48 hours. Resume Xarelto on morning of 01/01/25 documented in this encounter [facility] 12-25-2024 History of Present illness Narrative PRE-LUMBAR PUNCTURE CARE COORDINATION ABSTRACT -Patient scheduled for LP on 12/30/2024. -Current anticoagulants per EMR medication list: Xarelto -Outstanding pre-procedural lab orders: None Care Coordination Interventions: LP Information sheet sent via [email or web address] message Per Dr. Mccain it is okay to hold the Xarelto 2 days prior to and 2 days post lumbar puncture. 12/25/2024 - Spoke with Louise, patient's and reviewed the above the recommendations for holding the Xarelto. Fariha Melchor, RN Latest Ref Rng 12/24/2024 APTT 23.0 - 32.4 sec 27.8 Latest Ref Rng 12/24/2024 PT Sec <13.1 sec 12.7 PT INR 0.9 - 1.3 1.2 Latest Ref Rng 12/12/2024 WBC 3.70 - 11.00 k/uL 3.29 (L) RBC 4.20 - 6.00 m/uL 4.16 (L) Hemoglobin 13.0 - 17.0 g/dL 12.8 (L) Hematocrit 39.0 - 51.0 % 39.5 MCV 80.0 - 100.0 fL 95.0 MCH 26.0 - 34.0 pg 30.8 MCHC 30.5 - 36.0 g/dL 32.4 RDW-CV 11.5 - 15.0 % 13.9 Platelet Count 150 - 400 k/uL 198 MPV 9.0 - 12.7 fL 9.8 Neut% % 56.8 Abs Neut (ANC) 1.45 - 7.50 k/uL 1.87 Lymph% % 21.0 Abs Lymph 1.00 - 4.00 k/uL 0.69 (L) Morton% % 12.2 Abs Morton <0.87 k/uL 0.40 Eosin% % 7.9 Abs Eosin <0.46 k/uL 0.26 Baso% % 1.2 Abs Baso <0.11 k/uL 0.04 Immature Gran % % 0.9 IMMATURE GRANS (ABS) <0.10 k/uL 0.03 NRBC /100 WBC 0.0 Absolute nRBC <0.01 k/uL <0.01 DTYPE Auto Platelet Estimate Red Cell Morph Ovalocytes RBC Fragments None Seen [place]% % Left Shift Polychromasia Anisocytosis Tear Drop Myelo% % Basophilic Stippling Legend: (L) Low documented in this encounter [facility] 12-23-2024 Telephone encounter Note Spoke with Louise, the patient's . She was advised that the lumbar puncture orders have been placed and the procedure is ready to schedule. Our scheduling phone number was provided. [phone], option 2. Fariha Melchor RN [facility] Work Phone: 12-23-2024 Miscellaneous Notes Spoke with Louise, the patient's . She was advised that the lumbar puncture orders have been placed and the procedure is ready to schedule. Our scheduling phone number was provided. [phone], option 2. Fariha Melchor RN Spoke with Louise, the patient's . Discussed that Gilbert Ramirez APRN, EVELIN was in contact with Dr. Myrna Mccain to discuss the lumbar puncture and the recommendations for holding the Xarelto for the lumbar puncture. Per Dr. Mccain it is okay to hold the Xarelto 2 days prior to and 2 days post lumbar puncture. Louise is in agreement with these recommendations. Oseas is going to have the anticoagulation blood work completed on 12/24/2024. Louise is asking for the lumbar puncture orders to be placed and she will schedule the procedure. She was advised that some one form our office will contact her once the orders are placed. Fariha Melchor RN 12/23/24 General scheduling reached the office on behalf of the patient to request an order for LP. Please let me know once this has been placed and I will notify the patient to proceed with scheduling. Thank you! -IN documented in this encounter [facility] 12-23-2024 Telephone encounter Note Spoke with Louise, the patient's . Discussed that Gilbert Ramirez APRN, EVELIN was in contact with Dr. Myrna Mccain to discuss the lumbar puncture and the recommendations for holding the Xarelto for the lumbar puncture. Per Dr. Mccain it is okay to hold the Xarelto 2 days prior to and 2 days post lumbar puncture. Louise is in agreement with these recommendations. Oseas is going to have the anticoagulation blood work completed on 12/24/2024. Louise is asking for the lumbar puncture orders to be placed and she will schedule the procedure. She was advised that some one form our office will contact her once the orders are placed. Fariha Melchor RN [facility] 12-23-2024 Telephone encounter Note 12/23/24 General scheduling reached the office on behalf of the patient to request an order for LP. Please let me know once this has been placed and I will notify the patient to proceed with scheduling. Thank you! -IN [facility] 12-19-2024 History of Present illness Narrative Per Dr. Dunia tiwari to hold Xarelto 2 days prior to and 2 days post LP Gilbert Ramirez APRN.EVELIN documented in this encounter [facility] 12-19-2024 History of Present illness Narrative Staff message received from Dr. Connie Mccain providing clearance to hold Xarelto two days prior and two days post lumbar puncture. Fariha Melchor RN documented in this encounter [facility] 12-18-2024 Gilbert Corbett APRN.CNP - 12/18/2024 4:58 PM EST I will reach out to [facility] re: permission to stop Xarelto for LP 2. Blood draw on 01/09 for safety labs (adding on PT, PTT, INR) 3. Lumbar Puncture-- as soon as we get the OK from Dr. Mccain for holding Xarelto, and the safety labs are completed. I will order those now and you can have them done at any [facility] lab. Please call [phone] to schedule this - however please wait several days so that I can get Dr. Macsi OK to hold Xarelto. 4. On the morning of LP-- take normal morning medications, eat breakfast, wear comfortable clothes, and someone should accompany you Follow up for LP and then 2-3 weeks post-LP for discussion of results documented in this encounter [facility] 12-18-2024 History of Present illness Narrative Images from the original note were not included. Oseas Joseph 1950 [address] [facility] [address] December 18, 2024 [facility] VIRTUAL FOLLOW-UP NOTE This visit was conducted using audio + video elements. I have communicated my name and active licensure. The patient's identity and physical location were verified at the time of this visit. Either the patient or their legal sales representative has been informed of the risks and benefits of -- and alternatives to -- treatment through a remote evaluation and consents to proceed with the evaluation remotely. Accompanied by: spouse Louise and daughter Solange (Nicole), son Nico Joseph is a pleasant 74 year old male seen today for a follow up visit. Oseas Joseph is being followed for (R41.3) Memory loss (primary encounter diagnosis) (G47.52) REM sleep behavior disorder (R45.4) Irritability (R41.89) Impaired insight Patient was last seen on 11/29/24, at which time: -- new patient to [facility] for ~2-3 yrs of cognitive changes Previous plan included: Agree with hearing aids- these will be important! 2. Let me discuss the testing results with my colleagues and reach back out to you once we meet. 3. Please continue to drive cautiously. If more changes are being seen, we will be more insistent that you have a Driving Evaluation 4. Stay hydrated! 5. Review accompanying information about brain health recommendations 6. If you do decide to do a Driving Evaluation- please call [phone] Follow up virtually in approx 3 weeks to reconvene Today, Nico and his family returns for a routine follow up visit. In the interim, we did have a consensus conversation about Mr. Joseph and it was felt that it could be reasonable to hold off on CSF analysis for now- as several aspects of medical illness could be contributing to the picture- and it is not entirely clear that a neurodegenerative process is likely Despite this, there remains a concern for these changes and ongoing progressive decline and most of his family today do not want to be conservative and wait for a re-evaluation (MRI/NPT) in 1 year- would rather be proactive and do LP to assess for neurodegenerative biomarkers. Nico feels that he maybe is being pushed into doing more tests- he is resistant to doing more tests. He just wants to be back to normal and be able to do what I want to do We talked further about it and his family helped him understand why It may be important to know this information now- as opposed to waiting until later when he may not be able to tolerate the procedure Ultimately everyone was in agreement w/ proceeding w/ LP I explained the Amprion SA-Amplify ASyn test and how there is a potential OOP cost associated. They understood. FAST Functional Assessment Staging Tool 3. Decreased job function evident to co-workers; difficulty traveling to new locations PAST MEDICAL HISTORY Diagnosis Date Arthritis Chronic diarrhea Malignant melanoma (HCC) Mixed hyperlipidemia Multiple myeloma not having achieved remission (HCC) 10/26/2022 Other hyperlipidemia 04/17/2023 Primary hypertension 04/17/2023 Pulmonary embolism (HCC) Right bundle branch block 04/17/2023 Type 2 diabetes mellitus, without long-term current use of insulin (HCC) 04/17/2023 SOCIAL HISTORY Social History Tobacco Use Smoking status: Never Smokeless tobacco: Never Vaping Use Vaping status: Never Used Substance Use Topics Alcohol use: Not Currently Comment: social Drug use: Never Social History reviewed by Gilbert Ramirez, [email or web address] APPRENTICE WOOD PROMIS-10 11/14/2024 06/26/2024 PROMIS 10 Health, in general Very good Good Quality of life, in general Good Good Physical health, in general Good Good Mental health, in general Good Fair Social activities satisfaction Good Fair Performing ADL's Mostly Mostly Social role satisfaction Good Fair Pain, on average 3 7 Fatigue, on average Mild Moderate Emotional problems Rarely Sometimes PHYSICAL Score 47.7 (Good) 39.8 (Fair) MENTAL Score 45.8 (Good) 38.8 (Fair) PHQ-9 11/25/2024 11/14/2024 PHQ-9 All Questions Little interest or pleasure in doing things: 0 0 Feeling down, depressed, or hopeless: 0 0 (0-4) minimal depression (5-9) mild depression (10-14) moderate depression (15-19) moderately severe depression (20-27) severe depression Full History of PHQ-9 Scores No data to display Sleep 12/18/2023 -- Snore Loudly Yes Tired, fatigued or sleepy in daytime Yes Stop breathing or choking/gasping during sleep No High blood pressure Yes Probability of moderate-severe sleep apnea (%) SAPS V2 66 (Recommend sleep study) OBJECTIVE Current Outpatient Medications on File Prior to Visit Medication Sig rivaroxaban (XARELTO) 20 mg tablet TAKE 1 TABLET BY MOUTH ONCE DAILY WITH DINNER REVLIMID 5 mg capsule TAKE 1 CAPSULE BY MOUTH DAILY FOR 28 DAYS acyclovir (ZOVIRAX) 400 mg tablet Take 1 tablet by mouth two times a day. acetaminophen (TYLENOL EXTRA STRENGTH) 500 mg tablet Take 1,000 mg by mouth every 8 hours as needed. tiZANidine (ZANAFLEX) 2 mg tablet Take 1 tablet by mouth every 6 hours as needed. (Patient not taking: Reported on 12/12/2024) cyanocobalamin (VITAMIN B-12) 1,000 mcg tab Take 2,000 mcg by mouth once daily. folic acid 800 mcg tablet Take 400 mcg by mouth once daily. sildenafil (VIAGRA) 50 mg tablet Take 50 mg by mouth as needed. glimepiride (AMARYL) 2 mg tablet Take 1 tablet by mouth daily with breakfast. Take 2 mg twice a day. May increase to 4mg BID if your PCP requests so. ondansetron (ZOFRAN) 8 mg tablet Take 1 tablet by mouth every 8 hours as needed for nausea/vomiting. clonazePAM (KLONOPIN) 0.5 mg tablet Take 0.5 mg by mouth once daily. amLODIPine (NORVASC) 5 mg tablet Take 10 mg by mouth once daily. atorvastatin (LIPITOR) 10 mg tablet Take 10 mg by mouth once daily. losartan (COZAAR) 50 mg tablet Take 50 mg by mouth once daily. No current facility-administered medications on file prior to visit. Vital Signs: Not performed- virtual visit General Medical Exam: General: Well-nourished appearing, NAD. Awake, alert. HEENT: Normocephalic/atraumatic. Neurological Exam: Cognition: alert and cooperative MoCA: Not assessed today (Previous score: in 11/2023.) Orientation: alert Appearance: normal grooming Eye contact: normal Facial expression: appropriate Psychomotor: normal Speech/Language: unremarkable -can name, repeat with no dysarthria Mood: OK Affect: pleasant PDW:no SI:no Self-injurious behavior:no Emotional state: calm, cooperative Thought Process: logical Thought Content: appropriate Hallucinations: none Diagnostic Results: MRI Brain from 10/03/24 IMPRESSION: Mild interval increase in size of the small left intracanalicular vestibular schwannoma since 03/29/2024. Otherwise stable appearance of the brain. NPT from 11/01/24 IMPRESSIONS: The results of today's evaluation are highly variable with no clear pattern and they are not consistent with the location of his vestibular schwannoma or a known neurodegenerative etiology. It also is not fully consistent with effects of chemotherapy treatment, though it is possible that there is some contribution from his complex medical history. None the less, this likely presents a departure from longstanding ability and warrants on going follow up. While he has left sided hearing loss and not wearing hearing aids, this also is not sufficient to explain these findings. None the less, in order to maximize perception of spoken information, he is encouraged to wear his hearing aids. Given his performance on a task sensitive to driving ability, he is encouraged to undergo a formal driving evaluation with Occupational Therapy. Follow up neuropsychological evaluation is recommended in 18-24 months or sooner if clinically indicated. These results have not been reviewed with the patient; however, they were invited to contact me to schedule a feedback if they have questions after reviewing the report and/or meeting with their referring provider. It has been a pleasure to participate in this patient's care. Please feel free to contact me if you have any questions regarding this report or my recommendations. This table should not be presented separate from this Neuropsychological Evaluation Report. Superior High Average Average X X S Naming X Reasoning Low Average Simple W S F Lexical fluency Dominant Mildly Low Symbols S/F Moderately Low *W Extremely Low 108/144 Complex F W-Yes bias Semantic fluency Non-dominant Premorbid Estimate Global Cognitive Function Attention Executive Function Processing Speed Learning Recall Recognition Language Function Visuoperceptual Function Motor MEMORY S = Stories; W = Words; F = Figures Values in horton indicates WNL WNL = within normal limits; BE = below expectation Labs/Data Latest Ref [facility] 11/14/2024 WBC 3.70 - 11.00 k/uL 3.03 (L) RBC 4.20 - 6.00 m/uL 4.16 (L) Hemoglobin 13.0 - 17.0 g/dL 13.0 Hematocrit 39.0 - 51.0 % 39.3 MCV 80.0 - 100.0 fL 94.5 MCH 26.0 - 34.0 pg 31.3 MCHC 30.5 - 36.0 g/dL 33.1 RDW-CV 11.5 - 15.0 % 13.7 Platelet Count 150 - 400 k/uL 154 MPV 9.0 - 12.7 fL 9.4 Neut% % 41.7 Abs Neut (ANC) 1.45 - 7.50 k/uL 1.27 (L) Lymph% % 30.4 Abs Lymph 1.00 - 4.00 k/uL 0.92 (L) [place]% % 17.2 Abs [place] <0.87 k/uL 0.52 Eosin% % 8.3 Abs Eosin <0.46 k/uL 0.25 Baso% % 1.7 Abs Baso <0.11 k/uL 0.05 Immature Gran % % 0.7 IMMATURE GRANS (ABS) <0.10 k/uL <0.03 NRBC /100 WBC 0.0 Absolute nRBC <0.01 k/uL <0.01 DTYPE Auto Protein, Total 6.3 - 8.0 g/dL 6.3 Albumin 3.9 - 4.9 g/dL 4.1 Calcium 8.5 - 10.2 mg/dL 8.9 Bilirubin, Total 0.2 - 1.3 mg/dL 0.4 Alkaline Phosphatase 38 - 113 U/L 50 AST 14 - 40 U/L 12 (L) ALT 10 - 54 U/L 14 Glucose 74 - 99 mg/dL 157 (H) BUN 9 - 24 mg/dL 20 Creatinine 0.73 - 1.22 mg/dL 1.44 (H) Sodium 136 - 144 mmol/L 140 Potassium 3.7 - 5.1 mmol/L 3.9 Chloride 98 - 107 mmol/L 108 (H) CO2 22 - 30 mmol/L 24 Anion Gap 8 - 15 mmol/L 8 eGFR >=60 mL/min/1.73m 52 (L) Legend: (L) Low (H) High TSH (mIU/L) Date Value 05/29/2024 2.130 Vitamin B12 (pg/mL) Date Value 05/29/2024 184 Folate (ng/mL) Date Value 05/29/2024 8.4 Vitamin D 25 Hydroxy (ng/mL) Date Value 10/26/2022 37.7 ASSESSMENT: (G31.84) Mild cognitive impairment (primary encounter diagnosis) (R41.3) Memory loss (G47.52) REM sleep behavior disorder (R45.4) Irritability (R41.89) Impaired insight (C90.00) Multiple myeloma not having achieved remission (HCC) PLAN: I will reach out to [facility] re: permission to stop Xarelto for LP 2. Blood draw for safety labs ( PT, PTT, INR) 3. Lumbar Puncture-- as soon as we get the OK from Dr. Mccain for holding Xarelto, and the safety labs are completed. I will order those now and you can have them done at any [facility] lab. Please call [phone] to schedule this - however please wait several days so that I can get Dr. Giordano OK to hold Xarelmark. 4. On the morning of LP-- take normal morning medications, eat breakfast, wear comfortable clothes, and someone should accompany you Follow up for LP and then 2-3 weeks post-LP for discussion of results I spent a total of 40 minutes on the date of service which included [id number] patient care and counseling and educating the patient/family. Gilbert Ramirez, MSN, [employer], CNRN CC: 1. Connie Lugo MD, (fax) [phone] documented in this encounter [facility] 12-17-2024 Telephone encounter Note Prescription Refill Information The patient has been identified by name and date of : Yes Caregiver verified no other encounters exist for this prescription request: Yes Caregiver confirmed with patient/requestor that no other refills are due, in the near future, with this provider at this time: Yes The last office visit in the department: 12/12/2024 Does the patient have a future office visit with this provider/department: Yes Requested Prescriptions Pending Prescriptions Disp Refills XARELTO 20 mg tablet [Pharmacy Med Name: Xarelto 20 MG Oral Tablet] 30 tablet 0 Sig: TAKE 1 TABLET BY MOUTH ONCE DAILY WITH DINNER Terri Henry LPN December 17, 2024 7:15 AM [facility] 12-17-2024 Miscellaneous Notes Prescription Refill Information The patient has been identified by name and date of : Yes Caregiver verified no other encounters exist for this prescription request: Yes Caregiver confirmed with patient/requestor that no other refills are due, in the near future, with this provider at this time: Yes The last office visit in the department: 12/12/2024 Does the patient have a future office visit with this provider/department: Yes Requested Prescriptions Pending Prescriptions Disp Refills XARELTO 20 mg tablet [Pharmacy Med Name: Xarelto 20 MG Oral Tablet] 30 tablet 0 Sig: TAKE 1 TABLET BY MOUTH ONCE DAILY WITH DINNER Terri Hnery LPN December 17, 2024 7:15 AM documented in this encounter [facility] 12-16-2024 Telephone encounter Note Prescription Refill Information [employer] auth # [id number] The patient has been identified by name and date of : Yes Caregiver verified no other encounters exist for this prescription request: Yes Caregiver confirmed with patient/requestor that no other refills are due, in the near future, with this provider at this time: Yes The last office visit in the department: 12/12/2024 Does the patient have a future office visit with this provider/department: Yes Requested Prescriptions Pending Prescriptions Disp Refills REVLIMID 5 mg capsule [Pharmacy Med Name: REVLIMID 5MG CAP] 28 capsule 0 Sig: TAKE 1 CAPSULE BY MOUTH DAILY FOR 28 DAYS Terri Henry LPN December 16, 2024 7:39 AM [facility] 12-16-2024 Miscellaneous Notes Prescription Refill Information [employer] auth # [id number] The patient has been identified by name and date of : Yes Caregiver verified no other encounters exist for this prescription request: Yes Caregiver confirmed with patient/requestor that no other refills are due, in the near future, with this provider at this time: Yes The last office visit in the department: 12/12/2024 Does the patient have a future office visit with this provider/department: Yes Requested Prescriptions Pending Prescriptions Disp Refills REVLIMID 5 mg capsule [Pharmacy Med Name: REVLIMID 5MG CAP] 28 capsule 0 Sig: TAKE 1 CAPSULE BY MOUTH DAILY FOR 28 DAYS Terri Henry LPN December 16, 2024 7:39 AM documented in this encounter [facility] 12-12-2024 Telephone encounter Note SOCIAL WORK FOLLOW UP NOTE: [facility] Date of service: December 12, 2024 Oseas Joseph is being seen for a follow up social work visit. Today's visit includes: spouse TOPICS ADDRESSED: finances - SW met with pt's this date and discussed pt's MM dom through [employer]. Pt's reports that with pt's memory beginning to fail she is now in charge of all finances which she never had been before. SW answered all questions as able to help ensure knows how to utilize [employer] dom. SW and pt also reviewed income guidelines from the [employer] so pt's is aware of limits it pt chooses to re-enroll at the end of the year. Also reviewed dom balance and active dates with pt's . Spouse appreciative of information and verbalized understanding of how dom is utilized. No other needs identified at this time. PLAN: Assist with financial support applications and Continue follow up as needed F/U APPOINTMENT: PRN Assigned ARIADNE listed in Care Team tab: Yes LEONOR Byrnes-Tim [facility] 12-12-2024 Miscellaneous Notes SOCIAL WORK FOLLOW UP NOTE: [facility] Date of service: December 12, 2024 Oseas Joseph is being seen for a follow up social work visit. Today's visit includes: spouse TOPICS ADDRESSED: finances - SW met with pt's this date and discussed pt's MM dom through [employer]. Pt's reports that with pt's memory beginning to fail she is now in charge of all finances which she never had been before. SW answered all questions as able to help ensure knows how to utilize [employer] dom. SW and pt also reviewed income guidelines from the [employer] so pt's is aware of limits it pt chooses to re-enroll at the end of the year. Also reviewed dom balance and active dates with pt's . Spouse appreciative of information and verbalized understanding of how dom is utilized. No other needs identified at this time. PLAN: Assist with financial support applications and Continue follow up as needed F/U APPOINTMENT: PRN Assigned ARIADNE listed in Care Team tab: Yes LEONOR Byrnes-S documented in this encounter [facility] 12-12-2024 History of Present illness Narrative Oncologic problem(s): 1) IgG lambda multiple myeloma. HPI: The patient is a 74-year-old male with a past medical history significant for type 2 diabetes, high cholesterol, hypertension and right bundle branch block. Patient originally presented to the emergency room at [facility] on 04/19/2022 with new onset of confusion that day which had been worsening. Laboratory work-up significant for hypokalemia. CT of the brain was unremarkable. He was admitted. During hospitalization it was noted that he had been having diarrhea for 6 to 8 weeks. Stool studies were positive for Campylobacter, blood and lactoferrin. C. difficile was negative. CT of the abdomen pelvis on 04/21/2022 noted abnormal pericholecystic edema without gallstones. Renal cysts and colonic diverticulosis were noted. He was found to have elevation of sed rate to 39, CRP 134. His albumin was 2.3. IgA low at 37. He was discharged on azithromycin, potassium and magnesium supplement. He was seen in the outpatient setting for follow-up visit on 07/11/2022. He continued to have one episode of explosive diarrhea daily. This had been going on for about 8 months. CBC on 07/11 showed a white count of 6400. Differential was normal. Hemoglobin 14.9 g/dL. Platelet count 275,000. Chemistries significant for creatinine of 1.29 g/dL. Previously 1.13 g/dL on 04/27/2022. Calcium was 9.3 mg/dL. Total bilirubin, AST, ALT and alkaline phosphatase were normal. LDH was 181. C-reactive protein was less than 2.09. Total protein was 8.8 g/dL. Total IgG was 2462 mg/dL. IgA decreased to 28 mg/dL. IgM normal at 32 mg/dL. On protein electrophoresis, patient was found to have 2M spikes both IgG lambda by immunofixation. For spike was quantitated at 1.2 g/dL and the second was quantitated at 0.6 g/dL. Cytoplasmic and perinuclear ANCA both negative. Atypical p-ANCA negative. Patient described diarrhea as loose, eran stools sometimes explosive typically one bowel movement per day however. He had not observed any blood. Had a colonoscopy December [address] Arteaga. His appetite was normal. He had not lost weight. Denied reflux and nausea. He did get abdominal bloating associated with the diarrhea. He denied musculoskeletal pain. He denied symptoms of sensory neuropathy. He sees an team supervisor once a year for dilated exam. He has not been told he has retinopathy. Recent removal of early melanoma back. Blue nevus right ankle--required WLE--scheduled. PMR--about 15 years ago. Patient underwent colonoscopy on 09/21/2022. Preparation of the colon was fair. -One 6 mm polyp at the ileocecal valve, removed with a hot snare. Resected and retrieved. -One 5 mm polyp in the ascending colon, removed with a hot snare. Resected and retrieved. -Congested mucosa in the descending colon, at the splenic flexure, in the ascending colon and in the cecum. Biopsied. -Diverticulosis in the recto-sigmoid colon, in the sigmoid colon and in the descending colon. -Stool in the rectum, in the sigmoid colon, in the descending colon and at the hepatic flexure. Fluid aspiration performed. -The examined portion of the ileum was normal. Biopsied. Pathology: A. Ileocecal valve polyp, biopsy: -Consistent with fibrolipomatous polyp. -See comment. B. Small bowel, biopsy: -No pathologic change. C. Cecum, biopsy: -Mild melanosis coli. D. Colon, random biopsy: -Mild melanosis coli. E. Ascending colon polyp, biopsy: -Fragments of tubular adenoma. B, C, D & E - No congophilic material identified. Congo red stain with matched control is negative. ADDENDUM C & D. No congophilic material is noted in these biopsies on light and polarized microscopy. Congo Red stain with matched control was used in the evaluation of this case. He was diagnosed with pancreatic insufficiency and was to start pancreatic enzyme replacement. Patient had a venous duplex ultrasound on 12/16/2022 for right leg pain. That study demonstrated no evidence of DVT in the right leg. He developed chest pain and increasing shortness of breath. Went to the ED on 01/16/2023. PE protocol chest CT demonstrated multiple bilateral pulmonary emboli involving the distal portion of both the right and left main pulmonary arteries as well as branches of the upper and lower lobe pulmonary arteries, more prominent on the right side. Platelet count was 67,000. Patient was admitted and placed on unfractionated heparin with bolus. The next morning platelet count was 62,000. He was rotated to apixaban and discharged. Echocardiogram performed 01/17/2023 demonstrated normal LV size. There was moderate concentric LVH. Left ventricular systolic function was normal with an estimated ejection fraction at 60%. There was stage I diastolic dysfunction. The pulmonary artery systolic pressure was 58 mmHg. The global longitudinal strain was -11.5% (abnormal). The global longitudinal strain was moderately abnormal. (Previous echocardiogram 04/20/2022 demonstrated right ventricular systolic pressure estimated at 22 mmHg. Diastolic function was indeterminate. Right ventricular strain was not determined). His chest pain has improved. He is still short of breath with heavier exertion and sometimes walking from room to room he finds himself breathing heavier. He has been taking apixaban 10 mg twice daily. No bleeding issues. Previous therapy: 1) RVd. Cycle #1 began 11/09/2022. 2) Zometa. 3) ASCT. Transplant Summary: BMT Information ASCR infused on 06/02/2023 Planned Proposed Protocols: IP BMT AUTO MELPHALAN 200 Planned Preparative Regimen Drug: Melphalan Planned Mobilization Agent: G-CSF, Plerixafor Planned Stem Cell Source: Peripheral blood stem cells BMT Transplant Details # of cells: 6.16 Saw neurology. 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 Scheduled for EMG 01/16. Seen in the ED on 01/27/2024 for an episode of confusion that was secondary to hypoglycemia. Evidently had influenza diagnosed prior to that. Was then admitted for neutropenic fever on 01/31/2024. ANC was 600 at time of admission. Influenza A positive. Stool positive for Campylobacter. Was treated with high-dose Tamiflu secondary to underlying immunocompromise. Discharged on azithromycin 500 mg daily for 14 days. Presents for ongoing oncologic management. Interim history: B/L hip injections 10/18. Helped significantly for several weeks. Wearing off and starting to have more pain both hips. Typically pain improves once up an moving. Denies pain otherwise. Saw neurology at [facility]. Potential LP for further work up of memory loss. Three days of fatigue and self-limited diarrhea last week. All symptoms resolved. He has been tolerating apixaban well with no unusual bleeding or unexplained bruising. PMH, medications and allergies personally reviewed by me today. Any changes documented in appropriate section. ROS: Constitutional: Denies episodes of fever and night sweats. Neuro: Denies HAMILTON. HEENT: No recent change in voice, vision. Resp: Denies cough, wheeze and hemoptysis. Denies shortness of breath at rest. Denies MACE. CVS: Denies exertional chest pain, PND, orthopnea and LE edema. : Denies dysuria or gross hematuria. Endo: Denies hot flashes. Denies polyuria and polydipsia. Denies heat and cold intolerance. Musculoskeletal: See HPI. Derm: Denies rash. Denies jaundice and diffuse pruritis. Heme: Denies unusual bleeding and unexplained bruising. Psych: Normal mood. PHYSICAL EXAM: Vitals: Blood pressure 139/77, pulse 68, temperature 36.8 C (98.2 F), weight 86 kg (189 lb 8 oz), SpO2 98%. Well-appearing and in no acute distress. EYES: Sclerae are anicteric bilaterally. LYMPHATIC: There is no palpable cervical or supraclavicular adenopathy. ABDOMEN: The abdomen is nondistended. Extremities: No swelling or edema. SKIN: No jaundice. LABS: ASSESSMENT/PLAN: (C90.00) Multiple myeloma not having achieved remission (HCC) (primary encounter diagnosis) Assessment: -The patient is a 73-year-old male has a past medical history significant for diabetes and chronic diarrhea that was characterized by one explosive watery stool daily (was diagnosed with pancreatic insufficiency). Was hospitalized 03/2022 when diarrhea significantly worsened and he was diagnosed with and treated for Campylobacter infection. During that evaluation, was found to have two IgG lambda monoclonal antibodies. He did not have hypercalcemia or anemia but had elevated serum creatinine (which may have been related to volume depletion when hospitalized for diarrhea and mental status change). 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 Low to intermediate risk disease (PCs 20%). -Imaging--no lytic lesions on whole body CT; Liver cyst and splenic nodule (6-12 month f/u MRI recommended). -Bone marrow negative for amyoid. -Colonic biopsies negative for amyloid. -Subsequent MRI of spine and pelvis revealed two T2 hyperintense foci in the pelvis, one in the left sacral rebeka and one in the right ischium. -FISH panel revealed (11;14) (q13;q32) (IGH/CCND1) translocation consistent with the presence of a plasma cell neoplasm associated with standard risk disease. -R-ISS stage I (serum beta microglobulin less than 3.5 mg/L and serum albumin greater than 3.5 g/dL; standard risk disease by FISH testing as outlined above and serum LDH less than upper limit of normal). -Serum monoclonal protein in October was down to 0.2. Discussed with him and his family today that no concerns of progressive disease at this point. -He will likely need hip replacement surgery in the future. Family was concerned as to how this would affect myeloma treatment. He would have to hold Revlimid perioperatively due to thrombogenic nature of the drug but from a [id number] standpoint he would benefit significantly from hip replacement so I explained that we would work around it as far as managing his myeloma. -Reviewed CBC. Counts allow continued therapy. -ECOG PS 1. Plan: -Continue lenalidomide at current dose. -Follow-up on finalized results of today's serum protein electrophoresis. -CBC, chemistries and serum protein electrophoresis and immunofixation as well as 24-hour urine collection for electrophoresis and immunofixation monthly per protocol. Supportive care: ID: Plan: -Continue acyclovir. Skeletal: -Only lytic lesions observed over those in the pelvic bones on MRI initially. Plan: -Zometa every 3 months. -Okay for today's dose. Chronic PE. Assessment: -B/L PE on ASA prophylaxis. -Previous evidence of pulmonary hypertension on echocardiogram. -Tolerating apixaban well. -CBC reveals no thrombocytopenia. -Okay to hold for LP if he requires it. Plan: -Continue apixaban. Neuro: -No symptoms of neuropathy. Portions of this documentation were copied and pasted from my previous office visit note dated 11/14/2024 in order to provide a cohesive continuity of the history. The note has been reviewed and edited and updated as necessary. Connie Mccain DO Est. Pt. , clinical trial, discuss recent lab results. Terri Henry LPN documented in this encounter [facility] 12-12-2024 History of Present illness Narrative IRB # [id number], [facility]# [id number] study entitled Phase III Study of Daratumumab/rHuPH20 (NSC- [id number]) + Lenalidomide or Lenalidomide as Post-Autologous Stem Cell Transplant Maintenance Therapy in Patients with Multiple Myeloma (MM) Using Minimal Residual Disease to Direct Therapy Duration (DRAMMATIC Study). Registration Information: Informed Consent Signed 01/03/2023 Registered Step 1 01/06/2023 Informed Consent Signed Step 2 07/22/2023 Randomization Date: 08/18/2023 Addendum 11/16/2023 Treatment Arm: TAC- 1 Lenalidomide Study ID [id number] Consent to optional samples Yes Study Status Active Treatment Plan: Treatment Previous Cycle Cycle Current Start Date Frequency End date Lenalidomide Dose Reduced 05/12/2024 5mg Cycle 17 11/14/2024 - 12/11/2024 Cycle 18 12/12/2024-01/08/2025 C1 D1 08/24/2023 Daily, Cycle every 28 days Clinical Trial Specific Testing Test Dates Completed Due Date Bone Marrow Biopsy CTD 07/24/2023 Baseline Step 2 [x] 07/18/2024 12 months post Step 2 [x] 07/24/2025 24 months post Step 2 [] 07/24/2026 36 months post Step 2 [] 07/24/2027 48 months post Step 2 [] QOLs PRO-CTCAE 12/12/2024 Day 1 of every cycle Baseline Weight (08/24/2023 date) 80.7 kg Current Weight 85.96 kg (+6.5%) Creatinine Clearance per Cockcroft-Gault) 65 ml/min ECOG per MD ECOG 1 ONCOLOGY VITALS (ALL DEPTS) 12/12/2024 Temp 36.8 C (98.2 F) Pulse 68 Resp 18 SYSTOLIC 139 DIASTOLIC 77 SpO2 98 % WEIGHT (lb) 189 lb 8 oz WEIGHT (kg) 85.957 kg BSA (Mosteller Formula) 2.11 m2 BMI 24.87 kg/m2 Patient in clinic with and daughter for Cycle 18 of S1803. Patient reports no new complaints. Patient reported intermittent change in stool consistency although not consistent with diarrhea. Patient continues to meet criteria for treatment. Drug Accountability/Education -Patient returned Cycle 17 diary and reported no missed doses - patient was 100% compliant. -Patient given Cycle 18 diary. Use of the study medication diary and dosing instructions were reviewed with the patient. Patient verbalizes understanding of dosing of lenalidomide: Capsules should be taken whole, with water, once daily (patient takes in AM). If a dose is missed, and it has been less than 12 hours since the preceding dose, the patient should take lenalidomide as soon as the patient remembers. If it has been more than 12 hours, the patient should skip the missed dose. -Lenalidomide Education and Counseling completed. Patient counseled on potential exposure to lenalidomide: engage in abstinence or use a condom when engaging in sexual contact with W[facility], notify study doctor if female partner becomes , never share drug with anyone else, not to donate blood, semen, or sperm while taking drug and for 28 days after. Current medications: Reviewed with no changes. Current use of anticoagulants: YES (see medications below if applicable) Anticoagulants: Eliquis 5 mg Current use of herbal preparations or medications: No Prophylactic shingles medication: Acyclovir 400 mg Current Outpatient Medications Medication Sig Start/Stop Use acyclovir (ZOVIRAX) 400 mg tablet Take 1 tablet by mouth twice daily. 05/01/2023 Prophylactic shingles ondansetron (ZOFRAN) 8 mg tablet Take 1 tablet by mouth every 8 hours as needed for nausea/vomiting. 10/26/2022 PRN Nausea clonazePAM (KLONOPIN) 0.5 mg tablet Take 0.5 mg by mouth once daily. 07/29/2023 Anxiety glimepiride (AMARYL) 4 mg tablet Take 2 capsules by mouth in AM & 1 capsule in PM. >5 years Type 2 amLODIPine (NORVASC) 5 mg tablet Take 5 mg by mouth once daily. 02/10/2021 Hypertension atorvastatin (LIPITOR) 10 mg tablet Take 10 mg by mouth once daily. 02/10/2021 Cholesterol losartan (COZAAR) 50 mg tablet Take 50 mg by mouth once daily. 02/10/2021 Hypertension Loperamide (Imodium Oral) Take 2 tablet by mouth as needed >5 years Diarrhea Sildenafil (Viagra) 50 mg tablet Take 50 mg by mouth as needed. >10 years ED Eliquis 5 mg tablet Take 1 tablet by mouth twice daily 03/23/2023 Preventative -blood thinner Melatonin 5 mg Take 1 tablet at bedtime 03/23/2023 Insomnia Revlimid 10 mg Take 1 capsule daily in the morning 08/24/2023 Stopped: 05/12/2024 MM treatment Revlimid 5 mg Take 1 capsule daily in the morning 05/12/2024 MM treatment Linzess 72 mcg Take 1 capsule for constipation symptoms once a day as needed for constipation 12/31/2023 Constipation PAST MEDICAL HISTORY Diagnosis Date Arthritis Treated with medication Chronic diarrhea Resolved Malignant melanoma (HCC) On back removed - precancerous and 06/2022 non cancerous Mixed hyperlipidemia Treated with medication Multiple myeloma not having achieved remission (HCC) Treated with medication Primary hypertension Treated with medication Pulmonary embolism (HCC) Treated with medication Right bundle branch block Treated with medication Type 2 diabetes mellitus, without long-term current use of insulin (HCC) Treated with medication PAST SURGICAL HISTORY Procedure Laterality Date REPAIR INCISIONAL HERNIA,REDUCIBLE Resolved 8th grade SKIN BX, 1 LESION 06/2022 non cancerous Baseline Toxicities per CTCAE v. 5: All predate therapy, are chronic conditions and will not be actively followed unless they worsen during the clinical trial. Hyperglycemia; Grade 1: Start Date: >5 years PRIOR TO STUDY Drugs to Treat: Glimepiride Action Required: None Outcome: Ongoing. (Chronic) Diarrhea; Grade 1: INTERMITTENT Start Date: >5 years PRIOR TO STUDY Drugs to Treat: Imodium Action Required: None Outcome: Ongoing. Anemia; Grade 1: Start Date: Intermittent PRIOR TO STUDY 07/24/2023 Drugs to Treat: None. Action Required: None Outcome: See Below. Aspartate aminotransferase decreased; Grade 1: Start Date: Intermittent PRIOR TO STUDY Drugs to Treat: None. Action Required: None Outcome: Ongoing Alanine aminotransferase decreased; Grade 1: Start Date: Intermittent PRIOR TO STUDY Drugs to Treat: None. Action Required: None Outcome: Ongoing Insomnia; Grade 1: Start Date: Intermittent PRIOR TO STUDY 07/21/2023 Drugs to Treat: None. Action Required: None Outcome: Ongoing. Lymphocyte Count Decreased; Grade 1: Start Date: Intermittent PRIOR TO STUDY- Possibly related to Revlimid and Drugs to Treat: None. Action Required: None Outcome: See below. Toxicities per CTCAE v. 5: White Blood Cell Count Decreased; Grade 1: Start Date: 10/17/2024. Related to Lenalidomide and cold. Drugs to Treat: None. Action Required: None Outcome: ONGOING Memory Impairment; Grade 1: Start Date: 02/08/2024. Unrelated to Lenalidomide. Drugs to Treat: None. Action Required: None Outcome: Ongoing Creatinine Increased: Grade 1: Start Date: 11/14/2024. Possibly related to Lenalidomide. Drugs to Treat: None. Action Required: None Outcome: Ongoing Neutrophil Count Decreased: Grade 1: Start Date: 11/14/2024. Possibly Related to Lenalidomide. Drugs to Treat: None. Action Required:None Outcome: Resolved as of 12/12/2024. Anemia: Grade 1. Start Date: 12/12/2024. Probably Related to Lenalidomide. Drugs to Treat: None. Action Required: None. Outcome: Ongoing. Lymphocyte Count Decreased: Grade 2. Start Date: 12/12/2024. Probably Related to Lenalidomide. Drugs to Treat: None. Action Required: None. Outcome: Ongoing. All other abnormal lab values are deemed not clinically significant and therefor will not be graded. Treating provider has reviewed and agrees with Adverse Events above. Chart being routed to Connie Mccain D.O.. Patient knows to [facility] 01/09/2025 for C19. Patient knows to call in the interim for any questions or concerns. Patient has contact information for Uma Gill Research Nurse and Dr. Mccain, along with the office number. Eugenie Lao, MSN, RN, OCN documented in this encounter [facility] 11-29-2024 Instructions Gilbert Ramriez, PHARMACIST CRITICAL CARE.PATTERNMAKER APPRENTICE WOOD - 11/29/2024 3:00 PM EST Agree with hearing aids- these will be important! 2. Let me discuss the testing results with my colleagues and reach back out to you once we meet. 3. Please continue to drive cautiously. If more changes are being seen, we will be more insistent that you have a Driving Evaluation 4. Stay hydrated! 5. Review accompanying information about brain health recommendations 6. If you do decide to do a Driving Evaluation- please call [phone] Follow up virtually in approx 3 weeks to reconvene Ways to keep your brain healthy: -Stay social. Staying social and connected is extremely important for brain health. Having a rich social network has been shown to provide sources of support as well as reduce stress, combat depression, and enhance intellectual stimulation. Some studies have shown that those with significant social interaction have experienced a slower rate of memory decline. -Stay active. Regular exercise has been shown to be helpful for the brain as well as the body! There is no specific activity in particular (ex. walking, swimming, elliptical machine, cycling, Artis Chi, etc.). We recommend maintaining your target heart rate for about 30 minutes with aerobic exercise, three or more days per week. Even regular walking is good exercise! Working out with other people may help you stay on track and allow you to maintain being social! -Eat a healthy diet. Poor nutrition may contribute to problems with thinking. Make sure you get a balanced diet with fruits and vegetables, not too much red meat, and some fish (Mediterranean diet has proven to be very effective). Eating meals with others is a great social activity. -Keep your brain active. Brain activity is very important and may help your nerve cell connect with each other better. It also makes for a healthier, happier lifestyle. Some things that can keep your brain active include: Reading Playing cards Brain games or apps such as Lumosity Puzzles, word jumble games Hobbies Listening to music, going to concerts (if able) Going to art museums and galleries -Get good sleep. Sleep is important in forming new memories. We recommend avoiding medicines for sleep due to side effects. If you snore excessively, if your body jerks at night, or if you have what appears to be bad dreams frequently, getting a sleep evaluation may be useful. Some of these problems of sleep can be treated. -Keeping a daily calendar in one place may be helpful, especially having a standard schedule that does not change too much. -Learning something new. Learning something new can help create new neural pathways in your brain. Some examples can be learning a new language, taking up painting, gardening, knitting, etc. MIND Diet guidelines: - Eat 1/2 cup berries, especially blueberries and strawberries, at least 2x per week. - Eat 1 handful (1/4 cup) nuts at least 5x per week. Include walnuts. - Eat 100% whole grains 3x per day (brown rice, wild rice, black rice, quinoa, barley, bulgur, farro, rolled oats, steel cut oats, amaranth, spelt, millet, wheat berries). - Eat 1-2 cups of leafy greens at least 6x per week (spinach, arugula, kale, mustard greens, lashell greens, dandelion greens, willian lettuce). - Eat at least 1 other vegetable (other than dark leafy greens) every day. - Eat 1/2 cup beans or lentils at least 3x per week. - Eat fish at least once per week. Choose low mercury fish: salmon, sardines, anchovies, everett, halibut, scallops. Avoid fried fish and fish high in mercury (swordfish, [place] sea calvillo, orange roughy, ahi tuna, albacore (white) tuna). Choose light/skipjack tuna instead of white tuna, and limit to 2 servings/week because it has some mercury. - Eat chicken at least 2x per week. - Extra virgin olive oil is the primary oil used at home for cooking and on salads. - Limit margarine and butter to less than 1 Tbsp per day. - Limit red meat and processed meats to less than 4x per week. Red meat: beef, pork, suazo, venison, veal, bison. Processed meats: marks, hotdogs, salami, sausage, pepperoni, pastrami, cold cuts, ham - Limit sweets, candy, and pastries to less than 5x per week. - Limit cheese to 1 serving per week or less. 1 serving = 1 ounce. - Limit alcohol to 1 drink per day for women and 2 drinks per day for men. - Avoid fried foods and fast foods. documented in this encounter [facility] 11-29-2024 History of Present illness Narrative Referral Source: Betsy Kemp [address] [facility] [id number] November 29, 2024 [facility] INITIAL PATIENT EVALUATION Oseas Joseph 1950 Accompanied by: spouse Louise, daughter History of Present Illness: Identifying Information: Oseas Joseph is a 74 year old RIGHT-handed, , White, male with a past medical history of HTN, HLD, R BBB, T2DM, chronic PE on Xarelto, Multiple myeloma since 2022 on Revlimid, R thigh neuropathy, incidental L vestibular schwannoma, RBD on clonazepam, who presents for short-term memory changes. Onset and progression: Oseas's spouse and daughter report seeing memory difficulties starting around the time of his Multiple Myeloma diagnosis in 2021- For which he has had a bone marrow transplant The MM is not in full remission yet but he remains on Revlimid Nico himself notices it more so in the last 3 months- and did not notice it as early as his family did. Primary issues are confusion, some degree of ST memory/rapid forgetting- however hints do help bring things back to him to some degree Has some paraphasias- WFD- and losing train of thought at times. We have nephews who play sports (meant to say grandkids) The TV remote gives him more trouble- harder for him to navigate No VH/AH reported, no delusions or paranoia Denies depression or anxiety, but spouse reports ++irritability- which is a change from pre-multiple myeloma diagnosis. He can be irritable in response to things she says, situations that occur on a daily basis, or for no apparent reason. Of note he is defensive today during interview and refutes or challenges most of what is reported by his family today, with some exceptions Several occasions after waking from a nap - he may say where did they go?, where is everybody at? (As if there was company over) Appetite is good. +SPOKANE- will be getting hearing aides Was getting lost while driving at times- but this is not happening frequently. They usually drive together. They have not pursued a driving evaluation yet. Since myeloma diagnosis - spouse manages his medications (there are many now) - she did not give him a chance to manage these himself - so is unsure if he could do this independently Spouse has gotten more involved in the finances- they now jointly manage - as some things were getting missed +gait changes due to OA in bilateral hips, femoral neuropathy They deny shuffling gait No tremor noted, no generalized slowing reported He established with General Neurology in 04/2024 for the above difficulties MoCA: on 05/22/24 Was found to have low B12 level which is now being supplemented Most recent MRI Brain from 10/03/24 demonstrates mild generalized volume loss in the bilateral hemispheres and in hippocampi and temporal lobes without particular lobar pattern; minimal SVID changes, and 1-2 remote microhemorrhages in SWI Oseas underwent Neuropsych Testing on 11/01/24 which revealed low average learning and memory for a word list, with impaired delayed recall- recalling just over half of what was learned With recognition cues, he has a yes bias and was not able to discriminate between target and distractor items, memory for stories is low average with decent retention over a delay, and memory for visual designs was far below expectation Semantic fluency was impaired, much more than lexical Overall results were highly variable and did not show a clear pattern that would fit with a known neurodegenerative etiology, but likely represent a departure from longstanding ability Sleep: -- 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 Has been on clonazepam QHS through Sleep Medicine provider Dr. Bowser at [facility]- this is helping. Quality of sleep has been good on KLP Will take a 45min-1hour nap 3-4 days/week Functional Abilities Living Situation: With Family Requires assistance with the following ADL's: taking medications, grocery shopping, driving, and finances IADL's Meal prep/Cooking: Needs assistance Shopping: Needs assistance Housekeeping: Independent Laundry: Independent Medication mgt.: Needs assistance Telephone: Independent Driving: Needs cuing Finances: Needs assistance Family History: The patient family history includes Colon Cancer in his paternal grandmother; Diabetes in his brother, father, maternal grandmother, mother, and sister; Heart in his brother and sister; Hyperlipidemia in his brother; Hypertension in his brother, father, maternal grandmother, mother, paternal grandfather, and sister; No Known Problems in his sister, sister, sister, and sister; Renal Disease in his mother. The patient He indicated that his mother is . He indicated that his father is . He indicated that five of his six sisters are alive. He indicated that his brother is alive. He indicated that his maternal grandmother is . He indicated that his maternal grandfather is . He indicated that his paternal grandmother is . He indicated that his paternal grandfather is . 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 He has never used smokeless tobacco. Alcohol Use: Not Currently (social) reports no history of drug use. Past Medical History: The patient has a past medical history of Arthritis, Chronic diarrhea, Malignant melanoma (HCC), Mixed hyperlipidemia, Multiple myeloma not having achieved remission (HCC) (10/26/2022), Other hyperlipidemia (04/17/2023), Primary hypertension (04/17/2023), Pulmonary embolism ([facility]), Right bundle branch block (04/17/2023), and Type 2 diabetes mellitus, without long-term current use of insulin ([facility]) (04/17/2023). Past Surgical History: The patient has a past surgical history that includes repair incisional hernia,reducible and skin bx, 1 lesion (06/2022). Allergies: ALLERGIES No Known Allergies Medications: Current Outpatient Medications on File Prior to Visit Medication Sig REVLIMID 5 mg capsule TAKE 1 CAPSULE BY MOUTH DAILY FOR 28 DAYS rivaroxaban (XARELTO) 20 mg tablet Take 1 tablet by mouth daily with dinner. acetaminophen (TYLENOL EXTRA STRENGTH) 500 mg tablet Take 1,000 mg by mouth every 8 hours as needed. tiZANidine (ZANAFLEX) 2 mg tablet Take 1 tablet by mouth every 6 hours as needed. cyanocobalamin (VITAMIN B-12) 1,000 mcg tab Take 2,000 mcg by mouth once daily. folic acid 800 mcg tablet Take 400 mcg by mouth once daily. acyclovir (ZOVIRAX) 400 mg tablet Take 1 tablet by mouth two times a day. sildenafil (VIAGRA) 50 mg tablet Take 50 mg by mouth as needed. glimepiride (AMARYL) 2 mg tablet Take 1 tablet by mouth daily with breakfast. Take 2 mg twice a day. May increase to 4mg BID if your PCP requests so. (Patient taking differently: Take 4 mg by mouth two times a day with meals. Take 4 mg twice a day. May increase to 4mg BID if your PCP requests so.) ondansetron (ZOFRAN) 8 mg tablet Take 1 tablet by mouth every 8 hours as needed for nausea/vomiting. clonazePAM (KLONOPIN) 0.5 mg tablet Take 0.5 mg by mouth once daily. amLODIPine (NORVASC) 5 mg tablet Take 10 mg by mouth once daily. atorvastatin (LIPITOR) 10 mg tablet Take 10 mg by mouth once daily. losartan (COZAAR) 50 mg tablet Take 50 mg by mouth once daily. No current facility-administered medications on file prior to visit. Review of Systems: MUSCULOSKELETAL: Positive for joint pain: - +hip OA bilaterally All other systems negative. OBJECTIVE Gul[place]ermo Cognitive Assessment (MoCA) Version 7.1 Total Score: 18/30 Visuospatial/Executive Alternating [place] Making: Patient is unable to successfully complete the task. (0) Visuoconstructional Skills (Shape): Patient is unable to successfully complete the task. (0) Visuoconstructional Skills (Clock): Abnormal-Hands Visuospatial/Executive Score: 2/5 Naming The patient was able to name: Lion, Rhinoceros or Rhino, Camel or Dromedary Naming Score: 3/3 Memory Trials Memory Trial (1): The patient was able to correctly register: 2/5 Memory Trial (2): The patient was able to correctly register: 4/5 Attention Forward Digit Span: Correct (+1) Backward Digit Span: Incorrect (0) Vigilance: Correct (+1) Attention - Serial 7's: (4 or 5) Correct subtractions (+3) Attention Score: 5/6 Language Sentence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 mouth once daily. HISTORIES PAST MEDICAL HISTORY Diagnosis Date Arthritis Chronic diarrhea Malignant melanoma (HCC) Mixed hyperlipidemia Multiple myeloma not having achieved remission (HCC) 10/26/2022 Other hyperlipidemia 04/17/2023 Primary hypertension 04/17/2023 Pulmonary embolism (HCC) Right bundle branch block 04/17/2023 Type 2 diabetes mellitus, without long-term current use of insulin ([facility]) 04/17/2023 FAMILY HISTORY Problem Relation Age of Onset Diabetes Mother Hypertension Mother Renal Disease Mother Hypertension Father Diabetes Father Hypertension Sister Diabetes Sister No Known Problems Sister No Known Problems Sister No Known Problems Sister No Known Problems Sister Heart Sister Hypertension Brother Diabetes Brother Hyperlipidemia Brother Heart Brother Hypertension Maternal Grandmother Diabetes Maternal Grandmother Colon Cancer Paternal Grandmother Hypertension Paternal Grandfather SOCIAL HISTORY Social History Tobacco Use Smoking status: Never Smokeless tobacco: Never Vaping Use Vaping status: Never Used Substance Use Topics Alcohol use: Not Currently Comment: social Drug use: Never PHYSICAL EXAMINATION BP 120/71 Pulse 66 Resp 16 Wt 87 kg (191 lb 12.8 oz) SpO2 99% BMI 25.17 kg/m GENERAL EXAM: General appearance: NAD, pleasant. HEENT: NC/AT, nasal congestion absent, no oral lesions, membranes moist. NECK: No masses, supple. Lungs: Breathing comfortably Extr: Moves all extremities without difficulty Skin: Cool to touch. No rash. NEUROLOGICAL EXAM: General: Awake, alert, oriented x3 (person,place,time), speech fluent, no dysarthria; comprehension, naming, repetition intact. Limited short-term memory CN: PERRL, EOMI and without nystagmus, VFF to confrontation, facial sensation and strength are normal and symmetric, hearing is intact to finger rub bilaterally, palate and tongue movements are intact and symmetric. SCM and trapezius strength normal. Motor: Slight increased tone on the right upper extremity, cogwheel rigidity. Full strength throughout upper and lower extremities. Coordination: Possible slight decrease rapid alternating movements with hand overhand in the left upper extremity Sensation: No evidence of neglect. Gait: Gait is overall without any shuffle, but occasionally will have some decrease in swing on the left upper extremity. Negative retropulsion Assessment and Plan: ASSESSMENT/PLAN: 1. Memory loss - ICD9: 780.93, ICD10: R41.3 (primary diagnosis) 2. REM sleep behavior disorder - ICD9: 327.42, ICD10: G47.52 Patient with consistent and continued short-term or issues. Started a few days ago after he was started on treatment for his multiple myeloma, following with Dr. Mccain. Family notes some change in cognition at that time that has progressively worsened. MRI of the brain with some mild atrophy of the hippocampal and temporal lobes, but no significant changes. Previous MRI ordered for maintenance of his vestibular schwannoma, no quantitative analysis ordered. Did order neuropsych testing which showed generalized loss in cognition but no etiology found. Concern for it being multifactoral. Labs including B12, folate and syphilis negative. Today discussed patient's sleep. Notes that he is had some issues with REM sleep disorder currently on Klonopin for this. Does have some anosmia but notes this is secondary to COVID, some mild rigidity on upper extremities and slight decrease in rapid alternating movements of the left upper extremity. No Capgras hallucinations or significant personality changes however, due to progressive memory loss and REM sleep abnormalities concern for possible Lewy body other neurocognitive disease contributing to patient's memory loss. Discussed referral to brain health for further evaluation and patient is amenable to this. Will refrain from any medications at this time. Encouraged conservative therapy in the meantime including continuing with physical exercise and cognitive exercise. Did discuss concern for driving as well due to poor cognition on neuropsych testing. Encouraged him to schedule occupational therapy evaluation for driving. No new symptoms that would warrant additional workup at this time. Patient and family agreeable to treatment plan of care at this time, questions were answered. Patient to follow-up as needed. Betsy Kemp PA-C I spent a total of 40 minutes on the date of the service which included preparing to see the patient, [id number] patient care, completing clinical documentation, obtaining and/or reviewing separately obtained history, performing a medically appropriate examination, counseling and educating the patient/family/caregiver, and ordering medications, tests, or procedures. This document has been created with the use of voice recognition technology. It may contain inaccuracies: (e.g. misspellings, inaccurate syntax or word sense) that have escaped review. 11/14/2024 PROMIS Global Health Physical Health Summary Physical health: Good Everyday physical activity, ability: Mostly Fatigue: Mild Pain level: 3 General health: Very good Social activities/roles, ability: Good Physical Health T-Score 47.7 (Good) Physical Health Percentile 41 PROMIS Global Health Mental Health Summary Quality of life: Good Mental health (mood,thinking): Good Social satisfaction: Good Emotional problems (anxious,depressed): Rarely Mental Health T-Score 45.8 (Good) Mental Health Percentile 34 Percentiles provide an indication of how a patient's score ranks in relation to the [place] general population. > 31st percentile is within normal limits or better *< 31st percentile is at least SD worse than population, which may be clinically relevant < 16th percentile is at least 1 SD worse than population and warrants attention documented in this encounter [facility] 11-18-2024 Telephone encounter Note Called patient and and discussed M-protein results and trial protocol on Progression. Patient and state understanding and answered and questions and concerns at this time. Temo Gill RN [facility] 11-18-2024 Miscellaneous Notes Called patient and and discussed M-protein results and trial protocol on Progression. Patient and state understanding and answered and questions and concerns at this time. Temo Gill RN documented in this encounter [facility] 11-18-2024 Telephone encounter Note [employer] auth #[id number]. Please send electronically. Betsy Henriquez LPN [facility] 11-18-2024 Miscellaneous Notes [employer] auth #[id number]. Please send electronically. Betsy Henriquez LPN documented in this encounter [facility] 11-18-2024 Telephone encounter Note This was sent in 11/17/2024. Betsy Henriquez LPN [facility] 11-18-2024 Miscellaneous Notes This was sent in 11/17/2024. Betsy Henriquez LPN documented in this encounter [facility] 11-15-2024 Telephone encounter Note Scheduled patient as directed Venessa Meehan [facility] 11-15-2024 Miscellaneous Notes Scheduled patient as directed Venessa Meehan documented in this encounter [facility] 11-14-2024 History of Present illness Narrative IRB # [id number], [facility]# [id number] study entitled Phase III Study of Daratumumab/rHuPH20 (NSC- [id number]) + Lenalidomide or Lenalidomide as Post-Autologous Stem Cell Transplant Maintenance Therapy in Patients with Multiple Myeloma (MM) Using Minimal Residual Disease to Direct Therapy Duration (DRAMMATIC Study). Registration Information: Informed Consent Signed 01/03/2023 Registered Step 1 01/06/2023 Informed Consent Signed Step 2 07/22/2023 Randomization Date: 08/18/2023 Addendum 11/16/2023 Treatment Arm: TAC- 1 Lenalidomide Study ID [id number] Consent to optional samples Yes Study Status Active Patient was here for Cycle 17 and saw Connie Mccain D.O.. All of the patients and his 's questions were answered at this time in regards to resolved thigh and back issues and labs. Patient doing much better overall per family and patient, but continued memory issues. Treatment Plan: Treatment Previous Cycle Cycle Current Start Date Frequency End date Lenalidomide Cycle 1 Day 1 08/24/2023 Dose Reduced 05/12/2024 5mg Cycle 16 10/18/2024-11/13/2024 = 100% Cycle 17 11/14/2024 - 12/11/2024 10/19/2023 Daily, Cycle every 28 days Clinical Trial Specific Testing Test Dates Completed Due Date Bone Marrow Biopsy CTD 07/24/2023 Baseline Step 2 [x] 07/18/2024 12 months post Step 2 [x] 07/24/2025 24 months post Step 2 [] 07/24/2026 36 months post Step 2 [] 07/24/2027 48 months post Step 2 [] QOLs PRO-CTCAE 08/17/2023 (Baseline) [x] 08/24/2023 (Cycle 1) [x] 09/21/2023 (Cycle 2) [x] 10/19/2023 (Cycle 3) [x] 11/16/2023 (Cycle 4) [x] 12/14/2023 (Cycle 5) [x] 01/11/2024 (Cycle 6) [x] 02/08/2024 (Cycle 7) [x] 03/07/2024 (Cycle 8) [x] 04/04/2024 (Cycle 9) [x] 05/02/2024 (Cycle 10) [x] 05/29/2024 (Cycle 11) [x] 06/27/2024 (Cycle 12) [x] 07/25/2024 (Cycle 13) and annual PROMIS-29 and Intolerance [x] 08/22/2024 (Cycle 14) [x] 09/18/2024 (Cycle 15) [x] 10/17/2024 (Cycle 16) [x] 11/14/2024 (Cycle 17) [x] 12/12/2024 (Cycle 18) [] Day 1 of every cycle Baseline Weight (08/24/2023 date) 80.7 kg Current Weight 87 kg (9% +) Creatinine Clearance 52.7 ml/min ECOG per ECOG- 1 Bone Marrow - Plasma Cell % Free Light Chains M Protein Date Size (mm) Date [place] Lambda * IGG Date Serum Urine Diagnosis 08/24/2022 20% Diagnosis 10/26/2022 11.7 43.5 Diagnosis 10/26/2022 1.12 M protein present Baseline 07/30/2023 Less than 5%* Baseline 08/07/2023 4.7 2.5 Enrollment 07/31/2023 Cycle 1 0.22 0.00 08/24/2023 Cycle 1 4.1* 2.4* 08/24/2023 Cycle 1 0.28 0.00 09/21/2023 Cycle 2 11.7 8.7 09/21/2023 Cycle 2 0.17 0.01 10/19/2023 Cycle 3 15.5 10.5 10/19/2023 Cycle 3 0.16 0.01 11/16/2023 Cycle 4 17.4 21.4 11/16/2023 Cycle 4 0.20 0.00 12/14/2023 Cycle 5 19.4 23.1 12/14/2023 Cycle 5 0.00* 0.00 01/11/2024 Cycle 6 25.8 19.4 01/11/2024 Cycle 6 0.15 0.00 02/08/2024 Cycle 7 24.2 20.4 02/08/2024 Cycle 7 0.00* 0.00 03/07/2024 Cycle 8 22.0 15.3 03/07/2024 Cycle 8 0.23 0.0 04/04/2024 Cycle 9 22.4 17.5 04/04/2024 Cycle 9 0.24 0.00 05/02/2024 Cycle 10 23.2 16.5 05/02/2024 Cycle 10 0.00* 0.00 05/29/2024 Cycle 11 23.7 15.3 05/29/2024 Cycle 11 0.00* 0.00 06/27/2024 Cycle 12 27.7 19.3 06/27/2024 Cycle 12 0.25 0.00 07/25/2024 Cycle 13 37.8 21.5 07/25/2024 Cycle 13 0.19 0.00 08/22/2024 Cycle 14 25.2 15.7 08/22/2024 Cycle 14 0.25 0.00 09/18/2024 Cycle 15 20.5 13.2 09/18/2024 Cycle 15 0.23 0.00 10/17/2024 Cycle 16 22.8 15.2 10/17/2024 Cycle 16 0.33 0.00 11/14/2024 Cycle 17 21.6 15.4 11/14/2024 Cycle 17 0.20 0.00 Lowest/Jacque = * 11/19/24 10:27 Weight 87 kg (191 lb 12.8 oz) BSA 0 BMI 0 Pulse 66 Resp 16 BP 120/71 SpO2 99 % Drug Accountability/Education - Completed on 11/14/2024. Patient given Cycle 17 diary. Patient did return cycle 16. Use of the study medication diary and dosing instructions were reviewed with the patient. Patient verbalizes understanding of dosing of Revlimid: Capsules should be taken whole, with water, once daily (patient takes at HS). If a dose is missed, and it has been less than 12 hours since the preceding dose, the patient should take lenalidomide as soon as the patient remembers. If it has been more than 12 hours, the patient should skip the missed dose. Patient took pills for the cycle - determining 100% compliance Patient receives drug from a private pharmacy. Lenalidomide Education and Counseling completed. Patient counseled on potential exposure to lenalidomide by [facility], engage in abstinence or use a condom when engaging in sexual contact with [facility], notify study doctor if female partner becomes , never share drug with anyone else, not to donate blood, semen, or sperm while taking drug and for 28 days after. Concomitant medications reviewed per protocol: Yes Patient reported changes to medication list: No changes since last visit. Current medications: Current use of anticoagulants: YES (see medications below if applicable) Anticoagulants: Eliquis 5 mg Current use of herbal preparations or medications: No Prophylactic shingles medication: Acyclovir 400 mg Current Outpatient Medications Medication Sig Start/Stop Use acyclovir (ZOVIRAX) 400 mg tablet Take 1 tablet by mouth twice daily. 05/01/2023 Prophylactic shingles ondansetron (ZOFRAN) 8 mg tablet Take 1 tablet by mouth every 8 hours as needed for nausea/vomiting. 10/26/2022 PRN Nausea clonazePAM (KLONOPIN) 0.5 mg tablet Take 0.5 mg by mouth once daily. 07/29/2023 Anxiety glimepiride (AMARYL) 4 mg tablet Take 2 capsules by mouth in AM & 1 capsule in PM. >5 years Type 2 amLODIPine (NORVASC) 5 mg tablet Take 5 mg by mouth once daily. 02/10/2021 Hypertension atorvastatin (LIPITOR) 10 mg tablet Take 10 mg by mouth once daily. 02/10/2021 Cholesterol losartan (COZAAR) 50 mg tablet Take 50 mg by mouth once daily. 02/10/2021 Hypertension Loperamide (Imodium Oral) Take 2 tablet by mouth as needed >5 years Diarrhea Sildenafil (Viagra) 50 mg tablet Take 50 mg by mouth as needed. >10 years ED Eliquis 5 mg tablet Take 1 tablet by mouth twice daily 03/23/2023 Preventative -blood thinner Melatonin 5 mg Take 1 tablet at bedtime 03/23/2023 Insomnia Revlimid 10 mg Take 1 capsule daily in the morning 08/24/2023 Stopped: 05/12/2024 MM treatment Revlimid 5 mg Take 1 capsule daily in the morning 05/12/2024 MM treatment Linzess 72 mcg Take 1 capsule for constipation symptoms once a day as needed for constipation 12/31/2023 Constipation Azithromycin (ZITHROMAX) 500 mg tablet Take 1 tablet by mouth daily 02/02/2024 Completed 02/05/2024 Antibiotic No current facility-administered medications for this visit. Medical History: PAST MEDICAL HISTORY Diagnosis Date Arthritis Treated with medication Chronic diarrhea Resolved and now constipation Diabetes mellitus (HCC) Treated with medication Essential hypertension Treated with medication Mixed hyperlipidemia Treated with medication PAST MEDICAL HISTORY Diagnosis Date Arthritis Treated with medication Chronic diarrhea Resolved Malignant melanoma (HCC) On back removed - precancerous and 06/2022 non cancerous Mixed hyperlipidemia Treated with medication Multiple myeloma not having achieved remission (HCC) Treated with medication Primary hypertension Treated with medication Pulmonary embolism (HCC) Treated with medication Right bundle branch block Treated with medication Type 2 diabetes mellitus, without long-term current use of insulin (HCC) Treated with medication Surgical History: PAST SURGICAL HISTORY Procedure Laterality Date REPAIR INCISIONAL HERNIA,REDUCIBLE Resolved 8th grade SKIN BX, 1 LESION 06/2022 non cancerous Baseline Toxicities per CTCAE v. 5: All predate therapy, are chronic conditions and will not be actively followed unless they worsen during the clinical trial. Hyperglycemia; Grade 1: Start Date: >5 years PRIOR TO STUDY Drugs to Treat: Glimepiride Action Required: None Outcome: Ongoing. (Chronic) Diarrhea; Grade 1: INTERMITTENT Start Date: >5 years PRIOR TO STUDY Drugs to Treat: Imodium Action Required: None Outcome: Ongoing. Anemia; Grade 1: Start Date: Intermittent PRIOR TO STUDY 07/24/2023 RESOLVED: 08/24/2023 but Grade 1 again 09/21/2023 Drugs to Treat: None. Action Required: None Outcome: Ongoing Aspartate aminotransferase decreased; Grade 1: Start Date: Intermittent PRIOR TO STUDY Drugs to Treat: None. Action Required: None Outcome: Ongoing Alanine aminotransferase decreased; Grade 1: Start Date: Intermittent PRIOR TO STUDY Drugs to Treat: None. Action Required: None Outcome: Ongoing Insomnia; Grade 1: Start Date: Intermittent PRIOR TO STUDY 07/21/2023 Drugs to Treat: None. Action Required: None Outcome: Ongoing. Weight Loss; Grade 1: 3.5 Percent Increase since - Intentional Start Date: Intentional Loss - PRIOR TO STUDY 07/21/2023 RESOLVED:11/16/2023 Drugs to Treat: None. Action Required: None Outcome: RESOLVED Hypophosphatemia:Start Date: PRIOR TO STUDY 07/24/2023 STOPPED:08/24/2023 Drugs to Treat: None. Action Required: None Outcome: RESOLVED Lymphocyte Count Decreased; Grade 1: Start Date: Intermittent PRIOR TO STUDY- Possibly related to Revlimid and Drugs to Treat: None. Action Required: None Outcome: Ongoing Toxicities per CTCAE v. 5: White Blood Cell Count Decreased; Grade 1: Related to Revlimid and cold RESOLVED:09/18/2024 Started again:10/17/2024 Drugs to Treat: None. Action Required: None Outcome: ONGOING Bone Pain: Grade 1; Bilateral Thigh: Unlikely related to Revlimid Start Date: PRIOR TO STUDY 08/24/2023 INCREASED 10/19/2023 Decreased to almost resolved: 02/08/2024 RESOLVED 11/14/2024 Drugs to Treat: None. Action Required: EMG and PT Outcome: RESOLVED Memory Impairment; Grade 1: Unrelated to Revlimid Start Date: 02/08/2024 witnessed by RN but reported as PRIOR TO STUDY recently by patients Drugs to Treat: NoneAction Required: None Outcome: Ongoing but improving Creatinine Increased; Grade 1: Start Date: 06/27/2024 Stopped:10/17/2024 Restarted:11/14/2024 Drugs to Treat: None. Action Required: None Outcome: Ongoing Hypokalemia; Grade 1:Start Date:10/17/2024 RESOLVED: 11/14/2024 Drugs to Treat: None. Action Required: None Outcome: RESOLVED Neutrophil Count Decreased; Grade 1: Possibly Related to Revlimid Start Date: 11/14/2024 Drugs to Treat: None. Action Required:None Outcome:Ongoing Patient turned in a 24 hour urine: Yes Chart sent the overseeing physician to review CTCAE toxicities. Patient knows to C 12/12/2024 for C18. Patient knows to call in the interim for any questions or concerns. Patient has contact information for Uma Marie and Dr. Mccain, along with the office number. All other abnormal lab values are deemed not clinically significant and therefor will not be graded. Treating provider has reviewed and agrees with Adverse Events above. Chart being routed to Connie Mccain D.O.. Patient meets all Criteria for Study Participation: Yes REID Bynum, RN Clinical Research Nurse [phone] documented in this encounter [facility] 11-14-2024 History of Present illness Narrative Oncologic problem(s): 1) IgG lambda multiple myeloma. HPI: The patient is a 74-year-old male with a past medical history significant for type 2 diabetes, high cholesterol, hypertension and right bundle branch block. Patient originally presented to the emergency room at [facility] on 04/19/2022 with new onset of confusion that day which had been worsening. Laboratory work-up significant for hypokalemia. CT of the brain was unremarkable. He was admitted. During hospitalization it was noted that he had been having diarrhea for 6 to 8 weeks. Stool studies were positive for Campylobacter, blood and lactoferrin. C. difficile was negative. CT of the abdomen pelvis on 04/21/2022 noted abnormal pericholecystic edema without gallstones. Renal cysts and colonic diverticulosis were noted. He was found to have elevation of sed rate to 39, CRP 134. His albumin was 2.3. IgA low at 37. He was discharged on azithromycin, potassium and magnesium supplement. He was seen in the outpatient setting for follow-up visit on 07/11/2022. He continued to have one episode of explosive diarrhea daily. This had been going on for about 8 months. CBC on 07/11 showed a white count of 6400. Differential was normal. Hemoglobin 14.9 g/dL. Platelet count 275,000. Chemistries significant for creatinine of 1.29 g/dL. Previously 1.13 g/dL on 04/27/2022. Calcium was 9.3 mg/dL. Total bilirubin, AST, ALT and alkaline phosphatase were normal. LDH was 181. C-reactive protein was less than 2.09. Total protein was 8.8 g/dL. Total IgG was 2462 mg/dL. IgA decreased to 28 mg/dL. IgM normal at 32 mg/dL. On protein electrophoresis, patient was found to have 2M spikes both IgG lambda by immunofixation. For spike was quantitated at 1.2 g/dL and the second was quantitated at 0.6 g/dL. Cytoplasmic and perinuclear ANCA both negative. Atypical p-ANCA negative. Patient described diarrhea as loose, eran stools sometimes explosive typically one bowel movement per day however. He had not observed any blood. Had a colonoscopy [address] Arteaga. His appetite was normal. He had not lost weight. Denied reflux and nausea. He did get abdominal bloating associated with the diarrhea. He denied musculoskeletal pain. He denied symptoms of sensory neuropathy. He sees an team supervisor once a year for dilated exam. He has not been told he has retinopathy. Recent removal of early melanoma back. Blue nevus right ankle--required WLE--scheduled. PMR--about 15 years ago. Patient underwent colonoscopy on 09/21/2022. Preparation of the colon was fair. -One 6 mm polyp at the ileocecal valve, removed with a hot snare. Resected and retrieved. -One 5 mm polyp in the ascending colon, removed with a hot snare. Resected and retrieved. -Congested mucosa in the descending colon, at the splenic flexure, in the ascending colon and in the cecum. Biopsied. -Diverticulosis in the recto-sigmoid colon, in the sigmoid colon and in the descending colon. -Stool in the rectum, in the sigmoid colon, in the descending colon and at the hepatic flexure. Fluid aspiration performed. -The examined portion of the ileum was normal. Biopsied. Pathology: A. Ileocecal valve polyp, biopsy: -Consistent with fibrolipomatous polyp. -See comment. B. Small bowel, biopsy: -No pathologic change. C. Cecum, biopsy: -Mild melanosis coli. D. Colon, random biopsy: -Mild melanosis coli. E. Ascending colon polyp, biopsy: -Fragments of tubular adenoma. B, C, D & E - No congophilic material identified. Congo red stain with matched control is negative. ADDENDUM C & D. No congophilic material is noted in these biopsies on light and polarized microscopy. Congo Red stain with matched control was used in the evaluation of this case. He was diagnosed with pancreatic insufficiency and was to start pancreatic enzyme replacement. Patient had a venous duplex ultrasound on 12/16/2022 for right leg pain. That study demonstrated no evidence of DVT in the right leg. He developed chest pain and increasing shortness of breath. Went to the ED on 01/16/2023. PE protocol chest CT demonstrated multiple bilateral pulmonary emboli involving the distal portion of both the right and left main pulmonary arteries as well as branches of the upper and lower lobe pulmonary arteries, more prominent on the right side. Platelet count was 67,000. Patient was admitted and placed on unfractionated heparin with bolus. The next morning platelet count was 62,000. He was rotated to apixaban and discharged. Echocardiogram performed 01/17/2023 demonstrated normal LV size. There was moderate concentric LVH. Left ventricular systolic function was normal with an estimated ejection fraction at 60%. There was stage I diastolic dysfunction. The pulmonary artery systolic pressure was 58 mmHg. The global longitudinal strain was -11.5% (abnormal). The global longitudinal strain was moderately abnormal. (Previous echocardiogram 04/20/2022 demonstrated right ventricular systolic pressure estimated at 22 mmHg. Diastolic function was indeterminate. Right ventricular strain was not determined). His chest pain has improved. He is still short of breath with heavier exertion and sometimes walking from room to room he finds himself breathing heavier. He has been taking apixaban 10 mg twice daily. No bleeding issues. Previous therapy: 1) RVd. Cycle #1 began 11/09/2022. 2) Zometa. 3) ASCT. Transplant Summary: BMT Information ASCR infused on 06/02/2023 Planned Proposed Protocols: IP BMT AUTO MELPHALAN 200 Planned Preparative Regimen Drug: Melphalan Planned Mobilization Agent: G-CSF, Plerixafor Planned Stem Cell Source: Peripheral blood stem cells BMT Transplant Details # of cells: 6.16 Saw neurology. 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 Scheduled for EMG 01/16. Seen in the ED on 01/27/2024 for an episode of confusion that was secondary to hypoglycemia. Evidently had influenza diagnosed prior to that. Was then admitted for neutropenic fever on 01/31/2024. ANC was 600 at time of admission. Influenza A positive. Stool positive for Campylobacter. Was treated with high-dose Tamiflu secondary to underlying immunocompromise. Discharged on azithromycin 500 mg daily for 14 days. Presents for ongoing oncologic management. Interim history: B/L hip injections 10/18. No leg pain now. PMH, medications and allergies personally reviewed by me today. Any changes documented in appropriate section. ROS: Constitutional: Denies episodes of fever and night sweats. Neuro: Denies HAMILTON, vertigo, dizziness and imbalance. HEENT: No recent change in voice, vision. Resp: Denies cough, wheeze and hemoptysis. Denies shortness of breath at rest. Denies MACE. CVS: Denies exertional chest pain, PND, orthopnea and LE edema. : Denies dysuria or gross hematuria. Endo: Denies hot flashes. Denies polyuria and polydipsia. Denies heat and cold intolerance. Musculoskeletal: See HPI. Derm: Denies rash. Denies jaundice and diffuse pruritis. Heme: Denies unusual bleeding and unexplained bruising. Psych: Normal mood. PHYSICAL EXAM: Vitals: Blood pressure 123/73, pulse 68, temperature 36.8 C (98.2 F), temperature source Temporal, weight 86.9 kg (191 lb 8 oz), SpO2 99%. Well-appearing and in no acute distress. EYES: Sclerae are anicteric bilaterally. LYMPHATIC: There is no palpable cervical or supraclavicular adenopathy. ABDOMEN: The abdomen is nondistended. Extremities: No swelling or edema. SKIN: No jaundice. LABS: ASSESSMENT/PLAN: (C90.00) Multiple myeloma not having achieved remission (HCC) (primary encounter diagnosis) Assessment: -The patient is a 73-year-old male has a past medical history significant for diabetes and chronic diarrhea that was characterized by one explosive watery stool daily (was diagnosed with pancreatic insufficiency). Was hospitalized 03/2022 when diarrhea significantly worsened and he was diagnosed with and treated for Campylobacter infection. During that evaluation, was found to have two IgG lambda monoclonal antibodies. He did not have hypercalcemia or anemia but had elevated serum creatinine (which may have been related to volume depletion when hospitalized for diarrhea and mental status change). 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 Low to intermediate risk disease (PCs 20%). -Imaging--no lytic lesions on whole body CT; Liver cyst and splenic nodule (6-12 month f/u MRI recommended). -Bone marrow negative for amyoid. -Colonic biopsies negative for amyloid. -Subsequent MRI of spine and pelvis revealed two T2 hyperintense foci in the pelvis, one in the left sacral rebeka and one in the right ischium. -FISH panel revealed (11;14) (q13;q32) (IGH/CCND1) translocation consistent with the presence of a plasma cell neoplasm associated with standard risk disease. -R-ISS stage I (serum beta microglobulin less than 3.5 mg/L and serum albumin greater than 3.5 g/dL; standard risk disease by FISH testing as outlined above and serum LDH less than upper limit of normal). -Some increase in serum MP, but not >0.5 and stable for about 3 months. -Reviewed results from September. May be seeing upward trend in MP. Discussed potential to change therapy to zoran/pom or try dose increase in leanlidomide. -Reviewed CBC. Counts allow continued therapy. -ECOG PS 1. Plan: -Continue lenalidomide at current dose. -Follow-up on finalized results of today's serum protein electrophoresis. -CBC, chemistries and serum protein electrophoresis and immunofixation as well as 24-hour urine collection for electrophoresis and immunofixation monthly per protocol. Supportive care: ID: Plan: -Continue acyclovir. Skeletal: -Only lytic lesions observed over those in the pelvic bones on MRI initially. Plan: -Zometa every 3 months. Chronic PE. Assessment: -B/L PE on ASA prophylaxis. -Previous evidence of pulmonary hypertension on echocardiogram. -Tolerating apixaban well. Plan: -Continue apixaban. Neuro: -No symptoms of neuropathy. -Recent leg pain appears to been related to bilateral degenerative disease. Portions of this documentation were copied and pasted from my previous office visit note dated 09/18/2024 in order to provide a cohesive continuity of the history. The note has been reviewed and edited and updated as necessary. I spent a total of 20 minutes on the date of the service which included preparing to see the patient, [id number] patient care, completing clinical documentation, counseling and educating the patient/family/caregiver, communicating with other HCPs (not separately reported), and communicating results to the patient/family/caregiver. Connie Mccain DO documented in this encounter [facility] 10-24-2024 Telephone encounter Note [employer] auth #[id number]. Please send electronically. Betsy Henriquez LPN [facility] 10-24-2024 Miscellaneous Notes [employer] auth #[id number]. Please send electronically. Betsy Henriquez LPN documented in this encounter [facility] 10-17-2024 History of Present illness Narrative HISTORY OF PRESENT ILLNESS: Oseas Joseph is a 74 year old male with myeloma not in remission, on revlimid, seen in Dr Rush kolb for toxicity check. He feels well, labs reviewed. CLINICAL IMPRESSION: Myeloma as above RECOMMENDATION/PLAN: 1. Continue revlimid Written and verbal health teaching given to patient, patient verbalizes understanding and agrees with treatment plan. PAST MEDICAL HISTORY Diagnosis Date Arthritis Chronic diarrhea Malignant melanoma (HCC) Mixed hyperlipidemia Multiple myeloma not having achieved remission (HCC) 10/26/2022 Other hyperlipidemia 04/17/2023 Primary hypertension 04/17/2023 Pulmonary embolism (HCC) Right bundle branch block 04/17/2023 Type 2 diabetes mellitus, without long-term current use of insulin (HCC) 04/17/2023 PAST SURGICAL HISTORY Procedure Laterality Date REPAIR INCISIONAL HERNIA,REDUCIBLE 8th grade SKIN BX, 1 LESION 06/2022 FAMILY HISTORY Problem Relation Age of Onset Diabetes Mother Hypertension Mother Renal Disease Mother Hypertension Father Diabetes Father Hypertension Sister Diabetes Sister No Known Problems Sister No Known Problems Sister No Known Problems Sister No Known Problems Sister Heart Sister Hypertension Brother Diabetes Brother Hyperlipidemia Brother Heart Brother Hypertension Maternal Grandmother Diabetes Maternal Grandmother Colon Cancer Paternal Grandmother Hypertension Paternal Grandfather Social History Tobacco Use Smoking status: Never Smokeless tobacco: Never Vaping Use Vaping status: Never Used Substance Use Topics Alcohol use: Not Currently Comment: social Drug use: Never ALLERGIES: ALLERGIES No Known Allergies CURRENT OUTPATIENT MEDICATIONS: acetaminophen (TYLENOL EXTRA STRENGTH) 500 mg tablet Take 1,000 mg by mouth every 8 hours as needed. tiZANidine (ZANAFLEX) 2 mg tablet Take 1 tablet by mouth every 6 hours as needed. cyanocobalamin (VITAMIN B-12) 1,000 mcg tab Take 2,000 mcg by mouth once daily. folic acid 800 mcg tablet Take 400 mcg by mouth once daily. acyclovir (ZOVIRAX) 400 mg tablet Take 1 tablet by mouth two times a day. sildenafil (VIAGRA) 50 mg tablet Take 50 mg by mouth as needed. glimepiride (AMARYL) 2 mg tablet Take 1 tablet by mouth daily with breakfast. Take 2 mg twice a day. May increase to 4mg BID if your PCP requests so. (Patient taking differently: Take 4 mg by mouth two times a day with meals. Take 4 mg twice a day. May increase to 4mg BID if your PCP requests so.) ondansetron (ZOFRAN) 8 mg tablet Take 1 tablet by mouth every 8 hours as needed for nausea/vomiting. clonazePAM (KLONOPIN) 0.5 mg tablet Take 0.5 mg by mouth once daily. amLODIPine (NORVASC) 5 mg tablet Take 10 mg by mouth once daily. atorvastatin (LIPITOR) 10 mg tablet Take 10 mg by mouth once daily. losartan (COZAAR) 50 mg tablet Take 50 mg by mouth once daily. REVLIMID 5 mg capsule TAKE 1 CAPSULE BY MOUTH DAILY FOR 28 DAYS rivaroxaban (XARELTO) 20 mg tablet Take 1 tablet by mouth daily with dinner. REVIEW OF SYSTEMS: GENERAL: No fever, night sweats, weight loss or malaise. All other reviewed and negative other than HPI. PHYSICAL EXAMINATION: VITAL SIGNS: BP 94/61 Pulse 66 Temp (Src) 97.9 (Temporal) Wt 193 lb 8 oz (87.8kg) SpO2 99% GENERAL APPEARANCE: Well appearing, in no acute distress, alert and oriented x3, well-hydrated, well nourished. Electronically Signed: Farhan East MD October 17, 2024 documented in this encounter [facility] 10-17-2024 History of Present illness Narrative IRB # [id number], [facility]# [id number] study entitled Phase III Study of Daratumumab/rHuPH20 (NSC- [id number]) + Lenalidomide or Lenalidomide as Post-Autologous Stem Cell Transplant Maintenance Therapy in Patients with Multiple Myeloma (MM) Using Minimal Residual Disease to Direct Therapy Duration (DRAMMATIC Study). Registration Information: Informed Consent Signed 01/03/2023 Registered Step 1 01/06/2023 Informed Consent Signed Step 2 07/22/2023 Randomization Date: 08/18/2023 Addendum 11/16/2023 Treatment Arm: TAC- 1 Lenalidomide Study ID [id number] Consent to optional samples Yes Study Status Active Patient was here for Cycle 16 to see Farhan East MD while Connie Mccain D.O. is out. All of the patients and his 's questions were answered at this time in regards to continued thigh and back issues. Patient doing much better overall per family and patient. Treatment Plan: Treatment Previous Cycle Cycle Current Start Date Frequency End date Lenalidomide Cycle 1 Day 1 08/24/2023 Dose Reduced 05/12/2024 5mg Cycle 15 09/19/2024-10/16/2024 = 100% Cycle 16 10/18/2024-11/13/2024 10/19/2023 Daily, Cycle every 28 days Clinical Trial Specific Testing Test Dates Completed Due Date Bone Marrow Biopsy CTD 07/24/2023 Baseline Step 2 [x] 07/18/2024 12 months post Step 2 [x] 07/24/2025 24 months post Step 2 [] 07/24/2026 36 months post Step 2 [] 07/24/2027 48 months post Step 2 [] QOLs PRO-CTCAE 08/17/2023 (Baseline) [x] 08/24/2023 (Cycle 1) [x] 09/21/2023 (Cycle 2) [x] 10/19/2023 (Cycle 3) [x] 11/16/2023 (Cycle 4) [x] 12/14/2023 (Cycle 5) [x] 01/11/2024 (Cycle 6) [x] 02/08/2024 (Cycle 7) [x] 03/07/2024 (Cycle 8) [x] 04/04/2024 (Cycle 9) [x] 05/02/2024 (Cycle 10) [x] 05/29/2024 (Cycle 11) [x] 06/27/2024 (Cycle 12) [x] 07/25/2024 (Cycle 13) and annual PROMIS-29 and Intolerance [x] 08/22/2024 (Cycle 14) [x] 09/18/2024 (Cycle 15) [x] 10/17/2024 (Cycle 16) [x] 11/14/2024 (Cycle 17) [] Day 1 of every cycle Baseline Weight (08/24/2023 date) 80.7 kg Current Weight 88 kg (9% +) Creatinine Clearance 60.3 ml/min ECOG per ECOG- 1 Bone Marrow - Plasma Cell % Free Light Chains M Protein Date Size (mm) Date [place] Lambda * IGG Date Serum Urine Diagnosis 08/24/2022 20% Diagnosis 10/26/2022 11.7 43.5 Diagnosis 10/26/2022 1.12 M protein present Baseline 07/30/2023 Less than 5%* Baseline 08/07/2023 4.7 2.5 Enrollment 07/31/2023 Cycle 1 0.22 0.00 08/24/2023 Cycle 1 4.1* 2.4* 08/24/2023 Cycle 1 0.28 0.00 09/21/2023 Cycle 2 11.7 8.7 09/21/2023 Cycle 2 0.17 0.01 10/19/2023 Cycle 3 15.5 10.5 10/19/2023 Cycle 3 0.16 0.01 11/16/2023 Cycle 4 17.4 21.4 11/16/2023 Cycle 4 0.20 0.00 12/14/2023 Cycle 5 19.4 23.1 12/14/2023 Cycle 5 0.00* 0.00 01/11/2024 Cycle 6 25.8 19.4 01/11/2024 Cycle 6 0.15 0.00 02/08/2024 Cycle 7 24.2 20.4 02/08/2024 Cycle 7 0.00* 0.00 03/07/2024 Cycle 8 22.0 15.3 03/07/2024 Cycle 8 0.23 0.0 04/04/2024 Cycle 9 22.4 17.5 04/04/2024 Cycle 9 0.24 0.00 05/02/2024 Cycle 10 23.2 16.5 05/02/2024 Cycle 10 0.00* 0.00 05/29/2024 Cycle 11 23.7 15.3 05/29/2024 Cycle 11 0.00* 0.00 06/27/2024 Cycle 12 27.7 19.3 06/27/2024 Cycle 12 0.25 0.00 07/25/2024 Cycle 13 37.8 21.5 07/25/2024 Cycle 13 0.19 0.00 08/22/2024 Cycle 14 25.2 15.7 08/22/2024 Cycle 14 0.25 0.00 09/18/2024 Cycle 15 20.5 13.2 09/18/2024 Cycle 15 0.23 0.00 10/17/2024 Cycle 16 22.8 15.2 10/17/2024 Cycle 16 0.33 0.00 Lowest/Jacque = * Drug Accountability/Education - Completed on 10/17/2024. Patient given Cycle 16 diary. Patient did return cycle 15 - reviewed edits with patient. Use of the study medication diary and dosing instructions were reviewed with the patient. Patient verbalizes understanding of dosing of Revlimid: Capsules should be taken whole, with water, once daily (patient takes at HS). If a dose is missed, and it has been less than 12 hours since the preceding dose, the patient should take lenalidomide as soon as the patient remembers. If it has been more than 12 hours, the patient should skip the missed dose. Patient took 28/28 pills for the cycle - determining 100% compliance Patient receives drug from a private pharmacy. Lenalidomide Education and Counseling completed. Patient counseled on potential exposure to lenalidomide by [facility], engage in abstinence or use a condom when engaging in sexual contact with [facility], notify study doctor if female partner becomes , never share drug with anyone else, not to donate blood, semen, or sperm while taking drug and for 28 days after. Concomitant medications reviewed per protocol: Yes Patient reported changes to medication list: No changes since last visit. Current medications: Current use of anticoagulants: YES (see medications below if applicable) Anticoagulants: Eliquis 5 mg Current use of herbal preparations or medications: No Prophylactic shingles medication: Acyclovir 400 mg Current Outpatient Medications Medication Sig Start/Stop Use acyclovir (ZOVIRAX) 400 mg tablet Take 1 tablet by mouth twice daily. 05/01/2023 Prophylactic shingles ondansetron (ZOFRAN) 8 mg tablet Take 1 tablet by mouth every 8 hours as needed for nausea/vomiting. 10/26/2022 PRN Nausea clonazePAM (KLONOPIN) 0.5 mg tablet Take 0.5 mg by mouth once daily. 07/29/2023 Anxiety glimepiride (AMARYL) 4 mg tablet Take 2 capsules by mouth in AM & 1 capsule in PM. >5 years Type 2 amLODIPine (NORVASC) 5 mg tablet Take 5 mg by mouth once daily. 02/10/2021 Hypertension atorvastatin (LIPITOR) 10 mg tablet Take 10 mg by mouth once daily. 02/10/2021 Cholesterol losartan (COZAAR) 50 mg tablet Take 50 mg by mouth once daily. 02/10/2021 Hypertension Loperamide (Imodium Oral) Take 2 tablet by mouth as needed >5 years Diarrhea Sildenafil (Viagra) 50 mg tablet Take 50 mg by mouth as needed. >10 years ED Eliquis 5 mg tablet Take 1 tablet by mouth twice daily 03/23/2023 Preventative -blood thinner Melatonin 5 mg Take 1 tablet at bedtime 03/23/2023 Insomnia Revlimid 10 mg Take 1 capsule daily in the morning 08/24/2023 Stopped: 05/12/2024 MM treatment Revlimid 5 mg Take 1 capsule daily in the morning 05/12/2024 MM treatment Linzess 72 mcg Take 1 capsule for constipation symptoms once a day as needed for constipation 12/31/2023 Constipation Azithromycin (ZITHROMAX) 500 mg tablet Take 1 tablet by mouth daily 02/02/2024 Completed 02/05/2024 Antibiotic No current facility-administered medications for this visit. Medical History: PAST MEDICAL HISTORY Diagnosis Date Arthritis Treated with medication Chronic diarrhea Resolved and now constipation Diabetes mellitus (HCC) Treated with medication Essential hypertension Treated with medication Mixed hyperlipidemia Treated with medication PAST MEDICAL HISTORY Diagnosis Date Arthritis Treated with medication Chronic diarrhea Resolved Malignant melanoma (HCC) On back removed - precancerous and 06/2022 non cancerous Mixed hyperlipidemia Treated with medication Multiple myeloma not having achieved remission (HCC) Treated with medication Primary hypertension Treated with medication Pulmonary embolism (HCC) Treated with medication Right bundle branch block Treated with medication Type 2 diabetes mellitus, without long-term current use of insulin (HCC) Treated with medication Surgical History: PAST SURGICAL HISTORY Procedure Laterality Date REPAIR INCISIONAL HERNIA,REDUCIBLE Resolved 8th grade SKIN BX, 1 LESION 06/2022 non cancerous Baseline Toxicities per [facility]CAE v. 5: All predate therapy, are chronic conditions and will not be actively followed unless they worsen during the clinical trial. Hyperglycemia; Grade 1: Start Date: >5 years PRIOR TO STUDY Drugs to Treat: Glimepiride Action Required: None Outcome: Ongoing. (Chronic) Diarrhea; Grade 1: INTERMITTENT Start Date: >5 years PRIOR TO STUDY Drugs to Treat: Imodium Action Required: None Outcome: Ongoing. Anemia; Grade 1: Start Date: Intermittent PRIOR TO STUDY 07/24/2023 RESOLVED: 08/24/2023 but Grade 1 again 09/21/2023 Drugs to Treat: None. Action Required: None Outcome: Ongoing Aspartate aminotransferase decreased; Grade 1: Start Date: Intermittent PRIOR TO STUDY Drugs to Treat: None. Action Required: None Outcome: Ongoing Alanine aminotransferase decreased; Grade 1: Start Date: Intermittent PRIOR TO STUDY Drugs to Treat: None. Action Required: None Outcome: Ongoing Insomnia; Grade 1: Start Date: Intermittent PRIOR TO STUDY 07/21/2023 Drugs to Treat: None. Action Required: None Outcome: Ongoing. Weight Loss; Grade 1: 3.5 Percent Increase since - Intentional Start Date: Intentional Loss - PRIOR TO STUDY 07/21/2023 RESOLVED:11/16/2023 Drugs to Treat: None. Action Required: None Outcome: RESOLVED Hypophosphatemia:Start Date: PRIOR TO STUDY 07/24/2023 STOPPED:08/24/2023 Drugs to Treat: None. Action Required: None Outcome: RESOLVED Lymphocyte Count Decreased; Grade 1: Start Date: Intermittent PRIOR TO STUDY- Possibly related to Revlimid and Drugs to Treat: None. Action Required: None Outcome: Ongoing Toxicities per [facility]CAE v. 5: White Blood Cell Count Decreased; Grade 1: Related to Revlimid and cold RESOLVED:09/18/2024 Started again:10/17/2024 Drugs to Treat: None. Action Required: None Outcome: ONGOING Bone Pain: Grade 1; Bilateral Thigh: Unlikely related to Revlimid Start Date: PRIOR TO STUDY 08/24/2023 INCREASED 10/19/2023 Decreased to almost resolved: 02/08/2024 Drugs to Treat: None. Action Required: EMG and PT Outcome: Continues Memory Impairment; Grade 1: Unrelated to Revlimid Start Date: 02/08/2024 witnessed by RN but reported as PRIOR TO STUDY recently by patients Drugs to Treat: NoneAction Required: None Outcome: Ongoing but improving Creatinine Increased; Grade 1: Start Date: 06/27/2024 Stopped:10/17/2024 Drugs to Treat: None. Action Required: None Outcome: RESOLVED Hypokalemia; Grade 1:Start Date:10/17/2024 Drugs to Treat: None. Action Required: None Outcome: Ongoing Patient turned in a 24 hour urine: Yes Chart sent the overseeing physician to review CTCAE toxicities. Patient knows to RTC 11/14/2023 for C1. Patient knows to call in the interim for any questions or concerns. Patient has contact information for Uma Gill Research Nurse and Dr. Mccain, along with the office number. All other abnormal lab values are deemed not clinically significant and therefor will not be graded. Treating provider has reviewed and agrees with Adverse Events above. Chart being routed to Connie Mccain D.O.. Patient meets all Criteria for Study Participation: Yes REID Bynum, RN Clinical Research Nurse [phone] documented in this encounter [facility] 10-08-2024 History of Present illness Narrative NEUROSURGERY FOLLOW UP OFFICE NOTE Geoff Young MD Date of visit: October 08, 2024 Patient Name: Mr.Jeffrey Sania Joseph Date of : 1950 Current Age: [age] year old Sex: male MRN/E# [id number] Last Office Visit: Visit date not found CLINICAL SUMMARY: * IgG lambda multiple myeloma dx in 2021, - s/p autologous stem cell transplantation on 06/20/2023 * Recent removal of early melanoma back * Left vestibular schwannoma 2 mm, MRI 03/29/2024 - sensorineural hearing loss, left worse than right SUBJECTIVE: History of Present Illness. Oseas Joseph is a 74 year old right-handed male presenting with spouse. He has a past medical history of Arthritis, Multiple Myeloma, diverticulitis, HTN, PE, HLD and DM2. The patient has been following with Dr. Connie Mccain for known multiple myeloma with diagnosis in 2021. More recently at office visit in January 2024, patient expressed memory issues and concern for early dementia. MRI brain recommended and obtained 03/22/2024 that showed no evidence of parenchymal mass lesion, a 2 mm focus of enhancement in the left IAC was nonspecific, and could be a small schwannoma. Patient then underwent MRI skull base recommended by radiology that confirmed presence of a 2 mm focus of enhancement in the lateral third of the left IAC. Patient subsequently referred to neurosurgery. He was seen in consult on 04/09/2024 where he and his family stated around the time of multiple myeloma diagnosis he had developed issues with memory. His daughter reported his short-term memory had progressively worsened. He noted that he also had some hearing loss on the left. His MRI brain and skull base demonstrated a small 2 mm area of enhancement at the fundus of the IAC most compatible with a small vestibular schwannoma. We discussed observation versus treatment with gamma knife. Recommended continued observation with a repeat MRI brain in 6 months, prompting his visit today. Today he follows up with MRI, he reports no changes in symptoms. He still has some difficulty with short term memory. He reports that he has been having some bilateral leg pain. Right leg > left, but fairly equal. He saw orthopedics and he is supposed to be getting hip injections. 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 PAST MEDICAL HISTORY Diagnosis Date Arthritis Chronic diarrhea Malignant melanoma (HCC) Mixed hyperlipidemia Multiple myeloma not having achieved remission (HCC) 10/26/2022 Other hyperlipidemia 04/17/2023 Primary hypertension 04/17/2023 Pulmonary embolism (HCC) Right bundle branch block 04/17/2023 Type 2 diabetes mellitus, without long-term current use of insulin ([facility]) 04/17/2023 PAST SURGICAL HISTORY Procedure Laterality Date REPAIR INCISIONAL HERNIA,REDUCIBLE 8th grade SKIN BX, 1 LESION 06/2022 FAMILY HISTORY Problem Relation Age of Onset Diabetes Mother Hypertension Mother Renal Disease Mother Hypertension Father Diabetes Father Hypertension Sister Diabetes Sister No Known Problems Sister No Known Problems Sister No Known Problems Sister No Known Problems Sister Heart Sister Hypertension Brother Diabetes Brother Hyperlipidemia Brother Heart Brother Hypertension Maternal Grandmother Diabetes Maternal Grandmother Colon Cancer Paternal Grandmother Hypertension Paternal Grandfather ALLERGIES No Known Allergies Current Outpatient Medications Medication Sig Dispense Refill XARELTO 20 mg tablet TAKE 1 TABLET BY MOUTH ONCE DAILY WITH DINNER 30 tablet 0 REVLIMID 5 mg capsule TAKE 1 CAPSULE BY MOUTH DAILY FOR 28 DAYS 28 capsule 0 tiZANidine (ZANAFLEX) 2 mg tablet Take 1 tablet by mouth every 6 hours as needed. 45 tablet 0 cyanocobalamin (VITAMIN B-12) 1,000 mcg tab Take 2,000 mcg by mouth once daily. folic acid 800 mcg tablet Take 400 mcg by mouth once daily. acyclovir (ZOVIRAX) 400 mg tablet Take 1 tablet by mouth two times a day. 180 tablet 3 sildenafil (VIAGRA) 50 mg tablet Take 50 mg by mouth as needed. glimepiride (AMARYL) 2 mg tablet Take 1 tablet by mouth daily with breakfast. Take 2 mg twice a day. May increase to 4mg BID if your PCP requests so. (Patient taking differently: Take 4 mg by mouth two times a day with meals. Take 4 mg twice a day. May increase to 4mg BID if your PCP requests so.) ondansetron (ZOFRAN) 8 mg tablet Take 1 tablet by mouth every 8 hours as needed for nausea/vomiting. 30 tablet 2 clonazePAM (KLONOPIN) 0.5 mg tablet Take 0.5 mg by mouth once daily. amLODIPine (NORVASC) 5 mg tablet Take 10 mg by mouth once daily. atorvastatin (LIPITOR) 10 mg tablet Take 10 mg by mouth once daily. losartan (COZAAR) 50 mg tablet Take 50 mg by mouth once daily. No current facility-administered medications for this visit. OBJECTIVE: BP 113/66 Pulse 62 Resp 16 Ht 6' 1.2 (1.86m) Wt 189 lb 6 oz (85.9kg) SpO2 98% BMI 24.86 kg/(m^2). PHYSICAL EXAM A&Ox3, speech fluent MIRNA 3 mm EOM are full Face symmetric Decreased hearing on left No pronator drift 5/5 in UEs and LEs Data Review IMAGING STUDIES: MRI brain obtained on 10/03/2024 demonstrates: IMPRESSION: Mild interval increase in size of the small left intracanalicular vestibular schwannoma since 03/29/2024. Otherwise stable appearance of the brain. Dictated by : CONNIE OSWALD MD Images independently reviewed The following portions of the patient's history were reviewed, confirmed, updated as necessary: allergies, current medications, past family history, past medical history, past social history, past surgical history, problem list, HPI and ROS obtained by others. The clinical and radiographic findings as well as the risks, benefits, and alternatives of treatment have been reviewed in detail with the patient. ASSESSMENT/PLAN 1. Vestibular schwannoma (HCC) Reviewed MRI brain - very small left sided intracanalicular vestibular schwannoma, appears slightly brighter on latest exam. Different appearance may be due to different scanner and different contrast agent (Elucirem). - reviewed images in detail with the patient. The difference in size is too small to justify treating the schwannoma. Recommend continued f/up with with repeat MRI brain in 6 mo - f/up in office to review results - currently has more issues with bilateral leg pain and is being worked up for possible hip osteoarthritis - MRI BRAIN WO/W IVCON; Future Encouraged patient to contact our office should there be any further questions, concerns, or change in symptoms. Patient expressed understanding and is in agreement with plan. Some elements may have been copied from a previous note and have been updated/reviewed where appropriate. All portions reflect current medical decision making from today. Geoff Young MD I spent a total of 30 minutes on the date of the service which included preparing to see the patient, [id number] patient care, completing clinical documentation, obtaining and/or reviewing separately obtained history, performing a medically appropriate examination, counseling and educating the patient/family/caregiver, ordering medications, tests, or procedures, independently interpreting results (not separately reported), and communicating results to the patient/family/caregiver. documented in this encounter [facility] 10-08-2024 Note HNO ID: [id number] Author: GEOFF YOUNG MD Service: ? Author Type: Physician Type: Progress Notes Filed: 10/08/2024 11:11 Note Text: NEUROSURGERY FOLLOW UP OFFICE NOTE Geoff Young MD Date of visit: October 08, 2024 Patient Name: Mr.Jeffrey Sania Joseph Date of : 1950 Current Age: [age] year old Sex: male MRN/E# [id number] Last Office Visit: Visit date not found CLINICAL SUMMARY: * IgG lambda multiple myeloma dx in 2021, - s/p autologous stem cell transplantation on 06/20/2023 * Recent removal of early melanoma back * Left vestibular schwannoma 2 mm, MRI 03/29/2024 - sensorineural hearing loss, left worse than right SUBJECTIVE: History of Present Illness. Oseas Joseph is a 74 year old right-handed male presenting with spouse. He has a past medical history of Arthritis, Multiple Myeloma, diverticulitis, HTN, PE, HLD and DM2. The patient has been following with Dr. Connie Mccain for known multiple myeloma with diagnosis in 2021. More recently at office visit in January 2024, patient expressed memory issues and concern for early dementia. MRI brain recommended and obtained 03/22/2024 that showed no evidence of parenchymal mass lesion, a 2 mm focus of enhancement in the left IAC was nonspecific, and could be a small schwannoma. Patient then underwent MRI skull base recommended by radiology that confirmed presence of a 2 mm focus of enhancement in the lateral third of the left IAC. Patient subsequently referred to neurosurgery. He was seen in consult on 04/09/2024 where he and his family stated around the time of multiple myeloma diagnosis he had developed issues with memory. His daughter reported his short-term memory had progressively worsened. He noted that he also had some hearing loss on the left. His MRI brain and skull base demonstrated a small 2 mm area of enhancement at the fundus of the IAC most compatible with a small vestibular schwannoma. We discussed observation versus treatment with gamma knife. Recommended continued observation with a repeat MRI brain in 6 months, prompting his visit today. Today he follows up with MRI, he reports no changes in symptoms. He still has some difficulty with short term memory. He reports that he has been having some bilateral leg pain. Right leg > left, but fairly equal. He saw orthopedics and he is supposed to be getting hip injections. 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 PAST MEDICAL HISTORY Diagnosis Date Arthritis Chronic diarrhea Malignant melanoma (HCC) Mixed hyperlipidemia Multiple myeloma not having achieved remission (HCC) 10/26/2022 Other hyperlipidemia 04/17/2023 Primary hypertension 04/17/2023 Pulmonary embolism (HCC) Right bundle branch block 04/17/2023 Type 2 diabetes mellitus, without long-term current use of insulin (HCC) 04/17/2023 PAST SURGICAL HISTORY Procedure Laterality Date REPAIR INCISIONAL HERNIA,REDUCIBLE 8th grade SKIN BX, 1 LESION 06/2022 FAMILY HISTORY Problem Relation Age of Onset Diabetes Mother Hypertension Mother Renal Disease Mother Hypertension Father Diabetes Father Hypertension Sister Diabetes Sister No Known Problems Sister No Known Problems Sister No Known Problems Sister No Known Problems Sister Heart Sister Hypertension Brother Diabetes Brother Hyperlipidemia Brother Heart Brother Hypertension Maternal Grandmother Diabetes Maternal Grandmother Colon Cancer Paternal Grandmother Hypertension Paternal Grandfather ALLERGIES No Known Allergies Current Outpatient Medications Medication Sig Dispense Refill XARELTO 20 mg tablet TAKE 1 TABLET BY MOUTH ONCE DAILY WITH DINNER 30 tablet 0 REVLIMID 5 mg capsule TAKE 1 CAPSULE BY MOUTH DAILY FOR 28 DAYS 28 capsule 0 tiZANidine (ZANAFLEX) 2 mg tablet Take 1 tablet by mouth every 6 hours as needed. 45 tablet 0 cyanocobalamin (VITAMIN B-12) 1,000 mcg tab Take 2,000 mcg by mouth once daily. folic acid 800 mcg tablet Take 400 mcg by mouth once daily. acyclovir (ZOVIRAX) 400 mg tablet Take 1 tablet by mouth two times a day. 180 tablet 3 sildenafil (VIAGRA) 50 mg tablet Take 50 mg by mouth as needed. glimepiride (AMARYL) 2 mg tablet Take 1 tablet by mouth daily with breakfast. Take 2 mg twice a day. May increase to 4mg BID if your PCP requests so. (Patient taking differently: Take 4 mg by mouth two times a day with meals. Take 4 mg twice a day. May increase to 4mg BID if your PCP requests so.) ondansetron (ZOFRAN) 8 mg tablet Take 1 tablet by mouth every 8 hours as needed for nausea/vomiting. 30 tablet 2 clonazePAM (KLONOPIN) 0.5 mg tablet Take 0.5 mg by mouth once daily. amLODIPine (NORVASC) 5 mg tablet Take 10 mg by mouth once daily. ator (more content not included)... [facility] 10-04-2024 Telephone encounter Note Spoke with patient and forwarded to Radiology in [place] for scheduling. Patient was advised [place] [facility] [place] do not offer this [facility] 10-04-2024 Miscellaneous Notes Spoke with patient and forwarded to Radiology in [place] for scheduling. Patient was advised [place] and [place] do not offer this [facility] Left detailed message for Louise Advised orders have been placed However, if they would like to do in [place] or [place], to call them and ask If yes, we can fax orders to them Bilateral hip injection orders placed Cortney Brunner PA-C Spoke with Dr Holland Injection will need to be done in radiology Please place order Spoke with Louise and relayed message. Patient verbalized understanding. EMG cancelled Is the injection done in office or will this be in radiology? ----- Message from Ivet Colin DO sent at 10/03/2024 10:09 AM EST ----- Please contact patient and let them know they dont need emg as had one done back in december. I discussed with dr mccain and he is okay with patient getting a hip injection so will proceed with that at this time to help with pain. Ivet Colin DO documented in this encounter [facility] 10-04-2024 Telephone encounter Note Left detailed message for Louise Advised orders have been placed However, if they would like to do in [place] or [place], to call them and ask If yes, we can fax orders to them [facility] 10-04-2024 Telephone encounter Note Bilateral hip injection orders placed Cortney Brunner PA-C [facility] 10-04-2024 Telephone encounter Note Spoke with Dr Holland Injection will need to be done in radiology Please place order [facility] 10-03-2024 Telephone encounter Note Spoke with Louise and relayed message. Patient verbalized understanding. EMG cancelled Is the injection done in office or will this be in radiology? [facility] 10-03-2024 Telephone encounter Note ----- Message from Ivet Colin DO sent at 10/03/2024 10:09 AM [facility] ----- Please contact patient and let them know they dont need emg as had one done back in december. I discussed with dr mccain and he is okay with patient getting a hip injection so will proceed with that at this time to help with pain. Ivet Colin DO [facility] 10-03-2024 History of Present illness Narrative Radiology Service Progress Note DATE OF SERVICE: October 03, 2024 TIME: 9:41 AM PATIENT IDENTITY VERIFICATION COMPLETED USING TWO (2) STANDARD IDENTIFIERS: Name and Date of confirmed by patient verbally. FALL SCREENING: Has the patient had 2 falls in the last year or 1 fall with injury or currently using an Ambulatory Assistive Device (Walker, Cane, Wheelchair, Crutches, etc.)? No PATIENT GENDER DATA: Male PATIENT RELEVANT IMPLANT DATA REVIEWED: Yes PATIENT PRESENTS WITH AN IMPLANTABLE OR ATTACHED IMPLEMENTATION TECHNICIAN: No ALLERGIES: Reviewed and unchanged CONTRAST ALLERGY: NO. EXAM: MRI - CONTRAST TYPE: GROUP II PERIPHERAL IV DATA: Ambulatory: A peripheral IV was started in the Left antecubital site with a Angio cath: 22 gauge. RADIOLOGY DEPARTMENT: MR; Exam(s) Completed: Head: Routine Brain SIGNATURE: RT Crescencio(R) PATIENT NAME: Oseas Joseph DATE: October 03, 2024 TIME: 9:41 AM documented in this encounter [facility] 10-02-2024 Note HNO ID: [id number] Author: CHARLA OCHOA Tech Service: Radiology Author Type: Substance Abuse Technician Type: Progress Notes Filed: 10/02/2024 14:26 Note Text: Radiology Service Progress Note PATIENT NAME: Oseas Joseph DATE OF SERVICE: October 02, 2024 TIME: 2:26 PM PATIENT IDENTITY VERIFICATION COMPLETED USING TWO (2) IDENTIFIERS: Name and Date of confirmed by patient verbally. FALL SCREENING: Has the patient had 2 falls in the last year or 1 fall with injury or currently using an Ambulatory Assistive Device (Walker, Cane, Wheelchair, Crutches, etc.)? No PATIENT GENDER DATA: Male PATIENT RELEVANT IMPLANT DATA REVIEWED: Not Applicable PATIENT PRESENTS WITH AN IMPLANTABLE OR ATTACHED IMPLEMENTATION TECHNICIAN: No RADIOLOGY DEPARTMENT: General X-ray: Exam(s) Completed: Pelvis X-Ray: Pelvis with Hip Bilateral and Wt. Bearing PERIPHERAL IV DATA: Not applicable SIGNED BY: Rafat Rojas October 02, 2024 2:26 PM [facility] 10-02-2024 History of Present illness Narrative Images from the original note were not included. Follow Up Visit Chief Complaint Oseas Joseph is a 74 year old male who presents today for follow up office visit. Patient presents with: Right Knee - Established Patient, Knee Pain Left Knee - Established Patient, Knee Pain History of Present Illness PAIN EVALUATION 10/02/2024 1321 Pain Level: 7 Pain Location: -- bilateral knees Description: Throbbing;Dull;Sore;Sharp Duration Units: Years Frequency: Intermittent HPI: Oseas Joseph is a 74 year old male for a follow up visit bilateral knee pain. Patient is here for ongoing, general leg pains. He is a chemo patient and states that he has been having issues with his legs recently. Is here to figure out where the pain is coming from Pain history is noted as above. Right is worse than left. Denies calf pain, numbness, tingling, fever, chills or other constitutional symptoms. Low back pain and was on steroids which helped back but still states leg pain Has difficulty and stiffness getting out of chair. Discussed stiffness and contributing medical issues. Is there any overall improvement in your condition? No Any new injury, since being seen last: No REVIEW OF SYMPTOMS: Patient did not have, and does not currently have, any weight loss, malaise, fever, chills, headache, chest pain, chest pressure, palpitations, cough, shortness of breath, orthopnea, paroxsymal nocturnal dyspnea, nausea, vomiting, diarrhea, constipation, melena, hematochezia, urinary difficulties, prolonged bleeding, easily bruising, heat or cold intolerance, new onset joint pain or swelling, new onset extremity weakness or numbness, new onset auditory or visual disturbances, lightheadedness, dizziness, partial loss of consciousness or full loss of consciousness. Current Outpatient Medications Medication Sig XARELTO 20 mg tablet TAKE 1 TABLET BY MOUTH ONCE DAILY WITH DINNER REVLIMID 5 mg capsule TAKE 1 CAPSULE BY MOUTH DAILY FOR 28 DAYS tiZANidine (ZANAFLEX) 2 mg tablet Take 1 tablet by mouth every 6 hours as needed. cyanocobalamin (VITAMIN B-12) 1,000 mcg tab Take 2,000 mcg by mouth once daily. folic acid 800 mcg tablet Take 400 mcg by mouth once daily. sildenafil (VIAGRA) 50 mg tablet Take 50 mg by mouth as needed. glimepiride (AMARYL) 2 mg tablet Take 1 tablet by mouth daily with breakfast. Take 2 mg twice a day. May increase to 4mg BID if your PCP requests so. (Patient taking differently: Take 4 mg by mouth two times a day with meals. Take 4 mg twice a day. May increase to 4mg BID if your PCP requests so.) ondansetron (ZOFRAN) 8 mg tablet Take 1 tablet by mouth every 8 hours as needed for nausea/vomiting. clonazePAM (KLONOPIN) 0.5 mg tablet Take 0.5 mg by mouth once daily. amLODIPine (NORVASC) 5 mg tablet Take 10 mg by mouth once daily. atorvastatin (LIPITOR) 10 mg tablet Take 10 mg by mouth once daily. losartan (COZAAR) 50 mg tablet Take 50 mg by mouth once daily. acetaminophen (TYLENOL EXTRA STRENGTH) 500 mg tablet Take 1,000 mg by mouth every 8 hours as needed. acyclovir (ZOVIRAX) 400 mg tablet Take 1 tablet by mouth two times a day. No current facility-administered medications for this visit. Physical Exam Vitals: There were no vitals taken for this visit. Psych: Pleasant, good affect and mood General Appearance: Well appearing, alert, in no acute distress, well-hydrated, well nourished.. Skin: Skin color, texture, turgor normal, no suspicious rashes or lesions. Peripheral Pulses: Normal. Neurologic: Gait normal. Reflexes normal and symmetric. Sensation grossly intact.. Lymph Nodes: No cervical lymphadenopathy, No supraclavicular lymphadenopathy, No axillary lymphadenopathy., and No inguinal lymphadenopathy.. Respiratory: No recent pulmonary infection, hemoptysis, chronic cough, or shortness of breath at rest Rheumatologic: Joint deformities: bilateral leg pain Right Hip Exam Tenderness The patient is experiencing no tenderness. Range of Motion The patient has normal right hip ROM. Muscle Strength The patient has normal right hip strength. Other Erythema: absent Sensation: normal Pulse: present Comments: Neg homans bilaterally Left Hip Exam Left hip exam is normal. Tenderness The patient is experiencing no tenderness. Range of Motion The patient has normal left hip ROM. Muscle Strength The patient has normal left hip strength. Other Erythema: absent Sensation: normal Pulse: present Last XR Hip/Pelvis - Impression Only XR HIP GENERAL 3V PELV/AP/LAT RIGHT Exam End: 10/02/2024 2:25 PM (Final result) Impression: IMPRESSION: Findings as discussed under Results portion of report. Bdr: FANY Transcribe Date/Time: Oct 02 2024 5:05P ... Findings: Findings: Mild degenerative changes L5-S1 level Pelvis: No fractures or dislocations are seen. Severe narrowing of both hip joints. Sacroiliac joints are patent. Mild narrowing of the pubic symphysis is seen. Left hip: No fractures or dislocations are seen. RIGHT hip : No fractures or dislocations are seen. Assessment and Plan Radiographs: I have independently reviewed films and my findings are the same. and I have reviewed the images with the patient and family. Impression: Encounter Diagnosis ICD-10-CM 1. Bilateral hip pain M25.551 XR HIP GENERAL 3V PELV/AP/LAT LEFT M25.552 XR HIP GENERAL 3V PELV/AP/LAT RIGHT 2. 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) E11.43 EMG(NEURO/NI) Today, in detail, through a thorough evaluation, we discussed possible etiologies of pain and our plans for further diagnostic and therapeutic interventions. We discussed strategies for decreasing pain and improving strength, stability and motion. Patient's questions were answered in detailed. Patient verbalizes understanding and agrees with the treatment plan as discussed. Study Interpretation Extensive electrodiagnostic examination of the right lower extremity and additional nerve conduction studies of the left lower extremity reveals evidence of a bilateral femoral mononeuropathies, severe in degree electrically, right worse than left, without evidence of recent or ongoing motor axon loss. There is no clear cut evidence of a right L1,2,3, or 4 motor radiculopathy (see Comments, below). Comment: The saphenous sensory responses are always technically difficult, especially in the elderly. I cannot rule out that their absence is artifactual; if it were, it would leave open the possibility of a right lumbar radiculopathy instead of a right femoral neuropathy. rush seen in office and discussed if ok to proceed with injections of hip and discussed Hip xrays today Emg done earlier in year reviewed Follow up after injection Patient aware and in agreement of plan. All questions answered. I spent 45 minutes in the visit, with more than 50% of the total [id number] time of the visit in counseling / coordination of care. Ivet Colin D.O. M.P.H. documented in this encounter [facility] 09-20-2024 Telephone encounter Note Prescription Refill Information [employer] Auth # [id number] The patient has been identified by name and date of : Yes Caregiver verified no other encounters exist for this prescription request: Yes Caregiver confirmed with patient/requestor that no other refills are due, in the near future, with this provider at this time: Yes The last office visit in the department: Does the patient have a future office visit with this provider/department: Yes Requested Prescriptions Pending Prescriptions Disp Refills REVLIMID 5 mg capsule [Pharmacy Med Name: REVLIMID 5MG CAP] 28 capsule 0 Sig: TAKE 1 CAPSULE BY MOUTH DAILY FOR 28 DAYS Terri Henry LPN September 20, 2024 7:50 AM [facility] 09-20-2024 Miscellaneous Notes Prescription Ref[place] [facility] [place] [id number] The patient has been identified by name and date of : Yes Caregiver verified no other encounters exist for this prescription request: Yes Caregiver confirmed with patient/requestor that no other refills are due, in the near future, with this provider at this time: Yes The last office visit in the department: Does the patient have a future office visit with this provider/department: Yes Requested Prescriptions Pending Prescriptions Disp Refills REVLIMID 5 mg capsule [Pharmacy Med Name: REVLIMID 5MG CAP] 28 capsule 0 Sig: TAKE 1 CAPSULE BY MOUTH DAILY FOR 28 DAYS Terri Henry LPN September 20, 2024 7:50 AM documented in this encounter [facility] 09-20-2024 Telephone encounter Note Prescription Refill Information The patient has been identified by name and date of : Yes Caregiver verified no other encounters exist for this prescription request: Yes Caregiver confirmed with patient/requestor that no other refills are due, in the near future, with this provider at this time: Yes The last office visit in the department: 08/29/2024 Does the patient have a future office visit with this provider/department: Yes As of 11/27/23 telephone note pt. Was switched from apixiban to Xarelto Requested Prescriptions Pending Prescriptions Disp Refills XARELTO 20 mg tablet [Pharmacy Med Name: Xarelto 20 MG Oral Tablet] 30 tablet 0 Sig: TAKE 1 TABLET BY MOUTH ONCE DAILY WITH DINNER Terri Henry LPN September 20, 2024 7:44 AM [facility] 09-20-2024 Miscellaneous Notes Prescription Refill Information The patient has been identified by name and date of : Yes Caregiver verified no other encounters exist for this prescription request: Yes Caregiver confirmed with patient/requestor that no other refills are due, in the near future, with this provider at this time: Yes The last office visit in the department: 08/29/2024 Does the patient have a future office visit with this provider/department: Yes As of 11/27/23 telephone note pt. Was switched from apixiban to Xarelto Requested Prescriptions Pending Prescriptions Disp Refills XARELTO 20 mg tablet [Pharmacy Med Name: Xarelto 20 MG Oral Tablet] 30 tablet 0 Sig: TAKE 1 TABLET BY MOUTH ONCE DAILY WITH DINNER Terri Henry LPN September 20, 2024 7:44 AM documented in this encounter [facility] 09-18-2024 History of Present illness Narrative IRB # [id number], [facility]# [id number] study entitled Phase III Study of Daratumumab/rHuPH20 (NSC- [id number]) + Lenalidomide or Lenalidomide as Post-Autologous Stem Cell Transplant Maintenance Therapy in Patients with Multiple Myeloma (MM) Using Minimal Residual Disease to Direct Therapy Duration (DRAMMATIC Study). Registration Information: Informed Consent Signed 01/03/2023 Registered Step 1 01/06/2023 Informed Consent Signed Step 2 07/22/2023 Randomization Date: 08/18/2023 Addendum 11/16/2023 Treatment Arm: TAC- 1 Lenalidomide Study ID [id number] Consent to optional samples Yes Study Status Active Patient was here for Cycle 15 to see Connie Mccain D.O.. Discussed the results of Bone Marrow Biopsy per conversation again. All of the patients and his 's questions were answered at this time in regards to continued thigh and back issues. Patient doing much better overall per family and patient since calls earlier. Treatment Plan: Treatment Previous Cycle Cycle Current Start Date Frequency End date Lenalidomide Cycle 1 Day 1 08/24/2023 Dose Reduced 05/12/2024 5mg Cycle 14 08/22/2024-09/18/2024 = 100% Cycle 14 09/19/2024-10/17/2024 10/19/2023 Daily, Cycle every 28 days Clinical Trial Specific Testing Test Dates Completed Due Date Bone Marrow Biopsy CTD 07/24/2023 Baseline Step 2 [x] 07/18/2024 12 months post Step 2 [x] 07/24/2025 24 months post Step 2 [] 07/24/2026 36 months post Step 2 [] 07/24/2027 48 months post Step 2 [] QOLs PRO-CTCAE 08/17/2023 (Baseline) [x] 08/24/2023 (Cycle 1) [x] 09/21/2023 (Cycle 2) [x] 10/19/2023 (Cycle 3) [x] 11/16/2023 (Cycle 4) [x] 12/14/2023 (Cycle 5) [x] 01/11/2024 (Cycle 6) [x] 02/08/2024 (Cycle 7) [x] 03/07/2024 (Cycle 8) [x] 04/04/2024 (Cycle 9) [x] 05/02/2024 (Cycle 10) [x] 05/29/2024 (Cycle 11) [x] 06/27/2024 (Cycle 12) [x] 07/25/2024 (Cycle 13) and annual PROMIS-29 and Intolerance [x] 08/22/2024 (Cycle 14) [x] 09/18/2024 (Cycle 15) [x] 10/17/2024 (Cycle 16) [] Day 1 of every cycle Baseline Weight (08/24/2023 date) 80.7 kg Current Weight 88 kg (9% +) Creatinine Clearance 60.3 ml/min ECOG per ECOG- 1 Bone Marrow - Plasma Cell % Free Light Chains M Protein Date Size (mm) Date [place] Lambda * IGG Date Serum Urine Diagnosis 08/24/2022 20% Diagnosis 10/26/2022 11.7 43.5 Diagnosis 10/26/2022 1.12 M protein present Baseline 07/30/2023 Less than 5%* Baseline 08/07/2023 4.7 2.5 Enrollment 07/31/2023 Cycle 1 0.22 0.00 08/24/2023 Cycle 1 4.1* 2.4* 08/24/2023 Cycle 1 0.28 0.00 09/21/2023 Cycle 2 11.7 8.7 09/21/2023 Cycle 2 0.17 0.01 10/19/2023 Cycle 3 15.5 10.5 10/19/2023 Cycle 3 0.16 0.01 11/16/2023 Cycle 4 17.4 21.4 11/16/2023 Cycle 4 0.20 0.00 12/14/2023 Cycle 5 19.4 23.1 12/14/2023 Cycle 5 0.00* 0.00 01/11/2024 Cycle 6 25.8 19.4 01/11/2024 Cycle 6 0.15 0.00 02/08/2024 Cycle 7 24.2 20.4 02/08/2024 Cycle 7 0.00* 0.00 03/07/2024 Cycle 8 22.0 15.3 03/07/2024 Cycle 8 0.23 0.0 04/04/2024 Cycle 9 22.4 17.5 04/04/2024 Cycle 9 0.24 0.00 05/02/2024 Cycle 10 23.2 16.5 05/02/2024 Cycle 10 0.00* 0.00 05/29/2024 Cycle 11 23.7 15.3 05/29/2024 Cycle 11 0.00* 0.00 06/27/2024 Cycle 12 27.7 19.3 06/27/2024 Cycle 12 0.25 0.00 07/25/2024 Cycle 13 37.8 21.5 07/25/2024 Cycle 13 0.19 0.00 08/22/2024 Cycle 14 25.2 15.7 08/22/2024 Cycle 14 0.25 0.00 09/18/2024 Cycle 15 20.5 13.2 09/18/2024 Cycle 15 0.23 0.00 Lowest/Jacque = * Drug Accountability/Education - Completed on 09/18/2024. Patient given Cycle 15 diary. Patient did return cycle 14 - reviewed edits with patient. Use of the study medication diary and dosing instructions were reviewed with the patient. Patient verbalizes understanding of dosing of Revlimid: Capsules should be taken whole, with water, once daily (patient takes at HS). If a dose is missed, and it has been less than 12 hours since the preceding dose, the patient should take lenalidomide as soon as the patient remembers. If it has been more than 12 hours, the patient should skip the missed dose. Patient took 28/28 pills for the cycle - determining 100% compliance Patient receives drug from a private pharmacy. Lenalidomide Education and Counseling completed. Patient counseled on potential exposure to lenalidomide by Bright, engage in abstinence or use a condom when engaging in sexual contact with [facility], notify study doctor if female partner becomes , never share drug with anyone else, not to donate blood, semen, or sperm while taking drug and for 28 days after. Concomitant medications reviewed per protocol: Yes Patient reported changes to medication list: No changes since last visit. Current medications: Current use of anticoagulants: YES (see medications below if applicable) Anticoagulants: Eliquis 5 mg Current use of herbal preparations or medications: No Prophylactic shingles medication: Acyclovir 400 mg Current Outpatient Medications Medication Sig Start/Stop Use acyclovir (ZOVIRAX) 400 mg tablet Take 1 tablet by mouth twice daily. 05/01/2023 Prophylactic shingles ondansetron (ZOFRAN) 8 mg tablet Take 1 tablet by mouth every 8 hours as needed for nausea/vomiting. 10/26/2022 PRN Nausea clonazePAM (KLONOPIN) 0.5 mg tablet Take 0.5 mg by mouth once daily. 07/29/2023 Anxiety glimepiride (AMARYL) 4 mg tablet Take 2 capsules by mouth in AM & 1 capsule in PM. >5 years Type 2 amLODIPine (NORVASC) 5 mg tablet Take 5 mg by mouth once daily. 02/10/2021 Hypertension atorvastatin (LIPITOR) 10 mg tablet Take 10 mg by mouth once daily. 02/10/2021 Cholesterol losartan (COZAAR) 50 mg tablet Take 50 mg by mouth once daily. 02/10/2021 Hypertension Loperamide (Imodium Oral) Take 2 tablet by mouth as needed >5 years Diarrhea Sildenafil (Viagra) 50 mg tablet Take 50 mg by mouth as needed. >10 years ED Eliquis 5 mg tablet Take 1 tablet by mouth twice daily 03/23/2023 Preventative -blood thinner Melatonin 5 mg Take 1 tablet at bedtime 03/23/2023 Insomnia Revlimid 10 mg Take 1 capsule daily in the morning 08/24/2023 Stopped: 05/12/2024 MM treatment Revlimid 5 mg Take 1 capsule daily in the morning 05/12/2024 MM treatment Linzess 72 mcg Take 1 capsule for constipation symptoms once a day as needed for constipation 12/31/2023 Constipation Azithromycin (ZITHROMAX) 500 mg tablet Take 1 tablet by mouth daily 02/02/2024 Completed 02/05/2024 Antibiotic No current facility-administered medications for this visit. Medical History: PAST MEDICAL HISTORY Diagnosis Date Arthritis Treated with medication Chronic diarrhea Resolved and now constipation Diabetes mellitus (HCC) Treated with medication Essential hypertension Treated with medication Mixed hyperlipidemia Treated with medication PAST MEDICAL HISTORY Diagnosis Date Arthritis Treated with medication Chronic diarrhea Resolved Malignant melanoma (HCC) On back removed - precancerous and 06/2022 non cancerous Mixed hyperlipidemia Treated with medication Multiple myeloma not having achieved remission (HCC) Treated with medication Primary hypertension Treated with medication Pulmonary embolism (HCC) Treated with medication Right bundle branch block Treated with medication Type 2 diabetes mellitus, without long-term current use of insulin (HCC) Treated with medication Surgical History: PAST SURGICAL HISTORY Procedure Laterality Date REPAIR INCISIONAL HERNIA,REDUCIBLE Resolved 8th grade SKIN BX, 1 LESION 06/2022 non cancerous Baseline Toxicities per CTCAE v. 5: All predate therapy, are chronic conditions and will not be actively followed unless they worsen during the clinical trial. Hyperglycemia; Grade 1: Start Date: >5 years PRIOR TO STUDY Drugs to Treat: Glimepiride Action Required: None Outcome: Ongoing. (Chronic) Diarrhea; Grade 1: INTERMITTENT Start Date: >5 years PRIOR TO STUDY Drugs to Treat: Imodium Action Required: None Outcome: Ongoing. Anemia; Grade 1: Start Date: Intermittent PRIOR TO STUDY 07/24/2023 RESOLVED: 08/24/2023 but Grade 1 again 09/21/2023 Drugs to Treat: None. Action Required: None Outcome: Ongoing Aspartate aminotransferase decreased; Grade 1: Start Date: Intermittent PRIOR TO STUDY Drugs to Treat: None. Action Required: None Outcome: Ongoing Alanine aminotransferase decreased; Grade 1: Start Date: Intermittent PRIOR TO STUDY Drugs to Treat: None. Action Required: None Outcome: Ongoing Insomnia; Grade 1: Start Date: Intermittent PRIOR TO STUDY 07/21/2023 Drugs to Treat: None. Action Required: None Outcome: Ongoing. Weight Loss; Grade 1: 3.5 Percent Increase since - Intentional Start Date: Intentional Loss - PRIOR TO STUDY 07/21/2023 RESOLVED:11/16/2023 Drugs to Treat: None. Action Required: None Outcome: RESOLVED Hypophosphatemia:Start Date: PRIOR TO STUDY 07/24/2023 STOPPED:08/24/2023 Drugs to Treat: None. Action Required: None Outcome: RESOLVED Lymphocyte Count Decreased; Grade 1: Start Date: Intermittent PRIOR TO STUDY- Possibly related to Revlimid and Drugs to Treat: None. Action Required: None Outcome: Ongoing Toxicities per CTCAE v. 5: White Blood Cell Count Decreased; Grade 2: Related to Revlimid and cold RESOLVED:09/18/2024 Drugs to Treat: None. Action Required: None Outcome: RESOLVED Bone Pain: Grade 1; Bilateral Thigh: Unlikely related to Revlimid Start Date: PRIOR TO STUDY 08/24/2023 INCREASED 10/19/2023 Decreased to almost resolved: 02/08/2024 Drugs to Treat: None. Action Required: EMG and PT Outcome: Continues Neutrophil Count Decreased; Grade 1: Possibly Related to Revlimid and Vaccines Start Date: 04/04/2024 STOPPED:09/18/2024 Drugs to Treat: None. Action Required:None Outcome:RESOLVED Memory Impairment; Grade 1: Unrelated to Revlimid Start Date: 02/08/2024 witnessed by RN but reported as PRIOR TO STUDY recently by patients Drugs to Treat: NoneAction Required: None Outcome: Ongoing but improving Creatinine Increased; Grade 1: Start Date: 06/27/2024 Drugs to Treat: None. Action Required: None Outcome: Ongoing Patient turned in a 24 hour urine: Yes Chart sent the overseeing physician to review CTCAE toxicities. Patient knows to RTC 10/17/2024 for C15. Patient knows to call in the interim for any questions or concerns. Patient has contact information for Uma Gill Research Nurse and Dr. Mccain, along with the office number. All other abnormal lab values are deemed not clinically significant and therefor will not be graded. Treating provider has reviewed and agrees with Adverse Events above. Chart being routed to Connie Mccain D.O.. Patient meets all Criteria for Study Participation: Yes REID Bynum, RN Clinical Research Nurse [phone] documented in this encounter [facility] 09-18-2024 History of Present illness Narrative Oncologic problem(s): 1) IgG lambda multiple myeloma. HPI: The patient is a 74-year-old male with a past medical history significant for type 2 diabetes, high cholesterol, hypertension and right bundle branch block. Patient originally presented to the emergency room at [facility] on 04/19/2022 with new onset of confusion that day which had been worsening. Laboratory work-up significant for hypokalemia. CT of the brain was unremarkable. He was admitted. During hospitalization it was noted that he had been having diarrhea for 6 to 8 weeks. Stool studies were positive for Campylobacter, blood and lactoferrin. C. difficile was negative. CT of the abdomen pelvis on 04/21/2022 noted abnormal pericholecystic edema without gallstones. Renal cysts and colonic diverticulosis were noted. He was found to have elevation of sed rate to 39, CRP 134. His albumin was 2.3. IgA low at 37. He was discharged on azithromycin, potassium and magnesium supplement. He was seen in the outpatient setting for follow-up visit on 07/11/2022. He continued to have one episode of explosive diarrhea daily. This had been going on for about 8 months. CBC on 07/11 showed a white count of 6400. Differential was normal. Hemoglobin 14.9 g/dL. Platelet count 275,000. Chemistries significant for creatinine of 1.29 g/dL. Previously 1.13 g/dL on 04/27/2022. Calcium was 9.3 mg/dL. Total bilirubin, AST, ALT and alkaline phosphatase were normal. LDH was 181. C-reactive protein was less than 2.09. Total protein was 8.8 g/dL. Total IgG was 2462 mg/dL. IgA decreased to 28 mg/dL. IgM normal at 32 mg/dL. On protein electrophoresis, patient was found to have 2M spikes both IgG lambda by immunofixation. For spike was quantitated at 1.2 g/dL and the second was quantitated at 0.6 g/dL. Cytoplasmic and perinuclear ANCA both negative. Atypical p-ANCA negative. Patient described diarrhea as loose, eran stools sometimes explosive typically one bowel movement per day however. He had not observed any blood. Had a colonoscopy December [address] Arteaga. His appetite was normal. He had not lost weight. Denied reflux and nausea. He did get abdominal bloating associated with the diarrhea. He denied musculoskeletal pain. He denied symptoms of sensory neuropathy. He sees an team supervisor once a year for dilated exam. He has not been told he has retinopathy. Recent removal of early melanoma back. Blue nevus right ankle--required WLE--scheduled. PMR--about 15 years ago. Patient underwent colonoscopy on 09/21/2022. Preparation of the colon was fair. -One 6 mm polyp at the ileocecal valve, removed with a hot snare. Resected and retrieved. -One 5 mm polyp in the ascending colon, removed with a hot snare. Resected and retrieved. -Congested mucosa in the descending colon, at the splenic flexure, in the ascending colon and in the cecum. Biopsied. -Diverticulosis in the recto-sigmoid colon, in the sigmoid colon and in the descending colon. -Stool in the rectum, in the sigmoid colon, in the descending colon and at the hepatic flexure. Fluid aspiration performed. -The examined portion of the ileum was normal. Biopsied. Pathology: A. Ileocecal valve polyp, biopsy: -Consistent with fibrolipomatous polyp. -See comment. B. Small bowel, biopsy: -No pathologic change. C. Cecum, biopsy: -Mild melanosis coli. D. Colon, random biopsy: -Mild melanosis coli. E. Ascending colon polyp, biopsy: -Fragments of tubular adenoma. B, C, D & E - No congophilic material identified. Congo red stain with matched control is negative. ADDENDUM C & D. No congophilic material is noted in these biopsies on light and polarized microscopy. [place] Red stain with matched control was used in the evaluation of this case. He was diagnosed with pancreatic insufficiency and was to start pancreatic enzyme replacement. Patient had a venous duplex ultrasound on 12/16/2022 for right leg pain. That study demonstrated no evidence of DVT in the right leg. He developed chest pain and increasing shortness of breath. Went to the ED on 01/16/2023. PE protocol chest CT demonstrated multiple bilateral pulmonary emboli involving the distal portion of both the right and left main pulmonary arteries as well as branches of the upper and lower lobe pulmonary arteries, more prominent on the right side. Platelet count was 67,000. Patient was admitted and placed on unfractionated heparin with bolus. The next morning platelet count was 62,000. He was rotated to apixaban and discharged. Echocardiogram performed 01/17/2023 demonstrated normal LV size. There was moderate concentric LVH. Left ventricular systolic function was normal with an estimated ejection fraction at 60%. There was stage I diastolic dysfunction. The pulmonary artery systolic pressure was 58 mmHg. The global longitudinal strain was -11.5% (abnormal). The global longitudinal strain was moderately abnormal. (Previous echocardiogram 04/20/2022 demonstrated right ventricular systolic pressure estimated at 22 mmHg. Diastolic function was indeterminate. Right ventricular strain was not determined). His chest pain has improved. He is still short of breath with heavier exertion and sometimes walking from room to room he finds himself breathing heavier. He has been taking apixaban 10 mg twice daily. No bleeding issues. Previous therapy: 1) RVd. Cycle #1 began 11/09/2022. 2) Zometa. 3) ASCT. Transplant Summary: BMT Information ASCR infused on 06/02/2023 Planned Proposed Protocols: IP BMT AUTO MELPHALAN 200 Planned Preparative Regimen Drug: Melphalan Planned Mobilization Agent: G-CSF, Plerixafor Planned Stem Cell Source: Peripheral blood stem cells BMT Transplant Details # of cells: 6.16 Saw neurology. 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 Scheduled for EMG 01/16. Seen in the ED on 01/27/2024 for an episode of confusion that was secondary to hypoglycemia. Evidently had influenza diagnosed prior to that. Was then admitted for neutropenic fever on 01/31/2024. ANC was 600 at time of admission. Influenza A positive. Stool positive for Campylobacter. Was treated with high-dose Tamiflu secondary to underlying immunocompromise. Discharged on azithromycin 500 mg daily for 14 days. Presents for ongoing oncologic management. Interim history: Recent right lower back pain. See recent phone note. Much better now. Needs to have a crown replaced upper tooth. PMH, medications and allergies personally reviewed by me today. Any changes documented in appropriate section. ROS: Constitutional: Denies episodes of fever and night sweats. Neuro: Denies HAMILTON, vertigo, dizziness and imbalance. HEENT: No recent change in voice, vision. Resp: Denies cough, wheeze and hemoptysis. Denies shortness of breath at rest. Denies MACE. CVS: Denies exertional chest pain, PND, orthopnea and LE edema. : Denies dysuria or gross hematuria. Endo: Denies hot flashes. Denies polyuria and polydipsia. Denies heat and cold intolerance. Musculoskeletal: See HPI. Derm: Denies rash. Denies jaundice and diffuse pruritis. Heme: Denies unusual bleeding and unexplained bruising. Psych: Normal mood. PHYSICAL EXAM: Vitals: Blood pressure 103/55, pulse 63, temperature 36.6 C (97.8 F), temperature source Temporal, weight 88 kg (194 lb), SpO2 97%. Well-appearing and in no acute distress. EYES: Sclerae are anicteric bilaterally. LYMPHATIC: There is no palpable cervical or supraclavicular adenopathy. ABDOMEN: The abdomen is nondistended. Extremities: No swelling or edema. SKIN: No jaundice. LABS: ASSESSMENT/PLAN: (C90.00) Multiple myeloma not having achieved remission (HCC) (primary encounter diagnosis) Assessment: -The patient is a 73-year-old male has a past medical history significant for diabetes and chronic diarrhea that was characterized by one explosive watery stool daily (was diagnosed with pancreatic insufficiency). Was hospitalized 03/2022 when diarrhea significantly worsened and he was diagnosed with and treated for Campylobacter infection. During that evaluation, was found to have two IgG lambda monoclonal antibodies. He did not have hypercalcemia or anemia but had elevated serum creatinine (which may have been related to volume depletion when hospitalized for diarrhea and mental status change). 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 Low to intermediate risk disease (PCs 20%). -Imaging--no lytic lesions on whole body CT; Liver cyst and splenic nodule (6-12 month f/u MRI recommended). -Bone marrow negative for amyoid. -Colonic biopsies negative for amyloid. -Subsequent MRI of spine and pelvis revealed two T2 hyperintense foci in the pelvis, one in the left sacral rebeka and one in the right ischium. -FISH panel revealed (11;14) (q13;q32) (IGH/CCND1) translocation consistent with the presence of a plasma cell neoplasm associated with standard risk disease. -R-ISS stage I (serum beta microglobulin less than 3.5 mg/L and serum albumin greater than 3.5 g/dL; standard risk disease by FISH testing as outlined above and serum LDH less than upper limit of normal). -Some increase in serum MP, but not >0.5 and stable for about 3 months. -Reviewed results from 07/25. Continues to maintain VGPR. -Reviewed CBC. Counts allow continued therapy. -ECOG currently 1. 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 Plan: -Continue lenalidomide at current dose.. -CBC, chemistries and serum protein electrophoresis and immunofixation as well as 24-hour urine collection for electrophoresis and immunofixation monthly per protocol. Supportive care: ID: Plan: -Continue acyclovir. Heme: -As above. Skeletal: -Only lytic lesions observed over those in the pelvic bones on MRI initially. -Seems leg pain may be related to knees -Recent acute back spasm that responded very well to muscle relaxer and tapering course of prednisone. Plan: -Complete prednisone taper. -Zometa every 3 months--okay for dose today. Chronic PE. Assessment: -B/L PE on ASA prophylaxis. -Previous evidence of pulmonary hypertension on echocardiogram. -Tolerating apixaban well. Plan: -Continue apixaban. 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 Likely a consequence of nerve impingement as evidenced by previous MRI and not related to therapy for myeloma. Subsequent EMG confirmed this. Portions of this documentation were copied and pasted from previous office visit notes in order to provide a cohesive continuity of the history. The note has been reviewed and edited and updated as necessary. I spent a total of 15 minutes on the date of the service which included preparing to see the patient, [id number] patient care, completing clinical documentation, obtaining and/or reviewing separately obtained history, performing a medically appropriate examination, counseling and educating the patient/family/caregiver, ordering medications, tests, or procedures, communicating with other HCPs (not separately reported), and communicating results to the patient/family/caregiver. Connie Mccain DO documented in this encounter [facility] 09-12-2024 Telephone encounter Note Patient had rather acute onset right-sided low back pain Monday. Saw PCP today. UA evidently unremarkable except for small amount of sugar. KUB was done at [facility]. No evidence of kidney stone. Pain sounds musculoskeletal in nature. Talked with his . Advised Tylenol. Hold meloxicam. Hold acyclovir since he will take muscle relaxer for a few days. Also Rx prednisone taper which he will start tomorrow morning. Connie Mccain DO [facility] 09-12-2024 Miscellaneous Notes Patient had rather acute onset right-sided low back pain Monday. Saw PCP today. UA evidently unremarkable except for small amount of sugar. KUB was done at [facility]. No evidence of kidney stone. Pain sounds musculoskeletal in nature. Talked with his . Advised Tylenol. Hold meloxicam. Hold acyclovir since he will take muscle relaxer for a few days. Also Rx prednisone taper which he will start tomorrow morning. Connie Mccain DO documented in this encounter [facility] 09-12-2024 Telephone encounter Note Research Triage Note [facility] Situation: Patient and family reported to the Research RN: Right Flank Pain - Began Monday and has continued to get worse over the last few days. Background: Disease, current pertinent medications/treatments Myeloma, on clinical trial,Revlimid Recently increased creatinine that we had the patient return for a repeat BMP. Assessment: Right Flank Pain - Began Monday and has continued to get worse over the last few days. The patient reports a 7 out of 10 pain. The pain got to bad yesterday that he sat in a chair all day with a heating pad. This is very out of character for the patient. The patient describes the pain as constant when moving and still present but less intense at rest. Patient says,it feels like a fist right in the kidney. The pain is right above the buttocks. The patient has had decreased output. The patient did go see their PCP today. patient had to drink 20 mini cups of water to provide a sample for their PCP today. The patient did have imaging, labs, and urine checked. They said no infection - mild sugar in the urine and no signs of a kidney stone. Recommendations: The patients PCP could not explain the pain and ordered Meloxicam for the continued pain. Message forwarded to Kip Lopes RN September 12, 2024 [facility] 09-12-2024 Miscellaneous Notes Research Triage Note [facility] Situation: Patient and family reported to the Research RN: Right Flank Pain - Began Monday and has continued to get worse over the last few days. Background: Disease, current pertinent medications/treatments Myeloma, on clinical trial,Revlimid Recently increased creatinine that we had the patient return for a repeat BMP. Assessment: Right Flank Pain - Began Monday and has continued to get worse over the last few days. The patient reports a 7 out of 10 pain. The pain got to bad yesterday that he sat in a chair all day with a heating pad. This is very out of character for the patient. The patient describes the pain as constant when moving and still present but less intense at rest. Patient says,it feels like a fist right in the kidney. The pain is right above the buttocks. The patient has had decreased output. The patient did go see their PCP today. patient had to drink 20 mini cups of water to provide a sample for their PCP today. The patient did have imaging, labs, and urine checked. They said no infection - mild sugar in the urine and no signs of a kidney stone. Recommendations: The patients PCP could not explain the pain and ordered Meloxicam for the continued pain. Message forwarded to Connie Mccain D.O. Temo Gill RN September 12, 2024 documented in this encounter [facility] 09-02-2024 Telephone encounter Note Patient scheduled for 10/02/[address] Colin [facility] 09-02-2024 Miscellaneous Notes Patient scheduled for 10/02/[address] Cloin Please contact Altagracia aJke to schedule the patient an appt [facility] Dr. Colin. Reason unknown. Per , 30 min slot if possible. documented in this encounter [facility] 09-02-2024 Telephone encounter Note Please contact Altagracia Jake to schedule the patient an appt wt Dr. Colin. Reason unknown. Per , 30 min slot if possible. [facility] 08-29-2024 Telephone encounter Note SOCIAL WORK FOLLOW UP NOTE: [facility] Date of service: August 29, 2024 Oseas Joseph is being seen for a follow up social work visit. Today's visit includes: spouse TOPICS ADDRESSED: ARIADNE met with pt's Louise this date to discuss Revlimid patient assistance for 2024. Louise presented letter from [employer] which outlines Medicare part D changes with $2,000 OOP max. ARIADNE explained letter to pt's and answered all questions as able. Currently pt is enrolled in [employer] for assistance with Revlimid costs. Per [employer], pt's account balance is $8673.49. Pt's enrollment is good through 10/02/24 as which time SW will apply for renewal for coverage. If coverage is quickly in 2024, Sw informed pt's that we can apply for [employer] assistance after funds are exhausted. Louise appreciative, no other needs identified. PLAN: Assist with financial support applications and Continue follow up as needed F/U APPOINTMENT: PRN Assigned SW listed in Care Team tab: Yes LEONOR Byrnes-Tim [facility] 08-29-2024 Miscellaneous Notes SOCIAL WORK FOLLOW UP NOTE: [facility] Date of service: August 29, 2024 Oseas Joseph is being seen for a follow up social work visit. Today's visit includes: spouse TOPICS ADDRESSED: ARIADNE met with pt's Louise this date to discuss Revlimid patient assistance for 2024. Louise presented letter from [employer] which outlines Medicare part D changes with $2,000 OOP max. SW explained letter to pt's and answered all questions as able. Currently pt is enrolled in [employer] for assistance with Revlimid costs. Per [employer], pt's account balance is $8673.49. Pt's enrollment is good through 10/02/24 as which time SW will apply for renewal for coverage. If coverage is quickly in 2024, Sw informed pt's that we can apply for [employer] assistance after funds are exhausted. Louise appreciative, no other needs identified. PLAN: Assist with financial support applications and Continue follow up as needed F/U APPOINTMENT: PRN Assigned SW listed in Care Team tab: Yes ISAC Byrnes documented in this encounter [facility] 08-28-2024 Telephone encounter Note Spoke with patient's spouse and they are already established for other reasons with Dr. Colin. They will reach out to Dr. Colin through their daughter who is friends with and former classmate of the provider as Epic blocks the provider from seeing patients over 66 years of age. Patient/spouse will call back if they need to see a different provider. Isabel Murphy [facility] 08-28-2024 Miscellaneous Notes Spoke with patient's spouse and they are already established for other reasons with Dr. Colin. They will reach out to Dr. Colin through their daughter who is friends with and former classmate of the provider as Epic blocks the provider from seeing patients over 66 years of age. Patient/spouse will call back if they need to see a different provider. Isabel Murphy X-rays show advanced arthritis in the left knee. Would be happy to make referral to orthopedics for him if he would like. Connie Mccain DO denies any diarrhea. He is not real good at drinking an appropriate amount during the day, he tries though. PSS please make lab apt 08/29/24 at 10AM for a BMP. Pt aware. Flor Canales LPN His recent lab testing shows his kidney function has gotten slightly worse. However, looks like it may be related to dehydration. Has been having diarrhea? Continue to stay well-hydrated and avoid NSAIDs. Recheck BMP on . Connie Mccain DO documented in this encounter [facility] 08-27-2024 Telephone encounter Note X-rays show advanced arthritis in the left knee. Would be happy to make referral to orthopedics for him if he would like. Connie Mccain DO [facility] 08-26-2024 Telephone encounter Note denies any diarrhea. He is not real good at drinking an appropriate amount during the day, he tries though. PSS please make lab apt 08/29/24 at 10AM for a BMP. Pt aware. Flor Canales LPN [facility] 08-26-2024 Telephone encounter Note His recent lab testing shows his kidney function has gotten slightly worse. However, looks like it may be related to dehydration. Has been having diarrhea? Continue to stay well-hydrated and avoid NSAIDs. Recheck BMP on . Connie Mccain DO [facility] 08-22-2024 History of Present illness Narrative IRB # [id number], [facility]# [id number] study entitled Phase III Study of Daratumumab/rHuPH20 (NSC- [id number]) + Lenalidomide or Lenalidomide as Post-Autologous Stem Cell Transplant Maintenance Therapy in Patients with Multiple Myeloma (MM) Using Minimal Residual Disease to Direct Therapy Duration (DRAMMATIC Study). Registration Information: Informed Consent Signed 01/03/2023 Registered Step 1 01/06/2023 Informed Consent Signed Step 2 07/22/2023 Randomization Date: 08/18/2023 Addendum 11/16/2023 Treatment Arm: TAC- 1 Lenalidomide Study ID [id number] Consent to optional samples Yes Study Status Active Patient was here for Cycle 14 to see Connie Mccain D.O.. Discussed the results of Bone Marrow Biopsy per conversation again. All of the patients, daughters, and his 's questions were answered at this time. Patient doing much better overall per family and patient. The patient is still having issues with thigh and knee area - ordered knee xrays. Treatment Plan: Treatment Previous Cycle Cycle Current Start Date Frequency End date Lenalidomide Cycle 1 Day 1 08/24/2023 Dose Reduced 05/12/2024 5mg Cycle 13 07/25/2024 -08/21/2024 = 92% Cycle 14 08/22/2024-09/18/2024 10/19/2023 Daily, Cycle every 28 days Clinical Trial Specific Testing Test Dates Completed Due Date Bone Marrow Biopsy CTD 07/24/2023 Baseline Step 2 [x] 07/18/2024 12 months post Step 2 [x] 07/24/2025 24 months post Step 2 [] 07/24/2026 36 months post Step 2 [] 07/24/2027 48 months post Step 2 [] QOLs PRO-CTCAE 08/17/2023 (Baseline) [x] 08/24/2023 (Cycle 1) [x] 09/21/2023 (Cycle 2) [x] 10/19/2023 (Cycle 3) [x] 11/16/2023 (Cycle 4) [x] 12/14/2023 (Cycle 5) [x] 01/11/2024 (Cycle 6) [x] 02/08/2024 (Cycle 7) [x] 03/07/2024 (Cycle 8) [x] 04/04/2024 (Cycle 9) [x] 05/02/2024 (Cycle 10) [x] 05/29/2024 (Cycle 11) [x] 06/27/2024 (Cycle 12) [x] 07/25/2024 (Cycle 13) and annual PROMIS-29 and Intolerance [x] 08/22/2024 (Cycle 14) [x] 09/18/2024 (Cycle 15) [] Day 1 of every cycle Baseline Weight (08/24/2023 date) 80.7 kg Current Weight 83.9 kg Creatinine Clearance 50.3 ml/min ECOG per ECOG- 1 Bone Marrow - Plasma Cell % Free Light Chains M Protein Date Size (mm) Date [place] Lambda * IGG Date Serum Urine Diagnosis 08/24/2022 20% Diagnosis 10/26/2022 11.7 43.5 Diagnosis 10/26/2022 1.12 M protein present Baseline 07/30/2023 Less than 5%* Baseline 08/07/2023 4.7 2.5 Enrollment 07/31/2023 Cycle 1 0.22 0.00 08/24/2023 Cycle 1 4.1* 2.4* 08/24/2023 Cycle 1 0.28 0.00 09/21/2023 Cycle 2 11.7 8.7 09/21/2023 Cycle 2 0.17 0.01 10/19/2023 Cycle 3 15.5 10.5 10/19/2023 Cycle 3 0.16 0.01 11/16/2023 Cycle 4 17.4 21.4 11/16/2023 Cycle 4 0.20 0.00 12/14/2023 Cycle 5 19.4 23.1 12/14/2023 Cycle 5 0.00* 0.00 01/11/2024 Cycle 6 25.8 19.4 01/11/2024 Cycle 6 0.15 0.00 02/08/2024 Cycle 7 24.2 20.4 02/08/2024 Cycle 7 0.00* 0.00 03/07/2024 Cycle 8 22.0 15.3 03/07/2024 Cycle 8 0.23 0.0 04/04/2024 Cycle 9 22.4 17.5 04/04/2024 Cycle 9 0.24 0.00 05/02/2024 Cycle 10 23.2 16.5 05/02/2024 Cycle 10 0.00* 0.00 05/29/2024 Cycle 11 23.7 15.3 05/29/2024 Cycle 11 0.00* 0.00 06/27/2024 Cycle 12 27.7 19.3 06/27/2024 Cycle 12 0.25 0.00 07/25/2024 Cycle 13 37.8 21.5 07/25/2024 Cycle 13 0.19 0.00 08/22/2024 Cycle 14 25.2 15.7 08/22/2024 Cycle 14 0.25 0.00 Lowest/Jacque = * Drug Accountability/Education - Completed on 08/22/2024. Patient given Cycle 14 diary. Patient did return cycle 13 - reviewed edits with patient. Use of the study medication diary and dosing instructions were reviewed with the patient. Patient verbalizes understanding of dosing of Revlimid: Capsules should be taken whole, with water, once daily (patient takes at HS). If a dose is missed, and it has been less than 12 hours since the preceding dose, the patient should take lenalidomide as soon as the patient remembers. If it has been more than 12 hours, the patient should skip the missed dose. Patient took 26/28 pills for the cycle - determining 92% compliance Patient receives drug from a private pharmacy. Lenalidomide Education and Counseling completed. Patient counseled on potential exposure to lenalidomide by Bright, engage in abstinence or use a condom when engaging in sexual contact with W[facility], notify study doctor if female partner becomes , never share drug with anyone else, not to donate blood, semen, or sperm while taking drug and for 28 days after. Concomitant medications reviewed per protocol: Yes Patient reported changes to medication list: No changes since last visit. Current medications: Current use of anticoagulants: YES (see medications below if applicable) Anticoagulants: Eliquis 5 mg Current use of herbal preparations or medications: No Prophylactic shingles medication: Acyclovir 400 mg Current Outpatient Medications Medication Sig Start/Stop Use acyclovir (ZOVIRAX) 400 mg tablet Take 1 tablet by mouth twice daily. 05/01/2023 Prophylactic shingles ondansetron (ZOFRAN) 8 mg tablet Take 1 tablet by mouth every 8 hours as needed for nausea/vomiting. 10/26/2022 PRN Nausea clonazePAM (KLONOPIN) 0.5 mg tablet Take 0.5 mg by mouth once daily. 07/29/2023 Anxiety glimepiride (AMARYL) 4 mg tablet Take 2 capsules by mouth in AM & 1 capsule in PM. >5 years Type 2 amLODIPine (NORVASC) 5 mg tablet Take 5 mg by mouth once daily. 02/10/2021 Hypertension atorvastatin (LIPITOR) 10 mg tablet Take 10 mg by mouth once daily. 02/10/2021 Cholesterol losartan (COZAAR) 50 mg tablet Take 50 mg by mouth once daily. 02/10/2021 Hypertension Loperamide (Imodium Oral) Take 2 tablet by mouth as needed >5 years Diarrhea Sildenafil (Viagra) 50 mg tablet Take 50 mg by mouth as needed. >10 years ED Eliquis 5 mg tablet Take 1 tablet by mouth twice daily 03/23/2023 Preventative -blood thinner Melatonin 5 mg Take 1 tablet at bedtime 03/23/2023 Insomnia Revlimid 10 mg Take 1 capsule daily in the morning 08/24/2023 Stopped: 05/12/2024 MM treatment Revlimid 5 mg Take 1 capsule daily in the morning 05/12/2024 MM treatment Linzess 72 mcg Take 1 capsule for constipation symptoms once a day as needed for constipation 12/31/2023 Constipation Azithromycin (ZITHROMAX) 500 mg tablet Take 1 tablet by mouth daily 02/02/2024 Completed 02/05/2024 Antibiotic No current facility-administered medications for this visit. Medical History: PAST MEDICAL HISTORY Diagnosis Date Arthritis Treated with medication Chronic diarrhea Resolved and now constipation Diabetes mellitus (HCC) Treated with medication Essential hypertension Treated with medication Mixed hyperlipidemia Treated with medication PAST MEDICAL HISTORY Diagnosis Date Arthritis Treated with medication Chronic diarrhea Resolved Malignant melanoma (HCC) On back removed - precancerous and 06/2022 non cancerous Mixed hyperlipidemia Treated with medication Multiple myeloma not having achieved remission (HCC) Treated with medication Primary hypertension Treated with medication Pulmonary embolism (HCC) Treated with medication Right bundle branch block Treated with medication Type 2 diabetes mellitus, without long-term current use of insulin (HCC) Treated with medication Surgical History: PAST SURGICAL HISTORY Procedure Laterality Date REPAIR INCISIONAL HERNIA,REDUCIBLE Resolved 8th grade SKIN BX, 1 LESION 06/2022 non cancerous Baseline Toxicities per CTCAE v. 5: All predate therapy, are chronic conditions and will not be actively followed unless they worsen during the clinical trial. Hyperglycemia; Grade 1: Start Date: >5 years PRIOR TO STUDY Drugs to Treat: Glimepiride Action Required: None Outcome: Ongoing. (Chronic) Diarrhea; Grade 1: INTERMITTENT Start Date: >5 years PRIOR TO STUDY Drugs to Treat: Imodium Action Required: None Outcome: Ongoing. Anemia; Grade 1: Start Date: Intermittent PRIOR TO STUDY 07/24/2023 RESOLVED: 08/24/2023 but Grade 1 again 09/21/2023 Drugs to Treat: None. Action Required: None Outcome: Ongoing Aspartate aminotransferase decreased; Grade 1: Start Date: Intermittent PRIOR TO STUDY Drugs to Treat: None. Action Required: None Outcome: Ongoing Alanine aminotransferase decreased; Grade 1: Start Date: Intermittent PRIOR TO STUDY 07/24/2023 STOPPED:11/16/2023 Drugs to Treat: None. Action Required: None Outcome: RESOLVED Insomnia; Grade 1: Start Date: Intermittent PRIOR TO STUDY 07/21/2023 Drugs to Treat: None. Action Required: None Outcome: Ongoing. Weight Loss; Grade 1: 3.5 Percent Increase since - Intentional Start Date: Intentional Loss - PRIOR TO STUDY 07/21/2023 RESOLVED:11/16/2023 Drugs to Treat: None. Action Required: None Outcome: RESOLVED Hypophosphatemia:Start Date: PRIOR TO STUDY 07/24/2023 STOPPED:08/24/2023 Drugs to Treat: None. Action Required: None Outcome: RESOLVED Lymphocyte Count Decreased; Grade 1: Start Date: Intermittent PRIOR TO STUDY- Possibly related to Revlimid and Drugs to Treat: None. Action Required: None Outcome: Ongoing Toxicities per CTCAE v. 5: White Blood Cell Count Decreased; Grade 2: Related to Revlimid and cold Start Date: 09/21/2023 Increased: 08/22/2024 Drugs to Treat: None. Action Required: None Outcome: ONGOING Bone Pain: Grade 1; Bilateral Thigh: Unlikely related to Revlimid Start Date: PRIOR TO STUDY 08/24/2023 INCREASED 10/19/2023 Decreased to almost resolved: 02/08/2024 Drugs to Treat: None. Action Required: EMG and PT Outcome: Continues Neutrophil Count Decreased; Grade 1: Possibly Related to Revlimid and Vaccines Start Date: 04/04/2024 Drugs to Treat: None. Action Required:None Outcome:Ongoing Memory Impairment; Grade 1: Unrelated to Revlimid Start Date: 02/08/2024 witnessed by RN but reported as PRIOR TO STUDY recently by patients Drugs to Treat: NoneAction Required: None Outcome: Ongoing Creatinine Increased; Grade 1: Start Date: 06/27/2024 Drugs to Treat: None. Action Required: None Outcome: Ongoing Patient turned in a 24 hour urine: Yes Chart sent the overseeing physician to review CTCAE toxicities. Patient knows to [facility] 09/18/2024 for C14. Patient knows to call in the interim for any questions or concerns. Patient has contact information for Uma Marie and Dr. Mccain, along with the office number. All other abnormal lab values are deemed not clinically significant and therefor will not be graded. Treating provider has reviewed and agrees with Adverse Events above. Chart being routed to Connie Mccain D.O.. Patient meets all Criteria for Study Participation: Yes REID Bynum, RN Clinical Research Nurse [phone] documented in this encounter [facility] 08-22-2024 History of Present illness Narrative Radiology Service Progress Note PATIENT NAME: Oseas Joseph DATE OF SERVICE: August 22, 2024 TIME: 10:43 AM PATIENT IDENTITY VERIFICATION COMPLETED USING TWO (2) IDENTIFIERS: Name and Date of confirmed by patient verbally. FALL SCREENING: Has the patient had 2 falls in the last year or 1 fall with injury or currently using an Ambulatory Assistive Device (Walker, Cane, Wheelchair, Crutches, etc.)? No PATIENT GENDER DATA: Male PATIENT RELEVANT IMPLANT DATA REVIEWED: Not Applicable PATIENT PRESENTS WITH AN IMPLANTABLE OR ATTACHED IMPLEMENTATION TECHNICIAN: No RADIOLOGY DEPARTMENT: General X-ray: Exam(s) Completed: Lower Extremity X-Ray(s): Knee, AP / LAT Bilateral PERIPHERAL IV DATA: Not applicable SIGNED BY: RT Julio Cesar(R) August 22, 2024 10:43 AM documented in this encounter [facility] 08-22-2024 Note HNO ID: [id number] Author: BREONNA DONOVAN RT(Alisa) Service: ? Author Type: Technologist Type: Progress Notes Filed: 08/22/2024 10:43 Note Text: Radiology Service Progress Note PATIENT NAME: Oseas Joseph DATE OF SERVICE: August 22, 2024 TIME: 10:43 AM PATIENT IDENTITY VERIFICATION COMPLETED USING TWO (2) IDENTIFIERS: Name and Date of confirmed by patient verbally. FALL SCREENING: Has the patient had 2 falls in the last year or 1 fall with injury or currently using an Ambulatory Assistive Device (Walker, Cane, Wheelchair, Crutches, etc.)? No PATIENT GENDER DATA: Male PATIENT RELEVANT IMPLANT DATA REVIEWED: Not Applicable PATIENT PRESENTS WITH AN IMPLANTABLE OR ATTACHED IMPLEMENTATION TECHNICIAN: No RADIOLOGY DEPARTMENT: General X-ray: Exam(s) Completed: Lower Extremity X-Ray(s): Knee, AP / LAT Bilateral PERIPHERAL IV DATA: Not applicable SIGNED BY: RT Julio Cesar(R) August 22, 2024 10:43 AM [facility] 08-22-2024 Note HNO ID: [id number] Author: CONNIE MCCAIN, DO Service: ? Author Type: Physician Type: Progress Notes Filed: 08/22/2024 09:45 Note Text: Oncologic problem(s): 1) IgG lambda multiple myeloma. HPI: The patient is a 74-year-old male with a past medical history significant for type 2 diabetes, high cholesterol, hypertension and right bundle branch block. Patient originally presented to the emergency room at [facility] on 04/19/2022 with new onset of confusion that day which had been worsening. Laboratory work-up significant for hypokalemia. CT of the brain was unremarkable. He was admitted. During hospitalization it was noted that he had been having diarrhea for 6 to 8 weeks. Stool studies were positive for Campylobacter, blood and lactoferrin. C. difficile was negative. CT of the abdomen pelvis on 04/21/2022 noted abnormal pericholecystic edema without gallstones. Renal cysts and colonic diverticulosis were noted. He was found to have elevation of sed rate to 39, CRP 134. His albumin was 2.3. IgA low at 37. He was discharged on azithromycin, potassium and magnesium supplement. He was seen in the outpatient setting for follow-up visit on 07/11/2022. He continued to have one episode of explosive diarrhea daily. This had been going on for about 8 months. CBC on 07/11 showed a white count of 6400. Differential was normal. Hemoglobin 14.9 g/dL. Platelet count 275,000. Chemistries significant for creatinine of 1.29 g/dL. Previously 1.13 g/dL on 04/27/2022. Calcium was 9.3 mg/dL. Total bilirubin, AST, ALT and alkaline phosphatase were normal. LDH was 181. C-reactive protein was less than 2.09. Total protein was 8.8 g/dL. Total IgG was 2462 mg/dL. IgA decreased to 28 mg/dL. IgM normal at 32 mg/dL. On protein electrophoresis, patient was found to have 2M spikes both IgG lambda by immunofixation. For spike was quantitated at 1.2 g/dL and the second was quantitated at 0.6 g/dL. Cytoplasmic and perinuclear ANCA both negative. Atypical p-ANCA negative. Patient described diarrhea as loose, eran stools sometimes explosive typically one bowel movement per day however. He had not observed any blood. Had a colonoscopy December [address] Arteaga. His appetite was normal. He had not lost weight. Denied reflux and nausea. He did get abdominal bloating associated with the diarrhea. He denied musculoskeletal pain. He denied symptoms of sensory neuropathy. He sees an team supervisor once a year for dilated exam. He has not been told he has retinopathy. Recent removal of early melanoma back. Blue nevus right ankle--required WLE--scheduled. PMR--about 15 years ago. Patient underwent colonoscopy on 09/21/2022. Preparation of the colon was fair. -One 6 mm polyp at the ileocecal valve, removed with a hot snare. Resected and retrieved. -One 5 mm polyp in the ascending colon, removed with a hot snare. Resected and retrieved. -Congested mucosa in the descending colon, at the splenic flexure, in the ascending colon and in the cecum. Biopsied. -Diverticulosis in the recto-sigmoid colon, in the sigmoid colon and in the descending colon. -Stool in the rectum, in the sigmoid colon, in the descending colon and at the hepatic flexure. Fluid aspiration performed. -The examined portion of the ileum was normal. Biopsied. Pathology: A. Ileocecal valve polyp, biopsy: -Consistent with fibrolipomatous polyp. -See comment. B. Small bowel, biopsy: -No pathologic change. C. Cecum, biopsy: -Mild melanosis coli. D. Colon, random biopsy: -Mild melanosis coli. E. Ascending colon polyp, biopsy: -Fragments of tubular adenoma. B, C, D AND E - No congophilic material identified. Congo red stain with matched control is negative. ADDENDUM C AND D. No congophilic material is noted in these biopsies on light and polarized microscopy. Congo Red stain with matched control was used in the evaluation of this case. He was diagnosed with pancreatic insufficiency and was to start pancreatic enzyme replacement. Patient had a venous duplex ultrasound on 12/16/2022 for right leg pain. That study demonstrated no evidence of DVT in the right leg. He developed chest pain and increasing shortness of breath. Went to the ED on 01/16/2023. PE protocol chest CT demonstrated multiple bilateral pulmonary emboli involving the distal portion of both the right and left main pulmonary arteries as well as branches of the upper and lower lobe pulmonary arteries, more prominent on the right side. Platelet count was 67,000. Patient was admitted and placed on unfractionated heparin with bolus. The next morning platelet count was 62,000. He was rotated to apixaban and discharged. Echocardiogram performed 01/17/2023 demonstrated normal LV size. There was moderate concentric LVH. Left ventricular systolic function was normal with an estimated ejection fraction at 60%. Th (more content not included)... [facility] 08-22-2024 History of Present illness Narrative Oncologic problem(s): 1) IgG lambda multiple myeloma. HPI: The patient is a 74-year-old male with a past medical history significant for type 2 diabetes, high cholesterol, hypertension and right bundle branch block. Patient originally presented to the emergency room at [facility] on 04/19/2022 with new onset of confusion that day which had been worsening. Laboratory work-up significant for hypokalemia. CT of the brain was unremarkable. He was admitted. During hospitalization it was noted that he had been having diarrhea for 6 to 8 weeks. Stool studies were positive for Campylobacter, blood and lactoferrin. C. difficile was negative. CT of the abdomen pelvis on 04/21/2022 noted abnormal pericholecystic edema without gallstones. Renal cysts and colonic diverticulosis were noted. He was found to have elevation of sed rate to 39, CRP 134. His albumin was 2.3. IgA low at 37. He was discharged on azithromycin, potassium and magnesium supplement. He was seen in the outpatient setting for follow-up visit on 07/11/2022. He continued to have one episode of explosive diarrhea daily. This had been going on for about 8 months. CBC on 07/11 showed a white count of 6400. Differential was normal. Hemoglobin 14.9 g/dL. Platelet count 275,000. Chemistries significant for creatinine of 1.29 g/dL. Previously 1.13 g/dL on 04/27/2022. Calcium was 9.3 mg/dL. Total bilirubin, AST, ALT and alkaline phosphatase were normal. LDH was 181. C-reactive protein was less than 2.09. Total protein was 8.8 g/dL. Total IgG was 2462 mg/dL. IgA decreased to 28 mg/dL. IgM normal at 32 mg/dL. On protein electrophoresis, patient was found to have 2M spikes both IgG lambda by immunofixation. For spike was quantitated at 1.2 g/dL and the second was quantitated at 0.6 g/dL. Cytoplasmic and perinuclear ANCA both negative. Atypical p-ANCA negative. Patient described diarrhea as loose, eran stools sometimes explosive typically one bowel movement per day however. He had not observed any blood. Had a colonoscopy December [address] Arteaga. His appetite was normal. He had not lost weight. Denied reflux and nausea. He did get abdominal bloating associated with the diarrhea. He denied musculoskeletal pain. He denied symptoms of sensory neuropathy. He sees an team supervisor once a year for dilated exam. He has not been told he has retinopathy. Recent removal of early melanoma back. Blue nevus right ankle--required WLE--scheduled. PMR--about 15 years ago. Patient underwent colonoscopy on 09/21/2022. Preparation of the colon was fair. -One 6 mm polyp at the ileocecal valve, removed with a hot snare. Resected and retrieved. -One 5 mm polyp in the ascending colon, removed with a hot snare. Resected and retrieved. -Congested mucosa in the descending colon, at the splenic flexure, in the ascending colon and in the cecum. Biopsied. -Diverticulosis in the recto-sigmoid colon, in the sigmoid colon and in the descending colon. -Stool in the rectum, in the sigmoid colon, in the descending colon and at the hepatic flexure. Fluid aspiration performed. -The examined portion of the ileum was normal. Biopsied. Pathology: A. Ileocecal valve polyp, biopsy: -Consistent with fibrolipomatous polyp. -See comment. B. Small bowel, biopsy: -No pathologic change. C. Cecum, biopsy: -Mild melanosis coli. D. Colon, random biopsy: -Mild melanosis coli. E. Ascending colon polyp, biopsy: -Fragments of tubular adenoma. B, C, D & E - No congophilic material identified. Congo red stain with matched control is negative. ADDENDUM C & D. No congophilic material is noted in these biopsies on light and polarized microscopy. Congo Red stain with matched control was used in the evaluation of this case. He was diagnosed with pancreatic insufficiency and was to start pancreatic enzyme replacement. Patient had a venous duplex ultrasound on 12/16/2022 for right leg pain. That study demonstrated no evidence of DVT in the right leg. He developed chest pain and increasing shortness of breath. Went to the ED on 01/16/2023. PE protocol chest CT demonstrated multiple bilateral pulmonary emboli involving the distal portion of both the right and left main pulmonary arteries as well as branches of the upper and lower lobe pulmonary arteries, more prominent on the right side. Platelet count was 67,000. Patient was admitted and placed on unfractionated heparin with bolus. The next morning platelet count was 62,000. He was rotated to apixaban and discharged. Echocardiogram performed 01/17/2023 demonstrated normal LV size. There was moderate concentric LVH. Left ventricular systolic function was normal with an estimated ejection fraction at 60%. There was stage I diastolic dysfunction. The pulmonary artery systolic pressure was 58 mmHg. The global longitudinal strain was -11.5% (abnormal). The global longitudinal strain was moderately abnormal. (Previous echocardiogram 04/20/2022 demonstrated right ventricular systolic pressure estimated at 22 mmHg. Diastolic function was indeterminate. Right ventricular strain was not determined). His chest pain has improved. He is still short of breath with heavier exertion and sometimes walking from room to room he finds himself breathing heavier. He has been taking apixaban 10 mg twice daily. No bleeding issues. Previous therapy: 1) RVd. Cycle #1 began 11/09/2022. 2) Zometa. 3) ASCT. Transplant Summary: BMT Information ASCR infused on 06/02/2023 Planned Proposed Protocols: IP BMT AUTO MELPHALAN 200 Planned Preparative Regimen Drug: Melphalan Planned Mobilization Agent: G-CSF, Plerixafor Planned Stem Cell Source: Peripheral blood stem cells BMT Transplant Details # of cells: 6.16 Saw neurology. 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 Scheduled for EMG 01/16. Seen in the ED on 01/27/2024 for an episode of confusion that was secondary to hypoglycemia. Evidently had influenza diagnosed prior to that. Was then admitted for neutropenic fever on 01/31/2024. ANC was 600 at time of admission. Influenza A positive. Stool positive for Campylobacter. Was treated with high-dose Tamiflu secondary to underlying immunocompromise. Discharged on azithromycin 500 mg daily for 14 days. Presents for ongoing oncologic management. Interim history: More pain in both knees. Occasionally right knee gives out. PMH, medications and allergies personally reviewed by me today. Any changes documented in appropriate section. ROS: Constitutional: Denies episodes of fever and night sweats. Neuro: Denies HAMILTON, vertigo, dizziness and imbalance. HEENT: No recent change in voice, vision. Resp: Denies cough, wheeze and hemoptysis. Denies shortness of breath at rest. Denies MACE. CVS: Denies exertional chest pain, PND, orthopnea and LE edema. : Denies dysuria or gross hematuria. Endo: Denies hot flashes. Denies polyuria and polydipsia. Denies heat and cold intolerance. Musculoskeletal: See HPI. Derm: Denies rash. Denies jaundice and diffuse pruritis. Heme: Denies unusual bleeding and unexplained bruising. Psych: Normal mood. PHYSICAL EXAM: Vitals: Blood pressure 120/70, pulse 68, temperature 37.2 C (98.9 F), temperature source Temporal, weight 83.9 kg (185 lb), SpO2 99%. Well-appearing and in no acute distress. EYES: Sclerae are anicteric bilaterally. LYMPHATIC: There is no palpable cervical or supraclavicular adenopathy. ABDOMEN: The abdomen is nondistended. Extremities: No swelling or edema. SKIN: No jaundice. NEUROLOGIC: human resource intern II-XII are grossly intact. Diminished hip flexor strength right leg. Patellar DTRs remain slightly diminished, but symmetric. MS: No swelling or tenderness of knees. Somewhat stiff to flexion. LABS: Latest Ref Rng 06/27/2024 WBC 3.70 - 11.00 k/uL 2.99 (L) RBC 4.20 - 6.00 m/uL 4.26 Hemoglobin 13.0 - 17.0 g/dL 13.3 Hematocrit 39.0 - 51.0 % 39.2 MCV 80.0 - 100.0 fL 92.0 MCH 26.0 - 34.0 pg 31.2 MCHC 30.5 - 36.0 g/dL 33.9 RDW-CV 11.5 - 15.0 % 13.2 Platelet Count 150 - 400 k/uL 157 MPV 9.0 - 12.7 fL 9.3 Neut% % 46.1 Abs Neut (ANC) 1.45 - 7.50 k/uL 1.38 (L) Lymph% % 34.8 Abs Lymph 1.00 - 4.00 k/uL 1.04 Morton% % 10.7 Abs Morton <0.87 k/uL 0.32 Eosin% % 6.4 Abs Eosin <0.46 k/uL 0.19 Baso% % 1.3 Abs Baso <0.11 k/uL 0.04 Immature Gran % % 0.7 IMMATURE GRANS (ABS) <0.10 k/uL <0.03 NRBC /100 WBC 0.0 Absolute nRBC <0.01 k/uL <0.01 DTYPE Auto ASSESSMENT/PLAN: (C90.00) Multiple myeloma not having achieved remission (HCC) (primary encounter diagnosis) Assessment: -The patient is a 73-year-old male has a past medical history significant for diabetes and chronic diarrhea that was characterized by one explosive watery stool daily (was diagnosed with pancreatic insufficiency). Was hospitalized 03/2022 when diarrhea significantly worsened and he was diagnosed with and treated for Campylobacter infection. During that evaluation, was found to have two IgG lambda monoclonal antibodies. He did not have hypercalcemia or anemia but had elevated serum creatinine (which may have been related to volume depletion when hospitalized for diarrhea and mental status change). 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 Low to intermediate risk disease (PCs 20%). -Imaging--no lytic lesions on whole body CT; Liver cyst and splenic nodule (6-12 month f/u MRI recommended). -Bone marrow negative for amyoid. -Colonic biopsies negative for amyloid. -Subsequent MRI of spine and pelvis revealed two T2 hyperintense foci in the pelvis, one in the left sacral rebeka and one in the right ischium. -FISH panel revealed (11;14) (q13;q32) (IGH/CCND1) translocation consistent with the presence of a plasma cell neoplasm associated with standard risk disease. -R-ISS stage I (serum beta microglobulin less than 3.5 mg/L and serum albumin greater than 3.5 g/dL; standard risk disease by FISH testing as outlined above and serum LDH less than upper limit of normal). -VGPR as of 11/2023. -Reviewed the results of the bone marrow biopsy. Core was evaluated for plasma cells. They comprise less than 5%. Distributed single cells. Appear to be polytypic with kappa and lambda light chain staining. Flow the aspirate was negative. -Reviewed results from 07/25. Continues to maintain VGPR. -Reviewed CBC. Counts allow continued therapy. -ECOG currently 1. 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 Plan: -Continue lenalidomide at current dose.. -CBC, chemistries and serum protein electrophoresis and immunofixation as well as 24-hour urine collection for electrophoresis and immunofixation monthly per protocol. Supportive care: ID: Plan: -Continue acyclovir. Heme: -As above. Skeletal: -Only lytic lesions observed over those in the pelvic bones on MRI initially. -Seems leg pain may be related to knees Plan: -Plain films knees b/l. -Zometa every 3 months. Chronic PE. Assessment: -B/L PE on ASA prophylaxis. -Previous evidence of pulmonary hypertension on echocardiogram. -Tolerating apixaban well. Plan: -Continue apixaban. 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 Likely a consequence of nerve impingement as evidenced by previous MRI and not related to therapy for myeloma. Subsequent EMG confirmed this. Portions of this documentation were copied and pasted from previous office visit notes in order to provide a cohesive continuity of the history. The note has been reviewed and edited and updated as necessary. Connie Mccain DO documented in this encounter [facility] 08-20-2024 Telephone encounter Note [employer] auth# [id number]. Please send electronically. Betsy Henriquez LPN [facility] 08-20-2024 Miscellaneous Notes [employer] auth# [id number]. Please send electronically. Betsy Henriquez LPN Unable to obtain [employer] auth until around 08/22/2024. Betsy Henriquez LPN documented in this encounter [facility] 08-19-2024 Telephone encounter Note Unable to obtain [employer] auth until around 08/22/2024. Betsy Henriquez LPN [facility] 07-25-2024 Note HNO ID: [id number] Author: TEMO GILL RN Service: ? Author Type: Registered Nurse Type: Progress Notes Filed: 08/26/2024 14:34 Note Text: IRB # [id number], [facility]# SWOG [id number] study entitled Phase III Study of Daratumumab/rHuPH20 (NSC- [id number]) + Lenalidomide or Lenalidomide as Post-Autologous Stem Cell Transplant Maintenance Therapy in Patients with Multiple Myeloma (MM) Using Minimal Residual Disease to Direct Therapy Duration (DRAMMATIC Study). Registration Information: Informed Consent Signed 01/03/2023 Registered Step 1 01/06/2023 Informed Consent Signed Step 2 07/22/2023 Randomization Date: 08/18/2023 Addendum 11/16/2023 Treatment Arm: TAC- 1 Lenalidomide Study ID [id number] Consent to optional samples Yes Study Status Active Patient was here for Cycle 13 to see Bright Thao APRN, CNP. Discussed the results of Bone Marrow Biopsy per conversation with Connie Mccain D.O. All of the patients and his 's questions were answered at this time. Patient doing much better overall per family and patient. The patient saw ENT for hearing aids. Patient saw neurologist and has some follow-up exams. Treatment Plan: Treatment Previous Cycle Cycle Current Start Date Frequency End date Lenalidomide Cycle 1 Day 1 08/24/2023 Dose Reduced 05/12/2024 5mg Cycle 12 06/27/2024-07/24/2024 = 100% Cycle 13 07/25/2024 -08/21/2024 10/19/2023 Daily, Cycle every 28 days Clinical Trial Specific Testing Test Dates Completed Due Date Bone Marrow Biopsy CTD 07/24/2023 Baseline Step 2 [x] 07/18/2024 12 months post Step 2 [] 07/24/2025 24 months post Step 2 [] 07/24/2026 36 months post Step 2 [] 07/24/2027 48 months post Step 2 [] QOLs PRO-CTCAE 08/17/2023 (Baseline) [x] 08/24/2023 (Cycle 1) [x] 09/21/2023 (Cycle 2) [x] 10/19/2023 (Cycle 3) [x] 11/16/2023 (Cycle 4) [x] 12/14/2023 (Cycle 5) [x] 01/11/2024 (Cycle 6) [x] 02/08/2024 (Cycle 7) [x] 03/07/2024 (Cycle 8) [x] 04/04/2024 (Cycle 9) [x] 05/02/2024 (Cycle 10) [x] 05/29/2024 (Cycle 11) [x] 06/27/2024 (Cycle 12) [x] 07/25/2024 (Cycle 13) and annual PROMIS-29 and Intolerance [x] Day 1 of every cycle Baseline Weight (08/24/2023 date) 80.7 kg Current Weight 84.7 kg Creatinine Clearance 58.4 ml/min ECOG per ECOG- 1 Bone Marrow - Plasma Cell % Free Light Chains M Protein Date Size (mm) Date [place] Lambda * IGG Date Serum Urine Diagnosis 08/24/2022 20% Diagnosis 10/26/2022 11.7 43.5 Diagnosis 10/26/2022 1.12 M protein present Baseline 07/30/2023 Less than 5%* Baseline 08/07/2023 4.7 2.5 Enrollment 07/31/2023 Cycle 1 0.22 0.00 08/24/2023 Cycle 1 4.1* 2.4* 08/24/2023 Cycle 1 0.28 0.00 09/21/2023 Cycle 2 11.7 8.7 09/21/2023 Cycle 2 0.17 0.01 10/19/2023 Cycle 3 15.5 10.5 10/19/2023 Cycle 3 0.16 0.01 11/16/2023 Cycle 4 17.4 21.4 11/16/2023 Cycle 4 0.20 0.00 12/14/2023 Cycle 5 19.4 23.1 12/14/2023 Cycle 5 0.00* 0.00 01/11/2024 Cycle 6 25.8 19.4 01/11/2024 Cycle 6 0.15 0.00 02/08/2024 Cycle 7 24.2 20.4 02/08/2024 Cycle 7 0.00* 0.00 03/07/2024 Cycle 8 22.0 15.3 03/07/2024 Cycle 8 0.23 0.0 04/04/2024 Cycle 9 22.4 17.5 04/04/2024 Cycle 9 0.24 0.00 05/02/2024 Cycle 10 23.2 16.5 05/02/2024 Cycle 10 0.00* 0.00 05/29/2024 Cycle 11 23.7 15.3 05/29/2024 Cycle 11 0.00* 0.00 06/27/2024 Cycle 12 27.7 19.3 06/27/2024 Cycle 12 0.25 0.00 07/25/2024 Cycle 13 37.8 21.5 07/25/2024 Cycle 13 0.19 0.00 Lowest/Jacque = * 07/25/24 Weight 84.7 kg (186 lb 11.7 oz) BSA 0 BMI 0 Temp 36.6 ?C (97.8 ?F) Pulse 67 BP 131/63 SpO2 98 % Drug Accountability/Education - Completed on 07/25/2024. Patient given Cycle 13 diary. Patient did return cycle 12 - reviewed edits with patient. Use of the study medication diary and dosing instructions were reviewed with the patient. Patient verbalizes understanding of dosing of Revlimid: Capsules should be taken whole, with water, once daily (patient takes at HS). If a dose is missed, and it has been less than 12 hours since the preceding dose, the patient should take lenalidomide as soon as the patient remembers. If it has been more than 12 hours, the patient should skip the missed dose. Patient took pills for the cycle - determining 100% compliance Patient receives drug from a private pharmacy. Lenalidomide Education and Counseling completed. Patient counseled on potential exposure to lenalidomide by Bright, engage in abstinence or use a condom when engaging in sexual contact with WOCBP, notify study doctor if female partner becomes , never share drug with anyone else, not to donate blood, semen, or sperm while taking drug and for 28 days after. Concomitant medications reviewed per protocol: Yes Patient reported changes to medication list: No changes since last visit. Current medications: Current use of anticoagulants: YES (see medications below if applicable) Anticoagulants: Eliquis 5 mg Current use of herba (more content not included)... [facility] 07-25-[facility] History of Present illness Narrative IRB # [id number], [facility]# SWOG [id number] study entitled Phase III Study of Daratumumab/rHuPH20 (NSC- [id number]) + Lenalidomide or Lenalidomide as Post-Autologous Stem Cell Transplant Maintenance Therapy in Patients with Multiple Myeloma (MM) Using Minimal Residual Disease to Direct Therapy Duration (DRAMMATIC Study). Registration Information: Informed Consent Signed 01/03/2023 Registered Step 1 01/06/2023 Informed Consent Signed Step 2 07/22/2023 Randomization Date: 08/18/2023 Addendum 11/16/2023 Treatment Arm: TAC- 1 Lenalidomide Study ID [id number] Consent to optional samples Yes Study Status Active Patient was here for Cycle 13 to see Bright Thao APRN, CNP. Discussed the results of Bone Marrow Biopsy per conversation with Connie Mccain D.O. All of the patients and his 's questions were answered at this time. Patient doing much better overall per family and patient. The patient saw ENT for hearing aids. Patient saw neurologist and has some follow-up exams. Treatment Plan: Treatment Previous Cycle Cycle Current Start Date Frequency End date Lenalidomide Cycle 1 Day 1 08/24/2023 Dose Reduced 05/12/2024 5mg Cycle 12 06/27/2024-07/24/2024 = 100% Cycle 13 07/25/2024 -09/18/2024 10/19/2023 Daily, Cycle every 28 days Clinical Trial Specific Testing Test Dates Completed Due Date Bone Marrow Biopsy CTD 07/24/2023 Baseline Step 2 [x] 07/18/2024 12 months post Step 2 [] 07/24/2025 24 months post Step 2 [] 07/24/2026 36 months post Step 2 [] 07/24/2027 48 months post Step 2 [] QOLs PRO-CTCAE 08/17/2023 (Baseline) [x] 08/24/2023 (Cycle 1) [x] 09/21/2023 (Cycle 2) [x] 10/19/2023 (Cycle 3) [x] 11/16/2023 (Cycle 4) [x] 12/14/2023 (Cycle 5) [x] 01/11/2024 (Cycle 6) [x] 02/08/2024 (Cycle 7) [x] 03/07/2024 (Cycle 8) [x] 04/04/2024 (Cycle 9) [x] 05/02/2024 (Cycle 10) [x] 05/29/2024 (Cycle 11) [x] 06/27/2024 (Cycle 12) [x] 07/25/2024 (Cycle 13) and annual PROMIS-29 and Intolerance [x] Day 1 of every cycle Baseline Weight (08/24/2023 date) 80.7 kg Current Weight 84.7 kg Creatinine Clearance 58.4 ml/min ECOG per ECOG- 1 Bone Marrow - Plasma Cell % Free Light Chains M Protein Date Size (mm) Date [place] Lambda * IGG Date Serum Urine Diagnosis 08/24/2022 20% Diagnosis 10/26/2022 11.7 43.5 Diagnosis 10/26/2022 1.12 M protein present Baseline 07/30/2023 Less than 5%* Baseline 08/07/2023 4.7 2.5 Enrollment 07/31/2023 Cycle 1 0.22 0.00 08/24/2023 Cycle 1 4.1* 2.4* 08/24/2023 Cycle 1 0.28 0.00 09/21/2023 Cycle 2 11.7 8.7 09/21/2023 Cycle 2 0.17 0.01 10/19/2023 Cycle 3 15.5 10.5 10/19/2023 Cycle 3 0.16 0.01 11/16/2023 Cycle 4 17.4 21.4 11/16/2023 Cycle 4 0.20 0.00 12/14/2023 Cycle 5 19.4 23.1 12/14/2023 Cycle 5 0.00* 0.00 01/11/2024 Cycle 6 25.8 19.4 01/11/2024 Cycle 6 0.15 0.00 02/08/2024 Cycle 7 24.2 20.4 02/08/2024 Cycle 7 0.00* 0.00 03/07/2024 Cycle 8 22.0 15.3 03/07/2024 Cycle 8 0.23 0.0 04/04/2024 Cycle 9 22.4 17.5 04/04/2024 Cycle 9 0.24 0.00 05/02/2024 Cycle 10 23.2 16.5 05/02/2024 Cycle 10 0.00* 0.00 05/29/2024 Cycle 11 23.7 15.3 05/29/2024 Cycle 11 0.00* 0.00 06/27/2024 Cycle 12 27.7 19.3 06/27/2024 Cycle 12 0.25 0.00 07/25/2024 Cycle 13 37.8 21.5 07/25/2024 Cycle 13 0.19 0.00 Lowest/Jacque = * 07/25/24 Weight 84.7 kg (186 lb 11.7 oz) BSA 0 BMI 0 Temp 36.6 C (97.8 F) Pulse 67 BP 131/63 SpO2 98 % Drug Accountability/Education - Completed on 07/25/2024. Patient given Cycle 13 diary. Patient did return cycle 12 - reviewed edits with patient. Use of the study medication diary and dosing instructions were reviewed with the patient. Patient verbalizes understanding of dosing of Revlimid: Capsules should be taken whole, with water, once daily (patient takes at HS). If a dose is missed, and it has been less than 12 hours since the preceding dose, the patient should take lenalidomide as soon as the patient remembers. If it has been more than 12 hours, the patient should skip the missed dose. Patient took 28 pills for the cycle - determining 100% compliance Patient receives drug from a private pharmacy. Lenalidomide Education and Counseling completed. Patient counseled on potential exposure to lenalidomide by Bright, engage in abstinence or use a condom when engaging in sexual contact with WOCBP, notify study doctor if female partner becomes , never share drug with anyone else, not to donate blood, semen, or sperm while taking drug and for 28 days after. Concomitant medications reviewed per protocol: Yes Patient reported changes to medication list: No changes since last visit. Current medications: Current use of anticoagulants: YES (see medications below if applicable) Anticoagulants: Eliquis 5 mg Current use of herbal preparations or medications: No Prophylactic shingles medication: Acyclovir 400 mg Current Outpatient Medications Medication Sig Start/Stop Use acyclovir (ZOVIRAX) 400 mg tablet Take 1 tablet by mouth twice daily. 05/01/2023 Prophylactic shingles ondansetron (ZOFRAN) 8 mg tablet Take 1 tablet by mouth every 8 hours as needed for nausea/vomiting. 10/26/2022 PRN Nausea clonazePAM (KLONOPIN) 0.5 mg tablet Take 0.5 mg by mouth once daily. 07/29/2023 Anxiety glimepiride (AMARYL) 4 mg tablet Take 2 capsules by mouth in AM & 1 capsule in PM. >5 years Type 2 amLODIPine (NORVASC) 5 mg tablet Take 5 mg by mouth once daily. 02/10/2021 Hypertension atorvastatin (LIPITOR) 10 mg tablet Take 10 mg by mouth once daily. 02/10/2021 Cholesterol losartan (COZAAR) 50 mg tablet Take 50 mg by mouth once daily. 02/10/2021 Hypertension Loperamide (Imodium Oral) Take 2 tablet by mouth as needed >5 years Diarrhea Sildenafil (Viagra) 50 mg tablet Take 50 mg by mouth as needed. >10 years ED Eliquis 5 mg tablet Take 1 tablet by mouth twice daily 03/23/2023 Preventative -blood thinner Melatonin 5 mg Take 1 tablet at bedtime 03/23/2023 Insomnia Revlimid 10 mg Take 1 capsule daily in the morning 08/24/2023 MM treatment Linzess 72 mcg Take 1 capsule for constipation symptoms once a day as needed for constipation 12/31/2023 Constipation Azithromycin (ZITHROMAX) 500 mg tablet Take 1 tablet by mouth daily 02/02/2024 Completed 02/05/2024 Antibiotic No current facility-administered medications for this visit. Medical History: PAST MEDICAL HISTORY Diagnosis Date Arthritis Treated with medication Chronic diarrhea Resolved and now constipation Diabetes mellitus (HCC) Treated with medication Essential hypertension Treated with medication Mixed hyperlipidemia Treated with medication PAST MEDICAL HISTORY Diagnosis Date Arthritis Treated with medication Chronic diarrhea Resolved Malignant melanoma (HCC) On back removed - precancerous and 06/2022 non cancerous Mixed hyperlipidemia Treated with medication Multiple myeloma not having achieved remission (HCC) Treated with medication Primary hypertension Treated with medication Pulmonary embolism (HCC) Treated with medication Right bundle branch block Treated with medication Type 2 diabetes mellitus, without long-term current use of insulin (HCC) Treated with medication Surgical History: PAST SURGICAL HISTORY Procedure Laterality Date REPAIR INCISIONAL HERNIA,REDUCIBLE Resolved 8th grade SKIN BX, 1 LESION 06/2022 non cancerous Baseline Toxicities per CTCAE v. 5: All predate therapy, are chronic conditions and will not be actively followed unless they worsen during the clinical trial. Hyperglycemia; Grade 1: Start Date: >5 years PRIOR TO STUDY Drugs to Treat: Glimepiride Action Required: None Outcome: Ongoing. (Chronic) Diarrhea; Grade 1: INTERMITTENT Start Date: >5 years PRIOR TO STUDY Drugs to Treat: Imodium Action Required: None Outcome: Ongoing. Anemia; Grade 1: Start Date: Intermittent PRIOR TO STUDY 07/24/2023 RESOLVED: 08/24/2023 but Grade 1 again 09/21/2023 Drugs to Treat: None. Action Required: None Outcome: Ongoing Aspartate aminotransferase decreased; Grade 1: Start Date: Intermittent PRIOR TO STUDY Drugs to Treat: None. Action Required: None Outcome: Ongoing Alanine aminotransferase decreased; Grade 1: Start Date: Intermittent PRIOR TO STUDY 07/24/2023 STOPPED:11/16/2023 Drugs to Treat: None. Action Required: None Outcome: RESOLVED Insomnia; Grade 1: Start Date: Intermittent PRIOR TO STUDY 07/21/2023 Drugs to Treat: None. Action Required: None Outcome: Ongoing. Weight Loss; Grade 1: 3.5 Percent Increase since - Intentional Start Date: Intentional Loss - PRIOR TO STUDY 07/21/2023 RESOLVED:11/16/2023 Drugs to Treat: None. Action Required: None Outcome: RESOLVED Hypophosphatemia:Start Date: PRIOR TO STUDY 07/24/2023 STOPPED:08/24/2023 Drugs to Treat: None. Action Required: None Outcome: RESOLVED Lymphocyte Count Decreased; Grade 1: Start Date: Intermittent PRIOR TO STUDY- Possibly related to Revlimid and Drugs to Treat: None. Action Required: None Outcome: Ongoing Toxicities per CTCAE v. 5: White Blood Cell Count Decreased; Grade 1: Related to Revlimid and Influenza Start Date: 09/21/2023 Increased: 07/18/2024 Drugs to Treat: None. Action Required: None Outcome: ONGOING Bone Pain: Grade 1; Bilateral Thigh: Unlikely related to Revlimid Start Date: PRIOR TO STUDY 08/24/2023 INCREASED 10/19/2023 Decreased to almost resolved: 02/08/2024 Drugs to Treat: None. Action Required: EMG and PT Outcome: Improving drastically Neutrophil Count Decreased; Grade 1: Possibly Related to Revlimid and Vaccines Start Date: 04/04/2024 Drugs to Treat: None. Action Required:None Outcome:Ongoing Memory Impairment; Grade 1: Unrelated to Revlimid Start Date: 02/08/2024 witnessed by RN but reported as PRIOR TO STUDY recently by patients Drugs to Treat: NoneAction Required: None Outcome: Ongoing Creatinine Increased; Grade 1: Start Date: 06/27/2024 Drugs to Treat: None. Action Required: None Outcome: Ongoing Patient turned in a 24 hour urine: Yes Chart sent the overseeing physician to review CTCAE toxicities. Patient knows to RTC 08/22/2024 for C14. Patient knows to call in the interim for any questions or concerns. Patient has contact information for Uma Gill Research Nurse and Dr. Mccain, along with the office number. Patient meets all Criteria for Study Participation: Yes REID Bynum, RN Clinical Research Nurse [phone] documented in this encounter [facility] 07-25-2024 Note HNO ID: [id number] Author: BRIGHT THAO APRN.PATTERNMAKER [employer] Service: ? Author Type: Nurse Practitioner Type: Progress Notes Filed: 07/26/2024 11:07 Note Text: Chief Complaint Patient presents with: Established Patient HPI: Oseas Joseph is a 74 year old male who presents here today for follow up MM. Per Dr. Mccain's previous note: H/o type 2 diabetes, high cholesterol, hypertension and right bundle branch block. Patient originally presented to the emergency room at [facility] on 04/19/2022 with new onset of confusion that day which had been worsening. Laboratory work-up significant for hypokalemia. CT of the brain was unremarkable. He was admitted. During hospitalization it was noted that he had been having diarrhea for 6 to 8 weeks. Stool studies were positive for Campylobacter, blood and lactoferrin. C. difficile was negative. CT of the abdomen pelvis on 04/21/2022 noted abnormal pericholecystic edema without gallstones. Renal cysts and colonic diverticulosis were noted. He was found to have elevation of sed rate to 39, CRP 134. His albumin was 2.3. IgA low at 37. He was discharged on azithromycin, potassium and magnesium supplement. He was seen in the outpatient setting for follow-up visit on 07/11/2022. He continued to have one episode of explosive diarrhea daily. This had been going on for about 8 months. CBC on 07/11 showed a white count of 6400. Differential was normal. Hemoglobin 14.9 g/dL. Platelet count 275,000. Chemistries significant for creatinine of 1.29 g/dL. Previously 1.13 g/dL on 04/27/2022. Calcium was 9.3 mg/dL. Total bilirubin, AST, ALT and alkaline phosphatase were normal. LDH was 181. C-reactive protein was less than 2.09. Total protein was 8.8 g/dL. Total IgG was 2462 mg/dL. IgA decreased to 28 mg/dL. IgM normal at 32 mg/dL. On protein electrophoresis, patient was found to have 2M spikes both IgG lambda by immunofixation. For spike was quantitated at 1.2 g/dL and the second was quantitated at 0.6 g/dL. Cytoplasmic and perinuclear ANCA both negative. Atypical p-ANCA negative. Patient described diarrhea as loose, eran stools sometimes explosive typically one bowel movement per day however. He had not observed any blood. Had a colonoscopy December [address] Arteaga. His appetite was normal. He had not lost weight. Denied reflux and nausea. He did get abdominal bloating associated with the diarrhea. He denied musculoskeletal pain. He denied symptoms of sensory neuropathy. He sees an team supervisor once a year for dilated exam. He has not been told he has retinopathy. Recent removal of early melanoma back. Blue nevus right ankle--required WLE--scheduled. PMR--about 15 years ago. Patient underwent colonoscopy on 09/21/2022. Preparation of the colon was fair. -One 6 mm polyp at the ileocecal valve, removed with a hot snare. Resected and retrieved. -One 5 mm polyp in the ascending colon, removed with a hot snare. Resected and retrieved. -Congested mucosa in the descending colon, at the splenic flexure, in the ascending colon and in the cecum. Biopsied. -Diverticulosis in the recto-sigmoid colon, in the sigmoid colon and in the descending colon. -Stool in the rectum, in the sigmoid colon, in the descending colon and at the hepatic flexure. Fluid aspiration performed. -The examined portion of the ileum was normal. Biopsied. Pathology: A. Ileocecal valve polyp, biopsy: -Consistent with fibrolipomatous polyp. -See comment. B. Small bowel, biopsy: -No pathologic change. C. Cecum, biopsy: -Mild melanosis coli. D. Colon, random biopsy: -Mild melanosis coli. E. Ascending colon polyp, biopsy: -Fragments of tubular adenoma. B, C, D AND E - No congophilic material identified. Congo red stain with matched control is negative. ADDENDUM C AND D. No congophilic material is noted in these biopsies on light and polarized microscopy. Congo Red stain with matched control was used in the evaluation of this case. He was diagnosed with pancreatic insufficiency and was to start pancreatic enzyme replacement. Patient had a venous duplex ultrasound on 12/16/2022 for right leg pain. That study demonstrated no evidence of DVT in the right leg. He developed chest pain and increasing shortness of breath. Went to the ED on 01/16/2023. PE protocol chest CT demonstrated multiple bilateral pulmonary emboli involving the distal portion of both the right and left main pulmonary arteries as well as branches of the upper and lower lobe pulmonary arteries, more prominent on the right side. Platelet count was 67,000. Patient was admitted and placed on unfractionated heparin with bolus. The next morning platelet count was 62,000. He was rotated to apixaban and discharged. Echocardiogram performed 01/17/2023 demonstrated normal LV size. There was moderate concentric LVH. Left ventricular sys (more content not included)... [facility] 07-25-[facility] History of Present illness Narrative Chief Complaint Patient presents with: Established Patient HPI: Oseas Joseph is a 74 year old male who presents here today for follow up MM. Per Dr. Mccain's previous note: H/o type 2 diabetes, high cholesterol, hypertension and right bundle branch block. Patient originally presented to the emergency room at [facility] on 04/19/2022 with new onset of confusion that day which had been worsening. Laboratory work-up significant for hypokalemia. CT of the brain was unremarkable. He was admitted. During hospitalization it was noted that he had been having diarrhea for 6 to 8 weeks. Stool studies were positive for Campylobacter, blood and lactoferrin. C. difficile was negative. CT of the abdomen pelvis on 04/21/2022 noted abnormal pericholecystic edema without gallstones. Renal cysts and colonic diverticulosis were noted. He was found to have elevation of sed rate to 39, CRP 134. His albumin was 2.3. IgA low at 37. He was discharged on azithromycin, potassium and magnesium supplement. He was seen in the outpatient setting for follow-up visit on 07/11/2022. He continued to have one episode of explosive diarrhea daily. This had been going on for about 8 months. CBC on 07/11 showed a white count of 6400. Differential was normal. Hemoglobin 14.9 g/dL. Platelet count 275,000. Chemistries significant for creatinine of 1.29 g/dL. Previously 1.13 g/dL on 04/27/2022. Calcium was 9.3 mg/dL. Total bilirubin, AST, ALT and alkaline phosphatase were normal. LDH was 181. C-reactive protein was less than 2.09. Total protein was 8.8 g/dL. Total IgG was 2462 mg/dL. IgA decreased to 28 mg/dL. IgM normal at 32 mg/dL. On protein electrophoresis, patient was found to have 2M spikes both IgG lambda by immunofixation. For spike was quantitated at 1.2 g/dL and the second was quantitated at 0.6 g/dL. Cytoplasmic and perinuclear ANCA both negative. Atypical p-ANCA negative. Patient described diarrhea as loose, eran stools sometimes explosive typically one bowel movement per day however. He had not observed any blood. Had a colonoscopy [address] Arteaga. His appetite was normal. He had not lost weight. Denied reflux and nausea. He did get abdominal bloating associated with the diarrhea. He denied musculoskeletal pain. He denied symptoms of sensory neuropathy. He sees an team supervisor once a year for dilated exam. He has not been told he has retinopathy. Recent removal of early melanoma back. Blue nevus right ankle--required WLE--scheduled. PMR--about 15 years ago. Patient underwent colonoscopy on 09/21/2022. Preparation of the colon was fair. -One 6 mm polyp at the ileocecal valve, removed with a hot snare. Resected and retrieved. -One 5 mm polyp in the ascending colon, removed with a hot snare. Resected and retrieved. -Congested mucosa in the descending colon, at the splenic flexure, in the ascending colon and in the cecum. Biopsied. -Diverticulosis in the recto-sigmoid colon, in the sigmoid colon and in the descending colon. -Stool in the rectum, in the sigmoid colon, in the descending colon and at the hepatic flexure. Fluid aspiration performed. -The examined portion of the ileum was normal. Biopsied. Pathology: A. Ileocecal valve polyp, biopsy: -Consistent with fibrolipomatous polyp. -See comment. B. Small bowel, biopsy: -No pathologic change. C. Cecum, biopsy: -Mild melanosis coli. D. Colon, random biopsy: -Mild melanosis coli. E. Ascending colon polyp, biopsy: -Fragments of tubular adenoma. B, C, D & E - No congophilic material identified. Congo red stain with matched control is negative. ADDENDUM C & D. No congophilic material is noted in these biopsies on light and polarized microscopy. Congo Red stain with matched control was used in the evaluation of this case. He was diagnosed with pancreatic insufficiency and was to start pancreatic enzyme replacement. Patient had a venous duplex ultrasound on 12/16/2022 for right leg pain. That study demonstrated no evidence of DVT in the right leg. He developed chest pain and increasing shortness of breath. Went to the ED on 01/16/2023. PE protocol chest CT demonstrated multiple bilateral pulmonary emboli involving the distal portion of both the right and left main pulmonary arteries as well as branches of the upper and lower lobe pulmonary arteries, more prominent on the right side. Platelet count was 67,000. Patient was admitted and placed on unfractionated heparin with bolus. The next morning platelet count was 62,000. He was rotated to apixaban and discharged. Echocardiogram performed 01/17/2023 demonstrated normal LV size. There was moderate concentric LVH. Left ventricular systolic function was normal with an estimated ejection fraction at 60%. There was stage I diastolic dysfunction. The pulmonary artery systolic pressure was 58 mmHg. The global longitudinal strain was -11.5% (abnormal). The global longitudinal strain was moderately abnormal. (Previous echocardiogram 04/20/2022 demonstrated right ventricular systolic pressure estimated at 22 mmHg. Diastolic function was indeterminate. Right ventricular strain was not determined). His chest pain has improved. He is still short of breath with heavier exertion and sometimes walking from room to room he finds himself breathing heavier. He has been taking apixaban 10 mg twice daily. No bleeding issues. Previous therapy: 1) RVd. Cycle #1 began 11/09/2022. 2) Zometa. 3) ASCT. Transplant Summary: BMT Information ASCR infused on 06/02/2023 Planned Proposed Protocols: IP BMT AUTO MELPHALAN 200 Planned Preparative Regimen Drug: Melphalan Planned Mobilization Agent: G-CSF, Plerixafor Planned Stem Cell Source: Peripheral blood stem cells BMT Transplant Details # of cells: 6.16 Saw neurology. 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 Scheduled for EMG 01/16. Seen in the ED on 01/27/2024 for an episode of confusion that was secondary to hypoglycemia. Evidently had influenza diagnosed prior to that. Was then admitted for neutropenic fever on 01/31/2024. ANC was 600 at time of admission. Influenza A positive. Stool positive for Campylobacter. Was treated with high-dose Tamiflu secondary to underlying immunocompromise. Discharged on azithromycin 500 mg daily for 14 days. No new concerns today. Pt. here today with spouse. Appetite:Good. Wt. up 3# Energy level:Ok. Denies fevers. Mouth:denies sores Resp:denies cough or sob Cardiac:denies chest pain/palpitations GI:denies abd pain, n/v, moving bowels regularly :denies dysuria/hematuria Extrem:denies new pain Neuro:denies symptoms of neuropathy Skin:denies rashes Heme:denies bleeding, on xarelto The ROS is otherwise negative. Past medical history, appointments, medications, allergies reviewed. No changes. EXAM: BP 131/63 Pulse 67 Temp 36.6 C (97.8 F) (Temporal) Wt 84.7 kg (186 lb 11.7 oz) SpO2 98% BMI 24.50 kg/m APPEARANCE Well appearing, alert, in no acute distress, well-hydrated, well nourished. HEART RRR with normal S1 and S2, no murmurs LUNG clear to auscultation LYMPH NODES No cervical lymphadenopathy, No supraclavicular lymphadenopathy, and No axillary lymphadenopathy. ABDOMEN bowel sounds normoactive, soft, non-tender EXTREMITIES No edema NEURO Awake, alert and oriented x 3, Normal gait, and No involuntary motions. SKIN Skin color, texture, turgor normal, no suspicious rashes or lesions LABS: Latest Ref Rng 07/18/2024 07/25/2024 WBC 3.70 - 11.00 k/uL 3.49 (L) 3.23 (L) RBC 4.20 - 6.00 m/uL 3.87 (L) 4.08 (L) Hemoglobin 13.0 - 17.0 g/dL 12.2 (L) 12.7 (L) Hematocrit 39.0 - 51.0 % 36.3 (L) 38.2 (L) MCV 80.0 - 100.0 fL 93.8 93.6 MCH 26.0 - 34.0 pg 31.5 31.1 MCHC 30.5 - 36.0 g/dL 33.6 33.2 RDW-CV 11.5 - 15.0 % 13.8 14.1 Platelet Count 150 - 400 k/uL 171 174 MPV 9.0 - 12.7 fL 9.3 9.5 Neut% % 47.5 42.5 Abs Neut (ANC) 1.45 - 7.50 k/uL 1.66 1.37 (L) Lymph% % 27.5 29.7 Abs Lymph 1.00 - 4.00 k/uL 0.96 (L) 0.96 (L) Morton% % 13.2 13.3 Abs Morton <0.87 k/uL 0.46 0.43 Eosin% % 10.6 12.7 Abs Eosin <0.46 k/uL 0.37 0.41 Baso% % 0.9 1.2 Abs Baso <0.11 k/uL 0.03 0.04 Immature Gran % % 0.3 0.6 IMMATURE GRANS (ABS) <0.10 k/uL <0.03 <0.03 NRBC /100 WBC 0.0 0.0 Absolute nRBC <0.01 k/uL <0.01 <0.01 DTYPE Auto Auto CMP/MM labs: Pending ASSESSMENT/PLAN: 1. Multiple myeloma not having achieved remission (HCC) - ICD9: 203.00, ICD10: C90.00 (primary diagnosis) Per Dr. Mccain's previous note: Assessment: -The patient is a 73-year-old male has a past medical history significant for diabetes and chronic diarrhea that was characterized by one explosive watery stool daily (was diagnosed with pancreatic insufficiency). Was hospitalized 03/2022 when diarrhea significantly worsened and he was diagnosed with and treated for Campylobacter infection. During that evaluation, was found to have two IgG lambda monoclonal antibodies. He did not have hypercalcemia or anemia but had elevated serum creatinine (which may have been related to volume depletion when hospitalized for diarrhea and mental status change). 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 Low to intermediate risk disease (PCs 20%). -Imaging--no lytic lesions on whole body CT; Liver cyst and splenic nodule (6-12 month f/u MRI recommended). -Bone marrow negative for amyoid. -Colonic biopsies negative for amyloid. -Subsequent MRI of spine and pelvis revealed two T2 hyperintense foci in the pelvis, one in the left sacral rebeka and one in the right ischium. -FISH panel revealed (11;14) (q13;q32) (IGH/CCND1) translocation consistent with the presence of a plasma cell neoplasm associated with standard risk disease. -R-ISS stage I (serum beta microglobulin less than 3.5 mg/L and serum albumin greater than 3.5 g/dL; standard risk disease by FISH testing as outlined above and serum LDH less than upper limit of normal). -VGPR as of 11/2023. -Reviewed results from 05/29 . Continues to maintain VGPR. -Reviewed CBC. -ECOG currently 1. 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 Plan: -Continue lenalidomide. -CBC, chemistries and serum protein electrophoresis and immunofixation as well as 24-hour urine collection for electrophoresis and immunofixation monthly per protocol. -No driving for now. He expressed an understanding and agreement. -Consented for bone marrow biopsy. Supportive care: ID: Plan: -Continue acyclovir. Heme: -As above. Skeletal: -Only lytic lesions observed over those in the pelvic bones on MRI initially. Plan: -Zometa every 3 months. Chronic PE. Assessment: -B/L PE on ASA prophylaxis. -Previous evidence of pulmonary hypertension on echocardiogram. -Tolerating apixaban well. Plan: -Continue apixaban. 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 Likely a consequence of nerve impingement as evidenced by previous MRI and not related to therapy for myeloma. Subsequent EMG confirmed this. - Overall tolerating revlimid well. - Reviewed CBC with pt. and spouse. - CMP/MM labs pending. - Continue current medications. - Continue current dose of revlimid. - Follow up as scheduled. - Pt. aware to call office with any questions/concerns. The patient indicates understanding of these issues and agrees with the plan. All documentation from previous visit of 06/27/24-Dr. Mccain was copied and pasted, documentation has been reviewed and edited as necessary for today's visit. Bright Thao APRN.EVELIN documented in this encounter [facility] 07-23-2024 Telephone encounter Note Called patient and and left a voicemail for patients in regards to lab work and appointment with call back information. Temo Gill RN [facility] 07-23-2024 Miscellaneous Notes Called patient and and left a voicemail for patients in regards to lab work and appointment with call back information. Temo Gill RN documented in this encounter [facility] 07-23-2024 Telephone encounter Note [employer] auth #[id number] Prescription Refill Information The patient has been identified by name and date of : Yes Caregiver verified no other encounters exist for this prescription request: Yes Caregiver confirmed with patient/requestor that no other refills are due, in the near future, with this provider at this time: Yes The last office visit in the department: 06/27/2024 Does the patient have a future office visit with this provider/department: Yes Requested Prescriptions Pending Prescriptions Disp Refills REVLIMID 5 mg capsule [Pharmacy Med Name: REVLIMID 5MG CAP] 28 capsule 0 Sig: TAKE 1 CAPSULE BY MOUTH DAILY FOR 28 DAYS Terri Henry LPN July 23, 2024 7:32 AM [facility] 07-23-2024 Miscellaneous Notes [employer] auth #[id number] Prescription Refill Information The patient has been identified by name and date of : Yes Caregiver verified no other encounters exist for this prescription request: Yes Caregiver confirmed with patient/requestor that no other refills are due, in the near future, with this provider at this time: Yes The last office visit in the department: 06/27/2024 Does the patient have a future office visit with this provider/department: Yes Requested Prescriptions Pending Prescriptions Disp Refills REVLIMID 5 mg capsule [Pharmacy Med Name: REVLIMID 5MG CAP] 28 capsule 0 Sig: TAKE 1 CAPSULE BY MOUTH DAILY FOR 28 DAYS Terri Henry LPN July 23, 2024 7:32 AM Unable to obtain [employer] auth until 07/25/2024. Betsy Henriquez LPN documented in this encounter [facility] 07-23-2024 Telephone encounter Note Prescription Refill Information The patient has been identified by name and date of : Yes Caregiver verified no other encounters exist for this prescription request: Yes Caregiver confirmed with patient/requestor that no other refills are due, in the near future, with this provider at this time: Yes The last office visit in the department: 06/27/2024 Does the patient have a future office visit with this provider/department: Yes Requested Prescriptions Pending Prescriptions Disp Refills rivaroxaban (XARELTO) 20 mg tablet 30 tablet 0 Sig: Take 1 tablet by mouth daily with dinner. Terri Henry LPN July 23, 2024 7:26 AM [facility] 07-23-2024 Miscellaneous Notes Prescription Refill Information The patient has been identified by name and date of : Yes Caregiver verified no other encounters exist for this prescription request: Yes Caregiver confirmed with patient/requestor that no other refills are due, in the near future, with this provider at this time: Yes The last office visit in the department: 06/27/2024 Does the patient have a future office visit with this provider/department: Yes Requested Prescriptions Pending Prescriptions Disp Refills rivaroxaban (XARELTO) 20 mg tablet 30 tablet 0 Sig: Take 1 tablet by mouth daily with dinner. Terri Henry LPN July 23, 2024 7:26 AM documented in this encounter [facility] 07-22-2024 Telephone encounter Note Unable to obtain [employer] auth until 07/25/2024. Betsy Henriquez LPN [facility] 07-18-2024 Note HNO ID: [id number] Author: TEMO GILL RN Service: ? Author Type: Registered Nurse Type: Progress Notes Filed: 07/18/2024 15:22 Note Text: IRB # [id number], [facility]# SWOG 1803 study entitled Phase III Study of Daratumumab/rHuPH20 (NSC- [id number]) + Lenalidomide or Lenalidomide as Post-Autologous Stem Cell Transplant Maintenance Therapy in Patients with Multiple Myeloma (MM) Using Minimal Residual Disease to Direct Therapy Duration (DRAMMATIC Study). Registration Information: Informed Consent Signed 01/03/2023 Registered Step 1 01/06/2023 Informed Consent Signed Step 2 07/22/2023 Randomization Date: 08/18/2023 Addendum 11/16/2023 Treatment Arm: TAC- 1 Lenalidomide Study ID [id number] Consent to optional samples Yes Study Status Active Patient was here for bmbX - consented to recent consent addendum - Yes to optional and blood. Patient 12 month Bone Marrow Biopsy Aspirate Lab Collected: July 18, 2024 Drawn at 1:35 PM Shipped to [employer] - Sent [employer] - [id number] Shipped 1 EDTA 3.48 mL - not processed. [facility] [place]. Temo Gill RN [phone] [facility] 07-18-2024 History of Present illness Narrative IRB # [id number], [facility]# SWOG 1803 study entitled Phase III Study of Daratumumab/rHuPH20 (NSC- 081770) + Lenalidomide or Lenalidomide as Post-Autologous Stem Cell Transplant Maintenance Therapy in Patients with Multiple Myeloma (MM) Using Minimal Residual Disease to Direct Therapy Duration (DRAMMATIC Study). Registration Information: Informed Consent Signed 01/03/2023 Registered Step 1 01/06/2023 Informed Consent Signed Step 2 07/22/2023 Randomization Date: 08/18/2023 Addendum 11/16/2023 Treatment Arm: TAC- 1 Lenalidomide Study ID [id number] Consent to optional samples Yes Study Status Active Patient was here for bmbX - consented to recent consent addendum - Yes to optional and blood. Patient 12 month Bone Marrow Biopsy Aspirate Lab Collected: July 18, 2024 Drawn at 1:35 PM Shipped to [employer] - Sent [employer] - [id number] Shipped 1 EDTA 3.48 mL - not processed. [facility] [place]F [place]. Temo Gill RN [phone] documented in this encounter [facility] 07-18-2024 Note HNO ID: [id number] Author: BRIGHT THAO APRN.EVELIN Service: ? Author Type: Nurse Practitioner Type: Procedures Filed: 07/18/2024 14:34 Note Text: BEDSIDE PROCEDURE NOTE BONE MARROW BIOPSY Date/Start Time: 07/18/2024 1:25 PM Date/Stop Time: 07/18/2024 1:37 PM Performed by: Bright Thao APRN.[employer]TERN[employer]ER [employer] Authorized by: Bright Thao APRN.EVELIN Where was Patient When this Procedure was Performed [facility] Informed Consent Consent Obtained: Written Topmost Protocol A moment to CARE was completed. SIGN IN Personnel directly involved with the procedure wore the appropriate PPE. Special Equipment: Yes Patient/Surrogate Stated/Verified: Patient name, Date of , Relevant allergies and Intended procedure TIME OUT Intended patient and procedure match the source document(s). Consent documented and matches the intended procedure. Relevant labs, photos, and/or imaging studies have been reviewed. Correct side/site marked and visible. Medications required for procedure verified. No fire risk assessment and interventions applicable. No implant(s) inserted. Pre-Procedure Details: The area was prepped with povidone Iodine (Betadine) and allowed to dry. A sterile partial body drape was applied following the usual aseptic technique. Medications: Local Anesthesia (see MAR): Lidocaine 1% Procedure Details: Patient Position: Left lateral decubitus Aspiration Laterality: Unilateral Aspiration Site: Right posterior superior iliac crest Biopsy Laterality: Unilateral Biopsy Site: Right posterior sperior iliac crest OnControl biopsy system was used. Using aseptic technique, bone marrow aspiration was performed. A touch prep was taken. Core biopsy was obtained 1.2 cm. The core biopsy was confirmed. Number of External Insertion Sites: 1 Pressure dressing applied to Bone Marrow site(s). Hemostasis maintained. Assisting Clinician(s): Marvin Pickens MA and Andre Quijano MA Post-Procedure Details: Patient Tolerance: Patient tolerated the procedure well with no immediate complications Immediate Complications: N/A Estimated Blood Loss: scant Specimens Sent: bone marrow analysis, bone marrow chromosome analysis, DNA extraction and flow cytometry Teaching Complete: Bone Marrow Biopsy Post-procedure teaching complete Post-procedure care was reviewed and explained. Patient instructed to communicate complaints of redness, swelling, increased or unresolved pain, bleeding chills, bruising, and/or fever. Patient verbalized understanding. SIGN OUT All specimen containers correctly labeled. All instruments, equipment, possible retained foreign bodies accounted for. Post-procedure follow-up management communicated and Plan of Care Visit completed when applicable SIGNATURE: Bright Thao APRN.CNP PATIENT NAME: Oseas Joseph DATE: July 18, 2024 TIME: 2:07 PM [facility] 07-18-2024 Procedure note Associated Ord er(s): BONE MARROW BIOPSY Post-Procedure Diagnose(s): Examination of participant in clinical trial; Multiple myeloma not having achieved remission (HCC) BEDSIDE PROCEDURE NOTE BONE MARROW BIOPSY Date/Start Time: 07/18/2024 1:25 PM Date/Stop Time: 07/18/2024 1:37 PM Performed by: Bright Thao APRN.EVELIN Authorized by: Bright Thao APRN.CNP Where was Patient When this Procedure was Performed [facility] Informed Consent Consent Obtained: Written Topmost Protocol A moment to CARE was completed. SIGN IN Personnel directly involved with the procedure wore the appropriate PPE. Special Equipment: Yes Patient/Surrogate Stated/Verified: Patient name, Date of , Relevant allergies and Intended procedure TIME OUT Intended patient and procedure match the source document(s). Consent documented and matches the intended procedure. Relevant labs, photos, and/or imaging studies have been reviewed. Correct side/site marked and visible. Medications required for procedure verified. No fire risk assessment and interventions applicable. No implant(s) inserted. Pre-Procedure Details: The area was prepped with povidone Iodine (Betadine) and allowed to dry. A sterile partial body drape was applied following the usual aseptic technique. Medications: Local Anesthesia (see MAR): Lidocaine 1% Procedure Details: Patient Position: Left lateral decubitus Aspiration Laterality: Unilateral Aspiration Site: Right posterior superior iliac crest Biopsy Laterality: Unilateral Biopsy Site: Right posterior sperior iliac crest OnControl biopsy system was used. Using aseptic technique, bone marrow aspiration was performed. A touch prep was taken. Core biopsy was obtained 1.2 cm. The core biopsy was confirmed. Number of External Insertion Sites: 1 Pressure dressing applied to Bone Marrow site(s). Hemostasis maintained. Assisting Clinician(s): Marvin Pickens MA and Andre Quijano MA Post-Procedure Details: Patient Tolerance: Patient tolerated the procedure well with no immediate complications Immediate Complications: N/A Estimated Blood Loss: scant Specimens Sent: bone marrow analysis, bone marrow chromosome analysis, DNA extraction and flow cytometry Teaching Complete: Bone Marrow Biopsy Post-procedure teaching complete Post-procedure care was reviewed and explained. Patient instructed to communicate complaints of redness, swelling, increased or unresolved pain, bleeding chills, bruising, and/or fever. Patient verbalized understanding. SIGN OUT All specimen containers correctly labeled. All instruments, equipment, possible retained foreign bodies accounted for. Post-procedure follow-up management communicated and Plan of Care Visit completed when applicable SIGNATURE: Bright Thao APRN.CNP PATIENT NAME: Oseas Joseph DATE: July 18, 2024 TIME: 2:07 PM [facility] Work Phone: 07-18-2024 Procedure note Associated Ord er(s): BONE MARROW BIOPSY Post-Procedure Diagnose(s): Examination of participant in clinical trial; Multiple myeloma not having achieved remission (HCC) BEDSIDE PROCEDURE NOTE BONE MARROW BIOPSY Date/Start Time: 07/18/2024 1:25 PM Date/Stop Time: 07/18/2024 1:37 PM Performed by: Bright Thao APRN.CNP Authorized by: Bright Thao APRN.CNP Where was Patient When this Procedure was Performed [facility] Informed Consent Consent Obtained: Written Topmost Protocol A moment to CARE was completed. SIGN IN Personnel directly involved with the procedure wore the appropriate PPE. Special Equipment: Yes Patient/Surrogate Stated/Verified: Patient name, Date of , Relevant allergies and Intended procedure TIME OUT Intended patient and procedure match the source document(s). Consent documented and matches the intended procedure. Relevant labs, photos, and/or imaging studies have been reviewed. Correct side/site marked and visible. Medications required for procedure verified. No fire risk assessment and interventions applicable. No implant(s) inserted. Pre-Procedure Details: The area was prepped with povidone Iodine (Betadine) and allowed to dry. A sterile partial body drape was applied following the usual aseptic technique. Medications: Local Anesthesia (see MAR): Lidocaine 1% Procedure Details: Patient Position: Left lateral decubitus Aspiration Laterality: Unilateral Aspiration Site: Right posterior superior iliac crest Biopsy Laterality: Unilateral Biopsy Site: Right posterior sperior iliac crest OnControl biopsy system was used. Using aseptic technique, bone marrow aspiration was performed. A touch prep was taken. Core biopsy was obtained 1.2 cm. The core biopsy was confirmed. Number of External Insertion Sites: 1 Pressure dressing applied to Bone Marrow site(s). Hemostasis maintained. Assisting Clinician(s): Marvin Pickens MA and Andre Quijano MA Post-Procedure Details: Patient Tolerance: Patient tolerated the procedure well with no immediate complications Immediate Complications: N/A Estimated Blood Loss: scant Specimens Sent: bone marrow analysis, bone marrow chromosome analysis, DNA extraction and flow cytometry Teaching Complete: Bone Marrow Biopsy Post-procedure teaching complete Post-procedure care was reviewed and explained. Patient instructed to communicate complaints of redness, swelling, increased or unresolved pain, bleeding chills, bruising, and/or fever. Patient verbalized understanding. SIGN OUT All specimen containers correctly labeled. All instruments, equipment, possible retained foreign bodies accounted for. Post-procedure follow-up management communicated and Plan of Care Visit completed when applicable SIGNATURE: Bright Thao APRN.CNP PATIENT NAME: Oseas Joseph DATE: July 18, 2024 TIME: 2:07 PM documented in this encounter [facility] 07-18-2024 Nurse Note Pt discharged to home with after BMBX with dry sterile dressing in place. No drainage noted. Post-procedures care reviewed with patient. Pt to call with any complaints of redness, swelling, increased or unresolved pain, bleeding, chills, bruising, and/or fever. Pt. Verbalized understanding. Marvin Pickens MA [facility] 07-18-2024 Nurse Note Pt discharged to home with after BMBX with dry sterile dressing in place. No drainage noted. Post-procedures care reviewed with patient. Pt to call with any complaints of redness, swelling, increased or unresolved pain, bleeding, chills, bruising, and/or fever. Pt. Verbalized understanding. Marvin Pickens MA documented in this encounter [facility] 06-27-2024 Note HNO ID: [id number] Author: TEMO GILL RN Service: ? Author Type: Registered Nurse Type: Progress Notes Filed: 08/26/2024 14:34 Note Text: IRB # [id number], [facility]# SWOG 1803 study entitled Phase III Study of Daratumumab/rHuPH20 (NSC- 395023) + Lenalidomide or Lenalidomide as Post-Autologous Stem Cell Transplant Maintenance Therapy in Patients with Multiple Myeloma (MM) Using Minimal Residual Disease to Direct Therapy Duration (DRAMMATIC Study). Registration Information: Informed Consent Signed 01/03/2023 Registered Step 1 01/06/2023 Informed Consent Signed Step 2 07/22/2023 Randomization Date: 08/18/2023 Addendum 11/16/2023 Treatment Arm: TAC- 1 Lenalidomide Study ID [id number] Consent to optional samples Yes Study Status Active Patient was here for C12 - came at the last day of cycle 11. Patient doing much better overall per family and patient. The patient saw ENT for hearing aids. Patient saw neurologist and has some follow-up exams. Discussed upcoming bmbx timeline. Scheduled. Treatment Plan: Treatment Previous Cycle Cycle Current Start Date Frequency End date Lenalidomide Cycle 1 Day 1 08/24/2023 Dose Reduced 05/12/2024 5mg ycle 11 05/30/2024-06/26/2024 = 96% Cycle 12 06/27/2024-07/25/2024 10/19/2023 Daily, Cycle every 28 days Clinical Trial Specific Testing Test Dates Completed Due Date Bone Marrow Biopsy CTD 07/24/2023 Baseline Step 2 [x] 07/18/2024 12 months post Step 2 [] 07/24/2025 24 months post Step 2 [] 07/24/2026 36 months post Step 2 [] 07/24/2027 48 months post Step 2 [] QOLs PRO-CTCAE 08/17/2023 (Baseline) [x] 08/24/2023 (Cycle 1) [x] 09/21/2023 (Cycle 2) [x] 10/19/2023 (Cycle 3) [x] 11/16/2023 (Cycle 4) [x] 12/14/2023 (Cycle 5) [x] 01/11/2024 (Cycle 6) [x] 02/08/2024 (Cycle 7) [x] 03/07/2024 (Cycle 8) [x] 04/04/2024 (Cycle 9) [x] 05/02/2024 (Cycle 10) [x] 05/29/2024 (Cycle 11) [x] 06/27/2024 (Cycle 12) [x] Day 1 of every cycle Baseline Weight (08/24/2023 date) 80.7 kg Current Weight 83.2 kg Creatinine Clearance 59.3 ml/min ECOG per ECOG- 1 Bone Marrow - Plasma Cell % Free Light Chains M Protein Date Size (mm) Date [place] Lambda * IGG Date Serum Urine Diagnosis 08/24/2022 20% Diagnosis 10/26/2022 11.7 43.5 Diagnosis 10/26/2022 1.12 M protein present Baseline 07/30/2023 Less than 5%* Baseline 08/07/2023 4.7 2.5 Enrollment 07/31/2023 Cycle 1 0.22 0.00 08/24/2023 Cycle 1 4.1* 2.4* 08/24/2023 Cycle 1 0.28 0.00 09/21/2023 Cycle 2 11.7 8.7 09/21/2023 Cycle 2 0.17 0.01 10/19/2023 Cycle 3 15.5 10.5 10/19/2023 Cycle 3 0.16 0.01 11/16/2023 Cycle 4 17.4 21.4 11/16/2023 Cycle 4 0.20 0.00 12/14/2023 Cycle 5 19.4 23.1 12/14/2023 Cycle 5 0.00* 0.00 01/11/2024 Cycle 6 25.8 19.4 01/11/2024 Cycle 6 0.15 0.00 02/08/2024 Cycle 7 24.2 20.4 02/08/2024 Cycle 7 0.00* 0.00 03/07/2024 Cycle 8 22.0 15.3 03/07/2024 Cycle 8 0.23 0.0 04/04/2024 Cycle 9 22.4 17.5 04/04/2024 Cycle 9 0.24 0.00 05/02/2024 Cycle 10 23.2 16.5 05/02/2024 Cycle 10 0.00* 0.00 05/29/2024 Cycle 11 23.7 15.3 05/29/2024 Cycle 11 0.00* 0.00 06/27/2024 Cycle 12 27.7 19.3 06/27/2024 Cycle 12 0.25 0.00 Lowest/Jacque = * 06/27/24 Weight 83.2 kg (183 lb 8 oz) BSA 0 BMI 0 Temp 36.7 ?C (98.1 ?F) Resp 16 Pulse 62 BP 108/66 SpO2 99 % Drug Accountability/Education - Completed on 06/27/2024. Patient given Cycle 12 diary. Patient did return cycle 11 - reviewed edits with patient. Use of the study medication diary and dosing instructions were reviewed with the patient. Patient verbalizes understanding of dosing of Revlimid: Capsules should be taken whole, with water, once daily (patient takes at HS). If a dose is missed, and it has been less than 12 hours since the preceding dose, the patient should take lenalidomide as soon as the patient remembers. If it has been more than 12 hours, the patient should skip the missed dose. Patient took 27/28 pills for the cycle - determining 96% compliance Missed one day due to stomach bug Patient receives drug from a private pharmacy. Lenalidomide Education and Counseling completed. Patient counseled on potential exposure to lenalidomide by , engage in abstinence or use a condom when engaging in sexual contact with W[facility], notify study doctor if female partner becomes , never share drug with anyone else, not to donate blood, semen, or sperm while taking drug and for 28 days after. Concomitant medications reviewed per protocol: Yes Patient reported changes to medication list: No changes since last visit. Current medications: Current use of anticoagulants: YES (see medications below if applicable) Anticoagulants: Eliquis 5 mg Current use of herbal preparations or medications: No Prophylactic shingles medication: Acyclovir 400 mg Current Outpatient Medications Medication Sig Start/Stop Use acyclovir (ZOVIRAX) 400 mg tablet Take 1 tablet by mouth t (more content not included)... [facility] 06-27-[facility]24 History of Present illness Narrative IRB # [id number], [facility]# [id number] study entitled Phase III Study of Daratumumab/rHuPH20 (NSC- [id number]) + Lenalidomide or Lenalidomide as Post-Autologous Stem Cell Transplant Maintenance Therapy in Patients with Multiple Myeloma (MM) Using Minimal Residual Disease to Direct Therapy Duration (DRAMMATIC Study). Registration Information: Informed Consent Signed 01/03/2023 Registered Step 1 01/06/2023 Informed Consent Signed Step 2 07/22/2023 Randomization Date: 08/18/2023 Addendum 11/16/2023 Treatment Arm: TAC- 1 Lenalidomide Study ID [id number] Consent to optional samples Yes Study Status Active Patient was here for C12 - came at the last day of cycle 11. Patient doing much better overall per family and patient. The patient saw ENT for hearing aids. Patient saw neurologist and has some follow-up exams. Discussed upcoming bmbx timeline. Scheduled. Treatment Plan: Treatment Previous Cycle Cycle Current Start Date Frequency End date Lenalidomide Cycle 1 Day 1 08/24/2023 Dose Reduced 05/12/2024 5mg ycle 11 05/30/2024-06/26/2024 = 96% Cycle 12 06/27/2024-07/25/2024 10/19/2023 Daily, Cycle every 28 days Clinical Trial Specific Testing Test Dates Completed Due Date Bone Marrow Biopsy CTD 07/24/2023 Baseline Step 2 [x] 07/18/2024 12 months post Step 2 [] 07/24/2025 24 months post Step 2 [] 07/24/2026 36 months post Step 2 [] 07/24/2027 48 months post Step 2 [] QOLs PRO-CTCAE 08/17/2023 (Baseline) [x] 08/24/2023 (Cycle 1) [x] 09/21/2023 (Cycle 2) [x] 10/19/2023 (Cycle 3) [x] 11/16/2023 (Cycle 4) [x] 12/14/2023 (Cycle 5) [x] 01/11/2024 (Cycle 6) [x] 02/08/2024 (Cycle 7) [x] 03/07/2024 (Cycle 8) [x] 04/04/2024 (Cycle 9) [x] 05/02/2024 (Cycle 10) [x] 05/29/2024 (Cycle 11) [x] 06/27/2024 (Cycle 12) [x] Day 1 of every cycle Baseline Weight (08/24/2023 date) 80.7 kg Current Weight 83.2 kg Creatinine Clearance 59.3 ml/min ECOG per ECOG- 1 Bone Marrow - Plasma Cell % Free Light Chains M Protein Date Size (mm) Date [place] Lambda * IGG Date Serum Urine Diagnosis 08/24/2022 20% Diagnosis 10/26/2022 11.7 43.5 Diagnosis 10/26/2022 1.12 M protein present Baseline 07/30/2023 Less than 5%* Baseline 08/07/2023 4.7 2.5 Enrollment 07/31/2023 Cycle 1 0.22 0.00 08/24/2023 Cycle 1 4.1* 2.4* 08/24/2023 Cycle 1 0.28 0.00 09/21/2023 Cycle 2 11.7 8.7 09/21/2023 Cycle 2 0.17 0.01 10/19/2023 Cycle 3 15.5 10.5 10/19/2023 Cycle 3 0.16 0.01 11/16/2023 Cycle 4 17.4 21.4 11/16/2023 Cycle 4 0.20 0.00 12/14/2023 Cycle 5 19.4 23.1 12/14/2023 Cycle 5 0.00* 0.00 01/11/2024 Cycle 6 25.8 19.4 01/11/2024 Cycle 6 0.15 0.00 02/08/2024 Cycle 7 24.2 20.4 02/08/2024 Cycle 7 0.00* 0.00 03/07/2024 Cycle 8 22.0 15.3 03/07/2024 Cycle 8 0.23 0.0 04/04/2024 Cycle 9 22.4 17.5 04/04/2024 Cycle 9 0.24 0.00 05/02/2024 Cycle 10 23.2 16.5 05/02/2024 Cycle 10 0.00* 0.00 05/29/2024 Cycle 11 23.7 15.3 05/29/2024 Cycle 11 0.00* 0.00 06/27/2024 Cycle 12 27.7 19.3 06/27/2024 Cycle 12 0.25 0.00 Lowest/Jacque = * 06/27/24 Weight 83.2 kg (183 lb 8 oz) BSA 0 BMI 0 Temp 36.7 C (98.1 F) Resp 16 Pulse 62 BP 108/66 SpO2 99 % Drug Accountability/Education - Completed on 06/27/2024. Patient given Cycle 12 diary. Patient did return cycle 11 - reviewed edits with patient. Use of the study medication diary and dosing instructions were reviewed with the patient. Patient verbalizes understanding of dosing of Revlimid: Capsules should be taken whole, with water, once daily (patient takes at HS). If a dose is missed, and it has been less than 12 hours since the preceding dose, the patient should take lenalidomide as soon as the patient remembers. If it has been more than 12 hours, the patient should skip the missed dose. Patient took 27/28 pills for the cycle - determining 96% compliance Missed one day due to stomach bug Patient receives drug from a private pharmacy. Lenalidomide Education and Counseling completed. Patient counseled on potential exposure to lenalidomide by , engage in abstinence or use a condom when engaging in sexual contact with WOCBP, notify study doctor if female partner becomes , never share drug with anyone else, not to donate blood, semen, or sperm while taking drug and for 28 days after. Concomitant medications reviewed per protocol: Yes Patient reported changes to medication list: No changes since last visit. Current medications: Current use of anticoagulants: YES (see medications below if applicable) Anticoagulants: Eliquis 5 mg Current use of herbal preparations or medications: No Prophylactic shingles medication: Acyclovir 400 mg Current Outpatient Medications Medication Sig Start/Stop Use acyclovir (ZOVIRAX) 400 mg tablet Take 1 tablet by mouth twice daily. 05/01/2023 Prophylactic shingles ondansetron (ZOFRAN) 8 mg tablet Take 1 tablet by mouth every 8 hours as needed for nausea/vomiting. 10/26/2022 PRN Nausea clonazePAM (KLONOPIN) 0.5 mg tablet Take 0.5 mg by mouth once daily. 07/29/2023 Anxiety glimepiride (AMARYL) 4 mg tablet Take 2 capsules by mouth in AM & 1 capsule in PM. >5 years Type 2 amLODIPine (NORVASC) 5 mg tablet Take 5 mg by mouth once daily. 02/10/2021 Hypertension atorvastatin (LIPITOR) 10 mg tablet Take 10 mg by mouth once daily. 02/10/2021 Cholesterol losartan (COZAAR) 50 mg tablet Take 50 mg by mouth once daily. 02/10/2021 Hypertension Loperamide (Imodium Oral) Take 2 tablet by mouth as needed >5 years Diarrhea Sildenafil (Viagra) 50 mg tablet Take 50 mg by mouth as needed. >10 years ED Eliquis 5 mg tablet Take 1 tablet by mouth twice daily 03/23/2023 Preventative -blood thinner Melatonin 5 mg Take 1 tablet at bedtime 03/23/2023 Insomnia Revlimid 10 mg Take 1 capsule daily in the morning 08/24/2023 MM treatment Linzess 72 mcg Take 1 capsule for constipation symptoms once a day as needed for constipation 12/31/2023 Constipation Azithromycin (ZITHROMAX) 500 mg tablet Take 1 tablet by mouth daily 02/02/2024 Completed 02/05/2024 Antibiotic No current facility-administered medications for this visit. Medical History: PAST MEDICAL HISTORY Diagnosis Date Arthritis Treated with medication Chronic diarrhea Resolved and now constipation Diabetes mellitus (HCC) Treated with medication Essential hypertension Treated with medication Mixed hyperlipidemia Treated with medication PAST MEDICAL HISTORY Diagnosis Date Arthritis Treated with medication Chronic diarrhea Resolved Malignant melanoma (HCC) On back removed - precancerous and 06/2022 non cancerous Mixed hyperlipidemia Treated with medication Multiple myeloma not having achieved remission (HCC) Treated with medication Primary hypertension Treated with medication Pulmonary embolism (HCC) Treated with medication Right bundle branch block Treated with medication Type 2 diabetes mellitus, without long-term current use of insulin (HCC) Treated with medication Surgical History: PAST SURGICAL HISTORY Procedure Laterality Date REPAIR INCISIONAL HERNIA,REDUCIBLE Resolved 8th grade SKIN BX, 1 LESION 06/2022 non cancerous Baseline Toxicities per CTCAE v. 5: All predate therapy, are chronic conditions and will not be actively followed unless they worsen during the clinical trial. Hyperglycemia; Grade 1: Start Date: >5 years PRIOR TO STUDY Drugs to Treat: Glimepiride Action Required: None Outcome: Ongoing. (Chronic) Diarrhea; Grade 1: INTERMITTENT Start Date: >5 years PRIOR TO STUDY Drugs to Treat: Imodium Action Required: None Outcome: Ongoing. Anemia; Grade 1: Start Date: Intermittent PRIOR TO STUDY 07/24/2023 RESOLVED: 08/24/2023 but Grade 1 again 09/21/2023 Drugs to Treat: None. Action Required: None Outcome: Ongoing Aspartate aminotransferase decreased; Grade 1: Start Date: Intermittent PRIOR TO STUDY Drugs to Treat: None. Action Required: None Outcome: Ongoing Alanine aminotransferase decreased; Grade 1: Start Date: Intermittent PRIOR TO STUDY 07/24/2023 STOPPED:11/16/2023 Drugs to Treat: None. Action Required: None Outcome: RESOLVED Insomnia; Grade 1: Start Date: Intermittent PRIOR TO STUDY 07/21/2023 Drugs to Treat: None. Action Required: None Outcome: Ongoing. Weight Loss; Grade 1: 3.5 Percent Increase since - Intentional Start Date: Intentional Loss - PRIOR TO STUDY 07/21/2023 RESOLVED:11/16/2023 Drugs to Treat: None. Action Required: None Outcome: RESOLVED Hypophosphatemia:Start Date: PRIOR TO STUDY 07/24/2023 STOPPED:08/24/2023 Drugs to Treat: None. Action Required: None Outcome: RESOLVED Lymphocyte Count Decreased; Grade 1: Start Date: Intermittent PRIOR TO STUDY- Possibly related to Revlimid and Drugs to Treat: None. Action Required: None Outcome: Ongoing Toxicities per CTCAE v. 5: White Blood Cell Count Decreased; Grade 2: Related to Revlimid and Influenza Start Date: 09/21/2023 Increased: 02/08/2024 Drugs to Treat: None. Action Required: None Outcome: ONGOING Bone Pain: Grade 1; Bilateral Thigh: Unlikely related to Revlimid Start Date: PRIOR TO STUDY 08/24/2023 INCREASED 10/19/2023 Decreased to almost resolved: 02/08/2024 Drugs to Treat: None. Action Required: EMG and PT Outcome: Improving drastically Neutrophil Count Decreased; Grade 1: Possibly Related to Revlimid and Vaccines Start Date: 04/04/2024 Drugs to Treat: None. Action Required:None Outcome:Ongoing Memory Impairment; Grade 1: Unrelated to Revlimid Start Date: 02/08/2024 witnessed by RN but reported as PRIOR TO STUDY recently by patients Drugs to Treat: NoneAction Required: None Outcome: Ongoing Platelet Count Decreased; Grade 1: Start Date: 01/01/2023 STOPPED 06/27/2024 Drugs to Treat: None. Action Required: None Outcome: RESOLVED Creatinine Increased; Grade 1: Start Date: 06/27/2024 Drugs to Treat: None. Action Required: None Outcome: Ongoing Patient turned in a 24 hour urine: Yes Chart sent the overseeing physician to review CTCAE toxicities. Patient knows to RTC 07/18/2024 for BMBx. Patient knows to call in the interim for any questions or concerns. Patient has contact information for Uma Gill Research Nurse and Dr. Mccain, along with the office number. Patient meets all Criteria for Study Participation: Yes REID Bynum, RN Clinical Research Nurse [phone] documented in this encounter [facility] 06-27-2024 Note HNO ID: [id number] Author: CONNIE MCCAIN, DO Service: ? Author Type: Physician Type: Progress Notes Filed: 06/27/2024 09:00 Note Text: Oncologic problem(s): 1) IgG lambda multiple myeloma. HPI: The patient is a 74-year-old male with a past medical history significant for type 2 diabetes, high cholesterol, hypertension and right bundle branch block. Patient originally presented to the emergency room at [facility] on 04/19/2022 with new onset of confusion that day which had been worsening. Laboratory work-up significant for hypokalemia. CT of the brain was unremarkable. He was admitted. During hospitalization it was noted that he had been having diarrhea for 6 to 8 weeks. Stool studies were positive for Campylobacter, blood and lactoferrin. C. difficile was negative. CT of the abdomen pelvis on 04/21/2022 noted abnormal pericholecystic edema without gallstones. Renal cysts and colonic diverticulosis were noted. He was found to have elevation of sed rate to 39, CRP 134. His albumin was 2.3. IgA low at 37. He was discharged on azithromycin, potassium and magnesium supplement. He was seen in the outpatient setting for follow-up visit on 07/11/2022. He continued to have one episode of explosive diarrhea daily. This had been going on for about 8 months. CBC on 07/11 showed a white count of 6400. Differential was normal. Hemoglobin 14.9 g/dL. Platelet count 275,000. Chemistries significant for creatinine of 1.29 g/dL. Previously 1.13 g/dL on 04/27/2022. Calcium was 9.3 mg/dL. Total bilirubin, AST, ALT and alkaline phosphatase were normal. LDH was 181. C-reactive protein was less than 2.09. Total protein was 8.8 g/dL. Total IgG was 2462 mg/dL. IgA decreased to 28 mg/dL. IgM normal at 32 mg/dL. On protein electrophoresis, patient was found to have 2M spikes both IgG lambda by immunofixation. For spike was quantitated at 1.2 g/dL and the second was quantitated at 0.6 g/dL. Cytoplasmic and perinuclear ANCA both negative. Atypical p-ANCA negative. Patient described diarrhea as loose, eran stools sometimes explosive typically one bowel movement per day however. He had not observed any blood. Had a colonoscopy December [address] Arteaga. His appetite was normal. He had not lost weight. Denied reflux and nausea. He did get abdominal bloating associated with the diarrhea. He denied musculoskeletal pain. He denied symptoms of sensory neuropathy. He sees an team supervisor once a year for dilated exam. He has not been told he has retinopathy. Recent removal of early melanoma back. Blue nevus right ankle--required WLE--scheduled. PMR--about 15 years ago. Patient underwent colonoscopy on 09/21/2022. Preparation of the colon was fair. -One 6 mm polyp at the ileocecal valve, removed with a hot snare. Resected and retrieved. -One 5 mm polyp in the ascending colon, removed with a hot snare. Resected and retrieved. -Congested mucosa in the descending colon, at the splenic flexure, in the ascending colon and in the cecum. Biopsied. -Diverticulosis in the recto-sigmoid colon, in the sigmoid colon and in the descending colon. -Stool in the rectum, in the sigmoid colon, in the descending colon and at the hepatic flexure. Fluid aspiration performed. -The examined portion of the ileum was normal. Biopsied. Pathology: A. Ileocecal valve polyp, biopsy: -Consistent with fibrolipomatous polyp. -See comment. B. Small bowel, biopsy: -No pathologic change. C. Cecum, biopsy: -Mild melanosis coli. D. Colon, random biopsy: -Mild melanosis coli. E. Ascending colon polyp, biopsy: -Fragments of tubular adenoma. B, C, D AND E - No congophilic material identified. Congo red stain with matched control is negative. ADDENDUM C AND D. No congophilic material is noted in these biopsies on light and polarized microscopy. Congo Red stain with matched control was used in the evaluation of this case. He was diagnosed with pancreatic insufficiency and was to start pancreatic enzyme replacement. Patient had a venous duplex ultrasound on 12/16/2022 for right leg pain. That study demonstrated no evidence of DVT in the right leg. He developed chest pain and increasing shortness of breath. Went to the ED on 01/16/2023. PE protocol chest CT demonstrated multiple bilateral pulmonary emboli involving the distal portion of both the right and left main pulmonary arteries as well as branches of the upper and lower lobe pulmonary arteries, more prominent on the right side. Platelet count was 67,000. Patient was admitted and placed on unfractionated heparin with bolus. The next morning platelet count was 62,000. He was rotated to apixaban and discharged. Echocardiogram performed 01/17/2023 demonstrated normal LV size. There was moderate concentric LVH. Left ventricular systolic function was normal with an estimated ejection fraction at 60%. Th (more content not included)... [facility] 06-27-2024 History of Present illness Narrative Oncologic problem(s): 1) IgG lambda multiple myeloma. HPI: The patient is a 74-year-old male with a past medical history significant for type 2 diabetes, high cholesterol, hypertension and right bundle branch block. Patient originally presented to the emergency room at [facility] on 04/19/2022 with new onset of confusion that day which had been worsening. Laboratory work-up significant for hypokalemia. CT of the brain was unremarkable. He was admitted. During hospitalization it was noted that he had been having diarrhea for 6 to 8 weeks. Stool studies were positive for Campylobacter, blood and lactoferrin. C. difficile was negative. CT of the abdomen pelvis on 04/21/2022 noted abnormal pericholecystic edema without gallstones. Renal cysts and colonic diverticulosis were noted. He was found to have elevation of sed rate to 39, CRP 134. His albumin was 2.3. IgA low at 37. He was discharged on azithromycin, potassium and magnesium supplement. He was seen in the outpatient setting for follow-up visit on 07/11/2022. He continued to have one episode of explosive diarrhea daily. This had been going on for about 8 months. CBC on 07/11 showed a white count of 6400. Differential was normal. Hemoglobin 14.9 g/dL. Platelet count 275,000. Chemistries significant for creatinine of 1.29 g/dL. Previously 1.13 g/dL on 04/27/2022. Calcium was 9.3 mg/dL. Total bilirubin, AST, ALT and alkaline phosphatase were normal. LDH was 181. C-reactive protein was less than 2.09. Total protein was 8.8 g/dL. Total IgG was 2462 mg/dL. IgA decreased to 28 mg/dL. IgM normal at 32 mg/dL. On protein electrophoresis, patient was found to have 2M spikes both IgG lambda by immunofixation. For spike was quantitated at 1.2 g/dL and the second was quantitated at 0.6 g/dL. Cytoplasmic and perinuclear ANCA both negative. Atypical p-ANCA negative. Patient described diarrhea as loose, eran stools sometimes explosive typically one bowel movement per day however. He had not observed any blood. Had a colonoscopy [address] Arteaga. His appetite was normal. He had not lost weight. Denied reflux and nausea. He did get abdominal bloating associated with the diarrhea. He denied musculoskeletal pain. He denied symptoms of sensory neuropathy. He sees an team supervisor once a year for dilated exam. He has not been told he has retinopathy. Recent removal of early melanoma back. Blue nevus right ankle--required WLE--scheduled. PMR--about 15 years ago. Patient underwent colonoscopy on 09/21/2022. Preparation of the colon was fair. -One 6 mm polyp at the ileocecal valve, removed with a hot snare. Resected and retrieved. -One 5 mm polyp in the ascending colon, removed with a hot snare. Resected and retrieved. -Congested mucosa in the descending colon, at the splenic flexure, in the ascending colon and in the cecum. Biopsied. -Diverticulosis in the recto-sigmoid colon, in the sigmoid colon and in the descending colon. -Stool in the rectum, in the sigmoid colon, in the descending colon and at the hepatic flexure. Fluid aspiration performed. -The examined portion of the ileum was normal. Biopsied. Pathology: A. Ileocecal valve polyp, biopsy: -Consistent with fibrolipomatous polyp. -See comment. B. Small bowel, biopsy: -No pathologic change. C. Cecum, biopsy: -Mild melanosis coli. D. Colon, random biopsy: -Mild melanosis coli. E. Ascending colon polyp, biopsy: -Fragments of tubular adenoma. B, C, D & E - No congophilic material identified. Congo red stain with matched control is negative. ADDENDUM C & D. No congophilic material is noted in these biopsies on light and polarized microscopy. Congo Red stain with matched control was used in the evaluation of this case. He was diagnosed with pancreatic insufficiency and was to start pancreatic enzyme replacement. Patient had a venous duplex ultrasound on 12/16/2022 for right leg pain. That study demonstrated no evidence of DVT in the right leg. He developed chest pain and increasing shortness of breath. Went to the ED on 01/16/2023. PE protocol chest CT demonstrated multiple bilateral pulmonary emboli involving the distal portion of both the right and left main pulmonary arteries as well as branches of the upper and lower lobe pulmonary arteries, more prominent on the right side. Platelet count was 67,000. Patient was admitted and placed on unfractionated heparin with bolus. The next morning platelet count was 62,000. He was rotated to apixaban and discharged. Echocardiogram performed 01/17/2023 demonstrated normal LV size. There was moderate concentric LVH. Left ventricular systolic function was normal with an estimated ejection fraction at 60%. There was stage I diastolic dysfunction. The pulmonary artery systolic pressure was 58 mmHg. The global longitudinal strain was -11.5% (abnormal). The global longitudinal strain was moderately abnormal. (Previous echocardiogram 04/20/2022 demonstrated right ventricular systolic pressure estimated at 22 mmHg. Diastolic function was indeterminate. Right ventricular strain was not determined). His chest pain has improved. He is still short of breath with heavier exertion and sometimes walking from room to room he finds himself breathing heavier. He has been taking apixaban 10 mg twice daily. No bleeding issues. Previous therapy: 1) RVd. Cycle #1 began 11/09/2022. 2) Zometa. 3) ASCT. Transplant Summary: BMT Information ASCR infused on 06/02/2023 Planned Proposed Protocols: IP BMT AUTO MELPHALAN 200 Planned Preparative Regimen Drug: Melphalan Planned Mobilization Agent: G-CSF, Plerixafor Planned Stem Cell Source: Peripheral blood stem cells BMT Transplant Details # of cells: 6.16 Saw neurology. 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 Scheduled for EMG 01/16. Seen in the ED on 01/27/2024 for an episode of confusion that was secondary to hypoglycemia. Evidently had influenza diagnosed prior to that. Was then admitted for neutropenic fever on 01/31/2024. ANC was 600 at time of admission. Influenza A positive. Stool positive for Campylobacter. Was treated with high-dose Tamiflu secondary to underlying immunocompromise. Discharged on azithromycin 500 mg daily for 14 days. Presents for ongoing oncologic management. Interim history: He offers no complaints. According to and daughter his mood has been less labile since dose reduction of Revlimid. Bowels moving regularly with formed stools. Occasional flare of anterior thigh pain. PMH, medications and allergies personally reviewed by me today. Any changes documented in appropriate section. ROS: Constitutional: Denies episodes of fever and night sweats. Neuro: Denies HAMILTON, vertigo, dizziness and imbalance. HEENT: No recent change in voice, vision. Resp: Denies cough, wheeze and hemoptysis. Denies shortness of breath at rest. Denies MACE. CVS: Denies exertional chest pain, PND, orthopnea and LE edema. : Denies dysuria or gross hematuria. Endo: Denies hot flashes. Denies polyuria and polydipsia. Denies heat and cold intolerance. Musculoskeletal: See HPI. Derm: Denies rash. Denies jaundice and diffuse pruritis. Heme: Denies unusual bleeding and unexplained bruising. Psych: Normal mood. PHYSICAL EXAM: Vitals: Blood pressure 108/66, pulse 62, temperature 36.7 C (98.1 F), temperature source Temporal, weight 83.2 kg (183 lb 8 oz), SpO2 99%. Well-appearing and in no acute distress. EYES: Sclerae are anicteric bilaterally. LYMPHATIC: There is no palpable cervical or supraclavicular adenopathy. RESPIRATORY: Inspiratory breath sounds are of normal intensity in all rashid. No rales, wheezes or rhonchi. CARDIOVASCULAR: Rhythm is regular. ABDOMEN: The abdomen is nondistended. Extremities: No swelling or edema. SKIN: No jaundice. NEUROLOGIC: human resource intern II-XII are grossly intact. Diminished hip flexor strength right leg. Patellar DTRs remain slightly diminished, but symmetric. MS: No tenderness or mass of the right quadriceps muscle. LABS: Latest Ref [facility] 06/27/2024 WBC 3.70 - 11.00 k/uL 2.99 (L) RBC 4.20 - 6.00 m/uL 4.26 Hemoglobin 13.0 - 17.0 g/dL 13.3 Hematocrit 39.0 - 51.0 % 39.2 MCV 80.0 - 100.0 fL 92.0 MCH 26.0 - 34.0 pg 31.2 MCHC 30.5 - 36.0 g/dL 33.9 RDW-CV 11.5 - 15.0 % 13.2 Platelet Count 150 - 400 k/uL 157 MPV 9.0 - 12.7 fL 9.3 Neut% % 46.1 Abs Neut (ANC) 1.45 - 7.50 k/uL 1.38 (L) Lymph% % 34.8 Abs Lymph 1.00 - 4.00 k/uL 1.04 Morton% % 10.7 Abs Morton <0.87 k/uL 0.32 Eosin% % 6.4 Abs Eosin <0.46 k/uL 0.19 Baso% % 1.3 Abs Baso <0.11 k/uL 0.04 Immature Gran % % 0.7 IMMATURE GRANS (ABS) <0.10 k/uL <0.03 NRBC /100 WBC 0.0 Absolute nRBC <0.01 k/uL <0.01 DTYPE Auto ASSESSMENT/PLAN: (C90.00) Multiple myeloma not having achieved remission (HCC) (primary encounter diagnosis) Assessment: -The patient is a 73-year-old male has a past medical history significant for diabetes and chronic diarrhea that was characterized by one explosive watery stool daily (was diagnosed with pancreatic insufficiency). Was hospitalized 03/2022 when diarrhea significantly worsened and he was diagnosed with and treated for Campylobacter infection. During that evaluation, was found to have two IgG lambda monoclonal antibodies. He did not have hypercalcemia or anemia but had elevated serum creatinine (which may have been related to volume depletion when hospitalized for diarrhea and mental status change). 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 Low to intermediate risk disease (PCs 20%). -Imaging--no lytic lesions on whole body CT; Liver cyst and splenic nodule (6-12 month f/u MRI recommended). -Bone marrow negative for amyoid. -Colonic biopsies negative for amyloid. -Subsequent MRI of spine and pelvis revealed two T2 hyperintense foci in the pelvis, one in the left sacral rebeka and one in the right ischium. -FISH panel revealed (11;14) (q13;q32) (IGH/CCND1) translocation consistent with the presence of a plasma cell neoplasm associated with standard risk disease. -R-ISS stage I (serum beta microglobulin less than 3.5 mg/L and serum albumin greater than 3.5 g/dL; standard risk disease by FISH testing as outlined above and serum LDH less than upper limit of normal). -VGPR as of 11/2023. -Reviewed results from 05/29 . Continues to maintain VGPR. -Reviewed CBC. -ECOG currently 1. 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 Plan: -Continue lenalidomide. -CBC, chemistries and serum protein electrophoresis and immunofixation as well as 24-hour urine collection for electrophoresis and immunofixation monthly per protocol. -No driving for now. He expressed an understanding and agreement. -Consented for bone marrow biopsy. Supportive care: ID: Plan: -Continue acyclovir. Heme: -As above. Skeletal: -Only lytic lesions observed over those in the pelvic bones on MRI initially. Plan: -Zometa every 3 months. Chronic PE. Assessment: -B/L PE on ASA prophylaxis. -Previous evidence of pulmonary hypertension on echocardiogram. -Tolerating apixaban well. Plan: -Continue apixaban. 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 Likely a consequence of nerve impingement as evidenced by previous MRI and not related to therapy for myeloma. Subsequent EMG confirmed this. -Will check to see if may be a candidate for psychiatry evaluation via behavioral health through the [facility] [place]. Portions of this documentation were copied and pasted from previous office visit notes in order to provide a cohesive continuity of the history. The note has been reviewed and edited and updated as necessary. I spent a total of 20 minutes on the date of the service which included preparing to see the patient, [id number] patient care, completing clinical documentation, obtaining and/or reviewing separately obtained history, performing a medically appropriate examination, counseling and educating the patient/family/caregiver, ordering medications, tests, or procedures, communicating with other HCPs (not separately reported), and communicating results to the patient/family/caregiver. Connie Mccain DO documented in this encounter [facility] 06-25-2024 Telephone encounter Note [employer] authorization # [id number]. Please send electronically. Betsy Henriquez LPN [facility] 06-25-2024 Miscellaneous Notes [employer] authorization # [id number]. Please send electronically. Betsy Henriquez LPN documented in this encounter [facility] 06-03-2024 Telephone encounter Note [employer] auth # [id number]. Please send electronically. Betsy Henriquez LPN [facility] 06-03-2024 Miscellaneous Notes [employer] auth # [id number]. Please send electronically. Betsy Henriquez LPN documented in this encounter [facility] 05-29-2024 Note Formatting of this n ote is different from the original. Goals of Care Advance Care Planning Date of Discussion: 05/29/2024 DIscussion Participants: Oseasfarhat Joseph (pt) and Louise Joseph (spouse) Clinical: ISAC Byrnes Patient/Family/Decision Makers: 1st: Oseas Joseph (son) PH: [phone] 2nd: Zahida Carlson (daughter) PH: [phone] Pt and brought in partially completed AD forms this date and asked for SW assistance in completing. SW reviewed forms with them and assisted in completing the remainder and obtaining signatures. Forms signed and copies made to sent to internal scanning. Original forms and 2 copies given to pt this date. SIGNATURE: ISAC Byrnes PATIENT NAME: Oseas Joseph DATE: May 29, 2024 TIME: 10:31 AM PAGER/CONTACT #: [facility] 05-29-2024 Miscellaneous Notes Goals of Care Advance Care Planning Date of Discussion: 05/29/2024 DIscussion Participants: Oseas Joseph (pt) and Louise Joseph (spouse) Clinical: IASC Byrnes Patient/Family/Decision Makers: 1st: Oseas Joseph (son) PH: [phone] 2nd: Zahida Yadira Carlson (daughter) PH: [phone] Pt and brought in partially completed AD forms this date and asked for SW assistance in completing. SW reviewed forms with them and assisted in completing the remainder and obtaining signatures. Forms signed and copies made to sent to internal scanning. Original forms and 2 copies given to pt this date. SIGNATURE: ISAC Byrnes PATIENT NAME: Oseas Joseph DATE: May 29, 2024 TIME: 10:31 AM PAGER/CONTACT #: documented in this encounter [facility] 05-29-2024 History of Present illness Narrative IRB # [id number], [facility]# [id number] study entitled Phase III Study of Daratumumab/rHuPH20 (NSC- [id number]) + Lenalidomide or Lenalidomide as Post-Autologous Stem Cell Transplant Maintenance Therapy in Patients with Multiple Myeloma (MM) Using Minimal Residual Disease to Direct Therapy Duration (DRAMMATIC Study). Registration Information: Informed Consent Signed 01/03/2023 Registered Step 1 01/06/2023 Informed Consent Signed Step 2 07/22/2023 Randomization Date: 08/18/2023 Addendum 11/16/2023 Treatment Arm: TAC- 1 Lenalidomide Study ID [id number] Consent to optional samples Yes Study Status Active Patient was here for C11 - came at the last day of cycle 10. Patient overall feels he is okay, but patients said it is still a mild issue. Patients expressed concern for some memory issues last few cycles, but Masci believes it to be related to hearing and the patient saw ENT for hearing aids. Patient saw neurologist and has some follow-up exams. Discussed upcoming bmbx timeline. Treatment Plan: Treatment Previous Cycle Cycle Current Start Date Frequency End date Lenalidomide Cycle 1 Day 1 08/24/2023 Dose Reduced 05/12/2024 5mg Cycle 10 05/02/2024-05/29/2024 Held 05/02/2024-05/09/2024 Took 10 mg 05/10/2024 and 05/11/2024 and then dose reduced 05/12/2024 = 71% Cycle 11 05/30/2024-06/26/2024 10/19/2023 Daily, Cycle every 28 days Clinical Trial Specific Testing Test Dates Completed Due Date Bone Marrow Biopsy CTD 07/24/2023 Baseline Step 2 [x] 07/24/2024 12 months post Step 2 [] 07/24/2025 24 months post Step 2 [] 07/24/2026 36 months post Step 2 [] 07/24/2027 48 months post Step 2 [] QOLs PRO-CTCAE 08/17/2023 (Baseline) [x] 08/24/2023 (Cycle 1) [x] 09/21/2023 (Cycle 2) [x] 10/19/2023 (Cycle 3) [x] 11/16/2023 (Cycle 4) [x] 12/14/2023 (Cycle 5) [x] 01/11/2024 (Cycle 6) [x] 02/08/2024 (Cycle 7) [x] 03/07/2024 (Cycle 8) [x] 04/04/2024 (Cycle 9) [x] 05/02/2024 (Cycle 10) [x] 05/29/2024 (Cycle 11) [x] Day 1 of every cycle Baseline Weight (08/24/2023 date) 80.7 kg Current Weight 84.3 kg Creatinine Clearance 66.6 ml/min ECOG per ECOG- 1 05/29/24 Weight 84.3 kg (185 lb 13.6 oz) BSA 0 BMI 0 Temp 36.6 C (97.8 F) Resp 16 Pulse 60 BP 129/77 SpO2 99 % Bone Marrow - Plasma Cell % Free Light Chains M Protein Date Size (mm) Date [place] Lambda * IGG Date Serum Urine Diagnosis 08/24/2022 20% Diagnosis 10/26/2022 11.7 43.5 Diagnosis 10/26/2022 1.12 M protein present Baseline 07/30/2023 Less than 5%* Baseline 08/07/2023 4.7 2.5 Enrollment 07/31/2023 Cycle 1 0.22 0.00 08/24/2023 Cycle 1 4.1* 2.4* 08/24/2023 Cycle 1 0.28 0.00 09/21/2023 Cycle 2 11.7 8.7 09/21/2023 Cycle 2 0.17 0.01 10/19/2023 Cycle 3 15.5 10.5 10/19/2023 Cycle 3 0.16 0.01 11/16/2023 Cycle 4 17.4 21.4 11/16/2023 Cycle 4 0.20 0.00 12/14/2023 Cycle 5 19.4 23.1 12/14/2023 Cycle 5 0.00* 0.00 01/11/2024 Cycle 6 25.8 19.4 01/11/2024 Cycle 6 0.15 0.00 02/08/2024 Cycle 7 24.2 20.4 02/08/2024 Cycle 7 0.00* 0.00 03/07/2024 Cycle 8 22.0 15.3 03/07/2024 Cycle 8 0.23 0.0 04/04/2024 Cycle 9 22.4 17.5 04/04/2024 Cycle 9 0.24 0.00 05/02/2024 Cycle 10 23.2 16.5 05/02/2024 Cycle 10 0.00* 0.00 05/29/2024 Cycle 11 23.7 15.3 05/29/2024 Cycle 11 0.00 0.00 Lowest/Jacque = * Drug Accountability/Education - Completed on 05/29/2024. Patient given Cycle 11 diary. Patient did return cycle 10 - reviewed edits with patient. Use of the study medication diary and dosing instructions were reviewed with the patient. Patient verbalizes understanding of dosing of Revlimid: Capsules should be taken whole, with water, once daily (patient takes at HS). If a dose is missed, and it has been less than 12 hours since the preceding dose, the patient should take lenalidomide as soon as the patient remembers. If it has been more than 12 hours, the patient should skip the missed dose. Patient took 20/28 pills for the cycle - determining 71% compliance Patient receives drug from a private pharmacy. Lenalidomide Education and Counseling completed. Patient counseled on potential exposure to lenalidomide by , engage in abstinence or use a condom when engaging in sexual contact with WOC[facility], notify study doctor if female partner becomes , never share drug with anyone else, not to donate blood, semen, or sperm while taking drug and for 28 days after. Concomitant medications reviewed per protocol: Yes Patient reported changes to medication list: No changes since last visit. Current medications: Current use of anticoagulants: YES (see medications below if applicable) Anticoagulants: Eliquis 5 mg Current use of herbal preparations or medications: No Prophylactic shingles medication: Acyclovir 400 mg Current Outpatient Medications Medication Sig Start/Stop Use acyclovir (ZOVIRAX) 400 mg tablet Take 1 tablet by mouth twice daily. 05/01/2023 Prophylactic shingles ondansetron (ZOFRAN) 8 mg tablet Take 1 tablet by mouth every 8 hours as needed for nausea/vomiting. 10/26/2022 PRN Nausea clonazePAM (KLONOPIN) 0.5 mg tablet Take 0.5 mg by mouth once daily. 07/29/2023 Anxiety glimepiride (AMARYL) 4 mg tablet Take 2 capsules by mouth in AM & 1 capsule in PM. >5 years Type 2 amLODIPine (NORVASC) 5 mg tablet Take 5 mg by mouth once daily. 02/10/2021 Hypertension atorvastatin (LIPITOR) 10 mg tablet Take 10 mg by mouth once daily. 02/10/2021 Cholesterol losartan (COZAAR) 50 mg tablet Take 50 mg by mouth once daily. 02/10/2021 Hypertension Loperamide (Imodium Oral) Take 2 tablet by mouth as needed >5 years Diarrhea Sildenafil (Viagra) 50 mg tablet Take 50 mg by mouth as needed. >10 years ED Eliquis 5 mg tablet Take 1 tablet by mouth twice daily 03/23/2023 Preventative -blood thinner Melatonin 5 mg Take 1 tablet at bedtime 03/23/2023 Insomnia Revlimid 10 mg Take 1 capsule daily in the morning 08/24/2023 MM treatment Linzess 72 mcg Take 1 capsule for constipation symptoms once a day as needed for constipation 12/31/2023 Constipation Azithromycin (ZITHROMAX) 500 mg tablet Take 1 tablet by mouth daily 02/02/2024 Completed 02/05/2024 Antibiotic No current facility-administered medications for this visit. Medical History: PAST MEDICAL HISTORY Diagnosis Date Arthritis Treated with medication Chronic diarrhea Resolved and now constipation Diabetes mellitus (HCC) Treated with medication Essential hypertension Treated with medication Mixed hyperlipidemia Treated with medication PAST MEDICAL HISTORY Diagnosis Date Arthritis Treated with medication Chronic diarrhea Resolved Malignant melanoma (HCC) On back removed - precancerous and 06/2022 non cancerous Mixed hyperlipidemia Treated with medication Multiple myeloma not having achieved remission (HCC) Treated with medication Primary hypertension Treated with medication Pulmonary embolism (HCC) Treated with medication Right bundle branch block Treated with medication Type 2 diabetes mellitus, without long-term current use of insulin (HCC) Treated with medication Surgical History: PAST SURGICAL HISTORY Procedure Laterality Date REPAIR INCISIONAL HERNIA,REDUCIBLE Resolved 8th grade SKIN BX, 1 LESION 06/2022 non cancerous Baseline Toxicities per CTCAE v. 5: All predate therapy, are chronic conditions and will not be actively followed unless they worsen during the clinical trial. Hyperglycemia; Grade 1: Start Date: >5 years PRIOR TO STUDY Drugs to Treat: Glimepiride Action Required: None Outcome: Ongoing. (Chronic) Diarrhea; Grade 1: INTERMITTENT Start Date: >5 years PRIOR TO STUDY Drugs to Treat: Imodium Action Required: None Outcome: Ongoing. Anemia; Grade 1: Start Date: Intermittent PRIOR TO STUDY 07/24/2023 RESOLVED: 08/24/2023 but Grade 1 again 09/21/2023 Drugs to Treat: None. Action Required: None Outcome: Ongoing Aspartate aminotransferase decreased; Grade 1: Start Date: Intermittent PRIOR TO STUDY Drugs to Treat: None. Action Required: None Outcome: Ongoing Alanine aminotransferase decreased; Grade 1: Start Date: Intermittent PRIOR TO STUDY 07/24/2023 STOPPED:11/16/2023 Drugs to Treat: None. Action Required: None Outcome: RESOLVED Insomnia; Grade 1: Start Date: Intermittent PRIOR TO STUDY 07/21/2023 Drugs to Treat: None. Action Required: None Outcome: Ongoing. Weight Loss; Grade 1: 3.5 Percent Increase since - Intentional Start Date: Intentional Loss - PRIOR TO STUDY 07/21/2023 RESOLVED:11/16/2023 Drugs to Treat: None. Action Required: None Outcome: RESOLVED Hypophosphatemia:Start Date: PRIOR TO STUDY 07/24/2023 STOPPED:08/24/2023 Drugs to Treat: None. Action Required: None Outcome: RESOLVED Lymphocyte Count Decreased; Grade 1: Start Date: Intermittent PRIOR TO STUDY- Possibly related to Revlimid and Drugs to Treat: None. Action Required: None Outcome: Ongoing Toxicities per CTCAE v. 5: White Blood Cell Count Decreased; Grade 2: Related to Revlimid and Influenza Start Date: 09/21/2023 Increased: 02/08/2024 Drugs to Treat: None. Action Required: None Outcome: ONGOING Bone Pain: Grade 1; Bilateral Thigh: Unlikely related to Revlimid Start Date: PRIOR TO STUDY 08/24/2023 INCREASED 10/19/2023 Decreased to almost resolved: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 impairment, specifically his delayed recall was 1/5 but was able to remember all 5 words after multiple-choice cue. There are some concern for possible neurodegenerative process, discussed neuropsychological testing for further evaluation and patient is amenable. Additionally, will evaluate for other causes of dementia including nutrition deficit and will order basic blood work including B12, folate, TSH and syphilis. Patient also with hearing loss and is going to be fitted for hearing aids which may be beneficial as well. Will refrain from starting medications today. Encouraged conservative therapy including increasing water intake, cognitive exercises and physical exercises. Does have what sounds like history of REM sleep disorder but no signs or symptoms of Parkinson's disease at this time. Patient would like to resume driving if possible. Discussed obtaining an occupational therapy evaluation and patient and family agree to this. Patient and agreeable to treatment plan of care at this time, all questions were answered. Patient to follow-up in 3 to 4 months or sooner should any symptoms change or worsen. Oseas was seen today for new patient evaluation. Diagnoses and all orders for this visit: Mild cognitive impairment Altered mental status, unspecified altered mental status type - CONSULT TO NEUROLOGY Multiple myeloma not having achieved remission (HCC) - CONSULT TO NEUROLOGY Memory loss - VITAMIN B12; Future - FOLATE, SERUM; Future - SYPHILIS TOTAL W/REFLEX; Future - NEUROPSYCHOLOGICAL TESTING CONSULT - CONSULT TO INSIDE SALES ASSISTANT; Future - THYROID STIMULATING HORMONE; Future He should return to see me in 3-4 months. I spent a total of 60 minutes on the date of the service which included preparing to see the patient, [id number] patient care, completing clinical documentation, obtaining and/or reviewing separately obtained history, performing a medically appropriate examination, counseling and educating the patient/family/caregiver, and ordering medications, tests, or procedures. Betsy Kemp PA-C [facility] This document has been created with the use of voice recognition technology. It may contain inaccuracies: (e.g. misspellings, inaccurate syntax or word sense) that have escaped review. documented in this encounter [facility] 05-17-2024 Telephone encounter Note TC to about appointment next week. Pts states she has seen neurosurgery and wanted to see Dr. Keshawn Leone but could not get in with him until May. Someone referred them to see Betsy for memory. Advised that we would see for memory only and she was agreeable. Charla Cid LPN [facility] 05-17-2024 Miscellaneous Notes TC to about appointment next week. Pts states she has seen neurosurgery and wanted to see Dr. Keshawn Leone but could not get in with him until May. Someone referred them to see Betsy for memory. Advised that we would see for memory only and she was agreeable. Charla Cid LPN documented in this encounter [facility] 05-13-2024 History of Present illness Narrative Patient verified by name and , vaccines administered, vis given each vaccines Shae Gunderson MA documented in this encounter [facility] 05-10-2024 Telephone encounter Note Called the patient today and no answer - called spouse and discussed restarting Revlimid - they have no received the 5mg dose yet - starting 10mg until the dose reduction comes. Patient aware of plan at this time and going to contact PCP for continued low heart rate and increased blood pressure issues. Temo Gill RN [facility] 05-10-2024 Miscellaneous Notes Called the patient today and no answer - called spouse and discussed restarting Revlimid - they have no received the 5mg dose yet - starting 10mg until the dose reduction comes. Patient aware of plan at this time and going to contact PCP for continued low heart rate and increased blood pressure issues. Temo Gill RN documented in this encounter [facility] 05-07-2024 Telephone encounter Note The following approved medication requests have been transmitted electronically. Requested Prescriptions Signed Prescriptions Disp Refills lenalidomide (REVLIMID) 5 mg capsule 28 capsule 0 Sig: Take 1 capsule by mouth once daily. FOR 28 DAYS Authorizing Provider: CONNIE MCCAIN DO [facility] 05-07-2024 Miscellaneous Notes The following approved medication requests have been transmitted electronically. Requested Prescriptions Signed Prescriptions Disp Refills lenalidomide (REVLIMID) 5 mg capsule 28 capsule 0 Sig: Take 1 capsule by mouth once daily. FOR 28 DAYS Authorizing Provider: CONNIE MCCAIN DO .[employer] auth # [id number] Prescription Refill Information The patient has been identified by name and date of : Yes Caregiver verified no other encounters exist for this prescription request: Yes Caregiver confirmed with patient/requestor that no other refills are due, in the near future, with this provider at this time: Yes The last office visit in the department: 05/02/2024 Does the patient have a future office visit with this provider/department: Yes Requested Prescriptions Pending Prescriptions Disp Refills lenalidomide (REVLIMID) 5 mg capsule 28 capsule 0 Sig: Take 1 capsule by mouth once daily. FOR 28 DAYS Terri Henry LPN May 07, 2024 2:10 PM Terri Henry LPN It is actually a continuous daily dose. Connie Mccain DO documented in this encounter [facility] 05-07-2024 Telephone encounter Note .[employer] auth # [id number] Prescription Refill Information The patient has been identified by name and date of : Yes Caregiver verified no other encounters exist for this prescription request: Yes Caregiver confirmed with patient/requestor that no other refills are due, in the near future, with this provider at this time: Yes The last office visit in the department: 05/02/2024 Does the patient have a future office visit with this provider/department: Yes Requested Prescriptions Pending Prescriptions Disp Refills lenalidomide (REVLIMID) 5 mg capsule 28 capsule 0 Sig: Take 1 capsule by mouth once daily. FOR 28 DAYS Terri Henry LPN May 07, 2024 2:10 PM Terri Henry LPN [facility] 05-07-2024 Telephone encounter Note It is actually a continuous daily dose. Connie Mccain DO [facility] 05-07-2024 Telephone encounter Note Disregard rx per Dr. Mccain. New RX for 5 mg tablets will be written , this [employer] auth number is now overwritten to be acceptable for 5 mg tablets. Terri Henry LPN [facility] 05-07-2024 Miscellaneous Notes Disregard rx per Dr. Mccain. New RX for 5 mg tablets will be written , this [employer] auth number is now overwritten to be acceptable for 5 mg tablets. Terri Henry LPN Rx refill for revlimid pended to be escripted. [employer] auth number [id number]. Flor Canales LPN documented in this encounter [facility] 05-06-2024 Telephone encounter Note Rx refill for revlimid pended to be escripted. [employer] auth number [id number]. Flor Canales LPN [facility] 05-06-2024 Telephone encounter Note Left a voicemail for patient on 's phone at this time. Temo Gill RN [facility] 05-06-2024 Miscellaneous Notes Left a voicemail for patient on 's phone at this time. Temo Gill RN documented in this encounter [facility] 05-02-2024 History of Present illness Narrative IRB # [id number], [facility]# [id number] study entitled Phase III Study of Daratumumab/rHuPH20 (NSC- [id number]) + Lenalidomide or Lenalidomide as Post-Autologous Stem Cell Transplant Maintenance Therapy in Patients with Multiple Myeloma (MM) Using Minimal Residual Disease to Direct Therapy Duration (DRAMMATIC Study). Registration Information: Informed Consent Signed 01/03/2023 Registered Step 1 01/06/2023 Informed Consent Signed Step 2 07/22/2023 Randomization Date: 08/18/2023 Addendum 11/16/2023 Treatment Arm: TAC- 1 [place]alid[place] [id number] Consent to optional samples Yes Study Status Active Patient was here for C10D1. Patient overall feels he is okay, but patients said it is still a mild issue. Patients expressed concern for some memory issues last few cycles, but [facility] believes it to be related to hearing and the patient saw ENT for hearing aids. put in a neuro consult based on MRI findings. Treatment Plan: Treatment Previous Cycle Cycle Current Start Date Frequency End date Lenalidomide Cycle 1 Day 1 08/24/2023 Cycle 9 04/04/2024-05/01/2024 Cycle 10 05/02/2024-05/29/2024 10/19/2023 Daily, Cycle every 28 days Clinical Trial Specific Testing Test Dates Completed Due Date Bone Marrow Biopsy CTD 07/24/2023 Baseline Step 2 [x] 07/24/2024 12 months post Step 2 [] 07/24/2025 24 months post Step 2 [] 07/24/2026 36 months post Step 2 [] 07/24/2027 48 months post Step 2 [] QOLs PRO-CTCAE 08/17/2023 (Baseline) [x] 08/24/2023 (Cycle 1) [x] 09/21/2023 (Cycle 2) [x] 10/19/2023 (Cycle 3) [x] 11/16/2023 (Cycle 4) [x] 12/14/2023 (Cycle 5) [x] 01/11/2024 (Cycle 6) [x] 02/08/2024 (Cycle 7) [x] 03/07/2024 (Cycle 8) [x] 04/04/2024 (Cycle 9) [x] 05/02/2024 (Cycle 10) [x] 05/30/2024 (Cycle 10) [x] Day 1 of every cycle Baseline Weight (08/24/2023 date) 80.7 kg Current Weight 83.3 kg (+2.7%) Creatinine Clearance 77.8 ml/min ECOG per ECOG- 1 05/02/24 Weight 83.3 kg (183 lb 9.6 oz) BSA 0 BMI 0 Resp 16 Temp 36.3 C (97.4 F) Pulse 53 ! BP 146/79 SpO2 100 % !: Data is abnormal Bone Marrow - Plasma Cell % Free Light Chains M Protein Date Size (mm) Date Dakota Lambda * IGG Date Serum Urine Diagnosis 08/24/2022 20% Diagnosis 10/26/2022 11.7 43.5 Diagnosis 10/26/2022 1.12 M protein present Baseline 07/30/2023 Less than 5%* Baseline 08/07/2023 4.7 2.5 Enrollment 07/31/2023 Cycle 1 0.22 0.00 08/24/2023 Cycle 1 4.1* 2.4* 08/24/2023 Cycle 1 0.28 0.00 09/21/2023 Cycle 2 11.7 8.7 09/21/2023 Cycle 2 0.17 0.01 10/19/2023 Cycle 3 15.5 10.5 10/19/2023 Cycle 3 0.16 0.01 11/16/2023 Cycle 4 17.4 21.4 11/16/2023 Cycle 4 0.20 0.00 12/14/2023 Cycle 5 19.4 23.1 12/14/2023 Cycle 5 0.00* 0.00 01/11/2024 Cycle 6 25.8 19.4 01/11/2024 Cycle 6 0.15 0.00 02/08/2024 Cycle 7 24.2 20.4 02/08/2024 Cycle 7 0.00* 0.00 03/07/2024 Cycle 8 22.0 15.3 03/07/2024 Cycle 8 0.23 0.0 04/04/2024 Cycle 9 22.4 17.5 04/04/2024 Cycle 9 0.24 0.00 05/02/2024 Cycle 10 23.2 16.5 05/02/2024 Cycle 10 0.00* 0.00 Lowest/Jacque = * Drug Accountability/Education - Completed on 05/02/2024. Patient given Cycle 10 diary. Patient did return cycle 9 - reviewed edits with patient. Use of the study medication diary and dosing instructions were reviewed with the patient. Patient verbalizes understanding of dosing of Revlimid: Capsules should be taken whole, with water, once daily (patient takes at HS). If a dose is missed, and it has been less than 12 hours since the preceding dose, the patient should take lenalidomide as soon as the patient remembers. If it has been more than 12 hours, the patient should skip the missed dose. Patient took 28/28 pills for the cycle - determining 100% compliance Patient receives drug from a private pharmacy. Lenalidomide Education and Counseling completed. Patient counseled on potential exposure to lenalidomide by , engage in abstinence or use a condom when engaging in sexual contact with [facility], notify study doctor if female partner becomes , never share drug with anyone else, not to donate blood, semen, or sperm while taking drug and for 28 days after. Concomitant medications reviewed per protocol: Yes Patient reported changes to medication list: No changes since last visit. Current medications: Current use of anticoagulants: YES (see medications below if applicable) Anticoagulants: Eliquis 5 mg Current use of herbal preparations or medications: No Prophylactic shingles medication: Acyclovir 400 mg Current Outpatient Medications Medication Sig Start/Stop Use acyclovir (ZOVIRAX) 400 mg tablet Take 1 tablet by mouth twice daily. 05/01/2023 Prophylactic shingles ondansetron (ZOFRAN) 8 mg tablet Take 1 tablet by mouth every 8 hours as needed for nausea/vomiting. 10/26/2022 PRN Nausea clonazePAM (KLONOPIN) 0.5 mg tablet Take 0.5 mg by mouth once daily. 07/29/2023 Anxiety glimepiride (AMARYL) 4 mg tablet Take 2 capsules by mouth in AM & 1 capsule in PM. >5 years Type 2 amLODIPine (NORVASC) 5 mg tablet Take 5 mg by mouth once daily. 02/10/2021 Hypertension atorvastatin (LIPITOR) 10 mg tablet Take 10 mg by mouth once daily. 02/10/2021 Cholesterol losartan (COZAAR) 50 mg tablet Take 50 mg by mouth once daily. 02/10/2021 Hypertension Loperamide (Imodium Oral) Take 2 tablet by mouth as needed >5 years Diarrhea Sildenafil (Viagra) 50 mg tablet Take 50 mg by mouth as needed. >10 years ED Eliquis 5 mg tablet Take 1 tablet by mouth twice daily 03/23/2023 Preventative -blood thinner Melatonin 5 mg Take 1 tablet at bedtime 03/23/2023 Insomnia Revlimid 10 mg Take 1 capsule daily in the morning 08/24/2023 MM treatment Linzess 72 mcg Take 1 capsule for constipation symptoms once a day as needed for constipation 12/31/2023 Constipation Azithromycin (ZITHROMAX) 500 mg tablet Take 1 tablet by mouth daily 02/02/2024 Completed 02/05/2024 Antibiotic No current facility-administered medications for this visit. Medical History: PAST MEDICAL HISTORY Diagnosis Date Arthritis Treated with medication Chronic diarrhea Resolved and now constipation Diabetes mellitus (HCC) Treated with medication Essential hypertension Treated with medication Mixed hyperlipidemia Treated with medication PAST MEDICAL HISTORY Diagnosis Date Arthritis Treated with medication Chronic diarrhea Resolved Malignant melanoma (HCC) On back removed - precancerous and 06/2022 non cancerous Mixed hyperlipidemia Treated with medication Multiple myeloma not having achieved remission (HCC) Treated with medication Primary hypertension Treated with medication Pulmonary embolism (HCC) Treated with medication Right bundle branch block Treated with medication Type 2 diabetes mellitus, without long-term current use of insulin (HCC) Treated with medication Surgical History: PAST SURGICAL HISTORY Procedure Laterality Date REPAIR INCISIONAL HERNIA,REDUCIBLE Resolved 8th grade SKIN BX, 1 LESION 06/2022 non cancerous Baseline Toxicities per [facility]CAE v. 5: All predate therapy, are chronic conditions and will not be actively followed unless they worsen during the clinical trial. Hyperglycemia; Grade 1: Start Date: >5 years PRIOR TO STUDY Drugs to Treat: Glimepiride Action Required: None Outcome: Ongoing. (Chronic) Diarrhea; Grade 1: INTERMITTENT Start Date: >5 years PRIOR TO STUDY Drugs to Treat: Imodium Action Required: None Outcome: Ongoing. Anemia; Grade 1: Start Date: Intermittent PRIOR TO STUDY 07/24/2023 RESOLVED: 08/24/2023 but Grade 1 again 09/21/2023 Drugs to Treat: None. Action Required: None Outcome: Ongoing Aspartate aminotransferase decreased; Grade 1: Start Date: Intermittent PRIOR TO STUDY Drugs to Treat: None. Action Required: None Outcome: Ongoing Alanine aminotransferase decreased; Grade 1: Start Date: Intermittent PRIOR TO STUDY 07/24/2023 STOPPED:11/16/2023 Drugs to Treat: None. Action Required: None Outcome: RESOLVED Insomnia; Grade 1: Start Date: Intermittent PRIOR TO STUDY 07/21/2023 Drugs to Treat: None. Action Required: None Outcome: Ongoing. Weight Loss; Grade 1: 3.5 Percent Increase since - Intentional Start Date: Intentional Loss - PRIOR TO STUDY 07/21/2023 RESOLVED:11/16/2023 Drugs to Treat: None. Action Required: None Outcome: RESOLVED Hypophosphatemia:Start Date: PRIOR TO STUDY 07/24/2023 STOPPED:08/24/2023 Drugs to Treat: None. Action Required: None Outcome: RESOLVED Lymphocyte Count Decreased; Grade 1: Start Date: Intermittent PRIOR TO STUDY- Possibly related to Revlimid and Drugs to Treat: None. Action Required: None Outcome: Ongoing Toxicities per CTCAE v. 5: White Blood Cell Count Decreased; Grade 2: Related to Revlimid and Influenza Start Date: 09/21/2023 Increased: 02/08/2024 Drugs to Treat: None. Action Required: None Outcome: ONGOING Bone Pain: Grade 1; Bilateral Thigh: Unlikely related to Revlimid Start Date: PRIOR TO STUDY 08/24/2023 INCREASED 10/19/2023 Decreased to almost resolved: 02/08/2024 Drugs to Treat: None. Action Required: EMG and PT Outcome: Improving drastically Neutrophil Count Decreased; Grade 3: Possibly Related to Revlimid and Vaccines Start Date: 04/04/2024 Increased: 05/02/2024 Drugs to Treat: None. Action Required:DRUG HELD FOR A WEEK TO START Outcome:Ongoing Memory Impairment; Grade 1: Unrelated to Revlimid Start Date: 02/08/2024 witnessed by RN but reported as PRIOR TO STUDY recently by patients Drugs to Treat: NoneAction Required: None Outcome: Ongoing Sinus Bradycardia; Grade 1: Start Date: 04/04/2024 Possibly related to Revlimid and Drugs to Treat: None. Action Required: None Outcome: Ongoing Hypokalemia; Grade 1: Start Date: 05/02/2024 Possibly related to Revlimid and Drugs to Treat: Potassium supplement ordered Action Required: None Outcome: Ongoing Platelet Count Decreased; Grade 1: Start Date: 01/01/2023 Drugs to Treat: None. Action Required: None Outcome: Ongoing Patient turned in a 24 hour urine: Yes Chart sent the overseeing physician to review CTCAE toxicities. Patient knows to RTC 05/30/2024 for Cycle 11. Patient knows to call in the interim for any questions or concerns. Patient has contact information for Uma Gill Research Nurse and Dr. Mccain, along with the office number. Patient meets all Criteria for Study Participation: Yes REID Bynum, RN Clinical Research Nurse [phone] documented in this encounter [facility] 05-02-2024 History of Present illness Narrative Chief Complaint Patient presents with: Established Patient HPI: Oseas Joseph is a 73 year old male who presents here today for follow up MM. Per Dr. Mccain's previous note: H/o type 2 diabetes, high cholesterol, hypertension and right bundle branch block. Patient originally presented to the emergency room at [facility] on 04/19/2022 with new onset of confusion that day which had been worsening. Laboratory work-up significant for hypokalemia. CT of the brain was unremarkable. He was admitted. During hospitalization it was noted that he had been having diarrhea for 6 to 8 weeks. Stool studies were positive for Campylobacter, blood and lactoferrin. C. difficile was negative. CT of the abdomen pelvis on 04/21/2022 noted abnormal pericholecystic edema without gallstones. Renal cysts and colonic diverticulosis were noted. He was found to have elevation of sed rate to 39, CRP 134. His albumin was 2.3. IgA low at 37. He was discharged on azithromycin, potassium and magnesium supplement. He was seen in the outpatient setting for follow-up visit on 07/11/2022. He continued to have one episode of explosive diarrhea daily. This had been going on for about 8 months. CBC on 07/11 showed a white count of 6400. Differential was normal. Hemoglobin 14.9 g/dL. Platelet count 275,000. Chemistries significant for creatinine of 1.29 g/dL. Previously 1.13 g/dL on 04/27/2022. Calcium was 9.3 mg/dL. Total bilirubin, AST, ALT and alkaline phosphatase were normal. LDH was 181. C-reactive protein was less than 2.09. Total protein was 8.8 g/dL. Total IgG was 2462 mg/dL. IgA decreased to 28 mg/dL. IgM normal at 32 mg/dL. On protein electrophoresis, patient was found to have 2M spikes both IgG lambda by immunofixation. For spike was quantitated at 1.2 g/dL and the second was quantitated at 0.6 g/dL. Cytoplasmic and perinuclear ANCA both negative. Atypical p-ANCA negative. Patient described diarrhea as loose, eran stools sometimes explosive typically one bowel movement per day however. He had not observed any blood. Had a colonoscopy [address] Arteaga. His appetite was normal. He had not lost weight. Denied reflux and nausea. He did get abdominal bloating associated with the diarrhea. He denied musculoskeletal pain. He denied symptoms of sensory neuropathy. He sees an team supervisor once a year for dilated exam. He has not been told he has retinopathy. Recent removal of early melanoma back. Blue nevus right ankle--required WLE--scheduled. PMR--about 15 years ago. Patient underwent colonoscopy on 09/21/2022. Preparation of the colon was fair. -One 6 mm polyp at the ileocecal valve, removed with a hot snare. Resected and retrieved. -One 5 mm polyp in the ascending colon, removed with a hot snare. Resected and retrieved. -Congested mucosa in the descending colon, at the splenic flexure, in the ascending colon and in the cecum. Biopsied. -Diverticulosis in the recto-sigmoid colon, in the sigmoid colon and in the descending colon. -Stool in the rectum, in the sigmoid colon, in the descending colon and at the hepatic flexure. Fluid aspiration performed. -The examined portion of the ileum was normal. Biopsied. Pathology: A. Ileocecal valve polyp, biopsy: -Consistent with fibrolipomatous polyp. -See comment. B. Small bowel, biopsy: -No pathologic change. C. Cecum, biopsy: -Mild melanosis coli. D. Colon, random biopsy: -Mild melanosis coli. E. Ascending colon polyp, biopsy: -Fragments of tubular adenoma. B, C, D & E - No congophilic material identified. Congo red stain with matched control is negative. ADDENDUM C & D. No congophilic material is noted in these biopsies on light and polarized microscopy. Congo Red stain with matched control was used in the evaluation of this case. He was diagnosed with pancreatic insufficiency and was to start pancreatic enzyme replacement. Patient had a venous duplex ultrasound on 12/16/2022 for right leg pain. That study demonstrated no evidence of DVT in the right leg. He developed chest pain and increasing shortness of breath. Went to the ED on 01/16/2023. PE protocol chest CT demonstrated multiple bilateral pulmonary emboli involving the distal portion of both the right and left main pulmonary arteries as well as branches of the upper and lower lobe pulmonary arteries, more prominent on the right side. Platelet count was 67,000. Patient was admitted and placed on unfractionated heparin with bolus. The next morning platelet count was 62,000. He was rotated to apixaban and discharged. Echocardiogram performed 01/17/2023 demonstrated normal LV size. There was moderate concentric LVH. Left ventricular systolic function was normal with an estimated ejection fraction at 60%. There was stage I diastolic dysfunction. The pulmonary artery systolic pressure was 58 mmHg. The global longitudinal strain was -11.5% (abnormal). The global longitudinal strain was moderately abnormal. (Previous echocardiogram 04/20/2022 demonstrated right ventricular systolic pressure estimated at 22 mmHg. Diastolic function was indeterminate. Right ventricular strain was not determined). His chest pain has improved. He is still short of breath with heavier exertion and sometimes walking from room to room he finds himself breathing heavier. He has been taking apixaban 10 mg twice daily. No bleeding issues. Previous therapy: 1) RVd. Cycle #1 began 11/09/2022. 2) Zometa. 3) ASCT. Transplant Summary: BMT Information ASCR infused on 06/02/2023 Planned Proposed Protocols: IP BMT AUTO MELPHALAN 200 Planned Preparative Regimen Drug: Melphalan Planned Mobilization Agent: G-CSF, Plerixafor Planned Stem Cell Source: Peripheral blood stem cells BMT Transplant Details # of cells: 6.16 Saw neurology. 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 Scheduled for EMG 01/16. Seen in the ED on 01/27/2024 for an episode of confusion that was secondary to hypoglycemia. Evidently had influenza diagnosed prior to that. Was then admitted for neutropenic fever on 01/31/2024. ANC was 600 at time of admission. Influenza A positive. Stool positive for Campylobacter. Was treated with high-dose Tamiflu secondary to underlying immunocompromise. Discharged on azithromycin 500 mg daily for 14 days. No new concerns today. Pt. here today with spouse. Appetite:Good. Energy level:Ok. Denies fevers. Mouth:denies sores Resp:denies cough or sob Cardiac:denies chest pain/palpitations GI:denies abd pain, n/v, moving bowels regularly :denies dysuria/hematuria Extrem:denies pain Neuro:denies symptoms of neuropathy Skin:denies rashes Heme:denies bleeding The ROS is otherwise negative. Past medical history, appointments, medications, allergies reviewed. No changes. EXAM: BP 146/79 Pulse (!) 53 Temp 36.3 C (97.4 F) (Temporal) Wt 83.3 kg (183 lb 9.6 oz) SpO2 100% BMI 24.09 kg/m APPEARANCE Well appearing, alert, in no acute distress, well-hydrated, well nourished. HEART RRR with normal S1 and S2, no murmurs LUNG clear to auscultation LYMPH NODES No cervical lymphadenopathy, No supraclavicular lymphadenopathy, and No axillary lymphadenopathy. ABDOMEN bowel sounds normoactive, soft, non-tender, non-distended EXTREMITIES No edema NEURO Awake, alert and oriented x 3, Normal gait, and No involuntary motions. SKIN Skin color, texture, turgor normal, no suspicious rashes or lesions LABS: Latest Ref Rng 04/04/2024 05/02/2024 WBC 3.70 - 11.00 k/uL 2.68 (L) 2.33 (L) RBC 4.20 - 6.00 m/uL 3.72 (L) 3.86 (L) Hemoglobin 13.0 - 17.0 g/dL 11.6 (L) 12.2 (L) Hematocrit 39.0 - 51.0 % 35.0 (L) 36.5 (L) MCV 80.0 - 100.0 fL 94.1 94.6 MCH 26.0 - 34.0 pg 31.2 31.6 MCHC 30.5 - 36.0 g/dL 33.1 33.4 RDW-CV 11.5 - 15.0 % 15.0 14.0 Platelet Count 150 - 400 k/uL 130 (L) 125 (L) MPV 9.0 - 12.7 fL 9.9 9.5 Neut% % 39.5 37.4 Abs Neut (ANC) 1.45 - 7.50 k/uL 1.06 (L) 0.87 (L) Lymph% % 33.2 38.6 Abs Lymph 1.00 - 4.00 k/uL 0.89 (L) 0.90 (L) Morton% % 13.1 13.7 Abs Morton <0.87 k/uL 0.35 0.32 Eosin% % 11.9 8.6 Abs Eosin <0.46 k/uL 0.32 0.20 Baso% % 1.9 1.3 Abs Baso <0.11 k/uL 0.05 0.03 Immature Gran % % 0.4 0.4 IMMATURE GRANS (ABS) <0.10 k/uL <0.03 <0.03 NRBC /100 WBC 0.0 0.0 Absolute nRBC <0.01 k/uL <0.01 <0.01 DTYPE Auto Auto CMP/LD/MM labs: Pending ASSESSMENT/PLAN: 1. Multiple myeloma not having achieved remission (HCC) - ICD9: 203.00, ICD10: C90.[address] Mccain's previous note: Assessment: -The patient is a 73-year-old male has a past medical history significant for diabetes and chronic diarrhea that was characterized by one explosive watery stool daily (was diagnosed with pancreatic insufficiency). Was hospitalized 03/2022 when diarrhea significantly worsened and he was diagnosed with and treated for Campylobacter infection. During that evaluation, was found to have two IgG lambda monoclonal antibodies. He did not have hypercalcemia or anemia but had elevated serum creatinine (which may have been related to volume depletion when hospitalized for diarrhea and mental status change). 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 Low to intermediate risk disease (PCs 20%). -Imaging--no lytic lesions on whole body CT; Liver cyst and splenic nodule (6-12 month f/u MRI recommended). -Bone marrow negative for amyoid. -Colonic biopsies negative for amyloid. -Subsequent MRI of spine and pelvis revealed two T2 hyperintense foci in the pelvis, one in the left sacral rebeka and one in the right ischium. -FISH panel revealed (11;14) (q13;q32) (IGH/CCND1) translocation consistent with the presence of a plasma cell neoplasm associated with standard risk disease. -R-ISS stage I (serum beta microglobulin less than 3.5 mg/L and serum albumin greater than 3.5 g/dL; standard risk disease by FISH testing as outlined above and serum LDH less than upper limit of normal). -VGPR as of 11/2023. -Reviewed results from 03/07. Continues to maintain VGPR. -Reviewed CBC. -ECOG currently 1. -Recurrent infection with Campylobacter. Treated. -Memory issues. 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 Plan: -Continue lenalidomide. -Monthly Zometa (will receive dose 12 of 12 today). -CBC, chemistries and serum protein electrophoresis and immunofixation as well as 24-hour urine collection for electrophoresis and immunofixation monthly per protocol. -Referral to neurosurgery for evaluation of schwannoma. -Referral to neurology for evaluation of dementia. -No driving for now. He expressed an understanding and agreement. Supportive care: ID: Plan: -Receiving posttransplant vaccinations. -His will message ID about seeing one of the physicians at main campus regarding recurrent Campylobacter infection. Heme: -As above. Skeletal: -Only lytic lesions observed over those in the pelvic bones on MRI initially. Plan: -Continue monthly Zometa tomorrow. -Can change to every 3 months after today's dose. Assessment: -B/L PE on ASA prophylaxis. -Previous evidence of pulmonary hypertension on echocardiogram. -Tolerating apixaban well. Plan: -Continue apixaban. 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 Likely a consequence of nerve impingement as evidenced by previous MRI and not related to therapy for myeloma. Subsequent EMG confirmed this. - Overall tolerating revlimid well except for low neutrophils. - Reviewed CBC with pt. and spouse. - CMP/LD/MM labs pending. - Continue current medications. - No bleeding on xarelto-Continue. - Follow up with Neuro. re:dementia. - Hold revlimid x 1 week and repeat CBC in one week. - Follow up with Dr. Mccain next OV. - Pt. aware to call office with any questions/concerns. The patient indicates understanding of these issues and agrees with the plan. All documentation from previous visit of 04/04/24-Dr. Mccain was copied and pasted, documentation has been reviewed and edited as necessary for today's visit. Bright Thao APRN.EVELIN documented in this encounter [facility] 04-09-2024 History of Present illness Narrative NEUROSURGERY CONSULT NOTE Geoff Young MD Date of visit: April 09, 2024 Patient Name: Mr.Jeffrey Sania Joseph Date of : 1950 Current Age: [age] year old Sex: male MRN/E# [id number] Last Office Visit: Visit date not found CLINICAL SUMMARY: * IgG lambda multiple myeloma dx in 2021, - s/p autologous stem cell transplantation on 06/20/2023 * Recent removal of early melanoma back * Left vestibular schwannoma 2 mm, MRI 03/29/2024 - sensorineural hearing loss, left worse than right HISTORY OF PRESENT ILLNESS : Oseas Joseph is a 73 year old right-handed male presenting with and daughter. He has a past medical history of Arthritis, Multiple Myeloma, diverticulitis, HTN, PE, HLD and DM2. The patient has been following with Dr. Connie Mccain for known multiple myeloma with diagnosis in 2021. More recently at office visit in January 2024, patient expressed memory issues and concern for early dementia. MRI brain recommended and obtained 03/22/2024 that showed no evidence of parenchymal mass lesion, a 2 mm focus of enhancement in the left IAC was nonspecific, and could be a small schwannoma. Patient then underwent MRI skull base recommended by radiology that confirmed presence of a 2 mm focus of enhancement in the lateral third of the left IAC. Patient subsequently referred to neurosurgery, prompting visit today. Today he and his family stated that around time of diagnosis of multiple myeloma he had developed some issues with memory. Daughter reports his short term memory has progressively worsened. He notes he has had some hearing loss. He did have recent audiogram. He is here for image review, evaluation and plan of care. 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 PAST MEDICAL HISTORY Diagnosis Date Arthritis Chronic diarrhea Malignant melanoma (HCC) Mixed hyperlipidemia Multiple myeloma not having achieved remission (HCC) 10/26/2022 Other hyperlipidemia 04/17/2023 Primary hypertension 04/17/2023 Pulmonary embolism (HCC) Right bundle branch block 04/17/2023 Type 2 diabetes mellitus, without long-term current use of insulin (HCC) 04/17/2023 PAST SURGICAL HISTORY Procedure Laterality Date REPAIR INCISIONAL HERNIA,REDUCIBLE 8th grade SKIN BX, 1 LESION 06/2022 FAMILY HISTORY Problem Relation Age of Onset Diabetes Mother Hypertension Mother Renal Disease Mother Hypertension Father Diabetes Father Hypertension Sister Diabetes Sister No Known Problems Sister No Known Problems Sister No Known Problems Sister No Known Problems Sister Heart Sister Hypertension Brother Diabetes Brother Hyperlipidemia Brother Heart Brother Hypertension Maternal Grandmother Diabetes Maternal Grandmother Colon Cancer Paternal Grandmother Hypertension Paternal Grandfather ALLERGIES No Known Allergies Current Outpatient Medications Medication Sig Dispense Refill lenalidomide (REVLIMID) 10 mg capsule TAKE 1 CAPSULE BY MOUTH DAILY FOR 28 DAYS 28 capsule 0 rivaroxaban (XARELTO) 20 mg tablet Take 1 tablet by mouth daily with dinner. 30 tablet 5 acyclovir (ZOVIRAX) 400 mg tablet Take 1 tablet by mouth two times a day. 180 tablet 3 sildenafil (VIAGRA) 50 mg tablet Take 50 mg by mouth as needed. loperamide HCl (IMODIUM ORAL) Take by mouth as needed. glimepiride (AMARYL) 2 mg tablet Take 1 tablet by mouth daily with breakfast. Take 2 mg twice a day. May increase to 4mg BID if your PCP requests so. (Patient taking differently: Take 4 mg by mouth two times a day with meals. Take 2 mg twice a day. May increase to 4mg BID if your PCP requests so.) ondansetron (ZOFRAN) 8 mg tablet Take 1 tablet by mouth every 8 hours as needed for nausea/vomiting. 30 tablet 2 clonazePAM (KLONOPIN) 0.5 mg tablet Take 0.5 mg by mouth once daily. amLODIPine (NORVASC) 5 mg tablet Take 5 mg by mouth once daily. atorvastatin (LIPITOR) 10 mg tablet Take 10 mg by mouth once daily. losartan (COZAAR) 50 mg tablet Take 50 mg by mouth once daily. Current Facility-Administered Medications Medication Dose Route Frequency Provider Last Rate Last Admin perflutren lipid microspheres 1.3 mL in NaCl (PF) 0.9% 10 mL injection (DEFINITY) INTRAVENOUS DIRECTED PREarl Pedro MD sodium chloride 0.9 % (flush) 10 mL (BD POSIFLUSH) 10 mL INTRAVENOUS DIRECTED PREarl Pedro MD REVIEW OF SYSTEMS Review of Systems Constitutional: Negative for chills and fever. HENT: Hearing loss Eyes: Negative for visual disturbance. Respiratory: Negative for cough and shortness of breath. Cardiovascular: Negative for chest pain and leg swelling. Gastrointestinal: Negative for nausea and vomiting. Genitourinary: Negative for difficulty urinating. Musculoskeletal: Negative for back pain. Skin: Negative for rash and wound. Neurological: Negative for weakness and headaches. Hematological: Does not bruise/bleed easily. Psychiatric/Behavioral: Negative for agitation and confusion. The patient is not nervous/anxious. OBJECTIVE: BP 136/77 Pulse 53 Resp 16 Wt 186 lb 4.6 oz (84.5kg) SpO2 99% PHYSICAL EXAM: GENERAL: No distress, Alert, cooperative, pleasant HEENT: Normocephalic, atraumatic LUNGS: Unlabored breathing NECK/BACK: ROM appropriate, no TTP CARDIAC: Regular rate and rhythm ABDOMEN: Soft, non-tender, non-distended EXTREMITIES: SHAIKH, No deformities, No edema NEURO: Mental State: Alert, Oriented to person, place and time; appropriate judgement Speech: Fluent. Naming, comprehension and repetition intact Cranial Nerves: CN II: Visual rashid full to confrontation. CN III, IV, : Extraocular movements intact bilaterally. Pupils equal round and reactive to light bilaterally. CN V: Facial sensation is normal bilaterally. CN VII: Face is symmetric, no weakness CN VIII: Hearing is decreased on the left. CN IX, X: Palate elevates symmetrically CN XI: Shoulder shrug strength is normal. CN XII: Tongue midline without atrophy or fasciculations. Sensory: Normal sensation in upper and lower extremities and trunk to touch. Motor : Normal muscle tone. No spasticity or tremor. No evidence of pronator drift. Full strength in upper and lower extremities Reflexes: Deep tendon reflexes are 2+ and symmetric in all four extremities, negative Woodson's, negative clonus Coordination: [id number] normal. Rapid alternating movement normal. Gait: Normal casual gait. Slight difficulty with tandem gait. Romberg is absent. Data Review IMAGING STUDIES: MRI skull base 03/29/2024 IMPRESSION: The study confirms presence of a 2 mm focus of enhancement in the lateral third of the left IAC. Although not specific, vestibular schwannoma is the most common lesion in this location and with this appearance. Correlate with hearing symptoms. Follow-up study in 6-12 months to ensure stability may be warranted. Dictated by : BIB SHEA MD MRI Brain w/wout 03/22/2024 IMPRESSION: 1. No evidence of parenchymal mass lesion. 2. There is a 2 mm focus of enhancement in the left IAC. This is a nonspecific, and could be a small schwannoma. Recommend MRI of the brain with and without contrast with attention to the IACs to more completely evaluate. Dictated by : BIB SHEA MD Images independently reviewed The following portions of the patient's history were reviewed, confirmed, updated as necessary: allergies, current medications, past family history, past medical history, past social history, past surgical history, problem list, HPI and ROS obtained by others. The clinical and radiographic findings as well as the risks, benefits, and alternatives of treatment have been reviewed in detail with the patient. ASSESSMENT/PLAN 1. Vestibular schwannoma (HCC) Progressive memory decline and decreased hearing on the left MRI brain and skull base reviewed - small 2 mm area of enhancement at the fundus of the IAC most compatible with a small vestibular schwannoma. No evidence evidence of volume loss. - reviewed imaging findings with patient and family - recommend trial of hearing aids as it may help confusion/memory - further evaluation for memory decline could consider referral to neurology - small schwannoma of the left vestibular nerve may contribute to hearing loss - discussed observation vs treatment with GKRS and risks/benefits of each approach - for now, recommend continued observation with repeat MRI brain in 6 months - f/up in office to review results - MRI BRAIN WO/W IVCON; Future Encouraged patient to contact our office should there be any further questions, concerns, or change in symptoms. Patient expressed understanding and is in agreement with plan. Some elements may have been copied from a previous note and have been updated/reviewed where appropriate. All portions reflect current medical decision making from today. Geoff Young MD I spent a total of 45 minutes on the date of the service which included preparing to see the patient, [id number] patient care, completing clinical documentation, obtaining and/or reviewing separately obtained history, performing a medically appropriate examination, counseling and educating the patient/family/caregiver, ordering medications, tests, or procedures, independently interpreting results (not separately reported), and communicating results to the patient/family/caregiver. documented in this encounter [facility] 04-07-2024 Telephone encounter Note Patient has been scheduled for 04/09/24 Nahomi Hall Pss [facility] 04-07-2024 Miscellaneous Notes Patient has been scheduled for 04/09/24 Nahomi Hall Pss Check out comments: Referral to neurosurgery at [facility] Dr. Geoff Young. Left message for Dr. Young's office to contact patient to schedule. Please leave this note open until patient is scheduled. Isabel Murphy documented in this encounter [facility] 04-04-2024 Telephone encounter Note Check out comments: Referral to neurosurgery at - Dr. Geoff Young. Left message for Dr. Young's office to contact patient to schedule. Please leave this note open until patient is scheduled. Isabel Murphy [facility] 04-04-2024 History of Present illness Narrative IRB # [id number], [facility]# [id number] study entitled Phase III Study of Daratumumab/rHuPH20 (NSC- [id number]) + Lenalidomide or Lenalidomide as Post-Autologous Stem Cell Transplant Maintenance Therapy in Patients with Multiple Myeloma (MM) Using Minimal Residual Disease to Direct Therapy Duration (DRAMMATIC Study). Registration Information: Informed Consent Signed 01/03/2023 Registered Step 1 01/06/2023 Informed Consent Signed Step 2 07/22/2023 Randomization Date: 08/18/2023 Addendum 11/16/2023 Treatment Arm: TAC- 1 Lenalidomide Study ID [id number] Consent to optional samples Yes Study Status Active Patient was here for C9D1. Patient overall feels he is okay, but patients said it is still a mild issue. Patients expressed concern for some memory issues last few cycles, but [facility] believes it to be related to hearing and the patient saw ENT for hearing aids. put in a neuro consult based on MRI findings. Treatment Plan: Treatment Previous Cycle Cycle Current Start Date Frequency End date Lenalidomide Cycle 1 Day 1 08/24/2023 Cycle 8 03/07/2024 -04/03/2024 Cycle 9 04/03/2024-05/02/2024 10/19/2023 Daily, Cycle every 28 days Clinical Trial Specific Testing Test Dates Completed Due Date Bone Marrow Biopsy CTD 07/24/2023 Baseline Step 2 [x] 07/24/2024 12 months post Step 2 [] 07/24/2025 24 months post Step 2 [] 07/24/2026 36 months post Step 2 [] 07/24/2027 48 months post Step 2 [] QOLs PRO-CTCAE 08/17/2023 (Baseline) [x] 08/24/2023 (Cycle 1) [x] 09/21/2023 (Cycle 2) [x] 10/19/2023 (Cycle 3) [x] 11/16/2023 (Cycle 4) [x] 12/14/2023 (Cycle 5) [x] 01/11/2024 (Cycle 6) [x] 02/08/2024 (Cycle 7) [x] 03/07/2024 (Cycle 8) [x] 04/04/2024 (Cycle 9) [x] 05/02/2024 (Cycle 10) [] Day 1 of every cycle Baseline Weight (08/24/2023 date) 80.7 kg Current Weight 83.2 kg (+2.6%) Creatinine Clearance 63.7 ml/min ECOG per ECOG- 1 Bone Marrow - Plasma Cell % Free Light Chains M Protein Date Size (mm) Date Dakota Lambda * IGG Date Serum Urine Diagnosis 08/24/2022 20% Diagnosis 10/26/2022 11.7 43.5 Diagnosis 10/26/2022 1.12 M protein present Baseline 07/30/2023 Less than 5%* Baseline 08/07/2023 4.7 2.5 Enrollment 07/31/2023 Cycle 1 0.22 0.00 08/24/2023 Cycle 1 4.1* 2.4* 08/24/2023 Cycle 1 0.28 0.00 09/21/2023 Cycle 2 11.7 8.7 09/21/2023 Cycle 2 0.17 0.01 10/19/2023 Cycle 3 15.5 10.5 10/19/2023 Cycle 3 0.16 0.01 11/16/2023 Cycle 4 17.4 21.4 11/16/2023 Cycle 4 0.20 0.00 12/14/2023 Cycle 5 19.4 23.1 12/14/2023 Cycle 5 0.00* 0.00 01/11/2024 Cycle 6 25.8 19.4 01/11/2024 Cycle 6 0.15 0.00 02/08/2024 Cycle 7 24.2 20.4 02/08/2024 Cycle 7 0.00* 0.00 03/07/2024 Cycle 8 22.0 15.3 03/07/2024 Cycle 8 0.23 0.0 04/04/2024 Cycle 9 22.4 17.5 04/04/2024 Cycle 9 0.24 0.00 Lowest/Jacque = * Drug Accountability/Education - Completed on 04/04/2024. Patient given Cycle 9 diary. Patient did return cycle 8 - reviewed edits with patient. Use of the study medication diary and dosing instructions were reviewed with the patient. Patient verbalizes understanding of dosing of Revlimid: Capsules should be taken whole, with water, once daily (patient takes at HS). If a dose is missed, and it has been less than 12 hours since the preceding dose, the patient should take lenalidomide as soon as the patient remembers. If it has been more than 12 hours, the patient should skip the missed dose. Patient took 28/28 pills for the cycle - determining 100% compliance Patient receives drug from a private pharmacy. Lenalidomide Education and Counseling completed. Patient counseled on potential exposure to lenalidomide by , engage in abstinence or use a condom when engaging in sexual contact with WOCBP, notify study doctor if female partner becomes , never share drug with anyone else, not to donate blood, semen, or sperm while taking drug and for 28 days after. Concomitant medications reviewed per protocol: Yes Patient reported changes to medication list: No changes since last visit. Current medications: Current use of anticoagulants: YES (see medications below if applicable) Anticoagulants: Eliquis 5 mg Current use of herbal preparations or medications: No Prophylactic shingles medication: Acyclovir 400 mg Current Outpatient Medications Medication Sig Start/Stop Use acyclovir (ZOVIRAX) 400 mg tablet Take 1 tablet by mouth twice daily. 05/01/2023 Prophylactic shingles ondansetron (ZOFRAN) 8 mg tablet Take 1 tablet by mouth every 8 hours as needed for nausea/vomiting. 10/26/2022 PRN Nausea clonazePAM (KLONOPIN) 0.5 mg tablet Take 0.5 mg by mouth once daily. 07/29/2023 Anxiety glimepiride (AMARYL) 4 mg tablet Take 2 capsules by mouth in AM & 1 capsule in PM. >5 years Type 2 amLODIPine (NORVASC) 5 mg tablet Take 5 mg by mouth once daily. 02/10/2021 Hypertension atorvastatin (LIPITOR) 10 mg tablet Take 10 mg by mouth once daily. 02/10/2021 Cholesterol losartan (COZAAR) 50 mg tablet Take 50 mg by mouth once daily. 02/10/2021 Hypertension Loperamide (Imodium Oral) Take 2 tablet by mouth as needed >5 years Diarrhea Sildenafil (Viagra) 50 mg tablet Take 50 mg by mouth as needed. >10 years ED Eliquis 5 mg tablet Take 1 tablet by mouth twice daily 03/23/2023 Preventative -blood thinner Melatonin 5 mg Take 1 tablet at bedtime 03/23/2023 Insomnia Revlimid 10 mg Take 1 capsule daily in the morning 08/24/2023 MM treatment Linzess 72 mcg Take 1 capsule for constipation symptoms once a day as needed for constipation 12/31/2023 Constipation Azithromycin (ZITHROMAX) 500 mg tablet Take 1 tablet by mouth daily 02/02/2024 Completed 02/05/2024 Antibiotic No current facility-administered medications for this visit. Medical History: PAST MEDICAL HISTORY Diagnosis Date Arthritis Treated with medication Chronic diarrhea Resolved and now constipation Diabetes mellitus (HCC) Treated with medication Essential hypertension Treated with medication Mixed hyperlipidemia Treated with medication PAST MEDICAL HISTORY Diagnosis Date Arthritis Treated with medication Chronic diarrhea Resolved Malignant melanoma (HCC) On back removed - precancerous and 06/2022 non cancerous Mixed hyperlipidemia Treated with medication Multiple myeloma not having achieved remission (HCC) Treated with medication Primary hypertension Treated with medication Pulmonary embolism (HCC) Treated with medication Right bundle branch block Treated with medication Type 2 diabetes mellitus, without long-term current use of insulin (HCC) Treated with medication Surgical History: PAST SURGICAL HISTORY Procedure Laterality Date REPAIR INCISIONAL HERNIA,REDUCIBLE Resolved 8th grade SKIN BX, 1 LESION 06/2022 non cancerous Baseline Toxicities per CTCAE v. 5: All predate therapy, are chronic conditions and will not be actively followed unless they worsen during the clinical trial. Hyperglycemia; Grade 1: Start Date: >5 years PRIOR TO STUDY Drugs to Treat: Glimepiride Action Required: None Outcome: Ongoing. (Chronic) Diarrhea; Grade 1: Start Date: >5 years PRIOR TO STUDY Drugs to Treat: Imodium Action Required: None Outcome: Ongoing. Anemia; Grade 1: Start Date: Intermittent PRIOR TO STUDY 07/24/2023 RESOLVED: 08/24/2023 but Grade 1 again 09/21/2023 Drugs to Treat: None. Action Required: None Outcome: Ongoing Aspartate aminotransferase decreased; Grade 1: Start Date: Intermittent PRIOR TO STUDY Drugs to Treat: None. Action Required: None Outcome: Ongoing Alanine aminotransferase decreased; Grade 1: Start Date: Intermittent PRIOR TO STUDY 07/24/2023 STOPPED:11/16/2023 Drugs to Treat: None. Action Required: None Outcome: RESOLVED Insomnia; Grade 1: Start Date: Intermittent PRIOR TO STUDY 07/21/2023 Drugs to Treat: None. Action Required: None Outcome: Ongoing. Weight Loss; Grade 1: 3.5 Percent Increase since - Intentional Start Date: Intentional Loss - PRIOR TO STUDY 07/21/2023 RESOLVED:11/16/2023 Drugs to Treat: None. Action Required: None Outcome: RESOLVED Hypophosphatemia:Start Date: PRIOR TO STUDY 07/24/2023 STOPPED:08/24/2023 Drugs to Treat: None. Action Required: None Outcome: RESOLVED Toxicities per CTCAE v. 5: White Blood Cell Count Decreased; Grade 2: Related to Revlimid and Influenza Start Date: 09/21/2023 Increased: 02/08/2024 Drugs to Treat: None. Action Required: None Outcome: ONGOING Bone Pain: Grade 1; Bilateral Thigh: Unlikely related to Revlimid Start Date: PRIOR TO STUDY 08/24/2023 INCREASED 10/19/2023 Decreased to almost resolved: 02/08/2024 Drugs to Treat: None. Action Required: EMG and PT Outcome: Improving drastically Neutrophil Count Decreased; Grade 2: Possibly Related to Revlimid and Vaccines Start Date: 04/04/2024 Drugs to Treat: None. Action Required: None Outcome:Ongoing Memory Impairment; Grade 1: Unrelated to Revlimid Start Date: 02/08/2024 witnessed by RN but reported as PRIOR TO STUDY recently by patients Drugs to Treat: NoneAction Required: None Outcome: Ongoing Lymphocyte Count Decreased; Grade 1: Start Date: Intermittent PRIOR TO STUDY- Increased grade: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 Joseph recently had his second episode of Campylobacter infection, spaced two years apart. While his immune status likely played a role in his susceptibility to this organism, this is suggestive of reinfection, possibly from a common source. They do not have any clear risks from a culinary source, though it is always possible to receive undercooked food prepared by another constitution party. I advised them to ensure their cat, and potentially their son's dog, are healthy through their veterinarians. We otherwise do not routinely administer prophylactic antibiotics, though further investigations such as endoscopy or stool culture could be considered if there are more rapidly recurring episodes in the future or an episode does not resolve with appropriate antibiotics. We will also administer his next set of vaccinations today, as listed under the February 2024 column of the table below. We will also administer his fourth COVID-19 vaccine today, as he missed this during his recent illness. They will plan to present again for vaccinations in April and June. Date of HSCT: 06/20/2023 Months from HSCT 3 6 8 10 12 24 Approximate month & year September Inactivated influenza vaccine every Fall Autologous COVID-191 Prevnar-202 Hib3 Tdap4 Vaqta + Heplisav-B5 Polio7 Prevnar-20 Hib Td8 Heplisav-B5 Polio Prevnar-20 Hib Td Polio Vsiydsig43 Vaqta5 Shingrix MMR13 [id number] 1Administer 3-dose primary bivalent mRNA COVID-19 vaccine series; Pfizer: 0, 21, 49 days, followed by bivalent booster at least 2 months later 2Prevnar-20 = 20-valent conjugated pneumococcal vaccine 3Hib = Haemophilus influenzae conjugate vaccine 4Tdap = tetanus toxoid, diphtheria toxoid & acellular pertussis vaccine 5Vaqta (hepatitis A virus vaccine) and Heplisav-B (hepatitis B virus vaccine) 7Polio = inactivated polio vaccine 8Td = tetanus toxoid & diphtheria toxoid 9MenB = Meningococcal group B vaccine (Bexsero) 10MenACWY = MenQuadFi (MenACWY-TT) 11Shingrix = Recombinant Zoster Vaccine. Give if Varicella Zoster antibody is positive and patient is ? 19 years 13MMR = dhpybay-szxsy-kfwgdeg. If measles antibody is unprotective, no ongoing GVHD, not on immunosuppressive medications & has not received IVIG in the preceding 8-11 months 14Varivax = varicella zoster (Chicken pox) vaccine. If varicella zoster antibody is negative, no ongoing GVHD, not on immunosuppressive medications & has not received IVIG in the preceding 8-11 months. May administer Shingrix 8 weeks following Varivax. In addition to the above schedule, if patient is planning to travel out of the [place], we recommend scheduling a visit in an International Travel Clinic several months in advance. There is no limit to the number of volume of vaccines an adult patient may receive in a single visit. Injection sites must be by 1 inch. Adults may receive intramuscular vaccines in the anterolateral aspect of the thigh. After completion of vaccination series, consider monitoring long-term survivors of HSCT for response to vaccinations, and durability of vaccine responses, particularly if vaccinations initiated during GVHD: Hepatitis A IgG Hepatitis B Surface Ab Pneumococcus Tetanus Diphtheria Polio (if given) Measles (if given) I spent a total of 30 minutes on the date of the service which included preparing to see the patient, [id number] patient care, completing clinical documentation, counseling and educating the patient/family/caregiver, and ordering medications, tests, or procedures. Darline Krishnan MD documented in this encounter [facility] 03-07-2024 History of Present illness Narrative IRB # [id number], [facility]# [id number] study entitled Phase III Study of Daratumumab/rHuPH20 (NSC- [id number]) + Lenalidomide or Lenalidomide as Post-Autologous Stem Cell Transplant Maintenance Therapy in Patients with Multiple Myeloma (MM) Using Minimal Residual Disease to Direct Therapy Duration (DRAMMATIC Study). Registration Information: Informed Consent Signed 01/03/2023 Registered Step 1 01/06/2023 Informed Consent Signed Step 2 07/22/2023 Randomization Date: 08/18/2023 Addendum 11/16/2023 Treatment Arm: TAC- 1 Lenalidomide Study ID [id number] Consent to optional samples Yes Study Status Active Patient was here for C8D1. Patient overall feels he is doing well - his thigh has resolved per patient, but patients said it is still a mild issue. Patients expressed concern for some memory issues last few cycles, but [facility] believes it to be related to hearing and the patient is going to see ENT for hearing aid consult. The patient is seeing them next week. However, the patients does not feel that is the case and believes there is something wrong with the patient. [facility] reviewed imaging from prior encounters and when the patient was recently admitted to the hospital. ordered an MRI and put in a neuro consult. Treatment Plan: Treatment Previous Cycle Cycle Current Start Date Frequency End date Lenalidomide Cycle 1 Day 1 08/24/2023 Cycle 7 02/08/2024 -03/06/2024 Held -02/14 of this cycle 71% Compliant due to hold from health related issues and hospitalization Cycle 8 03/07/2024 -04/03/2024 10/19/2023 Daily, Cycle every 28 days Clinical Trial Specific Testing Test Dates Completed Due Date Bone Marrow Biopsy CTD 07/24/2023 Baseline Step 2 [x] 07/24/2024 12 months post Step 2 [] 07/24/2025 24 months post Step 2 [] 07/24/2026 36 months post Step 2 [] 07/24/2027 48 months post Step 2 [] QOLs PRO-CTCAE 08/17/2023 (Baseline) [x] 08/24/2023 (Cycle 1) [x] 09/21/2023 (Cycle 2) [x] 10/19/2023 (Cycle 3) [x] 11/16/2023 (Cycle 4) [x] 12/14/2023 (Cycle 5) [x] 01/11/2024 (Cycle 6) [x] 02/08/2024 (Cycle 7) [x] 03/07/2024 (Cycle 8) [x] 04/05/2024 (Cycle 9) [] Day 1 of every cycle Baseline Weight (08/24/2023 date) 80.7 kg Current Weight 82.8 kg (+2.6%) Creatinine Clearance 64.2 ml/min ECOG per ECOG- 1 03/07/24 Weight 82.8 kg (182 lb 8 oz) BSA 0 BMI 0 Temp 37.1 C (98.7 F) Resp 16 Pulse 99 BP 106/64 SpO2 100 % Bone Marrow - Plasma Cell % Free Light Chains M Protein Date Size (mm) Date [place] Lambda * IGG Date Serum Urine Diagnosis 08/24/2022 20% Diagnosis 10/26/2022 11.7 43.5 Diagnosis 10/26/2022 1.12 M protein present Baseline 07/30/2023 Less than 5%* Baseline 08/07/2023 4.7 2.5 Enrollment 07/31/2023 Cycle 1 0.22 0.00 08/24/2023 Cycle 1 4.1* 2.4* 08/24/2023 Cycle 1 0.28 0.00 09/21/2023 Cycle 2 11.7 8.7 09/21/2023 Cycle 2 0.17 0.01 10/19/2023 Cycle 3 15.5 10.5 10/19/2023 Cycle 3 0.16 0.01 11/16/2023 Cycle 4 17.4 21.4 11/16/2023 Cycle 4 0.20 0.00 12/14/2023 Cycle 5 19.4 23.1 12/14/2023 Cycle 5 0.00* 0.00 01/11/2024 Cycle 6 25.8 19.4 01/11/2024 Cycle 6 0.15 0.00 02/08/2024 Cycle 7 24.2 20.4 02/08/2024 Cycle 7 0.00* 0.00 03/07/2024 Cycle 8 22.0 15.3 03/07/2024 Cycle 8 0.23 Ordered not drawn? Lowest/Jacque = * Drug Accountability/Education - Completed on 03/07/2024. Patient given Cycle 8 diary. Patient did return cycle 7 - reviewed edits with patient. Use of the study medication diary and dosing instructions were reviewed with the patient. Patient verbalizes understanding of dosing of Revlimid: Capsules should be taken whole, with water, once daily (patient takes at HS). If a dose is missed, and it has been less than 12 hours since the preceding dose, the patient should take lenalidomide as soon as the patient remembers. If it has been more than 12 hours, the patient should skip the missed dose. Patient took 20/28 pills for the cycle - determining 71% compliance - patient was hospitalized but did not meet criteria for RAKESH for protocol - patient was held 02/07-02/14 of this cycle and into the next for another week to recover a bit more. Patient receives drug from a private pharmacy. Lenalidomide Education and Counseling completed. Patient counseled on potential exposure to lenalidomide by , engage in abstinence or use a condom when engaging in sexual contact with WOCBP, notify study doctor if female partner becomes , never share drug with anyone else, not to donate blood, semen, or sperm while taking drug and for 28 days after. Concomitant medications reviewed per protocol: Yes Patient reported changes to medication list: No changes since last visit. Current medications: Current use of anticoagulants: YES (see medications below if applicable) Anticoagulants: Eliquis 5 mg Current use of herbal preparations or medications: No Prophylactic shingles medication: Acyclovir 400 mg Current Outpatient Medications Medication Sig Start/Stop Use acyclovir (ZOVIRAX) 400 mg tablet Take 1 tablet by mouth twice daily. 05/01/2023 Prophylactic shingles ondansetron (ZOFRAN) 8 mg tablet Take 1 tablet by mouth every 8 hours as needed for nausea/vomiting. 10/26/2022 PRN Nausea clonazePAM (KLONOPIN) 0.5 mg tablet Take 0.5 mg by mouth once daily. 07/29/2023 Anxiety glimepiride (AMARYL) 4 mg tablet Take 2 capsules by mouth in AM & 1 capsule in PM. >5 years Type 2 amLODIPine (NORVASC) 5 mg tablet Take 5 mg by mouth once daily. 02/10/2021 Hypertension atorvastatin (LIPITOR) 10 mg tablet Take 10 mg by mouth once daily. 02/10/2021 Cholesterol losartan (COZAAR) 50 mg tablet Take 50 mg by mouth once daily. 02/10/2021 Hypertension Loperamide (Imodium Oral) Take 2 tablet by mouth as needed >5 years Diarrhea Sildenafil (Viagra) 50 mg tablet Take 50 mg by mouth as needed. >10 years ED Eliquis 5 mg tablet Take 1 tablet by mouth twice daily 03/23/2023 Preventative -blood thinner Melatonin 5 mg Take 1 tablet at bedtime 03/23/2023 Insomnia Revlimid 10 mg Take 1 capsule daily in the morning 08/24/2023 MM treatment Linzess 72 mcg Take 1 capsule for constipation symptoms once a day as needed for constipation 12/31/2023 Constipation Azithromycin (ZITHROMAX) 500 mg tablet Take 1 tablet by mouth daily 02/02/2024 Completed 02/05/2024 Antibiotic No current facility-administered medications for this visit. Medical History: PAST MEDICAL HISTORY Diagnosis Date Arthritis Treated with medication Chronic diarrhea Resolved and now constipation Diabetes mellitus (HCC) Treated with medication Essential hypertension Treated with medication Mixed hyperlipidemia Treated with medication PAST MEDICAL HISTORY Diagnosis Date Arthritis Treated with medication Chronic diarrhea Resolved Malignant melanoma (HCC) On back removed - precancerous and 06/2022 non cancerous Mixed hyperlipidemia Treated with medication Multiple myeloma not having achieved remission (HCC) Treated with medication Primary hypertension Treated with medication Pulmonary embolism (HCC) Treated with medication Right bundle branch block Treated with medication Type 2 diabetes mellitus, without long-term current use of insulin (HCC) Treated with medication Surgical History: PAST SURGICAL HISTORY Procedure Laterality Date REPAIR INCISIONAL HERNIA,REDUCIBLE Resolved 8th grade SKIN BX, 1 LESION 06/2022 non cancerous Baseline Toxicities per CTCAE v. 5: All predate therapy, are chronic conditions and will not be actively followed unless they worsen during the clinical trial. Hyperglycemia; Grade 1: Start Date: >5 years PRIOR TO STUDY Drugs to Treat: Glimepiride Action Required: None Outcome: Ongoing. (Chronic) Diarrhea; Grade 1: Start Date: >5 years PRIOR TO STUDY Drugs to Treat: Imodium Action Required: None Outcome: Ongoing. Anemia; Grade 1: Start Date: Intermittent PRIOR TO STUDY 07/24/2023 RESOLVED: 08/24/2023 but Grade 1 again 09/21/2023 Drugs to Treat: None. Action Required: None Outcome: Ongoing Aspartate aminotransferase decreased; Grade 1: Start Date: Intermittent PRIOR TO STUDY Drugs to Treat: None. Action Required: None Outcome: Ongoing Alanine aminotransferase decreased; Grade 1: Start Date: Intermittent PRIOR TO STUDY 07/24/2023 STOPPED:11/16/2023 Drugs to Treat: None. Action Required: None Outcome: RESOLVED Insomnia; Grade 1: Start Date: Intermittent PRIOR TO STUDY 07/21/2023 Drugs to Treat: None. Action Required: None Outcome: Ongoing. Weight Loss; Grade 1: 3.5 Percent Increase since - Intentional Start Date: Intentional Loss - PRIOR TO STUDY 07/21/2023 RESOLVED:11/16/2023 Drugs to Treat: None. Action Required: None Outcome: RESOLVED Hypophosphatemia:Start Date: PRIOR TO STUDY 07/24/2023 STOPPED:08/24/2023 Drugs to Treat: None. Action Required: None Outcome: RESOLVED Toxicities per CTCAE v. 5: White Blood Cell Count Decreased; Grade 2: Related to Revlimid and Influenza Start Date: 09/21/2023 Increased: 02/08/2024 Drugs to Treat: None. Action Required: None Outcome: ONGOING Bone Pain: Grade 1; Bilateral Thigh: Unlikely related to Revlimid Start Date: PRIOR TO STUDY 08/24/2023 INCREASED 10/19/2023 Decreased to almost resolved: 02/08/2024 Drugs to Treat: None. Action Required: EMG and PT Outcome: Improving drastically Neutrophil Count Decreased; Grade 1: Possibly Related to Revlimid and Vaccines Start Date: 12/14/2023 RESOLVED:02/08/2024 Started again:03/07/2024 Drugs to Treat: None. Action Required: None Outcome:Ongoing Hypoalbuminemia; Grade 1: Possibly Related to Revlimid and Influenza Start Date: 02/08/2024 RESOLVED:03/07/2024 Drugs to Treat: None. Action Required: None Outcome: RESOLVED Lung Infection; Grade 1: Possibly Related to Revlimid compromised immune system and Influenza A Start Date: 01/27/2024 RESOLVED:03/07/2024 Drugs to Treat: Zithromax. Action Required: Continued hold of Revlimid due to lung infection not resolving as quickly as would like Outcome: RESOLVED Memory Impairment; Grade 1: Unrelated to Revlimid Start Date: 02/08/2024 witnessed by RN but reported as PRIOR TO STUDY recently by patients Drugs to Treat: NoneAction Required: None Outcome: Ongoing Lymphocyte Count Decreased; Grade 2: Start Date: Intermittent PRIOR TO STUDY- Increased grade:0503/07/2024 Possibly related to Revlimid and Drugs to Treat: None. Action Required: None Outcome: Ongoing Patient turned in a 24 hour urine: Yes Patient knows to RTC 04/04/2024 for Cycle 9. Patient knows to call in the interim for any questions or concerns. Patient has contact information for Uma Gill Research Nurse and Dr. Mccain, along with the office number. Patient meets all Criteria for Study Participation: Yes REID Bynum, RN Clinical Research Nurse [phone] documented in this encounter [facility] 03-07-2024 Telephone encounter Note Lab requesting 24 hr urine orders. Please file. Betsy Henriquez LPN [facility] 03-07-2024 Miscellaneous Notes Lab requesting 24 hr urine orders. Please file. Betsy Henriquez LPN documented in this encounter [facility] 03-07-2024 History of Present illness Narrative Oncologic problem(s): 1) IgG lambda multiple myeloma. HPI: The patient is a 73-year-old male with a past medical history significant for type 2 diabetes, high cholesterol, hypertension and right bundle branch block. Patient originally presented to the emergency room at [facility] on 04/19/2022 with new onset of confusion that day which had been worsening. Laboratory work-up significant for hypokalemia. CT of the brain was unremarkable. He was admitted. During hospitalization it was noted that he had been having diarrhea for 6 to 8 weeks. Stool studies were positive for Campylobacter, blood and lactoferrin. C. difficile was negative. CT of the abdomen pelvis on 04/21/2022 noted abnormal pericholecystic edema without gallstones. Renal cysts and colonic diverticulosis were noted. He was found to have elevation of sed rate to 39, CRP 134. His albumin was 2.3. IgA low at 37. He was discharged on azithromycin, potassium and magnesium supplement. He was seen in the outpatient setting for follow-up visit on 07/11/2022. He continued to have one episode of explosive diarrhea daily. This had been going on for about 8 months. CBC on 07/11 showed a white count of 6400. Differential was normal. Hemoglobin 14.9 g/dL. Platelet count 275,000. Chemistries significant for creatinine of 1.29 g/dL. Previously 1.13 g/dL on 04/27/2022. Calcium was 9.3 mg/dL. Total bilirubin, AST, ALT and alkaline phosphatase were normal. LDH was 181. C-reactive protein was less than 2.09. Total protein was 8.8 g/dL. Total IgG was 2462 mg/dL. IgA decreased to 28 mg/dL. IgM normal at 32 mg/dL. On protein electrophoresis, patient was found to have 2M spikes both IgG lambda by immunofixation. For spike was quantitated at 1.2 g/dL and the second was quantitated at 0.6 g/dL. Cytoplasmic and perinuclear ANCA both negative. Atypical p-ANCA negative. Patient described diarrhea as loose, eran stools sometimes explosive typically one bowel movement per day however. He had not observed any blood. Had a colonoscopy [address] Arteaga. His appetite was normal. He had not lost weight. Denied reflux and nausea. He did get abdominal bloating associated with the diarrhea. He denied musculoskeletal pain. He denied symptoms of sensory neuropathy. He sees an team supervisor once a year for dilated exam. He has not been told he has retinopathy. Recent removal of early melanoma back. Blue nevus right ankle--required WLE--scheduled. PMR--about 15 years ago. Patient underwent colonoscopy on 09/21/2022. Preparation of the colon was fair. -One 6 mm polyp at the ileocecal valve, removed with a hot snare. Resected and retrieved. -One 5 mm polyp in the ascending colon, removed with a hot snare. Resected and retrieved. -Congested mucosa in the descending colon, at the splenic flexure, in the ascending colon and in the cecum. Biopsied. -Diverticulosis in the recto-sigmoid colon, in the sigmoid colon and in the descending colon. -Stool in the rectum, in the sigmoid colon, in the descending colon and at the hepatic flexure. Fluid aspiration performed. -The examined portion of the ileum was normal. Biopsied. Pathology: A. Ileocecal valve polyp, biopsy: -Consistent with fibrolipomatous polyp. -See comment. B. Small bowel, biopsy: -No pathologic change. C. Cecum, biopsy: -Mild melanosis coli. D. Colon, random biopsy: -Mild melanosis coli. E. Ascending colon polyp, biopsy: -Fragments of tubular adenoma. B, C, D & E - No congophilic material identified. Congo red stain with matched control is negative. ADDENDUM C & D. No congophilic material is noted in these biopsies on light and polarized microscopy. Congo Red stain with matched control was used in the evaluation of this case. He was diagnosed with pancreatic insufficiency and was to start pancreatic enzyme replacement. Patient had a venous duplex ultrasound on 12/16/2022 for right leg pain. That study demonstrated no evidence of DVT in the right leg. He developed chest pain and increasing shortness of breath. Went to the ED on 01/16/2023. PE protocol chest CT demonstrated multiple bilateral pulmonary emboli involving the distal portion of both the right and left main pulmonary arteries as well as branches of the upper and lower lobe pulmonary arteries, more prominent on the right side. Platelet count was 67,000. Patient was admitted and placed on unfractionated heparin with bolus. The next morning platelet count was 62,000. He was rotated to apixaban and discharged. Echocardiogram performed 01/17/2023 demonstrated normal LV size. There was moderate concentric LVH. Left ventricular systolic function was normal with an estimated ejection fraction at 60%. There was stage I diastolic dysfunction. The pulmonary artery systolic pressure was 58 mmHg. The global longitudinal strain was -11.5% (abnormal). The global longitudinal strain was moderately abnormal. (Previous echocardiogram 04/20/2022 demonstrated right ventricular systolic pressure estimated at 22 mmHg. Diastolic function was indeterminate. Right ventricular strain was not determined). His chest pain has improved. He is still short of breath with heavier exertion and sometimes walking from room to room he finds himself breathing heavier. He has been taking apixaban 10 mg twice daily. No bleeding issues. Previous therapy: 1) RVd. Cycle #1 began 11/09/2022. 2) Zometa. 3) ASCT. Transplant Summary: BMT Information ASCR infused on 06/02/2023 Planned Proposed Protocols: IP BMT AUTO MELPHALAN 200 Planned Preparative Regimen Drug: Melphalan Planned Mobilization Agent: G-CSF, Plerixafor Planned Stem Cell Source: Peripheral blood stem cells BMT Transplant Details # of cells: 6.16 Saw neurology. 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 Scheduled for EMG 01/16. Seen in the ED on 01/27/2024 for an episode of confusion that was secondary to hypoglycemia. Evidently had influenza diagnosed prior to that. Was then admitted for neutropenic fever on 01/31/2024. ANC was 600 at time of admission. Influenza A positive. Stool positive for Campylobacter. Was treated with high-dose Tamiflu secondary to underlying immunocompromise. Discharged on azithromycin 500 mg daily for 14 days. No further fever. Still has diarrhea that can be anywhere from 1-3 explosive watery bowel movements a day. But in retrospect he has had this off and on for some time. Has an outdoor cat that he is close with. Staying away from it now. Health department will be checking their well water. Seems to be tolerating azithromycin well. Right leg pain has not been an issue for the last 3 weeks. It is improved significantly. Had EMG on 01/16. 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 Neurologist interpreted as a chronic condition. Presents for ongoing oncologic management. Interim history: No complaints. Continues to have short-term memory issues. Getting more frustrated. There is been some aggression on his part towards and grandchildren. PMH, medications and allergies personally reviewed by me today. Any changes documented in appropriate section. ROS: Constitutional: Denies episodes of fever and night sweats. Neuro: Denies HAMILTON, vertigo, dizziness and imbalance. HEENT: No recent change in voice, vision. Resp: Denies cough, wheeze and hemoptysis. Denies shortness of breath at rest. Denies MACE. CVS: Denies exertional chest pain, PND, orthopnea and LE edema. GI: See HPI. : Denies dysuria or gross hematuria. Endo: Denies hot flashes. Denies polyuria and polydipsia. Denies heat and cold intolerance. Musculoskeletal: See HPI. Derm: Denies rash. Denies jaundice and diffuse pruritis. Heme: Denies unusual bleeding and unexplained bruising. Psych: Normal mood. PHYSICAL EXAM: Vitals: Blood pressure 106/64, pulse 99, temperature 37.1 C (98.7 F), temperature source Temporal, weight 82.8 kg (182 lb 8 oz), SpO2 100%. Well-appearing and in no acute distress. EYES: Sclerae are anicteric bilaterally. LYMPHATIC: There is no palpable cervical or supraclavicular adenopathy. RESPIRATORY: Inspiratory breath sounds are of normal intensity in all rashid. No rales, wheezes or rhonchi. CARDIOVASCULAR: Rhythm is regular. ABDOMEN: The abdomen is nondistended. Extremities: No swelling or edema. SKIN: No jaundice. NEUROLOGIC: human resource intern II-XII are grossly intact. Diminished hip flexor strength right leg. Patellar DTRs remain slightly diminished, but symmetric. MS: No tenderness or mass of the right quadriceps muscle. LABS: ASSESSMENT/PLAN: (C90.00) Multiple myeloma not having achieved remission (HCC) (primary encounter diagnosis) Assessment: -The patient is a 73-year-old male has a past medical history significant for diabetes and chronic diarrhea that was characterized by one explosive watery stool daily (was diagnosed with pancreatic insufficiency). Was hospitalized 03/2022 when diarrhea significantly worsened and he was diagnosed with and treated for Campylobacter infection. During that evaluation, was found to have two IgG lambda monoclonal antibodies. He did not have hypercalcemia or anemia but had elevated serum creatinine (which may have been related to volume depletion when hospitalized for diarrhea and mental status change). 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 Low to intermediate risk disease (PCs 20%). -Imaging--no lytic lesions on whole body CT; Liver cyst and splenic nodule (6-12 month f/u MRI recommended). -Bone marrow negative for amyoid. -Colonic biopsies negative for amyloid. -Subsequent MRI of spine and pelvis revealed two T2 hyperintense foci in the pelvis, one in the left sacral rebeka and one in the right ischium. -FISH panel revealed (11;14) (q13;q32) (IGH/CCND1) translocation consistent with the presence of a plasma cell neoplasm associated with standard risk disease. -R-ISS stage I (serum beta microglobulin less than 3.5 mg/L and serum albumin greater than 3.5 g/dL; standard risk disease by FISH testing as outlined above and serum LDH less than upper limit of normal). -VGPR as of 11/2023 (Serum and urine monoclonal protein detected only by immunofixation). -Reviewed CBC. Mild asymptomatic anemia and lymphocytopenia. -ECOG currently 1. -Recurrent infection with Campylobacter. Treated. -Memory issues. I reviewed his previous MRI brain from 2021 prior diagnosis of multiple myeloma. To that of the CT he had without contrast when he was hospitalized more recently. CT showed involutional changes and white matter changes associated with chronic ischemia. Not appreciated on previous MRI. I do not think this symptom is related to Revlimid. Discussed with him and his today. Plan: -Continue lenalidomide. -Monthly Zometa (will receive dose 11 of 12 today). -CBC, chemistries and serum protein electrophoresis and immunofixation as well as 24-hour urine collection for electrophoresis and immunofixation monthly per protocol. -MRI brain with and without contrast. -Referral to neurology for evaluation of dementia. Supportive care: ID: Plan: -Receiving posttransplant vaccinations. -His will message ID about seeing one of the physicians at [facility] regarding recurrent Campylobacter infection. Heme: -As above. Skeletal: -Only lytic lesions observed over those in the pelvic bones on MRI initially. Plan: -Continue monthly Zometa tomorrow. Assessment: -B/L PE on ASA prophylaxis. -Previous evidence of pulmonary hypertension on echocardiogram. -Tolerating apixaban well. Plan: -Continue apixaban. 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 Likely a consequence of nerve impingement as evidenced by previous MRI and not related to therapy for myeloma. Portions of this documentation were copied and pasted from previous office visit notes in order to provide a cohesive continuity of the history. The note has been reviewed and edited and updated as necessary. I spent a total of 30 minutes on the date of the service which included preparing to see the patient, [id number] patient care, completing clinical documentation, obtaining and/or reviewing separately obtained history, performing a medically appropriate examination, counseling and educating the patient/family/caregiver, ordering medications, tests, or procedures, communicating with other HCPs (not separately reported), and communicating results to the patient/family/caregiver. Connie Mccain DO documented in this encounter [facility] 03-05-2024 Telephone encounter Note [employer] auth #[id number]. Please send electronically. Betsy Henriquez LPN [facility] 03-05-2024 Miscellaneous Notes [employer] auth #[id number]. Please send electronically. Betsy Henriquez LPN Unable to obtain [employer] auth # until 03/06/2024. Betsy Henriquez LPN documented in this encounter [facility] 03-04-2024 Telephone encounter Note Unable to obtain [employer] auth # until 03/06/2024. Btesy Henriquez LPN [facility] 02-15-2024 Telephone encounter Note Spoke with the patient and his spouse at this time - reviewed the CMP and CBC - discussed with Rush. Patient is cleared to start back on his Revlimid today. Patient is scheduled to see ID and his got a water kit to check their well water. Patient overall is doing well. Temo Gill RN [facility] 02-15-2024 Miscellaneous Notes Spoke with the patient and his spouse at this time - reviewed the CMP and CBC - discussed with Valeriei. Patient is cleared to start back on his Revlimid today. Patient is scheduled to see ID and his got a water kit to check their well water. Patient overall is doing well. Temo Gill RN documented in this encounter [facility] 02-12-2024 Telephone encounter Note Patient is scheduled as directed. Isabel Murphy [facility] 02-12-2024 Miscellaneous Notes Patient is scheduled as directed. Isabel Murphy Patient is to have labs 02/15/2024 at 10 am - repeat CBC/CMP documented in this encounter [facility] 02-12-2024 Telephone encounter Note Patient is to have labs 02/15/2024 at 10 am - repeat CBC/CMP [facility] 02-08-2024 History of Present illness Narrative IRB # [id number], [facility]# [id number] study entitled Phase III Study of Daratumumab/rHuPH20 (NSC- [id number]) + Lenalidomide or Lenalidomide as Post-Autologous Stem Cell Transplant Maintenance Therapy in Patients with Multiple Myeloma (MM) Using Minimal Residual Disease to Direct Therapy Duration (DRAMMATIC Study). Pt ID: [id number] Consented: 01/03/2023 Observational Consent IC Signed for Treatment Step 2: 07/22/2023 Randomized: 08/18/2023 Treatment Arm: TAC- 1 Lenalidomide C1D1:08/24/2023 Patient was here February 12, 2024 for C7D1. Patient overall feels he is doing well - his thigh has resolved per patient, but patients said it is still a mild issue. Patients expressed concern for some memory issues last cycle, but Rush believes it to be related to hearing and the patient is going to see ENT for hearing aid consult. However, patient was seen in the hospital 01/27/2024 for low blood sugar and issues with memory and then again 02/01/2024. The patient was said to have low blood sugars and poor recovery from the influenza A. The patient was put on Tamiflu briefly and an antibiotic. The patient however seem to still be having memory issues in front of this RN. He has been very different according to his pretty much since transplant she has been saying that. He is very different once th doctor entered the room. He has been very withdrawn and verging on aggressive with his . He was quite passive aggressive with her today which he usually does not do in front of staff, but his has expressed this to me on the phone. I had to tell him how important the tasks she is keeping him on track with are and he seemed sweet for a moment and appreciative. It was only a few minutes later he was getting frustrated again. The daughter mentioned a bit of a personality change with him during consent signing. The last three visits he seemed to struggle to follow the tasks of what was next to get zometa. He was confused about labs next week. He has been misplacing things - like today his reading glasses. The last visit it was his wallet. His speech has been a bit jumbled at times and he overall seems less oriented. This was all expressed to the MD and will be monitored. Treatment Plan: Treatment Previous Cycle Cycle Current Start Date Frequency End date Lenalidomide Cycle 1 Day 1 08/24/2023 Cycle 6 01/11/2024- Held -02/06 of this cycle 75% Compliant due to hold from [facility] Cycle 7 02/08/2024 -03/06/2024 10/19/2023 Daily, Cycle every 28 days Clinical Trial Specific Testing Test Dates Completed Due Date Bone Marrow Biopsy CTD 07/24/2023 Baseline Step 2 [x] 07/24/2024 12 months post Step 2 [] 07/24/2025 24 months post Step 2 [] 07/24/2026 36 months post Step 2 [] 07/24/2027 48 months post Step 2 [] QOLs PRO-CTCAE 08/17/2023 (Baseline) [x] 08/24/2023 (Cycle 1) [x] 09/21/2023 (Cycle 2) [x] 10/19/2023 (Cycle 3) [x] 11/16/2023 (Cycle 4) [x] 12/14/2023 (Cycle 5) [x] 01/11/2024 (Cycle 6) [x] 02/08/2024 (Cycle 7) [x] 03/07/2024 (Cycle 8) [] Day 1 of every cycle Baseline Weight (08/24/2023 date) 80.7 kg Current Weight 80.7 kg Creatinine Clearance 69.4 ml/min ECOG per ECOG- 1 02/08/24 09:26 Weight 80.7 kg (178 lb) BSA 0 BMI 0 Temp 36.9 C (98.5 F) Pulse 68 Resp 14 BP 130/78 SpO2 99 % Bone Marrow - Plasma Cell % Free Light Chains M Protein Date Size (mm) Date [place] Lambda * IGG Date Serum Urine Diagnosis 08/24/2022 20% Diagnosis 10/26/2022 11.7 43.5 Diagnosis 10/26/2022 1.12 M protein present Baseline 07/30/2023 Less than 5%* Baseline 08/07/2023 4.7 2.5 Enrollment 07/31/2023 Cycle 1 0.22 0.00 08/24/2023 Cycle 1 4.1* 2.4* 08/24/2023 Cycle 1 0.28 0.00 09/21/2023 Cycle 2 11.7 8.7 09/21/2023 Cycle 2 0.17 0.01 10/19/2023 Cycle 3 15.5 10.5 10/19/2023 Cycle 3 0.16 0.01 11/16/2023 Cycle 4 17.4 21.4 11/16/2023 Cycle 4 0.20 0.00 12/14/2023 Cycle 5 19.4 23.1 12/14/2023 Cycle 5 0.00* 0.00 01/11/2024 Cycle 6 25.8 19.4 01/11/2024 Cycle 6 0.15 0.00 02/08/2024 Cycle 7 24.2 20.4 02/08/2024 Cycle 7 0.00* 0.00 Lowest/Jacque = * Drug Accountability/Education - Completed on 02/08/2024. Patient given Cycle 7 diary. Patient did return cycle 6 - reviewed edits with patient. Use of the study medication diary and dosing instructions were reviewed with the patient. Patient verbalizes understanding of dosing of Revlimid: Capsules should be taken whole, with water, once daily (patient takes at HS). If a dose is missed, and it has been less than 12 hours since the preceding dose, the patient should take lenalidomide as soon as the patient remembers. If it has been more than 12 hours, the patient should skip the missed dose. Patient took / pills for the cycle - determining 75% compliance - patient was hospitalized but did not meet criteria for RAKESH for protocol - patient was held 01/31-02/06 of this cycle and into the next for another week to recover a bit more. Patient receives drug from a private pharmacy - but switching due to funding - delayed, but patient held for a week due to labs. Lenalidomide Education and Counseling completed. Patient counseled on potential exposure to lenalidomide by , engage in abstinence or use a condom when engaging in sexual contact with WOCBP, notify study doctor if female partner becomes , never share drug with anyone else, not to donate blood, semen, or sperm while taking drug and for 28 days after. Concomitant medications reviewed per protocol: Yes Patient reported changes to medication list: No changes since last visit. Current medications: Current use of anticoagulants: YES (see medications below if applicable) Anticoagulants: Eliquis 5 mg Current use of herbal preparations or medications: No Prophylactic shingles medication: Acyclovir 400 mg Current Outpatient Medications Medication Sig Start/Stop Use acyclovir (ZOVIRAX) 400 mg tablet Take 1 tablet by mouth twice daily. 05/01/2023 Prophylactic shingles ondansetron (ZOFRAN) 8 mg tablet Take 1 tablet by mouth every 8 hours as needed for nausea/vomiting. 10/26/2022 PRN Nausea clonazePAM (KLONOPIN) 0.5 mg tablet Take 0.5 mg by mouth once daily. 07/29/2023 Anxiety glimepiride (AMARYL) 4 mg tablet Take 2 capsules by mouth in AM & 1 capsule in PM. >5 years Type 2 amLODIPine (NORVASC) 5 mg tablet Take 5 mg by mouth once daily. 02/10/2021 Hypertension atorvastatin (LIPITOR) 10 mg tablet Take 10 mg by mouth once daily. 02/10/2021 Cholesterol losartan (COZAAR) 50 mg tablet Take 50 mg by mouth once daily. 02/10/2021 Hypertension Loperamide (Imodium Oral) Take 2 tablet by mouth as needed >5 years Diarrhea Sildenafil (Viagra) 50 mg tablet Take 50 mg by mouth as needed. >10 years ED Eliquis 5 mg tablet Take 1 tablet by mouth twice daily 03/23/2023 Preventative -blood thinner Melatonin 5 mg Take 1 tablet at bedtime 03/23/2023 Insomnia Revlimid 10 mg Take 1 capsule daily in the morning 08/24/2023 MM treatment Linzess 72 mcg Take 1 capsule for constipation symptoms once a day as needed for constipation 12/31/2023 Constipation Azithromycin (ZITHROMAX) 500 mg tablet Take 1 tablet by mouth daily 02/02/2024 Antibiotic No current facility-administered medications for this visit. Medical History: PAST MEDICAL HISTORY Diagnosis Date Arthritis Treated with medication Chronic diarrhea Resolved and now constipation Diabetes mellitus (HCC) Treated with medication Essential hypertension Treated with medication Mixed hyperlipidemia Treated with medication PAST MEDICAL HISTORY Diagnosis Date Arthritis Treated with medication Chronic diarrhea Resolved Malignant melanoma (HCC) On back removed - precancerous and 06/2022 non cancerous Mixed hyperlipidemia Treated with medication Multiple myeloma not having achieved remission (HCC) Treated with medication Primary hypertension Treated with medication Pulmonary embolism (HCC) Treated with medication Right bundle branch block Treated with medication Type 2 diabetes mellitus, without long-term current use of insulin (HCC) Treated with medication Surgical History: PAST SURGICAL HISTORY Procedure Laterality Date REPAIR INCISIONAL HERNIA,REDUCIBLE Resolved 8th grade SKIN BX, 1 LESION 06/2022 non cancerous Baseline Toxicities per CTCAE v. 5: All predate therapy, are chronic conditions and will not be actively followed unless they worsen during the clinical trial. Hyperglycemia; Grade 1: Start Date: >5 years PRIOR TO STUDY Drugs to Treat: Glimepiride Action Required: None Outcome: Ongoing. (Chronic) Diarrhea; Grade 1: Start Date: >5 years PRIOR TO STUDY Drugs to Treat: Imodium Action Required: None Outcome: Ongoing. Anemia; Grade 1: Start Date: Intermittent PRIOR TO STUDY 07/24/2023 RESOLVED: 08/24/2023 but Grade 1 again 09/21/2023 Drugs to Treat: None. Action Required: None Outcome: Ongoing Aspartate aminotransferase decreased; Grade 1: Start Date: Intermittent PRIOR TO STUDY Drugs to Treat: None. Action Required: None Outcome: Ongoing Alanine aminotransferase decreased; Grade 1: Start Date: Intermittent PRIOR TO STUDY 07/24/2023 STOPPED:11/16/2023 Drugs to Treat: None. Action Required: None Outcome: RESOLVED Insomnia; Grade 1: Start Date: Intermittent PRIOR TO STUDY 07/21/2023 Drugs to Treat: None. Action Required: None Outcome: Ongoing. Weight Loss; Grade 1: 3.5 Percent Increase since - Intentional Start Date: Intentional Loss - PRIOR TO STUDY 07/21/2023 RESOLVED:11/16/2023 Drugs to Treat: None. Action Required: None Outcome: RESOLVED Hypophosphatemia:Start Date: PRIOR TO STUDY 07/24/2023 STOPPED:08/24/2023 Drugs to Treat: None. Action Required: None Outcome: RESOLVED Lymphocyte Count Decreased; Grade 1: Start Date: Intermittent PRIOR TO STUDY- decreased and started again 02/08/2024 Possibly related to Revlimid and Drugs to Treat: None. Action Required: None Outcome: Ongoing Toxicities per CTCAE v. 5: White Blood Cell Count Decreased; Grade 2: Related to Revlimid and Influenza Start Date: 09/21/2023 Increased: 02/08/2024 Drugs to Treat: None. Action Required: None Outcome: ONGOING Platelet Count Decreased; Grade 1: Start Date: 09/21/2023 RESOLVED:02/08/2024 Drugs to Treat: None. Action Required: None Outcome: RESOLVED Bone Pain: Grade 1; Bilateral Thigh: Unlikely related to Revlimid Start Date: PRIOR TO STUDY 08/24/2023 INCREASED 10/19/2023 Decreased to almost resolved: 02/08/2024 Drugs to Treat: None. Action Required: EMG and PT Outcome: Improving drastically Neutrophil Count Decreased; Grade 1: Possibly Related to Revlimid and Vaccines Start Date: 12/14/2023 RESOLVED:02/08/2024 Drugs to Treat: None. Action Required: None Outcome: RESOLVED Hypoalbuminemia; Grade 1: Possibly Related to Revlimid and Influenza Start Date: 02/08/2024 Drugs to Treat: None. Action Required: None Outcome: Ongoing Patient turned in a 24 hour urine: Yes Patient knows to RTC 03/07/2024 for Cycle 8. Patient knows to call in the interim for any questions or concerns. Patient has contact information for Uma Gill Research Nurse and Dr. Mccain, along with the office number. Patient meets all Criteria for Study Participation: Yes REID Bynum, RN Clinical Research Nurse [phone] documented in this encounter [facility] 02-08-2024 History of Present illness Narrative Oncologic problem(s): 1) IgG lambda multiple myeloma. HPI: The patient is a 73-year-old male with a past medical history significant for type 2 diabetes, high cholesterol, hypertension and right bundle branch block. Patient originally presented to the emergency room at [facility] on 04/19/2022 with new onset of confusion that day which had been worsening. Laboratory work-up significant for hypokalemia. CT of the brain was unremarkable. He was admitted. During hospitalization it was noted that he had been having diarrhea for 6 to 8 weeks. Stool studies were positive for Campylobacter, blood and lactoferrin. C. difficile was negative. CT of the abdomen pelvis on 04/21/2022 noted abnormal pericholecystic edema without gallstones. Renal cysts and colonic diverticulosis were noted. He was found to have elevation of sed rate to 39, CRP 134. His albumin was 2.3. IgA low at 37. He was discharged on azithromycin, potassium and magnesium supplement. He was seen in the outpatient setting for follow-up visit on 07/11/2022. He continued to have one episode of explosive diarrhea daily. This had been going on for about 8 months. CBC on 07/11 showed a white count of 6400. Differential was normal. Hemoglobin 14.9 g/dL. Platelet count 275,000. Chemistries significant for creatinine of 1.29 g/dL. Previously 1.13 g/dL on 04/27/2022. Calcium was 9.3 mg/dL. Total bilirubin, AST, ALT and alkaline phosphatase were normal. LDH was 181. C-reactive protein was less than 2.09. Total protein was 8.8 g/dL. Total IgG was 2462 mg/dL. IgA decreased to 28 mg/dL. IgM normal at 32 mg/dL. On protein electrophoresis, patient was found to have 2M spikes both IgG lambda by immunofixation. For spike was quantitated at 1.2 g/dL and the second was quantitated at 0.6 g/dL. Cytoplasmic and perinuclear ANCA both negative. Atypical p-ANCA negative. Patient described diarrhea as loose, eran stools sometimes explosive typically one bowel movement per day however. He had not observed any blood. Had a colonoscopy [address] Arteaga. His appetite was normal. He had not lost weight. Denied reflux and nausea. He did get abdominal bloating associated with the diarrhea. He denied musculoskeletal pain. He denied symptoms of sensory neuropathy. He sees an team supervisor once a year for dilated exam. He has not been told he has retinopathy. Recent removal of early melanoma back. Blue nevus right ankle--required WLE--scheduled. PMR--about 15 years ago. Patient underwent colonoscopy on 09/21/2022. Preparation of the colon was fair. -One 6 mm polyp at the ileocecal valve, removed with a hot snare. Resected and retrieved. -One 5 mm polyp in the ascending colon, removed with a hot snare. Resected and retrieved. -Congested mucosa in the descending colon, at the splenic flexure, in the ascending colon and in the cecum. Biopsied. -Diverticulosis in the recto-sigmoid colon, in the sigmoid colon and in the descending colon. -Stool in the rectum, in the sigmoid colon, in the descending colon and at the hepatic flexure. Fluid aspiration performed. -The examined portion of the ileum was normal. Biopsied. Pathology: A. Ileocecal valve polyp, biopsy: -Consistent with fibrolipomatous polyp. -See comment. B. Small bowel, biopsy: -No pathologic change. C. Cecum, biopsy: -Mild melanosis coli. D. Colon, random biopsy: -Mild melanosis coli. E. Ascending colon polyp, biopsy: -Fragments of tubular adenoma. B, C, D & E - No congophilic material identified. Congo red stain with matched control is negative. ADDENDUM C & D. No congophilic material is noted in these biopsies on light and polarized microscopy. Congo Red stain with matched control was used in the evaluation of this case. He was diagnosed with pancreatic insufficiency and was to start pancreatic enzyme replacement. Patient had a venous duplex ultrasound on 12/16/2022 for right leg pain. That study demonstrated no evidence of DVT in the right leg. He developed chest pain and increasing shortness of breath. Went to the ED on 01/16/2023. PE protocol chest CT demonstrated multiple bilateral pulmonary emboli involving the distal portion of both the right and left main pulmonary arteries as well as branches of the upper and lower lobe pulmonary arteries, more prominent on the right side. Platelet count was 67,000. Patient was admitted and placed on unfractionated heparin with bolus. The next morning platelet count was 62,000. He was rotated to apixaban and discharged. Echocardiogram performed 01/17/2023 demonstrated normal LV size. There was moderate concentric LVH. Left ventricular systolic function was normal with an estimated ejection fraction at 60%. There was stage I diastolic dysfunction. The pulmonary artery systolic pressure was 58 mmHg. The global longitudinal strain was -11.5% (abnormal). The global longitudinal strain was moderately abnormal. (Previous echocardiogram 04/20/2022 demonstrated right ventricular systolic pressure estimated at 22 mmHg. Diastolic function was indeterminate. Right ventricular strain was not determined). His chest pain has improved. He is still short of breath with heavier exertion and sometimes walking from room to room he finds himself breathing heavier. He has been taking apixaban 10 mg twice daily. No bleeding issues. Previous therapy: 1) RVd. Cycle #1 began 11/09/2022. 2) Zometa. 3) ASCT. Transplant Summary: BMT Information ASCR infused on 06/02/2023 Planned Proposed Protocols: IP BMT AUTO MELPHALAN 200 Planned Preparative Regimen Drug: Melphalan Planned Mobilization Agent: G-CSF, Plerixafor Planned Stem Cell Source: Peripheral blood stem cells BMT Transplant Details # of cells: 6.16 Saw neurology. 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 Scheduled for EMG 01/16. Presents for ongoing oncologic management. Interim history: Seen in the ED on 01/27/2024 for an episode of confusion that was secondary to hypoglycemia. Evidently had influenza diagnosed prior to that. Was then admitted for neutropenic fever on 01/31/2024. ANC was 600 at time of admission. Influenza A positive. Stool positive for Campylobacter. Was treated with high-dose Tamiflu secondary to underlying immunocompromise. Discharged on azithromycin 500 mg daily for 14 days. No further fever. Still has diarrhea that can be anywhere from 1-3 explosive watery bowel movements a day. But in retrospect he has had this off and on for some time. Has an outdoor cat that he is close with. Staying away from it now. Health department will be checking their well water. Seems to be tolerating azithromycin well. Right leg pain has not been an issue for the last 3 weeks. It is improved significantly. Had EMG on 01/16. 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 Neurologist interpreted as a chronic condition. PMH, medications and allergies personally reviewed by me today. Any changes documented in appropriate section. ROS: Constitutional: Denies episodes of fever and night sweats. Neuro: Denies HAMILTON, vertigo, dizziness and imbalance. HEENT: No recent change in voice, vision. Resp: Denies cough, wheeze and hemoptysis. Denies shortness of breath at rest. Denies MACE. CVS: Denies exertional chest pain, PND, orthopnea and LE edema. GI: See HPI. : Denies dysuria or gross hematuria. Endo: Denies hot flashes. Denies polyuria and polydipsia. Denies heat and cold intolerance. Musculoskeletal: See HPI. Derm: Denies rash. Denies jaundice and diffuse pruritis. Heme: Denies unusual bleeding and unexplained bruising. Psych: Normal mood. PHYSICAL EXAM: Vitals: Blood pressure 130/78, pulse 68, temperature 36.9 C (98.5 F), resp. rate 14, weight 80.7 kg (178 lb), SpO2 99%. Well-appearing and in no acute distress. EYES: Sclerae are anicteric bilaterally. LYMPHATIC: There is no palpable cervical or supraclavicular adenopathy. RESPIRATORY: Inspiratory breath sounds are of normal intensity in all rashid. No rales, wheezes or rhonchi. CARDIOVASCULAR: Rhythm is regular. ABDOMEN: The abdomen is nondistended. Extremities: No swelling or edema. SKIN: No jaundice. NEUROLOGIC: human resource intern II-XII are grossly intact. Diminished hip flexor strength right leg. Patellar DTRs remain slightly diminished, but symmetric. MS: No tenderness or mass of the right quadriceps muscle. LABS: ASSESSMENT/PLAN: (C90.00) Multiple myeloma not having achieved remission (HCC) (primary encounter diagnosis) Assessment: -The patient is a 73-year-old male has a past medical history significant for diabetes and chronic diarrhea that was characterized by one explosive watery stool daily (was diagnosed with pancreatic insufficiency). Was hospitalized 03/2022 when diarrhea significantly worsened and he was diagnosed with and treated for Campylobacter infection. During that evaluation, was found to have two IgG lambda monoclonal antibodies. He did not have hypercalcemia or anemia but had elevated serum creatinine (which may have been related to volume depletion when hospitalized for diarrhea and mental status change). 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 Low to intermediate risk disease (PCs 20%). -Imaging--no lytic lesions on whole body CT; Liver cyst and splenic nodule (6-12 month f/u MRI recommended). -Bone marrow negative for amyoid. -Colonic biopsies negative for amyloid. -Subsequent MRI of spine and pelvis revealed two T2 hyperintense foci in the pelvis, one in the left sacral rebeka and one in the right ischium. -FISH panel revealed (11;14) (q13;q32) (IGH/CCND1) translocation consistent with the presence of a plasma cell neoplasm associated with standard risk disease. -R-ISS stage I (serum beta microglobulin less than 3.5 mg/L and serum albumin greater than 3.5 g/dL; standard risk disease by FISH testing as outlined above and serum LDH less than upper limit of normal). -VGPR as of 11/2023 (Serum and urine monoclonal protein detected only by immunofixation). -Reviewed CBC. Mild asymptomatic anemia and lymphocytopenia. -ECOG currently 1. -Recent influenza A. Likely prolonged clearance secondary to underlying immunocompromise. -Recurrent infection with Campylobacter. Seems to be responding to azithromycin. Plan: -Hold on restarting lenalidomide until completely over the episode of Campylobacter. -Monthly Zometa (will receive dose 10 of 12 today). -Repeat CBC and CMP next week. May restart lenalidomide at that time pending results and his symptoms. -CBC, chemistries and serum protein electrophoresis and immunofixation as well as 24-hour urine collection for electrophoresis and immunofixation monthly per protocol. Supportive care: ID: Plan: -Receiving posttransplant vaccinations. -His will message ID about seeing one of the physicians at [facility] regarding recurrent Campylobacter infection. Heme: -As above. Skeletal: -Only lytic lesions observed over those in the pelvic bones on MRI initially. Plan: -Continue monthly Zometa tomorrow. Assessment: -B/L PE on ASA prophylaxis. -Previous evidence of pulmonary hypertension on echocardiogram. -Tolerating apixaban well. Plan: -Continue apixaban. 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 Likely a consequence of nerve impingement as evidenced by previous MRI and not related to therapy for myeloma. 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 -Currently symptoms much better. Unclear if was exacerbated by previous bortezomib and autologous transplant. Discussed lenalidomide may exacerbate as well and we will monitor once he restarts. Portions of this documentation were copied and pasted from previous office visit notes in order to provide a cohesive continuity of the history. The note has been reviewed and edited and updated as necessary. I spent a total of 40 minutes on the date of the service which included preparing to see the patient (reviewing records via electronic medical record [facility]), [id number] patient care, completing clinical documentation, obtaining and/or reviewing separately obtained history, performing a medically appropriate examination, counseling and educating the patient/family/caregiver, ordering medications, tests, or procedures, communicating with other HCPs (not separately reported), and communicating results to the patient/family/caregiver. Connie Mccain DO documented in this encounter [facility] 02-05-2024 Miscellaneous Notes Left a voicemail for patient on 's phone at this time. Temo Gill RN documented in this encounter [facility] 02-05-2024 Miscellaneous Notes [employer] auth #[id number]. Please send electronically. Betsy Henriquez LPN documented in this encounter [facility] 02-02-2024 Discharge summary Note Date/Time February 02, 2024 1:06pm [facility] Medical Records Department [address] [place] [id number] Discharge Summary 02/02/24 1302 MR#: [id number] Acct: [id number] Name: OSEAS JOSEPH Rep #:[id number] : 1950 73 From: Estrella Ramos DO PCP: Dr. Connie Lugo MD Status:ADM I N Location: [place] [address] Providers Date of Admission: 01/31/24 Date of Discharge: 02/02/24 Primary Care Physician: Dr. Connie Lugo MD Consultations 02/01/24 03:09 Consult: Oncology/Hematology Routine Consulting Provider: Connie Mccain Reason for Consult: Neutropenic fever in the setting of known multiple myeloma on Revlimid EMERGENT Consult: No MD Notified: Yes Date Notified: 02/01/24 Time Notified: 03:09 Method of Notification: ED Physician Initiated Reason For Visit: NEUTROPENIC FEVER, INFLUENZA A AND METABOLIC Diagnosis Discharge Diagnosis (1) Diarrhea: Status: Acute Code(s): R19.7 - Diarrhea, unspecified (2) Metabolic encephalopathy: Status: Acute Code(s): G93.41 - Metabolic encephalopathy (3) Neutropenic fever: Status: Acute Code(s): D70.9 - Neutropenia, unspecified; R50.81 - Fever presenting with conditions classified elsewhere (4) Pancytopenia: Status: Acute Code(s): D61.818 - Other pancytopenia (5) Influenza A: Status: Acute Code(s): J10.1 - Influenza due to other identified influenza virus with other respiratorymanifestations (6) Acidosis, lactic: Status: Acute Code(s): E87.20 - Acidosis, unspecified (7) Hypokalemia: Status: Acute Code(s): E87.6 - Hypokalemia Medications at Discharge Home Medications amlodipine 5 mg tablet 5 mg PO DAILY blood pressure 02/09/21 atorvastatin 10 mg tablet 10 mg PO DAILY cholesterol 02/09/21 losartan 50 mg tablet 50 mg PO DAILY BP 04/19/22 clonazepam 0.5 mg tablet 0.5 mg PO QHS anxiety 09/16/22 Velade See Rx Instructions .Route .COMPLEX CHEMO 01/16/23 acyclovir 400 mg tablet 400 mg PO BID anti viral 01/16/23 glimepiride 4 mg tablet 4 mg PO BID diabetes 01/27/24 lenalidomide 10 mg capsule (Revlimid) 10 mg PO DAILY multiple myeloma 01/27/24 rivaroxaban 20 mg tablet (Xarelto) 20 mg PO QPM anticoagulant 01/27/24 azithromycin 500 mg tablet 500 mg PO DAILY 14 days #14 tabs 02/02/24 oseltamivir 75 mg capsule 75 mg PO BID #0 caps 02/02/24 Hospital Course Operations None Procedures - (CT brain/chest x-ray) Summary of Care Provided Minutes Spent on Discharge: 38 Hospital Course: Mr. Joseph is a 73-year-old white male who presented to the emergency department at [facility] on 01/31/2024 with confusion and a low-grade fever. He has a history of multiple myeloma and is status post a stem cell transplant and on Revlimid. He follows with Dr. Mccain as an outpatient forhis cancer. Upon presentation his and daughter helped with his history as he was fairly confused. They reported that his symptoms began approximately 2 days prior to admission and he was notably coming more confused with a waxing and waning pattern. He had been seen in the emergency department the day prior for his confusion and had some hypoglycemia that improved with administration ofglucose and oral intake and he was sent back home. He is also been having some loose stool and we do have a C. difficile pending at this time. Tmax at home was 99.4. Vital signs on presentation showed a temperature of 96.9, heart rate 58, blood pressure was 140/77, respiratory rate was 18 oxygen saturations are 100% on room air. The patient is chronically pancytopenic due to his Revlimid and his white count on presentation was 1.3, hemoglobin was 10.3, and platelet count was 127,000 all of which appear fairly stable. His absolute neutrophil count was 0.7. Coags were abnormal and elevated however the patient is on rivaroxaban at baseline. His chemistry panel showed normal electrolytes. His serum creatinine was slightly above baseline at 1.27 however not that far off is normal. His serum glucose was 199. His lactic acid was 2.2. Liver functions were normal. The case was discussed with his oncologist and they recommended admission with workup for neutropenic fever and placement on Zosyn. In the meantime we did find that his flu swab was positive and he was started on Tamiflu as well. With regards to influenza he did well throughout his hospitalization. He was afebrile and had no significant respiratory symptoms other than some dry coughing. He did not require any supplemental oxygen and was maintained on Tamiflu during his hospitalization. He did have some electrolyte abnormalities with hypokalemia and hypophosphatemia which were replaced both oral and IV during his hospital course. I have asked that he get a follow-up BMP and Phos level in about 5 to 7 days to reassess. His does indicate that potassium has been a problem for him in the past. He also had several bouts of diarrhea during his hospital course. He does have a history ofC. difficile and Campylobacter infection previously. We sent a C. difficile panel as well as an enteric stool panel. His C. difficile was negative however his Campylobacter was positive. He was started on azithromycin 500 mg p.o. daily which was started on the day of discharge. Given the fact that he is immunocompromised at baseline, we will continue on aggressive management course of azithromycin 500 mg daily for another 13 days at the time of discharge for his Campylobacter infection. We did advise that he hold his glimepiride at homeif his p.o. intake is some adequate as he did present previously with some hypoglycemia and I suspect it is related to decreased p.o. intake and continued dosing of his glimepiride. I did touch base with his oncologist, Dr. Mccain, whorecommended that he hold his Revlimid until he is notified otherwise by their office. He does have an upcoming appointment with Dr. Mccain next week and I have advised that they follow-up with their primary care physician within the next 2 weeks. Discharge diagnoses: Neutropenic fever secondary to influenza A/Campylobacter infection Acute diarrhea secondary to acute Campylobacter infection Acute influenza A infection Toxic/metabolic encephalopathy-resolved Chronic pancytopenia secondary to chemotherapy Hypokalemia-treated Hypophosphatemia-treated Lactic acidosis DM-2 History of multiple myeloma status post stem cell transplant History of bilateral PE HTN HPL Chronic right bundle branch block History of restless leg syndrome History of osteoarthritis History of skin cancer Physical Exam Const alert, oriented x3, no apparent distress, average body habitus, no limitations and well nourished Constitutional Narrative: Older, white male, lying in bed, appears fatigued but comfortable, does not appear toxic at this time, at bedside, nursing at bedside General Appearance: cooperative, comfortable, well kempt and well developed Orientation / Consciousness: awake, oriented to person, oriented to place and oriented to time Exam Limitations: no limitations HEENT normocephalic, head/scalp atraumatic, hearing grossly normal bilaterally and moist oral mucous membranes HEENT Narrative: Mallampati is 2-3, no thrush Eyes PERRL, EOMs intact bilaterally and conjunctivae normal Eyes Narrative: No scleral icterus Neck no lymphadenopathy and supple Neck Narrative: Trachea midline, no thyroid enlargement Resp normal respiratory effort, no retractions, no use of accessory muscles and No clear to auscultation bilaterally Resp Narrative: Few scattered end expiratory wheezes in the bases bilaterally that cleared with cough Auscultation: wheezes; Negative for rales or rhonchi Cardio regular rate, regular rhythm, S1 normal heart sound, S2 normal heart sound, no murmurs, no rub, no gallops and no clicks GI soft to palpation, non-tender and non-distended GI Narrative: Bowel sounds are mildly hyperactive Extremity no clubbing, cyanosis or edema Extremity Narrative: Pedal pulses are 2+ Skin no rashes or lesions noted, no wounds, skin turgor normal and no jaundice Neuro oriented x3, moves all extremities and no focal motor deficits Neuro Narrative: Mild generalized weakness noted Speech: speech normal Psych affect normal Psych Narrative: Interacts appropriately, very pleasant Weight / BMI Weight Weight: 81.4 kg Body Mass Index (BMI) 24.3 ABG / Lab / Microbiology Data 02/02/24 07:10 02/02/24 07:10 Laboratory: Laboratory Results - last 24 hr 01/31/24 18:30: Diff Path Review Reviewed 02/01/24 07:05: Diff Path Review Reviewed 02/01/24 16:28: POC Glucose 106 02/01/24 21:41: POC Glucose 116 H 02/02/24 05:44: POC Glucose 109 H 02/02/24 07:10: WBC 1.9 L, RBC 3.84 L, Hgb 11.5 L, Hct 34.1 L, MCV 88.8, MCH 29.9, MCHC 33.7, RDW Std Deviation 46.1 H, RDW Coeff of John 14.3, Plt Count 147 L, MPV 10.8, Sodium 142, Potassium 3.1 L, Chloride 116 H, Carbon Dioxide 20.0 L,Anion Gap 6, BUN 9, Creatinine 1.11, Estim Creat Clear Calc 67.00, Est GFR (MDRD) Af Amer 84, Est GFR (MDRD) Non-Af 69, BUN/Creatinine Ratio 8.1 L, [id number] H, Calcium 8.2 L, Phosphorus 2.3 L Microbiology: Microbiology 02/02/24 09:20 Stool Enteric Bacteriology - Final Campylobacter species 02/02/24 09:20 Stool Clostridioides difficile (PCR) - Final 01/31/24 21:00 Urine, Catheterized Urine Culture - Final Culture exhibits no growth. 01/31/24 18:25 Mucosa - Nose SARS-CoV-2, Influenza & RSV (PCR) - Final Influenzae A D/C Instructions Discharge Diet: 2000 Calorie Control Diet Discharge Activity: Return to Normal Activity Meaningful Use Info Meaningful Use Diagnoses (Choose all that apply): None applicable Discharge Plan Admission Admit Date/Time: 01/31/24 22:50 Primary Reason for Your Visit: Confusion/fever Attending Provider: Estrella Ramos Primary Care Provider: Connie Lugo Consulting Providers: Connie Mccain; Eunice Corbett Instructions Additional Instructions / Restrictions: 1. You were diagnosed with influenza A and should continue the Tamiflu that youhave at home for 7 more doses with the first dose to take at home tonight. 2. You are also diagnosed with Campylobacter which is causing your diarrhea. You will continue antibiotics with azithromycin 500 mg twice daily for total of 14 days. You will have 13 more doses at the time of discharge as you received your first dose in the hospital. 3. Hold glimepiride if your are not able to eat well 4. Please call either your oncologist or primary care physician to have a basicmetabolic profile and a phosphorus level checked within the next 5 to 7 days Discharge Orders/Prescriptions Prescriptions: New oseltamivir 75 mg Capsule 75 mg PO BID Qty: 0 0RF Rx Instructions: take 7 more doses azithromycin 500 mg tablet 500 mg PO DAILY 14 Days Qty: 14 0RF Continued atorvastatin 10 mg tablet 10 mg PO DAILY amlodipine 5 mg tablet 5 mg PO DAILY losartan 50 mg tablet 50 mg PO DAILY clonazepam 0.5 mg tablet 0.5 mg PO QHS acyclovir 400 mg tablet 400 mg PO BID Velade See Rx Instructions .ROUTE .COMPLEX Rx Instructions: GETS IV WEEKLY AT DR MCCAIN'S OFFICE glimepiride 4 mg tablet 4 mg PO BID Xarelto 20 mg tablet 20 mg PO QPM Held lenalidomide [Revlimid] 10 mg capsule 10 mg PO DAILY Hold Instructions: Until instructed otherwise by Dr. Mccain office Referrals / Follow Up: Connie Mccain DO [Med Staff - Active Staff] - See Referral Note (as scheduled) Connie Lugo MD [Primary Care Provider] - Within 2 Weeks (Please call the office to schedule an appt within the next 2 weeks. ) Disposition Disposition (needs filled in before D/C Order can be placed): Home, Self Care Charges/Coding Visit Charges Inpatient E&M: 06555 Disch Hosp >30min 02/02/24 1320 <Electronically signed by Estrella Ramos DO> Cosigner Signature (if applicable): CC: Dr. Estrella Ramos DO; Dr. Connie Mccain DO; Dr. Connie Lugo MD~ Signed [facility] Work Phone: [phone]) 884-348704-12-2024 [facility] Medical Records Department [address] [place] [address] Discharge Summary 02/02/24 1302 MR#: [id number] Acct: [id number] Name: OSEAS JOSEPH Rep #: [id number] : 1950 73 From: Estrella Ramos DO PCP: Dr. Connie Lugo MD Status:ADM IN [id number] Prov[facility] Date of Admission: 01/31/24 Date of Discharge: 02/02/24 Primary Care Physician: Dr. Connie Lugo MD Consultations 02/01/24 03:09 Consult: Oncology/Hematology Routine Consulting Provider: Connie Mccain Reason for Consult: Neutropenic fever in the setting of known multiple myeloma on Revlimid EMERGENT Consult: No MD Notified: Yes Date Notified: 02/01/24 Time Notified: 03:09 Method of Notification: ED Physician Initiated Reason For Visit: NEUTROPENIC FEVER, INFLUENZA A AND METABOLIC Diagnosis Discharge Diagnosis (1) Diarrhea: Status: Acute Code(s): R19.7 - Diarrhea, unspecified (2) Metabolic encephalopathy: Status: Acute Code(s): G93.41 - Metabolic encephalopathy (3) Neutropenic fever: Status: Acute Code(s): D70.9 - Neutropenia, unspecified; R50.81 - Fever presenting with conditions classified elsewhere (4) Pancytopenia: Status: Acute Code(s): D61.818 - Other pancytopenia (5) Influenza A: Status: Acute Code(s): J10.1 - Influenza due to other identified influenza virus with other respiratory manifestations (6) Acidosis, lactic: Status: Acute Code(s): E87.20 - Acidosis, unspecified (7) Hypokalemia: Status: Acute Code(s): E87.6 - Hypokalemia Medications at Discharge Home Medications amlodipine 5 mg tablet 5 mg PO DAILY blood pressure 02/09/21 atorvastatin 10 mg tablet 10 mg PO DAILY cholesterol 02/09/21 losartan 50 mg tablet 50 mg PO DAILY BP 04/19/22 clonazepam 0.5 mg tablet 0.5 mg PO QHS anxiety 09/16/22 Velade See Rx Instructions .Route .COMPLEX CHEMO 01/16/23 acyclovir 400 mg tablet 400 mg PO BID anti viral 01/16/23 glimepiride 4 mg tablet 4 mg PO BID diabetes 01/27/24 lenalidomide 10 mg capsule (Revlimid) 10 mg PO DAILY multiple myeloma 01/27/24 rivaroxaban 20 mg tablet (Xarelto) 20 mg PO QPM anticoagulant 01/27/24 azithromycin 500 mg tablet 500 mg PO DAILY 14 days #14 tabs 02/02/24 oseltamivir 75 mg capsule 75 mg PO BID #0 caps 02/02/24 Hospital Course Operations None Procedures - (CT brain/chest x-ray) Summary of Care Provided Minutes Spent on Discharge: 38 Hospital Course: Mr. Joseph is a 73-year-old white male who presented to the emergency department at [facility] on 01/31/2024 with confusion and a low-grade fever. He has a history of multiple myeloma and is status post a stem cell transplant and on Revlimid. He follows with Dr. Mccain as an outpatient for his cancer. Upon presentation his and daughter helped with his history as he was fairly confused. They reported that his symptoms began approximately 2 days prior to admission and he was notably coming more confused with a waxing and waning pattern. He had been seen in the emergency department the day prior for his confusion and had some hypoglycemia that improved with administration of glucose and oral intake and he was sent back home. He is also been having some loose stool and we do have a C. difficile pending at this time. Tmax at home was 99.4. Vital signs on presentation showed a temperature of 96.9, heart rate 58, blood pressure was 140/77, respiratory rate was 18 oxygen saturations are 100% on room air. The patient is chronically pancytopenic due to his Revlimid and his white count on presentation was 1.3, hemoglobin was 10.3, and platelet count was 127,000 all of which appear fairly stable. His absolute neutrophil count was 0.7. Coags were abnormal and elevated however the patient is on rivaroxaban at baseline. His chemistry panel showed normal electrolytes. His serum creatinine was slightly above baseline at 1.27 however not that far off is normal. His serum glucose was 199. His lactic acid was 2.2. Liver functions were normal. The case was discussed with his oncologist and they recommended admission with workup for neutropenic fever and placement on Zosyn. In the meantime we did find that his flu swab was positive and he was started on Tamiflu as well. With regards to influenza he did well throughout his hospitalization. He was afebrile and had no significant respiratory symptoms other than some dry coughing. He did not require any supplemental oxygen and was maintained on Tamiflu during his hospitalization. He did have some electrolyte abnormalities with hypokalemia and hypophosphatemia which were replaced both oral and IV during his hospital course. I have asked that he get a follow- up BMP and Phos level in about 5 to 7 days to reassess. His does indicate that potassium has been a problem for him in the past. He also had several bouts of diarrhea during his (more content not included)...[facility]04-11-2024 Progress note Author Estrella Ramos [facility] February 01, 2024 3:03pm Note Date/Time February 01, 2024 2:0 5pm [facility] Medical Records Department [address] [place] [address] Progress Note - Hospitalist 02/01/24 1402 MR#: [id number] Acct: [id number] Name: OSEAS JOSEPH Rep #:[id number] : 1950 73 From: Estrella Ramos DO PCP: Dr. Connie Lugo MD Status:ADM I N Location: [place] [address] Reason for Visit Reason for Visit: Confusion/fever Subjective Subjective Mr. Abdi is a 73-year-old white male who presented to the emergency department at [facility] on 01/31/2024 with confusion and a low-grade fever. He has a history of multiple myeloma and is status post a stem cell transplant and on Revlimid. He follows with Dr. Mccain as an outpatient forhis cancer. Upon presentation his and daughter helped with his history as he was fairly confused. They reported that his symptoms began approximately 2 days prior to admission and he was notably coming more confused with a waxing and waning pattern. He had been seen in the emergency department the day prior for his confusion and had some hypoglycemia that improved with administration ofglucose and oral intake and he was sent back home. He is also been having some loose stool and we do have a C. difficile pending at this time. Tmax at home was 99.4. Vital signs on presentation showed a temperature of 96.9, heart rate 58, blood pressure was 140/77, respiratory rate was 18 oxygen saturations are 100% on room air. The patient is chronically pancytopenic due to his Revlimid and his white count on presentation was 1.3, hemoglobin was 10.3, and platelet count was 127,000 all of which appear fairly stable. His absolute neutrophil count was 0.7. Coags were abnormal and elevated however the patient is on rivaroxaban at baseline. His chemistry panel showed normal electrolytes. His serum creatinine was slightly above baseline at 1.27 however not that far off isnormal. His serum glucose was 199. His lactic acid was 2.2. Liver functions were normal. The case was discussed with his oncologist and they recommended admission with workup for neutropenic fever and placement on Zosyn. In the meantime we did find that his flu swab was positive and he was started on Tamiflu as well. Today the patient is much better overall. He is currently at alert and orientedx 3. His said yesterday he could not even remember the names of his children. She does not feel that he is quite back to baseline but is much improved. He is having some intermittent loose stool and we will send a C. difficile for this. If it is negative we will go ahead and start some Imodium. We did discuss that if he is feeling better tomorrow we can possibly get him discharged. Objective Data Objective Data Vital Signs: Vital Signs Temp Pulse Resp BP Pulse Ox O2 Del Method 97.7 F L 57 L 16 123/52 H 97 Room Air 02/01/24 09:26 02/01/24 09:26 02/01/24 09:26 02/01/24 09:26 02/01/24 09:26 02/01/24 09:45 Oxygen Delivery Method Room Air Weight: 79.7 kg Body Mass Index (BMI) 23.8 Intake & Output: Intake and Output for Last 24 Hours 01/30/24 01/31/24 02/01/24 23:59 23:59 23:59 Intake Total 600 / 600 1007.5 / 1007.5 Balance 600 / 600 1007.5 / 1007.5 Lab / Micro Data 02/01/24 07:05 02/01/24 07:05 Labs: Laboratory Results - last 24 hr 01/31/24 17:45: POC Glucose 78 01/31/24 18:30: WBC 1.3 L*, RBC 4.10 L, Hgb 12.4 L, Hct 36.7 L, MCV 89.5, MCH 30.2, MCHC 33.8, RDW Std Deviation 45.5 H, RDW Coeff of John 14.0, Plt Count 126 L, MPV 11.3, Immature Gran % (Auto) 0.800, Neut % (Auto) 47.3, Lymph % (Auto) 30.7, Morton % (Auto) 15.7 H, Eos % (Auto) 3.9, Baso % (Auto) 1.6 H, Absolute Neuts (auto) 0.6 L, Absolute Lymphs (auto) 0.39 L, Nucleated RBC % 0, Differential Comment SCANNED, Diff Path Review February, PT 25.0 H, INR 2.3, APTT 32.8, Sodium 138, Potassium 3.5, Chloride 109 H, Carbon Dioxide 24.0, AnionGap 5, BUN 17, Creatinine 1.27, Estim Creat Clear Calc 60.29, Est GFR (MDRD) Af Amer 72, Est GFR (MDRD) Non-Af 59 L, BUN/Creatinine Ratio 13.4, Glucose 199 H, Lactic Acid 2.2 H*, Calcium 8.3 L, Total Bilirubin 0.80, AST 17, ALT 25, Alkaline Phosphatase 46, Troponin I High Sens 17, Total Protein 6.7, Albumin 3.0L, Globulin 3.7, Albumin/Globulin Ratio 0.8 L, Folate 19.60 01/31/24 19:44: POC Glucose 153 H 01/31/24 21:00: Urine Color Yellow, Urine Clarity Clear, Urine pH 6.0, Ur Specific Gheens 1.015, Urine Protein 100 H, Urine Glucose (UA) 250 H, Urine Ketones 5 H, Urine Occult Blood 25 H, Urine Nitrite Negative, Urine Bilirubin Negative, Urine Urobilinogen Normal, Ur Leukocyte Esterase Negative, Urine RBC 0-5 SEEN, Urine WBC 0 SEEN, Ur Squamous Epith Cells 0 SEEN, Urine Bacteria RARE,Urine Mucus 1+, Urine Opiates Screen Cancelled, Urine Methadone Screen Cancelled, Ur Barbiturates Screen Cancelled, Ur Phencyclidine Scrn Cancelled, UrAmphetamines Screen Cancelled, MDMA (Ecstasy) Screen Cancelled, U Benzodiazepines Scrn Cancelled, Urine Cocaine Screen Cancelled, U Cannabinoids Screen Cancelled, Ur Drug Screen Comment Cancelled 01/31/24 23:54: Lactic Acid 1.0 02/01/24 00:16: POC Glucose 103 02/01/24 05:56: POC Glucose 104 02/01/24 07:05: WBC 1.5 L*, RBC 3.65 L, Hgb 10.8 L, Hct 31.8 L, MCV 87.1, MCH 29.6, MCHC 34.0, RDW Std Deviation 44.6 H, RDW Coeff of John 13.9, Plt Count 127 L, MPV 10.8, Immature Gran % (Auto) 0.600, Neut % (Auto) 48.2, Lymph % (Auto) 30.5, Morton % (Auto) 14.9 H, Eos % (Auto) 3.9, Baso % (Auto) 1.9 H, Absolute Neuts (auto) 0.7 L, Absolute Lymphs (auto) 0.47 L, Nucleated RBC % 0, Differential Comment SCANNED, Diff Path Review February, Sodium 140, Potassium 3.0 L, Chloride 114 H, Carbon Dioxide 20.0 L, Anion Gap 6, BUN 13, Creatinine 1.04, Estim Creat Clear Calc 71.51, Est GFR (MDRD) Af Amer 90, Est GFR (MDRD) Non-Af 75, BUN/Creatinine Ratio 12.5, Glucose 110 H, Hemoglobin A1c 6.0 H, Calcium 7.5 L, Phosphorus 2.2 L, Magnesium 2.0, Total Bilirubin 0.80, AST 13 L, ALT 17, Alkaline Phosphatase 41 L, Total Protein 5.8 L, Albumin 2.5 L, Globulin 3.3, Albumin/Globulin Ratio 0.8 L, Vitamin B12 337 Micro: Microbiology 01/31/24 18:25 Mucosa - Nose SARS-CoV-2, Influenza & RSV (PCR) - Final Influenzae A Radiography Diagnostic Testing: Radiology Impression Brain CT 01/31/24 17:57 IMPRESSION: 1. Diffuse involutional change and mild chronic microvascular deep white matter disease. 2. No intracranial mass, hemorrhage or acute territorial infarct. 3. Bilateral maxillary and ethmoid sinus disease. Electronically Signed: Jair Stone MD at 19:30 EDT , Chest X-Ray 01/31/24 21:15 IMPRESSION: 1. No evidence of acute cardiopulmonary process Electronically Signed: Jair Stone MD at 21:36 EDT , Physical Exam Const alert, oriented x3, no apparent distress, average body habitus and well nourished Constitutional Narrative: Older, white male, lying in bed, appears fatigued but comfortable, does not appear toxic at this time, at bedside, nursing at bedside HEENT head/scalp atraumatic and moist oral mucous membranes HEENT Narrative: Mallampati 3, no thrush Head and Scalp: normocephalic Resp normal respiratory effort, no retractions, no use of accessory muscles and clearto auscultation bilaterally Auscultation: Negative for rales, rhonchi or wheezes Cardio regular rate, regular rhythm, S1 normal heart sound, S2 normal heart sound, no murmurs, no rub, no gallops and no clicks GI normal to inspection, nondistended, normoactive bowel sounds, soft to palpation and non-tender Extremity no clubbing, cyanosis or edema Extremity Narrative: Pedal pulses are 2+ Neuro oriented x3, moves all extremities and no focal motor deficits Neuro Narrative: Mild generalized weakness noted Speech: speech normal Psych Psych Narrative: Affect is slightly flat but patient appears fatigued and this seems appropriate for his current condition, very pleasant, interacts appropriately and answers questions appropriately Assessment & Plan Assessment/Plan (1) Diarrhea: (2) Metabolic encephalopathy: (3) Neutropenic fever: (4) Pancytopenia: (5) Influenza A: (6) Acidosis, lactic: (7) Hypokalemia: PLAN: Plan Neutropenic fever -Most likely related to influenza A -Continue Tamiflu will need a total of 5 days -Cultures pending -Continue Zosyn for now -Neutrophil count is about the same -Discussed with Dr. Mccain and he agrees if he continues to feel improved by tomorrow he should be able to go home off antibiotics Acute influenza A -See above Toxic/metabolic encephalopathy -Resolving -Patient is now alert and oriented x 3 - states yesterday he could not even remember the name of his children -Continue to monitor next-likely related to the above Chronic pancytopenia secondary to chemotherapy -Counts are stable at this time -Will monitor Hypokalemia/hypophosphatemia -K-Phos bolus given -Will repeat lab in a.m. -Likely related to decreased p.o. intake as of recently due to illness Lactic acidosis -Resolved -Likely related to the above Diarrhea -Check C. difficile -If negative will start Imodium DM-2 -Patient's had some outpatient hypoglycemia -Hold glimepiride -Suspect related to decreased p.o. intake with influenza -Blood sugars are better -Hemoglobin A1c was 6.0 History of multiple myeloma status post stem cell transplant -On Revlimid as an outpatient -Continue outpatient follow-up with Dr. Mccain History of bilateral PE -Continue rivaroxaban HTN/HPL -Continue home statin -Continue home amlodipine -Continue home losartan Chronic right bundle branch block -Stable History of restless leg syndrome -Patient does not take any medication at baseline -Monitor History of skin cancer -Stable Osteoarthritis -As needed Tylenol DVT prophylaxis -Continue home Xarelto CODE STATUS -Full code Charges/Coding Visit Charges Inpatient E&M: 21873 Subs Hosp L2 02/01/24 1500 <Electronically signed by Estrella Ramos DO> Michelineignlino Signature (if applicable): CC: ~ Signed [facility] Work Phone: 1(207) 261-246604-11-2024 Miscellaneous Notes* Telephone Encounter - Temo Gill RN - 02/01/2024 12:53 PM EDT Left a voicemail for patient on 's phone at this time. Temo Gill RN [facility] Telephone encounter Note * Telephone Encounter - Breonna Lord - 02/01/2024 10:35 AM EDT Spouse called to inform office that patient is inpatient at [facility]. She requested to speak with Belem Gill [facility] Work Phone: 1(536) 689-922104-11-2024 Miscellaneous Notes* Telephone Encounter - Breonna Lord - 02/01/2024 10:35 AM EDT Spouse called to inform office that patient is inpatient at [facility]. She requested to speak with K Rocio documented [facility]04-[facility] History and physical note Author Eunice Asencio [facility] February 01, 2024 3:52am Note Date/Time January 31, 2024 10: 50pm [facility] Medical Records Department [address] [place] [address] H&P Exam - Hospitalist 01/31/242221 MR#: [id number] Acct: [id number] Name: OSEAS JOSEPH Rep #:[id number] : 1950 73 From: Eunice Arnett DO PCP: Dr. Connie Lugo MD Status:ADM I N Location: [place] [address] HPI - General General Date of Admission: 01/31/24 Date of Service: 01/31/24 Chief Complaint: Confusion and Low-grade Fever. HPI Narrative OSEAS JOSEPH, is a 73 M with a past medical history of essential hypertension, hyperlipidemia, DM-2; of unknown control on Glimepiride, history of X; on Xarelto, history of multiple myeloma; s/p stem-cell transplant and on Revlimid (that is likely causing pancytopenia), history of skin cancer, RLS, history of RBBB, OA and recent influenza A infection about 1 month ago with several family members becoming ill and passing it back and forth to one anotherwho [facility] complaining of confusion and low-grade fever. Mr. Joseph is not a fully reliable historian at this time so information was gathered from chart, medical staff and computer plus his and daughter at the bedside. According to the records his symptoms began approximately 2 days prior to admission with the patient notably becoming more confused and a [id number] pattern. He was actually seen in this ER yesterday for confusion and was diagnosed with hypoglycemia that improved after administration of glucose and increased oral intake so he was then discharged home. Unfortunately, his confusion became worse earlier today in spite of a normal glucose so his brought him back in for further evaluation and treatment. They also report increasing hiccups for the past 2 to 3 days that have disrupted his sleep and they also seem to have exacerbated his confusion. In the ER he was noted to have a white blood cell count of 1.3 along with an elevated temperature of 99.3 ?F consistent with suspected neutropenic fever complicated by viral assay returning positive for influenza A compounded by clinical evidence of metabolic encephalopathy with his oncologist recommending empiric IV Zosyn and admission to PCU for stay that is expected to be greater than 48 hours. [facility] Medical History Diabetes mellitus High cholesterol History of echocardiogram History of skin cancer HTN (hypertension) Hypokalemia Multiple myeloma Non-smoker Open wound RBBB Restless legs Wears glasses Home Medications amlodipine 5 mg tablet 5 mg PO DAILY blood pressure 02/09/21 [History Last Taken 01/16/23] atorvastatin 10 mg tablet 10 mg PO DAILY cholesterol 02/09/21 [History Last Taken 01/16/23] losartan 50 mg tablet 50 mg PO DAILY BP 04/19/22 [History Last Taken 01/16/23] clonazepam 0.5 mg tablet 0.5 mg PO QHS anxiety 09/16/22 [History Last Taken 01/15/23] Velade See Rx Instructions .Route .COMPLEX CHEMO 01/16/23 [History Last Taken 01/11/23] acyclovir 400 mg tablet 400 mg PO BID anti viral 01/16/23 [History Last Taken 01/16/23 07:00] glimepiride 4 mg tablet 4 mg PO BID 01/27/24 [History Last Taken Unknown] lenalidomide 10 mg capsule (Revlimid) 10 mg PO DAILY 01/27/24 [History Last Taken Unknown] rivaroxaban 20 mg tablet (Xarelto) 20 mg PO QPM 01/27/24 [History Last Taken Unknown] Allergy/AdvReac Type Severity Reaction Status Date / Time No Known Allergies Allergy Verified 01/31/24 17:28 Family History Other Diabetes Hypertension Surgical History History of wisdom tooth extraction Hx of hernia repair (~1965) Hx of stem cell transplant Social History Smoking Status: Never smoker alcohol intake: current alcohol intake frequency: a few times a week Alcohol type: beer substance use type: does not use ROS ROS Narrative Patient is febrile and confused and therefore cannot complete a full review of systems at this time. Review of Systems ROS Unobtainable: due to encephalopathy Vital Signs Vital Signs Vital Signs: 01/31/24 17:26 01/31/24 17:28 01/31/24 19:00 Temperature 96.9 F L 96.9 F L 99.5 F H Temperature Source Temporal Temporal Oral Pulse Rate 58 L 59 L 62 Respiratory Rate 18 18 14 Blood Pressure 140/77 H 138/66 H 129/58 H Blood Pressure Mean 98 90 81 Pulse Ox 100 100 99 Oxygen Delivery Method Room Air Room Air Room Air 01/31/24 20:00 01/31/24 21:00 01/31/24 22:00 Temperature 97.8 F 97.8 F 99.3 F H Temperature Source Temporal Temporal Oral Pulse Rate 89 78 62 Respiratory Rate 16 16 18 Blood Pressure 150/57 H 147/78 H 141/59 H Blood Pressure Mean 88 101 86 Pulse Ox 99 98 96 Oxygen Delivery Method Room Air Room Air Room Air Weight Weight: 180 lb 8.937 oz Body Mass Index (BMI) 23.8 Physical Exam Const alert, no apparent distress and average body habitus General Appearance: cooperative Orientation / Consciousness: confused HEENT normocephalic, head/scalp atraumatic, hearing grossly normal bilaterally and moist oral mucous membranes Eyes PERRL and EOMs intact bilaterally Neck no lymphadenopathy and supple Resp normal respiratory effort, no retractions, no use of accessory muscles and clearto auscultation bilaterally Cardio regular rate and regular rhythm GI normal to inspection, nondistended, normoactive bowel sounds, soft to palpation,non-tender and non-distended Extremity normal to inspection, full ROM and no clubbing, cyanosis or edema Skin Skin Narrative: Patient has no evidence of abscess, jaundice or rash. Neuro CN's II-XII intact bilaterally and moves all extremities Neuro Narrative: Patient is alert and attempts to answer questions appropriately. Sensorium / Orientation: awake, alert, oriented to person and oriented to place Speech: speech normal Psych affect normal Results Medical Records Data Attestation: I reviewed the patient's medical records Lab / Micro Data Attestation: I reviewed the patient's lab results. 01/31/24 18:30 01/31/24 18:30 Labs: Laboratory Results - last 24 hr 01/31/24 17:45: POC Glucose 78 01/31/24 18:30: WBC 1.3 L*, RBC 4.10 L, Hgb 12.4 L, Hct 36.7 L, MCV 89.5, MCH 30.2, MCHC 33.8, RDW Std Deviation 45.5 H, RDW Coeff of John 14.0, Plt Count 126 L, MPV 11.3, Immature Gran % (Auto) 0.800, Neut % (Auto) 47.3, Lymph % (Auto) 30.7, Morton % (Auto) 15.7 H, Eos % (Auto) 3.9, Baso % (Auto) 1.6 H, Absolute Neuts (auto) 0.6 L, Absolute Lymphs (auto) 0.39 L, Nucleated RBC % 0, Differential Comment SCANNED, Diff Path Review February, PT 25.0 H, INR 2.3, APTT 32.8, Sodium 138, Potassium 3.5, Chloride 109 H, Carbon Dioxide 24.0, AnionGap 5, BUN 17, Creatinine 1.27, Estim Creat Clear Calc 60.29, Est GFR (MDRD) Af Amer 72, Est GFR (MDRD) Non-Af 59 L, BUN/Creatinine Ratio 13.4, Glucose 199 H, Lactic Acid 2.2 H*, Calcium 8.3 L, Total Bilirubin 0.80, AST 17, ALT 25, Alkaline Phosphatase 46, Troponin I High Sens 17, Total Protein 6.7, Albumin 3.0L, Globulin 3.7, Albumin/Globulin Ratio 0.8 L 01/31/24 19:44: POC Glucose 153 H 01/31/24 21:00: Urine Color Yellow, Urine Clarity Clear, Urine pH 6.0, Ur Specific Gheens 1.015, Urine Protein 100 H, Urine Glucose (UA) 250 H, Urine Ketones 5 H, Urine Occult Blood 25 H, Urine Nitrite Negative, Urine Bilirubin Negative, Urine Urobilinogen Normal, Ur Leukocyte Esterase Negative, Urine RBC 0-5 SEEN, Urine WBC 0 SEEN, Ur Squamous Epith Cells 0 SEEN, Urine Bacteria RARE,Urine Mucus 1+ Micro: Microbiology 01/31/24 18:25 Mucosa - Nose SARS-CoV-2, Influenza & RSV (PCR) - Final Influenzae A Imaging Radiology Impression Brain CT 01/31/24 17:57 IMPRESSION: 1. Diffuse involutional change and mild chronic microvascular deep white matter disease. 2. No intracranial mass, hemorrhage or acute territorial infarct. 3. Bilateral maxillary and ethmoid sinus disease. Electronically Signed: Jair Stone MD at 19:30 EDT , Chest X-Ray 01/31/24 21:15 IMPRESSION: 1. No evidence of acute cardiopulmonary process Electronically Signed: Jair Stone MD at 21:36 EDT , Assessment & Plan Assessment/Plan (1) Neutropenic fever: (2) Influenza A: (3) Metabolic encephalopathy: (4) Hypoglycemia: (5) Adverse drug reaction: QUALIFIERS: Encounter type: initial encounter Qualified Code(s): T50.905A - Adverse effect of unspecified drugs, medicaments and biological substances, initial encounter (6) Hx of multiple myeloma: PLAN: Plan 1. Neutropenic fever evidenced by leukopenia of 1.3 present on admission along with low-grade fever - Admit to PCU on reverse isolation. Continue with IV Zosyn recommended by oncology and await culture and sensitivity data. Give Tylenol as needed fever or pain. 2. Influenza A test positive this admission complicating #1 - Give Tamiflu plusvitamin D3, vitamin C and zinc to help boost immunity. Otherwise, continue supportive care and monitor for improvement. 3. Metabolic encephalopathy arising from #1 & #2 - Minimize CHAPLAINCY active medications. Check UDS to evaluate for intentionally reversible causes of confusion may be adding to the complexity of his case and proceed with treatmentoutlined above and monitor for improvement. 4. DM-2; with recent episode of hypoglycemia compounding #1 - #3 - ADA diet. FSBS q. AC/HS plus SSI. Check HgbA1c to objectively assess quality of diabetic control. Finally, we will hold glimepiride to prevent potential repeat episodesof hypoglycemia. 5. History of multiple myeloma; s/p stem-cell transplant and on Revlimid (knownto cause pancytopenia) likely primarily contributing to #1 - Stable with severe leukopenia of 1.3 and moderate thrombocytopenia of 129 present on admission. Check CBC daily to monitor trend. Finally, we will consult oncology to see thispatient on rounds in the a.m. with help appreciated in advance. 6. Essential hypertension - Hold scheduled antihypertensives until infections outlined in #1 and #2 have been neutralized. 7. Hyperlipidemia - Resume statin. 8. History of X; on Xarelto - Continue Xarelto as previous. 9. History of of skin cancer - Noted. 10. RLS - Stable. 11. History of RBBB - Noted. 12. OA - Give Tylenol prn. 13. DVT prophylaxis - Patient already on Xarelto for #8 which will be continued. Total time: Approximately 75 minutes. Charges/Coding Visit Charges Inpatient E&M: 40307 Init Hosp L3 02/01/24 0352 <Electronically signed by Eunice Corbett DO> Cosigner Signature (if applicable): CC: Dr. Eunice Corbett DO; Dr. Connie Lugo MD~ Signed [facility] Work Phone: 1(340) 228-404904-11-2024 Discharge summary Author Gabriel Howard [facility] February 01, 2024 12:10am Note Date/Time January 31, 2024 6:2 3pm [facility] Medical Records Department [address] [place] [address] Emergency Department Summary 01/31/24 MR#: [id number] Acct: [id number] Name: OSEAS JOSEPH Rep #:[id number] : 1950 73 From: Gabriel Singh PCP: Dr. Connie Lugo MD Status:ADM I N Location: [address] History of Present Illness Chief Complaint: Confusion Informant: patient and spouse/S.O. Onset/Context/Timing Onset: Days Context: Gradual Onset Timing: Continuous Quality: Confusion Location: Generalized Worsened by: Nothing Relieved by: Nothing Narrative Narrative: Patient presents with confusion that became worse today. Patient was seen here recently for confusion and was diagnosed with hypoglycemia. Patient's confusionimproved after receiving glucose. Patient followed up with his primary care physician today who noted that the patient was still more confused. statespatient has been percent dilute confused for the past couple days. states that waxes and wanes. states nothing makes it better nothing makes it worse. also reports that the patient had an episode of influenza A approximately 1 month ago. [facility] Medical History (Updated 01/31/24 @ 21:[address] Gabriel Howard DO) Diabetes mellitus High cholesterol History of echocardiogram History of skin cancer HTN (hypertension) Hypokalemia Multiple myeloma Non-smoker Open wound RBBB Restless legs Wears glasses Home Medications amlodipine 5 mg tablet 5 mg PO DAILY blood pressure 02/09/21 [History Last Taken 01/16/23] atorvastatin 10 mg tablet 10 mg PO DAILY cholesterol 02/09/21 [History Last Taken 01/16/23] losartan 50 mg tablet 50 mg PO DAILY BP 04/19/22 [History Last Taken 01/16/23] clonazepam 0.5 mg tablet 0.5 mg PO QHS anxiety 09/16/22 [History Last Taken 01/15/23] Velade See Rx Instructions .Route .COMPLEX CHEMO 01/16/23 [History Last Taken 01/11/23] acyclovir 400 mg tablet 400 mg PO BID anti viral 01/16/23 [History Last Taken 01/16/23 07:00] glimepiride 4 mg tablet 4 mg PO BID 01/27/24 [History Last Taken Unknown] lenalidomide 10 mg capsule (Revlimid) 10 mg PO DAILY 01/27/24 [History Last Taken Unknown] rivaroxaban 20 mg tablet (Xarelto) 20 mg PO QPM 01/27/24 [History Last Taken Unknown] Allergy/AdvReac Type Severity Reaction Status Date / Time No Known Allergies Allergy Verified 01/31/24 17:28 Family History Other Diabetes Hypertension Surgical History (Updated 01/31/24 @ 21:[address] Gabriel Howard DO) History of wisdom tooth extraction Hx of hernia repair (~1965) Hx of stem cell transplant Social History Smoking Status: Never smoker alcohol intake: current alcohol intake frequency: a few times a week Alcohol type: beer substance use type: does not use ROS ROS ED Constitutional Constitutional ED: Reports fever(s); Denies chills Eyes Eyes: Denies blurry vision or change in vision ENT ENT ED: Reports rhinorrhea; Denies sore throat Cardiovascular Cardiovascular: Denies chest pain or palpitations Respiratory/Chest Respiratory/Chest: Reports cough and dyspnea Gastrointestinal Gastrointestinal: Denies nausea or vomiting Genitourinary Genitourinary ED: Denies dysuria or hematuria Musculoskeletal Musculoskeletal: Denies back pain or neck pain Integumentary Denies abscess or rash Neurologic Neurologic: Denies headache(s) or weakness Allergic/Immunologic Allergic/Immunologic ED: Denies mouth swelling or urticaria EXAM Physical Exam Const Vital Signs: 01/31/24 17:26 01/31/24 17:28 01/31/24 19:00 Temperature 96.9 F L 96.9 F L 99.5 F H Temperature Source Temporal Temporal Oral Pulse Rate 58 L 59 L 62 Respiratory Rate 18 18 14 Blood Pressure 140/77 H 138/66 H 129/58 H Blood Pressure Mean 98 90 81 Pulse Ox 100 100 99 Oxygen Delivery Method Room Air Room Air Room Air 01/31/24 20:00 01/31/24 21:00 Temperature 97.8 F 97.8 F Temperature Source Temporal Temporal Pulse Rate 89 78 Respiratory Rate 16 16 Blood Pressure 150/57 H 147/78 H Blood Pressure Mean 88 101 Pulse Ox 99 98 Oxygen Delivery Method Room Air Room Air Positive well nourished and well developed General Appearance ED: well developed and NAD HEENT Reports moist mucous membranes Neck supple and no JVD Resp normal respiratory effort and clear to auscultation bilaterally Cardio regular rate and regular rhythm GI non-tender and non-distended Palpation: soft Neuro CN's II-XII intact bilaterally and no sensory deficits noted Neuro Narrative: Patient does answer questions appropriately. Sensorium / Orientation: alert Motor Exam: strength 5/5 throughout MDM MDM MDM Narrative Medical decision making narrative: Differential diagnosis includes flexion, sepsis, COVID-19, influenza, RSV, pneumonia, urinary tract infection, stroke, intracranial bleeding, cardiac dysrhythmia, and cardiac ischemia. CT scan of the brain will be obtained to assess for intracranial bleeding and stroke. Chest x-ray will be obtained to assess for pneumonia. EKG will be obtained to assess for cardiac dysrhythmia and cardiac ischemia. CBC will be obtained to assess for leukocytosis and anemia. Comprehensive metabolic profile will be obtained to assess for hepatic function, renal function, and electrolyte abnormality. Urinalysis will be obtained to assess for urinary tract infection and hematuria. PT with INR and PTT will be obtained to assess for coagulopathy. High-sensitivity troponin willbe obtained to assess for cardiac ischemia. Serum lactate will be obtained to assess for sepsis. COVID-19, influenza, and RSV PCR will be obtained to assess for viral illness. Lab Data Attestation: I reviewed the patient's lab results. Lab results narrative: Initial BGT was obtained and was 78. CBC was reviewed. White blood cell count was low at 1.3. Hemoglobin was 12.4 hematocrit was 36.7. Platelets were slightly low at 126. Absolute neutrophil count was 0.6. PT with INR and PTT were reviewed. Pro time was 25 and INR is 2.3. PTT was normal at 32.8. Comprehensive metabolic profile was reviewed and was essentially within normal limits. Glucose was elevated at 199. Serum lactate was reviewed and was slightly elevated at 2.2. High-sensitivity troponin was reviewed and was normalat 17. COVID-19 PCR was reviewed and was negative. Influenza PCR was reviewed and was positive for influenza A and negative for influenza B. RSV PCR was reviewed and was negative. Labs: Laboratory Results - last 24 hr 01/31/24 01/31/24 01/31/24 17:45 18:30 19:44 WBC 1.3 L* RBC 4.10 L Hgb 12.4 L Hct 36.7 L MCV 89.5 MCH 30.2 MCHC 33.8 RDW Std Deviation 45.5 H RDW Coeff of John 14.0 Plt Count 126 L MPV 11.3 Immature Gran % (Auto) 0.800 Neut % (Auto) 47.3 Lymph % (Auto) 30.7 Morton % (Auto) 15.7 H Eos % (Auto) 3.9 Baso % (Auto) 1.6 H Absolute Neuts (auto) 0.6 L Absolute Lymphs (auto) 0.39 L Nucleated RBC % 0 Differential Comment SCANNED Diff Path Review May foll PT 25.0 H INR 2.3 APTT 32.8 Sodium 138 Potassium 3.5 Chloride 109 H Carbon Dioxide 24.0 Anion Gap 5 BUN 17 Creatinine 1.27 Estim Creat Clear Calc 60.29 Est GFR (MDRD) Af Amer 72 Est GFR (MDRD) Non-Af 59 L BUN/Creatinine Ratio 13.4 Glucose 199 H Lactic Acid 2.2 H* Calcium 8.3 L Total Bilirubin 0.80 AST 17 ALT 25 Alkaline Phosphatase 46 Troponin I High Sens 17 Total Protein 6.7 Albumin 3.0 L Globulin 3.7 Albumin/Globulin Ratio 0.8 L Urine Color Urine Clarity Urine pH Ur Specific Gheens Urine Protein Urine Glucose (UA) Urine Ketones Urine Occult Blood Urine Nitrite Urine Bilirubin Urine Urobilinogen Ur Leukocyte Esterase Urine RBC Urine WBC Ur Squamous Epith Cells Urine Bacteria Urine Mucus POC Glucose 78 153 H 01/31/24 21:00 WBC RBC Hgb Hct MCV MCH MCHC RDW Std Deviation RDW Coeff of John Plt Count MPV Immature Gran % (Auto) Neut % (Auto) Lymph % (Auto) Morton % (Auto) Eos % (Auto) Baso % (Auto) Absolute Neuts (auto) Absolute Lymphs (auto) Nucleated RBC % Differential Comment Diff Path Review PT INR APTT Sodium Potassium Chloride Carbon Dioxide Anion Gap BUN Creatinine Estim Creat Clear Calc Est GFR (MDRD) Af Amer Est GFR (MDRD) Non-Af BUN/Creatinine Ratio Glucose Lactic Acid Calcium Total Bilirubin AST ALT Alkaline Phosphatase Troponin I High Sens Total Protein Albumin Globulin Albumin/Globulin Ratio Urine Color Yellow Urine Clarity Clear Urine pH 6.0 Ur Specific Gheens 1.015 Urine Protein 100 H Urine Glucose (UA) 250 H Urine Ketones 5 H Urine Occult Blood 25 H Urine Nitrite Negative Urine Bilirubin Negative Urine Urobilinogen Normal Ur Leukocyte Esterase Negative Urine RBC 0-5 SEEN Urine WBC 0 SEEN Ur Squamous Epith Cells 0 SEEN Urine Bacteria RARE Urine Mucus 1+ POC Glucose Radiography Chest X-Ray - ED: 1 View, Read by ED Physician and Read by Radiologist Diagnostic Testing: Clinical Impression(s) from Imaging Studies Brain CT 01/31/24 17:57 IMPRESSION: 1. Diffuse involutional change and mild chronic microvascular deep white matter disease. 2. No intracranial mass, hemorrhage or acute territorial infarct. 3. Bilateral maxillary and ethmoid sinus disease. Electronically Signed: Jair Stone MD at 19:30 EDT , Chest X-Ray 04/10/24 21:15 IMPRESSION: 1. No evidence of acute cardiopulmonary process Electronically Signed: Jair Stone MD at 21:36 EDT , CT scan of the brain was obtained. There is no acute intracranial abnormality. This was interpreted by the radiologist and was also independently reviewed by myself. EKG Initial EKG: Attestation: I personally reviewed and interpreted this EKG as follows: Interpretation: Sinus Rhythm (62), RBBB and Non-Specific ST Changes Comments: EKG was obtained. On my independent interpretation, it showed anormal sinus rhythm with a rate of 62. TN interval was within normal limits at 144 ms. QRS interval was slightly prolonged at 148 ms. QTc interval was withinnormal limits at 481 ms. [place] was borderline left axis deviation at -28. Thereare nonspecific ST- T wave changes. Prior EKG tracings: available for review Prior: Unchanged (11/27/2023) Management Discussion w/another healthcare provider: Hospitalist and Pulley Worker Treatment and Re-Evaluation :: Patient was given IV fluids. Since the patient is neutropenic. With an elevated lactate, patient was given a dose of Zosyn. Case was discussed with Dr. Mccain from oncology. He agrees with admission and covering the patient withZosyn. Case was discussed with the hospitalist. He will admit the patient to PCU. Patient and family understood and was agreeable with the plan. All questions were answered. Discharge Plan Triage Chief Complaint: Confusion ED Provider: Gabriel Howard Dx/Rx/DC Orders Clinical Impression: Confusion, Hx of multiple myeloma, Acidosis, lactic, Neutropenia, Influenza A, Pancytopenia Prescriptions: No Action atorvastatin 10 mg tablet 10 mg PO DAILY amlodipine 5 mg tablet 5 mg PO DAILY losartan 50 mg tablet 50 mg PO DAILY clonazepam 0.5 mg tablet 0.5 mg PO QHS acyclovir 400 mg tablet 400 mg PO BID Velade See Rx Instructions .ROUTE .COMPLEX Rx Instructions: GETS IV WEEKLY AT DR MCCAIN'S OFFICE glimepiride 4 mg tablet 4 mg PO BID lenalidomide [Revlimid] 10 mg capsule 10 mg PO DAILY Xarelto 20 mg tablet 20 mg PO QPM Primary Care Provider: Connie Lugo Referrals: Connie Lugo MD [Primary Care Provider] - Disposition Disposition: Acute Care Hospital [facility] What to do if you have Problems For any increased pain, shortness of breath, bleeding, nausea or vomiting, chestpain, or any unexpected problems, contact your Primary Care Provider. Call [facility] ([phone]) or report to the closest Emergency Room. Call 911 if necessary. 02/01/24 0010 <Electronically signed by Gabriel Howard DO> Cosigner Signature (if applicable): CC: Dr. Connie Lugo MD ~ Signed [facility] Work Phone: [phone]) 862-741804-10-2024 Discharge summary Author Gabriel Howard [facility] February 01, 2024 12:10am Note Date/Time January 31, 2024 6:2 3pm [facility] Medical Records Department [address] [place] [address] Emergency Department Summary 01/31/24 MR#: [id number] Acct: [id number] Name: OSEAS JOSEPH Rep #:[id number] : 1950 73 From: Gabriel Singh PCP: Dr. Connie Lugo MD Status:ADM I N Location: [address] History of Present Illness Chief Complaint: Confusion Informant: patient and spouse/S.O. Onset/Context/Timing Onset: Days Context: Gradual Onset Timing: Continuous Quality: Confusion Location: Generalized Worsened by: Nothing Relieved by: Nothing Narrative Narrative: Patient presents with confusion that became worse today. Patient was seen here recently for confusion and was diagnosed with hypoglycemia. Patient's confusionimproved after receiving glucose. Patient followed up with his primary care physician today who noted that the patient was still more confused. statespatient has been percent dilute confused for the past couple days. states that waxes and wanes. states nothing makes it better nothing makes it worse. also reports that the patient had an episode of influenza A approximately 1 month ago. [facility] Medical History (Updated 01/31/24 @ 21:[address] Gabriel Howard DO) Diabetes mellitus High cholesterol History of echocardiogram History of skin cancer HTN (hypertension) Hypokalemia Multiple myeloma Non-smoker Open wound RBBB Restless legs Wears glasses Home Medications amlodipine 5 mg tablet 5 mg PO DAILY blood pressure 02/09/21 [History Last Taken 01/16/23] atorvastatin 10 mg tablet 10 mg PO DAILY cholesterol 02/09/21 [History Last Taken 01/16/23] losartan 50 mg tablet 50 mg PO DAILY BP 04/19/22 [History Last Taken 01/16/23] clonazepam 0.5 mg tablet 0.5 mg PO QHS anxiety 09/16/22 [History Last Taken 01/15/23] Velade See Rx Instructions .Route .COMPLEX CHEMO 01/16/23 [History Last Taken 01/11/23] acyclovir 400 mg tablet 400 mg PO BID anti viral 01/16/23 [History Last Taken 01/16/23 07:00] glimepiride 4 mg tablet 4 mg PO BID 01/27/24 [History Last Taken Unknown] lenalidomide 10 mg capsule (Revlimid) 10 mg PO DAILY 01/27/24 [History Last Taken Unknown] rivaroxaban 20 mg tablet (Xarelto) 20 mg PO QPM 01/27/24 [History Last Taken Unknown] Allergy/AdvReac Type Severity Reaction Status Date / Time No Known Allergies Allergy Verified 01/31/24 17:28 Family History Other Diabetes Hypertension Surgical History (Updated 01/31/24 @ 21:[address] Gabriel Howard DO) History of wisdom tooth extraction Hx of hernia repair (~1965) Hx of stem cell transplant Social History Smoking Status: Never smoker alcohol intake: current alcohol intake frequency: a few times a week Alcohol type: beer substance use type: does not use ROS ROS ED Constitutional Constitutional ED: Reports fever(s); Denies chills Eyes Eyes: Denies blurry vision or change in vision ENT ENT ED: Reports rhinorrhea; Denies sore throat Cardiovascular Cardiovascular: Denies chest pain or palpitations Respiratory/Chest Respiratory/Chest: Reports cough and dyspnea Gastrointestinal Gastrointestinal: Denies nausea or vomiting Genitourinary Genitourinary ED: Denies dysuria or hematuria Musculoskeletal Musculoskeletal: Denies back pain or neck pain Integumentary Denies abscess or rash Neurologic Neurologic: Denies headache(s) or weakness Allergic/Immunologic Allergic/Immunologic ED: Denies mouth swelling or urticaria EXAM Physical Exam Const Vital Signs: 01/31/24 17:26 01/31/24 17:28 01/31/24 19:00 Temperature 96.9 F L 96.9 F L 99.5 F H Temperature Source Temporal Temporal Oral Pulse Rate 58 L 59 L 62 Respiratory Rate 18 18 14 Blood Pressure 140/77 H 138/66 H 129/58 H Blood Pressure Mean 98 90 81 Pulse Ox 100 100 99 Oxygen Delivery Method Room Air Room Air Room Air 01/31/24 20:00 01/31/24 21:00 Temperature 97.8 F 97.8 F Temperature Source Temporal Temporal Pulse Rate 89 78 Respiratory Rate 16 16 Blood Pressure 150/57 H 147/78 H Blood Pressure Mean 88 101 Pulse Ox 99 98 Oxygen Delivery Method Room Air Room Air Positive well nourished and well developed General Appearance ED: well developed and NAD HEENT Reports moist mucous membranes Neck supple and no JVD Resp normal respiratory effort and clear to auscultation bilaterally Cardio regular rate and regular rhythm GI non-tender and non-distended Palpation: soft Neuro CN's II-XII intact bilaterally and no sensory deficits noted Neuro Narrative: Patient does answer questions appropriately. Sensorium / Orientation: alert Motor Exam: strength 5/5 throughout MDM MDM MDM Narrative Medical decision making narrative: Differential diagnosis includes flexion, sepsis, COVID-19, influenza, RSV, pneumonia, urinary tract infection, stroke, intracranial bleeding, cardiac dysrhythmia, and cardiac ischemia. CT scan of the brain will be obtained to assess for intracranial bleeding and stroke. Chest x-ray will be obtained to assess for pneumonia. EKG will be obtained to assess for cardiac dysrhythmia and cardiac ischemia. CBC will be obtained to assess for leukocytosis and anemia. Comprehensive metabolic profile will be obtained to assess for hepatic function, renal function, and electrolyte abnormality. Urinalysis will be obtained to assess for urinary tract infection and hematuria. PT with INR and PTT will be obtained to assess for coagulopathy. High-sensitivity troponin willbe obtained to assess for cardiac ischemia. Serum lactate will be obtained to assess for sepsis. COVID-19, influenza, and RSV PCR will be obtained to assess for viral illness. Lab Data Attestation: I reviewed the patient's lab results. Lab results narrative: Initial BGT was obtained and was 78. CBC was reviewed. White blood cell count was low at 1.3. Hemoglobin was 12.4 hematocrit was 36.7. Platelets were slightly low at 126. Absolute neutrophil count was 0.6. PT with INR and PTT were reviewed. Pro time was 25 and INR is 2.3. PTT was normal at 32.8. Comprehensive metabolic profile was reviewed and was essentially within normal limits. Glucose was elevated at 199. Serum lactate was reviewed and was slightly elevated at 2.2. High-sensitivity troponin was reviewed and was normalat 17. COVID-19 PCR was reviewed and was negative. Influenza PCR was reviewed and was positive for influenza A and negative for influenza B. RSV PCR was reviewed and was negative. Labs: Laboratory Results - last 24 hr 01/31/24 01/31/24 01/31/24 17:45 18:30 19:44 WBC 1.3 L* RBC 4.10 L Hgb 12.4 L Hct 36.7 L MCV 89.5 MCH 30.2 MCHC 33.8 RDW Std Deviation 45.5 H RDW Coeff of John 14.0 Plt Count 126 L MPV 11.3 Immature Gran % (Auto) 0.800 Neut % (Auto) 47.3 Lymph % (Auto) 30.7 Morton % (Auto) 15.7 H Eos % (Auto) 3.9 Baso % (Auto) 1.6 H Absolute Neuts (auto) 0.6 L Absolute Lymphs (auto) 0.39 L Nucleated RBC % 0 Differential Comment SCANNED Diff Path Review May foll PT 25.0 H INR 2.3 APTT 32.8 Sodium 138 Potassium 3.5 Chloride 109 H Carbon Dioxide 24.0 Anion Gap 5 BUN 17 Creatinine 1.27 Estim Creat Clear Calc 60.29 Est GFR (MDRD) Af Amer 72 Est GFR (MDRD) Non-Af 59 L BUN/Creatinine Ratio 13.4 Glucose 199 H Lactic Acid 2.2 H* Calcium 8.3 L Total Bilirubin 0.80 AST 17 ALT 25 Alkaline Phosphatase 46 Troponin I High Sens 17 Total Protein 6.7 Albumin 3.0 L Globulin 3.7 Albumin/Globulin Ratio 0.8 L Urine Color Urine Clarity Urine pH Ur Specific Gheens Urine Protein Urine Glucose (UA) Urine Ketones Urine Occult Blood Urine Nitrite Urine Bilirubin Urine Urobilinogen Ur Leukocyte Esterase Urine RBC Urine WBC Ur Squamous Epith Cells Urine Bacteria Urine Mucus POC Glucose 78 153 H 01/31/24 21:00 WBC RBC Hgb Hct MCV MCH MCHC RDW Std Deviation RDW Coeff of John Plt Count MPV Immature Gran % (Auto) Neut % (Auto) Lymph % (Auto) Morton % (Auto) Eos % (Auto) Baso % (Auto) Absolute Neuts (auto) Absolute Lymphs (auto) Nucleated RBC % Differential Comment Diff Path Review PT INR APTT Sodium Potassium Chloride Carbon Dioxide Anion Gap BUN Creatinine Estim Creat Clear Calc Est GFR (MDRD) Af Amer Est GFR (MDRD) Non-Af BUN/Creatinine Ratio Glucose Lactic Acid Calcium Total Bilirubin AST ALT Alkaline Phosphatase Troponin I High Sens Total Protein Albumin Globulin Albumin/Globulin Ratio Urine Color Yellow Urine Clarity Clear Urine pH 6.0 Ur Specific Ghe[place] 1.015 Urine Protein 100 H Urine Glucose (UA) 250 H Urine Ketones 5 H Urine Occult Blood 25 H Urine Nitrite Negative Urine Bilirubin Negative Urine Urobilinogen Normal Ur Leukocyte Esterase Negative Urine RBC 0-5 SEEN Urine WBC 0 SEEN Ur Squamous Epith Cells 0 SEEN Urine Bacteria RARE Urine Mucus 1+ POC Glucose Radiography Chest X-Ray - ED: 1 View, Read by ED Physician and Read by Radiologist Diagnostic Testing: Clinical Impression(s) from Imaging Studies Brain CT 01/31/24 17:57 IMPRESSION: 1. Diffuse involutional change and mild chronic microvascular deep white matter disease. 2. No intracranial mass, hemorrhage or acute territorial infarct. 3. Bilateral maxillary and ethmoid sinus disease. Electronically Signed: Jair Stone MD at 19:30 EDT , Chest X-Ray 01/31/24 21:15 IMPRESSION: 1. No evidence of acute cardiopulmonary process Electronically Signed: Jair Stone MD at 21:36 EDT , CT scan of the brain was obtained. There is no acute intracranial abnormality. This was interpreted by the radiologist and was also independently reviewed by myself. EKG Initial EKG: Attestation: I personally reviewed and interpreted this EKG as follows: Interpretation: Sinus Rhythm (62), RBBB and Non-Specific ST Changes Comments: EKG was obtained. On my independent interpretation, it showed anormal sinus rhythm with a rate of 62. TN interval was within normal limits at 144 ms. QRS interval was slightly prolonged at 148 ms. QTc interval was withinnormal limits at 481 ms. [place] was borderline left axis deviation at -28. Thereare nonspecific ST- T wave changes. Prior EKG tracings: available for review Prior: Unchanged (11/27/2023) Management Discussion w/another healthcare provider: Hospitalist and Pulley Worker Treatment and Re-Evaluation :: Patient was given IV fluids. Since the patient is neutropenic. With an elevated lactate, patient was given a dose of Zosyn. Case was discussed with Dr. Mccain from oncology. He agrees with admission and covering the patient withZosyn. Case was discussed with the hospitalist. He will admit the patient to PCU. Patient and family understood and was agreeable with the plan. All questions were answered. Discharge Plan Triage Chief Complaint: Confusion ED Provider: Gabriel Howard Dx/Rx/DC Orders Clinical Impression: Confusion, Hx of multiple myeloma, Acidosis, lactic, Neutropenia, Influenza A, Pancytopenia Prescriptions: No Action atorvastatin 10 mg tablet 10 mg PO DAILY amlodipine 5 mg tablet 5 mg PO DAILY losartan 50 mg tablet 50 mg PO DAILY clonazepam 0.5 mg tablet 0.5 mg PO QHS acyclovir 400 mg tablet 400 mg PO BID Velade See Rx Instructions .ROUTE .COMPLEX Rx Instructions: GETS IV WEEKLY AT DR MCCAIN'S OFFICE glimepiride 4 mg tablet 4 mg PO BID lenalidomide [Revlimid] 10 mg capsule 10 mg PO DAILY Xarelto 20 mg tablet 20 mg PO QPM Primary Care Provider: Connie Lugo Referrals: Connie Lugo MD [Primary Care Provider] - Disposition Disposition: Acute Care Hospital [facility] What to do if you have Problems For any increased pain, shortness of breath, bleeding, nausea or vomiting, chestpain, or any unexpected problems, contact your Primary Care Provider. Call [facility] ([phone]) or report to the closest Emergency Room. Call 911 if necessary. 02/01/24 0010 <Electronically signed by Gabriel Schwiger DO> Cosigner Signature (if applicable): CC: Dr. Connie Lugo MD ~ Signed [facility] Work Phone: [phone] 458-699203-25-2024 Miscellaneous Notes* Telephone Encounter - Luiz Aguliar - 01/15/2024 9:52 AM EDT Spoke with Patient's on 01/15/2024 in regards to getting scheduled for their EMG appointment. Patient indicated that they are taking the medication Xarelto. Instructed that this medication is to be held for 24 hours prior to testing. Patient is to reach out to prescribing physician to ensure that it is safe to hold prior to testing. Patient's expressed understanding with these instructions. [facility] History of Present illness Narrative* Temo Gill RN - 01/11/2024 10:16 AM EDT IRB # [id number], [facility]# SWOG [id number] study entitled Phase III Study of Daratumumab/rHuPH20 (NSC- [id number]) + Lenalidomide or Lenalidomide as Post- Autologous Stem Cell Transplant Maintenance Therapy in Patients with Multiple Myeloma (MM) Using Minimal Residual Disease to Direct Therapy Duration (DRAMMATIC Study). Pt ID: [id number] Consented: 01/03/2023 Observational Consent IC Signed for Treatment Step 2: 07/22/2023 Randomized: 08/18/2023 Treatment Arm: TAC- 1 Lenalidomide C1D1:08/24/2023 Patient was here January 11, 2024 for C6D1. Patient overall feels he is doing well - some aches in his thighs still - describes similarly to last cycle. Patient to saw neurology and they are doing and EMG for pain in thigh and back. Patients expressed concern for some memory issues, but Masci believes it to be related to hearing and the patient is going to see ENT for hearing aid consult. Treatment Plan: Treatment Previous Cycle Cycle Current Start Date Frequency End date Lenalidomide Cycle 1 Day 1 08/24/2023 Cycle 5 12/14/2023-01/10/2024 100% Compliant Cycle 6 01/11/2024-02/07/2024 10/19/2023 Daily, Cycle every 28 days Clinical Trial Specific Testing Test Dates Completed Due Date Bone Marrow Biopsy CTD 07/24/2023 Baseline Step 2 [x] 07/24/2024 12 months post Step 2 [] 07/24/2025 24 months post Step 2 [] 07/24/2026 36 months post Step 2 [] 07/24/2027 48 months post Step 2 [] QOLs PRO-CTCAE 08/17/2023 (Baseline) [x] 08/24/2023 (Cycle 1) [x] 09/21/2023 (Cycle 2) [x] 10/19/2023 (Cycle 3) [x] 11/16/2023 (Cycle 4) [x] 12/14/2023 (Cycle 5) [x] 01/11/2024 (Cycle 6) [x] 02/08/2024 (Cycle 7) [] Day 1 of every cycle Baseline Weight (08/24/2023 date) 80.7 kg kg Current Weight 86.4 kg (+6.5%) Creatinine Clearance 68.8 ml/min ECOG per ECOG- 0 01/11/24 09:15 Weight 86.4 kg (190 lb 8 oz) BSA 0 BMI 0 Temp 37 C (98.6 F) Resp 16 Pulse 65 BP 127/67 SpO2 100 % Bone Marrow - Plasma Cell % Free Light Chains M Protein Date Size (mm) Date [place] Lambda * IGG Date Serum Urine Diagnosis 08/24/2022 20% Diagnosis 10/26/2022 11.7 43.5 Diagnosis 10/26/2022 1.12 M protein present Baseline 07/30/2023 Less than 5%* Baseline 08/07/2023 4.7 2.5 Enrollment 07/31/2023 Cycle 1 0.22 0.00 08/24/2023 Cycle 1 4.1* 2.4* 08/24/2023 Cycle 1 0.28 0.00 09/21/2023 Cycle 2 11.7 8.7 09/21/2023 Cycle 2 0.17 0.01 10/19/2023 Cycle 3 15.5 10.5 10/19/2023 Cycle 3 0.16 0.01 11/16/2023 Cycle 4 17.4 21.4 11/16/2023 Cycle 4 0.20 0.00 12/14/2023 Cycle 5 19.4 23.1 12/14/2023 Cycle 5 0.00* 0.00 01/11/2024 Cycle 6 25.8 19.4 01/11/2024 Cycle 6 0.15 0.00 Lowest/Jacque = * Drug Accountability/Education - Completed on 01/11/2024. Patient given Cycle 6 diary. Patient did return cycle 5 - reviewed edits with patient. Use of the study medication diary and dosing instructions were reviewed with the patient. Patient verbalizes understanding of dosing of Revlimid: Capsules should be taken whole, with water, once daily (patient takes at HS). If a dose is missed, and it has been less than 12 hours since the preceding dose, the patient should take lenalidomide as soon as the patient remembers. If it has been more than 12 hours, the patient should skip the missed dose. Patient took 28/28 pills for the cycle - determining 100% compliance Patient receives drug from a private pharmacy - but switching due to funding - delayed, but patientheld for a week due to labs. Lenalidomide Education and Counseling completed. Patient counseled on potential exposure to lenalidomide by , engage in abstinence or use a condom when engaging in sexual contact with WOCBP, notify study doctor if female partner becomes , never share drug with anyone else, notto donate blood, semen, or sperm while taking drug and for 28 days after. Concomitant medications reviewed per protocol: Yes Patient reported changes to medication list: No changes since last visit. Current medications: Current use of anticoagulants: YES (see medications below if applicable) Anticoagulants: Eliquis 5 mg Current use of herbal preparations or medications: No Prophylactic shingles medication: Acyclovir 400 mg Current Outpatient Medications Medication Sig Start/Stop Use acyclovir (ZOVIRAX) 400 mg tablet Take 1 tablet by mouth twice daily. 05/01/2023 Prophylactic shingles ondansetron (ZOFRAN) 8 mg tablet Take 1 tablet by mouth every 8 hours as needed for nausea/vomiting. 10/26/2022 PRN Nausea clonazePAM (KLONOPIN) 0.5 mg tablet Take 0.5 mg by mouth once daily. 07/29/2023 Anxiety glimepiride (AMARYL) 4 mg tablet Take 2 capsules by mouth in AM & 1 capsule in PM. >5 years Type 2 amLODIPine (NORVASC) 5 mg tablet Take 5 mg by mouth once daily. 02/10/2021 Hypertension atorvastatin (LIPITOR) 10 mg tablet Take 10 mg by mouth once daily. 02/10/2021 Cholesterol losartan (COZAAR) 50 mg tablet Take 50 mg by mouth once daily. 02/10/2021 Hypertension Loperamide (Imodium Oral) Take 2 tablet by mouth as needed >5 years Diarrhea Sildenafil (Viagra) 50 mg tablet Take 50 mg by mouth as needed. >10 years ED Eliquis 5 mg tablet Take 1 tablet by mouth twice daily 03/23/2023 Preventative - blood thinner Melatonin 5 mg Take 1 tablet at bedtime 03/23/2023 Insomnia Revlimid 10 mg Take 1 capsule daily in the morning 08/24/2023 MM treatment Linzess 72 mcg Take 1 capsule for constipation symptoms once a day as needed for constipation 12/31/2023 Constipation No current facility-administered medications for this visit. Medical History: PAST MEDICAL HISTORY Diagnosis Date Arthritis Treated with medication Chronic diarrhea Resolved and now constipation Diabetes mellitus (HCC) Treated with medication Essential hypertension Treated with medication Mixed hyperlipidemia Treated with medication PAST MEDICAL HISTORY Diagnosis Date Arthritis Treated with medication Chronic diarrhea Resolved Malignant melanoma (HCC) On back removed - precancerous and 06/2022 non cancerous Mixed hyperlipidemia Treated with medication Multiple myeloma not having achieved remission (HCC) Treated with medication Primary hypertension Treated with medication Pulmonary embolism (HCC) Treated with medication Right bundle branch block Treated with medication Type 2 diabetes mellitus, without long-term current use of insulin (HCC) Treated with medication Surgical History: PAST SURGICAL HISTORY Procedure Laterality Date REPAIR INCISIONAL HERNIA,REDUCIBLE Resolved 8th grade SKIN BX, 1 LESION 06/2022 non cancerous Baseline Toxicities per CTCAE v. 5: All predate therapy, are chronic conditions and will not be actively followed unless they worsen during the clinical trial. Hyperglycemia; Grade 1: Start Date: >5 years PRIOR TO STUDY Drugs to Treat: Glimepiride Action Required: None Outcome: Ongoing. (Chronic) Diarrhea; Grade 1: Start Date: >5 years PRIOR TO STUDY Drugs to Treat: Imodium Action Required: None Outcome: Ongoing. Anemia; Grade 1: Start Date: Intermittent PRIOR TO STUDY 07/24/2023 RESOLVED: 08/24/2023 but Grade 1again 09/21/2023 Drugs to Treat: None. Action Required: None Outcome: Ongoing Aspartate aminotransferase decreased; Grade 1: Start Date: Intermittent PRIOR TO STUDY 07/24/2023 STOPPED:11/16/2023 Started again:01/11/2024 Drugs to Treat: None. Action Required: None Outcome: Ongoing Alanine aminotransferase decreased; Grade 1: Start Date: Intermittent PRIOR TO STUDY 07/24/2023 STOPPED:11/16/2023 Drugs to Treat: None. Action Required: None Outcome: RESOLVED Insomnia; Grade 1: Start Date: Intermittent PRIOR TO STUDY 07/21/2023 Drugs to Treat: None. Action Required: None Outcome: Ongoing. Weight Loss; Grade 1: 3.5 Percent Increase since - Intentional Start Date: Intentional Loss - PRIORTO STUDY 07/21/2023 RESOLVED:11/16/2023 Drugs to Treat: None. Action Required: None Outcome: RESOLVED Hypophosphatemia:Start Date: PRIOR TO STUDY 07/24/2023 STOPPED:08/24/2023 Drugs to Treat: None. Action Required: None Outcome: RESOLVED Toxicities per CTCAE v. 5: White Blood Cell Count Decreased; Grade 1: Related to Revlimid and Vaccines Start Date: 09/21/2023 RESOLVED: 09/28/2023 RESTARTED: 11/16/2023 Decreased: 01/11/2024 Drugs to Treat: None. Action Required: None Outcome: ONGOING Platelet Count Decreased; Grade 1: Start Date: 09/21/2023 Drugs to Treat: None. Action Required: None Outcome: Ongoing Bone Pain: Grade 2; Bilateral Thigh: Unlikely related to Revlimid Start Date: PRIOR TO STUDY 08/24/2023 INCREASED 10/19/2023 Drugs to Treat: None. Action Required: XRAY THIGH AND REFERRAL TO NEUROLOGIST Outcome: Ongoing. Neutrophil Count Decreased; Grade 1: Possibly Related to Revlimid and Vaccines Start Date: 12/14/2023 Decreased: 01/11/2024 Drugs to Treat: None. Action Required: None Outcome: ONGOING Lymphocyte Count Decreased; Grade 2: Start Date: Intermittent PRIOR TO STUDY- Possibly related to Revlimid and Vaccines Increased:12/14/2021 RESOLVED: 01/11/2024 Drugs to Treat: None. Action Required:None Outcome: RESOLVED Patient turned in a 24 hour urine: Yes Patient knows to RTC 02/08/2024 for Cycle 7. Patient knows to call in the interim for any questions or concerns. Patient has contact information for Uma Gill Research Nurse and Dr. Mccain, along with the office number. Patient meets all Criteria for Study Participation: Yes REID Bynum, RN Clinical Research Nurse [phone] [facility] History of Present illness Narrative* Connie Mccain, - 01/11/2024 9:25 AM EDT Oncologic problem(s): 1) IgG lambda multiple myeloma. HPI: The patient is a 73-year-old male with a past medical history significant for type 2 diabetes,high cholesterol, hypertension and right bundle branch block. Patient originally presented to the emergency room at [facility] on 04/19/2022 with new onset of confusion that day which had been worsening. Laboratory work-up significant for hypokalemia. CT of the brain was unremarkable. He was admitted. During hospitalization it was noted that hehad been having diarrhea for 6 to 8 weeks. Stool studies were positive for Campylobacter, blood andlactoferrin. C. difficile was negative. CT of the abdomen pelvis on 04/21/2022 noted abnormal pericholecystic edema without gallstones. Renal cysts and colonic diverticulosis were noted. He was found to have elevation of sed rate to 39, CRP 134. His albumin was 2.3. IgA low at 37. He was discharged on azithromycin, potassium and magnesium supplement. He was seen in the outpatient setting for follow-up visit on 07/11/2022. He continued to have one episode of explosive diarrhea daily. This had been going on for about 8 months. CBC on 07/11 showed a white count of 6400. Differential was normal. Hemoglobin 14.9 g/dL. Platelet count 275,000. Chemistries significant for creatinine of 1.29 g/dL. Previously 1.13 g/dL on 04/27/2022.Calcium was 9.3 mg/dL. Total bilirubin, AST, ALT and alkaline phosphatase were normal. LDH was 181.C-reactive protein was less than 2.09. Total protein was 8.8 g/dL. Total IgG was 2462 mg/dL. IgA decreased to 28 mg/dL. IgM normal at 32 mg/dL. On protein electrophoresis, patient was found to have 2M spikes both IgG lambda by immunofixation. For spike was quantitated at 1.2 g/dL and the second was quantitated at 0.6 g/dL. Cytoplasmic and perinuclear ANCA both negative. Atypical p-ANCA negative. Patient described diarrhea as loose, eran stools sometimes explosive typically one bowel movement per day however. He had not observed any blood. Had a colonoscopy [address] Arteaga. His appetite was normal. He had not lost weight. Denied reflux and nausea. He did get abdominal bloating associated with the diarrhea. He denied musculoskeletal pain. He denied symptoms of sensory neuropathy. He sees an team supervisor once a year for dilated exam. He has not been told he has retinopathy. Recent removal of early melanoma back. Blue nevus right ankle--required WLE--scheduled. PMR--about 15 years ago. Patient underwent colonoscopy on 09/21/2022. Preparation of the colon was fair. -One 6 mm polyp at the ileocecal valve, removed with a hot snare. Resected and retrieved. -One 5 mm polyp in the ascending colon, removed with a hot snare. Resected and retrieved. -Congested mucosa in the descending colon, at the splenic flexure, in the ascending colon and in the cecum. Biopsied. -Diverticulosis in the recto-sigmoid colon, in the sigmoid colon and in the descending colon. -Stool in the rectum, in the sigmoid colon, in the descending colon and at the hepatic flexure. Fluid aspiration performed. -The examined portion of the ileum was normal. Biopsied. Pathology: A. Ileocecal valve polyp, biopsy: -Consistent with fibrolipomatous polyp. -See comment. B. Small bowel, biopsy: -No pathologic change. C. Cecum, biopsy: -Mild melanosis coli. D. Colon, random biopsy: -Mild melanosis coli. E. Ascending colon polyp, biopsy: -Fragments of tubular adenoma. B, C, D & E - No congophilic material identified. Congo red stain with matched control is negative. ADDENDUM C & D. No congophilic material is noted in these biopsies on light and polarized microscopy. Congo Red stain with matched control was used in the evaluation of this case. He was diagnosed with pancreatic insufficiency and was to start pancreatic enzyme replacement. Patient had a venous duplex ultrasound on 12/16/2022 for right leg pain. That study demonstrated no evidence of DVT in the right leg. He developed chest pain and increasing shortness of breath. Went to the ED on 01/16/2023. PE protocol chest CT demonstrated multiple bilateral pulmonary emboli involving the distal portion of both theright and left main pulmonary arteries as well as branches of the upper and lower lobe pulmonary arteries, more prominent on the right side. Platelet count was 67,000. Patient was admitted and placedon unfractionated heparin with bolus. The next morning platelet count was 62,000. He was rotated toapixaban and discharged. Echocardiogram performed 01/17/2023 demonstrated normal LV size. There was moderate concentric LVH. Left ventricular systolic function was normal with an estimated ejection fraction at 60%. There was stage I diastolic dysfunction. The pulmonary artery systolic pressure was 58 mmHg. The global longitudinal strain was -11.5% (abnormal). The global longitudinal strain was moderately abnormal. (Previous echocardiogram 04/20/2022 demonstrated right ventricular systolic pressure estimated at 22 mmHg. Diastolic function was indeterminate. Right ventricular strain was not determined). His chest pain has improved. He is still short of breath with heavier exertion and sometimes walking from room to room he finds himself breathing heavier. He has been taking apixaban 10 mg twice daily. No bleeding issues. Previous therapy: 1) RVd. Cycle #1 began 11/09/2022. 2) Zometa. 3) ASCT. Transplant Summary: BMT Information ASCR infused on 06/02/2023 Planned Proposed Protocols: IP BMT AUTO MELPHALAN 200 Planned Preparative Regimen Drug: Melphalan Planned Mobilization Agent: G-CSF, Plerixafor Planned Stem Cell Source: Peripheral blood stem cells BMT Transplant Details # of cells: 6.16 Presents for ongoing oncologic management. Interim history: Saw neurology. 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 Scheduled for EMG 01/16. No subjective change in that symptom. He is having some fatigue but not interfering with ADLs or IADLs. He has noticed a little trouble with memory and cites an example of not remembering parts of moviesthat he is watched the night before. However on further discussion it became evident that he has high-frequency hearing loss. PMH, medications and allergies personally reviewed by me today. Any changes documented in appropriate section. ROS: Constitutional: Denies episodes of fever and night sweats. Neuro: Denies HAMILTON, vertigo, dizziness and imbalance. HEENT: No recent change in voice, vision. Resp: Denies cough, wheeze and hemoptysis. Denies shortness of breath at rest. Denies MACE. CVS: Denies exertional chest pain, PND, orthopnea and LE edema. GI: See HPI. : Denies dysuria or gross hematuria. Endo: Denies hot flashes. Denies polyuria and polydipsia. Denies heat and cold intolerance. Musculoskeletal: See HPI. Derm: Denies rash. Denies jaundice and diffuse pruritis. Heme: Denies unusual bleeding and unexplained bruising. Psych: Normal mood. PHYSICAL EXAM: Vitals: Blood pressure 127/67, pulse 65, temperature 37 C (98.6 F), weight 86.4 kg (190 lb 8 oz), SpO2 100%. Well-appearing and in no acute distress. EYES: Sclerae are anicteric bilaterally. LYMPHATIC: There is no palpable cervical or supraclavicular adenopathy. RESPIRATORY: Inspiratory breath sounds are of normal intensity in all rashid. No rales, wheezes or rhonchi. CARDIOVASCULAR: Rhythm is regular. ABDOMEN: The abdomen is nondistended. Extremities: No swelling or edema. SKIN: No jaundice. NEUROLOGIC: human resource intern II-XII are grossly intact. Diminished hip flexor strength right leg. Patellar DTRs remain slightly diminished, but symmetric. MS: No tenderness or mass of the right quadriceps muscle. LABS: Latest Ref Rng 01/11/2024 WBC 3.70 - 11.00 k/uL 3.00 (L) RBC 4.20 - 6.00 m/uL 4.24 Hemoglobin 13.0 - 17.0 g/dL 12.9 (L) Hematocrit 39.0 - 51.0 % 39.2 MCV 80.0 - 100.0 fL 92.5 MCH 26.0 - 34.0 pg 30.4 MCHC 30.5 - 36.0 g/dL 32.9 RDW-CV 11.5 - 15.0 % 15.4 (H) Platelet Count 150 - 400 k/uL 113 (L) MPV 9.0 - 12.7 fL 11.4 Neut% % 44.1 Abs Neut (ANC) 1.45 - 7.50 k/uL 1.32 (L) Lymph% % 34.3 Abs Lymph 1.00 - 4.00 k/uL 1.03 Morton% % 9.0 Abs Morton <0.87 k/uL 0.27 Eosin% % 10.3 Abs Eosin <0.46 k/uL 0.31 Baso% % 2.0 Abs Baso <0.11 k/uL 0.06 Immature Gran % % 0.3 IMMATURE GRANS (ABS) <0.10 k/uL <0.03 NRBC /100 WBC 0.0 Absolute nRBC <0.01 k/uL <0.01 DTYPE Auto ASSESSMENT/PLAN: (C90.00) Multiple myeloma not having achieved remission (HCC) (primary encounter diagnosis) Assessment: -The patient is a 73-year-old male has a past medical history significant for diabetes and chronic diarrhea that was characterized by one explosive watery stool daily (was diagnosed with pancreatic insufficiency). Was hospitalized 03/2022 when diarrhea significantly worsened and he was diagnosed with and treated for Campylobacter infection. During that evaluation, was found to have two IgG lambda monoclonal antibodies. He did not have hypercalcemia or anemia but had elevated serum creatinine (which may be related to volume depletion when hospitalized for diarrhea and mental status change). 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 Low to intermediate risk disease (PCs 20%). -Imaging--no lytic lesions on whole body CT; Liver cyst and splenic nodule (6-12 month f/u MRI recommended). -Bone marrow negative for amyoid. -Colonic biopsies negative for amyloid. -Subsequent MRI of spine and pelvis revealed two T2 hyperintense foci in the pelvis, one in the left sacral rebeka and one in the right ischium. -FISH panel revealed (11;14) (q13;q32) (IGH/CCND1) translocation consistent with the presence of a plasma cell neoplasm associated with standard risk disease. -R-ISS stage I (serum beta microglobulin less than 3.5 mg/L and serum albumin greater than 3.5 g/dL; standard risk disease by FISH testing as outlined above and serum LDH less than upper limit of normal). -PS ECOG 0. -VGPR as of 11/2023 (Serum and urine monoclonal protein detected only by immunofixation). -Reviewed CBC. Very mild asymptomatic anemia. Mild thrombocytopenia with no bleeding issue. Mild neutropenia no infectious complications and counts allow continued therapy. -Mild memory impairment likely a consequence of fatigue and hearing loss and not a neurologic issue. He is going to make an appointment with an gelatin powder mixer. Plan: -Continue lenalidomide 10 mg daily continuous dosing schedule. -Monthly Zometa (will receive dose today). -CBC, chemistries and serum protein electrophoresis and immunofixation as well as 24-hour urine collection for electrophoresis and immunofixation monthly per protocol. Supportive care: ID: Plan: -Received posttransplant vaccinations. Heme: -As above. Skeletal: -Only lytic lesions observed over those in the pelvic bones on MRI initially. Plan: -Continue monthly Zometa tomorrow. Assessment: -B/L PE on ASA. -Previous evidence of pulmonary hypertension on echocardiogram. -Tolerating apixaban well. -Symptoms resolved. Plan: -Continue apixaban. 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 Likely a consequence of nerve impingement as evidenced by previous MRI and not related to therapy for myeloma. Thigh pain Assessment: -Neurologic issue. -MRI 10/19/2023 supports this. Plan: -EMG as scheduled. Portions of this documentation were copied and pasted from previous office visit notes in order to provide a cohesive continuity of the history. The note has been reviewed and edited and updated as necessary. I spent a total of 30 minutes on the date of the service which included preparing to see the patient, [id number] patient care, completing clinical documentation, obtaining and/or reviewing separately obtained history, performing a medically appropriate examination, counseling and educating the pat ient/family/caregiver, ordering medications, tests, or procedures, communicating with other HCPs (not separately reported), and communicating results to the patient/family/caregiver. Connie Mccain DO documented in this [facility]03-20-[facility]24 Miscellaneous Notes* Telephone Encounter - Betsy Henriquez LPN - 01/10/2024 8:04 AM EDT [employer] auth #[id number]. Please send electronically. Betsy Henriquez LPN * Telephone Encounter - Betsy Henriquez LPN - 01/08/2024 7:13 AM EDT Unable to obtain [employer] auth until 01/11/2024. Betsy Henriquez LPN documented in this encounterFlower [facility]03-12-2024 History of Present illness Narrative* Tracy Torres MA - 01/02/2024 2:00 PM EDT Patient Verified by name and , Vaccines administered, VIS given .Tracy Torres MA documented in this encounterFlower [facility]03-12-2024 History of Present illness Narrative* Josey Miller PT - 01/02/2024 1:05 PM EDT Images from the original note were not included. Episode Visit Count: 1 Therapist That Will Accept/Oversee The Plan Of Care: Reba Miller Start of Care Date: 01/02/24 Onset Date: 10/04/23 Plan of Care Certification Date: 01/02/24 Next Certification Due Date: 03/02/24 Patient Identified by Name and Date of : Yes Rehab Precautions: DVT (post stem cell transplant, h/o PE, bone weakness> on med for) Mechanism of Injury: Insidious Onset Rehab Precautions: DVT (post stem cell transplant, h/o PE, bone weakness> on med for) Mechanism of Injury: Insidious Onset REHABILITATION [facility]ORTS THERAPY PHYSICAL THERAPY EVALUATION PLAN OF CARE: Assessment: Oseas Joseph presents with diagnosis of R thigh pain , weakness R lower extremity , femoral neuropathy; that interferes with rising from a chair, walking in the community, stair negotiation, bending, heavy exertion, lifting, physical activities, squatting, cooking . He presents with impairments in flexibility, gait, independence in exercise, joint mobility, overall function, patient reported outcome measures, posture, and strength. PROMIS (Patient-Reported Outcomes Measurement Information System) scores were reviewed and identified as a rehabilitation concern. Prognosis fortherapy is Good due to: current objective clinical presentation, good overall health status . He will benefit from skilled therapy services to meet the goals established for this plan of care as noted below. Goals for Episode of Care: created on 01/02/24 through 03/02/24 Iron in home exercise program. Patient will decrease pain rating by 2 points to meet minimal clinical important difference for numeric pain rating scale. Patient will decrease pain to 0-1/10 at rest and with functional activities to allow patient to improve ambulation and transfers. Patient will increase active ROM of Thoracic- lumbar spine to WFL to allow pt to to improve postural alignment, to improve performance of ADLs, to improve gait mechanics / gait pattern , and to decrease falls risks . Patient will demonstrate increase in R lower extremity and core, spine strength to 4+ to5/5 during manual muscle testing in order to improve function for home management tasks, leisure / recreation skills, and prior functional tasks. Patient will increase flexibility of spine ROM and bilateral LE's to WNL to improve ability to maintain proper posture, improve mechanics, and decrease pain. Patient will improve 10MWT to 1.2m/s with / or w/o assistive device to demonstrate improvement in functional community ambulation. Patient will tolerate & improve 5 time sit to stand to demonstrate improvement in functional lower extremity strength. Reciprocal stair negotiation. Patient will be able to correct postural deviations independently in order to improve postural alignment of trunk during transfers, ambulation, standing, and functional activities, allow for normal mechanics, to decrease current pain , and prevent future recurrence. Patient Goals: to decrease pain and improve strength Planned Interventions, Frequency, and Duration: Current Frequency: 2x/week (1-2 x week) Duration: Two months Total Number of Visits Planned: 17 Planned Treatment Interventions: Therapeutic exercise (10635), Neuromuscular re- education (97021), Manual therapy (77523), Therapeutic activities (51097), Gait Training (83104) PLAN FOR NEXT VISIT: proress LE - Hams and quads, stretching and add as approp, trunk ROM / flexibility, work on inc extension as able for mobility and stability, add Ther bd for strength spine and hipsprn Patient demonstrates good understanding of plan of care and treatment. The above goals and plan of care were discussed and agreed upon by patient/family. SUBJECTIVE: Pt reports R LE pain into the R quad area, and on and off has stabbing pain. ( on/ off He cant tellwhen ),; it feels very weak. Patient Goals: to decrease pain and improve strength Functional Limitations: rising from a chair, walking in the community, stair negotiation, bending, heavy exertion, lifting, physical activities, squatting, cooking Prior Level of Function: Independent without limitations Relevant History Past Relevant Medical Conditions: Hypertension (recently treated for multipl myeloma, PE, KYE, multiple myeloma) Past Relevant Surgical Conditions: (srtem cell transplant 06/02/23, now under going , drug to help with transplant and drug, reglamid for bone strengthening) Right or Left Handed: Right Employment: Retired Recreation / Current Exercise: walks Home Environment Patient Lives With: Spouse Assistance Available: 24-Hour Intake Information: Prescription present Falls Interview: No positive findings with falls interview (prevented some near misses;) Red Flags Vertebral Fracture Red Flags: Age >70 Vertebral Fracture Clinical Reasoning: Proceed with caution due to the above (1- 2) risk factors Abdominal Aortic Aneurysm Red Flags: Age >60 Abdominal Aortic Aneurysm Clinical Reasoning: Proceed with caution Cancer Red Flags: History of Cancer, Age >50 or <20 Cancer Clinical Reasoning: Proceed with caution Infection Clinical Reasoning: No identified risk factors. Cauda Equina Syndrome Clinical Reasoning: No identified risk factors. Red Flags - Cervical Cancer Red Flags: History of Cancer, Age >50 or <20 Cancer Clinical Reasoning: Proceed with caution Infection Clinical Reasoning: No identified risk factors. Spine History Symptoms Location at Onset: Back Symptoms Since Onset: Unchanging Pain is Worse Always: Standing, On the Move, As the day progresses Pain is Worse Sometimes: No position Pain is Better Always: No position Pain: Pain Pain Level: 3 Pain Location: Low Back/Lumbar Spine- Midline, Thigh - Right Description: Aching, Sore, Spasm, Stiffness, Tightness Post Treatment Pain Post Treatment Pain Level: No Change PROMIS Scales 12/30/2023 Higher is Better Phys Func - Score 39 (moderate dysfunction) Phys Func - Percentile 14 Self-Eff Symptom - Score 44 (Average) Self-Eff Symptom - Percentile 27 12/30/2023 Higher is Better Phys Func - Score 39 (moderate dysfunction) Phys Func - Percentile 14 Self-Eff Symptom - Score 44 (Average) Self-Eff Symptom - Percentile 27 T-scores: mean of general population = 50. 5 points is clinically meaningfully difference Percentiles provide an indication of how the patient's score ranks in relation to the general population. Higher percentile rankings indicate better function/quality of life. 50th percentile is the average of the general population and indicates half of respondents had a worse score. OBJECTIVE MEASURES WITH LEVEL OF FUNCTION: Posture / Alignment Posture: Forward head, Rounded shoulders, Decreased lumbar lordosis (flattened Lumbar spine) Lumbo - Pelvic Alignment: level Reflexes - Lower Extremity R Patellar: Normal L Patellar: Normal Spine Observations Spine Presents with: Muscle Tone (increased Th- Lumbar paraspinal tightness and spasm) Muscle Tone: (stiff) Spine presents with: tender R Lumbar Spine Palpation Tenderness: Paraspinals, Quadratus Lumborum L Lumbar Spine Palpation Tenderness: Paraspinals, Quadratus Lumborum R Thoracic Spine Palpation Tenderness: Paraspinals L Thoracic Spine Palpation Tenderness: Paraspinals Sensation - Lumbar Sensation: Grossly Intact Lumbar Spine AROM Lumbar Flexion: Minimal limitation (plus Hams tight) Lumbar Extension: Major limitation Lumbar R Side-Bend: Moderate limitation Lumbar L Side-Bend: Moderate limitation Lumbar R Rotation: Minimal limitation, Moderate limitation Lumbar L Rotation: Minimal limitation, Moderate limitation Thoracic Spine AROM Thoracic Flexion: Moderate limitation Thoracic Extension: Moderate limitation Thoracic Rotation Right: Moderate limitation Thoracic Rotation Left: Moderate limitation LE Flexibility Flexibility: Hamstring Flexibility, Quadriceps Flexibility R Hamstring Flexibility: -60 per 90/90 L Hamstring Flexibility: -50 per 90/90 R Quadriceps Flexibility: min tight L Quadriceps Flexibility: min tight LE Strength Trunk Strength: core : 4- metallurgical inspector 4/5 , Latiss D, and mid trap : 4 /5 , trunk ext . 4/5 ( parspinals) R LE Strength: grossly 4 to 5/5 or as noted L LE Strength: grossly 4 to 5/5 , or as noted R Hip Extension: 4-/5 R Hip ABduction: 4/5 R Knee Extension (L3): 4/5 R Knee Flexion: 4+/5 L Hip Extension: 4-/5 L Hip ABduction: 4/5 L Knee Extension (L3): 4+/5 L Knee Flexion: 5/5 Special Tests - Hip and Spine Hip and Spine Special Tests: Slump Test, SLR Test, ILIR Test, Scour Test SLR Test: Right Negative, Left Negative Slump Test: Left Negative, Right Negative ILIR Test: Left Negative, Right Negative Gait Weight Bearing Status: FWB Gait: Independent Gait Device: None Gait Deviations: General Deviations General Deviations/Observations: Arm swing decreased, Sandrita decreased, Step length decreased, Wide base of support Functional Performance Test Results 10 Meter Walk Test Trial 1 (seconds): 5.8 10 Meter Walk Test Average (m/sec): 1.03 Education: Education Learning Preferences: Demonstration, Explanation, Performance, Printed Materials TREATMENT: PT Treatment Interventions: Therapeutic Activity, Therapeutic Exercise Evaluation Evaluation Therapeutic Exercise: 1: Hams stretches manual 2: * Hams stretches seated and stand , instruct x use sheet / belt 3: Pronelying x approx 2 min 4: standing trunk ext x 10 5: DF/ PF x 10 standing Skilled Intervention: Patient was educated in proper exercise technique and purpose for exercises. Reviewed and educated patient on additions/changes for home exercise program as above (*). Skilled judgment was used in selection of appropriate interventions. Therapeutic Activity: 1: PT eval and POC rev'd and discussed with pt 2: anatomy, and posture ed Skilled Intervention: Educated on proper/safe technique for activities performed today. Activity progression based on professional judgment. Billing * Evaluation Low Complexity: 1 Unit Therapeutic Exercise Treatment Minutes: 15 Therapeutic Activity Treatment Minutes: 8 Skilled Treatment Time Minutes (timed and untimed codes): 57 Total Session Time (minutes): 57 Session Start Time : 924 Session Stop Time : 1021 Josey Miller PT documented in this encounterF[facility]03-01-2024 Miscellaneous Notes* Telephone Encounter - Teresita Newsome - 12/22/2023 12:19 PM EST Spoke with Oseas on 12/22/2023 in regards to getting scheduled for his EMG appointment. Patient indicated that he is taking the medication Eliquis but will be switching to Xarelto. Instructed that this medication is to be held for 24 hours prior to testing. Patient is to reach out to prescribing physician to ensure that it is safe to hold prior to testing. Oseas expressed understanding with these instructions. Teresita EMG Tech documented in this encounterF[facility]03-01-2024 Instructions* Patient Instructions* Martha Leone MD - 12/22/2023 8:43 AM EST Based on your exam, I'm concerned you've hurt your femoral nerve which is responsible for hip flexion strength and sensation to the front of the thigh. We're going to get an EMG to see if that's right. We're also going to refer you to physical therapy to see if we can improve your strength and walking documented in this encounterFlower Hospital03-01-2024 History of Present illness Narrative* Martha Leone MD - 12/22/2023 8:00 AM EST Images from the original note were not included. General Neurology Outpatient Clinic - new patient evaluation Date:December 22, 2023 Patient Name: Oseas Joseph Referring physician: Connie Mccain [address] [facility] [id number] Primary physician: Connie Lugo [address] [facility] [address] [phone] Reason for Evaluation: Pain HPI: The pt is a 73yo Right handed male with hx of - HTN - HLD - PE - DM2 - multiple myeloma - malignant melanoma Referred by Dr. Connie Mccain in hematology for neurological consultation regarding right anterior thigh pain. My opinions and recommendations will be shared with consulting team via electronic medical record Accompanied by his and daughter Per EMR, patient saw hem/onc for follow-up 11/16/2023. Noted right anterior thigh pain, worse in distal aspect of quadriceps muscle. None at rest. Happens when he stands up after sitting for a while. Worse in evenings. Can have hard time crossing legs or getting into car. Per patient, onset of symptoms acutely about 8 weeks ago. Right anterior thigh burning pain worse with certain movements such as getting in and out of the car. The leg feels '' and he has to use his hands to lift and assist it. This pain resolved spontaneously after about 2 weeks for about 2 weeks. Unfortunately, during those 2 weeks of reprieve, he experienced right sided chest pain and thensharp mid-back pain. X-rays were unrevealing. Once the other pains resolved, the right thigh pain returned and has been persistent for about 4 weeks now. There is always some pain but it's exacerbated with the same movements as the first time He has had some weight fluctuates but denies known injury to hip or back. No low back pain during this time. No thigh color changes or swelling. He is on Eliquis for PEs, transitioning to Xarelto tomorrow because of cost. He is s/p BMT in May 2023 for his MM Prior neurological workup: 10/19/2023 MRI L spine wwo OUTPATIENT MEDICATIONS Current Outpatient Medications on File Prior to Visit Medication Sig lenalidomide (REVLIMID) 10 mg capsule TAKE 1 CAPSULE BY MOUTH DAILY FOR 28 DAYS acyclovir (ZOVIRAX) 400 mg tablet Take 1 tablet by mouth two times a day. sildenafil (VIAGRA) 50 mg tablet Take 50 mg by mouth as needed. loperamide HCl (IMODIUM ORAL) Take by mouth as needed. apixaban (ELIQUIS) 5 mg tab(s) Take 1 tablet by mouth twice daily. glimepiride (AMARYL) 2 mg tablet Take 1 tablet by mouth daily with breakfast. Take 2 mg twice a day. May increase to 4mg BID if your PCP requests so. (Patient taking differently: Take 4 mg by mouth two times a day with meals. Take 2 mg twice a day. May increase to 4mg BID if your PCP requests so.) ondansetron (ZOFRAN) 8 mg tablet Take 1 tablet by mouth every 8 hours as needed for nausea/vomiting. clonazePAM (KLONOPIN) 0.5 mg tablet Take 0.5 mg by mouth once daily. amLODIPine (NORVASC) 5 mg tablet Take 5 mg by mouth once daily. atorvastatin (LIPITOR) 10 mg tablet Take 10 mg by mouth once daily. losartan (COZAAR) 50 mg tablet Take 50 mg by mouth once daily. Current Facility-Administered Medications on File Prior to Visit Medication perflutren lipid microspheres 1.3 mL in NaCl (PF) 0.9% 10 mL injection (DEFINITY) sodium chloride 0.9 % (flush) 10 mL (BD POSIFLUSH) MEDICAL HISTORY PAST MEDICAL HISTORY Diagnosis Date Arthritis Chronic diarrhea Malignant melanoma (HCC) Mixed hyperlipidemia Multiple myeloma not having achieved remission (HCC) 10/26/2022 Other hyperlipidemia 04/17/2023 Primary hypertension 04/17/2023 Pulmonary embolism (HCC) Right bundle branch block 04/17/2023 Type 2 diabetes mellitus, without long-term current use of insulin (HCC) 04/17/2023 SURGICAL HISTORY PAST SURGICAL HISTORY Procedure Laterality Date REPAIR INCISIONAL HERNIA,REDUCIBLE 8th grade SKIN BX, 1 LESION 06/2022 SOCIAL HISTORY Social History Tobacco Use Smoking status: Never Smokeless tobacco: Never Vaping Use Vaping Use: Never used Substance Use Topics Alcohol use: Not Currently Comment: social Drug use: Never FAMILY HISTORY FAMILY HISTORY Problem Relation Age of Onset Diabetes Mother Hypertension Mother Renal Disease Mother Hypertension Father Diabetes Father Hypertension Sister Diabetes Sister No Known Problems Sister No Known Problems Sister No Known Problems Sister No Known Problems Sister Heart Sister Hypertension Brother Diabetes Brother Hyperlipidemia Brother Heart Brother Hypertension Maternal Grandmother Diabetes Maternal Grandmother Colon Cancer Paternal Grandmother Hypertension Paternal Grandfather ALLERGIES ALLERGIES No Known Allergies REVIEW OF SYSTEMS: No fevers, chills No chest pain No SOB No abdominal pain No low back pain No hip pain See HPI PHYSICAL EXAM: BP 104/66 (BP Site: Left Arm, BP Position: Sitting, BP Cuff Size: Regular Adult) Pulse 70 Resp 20 Ht 185.9 cm (6' 1.2) Wt 83.8 kg (184 lb 11.9 oz) SpO2 100% BMI 24.24 kg/m General appearance: Well appearing, alert, in no acute distress Neurological exam: Mental Status: Alert, oriented to person, place and time and Follows commands. Cranial Nerves: PERRL, visual rashid intact to confrontation, extraocular movements intact, facial sensation intact, face symmetric, no facial droop or ptosis, hearing intact to finger rub bilaterally, no dysarthria, palate elevate symmetrically, tongue protrudes midline, and shoulder shrug intact and symmetric. Motor: Right Upper: Left Upper: Deltoid: 5 Deltoid: 5 Triceps: 5 Triceps: 5 Biceps: 5 Biceps: 5 Battery Container Finishing Hand: 5 Battery Container Finishing Hand: 5 Finger abduction: 5 Finger abduction: 5 Finger adduction: 5 Finger adduction: 5 Right Lower: Left Lower: Iliopsoas: 3 Iliopsoas: 5 Knee flexor: 5 Knee flexor: 5 Knee extensor: 5 Knee extensor: 5 Dorsiflexion: 5 Dorsiflexion: 5 Plantarflexion: 5 Plantarflexion: 5 Motor Tone: Right Upper: Normal tone Left Upper: Normal tone Right Lower: Normal tone Left Lower: Normal tone Reflexes: 2/4 biceps, brachioradialis, patellars. 0/4 ankles. Downoging plantars Sensation: some reduction to pinprick anterolateral R thigh. Reduced vibration distal BLE, intact at ankles. Otherwise intact BUE and BLE to touch, temperature, vibration, proprioception, pinprick Coordination: Finger-to- nose-finger intact bilaterally and [id number] intact bilaterally. Gait: normal-based, favors RLE. Unsteady but independent tandem Romberg: neg LABS/DATA: Component Latest Ref Rng & Units 11/16/2023 WBC 3.70 - 11.00 k/uL 2.98 (L) RBC 4.20 - 6.00 m/uL 4.36 Hemoglobin 13.0 - 17.0 g/dL 12.6 (L) Hematocrit 39.0 - 51.0 % 39.4 MCV 80.0 - 100.0 fL 90.4 MCH 26.0 - 34.0 pg 28.9 MCHC 30.5 - 36.0 g/dL 32.0 RDW-CV 11.5 - 15.0 % 14.8 Platelet Count 150 - 400 k/uL 174 MPV 9.0 - 12.7 fL 9.9 Neut% % 49.3 Abs Neut (ANC) 1.45 - 7.50 k/uL 1.47 Lymph% % 27.5 Abs Lymph 1.00 - 4.00 k/uL 0.82 (L) Morton% % 12.8 Abs Morton <0.87 k/uL 0.38 Eosin% % 8.4 Abs Eosin <0.46 k/uL 0.25 Baso% % 1.7 Abs Baso <0.11 k/uL 0.05 Immature Gran % % 0.3 IMMATURE GRANS (ABS) <0.10 k/uL <0.03 NRBC /100 WBC 0.0 Absolute nRBC <0.01 k/uL <0.01 DTYPE Auto Protein, Total 6.3 - 8.0 g/dL 6.2 (L) Albumin 3.9 - 4.9 g/dL 4.2 Calcium 8.5 - 10.2 mg/dL 9.4 Bilirubin, Total 0.2 - 1.3 mg/dL 0.8 Alkaline Phosphatase 38 - 113 U/L 55 AST 14 - 40 U/L 18 ALT 10 - 54 U/L 11 Glucose 74 - 99 mg/dL 120 (H) BUN 9 - 24 mg/dL 13 Creatinine 0.73 - 1.22 mg/dL 1.15 Sodium 136 - 144 mmol/L 143 Potassium 3.7 - 5.1 mmol/L 4.3 Chloride 97 - 105 mmol/L 109 (H) CO2 22 - 30 mmol/L 23 Anion Gap 9 - 18 mmol/L 11 eGFR >=60 mL/min/1.73m 68 IMAGIN10/19/2023 MRI L spine wwo No discrete osseous lesions. No pathologic fractures or extraosseous extension. Unremarkable conus and cauda equina nerve roots with no signal abnormality or abnormal enhancement. Mild degenerative changes of the lumbar spine most pronounced at L4-L5 with mild canal stenosis and varying degrees of neuroforaminal stenosis up to mild to moderate at L5-S1 right neuroforamina. 08/03/2023 PET/CT whole body 1. Head and neck: No FDG avid neoplastic process. 2. Chest: No FDG avid neoplastic process. Small pericardial effusion or thickening. 3. Abdomen and pelvis: No FDG avid neoplastic process. Large left scrotal hypodensity, maybe due to a combination of a hydrocele and the previously reported large spermatocele. 4. Extremities/Skeleton: No FDG avid neoplastic process. The small 6 mm and 10 mm pelvic lesions described in the MRI study of 10/06/2022 are not seen on today's PET/CT and perhaps could be better followed with MRI. No focal hypermetabolic lesions or lytic/sclerotic lesions are detected. No evidence of a disseminated form of diffuse skeletal osteopenia. In the absence of PET positive lesions, smoldering multiple myeloma could be considered. Small left suprapatellar knee joint effusion with slight uptake, which may be posttraumatic, degenerative, or inflammatory. ASSESSMENT: The pt is a 73 year old male with a history of HTN, HLD, DM2, PE2, multiple myeloma, malignant melanoma who presents with RLE pain and weakness. His neurological examination is concerning for potential right femoral neuropathy given hip flexor weakness and anterior distribution of pinprick loss. Uncertain exact etiology. Discussed EMG to evaluate further and to help with prognostication (delineate active vs chronic injury). Patient amenable. While his MRI L spine shows foraminal stenosis, the nerve roots for femoral nerve are L2-4 which would be above the level where he has more foraminal stenosis. PLAN: - EMG for further evaluation - PT - f/u pending above I spent a total of 60 minutes on the date of the service which included preparing to see the patient, [id number] patient care, completing clinical documentation, obtaining and/or reviewing separately obtained history, performing a medically appropriate examination, counseling and educating the pat ient/family/caregiver, ordering medications, tests, or procedures, and independently interpreting results (not separately reported). Martha Leone MD Staff, General Neurology Pager: [phone] CC: Referring Physician: Connie Mccain [address] [facility] [id number] PCP: Connie Lugo [address] [facility] [address] [place] [address] documented in [facility] History of Present illness Narrative* Temo Gill RN - 12/14/2023 9:09 AM EST IRB # [id number], [facility]# [id number] study entitled Phase III Study of Daratumumab/rHuPH20 (NSC- [id number]) + Lenalidomide or Lenalidomide as Post- Autologous Stem Cell Transplant Maintenance Therapy in Patients with Multiple Myeloma (MM) Using Minimal Residual Disease to Direct Therapy Duration (DRAMMATIC Study). Pt ID: [id number] Consented: 01/03/2023 Observational Consent IC Signed for Treatment Step 2: 07/22/2023 Randomized: 08/18/2023 Treatment Arm: TAC- 1 Lenalidomide C1D1:08/24/2023 Patient was here December 14, 2023 for C5D1. Patient overall feels he is doing well - some aches inhis thighs still - describes similarly to last cycle. Patient to see neurology 12/22/2023 for pain inthigh and back. PCP is sending patient for stress test 12/28/2023 for similar pain but in chest. Otherwise, patient feels good today and had his third COVID shot 12/12/2023 where he had some nausea andemesis, but has not since. Treatment Plan: Treatment Previous Cycle Cycle Current Start Date Frequency End date Lenalidomide Cycle 1 Day 1 08/24/2023 Cycle 4 11/16/2023-12/13/2023 100% Compliant Cycle 5 12/14/2023-01/10/2024 10/19/2023 Daily, Cycle every 28 days Clinical Trial Specific Testing Test Dates Completed Due Date Bone Marrow Biopsy CTD 07/24/2023 Baseline Step 2 [x] 07/24/2024 12 months post Step 2 [] 07/24/2025 24 months post Step 2 [] 07/24/2026 36 months post Step 2 [] 07/24/2027 48 months post Step 2 [] QOLs PRO-CTCAE 08/17/2023 (Baseline) [x] 08/24/2023 (Cycle 1) [x] 09/21/2023 (Cycle 2) [x] 10/19/2023 (Cycle 3) [x] 11/16/2023 (Cycle 4) [x] 12/14/2023 (Cycle 5) [x] 01/11/2024 (Cycle 6) [] Day 1 of every cycle Baseline Weight (08/24/2023 date) 80.7 kg kg Current Weight 83 kg (+2.7%) Creatinine Clearance 61.8 ml/min ECOG per ECOG- 0 12/14/2023 Weight 83 kg (183 lb) BSA 0 BMI 0 Temp 37.2 C (98.9 F) Resp 16 Pulse 69 BP 114/67 SpO2 98 % Bone Marrow - Plasma Cell % Free Light Chains M Protein Date Size (mm) Date Dakota Lambda * IGG Date Serum Urine Diagnosis 08/24/2022 20% Diagnosis 10/26/2022 11.7 43.5 Diagnosis 10/26/2022 1.12 M protein present Baseline 07/30/2023 Less than 5%* Baseline 08/07/2023 4.7 2.5 Enrollment 07/31/2023 Cycle 1 0.22 0.00 08/24/2023 Cycle 1 4.1* 2.4* 08/24/2023 Cycle 1 0.28 0.00 09/21/2023 Cycle 2 11.7 8.7 09/21/2023 Cycle 2 0.17 0.01 10/19/2023 Cycle 3 15.5 10.5 10/19/2023 Cycle 3 0.16 0.01 11/16/2023 Cycle 4 17.4 21.4 11/16/2023 Cycle 4 0.20 0.00 12/14/2023 Cycle 5 19.4 23.1 12/14/2023 Cycle 5 0.00* 0.00 Lowest/Jacque = * Drug Accountability/Education - Completed on 12/14/2023. Patient given Cycle 5 diary. Patient did return cycle 4 - reviewed edits with patient. Use of the study medication diary and dosing instructions were reviewed with the patient. Patient verbalizes understanding of dosing of Revlimid: Capsules should be taken whole, with water, once daily (patient takes at HS). If a dose is missed, and it has been less than 12 hours since the preceding dose, the patient should take lenalidomide as soon as the patient remembers. If it has been more than 12 hours, the patient should skip the missed dose. Patient took pills for the cycle - determining 100% compliance Patient receives drug from a private pharmacy - but switching due to funding - delayed, but patientheld for a week due to labs. Lenalidomide Education and Counseling completed. Patient counseled on potential exposure to lenalidomide by , engage in abstinence or use a condom when engaging in sexual contact with WOCBP, notify study doctor if female partner becomes , never share drug with anyone else, notto donate blood, semen, or sperm while taking drug and for 28 days after. Concomitant medications reviewed per protocol: Yes Patient reported changes to medication list: No changes since last visit. Current medications: Current use of anticoagulants: YES (see medications below if applicable) Anticoagulants: Eliquis 5 mg Current use of herbal preparations or medications: No Prophylactic shingles medication: Acyclovir 400 mg Current Outpatient Medications Medication Sig Start/Stop Use acyclovir (ZOVIRAX) 400 mg tablet Take 1 tablet by mouth twice daily. 05/01/2023 Prophylactic shingles ondansetron (ZOFRAN) 8 mg tablet Take 1 tablet by mouth every 8 hours as needed for nausea/vomiting. 10/26/2022 PRN Nausea clonazePAM (KLONOPIN) 0.5 mg tablet Take 0.5 mg by mouth once daily. 07/29/2023 Anxiety glimepiride (AMARYL) 4 mg tablet Take 2 capsules by mouth in AM & 1 capsule in PM. >5 years Type 2 amLODIPine (NORVASC) 5 mg tablet Take 5 mg by mouth once daily. 02/10/2021 Hypertension atorvastatin (LIPITOR) 10 mg tablet Take 10 mg by mouth once daily. 02/10/2021 Cholesterol losartan (COZAAR) 50 mg tablet Take 50 mg by mouth once daily. 02/10/2021 Hypertension Loperamide (Imodium Oral) Take 2 tablet by mouth as needed >5 years Diarrhea Sildenafil (Viagra) 50 mg tablet Take 50 mg by mouth as needed. >10 years ED Eliquis 5 mg tablet Take 1 tablet by mouth twice daily 03/23/2023 Preventative - blood thinner Melatonin 5 mg Take 1 tablet at bedtime 03/23/2023 Insomnia Revlimid 10 mg Take 1 capsule daily in the morning 08/24/2023 MM treatment No current facility-administered medications for this visit. Medical History: PAST MEDICAL HISTORY Diagnosis Date Arthritis Treated with medication Chronic diarrhea Resolved and now constipation Diabetes mellitus (HCC) Treated with medication Essential hypertension Treated with medication Mixed hyperlipidemia Treated with medication PAST MEDICAL HISTORY Diagnosis Date Arthritis Treated with medication Chronic diarrhea Resolved Malignant melanoma (HCC) On back removed - precancerous and 06/2022 non cancerous Mixed hyperlipidemia Treated with medication Multiple myeloma not having achieved remission (HCC) Treated with medication Primary hypertension Treated with medication Pulmonary embolism (HCC) Treated with medication Right bundle branch block Treated with medication Type 2 diabetes mellitus, without long-term current use of insulin (HCC) Treated with medication Surgical History: PAST SURGICAL HISTORY Procedure Laterality Date REPAIR INCISIONAL HERNIA,REDUCIBLE Resolved 8th grade SKIN BX, 1 LESION 06/2022 non cancerous Baseline Toxicities per CTCAE v. 5: All predate therapy, are chronic conditions and will not be actively followed unless they worsen during the clinical trial. Hyperglycemia; Grade 1: Start Date: >5 years PRIOR TO STUDY Drugs to Treat: Glimepiride Action Required: None Outcome: Ongoing. (Chronic) Diarrhea; Grade 1: Start Date: >5 years PRIOR TO STUDY Drugs to Treat: Imodium Action Required: None Outcome: Ongoing. Anemia; Grade 1: Start Date: Intermittent PRIOR TO STUDY 07/24/2023 RESOLVED: 08/24/2023 but Grade 1again 09/21/2023 Drugs to Treat: None. Action Required: None Outcome: Ongoing Aspartate aminotransferase decreased; Grade 1: Start Date: Intermittent PRIOR TO STUDY 07/24/2023 STOPPED:11/16/2023 Drugs to Treat: None. Action Required: None Outcome: RESOLVED Alanine aminotransferase decreased; Grade 1: Start Date: Intermittent PRIOR TO STUDY 07/24/2023 STOPPED:11/16/2023 Drugs to Treat: None. Action Required: None Outcome: RESOLVED Insomnia; Grade 1: Start Date: Intermittent PRIOR TO STUDY 07/21/2023 Drugs to Treat: None. Action Required: None Outcome: Ongoing. Weight Loss; Grade 1: 3.5 Percent Increase since - Intentional Start Date: Intentional Loss - PRIORTO STUDY 07/21/2023 RESOLVED:11/16/2023 Drugs to Treat: None. Action Required: None Outcome: RESOLVED Hypophosphatemia:Start Date: PRIOR TO STUDY 07/24/2023 STOPPED:08/24/2023 Drugs to Treat: None. Action Required: None Outcome: RESOLVED Toxicities per CTCAE v. 5: White Blood Cell Count Decreased; Grade 2: Related to Revlimid and Vaccines Start Date: 09/21/2023 RESOLVED: 09/28/2023 RESTARTED: 11/16/2023 Drugs to Treat: None. Action Required: None Outcome: ONGOING Platelet Count Decreased; Grade 1: Start Date: 09/21/2023 Drugs to Treat: None. Action Required: None Outcome: Ongoing Bone Pain: Grade 2; Bilateral Thigh: Unlikely related to Revlimid Start Date: PRIOR TO STUDY 08/24/2023 INCREASED 10/19/2023 Drugs to Treat: None. Action Required: XRAY THIGH AND REFERRAL TO NEUROLOGIST Outcome: Ongoing. Neutrophil Count Decreased; Grade 2: Possibly Related to Revlimid and Vaccines Start Date: 12/14/2023 Drugs to Treat: None. Action Required: None Outcome: ONGOING Lymphocyte Count Decreased; Grade 2: Start Date: Intermittent PRIOR TO STUDY- Possibly related to Revlimid and Vaccines Increased:12/14/2021 Drugs to Treat: None. Action Required: None Outcome: Ongoing Patient turned in a 24 hour urine: Yes Patient knows to RTC 01/11/2024 for Cycle 6. Patient knows to call in the interim for any questions or concerns. Patient has contact information for Uma Gill Research Nurse and Dr. Mccain, along with the office number. Patient meets all Criteria for Study Participation: Yes REID Bynum, RN Clinical Research Nurse [phone] documented in this encounterFlower Hospital02-22-[facility]24 History of Present illness Narrative* Connie Mccain, - 12/14/2023 8:34 AM EST Oncologic problem(s): 1) IgG lambda multiple myeloma. HPI: The patient is a 73-year-old male with a past medical history significant for type 2 diabetes,high cholesterol, hypertension and right bundle branch block. Patient originally presented to the emergency room at [facility] on 04/19/2022 with new onset of confusion that day which had been worsening. Laboratory work-up significant for hypokalemia. CT of the brain was unremarkable. He was admitted. During hospitalization it was noted that hehad been having diarrhea for 6 to 8 weeks. Stool studies were positive for Campylobacter, blood andlactoferrin. C. difficile was negative. CT of the abdomen pelvis on 04/21/2022 noted abnormal pericholecystic edema without gallstones. Renal cysts and colonic diverticulosis were noted. He was found to have elevation of sed rate to 39, CRP 134. His albumin was 2.3. IgA low at 37. He was discharged on azithromycin, potassium and magnesium supplement. He was seen in the outpatient setting for follow-up visit on 07/11/2022. He continued to have one episode of explosive diarrhea daily. This had been going on for about 8 months. CBC on 07/11 showed a white count of 6400. Differential was normal. Hemoglobin 14.9 g/dL. Platelet count 275,000. Chemistries significant for creatinine of 1.29 g/dL. Previously 1.13 g/dL on 04/27/2022.Calcium was 9.3 mg/dL. Total bilirubin, AST, ALT and alkaline phosphatase were normal. LDH was 181.C-reactive protein was less than 2.09. Total protein was 8.8 g/dL. Total IgG was 2462 mg/dL. IgA decreased to 28 mg/dL. IgM normal at 32 mg/dL. On protein electrophoresis, patient was found to have 2M spikes both IgG lambda by immunofixation. For spike was quantitated at 1.2 g/dL and the second was quantitated at 0.6 g/dL. Cytoplasmic and perinuclear ANCA both negative. Atypical p-ANCA negative. Patient described diarrhea as loose, eran stools sometimes explosive typically one bowel movement per day however. He had not observed any blood. Had a colonoscopy December [address] Arteaga. His appetite was normal. He had not lost weight. Denied reflux and nausea. He did get abdominal bloating associated with the diarrhea. He denied musculoskeletal pain. He denied symptoms of sensory neuropathy. He sees an team supervisor once a year for dilated exam. He has not been told he has retinopathy. Recent removal of early melanoma back. Blue nevus right ankle--required WLE--scheduled. PMR--about 15 years ago. Patient underwent colonoscopy on 09/21/2022. Preparation of the colon was fair. -One 6 mm polyp at the ileocecal valve, removed with a hot snare. Resected and retrieved. -One 5 mm polyp in the ascending colon, removed with a hot snare. Resected and retrieved. -Congested mucosa in the descending colon, at the splenic flexure, in the ascending colon and in the cecum. Biopsied. -Diverticulosis in the recto-sigmoid colon, in the sigmoid colon and in the descending colon. -Stool in the rectum, in the sigmoid colon, in the descending colon and at the hepatic flexure. Fluid aspiration performed. -The examined portion of the ileum was normal. Biopsied. Pathology: A. Ileocecal valve polyp, biopsy: -Consistent with fibrolipomatous polyp. -See comment. B. Small bowel, biopsy: -No pathologic change. C. Cecum, biopsy: -Mild melanosis coli. D. Colon, random biopsy: -Mild melanosis coli. E. Ascending colon polyp, biopsy: -Fragments of tubular adenoma. B, C, D & E - No congophilic material identified. Congo red stain with matched control is negative. ADDENDUM C & D. No congophilic material is noted in these biopsies on light and polarized microscopy. Congo Red stain with matched control was used in the evaluation of this case. He was diagnosed with pancreatic insufficiency and was to start pancreatic enzyme replacement. Patient had a venous duplex ultrasound on 12/16/2022 for right leg pain. That study demonstrated no evidence of DVT in the right leg. He developed chest pain and increasing shortness of breath. Went to the ED on 01/16/2023. PE protocol chest CT demonstrated multiple bilateral pulmonary emboli involving the distal portion of both theright and left main pulmonary arteries as well as branches of the upper and lower lobe pulmonary arteries, more prominent on the right side. Platelet count was 67,000. Patient was admitted and placedon unfractionated heparin with bolus. The next morning platelet count was 62,000. He was rotated toapixaban and discharged. Echocardiogram performed 01/17/2023 demonstrated normal LV size. There was moderate concentric LVH. Left ventricular systolic function was normal with an estimated ejection fraction at 60%. There was stage I diastolic dysfunction. The pulmonary artery systolic pressure was 58 mmHg. The global longitudinal strain was -11.5% (abnormal). The global longitudinal strain was moderately abnormal. (Previous echocardiogram 04/20/2022 demonstrated right ventricular systolic pressure estimated at 22 mmHg. Diastolic function was indeterminate. Right ventricular strain was not determined). His chest pain has improved. He is still short of breath with heavier exertion and sometimes walking from room to room he finds himself breathing heavier. He has been taking apixaban 10 mg twice daily. No bleeding issues. Previous therapy: 1) RVd. Cycle #1 began 11/09/2022. 2) Zometa. 3) ASCT. Transplant Summary: BMT Information ASCR infused on 06/02/2023 Planned Proposed Protocols: IP BMT AUTO MELPHALAN 200 Planned Preparative Regimen Drug: Melphalan Planned Mobilization Agent: G-CSF, Plerixafor Planned Stem Cell Source: Peripheral blood stem cells BMT Transplant Details # of cells: 6.16 Presents for ongoing oncologic management. Interim history: Had third Covid booster two days ago. Had chills and vomiting afterward. Resolved. No subjective side effect from lenalidomide. Still has pain right thigh. Migrated to chest and then low back. Those resolved. Now back to thigh. Very hard to characterize this--seems combination of pain (stabbing) and weakness if walking on it a while. PMH, medications and allergies personally reviewed by me today. Any changes documented in appropriate section. ROS: Constitutional: Denies episodes of fever and night sweats. Neuro: Denies HAMILTON, vertigo, dizziness and imbalance. HEENT: No recent change in voice, vision or hearing. Resp: Denies cough, wheeze and hemoptysis. Denies shortness of breath at rest. Denies MACE. CVS: Denies exertional chest pain, PND, orthopnea and LE edema. GI: See HPI. : Denies dysuria or gross hematuria. Endo: Denies hot flashes. Denies polyuria and polydipsia. Denies heat and cold intolerance. Musculoskeletal: See HPI. Derm: Denies rash. Denies jaundice and diffuse pruritis. Heme: Denies unusual bleeding and unexplained bruising. Psych: Normal mood. PHYSICAL EXAM: Vitals: Blood pressure 114/67, pulse 69, temperature 37.2 C (98.9 F), weight 83 kg (183 lb), SpO2 98%. Well-appearing and in no acute distress. EYES: Sclerae are anicteric bilaterally. LYMPHATIC: There is no palpable cervical or supraclavicular adenopathy. RESPIRATORY: Inspiratory breath sounds are of normal intensity in all rashid. No rales, wheezes or rhonchi. CARDIOVASCULAR: Rhythm is regular. ABDOMEN: The abdomen is nondistended. Extremities: No swelling or edema. SKIN: No jaundice. NEUROLOGIC: human resource intern II-XII are grossly intact. Diminished hip flexor strength right leg. Patellar DTRs slightly diminished, but symmetric. MS: No tenderness or mass of the right quadriceps muscle. ASSESSMENT/PLAN: (C90.00) Multiple myeloma not having achieved remission (HCC) (primary encounter diagnosis) Assessment: -The patient is a 72-year-old male has a past medical history significant for diabetes and chronic diarrhea that was characterized by one explosive watery stool daily (was diagnosed with pancreatic insufficiency). Was hospitalized 03/2022 when diarrhea significantly worsened and he was diagnosed with and treated for Campylobacter infection. During that evaluation, was found to have two IgG lambda monoclonal antibodies. He did not have hypercalcemia or anemia but had elevated serum creatinine (which may be related to volume depletion when hospitalized for diarrhea and mental status change). 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 Low to intermediate risk disease (PCs 20%). -Imaging--no lytic lesions on whole body CT; Liver cyst and splenic nodule (6-12 month f/u MRI recommended). -Bone marrow negative for amyoid. -Colonic biopsies negative for amyloid. -Subsequent MRI of spine and pelvis revealed two T2 hyperintense foci in the pelvis, one in the left sacral rebeka and one in the right ischium. -FISH panel revealed (11;14) (q13;q32) (IGH/CCND1) translocation consistent with the presence of a plasma cell neoplasm associated with standard risk disease. -R-ISS stage I (serum beta microglobulin less than 3.5 mg/L and serum albumin greater than 3.5 g/dL; standard risk disease by FISH testing as outlined above and serum LDH less than upper limit of normal). -PS ECOG 0 -VGPR as of 10/2023. -Right anterior thigh pain as described above. Reviewed MRI. Possibly related to neuroforaminal impingement. Plan: -Continue lenalidomide 10 mg daily continuous dosing schedule. -Monthly Zometa (received dose 7 of 12 today). -CBC, chemistries and serum protein electrophoresis and immunofixation as well as 24-hour urine collection for electrophoresis and immunofixation monthly per protocol. Supportive care: ID: Plan: -Received influenza and RSV. -Restarted Covid with booster. Heme: -CBC today demonstrates grade 1 lymphocytopenia. Grade 1 anemia. -Monitor counts per protocol. Skeletal: -Only lytic lesions observed over those in the pelvic bones on MRI initially. Plan: -Continue monthly Zometa tomorrow. (I26.99) Acute 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 acute cor pulmonale, unspecified pulmonary embolism type (HCC) Assessment: -B/L PE on ASA. -Previous evidence of pulmonary hypertension on echocardiogram. -Tolerating apixaban well. -Symptoms resolved. Plan: -Continue apixaban. Neuro: -No symptoms of sensory neuropathy currently. -Unclear if right thigh pain neurologically mediated or musculoskeletal in nature. Thigh pain Assessment: -No muscle tenderness. -right hip flexor weakness on today's exam. -Believe this is related to neurologic issue. -MRI 10/19/2023 supports this. Plan: -Has neurology evaluation scheduled. Portions of this documentation were copied and pasted from previous office visit notes in order to provide a cohesive continuity of the history. The note has been reviewed and edited and updated as necessary. I spent a total of 20 minutes on the date of the service which included preparing to see the patient, [id number] patient care, completing clinical documentation, obtaining and/or reviewing separately obtained history, performing a medically appropriate examination, counseling and educating the pat ient/family/caregiver, ordering medications, tests, or procedures, communicating with other HCPs (not separately reported), and communicating results to the patient/family/caregiver. Connie Mccain DO documented in this encounterF[facility]02-20-2024 Miscellaneous Notes* Telephone Encounter - Darline Krishnan MD - 12/12/2023 3:59 PM EST I spoke with Ms. Joseph regarding Oseas's post-BMT vaccinations. They have been able to obtainthe influenza, RSV, and three COVID-19 vaccinations locally. However, there have been issues getting the other vaccinations coordinated, which will be due in December. During our conversation, Ms. Joseph decided to simply contact our office and set-up a nurse visit to have these done. * Telephone Encounter - Gabriel Mendoza - 12/12/2023 3:51 PM EST Pt spouse would like to discuss the patient's vaccines with you. [phone] Louise Bermudez documented in this encounterFlower Hospital02-20-2024 Miscellaneous Notes* Telephone Encounter - Betsy Henriquez LPN - 12/12/2023 8:08 AM EST [employer] auth # [id number]. Please send electronically. Betsy Henriquez LPN documented in this encounterFlower Hospital02-15-2024 Miscellaneous Notes* Telephone Encounter - Temo Gill RN - 12/07/2023 1:08 PM EST Left a voicemail for patient on 's phone at this time. * Telephone Encounter - Temo Gill RN - 12/06/2023 2:23 PM EST Spoke with patients - patients cold symptoms have improved drastically. However, patient is having back pain now and this was forwarded to . The patient was asleep so it was hard to get further information beyond lower back pain. Temo Gill RN documented in this encounterFlower Hospital02-12-2024 Miscellaneous Notes* Telephone Encounter - Temo Gill RN - 12/04/2023 1:05 PM EST Patient went to the ER 2/ and no PE was found or clot. Patient followed up with leather splitter and is doing a sleep study. They started him on 1,000mg tylenol three times daily for what they believe is a muscular issue and the pain has resolved. However, the patient has started to get a cold and I will follow-up in several days to make sure it does not worsen and that the Revlimid does not need to be help. Temo Gill RN documented in this encounterFlower Hospital02-05-2024 Miscellaneous Notes* Telephone Encounter - Florence Momin RN - 11/27/2023 2:11 PM EST Addressed in a separate phone encounter. Patient going to ED. Florence Momin RN * Telephone Encounter - Isabel Murphy - 11/27/2023 12:34 PM EST Patient's spouse, Louise, called in stating that he has a spot to the right of his sternum and has had it for 2 weeks but just reported it to Louise today. He is winded on exertion Please advise. Isabel Murphy documented in this encounterFlower Hospital02-05-2024 Miscellaneous Notes* Telephone Encounter - Connie Mccain DO - 11/27/2023 1:17 PM EST He will be going to the ED. He called Marii earlier with complaint of right- sided chest pain and shortness of breath. I called in the prescription so that if there is no new pulmonary emboli then he can stop Eliquis and start Xarelto. Connie Mccain DO * Telephone Encounter - Terri Henry LPN - 11/27/2023 1:00 PM EST Received notice from pt. Insurance carrier, Eliquis is not on pts. Formulary. Now needs to be on Xarelto. Pt. Was given 30 day temporary supply. New rx needs to go to [facility]. Terri Henry LPN documented in this encounterFlower Hospital02-01-2024 Miscellaneous Notes* Telephone Encounter - Breonna Lord - 11/23/2023 11:55 AM EST Patient scheduled neuro consult * Telephone Encounter - Isabel Murphy - 11/20/2023 9:58 AM EST 1ST ATTEMPT - LM for patient/spouse to return call. When they call, please schedule neurology consult. Isabel Murphy * Telephone Encounter - Betsy Henriquez LPN - 11/17/2023 2:19 PM EST Patient is agreeable to neurology consult. Dr. Mccain- please file order. PSS- please assist patient in scheduling. Betsy Henriquez LPN * Telephone Encounter - Betsy Henriquez LPN - 11/17/2023 2:04 PM EST ----- Message from Connie Mccain DO sent at 11/17/2023 1:29 PM EST ----- Can let him know the x-ray of the femur was normal. Next step would be referral to neurology if he would be willing. documented in this encounterFlower Hospital12-07-2023 Miscellaneous Notes* Telephone Encounter - Temo Gill RN - 09/28/2023 1:33 PM EST Spoke with patients after talk with and approval to restart Revlimid. Temo Gill RN documented in this encounterFlower Hospital12-05-2023 Miscellaneous Notes* Telephone Encounter - Temo Gill RN - 09/26/2023 11:35 AM EST Called and spoke with patients - patient finally heard from [address] and shipment will come Monday. Temo Gill, LATIA documented in this encounterFlower Hospital12-01-2023 Miscellaneous Notes* Telephone Encounter - Darline Krishnan MD - 09/22/2023 10:01 AM EST I spoke with Louise, Mr. Joseph's , regarding his vaccinations. They have had trouble finding a clinic or pharmacy that is able to administer the vaccinations, specifically the COVID vaccine. They did talk with their local health department, who could administer the vaccinations but this would be an [id number] expense. Their primary care office reported to them that they are not currently administering any vaccinations. It sounds like there was some confusion regarding the COVID vaccine formulation. He requires a primary series, but not necessarily the original monovalent COVID vaccine which is no longer available. They will talk with their local pharmacy again about receiving the RSV, influenza, and bivalent COVID-19 vaccines and will call back if they continue to have difficulties. * Telephone Encounter - Isabel Dugan - 09/22/2023 9:41 AM EST Physician: Darline Krishnan Phone number where can be reached: [phone] Louise -Patients spouse Best time to call - Anytime Phone number and name of pharmacy - N/A Reason for call: Patients spouse has questions regarding the patients vaccination series. She states that they live an hour and a half away and is having a difficult time location someone to administer the vaccinations. Louise is requesting a return call to discuss this further. Isabel Hull documented in this encounterFlower Hospital11-30-2023 Miscellaneous Notes* Telephone Encounter - Isabel Murphy - 09/21/2023 3:49 PM EST Patient's spouse returned call, was advised below and confirmed appointment. Isabel Murphy * Telephone Encounter - Dina Landis - 09/21/2023 3:35 PM EST Check out comments: - Repeat CBC in one week. SCHEDULED - Resume revlimid in one week pending CBC. - Follow as scheduled otherwise. - Pt. aware to call office with any questions/concerns 1ST ATTEMPT: LM When pt returns call please confirm scheduled lab apt on 09/28 documented in this encounterFlower Hospital11-30-2023 History of Present illness Narrative* Temo Gill RN - 09/21/2023 10:41 AM EST IRB # [id number], [facility]# [id number] study entitled Phase III Study of Daratumumab/rHuPH20 (NSC- [id number]) + Lenalidomide or Lenalidomide as Post- Autologous Stem Cell Transplant Maintenance Therapy in Patients with Multiple Myeloma (MM) Using Minimal Residual Disease to Direct Therapy Duration (DRAMMATIC Study). Pt ID: [id number] Consented: 01/03/2023 Observational Consent IC Signed for Treatment Step 2: 07/22/2023 Randomized: 08/18/2023 Treatment Arm: TAC- 1 Lenalidomide C1D1:08/24/2023 Patient was here 09/21/2023 for C2D1. Patient overall feels he is doing well - some aches in his thighs - describes similarly to last cycle, but has improved. Patient labs indicated low WBC, anemia, low platelets, and low lymphocytes - reviewed to protocol for hold. However, Connie Mccain does not believe Grade 3 lymphocytes to be related to Revlimid and rather recovery of transplant and low trends.Holding for a repeat CBC , Treatment Plan: Treatment Previous Cycle Cycle Current Start Date Frequency End date Lenalidomide Cycle 1 Day 1 08/24/2023 Cycle 1 08/24/2023-09/20/2023 100% Compliant Cycle 2 09/21/2023-10/18/2023 09/21/2023 Holding first week of Cycle 2 due to labs Daily, Cycle every 28 days Clinical Trial Specific Testing Test Dates Completed Due Date Bone Marrow Biopsy CTD 07/24/2023 Baseline Step 2 [x] 07/24/2024 12 months post Step 2 [] 07/24/2025 24 months post Step 2 [] 07/24/2026 36 months post Step 2 [] 07/24/2027 48 months post Step 2 [] QOLs PRO-CTCAE 08/17/2023 (Baseline) [x] 08/24/2023 (Cycle 1) [x] 09/21/2023 (Cycle ) [x] Day 1 of every cycle Baseline Weight (08/24/2023 date) 80.7 kg kg Current Weight 83.2 kg (+2.99%) Creatinine Clearance 59.7 ml/min ECOG per ECOG- 0 Bone Marrow - Plasma Cell % Free Light Chains M Protein Date Size (mm) Date Dakota Lambda * Date Serum Urine Diagnosis 08/24/2022 20% Diagnosis 10/26/2022 11.7 43.5 Diagnosis 10/26/2022 1.12 M protein present Baseline 07/30/2023 Less than 5% Baseline 08/07/2023 4.1 2.5 Enrollment 07/31/2023 Cycle 1 0.22 0.00 09/21/2023 Cycle 2 4.7 2.4 09/21/2023 Cycle 2 0.17 0.01 Drug Accountability/Education - Completed on 09/21/2023. Patient given Cycle 2 diary. Patient did not return cycle 1 - but patient will return. Use of the study medication diary and dosing instructions were reviewed with the patient. Patient verbalizes understanding of dosing of Revlimid: Capsules should be taken whole, with water, once daily (patient takes at HS). If a dose is missed, and it has been less than 12 hours since the preceding dose, the patient should take lenalidomide as soon as the patient remembers. If it has been more than 12 hours, the patient should skip the missed dose. Patient took 28/28 pills for the cycle - determining 100% compliance. Patient receives drug from a private pharmacy - but switching due to funding - delayed, but patientheld for a week due to labs. Lenalidomide Education and Counseling completed. Patient counseled on potential exposure to lenalidomide by , engage in abstinence or use a condom when engaging in sexual contact with WOCBP, notify study doctor if female partner becomes , never share drug with anyone else, notto donate blood, semen, or sperm while taking drug and for 28 days after. Concomitant medications reviewed per protocol: Yes Patient reported changes to medication list: No changes since last visit. Current medications: Current use of anticoagulants: YES (see medications below if applicable) Anticoagulants: Eliquis 5 mg Current use of herbal preparations or medications: No Prophylactic shingles medication: Acyclovir 400 mg Current Outpatient Medications Medication Sig Start/Stop Use acyclovir (ZOVIRAX) 400 mg tablet Take 1 tablet by mouth twice daily. 05/01/2023 Prophylactic shingles ondansetron (ZOFRAN) 8 mg tablet Take 1 tablet by mouth every 8 hours as needed for nausea/vomiting. 10/26/2022 PRN Nausea clonazePAM (KLONOPIN) 0.5 mg tablet Take 0.5 mg by mouth once daily. 07/29/2023 Anxiety glimepiride (AMARYL) 4 mg tablet Take 2 capsules by mouth in AM & 1 capsule in PM. >5 years Type 2 amLODIPine (NORVASC) 5 mg tablet Take 5 mg by mouth once daily. 02/10/2021 Hypertension atorvastatin (LIPITOR) 10 mg tablet Take 10 mg by mouth once daily. 02/10/2021 Cholesterol losartan (COZAAR) 50 mg tablet Take 50 mg by mouth once daily. 02/10/2021 Hypertension Loperamide (Imodium Oral) Take 2 tablet by mouth as needed >5 years Diarrhea Sildenafil (Viagra) 50 mg tablet Take 50 mg by mouth as needed. >10 years ED Eliquis 5 mg tablet Take 1 tablet by mouth twice daily 03/23/2023 Preventative - blood thinner Melatonin 5 mg Take 1 tablet at bedtime 03/23/2023 Insomnia Revlimid 10 mg Take 1 capsule daily in the morning 08/24/2023 MM treatment No current facility-administered medications for this visit. Medical History: PAST MEDICAL HISTORY Diagnosis Date Arthritis Treated with medication Chronic diarrhea Resolved and now constipation Diabetes mellitus (HCC) Treated with medication Essential hypertension Treated with medication Mixed hyperlipidemia Treated with medication PAST MEDICAL HISTORY Diagnosis Date Arthritis Treated with medication Chronic diarrhea Resolved Malignant melanoma (HCC) On back removed - precancerous and 06/2022 non cancerous Mixed hyperlipidemia Treated with medication Multiple myeloma not having achieved remission (HCC) Treated with medication Primary hypertension Treated with medication Pulmonary embolism (HCC) Treated with medication Right bundle branch block Treated with medication Type 2 diabetes mellitus, without long-term current use of insulin (HCC) Treated with medication Surgical History: PAST SURGICAL HISTORY Procedure Laterality Date REPAIR INCISIONAL HERNIA,REDUCIBLE Resolved 8th grade SKIN BX, 1 LESION 06/2022 non cancerous Baseline Toxicities per CTCAE v. 5: All predate therapy, are chronic conditions and will not be actively followed unless they worsen during the clinical trial. Hyperglycemia; Grade 1: Start Date: >5 years PRIOR TO STUDY Drugs to Treat: Glimepiride Action Required: None Outcome: Ongoing. (Chronic) Diarrhea; Grade 1: Start Date: >5 years PRIOR TO STUDY Drugs to Treat: Imodium Action Required: None Outcome: Ongoing. Anemia; Grade 1: Start Date: Intermittent PRIOR TO STUDY 07/24/2023 RESOLVED: 08/24/2023 but Grade 1again 09/21/2023 Drugs to Treat: None. Action Required: None Outcome: Ongoing Aspartate aminotransferase decreased; Grade 1: Start Date: Intermittent PRIOR TO STUDY 07/24/2023 Drugs to Treat: None. Action Required: None Outcome: Ongoing. Alanine aminotransferase increased; Grade 1: Start Date: Intermittent PRIOR TO STUDY 07/24/2023 Drugs to Treat: None. Action Required: None Outcome: Ongoing. Insomnia; Grade 1: Start Date: Intermittent PRIOR TO STUDY 07/21/2023 Drugs to Treat: None. Action Required: None Outcome: Ongoing. Weight Loss; Grade 1: 3.5 Percent Increase since - Intentional Start Date: Intentional Loss - PRIORTO STUDY 07/21/2023 Drugs to Treat: None. Action Required: None Outcome: Ongoing. Hypophosphatemia:Start Date: PRIOR TO STUDY 08/24/2023 Drugs to Treat: None. Action Required: None Outcome: Ongoing. Bone Pain: Grade 1; Bilateral Thigh:Start Date: PRIOR TO STUDY 08/24/2023 Drugs to Treat: None. Action Required: Extra labs Outcome: Ongoing. Toxicities per CTCAE v. 5: White Blood Cell Count Decreased; Grade 2: Start Date: 09/21/2023 Drugs to Treat: None. Action Required: None Outcome: Ongoing (Connie cMcain MD does not believe this is related to Revlimid, but ratherrespiratory sickness) Platelet Count Decreased; Grade 1: Start Date: 09/21/2023 Drugs to Treat: None. Action Required: None Outcome: Ongoing (Connie Mccain MD does not believe this is related to Revlimid, but rather respiratory sickness) Lymphocyte Count Decreased; Grade 3: Start Date: Intermittent PRIOR TO STUDY 08/14/2023 Decreased 09/21/2023 Drugs to Treat: None. Action Required: None Outcome: Ongoing - (Connie Mccain MD does not believe this is related to Revlimid, but rather respiratory sickness) Patient turned in a 24 hour urine: Yes Patient knows to RTC in one week for repeat CBC. Patient knows to call in the interim for any questions or concerns. Patient has contact information for Uma Gill Research Nurse and Dr. Mccain, along with the office number. Patient meets all Criteria for Study Participation: Yes REID Bnyum, RN Clinical Research Nurse [phone] documented in this encounterFlower Hospital11-30-2023 History of Present illness Narrative* Bright Thao APRN.PATTERNMAKER [employer] - 09/21/2023 8:32 AM EST Chief Complaint Patient presents with: Established Patient HPI: Oseas Joseph is a 73 year old male who presents here today for follow up MM. Per Dr. Mccain's previous note: H/o type 2 diabetes, high cholesterol, hypertension and right bundle branch block. Patient originally presented to the emergency room at [facility] on 04/19/2022 with new onset of confusion that day which had been worsening. Laboratory work-up significant for hypokalemia. CT of the brain was unremarkable. He was admitted. During hospitalization it was noted that hehad been having diarrhea for 6 to 8 weeks. Stool studies were positive for Campylobacter, blood andlactoferrin. C. difficile was negative. CT of the abdomen pelvis on 04/21/2022 noted abnormal pericholecystic edema without gallstones. Renal cysts and colonic diverticulosis were noted. He was found to have elevation of sed rate to 39, CRP 134. His albumin was 2.3. IgA low at 37. He was discharged on azithromycin, potassium and magnesium supplement. He was seen in the outpatient setting for follow-up visit on 07/11/2022. He continued to have one episode of explosive diarrhea daily. This had been going on for about 8 months. CBC on 07/11 showed a white count of 6400. Differential was normal. Hemoglobin 14.9 g/dL. Platelet count 275,000. Chemistries significant for creatinine of 1.29 g/dL. Previously 1.13 g/dL on 04/27/2022.Calcium was 9.3 mg/dL. Total bilirubin, AST, ALT and alkaline phosphatase were normal. LDH was 181.C-reactive protein was less than 2.09. Total protein was 8.8 g/dL. Total IgG was 2462 mg/dL. IgA decreased to 28 mg/dL. IgM normal at 32 mg/dL. On protein electrophoresis, patient was found to have 2M spikes both IgG lambda by immunofixation. For spike was quantitated at 1.2 g/dL and the second was quantitated at 0.6 g/dL. Cytoplasmic and perinuclear ANCA both negative. Atypical p-ANCA negative. Patient described diarrhea as loose, eran stools sometimes explosive typically one bowel movement per day however. He had not observed any blood. Had a colonoscopy December [address] Arteaga. His appetite was normal. He had not lost weight. Denied reflux and nausea. He did get abdominal bloating associated with the diarrhea. He denied musculoskeletal pain. He denied symptoms of sensory neuropathy. He sees an team supervisor once a year for dilated exam. He has not been told he has retinopathy. Recent removal of early melanoma back. Blue nevus right ankle--required WLE--scheduled. PMR--about 15 years ago. Patient underwent colonoscopy on 09/21/2022. Preparation of the colon was fair. -One 6 mm polyp at the ileocecal valve, removed with a hot snare. Resected and retrieved. -One 5 mm polyp in the ascending colon, removed with a hot snare. Resected and retrieved. -Congested mucosa in the descending colon, at the splenic flexure, in the ascending colon and in the cecum. Biopsied. -Diverticulosis in the recto-sigmoid colon, in the sigmoid colon and in the descending colon. -Stool in the rectum, in the sigmoid colon, in the descending colon and at the hepatic flexure. Fluid aspiration performed. -The examined portion of the ileum was normal. Biopsied. Pathology: A. Ileocecal valve polyp, biopsy: -Consistent with fibrolipomatous polyp. -See comment. B. Small bowel, biopsy: -No pathologic change. C. Cecum, biopsy: -Mild melanosis coli. D. Colon, random biopsy: -Mild melanosis coli. E. Ascending colon polyp, biopsy: -Fragments of tubular adenoma. B, C, D & E - No congophilic material identified. Congo red stain with matched control is negative. ADDENDUM C & D. No congophilic material is noted in these biopsies on light and polarized microscopy. Congo Red stain with matched control was used in the evaluation of this case. He was diagnosed with pancreatic insufficiency and was to start pancreatic enzyme replacement. Patient had a venous duplex ultrasound on 12/16/2022 for right leg pain. That study demonstrated no evidence of DVT in the right leg. He developed chest pain and increasing shortness of breath. Went to the ED on 01/16/2023. PE protocol chest CT demonstrated multiple bilateral pulmonary emboli involving the distal portion of both theright and left main pulmonary arteries as well as branches of the upper and lower lobe pulmonary arteries, more prominent on the right side. Platelet count was 67,000. Patient was admitted and placedon unfractionated heparin with bolus. The next morning platelet count was 62,000. He was rotated toapixaban and discharged. Echocardiogram performed 01/17/2023 demonstrated normal LV size. There was moderate concentric LVH. Left ventricular systolic function was normal with an estimated ejection fraction at 60%. There was stage I diastolic dysfunction. The pulmonary artery systolic pressure was 58 mmHg. The global longitudinal strain was -11.5% (abnormal). The global longitudinal strain was moderately abnormal. (Previous echocardiogram 04/20/2022 demonstrated right ventricular systolic pressure estimated at 22 mmHg. Diastolic function was indeterminate. Right ventricular strain was not determined). His chest pain has improved. He is still short of breath with heavier exertion and sometimes walking from room to room he finds himself breathing heavier. He has been taking apixaban 10 mg twice daily. No bleeding issues. Previous therapy: 1) RVd. Cycle #1 began 11/09/2022. 2) Zometa. 3) ASCT. Transplant Summary: BMT Information ASCR infused on 06/02/2023 Planned Proposed Protocols: IP BMT AUTO MELPHALAN 200 Planned Preparative Regimen Drug: Melphalan Planned Mobilization Agent: G-CSF, Plerixafor Planned Stem Cell Source: Peripheral blood stem cells BMT Transplant Details # of cells: 6.16 Pt. here with spouse. I had the rash for the first four days. It was controlled with benedryl. Appetite:Good. Energy level:Eh Denies fevers. +sinus congestion-improving Mouth:denies sores Resp:occ. cough with drainage, denies sob Cardiac:denies chest pain/palpitations GI:denies abd pain, n/v, moving bowels regularly :denies dysuria/hematuria Extrem:achy/weak legs-improved Neuro:denies symptoms of neuropathy Skin:denies rashes currently Heme:denies bleeding, on eliquis The ROS is otherwise negative. Past medical history, appointments, medications, allergies reviewed. No changes. EXAM: BP 123/75 Pulse 68 Temp 36.8 C (98.2 F) Wt 83.2 kg (183 lb 8 oz) SpO2 99% BMI 25.55 kg/m APPEARANCE Well appearing, alert, in no acute distress, well-hydrated, well nourished. HEART RRR with normal S1 and S2, no murmurs LUNG clear to auscultation LYMPH NODES No cervical lymphadenopathy, No supraclavicular lymphadenopathy, and No axillary lymphadenopathy. ABDOMEN bowel sounds normoactive, soft, non-tender EXTREMITIES No edema NEURO Awake, alert and oriented x 3, Normal gait, and No involuntary motions. SKIN Skin color, texture, turgor normal, no suspicious rashes or lesions LABS: Component Latest Ref Rng & Units 08/14/2023 08/24/2023 09/21/2023 WBC 3.70 - 11.00 k/uL 6.07 6.19 2.34 (L) RBC 4.20 - 6.00 m/uL 4.01 (L) 4.20 4.16 (L) Hemoglobin 13.0 - 17.0 g/dL 12.4 (L) 13.4 12.6 (L) Hematocrit 39.0 - 51.0 % 39.2 40.1 38.5 (L) MCV 80.0 - 100.0 fL 97.8 95.5 92.5 MCH 26.0 - 34.0 pg 30.9 31.9 30.3 MCHC 30.5 - 36.0 g/dL 31.6 33.4 32.7 RDW-CV 11.5 - 15.0 % 13.6 13.0 12.3 Platelet Count 150 - 400 k/uL 233 232 124 (L) MPV 9.0 - 12.7 fL 9.2 9.3 10.6 Neut% % 68.0 70.8 63.7 Abs Neut (ANC) 1.45 - 7.50 k/uL 4.13 4.38 1.49 Lymph% % 14.5 13.9 16.2 Abs Lymph 1.00 - 4.00 k/uL 0.88 (L) 0.86 (L) 0.38 (L) Morton% % 13.5 12.8 15.0 Abs Morton <0.87 k/uL 0.82 0.79 0.35 Eosin% % 3.5 1.6 3.4 Abs Eosin <0.46 k/uL 0.21 0.10 0.08 Baso% % 0.3 0.6 1.3 Abs Baso <0.11 k/uL <0.03 0.04 0.03 Immature Gran % % 0.2 0.3 0.4 IMMATURE GRANS (ABS) <0.10 k/uL <0.03 <0.03 <0.03 NRBC /100 WBC 0.0 0.0 0.0 Absolute nRBC <0.01 k/uL <0.01 <0.01 <0.01 DTYPE Auto Auto Auto CMP/MM labs: Pending ASSESSMENT/PLAN: 1. Multiple myeloma not having achieved remission (HCC) - ICD9: 203.00, ICD10: C90.00 IgG lambda multiple myeloma. - Overall tolerating revlimid well except for rash, leg aches/weakness-although improved and grade 3 lymphocytopenia. - URI symptoms improving. No fevers. - Reviewed CBC with pt./spouse/Dr. Mccain. - CMP/MM labs pending. - Continue eliquis/acyclovir. - Monthly zometa as scheduled. - Hold revlimid d/t URI and low lymphocytes. - Repeat CBC in one week. - Resume revlimid in one week pending CBC. - Follow as scheduled otherwise. - Pt. aware to call office with any questions/concerns. The patient indicates understanding of these issues and agrees with the plan. Discussed case with Dr. Mccain who agrees with treatment plan. All documentation from previous visit of 08/24/23-Dr. Mccain was copied and pasted, documentation hasbeen reviewed and edited as necessary for today's visit. Bright Thao APRN.PATTERNMAKER APPRENTICE WOOD documented [facility] this [facility]11-21-2023 Miscellaneous Notes* Telephone Encounter - Terri Henry LPN - 09/12/2023 7:40 AM EST [employer] auth# [id number] Patient has been identified by name and date of : Yes Requested Prescriptions Pending Prescriptions Disp Refills REVLIMID 10 mg capsule [Pharmacy Med Name: Revlimid 10 MG Oral Capsule] 28 capsule 0 Sig: TAKE 1 CAPSULE BY MOUTH DAILY FOR 28 DAYS RX INSTRUCTIONS: Patient aware RX will be sent to pharmacy. No need to notify patient. Terri Henry LPN documented in this encounterFlower [facility]11-02-2023 History of Past illness Narrative* Problem Noted Date Diagnosed Date Resolved Date Pancytopenia 08/24/2023 Overview: Pancytopenia 2/2 chemotherapy. Plan: -Transfuse LR/IR blood products to maintain hgb > 7 g/dL and plts > 10 k/uL. Neupogen per protocol. documented as of this encounter (statuses as of 08/28/2023) [facility] Miscellaneous Notes* Telephone Encounter - Temo Gill RN - 08/22/2023 2:38 PM EDT Called patient and and left a voicemail for patients in regards to lab work and appointment with call back information. Temo Gill RN documented in this encounterFlower Hospital10-31-2023 Miscellaneous Notes* Telephone Encounter - Anais Hathaway LISW - 08/22/2023 10:52 AM EDT SOCIAL WORK FOLLOW UP NOTE: [facility] Date of service: August 22, 2023 Oseas Joseph is being seen for a follow up social work visit. Today's visit includes: spouse and patient TOPICS ADDRESSED: ARIADNE spoke with RN this date who reports pt will beginning Revlimid and will likelyneed assistance. RN reports pt currently has a dom with $700 remaining and will need assistance once that expires. SW spoke to pt and this date. Pt confirms needing assistance with Revlimid costs. SW discussed application process with pt and scheduled for pt to come meet with SW on ,08/24, to sign application. Pt in agreement. SW will update this note once application is complete and faxed to assistance company. PLAN: Assist with financial support applications and Continue follow up as needed F/U APPOINTMENT: PRN Assigned SW listed in Care Team tab: Yes LEONOR Byrnes-Tim documented in this [facility]10-30-2023 Miscellaneous Notes* Telephone Encounter - Temo Gill RN - 08/21/2023 11:05 AM EDT Spoke with patients - with patient present - and patient and family understand plan with Revlimid dispense and start date. Temo Gill RN documented in this [facility]10-30-2023 Miscellaneous Notes* Telephone Encounter - Betsy Henriquez LPN - 08/21/2023 9:48 AM EDT [employer] auth # [id number]. Please send electronically. Betsy Henriquez LPN documented in this [facility]10-27-2023 History of Present illness Narrative* Temo Gill RN - 08/18/2023 12:19 PM EDT Images from the original note were not included. IRB # [id number], [facility]# SWOG 1803 study entitled Phase III Study of Daratumumab/rHuPH20 (NSC- [id number]) + Lenalidomide or Lenalidomide as Post- Autologous Stem Cell Transplant Maintenance Therapy in Patients with Multiple Myeloma (MM) Using Minimal Residual Disease to Direct Therapy Duration (DRAMMATIC Study). Pt ID: [id number] Consented: 01/03/2023 Observational Consent IC Signed for Treatment Step 2: 07/21/2023 Randomized: 08/18/2023 Treatment Arm: TAC- 1 Lenalidomide C1D1:TBD Called patient at 4:48PM and talked with the patient and his for the trial randomization. Temo Gill RN August 18, 2023 documented in this encounterFlower Hospital10-18-2023 Miscellaneous Notes* Telephone Encounter - Temo Gill RN - 08/09/2023 9:23 AM EDT Spoke with patients - with patient present - and patient is agreeable to wait for repeat CBC and CMP on Monday08/14/2023. Discussed standard of care options and timeframes from bone marrow transplant. Patients questions answered at this time. Temo Gill RN documented in this encounterFlower Hospital10-17-2023 Miscellaneous Notes* Telephone Encounter - Temo Gill RN - 08/08/2023 3:05 PM EDT Called patient and and left a voicemail for patients in regards to lab work with call back information. Temo Gill RN documented in this [facility]10-12-2023 Miscellaneous Notes* Telephone Encounter - Temo Gill RN - 08/03/2023 9:52 AM EDT Called patients back to discuss labs for patient on Monday. Patients 's questions were answered at this time. Patient knows to call with any questions or concerns Temo Gill RN documented in this encounterFlower Hospital10-10-2023 History of Present illness Narrative* Connie Mccain DO - 08/01/2023 5:30 PM EDT I made them standing orders. Connie Mccain DO documented in this encounterFlower Hospital10-10-2023 History of Present illness Narrative* Temo Gill RN - 08/01/2023 8:42 AM EDT IRB # [id number], [facility]# SWOG 1803 study entitled Phase III Study of Daratumumab/rHuPH20 (NSC- [id number]) + Lenalidomide or Lenalidomide as Post- Autologous Stem Cell Transplant Maintenance Therapy in Patients with Multiple Myeloma (MM) Using Minimal Residual Disease to Direct Therapy Duration (DRAMMATIC Study). Pt ID: [id number] Consented: 01/03/2023 Observational Consent IC Signed for Treatment Step 2: 07/22/2023 Randomized: N/A Treatment Arm: N/A C1D1: N/A 07/21/2023 Weight 81.9 kg (180 lb 8 oz) Height 180.5 cm (5' 11.06) BSA 2.03 BMI 25.13 Temp 36.9 C (98.5 F) Resp 16 Pulse 80 BP 129/78 SpO2 100 % Patient was here 07/21/2023 for screening review and 07/24/2023 for bone marrow biopsy for S1803 Step2. We had to repeat the CBC for trial clearance. Patient discussed plan and the processes for the study and updated this RN during the weeks we waiting on the CBC. Patient overall feels well - other than minimal fatigue since transplant. Cycle C1D1 - Baseline Weight 80.7 kg QOL's Baseline Registration (completed) 07/24/2023 Completed Cycle CTD Last completed Baseline BMBX 07/24/2023 Due Next: 12 Month July 2024 Bone Marrow - Plasma Cell Percentage Date Diagnosis 08/24/2023 20% Baseline 07/30/2023 Less than 5% FLC Lambda Diagnosis 10/26/2022 43.5 Baseline 07/24/2023 2.5 M Protein Date Serum Urine Diagnosis 10/26/2022 1.12 M protein present Enrollment 07/31/2023 0.22 Registration Step 2 - First Randomization (Post-ASCT, Pre-Maintenance) Prior/Concurrent Therapy Criteria a. Patients must have completed ASCT within 180 days prior to registering to Step 2. BMT date: 06/02/2023 and 180 days from transplant is November 29, 2023 and that is the deadline for Step 2 Patients who enroll after ASCT may be registered to Step 1 and Step 2 concurrently. N/A b. Patients must not have received tandem transplant. Patient denies - not found in chart review. c. Patients must not have received any other maintenance therapy post-ASCT and prior to Step 2 registration. Patient denies - Masci confirmed at post- transplant visit - not foundin chart review. d. Patients must not have had progressive disease between induction and registration to Registration Step 2. (See Section 10.1b). Reviewing all below - patient has not. e. Patients must have the following performed within 60 days prior to Registration Step 2 for disease assessment: 1. Myeloma-specific tests for establishing baseline disease status (SPEP, Serum Immunofixation, Serum free light chains, 24-hour UPEP, Urine immunofixation, bone marrow aspirate/biopsy, and quantitative immunoglobulins) SPEP, UPEP, Immunoglobulins and Serum Free Light Chains 07/31/2023 Expires: 09/29/2023 Bone Marrow Aspirate/Biopsy - 07/24/2023 Expires: 09/22/2023 24-hour UPEP - 24 hour UPEP 08/18/2023 Expires: 10/17/2023 AND 2. One of the following: diagnostic quality skeletal survey, whole body CT scan, MRI, or PET. PET - No new lesions - 07/27/2023 Expires: 09/25/2023 Clinical/Laboratory Criteria f. Patients must have Zubrod Performance Status ? 2 Connie Mccain D.O. ECOG - 0 - Note 07/21/2023 g. Patients must have adequate bone marrow function as evidenced by platelets ? 75,000/mm3 and ANC ? 1,000/mm3 within 28 days prior to first randomization: 233,000 08/14/2023 Expires: 09/11/2023 h. Patients must have adequate hepatic function defined by the following within 28 days prior to first randomization: 1. Total bilirubin ? 1.5 x IULN (institutional upper limit of the norm) 0.3 mg/dL (UL - 1.95) 08/14/2023 Expires: 09/11/2023 AND 2. AST and ALT ? 3.0 x IULN 13 U/L (UL - 120) 9 U/L (UL - 162) 08/14/2023 Expires: 09/11/2023 i. Patients must have evidence of adequate renal function, as defined by creatinine clearance (CrCl) ? 30 mL/min., as measured by a 24-hour urine collection, or estimated by the Cockcroft and Gault formula, or have a serum creatinine < 2.5 mg/dL within 28 days prior to first randomization. Estimated creatinine clearance = 65 mL/min Calculate ideal body weight (IBW): Creatinine 01.19 08/14/2023 Expires: 09/11/2023 j. All ASCT-related toxicities must have recovered to ? Grade 1 (except for alopecia, fatigue and amenorrhea) prior to first randomization. Patient denies all toxicities - besides fatigue k. Mucositis and gastrointestinal symptoms must have resolved to ? Grade 1. Patient denies - not found in chart review. Chronic Diarrhea is more food based and not usually an issue - since the patient avoids these foods. l. Females of childbearing potential (FCBP) must have a negative serum or urine N/A test with a sensitivity of at least 25 mIU/mL within 10-14 days prior to registration. FCBP must agree to have a second test within 24 hours prior to starting Cycle 1. Further, FCBP must either commit to continued abstinence from heterosexual intercourse or begin TWO acceptable methods of control: one highly effective method and one additional effective method AT THE SAME TIME, at least 28 days before starting lenalidomide. FCBP must also agree to ongoing testing and must agree to not become for at least 3 months after the last dose of study treatment. A FCBP is a female who: 1) has achieved menarche (first menstrual cycle) at some point, 2) has not undergone a hysterectomy (the surgical removal of the uterus) or bilateral oophorectomy (the surgical removal of both ovaries) or 3) has not been naturally postmenopausal (amenorrhea following cancer therapy does not rule out childbearing potential) for at least 24 consecutive months (i.e., has had menses at any time during the preceding 24 consecutive months). Men must agree to use a latex condom during sexual contact with a FCBP, even if they have had a successful vasectomy, during the study treatment and for 3 months after the last dose of study treatment. Patient agrees 07/21/2023 Specimen Submission Criteria m. Patients must have Archival Specimens for MRD by NGS (see section 15.1 for additional information) or a linkable commercial sequencing to provide ID clonality. Submission must include 3-5 diagnostic bone marrow aspirate smear or FFPE recuts from bone marrow aspirate clot (bone marrow biopsy core specimens are not accepted). Submitted 07/25/2023 from [facility] n. Patients must be offered participation in specimen banking for future research. With patient s consent, specimens must be submitted as outlined in Section 15.2. Regulatory Criteria Patient consented YES - submitted optional specimen 07/24/2023 o. Patients must be informed of the investigational nature of this study and must sign and give written informed consent in accordance with institutional and federal guidelines.Patient informed at 07/21/2023 visit p. Note: For patients concurrently enrolling to Steps 1 and 2, sites need not utilize the Observation Consent and may utilize the Treatment Consent for both registration steps. N/A Current medications: Current use of anticoagulants: YES (see medications below if applicable) Anticoagulants: Eliquis 5 mg Current use of herbal preparations or medications: No Prophylactic shingles medication: Acyclovir 400 mg Current Outpatient Medications Medication Sig Start/Stop Use acyclovir (ZOVIRAX) 400 mg tablet Take 1 tablet by mouth twice daily. 05/01/2023 Prophylactic shingles ondansetron (ZOFRAN) 8 mg tablet Take 1 tablet by mouth every 8 hours as needed for nausea/vomiting. 10/26/2022 PRN Nausea clonazePAM (KLONOPIN) 0.5 mg tablet Take 0.5 mg by mouth once daily. 07/29/2023 Anxiety glimepiride (AMARYL) 2 mg tablet Take 2 capsules by mouth in AM & 1 capsule in PM. >5 years Type 2 amLODIPine (NORVASC) 5 mg tablet Take 5 mg by mouth once daily. 02/10/2021 Hypertension atorvastatin (LIPITOR) 10 mg tablet Take 10 mg by mouth once daily. 02/10/2021 Cholesterol losartan (COZAAR) 50 mg tablet Take 50 mg by mouth once daily. 02/10/2021 Hypertension Loperamide (Imodium Oral) Take 2 tablet by mouth as needed >5 years Diarrhea Sildenafil (Viagra) 50 mg tablet Take 50 mg by mouth as needed. >10 years ED Eliquis 5 mg tablet Take 1 tablet by mouth twice daily 03/23/2023 Preventative - blood thinner Melatonin 5 mg Take 1 tablet at bedtime 03/23/2023 Insomnia No current facility-administered medications for this visit. Medical History: PAST MEDICAL HISTORY Diagnosis Date Arthritis Treated with medication Chronic diarrhea Resolved and now constipation Diabetes mellitus (HCC) Treated with medication Essential hypertension Treated with medication Mixed hyperlipidemia Treated with medication PAST MEDICAL HISTORY Diagnosis Date Arthritis Treated with medication Chronic diarrhea Resolved Malignant melanoma (HCC) On back removed - precancerous and 06/2022 non cancerous Mixed hyperlipidemia Treated with medication Multiple myeloma not having achieved remission (HCC) Treated with medication Primary hypertension Treated with medication Pulmonary embolism (HCC) Treated with medication Right bundle branch block Treated with medication Type 2 diabetes mellitus, without long-term current use of insulin (HCC) Treated with medication Surgical History: PAST SURGICAL HISTORY Procedure Laterality Date REPAIR INCISIONAL HERNIA,REDUCIBLE Resolved 8th grade SKIN BX, 1 LESION 06/2022 non cancerous Baseline Toxicities per CTCAE v. 5: All predate therapy, are chronic conditions and will not be actively followed unless they worsen during the clinical trial. Hyperglycemia; Grade 1: Start Date: >5 years PRIOR TO STUDY Drugs to Treat: Glimepiride Action Required: None Outcome: Ongoing. (Chronic) Diarrhea; Grade 1: Start Date: >5 years PRIOR TO STUDY Drugs to Treat: Imodium Action Required: None Outcome: Ongoing. Lymphocyte Count Decreased; Grade 1: Start Date: Intermittent PRIOR TO STUDY 08/14/2023 Drugs to Treat: None. Action Required: None Outcome: Ongoing Anemia; Grade 1: Start Date: Intermittent PRIOR TO STUDY 07/24/2023 Drugs to Treat: None. Action Required: None Outcome: Ongoing. Aspartate aminotransferase decreased; Grade 1: Start Date: Intermittent PRIOR TO STUDY 07/24/2023 Drugs to Treat: None. Action Required: None Outcome: Ongoing. Alanine aminotransferase increased; Grade 1: Start Date: Intermittent PRIOR TO STUDY 07/24/2023 Drugs to Treat: None. Action Required: None Outcome: Ongoing. Insomnia; Grade 1: Start Date: Intermittent PRIOR TO STUDY 07/21/2023 Drugs to Treat: None. Action Required: None Outcome: Ongoing. Weight Loss; Grade 1: 3.5 Percent Start Date: Intentional Loss - PRIOR TO STUDY 07/21/2023 Drugs to Treat: None. Action Required: None Outcome: Ongoing. Patient turned in a 24 hour urine: N/A at this time Patient knows to RTC after randomization for C1D1 planning. Patient knows to call in the interim for any questions or concerns. Patient has contact information for Uma Gill Research Nurse and Dr. Mccain, along with the office number. Patient meets all Criteria for Study Participation: Yes REID Bynum, RN Clinical Research Nurse [phone] documented in this encounterFlower Hospital10-04-2023 History of Present illness Narrative* Oseas Mendez, RT(R) - 07/26/2023 10:00 AM EDT RADIOLOGY SERVICE PROGRESS NOTE SERVICE DATE: 07/26/2023 SERVICE TIME: 10:55 AM PATIENT IDENTITY VERIFICATION COMPLETED USING TWO (2) STANDARD IDENTIFIERS: Name and Date of confirmed by patient verbally FALL SCREENING: Has the patient had 2 falls in the last year or 1 fall with injury or currently using an Ambulatory Assistive Device (Walker, Cane, Wheelchair, Crutches, etc.)? No PATIENT GENDER DATA: .male ALLERGIES: Reviewed and unchanged MEDICATIONS REVIEWED: Yes PATIENT RELEVANT IMPLANT DATA REVIEWED: Not Applicable CREATININE: Creatinine Date Value Ref Range Status 07/10/2023 1.14 0.73 - 1.22 mg/dL Final 07/04/2023 1.07 0.73 - 1.22 mg/dL Final 06/27/2023 1.27 (H) 0.73 - 1.22 mg/dL Final Estimated Glomerular Filtration Rate Date Value Ref Range Status 07/10/2023 69 >=60 mL/min/1.73m Final Comment: Estimated Glomerular Filtration Rate (eGFR) is calculated using the 2020 CKD-EPI creatinine equation. This equation utilizes serum creatinine, sex, and age as parameters. The creatinine assay has traceable calibration to isotope dilution- mass spectrometry. Refer to KDIGO guidelines for clinical interpretation. In patients with unstable renal function, e.g. those with acute kidney injury, the eGFRmay not accurately reflect actual GFR. P.O.C.T. RESULTS: POC done: Yes, See Lab Tab July 26, [address] PERFORMED: No IV SITE: Ambulatory: A peripheral IV was started in the Right forearm with a Angio cath/Butterfly: 24 gauge. POST EXAM PIV STATUS: Discontinued PROCEDURE TYPE: NM INJECT: PET/CT WHOLE BODY SCAN. 9.792 mCi F18 FDG. No other medications given.. ADMINISTRATION TIME: 0848 PATIENT DISCHARGED TO: Ambulatory patient, left NM department area. A Diagnostic radioactive procedure has taken place, with no further precautions necessary other than routine body substance precautions. More information regarding radiation safety can be found usingthis link: [email or web address] SIGNATURE: SELENA [place]) PATIENT NAME: Oseas Joseph DATE: July 26, 2023 TIME: 10:55 AM PAGER/CONTACT #: documented in this encounterFlower Hospital10-02-2023 History of Present illness Narrative* Temo Gill RN - 07/24/2023 1:50 PM EDT IRB # [id number], [facility]# SWOG 1803 study entitled Phase III Study of Daratumumab/rHuPH20 (NSC- [id number]) + Lenalidomide or Lenalidomide as Post- Autologous Stem Cell Transplant Maintenance Therapy in Patients with Multiple Myeloma (MM) Using Minimal Residual Disease to Direct Therapy Duration (DRAMMATIC Study). Pt ID: [id number] IC Signed for Treatment Step 2: 07/22/2023 Randomized: N/A Treatment Arm: N/A C1D: N/A Patient baseline month Bone Marrow Biopsy Aspirate Lab Collected: 07/24/2023 Drawn at 12:45 PM Shipped to [employer] - Sent Fedex - [id number] Shipped 1 EDTA 3.48 mL - not processed. [facility] [place]. Patient - Baseline - Bone Marrow Aspirate - Optional Labs Collected: 07/24/2023 Drawn at 12:45 PM Shipped to [employer] - Sent Fedex - [id number] Shipped 2 Green Top Sodium Heparin 10 mL - not processed. [facility] [place]. Patient to RTC 07/27/2023 for PET at [place] Temo Gill RN [phone] documented in this encounterFlower Hospital10-02-2023 Procedure note* Connie Mccain DO - 07/24/2023 12:57 PM EDTAssociated Order(s): BONE MARROW BIOPSY Post-Procedure Diagnose(s): Examination of participant in clinical trial; Multiple myeloma not having achieved remission (HCC) BEDSIDE PROCEDURE NOTE BONE MARROW BIOPSY Performed by: Connie Mccain DO Authorized by: Connie Mccain DO Where was Patient When this Procedure was Performed [facility] Ambulatory Informed Consent Consent Obtained: Written Topmost Protocol A moment to CARE was completed. SIGN IN Personnel directly involved with the procedure wore the appropriate PPE. Special Equipment: Yes ([employer] biopsy system) Patient/Surrogate Stated/Verified: Patient name, Date of , Relevant allergies and Intended procedure TIME OUT Intended patient and procedure match the source document(s). Consent documented and matches the intended procedure. No relevant labs, photos, and/or imaging studies were applicable for review. Correct side/site marked and visible. No medications required for procedure. Fire risk assessed and interventions discussed. No implant(s) inserted. Pre-procedure Details: The area was prepped with povidone Iodine (Betadine) and allowed to dry. A sterile partial body drape was applied following the usual aseptic technique. Medications: Local Anesthesia (see MAR): Lidocaine 1% Procedure Details: Patient Position: Left lateral decubitus Aspiration Laterality: Unilateral Aspiration Site: Right posterior superior iliac crest Biopsy Laterality: Unilateral Biopsy Site: Right posterior sperior iliac crest (Needle repositioned for core biopsy) Pressure dressing applied to Bone Marrow site(s). Hemostasis maintained. Post-procedure Details: Patient tolerated the procedure well with no immediate complications Estimated Blood Loss: scant Specimens Sent: bone marrow analysis, DNA extraction, flow cytometry and bone marrow chromosome analysis (Extra tubes for clinical trial--Two heparinized and one EDTA.) Teaching Complete: Bone Marrow Biopsy Post-procedure teaching complete Post-procedure care was reviewed and explained. Patient instructed to communicate complaints of redness, swelling, increased or unresolved pain, bleeding chills, bruising, and/or fever. Patient verbalized understanding. SIGN OUT No instruments, equipment or retained foreign bodies applicable. SIGNATURE: Connie Mccain DO PATIENT NAME: Oseas Joseph DATE: July 24, 2023 TIME: 12:57 PM documented in this encounterFlower Hospital10-02-2023 Nurse Note* Flor Canales LPN - 07/24/2023 12:39 PM EDT Pt discharged to home with after BMBX with dry sterile dressing in place. No drainage noted. Post-procedure care reviewed with patient. Pt to call with any complaints of redness, swelling, increased or unresolved pain, bleeding, chills, bruising, and/or fever. Pt verbalized understanding. Yazan FREEMAN documented in this encounterFlower Hospital09-18-2023 History of Present illness Narrative* Darline Krishnan MD - 07/10/2023 2:00 PM EDT INFECTIOUS DISEASE BONE MARROW POST TRANSPLANT EVALUATION Patient is seen at the request of Dr. Earl Simpson for my opinion regarding post-BMT vaccinations. My final recommendations will be communicated back to the requesting physician by way of shared medial record. Subjective CHIEF COMPLAINT / REASON FOR VISIT I was asked to see Mr. Oseas Joseph by Earl Simpson MD for my opinion regarding post-stem cell transplantation vaccinations and infectious disease care. My recommendations will be communicated back by way of the shared medical record. HISTORY OF PRESENT ILLNESS Mr. Oseas Joseph is a 73 year old male being evaluated for post-stem cell transplantation infectious disease care. Mr. Joseph has a history of multiple myeloma, for which he underwent autologous stem cell transplantation on 06/02/2023. He received melphalan conditioning. He did have nausea and vomiting, which was complicated by an acute kidney injury which improved with hydration. He was discharged on 06/20/2023. 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 [place] Vaccine History: Immunization History Administered Date(s) Administered COVID-19 original vaccine, age 12+ yr, monovalent (PFIZER-BIONTECH - [place] TOP) 05/05/2022 COVID-19 original vaccine, full dose, monovalent (MODERNA) 10/23/2020 12/24/2020 01/20/2021 09/27/2021 10/23/2021 COVID-19 vaccine, age 12+ yr, bivalent (PFIZER-BIONTECH) 11/01/2022 influenza (HD-IIV4) vaccine, age 65+ yr, high dose, quadrivalent, PF (FLUZONE HIGH-DOSE) 11/01/2022 influenza (IIV3) vaccine, trivalent (AFLURIA, FLULAVAL, FLUVIRIN, FLUZONE) 08/14/2013 influenza (IIV4) vaccine, age 6 mo - 64 yr, quadrivalent, PF (AFLURIA, FLUARIX, FLULAVAL, FLUZONE) 08/30/2017 08/17/2018 08/16/2019 08/12/2020 influenza (IIV4) vaccine, quadrivalent (AFLURIA, FLULAVAL, FLUZONE) 08/24/2016 novel influenza (G3O6-39) vaccine, PF 09/04/2009 pneumococcal (PCV13) vaccine, 13 valent (PREVNAR 13) 08/30/2017 pneumococcal (PPV23) vaccine, 23 valent (PNEUMOVAX 23) 08/17/2018 tetanus diphtheria pertussis (Tdap) vaccine, age 7+ yr (ADACEL, BOOSTRIX) 05/05/2022 MEDICATIONS Current antibiotics: Acyclovir Current immunomodulators: None (Not in a hospital admission) Current Facility-Administered Medications Medication Dose Route Frequency perflutren lipid microspheres 1.3 mL in NaCl (PF) 0.9% 10 mL injection (DEFINITY) INTRAVENOUS DIRECTED PRN sodium chloride 0.9 % (flush) 10 mL (BD POSIFLUSH) 10 mL INTRAVENOUS DIRECTED PRN PAST MEDICAL HISTORY Diagnosis Date Arthritis Chronic diarrhea Malignant melanoma (HCC) Mixed hyperlipidemia Multiple myeloma not having achieved remission (HCC) 10/26/2022 Other hyperlipidemia 04/17/2023 Primary hypertension 04/17/2023 Pulmonary embolism (HCC) Right bundle branch block 04/17/2023 Type 2 diabetes mellitus, without long-term current use of insulin (HCC) 04/17/2023 PAST SURGICAL HISTORY Procedure Laterality Date REPAIR INCISIONAL HERNIA,REDUCIBLE 8th grade SKIN BX, 1 LESION 06/2022 Social History Tobacco Use Smoking status: Never Smokeless tobacco: Never Vaping Use Vaping Use: Never used Substance Use Topics Alcohol use: Yes Comment: social Drug use: Never FAMILY HISTORY Problem Relation Age of Onset Diabetes Mother Hypertension Mother Renal Disease Mother Hypertension Father Diabetes Father Hypertension Sister Diabetes Sister No Known Problems Sister No Known Problems Sister No Known Problems Sister No Known Problems Sister Heart Sister Hypertension Brother Diabetes Brother Hyperlipidemia Brother Heart Brother Hypertension Maternal Grandmother Diabetes Maternal Grandmother Colon Cancer Paternal Grandmother Hypertension Paternal Grandfather Allergies As of Date: 07/10/2023 (No Known Allergies) Fully Assessed 07/10/2023 REVIEW OF SYSTEMS: All other systems were reviewed and are negative other than what was noted in the HPI. Objective PHYSICAL EXAMINATION: BP 124/65 Pulse 79 Temp 36.5 C (97.7 F) Resp 20 SpO2 100% General: Alert, oriented, no acute distress. ENT: Moist mucous membranes, anicteric. Eyes: Nonerythematous, non-irritated. Lungs: Breathing comfortably on room air. Skin: No rashes or lesions noted. Psych: Euthymic. Extremities: No peripheral edema noted. DATA: Diagnostic Tests Reviewed for Today's Visit: Most recent labs and imaging. LABS: CBC: Lab Results Component Value Date HB 11.1 07/10/2023 HCT 35.1 07/10/2023 WBC 5.98 07/10/2023 AutoDiff: Lab Results Component Value Date PLT 236 07/10/2023 NEUTP 61.8 07/10/2023 ABSNEUT 3.69 07/10/2023 LYMPHP 10.2 07/10/2023 ABSLYMPH 0.61 07/10/2023 ABSMONO 0.77 07/10/2023 ABSEOSIN 0.84 07/10/2023 BASOP 0.8 07/10/2023 ABSBASO 0.05 07/10/2023 CMP: Lab Results Component Value Date ALB 4.3 07/10/2023 CA 9.2 07/10/2023 TBILI 0.3 07/10/2023 ALKPHOS 47 07/10/2023 AST 14 07/10/2023 GLUC 124 07/10/2023 BUN 18 07/10/2023 CREAT 1.14 07/10/2023 NA 142 07/10/2023 K 4.3 07/10/2023 CHLOR 110 07/10/2023 CO2 22 07/10/2023 ANION 10 07/10/2023 ALT 10 07/10/2023 APTT 24.8 08/08/2022 INR 1.0 08/08/2022 IgG: IgG (mg/dL) Date Value 05/03/2023 817 04/17/2023 823 04/11/2023 816 03/07/2023 906 02/22/2023 774 02/15/2023 968 01/18/2023 1,319 01/03/2023 1,728 12/21/2022 1,749 12/06/2022 1,828 11/16/2022 2,113 10/26/2022 2,650 08/08/2022 2,508 HBA1C: Hemoglobin A1C Date Value Ref Range Status 03/10/2023 7.8 (H) 4.3 - 5.6 % Final Comment: [place] [employer] guidelines indicate that patients with HgbA1c in the range 5.7-6.4% are at increased risk for development of diabetes, and intervention by lifestyle modification may be beneficial. HgbA1c greater or equal to 6.5% is considered diagnostic of diabetes. Impression/Recommendations #1 Multiple myeloma s/p autologous stem cell transplantation on 06/20/2023 Routine vaccinations per guidelines to begin. The presence or absence of GVHD does not alter the following timeline (Bone Marrow Transplantation 2009, 44, 521-528). Immunization of recipients of bothautologous and allogeneic hematopoietic cell transplant recipients should begin approximately 3 - 6months after transplantion. The following recommendations are based on international guidelines, with some modification for local practices. Biol Blood Marrow Transplant. 2009;15(10):1143. Immunization should not be delayed in the presence of active GVHD, but it may be prudent to measure specific antibody levels after vaccination series completed to determine if seroconversion has occurred and to guide additional booster immunizations. MMR should NOT be given in the presence of GVHD or immunosuppression, or if immunity is already demonstrated by titers. The guidelines recommend to test measles serologies before contemplating MMR, but otherwise do not specifically recommend testing other serologies prior to beginning the following vaccinations. Date of HSCT: 06/20/2023 Months from HSCT 3 6 8 10 12 24 Approximate month & year September Inactivated influenza vaccine every Fall Autologous COVID-191 Prevnar-202 Hib3 Tdap4 Vaqta + Heplisav-B5 Polio7 Prevnar-20 Hib Td8 Heplisav-B5 Polio Prevnar-20 Hib Td Polio Cjzwnjku95 Vaqta5 Shingrix MMR13 Phlbnae27 1Administer 3-dose primary bivalent mRNA COVID-19 vaccine series; Pfizer: 0, 21, 49 days, followed by bivalent booster at least 2 months later 2Prevnar-20 = 20-valent conjugated pneumococcal vaccine 3Hib = Haemophilus influenzae conjugate vaccine 4Tdap = tetanus toxoid, diphtheria toxoid & acellular pertussis vaccine 5Vaqta (hepatitis A virus vaccine) and Heplisav-B (hepatitis B virus vaccine) 7Polio = inactivated polio vaccine 8Td = tetanus toxoid & diphtheria toxoid 9MenB = Meningococcal group B vaccine (Bexsero) 10MenACWY = MenQuadFi (MenACWY-TT) 11Shingrix = Recombinant Zoster Vaccine. Give if Varicella Zoster antibody is positive and patient is ? 19 years 13MMR = gdpjpcx-swrtd-gsghzci. If measles antibody is unprotective, no ongoing GVHD, not on immunosuppressive medications & has not received IVIG in the preceding 8-11 months 14Varivax = varicella zoster (Chicken pox) vaccine. If varicella zoster antibody is negative, no ongoing GVHD, not on immunosuppressive medications & has not received IVIG in the preceding 8-11 months. May administer Shingrix 8 weeks following Varivax. In addition to the above schedule, if patient is planning to travel out of the [place], we recommend scheduling a visit in an International Travel Clinic several months in advance. There is no limit to the number of volume of vaccines an adult patient may receive in a single visit. Injection sites must be by 1 inch. Adults may receive intramuscular vaccines in the anterolateral aspect of the thigh. After completion of vaccination series, consider monitoring long-term survivors of HSCT for response to vaccinations, and durability of vaccine responses, particularly if vaccinations initiated during GVHD: Hepatitis A IgG Hepatitis B Surface Ab Pneumococcus Tetanus Diphtheria Polio (if given) Measles (if given) Safe Living After Transplant Prevention of infections by direct contact: hand washing, avoid walking barefoot on the beach, use insect repellent in the summer, gloves for gardening, no piercings or tattoos. Prevention of respiratory illness: hand washing, avoid sick contacts, avoid smoke exposure. Avoid construction sites, birds, plant and soil, chicken coops, caves. No cleaning bird or cat litter. Water safety: no well water, no hot tubs, no drinking water from lakes or swimming pools. Food safety: no soft cheeses, no unpasteurized cheeses, no raw eggs, no raw meat, or raw poultry. Peel fruits and vegetables, avoid food sitting outside refrigerator at room temperature for a long time. Animal: wash hands after contact, no contact with sick animals, don't pet stray animals, avoid bites or scratches & report immediately to medical care, no reptiles, rodents, kittens, chicks or ducklings, monkeys. No cleaning pets. Travel: evaluation by travel clinic if foreign travel considered. I spent a total of 60 minutes on the date of the service which included preparing to see the patient, [id number] patient care, completing clinical documentation, and counseling and educating the patient/family/caregiver. Darline Krishnan MD documented in this encounterFlower Hospital09-18-2023 Instructions* Patient Instructions* Darline Krishnan MD - 07/10/2023 1:44 PM EDT Post Bone Marrow Transplant Vaccinations Date of HSCT: 06/20/2023 Months from HSCT 3 6 8 10 12 24 Approximate month & year September Inactivated influenza vaccine every Fall Autologous COVID-191 Prevnar-202 Hib3 Tdap4 Vaqta + Heplisav-B5 Polio7 Prevnar-20 Hib Td8 Heplisav-B5 Polio Prevnar-20 Hib Td Polio Woprdmkb66 Vaqta5 Shingrix MMR13 Cvomlmp37 1Administer 3-dose primary bivalent mRNA COVID-19 vaccine series; Pfizer: 0, 21, 49 days, followed by bivalent booster at least 2 months later 2Prevnar-20 = 20-valent conjugated pneumococcal vaccine 3Hib = Haemophilus influenzae conjugate vaccine 4Tdap = tetanus toxoid, diphtheria toxoid & acellular pertussis vaccine 5Vaqta (hepatitis A virus vaccine) and Heplisav-B (hepatitis B virus vaccine) 7Polio = inactivated polio vaccine 8Td = tetanus toxoid & diphtheria toxoid 9MenB = Meningococcal group B vaccine (Bexsero) 10MenACWY = MenQuadFi (MenACWY-TT) 11Shingrix = Recombinant Zoster Vaccine. Give if Varicella Zoster antibody is positive and patient is ? 19 years 13MMR = byyjsnk-etxhx-weeckov. If measles antibody is unprotective, no ongoing GVHD, not on immunosuppressive medications & has not received IVIG in the preceding 8-11 months 14Varivax = varicella zoster (Chicken pox) vaccine. If varicella zoster antibody is negative, no ongoing GVHD, not on immunosuppressive medications & has not received IVIG in the preceding 8-11 months. May administer Shingrix 8 weeks following Varivax. documented in this encounterFlower Hospital09-15-2023 History of Present illness Narrative* Benjamin Mott MD - 07/07/2023 1:09 PM EDT Oseas Joseph Referred by: Earl Simpson [id number] [facility] [id number] 07/07/2023 CC: Testis changes HPI: 73 year old, male presents for evaluation of testis changes. Pt has been on chemo for 11 months. Pt has been active in his care and noticed a bulge to the left side of his abd, and changes in his testicle appearance. An US was done by another provider. 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 Genitourinary history: Hx Mumps orchitis, trauma, or undescended testis: none Hx stone disease: none Hx UTI/prostatitis/epididimitis/STI: none ROS: Urinary sx: nocturia. Hematuria: none Review: Daytime frequency: Q 5-6 Hrs; Night time frequency: 4X - restless sleeper, snores Irritative (STORAGE) symptoms: - Bothersome frequency: Yes, at night - Urgency: No - Incontinence: Stress No / Urge No Obstructive symptoms: - Force of stream Good - Hesitancy Yes , sometimes - Intermittency: Yes , sometimes - Straining: No - Incomplete emptying: No - Double voiding: No - Postvoid dribbling: No Current Urinary Status: - Indwelling catheter: No - Current intermittent Catheterization: No - Gross hematuria: No - UTI: No PAST MEDICAL HISTORY Diagnosis Date Arthritis Chronic diarrhea Malignant melanoma (HCC) Mixed hyperlipidemia Multiple myeloma not having achieved remission (HCC) 10/26/2022 Other hyperlipidemia 04/17/2023 Primary hypertension 04/17/2023 Pulmonary embolism (HCC) Right bundle branch block 04/17/2023 Type 2 diabetes mellitus, without long-term current use of insulin (HCC) 04/17/2023 PAST SURGICAL HISTORY Procedure Laterality Date REPAIR INCISIONAL HERNIA,REDUCIBLE 8th grade SKIN BX, 1 LESION 06/2022 Current Outpatient Medications Medication Sig apixaban (ELIQUIS) 5 mg tab(s) Take 1 tablet by mouth twice daily. glimepiride (AMARYL) 2 mg tablet Take 1 tablet by mouth daily with breakfast. Take 2 mg twice a day. May increase to 4mg BID if your PCP requests so. melatonin 3 mg tablet Take 2 tablets by mouth at bedtime as needed for for insomnia. acyclovir (ZOVIRAX) 400 mg tablet Take 1 tablet by mouth twice daily. ondansetron (ZOFRAN) 8 mg tablet Take 1 tablet by mouth every 8 hours as needed for nausea/vomiting. clonazePAM (KLONOPIN) 0.5 mg tablet Take 0.5 mg by mouth once daily. amLODIPine (NORVASC) 5 mg tablet Take 5 mg by mouth once daily. atorvastatin (LIPITOR) 10 mg tablet Take 10 mg by mouth once daily. losartan (COZAAR) 50 mg tablet Take 50 mg by mouth once daily. Current Facility-Administered Medications Medication Dose Route Frequency perflutren lipid microspheres 1.3 mL in NaCl (PF) 0.9% 10 mL injection (DEFINITY) INTRAVENOUS DIRECTED PRN sodium chloride 0.9 % (flush) 10 mL (BD POSIFLUSH) 10 mL INTRAVENOUS DIRECTED PRN Allergies: Patient has no known allergies. Family Hx: Denies family history of genitourinary malignancy Social History Tobacco Use Smoking status: Never Smokeless tobacco: Never Vaping Use Vaping Use: Never used Substance Use Topics Alcohol use: Yes Comment: social Drug use: Never Review of Systems: All other systems reviewed and noncontributory PE: vitals: see above General: Well masculinized, well nourished male Resp: normal effort, no excursion Abdomen: soft, non-distended Inguinal: No lesions, adenopathy, or hernias Phallus: normal, circumcised, no lesions Meatus: orthotopic, patent, no discharge Scrotum: no lesions, normal rugae. Spermatocele. Testes: Descended, nontender, and no masses bilaterally Hernia noted to left groin. URINE POC No results found for this basename: uglucpoc,ubilipoc,uketonpoc,usgpoc,uhbpoc,uphpoc,upropoc,uuropoc ,unitpoc,uwbcpoc,ucolpoc,uclarpoc ASSESSMENT/PLAN: 1. Non-recurrent bilateral inguinal hernia without obstruction or gangrene - ICD9: 550.92, ICD10: K40.20 (primary diagnosis) 2. Spermatocele of epididymis, unspecified - ICD9: 608.1, ICD10: N43.40 Large left spermatocele, not bothersome Left moderate reducible inguinal hernia Small right inguinal hernia No intervention indicated due to lack of bother RTC PRN Benjamin Mott MD Associate Staff, Department of Urology [facility] documented in this encounterFlower Hospital09-05-2023 Miscellaneous Notes* Telephone Encounter - Florence Momin RN - 06/27/2023 1:[address] informed of Dr. Mccain's response, stated understanding. Florence Momin RN * Telephone Encounter - Connie Mccain DO - 06/27/2023 1:02 PM EDT I do not recommend that. The dose of Revlimid given in the maintenance setting is different than inthe treatment setting. We will have to see what randomization on trial shows as well. Connie Mccain DO * Telephone Encounter - Florence Momin RN - 06/27/2023 10:48 AM EDT Patient and stated they were informed by [facility] that even though patient is not currentlyon Revlimid, he should continue getting his refills for the medication so he has the medication on hand. Typically we do not stock pile medications, so this nurse reached out to research nurse to discuss. Spoke to Temo who stated it is possible that patient will go back on Revlimid but patient needs to be randomized for the clinical trial prior to restarting. It could also be two months prior to patient restarting treatment. This nurse will make Dr. Mccain aware of the situation and will go from there. Florence Momin RN documented in this encounterFlower Hospital08-30-2023 Instructions* Patient Instructions* Amber Landis APRN.CNP - 06/21/2023 10:49 AM EDT Restart your Eliquis. Ok for sexual activity. Increase your glimeperide to 2mg twice a day. Ok to increase to 4mg twice a day if your PCP says its ok. Get your labs done locally on Monday morning. Come back to [facility] on 07/[address] Simpson to discuss remission status and maintenance therapy. documented in this encounterFlower Hospital08-30-2023 History of Present illness Narrative* Amber Landis APRN.CNP - 06/21/2023 9:30 AM EDT Blood and Marrow Transplant Program Patient: Oseas Joseph : 1950 Date of service: June 21, 2023 CC: Post BMT appointment Date of discharge: 06/14/2023 Transplant physician: Earl Simpson M.D. Accompanied today by: , Louise HPI: Oseas Joseph is here for discharge follow up after autologous transplant for Myeloma. Patient denies nausea, vomiting, diarrhea, constipation, skin rash, shortness of breath, cough, fever, headache, burning or itching eyes, dry mouth. Patient reports feeling well and recovering. They had questions regarding resuming sexual activity, eliquis, and glimepiride. ROS: GENERAL: No fever or chills. HEENT: No headache, nose bleed, mouth pain, or sore throat. RESPIRATORY: No cough or shortness of breath. CARDIOVASCULAR: No chest pain, palpitations, or leg swelling. GI: Eating, drinking, and taking pills adequately; no difficulty swallowing, abdominal discomfort, blood in stools, black stools, or diarrhea. : No discomfort with voiding or gross blood in urine. MUSCULOSKELETAL: No pain. SKIN: No rash or itching. Complete 10 point ROS was otherwise negative. Transplant Summary: BMT Information ASCR infused on 06/02/2023 Planned Proposed Protocols: IP BMT AUTO MELPHALAN 200 Planned Preparative Regimen Drug: Melphalan Planned Mobilization Agent: G-CSF, Plerixafor Planned Stem Cell Source: Peripheral blood stem cells BMT Transplant Details # of cells: 6.16 Medications: glimepiride (AMARYL) 2 mg tablet^Take 1 tablet by mouth daily with breakfast. Take 2 mg daily with breakfast until instructed to increase by your outpatient team.^Disp: ^Rfl: apixaban (ELIQUIS) 5 mg tab(s)^Take 1 tablet by mouth twice daily. Do not resume until told to do so by outpatient provider^Disp: 60 tablet^Rfl: 11 melatonin 3 mg tablet^Take 2 tablets by mouth at bedtime as needed for for insomnia.^Disp: ^Rfl: acyclovir (ZOVIRAX) 400 mg tablet^Take 1 tablet by mouth twice daily.^Disp: 60 tablet^Rfl: 5 sodium chloride 0.9 %, flush, (BD POSIFLUSH) syringe^Inject 10 mL intravenously once daily. BMT Patient. Flush each lumen daily.^Disp: 300 mL^Rfl: 1 ondansetron (ZOFRAN) 8 mg tablet^Take 1 tablet by mouth every 8 hours as needed for nausea/vomiting.^Disp: 30 tablet^Rfl: 2 clonazePAM (KLONOPIN) 0.5 mg tablet^Take 0.5 mg by mouth once daily.^Disp: ^Rfl: amLODIPine (NORVASC) 5 mg tablet^Take 5 mg by mouth once daily.^Disp: ^Rfl: atorvastatin (LIPITOR) 10 mg tablet^Take 10 mg by mouth once daily.^Disp: ^Rfl: losartan (COZAAR) 50 mg tablet^Take 50 mg by mouth once daily.^Disp: ^Rfl: Allergies: ALLERGIES No Known Allergies PAST MEDICAL HISTORY Diagnosis Date Arthritis Chronic diarrhea Malignant melanoma (HCC) Mixed hyperlipidemia Multiple myeloma not having achieved remission (HCC) 10/26/2022 Other hyperlipidemia 04/17/2023 Primary hypertension 04/17/2023 Pulmonary embolism (HCC) Right bundle branch block 04/17/2023 Type 2 diabetes mellitus, without long-term current use of insulin (HCC) 04/17/2023 ECOG PERFORMANCE STATUS: 1- Restricted in physically strenuous activity. Carries out light duty. Karnofsky Performance Status Scale: 80 - Normal activity with effort, some signs or symptoms of disease. PE: There were no vitals taken for this visit. General appearance: Well appearing, alert, in no acute distress, well-hydrated, well nourished. Skin: Skin color, texture, turgor normal, no suspicious rashes or lesions Head: Normocephalic, no masses, lesions, tenderness or abnormalities Eyes: Anicteric sclera. Ears: External ears normal. Nose/Sinuses: Nares normal Oropharynx: Lips, mucosa, and tongue normal, teeth and gums normal, oropharynx normal Neck: Supple, no adenopathy Back: no pain to palpation Lungs: Lungs clear to auscultation. No wheezing, rhonchi, rales Heart: RRR without murmur, gallop, or rubs. Abdomen: Abdomen soft, non-tender. Bowel sounds normal. No masses, organomegaly Extremities: No deformities, edema, skin discoloration, clubbing or cyanosis. Good capillary refill. Musculoskeletal: No joint swelling, deformity, or tenderness Peripheral pulses: Capillary refill <2secs, strong peripheral pulses Neuro: Gait normal. Labs: Latest Reference Range & Units 06/21/23 09:40 Sodium 136 - 144 mmol/L 142 Potassium 3.7 - 5.1 mmol/L 4.3 Chloride 97 - 105 mmol/L 108 (H) CO2 22 - 30 mmol/L 25 BUN 9 - 24 mg/dL 16 Creatinine 0.73 - 1.22 mg/dL 1.13 Glucose 74 - 99 mg/dL 129 (H) Protein, Total 6.3 - 8.0 g/dL 6.2 (L) Calcium 8.5 - 10.2 mg/dL 9.3 Magnesium 1.7 - 2.3 mg/dL 1.9 Albumin 3.9 - 4.9 g/dL 3.9 Bilirubin, Total 0.2 - 1.3 mg/dL 0.2 Alkaline Phosphatase 38 - 113 U/L 54 ALT 10 - 54 U/L 15 AST 14 - 40 U/L 13 (L) Anion Gap 9 - 18 mmol/L 9 eGFR >=60 mL/min/1.73m 69 WBC 3.70 - 11.00 k/uL 4.77 RBC 4.20 - 6.00 m/uL 3.22 (L) Hemoglobin 13.0 - 17.0 g/dL 10.1 (L) Hematocrit 39.0 - 51.0 % 29.9 (L) Platelet Count 150 - 400 k/uL 318 MCV 80.0 - 100.0 fL 92.9 MCH 26.0 - 34.0 pg 31.4 MCHC 30.5 - 36.0 g/dL 33.8 MPV 9.0 - 12.7 fL 9.9 RDW-CV 11.5 - 15.0 % 15.1 (H) DTYPE Manual Neut% % 70.0 Abs Neut (ANC) 1.45 - 7.50 k/uL 3.34 Lymph% % 8.0 Abs Lymph 1.00 - 4.00 k/uL 0.38 (L) Morton% % 16.0 Abs Morton <0.87 k/uL 0.76 Eosin% % 0.0 Abs Eosin <0.46 k/uL 0.00 Baso% % 1.0 Abs Baso <0.11 k/uL 0.05 [place]% % 3.0 Myelo% % 2.0 NRBC /100 WBC 0.0 Absolute nRBC <0.01 k/uL <0.01 Red Cell Morph Reviewed: see results of individual morphologies Platelet Estimate Adequate Basophilic Stippling Occasional Polychromasia Slight Ovalocytes Few Tear Drop Few Left Shift Present (H): Data is abnormally high (L): Data is abnormally low Assessment/Plan: 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 No longer having diarrhea. Patient may resume sexual activity. Pancytopenia due to antineoplastic chemotherapy, resolved - counts improving post autologous stem cell transplant - labs weekly At risk for infection due to immunosuppression/immunodeficiency - increased risk of viral reactivation post autologous stem cell transplant - continue acyclovir 400mg BID - follow up with infectious disease at the one month f/u - monitor temperature twice daily, notify team for temperature > or = 100.4 At risk for fluid and electrolyte imbalance - Estimated Creatinine Clearance: 73.5 mL/min (based on SCr of 0.99 mg/dL). - encouraged patient to drink 2 liters caffeine free fluid daily - monitor electrolytes weekly and supplement as neede Chronic diarrhea, resolved -Chronic diarrhea at baseline, intermittently uses imodium. >cdiff negative 06/05 Plan: -imodium PRN -currently well controlled Pulmonary embolism (Diagnosed with PE in December 2022. On AC with apixaban 5mg BID. -apixaban held this admission due to severe thrombocytopenia -Restart apixaban when PLT's increase above 50 : RESTART Type 2 diabetes mellitus, without long-term current use of insulin ([facility]) 04/17/2023 Yes Home medication: glimeperide -Hold glimeperide while admitted. --> resume glimeperide at 2mg daily due to recent KYE and recovering kidney function. Advise patient to increase to 2mg BID. May increase to 4mg BID by PCP if needed. I spent a total of 60 minutes on the date of the service which included preparing to see the patient, [id number] patient care, completing clinical documentation, obtaining and/or reviewing separately obtained history, performing a medically appropriate examination, counseling and educating the pat ient/family/caregiver, ordering medications, tests, or procedures, independently interpreting results (not separately reported), communicating results to the patient/family/caregiver, and care coordination (not separately reported). An opportunity for patient to ask questions was provided. Understanding of the information given inthis visit was stated, and patient is in agreement with the recommendations as explained here. Follow up: 06/28 for hydration. 07/10 Dr. Simpson. Amber Landis APRN.[employer] documented in this encounterFlower [facility] History of Present illness Narrative* Lucinda Sarabia RN - 06/19/2023 3:03 PM EDT Patient seen in treatment area. Doing well, labs ok, Pt reports diarrhea is better, is taking immodium as directed too. Eating and drinking well. Still tired. Labs reviewed, poc reviewed, questions answered. Pt to return on for appt with provider and labs. [facility] History of Present illness Narrative* Judie Robbins RN - 06/19/2023 1:45 PM EDT [id number] Ofelia JEFFERYCC of patient's arrival to infusion. [facility] in [facility]23 Miscellaneous Notes* Telephone Encounter - Karen Gonzalez RN - 06/16/2023 4:04 PM EDT Pt called regarding Nico Joseph. Pt had an episode of loose semi formed stool at midnight and 2 episodes today. Pt reports it hits his so quick that he didn't even have time to make it to the bathroom. She denies fever, mucous or blood in stool. She denies foul smell. He was checked for C-dff on 06/05 it was negative at that time. She has given him 2 Imodium at midnight and one after each BM today. He has his follow up appt on Monday. Dr Simpson reports pt should take 2 Imodium aftereach BM max of 8 pills per day. Reinforced if symptoms get worse or have any concerns they can callthe fellow environmental property assessor or be evaluated locally. Pt verbalized understanding. Pt has follow up appoi ntment at [facility] on Monday. Karen Gonzalez RN June 16, 2023 4:17 PM documented in this encounterFlower [facility]08-23-[facility]23 History of Present illness Narrative* Lucinda Sarabia RN - 06/14/2023 3:00 PM EDT AMBULATORY PATIENT EDUCATION NOTE TOPIC: SURVIVAL SKILLS: Blood Pressure Monitoring Complication Prevention Diet Fatigue Management Safety Precautions Symptom Management LIFE STYLE CHANGES: Diet, Exercise, and Safety Precautions HEALTH PROMOTION: Complication prevention Follow up management READINESS TO LEARN COGNITIVE ABILITY: Alert and oriented MOTIVATION TO LEARN: Eager Interested FAMILY SUPPORT: High - Very involved in pt care INSTRUCTION PROVIDED TO: Patient and Spouse PATIENT LEARNS BEST BY: Individual Instruction Written Instruction - Hand-outs Verbal Instruction FACTORS AFFECTING LEARNING: None PHYSICAL LIMITATIONS AFFECTING LEARNING: None LEARNING RESPONSE DIAGNOSIS: Multiple Myeloma METHOD OF INSTRUCTION: Individual instruction Written instruction - handouts Verbal instruction PATIENT / FAMILY RESPONSE: Verbalizes understanding of: INFECTION MANAGEMENT- Signs and symptoms of an infection and importance of contacting the physician MEDICAL REGIMEN-Importance of following prescribed medical regimen MEDICATION PRESCRIBED-Accurate knowledge of prescribed medication prior to discharge MEDICATION SIDE EFFECTS-Side effects associated with the medication that warrant a call to the physician PHYSICAL RESTRICTIONS-Physical restrictions and recommendations after discharge from the hospital POST-PROCEDURE INSTRUCTIONS-Correct actions to take to reduce post procedure complications SYMPTOM MANAGEMENT-Correct actions to take to manage symptoms associated with his/her disease/illness WORSENING CONDITION-Signs and symptoms of a worsening condition that warrant a call to the physician FOLLOW-UP PLAN: Reinforce - Repeat previous content SUPPLEMENTAL MATERIAL: None REFERRAL (RECOMMENDATION): None Electronically Signed By: Lucinda Sarabia RN In Department: HEMATOLOGY/ONCOLOGY Spoke with Mr. Joseph and reviewed autologous stem cell transplant discharge instructions. Stressed importance of reporting new or worsening symptoms, especially temperature of 100.5 degrees or higher, increased nausea/vomiting, increased diarrhea or worsening rash. Mr. Joseph instructed to monitor temperature twice a day for two weeks and to notifiy physician if temperature is > 100.5, to drink at least 1L fluid/day, to have bloodwork checked within 2-3 days of discharge and then weekly for one month. Mr. Joseph also aware that he needs to see his local oncologist within one week of his discharge. Instructed that repeat PFTs, CXR, bloodwork, and guanaco ointment with transplant physician, Earl Simpson M.D., will be scheduled at [facility] in approximately one month. Patient was instructed on abstaining from sexual activity until platelets over 50K. During weekdays, Mr. Joseph instructed to call Lucinda Sarabia RN, their BMT coordinator, and/or their local oncologist for questions or problems. After hours, on weekends or holidays, instructed to call the page laser beam trim operator at [phone] and ask for hematology/oncology [id number]. Follow up appointment for labs scheduled for 06/19/23. Reviewed discharge medications with Mr. Joseph and the need to stay on prophylactic acyclovir for one year post transplant. All questions answered. Mr. Joseph verbalized understanding of all instructions. Lucinda Sarabia RN documented in this encounterFlower Hospital08-17-2023 Miscellaneous Notes* Telephone Encounter - Betsy Henriquez LPN - 06/08/2023 2:28 PM EDT Temo spoke to patient's . Betsy Henriquez LPN documented in this encounterFlower Hospital08-16-2023 Miscellaneous Notes* Telephone Encounter - Temo Gill RN - 06/07/2023 12:59 PM EDT Spoke with patients at this time in regards to [id number] and patients eligibility. Patient will beseen by this RN upon return from [facility] to see . Patients given my contact info for any questions or concerns moving forward. 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 He is on anticoagulation but has not had any bleeding issues. We will continue monitoring platelet count and hold anticoagulation if indicated. 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 He is on anticoagulation but has not had any bleeding issues. We will continue monitoring platelet count and hold anticoagulation if indicated. 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 He is on anticoagulation but has not had any bleeding issues. We will continue monitoring platelet count and hold anticoagulation if indicated. 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 He is on anticoagulation but has not had any bleeding issues. We will continue monitoring platelet count and hold anticoagulation if indicated. 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 He is on anticoagulation but has not had any bleeding issues. We will continue monitoring platelet count and hold anticoagulation if indicated. 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 He is on anticoagulation but has not had any bleeding issues. We will continue monitoring platelet count and hold anticoagulation if indicated. 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 He is on anticoagulation but has not had any bleeding issues. We will continue monitoring platelet count and hold anticoagulation if indicated. 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 He is on anticoagulation but has not had any bleeding issues. We will continue monitoring platelet count and hold anticoagulation if indicated. 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 He is on anticoagulation but has not had any bleeding issues. We will continue monitoring platelet count and hold anticoagulation if indicated. 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 He is on anticoagulation but has not had any bleeding issues. We will continue monitoring platelet count and hold anticoagulation if indicated. 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 He is on anticoagulation but has not had any bleeding issues. We will continue monitoring platelet count and hold anticoagulation if indicated. 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 He is on anticoagulation but has not had any bleeding issues. We will continue monitoring platelet count and hold anticoagulation if indicated. 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 He is on anticoagulation but has not had any bleeding issues. We will continue monitoring platelet count and hold anticoagulation if indicated. 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 He is on anticoagulation but has not had any bleeding issues. We will continue monitoring platelet count and hold anticoagulation if indicated. 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 He is on anticoagulation but has not had any bleeding issues. We will continue monitoring platelet count and hold anticoagulation if indicated. 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 He is on anticoagulation but has not had any bleeding issues. We will continue monitoring platelet count and hold anticoagulation if indicated. 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 He is on anticoagulation but has not had any bleeding issues. We will continue monitoring platelet count and hold anticoagulation if indicated. 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 He is on anticoagulation but has not had any bleeding issues. We will continue monitoring platelet count and hold anticoagulation if indicated. 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 He is on anticoagulation but has not had any bleeding issues. We will continue monitoring platelet count and hold anticoagulation if indicated. 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 He is on anticoagulation but has not had any bleeding issues. We will continue monitoring platelet count and hold anticoagulation if indicated. 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 He is on anticoagulation but has not had any bleeding issues. We will continue monitoring platelet count and hold anticoagulation if indicated. 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 He is on anticoagulation but has not had any bleeding issues. We will continue monitoring platelet count and hold anticoagulation if indicated. 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 He is on anticoagulation but has not had any bleeding issues. We will continue monitoring platelet count and hold anticoagulation if indicated. 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 He is on anticoagulation but has not had any bleeding issues. We will continue monitoring platelet count and hold anticoagulation if indicated. 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 He is on anticoagulation but has not had any bleeding issues. We will continue monitoring platelet count and hold anticoagulation if indicated. 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 He is on anticoagulation but has not had any bleeding issues. We will continue monitoring platelet count and hold anticoagulation if indicated. 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 He is on anticoagulation but has not had any bleeding issues. We will continue monitoring platelet count and hold anticoagulation if indicated. 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 He is on anticoagulation but has not had any bleeding issues. We will continue monitoring platelet count and hold anticoagulation if indicated. 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 He is on anticoagulation but has not had any bleeding issues. We will continue monitoring platelet count and hold anticoagulation if indicated. 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 He is on anticoagulation but has not had any bleeding issues. We will continue monitoring platelet count and hold anticoagulation if indicated. 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 Plan: -Transfuse LR/IR blood products to maintain hgb > 7 g/dL and plts > 10 k/uL. Neupogen per protocol. 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 He is on anticoagulation but has not had any bleeding issues. We will continue monitoring platelet count and hold anticoagulation if indicated. 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 Plan: -Transfuse LR/IR blood products to maintain hgb > 7 g/dL and plts > 10 k/uL. Neupogen per protocol. 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 He is on anticoagulation but has not had any bleeding issues. We will continue monitoring platelet count and hold anticoagulation if indicated. 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 Plan: -Transfuse LR/IR blood products to maintain hgb > 7 g/dL and plts > 10 k/uL. Neupogen per protocol. 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 He is on anticoagulation but has not had any bleeding issues. We will continue monitoring platelet count and hold anticoagulation if indicated. 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 Plan: -Transfuse LR/IR blood products to maintain hgb > 7 g/dL and plts > 10 k/uL. Neupogen per protocol. 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 He is on anticoagulation but has not had any bleeding issues. We will continue monitoring platelet count and hold anticoagulation if indicated. 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 Plan: -Transfuse LR/IR blood products to maintain hgb > 7 g/dL and plts > 10 k/uL. Neupogen per protocol. 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 He is on anticoagulation but has not had any bleeding issues. We will continue monitoring platelet count and hold anticoagulation if indicated. 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 Plan: -Transfuse LR/IR blood products to maintain hgb > 7 g/dL and plts > 10 k/uL. Neupogen per protocol. 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 He is on anticoagulation but has not had any bleeding issues. We will continue monitoring platelet count and hold anticoagulation if indicated. 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 Plan: -Transfuse LR/IR blood products to maintain hgb > 7 g/dL and plts > 10 k/uL. Neupogen per protocol. 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 He is on anticoagulation but has not had any bleeding issues. We will continue monitoring platelet count and hold anticoagulation if indicated. 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 Plan: -Transfuse LR/IR blood products to maintain hgb > 7 g/dL and plts > 10 k/uL. Neupogen per protocol. 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 He is on anticoagulation but has not had any bleeding issues. We will continue monitoring platelet count and hold anticoagulation if indicated. 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 Plan: -Transfuse LR/IR blood products to maintain hgb > 7 g/dL and plts > 10 k/uL. Neupogen per protocol. 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 He is on anticoagulation but has not had any bleeding issues. We will continue monitoring platelet count and hold anticoagulation if indicated. 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 Plan: -Transfuse LR/IR blood products to maintain hgb > 7 g/dL and plts > 10 k/uL. Neupogen per protocol. 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 He is on anticoagulation but has not had any bleeding issues. We will continue monitoring platelet count and hold anticoagulation if indicated. 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 Plan: -Transfuse LR/IR blood products to maintain hgb > 7 g/dL and plts > 10 k/uL. Neupogen per protocol. 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 He is on anticoagulation but has not had any bleeding issues. We will continue monitoring platelet count and hold anticoagulation if indicated. 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 Plan: -Transfuse LR/IR blood products to maintain hgb > 7 g/dL and plts > 10 k/uL. Neupogen per protocol. 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 He is on anticoagulation but has not had any bleeding issues. We will continue monitoring platelet count and hold anticoagulation if indicated. 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 Plan: -Transfuse LR/IR blood products to maintain hgb > 7 g/dL and plts > 10 k/uL. Neupogen per protocol. 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 He is on anticoagulation but has not had any bleeding issues. We will continue monitoring platelet count and hold anticoagulation if indicated. 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 Plan: -Transfuse LR/IR blood products to maintain hgb > 7 g/dL and plts > 10 k/uL. Neupogen per protocol. 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 He is on anticoagulation but has not had any bleeding issues. We will continue monitoring platelet count and hold anticoagulation if indicated. 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 Plan: -Transfuse LR/IR blood products to maintain hgb > 7 g/dL and plts > 10 k/uL. Neupogen per protocol. 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 He is on anticoagulation but has not had any bleeding issues. We will continue monitoring platelet count and hold anticoagulation if indicated. 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 Plan: -Transfuse LR/IR blood products to maintain hgb > 7 g/dL and plts > 10 k/uL. Neupogen per protocol. 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 He is on anticoagulation but has not had any bleeding issues. We will continue monitoring platelet count and hold anticoagulation if indicated. 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 Plan: -Transfuse LR/IR blood products to maintain hgb > 7 g/dL and plts > 10 k/uL. Neupogen per protocol. 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 He is on anticoagulation but has not had any bleeding issues. We will continue monitoring platelet count and hold anticoagulation if indicated. 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 Plan: -Transfuse LR/IR blood products to maintain hgb > 7 g/dL and plts > 10 k/uL. Neupogen per protocol. 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 He is on anticoagulation but has not had any bleeding issues. We will continue monitoring platelet count and hold anticoagulation if indicated. 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 Plan: -Transfuse LR/IR blood products to maintain hgb > 7 g/dL and plts > 10 k/uL. Neupogen per protocol. 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 He is on anticoagulation but has not had any bleeding issues. We will continue monitoring platelet count and hold anticoagulation if indicated. 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 Plan: -Transfuse LR/IR blood products to maintain hgb > 7 g/dL and plts > 10 k/uL. Neupogen per protocol. 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 He is on anticoagulation but has not had any bleeding issues. We will continue monitoring platelet count and hold anticoagulation if indicated. 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 Plan: -Transfuse LR/IR blood products to maintain hgb > 7 g/dL and plts > 10 k/uL. Neupogen per protocol. 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 He is on anticoagulation but has not had any bleeding issues. We will continue monitoring platelet count and hold anticoagulation if indicated. 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 Plan: -Transfuse LR/IR blood products to maintain hgb > 7 g/dL and plts > 10 k/uL. Neupogen per protocol. 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 He is on anticoagulation but has not had any bleeding issues. We will continue monitoring platelet count and hold anticoagulation if indicated. 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 Plan: -Transfuse LR/IR blood products to maintain hgb > 7 g/dL and plts > 10 k/uL. Neupogen per protocol. 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 He is on anticoagulation but has not had any bleeding issues. We will continue monitoring platelet count and hold anticoagulation if indicated. 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 Plan: -Transfuse LR/IR blood products to maintain hgb > 7 g/dL and plts > 10 k/uL. Neupogen per protocol. 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 He is on anticoagulation but has not had any bleeding issues. We will continue monitoring platelet count and hold anticoagulation if indicated. 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 Plan: -Transfuse LR/IR blood products to maintain hgb > 7 g/dL and plts > 10 k/uL. Neupogen per protocol. 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 Plan: -Transfuse LR/IR blood products to maintain hgb > 7 g/dL and plts > 10 k/uL. Neupogen per protocol. 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 Plan: -Transfuse LR/IR blood products to maintain hgb > 7 g/dL and plts > 10 k/uL. Neupogen per protocol. 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 Plan: -Transfuse LR/IR blood products to maintain hgb > 7 g/dL and plts > 10 k/uL. Neupogen per protocol. 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 Plan: -Transfuse LR/IR blood products to maintain hgb > 7 g/dL and plts > 10 k/uL. Neupogen per protocol. 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 Plan: -Transfuse LR/IR blood products to maintain hgb > 7 g/dL and plts > 10 k/uL. Neupogen per protocol. 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 Plan: -Transfuse LR/IR blood products to maintain hgb > 7 g/dL and plts > 10 k/uL. Neupogen per protocol. 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 Plan: -Transfuse LR/IR blood products to maintain hgb > 7 g/dL and plts > 10 k/uL. Neupogen per protocol. documented as of this encounter (statuses as of 02/06/2024) [facility] History of Past illness Narrative* Problem Noted Date Diagnosed Date Resolved Date Other constipation 06/03/2023 Overview: Constipation; no BM since admission - Miralax, senna/doc Thrombocytopenia, unspecified 02/13/2023 02/08/2024 Last Assessment & Plan: Thrombocytopenia secondary to bortezomib and daratumumab. He is on anticoagulation but has not had any bleeding issues. We will continue monitoring platelet count and hold anticoagulation if indicated. 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 Plan: -Transfuse LR/IR blood products to maintain hgb > 7 g/dL and plts > 10 k/uL. Neupogen per protocol. documented as of this encounter (statuses as of 02/08/2024) [facility] History of Past illness Narrative* Problem Noted Date Diagnosed Date Resolved Date Other constipation 06/03/2023 Overview: Constipation; no BM since admission - Miralax, senna/doc Thrombocytopenia, unspecified 02/13/2023 02/08/2024 Last Assessment & Plan: Thrombocytopenia secondary to bortezomib and daratumumab. He is on anticoagulation but has not had any bleeding issues. We will continue monitoring platelet count and hold anticoagulation if indicated. 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 Plan: -Transfuse LR/IR blood products to maintain hgb > 7 g/dL and plts > 10 k/uL. Neupogen per protocol. documented as of this encounter (statuses as of 02/08/2024) [facility] Miscellaneous Notes* Telephone Encounter - Lucinda Sarabai RN - 05/30/2023 3:06 PM EDT Called patient for respiratory/COVID-19 assessment prior to admission. Patient identified by name and date of : yes Reviewed any signs/symptoms of respiratory illness with patient. Patient has active signs of respiratory illness: no No results found for: SCOV2 SARS-CoV-2 (Agent of COVID-19) Date Value Ref Range Status 05/29/2023 Not detected See comment Final Comment: The method used is RT-PCR or an equivalent NAAT method. Reference Range (the expected result in uninfected individuals): Not detected Earl Simpson MD notified. Lucinda Sarabia RN [facility] Miscellaneous Notes* Telephone Encounter - Lucinda Sarabia RN - 05/26/2023 1:58 PM EDT Spoke with patients' , reviewed upcoming admission date and time and COVID test prior to admission. verbalized understanding, did have questions regarding lodging; Elsy Coulter notified. [facility]08[facility]23 Miscellaneous Notes* Telephone Encounter - Betsy Henriquez LPN - 05/25/2023 8:21 AM EDT [employer] auth # [id number]. Please send electronically. Betsy Henriquez LPN documented in [facility] encounterF[facility]07-[facility] History of Present illness Narrative* Lucinda Sarabia RN - 05/17/2023 9:52 AM EDT Patient seen in apheresis, day 3 of collection. Complaints of scrotal and lower abdomen edema (last few weeks, but didn't tell anyone). Ultrasound scheduled for this afternoon, pt and spouse verbalized understanding. Will follow up with results . 1620: CD34 dose for Oseas Joseph for 05/17/23 is 2.92x10^6/kg for a total dose of 6.16x10^6/kg. Pt and spouse notified. Reviewed ultra sound results. Pt will have labs checked later this week and next week, in order to monitor kidney function, will set up for labs in [place]. Pt will have COVID swab done prior to admission on 05/31. documented in this encounterFlower [facility]07-26-[facility]23 History of Present illness Narrative* Tesfaye Reveles, [employer]YLA.PATTERNMAKER APPRENTICE WOOD - 05/17/2023 7:38 AM EDT APHERESIS HEMATOPOIETIC PROGENITOR CELL COLLECTION (HPC) : 1950 Age:[age] year old Gender: male BP 135/60 Pulse 80 Temp 36.4 C (97.5 F) (Oral) Resp 18 SpO2 95% Start Procedure Time: 729 Day: 3 Procedure: hematopoietic progenitor cell collection Protocol: Neupogen Prime and Plerixafor Physician: Dr. Simpson BMT Coordinator: Ofelia Diagnosis: Multiple myeloma Patient arrived: ambulatory and with family accompanied by Spouse Patient indentification confirmed by: Patient name Oseas Joseph, Date of - 1950. Medical and Behavioral History: Has not changed since yesterday. Interval History: Has felt well. Patient is outpatient. Collection performed at [facility] ([facility]). Collection bag identification label confirmed with patient and second staff member FELIRN. REVIEW OF SYSTEMS: Fever none, no chills, breathing unlabored, breathing as usual, and no shortness of breath with exertion, no cough, no chest pains, no swelling in hands, no ankle swelling, appetite good, general energy good , urine output Good Tolerating Neupogen without problems No headaches. PHYSICAL EXAM: Patient alert and oriented in all spheres Catheter site: dressing Intact and Clean. Catheter site No swelling, tenderness, redness, or drainage. Catheter tunnel non tender. Lungs clear to auscultation, Respirations normal, on oxygen supplement - no oxygen Heart Regular rate and rhythm, no murmur, clicks or rubs Peripheral edema: none in hands or feet Using standard [facility] policy, labs drawn at 0730. CBC with diff, BMP, MG, and [place] top from blue port , right , and triple lumen, without difficulty,drawn by TG. WBC (k/uL) Date Value 2023 53.87 Hematocrit (%) Date Value 2023 35.4 Platelet Count (k/uL) Date Value 2023 176 Potassium (mmol/L) Date Value 05/15/2023 3.9 Magnesium (mg/dL) Date Value 05/15/2023 2.0 Creatinine (mg/dL) Date Value 05/15/2023 1.25 No results found for: HCGQT Satisfactory venous access obtained from blue port and triple lumen , return line obtained from white port and triple lumen according to [facility] policy. Medications: (also see MAR audit report) ACD-A 1460 ml for anticoagulation during collection NSS lot # [id number] NSS expiration Apr 15 ACD lot # [id number] ACD expiration Dec 16 ACD Adapter Lot #[id number] ACD Adapter Exp 11/23/2024 Machine Information Machine Optia # 4 Machine Clean Yes Alarm Check Yes Kit lot # [id number] Kit expiration 01/21/2025 Blood Warmer #4 Blood warmer tubing lot# [id number] Blood warmer tubing expiration 01/06/2025 Blood warmer temperature: 41.0C Processed: 79469 ml whole blood Collected 236 ml product. Product labeled per protocol. Product picked up by : BMT lab personnel Upon completion: Temp 97.8, Pulse 67, BP 149/78, Resp 18/min All and port caps changes port caps changed. Flushed All with 10 ml NSS. Dressing site clean, dry, without pain Procedure tolerated well. Patient discharged ambulatory and with family. Patient pending counts to determine if return Collection pending Procedure end time: 1137 Darline Rhodes RN Treatment supervised and note reviewed by Zahida Hinkle RN [facility] APHERESIS PHARMACIST CRITICAL CARE NOTE OF PERSONAL INVOLVEMENT IN CARE I reviewed the patients labs, medications and allergies prior to proceeding with this therapeutic treatment and discussed the case and parameters with the apheresis nurse. I have reviewed this therapeutic progress note documented by the apheresis nurse. I personally participated in all pertinent aspects and matt components of the therapeutic treatment. I was present during matt portions of the treatment and immediately available during the entire procedure. Oseas Joseph tolerated the collection without complaint. No acute events. Today he collected2.92 x 10^6 CD34+ cells/kg for a total of 6.16 x 10^6 CD34+ cells/kg. He has completed stem cell collection. He notified team of swelling in scrotum and lower abdomen. No pain, scrotum started 6-8 weeks ago and the abdomen was noted just a day or so ago. He has been noting some increased frequency of urination. Will continue to coordinate with the BMT service. Tesfaye Reveles APRN.PATTERNMAKER APPRENTICE WOOD May 17, 2023 Pager: [phone] documented in this encounterF[facility]07-20-[facility]23 History of Present illness Narrative* Lucinda Sarabia RN - 05/11/2023 11:08 AM EDT AMBULATORY PATIENT EDUCATION TOPIC: Survival Skills: SURVIVAL SKILLS: Complication Prevention Finn Catheter Care Medication Administration Xarxio SQ innjections Safety Precautions Symptom Management LIFE STYLE CHANGES: Safety Precautions HEALTH PROMOTION: Complication prevention Follow up management READINESS TO LEARN COGNITIVE ABILITY: Alert and oriented MOTIVATION TO LEARN: Eager Interested FAMILY SUPPORT: High - Very involved in pt care INSTRUCTION PROVIDED TO: Patient and Spouse PATIENT LEARNS BEST BY: Individual Instruction Written Instruction - Hand-outs Verbal Instruction Demonstration Multiple Methods FACTORS AFFECTING LEARNING: None PHYSICAL LIMITATIONS AFFECTING LEARNING: None LEARNING RESPONSE DIAGNOSIS: Multiple Myeloma METHOD OF INSTRUCTION: Teach Back TLH flushing & SQ injections Individual instruction Written instruction - handouts Verbal instruction Demonstration-Hands on Learning PATIENT / FAMILY RESPONSE: Verbalizes understanding of: EQUIPMENT USE-Correct use of Equipment INFECTION MANAGEMENT-Signs and symptoms of an infection and importance of contacting the physician MEDICAL REGIMEN-Importance of following prescribed medical regimen MEDICATION PRESCRIBED-Accurate knowledge of prescribed medication prior to discharge MEDICATION ROUTE-Correct route for administration of the prescribed medication MEDICATION SIDE EFFECTS-Side effects associated with the medication that warrant a call to the physician POST-PROCEDURE INSTRUCTIONS-Correct actions to take to reduce post procedure complications SELF INJECTION- Correct procedure to administer self injection using clean technique SYMPTOM MANAGEMENT-Correct actions to take to manage symptoms associated with his/her disease/illness FOLLOW-UP PLAN: Reinforce - Repeat previous content SUPPLEMENTAL MATERIAL: None REFERRAL (RECOMMENDATION): None CENTRAL LINE CARE AND SQ INJ TEACHING Reviewed central line dressing change, daily saline flushes to each lumen, and weekly cap changes with patient and spouse. spouse demonstrated proper technique. Exit and insertion site assessed. No erythema, swelling, or drainage noted. Will review with Oseas Joseph on a PRN basis. Patient was informed that sutures placed to secure the catheter will be removed in 4 weeks, once the cathetertunnel has healed. All questions answered. Reviewed subcutaneous injection with patient and spouse. patient and spouse able to demonstrate proper technique for subcutaneous injection. Reviewed Neupogen's rationale for use, side effects including but not limited to bone pain, flu like symptoms, or abdominal pain which could indicate potential severe complication of splenic rupture, and dose. Plerixafor administration appointment time and lo cation, including 1 hour monitoring period, rationale for use, and potential side effects including, but not limited to irritation at injection site and diarrhea. Written drug information provided topatient and after hour call procedure reviewed. . Oseas Joseph verbalized understanding and all questions were answered. Neupogen 900mcg given subcutaneously in left abdomen Electronically Signed By: Lucinda Sarabia RN In Department: HEMATOLOGY/ONCOLOGY documented in this encounterFlower Hospital07-19-2023 NoteHNO ID: [id number] Author: Huang Moser MD Service: Interventional Radiology Author Type: Physician Type: Procedures Filed: 05/10/2023 12:34 PM Note Text: RADIOLOGY BRIEF PROCEDURE NOTE Procedure Date: May 10, 2023 Incision/Procedure Start Time: 12:15 PM Incision Close/Procedure End Time: 12:30 PM SURGEON(S)/PROCEDURALIST(S) AND POULTRYMAN(S): Haung Moser MD PROCEDURE: Trifusion Catheter Placement PRE-PROCEDURE DIAGNOSIS: Myeloma POST-PROCEDURE DIAGNOSIS: Same ESTIMATED BLOOD LOSS: 0 ml SPECIMENS: None COMPLICATIONS: None FINDINGS: Placement of RIJ Tunneled Trifusion Catheter placement with tip in right atrium. PLAN: Catheter is ready for use. SIGNATURE: Huang Moser MD PATIENT NAME: Oseas Joseph DATE: May 10, 2023 TIME: 12:33 PM PAGER/CONTACT #:[facility]07-13-2023 History of Present illness Narrative* Rebecca Finnegan, [facility] - 05/04/2023 10:56 AM EDT Images from the original note were not included. [facility] Department of Pharmacy Pharmacy Office Visit Autologous BMT Pre-Admission Assessment Patient name: Oseas Joseph BMT Attending MD: Dr. Simpson Diagnosis: multiple myeloma Date of service: 05/04/23 Does this patient have an active consult agreement?: No Oseas Joseph is a 72 year old male patient diagnosed with multiple myeloma and chart review isbeing completed today in preparation for upcoming autologous stem cell transplant. Anticipated Conditioning Regimen: Melphalan Medication Assessment and Plan: Drug Interactions: Clinically significant interactions with chemotherapy or other standard of care treatment plan medications anticipated?: No. There are no pertinent drug interactions identified. Allergies: Patient confirmed allergies documented in Epic are correct Chemotherapy Dose Adjustment Considerations: None. Scr <2.5 mg/dL (1.29 on 05/03) Additional Information: Apixaban is currently listed as an active medication. If continuation of agent is clinically necessary, hold when platelets <50k. Hold atorvastatin during admission. May resume on discharge. Hold glimepiride during admission and use SSI to control blood glucose. Was medication reconciliation performed?: No Was medication education provided?: No Current Medication List: Current Outpatient Medications Medication Sig lenalidomide (REVLIMID) 25 mg capsule TAKE 1 CAPSULE BY MOUTH DAILY FOR 14 DAYS, THEN 7 DAYS OFF acyclovir (ZOVIRAX) 400 mg tablet Take 1 tablet by mouth twice daily. [START ON 05/11/2023] filgrastim biosimilar (ZARXIO) 300 mcg/0.5 mL injection Inject 1.5 mL (900 mcg) subcutaneously once daily for 4 days. For Stem Cell Mobilization. [START ON 05/11/2023] sodium chloride 0.9 %, flush, (BD POSIFLUSH) syringe Inject 10 mL intravenously once daily. BMT Patient. Flush each lumen daily. MEDICAL SUPPLY BMT Patient. Change dressing and caps weekly. Patient and caregiver to wear mask during dressing changes. apixaban (ELIQUIS) 5 mg tab(s) Take 1 tablet by mouth twice daily. ondansetron (ZOFRAN) 8 mg tablet Take 1 tablet by mouth every 8 hours as needed for nausea/vomiting. clonazePAM (KLONOPIN) 0.5 mg tablet Take 0.5 mg by mouth once daily. glimepiride (AMARYL) 2 mg tablet Take 2 mg by mouth twice daily with meals. Take 2 capsules by mouth in AM & 2 capsule in PM. amLODIPine (NORVASC) 5 mg tablet Take 5 mg by mouth once daily. atorvastatin (LIPITOR) 10 mg tablet Take 10 mg by mouth once daily. losartan (COZAAR) 50 mg tablet Take 50 mg by mouth once daily. Current Facility-Administered Medications Medication Dose Route Frequency perflutren lipid microspheres 1.3 mL in NaCl (PF) 0.9% 10 mL injection (DEFINITY) INTRAVENOUS DIRECTED PRN sodium chloride 0.9 % (flush) 10 mL (BD POSIFLUSH) 10 mL INTRAVENOUS DIRECTED PRN Laboratory Data: Laboratory Data WBC (k/uL) Date Value 05/03/2023 5.75 04/28/2023 4.62 04/24/2023 3.87 04/21/2023 3.38 04/17/2023 4.54 Abs Neut (k/uL) Date Value 05/03/2023 3.54 04/24/2023 2.29 04/21/2023 1.81 04/17/2023 2.50 04/11/2023 5.21 Abs Neut (Segs + Bands) (k/uL) Date Value 04/28/2023 2.82 Hemoglobin (g/dL) Date Value 05/03/2023 12.5 04/28/2023 11.7 04/24/2023 11.7 04/21/2023 12.0 04/17/2023 11.8 Platelet Count (k/uL) Date Value 05/03/2023 137 04/28/2023 127 04/24/2023 139 04/21/2023 194 04/17/2023 225 Glucose (mg/dL) Date Value 05/03/2023 137 04/21/2023 130 04/17/2023 165 04/11/2023 269 04/07/2023 151 Creatinine (mg/dL) Date Value 05/03/2023 1.29 04/21/2023 1.11 04/17/2023 1.06 04/11/2023 1.13 04/07/2023 1.10 Calcium, Total (mg/dL) Date Value 05/03/2023 9.2 04/21/2023 8.7 04/17/2023 8.7 04/11/2023 8.7 04/07/2023 8.8 Bilirubin, Total (mg/dL) Date Value 05/03/2023 0.5 04/21/2023 0.5 04/17/2023 0.6 04/11/2023 0.5 04/07/2023 0.5 CBC with diff: WBC 5.75 05/03/2023 RBC 4.07 05/03/2023 Hemoglobin 12.5 05/03/2023 Hematocrit 37.7 05/03/2023 MCV 92.6 05/03/2023 MCH 30.7 05/03/2023 MCHC 33.2 05/03/2023 RDW-CV 14.7 05/03/2023 Platelet Count 137 05/03/2023 MPV 11.9 05/03/2023 Neutrophils % 61.6 05/03/2023 Lymphocytes % 13.2 05/03/2023 Monocytes % 14.4 05/03/2023 Basophils % 0.5 05/03/2023 Abs Neut (Segs + Bands) 3.54 05/03/2023 Abs Morton 0.83 05/03/2023 Abs Eosin 0.58 05/03/2023 Abs Baso 0.03 05/03/2023 CMP: Glucose 137 05/03/2023 BUN 20 05/03/2023 Creatinine 1.29 05/03/2023 Sodium 141 05/03/2023 Potassium 4.6 05/03/2023 Chloride 106 05/03/2023 CO2 23 05/03/2023 Protein, Total 6.8 05/03/2023 Albumin 4.2 05/03/2023 Calcium, Total 9.2 05/03/2023 Alkaline Phosphatase 42 05/03/2023 Bilirubin, Total 0.5 05/03/2023 AST 12 05/03/2023 ALT 13 05/03/2023 M-Protein Concentration (g/dL) Date Value 04/17/2023 0.31 04/11/2023 0.33 03/07/2023 0.34 02/22/2023 0.34 02/15/2023 0.38 M Sergio Quant, 24 Hr Urine (g/24hr) Date Value 08/10/2022 0.06 [place] Free, Serum (mg/L) Date Value 05/03/2023 12.9 04/17/2023 10.2 04/11/2023 12.0 03/07/2023 8.0 02/22/2023 14.2 Lambda Free, Serum (mg/L) Date Value 05/03/2023 12.0 04/17/2023 11.4 04/11/2023 16.5 03/07/2023 11.1 02/22/2023 21.4 Interpretation (MPA) (no units) Date Value 04/17/2023 Two sets of atypical restricted bands are present in the specimen, one in the IgG and kappa lanes, and the other in the IgG and lambda lanes. 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 The location of the IgG kappa band suggests the presence of daratamumab, although one cannot rule out the possibility that this band represents a second monoclonal protein. If clinically required, specific testing for daratumumab may be ordered to confirm the presence of the drug in this patient. 04/11/2023 Atypical restricted bands are present in the IgG and lambda regions. Consistent with IgG lambda monoclonal gammopathy. There is an atypical restricted band present in the IgG and kappa regions. The location of the IgG kappa band suggests the presence of daratumumab, although one cannot rule out the possibility that this band represents a disease-related monoclonal protein. If clinically required, specific testing for daratumumab may be ordered to confirm the presence of the drug in this patient. 03/07/2023 Atypical restricted bands are present in the IgG and lambda regions. Consistent with IgG lambda monoclonal gammopathy. There is an atypical restricted band present in the IgG and kappa regions. The location of the IgG kappa band suggests the presence of daratumumab, although one cannot rule out the possibility that this band represents a disease-related monoclonal protein. If clinically required, specific testing for daratumumab may be ordered to confirm the presence of the drug in this patient. Medical History: Medication History Social History Tobacco Use Smoking status: Never Smokeless tobacco: Never Vaping Use Vaping Use: Never used Substance Use Topics Alcohol use: Yes Comment: social Drug use: Never ALLERGIES No Known Allergies Thank you for allowing us to participate in the care of this patient. Rebecca Finnegan RPh Pager: [phone] May 04, 2023 10:57 AM documented in this encounterFlower Hospital07-12-2023 History of Present illness Narrative* Earl Simpson MD - 05/03/2023 3:42 PM EDT [facility] Department of Hematologic Oncology and Blood Disorders (Elements copied from my note dated 02/13/23, have been reviewed and updated where appropriate, and all reflect current assessment and medical decision making during today's encounter) PATIENT NAME: Oseas Joseph [facility] NO: [id number] DATE OF SERVICE: May 03, 2023 History of Present Illness: Oseas Joseph is a 72 year old male referred to me by Dr. 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 Briefly, 72 yo with a past medical history significant for type 2 diabetes, high cholesterol, hypertension and right bundle branch block presenting w/ a diarrheal illness in Fall 2021. 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 IgA decreased to 28 mg/dL. IgM normal at 32 mg/dL. On protein electrophoresis, patient was found to have 2M spikes both IgG lambda by immunofixation. For spike was quantitated at 1.2 g/dL and the second was quantitated at 0.6 g/dL. Recent removal of early melanoma back. Blue nevus right ankle--required WLE--scheduled. PMR--about 15 years ago. Work up had met criteria for smoldering myeloma (PCs 20%; no end organ damage; baseline MP < 3g/dL [1.08 mg/dL and 0.59 mg/dL at baseline] and involved/uninvolved FLC ratio < 100. Low to intermediate risk disease (PCs 20%). -Imaging--no lytic lesions on whole body CT; Liver cyst and splenic nodule (6-12 month f/u MRI recommended). -Bone marrow negative for amyoid. -Colonic biopsies negative for amyloid. -Subsequent MRI of spine and pelvis revealed two T2 hyperintense foci in the pelvis, one in the left sacral rebeka and one in the right ischium. -The finding of the bone lesions on MRI fulfilled criteria for multiple myeloma. -FISH panel revealed (11;14) (q13;q32) (IGH/CCND1) translocation consistent with the presence of a plasma cell neoplasm associated with standard risk disease. -R-ISS stage I -PS ECOG 1 (new PE). - Minimal response after 3 cycles VRd (~30% reduction in MP #1). Thus, was transitioned to zoran-VRDfor fourth cycle. He is now s/p 6 total cycles, 3 w/ zoran-RVD, to TN. Patient had a venous duplex ultrasound on 12/16/2022 for right leg pain. That study demonstrated no evidence of DVT in the right leg. He developed chest pain and increasing shortness of breath. Went to the ED on 01/16/2023. PE protocol chest CT demonstrated multiple bilateral pulmonary emboli involving the distal portion of both theright and left main pulmonary arteries as well as branches of the upper and lower lobe pulmonary arteries, more prominent on the right side. Platelet count was 67,000. Patient was admitted and placedon unfractionated heparin with bolus. The next morning platelet count was 62,000. He was rotated toapixaban and discharged. Echocardiogram performed 01/17/2023 demonstrated normal LV size. There was moderate concentric LVH. Left ventricular systolic function was normal with an estimated ejection fraction at 60%. There was stage I diastolic dysfunction. The pulmonary artery systolic pressure was 58 mmHg. The global longitudinal strain was -11.5% (abnormal). The global longitudinal strain was moderately abnormal. (Previous echocardiogram 04/20/2022 demonstrated right ventricular systolic pressure estimated at 22 mmHg. Diastolic function was indeterminate. Right ventricular strain was not determined). Repeat echocardiogram pre-BMT with nml LVEF and RVSP back to 23 mm Hg. PFTs nml. No CP or SOB. Occ/stable chronic diarrhea. Denies f/c/ns/n/v. REVIEW OF SYSTEMS: Constitutional: No fever, sweats, or weight loss. Eyes: No change in visual acuity, no diplopia, no dryness. ENT: No tinnitus or change in hearing. No nose bleed. No oral pain or dysphagia. No oral ulcers. Cardiovascular: No chest pain or palpitations. Respiratory: No cough or dyspnea. GI: No nausea, vomiting, or abdominal pain. No hepatitis or history of jaundice. No change in bowel habits. Genitourinary: No hematuria, dysuria or abnormal bleeding. Musculoskeletal: No bone pain or arthralgias. No deformities. Skin: No rash or subcutaneous mass. Neurologic: No muscle weakness or paresthesias. Hem/lymph: No swollen glands. PAST MEDICAL HISTORY Diagnosis Date Arthritis Chronic diarrhea Malignant melanoma (HCC) Mixed hyperlipidemia Multiple myeloma not having achieved remission (HCC) 10/26/2022 Other hyperlipidemia 04/17/2023 Primary hypertension 04/17/2023 Pulmonary embolism (HCC) Right bundle branch block 04/17/2023 Type 2 diabetes mellitus, without long-term current use of insulin (HCC) 04/17/2023 PAST SURGICAL HISTORY Procedure Laterality Date REPAIR INCISIONAL HERNIA,REDUCIBLE 8th grade SKIN BX, 1 LESION 06/2022 FAMILY HISTORY Problem Relation Age of Onset Diabetes Mother Hypertension Mother Renal Disease Mother Hypertension Father Diabetes Father Hypertension Sister Diabetes Sister No Known Problems Sister No Known Problems Sister No Known Problems Sister No Known Problems Sister Heart Sister Hypertension Brother Diabetes Brother Hyperlipidemia Brother Heart Brother Hypertension Maternal Grandmother Diabetes Maternal Grandmother Colon Cancer Paternal Grandmother Hypertension Paternal Grandfather Social History Tobacco Use Smoking status: Never Smokeless tobacco: Never Vaping Use Vaping Use: Never used Substance Use Topics Alcohol use: Yes Comment: social Drug use: Never Current Outpatient Medications Medication Sig acyclovir (ZOVIRAX) 400 mg tablet Take 1 tablet by mouth twice daily. apixaban (ELIQUIS) 5 mg tab(s) Take 1 tablet by mouth twice daily. ondansetron (ZOFRAN) 8 mg tablet Take 1 tablet by mouth every 8 hours as needed for nausea/vomiting. clonazePAM (KLONOPIN) 0.5 mg tablet Take 0.5 mg by mouth once daily. glimepiride (AMARYL) 2 mg tablet Take 2 mg by mouth twice daily with meals. Take 2 capsules by mouth in AM & 2 capsule in PM. amLODIPine (NORVASC) 5 mg tablet Take 5 mg by mouth once daily. atorvastatin (LIPITOR) 10 mg tablet Take 10 mg by mouth once daily. losartan (COZAAR) 50 mg tablet Take 50 mg by mouth once daily. lenalidomide (REVLIMID) 25 mg capsule TAKE 1 CAPSULE BY MOUTH DAILY FOR 14 DAYS, THEN 7 DAYS OFF [START ON 05/11/2023] filgrastim biosimilar (ZARXIO) 300 mcg/0.5 mL injection Inject 1.5 mL (900 mcg) subcutaneously once daily for 4 days. For Stem Cell Mobilization. [START ON 05/11/2023] sodium chloride 0.9 %, flush, (BD POSIFLUSH) syringe Inject 10 mL intravenously once daily. BMT Patient. Flush each lumen daily. MEDICAL SUPPLY BMT Patient. Change dressing and caps weekly. Patient and caregiver to wear mask during dressing changes. Current Facility-Administered Medications Medication Dose Route Frequency perflutren lipid microspheres 1.3 mL in NaCl (PF) 0.9% 10 mL injection (DEFINITY) INTRAVENOUS DIRECTED PRN sodium chloride 0.9 % (flush) 10 mL (BD POSIFLUSH) 10 mL INTRAVENOUS DIRECTED PRN BP 165/79 Pulse 62 Temp 36.7 C (98 F) (Oral) Resp 18 Ht 182.5 cm (5' 11.85) Wt 86.3 kg (190 lb 4.8 oz) SpO2 99% BMI 25.92 kg/m KPS 90 General appearance: well appearing, alert, in no acute distress Skin: negative Eyes: Anicteric sclera. Oropharynx: lips, mucosa, and tongue normal, oropharynx normal Neck: Supple, no adenopathy; normal size, Lungs: lungs clear to auscultation, no wheezing or rhonchi Heart: Negative. RRR without murmur, gallop, or rubs. Abdomen: Normal abdominal exam, Abdomen soft, non-tender. No masses, organomegaly Extremities: Extremities normal. No deformities, edema, or skin discoloration. Musculoskeletal: Spine range of motion normal. 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 He has been transitioned to zoran-Vrd starting w/ cycle #4 and now s/p 6 total cycles to TN by criteria, remaining studies pending. Oseas Joseph presents today for evaluation of the plan to proceed with autologous hematopoietic progenitor cell (HPC) transplantation. Oseas Joseph has been informed of the risks, benefits, alternatives, personnel, and the procedures involved in hematopoietic progenitor cell (HPC) transplant. He has no contraindications to central venous catheter placement for use in HPC harvest via apheresis and no contraindications to HPCmobilization utilizing filgrastim and plerixafor. His childbearing potential was assessed; he is male. Patient is suitable to proceed with HPC harvest and has agreed to proceed. Patient has signed consents for HPC transplant and infusion of HPC product, chemotherapy and transfusion of blood products. Please consult vasc med in house re: management of recent PE during thrombocytopenic jacque. Earl Simpson MD I spent a total of 40 minutes on the date of the service which included preparing to see the patient, anat-mo-exfk patient care, completing clinical documentation, obtaining and/or reviewing separately obtained history, performing a medically appropriate examination, counseling and educating the pat ient/family/caregiver, and care coordination (not separately reported). documented in this encounterFlower [facility]07-12-[facility]23 Nurse Note* Eugenie Dumont RN - 05/03/2023 11:08 AM EDT Additional intake questions: Has the patient had fever, nausea, vomiting, diarrhea, constipation, fatigue for > 1 week? Yes, fatigue and Provider notified. Does the patient have a decreased appetite? No Does patient want to see a Roller Man? No (yes to any of above refer patient to schedulers for dietitian appointment) ) Does patient have any new or increased numbness or tingling of extremities? No Is patient interested in fertility information? No Does patient need any prescription refills? No Does patient have an advanced directive in place? No, Patient referred to Resource Center Electronically Signed By: Eugenie Dumont RN documented in this encounterFlower Hospital07-07-2023 History of Present illness Narrative* Ayan Maciel RD - 04/28/2023 11:28 AM EDT Oncology Nutrition Therapy Initial Assessment I have communicated my name and active licensure. The patient's identity and physical location wereverified at the time of this visit. Either the patient or their legal sales representative has been informed of the risks and benefits of -- and alternatives to -- treatment through a remote evaluation andconsents to proceed with the evaluation remotely. RECOMMENDED MALNUTRITION DIAGNOSIS: NO MALNUTRITION IDENTIFIED Nutriscore: Patient Score : 1 Nutrition Diagnosis: Predicted subopmtimal oral intake Nutrition Intervention: Aim for 89-106 gm protein daily: poultry, fish/seafood, lean meat, eggs, cheese/yogurt, beans, nuts, nut butter, tofu/tempeh, TVP/plant based 'meats'. Aim to eat 4-6 times daily, goal for 8232-8813 kcal per day. Hydration: 60- 75oz per day. Physical activity: maintain gentle activity as tolerated. - ie. development team lead, walking, light resistance training. Nutrition Monitoring & Evaluation: -PO Intake -Wt status -BM's -Supplement tolerance/acceptance -Biochemical Markers -Plan of care HPI: This is a 72 year old year old patient with primary cancer dx of Multiple Myeloma. Pre-Auto BMT. Current treatment: RVd and Zometa. PMH: T2DM, HTN high cholesterol. Subjective: Appetite has been good the entire time. cooks, pt up by 5am everyday. Eats 3 mealsper day. Does drink a soy protein drink and V8 daily. Reports has always had a good appetite and ishopeful to be able to follow whatever is needed to maintain a good nutrition status throughout transplant. B: leftover L - sandwich D - meat/starch Nutritional Intake: adequate energy intake Patient's symptoms are: None Prior diarrhea issues have been resolved. Readiness to Learn: Cognitive ability: Alert and oriented Motivation to learn: Eager Family support: High - Very involved in pt care Instruction provided to: Patient Patient learns best by: Individual Instruction Factors affecting learning: None Physical limitations affecting learning: None Educational materials provided: Creative Eating during Illness and Recovery and High Protein Foods Anthropometrics: Height: Last 1 Encounter Ht Readings: Date: Ht: 02/13/2023 184.1 cm (6' 0.48) Last 15 Encounter Wt Readings: Date: Wt: 04/28/2023 88.5 kg (195 lb) 04/21/2023 86.2 kg (190 lb) 04/18/2023 88 kg (194 lb) 04/17/2023 88.2 kg (194 lb 8 oz) 04/07/2023 88.7 kg (195 lb 8 oz) 04/04/2023 87.5 kg (193 lb) 03/31/2023 87.5 kg (193 lb) 03/28/2023 87.8 kg (193 lb 8 oz) 03/17/2023 87.5 kg (193 lb) 03/10/2023 88.2 kg (194 lb 8 oz) 02/28/2023 88.2 kg (194 lb 8 oz) 02/15/2023 87.8 kg (193 lb 8 oz) 02/13/2023 86.2 kg (190 lb) 01/31/2023 86.9 kg (191 lb 8 oz) 01/18/2023 87.1 kg (192 lb) Estimated body mass index is 26.1 kg/m as calculated from the following: Height as of 02/13/23: 184.1 cm (6' 0.48). Weight as of an earlier encounter on 04/28/23: 88.5 kg (195 lb). Resting Metabolic Rate: 1694 UBW: ~88 kg Weight stable x 8 months per chart review Dosing Weight: 88.5 kg Estimated kilocalorie needs: 4500-2326 kilocalories determined by 20-25 kcal/kg Estimated protein needs: 89-106 grams determined by 1.0-1.2 g/kg Dosing weight Estimated fluid needs: 3197-7107 milliliters based on 1 mL per kcal Nutrition Focused Physical Exam: Unable to perform exam due to patient unavailable, will re-attemptduring reassessment. Telephone Visit. Potential Signs of Inflammation: hyperglycemia and chronic condition Allergies: Patient has no known allergies. Medications: Current Outpatient Medications Medication Sig Dispense Refill [START ON 05/11/2023] filgrastim biosimilar (ZARXIO) 300 mcg/0.5 mL injection Inject 1.5 mL (900 mcg) subcutaneously once daily for 4 days. For Stem Cell Mobilization. 6 mL 0 [START ON 05/11/2023] sodium chloride 0.9 %, flush, (BD POSIFLUSH) syringe Inject 10 mL intravenously once daily. BMT Patient. Flush each lumen daily. 300 mL 1 MEDICAL SUPPLY BMT Patient. Change dressing and caps weekly. Patient and caregiver to wear mask during dressing changes. 2 Each 1 lenalidomide (REVLIMID) 25 mg capsule TAKE 1 CAPSULE BY MOUTH DAILY FOR 14 DAYS, THEN 7 DAYS OFF 14capsule 0 apixaban (ELIQUIS) 5 mg tab(s) Take 1 tablet by mouth twice daily. 60 tablet 11 acyclovir (ZOVIRAX) 400 mg tablet Take 1 tablet by mouth twice daily. (Patient not taking: Reportedon 04/24/2023) 60 tablet 5 ondansetron (ZOFRAN) 8 mg tablet Take 1 tablet by mouth every 8 hours as needed for nausea/vomiting. 30 tablet 2 clonazePAM (KLONOPIN) 0.5 mg tablet Take 0.5 mg by mouth once daily. glimepiride (AMARYL) 2 mg tablet Take 2 mg by mouth twice daily with meals. Take 2 capsules by mouth in AM & 2 capsule in PM. amLODIPine (NORVASC) 5 mg tablet Take 5 mg by mouth once daily. atorvastatin (LIPITOR) 10 mg tablet Take 10 mg by mouth once daily. losartan (COZAAR) 50 mg tablet Take 50 mg by mouth once daily. Current Facility-Administered Medications Medication Dose Route Frequency Provider Last Rate Last Admin perflutren lipid microspheres 1.3 mL in NaCl (PF) 0.9% 10 mL injection (DEFINITY) INTRAVENOUS DIRECTED PRN Earl Simpson MD sodium chloride 0.9 % (flush) 10 mL (BD POSIFLUSH) 10 mL INTRAVENOUS DIRECTED PRN Earl Simpson MD Facility-Administered Medications Ordered in Other Visits Medication Dose Route Frequency Provider Last Rate Last Admin NaCl 0.9% iv infusion 500-999 mL/hr INTRAVENOUS PRN Connie Mccain, DO diphenhydrAMINE 50 mg injection (BENADRYL) 50 mg INTRAVENOUS PRN Connie Mccain, DO hydrocortisone sodium succinate (PF) 100 mg injection (Solu-CORTEF) 100 mg INTRAVENOUS PRN Connie Mccain, DO EPINEPHrine HCl (PF) 1 mg/mL (1 mL) 0.3 mg injection 0.3 mg INTRAMUSCULAR PRN Connie Mccain, DO Need for Follow up: Will monitor need for f/u post BMT Referred by: Tatiana COLÓN Billing Type: Initial Assess/15 min 2 units Time Spent with Patient: 20 minutes Signed by: Ayan Maciel RD, LD documented in this encounterFlower Hospital07-07-2023 History of Present illness Narrative* Nena Avendaño - 04/28/2023 8:51 AM EDT [facility] received prescription(s) for Zarxio from Dr. Simpson's office. Benefits investigation was conducted, indicating that a prior authorization is required by patient's insurance plan with [employer]. Encounter will be updated once prior authorization has been submitted by [facility]. Nena Avendaño CPhT [facility] Oncology P: F: [email or web address] * Velma Sheffield RN - 04/28/2023 8:51 AM EDT [facility] received prescription(s) for zarxio from Dr. Simpson's office. Benefits investigation was conducted, indicating that a prior authorization is required. KAELA was approved with details listed below. Plan Name: [employer] Plan Agent/Matt: prior authorization submitted through [employer] online portal Phone/Fax: KAELA reference number: [id number] Approval Dates: 10/23/2022 - 10/25/2023 Prescriptions will now be processed through [facility] for determination of next steps. Velma Sheffield RN documented in this encounterFlower Hospital06-30-2023 History of Present illness Narrative* Yesica Coulter - 04/21/2023 4:19 PM EDT I spoke with patient's spouse, Louise Joseph, by phone today regarding lodging related to his upcoming autologous stem cell transplant. They live in [place], [place], about a 1-[address] to [facility]. [facility]. [facility] room requests: 05/09/23 to 05/11/23 line placement/teaching 05/14/23 to 05/19/23 apheresis 05/31/23 to 06/17/23 admission [facility] will contact Louise directly. Louise has my contact information and will call if dates change or they need alternate lodging. Elsy Coulter Patient Audio Visual Project Manager [facility] [phone] / [phone] documented in this encounterFlower Hospital06-28-2023 Nurse Note* Zahida Mars LPN - 04/19/2023 12:07 PM EDT Time 1124 BP 163/78 P 69. Safety Maintained. Call light within reach. Patient lying in bed, on biopsy site. Will continue to monitor patient. Family present. BONE MARROW Aspirate & Biopsy Recovery Nursing Assessment/Intervention Post-procedure: Discharge: Time: 1150 BP: 145/67 P: 55 Dressing: Dry and intact Signs & Symptoms\ pt denies: abd/groin pain, chest pain, short of breath, faintness, and dizziness Mental status: WNL skin color/quality: WNL Pt was discharged in apparent satisfactory condition. Comments: None, patient tolerated procedure well. electronically signed: Zahida Mars LPN * Zahida Mars LPN - 04/19/2023 9:58 AM EDT Additional intake questions: Has the patient had fever, nausea, vomiting, diarrhea, constipation, fatigue for > 1 week? No Does the patient have a decreased appetite? No Does patient want to see a Roller Man? No (yes to any of above refer patient to schedulers for dietitian appointment) ) Does patient have any new or increased numbness or tingling of extremities? No Is patient interested in fertility information? No Does patient need any prescription refills? No Does patient have an advanced directive in place? No, Patient referred to Resource Center Electronically Signed By: Zahida Mars LPN AMBULATORY PATIENT EDUCATION NOTE TOPIC: Bone marrow biopsy READINESS TO LEARN COGNITIVE ABILITY: Alert and oriented MOTIVATION TO LEARN: Eager FAMILY SUPPORT: High - Very involved in pt care INSTRUCTION PROVIDED TO: Patient and family member PATIENT LEARNS BEST BY: Individual Instruction Written Instruction - Hand-outs Verbal Instruction FACTORS AFFECTING LEARNING: None PHYSICAL LIMITATIONS AFFECTING LEARNING: None LEARNING RESPONSE DIAGNOSIS: Bone marrow biopsy METHOD OF INSTRUCTION: Individual instruction Written instruction - handouts Verbal instruction PATIENT / FAMILY RESPONSE: Verbalizes understanding of: PRE PROCEDURE MEDICATON- Use of designated pile driver operator. INFECTION MANAGEMENT-The signs and symptoms of an infection (chills and fever) and the importance of contacting the physician. PAIN MANAGEMENT-The effective strategies to manage pain, use of Tylenol instead of ASA or Ibuprofen. BIOPSEY SITE-Care of biopsy site, bleeding control and instruction for contacting physician in caseof excessive bleeding. FOLLOW-UP PLAN: Patient instructed to call with any further issues SUPPLEMENTAL MATERIAL: Patient Instruction for Home-Care Following a Bone Marrow Biopsy REFERRAL (RECOMMENDATION): None Electronically Signed By Zahida Mars LPN In Department: HEMATOLOGY/ONCOLOGY documented in this encounterFlower Hospital06-28-2023 Procedure note* Josie Amador APRN.CNP - 04/19/2023 10:50 AM EDTAssociated Order(s): BONE MARROW BIOPSY Post-Procedure Diagnose(s): Multiple myeloma not having achieved remission (HCC); Pre-transplant evaluation for stem cell transplant BEDSIDE PROCEDURE NOTE BONE MARROW BIOPSY Performed by: Josie Amador APRN.CNP Authorized by: Josie Amador APRN.CNP Informed Consent Consent Obtained: yes Topmost Protocol A moment to CARE was completed. SIGN IN Personnel directly involved with the procedure wore the appropriate PPE. Special Equipment: Yes Patient/Surrogate Stated/Verified: Patient name, Date of , Relevant allergies and Intended procedure TIME OUT Intended patient and procedure match the source document(s). Consent documented and matches the intended procedure. Relevant labs, photos, and/or imaging studies have been reviewed. Correct side/site marked and visible. Medications required for procedure verified. No fire risk assessment and interventions applicable. No implant(s) inserted. Pre-procedure Details: The area was prepped with povidone Iodine (Betadine) and allowed to dry. A sterile partial body drape was applied following the usual aseptic technique. Medications: Analgesia (see MAR): Percocet Local Anesthesia (see MAR): Lidocaine 2% (10 ml) Procedure Details: Patient Position: Right lateral decubitus Aspiration Laterality: Unilateral Aspiration Site: Left posterior superior iliac crest Biopsy Laterality: Unilateral Biopsy Site: Left posterior superior iliac crest . [employer] biopsy system was used. Using aseptic technique, bone marrow aspiration was performed. A touch prep was taken. Core biopsy was obtained 1.5 cm. The core biopsy was confirmed. Post-procedure Details: Patient tolerated the procedure well with no immediate complications Estimated Blood Loss: scant Specimens Sent: bone marrow analysis, bone marrow chromosome analysis, flow cytometry and DNA extraction Teaching Complete: Bone Marrow Biopsy Post-procedure teaching complete Post-procedure care was reviewed and explained. Patient instructed to communicate complaints of redness, swelling, increased or unresolved pain, bleeding chills, bruising, and/or fever. Patient verbalized understanding. SIGN OUT All instruments, equipment, possible retained foreign bodies accounted for. 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 SIGNATURE: Josie Amador APRN.CNP PATIENT NAME: Oseas Joseph DATE: April 19, 2023 TIME: 10:50 AM [id number] documented in this encounterFlower Hospital06-27-2023 History of Present illness Narrative* Bright Thao APRN.CNP - 04/18/2023 11:59 AM EDT Chief Complaint Patient presents with: Established Patient HPI: Oseas Joseph is a 72 year old male who presents here today for evaluation for treatment/Velcade. Per Dr. Mccain's previous note: H/o type 2 diabetes, high cholesterol, hypertension and right bundle branch block. Patient originally presented to the emergency room at [facility] on 04/19/2022 with new onset of confusion that day which had been worsening. Laboratory work-up significant for hypokalemia. CT of the brain was unremarkable. He was admitted. During hospitalization it was noted that hehad been having diarrhea for 6 to 8 weeks. Stool studies were positive for Campylobacter, blood andlactoferrin. C. difficile was negative. CT of the abdomen pelvis on 04/21/2022 noted abnormal pericholecystic edema without gallstones. Renal cysts and colonic diverticulosis were noted. He was found to have elevation of sed rate to 39, CRP 134. His albumin was 2.3. IgA low at 37. He was discharged on azithromycin, potassium and magnesium supplement. He was seen in the outpatient setting for follow-up visit on 07/11/2022. He continued to have one episode of explosive diarrhea daily. This had been going on for about 8 months. CBC on 07/11 showed a white count of 6400. Differential was normal. Hemoglobin 14.9 g/dL. Platelet count 275,000. Chemistries significant for creatinine of 1.29 g/dL. Previously 1.13 g/dL on 04/27/2022.Calcium was 9.3 mg/dL. Total bilirubin, AST, ALT and alkaline phosphatase were normal. LDH was 181.C-reactive protein was less than 2.09. Total protein was 8.8 g/dL. Total IgG was 2462 mg/dL. IgA decreased to 28 mg/dL. IgM normal at 32 mg/dL. On protein electrophoresis, patient was found to have 2M spikes both IgG lambda by immunofixation. For spike was quantitated at 1.2 g/dL and the second was quantitated at 0.6 g/dL. Cytoplasmic and perinuclear ANCA both negative. Atypical p-ANCA negative. Patient described diarrhea as loose, eran stools sometimes explosive typically one bowel movement per day however. He had not observed any blood. Had a colonoscopy December [address] Arteaga. His appetite was normal. He had not lost weight. Denied reflux and nausea. He did get abdominal bloating associated with the diarrhea. He denied musculoskeletal pain. He denied symptoms of sensory neuropathy. He sees an team supervisor once a year for dilated exam. He has not been told he has retinopathy. Recent removal of early melanoma back. Blue nevus right ankle--required WLE--scheduled. PMR--about 15 years ago. Patient underwent colonoscopy on 09/21/2022. Preparation of the colon was fair. -One 6 mm polyp at the ileocecal valve, removed with a hot snare. Resected and retrieved. -One 5 mm polyp in the ascending colon, removed with a hot snare. Resected and retrieved. -Congested mucosa in the descending colon, at the splenic flexure, in the ascending colon and in the cecum. Biopsied. -Diverticulosis in the recto-sigmoid colon, in the sigmoid colon and in the descending colon. -Stool in the rectum, in the sigmoid colon, in the descending colon and at the hepatic flexure. Fluid aspiration performed. -The examined portion of the ileum was normal. Biopsied. Pathology: A. Ileocecal valve polyp, biopsy: -Consistent with fibrolipomatous polyp. -See comment. B. Small bowel, biopsy: -No pathologic change. C. Cecum, biopsy: -Mild melanosis coli. D. Colon, random biopsy: -Mild melanosis coli. E. Ascending colon polyp, biopsy: -Fragments of tubular adenoma. B, C, D & E - No congophilic material identified. Congo red stain with matched control is negative. ADDENDUM C & D. No congophilic material is noted in these biopsies on light and polarized microscopy. Congo Red stain with matched control was used in the evaluation of this case. He was diagnosed with pancreatic insufficiency and was to start pancreatic enzyme replacement. Patient had a venous duplex ultrasound on 12/16/2022 for right leg pain. That study demonstrated no evidence of DVT in the right leg. He developed chest pain and increasing shortness of breath. Went to the ED on 01/16/2023. PE protocol chest CT demonstrated multiple bilateral pulmonary emboli involving the distal portion of both theright and left main pulmonary arteries as well as branches of the upper and lower lobe pulmonary arteries, more prominent on the right side. Platelet count was 67,000. Patient was admitted and placedon unfractionated heparin with bolus. The next morning platelet count was 62,000. He was rotated toapixaban and discharged. Echocardiogram performed 01/17/2023 demonstrated normal LV size. There was moderate concentric LVH. Left ventricular systolic function was normal with an estimated ejection fraction at 60%. There was stage I diastolic dysfunction. The pulmonary artery systolic pressure was 58 mmHg. The global longitudinal strain was -11.5% (abnormal). The global longitudinal strain was moderately abnormal. (Previous echocardiogram 04/20/2022 demonstrated right ventricular systolic pressure estimated at 22 mmHg. Diastolic function was indeterminate. Right ventricular strain was not determined). His chest pain has improved. He is still short of breath with heavier exertion and sometimes walking from room to room he finds himself breathing heavier. He has been taking apixaban 10 mg twice daily. No bleeding issues. Current therapy: 1) RVd. Cycle #1 began 11/09/2022. 2) Zometa. Appetite:Good. Energy level:It's down 10% Denies fevers or recent illness. Mouth:denies sores Resp:denies cough or sob Cardiac:denies chest pain/palpitations GI:denies abd pain, n/v, moving bowels back and forth :denies dysuria/hematuria Extrem:denies pain Neuro:denies symptoms of neuropathy Skin:denies rashes currently Heme:denies bleeding The ROS is otherwise negative. Past medical history, appointments, medications, allergies reviewed. No changes. EXAM: BP 124/69 Pulse 71 Temp 36.9 C (98.5 F) Wt 88 kg (194 lb) SpO2 96% BMI 25.96 kg/m APPEARANCE Well appearing, alert, in no acute distress, well-hydrated, well nourished. HEART RRR with normal S1 and S2, no murmurs LUNG clear to auscultation LYMPH NODES No cervical lymphadenopathy, No supraclavicular lymphadenopathy, and No axillary lymphadenopathy. ABDOMEN bowel sounds normoactive, soft, non-tender EXTREMITIES No edema NEURO Awake, alert and oriented x 3, Normal gait, and No involuntary motions. SKIN Skin color, texture, turgor normal, no suspicious rashes or lesions LABS: Pending ASSESSMENT/PLAN: 1. Multiple myeloma not having achieved remission (HCC) - ICD9: 203.00, ICD10: C90.00 IgG lambda multiple myeloma. Per Dr. Mccain's previous note 02/28/23: Assessment: -The patient is a 72-year-old male has a past medical history significant for diabetes and chronic diarrhea that was characterized by one explosive watery stool daily (recently diagnosed with pancreatic insufficiency). Was hospitalized 03/2022 when diarrhea significantly worsened and he was diagnosed with and treated for Campylobacter infection. During that evaluation, was found to have two IgG lambda monoclonal antibodies. He did not have hypercalcemia or anemia but had elevated serum creatinine (which may be related to volume depletion when hospitalized for diarrhea and mental status change). 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 Low to intermediate risk disease (PCs 20%). -Imaging--no lytic lesions on whole body CT; Liver cyst and splenic nodule (6-12 month f/u MRI recommended). -Bone marrow negative for amyoid. -Colonic biopsies negative for amyloid. -Subsequent MRI of spine and pelvis revealed two T2 hyperintense foci in the pelvis, one in the left sacral rebeka and one in the right ischium. -The finding of the bone lesions on MRI fulfilled criteria for multiple myeloma. -FISH panel revealed (11;14) (q13;q32) (IGH/CCND1) translocation consistent with the presence of a plasma cell neoplasm associated with standard risk disease. -R-ISS stage I (serum beta microglobulin less than 3.5 mg/L and serum albumin greater than 3.5 g/dL; standard risk disease by FISH testing as outlined above and serum LDH less than upper limit of normal). -PS ECOG 1 (new PE). -He continues to tolerate VRd very well, but had minimal response after 3 cycles VRd (~30% reduction in MP #1). -Now that on daratumumab, he has had a 70% decrease in serum monoclonal protein. -In order to maximize response I suggested rotating to tighter schedule with Velcade administered on days 1, 4, 8 and 11 with daratumumab on days 1, 8 and 15. Lenalidomide days 1 through 14 followed by 1 week off with cycles repeating every 3 weeks. -Answered all of his and his family's questions to their satisfaction. Plan: -Change D-VRd to schedule outlined above. -Dexamethasone 20 mg on days 1, 8 and 15 every cycle. He did no longer has to take dexamethasone ondays 2, 9 and 16. -Restart lenalidomide day 1 next week on Monday. -Continue monthly Zometa. -Every 3-week assessment of serum monoclonal protein. -MRI abdomen in 6 months to follow-up on MRI liver findings from 09/01/2022. Supportive care: ID: Plan: -Continue Acyclovir for shingles prophylaxis up to 6 months after stopping bortezomib. Heme: -No anemia. -Reviewed CBC from today. Counts allow continued therapy. Plan: -Monitor counts. Skeletal: -Only lytic lesions observed over those in the pelvic bones on MRI initially. -Symptomatic from the left hip degenerative changes. Steroid injection yesterday helped. Plan: -Continue monthly Zometa tomorrow. -Follow-up with orthopedic surgery. (I26.99) Acute 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 acute cor pulmonale, unspecified pulmonary embolism type (HCC) Assessment: -B/L PE on ASA. -Evidence of pulmonary hypertension on echocardiogram. -Tolerating apixaban well. -Symptoms improving. Plan: -Continue apixaban. - Overall tolerating VRd well. - Tolerating zometa well. - Labs pending. - No bleeding issues on eliquis. - Continue current medications. - Continue monthly zometa. - Proceed as scheduled for V[facility] pending all labs. - Follow up as scheduled. - Pt. aware to call office with any questions/concerns. The patient indicates understanding of these issues and agrees with the plan. All documentation from previous visit of 03/28/23-Dr. Mccain/myself was copied and pasted, documentation has been reviewed and edited as necessary for today's visit. Bright Thao APRN.EVELIN documented in this encounterFlower Hospital06-26-2023 Nurse Note* Jeremie Saleh LPN - 04/17/2023 4:02 PM EDT Additional intake questions: Has the patient had fever, nausea, vomiting, diarrhea, constipation, fatigue for > 1 week? Yes, fatigue and Provider Notified Does the patient have a decreased appetite? No Does patient want to see a Roller Man? No (yes to any of above refer patient to schedulers for dietitian appointment) ) Does patient have any new or increased numbness or tingling of extremities? No Is patient interested in fertility information? No Does patient need any prescription refills? No Does patient have an advanced directive in place? No, Patient referred to Social Work documented in this encounterFlower Hospital06-26-2023 History of Present illness Narrative* Tesfaye Reveles APRN.CNP - 04/17/2023 4:00 PM EDT Blood and Marrow Transplant Program Patient: Oseas Joseph : 1950 Date of service: April 17, 2023 CC: PreBMT appointment Transplant physician: Earl Simpson M.D. Accompanied today by: daughter and HPI: Oseas Joseph is here for pretransplant evaluation. Patient denies nausea, vomiting, skin rash, shortness of breath, cough, fever, headache, burning or itching eyes, dry mouth. Vesiculating between diarrhea and constipation with his treatment. He is currently finishing his off week of rev lamid and will start next cycle tomorrow. He is tired after a long day of appointments. ROS: GENERAL: No fever or chills. HEENT: No headache, nose bleed, mouth pain, or sore throat. RESPIRATORY: No cough or shortness of breath. CARDIOVASCULAR: No chest pain, palpitations, or leg swelling. GI: Eating, drinking, and taking pills adequately; no difficulty swallowing, abdominal discomfort, blood in stools, black stools, or diarrhea. : No discomfort with voiding or gross blood in urine. MUSCULOSKELETAL: No pain. SKIN: No rash or itching. Complete 10 point ROS was otherwise negative. Diagnosis and treatment: Diagnosed with MM Fall 2021 and treated with VRd x 3 cycles and zoran added for cycle 4 due to only 30% reduction in disease burden. PE 12/2022 and admitted for heparin infusion, discharges on apixaban Medications: lenalidomide (REVLIMID) 25 mg capsule^TAKE 1 CAPSULE BY MOUTH DAILY FOR 14 DAYS, THEN 7 DAYS OFF^Disp: 14 capsule^Rfl: 0 apixaban (ELIQUIS) 5 mg tab(s)^Take 1 tablet by mouth twice daily.^Disp: 60 tablet^Rfl: 11 linaclotide (LINZESS) 145 mcg capsule^Take 145 mcg by mouth DAILY (6 AM).^Disp: ^Rfl: acyclovir (ZOVIRAX) 400 mg tablet^Take 1 tablet by mouth twice daily.^Disp: 60 tablet^Rfl: 5 ondansetron (ZOFRAN) 8 mg tablet^Take 1 tablet by mouth every 8 hours as needed for nausea/vomiting.^Disp: 30 tablet^Rfl: 2 clonazePAM (KLONOPIN) 0.5 mg tablet^Take 0.5 mg by mouth once daily.^Disp: ^Rfl: glimepiride (AMARYL) 2 mg tablet^Take 2 mg by mouth twice daily with meals. Take 2 capsules by mouth in AM & 2 capsule in PM.^Disp: ^Rfl: amLODIPine (NORVASC) 5 mg tablet^Take 5 mg by mouth once daily.^Disp: ^Rfl: atorvastatin (LIPITOR) 10 mg tablet^Take 10 mg by mouth once daily.^Disp: ^Rfl: losartan (COZAAR) 50 mg tablet^Take 50 mg by mouth once daily.^Disp: ^Rfl: Allergies: ALLERGIES No Known Allergies PAST MEDICAL HISTORY Diagnosis Date Arthritis Chronic diarrhea Diabetes mellitus (HCC) Essential hypertension Mixed hyperlipidemia Pulmonary embolism (HCC) PAST SURGICAL HISTORY Procedure Laterality Date REPAIR INCISIONAL HERNIA,REDUCIBLE 8th grade SKIN BX, 1 LESION 06/2022 FAMILY HISTORY Problem Relation Age of Onset Diabetes Mother Hypertension Mother Renal Disease Mother Hypertension Father Diabetes Father Hypertension Sister Diabetes Sister No Known Problems Sister No Known Problems Sister No Known Problems Sister No Known Problems Sister Heart Sister Hypertension Brother Diabetes Brother Hyperlipidemia Brother Heart Brother Hypertension Maternal Grandmother Diabetes Maternal Grandmother Colon Cancer Paternal Grandmother Hypertension Paternal Grandfather Social History Socioeconomic History Marital status: Tobacco Use Smoking status: Never Smokeless tobacco: Never Vaping Use Vaping Use: Never used Substance and Sexual Activity Alcohol use: Yes Comment: social Drug use: Never Sexual Orientation: Straight (not lesbian or chen) Gender Identity: Male Sex Assigned at : Male Preferred Pronouns: he/him/his Steps taken to transition, if any: Future plans to transition, if any: Current organs: Organs present at or expected at to develop: Organs hormonally enhanced or developed: Organs surgically enhanced or constructed: Other information about patient's sexuality and/or gender identity that may impact their care: ECOG PERFORMANCE STATUS: 1- Restricted in physically strenuous activity. Carries out light duty. Karnofsky Performance Status Scale: 80 - Normal activity with effort, some signs or symptoms of disease. PE: BP 170/82 Pulse 51 Temp (Src) 97.2 (Temporal) Resp 18 Wt 194 lb 8 oz (88.2kg) SpO2 100% General appearance: Well appearing, alert, in no acute distress, well-hydrated, well nourished. Skin: Skin color, texture, turgor normal, no suspicious rashes or lesions Head: Normocephalic, no masses, lesions, tenderness or abnormalities Eyes: Anicteric sclera. Ears: External ears normal. Nose/Sinuses: Nares normal Oropharynx: Lips, mucosa, and tongue normal, teeth and gums normal, oropharynx normal Neck: Supple, no adenopathy Back: no pain to palpation Lungs: Lungs clear to auscultation. No wheezing, rhonchi, rales Heart: RRR without murmur, gallop, or rubs. Abdomen: Abdomen soft, non-tender. Bowel sounds normal. No masses, organomegaly Extremities: No deformities, edema, skin discoloration, clubbing or cyanosis. Good capillary refill. Musculoskeletal: No joint swelling, deformity, or tenderness Peripheral pulses: Capillary refill <2secs, strong peripheral pulses Neuro: Gait normal. Assessment/Plan: Multiple myeloma not having achieved remission - Oseas Joseph is here for pretransplant evaluation - complete evaluation testing. - Oseas Sanai Jake is aware that should further testing be required we would call and set up at [facility]. - If patient would like specific tests results prior to their pre transplant appointment, they can call their RNCC. - reviewed Bone marrow bx procedure, risks and benefits, pt signed consent Primary hypertension - BP elevated likely due to stress - recommend checking at home for baseline - continue current medications at this time Type 2 diabetes mellitus without complication, without long-term current use of insulin (HCC) - BS elevated on days he receives steroids. - he had his glimepiride increased to 4mg BID Insomnia - restless in his sleep without taking klonopin, can be aggressive in sleep and this has been foundto be helpful, he has been on it for many years. Blurred vision and increased hearing loss - blurred vision is likely steroid induced (either elevated BS or the beginning of cataracts) - f/u with ophtho 3 months post chemo - should have hearing checked after transplant as patient knows he needs hearing aids. I spent a total of 30 minutes on the date of the service which included preparing to see the patient, [id number] patient care, completing clinical documentation, obtaining and/or reviewing separately obtained history, performing a medically appropriate examination, counseling and educating the pat ient/family/caregiver, ordering medications, tests, or procedures, and communicating results to thepatient/family/caregiver. An opportunity for patient to ask questions was provided. Understanding of the information given inthis visit was stated, and patient is in agreement with the recommendations as explained here. Follow up: PreBMT appt Tesfaye Reveles APRN.CNP documented in this encounterFlower Hospital06-26-2023 History of Present illness Narrative* Caty M Saporito, RT(R) - 04/17/2023 12:10 PM EDT Radiology Service Progress Note PATIENT NAME: Oseas Joseph DATE OF SERVICE: April 17, 2023 TIME: 12:12 PM PATIENT IDENTITY VERIFICATION COMPLETED USING TWO (2) IDENTIFIERS: Name and Date of confirmedby patient verbally. FALL SCREENING: Has the patient had 2 falls in the last year or 1 fall with injury or currently using an Ambulatory Assistive Device (Walker, Cane, Wheelchair, Crutches, etc.)? No PATIENT GENDER DATA: Male PATIENT RELEVANT IMPLANT DATA REVIEWED: Not Applicable RADIOLOGY DEPARTMENT: General X-ray: Exam(s) Completed: Chest X-Ray PERIPHERAL IV DATA: Not applicable SIGNED BY: RT Nav(R) April 17, 2023 12:12 PM documented in this encounterFlower Hospital06-22-2023 Miscellaneous Notes* Telephone Encounter - Betsy Henriquez LPN - 04/13/2023 8:09 AM EDT [employer] auth # [id number]. Please send electronically. Betsy Henriquez LPN documented in this encounterFlower Hospital06-06-2023 History of Present illness Narrative* Bright Thao APRN.EVELIN - 03/28/2023 10:39 AM EDT Chief Complaint Patient presents with: Establish Care HPI: Oseas Joseph is a 72 year old male who presents here today for evaluation for treatment today. Per Dr. Mccain's previous note: H/o type 2 diabetes, high cholesterol, hypertension and right bundle branch block. Patient originally presented to the emergency room at [facility] on 04/19/2022 with new onset of confusion that day which had been worsening. Laboratory work-up significant for hypokalemia. CT of the brain was unremarkable. He was admitted. During hospitalization it was noted that hehad been having diarrhea for 6 to 8 weeks. Stool studies were positive for Campylobacter, blood andlactoferrin. C. difficile was negative. CT of the abdomen pelvis on 04/21/2022 noted abnormal pericholecystic edema without gallstones. Renal cysts and colonic diverticulosis were noted. He was found to have elevation of sed rate to 39, CRP 134. His albumin was 2.3. IgA low at 37. He was discharged on azithromycin, potassium and magnesium supplement. He was seen in the outpatient setting for follow-up visit on 07/11/2022. He continued to have one episode of explosive diarrhea daily. This had been going on for about 8 months. CBC on 07/11 showed a white count of 6400. Differential was normal. Hemoglobin 14.9 g/dL. Platelet count 275,000. Chemistries significant for creatinine of 1.29 g/dL. Previously 1.13 g/dL on 04/27/2022.Calcium was 9.3 mg/dL. Total bilirubin, AST, ALT and alkaline phosphatase were normal. LDH was 181.C-reactive protein was less than 2.09. Total protein was 8.8 g/dL. Total IgG was 2462 mg/dL. IgA decreased to 28 mg/dL. IgM normal at 32 mg/dL. On protein electrophoresis, patient was found to have 2M spikes both IgG lambda by immunofixation. For spike was quantitated at 1.2 g/dL and the second was quantitated at 0.6 g/dL. Cytoplasmic and perinuclear ANCA both negative. Atypical p-ANCA negative. Patient described diarrhea as loose, eran stools sometimes explosive typically one bowel movement per day however. He had not observed any blood. Had a colonoscopy December [address] Arteaga. His appetite was normal. He had not lost weight. Denied reflux and nausea. He did get abdominal bloating associated with the diarrhea. He denied musculoskeletal pain. He denied symptoms of sensory neuropathy. He sees an team supervisor once a year for dilated exam. He has not been told he has retinopathy. Recent removal of early melanoma back. Blue nevus right ankle--required WLE--scheduled. PMR--about 15 years ago. Patient underwent colonoscopy on 09/21/2022. Preparation of the colon was fair. -One 6 mm polyp at the ileocecal valve, removed with a hot snare. Resected and retrieved. -One 5 mm polyp in the ascending colon, removed with a hot snare. Resected and retrieved. -Congested mucosa in the descending colon, at the splenic flexure, in the ascending colon and in the cecum. Biopsied. -Diverticulosis in the recto-sigmoid colon, in the sigmoid colon and in the descending colon. -Stool in the rectum, in the sigmoid colon, in the descending colon and at the hepatic flexure. Fluid aspiration performed. -The examined portion of the ileum was normal. Biopsied. Pathology: A. Ileocecal valve polyp, biopsy: -Consistent with fibrolipomatous polyp. -See comment. B. Small bowel, biopsy: -No pathologic change. C. Cecum, biopsy: -Mild melanosis coli. D. Colon, random biopsy: -Mild melanosis coli. E. Ascending colon polyp, biopsy: -Fragments of tubular adenoma. B, C, D & E - No congophilic material identified. Congo red stain with matched control is negative. ADDENDUM C & D. No congophilic material is noted in these biopsies on light and polarized microscopy. Congo Red stain with matched control was used in the evaluation of this case. He was diagnosed with pancreatic insufficiency and was to start pancreatic enzyme replacement. Patient had a venous duplex ultrasound on 12/16/2022 for right leg pain. That study demonstrated no evidence of DVT in the right leg. He developed chest pain and increasing shortness of breath. Went to the ED on 01/16/2023. PE protocol chest CT demonstrated multiple bilateral pulmonary emboli involving the distal portion of both theright and left main pulmonary arteries as well as branches of the upper and lower lobe pulmonary arteries, more prominent on the right side. Platelet count was 67,000. Patient was admitted and placedon unfractionated heparin with bolus. The next morning platelet count was 62,000. He was rotated toapixaban and discharged. Echocardiogram performed 01/17/2023 demonstrated normal LV size. There was moderate concentric LVH. Left ventricular systolic function was normal with an estimated ejection fraction at 60%. There was stage I diastolic dysfunction. The pulmonary artery systolic pressure was 58 mmHg. The global longitudinal strain was -11.5% (abnormal). The global longitudinal strain was moderately abnormal. (Previous echocardiogram 04/20/2022 demonstrated right ventricular systolic pressure estimated at 22 mmHg. Diastolic function was indeterminate. Right ventricular strain was not determined). His chest pain has improved. He is still short of breath with heavier exertion and sometimes walking from room to room he finds himself breathing heavier. He has been taking apixaban 10 mg twice daily. No bleeding issues. Current therapy: 1) RVd. Cycle #1 began 11/09/2022. 2) Zometa. No new concerns today. Pt. here today with family members. Appetite:Good. Wt. stable. Energy level:Good. Denies fevers. Mouth:denies sores Resp:denies cough or sob Cardiac:denies chest pain/palpitations GI:denies abd pain, n/v, moving :denies dysuria/hematuria Extrem:denies pain Neuro:denies symptoms of neuropathy Skin:denies rashes-did have a rash to upper legs-revlimid was held and resolved Heme:denies bleeding, on eliquis The ROS is otherwise negative. Past medical history, appointments, medications, allergies reviewed. No changes. EXAM: BP 149/80 Pulse 63 Temp 36.8 C (98.3 F) Resp 16 Wt 87.8 kg (193 lb 8 oz) SpO2 100% BMI 25.90 kg/m APPEARANCE Well appearing, alert, in no acute distress, well-hydrated, well nourished. HEART RRR with normal S1 and S2, no murmurs LUNG clear to auscultation LYMPH NODES No cervical lymphadenopathy, No supraclavicular lymphadenopathy, and No axillary lymphadenopathy. ABDOMEN bowel sounds normoactive, soft, non-tender EXTREMITIES No edema NEURO Awake, alert and oriented x 3, Normal gait, and No involuntary motions. SKIN Skin color, texture, turgor normal, no suspicious rashes or lesions LABS: Component Latest Ref Rng & Units 03/14/2023 03/17/2023 03/21/2023 03/28/2023 WBC 3.70 - 11.00 k/uL 6.31 7.74 6.82 3.95 RBC 4.20 - 6.00 m/uL 4.21 4.01 (L) 3.82 (L) 3.80 (L) Hemoglobin 13.0 - 17.0 g/dL 12.6 (L) 12.2 (L) 11.7 (L) 11.8 (L) Hematocrit 39.0 - 51.0 % 38.4 (L) 37.6 (L) 35.9 (L) 35.8 (L) MCV 80.0 - 100.0 fL 91.2 93.8 94.0 94.2 MCH 26.0 - 34.0 pg 29.9 30.4 30.6 31.1 MCHC 30.5 - 36.0 g/dL 32.8 32.4 32.6 33.0 RDW-CV 11.5 - 15.0 % 17.0 (H) 16.9 (H) 16.9 (H) 16.2 (H) Platelet Count 150 - 400 k/uL 158 110 (L) 99 (L) 226 MPV 9.0 - 12.7 fL 12.1 12.5 13.6 (H) 9.8 Neut% % 94.9 60.4 71.4 62.6 Abs Neut (ANC) 1.45 - 7.50 k/uL 5.99 4.67 4.87 2.47 Lymph% % 2.5 8.0 4.4 15.4 Abs Lymph 1.00 - 4.00 k/uL 0.16 (L) 0.62 (L) 0.30 (L) 0.61 (L) Morton% % 1.3 14.3 9.4 14.4 Abs Morton <0.87 k/uL 0.08 1.11 (H) 0.64 0.57 Eosin% % 0.5 16.0 14.1 6.8 Abs Eosin <0.46 k/uL 0.03 1.24 (H) 0.96 (H) 0.27 Baso% % 0.2 0.4 0.1 0.5 Abs Baso <0.11 k/uL <0.03 0.03 <0.03 <0.03 Immature Gran % % 0.6 0.9 0.6 0.3 IMMATURE GRANS (ABS) <0.10 k/uL 0.04 0.07 0.04 <0.03 NRBC /100 WBC 0.0 0.0 0.0 0.0 Absolute nRBC <0.01 k/uL <0.01 <0.01 <0.01 <0.01 DTYPE Auto Auto Auto Auto CMP: Pending ASSESSMENT/PLAN: 1. Multiple myeloma not having achieved remission (HCC) - ICD9: 203.00, ICD10: C90.00 IgG lambda multiple myeloma. Per Dr. Mccain's previous note 02/28/23: Assessment: -The patient is a 72-year-old male has a past medical history significant for diabetes and chronic diarrhea that was characterized by one explosive watery stool daily (recently diagnosed with pancreatic insufficiency). Was hospitalized 03/2022 when diarrhea significantly worsened and he was diagnosed with and treated for Campylobacter infection. During that evaluation, was found to have two IgG lambda monoclonal antibodies. He did not have hypercalcemia or anemia but had elevated serum creatinine (which may be related to volume depletion when hospitalized for diarrhea and mental status change). 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 Low to intermediate risk disease (PCs 20%). -Imaging--no lytic lesions on whole body CT; Liver cyst and splenic nodule (6-12 month f/u MRI recommended). -Bone marrow negative for amyoid. -Colonic biopsies negative for amyloid. -Subsequent MRI of spine and pelvis revealed two T2 hyperintense foci in the pelvis, one in the left sacral rebeka and one in the right ischium. -The finding of the bone lesions on MRI fulfilled criteria for multiple myeloma. -FISH panel revealed (11;14) (q13;q32) (IGH/CCND1) translocation consistent with the presence of a plasma cell neoplasm associated with standard risk disease. -R-ISS stage I (serum beta microglobulin less than 3.5 mg/L and serum albumin greater than 3.5 g/dL; standard risk disease by FISH testing as outlined above and serum LDH less than upper limit of normal). -PS ECOG 1 (new PE). -He continues to tolerate VRd very well, but had minimal response after 3 cycles VRd (~30% reduction in MP #1). -Now that on daratumumab, he has had a 70% decrease in serum monoclonal protein. -In order to maximize response I suggested rotating to tighter schedule with Velcade administered on days 1, 4, 8 and 11 with daratumumab on days 1, 8 and 15. Lenalidomide days 1 through 14 followed by 1 week off with cycles repeating every 3 weeks. -Answered all of his and his family's questions to their satisfaction. Plan: -Change D-VRd to schedule outlined above. -Dexamethasone 20 mg on days 1, 8 and 15 every cycle. He did no longer has to take dexamethasone ondays 2, 9 and 16. -Restart lenalidomide day 1 next week on Monday. -Continue monthly Zometa. -Every 3-week assessment of serum monoclonal protein. -MRI abdomen in 6 months to follow-up on MRI liver findings from 09/01/2022. Supportive care: ID: Plan: -Continue Acyclovir for shingles prophylaxis up to 6 months after stopping bortezomib. Heme: -No anemia. -Reviewed CBC from today. Counts allow continued therapy. Plan: -Monitor counts. Skeletal: -Only lytic lesions observed over those in the pelvic bones on MRI initially. -Symptomatic from the left hip degenerative changes. Steroid injection yesterday helped. Plan: -Continue monthly Zometa tomorrow. -Follow-up with orthopedic surgery. (I26.99) Acute 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 acute cor pulmonale, unspecified pulmonary embolism type (HCC) Assessment: -B/L PE on ASA. -Evidence of pulmonary hypertension on echocardiogram. -Tolerating apixaban well. -Symptoms improving. Plan: -Continue apixaban. - Overall tolerating VRd well. - Tolerating zometa well. - Reviewed CBC with pt. - CMP pending. - No bleeding issues on eliquis. - Continue current medications. - Continue monthly zometa. - Proceed as scheduled today for treatment pending all labs. - Follow up as scheduled. - Pt. aware to call office with any questions/concerns. The patient indicates understanding of these issues and agrees with the plan. All documentation from previous visit of 02/28/23-Dr. Mccain was copied and pasted, documentation has been reviewed and edited as necessary for today's visit. Bright Thao APRN.EVELIN documented in this encounterFlower Hospital06-05-2023 Miscellaneous Notes* Telephone Encounter - Betsy Henriquez LPN - 03/27/2023 3:48 PM EDT Schedule updated and patient's notified. Betsy Henriquez LPN * Telephone Encounter - Betsy Henriquez LPN - 03/27/2023 11:58 AM EDT All questions relating to Revlimid answered. Spouse had additional questions regarding patient's treatment schedule. It appears C2 is not scheduled correctly and I have brought this to the attention of the schedulers. I will contact patient's once the issue has been resolved. Betsy Henriquez LPN * Telephone Encounter - Breonna Zhu - 03/27/2023 10:58 AM EDT Spouse calling with questions about Revlimid. documented in this encounterFlower Hospital06-02-2023 Miscellaneous Notes* Telephone Encounter - Betsy Henriquez LPN - 03/24/2023 9:41 AM EDT [employer] auth # [id number]. Please send new Rx to reflect 21 day cycle. Betsy Henriquez LPN documented in this encounterFlower Hospital05-30-2023 History of Present illness Narrative* Louise Leal RN - 03/21/2023 11:20 AM EDT Pt states he noticed a subtle rash on his trunk and a small patch on his left thigh about 10 days ago. States it is improving to an estimated 20% left. Pt states it has never itched or bothered him at all. Pt is on day 14 of his Revlimid and then off 7 days. Will start C2 next week. Pt states he took his decadron at home. Denies any questions or concerns. Louise Leal RN documented in this encounterFlower Hospital05-09-2023 History of Present illness Narrative* Connie Chavarria Rush, - 02/28/2023 11:08 AM EDT Oncologic problem(s): 1) IgG lambda multiple myeloma. HPI: The patient is a 72-year-old male with a past medical history significant for type 2 diabetes,high cholesterol, hypertension and right bundle branch block. Patient originally presented to the emergency room at [facility] on 04/19/2022 with new onset of confusion that day which had been worsening. Laboratory work-up significant for hypokalemia. CT of the brain was unremarkable. He was admitted. During hospitalization it was noted that hehad been having diarrhea for 6 to 8 weeks. Stool studies were positive for Campylobacter, blood andlactoferrin. C. difficile was negative. CT of the abdomen pelvis on 04/21/2022 noted abnormal pericholecystic edema without gallstones. Renal cysts and colonic diverticulosis were noted. He was found to have elevation of sed rate to 39, CRP 134. His albumin was 2.3. IgA low at 37. He was discharged on azithromycin, potassium and magnesium supplement. He was seen in the outpatient setting for follow-up visit on 07/11/2022. He continued to have one episode of explosive diarrhea daily. This had been going on for about 8 months. CBC on 07/11 showed a white count of 6400. Differential was normal. Hemoglobin 14.9 g/dL. Platelet count 275,000. Chemistries significant for creatinine of 1.29 g/dL. Previously 1.13 g/dL on 04/27/2022.Calcium was 9.3 mg/dL. Total bilirubin, AST, ALT and alkaline phosphatase were normal. LDH was 181.C-reactive protein was less than 2.09. Total protein was 8.8 g/dL. Total IgG was 2462 mg/dL. IgA decreased to 28 mg/dL. IgM normal at 32 mg/dL. On protein electrophoresis, patient was found to have 2M spikes both IgG lambda by immunofixation. For spike was quantitated at 1.2 g/dL and the second was quantitated at 0.6 g/dL. Cytoplasmic and perinuclear ANCA both negative. Atypical p-ANCA negative. Patient described diarrhea as loose, eran stools sometimes explosive typically one bowel movement per day however. He had not observed any blood. Had a colonoscopy December [address] Arteaga. His appetite was normal. He had not lost weight. Denied reflux and nausea. He did get abdominal bloating associated with the diarrhea. He denied musculoskeletal pain. He denied symptoms of sensory neuropathy. He sees an team supervisor once a year for dilated exam. He has not been told he has retinopathy. Recent removal of early melanoma back. Blue nevus right ankle--required WLE--scheduled. PMR--about 15 years ago. Patient underwent colonoscopy on 09/21/2022. Preparation of the colon was fair. -One 6 mm polyp at the ileocecal valve, removed with a hot snare. Resected and retrieved. -One 5 mm polyp in the ascending colon, removed with a hot snare. Resected and retrieved. -Congested mucosa in the descending colon, at the splenic flexure, in the ascending colon and in the cecum. Biopsied. -Diverticulosis in the recto-sigmoid colon, in the sigmoid colon and in the descending colon. -Stool in the rectum, in the sigmoid colon, in the descending colon and at the hepatic flexure. Fluid aspiration performed. -The examined portion of the ileum was normal. Biopsied. Pathology: A. Ileocecal valve polyp, biopsy: -Consistent with fibrolipomatous polyp. -See comment. B. Small bowel, biopsy: -No pathologic change. C. Cecum, biopsy: -Mild melanosis coli. D. Colon, random biopsy: -Mild melanosis coli. E. Ascending colon polyp, biopsy: -Fragments of tubular adenoma. B, C, D & E - No congophilic material identified. Congo red stain with matched control is negative. ADDENDUM C & D. No congophilic material is noted in these biopsies on light and polarized microscopy. Congo Red stain with matched control was used in the evaluation of this case. He was diagnosed with pancreatic insufficiency and was to start pancreatic enzyme replacement. Patient had a venous duplex ultrasound on 12/16/2022 for right leg pain. That study demonstrated no evidence of DVT in the right leg. He developed chest pain and increasing shortness of breath. Went to the ED on 01/16/2023. PE protocol chest CT demonstrated multiple bilateral pulmonary emboli involving the distal portion of both theright and left main pulmonary arteries as well as branches of the upper and lower lobe pulmonary arteries, more prominent on the right side. Platelet count was 67,000. Patient was admitted and placedon unfractionated heparin with bolus. The next morning platelet count was 62,000. He was rotated toapixaban and discharged. Echocardiogram performed 01/17/2023 demonstrated normal LV size. There was moderate concentric LVH. Left ventricular systolic function was normal with an estimated ejection fraction at 60%. There was stage I diastolic dysfunction. The pulmonary artery systolic pressure was 58 mmHg. The global longitudinal strain was -11.5% (abnormal). The global longitudinal strain was moderately abnormal. (Previous echocardiogram 04/20/2022 demonstrated right ventricular systolic pressure estimated at 22 mmHg. Diastolic function was indeterminate. Right ventricular strain was not determined). His chest pain has improved. He is still short of breath with heavier exertion and sometimes walking from room to room he finds himself breathing heavier. He has been taking apixaban 10 mg twice daily. No bleeding issues. Current therapy: 1) RVd. Cycle #1 began 11/09/2022. 2) Zometa. Presents for ongoing oncologic management. Interim history: No sensory neuropathy but he did fall last evening when approaching his easy chair with a cup of coffee. He had a fall outside yesterday but he was tangled up in some weeds. Taking Klonopin 0.5 mg as a sleep aid. Prescribed by Dr. Bowser. PMH, medications and allergies personally reviewed by me today. Any changes documented in appropriate section. ROS: Constitutional: Denies episodes of fever and night sweats. Not significantly fatigued. Neuro: Denies HAMILTON, vertigo, dizziness and imbalance. HEENT: No recent change in voice, vision or hearing. Resp: Denies cough, wheeze and hemoptysis. Denies shortness of breath at rest. Denies MACE. CVS: Denies exertional chest pain, PND, orthopnea and LE edema. GI: See HPI. : Denies dysuria or gross hematuria. Feels he voids to completion for the most part. 1 episode ofnocturia nightly. Endo: Denies hot flashes. Denies polyuria and polydipsia. Denies heat and cold intolerance. Musculoskeletal: See HPI. Derm: Denies rash. Denies jaundice and diffuse pruritis. Heme: Denies unusual bleeding and unexplained bruising. Psych: Normal mood. PHYSICAL EXAM: Vitals: Blood pressure 136/73, pulse 65, temperature 36.9 C (98.5 F), temperature source Temporal, weight 88.2 kg (194 lb 8 oz), SpO2 99 %. Well-appearing and in no acute distress. EYES: Sclerae are anicteric bilaterally. LYMPHATIC: There is no palpable cervical or supraclavicular adenopathy. RESPIRATORY: Inspiratory breath sounds are of normal intensity in all rashid. No rales, wheezes or rhonchi. Expiratory phase is normal. CARDIOVASCULAR: Rhythm is regular. ABDOMEN: The abdomen is nondistended. Extremities: No swelling or edema. SKIN: No jaundice or rash. Tore a mole on his right ring finger. Brightly erythematous on the surrounding area. No pus. NEUROLOGIC: human resource intern II-XII are grossly intact. No focal motor weakness. DTRs are symmetric and normal. LABS: EKG from [facility] 04/20/2022 demonstrated normal sinus rhythm with left axis deviation and right bundle branch block. PATHOLOGY: Bone marrow biopsy 08/24/2022: A-C. Bone marrow, biopsy core, aspirate clot, touch imprint and aspirate smear: - Plasma cell neoplasm (lambda), representing approximately 20% of bone marrow cellularity. - Cellular (30% excluding plasma cells) bone marrow with trilineage hematopoiesis. - Adequate stainable iron. - See comment. D. Peripheral blood smear: - Unremarkable peripheral blood smear. - See comment. The patient is investigated for M protein characterized as IgG kappa. The abnormal findings in this case consist mainly of a population of monotypic lambda plasma cells representing approximately 20% of total bone marrow cellularity. In conclusion, the findings in this case are diagnostic of a plasma cell neoplasm. Further classification requires correlation with the clinical, laboratory and etiologic findings. Conventional cytogenetic analysis may provide additional relevant information. Other: Examination under polarized light of a Congo red stain performed on this biopsy identifies no evidence of amorphous material with abnormal discoloration (no amyloid). Immunohistochemical stains have been performed on sections of fixed, paraffin-embedded tissue with appropriately staining controls. The stains for CD138, kappa or lambda immunoglobulin light chains highlight the population ofmonotypic lambda plasma cells representing approximately 20% of total cellularity. IMAGING: Whole-body CT 08/11/2022: IMPRESSION: 1. No suspicious lytic lesions are identified. 2. Nonspecific fat stranding in the left lower quadrant mesentery with a focus of soft tissue whichcould represent an enlarged lymph node. The appearance is nonspecific, and the differential based on the appearance includes mesenteric panniculitis and lymphoma, among other etiologies. Management considerations can include PET/CT or short-term follow-up CT abdomen and pelvis in 6 weeks. 3. No acute abnormality in the chest. Scattered pulmonary nodules as large as 5 mm below size criteria for follow-up. 4. Other nonacute and nonaggressive findings as per the body of the report. CT A/P 08/26/2022: Nonspecific mesenteric stranding with probably a single mildly enlarged mesenteric lymph node. These findings are nonspecific. Well-defined upper abdominal mass likely extrahepatic in origin but contiguous to the liver. Considerations include both a complex cyst and a solid mass. Recommend correlation with MR of liver with IV contrast. Small splenic and intrahepatic densities probably benign. Right lower lobe pulmonary nodule. MRI Liver 09/01/2022: IMPRESSION: There is a 3.5 x 3.6 cm benign cyst along the posterior aspect of the left lobe of the liver. Additional 6 mm cyst within segment IVb of the liver. There is a 9 mm enhancing lesion superior margin of the spleen. The appearance of this is nonspecific but could represent hemangioma or other lesions. Follow-up MRI in 6-12 months is recommended to assess for stability. MRI spine and pelvis 10/06/2022: IMPRESSION: Cervical: Moderate degenerative disc disease at C3-C4 causing moderate canal stenosis and severe right neural foraminal stenosis. No pathologic enhancement. No marrow signal abnormality in the cervical spine. Thoracic: Normal MRI thoracic spine without and with contrast. No definite marrow signal abnormality. No abnormal extraosseous soft tissue. No pathologic enhancement. Lumbar: Mild degenerative disc disease at L4-L5. No marrow signal abnormality. No extraosseous soft tissue. No pathologic enhancement. Normal appearance of the conus medullaris and cauda equina. Cervical Anatomic Variant: None. Assume 7 cervical vertebrae with counting from the craniocervical junction. Anatomic Thoracic/Lumbar Variant: None. L4-5 is considered the level of the iliac crest and assume there are 5 lumbar-type vertebrae. IMPRESSION: 1. 2 SMALL ENHANCING MARROW LESIONS DESCRIBED CONCERNING FOR MYELOMA LESIONS GIVEN HISTORY. 2. BILATERAL MODERATE HIP OSTEOARTHRITIS. 3. PARALABRAL OR GANGLION CYST AT THE LEFT THIGH. Bone Marrow: 6 mm T2 hyperintense focus at the LEFT sacral ala with low intrinsic T1 signal and mild homogenous enhancement (29:9). 10 mm T2 hyperintense, T1 hypointense and enhancing focus in the right ischium (29:10). No fractures. ASSESSMENT/PLAN: (C90.00) Multiple myeloma not having achieved remission (HCC) (primary encounter diagnosis) Assessment: -The patient is a 72-year-old male has a past medical history significant for diabetes and chronic diarrhea that was characterized by one explosive watery stool daily (recently diagnosed with pancreatic insufficiency). Was hospitalized 03/2022 when diarrhea significantly worsened and he was diagnosed with and treated for Campylobacter infection. During that evaluation, was found to have two IgG lambda monoclonal antibodies. He did not have hypercalcemia or anemia but had elevated serum creatinine (which may be related to volume depletion when hospitalized for diarrhea and mental status change). 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 Low to intermediate risk disease (PCs 20%). -Imaging--no lytic lesions on whole body CT; Liver cyst and splenic nodule (6-12 month f/u MRI recommended). -Bone marrow negative for amyoid. -Colonic biopsies negative for amyloid. -Subsequent MRI of spine and pelvis revealed two T2 hyperintense foci in the pelvis, one in the left sacral rebeka and one in the right ischium. -The finding of the bone lesions on MRI fulfilled criteria for multiple myeloma. -FISH panel revealed (11;14) (q13;q32) (IGH/CCND1) translocation consistent with the presence of a plasma cell neoplasm associated with standard risk disease. -R-ISS stage I (serum beta microglobulin less than 3.5 mg/L and serum albumin greater than 3.5 g/dL; standard risk disease by FISH testing as outlined above and serum LDH less than upper limit of normal). -PS ECOG 1 (new PE). -He continues to tolerate VRd very well, but had minimal response after 3 cycles VRd (~30% reduction in MP #1). -Now that on daratumumab, he has had a 70% decrease in serum monoclonal protein. -In order to maximize response I suggested rotating to tighter schedule with Velcade administered on days 1, 4, 8 and 11 with daratumumab on days 1, 8 and 15. Lenalidomide days 1 through 14 followed by 1 week off with cycles repeating every 3 weeks. -Answered all of his and his family's questions to their satisfaction. Plan: -Change D-VRd to schedule outlined above. -Dexamethasone 20 mg on days 1, 8 and 15 every cycle. He did no longer has to take dexamethasone ondays 2, 9 and 16. -Restart lenalidomide day 1 next week on Monday. -Continue monthly Zometa. -Every 3-week assessment of serum monoclonal protein. -MRI abdomen in 6 months to follow-up on MRI liver findings from 09/01/2022. Supportive care: ID: Plan: -Continue Acyclovir for shingles prophylaxis up to 6 months after stopping bortezomib. Heme: -No anemia. -Reviewed CBC from today. Counts allow continued therapy. Plan: -Monitor counts. Skeletal: -Only lytic lesions observed over those in the pelvic bones on MRI initially. -Symptomatic from the left hip degenerative changes. Steroid injection yesterday helped. Plan: -Continue monthly Zometa tomorrow. -Follow-up with orthopedic surgery. (I26.99) Acute 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 acute cor pulmonale, unspecified pulmonary embolism type (HCC) Assessment: -B/L PE on ASA. -Evidence of pulmonary hypertension on echocardiogram. -Tolerating apixaban well. -Symptoms improving. Plan: -Continue apixaban. Neuro: -No symptoms of sensory neuropathy currently. Portions of this documentation were copied and pasted from previous office visit notes in order to provide a cohesive continuity of the history. The note has been reviewed and edited and updated as necessary. I spent a total of 50 minutes on the date of the service which included preparing to see the patient, [id number] patient care, completing clinical documentation, obtaining and/or reviewing separately obtained history, performing a medically appropriate examination, counseling and educating the pat ient/family/caregiver, ordering medications (adjusting chemotherapy orders), tests, or procedures, communicating with other HCPs (not separately reported), and communicating results to the patient/family/caregiver. Connie Mccain DO [facility] Miscellaneous Notes* Telephone Encounter - Terri Polanco LPN - 02/20/2023 7:32 AM EDT Patient has been identified by name and date of : Yes Requested Prescriptions Pending Prescriptions Disp Refills lenalidomide (REVLIMID) 25 mg capsule [Pharmacy Med Name: REVLIMID 25MG CAP] 21 capsule 0 Sig: TAKE 1 CAPSULE BY MOUTH DAILY FOR 21 DAYS, THEN 7 DAYS OFF RX INSTRUCTIONS: Patient aware RX will be sent to pharmacy. No need to notify patient. Terri Polanco LPN documented in this encounterFlower [facility]04-24-2023 History of Present illness Narrative* Earl Simpson MD - 02/13/2023 8:04 PM EDT [facility] Department of Hematologic Oncology and Blood Disorders (Elements copied from Dr. Mccain note dated 01/31/23, have been reviewed and updated where appropriate, and all reflect current assessment and medical decision making during today's encounter, February 13, 2023) PATIENT NAME: Oseas Joseph [facility] NO: [id number] DATE OF SERVICE: February 13, 2023 History of Present Illness: Oseas Joseph is a 72 year old male referred to me by Dr. Mccian regarding the role of ASCT for NDMM in first remission. Briefly, 72 yo with a past medical history significant for type 2 diabetes, high cholesterol, hypertension and right bundle branch block presenting w/ a diarrheal illness in Fall 2021. 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 IgA decreased to 28 mg/dL. IgM normal at 32 mg/dL. On protein electrophoresis, patient was found to have 2M spikes both IgG lambda by immunofixation. For spike was quantitated at 1.2 g/dL and the second was quantitated at 0.6 g/dL. Recent removal of early melanoma back. Blue nevus right ankle--required WLE--scheduled. PMR--about 15 years ago. Work up had met criteria for smoldering myeloma (PCs 20%; no end organ damage; baseline MP < 3g/dL [1.08 mg/dL and 0.59 mg/dL at baseline] and involved/uninvolved FLC ratio < 100. Low to intermediate risk disease (PCs 20%). -Imaging--no lytic lesions on whole body CT; Liver cyst and splenic nodule (6-12 month f/u MRI recommended). -Bone marrow negative for amyoid. -Colonic biopsies negative for amyloid. -Subsequent MRI of spine and pelvis revealed two T2 hyperintense foci in the pelvis, one in the left sacral rebeka and one in the right ischium. -The finding of the bone lesions on MRI fulfilled criteria for multiple myeloma. -FISH panel revealed (11;14) (q13;q32) (IGH/CCND1) translocation consistent with the presence of a plasma cell neoplasm associated with standard risk disease. -R-ISS stage I -PS ECOG 1 (new PE). -He continues to tolerate VRd very well. Minimal response after 3 cycles VRd (~30% reduction in MP #1). Thus, was transitioned to zoran-VRD for fourth cycle. Patient had a venous duplex ultrasound on 12/16/2022 for right leg pain. That study demonstrated no evidence of DVT in the right leg. He developed chest pain and increasing shortness of breath. Went to the ED on 01/16/2023. PE protocol chest CT demonstrated multiple bilateral pulmonary emboli involving the distal portion of both theright and left main pulmonary arteries as well as branches of the upper and lower lobe pulmonary arteries, more prominent on the right side. Platelet count was 67,000. Patient was admitted and placedon unfractionated heparin with bolus. The next morning platelet count was 62,000. He was rotated toapixaban and discharged. Echocardiogram performed 01/17/2023 demonstrated normal LV size. There was moderate concentric LVH. Left ventricular systolic function was normal with an estimated ejection fraction at 60%. There was stage I diastolic dysfunction. The pulmonary artery systolic pressure was 58 mmHg. The global longitudinal strain was -11.5% (abnormal). The global longitudinal strain was moderately abnormal. (Previous echocardiogram 04/20/2022 demonstrated right ventricular systolic pressure estimated at 22 mmHg. Diastolic function was indeterminate. Right ventricular strain was not determined). His chest pain has improved. He is still short of breath with heavier exertion and sometimes walking from room to room he finds himself breathing heavier. He has been taking apixaban 10 mg twice daily. No bleeding issues. Otherwise, feels well. REVIEW OF SYSTEMS: Constitutional: No fever, sweats, or weight loss. Eyes: No change in visual acuity, no diplopia, no dryness. ENT: No tinnitus or change in hearing. No nose bleed. No oral pain or dysphagia. No oral ulcers. Cardiovascular: No chest pain or palpitations. Respiratory: No cough or dyspnea. GI: No nausea, vomiting, or abdominal pain. No hepatitis or history of jaundice. No change in bowel habits. Genitourinary: No hematuria, dysuria or abnormal bleeding. Musculoskeletal: No bone pain or arthralgias. No deformities. Skin: No rash or subcutaneous mass. Neurologic: No muscle weakness or paresthesias. Hem/lymph: No swollen glands. PAST MEDICAL HISTORY Diagnosis Date Arthritis Chronic diarrhea Diabetes mellitus (HCC) Essential hypertension Mixed hyperlipidemia Pulmonary embolism (HCC) PAST SURGICAL HISTORY Procedure Laterality Date REPAIR INCISIONAL HERNIA,REDUCIBLE 8th grade SKIN BX, 1 LESION 06/2022 FAMILY HISTORY Problem Relation Age of Onset Diabetes Mother Hypertension Mother Renal Disease Mother Hypertension Father Diabetes Father Hypertension Sister Diabetes Sister No Known Problems Sister No Known Problems Sister No Known Problems Sister No Known Problems Sister Heart Sister Hypertension Brother Diabetes Brother Hyperlipidemia Brother Heart Brother Hypertension Maternal Grandmother Diabetes Maternal Grandmother Colon Cancer Paternal Grandmother Hypertension Paternal Grandfather Social History Tobacco Use Smoking status: Never Smokeless tobacco: Never Vaping Use Vaping Use: Never used Substance Use Topics Alcohol use: Yes Comment: social Drug use: Never Current Outpatient Medications Medication Sig insulin detemir (LEVEMIR FLEXPEN SUBCUTANEOUS) Inject 5 Units subcutaneously daily at bedtime. dexAMETHasone (DECADRON) 4 mg tablet Take 5 tablets by mouth one time a week. on days 2, 9, 16 of the first cycle of daratumumab. lenalidomide (REVLIMID) 25 mg capsule TAKE 1 CAPSULE BY MOUTH DAILY FOR 21 DAYS, THEN 7 DAYS OFF apixaban (ELIQUIS) 5 mg tab(s) Take 1 tablet by mouth twice daily. potassium chloride ER (K-DUR, KLOR-CON) 20 mEq tablet Take 1 tablet by mouth once daily. linaclotide (LINZESS) 145 mcg capsule Take 145 mcg by mouth DAILY (6 AM). acyclovir (ZOVIRAX) 400 mg tablet Take 1 tablet by mouth twice daily. ondansetron (ZOFRAN) 8 mg tablet Take 1 tablet by mouth every 8 hours as needed for nausea/vomiting. clonazePAM (KLONOPIN) 0.5 mg tablet Take 0.5 mg by mouth once daily. glimepiride (AMARYL) 2 mg tablet Take 2 mg by mouth twice daily with meals. Take 2 capsules by mouth in AM & 2 capsule in PM. amLODIPine (NORVASC) 5 mg tablet Take 5 mg by mouth once daily. atorvastatin (LIPITOR) 10 mg tablet Take 10 mg by mouth once daily. losartan (COZAAR) 50 mg tablet Take 50 mg by mouth once daily. No current facility-administered medications for this visit. BP 152/77 Pulse 61 Temp 36.8 C (98.2 F) (Temporal) Resp 18 Ht 184.1 cm (6' 0.48) Wt 86.2kg (190 lb) SpO2 100% BMI 25.43 kg/m ECOG 1 General appearance: well appearing, alert, in no acute distress Skin: negative Eyes: Anicteric sclera. Oropharynx: lips, mucosa, and tongue normal, oropharynx normal Neck: Supple, no adenopathy; normal size, Lungs: lungs clear to auscultation, no wheezing or rhonchi Heart: Negative. RRR without murmur, gallop, or rubs. Abdomen: Normal abdominal exam, Abdomen soft, non-tender. No masses, organomegaly Extremities: Extremities normal. No deformities, edema, or skin discoloration. Musculoskeletal: Spine range of motion normal. 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 RECOMMENDATION: Today, I reviewed w/ the patient and family the PFS benefit of HDT ASCT in consolidation versus Vrd alone per the DETERMINATION study. I emphasized there was no OS benefit. I would consider him an ASCT candidate once follow up for pulm HTN 2/2 PE on DOAC and results of PFTs after 2-3 more cycles of induction therapy. I recommend 2-3 more cycles of D-Vrd, w/ improvement in PASP and adequate end organ function including PFTs, along w/ > or = TN to therapy he would be appropriate for ASCT consideration. I spent a total of 60 minutes on the date of the service which included preparing to see the patient, [id number] patient care, completing clinical documentation, obtaining and/or reviewing separately obtained history, performing a medically appropriate examination, counseling and educating the pat ient/family/caregiver, and care coordination (not separately reported). 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 He is on anticoagulation but has not had any bleeding issues. We will continue monitoring platelet count and hold anticoagulation if indicated. 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 He is on anticoagulation but has not had any bleeding issues. We will continue monitoring platelet count and hold anticoagulation if indicated. 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 He is on anticoagulation but has not had any bleeding issues. We will continue monitoring platelet count and hold anticoagulation if indicated. 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 He is on anticoagulation but has not had any bleeding issues. We will continue monitoring platelet count and hold anticoagulation if indicated. 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 He is on anticoagulation but has not had any bleeding issues. We will continue monitoring platelet count and hold anticoagulation if indicated. 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 He is on anticoagulation but has not had any bleeding issues. We will continue monitoring platelet count and hold anticoagulation if indicated. 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 He is on anticoagulation but has not had any bleeding issues. We will continue monitoring platelet count and hold anticoagulation if indicated. 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 He is on anticoagulation but has not had any bleeding issues. We will continue monitoring platelet count and hold anticoagulation if indicated. 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 He is on anticoagulation but has not had any bleeding issues. We will continue monitoring platelet count and hold anticoagulation if indicated. 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 He is on anticoagulation but has not had any bleeding issues. We will continue monitoring platelet count and hold anticoagulation if indicated. 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 He is on anticoagulation but has not had any bleeding issues. We will continue monitoring platelet count and hold anticoagulation if indicated. 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 He is on anticoagulation but has not had any bleeding issues. We will continue monitoring platelet count and hold anticoagulation if indicated. 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 He is on anticoagulation but has not had any bleeding issues. We will continue monitoring platelet count and hold anticoagulation if indicated. 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 He is on anticoagulation but has not had any bleeding issues. We will continue monitoring platelet count and hold anticoagulation if indicated. 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 He is on anticoagulation but has not had any bleeding issues. We will continue monitoring platelet count and hold anticoagulation if indicated. Smoldering myeloma 08/25/2022 3 documented as of this encounter (statuses as of 05/04/2023) [address]24-[address]23 History of Past illness Narrative* Problem Noted Date Diagnosed Date Resolved Date Disorder involving thrombocytopenia 02/13/2023 04/17/2023 Last Assessment & Plan: Thrombocytopenia secondary to bortezomib and daratumumab. He is on anticoagulation but has not had any bleeding issues. We will continue monitoring platelet count and hold anticoagulation if indicated. Smoldering myeloma 08/25/2022 3 documented as of this encounter (statuses as of 05/04/2023) [place] [id number] History of Past illness Narrative* Problem Noted Date Diagnosed Date Resolved Date Disorder involving thrombocytopenia 02/13/2023 04/17/2023 Last Assessment & Plan: Thrombocytopenia secondary to bortezomib and daratumumab. He is on anticoagulation but has not had any bleeding issues. We will continue monitoring platelet count and hold anticoagulation if indicated. 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 He is on anticoagulation but has not had any bleeding issues. We will continue monitoring platelet count and hold anticoagulation if indicated. Smoldering myeloma 08/25/2022 3 documented as of this encounter (statuses as of 05/14/2023) [address]24-[address]23 History of Past illness Narrative* Problem Noted Date Diagnosed Date Resolved Date Disorder involving thrombocytopenia 02/13/2023 04/17/2023 Last Assessment & Plan: Thrombocytopenia secondary to bortezomib and daratumumab. He is on anticoagulation but has not had any bleeding issues. We will continue monitoring platelet count and hold anticoagulation if indicated. 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 He is on anticoagulation but has not had any bleeding issues. We will continue monitoring platelet count and hold anticoagulation if indicated. 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 He is on anticoagulation but has not had any bleeding issues. We will continue monitoring platelet count and hold anticoagulation if indicated. 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 He is on anticoagulation but has not had any bleeding issues. We will continue monitoring platelet count and hold anticoagulation if indicated. Smoldering myeloma 08/25/2022 3 documented as of this encounter (statuses as of 05/25/2023) [address]24[address]23 History of Past illness Narrative* Problem Noted Date Diagnosed Date Resolved Date Disorder involving thrombocytopenia 02/13/2023 04/17/2023 Last Assessment & Plan: Thrombocytopenia secondary to bortezomib and daratumumab. He is on anticoagulation but has not had any bleeding issues. We will continue monitoring platelet count and hold anticoagulation if indicated. Smoldering myeloma 08/25/2022 3 documented as of this encounter (statuses as of 05/26/2023) [address]24[address]23 History of Past illness Narrative* Problem Noted Date Diagnosed Date Resolved Date Disorder involving thrombocytopenia 02/13/2023 04/17/2023 Last Assessment & Plan: Thrombocytopenia secondary to bortezomib and daratumumab. He is on anticoagulation but has not had any bleeding issues. We will continue monitoring platelet count and hold anticoagulation if indicated. Smoldering myeloma 08/25/2022 3 documented as of this encounter (statuses as of 05/31/2023) [facility]04-24-2023 Nurse Note* Jeremie Saleh LPN - 02/13/2023 12:20 PM EDT Additional intake questions: Has the patient had fever, nausea, vomiting, diarrhea, constipation, fatigue for > 1 week? No Does the patient have a decreased appetite? No Does patient want to see a Roller Man? No (yes to any of above refer patient to schedulers for dietitian appointment) ) Does patient have any new or increased numbness or tingling of extremities? No Is patient interested in fertility information? No Does patient need any prescription refills? No Does patient have an advanced directive in place? No, [facility] referred to [facility] Miscellaneous Notes* Telephone Encounter - Florence Momin RN - 02/09/2023 12:19 PM EDT [place] Care Coordination FOLLOW-UP NOTE Patient identified by name and date of . YES Spoke to spouse Summary: (Reason for follow-up) Follow-up from yesterday Concerns: (New Barriers to care) asking if our office has heard from patients PCP regarding next steps for managing patients glucose. Our office faxed recent labs results with a note asking if insulin sliding scale would be appropriate for patient. Our office has not heard back from PCP. was instructed to contact PCP regarding patients hyperglycemia. Glucose today was 382. stated understanding. Care Coordination Plan: instructed to notify our office of any medication changes. Florence Momin RN February 09, 2023 * Telephone Encounter - Betsy Henriquez LPN - 02/09/2023 10:38 AM EDT See [employer] message from yesterday. Betsy Henriquez LPN * Telephone Encounter - Joao Jeff - 02/09/2023 10:25 AM EDT Oseas Joseph('s) spouse: Louise is calling Connie Mccain DO today regarding Care Coordination. Louise is asking for Caty in Dr. Mccain's office to please link trainer mechanic her a call back at [phone] discuss her husbands glucose count. Patient has been identified by name and birthdate. Duration of symptoms: N/A Requesting response back: (home) [phone] (cell) Joao Jeff February 09, 2023 [facility] Miscellaneous Notes* Telephone Encounter - Betsy Henriquez LPN - 02/08/2023 4:46 PM EDT I spoke with patient's . Patient saw Dr. Lugo at the end of December and his glimepiride was increased from 3 tablets per day to 4 tablets per day ( 2 in am, 2 in pm). I have faxed today's lab results, current medication list and a note to Dr. Lugo asking if an insulin sliding scale would be appropriate. Patient's aware and knows we will notify her with any further instructions. Betsy Henriquez LPN documented in [facility] encounterF[facility]04-14-2023 Miscellaneous Notes* Telephone Encounter - Florence Momin RN - 02/03/2023 10:11 AM EDT CYCLE 1/DAY 1 POST TREATMENT CALL Today's date: February 03, 2023 Treatment Regimen: Darzalex [id number] Date: 02/01/2023 Called patient to follow-up on symptom management. Spoke with patients SYMPTOM ASSESSMENT Neuro: None CV/Resp: None GI/: None Integument: Itching arms and rash on Monday. Splotchy like a hive, not raised Started when he was heading home from treatment. Benadryl and put lotion on his arms and the rash/itching resolved within 20 minutes. Activity: Patient reported no changes in energy level, energy level good Pain: No=0 (pain 0 on a scale of 0-10). Fever: No Chills: No Just an FYI- patient developed itching and rash on his arms after he left treatment on Monday. Splotchy like a hive, not raised. gave patient benadryl and applied regular lotion on his skin. 20 minutes later the rash resolved. denies any respiratory symptoms or tongue/throat swelling. Patient is feeling well today. Any new referrals needed? No Reinforced CURRENT treatment education based on current and anticipated symptoms. Discussed port/line care and patient verbalizes understanding: Not Applicable Patient instructed to contact office or after hours Hematology/Oncology fellow for: temperature ? 100.4; questions or concerns. Patient verbalized understanding of when to seek medical attention and after hours number protocol. Florence Momin RN documented in [facility] encounterF[facility]04-[facility] History of Present illness Narrative* Connie Mccain, - 01/31/2023 10:36 AM EDT Oncologic problem(s): 1) IgG lambda multiple myeloma. HPI: The patient is a 72-year-old male with a past medical history significant for type 2 diabetes,high cholesterol, hypertension and right bundle branch block. Patient originally presented to the emergency room at [facility] on 04/19/2022 with new onset of confusion that day which had been worsening. Laboratory work-up significant for hypokalemia. CT of the brain was unremarkable. He was admitted. During hospitalization it was noted that hehad been having diarrhea for 6 to 8 weeks. Stool studies were positive for Campylobacter, blood andlactoferrin. C. difficile was negative. CT of the abdomen pelvis on 04/21/2022 noted abnormal pericholecystic edema without gallstones. Renal cysts and colonic diverticulosis were noted. He was found to have elevation of sed rate to 39, CRP 134. His albumin was 2.3. IgA low at 37. He was discharged on azithromycin, potassium and magnesium supplement. He was seen in the outpatient setting for follow-up visit on 07/11/2022. He continued to have one episode of explosive diarrhea daily. This had been going on for about 8 months. CBC on 07/11 showed a white count of 6400. Differential was normal. Hemoglobin 14.9 g/dL. Platelet count 275,000. Chemistries significant for creatinine of 1.29 g/dL. Previously 1.13 g/dL on 04/27/2022.Calcium was 9.3 mg/dL. Total bilirubin, AST, ALT and alkaline phosphatase were normal. LDH was 181.C-reactive protein was less than 2.09. Total protein was 8.8 g/dL. Total IgG was 2462 mg/dL. IgA decreased to 28 mg/dL. IgM normal at 32 mg/dL. On protein electrophoresis, patient was found to have 2M spikes both IgG lambda by immunofixation. For spike was quantitated at 1.2 g/dL and the second was quantitated at 0.6 g/dL. Cytoplasmic and perinuclear ANCA both negative. Atypical p-ANCA negative. Patient described diarrhea as loose, eran stools sometimes explosive typically one bowel movement per day however. He had not observed any blood. Had a colonoscopy [address] Arteaga. His appetite was normal. He had not lost weight. Denied reflux and nausea. He did get abdominal bloating associated with the diarrhea. He denied musculoskeletal pain. He denied symptoms of sensory neuropathy. He sees an team supervisor once a year for dilated exam. He has not been told he has retinopathy. Recent removal of early melanoma back. Blue nevus right ankle--required WLE--scheduled. PMR--about 15 years ago. Patient underwent colonoscopy on 09/21/2022. Preparation of the colon was fair. -One 6 mm polyp at the ileocecal valve, removed with a hot snare. Resected and retrieved. -One 5 mm polyp in the ascending colon, removed with a hot snare. Resected and retrieved. -Congested mucosa in the descending colon, at the splenic flexure, in the ascending colon and in the cecum. Biopsied. -Diverticulosis in the recto-sigmoid colon, in the sigmoid colon and in the descending colon. -Stool in the rectum, in the sigmoid colon, in the descending colon and at the hepatic flexure. Fluid aspiration performed. -The examined portion of the ileum was normal. Biopsied. Pathology: A. Ileocecal valve polyp, biopsy: -Consistent with fibrolipomatous polyp. -See comment. B. Small bowel, biopsy: -No pathologic change. C. Cecum, biopsy: -Mild melanosis coli. D. Colon, random biopsy: -Mild melanosis coli. E. Ascending colon polyp, biopsy: -Fragments of tubular adenoma. B, C, D & E - No congophilic material identified. Congo red stain with matched control is negative. ADDENDUM C & D. No congophilic material is noted in these biopsies on light and polarized microscopy. Congo Red stain with matched control was used in the evaluation of this case. He was diagnosed with pancreatic insufficiency and was to start pancreatic enzyme replacement. Patient had a venous duplex ultrasound on 12/16/2022 for right leg pain. That study demonstrated no evidence of DVT in the right leg. He developed chest pain and increasing shortness of breath. Went to the ED on 01/16/2023. PE protocol chest CT demonstrated multiple bilateral pulmonary emboli involving the distal portion of both theright and left main pulmonary arteries as well as branches of the upper and lower lobe pulmonary arteries, more prominent on the right side. Platelet count was 67,000. Patient was admitted and placedon unfractionated heparin with bolus. The next morning platelet count was 62,000. He was rotated toapixaban and discharged. Echocardiogram performed 01/17/2023 demonstrated normal LV size. There was moderate concentric LVH. Left ventricular systolic function was normal with an estimated ejection fraction at 60%. There was stage I diastolic dysfunction. The pulmonary artery systolic pressure was 58 mmHg. The global longitudinal strain was -11.5% (abnormal). The global longitudinal strain was moderately abnormal. (Previous echocardiogram 04/20/2022 demonstrated right ventricular systolic pressure estimated at 22 mmHg. Diastolic function was indeterminate. Right ventricular strain was not determined). His chest pain has improved. He is still short of breath with heavier exertion and sometimes walking from room to room he finds himself breathing heavier. He has been taking apixaban 10 mg twice daily. No bleeding issues. Current therapy: 1) RVd. Cycle #1 began 11/09/2022. 2) Zometa. Presents for ongoing oncologic management. Interim history: Had diarrhea starting while in the hospital Starting to subside. No bloody stools. Appetite, excellent. No nausea. No sensory neuropathy. Taking Klonopin 0.5 mg as a sleep aid. Prescribed by Dr. Bowser. PMH, medications and allergies personally reviewed by me today. Any changes documented in appropriate section. ROS: Constitutional: Denies episodes of fever and night sweats. Not significantly fatigued. Neuro: Denies HAMILTON, vertigo, dizziness and imbalance. HEENT: No recent change in voice, vision or hearing. Resp: Denies cough, wheeze and hemoptysis. Denies shortness of breath at rest. Denies MACE. CVS: Denies exertional chest pain, PND, orthopnea and LE edema. GI: See HPI. : Denies dysuria or gross hematuria. Feels he voids to completion for the most part. 1 episode ofnocturia nightly. Endo: Denies hot flashes. Denies polyuria and polydipsia. Denies heat and cold intolerance. Musculoskeletal: See HPI. Derm: Denies rash. Denies jaundice and diffuse pruritis. Heme: Denies unusual bleeding and unexplained bruising. Psych: Normal mood. PHYSICAL EXAM: Vitals: Blood pressure 138/74, pulse 60, temperature 37.1 C (98.8 F), weight 86.9 kg (191 lb 8 oz),SpO2 100 %. Well-appearing and in no acute distress. EYES: Sclerae are anicteric bilaterally. LYMPHATIC: There is no palpable cervical or supraclavicular adenopathy. RESPIRATORY: Inspiratory breath sounds are of normal intensity in all rashid. No rales, wheezes or rhonchi. Expiratory phase is normal. CARDIOVASCULAR: Rhythm is regular. ABDOMEN: The abdomen is nondistended. Extremities: No swelling or edema. SKIN: No jaundice or rash. Tore a mole on his right ring finger. Brightly erythematous on the surrounding area. No pus. NEUROLOGIC: human resource intern II-XII are grossly intact. No focal motor weakness. DTRs are symmetric and normal. LABS: Component Latest Ref Rng & Units 01/31/2023 WBC 3.70 - 11.00 k/uL 4.82 RBC 4.20 - 6.00 m/uL 4.27 Hemoglobin 13.0 - 17.0 g/dL 12.4 (L) Hematocrit 39.0 - 51.0 % 37.9 (L) MCV 80.0 - 100.0 fL 88.8 MCH 26.0 - 34.0 pg 29.0 MCHC 30.5 - 36.0 g/dL 32.7 RDW-CV 11.5 - 15.0 % 16.8 (H) Platelet Count 150 - 400 k/uL 362 MPV 9.0 - 12.7 fL 9.5 Neut% % 63.4 Abs Neut (ANC) 1.45 - 7.50 k/uL 3.05 Lymph% % 23.0 Abs Lymph 1.00 - 4.00 k/uL 1.11 Morton% % 6.8 Abs Morton <0.87 k/uL 0.33 Eosin% % 5.4 Abs Eosin <0.46 k/uL 0.26 Baso% % 0.6 Abs Baso <0.11 k/uL 0.03 Immature Gran % % 0.8 IMMATURE GRANS (ABS) <0.10 k/uL 0.04 NRBC /100 WBC 0.0 Absolute nRBC <0.01 k/uL <0.01 DTYPE Auto Protein, Total 6.3 - 8.0 g/dL 6.5 Albumin 3.9 - 4.9 g/dL 3.7 (L) Calcium 8.5 - 10.2 mg/dL 9.1 Bilirubin, Total 0.2 - 1.3 mg/dL 0.6 Alkaline Phosphatase 38 - 113 U/L 57 AST 14 - 40 U/L 9 (L) ALT 10 - 54 U/L 7 (L) Glucose 74 - 99 mg/dL 191 (H) BUN 9 - 24 mg/dL 19 Creatinine 0.73 - 1.22 mg/dL 1.07 Sodium 136 - 144 mmol/L 138 Potassium 3.7 - 5.1 mmol/L 3.7 Chloride 97 - 105 mmol/L 105 CO2 22 - 30 mmol/L 22 Anion Gap 9 - 18 mmol/L 11 eGFR >=60 mL/min/1.73m 75 Component Latest Ref Rng & Units 08/08/2022 10/26/2022 11/16/2022 12/06/2022 12/21/2022 01/03/2023 Albumin 3.43 - 5.41 g/dL 3.88 4.33 3.99 3.71 3.91 3.96 Alpha 1 Globulin 0.18 - 0.43 g/dL 0.22 0.26 0.35 0.42 0.45 (H) 0.43 Alpha 2 Globulin 0.42 - 0.98 g/dL 0.80 0.65 0.72 0.79 0.97 0.85 Beta Globulin 0.61 - 1.17 g/dL 1.01 0.54 (L) 0.67 0.63 0.78 0.74 Gamma Globulin 0.53 - 1.51 g/dL 2.19 (H) 2.12 (H) 1.98 (H) 1.75 (H) 1.58 (H) 1.61 (H) Interpretation (Prot Electro) No definitive M protein is identified on protein electrophoresis. An M protein is identified on protein electrophoresis. (A) An M protein is identified on protein electrophoresis. (A) An M protein is identified on protein electrophoresis. (A) An M protein is identifiedon protein electrophoresis. (A) An M protein is identified on protein electrophoresis. (A) An M protein is identified on protein electrophoresis. (A) Interpretation Comment for Protein Electrophoresis See separate immunofixation report for characterization of monoclonal gammopathy. See separate immunofixation report for characterization of monoclonal gammopathy. See separate immunofixation report for characterization of monoclonal gammopathy. See separate immunofixation report for characterization of monoclonal gammopathy. See separate immunofixation report for characterization of monoclonal gammopathy. See separate immunofixation report forcharacterization of monoclonal gammopathy. M-Protein Location Gamma Fraction 1 Gamma Fraction 1 Gamma Fraction 1 Gamma Fraction 1 Gamma Fraction 1 Gamma Fraction 1 M-Protein Location 2 Gamma Fraction 2 Gamma Fraction 2 Gamma Fraction 2 Gamma Fraction 2 Gamma Fraction 2 Gamma Fraction 2 M-Protein Concentration <=0.00 g/dL 1.08 (H) 1.12 (H) 1.00 (H) 0.79 (H) 0.80 (H) 0.82 (H) SPE Staff Review Reviewed by Sophie Holbrook M.D., Ph.D Reviewed by Joel Hernandez MD, Ph.D ([id number]) Reviewed by Dr. Tom Patiño MD Reviewed by Eugenie Pickens MD Reviewed by Kyler Thrasher M.D. Reviewed by Joel Hernandez MD, Ph.D ([id number]) M-Protein Concentration 2 <=0.00 g/dL 0.59 (H) 0.62 (H) 0.59 (H) 0.51 (H) 0.49 (H) 0.51 (H) EKG from [facility] 04/20/2022 demonstrated normal sinus rhythm with left axis deviation and right bundle branch block. PATHOLOGY: Bone marrow biopsy 08/24/2022: A-C. Bone marrow, biopsy core, aspirate clot, touch imprint and aspirate smear: - Plasma cell neoplasm (lambda), representing approximately 20% of bone marrow cellularity. - Cellular (30% excluding plasma cells) bone marrow with trilineage hematopoiesis. - Adequate stainable iron. - See comment. D. Peripheral blood smear: - Unremarkable peripheral blood smear. - See comment. The patient is investigated for M protein characterized as IgG kappa. The abnormal findings in this case consist mainly of a population of monotypic lambda plasma cells representing approximately 20% of total bone marrow cellularity. In conclusion, the findings in this case are diagnostic of a plasma cell neoplasm. Further classification requires correlation with the clinical, laboratory and etiologic findings. Conventional cytogenetic analysis may provide additional relevant information. Other: Examination under polarized light of a Congo red stain performed on this biopsy identifies no evidence of amorphous material with abnormal discoloration (no amyloid). Immunohistochemical stains have been performed on sections of fixed, paraffin-embedded tissue with appropriately staining controls. The stains for CD138, kappa or lambda immunoglobulin light chains highlight the population ofmonotypic lambda plasma cells representing approximately 20% of total cellularity. IMAGING: Whole-body CT 08/11/2022: IMPRESSION: 1. No suspicious lytic lesions are identified. 2. Nonspecific fat stranding in the left lower quadrant mesentery with a focus of soft tissue whichcould represent an enlarged lymph node. The appearance is nonspecific, and the differential based on the appearance includes mesenteric panniculitis and lymphoma, among other etiologies. Management considerations can include PET/CT or short-term follow-up CT abdomen and pelvis in 6 weeks. 3. No acute abnormality in the chest. Scattered pulmonary nodules as large as 5 mm below size criteria for follow-up. 4. Other nonacute and nonaggressive findings as per the body of the report. CT A/P 08/26/2022: Nonspecific mesenteric stranding with probably a single mildly enlarged mesenteric lymph node. These findings are nonspecific. Well-defined upper abdominal mass likely extrahepatic in origin but contiguous to the liver. Considerations include both a complex cyst and a solid mass. Recommend correlation with MR of liver with IV contrast. Small splenic and intrahepatic densities probably benign. Right lower lobe pulmonary nodule. MRI Liver 09/01/2022: IMPRESSION: There is a 3.5 x 3.6 cm benign cyst along the posterior aspect of the left lobe of the liver. Additional 6 mm cyst within segment IVb of the liver. There is a 9 mm enhancing lesion superior margin of the spleen. The appearance of this is nonspecific but could represent hemangioma or other lesions. Follow-up MRI in 6-12 months is recommended to assess for stability. MRI spine and pelvis 10/06/2022: IMPRESSION: Cervical: Moderate degenerative disc disease at C3-C4 causing moderate canal stenosis and severe right neural foraminal stenosis. No pathologic enhancement. No marrow signal abnormality in the cervical spine. Thoracic: Normal MRI thoracic spine without and with contrast. No definite marrow signal abnormality. No abnormal extraosseous soft tissue. No pathologic enhancement. Lumbar: Mild degenerative disc disease at L4-L5. No marrow signal abnormality. No extraosseous soft tissue. No pathologic enhancement. Normal appearance of the conus medullaris and cauda equina. Cervical Anatomic Variant: None. Assume 7 cervical vertebrae with counting from the craniocervical junction. Anatomic Thoracic/Lumbar Variant: None. L4-5 is considered the level of the iliac crest and assume there are 5 lumbar-type vertebrae. IMPRESSION: 1. 2 SMALL ENHANCING MARROW LESIONS DESCRIBED CONCERNING FOR MYELOMA LESIONS GIVEN HISTORY. 2. BILATERAL MODERATE HIP OSTEOARTHRITIS. 3. PARALABRAL OR GANGLION CYST AT THE LEFT THIGH. Bone Marrow: 6 mm T2 hyperintense focus at the LEFT sacral ala with low intrinsic T1 signal and mild homogenous enhancement (29:9). 10 mm T2 hyperintense, T1 hypointense and enhancing focus in the right ischium (29:10). No fractures. ASSESSMENT/PLAN: (C90.00) Multiple myeloma not having achieved remission (HCC) (primary encounter diagnosis) Assessment: -The patient is a 72-year-old male has a past medical history significant for diabetes and chronic diarrhea that was characterized by one explosive watery stool daily (recently diagnosed with pancreatic insufficiency). Was hospitalized 03/2022 when diarrhea significantly worsened and he was diagnosed with and treated for Campylobacter infection. During that evaluation, was found to have two IgG lambda monoclonal antibodies. He did not have hypercalcemia or anemia but had elevated serum creatinine (which may be related to volume depletion when hospitalized for diarrhea and mental status change). 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 Low to intermediate risk disease (PCs 20%). -Imaging--no lytic lesions on whole body CT; Liver cyst and splenic nodule (6-12 month f/u MRI recommended). -Bone marrow negative for amyoid. -Colonic biopsies negative for amyloid. -Subsequent MRI of spine and pelvis revealed two T2 hyperintense foci in the pelvis, one in the left sacral rebeka and one in the right ischium. -The finding of the bone lesions on MRI fulfilled criteria for multiple myeloma. -FISH panel revealed (11;14) (q13;q32) (IGH/CCND1) translocation consistent with the presence of a plasma cell neoplasm associated with standard risk disease. -R-ISS stage I (serum beta microglobulin less than 3.5 mg/L and serum albumin greater than 3.5 g/dL; standard risk disease by FISH testing as outlined above and serum LDH less than upper limit of normal). -PS ECOG 1 (new PE). -He continues to tolerate VRd very well. He had onset of diarrhea again when he was in the hospitalfor PE but that is now improving. -Minimal response after 3 cycles VRd (~30% reduction in MP #1). -To begin daratumumab subcutaneously tomorrow. -Answered all of his and his family's questions to their satisfaction. Plan: -Begin daratumumab 02/01. -He will receive dexamethasone 20 mg on the day of daratumumab administration. -Advised 20 mg orally the morning after the first 3 daratumumab injections. May stop after that if no reaction to the first three injections. -Restart lenalidomide when he begins the next cycle of Velcade on 02/01 pending counts. -Continue monthly Zometa. -Monthly assessment of serum monoclonal protein. -Referral to [facility] for autologous stem cell transplant evaluation once see further response. -MRI abdomen in 6 months to follow-up on MRI liver findings from 09/01/2022. Supportive care: ID: Plan: -Continue Acyclovir for shingles prophylaxis up to 6 months after stopping bortezomib. Heme: -No anemia. -Reviewed CBC from today. Counts allow continued therapy. Plan: -Monitor counts. Skeletal: -Only lytic lesions observed over those in the pelvic bones on MRI initially. -Symptomatic from the left hip degenerative changes. Steroid injection yesterday helped. Plan: -Continue monthly Zometa tomorrow. -Follow-up with orthopedic surgery. (I26.99) Acute 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 acute cor pulmonale, unspecified pulmonary embolism type (HCC) Assessment: -B/L PE on ASA. -Evidence of pulmonary hypertension on echocardiogram. -Tolerating apixaban well. -Symptoms improving. Plan: -Continue apixaban. Neuro: -No symptoms of sensory neuropathy currently. Portions of this documentation were copied and pasted from previous office visit notes in order to provide a cohesive continuity of the history. The note has been reviewed and edited and updated as necessary. I spent a total of 30 minutes on the date of the service which included preparing to see the patient, [id number] patient care, completing clinical documentation, obtaining and/or reviewing separately obtained history, performing a medically appropriate examination, counseling and educating the pat ient/family/caregiver, ordering medications, tests, or procedures, and communicating results to thepatient/family/caregiver. Connie Mccain DO documented [facility]04-10-[facility]23 Miscellaneous Notes* Telephone Encounter - Florence Momin RN - 01/30/2023 3:41 PM EDT ONCOLOGY PATIENT EDUCATION NOTE TOPIC: Chemotherapy, Medications: Darzalex READINESS TO LEARN: COGNITIVE ABILITY: Alert and oriented MOTIVATION TO LEARN: Interested FAMILY SUPPORT: High - Very involved in pt care INSTRUCTION PROVIDED TO: Spouse INSTRUCTION PROVIDED BY: Nurse Coordinator PATIENT LEARNS BEST BY: Multiple Methods FACTORS AFFECTING LEARNING: None PHYSICAL LIMITATIONS AFFECTING LEARNING: None LEARNING RESPONSE DIAGNOSIS: Multiple Myeloma METHOD OF INSTRUCTION: Individual instruction Written instruction - handouts Verbal instruction PATIENT/FAMILY RESPONSE: Verbalizes understanding of: CHEMOTHERAPY-Regimen, toxicity and side effects FOLLOW UP PLAN: Patient instructed to call with any further issues Recommend - Recommend continued instruction and follow up as directed Follow up phone call. Contact information given. SUPPLEMENTAL MATERIAL: Written material was provided at this visit with the following information: - Chemotherapy education was provided by a pharmacist NO - Side effect management information was provided/discussed including but not limited to: anemia, appetite changes, arthralgia, diet, electrolyte disturbances, fatigue, mouth hygiene, nausea/vomitting, neutropenia, skin changes YES - Provided important phone numbers and contacts during and after hours. YES - Provided information on symptoms that require immediate assistance. YES - Provided Chemotherapy when to call handouts YES - Preventing infection. YES - Treatment schedule and confirmation of appointment times. YES - Available support groups. YES - The importance of contraception during the course of chemotherapy YES - Neutropenic fever protocol discussed with patient, which included the importance of reporting anyfever of 100.4F (38.0C) or greater to the healthcare team as noted on the provided wallet card and/or magnet. YES Time Spent: 15 minutes REFERRAL (RECOMMENDATION): N/A Florence Momin RN documented in this encounterFlower [facility]04-03-2023 Miscellaneous Notes* Telephone Encounter - Terri Polanco LPN - 01/23/2023 8:44 AM EDT Pt. Aware not to start medication until next cycle begins on 02/01/23 Patient has been identified by name and date of : Yes Requested Prescriptions Pending Prescriptions Disp Refills lenalidomide (REVLIMID) 25 mg capsule [Pharmacy Med Name: REVLIMID 25MG CAP] 21 capsule 0 Sig: TAKE 1 CAPSULE BY MOUTH DAILY FOR 21 DAYS, THEN 7 DAYS OFF RX INSTRUCTIONS: Patient aware RX will be sent to pharmacy. No need to notify patient. Terri Polanco LPN documented in this encounterFlower Hospital03-30-2023 Miscellaneous Notes* Telephone Encounter - Isabel Murphy - 01/19/2023 9:53 AM EDT Scheduled. Isabel Murphy * Telephone Encounter - Isabel Murphy - 01/18/2023 4:34 PM EDT Begin sc Darzalex 02/01. CBC/CMP. CBC ON (PER BETSY) As scheduled otherwise. documented in this encounterFlower Hospital03-30-2023 Miscellaneous Notes* Telephone Encounter - Breonna Zhu - 01/19/2023 8:38 AM EDT Relayed message to spouse. She will call Dr. Saucedo right away for scheduling. * Telephone Encounter - Terri Polanco LPN - 01/19/2023 8:09 AM EDT Left message on identified mobile voicemail and home phone to contact our office as soon as they receive this message. Will try again later. Terri Polanco LPN * Telephone Encounter - Connie Mccain DO - 01/18/2023 8:14 PM EDT Today's lab work showed his blood sugars 500 mg/dL. He needs to see his PCP LYNSEY for management of blood sugars. Connie Mccain DO documented in this encounterFlower Hospital03-29-2023 Miscellaneous Notes* Telephone Encounter - LEONOR Byrnes - 01/18/2023 3:59 PM EDT SW met with pt, his and his son this date to discuss cost savings for Denilson. SW discussed the savings program through [employer]. Pt and in agreement with pursuing assistance. SW reviewed application with pt, obtained his signatures and copies of current insurance cards. SW also discussed grants and foundation assistance with pt and if needed. LEONOR Byrnes-S documented in this encounterFlower Hospital03-29-2023 Miscellaneous Notes* Telephone Encounter - Florence Momin RN - 01/18/2023 3:46 PM EDT Met with patient and introduced myself. Patient was given a folder with chemocare information, office contact information, and additional chemotherapy resource handouts. Patient aware this nurse willreview on scheduled appointment date. Florence Momin RN documented in this encounterFlower Hospital03-29-2023 History of Present illness Narrative* Connie Mccain, - 01/18/2023 2:02 PM EDT Oncologic problem(s): 1) IgG lambda multiple myeloma. HPI: The patient is a 72-year-old male with a past medical history significant for type 2 diabetes,high cholesterol, hypertension and right bundle branch block. Patient originally presented to the emergency room at [facility] on 04/19/2022 with new onset of confusion that day which had been worsening. Laboratory work-up significant for hypokalemia. CT of the brain was unremarkable. He was admitted. During hospitalization it was noted that hehad been having diarrhea for 6 to 8 weeks. Stool studies were positive for Campylobacter, blood andlactoferrin. C. difficile was negative. CT of the abdomen pelvis on 04/21/2022 noted abnormal pericholecystic edema without gallstones. Renal cysts and colonic diverticulosis were noted. He was found to have elevation of sed rate to 39, CRP 134. His albumin was 2.3. IgA low at 37. He was discharged on azithromycin, potassium and magnesium supplement. He was seen in the outpatient setting for follow-up visit on 07/11/2022. He continued to have one episode of explosive diarrhea daily. This had been going on for about 8 months. CBC on 07/11 showed a white count of 6400. Differential was normal. Hemoglobin 14.9 g/dL. Platelet count 275,000. Chemistries significant for creatinine of 1.29 g/dL. Previously 1.13 g/dL on 04/27/2022.Calcium was 9.3 mg/dL. Total bilirubin, AST, ALT and alkaline phosphatase were normal. LDH was 181.C-reactive protein was less than 2.09. Total protein was 8.8 g/dL. Total IgG was 2462 mg/dL. IgA decreased to 28 mg/dL. IgM normal at 32 mg/dL. On protein electrophoresis, patient was found to have 2M spikes both IgG lambda by immunofixation. For spike was quantitated at 1.2 g/dL and the second was quantitated at 0.6 g/dL. Cytoplasmic and perinuclear ANCA both negative. Atypical p-ANCA negative. Patient described diarrhea as loose, eran stools sometimes explosive typically one bowel movement per day however. He had not observed any blood. Had a colonoscopy [address] Arteaga. His appetite was normal. He had not lost weight. Denied reflux and nausea. He did get abdominal bloating associated with the diarrhea. He denied musculoskeletal pain. He denied symptoms of sensory neuropathy. He sees an team supervisor once a year for dilated exam. He has not been told he has retinopathy. Recent removal of early melanoma back. Blue nevus right ankle--required WLE--scheduled. PMR--about 15 years ago. Patient underwent colonoscopy on 09/21/2022. Preparation of the colon was fair. -One 6 mm polyp at the ileocecal valve, removed with a hot snare. Resected and retrieved. -One 5 mm polyp in the ascending colon, removed with a hot snare. Resected and retrieved. -Congested mucosa in the descending colon, at the splenic flexure, in the ascending colon and in the cecum. Biopsied. -Diverticulosis in the recto-sigmoid colon, in the sigmoid colon and in the descending colon. -Stool in the rectum, in the sigmoid colon, in the descending colon and at the hepatic flexure. Fluid aspiration performed. -The examined portion of the ileum was normal. Biopsied. Pathology: A. Ileocecal valve polyp, biopsy: -Consistent with fibrolipomatous polyp. -See comment. B. Small bowel, biopsy: -No pathologic change. C. Cecum, biopsy: -Mild melanosis coli. D. Colon, random biopsy: -Mild melanosis coli. E. Ascending colon polyp, biopsy: -Fragments of tubular adenoma. B, C, D & E - No congophilic material identified. Congo red stain with matched control is negative. ADDENDUM C & D. No congophilic material is noted in these biopsies on light and polarized microscopy. Congo Red stain with matched control was used in the evaluation of this case. He was diagnosed with pancreatic insufficiency and was to start pancreatic enzyme replacement. Current therapy: 1) RVd. Cycle #1 began 11/09/2022. 2) Zometa. Presents for ongoing oncologic management. Interim history: Patient had a venous duplex ultrasound on 12/16/2022 for right leg pain. That study demonstrated no evidence of DVT in the right leg. He developed chest pain and increasing shortness of breath. Went to the ED on 01/16/2023. PE protocol chest CT demonstrated multiple bilateral pulmonary emboli involving the distal portion of both theright and left main pulmonary arteries as well as branches of the upper and lower lobe pulmonary arteries, more prominent on the right side. Platelet count was 67,000. Patient was admitted and placedon unfractionated heparin with bolus. The next morning platelet count was 62,000. He was rotated toapixaban and discharged. Echocardiogram performed 01/17/2023 demonstrated normal LV size. There was moderate concentric LVH. Left ventricular systolic function was normal with an estimated ejection fraction at 60%. There was stage I diastolic dysfunction. The pulmonary artery systolic pressure was 58 mmHg. The global longitudinal strain was -11.5% (abnormal). The global longitudinal strain was moderately abnormal. (Previous echocardiogram 04/20/2022 demonstrated right ventricular systolic pressure estimated at 22 mmHg. Diastolic function was indeterminate. Right ventricular strain was not determined). His chest pain has improved. He is still short of breath with heavier exertion and sometimes walking from room to room he finds himself breathing heavier. He has been taking apixaban 10 mg twice daily. No bleeding issues. PMH, medications and allergies personally reviewed by me today. Any changes documented in appropriate section. ROS: Constitutional: Denies episodes of fever and night sweats. Not significantly fatigued. Neuro: Denies HAMILTON, vertigo, dizziness and imbalance. HEENT: No recent change in voice, vision or hearing. Resp: Denies cough, wheeze and hemoptysis. Denies shortness of breath at rest. Denies MACE. CVS: Denies exertional chest pain, PND, orthopnea and LE edema. GI: See HPI. : Denies dysuria or gross hematuria. Feels he voids to completion for the most part. 1 episode ofnocturia nightly. Endo: Denies hot flashes. Denies polyuria and polydipsia. Denies heat and cold intolerance. Musculoskeletal: See HPI. Derm: Denies rash. Denies jaundice and diffuse pruritis. Heme: Denies unusual bleeding and unexplained bruising. Psych: Normal mood. PHYSICAL EXAM: Vitals: Blood pressure 127/79, pulse 82, temperature 36.3 C (97.4 F), temperature source Temporal, weight 87.1 kg (192 lb), SpO2 99 %. Well-appearing and in no acute distress. EYES: Sclerae are anicteric bilaterally. LYMPHATIC: There is no palpable cervical or supraclavicular adenopathy. RESPIRATORY: Inspiratory breath sounds are of normal intensity in all rashid. No rales, wheezes or rhonchi. Expiratory phase is normal. CARDIOVASCULAR: Rhythm is regular. ABDOMEN: The abdomen is nondistended. Extremities: No swelling or edema. SKIN: No jaundice or rash. NEUROLOGIC: human resource intern II-XII are grossly intact. No focal motor weakness. DTRs are symmetric and normal. LABS: Component Latest Ref Rng & Units 01/03/2023 WBC 3.70 - 11.00 k/uL 7.33 RBC 4.20 - 6.00 m/uL 4.53 Hemoglobin 13.0 - 17.0 g/dL 13.0 Hematocrit 39.0 - 51.0 % 38.8 (L) MCV 80.0 - 100.0 fL 85.7 MCH 26.0 - 34.0 pg 28.7 MCHC 30.5 - 36.0 g/dL 33.5 RDW-CV 11.5 - 15.0 % 14.4 Platelet Count 150 - 400 k/uL 234 MPV 9.0 - 12.7 fL 10.8 Neut% % 85.3 Abs Neut (ANC) 1.45 - 7.50 k/uL 6.25 Lymph% % 6.3 Abs Lymph 1.00 - 4.00 k/uL 0.46 (L) Morton% % 7.8 Abs Morton <0.87 k/uL 0.57 Eosin% % 0.1 Abs Eosin <0.46 k/uL <0.03 Baso% % 0.1 Abs Baso <0.11 k/uL <0.03 Immature Gran % % 0.4 IMMATURE GRANS (ABS) <0.10 k/uL 0.03 NRBC /100 WBC 0.0 Absolute nRBC <0.01 k/uL <0.01 DTYPE Auto Protein, Total 6.3 - 8.0 g/dL 7.6 Albumin 3.9 - 4.9 g/dL 4.1 Calcium 8.5 - 10.2 mg/dL 9.1 Bilirubin, Total 0.2 - 1.3 mg/dL 0.4 Alkaline Phosphatase 38 - 113 U/L 76 AST 14 - 40 U/L 11 (L) ALT 10 - 54 U/L 9 (L) Glucose 74 - 99 mg/dL 296 (H) BUN 9 - 24 mg/dL 19 Creatinine 0.73 - 1.22 mg/dL 1.07 Sodium 136 - 144 mmol/L 137 Potassium 3.7 - 5.1 mmol/L 4.6 Chloride 97 - 105 mmol/L 107 (H) CO2 22 - 30 mmol/L 20 (L) Anion Gap 9 - 18 mmol/L 10 eGFR >=60 mL/min/1.73m 75 Component Latest Ref Rng & Units 08/08/2022 10/26/2022 11/16/2022 12/06/2022 12/21/2022 01/03/2023 Albumin 3.43 - 5.41 g/dL 3.88 4.33 3.99 3.71 3.91 3.96 Alpha 1 Globulin 0.18 - 0.43 g/dL 0.22 0.26 0.35 0.42 0.45 (H) 0.43 Alpha 2 Globulin 0.42 - 0.98 g/dL 0.80 0.65 0.72 0.79 0.97 0.85 Beta Globulin 0.61 - 1.17 g/dL 1.01 0.54 (L) 0.67 0.63 0.78 0.74 Gamma Globulin 0.53 - 1.51 g/dL 2.19 (H) 2.12 (H) 1.98 (H) 1.75 (H) 1.58 (H) 1.61 (H) Interpretation (Prot Electro) No definitive M protein is identified on protein electrophoresis. An M protein is identified on protein electrophoresis. (A) An M protein is identified on protein electrophoresis. (A) An M protein is identified on protein electrophoresis. (A) An M protein is identifiedon protein electrophoresis. (A) An M protein is identified on protein electrophoresis. (A) An M protein is identified on protein electrophoresis. (A) Interpretation Comment for Protein Electrophoresis See separate immunofixation report for characterization of monoclonal gammopathy. See separate immunofixation report for characterization of monoclonal gammopathy. See separate immunofixation report for characterization of monoclonal gammopathy. See separate immunofixation report for characterization of monoclonal gammopathy. See separate immunofixation report for characterization of monoclonal gammopathy. See separate immunofixation report forcharacterization of monoclonal gammopathy. M-Protein Location Gamma Fraction 1 Gamma Fraction 1 Gamma Fraction 1 Gamma Fraction 1 Gamma Fraction 1 Gamma Fraction 1 M-Protein Location 2 Gamma Fraction 2 Gamma Fraction 2 Gamma Fraction 2 Gamma Fraction 2 Gamma Fraction 2 Gamma Fraction 2 M-Protein Concentration <=0.00 g/dL 1.08 (H) 1.12 (H) 1.00 (H) 0.79 (H) 0.80 (H) 0.82 (H) SPE Staff Review Reviewed by Sophie Holbrook M.D., Ph.D Reviewed by Joel Hernandez MD, Ph.D ([id number]) Reviewed by Dr. Tom Patiño MD Reviewed by Eugenie Pickens MD Reviewed by Kyler Thrasher M.D. Reviewed by Joel Hernandez MD, Ph.D ([id number]) M-Protein Concentration 2 <=0.00 g/dL 0.59 (H) 0.62 (H) 0.59 (H) 0.51 (H) 0.49 (H) 0.51 (H) EKG from [facility] 04/20/2022 demonstrated normal sinus rhythm with left axis deviation and right bundle branch block. PATHOLOGY: Bone marrow biopsy 08/24/2022: A-C. Bone marrow, biopsy core, aspirate clot, touch imprint and aspirate smear: - Plasma cell neoplasm (lambda), representing approximately 20% of bone marrow cellularity. - Cellular (30% excluding plasma cells) bone marrow with trilineage hematopoiesis. - Adequate stainable iron. - See comment. D. Peripheral blood smear: - Unremarkable peripheral blood smear. - See comment. The patient is investigated for M protein characterized as IgG kappa. The abnormal findings in this case consist mainly of a population of monotypic lambda plasma cells representing approximately 20% of total bone marrow cellularity. In conclusion, the findings in this case are diagnostic of a plasma cell neoplasm. Further classification requires correlation with the clinical, laboratory and etiologic findings. Conventional cytogenetic analysis may provide additional relevant information. Other: Examination under polarized light of a [place] red stain performed on this biopsy identifies no evidence of amorphous material with abnormal discoloration (no amyloid). Immunohistochemical stains have been performed on sections of fixed, paraffin-embedded tissue with appropriately staining controls. The stains for CD138, kappa or lambda immunoglobulin light chains highlight the population ofmonotypic lambda plasma cells representing approximately 20% of total cellularity. IMAGING: Whole-body CT 08/11/2022: IMPRESSION: 1. No suspicious lytic lesions are identified. 2. Nonspecific fat stranding in the left lower quadrant mesentery with a focus of soft tissue whichcould represent an enlarged lymph node. The appearance is nonspecific, and the differential based on the appearance includes mesenteric panniculitis and lymphoma, among other etiologies. Management considerations can include PET/CT or short-term follow-up CT abdomen and pelvis in 6 weeks. 3. No acute abnormality in the chest. Scattered pulmonary nodules as large as 5 mm below size criteria for follow-up. 4. Other nonacute and nonaggressive findings as per the body of the report. CT A/P 08/26/2022: Nonspecific mesenteric stranding with probably a single mildly enlarged mesenteric lymph node. These findings are nonspecific. Well-defined upper abdominal mass likely extrahepatic in origin but contiguous to the liver. Considerations include both a complex cyst and a solid mass. Recommend correlation with MR of liver with IV contrast. Small splenic and intrahepatic densities probably benign. Right lower lobe pulmonary nodule. MRI Liver 09/01/2022: IMPRESSION: There is a 3.5 x 3.6 cm benign cyst along the posterior aspect of the left lobe of the liver. Additional 6 mm cyst within segment IVb of the liver. There is a 9 mm enhancing lesion superior margin of the spleen. The appearance of this is nonspecific but could represent hemangioma or other lesions. Follow-up MRI in 6-12 months is recommended to assess for stability. MRI spine and pelvis 10/06/2022: IMPRESSION: Cervical: Moderate degenerative disc disease at C3-C4 causing moderate canal stenosis and severe right neural foraminal stenosis. No pathologic enhancement. No marrow signal abnormality in the cervical spine. Thoracic: Normal MRI thoracic spine without and with contrast. No definite marrow signal abnormality. No abnormal extraosseous soft tissue. No pathologic enhancement. Lumbar: Mild degenerative disc disease at L4-L5. No marrow signal abnormality. No extraosseous soft tissue. No pathologic enhancement. Normal appearance of the conus medullaris and cauda equina. Cervical Anatomic Variant: None. Assume 7 cervical vertebrae with counting from the craniocervical junction. Anatomic Thoracic/Lumbar Variant: None. L4-5 is considered the level of the iliac crest and assume there are 5 lumbar-type vertebrae. IMPRESSION: 1. 2 SMALL ENHANCING MARROW LESIONS DESCRIBED CONCERNING FOR MYELOMA LESIONS GIVEN HISTORY. 2. BILATERAL MODERATE HIP OSTEOARTHRITIS. 3. PARALABRAL OR GANGLION CYST AT THE LEFT THIGH. Bone Marrow: 6 mm T2 hyperintense focus at the LEFT sacral ala with low intrinsic T1 signal and mild homogenous enhancement (29:9). 10 mm T2 hyperintense, T1 hypointense and enhancing focus in the right ischium (29:10). No fractures. ASSESSMENT/PLAN: (C90.00) Multiple myeloma not having achieved remission (HCC) (primary encounter diagnosis) Assessment: -The patient is a 72-year-old male has a past medical history significant for diabetes and chronic diarrhea that was characterized by one explosive watery stool daily (recently diagnosed with pancreatic insufficiency). Was hospitalized 03/2022 when diarrhea significantly worsened and he was diagnosed with and treated for Campylobacter infection. During that evaluation, was found to have two IgG lambda monoclonal antibodies. He did not have hypercalcemia or anemia but had elevated serum creatinine (which may be related to volume depletion when hospitalized for diarrhea and mental status change). 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 Low to intermediate risk disease (PCs 20%). -Imaging--no lytic lesions on whole body CT; Liver cyst and splenic nodule (6-12 month f/u MRI recommended). -Bone marrow negative for amyoid. -Colonic biopsies negative for amyloid. -Subsequent MRI of spine and pelvis revealed two T2 hyperintense foci in the pelvis, one in the left sacral rebeka and one in the right ischium. -The finding of the bone lesions on MRI fulfilled criteria for multiple myeloma. -FISH panel revealed (11;14) (q13;q32) (IGH/CCND1) translocation consistent with the presence of a plasma cell neoplasm associated with standard risk disease. -R-ISS stage I (serum beta microglobulin less than 3.5 mg/L and serum albumin greater than 3.5 g/dL; standard risk disease by FISH testing as outlined above and serum LDH less than upper limit of normal). -PS ECOG 1 (new PE). -He continues to tolerate VRd very well. Constipation remains the only appreciable side effect at this time. He was having chronic diarrhea previously that was attributed to pancreatic insufficiency. -Minimal response thus far (~30% reduction in MP #1). -Discussed adding a third agent and specifically recommended daratumumab. -I discussed the rationale, logistics, potential risks (including but not limited to allergic reactions and the small potential for as a consequence of severe toxicity/complications of therapy), benefits and alternatives, as well as the personnel involved in the administration of daratumumab.I answered his questions in detail and he verbalized understanding and agreed with the recommended therapy. Please see the electronic consent document for details of doses and schedule. -Answered all of his and his family's questions to their satisfaction. Plan: -Okay for day 15, cycle #3 bortezomib today. -Hold lenalidomide for remainder of the cycle due to platelet count of 80,000 today. -Begin daratumumab 02/01 (no chairs next week--was going to start 01/25). -Restart lenalidomide when he begins the next cycle of Velcade on 02/01 pending counts. -Continue monthly Zometa. -Monthly assessment of serum monoclonal protein. -Referral to [facility] for autologous stem cell transplant evaluation. -MRI abdomen in 6 months to follow-up on MRI liver findings from 09/01/2022. Supportive care: ID: Plan: -Continue Acyclovir for shingles prophylaxis up to 6 months after stopping bortezomib. Heme: -No anemia. -Reviewed CBC from today. Counts allow continued therapy. Plan: -Monitor counts. Skeletal: -Only lytic lesions observed over those in the pelvic bones on MRI initially. -Symptomatic from the left hip degenerative changes. Steroid injection yesterday helped. Plan: -Continue monthly Zometa tomorrow. -Advised scheduled dosing of Tylenol and wrote out instructions. -Follow-up with orthopedic surgery. (I26.99) Acute 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 acute cor pulmonale, unspecified pulmonary embolism type (HCC) Assessment: -B/L PE on ASA. -Evidence of pulmonary hypertension on echocardiogram. -Tolerating apixaban well. -Symptoms improving. Plan: -Continue apixaban. Neuro: -No symptoms of sensory neuropathy currently. Portions of this documentation were copied and pasted from previous office visit notes in order to provide a cohesive continuity of the history. The note has been reviewed and edited and updated as necessary. I spent a total of 45 minutes on the date of the service which included preparing to see the patient, [id number] patient care, completing clinical documentation, obtaining and/or reviewing separately obtained history, performing a medically appropriate examination, counseling and educating the pat ient/family/caregiver, ordering medications, tests, or procedures, communicating with other HCPs (not separately reported), and communicating results to the patient/family/caregiver. Connie Mccain DO [facility] Miscellaneous Notes* Telephone Encounter - Florence Momin RN - 01/17/2023 4:[address] Mccain aware of discharge. Florence Momin RN * Telephone Encounter - Florence Momin RN - 01/17/2023 2:41 PM EDT Call Disposition: Spoke to daughter. Patient is being discharged from [facility] to home today with instructions to take eliquis after discharge. Patient is being instructed to hold ASA and revlimid until patient speaks to Dr. Mccain. Patient was also instructed to hold potassium since his potassium was within normal limitsduring hospital stay. Patient will at out office tomorrow for labs/OV/treatment(?) as scheduled. * Telephone Encounter - Florence Momin RN - 01/17/2023 2:31 PM EDT DISCHARGE CALL BACK Today's date: January 17, 2023 Notified of Pt discharge by: [facility] records Patient discharged on 01/17/2023 from [facility] to Home Primary Cancer Diagnosis: Multiple Myeloma Admitting Diagnosis: Pulmonary Embolism Discharge Summary/SBAR reviewed: Yes Handoff Discussed with Transitional Primer Inspector: N/A Psychosocial Risk Factors: None If patient discharged to SNF/Rehab Facility, phone call completed to reinforce discharge instructions and follow up: N/A Instructions Per [facility] discharge instructions: Patient Instructions: Pulmonary Embolism Additional Instructions / Restrictions: DISCHARGE INSTRUCTIONS PLEASE READ *Please take this with you to your next doctors appointment* -You were found to have blood clots in your lungs and will need to take Eliquis upon discharge. Youwill take 10 mg twice daily for 7 days followed by 5 mg daily -It will be important that you follow-up with Dr. Mccain tomorrow as previously scheduled -Would recommend holding your morning dose of the lenalidomide (Revlimid) until discussing with himtomorrow -Would also recommend holding your aspirin until discussing with Dr. Mccain due to your platelet count and being started on Eliquis - Would recommend lab work (CBC) to check your platelet count in 2 to 4 days through your primary care physician's office or Dr. Mccain. Please call their office upon discharge to obtain order for labwork. -Your potassium has been within normal limits during your admission, would recommend holding your potassium supplementation. When you call to obtain lab work would also recommend obtaining BMP to check your potassium in 2 to 4 days -On an outpatient basis you will need a repeat ultrasound of your heart (echocardiogram) in 2 to 4 weeks through your primary care physician's office to monitor your heart function and assess for anyfurther strain on the heart -Please call your primary care provider's office upon discharge to schedule a hospital follow up within 1 week. -For any concerning signs or symptoms please call 911 or proceed to the nearest emergency department Call Disposition: Spoke to daughter. Patient is being discharged from [facility] to home today with instructions to take eliquis after discharge. Patient is being instructed to hold ASA and revlimid until patient speaks to Dr. Mccain. Patient was also instructed to hold potassium since his potassium was within normal limitsduring hospital stay. Patient will at out office tomorrow for labs/OV/treatment(?) as scheduled. Florence Momin RN * Telephone Encounter - Breonna Zhu - 01/17/2023 1:06 PM EDT Patient in [facility]. Daughter, Carmela requesting to speak with Florence [phone]. documented in this [facility]03-28-[address] Ko [facility] January 17, 2023 5:52pm Note Date/Time January 17, 2023 2:2 8pm [facility] Medical Records Department [address] [place] [address] Instructions for Home/Discharge Instructions 01/17/23 1427 MR#: [id number] Acct: [id number] Name: OSEAS JOSEPH Rep #:[id number] : 1950 72 From: Kezia Ko MD PCP: Dr. Connie Lugo MD Status:ADM I NO Discharge Instructions Diet Discharge Diet: No restrictions Activity Discharge Activity: - (Advance activity as tolerated) Follow Up Care Test Results: Test results from this visit will be discussed in further detail at your follow- up appointment, if applicable. Discharge Plan Admission Admit Date/Time: 01/16/23 14:25 Primary Reason for Your Visit: Shortness of breath Attending Provider: Kezia Ko Primary Care Provider: Connie Lugo Instructions Patient Instructions: Pulmonary Embolism Additional Instructions / Restrictions: DISCHARGE INSTRUCTIONS PLEASE READ *Please take this with you to your next doctors appointment* -You were found to have blood clots in your lungs and will need to take Eliquis upon discharge. You will take 10 mg twice daily for 7 days followed by 5 mg daily -It will be important that you follow-up with Dr. Mccain tomorrow as previously scheduled -Would recommend holding your morning dose of the lenalidomide (Revlimid) until discussing with him tomorrow -Would also recommend holding your aspirin until discussing with Dr. Mccain due to your platelet count and being started on Eliquis - Would recommend lab work (CBC) to check your platelet count in 2 to 4 days through your primary care physician's office or Dr. Mccain. Please call their office upon discharge to obtain order for lab work. -Your potassium has been within normal limits during your admission, would recommend holding your potassium supplementation. When you call to obtain lab work would also recommend obtaining BMP to check your potassium in 2 to 4 days -On an outpatient basis you will need a repeat ultrasound of your heart (echocardiogram) in 2 to 4 weeks through your primary care physician's office tomonitor your heart function and assess for any further strain on the heart -Please call your primary care provider's office upon discharge to schedule a hospital follow up within 1 week. -For any concerning signs or symptoms please call 911 or proceed to the nearest emergency department Discharge Orders/Prescriptions Prescriptions: New Eliquis DVT-PE Treat 30D Start 5 mg (74 tabs) tablets,dose pack See Rx Instructions .ROUTE .COMPLEX Qty: 74 0RF Rx Instructions: Take two tabs twice daily for 7 days followed by one tab twice daily Continued atorvastatin 10 mg tablet 10 mg PO DAILY amlodipine 5 mg tablet 5 mg PO DAILY Linzess 145 mcg capsule 145 mcg PO DAILY Qty: 30 2RF Rx Instructions: take 30 minutes prior to first intake of the day. losartan 50 mg tablet 50 mg PO DAILY glimepiride 2 mg tablet 4 mg PO DAILY Hold Instructions: Hold if glucose less than 130 mg/dl. Resume from 04/22/2022 clonazepam 0.5 mg tablet 0.5 mg PO QHS acyclovir 400 mg tablet 400 mg PO BID glimepiride 2 mg tablet 2 mg PO DAILY dexamethasone 4 mg tablet 40 mg PO WE Label Comments: TAKE 10 TABLETS BY MOUTH ONCE A WEEK ON DAYS 1,8,15,AND 22 OF EACH CYCLE Velade See Rx Instructions .ROUTE .COMPLEX Rx Instructions: GETS IV WEEKLY AT DR MCCAIN'S OFFICE Held aspirin 81 mg Tablet,Delayed Release (Dr/Ec) 81 mg PO DAILY Hold Instructions: Resume on 01/25/23. lenalidomide [Revlimid] 25 mg capsule 25 mg PO DAILY Hold Instructions: Resume on 01/18/23. Discontinued potassium chloride 20 mEq tablet,ER particles/crystals 20 meq PO DAILY Label Comments: TAKE 1 TABLET BY MOUTH ONCE DAILY Referrals / Follow Up: Connie Mccain DO [Med Staff - Active Staff] - In 1 Day Connie Lugo MD [Primary Care Provider] - Within 1 Week Disposition Disposition (needs filled in before D/C Order can be placed): Home, Self Care 01/17/231751<Electronically signed by Kezia Ko MD>Kezia Ko MD CC: Dr. Connie Lugo MD ~ Signed [facility] Work Phone: [phone]) 186-564503-27-[address] Kerr [facility] January 16, 2023 5:44pm Note Date/Time January 16, 2023 10: 33am [facility] Medical Records Department [address] [place] [address] Emergency Department Summary 01/16/23 MR#: [id number] Acct: [id number] Name: OSEAS JOSEPH Rep #:[id number] : 1950 72 From: Nico Kerr MD PCP: Dr. Connie Lugo MD Status:ADM I NO Location: [place] [address] HPI History of Present Illness Chief Complaint: Shortness of Breath Informant: patient and spouse/S.O. Onset/Context/Timing Onset: Weeks Context: gradual Timing: Continuous Quality: Positive for Dyspnea on exertion Current Severity: Mild Maximum Severity: Mild Worsened by: Nothing Relieved by: Nothing Associated Symptoms Negative for cough Chest Pain: Positive for Continuous Narrative Narrative: 72-year-old male history of multiple myeloma, diabetes, hypertension. Currentlybeing treated for multiple myeloma with a bone strengthening medication. He has had several times before. His last treatment was about 2 weeks ago and since that time he has had just chest tightness. Is basically constant. Some mild shortness of breath. No hemoptysis. No pleuritic pain. No leg pain or swelling. No recent travel or surgery. No recent mobilization or hospitalization. He has never had a DVT or PE. His oncologist office sent him in for further evaluation. He denies any nausea vomiting diarrhea. He denies any fever or chills. He denies any melena. PE Risk Factors: Positive for Cancer; Negative for OCP + Smoking + > 35, Prior DVT or PE, Recent immobilization, Recent surgery or Recent travel Prior similar symptoms: No Recent Illness/Hospitalization: No PFSH PFSH Medical History Diabetes mellitus High cholesterol History of echocardiogram History of skin cancer HTN (hypertension) Hypokalemia Multiple myeloma Non-smoker Open wound RBBB Restless legs Wears glasses Home Medications amlodipine 5 mg tablet 5 mg PO DAILY blood pressure 02/09/21 [History Last Taken 09/20/22] atorvastatin 10 mg tablet 10 mg PO DAILY cholesterol 02/09/21 [History Last Taken 09/20/22] glimepiride 2 mg tablet 2 mg PO TID DM 04/19/22 [History Last Taken 09/20/22] losartan 50 mg tablet 50 mg PO DAILY BP 04/19/22 [History Last Taken 09/20/22] clonazepam 0.5 mg tablet 0.5 mg PO QHS 09/16/22 [History Last Taken 09/20/22] psyllium husk 0.4 gram capsule (Metamucil) 0.4 g PO DAILY 09/16/22 [History Last Taken 09/20/22] amumkr-akmvsfhb-yfcznhs 40,000-126,000-168,000 unit capsule, delay rel (Zenpep) See Rx Instructions PO .COMPLEX #320 caps 09/26/22 [Rx Last Taken Unknown] linaclotide 145 mcg capsule (Linzess) 145 mcg PO DAILY #30 caps 12/05/22 [Rx Last Taken Unknown] acyclovir 400 mg tablet 400 mg PO BID 01/16/23 [History Last Taken Unknown] aspirin 81 mg tablet 81 mg PO DAILY 01/16/23 [History Last Taken Unknown] Allergy/AdvReac Type Severity Reaction Status Date / Time No Known Allergies Allergy Verified 01/16/23 10:02 Family History Other Diabetes Hypertension Surgical History History of wisdom tooth extraction Hx of hernia repair (~1965) Social History Smoking Status: Never smoker alcohol intake: current alcohol intake frequency: a few times a week Alcohol type: beer substance use type: does not use ROS ROS ED ROS Narrative Chest tightness. Shortness of breath. Review of Systems ROS Unobtainable: Denies due to encephalopathy Constitutional Constitutional ED: Denies chills or fever(s) Eyes Eyes: Denies blurry vision ENT ENT ED: Denies ear pain, rhinorrhea or sore throat Cardiovascular Cardiovascular: Reports chest pain; Denies palpitations or racing heartbeat Respiratory/Chest Respiratory/Chest: Reports dyspnea; Denies cough Gastrointestinal Gastrointestinal: Denies abdominal pain, constipation, diarrhea, melena, nausea or vomiting Genitourinary Genitourinary ED: Denies dysuria or hematuria Musculoskeletal Musculoskeletal: Denies arthralgias Integumentary Denies abscess Neurologic Neurologic: Denies headache(s) Psychiatric Psychiatric: Denies anxiety or depression Endocrine Endocrinology: Denies cold intolerance Allergic/Immunologic Allergic/Immunologic ED: Denies mouth swelling or tongue swelling EXAM Physical Exam Narrative Exam Narrative: Well-appearing 72-year-old male. Vital signs stable afebrile. Pulse ox 96% on room air no signs hypoxia. Heart rate 88. at bedside. H EENT exam unremarkable. Neck nontender no JVD. No lymphadenopathy. Lungs clear to auscultation bilaterally. Heart regular rhythm rate about 85 no murmur. Chest wall nontender. Abdomen soft nontender. Moving all 4 extremities. Calves are nontender without edema or cords. Neurologically is awake alert with no focal motor deficits. Const Vital Signs: 01/16/23 09:59 01/16/23 11:40 01/16/23 11:40 Temperature 97.8 F Temperature Source Temporal Pulse Rate 88 76 Respiratory Rate 14 21 H Respiratory Effort Respiratory Depth Respiratory Pattern Blood Pressure 127/84 H 152/73 H Blood Pressure Mean 98 99 Pulse Ox 96 95 Oxygen Delivery Method Room Air Room Air Room Air Oxygen Flow Rate (L/min) 95 01/16/23 11:40 Temperature Temperature Source Pulse Rate Respiratory Rate Respiratory Effort Short of Breath Respiratory Depth Normal Respiratory Pattern Normal Blood Pressure Blood Pressure Mean Pulse Ox Oxygen Delivery Method Room Air Oxygen Flow Rate (L/min) Positive well nourished and well developed; Negative for obese, cachectic, contractures or unkempt General Appearance ED: well developed and NAD; Negative for unkempt, cachectic, contractures or pallor Nutritional Appearance: Negative for cachectic or obese HEENT Reports moist mucous membranes; Denies dry mucous membranes atraumatic and trauma; Negative for tenderness Mouth ED: No dry mucous membranes Mouth: No dry mucous membranes Eyes EOMs intact bilaterally General Eye ED: Negative for pale conjunctiva or scleral icterus Neck no lymphadenopathy, supple, no meningeal signs and no JVD General: Negative for tenderness Lymph Lymphatic: Negative for other Resp normal respiratory effort and clear to auscultation bilaterally Effort and Inspection: Negative for pain with movement Auscultation: Negative for rales, rhonchi or wheezes Cardio regular rate, regular rhythm, S1 normal heart sound, S2 normal heart sound and no murmurs Rate: Negative for bradycardia or tachycardic Rhythm: Negative for abnormal rhythm GI non-tender, non-distended and no masses Inspection: Negative for other Auscultation: normoactive bowel sounds Palpation: soft; Negative for tender or guarding Back/Spine no CVA tenderness and normal to inspection General Back: Negative for CVA tenderness Extremity normal to inspection General Extremety ED: Negative for edema or tenderness General Extremity: Negative for edema Neuro oriented x3 and CN's II-XII intact bilaterally Sensorium / Orientation: alert, oriented to person, oriented to place and oriented to time; Negative for orientation impaired, confused, lethargic or stuporous Speech: speech normal Motor Exam: strength 5/5 throughout Psych mental status grossly normal Appearance: Negative for unkempt Attitude: No agitated Mood & Affect: Negative for depressed Thought Process: normal thought process Skin no wounds and skin turgor normal General Skin Exam: Negative for jaundice or pallor Lesions: no lesions Rashes: no rashes Trauma: Negative for abrasion MDM MDM MDM Narrative Medical decision making narrative: 72-year-old male history multiple myeloma currently being treated for it. Has had chest tightness bilaterally for about 2 weeks. Clinically I doubt this is cardiac. He will need to go undergo cardiac work-up due to chest pain and shortness of breath. Also have a low clinical suspicion for this being a PE. Jorje do a D-dimer since he is major risk factors having multiple myeloma. He has had no recent travel or surgery no leg pain or swelling. The pain is not pleuritic. He has had no hemoptysis. Lab Data Attestation: I reviewed the patient's lab results. Lab results narrative: CBC shows a white count of 7.9. H&H 13.8 and 41. Platelets are low at 67. D-dimer is elevated greater than 20. Electrolytes show a gap of 4 BUN 19 creatinine 1.29. Glucose 245. Troponin 63. CAT scan shows extensive pulmonary emboli in both the right and left lung. I discussed this with his oncologist Dr. Connie Mccain given his clots and his decreasing platelet count of 67,000 previously was 98,000 and its been higher than that before he would like him admitted I will speak to the hospitalist about admitting the patient. Labs: Laboratory Results - last 24 hr 01/16/23 01/16/23 01/16/23 10:40 10:40 10:40 WBC 7.9 RBC 4.74 Hgb 13.8 Hct 41.4 MCV 87.3 MCH 29.1 MCHC 33.3 RDW Std Deviation 47.7 H RDW Coeff of John 15.2 H Plt Count 67 L MPV 12.5 H Immature Gran % (Auto) 1.100 H Neut % (Auto) 70.4 H Lymph % (Auto) 15.2 L Morton % (Auto) 9.5 Eos % (Auto) 3.3 Baso % (Auto) 0.5 Absolute Neuts (auto) 5.5 Absolute Lymphs (auto) 1.20 Nucleated RBC % 0 Differential Comment SCANNED Platelet Estimate MKD DEC D-Dimer Quant (PE/DVT) > 20.00 H* Sodium 136 Potassium 4.2 Chloride 109 H Carbon Dioxide 23.0 Anion Gap 4 L BUN 19 H Creatinine 1.29 Estim Creat Clear Calc 58.48 Est GFR (MDRD) Af Amer 71 Est GFR (MDRD) Non-Af 58 L BUN/Creatinine Ratio 14.7 Glucose 245 H Calcium 8.6 Troponin I High Sens 63 Radiography Chest X-Ray - ED: 1 View, Read by ED Physician, Read by Radiologist, Normal, Heart, Lungs, Mediastinum, Bony Structures, No Acute Disease and Chronic Changes Diagnostic Testing: Clinical Impression(s) from Imaging Studies Chest X-Ray 01/16/23 10:28 IMPRESSION: No acute abnormality is seen. Electronically Signed: Glen Mg MD at 11:31 EDT , Chest CTA 01/16/23 12:20 IMPRESSION: Extensive home embolism as described worse in the right hemithorax. The pulmonary embolism extends into the distal portions of both the right and left main pulmonary arteries. 1.9 cm cyst in the lateral aspect of the left kidney. N.B. : The above Results were Read Back by Glen Mg MD to Oseas Kerr MD, and understanding confirmed on 01/16/2023 13:21:07 (ET). Electronically Signed: Glen Mg MD at 13:22 EDT , ADDENDUM: 01/16/23 1329 IMPRESSION: Extensive home embolism as described worse in the right hemithorax. The pulmonary embolism extends into the distal portions of both the right and left main pulmonary arteries. 1.9 cm cyst in the lateral aspect of the left kidney. N.B. : The above Results were Read Back by Glen Mg MD to Oseas Kerr MD, and understanding confirmed on 01/16/2023 13:21:07 (ET). Electronically Signed: Glen Mg MD at 13:22 EDT , Chest x-ray, portable, single view shows no acute abnormality. Normal cardiac silhouette mediastinum. Rhythm Strip Rhythm Strip: Sinus Rhythm Rate: 82 EKG Initial EKG: Attestation: I personally reviewed and interpreted this EKG as follows: Interpretation: Sinus Rhythm and No Acute Injury Pattern Comments: Sinus rhythm rate 82. Right bundle branch block. No signs of NV. Discharge Plan Triage Chief Complaint: Shortness of Breath ED Provider: Nico Kerr Dx/Rx/DC Orders Clinical Impression: Chest pain, Thrombocytopenia, Hx of multiple myeloma, Bilateral pulmonary embolism Prescriptions: No Action atorvastatin 10 mg tablet 10 mg PO DAILY amlodipine 5 mg tablet 5 mg PO DAILY Linzess 145 mcg capsule 145 mcg PO DAILY Qty: 30 2RF Rx Instructions: take 30 minutes prior to first intake of the day. losartan 50 mg tablet 50 mg PO DAILY glimepiride 2 mg tablet 2 mg PO TID Hold Instructions: Hold if glucose less than 130 mg/dl. Resume from 04/22/2022 clonazepam 0.5 mg tablet 0.5 mg PO QHS psyllium husk [Metamucil] 0.4 gram Capsule 0.4 g PO DAILY acyclovir 400 mg tablet 400 mg PO BID aspirin 81 mg Tablet 81 mg PO DAILY Zenpep 40,000-126,000- 168,000 unit capsule,delayed release(DR/EC) See Rx Instructions PO .COMPLEX Qty: 320 11RF Rx Instructions: take 1-2 with snacks and 2-3 with meals. Take the higher dose with higher fat content meals. Primary Care Provider: Connie Lugo Referrals: Connie Lugo MD [Primary Care Provider] - Disposition Disposition: Acute Care Hospital [facility] What to do if you have Problems For any increased pain, shortness of breath, bleeding, nausea or vomiting, chestpain, or any unexpected problems, contact your Primary Care Provider. Call [facility] ([phone]) or report to the closest Emergency Room. Call 911 if necessary. 01/16/239 <Electronically signed by Nico Kerr MD> Cosigner Signature (if applicable): CC: Dr. Connie Lugo MD ~ Signed [facility] Work Phone: 1(282) 531-618103-27-2023 History and physical note Author Dr. Ko [facility] January 16, 2023 2:46pm Note Date/Time January 16, 2023 2:4 6pm [facility] Medical Records Department [address] [place] [address] [place] [address] H&P Exam - Hospitalist 01/16/23 1425 MR#: [id number] Acct: [id number] Name: OSEAS JOSEPH Rep #:[id number] : 1950 72 From: Kezia Ko MD PCP: Dr. Connie Lugo MD Status:ADM I N Location: [place] [address] HPI - General General Date of Admission: 01/16/23 Date of Service: 01/16/23 Chief Complaint: Chest tightness HPI Narrative OSEAS JOSEPH, is a 72 M with a history of multiple myeloma, type 2 diabetesmellitus and hypertension presented to [facility] 01/16/2023 at the urging of his hematology oncology Dr. Mccain due to chest tightness and shortness of breath for 2 weeks. In the ED blood pressure 123/75, heart rate 71, 96% on room air. Platelet count 67 but CBC otherwise unremarkable. D-dimer greater than 20 and extensive pulmonary embolism was found worse in the right hemithorax extending to the distal portion of both the right and left main pulmonary arteries. ED physician spoke with his oncologist who reported with his platelet count he would prefer admission observation on anticoagulation to verify no drop in platelets or bleeding. Hospitalist consulted for admission. Patient seen at bedside with . Reports that over the past month with his infusions for his multiple myeloma he has been getting some chest tightness and shortness of breath on exertion however 2 weeks ago after his treatment it got worse and has worsened to the point where he is short of breath and has chest tightness even walking to his kitchen and back. Denies cough, denies swelling in legs. Reports that they had been swollen after his first infusion 3 weeks ago and he had a venous duplex which was negative. Has slight nasal congestion but feels it is due to the weather. Denied any other complaints. [facility] Medical History Diabetes mellitus High cholesterol History of echocardiogram History of skin cancer HTN (hypertension) Hypokalemia Multiple myeloma Non-smoker Open wound RBBB Restless legs Wears glasses Home Medications amlodipine 5 mg tablet 5 mg PO DAILY blood pressure 02/09/21 [History Last Taken 01/16/23] atorvastatin 10 mg tablet 10 mg PO DAILY cholesterol 02/09/21 [History Last Taken 01/16/23] glimepiride 2 mg tablet 4 mg PO DAILY DM 04/19/22 [History Last Taken 01/16/23] losartan 50 mg tablet 50 mg PO DAILY BP 04/19/22 [History Last Taken 01/16/23] clonazepam 0.5 mg tablet 0.5 mg PO QHS 09/16/22 [History Last Taken 01/15/23] linaclotide 145 mcg capsule (Linzess) 145 mcg PO DAILY #30 caps 12/05/22 [Rx Last Taken 01/16/23] Velade See Rx Instructions .Route .COMPLEX CHEMO 01/16/23 [History Last Taken 01/11/23] acyclovir 400 mg tablet 400 mg PO BID 01/16/23 [History Last Taken 01/16/23 07:00] aspirin 81 mg tablet,delayed release 81 mg PO DAILY 01/16/23 [History Last Taken 01/16/23] dexamethasone 4 mg tablet 40 mg PO WE CHEMO 01/16/23 [History Last Taken 01/11/23] glimepiride 2 mg tablet 2 mg PO DAILY DM 01/16/23 [History Last Taken 01/15/23] lenalidomide 25 mg capsule (Revlimid) 25 mg PO DAILY CHEMO 01/16/23 [History Last Taken 01/16/23] potassium chloride 20 mEq tablet,extended release(part/cryst) 20 meq PO DAILY POTASSIUM 01/16/23 [History Last Taken 01/15/23] Allergy/AdvReac Type Severity Reaction Status Date / Time No Known Allergies Allergy Verified 01/16/23 10:02 Family History Other Diabetes Hypertension Surgical History History of wisdom tooth extraction Hx of hernia repair (~1965) Social History Smoking Status: Never smoker alcohol intake: current alcohol intake frequency: a few times a week Alcohol type: beer substance use type: does not use ROS ROS Narrative General: Denies fever/chills HENT: Denies headache, slight nasal congestion, denies sore throat EYES: Denies changes in vision Resp: Denies cough, shortness of breath on exertion Cardiac: Chest tightness GI: Denies abdominal pain, denies changes in bowel, denies nausea/vomiting : Denies changes in urination Extremity: Denies swelling MSK: Denies weakness Neuro: Denies any numbness/tingling Heme: Denies any bleeding or bruising Skin: Denies rashes Psychiatric: No complaints voiced Vital Signs Vital Signs Vital Signs: 01/16/23 09:59 01/16/23 11:40 01/16/23 11:40 Temperature 97.8 F Temperature Source Temporal Pulse Rate 88 76 Respiratory Rate 14 21 H Respiratory Effort Respiratory Depth Respiratory Pattern Blood Pressure 127/84 H 152/73 H Blood Pressure Mean 98 99 Pulse Ox 96 95 Oxygen Delivery Method Room Air Room Air Room Air Oxygen Flow Rate (L/min) 95 01/16/23 11:40 01/16/23 14:03 Temperature 97.9 F Temperature Source Temporal Pulse Rate 70 Respiratory Rate 18 Respiratory Effort Short of Breath Respiratory Depth Normal Respiratory Pattern Normal Blood Pressure 126/77 H Blood Pressure Mean 93 Pulse Ox 98 Oxygen Delivery Method Room Air Room Air Oxygen Flow Rate (L/min) Weight Weight: 89.358 kg Body Mass Index (BMI) 26.7 Physical Exam Narrative General: Alert, oriented, no apparent distress HEENT: Atraumatic, normocephalic Eyes: Anicteric, normal conjunctiva, extraocular movements grossly intact Neck: Supple Respiratory: Slightly coarse very right base compared to left, normal respiratory effort at rest, slight increased work of breathing when moving around Cardiovascular: Regular rate and rhythm GI: Soft, nontender, nondistended Extremities: No edema Musculoskeletal: Moving all extremities Neuro: No overt focal neurological deficits Skin: No rashes appreciated Psych: Cooperative Results Lab / Micro Data Result Diagrams: 01/16/23 10:40 01/16/23 10:40 Labs: Laboratory Results - last 24 hr 01/16/23 10:40: WBC 7.9, RBC 4.74, Hgb 13.8, Hct 41.4, MCV 87.3, MCH 29.1, MCHC 33.3, RDW Std Deviation 47.7 H, RDW Coeff of John 15.2 H, Plt Count 67 L, MPV 12.5 H, Immature Gran % (Auto) 1.100 H, Neut % (Auto) 70.4 H, Lymph % (Auto) 15.2L, Morton % (Auto) 9.5, Eos % (Auto) 3.3, Baso % (Auto) 0.5, Absolute Neuts (auto)5.5, Absolute Lymphs (auto) 1.20, Nucleated RBC % 0, Differential Comment SCANNED, Platelet Estimate MKD DEC 01/16/23 10:40: D-Dimer Quant (PE/DVT) > 20.00 H* 01/16/23 10:40: Sodium 136, Potassium 4.2, Chloride 109 H, Carbon Dioxide 23.0, Anion Gap 4 L, BUN 19 H, Creatinine 1.29, Estim Creat Clear Calc 58.48, Est GFR (MDRD) Af Amer 71, Est GFR (MDRD) Non-Af 58 L, BUN/Creatinine Ratio 14.7, Glucose 245 H, Calcium 8.6, Troponin I High Sens 63 Rhythm Strip Rhythm Strip: Sinus Rhythm Rate: 82 Radiology Impression Chest X-Ray 01/16/23 10:28 IMPRESSION: No acute abnormality is seen. Electronically Signed: Glen Mg MD at 11:31 EDT , Chest CTA 01/16/23 12:20 IMPRESSION: Extensive home embolism as described worse in the right hemithorax. The pulmonary embolism extends into the distal portions of both the right and left main pulmonary arteries. 1.9 cm cyst in the lateral aspect of the left kidney. N.B. : The above Results were Read Back by Glen Mg MD to Oseas Kerr MD, and understanding confirmed on 01/16/2023 13:21:07 (ET). Electronically Signed: Glen Mg MD at 13:22 EDT , ADDENDUM: 01/16/23 1329 IMPRESSION: Extensive home embolism as described worse in the right hemithorax. The pulmonary embolism extends into the distal portions of both the right and left main pulmonary arteries. 1.9 cm cyst in the lateral aspect of the left kidney. N.B. : The above Results were Read Back by Glen Mg MD to Oseas Kerr MD, and understanding confirmed on 01/16/2023 13:21:07 (ET). Electronically Signed: Glen Mg MD at 13:22 EDT , Assessment & Plan Assessment/Plan (1) Bilateral pulmonary embolism: PLAN: Plan #Bilateral pulmonary embolism/thrombocytopenia -EKG on arrival showed left axis deviation with a right bundle branch block and normal sinus rhythm but was similar to EKG in March 2022 -Discussed with Dr. Mccain, thrombocytopenia presumed to be due to his treatmentshe is getting for his multiple myeloma -No recent prolonged immobility, no smoking -No symptoms at rest but has significant symptoms upon movement -Discussed with Dr. Mccain, will start heparin drip with bolus and evaluate CBC in the a.m. -If platelets above 55 and no bleeding can DC on Eliquis -We will monitor in PCU and also obtain echocardiogram to assess for any right heart strain -Obtain COVID -Hypercoagulability work-up ordered as well #Type 2 diabetes mellitus -Hold glimepiride -Glucose checks and sliding scale insulin #Multiple myeloma -Follows with Dr. Mccain on an outpatient basis #CKD stage III unclear subtype -Slightly decreased GFR, no KYE at present, will monitor and recheck in the a.m. #DVT ppx: Full dose heparin Kezia Ko MD Time spent in the patient's overall evaluation,decision-making process, review of diagnostic data, adjustment of management, discussion with other providers, nursing nursing and ancillary staff involved in patient's care documentation, 60minutes Charges/Coding Visit Charges Inpatient E&M: 00720 Init Hosp L2 01/16/23 1446 <Electronically signed by Kezia Ko MD> Cosigner Signature (if applicable): CC: Dr. Kezia Ko MD; Dr. Connie Lugo MD~ Signed [facility] Work Phone: 1(505) 414-589803-27-2023 Miscellaneous Notes* Telephone Encounter - Florence Momin RN - 01/16/2023 9:02 AM EDT Spoke to Dr. Mccain who advised an ED visit. Patients was informed of this and stated understanding. will take patient to [facility] ED. This nurse will fax over recent records to [facility] ED and this note to notify them that patient will be coming to their facility for evaluation. Florence Momin RN * Telephone Encounter - Florence Momin RN - 01/16/2023 8:38 AM EDT TOXICITY CHECK SYMPTOM ASSESSMENT Headache: No Visual Changes: No Dizziness: No Appetite: no changes in appetite, appetite fair Nausea: No Vomiting: No Episodes of palpitations/chest discomfort/pressure/pain Yes, tightness across his chest. Shortness of breath: Yes, increased SOB with exertion; started 2-3 days after last Zometa treatmenton 01/04/23. Cough: No Diarrhea: no Constipation: no Bladder/Urinary Changes: Increased output d/t increased fluid intake Pain: unable to assess Fever: No Chills: No Numbness/weakness: Yes fatigue Activity Level (0-100%): decreased rests frequently called stating patient has increased SOB with exertion that started 2-3 days after Zometa treatment on 01/04/23. also reports that patient has tightness across his chest. denies fever, chills, new/worsening cough, cold symptoms, dizziness with standing, difficulty or pain with breathing. denies patient being SOB at rest. stated patient tried hydrating really well over the weekend but it didn't make a difference in symptoms. also reported that patients glucose was 422 on 01/11 [facility]. stated patient has not been checking glucose at home. was instructed to start checking at home, follow-up with PCP regarding high glucose levels. Patient is in [place] this morning. aware this nurse will follow-up with Dr. Mccain regarding symptoms and will call back with further instructions. Florence Momin RN [facility] Miscellaneous Notes* Telephone Encounter - Breonna Love Pss - 01/13/2023 8:25 AM EDT Please disregard. See TE from yesterday stating to schedule on 01/18. Will update schedule and inform spouse. * Telephone Encounter - Breonna Ivan Pss - 01/13/2023 8:21 AM EDT Spouse called requesting information about appt today. She doesn't understand what it is for and states she was unaware of it. Please advise. [facility]23 Miscellaneous Notes* Telephone Encounter - Isabel Murphy - 01/12/2023 4:45 PM EDT Scheduled as directed. Isabel Murphy * Telephone Encounter - Betsy Henriquez LPN - 01/12/2023 4:37 PM EDT PSS- please place patient on Dr. Mccain's schedule on 01/18/2023 @ 2:40. I am aware that you will have to force appointment in system. Appointment note should read consent chairside. No need to notify patient as he will be here for treatment that day. Betsy Henriquez LPN documented [facility]03-17-2023 History of Present illness Narrative* Shea Barnett RN - 01/06/2023 8:52 AM EDT [id number] 2nd check for eligibility by RN completed. YES All inclusion / exclusion criteria have been reviewed and confirmed according to protocol. 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 YES Current informed consent signed. YES Shea Barnett RN * Temo Gill RN - 01/03/2023 12:51 PM EDT IRB# [id number] [facility]# [id number] Title: Phase III Study of Daratumumab/rHuPH20 (NSC- [id number]) + Lenalidomide or Lenalidomide as Post-Autologous Stem Cell Transplant Maintenance Therapy in Patients with Multiple Myeloma (MM) Using Minimal Residual Disease to Direct Therapy Duration (DRAMMATIC Study) Consent Signed: Observation Only: January 03, 2023 Subject number: N/A until enrolled Screening date: January 03, 2023 Informed consent signed on: January 03, 2023; prior to any study related procedures being performed that are not SOC Accompanied by: Patient, , and daughter Patient seen today for Screening Visit. Patient states he has read the consent. Treatment plan, including all testing, potential risks/benefits, side effects and management, treatment alternatives, and follow-up were explained. H&P: Connie Mccain D.O. Was physical and neuro exam completed by a fellow?: No Labs and AEs reviewed by: Connie Mccain D.O. ECO- Fully active, documented 01/03/2023 by Connie Mccain D.O. Clinical trial labs completed per protocol: None at this time Concomitant medications reviewed per protocol: Yes Changes per patient: N/A at this time Quality of life questionnaire completed per protocol: Not Required at this time in study VS completed per protocol: Yes EKG completed per protocol: Not Required Lenolidomide Education and Counseling: Patient recently given education packet with follow-up with Primer Inspector once randomized. Vitals: 01/03/2023 Weight 90.3 kg (199 lb) BSA 0 BMI 0 Temp 37.1 C (98.8 F) Pulse 81 > rechecked 78 Resp 18 BP 152/88 > rechecked 140/86 M Protein Date Baseline 10/26/2022 1.12 Dakota/Suazo Date Dakota Suazo Baseline 10/26/2022 11.7 43.5 R-ISS Stage 1 - 10/26/2022 - current Induction Start: 11/09/2022 Disease Related Criteria Screening Confirmed diagnosis of symptomatic multiple myeloma that required systemic induction therapy prior to autologous stem cell transplantation (ASCT): Yes 08/24/2022 Path report (only gives lab values to confirm at time was smoldering - but was very close to MM even then) Patient met criteria as of 10/26/2022 Multiple Myeloma Connie Mccain D.O. note. Confirmed patients has measurable M protein in the serum (defined as ? 0.5g/dL) or urine (defined as ? 200 mg/24h): Serum M 1.12 g/dL at diagnosis 10/26/2022 Confirmed patients does not have smoldering myeloma: Yes (Patient denies and 10/26/2022 in chart review - [facility] note states MM versus smoldering now) Confirmed patients does not have plasma cell leukemia: Yes (Patient denies and not found in chart review) Confirmed patients does not have any organ involvement by amyloidosis or evidence of amyloidosis related organ dysfunction. Yes (Patient denies and 10/26/2022 in chart review - [facility] note states ruled out) Confirmed patients does not have progressive disease at any time prior to registration. No (Patientdenies and not found in chart review) Prior/Concurrent Therapy Criteria Confirmed patients is not refractory to either lenalidomide or daratumumab/rHuPH20. No. Patient tolerating Revlimid a this time. (Patient denies and not found in chart review) Confirmed patients is not intolerant to either lenalidomide or daratumumab/rHuPH20. No. Patient tolerating Revlimid a this time. (Patient denies and not found in chart review) Confirmed patients has induction therapy within 12 months prior to registration Step 1 and have received at least two cycles of induction therapy: Patient is on cycle #3 Bortezomib - awaiting date for transplant - but patient is confirmed to want transplant Patients must be registered to Step 1 prior to Step 2. Registration to Step [address] place prior to or after autologous stem cell transplant (ASCT), but after completetion of induction therapy. - Patient will be completed within the next month or two - email with sponsor on s drive (just must be completed within 18 months of induction and within 180 days per sponsor) Confirmed patients has not received any investigational agents within 14 days prior to registration: Yes (Patient denies and not found in chart review) Confirmed patients is willing and able to take DVT prophylaxis (aspirin, low molecular weight heparin, warfarin, or equivalent oral anticoagulation): Yes, patient takes baby Asprin now (Patient denies issues) Clinical/Laboratory Criteria prior to ASCT Confirmed patients is ? 18 and ? 75 years of age at time of registration to Step 1: Yes, 72 years old (1950) Confirmed history and physical exam within 28 days prior to registration: Yes, step 1 HPI 01/03/2023 Connie Mccain D.O. Expires: 01/31/2023 Confirmed patients must have [place] Performance Status / ECOG ? 2. Yes, 0- Fully active, documented01/03/2023 Connie Mccain D.O. Confirmed patients has evidence of adequate renal function, as defined by (1) creatinine clearance (CrCl) ? 30 mL/min., as measured by a 24-hour urine collection, or estimated by the Cockcroft and Gault formula, or (2) serum creatinine < 2.5 mg/dL. Values must be obtained within 28 days prior to registration: Yes, CALCREAT = 82 Male - Age [age] years old - Height - 08/08/2022 185.7 cm Creatinine 1.07 - 01/03/2023 Weight 90.3 01/03/2023 Expires: 01/31/2023 Confirmed patients has adequate hepatic function defined by the following within 42 days prior to registration: Yes Expires: 02/14/2023 Confirmed patient Total bilirubin ? 1.5 x IULN (institutional upper limit of the norm): Yes (0.4 01/03/2023) AND Confirmed AST and ALT ? 3.0 x IULN: Yes (AST=11 ALT=9 on 01/03/2023) Patients with a known history of asthma or chronic obstructive pulmonary disease must not have had forced expiratory volume in 1 second (FEV1) < 50% of predicted Normal: Pulmonary function will be completed prior to transplant, but patient denies COPD or Asthma01/03/2023 - note required at this time - also completed Onstudy form Confirmed patients does not have moderate or severe persistent asthma within the past 2 years and or currently uncontrolled asthma of any classification.Yes (Patient denies not found in chart review) Patients must meet one of the following criteria: Be acceptable for transplant per institutional guidelines this must be documented on [id number] Onstudy Form: Completed and will be patient folder [address] after enrolled for patient ID Or Confirmed patient has completed autologous stem cell transplant within 180 days prior to registration: No - but meets standards - pending transplant scheduling Confirmed patients did not have proir autograft or allograft, or prior organ transplant requiring immunosuppressive therapy: Yes (Patient denies and not found in chart review) Confirmed patient is human immunodeficiency virus (HIV) negative prior to registration: Yes (Patient denies and not found in chart review) Confirmed patients do not have any known allergy to any of the study drugs: Yes, patient has never taken zoran, but tolerating Revlimid (Patient denies and not found in chart review) Confirmed patients does not have any uncontrolled bacterial, viral or fungal infections or (currently taking medication and with progression or no clinical improvement) at time of enrollment: Yes (Patient denies and not found in chart review) Confirmed patient does not have known central nervous system (CHAPLAINCY) involvement with multiple myeloma, defined as CSF positivity for plasma cells at any time or a parenchymal CHAPLAINCY plasmacytoma at time of enrollment: Yes (Patient denies and not found in chart review) Patients must not be seropositive for hepatitis C (except in the setting of sustained virologic response, defined as undetectable viral load at least 12 weeks after completion of antiviral therapy). HCV testing is only required if clinically indicated or if the patient has a history of HCV.: Negative test 01/03/2023(Patient denies and not found in chart review) Confirmed patients has not difficulty to take and swallow oral medication (capsules) whole: Yes (Patient denies issues) Confirmed patient does not have any known impairment of gastrointestinal function or gastrointestinal disease that may significantly alter the absorption of study drug (e.g. ulcerative disease, uncontrolled nausea, vomiting, diarrhea, malabsorption syndrome, or small bowel resection): Yes (Patient discussed prior issues with diarrhea, but that has since resolved after testing and pancreatic enzymes- patient now struggles with constipation - note Connie Mccain, 01/03/2023) Confirmed patient does not have any other prior malignancy: except for the following: adequately treated basal cell or squamous cell skin cancer, in situ cervical cancer, adequately treated Stage I or II cancer from which the patient is currently in complete remission, or any other cancer from which the patient has been disease free for three years: Yes (Patient denies and not found in chart review) Confirmed patients does not have any uncontrolled intercurrent illness including (not limited to): Symptomatic CHF (NYHA III/IV), unstable angina pectoris or coronary angioplasty, or stenting within 6 months prior to registration, Unstable cardiac arrhythmia (ongoing cardiac dysrhythmias of NCI CTCAE v5.0 Grade ? 2), intra-cardiac defibrillators, known cardiac metastases, or abnormal cardiac valve morphology (? Grade 3), or known psychiatric illness that would limit study compliance: Yes (Patient denies and not found in chart review) Patients must not be seropositive for hepatitis B (defined by a positive test for hepatitis B surface antigen [HBsAg]). Subjects with resolved infection (i.e., subjects who are HBsAg negative but positive for antibodies to hepatitis B core antigen [anti-HBc] and/or antibodies to hepatitis B surface antigen [anti-HBs]) must be screened using real-time polymerase chain reaction (PCR) measurement of hepatitis B virus (HBV) DNA levels. Those who are PCR positive will be excluded. EXCEPTION: Subjects with serologic findings suggestive of HBV vaccination (antiHBs positivity as the only serologic marker) AND a known history of prior HBV vaccination, do not need to be tested for HBV DNA by PCR: (Patient denies) Negative 01/03/2023 For patients who have not yet received transplant: Patients must be willing and able to return to participating treatment center for their assigned treatment after randomization. Note that patients need not have a direct relationship with the transplant center in order to register - Yes (Patient agrees) Patient-Reported Outcomes Criterion Patients who can complete patient-reported outcomes instruments in Sinhala - Patient agrees Regulatory Criteria Patient must be informed of the investigational nature of this study and must sign and give writteninformed consent in accordance with institutional and federal guidelines: Yes, Consented to OBSERVATION:01/03/2023 Patient has ability to understand consent and willingness to sign written informed consent: Yes ICF signed prior to any study related tests/procedures: Yes consented 01/03/2023 Patient has voluntarily consented for study: Yes Patient is willing and able to comply with the protocol for the duration of the study including undergoing treatment and scheduled visits and examinations: Yes Screening procedures completed and history confirmed with patient for study eligibility: Yes Patient has an established PCP for standard care: Yes Patient aware of study calendar and weekly commitments for infusions: Yes Patient has adequate venous access for frequent infusions: Yes Preferred/Appropriate venous access: Peripheral IV at this time Current medications: Current use of anticoagulants: YES (see medications below if applicable) Anticoagulants: asa 81mg Current use of herbal preparations or medications: No Prophylactic shingles medication: acyclovir Current Outpatient Medications Medication Sig Start/Stop Use lenalidomide (REVLIMID) 25 mg capsule TAKE 1 CAPSULE BY MOUTH DAILY FOR 21 DAYS, THEN 7 DAYS OFF 21capsule 0 potassium chloride ER (K-DUR, KLOR-CON) 20 mEq tablet Take 1 tablet by mouth once daily. 30 tablet 2 linaclotide (LINZESS) 145 mcg capsule Take 145 mcg by mouth DAILY (6 AM). aspirin, enteric coated (ASPIRIN, ENTERIC COATED) 81 mg EC tablet Take 81 mg by mouth once daily. dexAMETHasone (DECADRON) 4 mg tablet Take 10 tablets by mouth one time a week. on days 1, 8, 15 and22 of each cycle. 40 tablet 5 acyclovir (ZOVIRAX) 400 mg tablet Take 1 tablet by mouth twice daily. 60 tablet 5 ondansetron (ZOFRAN) 8 mg tablet Take 1 tablet by mouth every 8 hours as needed for nausea/vomiting. 30 tablet 2 clonazePAM (KLONOPIN) 0.5 mg tablet Take 0.5 mg by mouth once daily. glimepiride (AMARYL) 2 mg tablet Take 2 capsules by mouth in AM & 1 capsule in PM. amLODIPine (NORVASC) 5 mg tablet Take 5 mg by mouth once daily. atorvastatin (LIPITOR) 10 mg tablet Take 10 mg by mouth once daily. losartan (COZAAR) 50 mg tablet Take 50 mg by mouth once daily. No current facility-administered medications for this visit. Medical History: PAST MEDICAL HISTORY Diagnosis Date Arthritis Treated with medication Chronic diarrhea Resolved and now constipation Diabetes mellitus (HCC) Treated with medication Essential hypertension Treated with medication Mixed hyperlipidemia Treated with medication Surgical History: PAST SURGICAL HISTORY Procedure Laterality Date REPAIR INCISIONAL HERNIA,REDUCIBLE Resolved 8th grade SKIN BX, 1 LESION 06/2022 non cancerous Baseline Toxicities per CTCAE v. 5: All predate therapy, are chronic conditions and will not be actively followed unless they worsen during the clinical trial. Hyperglycemia; Grade 1: Start Date: >5 years PRIOR TO STUDY Drugs to Treat: None. Action Required: None Outcome: Ongoing. Lymphocyte Count Decreased; Grade 3: Start Date: Intermittent PRIOR TO STUDY 11/16/2022 Drugs to Treat: None. Action Required: None Outcome: Ongoing. Patient turned in a 24 hour urine: N/A at this time Patient knows to RTC on 01/04/2022 for next induction therapy. Patient knows to call in the interim for any questions or concerns. Patient has contact information for Uma Gill Research Nurse andDr. Mccain, along with the office number. Patient meets all Criteria for Study Participation: Yes REID Bynum, RN Clinical Research Nurse [phone] documented in this [facility]03-17-2023 History of Present illness Narrative* Temo Gill RN - 01/06/2023 8:48 AM EDT Images from the original note were not included. IRB # [id number], [facility]# [id number] study entitled Phase III Study of Daratumumab/rHuPH20 (NSC- [id number]) + Lenalidomide or Lenalidomide as Post- Autologous Stem Cell Transplant Maintenance Therapy in Patients with Multiple Myeloma (MM) Using Minimal Residual Disease to Direct Therapy Duration (DRAMMATIC Study). Pt ID: [id number] Consented: 01/03/2023 Observational Consent date version 03/29/2022 HIPAA signed:01/03/2023 Registered to Step 1: 01/06/2023 Temo Gill RN documented in this [facility]03-15-2023 History of Present illness Narrative* Marvin Aguirre RN - 01/04/2023 2:20 PM EDT Assessment unchanged from 01/03/[address] Mccain documented in this [facility]03-14-2023 Miscellaneous Notes* Addendum Note - Connie Mccain DO - 01/03/2023 2:20 PM EDTAddended by: CONNIE MCCAIN on: 01/03/2023 02:20 PM Modules accepted: Orders documented in this [facility]03-14-2023 History of Present illness Narrative* Temo Gill RN - 01/03/2023 12:39 PM EDT INFORMED RESEARCH CONSENT IRB # [id number], [facility]# [id number] Study Title: Phase III Study of Daratumumab/rHuPH20 (NSC- [id number]) + Lenalidomide or Lenalidomide asPost-Autologous Stem Cell Transplant Maintenance Therapy in Patients with Multiple Myeloma (MM) Using Minimal Residual Disease to Direct Therapy Duration (DRAMMATIC Study). Observational Consent Signed:January 03, 2023 Date version 03/29/2022 Discussed above research protocol with patient and family. The risks, benefits, alternatives, and costs were discussed. The study requirements were reviewed. All patient questions were addressed and answered. Patient has read and understands the study procedures and requirements. Patient has agreedto proceed with trial participation and consent signed at December at 11:00 am . Copy of the signed consent provided to the patient. Enrollment in this study does NOT alter treatment plans at this time. Temo Gill RN January 03, 2023 [facility] History of Present illness Narrative* Connie Mccain, - 01/03/2023 11:15 AM EDT Oncologic problem(s): 1) IgG lambda multiple myeloma. HPI: The patient is a 72-year-old male with a past medical history significant for type 2 diabetes,high cholesterol, hypertension and right bundle branch block. Patient originally presented to the emergency room at [facility] on 04/19/2022 with new onset of confusion that day which had been worsening. Laboratory work-up significant for hypokalemia. CT of the brain was unremarkable. He was admitted. During hospitalization it was noted that hehad been having diarrhea for 6 to 8 weeks. Stool studies were positive for Campylobacter, blood andlactoferrin. C. difficile was negative. CT of the abdomen pelvis on 04/21/2022 noted abnormal pericholecystic edema without gallstones. Renal cysts and colonic diverticulosis were noted. He was found to have elevation of sed rate to 39, CRP 134. His albumin was 2.3. IgA low at 37. He was discharged on azithromycin, potassium and magnesium supplement. He was seen in the outpatient setting for follow-up visit on 07/11/2022. He continued to have one episode of explosive diarrhea daily. This had been going on for about 8 months. CBC on 07/11 showed a white count of 6400. Differential was normal. Hemoglobin 14.9 g/dL. Platelet count 275,000. Chemistries significant for creatinine of 1.29 g/dL. Previously 1.13 g/dL on 04/27/2022.Calcium was 9.3 mg/dL. Total bilirubin, AST, ALT and alkaline phosphatase were normal. LDH was 181.C-reactive protein was less than 2.09. Total protein was 8.8 g/dL. Total IgG was 2462 mg/dL. IgA decreased to 28 mg/dL. IgM normal at 32 mg/dL. On protein electrophoresis, patient was found to have 2M spikes both IgG lambda by immunofixation. For spike was quantitated at 1.2 g/dL and the second was quantitated at 0.6 g/dL. Cytoplasmic and perinuclear ANCA both negative. Atypical p-ANCA negative. Patient described diarrhea as loose, eran stools sometimes explosive typically one bowel movement per day however. He had not observed any blood. Had a colonoscopy [address] Arteaga. His appetite was normal. He had not lost weight. Denied reflux and nausea. He did get abdominal bloating associated with the diarrhea. He denied musculoskeletal pain. He denied symptoms of sensory neuropathy. He sees an team supervisor once a year for dilated exam. He has not been told he has retinopathy. Recent removal of early melanoma back. Blue nevus right ankle--required WLE--scheduled. PMR--about 15 years ago. Patient underwent colonoscopy on 09/21/2022. Preparation of the colon was fair. -One 6 mm polyp at the ileocecal valve, removed with a hot snare. Resected and retrieved. -One 5 mm polyp in the ascending colon, removed with a hot snare. Resected and retrieved. -Congested mucosa in the descending colon, at the splenic flexure, in the ascending colon and in the cecum. Biopsied. -Diverticulosis in the recto-sigmoid colon, in the sigmoid colon and in the descending colon. -Stool in the rectum, in the sigmoid colon, in the descending colon and at the hepatic flexure. Fluid aspiration performed. -The examined portion of the ileum was normal. Biopsied. Pathology: A. Ileocecal valve polyp, biopsy: -Consistent with fibrolipomatous polyp. -See comment. B. Small bowel, biopsy: -No pathologic change. C. Cecum, biopsy: -Mild melanosis coli. D. Colon, random biopsy: -Mild melanosis coli. E. Ascending colon polyp, biopsy: -Fragments of tubular adenoma. B, C, D & E - No congophilic material identified. Congo red stain with matched control is negative. ADDENDUM C & D. No congophilic material is noted in these biopsies on light and polarized microscopy. Congo Red stain with matched control was used in the evaluation of this case. He was diagnosed with pancreatic insufficiency and was to start pancreatic enzyme replacement. Current therapy: 1) RVd. Cycle #1 began 11/09/2022. 2) Zometa. Presents for ongoing oncologic management. Interim history: He continues to tolerate treatment very well with minimal to no symptomatic side effect. Specifically no symptoms of sensory neuropathy. No significant fatigue or nausea. He had significant musculoskeletal pain following first dose of Zometa, but he did not take Tylenolas advised by nursing. He was evaluated by orthopedic surgery for left groin and thigh pain potentially secondary to the paralabral or ganglion cyst of the left thigh incidentally observed on initial MRI of the pelvis. He was diagnosed with degenerative disease of the left hip and underwent steroid injection yesterday. Left groin and thigh pain significantly improved after injection yesterday. PMH, medications and allergies personally reviewed by me today. Any changes documented in appropriate section. ROS: Constitutional: Denies episodes of fever and night sweats. Not significantly fatigued. Neuro: Denies HAMILTON, vertigo, dizziness and imbalance. HEENT: No recent change in voice, vision or hearing. Resp: Denies cough, wheeze and hemoptysis. Denies shortness of breath at rest. Denies MACE. CVS: Denies exertional chest pain, PND, orthopnea and LE edema. GI: See HPI. : Denies dysuria or gross hematuria. Feels he voids to completion for the most part. 1 episode ofnocturia nightly. Endo: Denies hot flashes. Denies polyuria and polydipsia. Denies heat and cold intolerance. Musculoskeletal: See HPI. Derm: Denies rash. Denies jaundice and diffuse pruritis. Heme: Denies unusual bleeding and unexplained bruising. Psych: Normal mood. PHYSICAL EXAM: Vitals: Blood pressure 152/88, pulse 81, temperature 37.1 C (98.8 F), temperature source Temporal, weight 90.3 kg (199 lb), SpO2 98 %. Well-appearing and in no acute distress. EYES: Sclerae are anicteric bilaterally. LYMPHATIC: There is no palpable cervical or supraclavicular adenopathy. RESPIRATORY: Inspiratory breath sounds are of normal intensity in all rashid. No rales, wheezes or rhonchi. Expiratory phase is normal. CARDIOVASCULAR: Rhythm is regular. ABDOMEN: The abdomen is nondistended. Extremities: No swelling or edema. SKIN: No jaundice or rash. NEUROLOGIC: human resource intern II-XII are grossly intact. No focal motor weakness. DTRs are symmetric and normal. LABS: Component Latest Ref Rng & Units 01/03/2023 WBC 3.70 - 11.00 k/uL 7.33 RBC 4.20 - 6.00 m/uL 4.53 Hemoglobin 13.0 - 17.0 g/dL 13.0 Hematocrit 39.0 - 51.0 % 38.8 (L) MCV 80.0 - 100.0 fL 85.7 MCH 26.0 - 34.0 pg 28.7 MCHC 30.5 - 36.0 g/dL 33.5 RDW-CV 11.5 - 15.0 % 14.4 Platelet Count 150 - 400 k/uL 234 MPV 9.0 - 12.7 fL 10.8 Neut% % 85.3 Abs Neut (ANC) 1.45 - 7.50 k/uL 6.25 Lymph% % 6.3 Abs Lymph 1.00 - 4.00 k/uL 0.46 (L) Morton% % 7.8 Abs Morton <0.87 k/uL 0.57 Eosin% % 0.1 Abs Eosin <0.46 k/uL <0.03 Baso% % 0.1 Abs Baso <0.11 k/uL <0.03 Immature Gran % % 0.4 IMMATURE GRANS (ABS) <0.10 k/uL 0.03 NRBC /100 WBC 0.0 Absolute nRBC <0.01 k/uL <0.01 DTYPE Auto Protein, Total 6.3 - 8.0 g/dL 7.6 Albumin 3.9 - 4.9 g/dL 4.1 Calcium 8.5 - 10.2 mg/dL 9.1 Bilirubin, Total 0.2 - 1.3 mg/dL 0.4 Alkaline Phosphatase 38 - 113 U/L 76 AST 14 - 40 U/L 11 (L) ALT 10 - 54 U/L 9 (L) Glucose 74 - 99 mg/dL 296 (H) BUN 9 - 24 mg/dL 19 Creatinine 0.73 - 1.22 mg/dL 1.07 Sodium 136 - 144 mmol/L 137 Potassium 3.7 - 5.1 mmol/L 4.6 Chloride 97 - 105 mmol/L 107 (H) CO2 22 - 30 mmol/L 20 (L) Anion Gap 9 - 18 mmol/L 10 eGFR >=60 mL/min/1.73m 75 Component Latest Ref Rng & Units 10/26/2022 11/16/2022 12/06/2022 12/21/2022 Albumin 3.43 - 5.41 g/dL 4.33 3.99 3.71 3.91 Alpha 1 Globulin 0.18 - 0.43 g/dL 0.26 0.35 0.42 0.45 (H) Alpha 2 Globulin 0.42 - 0.98 g/dL 0.65 0.72 0.79 0.97 Beta Globulin 0.61 - 1.17 g/dL 0.54 (L) 0.67 0.63 0.78 Gamma Globulin 0.53 - 1.51 g/dL 2.12 (H) 1.98 (H) 1.75 (H) 1.58 (H) Interpretation (Prot Electro) No definitive M protein is identified on protein electrophoresis. An M protein is identified on protein electrophoresis. (A) An M protein is identified on protein electrophoresis. (A) An M protein is identified on protein electrophoresis. (A) An M protein is identifiedon protein electrophoresis. (A) Interpretation Comment for Protein Electrophoresis See separate immunofixation report for characterization of monoclonal gammopathy. See separate immunofixation report for characterization of monoclonal gammopathy. See separate immunofixation report for characterization of monoclonal gammopathy. See separate immunofixation report for characterization of monoclonal gammopathy. M-Protein Location Gamma Fraction 1 Gamma Fraction 1 Gamma Fraction 1 Gamma Fraction 1 M-Protein Location 2 Gamma Fraction 2 Gamma Fraction 2 Gamma Fraction 2 Gamma Fraction 2 M-Protein Concentration <=0.00 g/dL 1.12 (H) 1.00 (H) 0.79 (H) 0.80 (H) [facility] [place] Staff Review Reviewed by Joel Hernandez MD, Ph.D ([id number]) Reviewed by Dr. Tom Patiño MD Reviewed by Eugenie Pickens MD Reviewed by Kyler Thrasher M.D. M-Protein Concentration 2 <=0.00 g/dL 0.62 (H) 0.59 (H) 0.51 (H) 0.49 (H) [place] Free, Serum 3.3 - 19.4 mg/L 11.7 18.9 22.8 (H) 29.7 (H) Lambda Free, Serum 5.7 - 26.3 mg/L 43.5 (H) 64.5 (H) 42.8 (H) 66.6 (H) K/L Ratio, Serum 0.26 - 1.65 0.27 0.29 0.53 0.45 EKG from [facility] 04/20/2022 demonstrated normal sinus rhythm with left axis deviation and right bundle branch block. PATHOLOGY: Bone marrow biopsy 08/24/2022: A-C. Bone marrow, biopsy core, aspirate clot, touch imprint and aspirate smear: - Plasma cell neoplasm (lambda), representing approximately 20% of bone marrow cellularity. - Cellular (30% excluding plasma cells) bone marrow with trilineage hematopoiesis. - Adequate stainable iron. - See comment. D. Peripheral blood smear: - Unremarkable peripheral blood smear. - See comment. The patient is investigated for M protein characterized as IgG kappa. The abnormal findings in this case consist mainly of a population of monotypic lambda plasma cells representing approximately 20% of total bone marrow cellularity. In conclusion, the findings in this case are diagnostic of a plasma cell neoplasm. Further classification requires correlation with the clinical, laboratory and etiologic findings. Conventional cytogenetic analysis may provide additional relevant information. Other: Examination under polarized light of a Congo red stain performed on this biopsy identifies no evidence of amorphous material with abnormal discoloration (no amyloid). Immunohistochemical stains have been performed on sections of fixed, paraffin-embedded tissue with appropriately staining controls. The stains for CD138, kappa or lambda immunoglobulin light chains highlight the population ofmonotypic lambda plasma cells representing approximately 20% of total cellularity. IMAGING: Whole-body CT 08/11/2022: IMPRESSION: 1. No suspicious lytic lesions are identified. 2. Nonspecific fat stranding in the left lower quadrant mesentery with a focus of soft tissue whichcould represent an enlarged lymph node. The appearance is nonspecific, and the differential based on the appearance includes mesenteric panniculitis and lymphoma, among other etiologies. Management considerations can include PET/CT or short-term follow-up CT abdomen and pelvis in 6 weeks. 3. No acute abnormality in the chest. Scattered pulmonary nodules as large as 5 mm below size criteria for follow-up. 4. Other nonacute and nonaggressive findings as per the body of the report. CT A/P 08/26/2022: Nonspecific mesenteric stranding with probably a single mildly enlarged mesenteric lymph node. These findings are nonspecific. Well-defined upper abdominal mass likely extrahepatic in origin but contiguous to the liver. Considerations include both a complex cyst and a solid mass. Recommend correlation with MR of liver with IV contrast. Small splenic and intrahepatic densities probably benign. Right lower lobe pulmonary nodule. MRI Liver 09/01/2022: IMPRESSION: There is a 3.5 x 3.6 cm benign cyst along the posterior aspect of the left lobe of the liver. Additional 6 mm cyst within segment IVb of the liver. There is a 9 mm enhancing lesion superior margin of the spleen. The appearance of this is nonspecific but could represent hemangioma or other lesions. Follow-up MRI in 6-12 months is recommended to assess for stability. MRI spine and pelvis 10/06/2022: IMPRESSION: Cervical: Moderate degenerative disc disease at C3-C4 causing moderate canal stenosis and severe right neural foraminal stenosis. No pathologic enhancement. No marrow signal abnormality in the cervical spine. Thoracic: Normal MRI thoracic spine without and with contrast. No definite marrow signal abnormality. No abnormal extraosseous soft tissue. No pathologic enhancement. Lumbar: Mild degenerative disc disease at L4-L5. No marrow signal abnormality. No extraosseous soft tissue. No pathologic enhancement. Normal appearance of the conus medullaris and cauda equina. Cervical Anatomic Variant: None. Assume 7 cervical vertebrae with counting from the craniocervical junction. Anatomic Thoracic/Lumbar Variant: None. L4-5 is considered the level of the iliac crest and assume there are 5 lumbar-type vertebrae. IMPRESSION: 1. 2 SMALL ENHANCING MARROW LESIONS DESCRIBED CONCERNING FOR MYELOMA LESIONS GIVEN HISTORY. 2. BILATERAL MODERATE HIP OSTEOARTHRITIS. 3. PARALABRAL OR GANGLION CYST AT THE LEFT THIGH. Bone Marrow: 6 mm T2 hyperintense focus at the LEFT sacral ala with low intrinsic T1 signal and mild homogenous enhancement (29:9). 10 mm T2 hyperintense, T1 hypointense and enhancing focus in the right ischium (29:10). No fractures. ASSESSMENT/PLAN: (C90.00) Multiple myeloma not having achieved remission (HCC) (primary encounter diagnosis) Assessment: -The patient is a 72-year-old male has a past medical history significant for diabetes and chronic diarrhea that was characterized by one explosive watery stool daily (recently diagnosed with pancreatic insufficiency). Was hospitalized 03/2022 when diarrhea significantly worsened and he was diagnosed with and treated for Campylobacter infection. During that evaluation, was found to have two IgG lambda monoclonal antibodies. He did not have hypercalcemia or anemia but had elevated serum creatinine (which may be related to volume depletion when hospitalized for diarrhea and mental status change). 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 Low to intermediate risk disease (PCs 20%). -Imaging--no lytic lesions on whole body CT; Liver cyst and splenic nodule (6-12 month f/u MRI recommended). -Bone marrow negative for amyoid. -Colonic biopsies negative for amyloid. -Subsequent MRI of spine and pelvis revealed two T2 hyperintense foci in the pelvis, one in the left sacral rebeka and one in the right ischium. -The finding of the bone lesions on MRI fulfilled criteria for multiple myeloma. -FISH panel revealed (11;14) (q13;q32) (IGH/CCND1) translocation consistent with the presence of a plasma cell neoplasm associated with standard risk disease. -R-ISS stage I (serum beta microglobulin less than 3.5 mg/L and serum albumin greater than 3.5 g/dL; standard risk disease by FISH testing as outlined above and serum LDH less than upper limit of normal). -PS ECOG 0. -He continues to tolerate VRd very well. Constipation is the only appreciable side effect at this time. He was having chronic diarrhea previously that was attributed to pancreatic insufficiency. -Minimal response thus far (~30% reduction in MP #1). -Again reviewed overall plan for 4-6 cycles initially. Autologous stem cell transplant evaluation following cycle 2 or 3 depending on response. -Answered all of his and his family's questions to their satisfaction. Plan: -Okay for cycle #3 tomorrow. -Begin monthly Zometa. -Monthly assessment of serum monoclonal protein. -Referral to [facility] for autologous stem cell transplant evaluation following cycle #3. -MRI abdomen in 6 months to follow-up on MRI liver findings from 09/01/2022. Supportive care: ID: Plan: -Continue Acyclovir for shingles prophylaxis up to 6 months after stopping bortezomib. Heme: -No anemia. -Reviewed CBC from today. Counts allow continued therapy. Plan: -Monitor counts. Skeletal: -Only lytic lesions observed over those in the pelvic bones on MRI initially. -Symptomatic from the left hip degenerative changes. Steroid injection yesterday helped. Plan: -Continue monthly Zometa tomorrow. -Advised scheduled dosing of Tylenol and wrote out instructions. -Follow-up with orthopedic surgery. DVT prophylaxis: -Low dose ASA since on lenalidomide and dexamethasone. Neuro: -No symptoms of sensory neuropathy currently. Portions of this documentation were copied and pasted from previous office visit notes in order to provide a cohesive continuity of the history. The note has been reviewed and edited and updated as necessary. I spent a total of 40 minutes on the date of the service which included preparing to see the patient, [id number] patient care, completing clinical documentation, obtaining and/or reviewing separately obtained history, performing a medically appropriate examination, counseling and educating the pat ient/family/caregiver, ordering medications, tests, or procedures, and communicating results to thepatient/family/caregiver. Connie Mccain DO documented in this encounterFlower Hospital03-02-[facility]23 History of Present illness Narrative* Carmelita Emerson Ma - 12/22/2022 3:34 PM EST Order for US guided injection left hip faxed to [facility]. * Ivet Healy Dixie, - 12/22/2022 1:28 PM EST Images from the original note were not included. ed Reason for Visit/Chief Complaint Oseas Joseph is a 72 year old male who presents today for a new evaluation of following complaint: Patient presents with: Pelvis - New Referred by Dr. Mccain History of Present Illness: PAIN EVALUATION 12/15/2022 1217 Pain Level: 8 Description: Aching;Burning;Radiating Duration Units: Days Frequency: Continuous Intervention/Comfort measure: Medication HPI: Oseas Joseph is a 72 year old male presenting today with Pelvic cyst. Pain history isnoted as above. Patient states on 12/06 he had bone strengthening infusion and then started having constant pain. The pain is worse in his upper thigh. He said his right leg did the same thing and only lasted for a day and then back to normal. He has been having some swelling in his legs and has been elevating and helps some. He had veinous doppler ultrasounds and was negative for DVT. X-rays doneon 12/06/22. Taking no meds for the pain. Previous Treatments: Ice: No Heat: No Brace: No NSAIDs: No Injections: No Surgeries: No Physical Therapy: No Review of Systems: Patient did not have, and does not currently have, any weight loss, malaise, fever, chills, headache, chest pain, chest pressure, palpitations, cough, shortness of breath, orthopnea, paroxsymal nocturnal dyspnea, nausea, vomiting, diarrhea, constipation, melena, hematochezia, urinary difficulties, prolonged bleeding, easily bruising, heat or cold intolerance, new onset joint pain or swelling, newonset extremity weakness or numbness, new onset auditory or visual disturbances, lightheadedness, dizziness, partial loss of consciousness or full loss of consciousness. Current Outpatient Medications on File Prior to Visit Medication Sig lenalidomide (REVLIMID) 25 mg capsule TAKE 1 CAPSULE BY MOUTH DAILY FOR 21 DAYS, THEN 7 DAYS OFF potassium chloride ER (K-DUR, KLOR-CON) 20 mEq tablet Take 1 tablet by mouth once daily. linaclotide (LINZESS) 145 mcg capsule Take 145 mcg by mouth DAILY (6 AM). aspirin, enteric coated (ASPIRIN, ENTERIC COATED) 81 mg EC tablet Take 81 mg by mouth once daily. dexAMETHasone (DECADRON) 4 mg tablet Take 10 tablets by mouth one time a week. on days 1, 8, 15 and22 of each cycle. acyclovir (ZOVIRAX) 400 mg tablet Take 1 tablet by mouth twice daily. ondansetron (ZOFRAN) 8 mg tablet Take 1 tablet by mouth every 8 hours as needed for nausea/vomiting. clonazePAM (KLONOPIN) 0.5 mg tablet Take 0.5 mg by mouth once daily. glimepiride (AMARYL) 2 mg tablet Take 2 capsules by mouth in AM & 1 capsule in PM. amLODIPine (NORVASC) 5 mg tablet Take 5 mg by mouth once daily. atorvastatin (LIPITOR) 10 mg tablet Take 10 mg by mouth once daily. losartan (COZAAR) 50 mg tablet Take 50 mg by mouth once daily. No current facility-administered medications on file prior to visit. ALLERGIES No Known Allergies Physical Exam: Vitals: There were no vitals taken for this visit. Psych: Pleasant, good affect and mood General Appearance: Well appearing, alert, in no acute distress, well-hydrated, well nourished.. Skin: Skin color, texture, turgor normal, no suspicious rashes or lesions. Peripheral Pulses: Normal. Neurologic: Gait normal. Reflexes normal and symmetric. Sensation grossly intact.. Lymph Nodes: No cervical lymphadenopathy, No supraclavicular lymphadenopathy, No axillary lymphadenopathy., and No inguinal lymphadenopathy.. Respiratory: No recent pulmonary infection, hemoptysis, chronic cough, or shortness of breath at rest Rheumatologic: Joint deformities: left hip pain Right Hip Exam Tenderness The patient is experiencing no tenderness. Range of Motion Abduction: abnormal Adduction: abnormal Extension: abnormal Flexion: abnormal External rotation: abnormal Internal rotation: abnormal Muscle Strength The patient has normal right hip strength. Abduction: 5/5 Adduction: 5/5 Flexion: 5/5 Other Erythema: absent Sensation: normal Pulse: present Left Hip Exam Tenderness The patient is experiencing tenderness in the anterior. Range of Motion Abduction: abnormal Adduction: abnormal Extension: abnormal Flexion: abnormal External rotation: abnormal Internal rotation: abnormal Muscle Strength The patient has normal left hip strength. Abduction: 5/5 Adduction: 5/5 Flexion: 4/5 Other Erythema: absent Sensation: normal Pulse: present Comments: Dec strength in hip flexion Neg hoffmans, neg homans, dec IR/ER of left hip Neg heel strike, dtrs intact b/l LE Imaging: Last MRI Lumbar Spine - Impression Only MRI LUMBAR SPINE WO/W IVCON Exam End: 10/06/2022 11:12 AM (Final result) Impression: IMPRESSION: Cervical: Moderate degenerative disc disease at C3-C4 causing moderate canal stenosis and severe right neural foraminal stenosis. No pathologic enhancement. No marrow signal abnormality in the cervical spine. Thoracic: Normal MRI thoracic spine without and with contrast. No definite marrow signal abnormality. No abnormal extraosseous soft ... Lumbar: Mild degenerative disc disease at L4-L5. No marrow signal abnormality. No extraosseous soft tissue. No pathologic enhancement. Normal appearance of the conus medullaris and cauda equina. Cervical Anatomic Variant: None. Assume 7 cervical vertebrae with counting from the craniocervical junction. Anatomic Thoracic/Lumbar Variant: None. L4-5 is considered the level of the iliac crest and assume there are 5 lumbar-type vertebrae. Bdr: [facility] Transcribe Date/Time: Oct 06 2022 12:59P Dictated by : DIVINA OSMAN MD Last MRI Hip/Pelvis - Impression Only MRI PELVIS ORTHO GENERAL WO/W IVCON Exam End: 10/06/2022 11:12 AM (Final result) Impression: IMPRESSION: 1. 2 SMALL ENHANCING MARROW LESIONS DESCRIBED CONCERNING FOR MYELOMA LESIONS GIVEN HISTORY. 2. BILATERAL MODERATE HIP OSTEOARTHRITIS. 3. PARALABRAL OR GANGLION CYST AT THE LEFT THIGH. ... Bone Marrow: 6 mm T2 hyperintense focus at the LEFT sacral ala with low intrinsic T1 signal and mild homogenous enhancement (29:9). 10 mm T2 hyperintense, T1 hypointense and enhancing focus in the right ischium (29:10). No fractures. Hip joints: Large [id number] images of the hips demonstrate moderate degenerative changes with areas of subchondral marrow signal changes suggesting full-thickness cartilage loss. Large multilocular cystic structure with the peripheral enhancement measuring 2.7 x 2 x 7 cm laterally to the LEFT hip joint line and extending distally just laterally to the rectus femoris tendon and muscle. This may represent a ganglion cyst or a large para labral cyst.. Sacroiliac joints: Within normal limits. Assessment and Plan: Impression: Encounter Diagnosis ICD-10-CM 1. Pain in left hip M25.552 IMAGING GUIDED ASP/INJ HIP JT/BURSA LEFT 2. Primary osteoarthritis of both hips M16.0 3. Ganglion cyst M67.40 Plan: Today, in detail, through a thorough evaluation, we discussed possible etiologies of pain and our plans for further diagnostic and therapeutic interventions. We discussed strategies for decreasing pain and improving strength, stability and motion. Patient's questions were answered in detailed. Patient verbalizes understanding and agrees with the treatment plan as discussed. US guided left hip injection D/w shelly wu to proceed Reviewed Imaging findings in details, cystic accumulations outside of joint, most likely coming from joint without signs of infection or mm, complicated course due to the fact that he has multiple myeloma but at this point no signs that the cystic structure that is most likely coming from the arthritis of his joint is related to any type of tumor or mass. Steroid injection should hopefully be diagnostic as well as therapeutic in terms of pain that may/not be coming from joint vs treatment Probly of low benefit to try to aspirate left hip cyst as quite loculated Will see patient approx 2 weeks after injection to ascertain level of benefit Pt aware and in agreement of plan documented in this encounterFlower Hospital03-01-2023 Miscellaneous Notes* Telephone Encounter - Connie Mccain DO - 12/21/2022 5:23 PM EST Noted. Hopefully Dr. Colin will have some insight to help me out with this problem. Connie Mccain DO * Telephone Encounter - Isabel Henry RN - 12/21/2022 2:23 PM EST FYI Pt here today for D15 C2 Velcade. Wanted to make you aware that leg pain is still present in bilat upper leg into the groin area. Pt states this started right after initial Zometa infusion and has not improved. Some minimal swelling in L leg. US at [facility] negative. Pt is scheduled to see Dr. Colin tomorrow to evaluate hip pain that presented prior to treatment. documented in this encounterFlower Hospital03-01-2023 History of Present illness Narrative* Temo Gill RN - 12/21/2022 2:45 PM EST Informed Consent Presentation IRB# [id number] Title: Phase III Study of Daratumumab/rHuPH20 (NSC- [id number]) + Lenalidomide or Lenalidomide as Post-Autologous Stem Cell Transplant Maintenance Therapy in Patients with Multiple Myeloma (MM) Using Minimal Residual Disease to Direct Therapy Duration (DRAMMATIC Study) Consent Expiration Date: 06/08/2023 Spoke with patient and spouse at the request of Dr. Connie Mccain D.O. . Treatment plan, including alltesting, potential risks/benefits, side effects and management, treatment alternatives, and follow-up explained. Roles of the clinical trial personnel to be involved and the financial responsibilities regarding procedures and medications were discussed. Discussed the importance of effective contraception during and following completion of active therapy for NA. Initial questions were answered davey copy of the informed consent was given to patient with the instructions to read it and call with any additional questions. Contact information for the research nurse was given to the patient. The patient verbalized appropriate understanding of all the aforementioned information presented. Time of Presentation: 2:45PM December 21, 2022 Temo Gill RN documented in this encounterFlower Hospital03-01-2023 Miscellaneous Notes* Telephone Encounter - Betsy Henriquez LPN - 12/21/2022 10:01 AM EST [employer] auth # [id number]. Please send electronically. Betsy Henriquez LPN documented in this encounterFlower Hospital02-14-2023 History of Present illness Narrative* Connie Mccain DO - 12/06/2022 9:10 AM EST Oncologic problem(s): 1) IgG lambda multiple myeloma. HPI: The patient is a 72-year-old male with a past medical history significant for type 2 diabetes,high cholesterol, hypertension and right bundle branch block. Patient originally presented to the emergency room at [facility] on 04/19/2022 with new onset of confusion that day which had been worsening. Laboratory work-up significant for hypokalemia. CT of the brain was unremarkable. He was admitted. During hospitalization it was noted that hehad been having diarrhea for 6 to 8 weeks. Stool studies were positive for Campylobacter, blood andlactoferrin. C. difficile was negative. CT of the abdomen pelvis on 04/21/2022 noted abnormal pericholecystic edema without gallstones. Renal cysts and colonic diverticulosis were noted. He was found to have elevation of sed rate to 39, CRP 134. His albumin was 2.3. IgA low at 37. He was discharged on azithromycin, potassium and magnesium supplement. He was seen in the outpatient setting for follow-up visit on 07/11/2022. He continued to have 1 episode of explosive diarrhea daily. This had been going on for about 8 months. CBC on 07/11 showed a white count of 6400. Differential was normal. Hemoglobin 14.9 g/dL. Platelet count 275,000. Chemistries significant for creatinine of 1.29 g/dL. Previously 1.13 g/dL on 04/27/2022.Calcium was 9.3 mg/dL. Total bilirubin, AST, ALT and alkaline phosphatase were normal. LDH was 181.C-reactive protein was less than 2.09. Total protein was 8.8 g/dL. Total IgG was 2462 mg/dL. IgA decreased to 28 mg/dL. IgM normal at 32 mg/dL. On protein electrophoresis, patient was found to have 2M spikes both IgG lambda by immunofixation. For spike was quantitated at 1.2 g/dL and the second was quantitated at 0.6 g/dL. Cytoplasmic and perinuclear ANCA both negative. Atypical p-ANCA negative. Patient described diarrhea as loose, eran stools sometimes explosive typically only 1 bowel movement per day however. He had not observed any blood. Had a colonoscopy [address] Arteaga. His appetite was normal. He had not lost weight. Denied reflux and nausea. He did get abdominal bloating associated with the diarrhea. He denied musculoskeletal pain. He denied symptoms of sensory neuropathy. He sees an team supervisor once a year for dilated exam. He has not been told he has retinopathy. 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 PMR--about 15 years ago. Patient underwent colonoscopy on 09/21/2022. Preparation of the colon was fair. -One 6 mm polyp at the ileocecal valve, removed with a hot snare. Resected and retrieved. -One 5 mm polyp in the ascending colon, removed with a hot snare. Resected and retrieved. -Congested mucosa in the descending colon, at the splenic flexure, in the ascending colon and in the cecum. Biopsied. -Diverticulosis in the recto-sigmoid colon, in the sigmoid colon and in the descending colon. -Stool in the rectum, in the sigmoid colon, in the descending colon and at the hepatic flexure. Fluid aspiration performed. -The examined portion of the ileum was normal. Biopsied. Pathology: A. Ileocecal valve polyp, biopsy: -Consistent with fibrolipomatous polyp. -See comment. B. Small bowel, biopsy: -No pathologic change. C. Cecum, biopsy: -Mild melanosis coli. D. Colon, random biopsy: -Mild melanosis coli. E. Ascending colon polyp, biopsy: -Fragments of tubular adenoma. B, C, D & E - No congophilic material identified. Congo red stain with matched control is negative. ADDENDUM C & D. No congophilic material is noted in these biopsies on light and polarized microscopy. Congo Red stain with matched control was used in the evaluation of this case. He was diagnosed with pancreatic insufficiency and was to start pancreatic enzyme replacement. Current therapy: 1) RVd. Cycle #1 began 11/09/2022. 2) Zometa. Presents for ongoing oncologic management. Interim history: Diarrhea resolved once started lenalidomide. Now more constipated. Prior to diarrhea, he had gone about every 2 days. Now every 4 days. No taking pancreatic replacement enzymes. Dr. Quigley prescribed Linzess 145 mg once daily. Hasn't started yet. Took Zofran once. No symptoms of sensory neuorpathy. Continues to have left groin pain. Radiates down the anterior thigh. Can be tender in that area. Family history: DM and HTN. Sister age 65 sudden cardiac event. ROS: Constitutional: Denies episodes of fever and night sweats. Not significantly fatigued. Neuro: Denies HAMILTON, vertigo, dizziness and imbalance. HEENT: No recent change in voice, vision or hearing. Resp: Denies cough, wheeze and hemoptysis. Denies shortness of breath at rest. Denies MACE. CVS: Denies exertional chest pain, PND, orthopnea and LE edema. GI: See above. : Denies dysuria or gross hematuria. Feels he voids to completion for the most part. 1 episode ofnocturia nightly. Endo: Denies hot flashes. Denies polyuria and polydipsia. Denies heat and cold intolerance. Musculoskeletal: Denies bone, back, joint and muscular pain. Derm: Denies rash. Denies jaundice and diffuse pruritis. Heme: Denies unusual bleeding and unexplained bruising. Psych: Normal mood. PHYSICAL EXAM: Vitals: Blood pressure 133/80, pulse 66, temperature 37 C (98.6 F), weight 90.7 kg (200 lb), SpO2 98 %. Well-appearing and in no acute distress. EYES: Sclerae are anicteric bilaterally. LYMPHATIC: There is no palpable cervical, supraclavicular, axillary or inguinal adenopathy. RESPIRATORY: Inspiratory breath sounds are of normal intensity in all rashid. No rales, wheezes or rhonchi. Expiratory phase is normal. CARDIOVASCULAR: Rhythm is regular. Normal intensity S1/S2. There is no gallop or murmur. ABDOMEN: The abdomen is nondistended. No organomegaly. No tenderness. Extremities: No swelling or edema. SKIN: No jaundice or rash. NEUROLOGIC: human resource intern II-XII are grossly intact. No focal motor weakness. DTRs are symmetric and normal. MUSCULOSKELETAL: There is tenderness in the left groin, over the area of the left greater trochanter and anterior thigh. No muscle swelling. LABS: Component Latest Ref Rng & Units 12/06/2022 WBC 3.70 - 11.00 k/uL 6.43 RBC 4.20 - 6.00 m/uL 4.80 Hemoglobin 13.0 - 17.0 g/dL 13.9 Hematocrit 39.0 - 51.0 % 41.7 MCV 80.0 - 100.0 fL 86.9 MCH 26.0 - 34.0 pg 29.0 MCHC 30.5 - 36.0 g/dL 33.3 RDW-CV 11.5 - 15.0 % 13.7 Platelet Count 150 - 400 k/uL 298 MPV 9.0 - 12.7 fL 10.0 Neut% % 55.5 Abs Neut (ANC) 1.45 - 7.50 k/uL 3.57 Lymph% % 24.9 Abs Lymph 1.00 - 4.00 k/uL 1.60 Morton% % 11.8 Abs Morton <0.87 k/uL 0.76 Eosin% % 6.1 Abs Eosin <0.46 k/uL 0.39 Baso% % 1.4 Abs Baso <0.11 k/uL 0.09 Immature Gran % % 0.3 IMMATURE GRANS (ABS) <0.10 k/uL <0.03 NRBC /100 WBC 0.0 Absolute nRBC <0.01 k/uL <0.01 DTYPE Auto Component Latest Ref Rng & Units 08/08/2022 Albumin 3.37 - 4.23 g/dL 3.88 Alpha 1 Globulin 0.18 - 0.31 g/dL 0.22 Alpha 2 Globulin 0.52 - 0.97 g/dL 0.80 Beta Globulin 0.84 - 1.36 g/dL 1.01 Gamma Globulin 0.70 - 1.44 g/dL 2.19 (H) Interpretation (Prot Electro) No definitive M protein is identified on protein electrophoresis. An M protein is identified on protein electrophoresis. (A) Interpretation Comment for Protein Electrophoresis See separate immunofixation report for characterization of monoclonal gammopathy. M-Protein Location Gamma Fraction 1 M-Protein Location 2 Gamma Fraction 2 M-Protein Concentration <=0.00 g/dL 1.08 (H) SPE Staff Review Reviewed by Sophie Holbrook M.D., Ph.D M-Protein Concentration 2 <=0.00 g/dL 0.59 (H) IgG 700 - 1,600 mg/dL 2,508 (H) IgA 70 - 400 mg/dL 32 (L) IgM 40 - 230 mg/dL 27 (L) [place] Free, Serum 3.3 - 19.4 mg/L 10.4 Lambda Free, Serum 5.7 - 26.3 mg/L 34.5 (H) K/L Ratio, Serum 0.26 - 1.65 0.30 Component Latest Ref Rng & Units 08/10/2022 Albumin %, 24 Hr Urine % 70.41 Alpha 1 Globulin %, 24 Hr Ur % 2.19 Alpha 2 Globulin %, 24 Hr Ur % 3.63 Beta Globulin %, 24 Hr Ur % 7.99 Gamma Globulin %, 24 Hr Ur % 15.78 Interpretation ([id number]) No definitive M protein is identified on protein electrophoresis. An M protein is identified on protein electrophoresis. (A) M Sergio Quant, 24 Hr Urine g/24hr 0.06 M Sergio 2 Quant/24 hours g/24hr 0.01 Staff Review ([id number]) Reviewed by Eugenie Pickens MD Interpretation Comment for Protein Electrophoresis See separate immunofixation report for characterization of monoclonal gammopathy. EKG from [facility] 04/20/2022 demonstrated normal sinus rhythm with left axis deviation and right bundle branch block. PATHOLOGY: Bone marrow biopsy 08/24/2022: A-C. Bone marrow, biopsy core, aspirate clot, touch imprint and aspirate smear: - Plasma cell neoplasm (lambda), representing approximately 20% of bone marrow cellularity. - Cellular (30% excluding plasma cells) bone marrow with trilineage hematopoiesis. - Adequate stainable iron. - See comment. D. Peripheral blood smear: - Unremarkable peripheral blood smear. - See comment. The patient is investigated for M protein characterized as IgG kappa. The abnormal findings in this case consist mainly of a population of monotypic lambda plasma cells representing approximately 20% of total bone marrow cellularity. In conclusion, the findings in this case are diagnostic of a plasma cell neoplasm. Further classification requires correlation with the clinical, laboratory and etiologic findings. Conventional cytogenetic analysis may provide additional relevant information. Other: Examination under polarized light of a [place] red stain performed on this biopsy identifies no evidence of amorphous material with abnormal discoloration (no amyloid). Immunohistochemical stains have been performed on sections of fixed, paraffin-embedded tissue with appropriately staining controls. The stains for CD138, kappa or lambda immunoglobulin light chains highlight the population ofmonotypic lambda plasma cells representing approximately 20% of total cellularity. IMAGING: Whole-body CT 08/11/2022: IMPRESSION: 1. No suspicious lytic lesions are identified. 2. Nonspecific fat stranding in the left lower quadrant mesentery with a focus of soft tissue whichcould represent an enlarged lymph node. The appearance is nonspecific, and the differential based on the appearance includes mesenteric panniculitis and lymphoma, among other etiologies. Management considerations can include PET/CT or short-term follow-up CT abdomen and pelvis in 6 weeks. 3. No acute abnormality in the chest. Scattered pulmonary nodules as large as 5 mm below size criteria for follow-up. 4. Other nonacute and nonaggressive findings as per the body of the report. CT A/P 08/26/2022: Nonspecific mesenteric stranding with probably a single mildly enlarged mesenteric lymph node. These findings are nonspecific. Well-defined upper abdominal mass likely extrahepatic in origin but contiguous to the liver. Considerations include both a complex cyst and a solid mass. Recommend correlation with MR of liver with IV contrast. Small splenic and intrahepatic densities probably benign. Right lower lobe pulmonary nodule. MRI Liver 09/01/2022: IMPRESSION: There is a 3.5 x 3.6 cm benign cyst along the posterior aspect of the left lobe of the liver. Additional 6 mm cyst within segment IVb of the liver. There is a 9 mm enhancing lesion superior margin of the spleen. The appearance of this is nonspecific but could represent hemangioma or other lesions. Follow-up MRI in 6-12 months is recommended to assess for stability. MRI spine and pelvis 10/06/2022: IMPRESSION: Cervical: Moderate degenerative disc disease at C3-C4 causing moderate canal stenosis and severe right neural foraminal stenosis. No pathologic enhancement. No marrow signal abnormality in the cervical spine. Thoracic: Normal MRI thoracic spine without and with contrast. No definite marrow signal abnormality. No abnormal extraosseous soft tissue. No pathologic enhancement. Lumbar: Mild degenerative disc disease at L4-L5. No marrow signal abnormality. No extraosseous soft tissue. No pathologic enhancement. Normal appearance of the conus medullaris and cauda equina. Cervical Anatomic Variant: None. Assume 7 cervical vertebrae with counting from the craniocervical junction. Anatomic Thoracic/Lumbar Variant: None. L4-5 is considered the level of the iliac crest and assume there are 5 lumbar-type vertebrae. IMPRESSION: 1. 2 SMALL ENHANCING MARROW LESIONS DESCRIBED CONCERNING FOR MYELOMA LESIONS GIVEN HISTORY. 2. BILATERAL MODERATE HIP OSTEOARTHRITIS. 3. PARALABRAL OR GANGLION CYST AT THE LEFT THIGH. Bone Marrow: 6 mm T2 hyperintense focus at the LEFT sacral ala with low intrinsic T1 signal and mild homogenous enhancement (29:9). 10 mm T2 hyperintense, T1 hypointense and enhancing focus in the right ischium (29:10). No fractures. ASSESSMENT/PLAN: (C90.00) Multiple myeloma not having achieved remission (HCC) (primary encounter diagnosis) Assessment: -The patient is a 72-year-old male has a past medical history significant for diabetes and chronic diarrhea characterized by one explosive watery stool daily (recently diagnosed with pancreatic insufficiency). Was hospitalized 03/2022 when diarrhea significantly worsened and he was diagnosed with and treated for Campylobacter infection. During that evaluation, was found to have two IgG lambda monoclonal antibodies. He did not have hypercalcemia or anemia but had elevated serum creatinine (which may be related to volume depletion when hospitalized for diarrhea and mental status change). 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 Low to intermediate risk disease (PCs 20%). -Review of lab work from [facility]-serum creatinine 1.45 mg/dL 04/19/2022, 1.27 mg/dL / 1.0 mg/dL 04/21/2022 and 1.29 mg/dL 07/11/2022. -Imaging--no lytic lesions on whole body CT; Liver cyst and splenic nodule (6-12 month f/u MRI recommended). -Bone marrow negative for amyoid. -Colonic biopsies negative for amyloid. -MRI of pelvis revealed two T2 hyperintense foci in the pelvis, one in the left sacral rebeka and onein the right ischium. -The finding of the bone lesions on MRI fulfilled criteria for multiple myeloma. FISH panel revealed (11;14) (q13;q32) (IGH/CCND1) translocation consistent with the presence of a plasma cell neoplasmassociated with standard risk disease. -R-ISS stage I (serum beta microglobulin less than 3.5 mg/L and serum albumin greater than 3.5 g/dL; standard risk disease by FISH testing as outlined above and serum LDH less than upper limit of normal). -He is tolerating VRd very well. Constipation is the only appreciable side effect at this time. He was having chronic diarrhea previously that was attributed to pancreatic insufficiency. -Again reviewed overall plan for 4-6 cycles initially. Autologous stem cell transplant evaluation following cycle 2 or 3 depending on response. -Answered all of his and his family's questions to their satisfaction. Plan: -Okay for cycle #2 tomorrow. -Begin monthly Zometa. -Monthly assessment of serum monoclonal protein. -Referral to [facility] for autologous stem cell transplant evaluation following cycle 2 or 3. -MRI abdomen in 6 months to follow-up on MRI liver findings from 09/01/2022. Supportive care: ID: Plan: -Continue Acyclovir for shingles prophylaxis up to 6 months after stopping bortezomib. Heme: -No anemia. -Reviewed CBC from today. Counts allow continued therapy. Plan: -Monitor counts. Skeletal: -Only lytic lesions observed over those in the pelvic bones on MRI initially. -Symptomatic from the left hip labral cyst presumably. Plan: -Begin monthly Zometa tomorrow. -Plain film x-ray left hip and left femur. -Orthopedic consultation scheduled. DVT prophylaxis: -Low dose ASA since will be on lenalidomide and dexamethasone. Neuro: -No symptoms of sensory neuropathy currently. Portions of this documentation were copied and pasted from previous office visit notes in order to provide a cohesive continuity of the history. The note has been reviewed and edited and updated as necessary. During this patient visit I have spent approximately 25 minutes out of 35 in counseling regarding treatment options, medications, and test results and coordinating care. Connie Mccain DO documented in this encounterFlower [facility]02-[facility]23 Miscellaneous Notes* Telephone Encounter - Karyn Logan RN - 11/23/2022 3:58 PM EST Spoke with patient. Dr Mccain was in to evaluate while here for treatment. Patient had ultrasound of leg completed prior to going home. Antonia Logan RN * Telephone Encounter - Meeta Weinstein RN - 11/23/2022 1:27 PM EST Patient asked that you are advised he has c/o left groin/thigh pain, aching in nature x 5 days. Denies any strenuous activity. Here in infusion room 3 for Day 15 Velcade. documented in this encounterFlower Hospital02-01-2023 Miscellaneous Notes* Telephone Encounter - Betsy Henriquez LPN - 11/23/2022 8:43 AM EST [employer] auth# [id number]. Please send electronically. Betsy Henriquez LPN documented in this encounterFlower Hospital01-26-2023 Miscellaneous Notes* Telephone Encounter - Florence Momin RN - 11/17/2022 2:25 PM EST ORAL ANTI-CANCER AGENTS FOLLOW-UP PHONE CALL/VISIT Patient identified by name and date of . YES Patient is on cycle 1, week 2, day 9 of Lenolidomide (Revlimid) for Multiple Myeloma. SYMPTOM ASSESSMENT Headache: No Visual Changes: No Dizziness: No Do you have any periods of confusion? No Mood changes: No Mouth or throat pain: No Appetite: no changes in appetite, appetite good Taste changes: No Nausea: No Vomiting: No Heartburn: No. Weight gain/loss: No Episodes of palpitations/chest discomfort/pressure/pain No Shortness of breath: No Cough: No Diarrhea: no Constipation: no Bladder/Urinary Changes: None Pain: No=0 (pain 0 on a scale of 0-10). Fever: No Chills: No Cold sensitivity: No Numbness/weakness: No Edema: No Skin changes: Rash, reddened area that kind've itched. used lotion and the reddness and itching resolved. Patient instructed to call if he has another rash, redness, or itching. Patient statedunderstanding. Itching: Yes scalp itched for a couple of days Yellowing of skin or eyes: No Musculoskeletal/joint changes/issues No Bleeding issues: No Activity Level: good Do you need to take naps? Yes 60-90 minutes per day. Does the patient need interventions or same day appointment:No ADDITIONAL FOLLOW UP: The next outreach call is due on: TBD and was scheduled TBD The following lab tests are due: 12/06/2022, CBC/CMP Verified patient is aware of next appointment in the cancer center: Yes. Verified patient verbalized how to correctly refill the oral agent prescription. Yes Does the patient have any financial difficulties affording this medication? No Patient verbalizes understanding of when to seek Medical Attention? YES Patient verbalizes understanding of after-hours and weekend phone number? YES Patient verbalized importance of medication compliance in taking the oral agent as prescribed. Patient instructed to call if unable to comply. Florence Momin RN documented in this encounterFlower Hospital01-19-2023 Miscellaneous Notes* Telephone Encounter - Florence Momin RN - 11/10/2022 10:00 AM EST CYCLE 1/DAY 1 POST TREATMENT CALL Today's date: November 10, 2022 Treatment Regimen: Velcade C1D1 Date: 11/09/2022 Called patient to follow-up on symptom management. Spoke with patients . SYMPTOM ASSESSMENT Neuro: None CV/Resp: None GI/: None Integument: None Activity: Patient reported increased energy level Pain: No=0 (pain 0 on a scale of 0-10). Fever: No Chills: No Reviewed acyclovir, dexamethasone, zofran, and revlimid with . Any new referrals needed? No Reinforced CURRENT treatment education based on current and anticipated symptoms. Discussed port/line care and patient verbalizes understanding: Not Applicable Patient instructed to contact office or after hours Hematology/Oncology fellow for: temperature ? 100.4; questions or concerns. Patient verbalized understanding of when to seek medical attention and after hours number protocol. Florence Momin RN documented in this encounterFlower Hospital01-18-2023 Miscellaneous Notes* Telephone Encounter - Isabel Murphy - 11/09/2022 8:18 AM EST Zometa added to schedule. Patient aware. Isabel Murphy * Telephone Encounter - Connie Mccain DO - 11/08/2022 5:06 PM EST Received dental clearance form. Patient scheduled for 2 fillings on 11/28. He may begin Zometa on 12/07. Connie Mccain DO documented in this encounterFlower Hospital01-13-2023 Miscellaneous Notes* Telephone Encounter - Betsy Henriquez LPN - 11/04/2022 11:13 AM EST Patient is aware to begin Revlimid and dexamethasone on that day as well. Betsy Henriquez LPN * Telephone Encounter - Isabel Murphy - 11/04/2022 10:15 AM EST Spoke with patient's and scheduled. Isabel Murphy * Telephone Encounter - Connie Mccain DO - 11/02/2022 4:59 PM EST Begin Velcade when able. CBC/CMP days 1, 8 and 15. OV/CBC/CMP/Myeloma labs for cycle #2. Connie Mccain DO * Telephone Encounter - Betsy Henriquez LPN - 11/02/2022 3:26 PM EST Patient instructed to call our office once he has a delivery date for Revlimid so Velcade and labs can be scheduled. Patient's contacted office- Revlimid will be delivered tomorrow. Patient received a dom to help with co-pay cost. Please advise on scheduling labs and velcade. Betsy Henriquez LPN documented in this encounterFlower Hospital01-09-2023 Miscellaneous Notes* Telephone Encounter - Terri Polanco LPN - 10/31/2022 8:33 AM EST Left detailed message on 's cell phone with instructions. Also instructed to contact office to confirm message received, . Terri Polanco LPN * Telephone Encounter - Connie Mccain DO - 10/28/2022 4:33 PM EST He can start aspirin when he starts Revlimid. Okay to get COVID booster and influenza vaccine. The preferred staging system for multiple myeloma is the revised international staging system (R-ISS). He has stage I disease by that criteria which is very good and I'll be happy to go into more detail with that at his next OV. Connie Mccain DO * Telephone Encounter - Florence Momin RN - 10/28/2022 1:59 PM EST Completed chemo edu today on Velcade and Revlimid. Patient instructed to call our office once he has a delivery date for Revlimid so Velcade and labs can be scheduled. Questions: Should patient start ASA 81 mg? Can patient get a covid booster and flu shot now? Patient had questions regarding his multiple myeloma and stage. Per daughter, this was discussed in patients OV on Monday however patient had more questions regarding this. Daughter stated they are happy to discuss again at patients next OV. Florence Momin RN documented in this encounterFlower Hospital01-06-2023 Nurse Note* Florence Momin RN - 10/28/2022 2:28 PM EST This visit was completed via telephone. Florence Momin RN * Florence Momin RN - 10/28/2022 2:26 PM EST ONCOLOGY PATIENT EDUCATION NOTE TOPIC: Chemotherapy, Medications: Velcade READINESS TO LEARN: COGNITIVE ABILITY: Alert and oriented MOTIVATION TO LEARN: Interested FAMILY SUPPORT: High - Very involved in pt care INSTRUCTION PROVIDED TO: Patient INSTRUCTION PROVIDED BY: Nurse Coordinator PATIENT LEARNS BEST BY: Multiple Methods FACTORS AFFECTING LEARNING: None PHYSICAL LIMITATIONS AFFECTING LEARNING: None LEARNING RESPONSE DIAGNOSIS: Multiple Myeloma METHOD OF INSTRUCTION: Individual instruction Written instruction - handouts Verbal instruction PATIENT/FAMILY RESPONSE: Verbalizes understanding of: CHEMOTHERAPY-Regimen, toxicity and side effects FOLLOW UP PLAN: Patient instructed to call with any further issues Recommend - Recommend continued instruction and follow up as directed Follow up phone call. Contact information given. SUPPLEMENTAL MATERIAL: Written material was provided at this visit with the following information: - Chemotherapy education was provided by a pharmacist NO - Side effect management information was provided/discussed including but not limited to: abdominaldiscomfort, anemia, appetite changes, arthralgia, bowel habit changes, diet, electrolyte disturbances, fatigue, hypersensitivity reaction, infection, mouth hygiene, mucositis, myalgia, nausea/vomitting, neuropathy, neutropenia, peripheral neuropathy, rash, shortness of breath, skin changes, taste changes, thrombocytopenia YES - Provided important phone numbers and contacts during and after hours. YES - Provided information on symptoms that require immediate assistance. YES - Provided Chemotherapy when to call handouts YES - Preventing infection. YES - Treatment schedule and confirmation of appointment times. No. TBD - Available support groups. YES - The importance of contraception during the course of chemotherapy YES - Neutropenic fever protocol discussed with patient, which included the importance of reporting anyfever of 100.4F (38.0C) or greater to the healthcare team as noted on the provided wallet card and/or magnet. YES Time Spent: 90 minutes REFERRAL (RECOMMENDATION): Social Work Florence Momin RN * Florence Momin RN - 10/28/2022 2:25 PM EST Primer Inspector Pre Chemo Patient identified by name and date of . YES Confirmed date and time for chemotherapy ? No, TBD Other appointments (labs, imaging) discussed? YES to be determined after patient receives revlimid. 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 YES--patient instructed to take zofan 1 hour prior to velcade, dexamethasone on days 1,8,15,22 Described the infusion room and what to expect. (What to wear, what to bring [iPad, books] amount of time treatment can take, meals and CC options for food) YES Note: Discussed whether the patient can eat prior to labs and treatment. YES Who is driving you to and from treatment? Spouse or daughter Discussed why it is important to bring someone with you. Yes, for the first treatment Resources discussed (music therapy, Art therapy, pet therapy, etc.) NO Education on chemotherapy (drug, side effects) discussed and that the patient will be receiving a C1D1 call within 7 days of treatment. YES Other topics discussed, interventions needed: Florence Momin RN * Florence Momin RN - 10/28/2022 11:21 AM EST ORAL ANTI-CANCER AGENTS EDUCATION patient called today for oral medication education for Lenolidomide (Revlimid) for Multiple Myeloma READINESS TO LEARN Cognitive Ability: Alert and oriented Motivation to Learn: Interested Family Support: High - Very involved in pt care Instruction Provided to: Patient, Spouse, and Daughter Patient learns best by: Multiple Methods Factors affecting learning: None Physical limitation affecting learning: None MATT ASSESSMENT: 1.) Verified that patient knows that the oral agents are for cancer and are taken by mouth. Yes 2.) Medication reconciliation completed during visit. No 3.) Patient is able to swallow pills. Yes 4.) Patient is able to read the drug label/information. Yes 5.) Patient is able to open the medication bottles and packages. Yes 6.) Has patient taken other pills for cancer? No 7.) Is patient experiencing any symptoms that would affect their ability to keep down pills, for example nausea or vomiting? No 8.) Verified that patient understands prescription delivery, benefit investigation and refill process. Yes PATIENT EDUCATION: 1.) Verified that patient attended individualized instruction on chemotherapy taught by a nurse. Yes 2.) Verified that patient received Chemotherapy Safety in the Home handout, ChemoCare Medication Information handout: revlimid and velcade, Eating Hints Booklet, and ACS Oral Chemotherapy booklet: Yes DRUG-SPECIFIC EDUCATION: 1.) Verified that patient knows the drug name. Yes 2.) Verified patient understands the dose and schedule of oral chemo agent:with water, with or without food. Yes 3.) Verified patient knows what to do if a medication dose is missed. Yes 4.) Verified patient understands where to store the drug. Yes 5.) Verified patient understands potential side effects and how to manage them. Yes Nausea , Diarrhea, Fatigue, and Rash 6.)Verified that patient understands handling precautions of oral chemo agent. Yes 7.) Verified that patient understands when and whom to call with questions. Yes 8.) Verified that patient understands where and how to return drug. Yes EVALUATE: Patient was able to demonstrate an understanding of all the above education using the teach-back method. Yes Patient instructed to call us with any questions, concerns, and/or unresolved symptoms. Will continue to follow up with patient and provide reinforcement of teaching topics as needed. Total time spent with patient: 90 minutes Total time spent on encounter: 110 minutes Florence Momin RN documented in this encounterFlower Hospital01-04-2023 Miscellaneous Notes* Telephone Encounter - Florence Momin RN - 10/26/2022 4:53 PM EST Met with patient and introduced myself. Patient was given a My Journey binder with chemocare information, office contact information, thermometer, and additional chemotherapy resource booklets. Patient aware this nurse will review on scheduled appointment date. Florence Momin RN documented in this encounterFlower Hospital01-04-2023 History of Present illness Narrative* Connie Mccain, - 10/26/2022 3:00 PM EST Oncologic problem(s): 1) IgG lambda smoldering myeloma. HPI: The patient is a 72-year-old male with a past medical history significant for type 2 diabetes,high cholesterol, hypertension and right bundle branch block. Patient originally presented to the emergency room at [facility] on 04/19/2022 with new onset of confusion that day which had been worsening. Laboratory work-up significant for hypokalemia. CT of the brain was unremarkable. He was admitted. During hospitalization it was noted that hehad been having diarrhea for 6 to 8 weeks. Stool studies were positive for Campylobacter, blood andlactoferrin. C. difficile was negative. CT of the abdomen pelvis on 04/21/2022 noted abnormal pericholecystic edema without gallstones. Renal cysts and colonic diverticulosis were noted. He was found to have elevation of sed rate to 39, CRP 134. His albumin was 2.3. IgA low at 37. He was discharged on azithromycin, potassium and magnesium supplement. He was seen in the outpatient setting for follow-up visit on 07/11/2022. He continued to have 1 episode of explosive diarrhea daily. This had been going on for about 8 months. CBC on 07/11 showed a white count of 6400. Differential was normal. Hemoglobin 14.9 g/dL. Platelet count 275,000. Chemistries significant for creatinine of 1.29 g/dL. Previously 1.13 g/dL on 04/27/2022.Calcium was 9.3 mg/dL. Total bilirubin, AST, ALT and alkaline phosphatase were normal. LDH was 181.C-reactive protein was less than 2.09. Total protein was 8.8 g/dL. Total IgG was 2462 mg/dL. IgA decreased to 28 mg/dL. IgM normal at 32 mg/dL. On protein electrophoresis, patient was found to have 2M spikes both IgG lambda by immunofixation. For spike was quantitated at 1.2 g/dL and the second was quantitated at 0.6 g/dL. Cytoplasmic and perinuclear ANCA both negative. Atypical p-ANCA negative. Patient described diarrhea as loose, eran stools sometimes explosive typically only 1 bowel movement per day however. He had not observed any blood. Had a colonoscopy [address] Arteaga. His appetite was normal. He had not lost weight. Denied reflux and nausea. He did get abdominal bloating associated with the diarrhea. He denied musculoskeletal pain. He denied symptoms of sensory neuropathy. He sees an team supervisor once a year for dilated exam. He has not been told he has retinopathy. 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 PMR--about 15 years ago. Presents for ongoing oncologic management. Interim history: Patient underwent colonoscopy on 09/21/2022. Preparation of the colon was fair. -One 6 mm polyp at the ileocecal valve, removed with a hot snare. Resected and retrieved. -One 5 mm polyp in the ascending colon, removed with a hot snare. Resected and retrieved. -Congested mucosa in the descending colon, at the splenic flexure, in the ascending colon and in the cecum. Biopsied. -Diverticulosis in the recto-sigmoid colon, in the sigmoid colon and in the descending colon. -Stool in the rectum, in the sigmoid colon, in the descending colon and at the hepatic flexure. Fluid aspiration performed. -The examined portion of the ileum was normal. Biopsied. Pathology: A. Ileocecal valve polyp, biopsy: -Consistent with fibrolipomatous polyp. -See comment. B. Small bowel, biopsy: -No pathologic change. C. Cecum, biopsy: -Mild melanosis coli. D. Colon, random biopsy: -Mild melanosis coli. E. Ascending colon polyp, biopsy: -Fragments of tubular adenoma. B, C, D & E - No congophilic material identified. Congo red stain with matched control is negative. ADDENDUM C & D. No congophilic material is noted in these biopsies on light and polarized microscopy. [place] Red stain with matched control was used in the evaluation of this case. MRI spine and pelvis 10/06/2022: IMPRESSION: Cervical: Moderate degenerative disc disease at C3-C4 causing moderate canal stenosis and severe right neural foraminal stenosis. No pathologic enhancement. No marrow signal abnormality in the cervical spine. Thoracic: Normal MRI thoracic spine without and with contrast. No definite marrow signal abnormality. No abnormal extraosseous soft tissue. No pathologic enhancement. Lumbar: Mild degenerative disc disease at L4-L5. No marrow signal abnormality. No extraosseous soft tissue. No pathologic enhancement. Normal appearance of the conus medullaris and cauda equina. Cervical Anatomic Variant: None. Assume 7 cervical vertebrae with counting from the craniocervical junction. Anatomic Thoracic/Lumbar Variant: None. L4-5 is considered the level of the iliac crest and assume there are 5 lumbar-type vertebrae. IMPRESSION: 1. 2 SMALL ENHANCING MARROW LESIONS DESCRIBED CONCERNING FOR MYELOMA LESIONS GIVEN HISTORY. 2. BILATERAL MODERATE HIP OSTEOARTHRITIS. 3. PARALABRAL OR GANGLION CYST AT THE LEFT THIGH. Bone Marrow: 6 mm T2 hyperintense focus at the LEFT sacral ala with low intrinsic T1 signal and mild homogenous enhancement (29:9). 10 mm T2 hyperintense, T1 hypointense and enhancing focus in the right ischium (29:10). No fractures. He was diagnosed with pancreatic insufficiency and is currently waiting on a prescription for pancreatic enzyme replacement. Family history: DM and HTN. Sister age 65 sudden cardiac event. ROS: Constitutional: Denies episodes of fever and night sweats. Not significantly fatigued. Neuro: Denies HAMILTON, vertigo, dizziness and imbalance. HEENT: No recent change in voice, vision or hearing. Resp: Denies cough, wheeze and hemoptysis. Denies shortness of breath at rest. Denies MACE. CVS: Denies exertional chest pain, PND, orthopnea and LE edema. GI: See above. : Denies dysuria or gross hematuria. Feels he voids to completion for the most part. 1 episode ofnocturia nightly. Endo: Denies hot flashes. Denies polyuria and polydipsia. Denies heat and cold intolerance. Musculoskeletal: Denies bone, back, joint and muscular pain. Derm: Denies rash. Denies jaundice and diffuse pruritis. Heme: Denies unusual bleeding and unexplained bruising. Psych: Normal mood. PHYSICAL EXAM: Vitals: Blood pressure 170/100, pulse 67, temperature 36.6 C (97.9 F), temperature source Temporal,weight 92.8 kg (204 lb 8 oz). Well-appearing and in no acute distress. EYES: Sclerae are anicteric bilaterally. LYMPHATIC: There is no palpable cervical, supraclavicular, axillary or inguinal adenopathy. RESPIRATORY: Inspiratory breath sounds are of normal intensity in all rashid. No rales, wheezes or rhonchi. Expiratory phase is normal. CARDIOVASCULAR: Rhythm is regular. Normal intensity S1/S2. There is no gallop or murmur. ABDOMEN: The abdomen is nondistended. No organomegaly. No tenderness. Extremities: No swelling or edema. SKIN: No jaundice or rash. NEUROLOGIC: human resource intern II-XII are grossly intact. No focal motor weakness. DTRs are symmetric and normal. MUSCULOSKELETAL: No muscle wasting. LABS: Component Latest Ref Rng & Units 08/08/2022 08/24/2022 WBC 3.70 - 11.00 k/uL 6.18 5.96 RBC 4.20 - 6.00 m/uL 5.07 4.91 Hemoglobin 13.0 - 17.0 g/dL 14.7 14.2 Hematocrit 39.0 - 51.0 % 44.2 42.7 MCV 80.0 - 100.0 fL 87.2 87.0 MCH 26.0 - 34.0 pg 29.0 28.9 MCHC 30.5 - 36.0 g/dL 33.3 33.3 RDW-CV 11.5 - 15.0 % 12.9 12.8 Platelet Count 150 - 400 k/uL 278 258 MPV 9.0 - 12.7 fL 9.7 9.9 Neut% % 67.5 66.4 Abs Neut (ANC) 1.45 - 7.50 k/uL 4.17 3.96 Lymph% % 21.8 23.8 Abs Lymph 1.00 - 4.00 k/uL 1.35 1.42 Morton% % 8.1 7.6 Abs Morton <0.87 k/uL 0.50 0.45 Eosin% % 1.8 1.7 Abs Eosin <0.46 k/uL 0.11 0.10 Baso% % 0.5 0.3 Abs Baso <0.11 k/uL 0.03 <0.03 Immature Gran % % 0.3 0.2 IMMATURE GRANS (ABS) <0.10 k/uL <0.03 <0.03 NRBC /100 WBC 0.0 0.0 Absolute nRBC <0.01 k/uL <0.01 <0.01 DTYPE Auto Auto Protein, Total 6.3 - 8.0 g/dL 8.3 (H) Albumin 3.9 - 4.9 g/dL 4.5 Calcium 8.5 - 10.2 mg/dL 9.6 Bilirubin, Total 0.2 - 1.3 mg/dL 0.9 Alkaline Phosphatase 38 - 113 U/L 67 AST 14 - 40 U/L 18 ALT 10 - 54 U/L 10 Glucose 74 - 99 mg/dL 126 (H) BUN 9 - 24 mg/dL 16 Creatinine 0.73 - 1.22 mg/dL 1.18 Sodium 136 - 144 mmol/L 139 Potassium 3.7 - 5.1 mmol/L 4.1 Chloride 97 - 105 mmol/L 103 CO2 22 - 30 mmol/L 23 Anion Gap 9 - 18 mmol/L 13 eGFR >=60 mL/min/1.73m 66 Uric Acid 4.0 - 8.1 mg/dL 5.4 LD 135 - 225 U/L 217 B2 Microglobulin <3.1 mg/L 2.2 Viscosity, Serum 1.10 - 1.80 cP 1.24 APTT 23.0 - 32.4 sec 24.8 NT Pro BNP <125 pg/mL 98 Troponin T 0.000 - 0.029 ng/mL <0.010 Component Latest Ref Rng & Units 08/08/2022 Albumin 3.37 - 4.23 g/dL 3.88 Alpha 1 Globulin 0.18 - 0.31 g/dL 0.22 Alpha 2 Globulin 0.52 - 0.97 g/dL 0.80 Beta Globulin 0.84 - 1.36 g/dL 1.01 Gamma Globulin 0.70 - 1.44 g/dL 2.19 (H) Interpretation (Prot Electro) No definitive M protein is identified on protein electrophoresis. An M protein is identified on protein electrophoresis. (A) Interpretation Comment for Protein Electrophoresis See separate immunofixation report for characterization of monoclonal gammopathy. M-Protein Location Gamma Fraction 1 M-Protein Location 2 Gamma Fraction 2 M-Protein Concentration <=0.00 g/dL 1.08 (H) SPE Staff Review Reviewed by Sophie Holbrook M.D., Ph.D M-Protein Concentration 2 <=0.00 g/dL 0.59 (H) IgG 700 - 1,600 mg/dL 2,508 (H) IgA 70 - 400 mg/dL 32 (L) IgM 40 - 230 mg/dL 27 (L) [place] Free, Serum 3.3 - 19.4 mg/L 10.4 Lambda Free, Serum 5.7 - 26.3 mg/L 34.5 (H) K/L Ratio, Serum 0.26 - 1.65 0.30 Component Latest Ref Rng & Units 08/10/2022 Albumin %, 24 Hr Urine % 70.41 Alpha 1 Globulin %, 24 Hr Ur % 2.19 Alpha 2 Globulin %, 24 Hr Ur % 3.63 Beta Globulin %, 24 Hr Ur % 7.99 Gamma Globulin %, 24 Hr Ur % 15.78 Interpretation (UEPG24) No definitive M protein is identified on protein electrophoresis. An M protein is identified on protein electrophoresis. (A) M Sergio Quant, 24 Hr Urine g/24hr 0.06 M Sergio 2 Quant/24 hours g/24hr 0.01 Staff Review ([id number]) Reviewed by Eugenie Pickens MD Interpretation Comment for Protein Electrophoresis See separate immunofixation report for characterization of monoclonal gammopathy. EKG from [facility] 04/20/2022 demonstrated normal sinus rhythm with left axis deviation and right bundle branch block. PATHOLOGY: Bone marrow biopsy 08/24/2022: A-C. Bone marrow, biopsy core, aspirate clot, touch imprint and aspirate smear: - Plasma cell neoplasm (lambda), representing approximately 20% of bone marrow cellularity. - Cellular (30% excluding plasma cells) bone marrow with trilineage hematopoiesis. - Adequate stainable iron. - See comment. D. Peripheral blood smear: - Unremarkable peripheral blood smear. - See comment. The patient is investigated for M protein characterized as IgG kappa. The abnormal findings in this case consist mainly of a population of monotypic lambda plasma cells representing approximately 20% of total bone marrow cellularity. In conclusion, the findings in this case are diagnostic of a plasma cell neoplasm. Further classification requires correlation with the clinical, laboratory and etiologic findings. Conventional cytogenetic analysis may provide additional relevant information. Other: Examination under polarized light of a [place] red stain performed on this biopsy identifies no evidence of amorphous material with abnormal discoloration (no amyloid). Immunohistochemical stains have been performed on sections of fixed, paraffin-embedded tissue with appropriately staining controls. The stains for CD138, kappa or lambda immunoglobulin light chains highlight the population ofmonotypic lambda plasma cells representing approximately 20% of total cellularity. IMAGING: Whole-body CT 08/11/2022: IMPRESSION: 1. No suspicious lytic lesions are identified. 2. Nonspecific fat stranding in the left lower quadrant mesentery with a focus of soft tissue whichcould represent an enlarged lymph node. The appearance is nonspecific, and the differential based on the appearance includes mesenteric panniculitis and lymphoma, among other etiologies. Management considerations can include PET/CT or short-term follow-up CT abdomen and pelvis in 6 weeks. 3. No acute abnormality in the chest. Scattered pulmonary nodules as large as 5 mm below size criteria for follow-up. 4. Other nonacute and nonaggressive findings as per the body of the report. CT A/P 08/26/2022: Nonspecific mesenteric stranding with probably a single mildly enlarged mesenteric lymph node. These findings are nonspecific. Well-defined upper abdominal mass likely extrahepatic in origin but contiguous to the liver. Considerations include both a complex cyst and a solid mass. Recommend correlation with MR of liver with IV contrast. Small splenic and intrahepatic densities probably benign. Right lower lobe pulmonary nodule. MRI Liver 09/01/2022: IMPRESSION: There is a 3.5 x 3.6 cm benign cyst along the posterior aspect of the left lobe of the liver. Additional 6 mm cyst within segment IVb of the liver. There is a 9 mm enhancing lesion superior margin of the spleen. The appearance of this is nonspecific but could represent hemangioma or other lesions. Follow-up MRI in 6-12 months is recommended to assess for stability. ASSESSMENT/PLAN: (C90.00) Multiple myeloma not having achieved remission (HCC) (primary encounter diagnosis) Assessment: -The patient is a 72-year-old male has a past medical history significant for diabetes and chronic diarrhea characterized by one explosive watery stool daily. Was hospitalized 03/2022 when diarrhea significantly worsened and he was diagnosed with and treated for Campylobacter infection. During that evaluation, was found to have two IgG lambda monoclonal antibodies. He did not have hypercalcemia oranemia but had elevated serum creatinine (which may be related to volume depletion when hospitalized for diarrhea and mental status change). 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 Low to intermediate risk disease (PCs 20%). -Review of lab work from [facility]-serum creatinine 1.45 mg/dL 04/19/2022, 1.27 mg/dL / 1.0 mg/dL 04/21/2022 and 1.29 mg/dL 07/11/2022. -Imaging--no lytic lesions on whole body CT; Liver cyst and splenic nodule (6-12 month f/u MRI recommended). -Bone marrow negative for amyoid. -Colonic biopsies negative for amyloid. -However MRI of pelvis revealed two T2 hyperintense foci in the pelvis, one in the left sacral allaand one in the right ischium. -The finding of the bone lesions on MRI fulfills criteria for multiple myeloma. FISH panel revealed(11;14) (q13;q32) (IGH/CCND1) translocation consistent with the presence of a plasma cell neoplasm associated with standard risk disease. -R-ISS stage I (serum beta microglobulin less than 3.5 mg/L and serum albumin greater than 3.5 g/dL; standard risk disease by FISH testing as outlined above and serum LDH less than upper limit of normal). -Chronic diarrhea---may be due to pancreatic insufficiency. -I had an in-depth discussion with the patient and his family today regarding the diagnosis of multiple myeloma based on the findings from the MRI. I recommended treatment with VRd with the potentialfor autologous stem cell transplant following the first 4-6 cycles of therapy. I discussed the rationale, logistics, potential risks (including but not limited to cytopenias, neuropathy, GI side effects of nausea and vomiting, rash and infectious complications in the very small potential for due to complications from treatment), benefits and alternatives, as well as the personnel involved in the administration of bortezomib, lenalidomide and dexamethasone. I answered his questions in detail and he verbalized understanding and agreed with the recommended therapy. Please see the electronic consent document for details of doses and schedule. -Also discussed bone health issues and the use of bisphosphonate therapy. -Answered all of his and his family's questions to their satisfaction. Plan: -Check vitamin D today. -Provided him with dental clearance form. -Begin monthly Zometa once has dental clearance. -Begin therapy once he receives prescription for lenalidomide. -Monthly assessment of serum monoclonal protein. -Referral to [facility] for autologous stem cell transplant evaluation following cycle 1 or 2. -MRI abdomen in 6 months to follow-up on MRI liver findings from 09/01/2022. Supportive care: ID--Rx Acyclovir. Heme--Monitor counts. Skeletal--Check vit D and get dental evaluation to begin monthly Zometa. DVT prophylaxis: Low dose ASA since will be on lenalidomide and dexamethasone. Portions of this documentation were copied and pasted from previous office visit notes in order to provide a cohesive continuity of the history. The note has been reviewed and edited and updated as necessary. I spent 60 minutes in the visit, with more than 50% of the total [id number] time of the visit in reviewing test results, plan of care and coordination of care Connie Mccain DO documented in this encounterF[facility]12-[facility] History of Present illness Narrative* Ayesha Powell RT(R) - 10/06/2022 8:40 AM EST Radiology Service Progress Note DATE OF SERVICE: October 06, 2022 TIME: 8:43 AM PATIENT IDENTITY VERIFICATION COMPLETED USING TWO (2) STANDARD IDENTIFIERS: Name and Date of confirmed by patient verbally. FALL SCREENING: Has the patient had 2 falls in the last year or 1 fall with injury or currently using an Ambulatory Assistive Device (Walker, Cane, Wheelchair, Crutches, etc.)? No PATIENT GENDER DATA: Male PATIENT RELEVANT IMPLANT DATA REVIEWED: Yes ALLERGIES: Reviewed and unchanged CONTRAST ALLERGY: NO. EXAM: MRI - CONTRAST TYPE: GROUP II PERIPHERAL IV DATA: Ambulatory: A peripheral IV was started in the Right antecubital site with a Angio cath: 22 gauge. RADIOLOGY DEPARTMENT: MR; Exam(s) Completed: Lower MSK: Pelvis, bilateral Spine: Cervical spine, Thoracic spine, and Lumbar spine SIGNATURE: RT Cruz(R) PATIENT NAME: Oseas Joseph DATE: October 06, 2022 TIME: 8:43 AM documented in this encounterFlower Hospital11-21-2022 Miscellaneous Notes* Telephone Encounter - Isabel Murphy - 09/12/2022 8:38 AM EST Spoke with patient and scheduled. Isabel Murphy * Telephone Encounter - Terri Polanco LPN - 09/12/2022 8:20 AM EST Spoke with pt. , Dr. Mccain ran his case by one of the myeloma specialist at [facility] who agreed with all the work-up thus far but suggested I also obtain MRI of the spine and pelvis for the sake of thoroughness. I placed all the orders. Please schedule him for these MRIs when able. Pt. Voiced understanding. Terri Polanco LPN * Telephone Encounter - Connie Mccain DO - 09/09/2022 4:23 PM EST Can let him know that I ran his case by one of the myeloma specialist at [facility] who agreed with all the work-up thus far but suggested I also obtain MRI of the spine and pelvis for the sake of thoroughness. I placed all the orders. Please schedule him for these MRIs when able. Connie Mccain DO documented in this encounterFlower Hospital11-10-2022 Miscellaneous Notes* Telephone Encounter - Terri Polanco LPN - 09/01/2022 2:07 PM EST Left message on voicemail to check his my chart for Dr. Mccain response to his MRI. If questions he can contact office. Spoke with and informed of results, and instructed she needs to have pt. Look at his my chart message, Terri Polanco LPN * Telephone Encounter - Connie Mccain DO - 09/01/2022 1:22 PM EST Good news. Can let him know the MRI of the liver demonstrated the abnormality is a benign cyst. There was an incidental note of a small nodule at the top of his spleen which statistically is likely to be benign. No further imaging or work-up needed for that at this time. We will repeat the MRI in about 6 months. Connie Mccain DO documented in this encounterFlower Hospital11-10-2022 History of Present illness Narrative* Raquel Nina, RT(R) - 09/01/2022 11:15 AM EST Radiology Service Progress Note DATE OF SERVICE: September 01, 2022 TIME: 11:03 AM PATIENT IDENTITY VERIFICATION COMPLETED USING TWO (2) STANDARD IDENTIFIERS: Name and Date of confirmed by patient verbally. FALL SCREENING: Has the patient had 2 falls in the last year or 1 fall with injury or currently using an Ambulatory Assistive Device (Walker, Cane, Wheelchair, Crutches, etc.)? No PATIENT GENDER DATA: Male PATIENT RELEVANT IMPLANT DATA REVIEWED: Yes ALLERGIES: Reviewed and unchanged CONTRAST ALLERGY: NO. EXAM: MRI - CONTRAST TYPE: GROUP I OR GROUP III RISK FACTORS: History of Diabetes Mellitus History of hypertension requiring medical therapy CREATININE: Creatinine Date Value Ref Range Status 08/24/2022 1.09 0.73 - 1.22 mg/dL Final 08/08/2022 1.18 0.73 - 1.22 mg/dL Final Estimated Glomerular Filtration Rate Date Value Ref Range Status 08/24/2022 73 >=60 mL/min/1.73m Final Comment: Estimated Glomerular Filtration Rate (eGFR) is calculated using the 2020 CKD-EPI creatinine equation. This equation utilizes serum creatinine, sex, and age as parameters. The creatinine assay has traceable calibration to isotope dilution- mass spectrometry. Refer to KDIGO guidelines for clinical interpretation. In patients with unstable renal function, e.g. those with acute kidney injury, the eGFRmay not accurately reflect actual GFR. P.O.C.T. RESULTS: N/A September 01, 2022 TREATMENT: N/A PERIPHERAL IV DATA: Ambulatory: A peripheral IV was started in the Right antecubital site with a Angio cath: 22 gauge. RADIOLOGY DEPARTMENT: MR; Exam(s) Completed: Body: Liver (routine) SIGNATURE: Raquel Nina RDMS, RONNIE PATIENT NAME: Oseas Joseph DATE: September 01, 2022 TIME: 11:03 AM documented in this encounterFlower Hospital11-08-2022 Miscellaneous Notes* Telephone Encounter - Eugenie Zhu - 08/30/2022 11:27 AM EST Spoke with patient/spouse and scheduled. * Telephone Encounter - Betsy Henriquez LPN - 08/30/2022 8:33 AM EST Patient and aware of all information. PSS- please contact patient to schedule MRI as directed. Betsy Henriquez LPN * Telephone Encounter - Connie Mccain DO - 08/30/2022 6:03 AM EST Can let him know the CT of the abdomen pelvis suggests that the changes observed on the first CT may be from an inflammatory condition possibly related to the diarrhea. However, there appeared to be a cyst on your right beside the liver that needs further characterization with an MRI. Please schedule him for that as soon as able. I will discuss with him all the findings in further detail tomorrowat OV. Connie Mccain DO documented in this encounterFlower Hospital11-03-2022 Miscellaneous Notes* Telephone Encounter - Connie Mccain DO - 08/25/2022 2:12 PM EDT Orders filed. Connie Mccain DO * Telephone Encounter - Isabel Henry RN - 08/25/2022 11:[address] Mccain, Pt coming in tomorrow for hydration prior to CT. Please place orders. Thank you. documented in this encounterFlower Hospital11-03-2022 History of Past illness Narrative* Problem Noted Date Diagnosed Date Resolved Date Smoldering myeloma 08/25/2022 3 Pancytopenia 08/24/2023 Overview: Pancytopenia 2/2 chemotherapy. Plan: -Transfuse LR/IR blood products to maintain hgb > 7 g/dL and plts > 10 k/uL. Neupogen per protocol. 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 Plan: -Transfuse LR/IR blood products to maintain hgb > 7 g/dL and plts > 10 k/uL. Neupogen per protocol. 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 Plan: -Transfuse LR/IR blood products to maintain hgb > 7 g/dL and plts > 10 k/uL. Neupogen per protocol. 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 Plan: -Transfuse LR/IR blood products to maintain hgb > 7 g/dL and plts > 10 k/uL. Neupogen per protocol. documented as of this encounter (statuses as of 08/28/2023) [facility] Miscellaneous Notes* Telephone Encounter - Isabel Murphy - 08/18/2022 3:29 PM EDT Spoke with patient and and scheduled Lab, CT w/ Hydration. Isabel Murphy * Telephone Encounter - Betsy Henriquez LPN - 08/16/2022 9:46 AM EDT Patient and aware of all information. PSS- please reach out to patient/ to schedule as directed below. Betsy Henriquez LPN * Telephone Encounter - Betsy Henriquez LPN - 08/15/2022 3:51 PM EDT Message left on patient's VM asking that he contact the office for results and scheduling. Betsy Henriquez LPN * Telephone Encounter - Connie Mccain DO - 08/15/2022 2:25 PM EDT Can let him know the whole-body CT showed no evidence of lytic bone lesion which is very good. There was some inflammation of the fatty tissue in the lower left abdomen along with some nodularity. This may represent resolving diverticulitis or other inflammation. I would like to schedule him for a stat BMP and CT abdomen pelvis with a 1 hour hydration a day or 2 before I see him for office visit in August. Connie Mccain DO documented in this encounterFlower Hospital10-18-2022 History of Present illness Narrative* José Dee RT(R) - 08/09/2022 2:15 PM EDT Radiology Service Progress Note PATIENT NAME: Oseas Joseph DATE OF SERVICE: August 09, 2022 TIME: 2:11 PM PATIENT IDENTITY VERIFICATION COMPLETED USING TWO (2) IDENTIFIERS: Name and Date of confirmedby patient verbally. FALL SCREENING: Has the patient had 2 falls in the last year or 1 fall with injury or currently using an Ambulatory Assistive Device (Walker, Cane, Wheelchair, Crutches, etc.)? No PATIENT GENDER DATA: Male PATIENT RELEVANT IMPLANT DATA REVIEWED: Yes RADIOLOGY DEPARTMENT: CT; Exam(s) Completed: . WHOLE BODY SKULL TO KNEES PERIPHERAL IV DATA: Not applicable SIGNED BY: RT Itzel(R) August 09, 2022 2:11 PM documented in this encounterFlower Hospital10-17-2022 Miscellaneous Notes* Telephone Encounter - Andre Love - 08/08/2022 4:06 PM EDT Scheduled. * Telephone Encounter - Isabel Murphy - 08/08/2022 12:36 PM EDT BMBX IN [facility] W/ DR. MCCAIN ON 08/24/22 @ 1:00 PM/CBC/PBSX2/SPECIMEN TO [facility]* documented in this encounterFlower Hospital10-17-2022 History of Present illness Narrative* RT Lee(R) - 08/08/2022 1:00 PM EDT Radiology Service Progress Note PATIENT NAME: Oseas Joseph DATE OF SERVICE: August 08, 2022 TIME: 12:57 PM PATIENT IDENTITY VERIFICATION COMPLETED USING TWO (2) IDENTIFIERS: Name and Date of confirmedby patient verbally. FALL SCREENING: Has the patient had 2 falls in the last year or 1 fall with injury or currently using an Ambulatory Assistive Device (Walker, Cane, Wheelchair, Crutches, etc.)? 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 The impression and plan will be communicated by way of the shared electronic record or faxed under separate cover letter. HPI: The patient is a 72-year-old male with a past medical history significant for type 2 diabetes,high cholesterol, hypertension and right bundle branch block. Patient originally presented to the emergency room at [facility] on 04/19/2022 with new onset of confusion that day which had been worsening. Laboratory work-up significant for hypokalemia. CT of the brain was unremarkable. He was admitted. During hospitalization it was noted that hehad been having diarrhea for 6 to 8 weeks. Stool studies were positive for Campylobacter, blood andlactoferrin. C. difficile was negative. CT of the abdomen pelvis on 04/21/2022 noted abnormal pericholecystic edema without gallstones. Renal cysts and colonic diverticulosis were noted. He was found to have elevation of sed rate to 39, CRP 134. His albumin was 2.3. IgA low at 37. He was discharged on azithromycin, potassium and magnesium supplement. He was seen in the outpatient setting for follow-up visit on 07/11/2022. He continued to have 1 episode of explosive diarrhea daily. This has been going on for about 8 months. Patient describes diarrhea as loose, eran stools sometimes explosive typically only 1 bowel movement per day however. He has not observed any blood. Had a colonoscopy last December by Dr. Hay. Hisappetite is normal. He has not lost weight. Denies reflux and nausea. He does get abdominal bloating associated with the diarrhea. He denies musculoskeletal pain. He denies symptoms of sensory neuropathy. He sees an team supervisor once a year for dilated exam. He has not been told he has retinopathy. 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 PMR--about 15 years ago. PAST MEDICAL HISTORY Diagnosis Date Chronic diarrhea Diabetes mellitus (HCC) Essential hypertension Mixed hyperlipidemia PAST SURGICAL HISTORY Procedure Laterality Date REPAIR INCISIONAL HERNIA,REDUCIBLE 8th grade SKIN BX, 1 LESION 06/2022 ALLERGIES No Known Allergies Current Outpatient Medications Medication Sig clonazePAM (KLONOPIN) 0.5 mg tablet 0.5 mg once daily. glimepiride (AMARYL) 2 mg tablet 2 mg once daily. amLODIPine (NORVASC) 5 mg tablet 5 mg once daily. atorvastatin (LIPITOR) 10 mg tablet 10 mg once daily. losartan (COZAAR) 50 mg tablet 50 mg once daily. metFORMIN ER (GLUCOPHAGE XR) 500 mg 24 hr tablet (Patient not taking: Reported on 08/08/2022) No current facility-administered medications for this visit. Social History Tobacco Use Smoking status: Never Smokeless tobacco: Never Vaping Use Vaping Use: Never used Substance Use Topics Alcohol use: Yes Comment: social Drug use: Never Family history: DM and HTN. Sister age 65 sudden cardiac event. ROS: Constitutional: Denies episodes of fever and night sweats. Not significantly fatigued. Normal appetite. Neuro: Denies HAMILTON, vertigo, dizziness and imbalance. HEENT: No recent change in voice, vision or hearing. Resp: Denies cough, wheeze and hemoptysis. Denies shortness of breath at rest. Denies MACE. CVS: Denies exertional chest pain, PND, orthopnea and LE edema. GI: See above. : Denies dysuria or gross hematuria. Feels he voids to completion for the most part. 1 episode ofnocturia nightly. Endo: Denies hot flashes. Denies polyuria and polydipsia. Denies heat and cold intolerance. Musculoskeletal: Denies bone, back, joint and muscular pain. Derm: Denies rash. Denies jaundice and diffuse pruritis. Heme: Denies unusual bleeding and unexplained bruising. Psych: Normal mood. PHYSICAL EXAM: Vitals: Blood pressure 197/97, pulse 67, temperature 36.7 C (98.1 F), height 183.7 cm (6' 0.34), weight 90 kg (198 lb 8 oz), SpO2 99 %. Well-appearing and in no acute distress. EYES: Sclerae are anicteric bilaterally. ENT: Oral mucosa is unremarkable. There is no sign of thrush or mucositis. LYMPHATIC: There is no palpable cervical, supraclavicular, axillary or inguinal adenopathy. RESPIRATORY: Inspiratory breath sounds are of normal intensity in all rashid. No rales, wheezes or rhonchi. Expiratory phase is normal. CARDIOVASCULAR: Rhythm is regular. Normal intensity S1/S2. There is no gallop or murmur. ABDOMEN: The abdomen is nondistended. No organomegaly. No tenderness. Extremities: No swelling or edema. SKIN: No jaundice or rash. NEUROLOGIC: human resource intern II-XII are grossly intact. No focal motor weakness. DTRs are symmetric and normal. MUSCULOSKELETAL: No muscle wasting. LABS: CBC on 07/11 showed a white count of 6400. Differential was normal. Hemoglobin 14.9 g/dL. Platelet count 275,000. Chemistries significant for creatinine of 1.29 g/dL. Previously 1.13 g/dL on 04/27/2022.Calcium was 9.3 mg/dL. Total bilirubin, AST, ALT and alkaline phosphatase were normal. LDH was 181.C-reactive protein was less than 2.09. Total protein was 8.8 g/dL. Total IgG was 2462 mg/dL. IgA decreased to 28 mg/dL. IgM normal at 32 mg/dL. On protein electrophoresis, patient was found to have 2M spikes both IgG lambda by immunofixation. For spike was quantitated at 1.2 g/dL and the second was quantitated at 0.6 g/dL. Cytoplasmic and perinuclear ANCA both negative. Atypical p-ANCA negative. EKG from [facility] 04/20/2022 demonstrated normal sinus rhythm with left axis deviation and right bundle branch block. 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 He does not have hypercalcemia, anemia but has elevated serum creatinine (which may be related to volume depletion when hospitalized for diarrhea and mental status change). He has chronic otherwise unexplained diarrhea and because of the lambda light chain, full work-up for plasma cell dyscrasia/amyloidosis warranted. I discussed the spectrum of plasma cell disorders with the patient and his family. Hisbrother who is a family practitioner was present for the discussion as well. Answered all of the pat ient's and family's questions to their satisfaction. Plan: -Labs today including CBC, chemistry panel, serum protein electrophoresis and immunofixation, 24-hour urine collection for electrophoresis and immunofixation, LDH, beta-2 microglobulin, serum viscosity, coagulation times, BNP, troponin as well as whole-body bone survey. -Whole-body low-dose CT scan. -Bone marrow biopsy including stains for amyloid. -May need nephrology consultation pending results of today's creatinine. -Likely will need repeat colonoscopy with multiple biopsies to assess for possible colonic amyloidosis. I spent a total of 60 minutes on the date of the service which included preparing to see the patient, [id number] patient care, completing clinical documentation, obtaining and/or reviewing separately obtained history, performing a medically appropriate examination, counseling and educating the pat ient/family/caregiver, ordering medications, tests, or procedures, independently interpreting results (not separately reported), communicating results to the patient/family/caregiver, and care coordination (not separately reported). Connie Mccain DO documented [facility] noteNo assessment information availableWAkron Children's [facility] Work Phone: Evaluation note* Diagnosis Onset Date Resolution Status Acute hypokalemia acute Brain TIA acute Confusion acute Hypokalemia acute RBBB acute Renal insufficiency acute [facility] Work Phone: Evaluation note* Diagnosis Onset Date Resolution Status Acute hypokalemia resolved Brain TIA resolved Confusion resolved Renal insufficiency resolved [facility] Work Phone: Evaluation note* Diagnosis Onset Date Resolution Status Acute hypokalemia resolved Brain TIA resolved Confusion resolved Renal insufficiency resolved Diarrhea acute [facility] Work Phone: Evaluation note* Diagnosis Monoclonal gammopathy- Primary Monoclonal paraproteinemia Multiple myeloma not having achieved remission (HCC) Multiple myeloma, without mention of having achieved remission Secondary systemic amyloidosis (HCC) Other amyloidosis Dyspnea and respiratory abnormalities Other dyspnea and respiratory abnormality Monoclonal gammopathy 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) Other amyloidosis Multiple myeloma not having achieved remission (HCC) Multiple myeloma, without mention of having achieved remission documented in this encounter [facility] note* Diagnosis Monoclonal gammopathy- Primary 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) Other amyloidosis Multiple myeloma not having achieved remission (HCC) Multiple myeloma, without mention of having achieved remission Monoclonal gammopathy 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) Other amyloidosis Multiple myeloma not having achieved remission (HCC) Multiple myeloma, without mention of having achieved remission documented in this encounter [facility] note* Diagnosis Multiple myeloma not having achieved remission (HCC) Multiple myeloma, without mention of having achieved remission Monoclonal gammopathy 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) Other amyloidosis Monoclonal gammopathy 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) Other amyloidosis Multiple myeloma not having achieved remission (HCC) Multiple myeloma, without mention of having achieved remission [facility] Ab[facility] CT [facility], pelvis- Primary Nonspecific (abnormal) findings on radiological and other examination of abdominal area, including retroperitoneum Abnormal CT of the abdomen Nonspecific (abnormal) findings on radiological and other examination of abdominal area, including retroperitoneum Monoclonal gammopathy 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) Other amyloidosis Multiple myeloma not having achieved remission (HCC) Multiple myeloma, without mention of having achieved remission [facility] IgG lambda monoclonal gammopathy [facility] Diagnosis IgG lambda monoclonal gammopathy- Primary [facility] Diagnosis Liver mass- Primary Unspecified disorder of liver Abnormal CT of the abdomen Nonspecific (abnormal) findings on radiological and other examination of abdominal area, including retroperitoneum [facility] Diagnosis Liver mass Unspecified disorder of liver Abnormal CT of the abdomen Nonspecific (abnormal) findings on radiological and other examination of abdominal area, including retroperitoneum [facility] Diagnosis Smoldering myeloma- Primary Multiple myeloma, without mention of having achieved remission [facility] Diagnosis Onset Date Resolution Status Diarrhea chronic Gammopathy, monoclonal acute Diarrhea [facility] Work Phone: Evaluation note* Diagnosis Encounter for education- Primary Counseling NOS [facility] Diagnosis Multiple myeloma not having achieved remission (HCC)- Primary Multiple myeloma, without mention of having achieved remission Vitamin D deficiency Unspecified vitamin D deficiency [facility] Diagnosis Multiple myeloma not having achieved remission (HCC)- Primary Multiple myeloma, without mention of having achieved remission [facility] Diagnosis Multiple myeloma not having achieved remission (HCC)- Primary Multiple myeloma, without mention of having achieved remission Vitamin D deficiency Unspecified vitamin D deficiency [facility] Diagnosis Multiple myeloma not having achieved remission (HCC)- Primary Multiple myeloma, without mention of having achieved remission [facility] Diagnosis Multiple myeloma not having achieved remission (HCC)- Primary Multiple myeloma, without mention of having achieved remission Leg swelling Swelling of limb [facility] Diagnosis Multiple myeloma not having achieved remission (HCC)- Primary Multiple myeloma, without mention of having achieved remission Hip pain, left Pain in joint, pelvic region and thigh Paralabral cyst of left hip [facility] Diagnosis Onset Date Resolution Status Gammopathy, monoclonal acute Diarrhea chronic Constipation chronic Exocrine pancreatic insufficiency chronic [facility] Work Phone: Evaluation note* Diagnosis Multiple myeloma not having achieved remission (HCC)- Primary Multiple myeloma, without mention of having achieved remission [facility] Diagnosis Pain in left hip- Primary Pain in joint, pelvic region and thigh Primary osteoarthritis of both hips Primary localized osteoarthrosis, pelvic region and thigh Ganglion cyst Ganglion, unspecified [facility] Multiple myeloma not having achieved remission (HCC)- Primary Multiple myeloma, without mention of having achieved remission [facility] Multiple myeloma not having achieved remission (HCC)- Primary Multiple myeloma, without mention of having achieved remission [facility] Examination of participant in clinical trial- Primary [facility] Diagnosis Multiple myeloma not having achieved remission (HCC)- Primary Multiple myeloma, without mention of having achieved remission [facility] Onset Date Resolution Status Constipation chronic Exocrine pancreatic insufficiency chronic Bilateral pulmonary embolism acute Chest pain acute Hx of multiple myeloma acute Thrombocytopenia acute [facility] Work Phone: Evaluation note* Diagnosis Multiple myeloma not having achieved remission (HCC)- Primary Multiple myeloma, without mention of having achieved remission [facility] Diagnosis Multiple myeloma not having achieved remission (HCC)- Primary Multiple myeloma, without mention of having achieved remission Acute 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 acute cor pulmonale, unspecified pulmonary embolism type (HCC) [facility] Onset Date Resolution Status Constipation chronic Exocrine pancreatic insufficiency chronic Bilateral pulmonary embolism acute Hx of multiple myeloma acute Thrombocytopenia acute [facility] Work Phone: Evaluation note* Diagnosis Multiple myeloma not having achieved remission (HCC)- Primary Multiple myeloma, without mention of having achieved remission [facility] myeloma not having achieved remission (HCC)- Primary Multiple myeloma, without mention of having achieved remission [facility] Diagnosis Multiple myeloma not having achieved remission (HCC)- Primary Multiple myeloma, without mention of having achieved remission [facility] Diagnosis Multiple myeloma not having achieved remission (HCC)- Primary Multiple myeloma, without mention of having achieved remission Acute 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 acute cor pulmonale, unspecified pulmonary embolism type (HCC) Encounter for education Counseling NOS Disorder involving thrombocytopenia (HCC) [facility] Multiple myeloma not having achieved remission (HCC)- Primary Multiple myeloma, without mention of having achieved remission Acute 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 acute cor pulmonale, unspecified pulmonary embolism type (HCC) Disorder involving thrombocytopenia (HCC) [facility] Diagnosis Multiple myeloma not having achieved remission (HCC)- Primary Multiple myeloma, without mention of having achieved remission [facility] Diagnosis Multiple myeloma not having achieved remission (HCC)- Primary Multiple myeloma, without mention of having achieved remission Disorder involving thrombocytopenia (HCC) [facility] Diagnosis Multiple myeloma not having achieved remission (HCC)- Primary Multiple myeloma, without mention of having achieved remission [facility] Diagnosis Multiple myeloma not having achieved remission (HCC)- Primary Multiple myeloma, without mention of having achieved remission Multiple myeloma not having achieved remission (HCC) Multiple myeloma, without mention of having achieved remission Pre-transplant evaluation for stem cell transplant Other specified pre-operative examination [facility] Diagnosis Multiple myeloma not having achieved remission (HCC)- Primary Multiple myeloma, without mention of having achieved remission Multiple myeloma not having achieved remission (HCC) Multiple myeloma, without mention of having achieved remission Pre-transplant evaluation for stem cell transplant Other specified pre-operative examination [facility] Diagnosis Shortness of breath- Primary Multiple myeloma not having achieved remission (HCC)- Primary Multiple myeloma, without mention of having achieved remission Other hyperlipidemia Primary hypertension Unspecified essential hypertension Type 2 diabetes mellitus without complication, without long-term current use of insulin (HCC) Right bundle branch block Multiple myeloma not having achieved remission (HCC) Multiple myeloma, without mention of having achieved remission Pre-transplant evaluation for stem cell transplant Other specified pre-operative examination [facility] Multiple myeloma not having achieved remission (HCC) Multiple myeloma, without mention of having achieved remission Pre-transplant evaluation for stem cell transplant Other specified pre-operative examination Multiple myeloma not having achieved remission (HCC) Multiple myeloma, without mention of having achieved remission Pre-transplant evaluation for stem cell transplant Other specified pre-operative examination [facility] Diagnosis Multiple myeloma not having achieved remission (HCC)- Primary Multiple myeloma, without mention of having achieved remission Multiple myeloma not having achieved remission (HCC) Multiple myeloma, without mention of having achieved remission Pre-transplant evaluation for stem cell transplant Other specified pre-operative examination [facility] Multiple myeloma not having achieved remission (HCC)- Primary Multiple myeloma, without mention of having achieved remission Other hyperlipidemia Primary hypertension Unspecified essential hypertension Type 2 diabetes mellitus without complication, without long-term current use of insulin (HCC) Insomnia, unspecified type Blurred vision Other specified visual disturbances Multiple myeloma not having achieved remission (HCC) Multiple myeloma, without mention of having achieved remission Pre-transplant evaluation for stem cell transplant Other specified pre-operative examination [facility] Multiple myeloma not having achieved remission (HCC) Multiple myeloma, without mention of having achieved remission Pre-transplant evaluation for stem cell transplant Other specified pre-operative examination Multiple myeloma not having achieved remission (HCC) Multiple myeloma, without mention of having achieved remission Pre-transplant evaluation for stem cell transplant Other specified pre-operative examination [facility] Diagnosis Multiple myeloma not having achieved remission (HCC)- Primary Multiple myeloma, without mention of having achieved remission Multiple myeloma not having achieved remission (HCC) Multiple myeloma, without mention of having achieved remission Pre-transplant evaluation for stem cell transplant Other specified pre-operative examination [facility] Diagnosis Multiple myeloma not having achieved remission (HCC)- Primary Multiple myeloma, without mention of having achieved remission Multiple myeloma not having achieved remission (HCC) Multiple myeloma, without mention of having achieved remission Pre-transplant evaluation for stem cell transplant Other specified pre-operative examination [facility] Diagnosis Multiple myeloma not having achieved remission (HCC)- Primary Multiple myeloma, without mention of having achieved remission Multiple myeloma not having achieved remission (HCC) Multiple myeloma, without mention of having achieved remission Pre-transplant evaluation for stem cell transplant Other specified pre-operative examination [facility] Diagnosis Multiple myeloma not having achieved remission (HCC)- Primary Multiple myeloma, without mention of having achieved remission Multiple myeloma not having achieved remission (HCC) Multiple myeloma, without mention of having achieved remission Pre-transplant evaluation for stem cell transplant Other specified pre-operative examination [facility] Diagnosis Multiple myeloma not having achieved remission (HCC)- Primary Multiple myeloma, without mention of having achieved remission Multiple myeloma not having achieved remission (HCC) Multiple myeloma, without mention of having achieved remission Pre-transplant evaluation for stem cell transplant Other specified pre-operative examination [facility] Diagnosis Multiple myeloma not having achieved remission (HCC) Multiple myeloma, without mention of having achieved remission Pre-transplant evaluation for stem cell transplant Other specified pre-operative examination Multiple myeloma not having achieved remission (HCC) Multiple myeloma, without mention of having achieved remission Pre-transplant evaluation for stem cell transplant Other specified pre-operative examination [facility] Diagnosis Multiple myeloma in remission (HCC)- Primary Multiple myeloma in remission Pre-transplant evaluation for stem cell transplant Other specified pre-operative examination Type 2 diabetes mellitus without complication, without long-term current use of insulin (HCC) Acute 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 acute cor pulmonale, unspecified pulmonary embolism type (HCC) Multiple myeloma not having achieved remission (HCC) Multiple myeloma, without mention of having achieved remission Pre-transplant evaluation for stem cell transplant Other specified pre-operative examination [facility] Diagnosis Multiple myeloma not having achieved remission (HCC)- Primary Multiple myeloma, without mention of having achieved remission Multiple myeloma not having achieved remission (HCC) Multiple myeloma, without mention of having achieved remission Pre-transplant evaluation for stem cell transplant Other specified pre-operative examination [facility] Diagnosis Multiple myeloma not having achieved remission (HCC)- Primary Multiple myeloma, without mention of having achieved remission [facility] Diagnosis Multiple myeloma not having achieved remission (HCC)- Primary Multiple myeloma, without mention of having achieved remission Other intra-abdominal and pelvic swelling, mass and lump [facility] Diagnosis Multiple myeloma not having achieved remission (HCC)- Primary Multiple myeloma, without mention of having achieved remission [facility] Diagnosis Personal history of diseases of blood and blood-forming organs- Primary Multiple myeloma not having achieved remission (HCC) Multiple myeloma, without mention of having achieved remission [facility] Diagnosis Personal history of diseases of blood and blood-forming organs- Primary Multiple myeloma not having achieved remission (HCC) Multiple myeloma, without mention of having achieved remission [facility] Diagnosis Multiple myeloma not having achieved remission (HCC)- Primary Multiple myeloma, without mention of having achieved remission Type 2 diabetes mellitus without complication, without long-term current use of insulin (HCC) [facility] Multiple myeloma not having achieved remission (HCC)- Primary Multiple myeloma, without mention of having achieved remission [facility] Diagnosis Non-recurrent bilateral inguinal hernia without obstruction or gangrene- Primary Spermatocele of epididymis, unspecified [facility]* Diagnosis Screening for genitourinary condition Screening for other and unspecified genitourinary condition [facility] Diagnosis History of autologous stem cell transplant (HCC)- Primary Peripheral stem cells replaced by transplant Multiple myeloma in remission (HCC) Multiple myeloma in remission Need for vaccination Need for prophylactic vaccination and inoculation against unspecified single disease [facility] Diagnosis Multiple myeloma not having achieved remission (HCC)- Primary Multiple myeloma, without mention of having achieved remission Examination of participant in clinical trial [facility] Diagnosis Multiple myeloma not having achieved remission (HCC) Multiple myeloma, without mention of having achieved remission Examination of participant in clinical trial [facility] Diagnosis Multiple myeloma not having achieved remission (HCC)- Primary Multiple myeloma, without mention of having achieved remission [facility] Diagnosis Multiple myeloma not having achieved remission (HCC)- Primary Multiple myeloma, without mention of having achieved remission Examination of participant in clinical trial [facility] Diagnosis Multiple myeloma not having achieved remission (HCC)- Primary Multiple myeloma, without mention of having achieved remission Examination of participant in clinical trial [facility] Diagnosis Smoldering myeloma Multiple myeloma, without mention of having achieved remission [facility] Diagnosis Smoldering myeloma Multiple myeloma, without mention of having achieved remission [facility] Diagnosis Multiple myeloma not having achieved remission (HCC) Multiple myeloma, without mention of having achieved remission Hip pain, left Pain in joint, pelvic region and thigh Paralabral cyst of left hip [facility]* Diagnosis Multiple myeloma not having achieved remission (HCC) Multiple myeloma, without mention of having achieved remission Monoclonal gammopathy 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) Other amyloidosis [facility]* Diagnosis Examination of participant in clinical trial- Primary Multiple myeloma not having achieved remission (HCC) Multiple myeloma, without mention of having achieved remission [facility] Diagnosis Multiple myeloma not having achieved remission (HCC)- Primary Multiple myeloma, without mention of having achieved remission [facility] Diagnosis Examination of participant in clinical trial- Primary [facility]* Diagnosis Right thigh pain- Primary Pain in limb Muscle pain Mylagia and myositis, unspecified [facility]* Diagnosis Examination of participant in clinical trial- Primary Multiple myeloma not having achieved remission (HCC) Multiple myeloma, without mention of having achieved remission [facility]* Diagnosis Multiple myeloma not having achieved remission (HCC)- Primary Multiple myeloma, without mention of having achieved remission [facility]* Diagnosis Multiple myeloma not having achieved remission (HCC)- Primary Multiple myeloma, without mention of having achieved remission Chronic 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 acute cor pulmonale, unspecified pulmonary embolism type (HCC) Right thigh pain Pain in limb [facility]* Diagnosis Pancytopenia due to antineoplastic chemotherapy (HCC) (HCC)- Primary Antineoplastic chemotherapy induced pancytopenia Multiple myeloma not having achieved remission (HCC) Multiple myeloma, without mention of having achieved remission [facility] Diagnosis Examination of participant in clinical trial- Primary [facility]* Diagnosis Femoral neuropathy of right lower extremity- Primary Right thigh pain Pain in limb Muscle pain Mylagia and myositis, unspecified Weakness of right lower extremity [facility] Diagnosis Need for vaccination- Primary Need for prophylactic vaccination and inoculation against unspecified single disease History of autologous stem cell transplant (HCC) Peripheral stem cells replaced by transplant Multiple myeloma in remission (HCC) Multiple myeloma in remission documented in this encounter [facility]* Diagnosis Right thigh pain Pain in limb Muscle pain Mylagia and myositis, unspecified Weakness of right lower extremity Femoral neuropathy of right lower extremity [facility] Diagnosis Multiple myeloma not having achieved remission (HCC)- Primary Multiple myeloma, without mention of having achieved remission [facility] Diagnosis Multiple myeloma not having achieved remission (HCC)- Primary Multiple myeloma, without mention of having achieved remission Pancytopenia due to antineoplastic chemotherapy (HCC) Antineoplastic chemotherapy induced pancytopenia Thrombocytopenia, unspecified (HCC) Thrombocytopenia, unspecified documented in this encounter [facility] note* Diagnosis Multiple myeloma not having achieved remission (HCC)- Primary Multiple myeloma, without mention of having achieved remission [facility] Examination of participant in clinical trial- Primary documented in this encounter [facility]* Diagnosis Onset Date Resolution Status Acidosis, lactic acute Confusion acute Hx of multiple myeloma acute Influenza A acute Neutropenia acute Pancytopenia acute [facility] Work Phone: Evaluation note* Diagnosis Onset Date Resolution Status Acidosis, lactic acute Adverse drug reaction acute Confusion acute Diarrhea acute Hx of multiple myeloma acute Hypoglycemia acute Hypokalemia acute Influenza A acute Metabolic encephalopathy acu te Neutropenia acute Neutropenic fever acute Pancytopenia acute [facility] Work Phone: Evaluation note* Diagnosis Multiple myeloma not having achieved remission (HCC)- Primary Multiple myeloma, without mention of having achieved remission Examination of participant in clinical trial Chronic 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 acute cor pulmonale, unspecified pulmonary embolism type (HCC) Right thigh pain Pain in limb Campylobacter enteritis Intestinal infection due to campylobacter [facility] Diagnosis Multiple myeloma not having achieved remission (HCC)- Primary Multiple myeloma, without mention of having achieved remission [facility] Examination of participant in clinical trial- Primary [facility]* Diagnosis Multiple myeloma not having achieved remission (HCC)- Primary Multiple myeloma, without mention of having achieved remission [facility]* Diagnosis Altered mental status, unspecified altered mental status type- Primary Multiple myeloma not having achieved remission (HCC) Multiple myeloma, without mention of having achieved remission [facility]* Diagnosis Multiple myeloma not having achieved remission (HCC)- Primary Multiple myeloma, without mention of having achieved remission [facility]* Diagnosis Altered mental status, unspecified altered mental status type- Primary Multiple myeloma not having achieved remission (HCC) Multiple myeloma, without mention of having achieved remission [facility]* Diagnosis Examination of participant in clinical trial- Primary [facility]* Diagnosis Campylobacter enteritis- Primary Intestinal infection due to campylobacter History of autologous stem cell transplant (HCC) Peripheral stem cells replaced by transplant Multiple myeloma in remission (HCC) Multiple myeloma in remission Need for vaccination Need for prophylactic vaccination and inoculation against unspecified single disease [facility] Diagnosis Altered mental status, unspecified altered mental status type Multiple myeloma not having achieved remission (HCC) Multiple myeloma, without mention of having achieved remission [facility]* Diagnosis Schwannoma of nerve of head- Primary [facility]* Diagnosis Schwannoma of nerve of head- Primary Multiple myeloma not having achieved remission (HCC) Multiple myeloma, without mention of having achieved remission [facility]* Diagnosis Schwannoma of nerve of head Multiple myeloma not having achieved remission (HCC) Multiple myeloma, without mention of having achieved remission [facility]* Diagnosis Multiple myeloma not having achieved remission (HCC)- Primary Multiple myeloma, without mention of having achieved remission [facility]* Diagnosis Multiple myeloma not having achieved remission (HCC)- Primary Multiple myeloma, without mention of having achieved remission Schwannoma of nerve of head [facility]* Diagnosis Examination of participant in clinical trial- Primary [facility]* Diagnosis 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 Multiple myeloma not having achieved remission (HCC) Multiple myeloma, without mention of having achieved remission [facility]* Diagnosis Multiple myeloma not having achieved remission (HCC)- Primary Multiple myeloma, without mention of having achieved remission [facility]* Diagnosis Examination of participant in clinical trial- Primary [facility]* Diagnosis Need for vaccination- Primary Need for prophylactic vaccination and inoculation against unspecified single disease History of autologous stem cell transplant (HCC) Peripheral stem cells replaced by transplant Multiple myeloma in remission (HCC) Multiple myeloma in remission [facility]* Diagnosis Mild cognitive impairment- Primary Mild cognitive impairment, so stated Altered mental status, unspecified altered mental status type Multiple myeloma not having achieved remission (HCC) Multiple myeloma, without mention of having achieved remission Memory loss [facility]* Diagnosis Multiple myeloma not having achieved remission (HCC)- Primary Multiple myeloma, without mention of having achieved remission Examination of participant in clinical trial [facility]* Diagnosis Multiple myeloma not having achieved remission (HCC)- Primary Multiple myeloma, without mention of having achieved remission [facility]* Diagnosis Multiple myeloma not having achieved remission (HCC)- Primary Multiple myeloma, without mention of having achieved remission [facility]* Diagnosis Multiple myeloma not having achieved remission (HCC)- Primary Multiple myeloma, without mention of having achieved remission [facility]* Diagnosis Multiple myeloma not having achieved remission (HCC)- Primary Multiple myeloma, without mention of having achieved remission Examination of participant in clinical trial [facility]* Diagnosis Multiple myeloma not having achieved remission (HCC) Multiple myeloma, without mention of having achieved remission Examination of participant in clinical trial [facility]* Diagnosis Multiple myeloma not having achieved remission (HCC)- Primary Multiple myeloma, without mention of having achieved remission Examination of participant in clinical trial [facility]* Diagnosis Multiple myeloma not having achieved remission (HCC)- Primary Multiple myeloma, without mention of having achieved remission Examination of participant in clinical trial [facility]* Diagnosis Multiple myeloma not having achieved remission (HCC)- Primary Multiple myeloma, without mention of having achieved remission Examination of participant in clinical trial [facility]* Diagnosis Multiple myeloma not having achieved remission (HCC)- Primary Multiple myeloma, without mention of having achieved remission Chronic pain of both knees Chronic 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 acute cor pulmonale, unspecified pulmonary embolism type (HCC) [facility]* Diagnosis Chronic pain of both knees [facility]* Diagnosis Multiple myeloma not having achieved remission (HCC)- Primary Multiple myeloma, without mention of having achieved remission Examination of participant in clinical trial [facility]* Diagnosis Multiple myeloma not having achieved remission (HCC)- Primary Multiple myeloma, without mention of having achieved remission Examination of participant in clinical trial Other chronic 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 acute cor pulmonale (HCC) Back spasm Other symptoms referable to back [facility]* Diagnosis Multiple myeloma not having achieved remission (HCC)- Primary Multiple myeloma, without mention of having achieved remission [facility]* Diagnosis Multiple myeloma not having achieved remission (HCC)- Primary Multiple myeloma, without mention of having achieved remission Examination of participant in clinical trial [facility]* Diagnosis Multiple myeloma not having achieved remission (HCC) Multiple myeloma, without mention of having achieved remission 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 [facility]* Diagnosis Bilateral hip pain- Primary Pain in joint, pelvic region and thigh [facility]* Diagnosis 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 [facility]* Diagnosis Bilateral hip pain Pain in joint, pelvic region and thigh [facility]* Diagnosis Bilateral hip pain- Primary Pain in joint, pelvic region and thigh 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) Type II or unspecified type diabetes mellitus with neurological manifestations, not stated as uncontrolled Bilateral hip pain Pain in joint, pelvic region and thigh [facility]* Diagnosis Examination of participant in clinical trial- Primary Multiple myeloma not having achieved remission (HCC) Multiple myeloma, without mention of having achieved remission [facility]* Diagnosis Multiple myeloma not having achieved remission (HCC)- Primary Multiple myeloma, without mention of having achieved remission [facility]* Diagnosis Multiple myeloma not having achieved remission (HCC)- Primary Multiple myeloma, without mention of having achieved remission Chronic 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 acute cor pulmonale, unspecified pulmonary embolism type (HCC) [facility]* Diagnosis Memory loss- Primary REM sleep behavior disorder [facility]* Diagnosis Multiple myeloma not having achieved remission (HCC)- Primary Multiple myeloma, without mention of having achieved remission Examination of participant in clinical trial [facility]* Diagnosis Bilateral hip pain- Primary Pain in joint, pelvic region and thigh Primary osteoarthritis of both hips Primary localized osteoarthrosis, pelvic region and thigh [facility]* Diagnosis Memory loss- Primary REM sleep behavior disorder Irritability Impaired insight Mild cognitive impairment, so stated [facility]* Diagnosis Multiple myeloma not having achieved remission (HCC)- Primary Multiple myeloma, without mention of having achieved remission [facility]* Diagnosis Multiple myeloma not having achieved remission (HCC)- Primary Multiple myeloma, without mention of having achieved remission [facility]* Diagnosis Multiple myeloma not having achieved remission (HCC)- Primary Multiple myeloma, without mention of having achieved remission Examination of participant in clinical trial Chronic 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 acute cor pulmonale, unspecified pulmonary embolism type (HCC) Primary osteoarthritis of both hips Primary localized osteoarthrosis, pelvic region and thigh [facility]* Diagnosis Mild cognitive impairment- Primary Mild cognitive impairment, so stated Memory loss REM sleep behavior disorder Irritability Impaired insight Mild cognitive impairment, so stated Multiple myeloma not having achieved remission (HCC) Multiple myeloma, without mention of having achieved remission Screening for condition Screening for unspecified condition [facility]* Diagnosis Mild cognitive impairment- Primary Mild cognitive impairment, so stated REM sleep behavior disorder [facility]* Diagnosis Encounter for lumbar puncture- Primary Mild cognitive impairment Mild cognitive impairment, so stated REM sleep behavior disorder [facility]* Diagnosis Multiple myeloma not having achieved remission (HCC)- Primary Multiple myeloma, without mention of having achieved remission Chronic 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 acute cor pulmonale, unspecified pulmonary embolism type (HCC) Examination of participant in clinical trial [facility] Diagnosis Multiple myeloma not having achieved remission (HCC)- Primary Multiple myeloma, without mention of having achieved remission Examination of participant in clinical trial [facility] Diagnosis Mild cognitive impairment- Primary Mild cognitive impairment, so stated 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 Irritability Impaired insight Mild cognitive impairment, so stated Multiple myeloma not having achieved remission (HCC) Multiple myeloma, without mention of having achieved remission [facility]* Diagnosis Mild cognitive impairment- Primary Mild cognitive impairment, so stated 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) [facility]* Diagnosis Multiple myeloma not having achieved remission (HCC)- Primary Multiple myeloma, without mention of having achieved remission Examination of participant in clinical trial [facility] Diagnosis Mild cognitive impairment- Primary Mild cognitive impairment, so stated 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 Irritability Impaired insight Mild cognitive impairment, so stated Multiple myeloma not having achieved remission (HCC) Multiple myeloma, without mention of having achieved remission [facility] Diagnosis Radiculopathy of lumbar region- Primary Thoracic or lumbosacral neuritis or radiculitis, unspecified Radiculopathy of lumbar region Thoracic or lumbosacral neuritis or radiculitis, unspecified [facility] Diagnosis Radiculopathy of lumbar region Thoracic or lumbosacral neuritis or radiculitis, unspecified [facility]* Diagnosis 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) Type II or unspecified type diabetes mellitus with neurological manifestations, not stated as uncontrolled [facility]* Diagnosis Multiple myeloma not having achieved remission (HCC)- Primary Multiple myeloma, without mention of having achieved remission Examination of participant in clinical trial Chronic 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 acute cor pulmonale, unspecified pulmonary embolism type (HCC) KYE (acute kidney injury) Acute kidney failure, unspecified [facility] Multiple myeloma not having achieved remission (HCC)- Primary Multiple myeloma, without mention of having achieved remission Examination of participant in clinical trial [facility]* Diagnosis Lumbar radiculopathy- Primary Thoracic or lumbosacral neuritis or radiculitis, unspecified 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 [facility]* Diagnosis Lumbar radiculopathy- Primary Thoracic or lumbosacral neuritis or radiculitis, unspecified 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, lumbar region Lumbar radiculopathy Thoracic or lumbosacral neuritis or radiculitis, unspecified 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, lumbar region [facility]* Diagnosis Primary osteoarthritis of both hips- Primary Primary localized osteoarthrosis, pelvic region and thigh Multiple myeloma not having achieved remission (HCC) Multiple myeloma, without mention of having achieved remission Weakness of right lower extremity Lumbar radiculopathy Thoracic or lumbosacral neuritis or radiculitis, unspecified 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, lumbar region [facility]* Diagnosis Multiple myeloma not having achieved remission (HCC)- Primary Multiple myeloma, without mention of having achieved remission Chronic 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 acute cor pulmonale, unspecified pulmonary embolism type (HCC) Neurologic gait dysfunction Abnormality of gait Bilateral sciatica Sciatica Weakness of right lower extremity Lumbar radiculopathy Thoracic or lumbosacral neuritis or radiculitis, unspecified 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, lumbar region [facility] Diagnosis Multiple myeloma not having achieved remission (HCC)- Primary Multiple myeloma, without mention of having achieved remission Lumbar radiculopathy Thoracic or lumbosacral neuritis or radiculitis, unspecified 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, lumbar region [facility]* Diagnosis 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 Lumbar radiculopathy Thoracic or lumbosacral neuritis or radiculitis, unspecified 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, lumbar region documented [facility] this encounter [facility]* Diagnosis Multiple myeloma not having achieved remission (HCC)- Primary Multiple myeloma, without mention of having achieved remission Examination of participant in clinical trial Lumbar radiculopathy Thoracic or lumbosacral neuritis or radiculitis, unspecified 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, lumbar region documented [facility] encounter [facility]* Diagnosis 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 Bilateral leg pain Pain in limb Lumbar radiculopathy Thoracic or lumbosacral neuritis or radiculitis, unspecified 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, lumbar region documented [facility] this encounter [facility]* Diagnosis 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)- Primary 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 Irritability Impaired insight Mild cognitive impairment, so stated Multiple myeloma not having achieved remission (HCC) Multiple myeloma, without mention of having achieved remission Lumbar radiculopathy Thoracic or lumbosacral neuritis or radiculitis, unspecified 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 Lumbar radiculopathy Thoracic or lumbosacral neuritis or radiculitis, unspecified 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, lumbar region [facility]* Diagnosis Primary osteoarthritis of right hip- Primary Primary localized osteoarthrosis, pelvic region and thigh Lumbar radiculopathy Thoracic or lumbosacral neuritis or radiculitis, unspecified 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, lumbar region Primary osteoarthritis of right hip Primary localized osteoarthrosis, pelvic region and thigh documented [facility]* Diagnosis Primary osteoarthritis of right hip- Primary Primary localized osteoarthrosis, pelvic region and thigh Preoperative testing Preoperative examination, unspecified History of DVT of lower extremity Personal history of venous thrombosis and embolism Multiple myeloma, without mention of having achieved remission (HCC) Multiple myeloma, without mention of having achieved remission Controlled type 2 diabetes mellitus without complication, without long-term current use of insulin (HCC) Lumbar radiculopathy Thoracic or lumbosacral neuritis or radiculitis, unspecified 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, lumbar region Primary osteoarthritis of right hip Primary localized osteoarthrosis, pelvic region and thigh documented [facility] this encounter [facility]* Diagnosis Mixed hyperlipidemia- Primary Primary hypertension Unspecified essential hypertension Right bundle branch block History of pulmonary embolism Personal history of pulmonary embolism Type 2 diabetes mellitus without complication, without long-term current use of insulin (HCC) Multiple myeloma not having achieved remission (HCC) Multiple myeloma, without mention of having achieved remission Lewy body dementia, unspecified dementia severity, unspecified whether behavioral, psychotic, or mood disturbance or anxiety (HCC) Alzheimer's disease (HCC) Alzheimer's disease Primary osteoarthritis of right hip Primary localized osteoarthrosis, pelvic region and thigh documented [facility] this encounter [facility]* Diagnosis Primary osteoarthritis of right hip Primary localized osteoarthrosis, pelvic region and thigh Preoperative testing Preoperative examination, unspecified Primary osteoarthritis of right hip Primary localized osteoarthrosis, pelvic region and thigh documented in this encounter [facility] note* Diagnosis Right bundle branch block- Primary Mixed hyperlipidemia Primary hypertension Unspecified essential hypertension Other chronic 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 acute cor pulmonale (HCC) Type 2 diabetes mellitus without complication, without long-term current use of insulin (HCC) Lewy body dementia, unspecified dementia severity, unspecified whether behavioral, psychotic, or mood disturbance or anxiety (HCC) Multiple myeloma not having achieved remission (HCC) Multiple myeloma, without mention of having achieved remission Primary osteoarthritis of right hip Primary localized osteoarthrosis, pelvic region and thigh * Assessment & Plan Note - Rosa Elena Coats APRN.CNP - 05/01/2025 1:22 PM EDT Associated Problem(s): Lewy body dementia (HCC) Assessment: Mild per neurology. Compliant on aricept. [facility] with Gilbert Ramirez APRN.CNP (04/14/2025) * Assessment & Plan Note - Rosa Elena Coats APRN.CNP - 05/01/2025 1:21 PM EDT Associated Problem(s): Multiple myeloma not having achieved remission (HCC) Assessment: S/p stem cell transplant two years ago. Follows oncology. Visit (SP) Office with Bright Thao APRN.CNP (05/01/2025) * Assessment & Plan Note - Rosa Elena Coats APRN.CNP - 05/01/2025 1:01 PM EDT Associated Problem(s): Type 2 diabetes mellitus, without long-term current use of insulin (HCC) Assessment: Reports compliance to medication. BS ranging in 150 or less. Hemoglobin A1C (%) Date Value 04/17/2025 6.0 03/10/2023 7.8 * Assessment & Plan Note - Rosa Elena Coats APRN.CNP - 05/01/2025 12:58 PM EDT Associated Problem(s): Chronic 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 acute cor pulmonale (HCC) Assessment: Diagnosed with PE in December 2022 - was on revlimib for multiple myeloma. Last dose 05/15/25 prior to procedure per Oncologist. * Assessment & Plan Note - Rosa Elena Coats APRN.CNP - 05/01/2025 12:56 PM EDT Associated Problem(s): Primary hypertension Assessment: Stable and compliant with medications. Follows with PCP. Last 3 Encounter BP Readings: Date: BP: 05/01/2025 122/56 05/01/2025 118/69 04/17/2025 156/80 * Assessment & Plan Note - Rosa Elena Coats APRN.CNP - 05/01/2025 12:56 PM EDT Associated Problem(s): Mixed hyperlipidemia Assessment: Compliant on statin therapy. Encouraged lifestyle modifications. Body mass index is 23.73 kg/m . * Assessment & Plan Note - Rosa Elena Coats APRN.[employer] - 05/01/2025 12:55 PM EDT Associated Problem(s): Right bundle branch block Assessment: Denies any heart palpitations, edema, chest pain, shortness of breath, syncope, activity intolerance, or dizziness. ECG COMPLETE (04/17/2025 8:41 AM) [facility]* Diagnosis Multiple myeloma not having achieved remission (HCC)- Primary Multiple myeloma, without mention of having achieved remission Examination of participant in clinical trial Chronic 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 acute cor pulmonale, unspecified pulmonary embolism type (HCC) Right bundle branch block- Primary Mixed hyperlipidemia Primary hypertension Unspecified essential hypertension Other chronic 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 acute cor pulmonale (HCC) Type 2 diabetes mellitus without complication, without long-term current use of insulin (HCC) Lewy body dementia, unspecified dementia severity, unspecified whether behavioral, psychotic, or mood disturbance or anxiety (HCC) Multiple myeloma not having achieved remission (HCC) Multiple myeloma, without mention of having achieved remission Primary osteoarthritis of right hip Primary localized osteoarthrosis, pelvic region and thigh [facility]* Diagnosis Right bundle branch block- Primary Mixed hyperlipidemia Primary hypertension Unspecified essential hypertension Other chronic 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 acute cor pulmonale (HCC) Type 2 diabetes mellitus without complication, without long-term current use of insulin (HCC) Lewy body dementia, unspecified dementia severity, unspecified whether behavioral, psychotic, or mood disturbance or anxiety (HCC) Multiple myeloma not having achieved remission (HCC) Multiple myeloma, without mention of having achieved remission Multiple myeloma not having achieved remission (HCC)- Primary Multiple myeloma, without mention of having achieved remission Examination of participant in clinical trial Primary osteoarthritis of right hip Primary localized osteoarthrosis, pelvic region and thigh [facility]* Diagnosis Right bundle branch block- Primary Mixed hyperlipidemia Primary hypertension Unspecified essential hypertension Other chronic 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 acute cor pulmonale (HCC) Type 2 diabetes mellitus without complication, without long-term current use of insulin (HCC) Lewy body dementia, unspecified dementia severity, unspecified whether behavioral, psychotic, or mood disturbance or anxiety (HCC) Multiple myeloma not having achieved remission (HCC) Multiple myeloma, without mention of having achieved remission Pancytopenia due to antineoplastic chemotherapy Antineoplastic chemotherapy induced pancytopenia History of positive antibody on type and screen Other abnormal clinical finding 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 January 16, 2023 2:46pm Note Date/Time January 16, 2023 2:4 6pm [facility] Medical Records Department [address] [place] [address] H&P Exam - Hospitalist 01/16/23 1425 MR#: [id number] Acct: [id number] Name: OSEAS JOSEPH Rep #:[id number] : 1950 72 From: Kezia Ko MD PCP: Dr. Connie Lugo MD Status:ADM I N Location: [place] [address] HPI - General General Date of Admission: 01/16/23 Date of Service: 01/16/23 Chief Complaint: Chest tightness HPI Narrative OSEAS JOSEPH, is a 72 M with a history of multiple myeloma, type 2 diabetesmellitus and hypertension presented to [facility] 01/16/2023 at the urging of his hematology oncology Dr. Mccain due to chest tightness and shortness of breath for 2 weeks. In the ED blood pressure 123/75, heart rate 71, 96% on room air. Platelet count 67 but CBC otherwise unremarkable. D-dimer greater than 20 and extensive pulmonary embolism was found worse in the right hemithorax extending to the distal portion of both the right and left main pulmonary arteries. ED physician spoke with his oncologist who reported with his platelet count he would prefer admission observation on anticoagulation to verify no drop in platelets or bleeding. Hospitalist consulted for admission. Patient seen at bedside with . Reports that over the past month with his infusions for his multiple myeloma he has been getting some chest tightness and shortness of breath on exertion however 2 weeks ago after his treatment it got worse and has worsened to the point where he is short of breath and has chest tightness even walking to his kitchen and back. Denies cough, denies swelling in legs. Reports that they had been swollen after his first infusion 3 weeks ago and he had a venous duplex which was negative. Has slight nasal congestion but feels it is due to the weather. Denied any other complaints. [facility] Medical History Diabetes mellitus High cholesterol History of echocardiogram History of skin cancer HTN (hypertension) Hypokalemia Multiple myeloma Non-smoker Open wound RBBB Restless legs Wears glasses Home Medications amlodipine 5 mg tablet 5 mg PO DAILY blood pressure 02/09/21 [History Last Taken 01/16/23] atorvastatin 10 mg tablet 10 mg PO DAILY cholesterol 02/09/21 [History Last Taken 01/16/23] glimepiride 2 mg tablet 4 mg PO DAILY DM 04/19/22 [History Last Taken 01/16/23] losartan 50 mg tablet 50 mg PO DAILY BP 04/19/22 [History Last Taken 01/16/23] clonazepam 0.5 mg tablet 0.5 mg PO QHS 09/16/22 [History Last Taken 01/15/23] linaclotide 145 mcg capsule (Linzess) 145 mcg PO DAILY #30 caps 12/05/22 [Rx Last Taken 01/16/23] Velade See Rx Instructions .Route .COMPLEX CHEMO 01/16/23 [History Last Taken 01/11/23] acyclovir 400 mg tablet 400 mg PO BID 01/16/23 [History Last Taken 01/16/23 07:00] aspirin 81 mg tablet,delayed release 81 mg PO DAILY 01/16/23 [History Last Taken 01/16/23] dexamethasone 4 mg tablet 40 mg PO WE CHEMO 01/16/23 [History Last Taken 01/11/23] glimepiride 2 mg tablet 2 mg PO DAILY DM 01/16/23 [History Last Taken 01/15/23] lenalidomide 25 mg capsule (Revlimid) 25 mg PO DAILY CHEMO 01/16/23 [History Last Taken 01/16/23] potassium chloride 20 mEq tablet,extended release(part/cryst) 20 meq PO DAILY POTASSIUM 01/16/23 [History Last Taken 01/15/23] Allergy/AdvReac Type Severity Reaction Status Date / Time No Known Allergies Allergy Verified 01/16/23 10:02 Family History Other Diabetes Hypertension Surgical History History of wisdom tooth extraction Hx of hernia repair (~1965) Social History Smoking Status: Never smoker alcohol intake: current alcohol intake frequency: a few times a week Alcohol type: beer substance use type: does not use ROS ROS Narrative General: Denies fever/chills HENT: Denies headache, slight nasal congestion, denies sore throat EYES: Denies changes in vision Resp: Denies cough, shortness of breath on exertion Cardiac: Chest tightness GI: Denies abdominal pain, denies changes in bowel, denies nausea/vomiting : Denies changes in urination Extremity: Denies swelling MSK: Denies weakness Neuro: Denies any numbness/tingling Heme: Denies any bleeding or bruising Skin: Denies rashes Psychiatric: No complaints voiced Vital Signs Vital Signs Vital Signs: 01/16/23 09:59 01/16/23 11:40 01/16/23 11:40 Temperature 97.8 F Temperature Source Temporal Pulse Rate 88 76 Respiratory Rate 14 21 H Respiratory Effort Respiratory Depth Respiratory Pattern Blood Pressure 127/84 H 152/73 H Blood Pressure Mean 98 99 Pulse Ox 96 95 Oxygen Delivery Method Room Air Room Air Room Air Oxygen Flow Rate (L/min) 95 01/16/23 11:40 01/16/23 14:03 Temperature 97.9 F Temperature Source Temporal Pulse Rate 70 Respiratory Rate 18 Respiratory Effort Short of Breath Respiratory Depth Normal Respiratory Pattern Normal Blood Pressure 126/77 H Blood Pressure Mean 93 Pulse Ox 98 Oxygen Delivery Method Room Air Room Air Oxygen Flow Rate (L/min) Weight Weight: 89.358 kg Body Mass Index (BMI) 26.7 Physical Exam Narrative General: Alert, oriented, no apparent distress HEENT: Atraumatic, normocephalic Eyes: Anicteric, normal conjunctiva, extraocular movements grossly intact Neck: Supple Respiratory: Slightly coarse very right base compared to left, normal respiratory effort at rest, slight increased work of breathing when moving around Cardiovascular: Regular rate and rhythm GI: Soft, nontender, nondistended Extremities: No edema Musculoskeletal: Moving all extremities Neuro: No overt focal neurological deficits Skin: No rashes appreciated Psych: Cooperative Results Lab / Micro Data Result Diagrams: 01/16/23 10:40 01/16/23 10:40 Labs: Laboratory Results - last 24 hr 01/16/23 10:40: WBC 7.9, RBC 4.74, Hgb 13.8, Hct 41.4, MCV 87.3, MCH 29.1, MCHC 33.3, RDW Std Deviation 47.7 H, RDW Coeff of John 15.2 H, Plt Count 67 L, MPV 12.5 H, Immature Gran % (Auto) 1.100 H, Neut % (Auto) 70.4 H, Lymph % (Auto) 15.2L, Morton % (Auto) 9.5, Eos % (Auto) 3.3, Baso % (Auto) 0.5, Absolute Neuts (auto)5.5, Absolute Lymphs (auto) 1.20, Nucleated RBC % 0, Differential Comment SCANNED, Platelet Estimate MKD 01/16/23 10:40: D-Dimer Quant (PE/DVT) > 20.00 H* 01/16/23 10:40: Sodium 136, Potassium 4.2, Chloride 109 H, Carbon Dioxide 23.0, Anion Gap 4 L, BUN 19 H, Creatinine 1.29, Estim Creat Clear Calc 58.48, Est GFR (MDRD) Af Amer 71, Est GFR (MDRD) Non-Af 58 L, BUN/Creatinine Ratio 14.7, Glucose 245 H, Calcium 8.6, Troponin I High Sens 63 Rhythm Strip Rhythm Strip: Sinus Rhythm Rate: 82 Radiology Impression Chest X-Ray 01/16/23 10:28 IMPRESSION: No acute abnormality is seen. Electronically Signed: Glen Mg MD at 11:31 EDT , Chest CTA 01/16/23 12:20 IMPRESSION: Extensive home embolism as described worse in the right hemithorax. The pulmonary embolism extends into the distal portions of both the right and left main pulmonary arteries. 1.9 cm cyst in the lateral aspect of the left kidney. N.B. : The above Results were Read Back by Glen Mg MD to Oseas Kerr MD, and understanding confirmed on 01/16/2023 13:21:07 (ET). Electronically Signed: Glen Mg MD at 13:22 EDT , ADDENDUM: 01/16/23 1329 IMPRESSION: Extensive home embolism as described worse in the right hemithorax. The pulmonary embolism extends into the distal portions of both the right and left main pulmonary arteries. 1.9 cm cyst in the lateral aspect of the left kidney. N.B. : The above Results were Read Back by Glen Mg MD to Oseas Kerr MD, and understanding confirmed on 01/16/2023 13:21:07 (ET). Electronically Signed: Glen Mg MD at 13:22 EDT , Assessment & Plan Assessment/Plan (1) Bilateral pulmonary embolism: PLAN: Plan #Bilateral pulmonary embolism/thrombocytopenia -EKG on arrival showed left axis deviation with a right bundle branch block and normal sinus rhythm but was similar to EKG in March 2022 -Discussed with Dr. Mccain, thrombocytopenia presumed to be due to his treatmentshe is getting for his multiple myeloma -No recent prolonged immobility, no smoking -No symptoms at rest but has significant symptoms upon movement -Discussed with Dr. Mccain, will start heparin drip with bolus and evaluate CBC in the a.m. -If platelets above 55 and no bleeding can DC on Eliquis -We will monitor in PCU and also obtain echocardiogram to assess for any right heart strain -Obtain COVID -Hypercoagulability work-up ordered as well #Type 2 diabetes mellitus -Hold glimepiride -Glucose checks and sliding scale insulin #Multiple myeloma -Follows with Dr. Mccain on an outpatient basis #CKD stage III unclear subtype -Slightly decreased GFR, no KYE at present, will monitor and recheck in the a.m. #DVT ppx: Full dose heparin Kezia Ko MD Time spent in the patient's overall evaluation,decision-making process, review of diagnostic data, adjustment of management, discussion with other providers, nursing nursing and ancillary staff involved in patient's care documentation, 60minutes Charges/Coding Visit Charges Inpatient E&M: 34747 Init Hosp L2 01/16/23 1446 <Electronically signed by Kezia Ko MD> Cosigner Signature (if applicable): CC: Dr. Kezia Ko MD; Dr. Connie Lugo MD~ Signed [facility] Work Phone: Reason for referral (narrative)* Diagnostic Procedure Only (Routine) - Closed Specialty Diagnoses / Procedures Referred By Contac t Referred To Contact XR IMAGING Diagnoses Multiple myeloma not having achieved remission (HCC) Monoclonal gammopathy Secondary systemic amyloidosis (HCC) Procedures XR BONE SURVEY ROUTINE RADIOLOGIC EXAMINATION OSSEOUS SURVEY COMPL Connie Mccain DO [address] [facility] [place] [address] Xr Imaging Referral ID Status Reason Start Date Expiration Date V isits Requested Visits Authorized [id number] Closed Auto-Generate d Referral 08/08/2022 09/07/2023 1 1 [facility] [place] for referral (narrative)* Outpatient Procedure (Urgent) - Closed Specialty Diagnoses / Procedures Referred By Contac t Referred To Contact [facility] Diagnoses Multiple myeloma not having achieved remission (HCC) Leg swelling Procedures US LEG VEIN DVT UNL VAS LAB DUP-SCAN XTR VEINS UNILATERAL/LIMITED STUDY Connie Mccain DO [address] [facility] [place] [address] [facility] [address] [place] [address] Referral ID Status Reason Start Date Expiration Date V isits Requested Visits Authorized [id number] Closed Auto-Generated Referral Patient Cleared - INN Insurance Found 11/23/2022 11/23/2023 1 1 [facility] [place] for referral (narrative)* Diagnostic Procedure Only (Routine) - Closed Specialty Diagnoses / Procedures Referred By Contac t Referred To Contact XR IMAGING Diagnoses Multiple myeloma not having achieved remission (HCC) Hip pain, left Paralabral cyst of left hip Procedures XR FEMUR GENERAL 2V AP/LAT LEFT RADIOLOGIC EXAMINATION FEMUR MINIMUM 2 VIEWS Connie Mccain, DO [address] [place] [address] Xr Imaging Referral ID Status Reason Start Date Expiration Date V isits Requested Visits Authorized [id number] Closed Auto-Generate d Referral 12/06/2022 01/05/2024 1 1 * Diagnostic Procedure Only (Routine) - Closed Specialty Diagnoses / Procedures Referred By Contac t Referred To Contact XR IMAGING Diagnoses Multiple myeloma not having achieved remission (HCC) Hip pain, left Paralabral cyst of left hip Procedures XR HIP GENERAL 3V PELV/AP/LAT LEFT RADEX HIP UNILATERAL WITH PELVIS 2-3 VIEWS Connie Mccain, [address] [place] [address] Xr Imaging Referral ID Status Reason Start Date Expiration Date V isits Requested Visits Authorized [id number] Closed Auto-Generate d Referral 12/06/2022 01/05/[address] [facility] for referral (narrative)* Diagnostic Procedure Only (Routine) - Pending Review Specialty Diagnoses / Procedures Referred By Contac t Referred To Contact US IMAGING Diagnoses Multiple myeloma not having achieved remission (HCC) Other intra-abdominal and pelvic swelling, mass and lump Procedures US PELVIS LTD US PELVIC NONOBSTETRIC IMAGE DCMTN LIMITED/F/U Tesfaye Reveles, TWYLA.[employer] [address] [place] [address] Us Imaging Referral ID Status Reason Start Date Expiration Date Visits Requested Visits Authorized [id number] Pending Review Auto-Generat ed Referral 05/17/2023 06/15/2024 1 1 * Diagnostic Procedure Only (Routine) - Closed Specialty Diagnoses / Procedures Referred By Contac t Referred To Contact US IMAGING Diagnoses Multiple myeloma not having achieved remission (HCC) Other intra-abdominal and pelvic swelling, mass and lump Procedures US SCROTUM AND CONTENTS US SCROTUM & CONTENTS Tesfaye Reveles APRN.[employer] [address] [place] [address] Us Imaging Referral ID Status Reason Start Date Expiration Date V isits Requested Visits Authorized [id number] Closed Auto-Generate d Referral 05/17/2023 06/15/2024 1 1 * Diagnostic Procedure Only (Routine) - Closed Specialty Diagnoses / Procedures [facility] Diagnoses Multiple myeloma not having achieved remission (HCC) Other intra-abdominal and pelvic swelling, mass and lump Procedures US ABDOMEN LTD US ABDOMINAL REAL TIME W/IMAGE LIMITED Tesfaye Reveles APRN.PATTERNMAKER APPRENTICE WOOD [address] [place] [id number] Us Imaging Referral ID Status Reason Start Date Expiration Date V isits Requested Visits Authorized [id number] Closed Auto-Generate d Referral 05/17/2023 06/15/2024 1 1 [facility] [place] for referral (narrative)* Diagnostic Procedure Only (Routine) - Closed Specialty Diagnoses / Procedures [facility] To Contact XR IMAGING Diagnoses Multiple myeloma not having achieved remission (HCC) Hip pain, left Paralabral cyst of left hip Procedures XR FEMUR GENERAL 2V AP/LAT LEFT RADIOLOGIC EXAMINATION FEMUR MINIMUM 2 VIEWS Connie Mccain DO [address] [place] [address] [place] [id number] Referral ID Status Reason Start Date Expiration Date V isits Requested Visits Authorized [id number] Closed Auto-Generate d Referral 12/06/2022 01/05/2024 1 1 * Diagnostic Procedure Only (Routine) - Closed Specialty Diagnoses / Procedures Referred By Contac t Referred To Contact XR IMAGING Diagnoses Multiple myeloma not having achieved remission (HCC) Hip pain, left Paralabral cyst of left hip Procedures XR HIP GENERAL 3V PELV/AP/LAT LEFT RADEX HIP UNILATERAL WITH PELVIS 2-3 VIEWS Connie Mccain, DO [address] [place] [address] [place] [address] Referral ID Status Reason Start Date Expiration Date V isits Requested Visits Authorized [id number] Closed Auto-Generate d Referral 12/06/2022 01/05/2024 1 1 [facility] [place] for referral (narrative)* Diagnostic Procedure Only (Routine) - Closed Specialty Diagnoses / Procedures Referred By Contac t Referred To Contact XR IMAGING Diagnoses Chronic pain of both knees Procedures XR KNEE LIMITED 2V AP/LAT RIGHT RADIOLOGIC EXAMINATION KNEE 1/2 VIEWS Connie Mccain, DO [address] [place] [address] [place] [address] Referral ID Status Reason Start Date Expiration Date V isits Requested Visits Authorized [id number] Closed Auto-Generate d Referral 08/22/2024 09/21/2025 1 1 * Diagnostic Procedure Only (Routine) - Closed Specialty Diagnoses / Procedures Referred By Contac t Referred To Contact XR IMAGING Diagnoses Chronic pain of both knees Procedures XR KNEE LIMITED 2V AP/LAT LEFT RADIOLOGIC EXAMINATION KNEE 1/2 VIEWS Connie Mccain, DO [address] [place] [address] [place] [address] Referral ID Status Reason Start Date Expiration Date V isits Requested Visits Authorized [id number] Closed Auto-Generate d Referral 08/22/2024 09/21/2025 1 1 [facility] [place] for referral (narrative)* Diagnostic Procedure Only (Routine) - Closed Specialty Diagnoses / Procedures Referred By Contac t Referred To Contact XR IMAGING Diagnoses Bilateral hip pain Procedures XR HIP GENERAL 3V PELV/AP/LAT RIGHT RADEX HIP UNILATERAL WITH PELVIS 2-3 VIEWS Ivet Colin, DO [address] [facility] [address] [place] [address] Referral ID Status Reason Start Date Expiration Date V isits Requested Visits Authorized [id number] Closed Auto-Generate d Referral 10/02/2024 11/01/2025 1 1 * Diagnostic Procedure Only (Routine) - Closed Specialty Diagnoses / Procedures Referred By Contac t Referred To Contact XR IMAGING Diagnoses Bilateral hip pain Procedures XR HIP GENERAL 3V PELV/AP/LAT LEFT RADEX HIP UNILATERAL WITH PELVIS 2-3 VIEWS Ivet Colin DO [address] [facility] [place] [address] [place] [address] Referral ID Status Reason Start Date Expiration Date V isits Requested Visits Authorized [id number] Closed Auto-Generate d Referral 10/02/2024 11/01/2025 1 1 * Outpatient Procedure (Routine) - Authorized Specialty Diagnoses / Procedures Referred By Contac t Referred To Contact [facility] Diagnoses 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) Procedures EMG(NEURO/NI) NERVE CONDUCTION STUDIES 9-10 STUDIES Ivet Colin DO [address] [facility] [address] [facility] [address] [place] [address] Referral ID Status Reason Start Date Expiration Date Visits Requested Visits Authorized [id number] Authorized Auto-Generat ed Referral 10/02/2025 1 1 [facility] [place] for visit Narrative* Diagnostic Procedure Only (Routine) - Closed Specialty Diagnoses / Procedures Referred By Contac t Referred To Contact XR IMAGING Diagnoses Multiple myeloma not having achieved remission (HCC) Monoclonal gammopathy Secondary systemic amyloidosis (HCC) Procedures XR BONE SURVEY ROUTINE RADIOLOGIC EXAMINATION OSSEOUS SURVEY COMPL Connie Mccain, DO [address] [place] [address] Xr Imaging Referral ID Status Reason Start Date Expiration Date V isits Requested Visits Authorized [id number] Closed Auto-Generate d Referral 08/08/2022 09/07/2023 1 1 [facility] [place] for visit Narrative* Diagnostic Procedure Only (Routine) - Closed Specialty Diagnoses / Procedures Referred By Angelac t Referred To Contact XR IMAGING Diagnoses Multiple myeloma not having achieved remission (HCC) Hip pain, left Paralabral cyst of left hip Procedures XR FEMUR GENERAL 2V AP/LAT LEFT RADIOLOGIC EXAMINATION FEMUR MINIMUM 2 VIEWS Connie Mccain, DO [address] [place] [address] Xr Imaging [id number] Referral ID Status Reason Start Date Expiration Date V isits Requested Visits Authorized [id number] Closed Auto-Generate d Referral 12/06/2022 01/05/2024 1 1 [facility] [place] for visit Narrative* Diagnostic Procedure Only (Urgent) - Closed Specialty Diagnoses / Procedures Referred By Alonso t Referred To Contact MOLECULAR & FUNCTIONAL IMAGING Diagnoses Multiple myeloma not having achieved remission (HCC) Procedures NM PET/CT WHOLE BODY SUBSEQUENT PET IMAGING FOR CT ATTENUATION WHOLE BODY Connie Mccain, DO [address] [place] [address] Molecular & Functional Imaging [address] [place] [address] Referral ID Status Reason Start Date Expiration Date V isits Requested Visits Authorized [id number] Closed Auto-Generate d Referral 07/21/2023 08/19/2024 1 1 [facility] [place] for visit Narrative* Diagnostic Procedure Only (Routine) - Closed Specialty Diagnoses / Procedures Referred By Angelac t Referred To Contact XR IMAGING Diagnoses Chronic pain of both knees Procedures XR KNEE LIMITED 2V AP/LAT RIGHT RADIOLOGIC EXAMINATION KNEE 1/2 VIEWS Connie Mccain DO [address] [place] [address] [place] [id number] Referral ID Status Reason Start Date Expiration Date V isits Requested Visits Authorized [id number] Closed Auto-Generate d Referral 08/22/2024 09/21/2025 1 1 [facility] [place] for visit Narrative* MRI/CT (Routine) - Closed Specialty Diagnoses / Procedures Referred By Contac t Referred To Contact MR IMAGING Diagnoses Radiculopathy of lumbar region Procedures MRI LUMBAR SPINE WO IVCON MRI SPINAL CANAL LUMBAR W/O CONTRAST MATERIAL Ivet Colin, DO [address] [place] [address] Phone: tel: fax: MR IMAGING [id number] Referral ID Status Reason Start Date Expiration Date V isits Requested Visits Authorized [id number] Closed Auto-Generate d Referral 02/26/2025 03/28/2026 1 1 [facility] [place] for visit Narrative* Outpatient Procedure (Routine) - Closed Specialty Diagnoses / Procedures Referred By Contac t Referred To Contact [facility] Diagnoses 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) Procedures EMG(NEURO/NI) NERVE CONDUCTION STUDIES 9-10 STUDIES vIet Colin, DO [address] [place] [address] Phone: tel: fax: Neurology [address] [place] [address] Phone: tel: Referral ID Status Reason Start Date Expiration Date V isits Requested Visits Authorized [id number] Closed Auto-Generate d Referral 10/02/2024 10/02/2025 1 1 [facility] [place] for visit Narrative* MRI/CT (Routine) - Closed Specialty Diagnoses / Procedures Referred By Contac t Referred To Contact MR IMAGING Diagnoses Vestibular schwannoma (HCC) Procedures MRI BRAIN WO/W IVCON MRI BRAIN BRAIN STEM W/O W/CONTRAST MATERIAL Geoff Young MD [address] [facility] [place] [address] Phone: tel: fax: [place] [address] Referral ID Status Reason Start Date Expiration Date V isits Requested Visits Authorized [id number] Closed Auto-Generate d Referral 10/08/2024 11/07/2025 [facility] ([facility]ine) - Closed Specialty Diagnoses / Procedures Referred By Contac t Referred To Contact CT IMAGING Diagnoses Primary osteoarthritis of right hip Preoperative testing Procedures CT HIP WO IVCON RIGHT CT LOWER EXTREMITY W/O CONTRAST MATERIAL Nidhi Pat PA-C [address] [place] [address] Phone: tel: fax: [place] [address] Referral ID Status Reason Start Date Expiration Date V isits Requested Visits Authorized [id number] Closed Auto-Generate d Referral 04/16/2025 2026 1 1 [facility] Summary Purpose Family History No Family History Records Found Relationship Condition Age at Onset Recorded Date/T fiordaliza Not Specified Diabetes mellitus Unknown Hypertension Unknown Advance Directives No Advanced Directives Records Found Advance Directive Response Recorded Date/ Time Living Will No April 17, 2022 9:22am Power of Inspector Water Pollution Control No April 17 9:22am Advance Directive Response Recorded Date/ Time Living Will Yes April 19, 2022 4:40pm Power of Inspector Water Pollution Control No April 19 4:40pm Advance Directive Response Recorded Date/ Time Living Will Yes April 19, 2022 6:32pm Power of Inspector Water Pollution Control No April 19 6:32pm Advance Directive Response Recorded Date/ Time Living Will No September 16 022 9:52am Power of Inspector Water Pollution Control No September 16, 2022 9:52am Advance Directive Response Recorded Date/ Time Living Will No December 16 023 4:28pm Power of Inspector Water Pollution Control No December 16, 2022 4:28pm Advance Directive Response Recorded Date/ Time Living Will No December 16 023 5:28pm Power of Inspector Water Pollution Control No December 16, 2022 5:28pm Advance Directive Response Recorded Date/ Time Living Will No January 16, 2023 11:40am Power of Inspector Water Pollution Control No January 16 11:40am Advance Directive Response Recorded Date/ Time Living Will No January 16, 2023 3:57pm Power of Inspector Water Pollution Control No January 16 3:57pm Advance Directive Response Recorded Date/ Time Living Will No November 27 2:54pm Power of Inspector Water Pollution Control No November 27, 2023 2:54pm Advance Directive Response Recorded Date/ Time Living Will No November 27 3:54pm Power of Inspector Water Pollution Control No November 27, 2023 3:54pm Advance Directive Response Recorded Date/ Time Living Will No January 27, 2024 9:49am Power of Inspector Water Pollution Control No January 26 9:49am Advance Directive Response Recorded Date/ Time Living Will No January 31, 2024 5:54pm Power of Inspector Water Pollution Control No January 30 5:54pm Advance Directive Response Recorded Date/ Time Living Will No February 01, 2024 12:06am Power of Inspector Water Pollution Control No January 31 12:06am Documents on File Type Date Recorded 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 Advance Directive(s) 06/03/2024 11:33 AM Documents on File Type Date Recorded 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 Advance Directive(s) 06/03/2024 11:33 AM Chief Complaint and Reason for Visit Chief Complaint WEAKNESS Chief Complaint WEAKNESS CONFUSION, SUSPICION Reason for Visit Acute hypokalemia Brain TIA Confusion Hypokalemia RBBB Renal insufficiency Chief Complaint WEAKNESS CONFUSION, SUSPICION CONFUSION, SUSPICION CONFUSION, SUSPICION CONFUSION, SUSPICION Reason for Visit Acute hypokalemia Brain TIA Confusion Hypokalemia RBBB Renal insufficiency Chief Complaint WEAKNESS CONFUSION, SUSPICION CONFUSION, SUSPICION CONFUSION, SUSPICION CONFUSION, SUSPICION Reason for Visit Acute hypokalemia Brain TIA Confusion Renal insufficiency Chief Complaint WEAKNESS CONFUSION, SUSPICION CONFUSION, SUSPICION CONFUSION, SUSPICION CONFUSION, SUSPICION H FU Reason for Visit Acute hypokalemia Brain TIA Confusion Renal insufficiency Diarrhea Chief Complaint H FU 2 MO FU Reason for Visit Diarrhea Gammopathy, monoclonal Diarrhea Chief Complaint 2 MO FU 3 MO FU LOWER EXT Reason for Visit Gammopathy, monoclon al Diarrhea Constipation Exocrine pancreatic insufficiency Chief Complaint 2 MO FU 3 MO FU LOWER EXT PAIN IN LEFT HIP Reason for Visit Gammopathy, monoclon al Diarrhea Constipation Exocrine pancreatic insufficiency Chief Complaint 3 MO FU LOWER EXT PAIN IN LEFT HIP BILAREAL PE, CP, LOW PLATELETS Reason for Visit Constipation Exocrine pancreatic insufficiency Bilateral pulmonary embolism Chest pain Hx of multiple myeloma Thrombocytopenia Chief Complaint 3 MO FU LOWER EXT PAIN IN LEFT HIP BILAREAL PE Reason for Visit Constipation Exocrine pancreatic insufficiency Bilateral pulmonary embolism Chest pain Hx of multiple myeloma Thrombocytopenia Chief Complaint 3 MO FU LOWER EXT PAIN IN LEFT HIP Bilateral PE Bilateral PE Reason for Visit Constipation Exocrine pancreatic insufficiency Bilateral pulmonary embolism Hx of multiple myeloma Thrombocytopenia Chief Complaint 3 MO FU LOWER EXT PAIN IN LEFT HIP Bilateral PE Bilateral PE PE Reason for Visit Constipation Exocrine pancreatic insufficiency Bilateral pulmonary embolism Hx of multiple myeloma Thrombocytopenia Chief Complaint sob Chief Complaint sob CHEST PAIN CHEST PAIN Chief Complaint sob CHEST PAIN CHEST PAIN hypoglycemia Chief Complaint sob CHEST PAIN CHEST PAIN hypoglycemia INFLUENZA A Reason for Visit Acidosis, lactic Confusion Hx of multiple myeloma Influenza A Neutropenia Pancytopenia Chief Complaint sob CHEST PAIN CHEST PAIN hypoglycemia NEUTROPENIC FEVER, INFLUENZA A AND METABOLIC NEUTROPENIC FEVER, INFLUENZA A AND METABOLIC NEUTROPENIC FEVER, INFLUENZA A AND METABOLIC Reason for Visit Acidosis, lactic Adverse drug reaction Confusion Diarrhea Hx of multiple myeloma Hypoglycemia Hypokalemia Influenza A Metabolic encephalopathy Neutropenia Neutropenic fever Pancytopenia Reason for Referral Specialty Diagnoses / Procedures Referred By Alonso mcfadden Referred To Contact CT IMAGING Diagnoses Multiple myeloma not having achieved remission (HCC) Monoclonal gammopathy Secondary systemic amyloidosis (HCC) Procedures CT WHOLE BODY SKULL TO KNEE WO IVCON UNLISTED COMPUTED TOMOGRAPHY PROCEDURE Connie Mccain, DO [address] [place] [address] Ct Imaging Referral ID Status Reason Start Date Expiration Date Visits Requested Visits Authorized [id number] Authorized Auto-Generat ed Referral 09/07/2023 1 1 Specialty Diagnoses / Procedures Referred By Alonso mcfadden Referred To Contact XR IMAGING Diagnoses Multiple myeloma not having achieved remission (HCC) Monoclonal gammopathy Secondary systemic amyloidosis (HCC) Procedures XR BONE SURVEY ROUTINE RADIOLOGIC EXAMINATION OSSEOUS SURVEY COMPL Connie Mccain, DO [address] [place] [address] Xr Imaging Referral ID Status Reason Start Date Expiration Date V isits Requested Visits Authorized [id number] Closed Auto-Generate d Referral 08/08/2022 09/07/2023 1 1 Specialty Diagnoses / Procedures Referred By Alonso mcfadden Referred To Contact CT IMAGING Diagnoses Abnormal CT scan, pelvis Abnormal CT of the abdomen Procedures CT ABD/PEL W IVCON CT ABD & PELVIS W/CONTRAST Connie Mccain, DO [address] [place] [address] Ct Imaging Referral ID Status Reason Start Date Expiration Date Visits Requested Visits Authorized [id number] Authorized Auto-Generat ed Referral 2 09/14/2023 1 1 Specialty Diagnoses / Procedures Referred By Contac t Referred To Contact MR IMAGING Diagnoses Liver mass Abnormal CT of the abdomen Procedures MRI LIVER WO/W IVCON MRI ABDOMEN W/O & W/CONTRAST MATERIAL Connie Mccain, DO [address] [address] Mr Imaging Referral ID Status Reason Start Date Expiration Date Visits Requested Visits Authorized [id number] Authorized Auto-Generat ed Referral 08/30/2022 09/29/2023 1 1 Referral ID Status Reason Start Date Expiration Date V isits Requested Visits Authorized [id number] Closed Auto-Generate d Referral 08/30/2022 09/29/2023 1 1 Specialty Diagnoses / Procedures Referred By Contac t Referred To Contact MR IMAGING Diagnoses Smoldering myeloma Procedures MRI LUMBAR SPINE WO/W IVCON MRI SPINAL CANAL LUMBAR W/O & W/CONTR MATRL Connie Mccain, DO [address] [place] [address] Mr Imaging Referral ID Status Reason Start Date Expiration Date Visits Requested Visits Authorized [id number] Authorized Auto-Generat ed Referral 2 10/09/2023 1 1 Specialty Diagnoses / Procedures Referred By Contac t Referred To Contact MR IMAGING Diagnoses Smoldering myeloma Procedures MRI THORACIC SPINE WO/W IVCON MRI SPINAL CANAL THORACIC W/O & W/CONTR MATRL Connie Mccain, DO [address] [place] [address] Mr Imaging Referral ID Status Reason Start Date Expiration Date Visits Requested Visits Authorized [id number] Authorized Auto-Generat ed Referral 2 10/09/2023 1 1 Specialty Diagnoses / Procedures Referred By Contac t Referred To Contact MR IMAGING Diagnoses Smoldering myeloma Procedures MRI CERVICAL SPINE WO/W IVCON MRI SPINAL CANAL CERVICAL W/O & W/CONTR MATRL Connie Mccain, DO [address] [place] [address] Mr Imaging Referral ID Status Reason Start Date Expiration Date Visits Requested Visits Authorized [id number] Authorized Auto-Generat ed Referral 2 10/09/2023 1 1 Specialty Diagnoses / Procedures Referred By Contac t Referred To Contact MR IMAGING Diagnoses Smoldering myeloma Procedures MRI PELVIS ORTHO GENERAL WO/W IVCON MRI ANY JT LOWER EXTREM W/O & W/CONTRAST KALIAL Connie Mccain, DO [address] [place] [address] Mr Imaging Referral ID Status Reason Start Date Expiration Date Visits Requested Visits Authorized [id number] Authorized Auto-Generat ed Referral 2 10/09/2023 1 1 Specialty Diagnoses / Procedures Referred By Contac t Referred To Contact Diagnoses Multiple myeloma not having achieved remission (HCC) Procedures CONSULT TO HEMATOLOGY/ONCOLOGY OFFICE/OUTPATIENT NEW HIGH MDM 60-74 MINUTES Connie Mccain, [address] [place] [address] Referral ID Status Reason Start Date Expiration Date Visits Requested Visits Authorized [id number] Authorized PCP Requested Referral 01/03/2023 01/03/2024 1 1 Referral ID Status Reason Start Date Expiration Date Visits Requested Visits Authorized [id number] Authorized PCP Requested Referral 01/18/2023 01/18/2024 1 1 Specialty Diagnoses / Procedures Referred By Contac t Referred To Contact MR IMAGING Diagnoses Smoldering myeloma Procedures MRI CERVICAL SPINE WO/W IVCON MRI SPINAL CANAL CERVICAL W/O & W/CONTR Connie Monk, DO [address] [place] [address] [place] [address] Referral ID Status Reason Start Date Expiration Date V isits Requested Visits Authorized [id number] Closed Auto-Generate d Referral 09/09/2022 10/09/2023 1 1 Specialty Diagnoses / Procedures Referred By Contac t Referred To Contact MR IMAGING Diagnoses Smoldering myeloma Procedures MRI LUMBAR SPINE WO/W IVCON MRI SPINAL CANAL LUMBAR W/O & W/CONTR MATRL Connie Mccain, DO [address] [place] [address] [place] [address] Referral ID Status Reason Start Date Expiration Date V isits Requested Visits Authorized [id number] Closed Auto-Generate d Referral 09/09/2022 10/09/2023 1 1 Specialty Diagnoses / Procedures Referred By Contac t Referred To Contact MR IMAGING Diagnoses Smoldering myeloma Procedures MRI THORACIC SPINE WO/W IVCON MRI SPINAL CANAL THORACIC W/O & W/CONTR MATRL Connie Mccain, DO [address] [place] [address] [place] [id number] Referral ID Status Reason Start Date Expiration Date V isits Requested Visits Authorized [id number] Closed Auto-Generate d Referral 09/09/2022 10/09/2023 1 1 Specialty Diagnoses / Procedures Referred By Contac t Referred To Contact CT IMAGING Diagnoses Multiple myeloma not having achieved remission (HCC) Monoclonal gammopathy Secondary systemic amyloidosis (HCC) Procedures CT WHOLE BODY SKULL TO KNEE WO IVCON UNLISTED COMPUTED TOMOGRAPHY PROCEDURE Connie Mccain DO [address] [place] [address] Ct Imaging [id number] Referral ID Status Reason Start Date Expiration Date V isits Requested Visits Authorized [id number] Closed Auto-Generate d Referral 08/08/2022 09/07/2023 1 1 Specialty Diagnoses / Procedures Referred By Contac t Referred To Contact Neurology Diagnoses Right thigh pain Muscle pain Procedures CONSULT TO NEUROLOGY OFFICE/OUTPATIENT [facility] 60 MINUTES Connie Mccain DO [address] [facility] [place] [address] Referral ID Status Reason Start Date Expiration Date Visits Requested Visits Authorized [id number] Authorized PCP Requested Referral 11/17/2023 11/16/2024 1 1 Specialty Diagnoses / Procedures Referred By Contac t Referred To Contact [facility] Diagnoses Right thigh pain Muscle pain Weakness of right lower extremity Femoral neuropathy of right lower extremity Procedures CONSULT TO PHYSICAL THERAPY PHYSICAL THERAPY EVALUATION [facility] 45 MINS Martha Leone MD [address] [place] [address] [facility] [address] [place] [address] Referral ID Status Reason Start Date Expiration Date Visits Requested Visits Authorized [id number] Authorized PCP Requested Referral Auto-Generate d Referral 12/22/2023 12/21/2024 99 99 Specialty Diagnoses / Procedures Referred By Contac t Referred To Contact [facility] Diagnoses Right thigh pain Muscle pain Weakness of right lower extremity Femoral neuropathy of right lower extremity Procedures EMG(NEURO/NI) NERVE CONDUCTION STUDIES 9-10 STUDIES Martha Leone MD [address] [place] [address] [facility] [place] [address] [place] [address] Referral ID Status Reason Start Date Expiration Date Visits Requested Visits Authorized [id number] Authorized Auto-Generat ed Referral 12/22/2023 12/21/2024 1 1 Specialty Diagnoses / Procedures Referred By Contac t Referred To Contact MR IMAGING Diagnoses Altered mental status, unspecified altered mental status type Multiple myeloma not having achieved remission (HCC) Procedures MRI BRAIN WO/W IVCON MRI BRAIN BRAIN STEM W/O W/CONTRAST MATERIAL Connie Mccain DO [address] [place] [address] Mr Imaging [id number] Referral ID Status Reason Start Date Expiration Date Visits Requested Visits Authorized [id number] Authorized Auto-Generat ed Referral 03/07/2024 04/06/2025 1 1 Specialty Diagnoses / Procedures Referred By Contac t Referred To Contact Neurology Diagnoses Altered mental status, unspecified altered mental status type Multiple myeloma not having achieved remission (HCC) Procedures CONSULT TO NEUROLOGY OFFICE/OUTPATIENT [facility] 60 MINUTES Connie Mccain, DO [address] [facility] [place] [address] Referral ID Status Reason Start Date Expiration Date Visits Requested Visits Authorized [id number] Authorized PCP Requested Referral 03/07/2024 03/07/2025 1 1 Specialty Diagnoses / Procedures Referred By Contac t Referred To Contact MR IMAGING Diagnoses Schwannoma of nerve of head Procedures MRI BRAIN WO/W IVCON MRI BRAIN BRAIN STEM W/O W/CONTRAST MATERIAL Masci, Connie A, DO [address] [place] [address] [place] [id number] Referral ID Status Reason Start Date Expiration Date Visits Requested Visits Authorized [id number] Authorized Auto-Generat ed Referral 03/25/2024 04/24/2025 1 1 Specialty Diagnoses / Procedures Referred By Contac t Referred To Contact MR IMAGING Diagnoses Schwannoma of nerve of head Multiple myeloma not having achieved remission (HCC) Procedures MRI SKULL BASE WO/W IVCON MRI BRAIN BRAIN STEM W/O W/CONTRAST MATERIAL Connie Mccain, DO [address] [facility] [place] [place] [address] [place] [id number] Referral ID Status Reason Start Date Expiration Date Visits Requested Visits Authorized [id number] Authorized Auto-Generat ed Referral 03/27/2024 04/26/2025 1 1 Specialty Diagnoses / Procedures Referred By Contac t Referred To Contact Neurosurgery Diagnoses Multiple myeloma not having achieved remission (HCC) Schwannoma of nerve of head Procedures CONSULT TO NEUROSURGERY OFFICE/OUTPATIENT [facility] MDM 60 MINUTES Connie Mccain, DO [address] [place] [address] Referral ID Status Reason Start Date Expiration Date Visits Requested Visits Authorized [id number] Authorized PCP Requested Referral 04/05/2024 04/04/2025 1 1 Specialty Diagnoses / Procedures Referred By Contac t Referred To Contact MR IMAGING Diagnoses Multiple myeloma not having achieved remission (HCC) Schwannoma of nerve of head Procedures MRI BRAIN WO/W IVCON MRI BRAIN BRAIN STEM W/O W/CONTRAST MATERIAL Geoff Young MD [address] [place] [address] [place] [id number] Referral ID Status Reason Start Date Expiration Date Visits Requested Visits Authorized [id number] Authorized Auto-Generat ed Referral 04/09/2024 05/09/2025 1 1 Specialty Diagnoses / Procedures Referred By Contac t Referred To Contact Occupational Therapy / OCCUPATIONAL THERAPY Diagnoses Memory loss Procedures CONSULT TO INSIDE SALES ASSISTANT OCCUPATIONAL THERAPY EVAL HIGH COMPLEX 60 MINS Betsy Kemp PA-C [address] [place] [address] Ally Rosenthal OT/Sania Referral ID Status Reason Start Date Expiration Date Visits Requested Visits Authorized [id number] New Request PCP Requested Referral Auto-Generate d Referral 05/22/2024 10/22/2024 1 1 Specialty Diagnoses / Procedures Referred By Contac t Referred To Contact Diagnoses Memory loss Procedures NEUROPSYCHOLOGICAL TESTING CONSULT NEUROBEHAVIORAL STATUS XM PHYS/QHP 1ST HOUR NEUROPSYCHOLOGICAL TST EVAL PHYS/QHP 1ST HOUR NEUROPSYCHOLOGICAL TST EVAL PHYS/QHP EA ADDL HR PSYCL/NRPSYCL TST TECH 2+ TST 1ST 30 MIN PSYCL/NRPSYCL TST TECH 2+ TST EA ADDL 30 MIN Betsy Kemp PA-C [address] [place] [address] Referral ID Status Reason Start Date Expiration Date Visits Requested Visits Authorized [id number] Ref Not Required PCP Requested Referral 05/22/2024 05/22/2025 1 3 Referral ID Status Reason Start Date Expiration Date V isits Requested Visits Authorized [id number] Closed Auto-Generate d Referral 04/09/2024 05/09/2025 1 1 Specialty Diagnoses / Procedures Referred By Contac t Referred To Contact MR IMAGING Diagnoses Vestibular schwannoma (HCC) Procedures MRI BRAIN WO/W IVCON MRI BRAIN BRAIN STEM W/O W/CONTRAST MATERIAL Geoff Young MD [address] [place] [address] Mr Imaging [id number] Referral ID Status Reason Start Date Expiration Date Visits Requested Visits Authorized [id number] Authorized Auto-Generat ed Referral 11/07/2025 1 1 Specialty Diagnoses / Procedures Referred By Contac t Referred To Contact Neurology Diagnoses Memory loss REM sleep behavior disorder Procedures CONSULT TO NEUROLOGY OFFICE/OUTPATIENT [facility] MDM 60 MINUTES Betsy Kemp PA-C [address] [place] [address] Referral ID Status Reason Start Date Expiration Date Visits Requested Visits Authorized [id number] Authorized PCP Requested Referral 11/19/2024 11/19/2025 1 1 Medications Administered Section Inactive Administered Medications - up to 3 most recent administrations Medication Order MAR Action Action Date Dose Rate Site NaCl 0.9% iv bolus 500 mL 500 mL, INTRAVENOUS, at 500 mL/hr, Administer over 1 Hours, ONCE, 1 dose, On Mon08/26/22 at 0800 New Bag/Syringe/Bottle 08/26/2022 7:58 AM EDT 500 mL 500 mL/hr Inactive Administered Medications - up to 3 most recent administrations Medication Order MAR Action Action Date Dose Rate Site bortezomib 2.8 mg in NaCl 0.9% (VELCADE) 2.8 mg (rounded from 2.795 mg = 1.3 mg/m2 2.15 m2 Treatment Plan BSA from Recorded weight), SUBCUTANEOUS, ONCE, 1 dose, On Mon11/16/22 at 0900, exp 1700 11/16/22 (room temp) - DO NOT SHAKE - Hazardous Chemotherapy Drug: Use appropriate PPE. FATAL IF GIVEN INTRATHECALLY. Given 11/16/2022 9:25 AM EST 2.8 mg Abdominal Tissue Inactive Administered Medications - up to 3 most recent administrations Medication Order MAR Action Action Date Dose Rate Site bortezomib 2.8 mg in NaCl 0.9% (VELCADE) 2.8 mg (rounded from 2.795 mg = 1.3 mg/m2 2.15 m2 Treatment Plan BSA from Recorded weight), SUBCUTANEOUS, ONCE, 1 dose, On Mon11/23/22 at 1330, exp 2130 11/23/22 (room temp) - DO NOT SHAKE - Hazardous Chemotherapy Drug: Use appropriate PPE. FATAL IF GIVEN INTRATHECALLY. Given 11/23/2022 1:58 PM EST 2.8 mg Abdominal Tissue Inactive Administered Medications - up to 3 most recent administrations Medication Order MAR Action Action Date Dose Rate Site bortezomib 2.8 mg in NaCl 0.9% (VELCADE) 2.8 mg (rounded from 2.795 mg = 1.3 mg/m2 2.15 m2 Treatment Plan BSA from Recorded weight), SUBCUTANEOUS, ONCE, 1 dose, On Mon12/21/22 at 1430, Expires: 12/21/22 @ 2140 - DO NOT SHAKE - Hazardous Chemotherapy Drug: Use appropriate PPE. FATAL IF GIVEN INTRATHECALLY. Given 12/21/2022 2:29 PM EST 2.8 mg Abdominal Tissue Inactive Administered Medications - up to 3 most recent administrations Medication Order MAR Action Action Date Dose Rate Site bortezomib 2.8 mg in NaCl 0.9% (VELCADE) 2.8 mg (rounded from 2.795 mg = 1.3 mg/m2 2.15 m2 Treatment Plan BSA from Recorded weight), SUBCUTANEOUS, ONCE, 1 dose, On Mon01/04/23 at 1430, exp 2200 01/04/23 (room temp) - DO NOT SHAKE - Hazardous Chemotherapy Drug: Use appropriate PPE. FATAL IF GIVEN INTRATHECALLY. Given 01/04/2023 2:46 PM EDT 2.8 mg Abdominal Tissue zoledronic yn-vimwdgnc-0.9NaCl 4 mg iv piggyback 100 mL (ZOMETA) 4 mg, INTRAVENOUS, Administer over 15 Minutes, ONCE, 1 dose, On Mon01/04/23 at 1430, Hazardous Potential Reproductive Risk Drug: Use appropriate PPE. New Bag/Syringe/Bottl e 01/04/2023 2:41 PM EDT 4 mg Inactive Administered Medications - up to 3 most recent administrations Medication Order MAR Action Action Date Dose Rate Site bortezomib 2.8 mg in NaCl 0.9% (VELCADE) 2.8 mg (rounded from 2.795 mg = 1.3 mg/m2 2.15 m2 Treatment Plan BSA from Recorded weight), SUBCUTANEOUS, ONCE, 1 dose, On Mon01/11/23 at 1430, - EXP: - DO NOT SHAKE - Hazardous Chemotherapy Drug: Use appropriate PPE. FATAL IF GIVEN INTRATHECALLY. Given 01/11/2023 2:50 PM EDT 2.8 mg Abdominal Tissue Inactive Administered Medications - up to 3 most recent administrations Medication Order MAR Action Action Date Dose Rate Site bortezomib 2.8 mg in NaCl 0.9% (VELCADE) 2.8 mg (rounded from 2.795 mg = 1.3 mg/m2 2.15 m2 Treatment Plan BSA from Recorded weight), SUBCUTANEOUS, ONCE, 1 dose, On Mon01/18/23 at 1530, exp 2330 01/18/23 (room temp) - DO NOT SHAKE - Hazardous Chemotherapy Drug: Use appropriate PPE. FATAL IF GIVEN INTRATHECALLY. Given 01/18/2023 3:29 PM EDT 2.8 mg Abdominal Tissue Inactive Administered Medications - up to 3 most recent administrations Medication Order MAR Action Action Date Dose Rate Site acetaminophen 1,000 mg tab(s) (TYLENOL) 1,000 mg, ORAL, ONCE, 1 dose, On Mon02/01/23 at 0800, No more than 4000 mg of acetaminophen should be given per day (FROM ALL SOURCES), If ordered PRN for pain, patient/guardian may elect to receive this medication for higher pain levels INSTEAD of the opioid, if preferred: N/A Given 02/01/2023 8:06 AM EDT 1,000 mg bortezomib 2.8 mg in NaCl 0.9% (VELCADE) 2.8 mg (rounded from 2.795 mg = 1.3 mg/m2 2.15 m2 Treatment Plan BSA from Recorded weight), SUBCUTANEOUS, ONCE, 1 dose, On Mon02/01/23 at 0800, exp 1600 02/01/23 (room temp) - DO NOT SHAKE - Hazardous Chemotherapy Drug: Use appropriate PPE. FATAL IF GIVEN INTRATHECALLY. Given 02/01/2023 8:47 AM EDT 2.8 mg Abdominal Tissue daratumumab 1,800 mg - hyaluronidase-fij 30,000 units 1,800 mg injection (DARZALEX FASPRO) 1,800 mg, SUBCUTANEOUS, ONCE, 1 dose, On Mon02/01/23 at 0800, ++FOR SUBCUTANEOUS ADMINISTRATION ONLY++ EXP: (12 HR) Inject subcutaneously into subcutaneous tissue on the abdomen approximately 3 inches to the right or left of the navel over 3 to 5 minutes. Given 02/01/2023 8:50 AM EDT 1,800 mg Abdominal Tissue dexAMETHasone 20 mg in 0.9% NaCl 50 mL (DECADRON) 20 mg, INTRAVENOUS, Administer over 15 Minutes, ONCE, 1 dose, On Mon02/01/23 at 0800, Give prior to chemotherapy. Refrigerate. New Bag/Syringe/Bot tle 02/01/2023 8:12 AM EDT 20 mg diphenhydrAMINE 50 mg injection (BENADRYL) 50 mg, INTRAVENOUS, ONCE, 1 dose, On Mon02/01/23 at 0800, Give prior to chemotherapy. Given 02/01/2023 8:08 AM EDT 50 mg famotidine 20 mg injection (PEPCID) 20 mg, INTRAVENOUS, ONCE, 1 dose, On Mon02/01/23 at 0800, Give prior to chemotherapy. REFRIGERATE Given 02/01/2023 8:10 AM EDT 20 mg zoledronic il-cbhoksmv-0.9NaCl 4 mg iv piggyback 100 mL (ZOMETA) 4 mg, INTRAVENOUS, Administer over 15 Minutes, ONCE, 1 dose, On Mon02/01/23 at 0830, Hazardous Potential Reproductive Risk Drug: Use appropriate PPE. New Bag/Syringe/Bot tle 02/01/2023 8:33 AM EDT 4 mg Inactive Administered Medications - up to 3 most recent administrations Medication Order MAR Action Action Date Dose Rate Site acetaminophen 1,000 mg tab(s) (TYLENOL) 1,000 mg, ORAL, ONCE, 1 dose, On Mon02/08/23 at 1430, No more than 4000 mg of acetaminophen should be given per day (FROM ALL SOURCES), If ordered PRN for pain, patient/guardian may elect to receive this medication for higher pain levels INSTEAD of the opioid, if preferred: N/A Given 02/08/2023 2:54 PM EDT 1,000 mg bortezomib 2.8 mg in NaCl 0.9% (VELCADE) 2.8 mg (rounded from 2.795 mg = 1.3 mg/m2 2.15 m2 Treatment Plan BSA from Recorded weight), SUBCUTANEOUS, ONCE, 1 dose, On Mon02/08/23 at 1430, exp 2230 02/08/23 (room temp) - DO NOT SHAKE - Hazardous Chemotherapy Drug: Use appropriate PPE. FATAL IF GIVEN INTRATHECALLY. Given 02/08/2023 3:36 PM EDT 2.8 mg Abdominal Tissue daratumumab 1,800 mg - hyaluronidase-fihj 30,000 units 1,800 mg injection (DARZALEX FASPRO) 1,800 mg, SUBCUTANEOUS, ONCE, 1 dose, On Mon02/08/23 at 1430, ++FOR SUBCUTANEOUS ADMINISTRATION ONLY++ exp 0300 02/09/23 (room temp) EXP: (12 HR) Inject subcutaneously into subcutaneous tissue on the abdomen approximately 3 inches to the right or left of the navel over 3 to 5 minutes. Given 02/08/2023 3:36 PM EDT 1,800 mg Abdominal Tissue dexAMETHasone 20 mg in 0.9% NaCl 50 mL (DECADRON) 20 mg, INTRAVENOUS, Administer over 15 Minutes, ONCE, 1 dose, On Mon02/08/23 at 1430, Give prior to chemotherapy. Refrigerate. New Bag/Syringe/Bot tle 02/08/2023 3:01 PM EDT 20 mg diphenhydrAMINE 50 mg injection (BENADRYL) 50 mg, INTRAVENOUS, ONCE, 1 dose, On Mon02/08/23 at 1430, Give prior to chemotherapy. Given 02/08/2023 2:55 PM EDT 50 mg famotidine 20 mg injection (PEPCID) 20 mg, INTRAVENOUS, ONCE, 1 dose, On Mon02/08/23 at 1430, Give prior to chemotherapy. REFRIGERATE Given 02/08/2023 2:54 PM EDT 20 mg Inactive Administered Medications - up to 3 most recent administrations Medication Order MAR Action Action Date Dose Rate Site acetaminophen 1,000 mg tab(s) (TYLENOL) 1,000 mg, ORAL, ONCE, 1 dose, On Mon02/15/23 at 1430, No more than 4000 mg of acetaminophen should be given per day (FROM ALL SOURCES), If ordered PRN for pain, patient/guardian may elect to receive this medication for higher pain levels INSTEAD of the opioid, if preferred: N/A Given 02/15/2023 3:11 PM EDT 1,000 mg bortezomib 2.8 mg in NaCl 0.9% (VELCADE) 2.8 mg (rounded from 2.795 mg = 1.3 mg/m2 2.15 m2 Treatment Plan BSA from Recorded weight), SUBCUTANEOUS, ONCE, 1 dose, On Mon02/15/23 at 1430, exp 2300 02/15/23 (room temp) - DO NOT SHAKE - Hazardous Chemotherapy Drug: Use appropriate PPE. FATAL IF GIVEN INTRATHECALLY. Given 02/15/2023 3:38 PM EDT 2.8 mg Abdominal Tissue daratumumab 1,800 mg - hyaluronidase-fihj 30,000 units 1,800 mg injection (DARZALEX FASPRO) 1,800 mg, SUBCUTANEOUS, ONCE, 1 dose, On Mon02/15/23 at 1430, ++FOR SUBCUTANEOUS ADMINISTRATION ONLY++ exp 0300 02/16/23 (room temp) EXP: (12 HR) Inject subcutaneously into subcutaneous tissue on the abdomen approximately 3 inches to the right or left of the navel over 3 to 5 minutes. Given 02/15/2023 3:38 PM EDT 1,800 mg Abdominal Tissue dexAMETHasone 20 mg in 0.9% NaCl 50 mL (DECADRON) 20 mg, INTRAVENOUS, Administer over 15 Minutes, ONCE, 1 dose, On Mon02/15/23 at 1430, Give prior to chemotherapy. Refrigerate. New Bag/Syringe/Bot tle 02/15/2023 3:12 PM EDT 20 mg diphenhydrAMINE 50 mg injection (BENADRYL) 50 mg, INTRAVENOUS, ONCE, 1 dose, On Mon02/15/23 at 1430, Give prior to chemotherapy. Given 02/15/2023 3:12 PM EDT 50 mg famotidine 20 mg injection (PEPCID) 20 mg, INTRAVENOUS, ONCE, 1 dose, On Mon02/15/23 at 1430, Give prior to chemotherapy. REFRIGERATE Given 02/15/2023 3:11 PM EDT 20 mg Inactive Administered Medications - up to 3 most recent administrations Medication Order MAR Action Action Date Dose Rate Site acetaminophen 1,000 mg tab(s) (TYLENOL) 1,000 mg, ORAL, ONCE, 1 dose, On Mon03/21/23 at 1100, No more than 4000 mg of acetaminophen should be given per day (FROM ALL SOURCES), If ordered PRN for pain, patient/guardian may elect to receive this medication for higher pain levels INSTEAD of the opioid, if preferred: N/A Given 03/21/2023 11:03 AM EDT 1,000 mg daratumumab 1,800 mg - hyaluronidase-fihj 30,000 units 1,800 mg injection (DARZALEX FASPRO) 1,800 mg, SUBCUTANEOUS, ONCE, 1 dose, On Mon03/21/23 at 1100, ++FOR SUBCUTANEOUS ADMINISTRATION ONLY++ exp 224903/21/23 (room temp) EXP: (12 HR) Inject subcutaneously into subcutaneous tissue on the abdomen approximately 3 inches to the right or left of the navel over 3 to 5 minutes. Given 03/21/2023 11:23 AM EDT 1,800 mg Abdominal Tissue diphenhydrAMINE 50 mg injection (BENADRYL) 50 mg, INTRAVENOUS, ONCE, 1 dose, On Mon03/21/23 at 1100 Given 03/21/2023 11:05 AM EDT 50 mg famotidine 20 mg injection (PEPCID) 20 mg, INTRAVENOUS, ONCE, 1 dose, On Mon03/21/23 at 1100, Give prior to chemotherapy. REFRIGERATE Given 03/21/2023 11:07 AM EDT 20 mg Inactive Administered Medications - up to 3 most recent administrations Medication Order MAR Action Action Date Dose Rate Site acetaminophen 1,000 mg tab(s) (TYLENOL) 1,000 mg, ORAL, ONCE, 1 dose, On Mon03/28/23 at 1130, No more than 4000 mg of acetaminophen should be given per day (FROM ALL SOURCES), If ordered PRN for pain, patient/guardian may elect to receive this medication for higher pain levels INSTEAD of the opioid, if preferred: N/A Given 03/28/2023 11:27 AM EDT 1,000 mg bortezomib 2.75 mg in NaCl 0.9% (VELCADE) 2.75 mg (rounded from 2.756 mg = 1.3 mg/m2 2.12 m2 Treatment Plan BSA from Recorded weight), SUBCUTANEOUS, ONCE, 1 dose, On Mon03/28/23 at 1130, exp 199903/28/23 (room temp) - DO NOT SHAKE - Hazardous Chemotherapy Drug: Use appropriate PPE. FATAL IF GIVEN INTRATHECALLY. Given 03/28/2023 11:45 AM EDT 2.75 mg Abdominal Tissue daratumumab 1,800 mg - hyaluronidase-fihj 30,000 units 1,800 mg injection (DARZALEX FASPRO) 1,800 mg, SUBCUTANEOUS, ONCE, 1 dose, On Mon03/28/23 at 1130, ++FOR SUBCUTANEOUS ADMINISTRATION ONLY++exp 232903/28/23 (room temp) EXP: (12 HR) Inject subcutaneously into subcutaneous tissue on the abdomen approximately 3 inches to the right or left of the navel over 3 to 5 minutes. Given 03/28/2023 11:45 AM EDT 1,800 mg Abdominal Tissue diphenhydrAMINE 50 mg (BENADRYL) 50 mg, ORAL, ONCE, 1 dose, On Mon03/28/23 at 1130 Given 03/28/2023 11:28 AM EDT 50 mg famotidine 20 mg tab(s) (PEPCID) 20 mg, ORAL, ONCE, 1 dose, On Mon03/28/23 at 1130 Given 03/28/2023 11:28 AM EDT 20 mg Inactive Administered Medications - up to 3 most recent administrations Medication Order MAR Action Action Date Dose Rate Site bortezomib 2.75 mg in NaCl 0.9% (VELCADE) 2.75 mg (rounded from 2.756 mg = 1.3 mg/m2 2.12 m2 Treatment Plan BSA from Recorded weight), SUBCUTANEOUS, ONCE, 1 dose, On Mon04/07/23 at 0930, exp 17304/07/23 (room temp) - DO NOT SHAKE - Hazardous Chemotherapy Drug: Use appropriate PPE. FATAL IF GIVEN INTRATHECALLY. Given 04/07/2023 9:34 AM EDT 2.75 mg Abdominal Tissue Inactive Administered Medications - up to 3 most recent administrations Medication Order MAR Action Action Date Dose Rate Site acetaminophen 1,000 mg tab(s) (TYLENOL) 1,000 mg, ORAL, ONCE, 1 dose, On Mon04/11/23 at 1330, No more than 4000 mg of acetaminophen should be given per day (FROM ALL SOURCES), If ordered PRN for pain, patient/guardian may elect to receive this medication for higher pain levels INSTEAD of the opioid, if preferred: N/A Given 04/11/2023 1:16 PM EDT 1,000 mg daratumumab 1,800 mg - hyaluronidase-fihj 30,000 units 1,800 mg injection (DARZALEX FASPRO) 1,800 mg, SUBCUTANEOUS, ONCE, 1 dose, On Mon04/11/23 at 1330, ++FOR SUBCUTANEOUS ADMINISTRATION ONLY++ exp 01004/12/23 (room temp) EXP: (12 HR) Inject subcutaneously into subcutaneous tissue on the abdomen approximately 3 inches to the right or left of the navel over 3 to 5 minutes. Given 04/11/2023 1:57 PM EDT 1,800 mg Abdominal Tissue diphenhydrAMINE 50 mg (BENADRYL) 50 mg, ORAL, ONCE, 1 dose, On Mon04/11/23 at 1330 Given 04/11/2023 1:16 PM EDT 50 mg famotidine 20 mg tab(s) (PEPCID) 20 mg, ORAL, ONCE, 1 dose, On Mon04/11/23 at 1330 Given 04/11/2023 1:16 PM EDT 20 mg Inactive Administered Medications - up to 3 most recent administrations Medication Order MAR Action Action Date Dose Rate Site acetaminophen 1,000 mg tab(s) (TYLENOL) 1,000 mg, ORAL, ONCE, 1 dose, On Mon04/18/23 at 1130, No more than 4000 mg of acetaminophen should be given per day (FROM ALL SOURCES), If ordered PRN for pain, patient/guardian may elect to receive this medication for higher pain levels INSTEAD of the opioid, if preferred: N/A Given 04/18/2023 11:42 AM EDT 1,000 mg bortezomib 2.75 mg in NaCl 0.9% (VELCADE) 2.75 mg (rounded from 2.756 mg = 1.3 mg/m2 2.12 m2 Treatment Plan BSA from Recorded weight), SUBCUTANEOUS, ONCE, 1 dose, On Mon04/18/23 at 1130, - EXP: 04/18/23 1830 - DO NOT SHAKE - Hazardous Chemotherapy Drug: Use appropriate PPE. FATAL IF GIVEN INTRATHECALLY. Given 04/18/2023 12:16 PM EDT 2.75 mg Abdominal Tissue daratumumab 1,800 mg - hyaluronidase-fij 30,000 units 1,800 mg injection (DARZALEX FASPRO) 1,800 mg, SUBCUTANEOUS, ONCE, 1 dose, On Mon04/18/23 at 1130, ++FOR SUBCUTANEOUS ADMINISTRATION ONLY++ Expiration: 04/19/23 1200 EXP: (12 HR) Inject subcutaneously into subcutaneous tissue on the abdomen approximately 3 inches to the right or left of the navel over 3 to 5 minutes. Given 04/18/2023 12:16 PM EDT 1,800 mg Abdominal Tissue diphenhydrAMINE 50 mg (BENADRYL) 50 mg, ORAL, ONCE, 1 dose, On Mon04/18/23 at 1130 Given 04/18/2023 11:42 AM EDT 50 mg famotidine 20 mg tab(s) (PEPCID) 20 mg, ORAL, ONCE, 1 dose, On Mon04/18/23 at 1130 Given 04/18/2023 11:42 AM EDT 20 mg Inactive Administered Medications - up to 3 most recent administrations Medication Order MAR Action Action Date Dose Rate Site oxyCODONE-acetaminophen 5-325 mg 1-2 tablet (PERCOCET) 1-2 tablet, ORAL, ONCE, 1 dose, On Mon04/19/23 at 1030, Administer 15-30 minutes prior to bone marrow biopsy , TAUSSIG PROCEDURES Given 04/19/2023 10:17 AM EDT 1 tablet Inactive Administered Medications - up to 3 most recent administrations Medication Order MAR Action Action Date Dose Rate Site bortezomib 2.75 mg in NaCl 0.9% (VELCADE) 2.75 mg (rounded from 2.756 mg = 1.3 mg/m2 2.12 m2 Treatment Plan BSA from Recorded weight), SUBCUTANEOUS, ONCE, 1 dose, On Mon04/21/23 at 1430, - EXP: 04/21/12 - DO NOT SHAKE - Hazardous Chemotherapy Drug: Use appropriate PPE. FATAL IF GIVEN INTRATHECALLY. Given 04/21/2023 2:57 PM EDT 2.75 mg Abdominal Tissue Inactive Administered Medications - up to 3 most recent administrations Medication Order MAR Action Action Date Dose Rate Site acetaminophen 1,000 mg tab(s) (TYLENOL) 1,000 mg, ORAL, ONCE, 1 dose, On Mon04/24/23 at 1300, No more than 4000 mg of acetaminophen should be given per day (FROM ALL SOURCES), If ordered PRN for pain, patient/guardian may elect to receive this medication for higher pain levels INSTEAD of the opioid, if preferred: N/A Given 04/24/2023 1:11 PM EDT 1,000 mg bortezomib 2.75 mg in NaCl 0.9% (VELCADE) 2.75 mg (rounded from 2.756 mg = 1.3 mg/m2 2.12 m2 Treatment Plan BSA from Recorded weight), SUBCUTANEOUS, ONCE, 1 dose, On Mon04/24/23 at 1300, 04/24/23 @ 2115 - DO NOT SHAKE - Hazardous Chemotherapy Drug: Use appropriate PPE. FATAL IF GIVEN INTRATHECALLY. Given 04/24/2023 1:44 PM EDT 2.75 mg Abdominal Tissue daratumumab 1,800 mg - hyaluronidase-fihj 30,000 units 1,800 mg injection (DARZALEX FASPRO) 1,800 mg, SUBCUTANEOUS, ONCE, 1 dose, On Mon04/24/23 at 1300, ++FOR SUBCUTANEOUS ADMINISTRATION ONLY++ EXP: (12 HR) Inject subcutaneously into subcutaneous tissue on the abdomen approximately 3 inches to the right or left of the navel over 3 to 5 minutes. Given 04/24/2023 1:44 PM EDT 1,800 mg Abdominal Tissue diphenhydrAMINE 50 mg (BENADRYL) 50 mg, ORAL, ONCE, 1 dose, On Mon04/24/23 at 1300 Given 04/24/2023 1:11 PM EDT 50 mg famotidine 20 mg tab(s) (PEPCID) 20 mg, ORAL, ONCE, 1 dose, On Mon04/24/23 at 1300 Given 04/24/2023 1:11 PM EDT 20 mg Inactive Administered Medications - up to 3 most recent administrations Medication Order MAR Action Action Date Dose Rate Site bortezomib 2.75 mg in NaCl 0.9% (VELCADE) 2.75 mg (rounded from 2.756 mg = 1.3 mg/m2 2.12 m2 Treatment Plan BSA from Recorded weight), SUBCUTANEOUS, ONCE, 1 dose, On Mon04/28/23 at 1100, Expires: @ 1840 - DO NOT SHAKE - Hazardous Chemotherapy Drug: Use appropriate PPE. FATAL IF GIVEN INTRATHECALLY. Given 04/28/2023 11:12 AM EDT 2.75 mg Abdominal Tissue Inactive Administered Medications - up to 3 most recent administrations Medication Order MAR Action Action Date Dose Rate Site calcium chloride 1 g in D5W 100 mL 1 g, INTRAVENOUS, at 50-100 mL/hr, Administer over 1-2 Hours, APHERESIS PRN, 4 doses, Starting on Mon05/17/23 at 0713, Until Mon05/17/23 at 1837, Give during collection to prevent and treat tingling., ADMINISTER VIA CENTRAL LINE ONLY For use by Apheresis only. Administer via Central Line Only - Refrigerate - Noncytotoxic Vesicant New Bag/Syringe/Bottle 05/17/2023 9:31 AM EDT 1 g 50 mL/hr New Bag/Syringe/Bottle 05/17/2023 7:32 AM EDT 1 g 5 0 mL/hr dextrose 2.45 g-sodium citrate 2.2 g-citrate acid 730 mg/100 mL (ACD-A) infusion 1-3,000 mL, apheresis, APHERESIS, Starting on Mon05/17/23 at 0713, Until Mon05/17/23 at 1837, Administered via Apheresis machine. Total administered volume, rate, and duration are variable dependent on the patient's size, and the procedures. Apheresis and/or Portable Pump 05/17/2023 11:37 AM EDT 1,460 mL NaCl 0.9% 500 mL iv bolus 500 mL, INTRAVENOUS, at 999 mL/hr, Administer over 0.5 Hours, ONCE, 1 dose, On Mon05/17/23 at 1000 New Bag/Syringe/Bottle 05/17/2023 9:54 AM EDT 500 mL 250 mL/hr Inactive Administered Medications - up to 3 most recent administrations Medication Order MAR Action Action Date Dose Rate Site NaCl 0.9% iv bolus 1,000 mL 1,000 mL, INTRAVENOUS, at 500 mL/hr, Administer over 2 Hours, NEEDED, Starting on Mon06/21/23 at 0927, Until Mon06/21/23 at 1333, See admin instructions, If the systolic BP is decreased by 15mmHg and/or HR increases 20 beats when the patient goes from sitting to standing. New Bag/Syringe/Bottle 06/21/2023 9:30 AM EDT 1,000 mL 500 mL/hr Additional Source Comments (unrecognized sect ion and content) No Status Records FoundNo Status Records FoundNo Status Records FoundNo Status Records FoundNo Status Records FoundNo Status Records FoundNo Status Records FoundNo Status Records FoundNo Status Records Found INFORMATION SOURCE (unrecogn ized section and content) DATE CREATED AUTHOR 06/10/2021 [facility] DATE CREATED AUTHOR AUTHOR'S ORGANIZ ATION 08/18/2021 [facility] DATE CREATED AUTHOR AUTHOR'S ORGANIZ ATION 05/11/2023 [facility] DATE CREATED AUTHOR AUTHOR'S ORGANIZ ATION 07/27/2023 [facility] DATE CREATED AUTHOR AUTHOR'S ORGANIZ ATION 10/15/2024 [facility] DATE CREATED AUTHOR AUTHOR'S ORGANIZ ATION 04/09/2025 [facility] DATE CREATED AUTHOR AUTHOR'S ORGANIZ ATION 04/10/2025 [facility] DATE CREATED AUTHOR AUTHOR'S ORGANIZ ATION 05/28/2025 [facility] DATE CREATED AUTHOR AUTHOR'S ORGANIZ ATION 05/30/2025 [facility] Goals (unrecognized section and content) Goals may be documented in a n alternate sectionGoals may be documented in an alternate sectionGoals may be documented in an alternate sectionGoals may be documented in an alternate sectionGoals may be documented in an alternate sectionGoals may be documented in an alternate section Source Comments (unrecognize d section and content) In the event this informatio n is protected by the Federal Confidentiality of Alcohol and Drug Abuse Patient Records regulations: The Federal rules restrict any use of the information to criminally investigate or prosecute any alcohol or drug abuse patient.[facility] HospitalIn the event this information is protected by the Federal Confidentiality of Alcohol and Drug Abuse Patient Records regulations: The Federal rules restrict any use of the information to criminally investigate or prosecute any alcohol or drug abuse patient.[facility] HospitalIn the event this information is protected by the Federal Confidentiality of Alcohol and Drug Abuse Patient Records regulations: The Federal rules restrict any use of the information to criminally investigate or prosecute any alcohol or drug abuse patient.[facility] HospitalIn the event this information is protected by the Federal Confidentiality of Alcohol and Drug Abuse Patient Records regulations: The Federal rules restrict any use of the information to criminally investigate or prosecute any alcohol or drug abuse patient.[facility] HospitalIn the event this information is protected by the Federal Confidentiality of Alcohol and Drug Abuse Patient Records regulations: The Federal rules restrict any use of the information to criminally investigate or prosecute any alcohol or drug abuse patient.[facility] HospitalIn the event this information is protected by the Federal Confidentiality of Alcohol and Drug Abuse Patient Records regulations: The Federal rules restrict any use of the information to criminally investigate or prosecute any alcohol or drug abuse patient.[facility] HospitalIn the event this information is protected by the Federal Confidentiality of Alcohol and Drug Abuse Patient Records regulations: The Federal rules restrict any use of the information to criminally investigate or prosecute any alcohol or drug abuse patient.[facility] HospitalIn the event this information is protected by the Federal Confidentiality of Alcohol and Drug Abuse Patient Records regulations: The Federal rules restrict any use of the information to criminally investigate or prosecute any alcohol or drug abuse patient.[facility] HospitalIn the event this information is protected by the Federal Confidentiality of Alcohol and Drug Abuse Patient Records regulations: The Federal rules restrict any use of the information to criminally investigate or prosecute any alcohol or drug abuse patient.[facility] HospitalIn the event this information is protected by the Federal Confidentiality of Alcohol and Drug Abuse Patient Records regulations: The Federal rules restrict any use of the information to criminally investigate or prosecute any alcohol or drug abuse patient.[facility] HospitalIn the event this information is protected by the Federal Confidentiality of Alcohol and Drug Abuse Patient Records regulations: The Federal rules restrict any use of the information to criminally investigate or prosecute any alcohol or drug abuse patient.[facility] HospitalIn the event this information is protected by the Federal Confidentiality of Alcohol and Drug Abuse Patient Records regulations: The Federal rules restrict any use of the information to criminally investigate or prosecute any alcohol or drug abuse patient.[facility] HospitalIn the event this information is protected by the Federal Confidentiality of Alcohol and Drug Abuse Patient Records regulations: The Federal rules restrict any use of the information to criminally investigate or prosecute any alcohol or drug abuse patient.[facility] HospitalIn the event this information is protected by the Federal Confidentiality of Alcohol and Drug Abuse Patient Records regulations: The Federal rules restrict any use of the information to criminally investigate or prosecute any alcohol or drug abuse patient.[facility] HospitalIn the event this information is protected by the Federal Confidentiality of Alcohol and Drug Abuse Patient Records regulations: The Federal rules restrict any use of the information to criminally investigate or prosecute any alcohol or drug abuse patient.[facility] HospitalIn the event this information is protected by the Federal Confidentiality of Alcohol and Drug Abuse Patient Records regulations: The Federal rules restrict any use of the information to criminally investigate or prosecute any alcohol or drug abuse patient.[facility] HospitalIn the event this information is protected by the Federal Confidentiality of Alcohol and Drug Abuse Patient Records regulations: The Federal rules restrict any use of the information to criminally investigate or prosecute any alcohol or drug abuse patient.[facility] HospitalIn the event this information is protected by the Federal Confidentiality of Alcohol and Drug Abuse Patient Records regulations: The Federal rules restrict any use of the information to criminally investigate or prosecute any alcohol or drug abuse patient.[facility] HospitalIn the event this information is protected by the Federal Confidentiality of Alcohol and Drug Abuse Patient Records regulations: The Federal rules restrict any use of the information to criminally investigate or prosecute any alcohol or drug abuse patient.[facility] HospitalIn the event this information is protected by the Federal Confidentiality of Alcohol and Drug Abuse Patient Records regulations: The Federal rules restrict any use of the information to criminally investigate or prosecute any alcohol or drug abuse patient.[facility] HospitalIn the event this information is protected by the Federal Confidentiality of Alcohol and Drug Abuse Patient Records regulations: The Federal rules restrict any use of the information to criminally investigate or prosecute any alcohol or drug abuse patient.[facility] HospitalIn the event this information is protected by the Federal Confidentiality of Alcohol and Drug Abuse Patient Records regulations: The Federal rules restrict any use of the information to criminally investigate or prosecute any alcohol or drug abuse patient.[facility] HospitalIn the event this information is protected by the Federal Confidentiality of Alcohol and Drug Abuse Patient Records regulations: The Federal rules restrict any use of the information to criminally investigate or prosecute any alcohol or drug abuse patient.[facility] HospitalIn the event this information is protected by the Federal Confidentiality of Alcohol and Drug Abuse Patient Records regulations: The Federal rules restrict any use of the information to criminally investigate or prosecute any alcohol or drug abuse patient.[facility] HospitalIn the event this information is protected by the Federal Confidentiality of Alcohol and Drug Abuse Patient Records regulations: The Federal rules restrict any use of the information to criminally investigate or prosecute any alcohol or drug abuse patient.[facility] HospitalIn the event this information is protected by the Federal Confidentiality of Alcohol and Drug Abuse Patient Records regulations: The Federal rules restrict any use of the information to criminally investigate or prosecute any alcohol or drug abuse patient.[facility] HospitalIn the event this information is protected by the Federal Confidentiality of Alcohol and Drug Abuse Patient Records regulations: The Federal rules restrict any use of the information to criminally investigate or prosecute any alcohol or drug abuse patient.[facility] HospitalIn the event this information is protected by the Federal Confidentiality of Alcohol and Drug Abuse Patient Records regulations: The Federal rules restrict any use of the information to criminally investigate or prosecute any alcohol or drug abuse patient.[facility] HospitalIn the event this information is protected by the Federal Confidentiality of Alcohol and Drug Abuse Patient Records regulations: The Federal rules restrict any use of the information to criminally investigate or prosecute any alcohol or drug abuse patient.[facility] HospitalIn the event this information is protected by the Federal Confidentiality of Alcohol and Drug Abuse Patient Records regulations: The Federal rules restrict any use of the information to criminally investigate or prosecute any alcohol or drug abuse patient.[facility] HospitalIn the event this information is protected by the Federal Confidentiality of Alcohol and Drug Abuse Patient Records regulations: The Federal rules restrict any use of the information to criminally investigate or prosecute any alcohol or drug abuse patient.[facility] HospitalIn the event this information is protected by the Federal Confidentiality of Alcohol and Drug Abuse Patient Records regulations: The Federal rules restrict any use of the information to criminally investigate or prosecute any alcohol or drug abuse patient.[facility] HospitalIn the event this information is protected by the Federal Confidentiality of Alcohol and Drug Abuse Patient Records regulations: The Federal rules restrict any use of the information to criminally investigate or prosecute any alcohol or drug abuse patient.[facility] HospitalIn the event this information is protected by the Federal Confidentiality of Alcohol and Drug Abuse Patient Records regulations: The Federal rules restrict any use of the information to criminally investigate or prosecute any alcohol or drug abuse patient.[facility] HospitalIn the event this information is protected by the Federal Confidentiality of Alcohol and Drug Abuse Patient Records regulations: The Federal rules restrict any use of the information to criminally investigate or prosecute any alcohol or drug abuse patient.[facility] HospitalIn the event this information is protected by the Federal Confidentiality of Alcohol and Drug Abuse Patient Records regulations: The Federal rules restrict any use of the information to criminally investigate or prosecute any alcohol or drug abuse patient.[facility] HospitalIn the event this information is protected by the Federal Confidentiality of Alcohol and Drug Abuse Patient Records regulations: The Federal rules restrict any use of the information to criminally investigate or prosecute any alcohol or drug abuse patient.[facility] HospitalIn the event this information is protected by the Federal Confidentiality of Alcohol and Drug Abuse Patient Records regulations: The Federal rules restrict any use of the information to criminally investigate or prosecute any alcohol or drug abuse patient.[facility] HospitalIn the event this information is protected by the Federal Confidentiality of Alcohol and Drug Abuse Patient Records regulations: The Federal rules restrict any use of the information to criminally investigate or prosecute any alcohol or drug abuse patient.[facility] HospitalIn the event this information is protected by the Federal Confidentiality of Alcohol and Drug Abuse Patient Records regulations: The Federal rules restrict any use of the information to criminally investigate or prosecute any alcohol or drug abuse patient.[facility] HospitalIn the event this information is protected by the Federal Confidentiality of Alcohol and Drug Abuse Patient Records regulations: The Federal rules restrict any use of the information to criminally investigate or prosecute any alcohol or drug abuse patient.[facility] HospitalIn the event this information is protected by the Federal Confidentiality of Alcohol and Drug Abuse Patient Records regulations: The Federal rules restrict any use of the information to criminally investigate or prosecute any alcohol or drug abuse patient.[facility] HospitalIn the event this information is protected by the Federal Confidentiality of Alcohol and Drug Abuse Patient Records regulations: The Federal rules restrict any use of the information to criminally investigate or prosecute any alcohol or drug abuse patient.[facility] HospitalIn the event this information is protected by the Federal Confidentiality of Alcohol and Drug Abuse Patient Records regulations: The Federal rules restrict any use of the information to criminally investigate or prosecute any alcohol or drug abuse patient.[facility] HospitalIn the event this information is protected by the Federal Confidentiality of Alcohol and Drug Abuse Patient Records regulations: The Federal rules restrict any use of the information to criminally investigate or prosecute any alcohol or drug abuse patient.[facility] HospitalIn the event this information is protected by the Federal Confidentiality of Alcohol and Drug Abuse Patient Records regulations: The Federal rules restrict any use of the information to criminally investigate or prosecute any alcohol or drug abuse patient.[facility] HospitalIn the event this information is protected by the Federal Confidentiality of Alcohol and Drug Abuse Patient Records regulations: The Federal rules restrict any use of the information to criminally investigate or prosecute any alcohol or drug abuse patient.[facility] HospitalIn the event this information is protected by the Federal Confidentiality of Alcohol and Drug Abuse Patient Records regulations: The Federal rules restrict any use of the information to criminally investigate or prosecute any alcohol or drug abuse patient.[facility] HospitalIn the event this information is protected by the Federal Confidentiality of Alcohol and Drug Abuse Patient Records regulations: The Federal rules restrict any use of the information to criminally investigate or prosecute any alcohol or drug abuse patient.[facility] HospitalIn the event this information is protected by the Federal Confidentiality of Alcohol and Drug Abuse Patient Records regulations: The Federal rules restrict any use of the information to criminally investigate or prosecute any alcohol or drug abuse patient.[facility] HospitalIn the event this information is protected by the Federal Confidentiality of Alcohol and Drug Abuse Patient Records regulations: The Federal rules restrict any use of the information to criminally investigate or prosecute any alcohol or drug abuse patient.[facility] HospitalIn the event this information is protected by the Federal Confidentiality of Alcohol and Drug Abuse Patient Records regulations: The Federal rules restrict any use of the information to criminally investigate or prosecute any alcohol or drug abuse patient.[facility] HospitalIn the event this information is protected by the Federal Confidentiality of Alcohol and Drug Abuse Patient Records regulations: The Federal rules restrict any use of the information to criminally investigate or prosecute any alcohol or drug abuse patient.[facility] HospitalIn the event this information is protected by the Federal Confidentiality of Alcohol and Drug Abuse Patient Records regulations: The Federal rules restrict any use of the information to criminally investigate or prosecute any alcohol or drug abuse patient.[facility] HospitalIn the event this information is protected by the Federal Confidentiality of Alcohol and Drug Abuse Patient Records regulations: The Federal rules restrict any use of the information to criminally investigate or prosecute any alcohol or drug abuse patient.[facility] HospitalIn the event this information is protected by the Federal Confidentiality of Alcohol and Drug Abuse Patient Records regulations: The Federal rules restrict any use of the information to criminally investigate or prosecute any alcohol or drug abuse patient.[facility] HospitalIn the event this information is protected by the Federal Confidentiality of Alcohol and Drug Abuse Patient Records regulations: The Federal rules restrict any use of the information to criminally investigate or prosecute any alcohol or drug abuse patient.[facility] HospitalIn the event this information is protected by the Federal Confidentiality of Alcohol and Drug Abuse Patient Records regulations: The Federal rules restrict any use of the information to criminally investigate or prosecute any alcohol or drug abuse patient.[facility] HospitalIn the event this information is protected by the Federal Confidentiality of Alcohol and Drug Abuse Patient Records regulations: The Federal rules restrict any use of the information to criminally investigate or prosecute any alcohol or drug abuse patient.[facility] HospitalIn the event this information is protected by the Federal Confidentiality of Alcohol and Drug Abuse Patient Records regulations: The Federal rules restrict any use of the information to criminally investigate or prosecute any alcohol or drug abuse patient.[facility] HospitalIn the event this information is protected by the Federal Confidentiality of Alcohol and Drug Abuse Patient Records regulations: The Federal rules restrict any use of the information to criminally investigate or prosecute any alcohol or drug abuse patient.[facility] HospitalIn the event this information is protected by the Federal Confidentiality of Alcohol and Drug Abuse Patient Records regulations: The Federal rules restrict any use of the information to criminally investigate or prosecute any alcohol or drug abuse patient.[facility] HospitalIn the event this information is protected by the Federal Confidentiality of Alcohol and Drug Abuse Patient Records regulations: The Federal rules restrict any use of the information to criminally investigate or prosecute any alcohol or drug abuse patient.[facility] HospitalIn the event this information is protected by the Federal Confidentiality of Alcohol and Drug Abuse Patient Records regulations: The Federal rules restrict any use of the information to criminally investigate or prosecute any alcohol or drug abuse patient.[facility] HospitalIn the event this information is protected by the Federal Confidentiality of Alcohol and Drug Abuse Patient Records regulations: The Federal rules restrict any use of the information to criminally investigate or prosecute any alcohol or drug abuse patient.[facility] HospitalIn the event this information is protected by the Federal Confidentiality of Alcohol and Drug Abuse Patient Records regulations: The Federal rules restrict any use of the information to criminally investigate or prosecute any alcohol or drug abuse patient.[facility] HospitalIn the event this information is protected by the Federal Confidentiality of Alcohol and Drug Abuse Patient Records regulations: The Federal rules restrict any use of the information to criminally investigate or prosecute any alcohol or drug abuse patient.[facility] HospitalIn the event this information is protected by the Federal Confidentiality of Alcohol and Drug Abuse Patient Records regulations: The Federal rules restrict any use of the information to criminally investigate or prosecute any alcohol or drug abuse patient.[facility] HospitalIn the event this information is protected by the Federal Confidentiality of Alcohol and Drug Abuse Patient Records regulations: The Federal rules restrict any use of the information to criminally investigate or prosecute any alcohol or drug abuse patient.[facility] HospitalIn the event this information is protected by the Federal Confidentiality of Alcohol and Drug Abuse Patient Records regulations: The Federal rules restrict any use of the information to criminally investigate or prosecute any alcohol or drug abuse patient.[facility] HospitalIn the event this information is protected by the Federal Confidentiality of Alcohol and Drug Abuse Patient Records regulations: The Federal rules restrict any use of the information to criminally investigate or prosecute any alcohol or drug abuse patient.[facility] HospitalIn the event this information is protected by the Federal Confidentiality of Alcohol and Drug Abuse Patient Records regulations: The Federal rules restrict any use of the information to criminally investigate or prosecute any alcohol or drug abuse patient.[facility] HospitalIn the event this information is protected by the Federal Confidentiality of Alcohol and Drug Abuse Patient Records regulations: The Federal rules restrict any use of the information to criminally investigate or prosecute any alcohol or drug abuse patient.[facility] HospitalIn the event this information is protected by the Federal Confidentiality of Alcohol and Drug Abuse Patient Records regulations: The Federal rules restrict any use of the information to criminally investigate or prosecute any alcohol or drug abuse patient.[facility] HospitalIn the event this information is protected by the Federal Confidentiality of Alcohol and Drug Abuse Patient Records regulations: The Federal rules restrict any use of the information to criminally investigate or prosecute any alcohol or drug abuse patient.[facility] HospitalIn the event this information is protected by the Federal Confidentiality of Alcohol and Drug Abuse Patient Records regulations: The Federal rules restrict any use of the information to criminally investigate or prosecute any alcohol or drug abuse patient.[facility] HospitalIn the event this information is protected by the Federal Confidentiality of Alcohol and Drug Abuse Patient Records regulations: The Federal rules restrict any use of the information to criminally investigate or prosecute any alcohol or drug abuse patient.[facility] HospitalIn the event this information is protected by the Federal Confidentiality of Alcohol and Drug Abuse Patient Records regulations: The Federal rules restrict any use of the information to criminally investigate or prosecute any alcohol or drug abuse patient.[facility] HospitalIn the event this information is protected by the Federal Confidentiality of Alcohol and Drug Abuse Patient Records regulations: The Federal rules restrict any use of the information to criminally investigate or prosecute any alcohol or drug abuse patient.[facility] HospitalIn the event this information is protected by the Federal Confidentiality of Alcohol and Drug Abuse Patient Records regulations: The Federal rules restrict any use of the information to criminally investigate or prosecute any alcohol or drug abuse patient.[facility] HospitalIn the event this information is protected by the Federal Confidentiality of Alcohol and Drug Abuse Patient Records regulations: The Federal rules restrict any use of the information to criminally investigate or prosecute any alcohol or drug abuse patient.[facility] HospitalIn the event this information is protected by the Federal Confidentiality of Alcohol and Drug Abuse Patient Records regulations: The Federal rules restrict any use of the information to criminally investigate or prosecute any alcohol or drug abuse patient.[facility] HospitalIn the event this information is protected by the Federal Confidentiality of Alcohol and Drug Abuse Patient Records regulations: The Federal rules restrict any use of the information to criminally investigate or prosecute any alcohol or drug abuse patient.[facility] HospitalIn the event this information is protected by the Federal Confidentiality of Alcohol and Drug Abuse Patient Records regulations: The Federal rules restrict any use of the information to criminally investigate or prosecute any alcohol or drug abuse patient.[facility] HospitalIn the event this information is protected by the Federal Confidentiality of Alcohol and Drug Abuse Patient Records regulations: The Federal rules restrict any use of the information to criminally investigate or prosecute any alcohol or drug abuse patient.[facility] HospitalIn the event this information is protected by the Federal Confidentiality of Alcohol and Drug Abuse Patient Records regulations: The Federal rules restrict any use of the information to criminally investigate or prosecute any alcohol or drug abuse patient.[facility] HospitalIn the event this information is protected by the Federal Confidentiality of Alcohol and Drug Abuse Patient Records regulations: The Federal rules restrict any use of the information to criminally investigate or prosecute any alcohol or drug abuse patient.[facility] HospitalIn the event this information is protected by the Federal Confidentiality of Alcohol and Drug Abuse Patient Records regulations: The Federal rules restrict any use of the information to criminally investigate or prosecute any alcohol or drug abuse patient.[facility] HospitalIn the event this information is protected by the Federal Confidentiality of Alcohol and Drug Abuse Patient Records regulations: The Federal rules restrict any use of the information to criminally investigate or prosecute any alcohol or drug abuse patient.[facility] HospitalIn the event this information is protected by the Federal Confidentiality of Alcohol and Drug Abuse Patient Records regulations: The Federal rules restrict any use of the information to criminally investigate or prosecute any alcohol or drug abuse patient.[facility] HospitalIn the event this information is protected by the Federal Confidentiality of Alcohol and Drug Abuse Patient Records regulations: The Federal rules restrict any use of the information to criminally investigate or prosecute any alcohol or drug abuse patient.[facility] HospitalIn the event this information is protected by the Federal Confidentiality of Alcohol and Drug Abuse Patient Records regulations: The Federal rules restrict any use of the information to criminally investigate or prosecute any alcohol or drug abuse patient.[facility] HospitalIn the event this information is protected by the Federal Confidentiality of Alcohol and Drug Abuse Patient Records regulations: The Federal rules restrict any use of the information to criminally investigate or prosecute any alcohol or drug abuse patient.[facility] HospitalIn the event this information is protected by the Federal Confidentiality of Alcohol and Drug Abuse Patient Records regulations: The Federal rules restrict any use of the information to criminally investigate or prosecute any alcohol or drug abuse patient.[facility] HospitalIn the event this information is protected by the Federal Confidentiality of Alcohol and Drug Abuse Patient Records regulations: The Federal rules restrict any use of the information to criminally investigate or prosecute any alcohol or drug abuse patient.[facility] HospitalIn the event this information is protected by the Federal Confidentiality of Alcohol and Drug Abuse Patient Records regulations: The Federal rules restrict any use of the information to criminally investigate or prosecute any alcohol or drug abuse patient.[facility] HospitalIn the event this information is protected by the Federal Confidentiality of Alcohol and Drug Abuse Patient Records regulations: The Federal rules restrict any use of the information to criminally investigate or prosecute any alcohol or drug abuse patient.[facility] HospitalIn the event this information is protected by the Federal Confidentiality of Alcohol and Drug Abuse Patient Records regulations: The Federal rules restrict any use of the information to criminally investigate or prosecute any alcohol or drug abuse patient.[facility] HospitalIn the event this information is protected by the Federal Confidentiality of Alcohol and Drug Abuse Patient Records regulations: The Federal rules restrict any use of the information to criminally investigate or prosecute any alcohol or drug abuse patient.[facility] HospitalIn the event this information is protected by the Federal Confidentiality of Alcohol and Drug Abuse Patient Records regulations: The Federal rules restrict any use of the information to criminally investigate or prosecute any alcohol or drug abuse patient.[facility] HospitalIn the event this information is protected by the Federal Confidentiality of Alcohol and Drug Abuse Patient Records regulations: The Federal rules restrict any use of the information to criminally investigate or prosecute any alcohol or drug abuse patient.[facility] HospitalIn the event this information is protected by the Federal Confidentiality of Alcohol and Drug Abuse Patient Records regulations: The Federal rules restrict any use of the information to criminally investigate or prosecute any alcohol or drug abuse patient.[facility] HospitalIn the event this information is protected by the Federal Confidentiality of Alcohol and Drug Abuse Patient Records regulations: The Federal rules restrict any use of the information to criminally investigate or prosecute any alcohol or drug abuse patient.[facility] HospitalIn the event this information is protected by the Federal Confidentiality of Alcohol and Drug Abuse Patient Records regulations: The Federal rules restrict any use of the information to criminally investigate or prosecute any alcohol or drug abuse patient.[facility] HospitalIn the event this information is protected by the Federal Confidentiality of Alcohol and Drug Abuse Patient Records regulations: The Federal rules restrict any use of the information to criminally investigate or prosecute any alcohol or drug abuse patient.[facility] HospitalIn the event this information is protected by the Federal Confidentiality of Alcohol and Drug Abuse Patient Records regulations: The Federal rules restrict any use of the information to criminally investigate or prosecute any alcohol or drug abuse patient.[facility] HospitalIn the event this information is protected by the Federal Confidentiality of Alcohol and Drug Abuse Patient Records regulations: The Federal rules restrict any use of the information to criminally investigate or prosecute any alcohol or drug abuse patient.[facility] HospitalIn the event this information is protected by the Federal Confidentiality of Alcohol and Drug Abuse Patient Records regulations: The Federal rules restrict any use of the information to criminally investigate or prosecute any alcohol or drug abuse patient.[facility] HospitalIn the event this information is protected by the Federal Confidentiality of Alcohol and Drug Abuse Patient Records regulations: The Federal rules restrict any use of the information to criminally investigate or prosecute any alcohol or drug abuse patient.[facility] HospitalIn the event this information is protected by the Federal Confidentiality of Alcohol and Drug Abuse Patient Records regulations: The Federal rules restrict any use of the information to criminally investigate or prosecute any alcohol or drug abuse patient.[facility] HospitalIn the event this information is protected by the Federal Confidentiality of Alcohol and Drug Abuse Patient Records regulations: The Federal rules restrict any use of the information to criminally investigate or prosecute any alcohol or drug abuse patient.[facility] HospitalIn the event this information is protected by the Federal Confidentiality of Alcohol and Drug Abuse Patient Records regulations: The Federal rules restrict any use of the information to criminally investigate or prosecute any alcohol or drug abuse patient.[facility] HospitalIn the event this information is protected by the Federal Confidentiality of Alcohol and Drug Abuse Patient Records regulations: The Federal rules restrict any use of the information to criminally investigate or prosecute any alcohol or drug abuse patient.[facility] HospitalIn the event this information is protected by the Federal Confidentiality of Alcohol and Drug Abuse Patient Records regulations: The Federal rules restrict any use of the information to criminally investigate or prosecute any alcohol or drug abuse patient.[facility] HospitalIn the event this information is protected by the Federal Confidentiality of Alcohol and Drug Abuse Patient Records regulations: The Federal rules restrict any use of the information to criminally investigate or prosecute any alcohol or drug abuse patient.[facility] HospitalIn the event this information is protected by the Federal Confidentiality of Alcohol and Drug Abuse Patient Records regulations: The Federal rules restrict any use of the information to criminally investigate or prosecute any alcohol or drug abuse patient.[facility] HospitalIn the event this information is protected by the Federal Confidentiality of Alcohol and Drug Abuse Patient Records regulations: The Federal rules restrict any use of the information to criminally investigate or prosecute any alcohol or drug abuse patient.[facility] HospitalIn the event this information is protected by the Federal Confidentiality of Alcohol and Drug Abuse Patient Records regulations: The Federal rules restrict any use of the information to criminally investigate or prosecute any alcohol or drug abuse patient.[facility] HospitalIn the event this information is protected by the Federal Confidentiality of Alcohol and Drug Abuse Patient Records regulations: The Federal rules restrict any use of the information to criminally investigate or prosecute any alcohol or drug abuse patient.[facility] HospitalIn the event this information is protected by the Federal Confidentiality of Alcohol and Drug Abuse Patient Records regulations: The Federal rules restrict any use of the information to criminally investigate or prosecute any alcohol or drug abuse patient.[facility] HospitalIn the event this information is protected by the Federal Confidentiality of Alcohol and Drug Abuse Patient Records regulations: The Federal rules restrict any use of the information to criminally investigate or prosecute any alcohol or drug abuse patient.[facility] HospitalIn the event this information is protected by the Federal Confidentiality of Alcohol and Drug Abuse Patient Records regulations: The Federal rules restrict any use of the information to criminally investigate or prosecute any alcohol or drug abuse patient.[facility] HospitalIn the event this information is protected by the Federal Confidentiality of Alcohol and Drug Abuse Patient Records regulations: The Federal rules restrict any use of the information to criminally investigate or prosecute any alcohol or drug abuse patient.[facility] HospitalIn the event this information is protected by the Federal Confidentiality of Alcohol and Drug Abuse Patient Records regulations: The Federal rules restrict any use of the information to criminally investigate or prosecute any alcohol or drug abuse patient.[facility] HospitalIn the event this information is protected by the Federal Confidentiality of Alcohol and Drug Abuse Patient Records regulations: The Federal rules restrict any use of the information to criminally investigate or prosecute any alcohol or drug abuse patient.[facility] HospitalIn the event this information is protected by the Federal Confidentiality of Alcohol and Drug Abuse Patient Records regulations: The Federal rules restrict any use of the information to criminally investigate or prosecute any alcohol or drug abuse patient.[facility] HospitalIn the event this information is protected by the Federal Confidentiality of Alcohol and Drug Abuse Patient Records regulations: The Federal rules restrict any use of the information to criminally investigate or prosecute any alcohol or drug abuse patient.[facility] HospitalIn the event this information is protected by the Federal Confidentiality of Alcohol and Drug Abuse Patient Records regulations: The Federal rules restrict any use of the information to criminally investigate or prosecute any alcohol or drug abuse patient.[facility] HospitalIn the event this information is protected by the Federal Confidentiality of Alcohol and Drug Abuse Patient Records regulations: The Federal rules restrict any use of the information to criminally investigate or prosecute any alcohol or drug abuse patient.[facility] HospitalIn the event this information is protected by the Federal Confidentiality of Alcohol and Drug Abuse Patient Records regulations: The Federal rules restrict any use of the information to criminally investigate or prosecute any alcohol or drug abuse patient.[facility] HospitalIn the event this information is protected by the Federal Confidentiality of Alcohol and Drug Abuse Patient Records regulations: The Federal rules restrict any use of the information to criminally investigate or prosecute any alcohol or drug abuse patient.[facility] HospitalIn the event this information is protected by the Federal Confidentiality of Alcohol and Drug Abuse Patient Records regulations: The Federal rules restrict any use of the information to criminally investigate or prosecute any alcohol or drug abuse patient.[facility] HospitalIn the event this information is protected by the Federal Confidentiality of Alcohol and Drug Abuse Patient Records regulations: The Federal rules restrict any use of the information to criminally investigate or prosecute any alcohol or drug abuse patient.[facility] HospitalIn the event this information is protected by the Federal Confidentiality of Alcohol and Drug Abuse Patient Records regulations: The Federal rules restrict any use of the information to criminally investigate or prosecute any alcohol or drug abuse patient.[facility] HospitalIn the event this information is protected by the Federal Confidentiality of Alcohol and Drug Abuse Patient Records regulations: The Federal rules restrict any use of the information to criminally investigate or prosecute any alcohol or drug abuse patient.[facility] HospitalIn the event this information is protected by the Federal Confidentiality of Alcohol and Drug Abuse Patient Records regulations: The Federal rules restrict any use of the information to criminally investigate or prosecute any alcohol or drug abuse patient.[facility] HospitalIn the event this information is protected by the Federal Confidentiality of Alcohol and Drug Abuse Patient Records regulations: The Federal rules restrict any use of the information to criminally investigate or prosecute any alcohol or drug abuse patient.[facility] HospitalIn the event this information is protected by the Federal Confidentiality of Alcohol and Drug Abuse Patient Records regulations: The Federal rules restrict any use of the information to criminally investigate or prosecute any alcohol or drug abuse patient.[facility] HospitalIn the event this information is protected by the Federal Confidentiality of Alcohol and Drug Abuse Patient Records regulations: The Federal rules restrict any use of the information to criminally investigate or prosecute any alcohol or drug abuse patient.[facility] HospitalIn the event this information is protected by the Federal Confidentiality of Alcohol and Drug Abuse Patient Records regulations: The Federal rules restrict any use of the information to criminally investigate or prosecute any alcohol or drug abuse patient.[facility] HospitalIn the event this information is protected by the Federal Confidentiality of Alcohol and Drug Abuse Patient Records regulations: The Federal rules restrict any use of the information to criminally investigate or prosecute any alcohol or drug abuse patient.[facility] HospitalIn the event this information is protected by the Federal Confidentiality of Alcohol and Drug Abuse Patient Records regulations: The Federal rules restrict any use of the information to criminally investigate or prosecute any alcohol or drug abuse patient.[facility] HospitalIn the event this information is protected by the Federal Confidentiality of Alcohol and Drug Abuse Patient Records regulations: The Federal rules restrict any use of the information to criminally investigate or prosecute any alcohol or drug abuse patient.[facility] HospitalIn the event this information is protected by the Federal Confidentiality of Alcohol and Drug Abuse Patient Records regulations: The Federal rules restrict any use of the information to criminally investigate or prosecute any alcohol or drug abuse patient.[facility] HospitalIn the event this information is protected by the Federal Confidentiality of Alcohol and Drug Abuse Patient Records regulations: The Federal rules restrict any use of the information to criminally investigate or prosecute any alcohol or drug abuse patient.[facility] HospitalIn the event this information is protected by the Federal Confidentiality of Alcohol and Drug Abuse Patient Records regulations: The Federal rules restrict any use of the information to criminally investigate or prosecute any alcohol or drug abuse patient.[facility] HospitalIn the event this information is protected by the Federal Confidentiality of Alcohol and Drug Abuse Patient Records regulations: The Federal rules restrict any use of the information to criminally investigate or prosecute any alcohol or drug abuse patient.[facility] HospitalIn the event this information is protected by the Federal Confidentiality of Alcohol and Drug Abuse Patient Records regulations: The Federal rules restrict any use of the information to criminally investigate or prosecute any alcohol or drug abuse patient.[facility] HospitalIn the event this information is protected by the Federal Confidentiality of Alcohol and Drug Abuse Patient Records regulations: The Federal rules restrict any use of the information to criminally investigate or prosecute any alcohol or drug abuse patient.[facility] HospitalIn the event this information is protected by the Federal Confidentiality of Alcohol and Drug Abuse Patient Records regulations: The Federal rules restrict any use of the information to criminally investigate or prosecute any alcohol or drug abuse patient.[facility] HospitalIn the event this information is protected by the Federal Confidentiality of Alcohol and Drug Abuse Patient Records regulations: The Federal rules restrict any use of the information to criminally investigate or prosecute any alcohol or drug abuse patient.[facility] HospitalIn the event this information is protected by the Federal Confidentiality of Alcohol and Drug Abuse Patient Records regulations: The Federal rules restrict any use of the information to criminally investigate or prosecute any alcohol or drug abuse patient.[facility] HospitalIn the event this information is protected by the Federal Confidentiality of Alcohol and Drug Abuse Patient Records regulations: The Federal rules restrict any use of the information to criminally investigate or prosecute any alcohol or drug abuse patient.[facility] HospitalIn the event this information is protected by the Federal Confidentiality of Alcohol and Drug Abuse Patient Records regulations: The Federal rules restrict any use of the information to criminally investigate or prosecute any alcohol or drug abuse patient.[facility] HospitalIn the event this information is protected by the Federal Confidentiality of Alcohol and Drug Abuse Patient Records regulations: The Federal rules restrict any use of the information to criminally investigate or prosecute any alcohol or drug abuse patient.[facility] HospitalIn the event this information is protected by the Federal Confidentiality of Alcohol and Drug Abuse Patient Records regulations: The Federal rules restrict any use of the information to criminally investigate or prosecute any alcohol or drug abuse patient.[facility] HospitalIn the event this information is protected by the Federal Confidentiality of Alcohol and Drug Abuse Patient Records regulations: The Federal rules restrict any use of the information to criminally investigate or prosecute any alcohol or drug abuse patient.[facility] HospitalIn the event this information is protected by the Federal Confidentiality of Alcohol and Drug Abuse Patient Records regulations: The Federal rules restrict any use of the information to criminally investigate or prosecute any alcohol or drug abuse patient.[facility] HospitalIn the event this information is protected by the Federal Confidentiality of Alcohol and Drug Abuse Patient Records regulations: The Federal rules restrict any use of the information to criminally investigate or prosecute any alcohol or drug abuse patient.[facility] HospitalIn the event this information is protected by the Federal Confidentiality of Alcohol and Drug Abuse Patient Records regulations: The Federal rules restrict any use of the information to criminally investigate or prosecute any alcohol or drug abuse patient.[facility] HospitalIn the event this information is protected by the Federal Confidentiality of Alcohol and Drug Abuse Patient Records regulations: The Federal rules restrict any use of the information to criminally investigate or prosecute any alcohol or drug abuse patient.[facility] HospitalIn the event this information is protected by the Federal Confidentiality of Alcohol and Drug Abuse Patient Records regulations: The Federal rules restrict any use of the information to criminally investigate or prosecute any alcohol or drug abuse patient.[facility] HospitalIn the event this information is protected by the Federal Confidentiality of Alcohol and Drug Abuse Patient Records regulations: The Federal rules restrict any use of the information to criminally investigate or prosecute any alcohol or drug abuse patient.[facility] HospitalIn the event this information is protected by the Federal Confidentiality of Alcohol and Drug Abuse Patient Records regulations: The Federal rules restrict any use of the information to criminally investigate or prosecute any alcohol or drug abuse patient.[facility] HospitalIn the event this information is protected by the Federal Confidentiality of Alcohol and Drug Abuse Patient Records regulations: The Federal rules restrict any use of the information to criminally investigate or prosecute any alcohol or drug abuse patient.[facility] HospitalIn the event this information is protected by the Federal Confidentiality of Alcohol and Drug Abuse Patient Records regulations: The Federal rules restrict any use of the information to criminally investigate or prosecute any alcohol or drug abuse patient.[facility] HospitalIn the event this information is protected by the Federal Confidentiality of Alcohol and Drug Abuse Patient Records regulations: The Federal rules restrict any use of the information to criminally investigate or prosecute any alcohol or drug abuse patient.[facility] HospitalIn the event this information is protected by the Federal Confidentiality of Alcohol and Drug Abuse Patient Records regulations: The Federal rules restrict any use of the information to criminally investigate or prosecute any alcohol or drug abuse patient.[facility] HospitalIn the event this information is protected by the Federal Confidentiality of Alcohol and Drug Abuse Patient Records regulations: The Federal rules restrict any use of the information to criminally investigate or prosecute any alcohol or drug abuse patient.[facility] HospitalIn the event this information is protected by the Federal Confidentiality of Alcohol and Drug Abuse Patient Records regulations: The Federal rules restrict any use of the information to criminally investigate or prosecute any alcohol or drug abuse patient.[facility] HospitalIn the event this information is protected by the Federal Confidentiality of Alcohol and Drug Abuse Patient Records regulations: The Federal rules restrict any use of the information to criminally investigate or prosecute any alcohol or drug abuse patient.[facility] HospitalIn the event this information is protected by the Federal Confidentiality of Alcohol and Drug Abuse Patient Records regulations: The Federal rules restrict any use of the information to criminally investigate or prosecute any alcohol or drug abuse patient.[facility] HospitalIn the event this information is protected by the Federal Confidentiality of Alcohol and Drug Abuse Patient Records regulations: The Federal rules restrict any use of the information to criminally investigate or prosecute any alcohol or drug abuse patient.[facility] HospitalIn the event this information is protected by the Federal Confidentiality of Alcohol and Drug Abuse Patient Records regulations: The Federal rules restrict any use of the information to criminally investigate or prosecute any alcohol or drug abuse patient.[facility] HospitalIn the event this information is protected by the Federal Confidentiality of Alcohol and Drug Abuse Patient Records regulations: The Federal rules restrict any use of the information to criminally investigate or prosecute any alcohol or drug abuse patient.[facility] HospitalIn the event this information is protected by the Federal Confidentiality of Alcohol and Drug Abuse Patient Records regulations: The Federal rules restrict any use of the information to criminally investigate or prosecute any alcohol or drug abuse patient.[facility] HospitalIn the event this information is protected by the Federal Confidentiality of Alcohol and Drug Abuse Patient Records regulations: The Federal rules restrict any use of the information to criminally investigate or prosecute any alcohol or drug abuse patient.[facility] HospitalIn the event this information is protected by the Federal Confidentiality of Alcohol and Drug Abuse Patient Records regulations: The Federal rules restrict any use of the information to criminally investigate or prosecute any alcohol or drug abuse patient.[facility] HospitalIn the event this information is protected by the Federal Confidentiality of Alcohol and Drug Abuse Patient Records regulations: The Federal rules restrict any use of the information to criminally investigate or prosecute any alcohol or drug abuse patient.[facility] HospitalIn the event this information is protected by the Federal Confidentiality of Alcohol and Drug Abuse Patient Records regulations: The Federal rules restrict any use of the information to criminally investigate or prosecute any alcohol or drug abuse patient.[facility] HospitalIn the event this information is protected by the Federal Confidentiality of Alcohol and Drug Abuse Patient Records regulations: The Federal rules restrict any use of the information to criminally investigate or prosecute any alcohol or drug abuse patient.[facility] HospitalIn the event this information is protected by the Federal Confidentiality of Alcohol and Drug Abuse Patient Records regulations: The Federal rules restrict any use of the information to criminally investigate or prosecute any alcohol or drug abuse patient.[facility] HospitalIn the event this information is protected by the Federal Confidentiality of Alcohol and Drug Abuse Patient Records regulations: The Federal rules restrict any use of the information to criminally investigate or prosecute any alcohol or drug abuse patient.[facility] HospitalIn the event this information is protected by the Federal Confidentiality of Alcohol and Drug Abuse Patient Records regulations: The Federal rules restrict any use of the information to criminally investigate or prosecute any alcohol or drug abuse patient.[facility] HospitalIn the event this information is protected by the Federal Confidentiality of Alcohol and Drug Abuse Patient Records regulations: The Federal rules restrict any use of the information to criminally investigate or prosecute any alcohol or drug abuse patient.[facility] HospitalIn the event this information is protected by the Federal Confidentiality of Alcohol and Drug Abuse Patient Records regulations: The Federal rules restrict any use of the information to criminally investigate or prosecute any alcohol or drug abuse patient.[facility] HospitalIn the event this information is protected by the Federal Confidentiality of Alcohol and Drug Abuse Patient Records regulations: The Federal rules restrict any use of the information to criminally investigate or prosecute any alcohol or drug abuse patient.[facility] HospitalIn the event this information is protected by the Federal Confidentiality of Alcohol and Drug Abuse Patient Records regulations: The Federal rules restrict any use of the information to criminally investigate or prosecute any alcohol or drug abuse patient.[facility] HospitalIn the event this information is protected by the Federal Confidentiality of Alcohol and Drug Abuse Patient Records regulations: The Federal rules restrict any use of the information to criminally investigate or prosecute any alcohol or drug abuse patient.[facility] HospitalIn the event this information is protected by the Federal Confidentiality of Alcohol and Drug Abuse Patient Records regulations: The Federal rules restrict any use of the information to criminally investigate or prosecute any alcohol or drug abuse patient.[facility] HospitalIn the event this information is protected by the Federal Confidentiality of Alcohol and Drug Abuse Patient Records regulations: The Federal rules restrict any use of the information to criminally investigate or prosecute any alcohol or drug abuse patient.[facility] HospitalIn the event this information is protected by the Federal Confidentiality of Alcohol and Drug Abuse Patient Records regulations: The Federal rules restrict any use of the information to criminally investigate or prosecute any alcohol or drug abuse patient.[facility] HospitalIn the event this information is protected by the Federal Confidentiality of Alcohol and Drug Abuse Patient Records regulations: The Federal rules restrict any use of the information to criminally investigate or prosecute any alcohol or drug abuse patient.[facility] HospitalIn the event this information is protected by the Federal Confidentiality of Alcohol and Drug Abuse Patient Records regulations: The Federal rules restrict any use of the information to criminally investigate or prosecute any alcohol or drug abuse patient.[facility] HospitalIn the event this information is protected by the Federal Confidentiality of Alcohol and Drug Abuse Patient Records regulations: The Federal rules restrict any use of the information to criminally investigate or prosecute any alcohol or drug abuse patient.[facility] HospitalIn the event this information is protected by the Federal Confidentiality of Alcohol and Drug Abuse Patient Records regulations: The Federal rules restrict any use of the information to criminally investigate or prosecute any alcohol or drug abuse patient.[facility] HospitalIn the event this information is protected by the Federal Confidentiality of Alcohol and Drug Abuse Patient Records regulations: The Federal rules restrict any use of the information to criminally investigate or prosecute any alcohol or drug abuse patient.[facility] HospitalIn the event this information is protected by the Federal Confidentiality of Alcohol and Drug Abuse Patient Records regulations: The Federal rules restrict any use of the information to criminally investigate or prosecute any alcohol or drug abuse patient.[facility] HospitalIn the event this information is protected by the Federal Confidentiality of Alcohol and Drug Abuse Patient Records regulations: The Federal rules restrict any use of the information to criminally investigate or prosecute any alcohol or drug abuse patient.[facility] HospitalIn the event this information is protected by the Federal Confidentiality of Alcohol and Drug Abuse Patient Records regulations: The Federal rules restrict any use of the information to criminally investigate or prosecute any alcohol or drug abuse patient.[facility] HospitalIn the event this information is protected by the Federal Confidentiality of Alcohol and Drug Abuse Patient Records regulations: The Federal rules restrict any use of the information to criminally investigate or prosecute any alcohol or drug abuse patient.[facility] HospitalIn the event this information is protected by the Federal Confidentiality of Alcohol and Drug Abuse Patient Records regulations: The Federal rules restrict any use of the information to criminally investigate or prosecute any alcohol or drug abuse patient.[facility] HospitalIn the event this information is protected by the Federal Confidentiality of Alcohol and Drug Abuse Patient Records regulations: The Federal rules restrict any use of the information to criminally investigate or prosecute any alcohol or drug abuse patient.[facility] HospitalIn the event this information is protected by the Federal Confidentiality of Alcohol and Drug Abuse Patient Records regulations: The Federal rules restrict any use of the information to criminally investigate or prosecute any alcohol or drug abuse patient.[facility] HospitalIn the event this information is protected by the Federal Confidentiality of Alcohol and Drug Abuse Patient Records regulations: The Federal rules restrict any use of the information to criminally investigate or prosecute any alcohol or drug abuse patient.[facility] HospitalIn the event this information is protected by the Federal Confidentiality of Alcohol and Drug Abuse Patient Records regulations: The Federal rules restrict any use of the information to criminally investigate or prosecute any alcohol or drug abuse patient.[facility] HospitalIn the event this information is protected by the Federal Confidentiality of Alcohol and Drug Abuse Patient Records regulations: The Federal rules restrict any use of the information to criminally investigate or prosecute any alcohol or drug abuse patient.[facility] HospitalIn the event this information is protected by the Federal Confidentiality of Alcohol and Drug Abuse Patient Records regulations: The Federal rules restrict any use of the information to criminally investigate or prosecute any alcohol or drug abuse patient.[facility] HospitalIn the event this information is protected by the Federal Confidentiality of Alcohol and Drug Abuse Patient Records regulations: The Federal rules restrict any use of the information to criminally investigate or prosecute any alcohol or drug abuse patient.[facility] HospitalIn the event this information is protected by the Federal Confidentiality of Alcohol and Drug Abuse Patient Records regulations: The Federal rules restrict any use of the information to criminally investigate or prosecute any alcohol or drug abuse patient.[facility] HospitalIn the event this information is protected by the Federal Confidentiality of Alcohol and Drug Abuse Patient Records regulations: The Federal rules restrict any use of the information to criminally investigate or prosecute any alcohol or drug abuse patient.[facility] HospitalIn the event this information is protected by the Federal Confidentiality of Alcohol and Drug Abuse Patient Records regulations: The Federal rules restrict any use of the information to criminally investigate or prosecute any alcohol or drug abuse patient.[facility] HospitalIn the event this information is protected by the Federal Confidentiality of Alcohol and Drug Abuse Patient Records regulations: The Federal rules restrict any use of the information to criminally investigate or prosecute any alcohol or drug abuse patient.[facility] HospitalIn the event this information is protected by the Federal Confidentiality of Alcohol and Drug Abuse Patient Records regulations: The Federal rules restrict any use of the information to criminally investigate or prosecute any alcohol or drug abuse patient.[facility] HospitalIn the event this information is protected by the Federal Confidentiality of Alcohol and Drug Abuse Patient Records regulations: The Federal rules restrict any use of the information to criminally investigate or prosecute any alcohol or drug abuse patient.[facility] HospitalIn the event this information is protected by the Federal Confidentiality of Alcohol and Drug Abuse Patient Records regulations: The Federal rules restrict any use of the information to criminally investigate or prosecute any alcohol or drug abuse patient.[facility] HospitalIn the event this information is protected by the Federal Confidentiality of Alcohol and Drug Abuse Patient Records regulations: The Federal rules restrict any use of the information to criminally investigate or prosecute any alcohol or drug abuse patient.[facility] HospitalIn the event this information is protected by the Federal Confidentiality of Alcohol and Drug Abuse Patient Records regulations: The Federal rules restrict any use of the information to criminally investigate or prosecute any alcohol or drug abuse patient.[facility] HospitalIn the event this information is protected by the Federal Confidentiality of Alcohol and Drug Abuse Patient Records regulations: The Federal rules restrict any use of the information to criminally investigate or prosecute any alcohol or drug abuse patient.[facility] HospitalIn the event this information is protected by the Federal Confidentiality of Alcohol and Drug Abuse Patient Records regulations: The Federal rules restrict any use of the information to criminally investigate or prosecute any alcohol or drug abuse patient.[facility] HospitalIn the event this information is protected by the Federal Confidentiality of Alcohol and Drug Abuse Patient Records regulations: The Federal rules restrict any use of the information to criminally investigate or prosecute any alcohol or drug abuse patient.[facility] HospitalIn the event this information is protected by the Federal Confidentiality of Alcohol and Drug Abuse Patient Records regulations: The Federal rules restrict any use of the information to criminally investigate or prosecute any alcohol or drug abuse patient.[facility] HospitalIn the event this information is protected by the Federal Confidentiality of Alcohol and Drug Abuse Patient Records regulations: The Federal rules restrict any use of the information to criminally investigate or prosecute any alcohol or drug abuse patient.[facility] HospitalIn the event this information is protected by the Federal Confidentiality of Alcohol and Drug Abuse Patient Records regulations: The Federal rules restrict any use of the information to criminally investigate or prosecute any alcohol or drug abuse patient.[facility] HospitalIn the event this information is protected by the Federal Confidentiality of Alcohol and Drug Abuse Patient Records regulations: The Federal rules restrict any use of the information to criminally investigate or prosecute any alcohol or drug abuse patient.[facility] HospitalIn the event this information is protected by the Federal Confidentiality of Alcohol and Drug Abuse Patient Records regulations: The Federal rules restrict any use of the information to criminally investigate or prosecute any alcohol or drug abuse patient.[facility] HospitalIn the event this information is protected by the Federal Confidentiality of Alcohol and Drug Abuse Patient Records regulations: The Federal rules restrict any use of the information to criminally investigate or prosecute any alcohol or drug abuse patient.[facility] HospitalIn the event this information is protected by the Federal Confidentiality of Alcohol and Drug Abuse Patient Records regulations: The Federal rules restrict any use of the information to criminally investigate or prosecute any alcohol or drug abuse patient.[facility] HospitalIn the event this information is protected by the Federal Confidentiality of Alcohol and Drug Abuse Patient Records regulations: The Federal rules restrict any use of the information to criminally investigate or prosecute any alcohol or drug abuse patient.[facility] HospitalIn the event this information is protected by the Federal Confidentiality of Alcohol and Drug Abuse Patient Records regulations: The Federal rules restrict any use of the information to criminally investigate or prosecute any alcohol or drug abuse patient.[facility] HospitalIn the event this information is protected by the Federal Confidentiality of Alcohol and Drug Abuse Patient Records regulations: The Federal rules restrict any use of the information to criminally investigate or prosecute any alcohol or drug abuse patient.[facility] HospitalIn the event this information is protected by the Federal Confidentiality of Alcohol and Drug Abuse Patient Records regulations: The Federal rules restrict any use of the information to criminally investigate or prosecute any alcohol or drug abuse patient.[facility] HospitalIn the event this information is protected by the Federal Confidentiality of Alcohol and Drug Abuse Patient Records regulations: The Federal rules restrict any use of the information to criminally investigate or prosecute any alcohol or drug abuse patient.[facility] HospitalIn the event this information is protected by the Federal Confidentiality of Alcohol and Drug Abuse Patient Records regulations: The Federal rules restrict any use of the information to criminally investigate or prosecute any alcohol or drug abuse patient.[facility] HospitalIn the event this information is protected by the Federal Confidentiality of Alcohol and Drug Abuse Patient Records regulations: The Federal rules restrict any use of the information to criminally investigate or prosecute any alcohol or drug abuse patient.[facility] HospitalIn the event this information is protected by the Federal Confidentiality of Alcohol and Drug Abuse Patient Records regulations: The Federal rules restrict any use of the information to criminally investigate or prosecute any alcohol or drug abuse patient.[facility] HospitalIn the event this information is protected by the Federal Confidentiality of Alcohol and Drug Abuse Patient Records regulations: The Federal rules restrict any use of the information to criminally investigate or prosecute any alcohol or drug abuse patient.[facility] HospitalIn the event this information is protected by the Federal Confidentiality of Alcohol and Drug Abuse Patient Records regulations: The Federal rules restrict any use of the information to criminally investigate or prosecute any alcohol or drug abuse patient.[facility] HospitalIn the event this information is protected by the Federal Confidentiality of Alcohol and Drug Abuse Patient Records regulations: The Federal rules restrict any use of the information to criminally investigate or prosecute any alcohol or drug abuse patient.[facility] HospitalIn the event this information is protected by the Federal Confidentiality of Alcohol and Drug Abuse Patient Records regulations: The Federal rules restrict any use of the information to criminally investigate or prosecute any alcohol or drug abuse patient.[facility] HospitalIn the event this information is protected by the Federal Confidentiality of Alcohol and Drug Abuse Patient Records regulations: The Federal rules restrict any use of the information to criminally investigate or prosecute any alcohol or drug abuse patient.[facility] HospitalIn the event this information is protected by the Federal Confidentiality of Alcohol and Drug Abuse Patient Records regulations: The Federal rules restrict any use of the information to criminally investigate or prosecute any alcohol or drug abuse patient.[facility] HospitalIn the event this information is protected by the Federal Confidentiality of Alcohol and Drug Abuse Patient Records regulations: The Federal rules restrict any use of the information to criminally investigate or prosecute any alcohol or drug abuse patient.[facility] HospitalIn the event this information is protected by the Federal Confidentiality of Alcohol and Drug Abuse Patient Records regulations: The Federal rules restrict any use of the information to criminally investigate or prosecute any alcohol or drug abuse patient.[facility] HospitalIn the event this information is protected by the Federal Confidentiality of Alcohol and Drug Abuse Patient Records regulations: The Federal rules restrict any use of the information to criminally investigate or prosecute any alcohol or drug abuse patient.[facility] HospitalIn the event this information is protected by the Federal Confidentiality of Alcohol and Drug Abuse Patient Records regulations: The Federal rules restrict any use of the information to criminally investigate or prosecute any alcohol or drug abuse patient.[facility] HospitalIn the event this information is protected by the Federal Confidentiality of Alcohol and Drug Abuse Patient Records regulations: The Federal rules restrict any use of the information to criminally investigate or prosecute any alcohol or drug abuse patient.[facility] HospitalIn the event this information is protected by the Federal Confidentiality of Alcohol and Drug Abuse Patient Records regulations: The Federal rules restrict any use of the information to criminally investigate or prosecute any alcohol or drug abuse patient.[facility] HospitalIn the event this information is protected by the Federal Confidentiality of Alcohol and Drug Abuse Patient Records regulations: The Federal rules restrict any use of the information to criminally investigate or prosecute any alcohol or drug abuse patient.[facility] HospitalIn the event this information is protected by the Federal Confidentiality of Alcohol and Drug Abuse Patient Records regulations: The Federal rules restrict any use of the information to criminally investigate or prosecute any alcohol or drug abuse patient.[facility] HospitalIn the event this information is protected by the Federal Confidentiality of Alcohol and Drug Abuse Patient Records regulations: The Federal rules restrict any use of the information to criminally investigate or prosecute any alcohol or drug abuse patient.[facility] HospitalIn the event this information is protected by the Federal Confidentiality of Alcohol and Drug Abuse Patient Records regulations: The Federal rules restrict any use of the information to criminally investigate or prosecute any alcohol or drug abuse patient.[facility] HospitalIn the event this information is protected by the Federal Confidentiality of Alcohol and Drug Abuse Patient Records regulations: The Federal rules restrict any use of the information to criminally investigate or prosecute any alcohol or drug abuse patient.[facility] HospitalIn the event this information is protected by the Federal Confidentiality of Alcohol and Drug Abuse Patient Records regulations: The Federal rules restrict any use of the information to criminally investigate or prosecute any alcohol or drug abuse patient.[facility] HospitalIn the event this information is protected by the Federal Confidentiality of Alcohol and Drug Abuse Patient Records regulations: The Federal rules restrict any use of the information to criminally investigate or prosecute any alcohol or drug abuse patient.[facility] HospitalIn the event this information is protected by the Federal Confidentiality of Alcohol and Drug Abuse Patient Records regulations: The Federal rules restrict any use of the information to criminally investigate or prosecute any alcohol or drug abuse patient.[facility] HospitalIn the event this information is protected by the Federal Confidentiality of Alcohol and Drug Abuse Patient Records regulations: The Federal rules restrict any use of the information to criminally investigate or prosecute any alcohol or drug abuse patient.[facility] HospitalIn the event this information is protected by the Federal Confidentiality of Alcohol and Drug Abuse Patient Records regulations: The Federal rules restrict any use of the information to criminally investigate or prosecute any alcohol or drug abuse patient.[facility] HospitalIn the event this information is protected by the Federal Confidentiality of Alcohol and Drug Abuse Patient Records regulations: The Federal rules restrict any use of the information to criminally investigate or prosecute any alcohol or drug abuse patient.[facility] HospitalIn the event this information is protected by the Federal Confidentiality of Alcohol and Drug Abuse Patient Records regulations: The Federal rules restrict any use of the information to criminally investigate or prosecute any alcohol or drug abuse patient.[facility] HospitalIn the event this information is protected by the Federal Confidentiality of Alcohol and Drug Abuse Patient Records regulations: The Federal rules restrict any use of the information to criminally investigate or prosecute any alcohol or drug abuse patient.[facility] HospitalIn the event this information is protected by the Federal Confidentiality of Alcohol and Drug Abuse Patient Records regulations: The Federal rules restrict any use of the information to criminally investigate or prosecute any alcohol or drug abuse patient.[facility] HospitalIn the event this information is protected by the Federal Confidentiality of Alcohol and Drug Abuse Patient Records regulations: The Federal rules restrict any use of the information to criminally investigate or prosecute any alcohol or drug abuse patient.[facility] HospitalIn the event this information is protected by the Federal Confidentiality of Alcohol and Drug Abuse Patient Records regulations: The Federal rules restrict any use of the information to criminally investigate or prosecute any alcohol or drug abuse patient.[facility] HospitalIn the event this information is protected by the Federal Confidentiality of Alcohol and Drug Abuse Patient Records regulations: The Federal rules restrict any use of the information to criminally investigate or prosecute any alcohol or drug abuse patient.[facility] HospitalIn the event this information is protected by the Federal Confidentiality of Alcohol and Drug Abuse Patient Records regulations: The Federal rules restrict any use of the information to criminally investigate or prosecute any alcohol or drug abuse patient.[facility] HospitalIn the event this information is protected by the Federal Confidentiality of Alcohol and Drug Abuse Patient Records regulations: The Federal rules restrict any use of the information to criminally investigate or prosecute any alcohol or drug abuse patient.[facility] HospitalIn the event this information is protected by the Federal Confidentiality of Alcohol and Drug Abuse Patient Records regulations: The Federal rules restrict any use of the information to criminally investigate or prosecute any alcohol or drug abuse patient.[facility] HospitalIn the event this information is protected by the Federal Confidentiality of Alcohol and Drug Abuse Patient Records regulations: The Federal rules restrict any use of the information to criminally investigate or prosecute any alcohol or drug abuse patient.[facility] HospitalIn the event this information is protected by the Federal Confidentiality of Alcohol and Drug Abuse Patient Records regulations: The Federal rules restrict any use of the information to criminally investigate or prosecute any alcohol or drug abuse patient.[facility] HospitalIn the event this information is protected by the Federal Confidentiality of Alcohol and Drug Abuse Patient Records regulations: The Federal rules restrict any use of the information to criminally investigate or prosecute any alcohol or drug abuse patient.[facility] HospitalIn the event this information is protected by the Federal Confidentiality of Alcohol and Drug Abuse Patient Records regulations: The Federal rules restrict any use of the information to criminally investigate or prosecute any alcohol or drug abuse patient.[facility] HospitalIn the event this information is protected by the Federal Confidentiality of Alcohol and Drug Abuse Patient Records regulations: The Federal rules restrict any use of the information to criminally investigate or prosecute any alcohol or drug abuse patient.[facility] HospitalIn the event this information is protected by the Federal Confidentiality of Alcohol and Drug Abuse Patient Records regulations: The Federal rules restrict any use of the information to criminally investigate or prosecute any alcohol or drug abuse patient.[facility] HospitalIn the event this information is protected by the Federal Confidentiality of Alcohol and Drug Abuse Patient Records regulations: The Federal rules restrict any use of the information to criminally investigate or prosecute any alcohol or drug abuse patient.[facility] HospitalIn the event this information is protected by the Federal Confidentiality of Alcohol and Drug Abuse Patient Records regulations: The Federal rules restrict any use of the information to criminally investigate or prosecute any alcohol or drug abuse patient.[facility] HospitalIn the event this information is protected by the Federal Confidentiality of Alcohol and Drug Abuse Patient Records regulations: The Federal rules restrict any use of the information to criminally investigate or prosecute any alcohol or drug abuse patient.[facility] HospitalIn the event this information is protected by the Federal Confidentiality of Alcohol and Drug Abuse Patient Records regulations: The Federal rules restrict any use of the information to criminally investigate or prosecute any alcohol or drug abuse patient.[facility] HospitalIn the event this information is protected by the Federal Confidentiality of Alcohol and Drug Abuse Patient Records regulations: The Federal rules restrict any use of the information to criminally investigate or prosecute any alcohol or drug abuse patient.[facility] HospitalIn the event this information is protected by the Federal Confidentiality of Alcohol and Drug Abuse Patient Records regulations: The Federal rules restrict any use of the information to criminally investigate or prosecute any alcohol or drug abuse patient.[facility] HospitalIn the event this information is protected by the Federal Confidentiality of Alcohol and Drug Abuse Patient Records regulations: The Federal rules restrict any use of the information to criminally investigate or prosecute any alcohol or drug abuse patient.[facility] HospitalIn the event this information is protected by the Federal Confidentiality of Alcohol and Drug Abuse Patient Records regulations: The Federal rules restrict any use of the information to criminally investigate or prosecute any alcohol or drug abuse patient.[facility] HospitalIn the event this information is protected by the Federal Confidentiality of Alcohol and Drug Abuse Patient Records regulations: The Federal rules restrict any use of the information to criminally investigate or prosecute any alcohol or drug abuse patient.[facility] HospitalIn the event this information is protected by the Federal Confidentiality of Alcohol and Drug Abuse Patient Records regulations: The Federal rules restrict any use of the information to criminally investigate or prosecute any alcohol or drug abuse patient.[facility] HospitalIn the event this information is protected by the Federal Confidentiality of Alcohol and Drug Abuse Patient Records regulations: The Federal rules restrict any use of the information to criminally investigate or prosecute any alcohol or drug abuse patient.[facility] HospitalIn the event this information is protected by the Federal Confidentiality of Alcohol and Drug Abuse Patient Records regulations: The Federal rules restrict any use of the information to criminally investigate or prosecute any alcohol or drug abuse patient.[facility] HospitalIn the event this information is protected by the Federal Confidentiality of Alcohol and Drug Abuse Patient Records regulations: The Federal rules restrict any use of the information to criminally investigate or prosecute any alcohol or drug abuse patient.[facility] HospitalIn the event this information is protected by the Federal Confidentiality of Alcohol and Drug Abuse Patient Records regulations: The Federal rules restrict any use of the information to criminally investigate or prosecute any alcohol or drug abuse patient.[facility] HospitalIn the event this information is protected by the Federal Confidentiality of Alcohol and Drug Abuse Patient Records regulations: The Federal rules restrict any use of the information to criminally investigate or prosecute any alcohol or drug abuse patient.[facility] HospitalIn the event this information is protected by the Federal Confidentiality of Alcohol and Drug Abuse Patient Records regulations: The Federal rules restrict any use of the information to criminally investigate or prosecute any alcohol or drug abuse patient.[facility] HospitalIn the event this information is protected by the Federal Confidentiality of Alcohol and Drug Abuse Patient Records regulations: The Federal rules restrict any use of the information to criminally investigate or prosecute any alcohol or drug abuse patient.[facility] HospitalIn the event this information is protected by the Federal Confidentiality of Alcohol and Drug Abuse Patient Records regulations: The Federal rules restrict any use of the information to criminally investigate or prosecute any alcohol or drug abuse patient.[facility] HospitalIn the event this information is protected by the Federal Confidentiality of Alcohol and Drug Abuse Patient Records regulations: The Federal rules restrict any use of the information to criminally investigate or prosecute any alcohol or drug abuse patient.[facility] HospitalIn the event this information is protected by the Federal Confidentiality of Alcohol and Drug Abuse Patient Records regulations: The Federal rules restrict any use of the information to criminally investigate or prosecute any alcohol or drug abuse patient.[facility] HospitalIn the event this information is protected by the Federal Confidentiality of Alcohol and Drug Abuse Patient Records regulations: The Federal rules restrict any use of the information to criminally investigate or prosecute any alcohol or drug abuse patient.[facility] HospitalIn the event this information is protected by the Federal Confidentiality of Alcohol and Drug Abuse Patient Records regulations: The Federal rules restrict any use of the information to criminally investigate or prosecute any alcohol or drug abuse patient.[facility] HospitalIn the event this information is protected by the Federal Confidentiality of Alcohol and Drug Abuse Patient Records regulations: The Federal rules restrict any use of the information to criminally investigate or prosecute any alcohol or drug abuse patient.[facility] HospitalIn the event this information is protected by the Federal Confidentiality of Alcohol and Drug Abuse Patient Records regulations: The Federal rules restrict any use of the information to criminally investigate or prosecute any alcohol or drug abuse patient.[facility] HospitalIn the event this information is protected by the Federal Confidentiality of Alcohol and Drug Abuse Patient Records regulations: The Federal rules restrict any use of the information to criminally investigate or prosecute any alcohol or drug abuse patient.[facility] HospitalIn the event this information is protected by the Federal Confidentiality of Alcohol and Drug Abuse Patient Records regulations: The Federal rules restrict any use of the information to criminally investigate or prosecute any alcohol or drug abuse patient.[facility] HospitalIn the event this information is protected by the Federal Confidentiality of Alcohol and Drug Abuse Patient Records regulations: The Federal rules restrict any use of the information to criminally investigate or prosecute any alcohol or drug abuse patient.[facility] HospitalIn the event this information is protected by the Federal Confidentiality of Alcohol and Drug Abuse Patient Records regulations: The Federal rules restrict any use of the information to criminally investigate or prosecute any alcohol or drug abuse patient.[facility] HospitalIn the event this information is protected by the Federal Confidentiality of Alcohol and Drug Abuse Patient Records regulations: The Federal rules restrict any use of the information to criminally investigate or prosecute any alcohol or drug abuse patient.[facility] HospitalIn the event this information is protected by the Federal Confidentiality of Alcohol and Drug Abuse Patient Records regulations: The Federal rules restrict any use of the information to criminally investigate or prosecute any alcohol or drug abuse patient.[facility] HospitalIn the event this information is protected by the Federal Confidentiality of Alcohol and Drug Abuse Patient Records regulations: The Federal rules restrict any use of the information to criminally investigate or prosecute any alcohol or drug abuse patient.[facility] HospitalIn the event this information is protected by the Federal Confidentiality of Alcohol and Drug Abuse Patient Records regulations: The Federal rules restrict any use of the information to criminally investigate or prosecute any alcohol or drug abuse patient.[facility] HospitalIn the event this information is protected by the Federal Confidentiality of Alcohol and Drug Abuse Patient Records regulations: The Federal rules restrict any use of the information to criminally investigate or prosecute any alcohol or drug abuse patient.[facility] HospitalIn the event this information is protected by the Federal Confidentiality of Alcohol and Drug Abuse Patient Records regulations: The Federal rules restrict any use of the information to criminally investigate or prosecute any alcohol or drug abuse patient.[facility] HospitalIn the event this information is protected by the Federal Confidentiality of Alcohol and Drug Abuse Patient Records regulations: The Federal rules restrict any use of the information to criminally investigate or prosecute any alcohol or drug abuse patient.[facility] HospitalIn the event this information is protected by the Federal Confidentiality of Alcohol and Drug Abuse Patient Records regulations: The Federal rules restrict any use of the information to criminally investigate or prosecute any alcohol or drug abuse patient.[facility] HospitalIn the event this information is protected by the Federal Confidentiality of Alcohol and Drug Abuse Patient Records regulations: The Federal rules restrict any use of the information to criminally investigate or prosecute any alcohol or drug abuse patient.[facility] HospitalIn the event this information is protected by the Federal Confidentiality of Alcohol and Drug Abuse Patient Records regulations: The Federal rules restrict any use of the information to criminally investigate or prosecute any alcohol or drug abuse patient.[facility] HospitalIn the event this information is protected by the Federal Confidentiality of Alcohol and Drug Abuse Patient Records regulations: The Federal rules restrict any use of the information to criminally investigate or prosecute any alcohol or drug abuse patient.[facility] HospitalIn the event this information is protected by the Federal Confidentiality of Alcohol and Drug Abuse Patient Records regulations: The Federal rules restrict any use of the information to criminally investigate or prosecute any alcohol or drug abuse patient.[facility] HospitalIn the event this information is protected by the Federal Confidentiality of Alcohol and Drug Abuse Patient Records regulations: The Federal rules restrict any use of the information to criminally investigate or prosecute any alcohol or drug abuse patient.[facility] HospitalIn the event this information is protected by the Federal Confidentiality of Alcohol and Drug Abuse Patient Records regulations: The Federal rules restrict any use of the information to criminally investigate or prosecute any alcohol or drug abuse patient.[facility] HospitalIn the event this information is protected by the Federal Confidentiality of Alcohol and Drug Abuse Patient Records regulations: The Federal rules restrict any use of the information to criminally investigate or prosecute any alcohol or drug abuse patient.[facility] HospitalIn the event this information is protected by the Federal Confidentiality of Alcohol and Drug Abuse Patient Records regulations: The Federal rules restrict any use of the information to criminally investigate or prosecute any alcohol or drug abuse patient.[facility] HospitalIn the event this information is protected by the Federal Confidentiality of Alcohol and Drug Abuse Patient Records regulations: The Federal rules restrict any use of the information to criminally investigate or prosecute any alcohol or drug abuse patient.[facility] HospitalIn the event this information is protected by the Federal Confidentiality of Alcohol and Drug Abuse Patient Records regulations: The Federal rules restrict any use of the information to criminally investigate or prosecute any alcohol or drug abuse patient.[facility] HospitalIn the event this information is protected by the Federal Confidentiality of Alcohol and Drug Abuse Patient Records regulations: The Federal rules restrict any use of the information to criminally investigate or prosecute any alcohol or drug abuse patient.[facility] HospitalIn the event this information is protected by the Federal Confidentiality of Alcohol and Drug Abuse Patient Records regulations: The Federal rules restrict any use of the information to criminally investigate or prosecute any alcohol or drug abuse patient.[facility] HospitalIn the event this information is protected by the Federal Confidentiality of Alcohol and Drug Abuse Patient Records regulations: The Federal rules restrict any use of the information to criminally investigate or prosecute any alcohol or drug abuse patient.[facility] HospitalIn the event this information is protected by the Federal Confidentiality of Alcohol and Drug Abuse Patient Records regulations: The Federal rules restrict any use of the information to criminally investigate or prosecute any alcohol or drug abuse patient.[facility] HospitalIn the event this information is protected by the Federal Confidentiality of Alcohol and Drug Abuse Patient Records regulations: The Federal rules restrict any use of the information to criminally investigate or prosecute any alcohol or drug abuse patient.[facility] HospitalIn the event this information is protected by the Federal Confidentiality of Alcohol and Drug Abuse Patient Records regulations: The Federal rules restrict any use of the information to criminally investigate or prosecute any alcohol or drug abuse patient.[facility] Reason for Visit (unrecogniz ed section and content) Reason Comments Follow Up Specialty Diagnoses / Procedures Referred By Contac t Referred To Contact Diagnoses 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 60 MINUTES Gilbert Ramirez, TWYLA.PAT[employer] [address] [id number] Phone: tel: fax: Referral ID Status Reason Start Date Expiration Date V isits Requested Visits Authorized [id number] Closed PCP Requested Referral 05/27/2025 02/24/2026 1 1 Specialty Diagnoses / Procedures Referred By Contac t Referred To Contact Diagnoses Memory loss Procedures PROVIDER ORDERED FOLLOW UP OFFICE/OUTPATIENT [facility] 60 MINUTES Gilbert Ramirez, TWYLA.[employer] [address] [place] [phone] Phone: tel: fax: Referral ID Status Reason Start Date Expiration Date V isits Requested Visits Authorized [id number] Closed PCP Requested Referral 02/26/2025 11/29/2025 1 1 Reason Comments Zometa Specialty Diagnoses / Procedures Referred By Contac t Referred To Contact Diagnoses Smoldering myeloma Connie Mccain DO [address] [place] [address] [facility] [address] [place] [address] Referral ID Status Reason Start Date Expiration Date V isits Requested Visits Authorized [id number] Authorized 10/26/2022 01/24/2023 99 99 Reason Comments Non-Chemotherapy Treatment Specialty Diagnoses / Procedures Referred By Contac t Referred To Contact Hematology/Oncology / HEMATOLOGY/ONCOLOGY Diagnoses coming in after ov - RESTART QMO ZOMETA/LABS & OV EARLY/AUTH EXP ?* Procedures 1 HR TX Connie Mccain, DO [address] [place] [address] [facility] [address] [place] [address] Referral ID Status Reason Start Date Expiration Date V isits Requested Visits Authorized [id number] Pending Review 10/19/2023 01/17/2024 1 1 Reason Comments New Patient Reason Comments Scheduling Reason Comments Results Reason Comments Orders Reason Comments Results CT A/P. Need MRI altagracia er. Reason Comments Results MRI liver Specialty Diagnoses / Procedures Referred By [facility] t Referred To Contact MR IMAGING Diagnoses Liver mass Abnormal CT of the abdomen Procedures MRI LIVER WO/W IVCON MRI ABDOMEN W/O & W/CONTRAST MATERIAL Connie Mccain DO [address] [place] [address] Mr Imaging Referral ID Status Reason Start Date Expiration Date V isits Requested Visits Authorized [id number] Closed Auto-Generate d Referral 08/30/2022 09/29/2023 1 1 Reason Comments Follow Up Reason Comments Primer Inspector - Other Introduction Reason Comments Established Patient Reason Comments Primer Inspector - Other Treatment Plann ing Reason Comments Appointment Reason Comments Follow Up Zometa start Reason Comments Primer Inspector - Other C1D1 [facility] tment Call Reason Comments Chemotherapy Treatment Specialty Diagnoses / Procedures Referred By [facility] Referred To Contact Diagnoses Multiple myeloma not having achieved remission (HCC) Connie Mccain DO [address] [place] [address] [facility] [address] [place] [address] Referral ID Status Reason Start Date Expiration Date V isits Requested Visits Authorized [id number] Authorized 10/26/2022 01/24/2023 99 99 Reason Comments Primer Inspector - Other Toxicity Check/ Oral Follow-up Reason Comments Refill Request Reason Comments Chemotherapy Treatment Specialty Diagnoses / Procedures [facility] Contact Diagnoses Multiple myeloma not having achieved remission (HCC) Connie Mccain, DO [address] [place] [address] [facility] [address] [place] [address] Reason Comments Pain Reason Comments Established Patient Reason Onset Date Comments Refill Request 12/21/2022 Reason Comments Patient Update Reason Comments Opened In Error Reason Comments New Referred by Dr. Mccain Reason Comments Consent (Observation; Step 1 Only; S1803 ) Reason Comments Established Patient Reason Comments Enrollment Step 1 (S1803) Reason Comments Primer Inspector - Other Symptoms- SOB Reason Comments Patient Question Patient Update Reason Comments Primer Inspector - Other Change in treat ment Reason Comments Social Work Services Reason Comments Results Blood sugar elevated Reason Comments AVS 01/18/23 Reason Comments Primer Inspector - Other Darzalex Educat ion Reason Comments Primer Inspector - Other C1D1 Post Treat ment Call (Darzalex) Reason Comments Medication Problem Results Primer Inspector - Other Question Reason Comments Consult Referral ID Status Reason Start Date Expiration Date Visits Re quested Visits Authorized [id number] Closed 10/26/2022 01/24/2023 99 99 Reason Onset Date Comments Refill Request 03/24/2023 Reason Comments Patient Question Reason Comments Establish Care Reason Comments Spirometry Specialty Diagnoses / Procedures Referred By Contac t Referred To Contact [facility] Diagnoses Multiple myeloma not having achieved remission (HCC) Pre-transplant evaluation for stem cell transplant Procedures LUNG DIFFUSION CAPACITY (DLCO) [place] [address] [place] [address] [facility] [place] [address] [place] [address] Referral ID Status Reason Start Date Expiration Date V isits Requested Visits Authorized [id number] Closed Auto-Generate d Referral 03/30/2023 04/28/2024 1 1 Reason Comments Radio Gen [id number] Reason Comments Informed Consent IRB [phone] Reason Comments Bone Marrow Aspirate/Biopsy Reason Comments Cancer Patient Support Reason Onset Date Comments SPP Injectab Oncology/hematology-Treatment Refer ral 04/28/2023 Zarxio 300mcg/0.5mL Insurance Authorization 04/28/2023 KAELA jenkins Reason Comments Nutrition Telephone Reason Onset Date Comments Refill Request 05/01/2023 Reason Comments Stem Cell Collection Reason Comments Primer Inspector - Other Reason Comments Results Pre admission covid test Reason Comments Research Specialty Diagnoses / Procedures Referred By Contac t Referred To Contact HOSP INPATIENT Diagnoses Multiple myeloma not having achieved remission c90.00 MM Procedures TRNSPLJ AUTOLOGOUS HEMATOPOIETIC CELLS PER DONOR 05/31 Melphalan 8/10 Day of Rest 06/02 [facility] [address] [place] [address] Referral ID Status Reason Start Date Expiration Date Visits Re quested Visits Authorized [id number] 1 1 Reason Comments Primer Inspector - Other Revlimid Questi on Reason Onset Date Comments Opened In Error 06/27/2023 Reason Comments Diarrhea Specialty Diagnoses / Procedures Referred By Contac t Referred To Contact Urology Diagnoses Spermatocele of epididymis, unspecified Procedures CONSULT TO UROLOGY OFFICE/OUTPATIENT [facility] 60-74 MINUTES Earl Simpson MD [address] [place] [address] Referral ID Status Reason Start Date Expiration Date V isits Requested Visits Authorized [id number] Closed PCP Requested Referral 05/18/2023 05/17/2024 1 1 Specialty Diagnoses / Procedures Referred By Contac t Referred To Contact HOSP INPATIENT Diagnoses Multiple myeloma not having achieved remission c90.00 MM Procedures TRNSPLJ AUTOLOGOUS HEMATOPOIETIC CELLS PER DONOR 05/31 Melphalan 8/10 Day of Rest 06/02 [facility] [address] [place] [address] Reason Comments Procedure BMBX Reason Comments Research CTD S1803 Reason Comments Patient Update Research Reason Comments Research Screening Note Step 2 S1803 Reason Onset Date Comments Refill Request 08/21/2023 Reason Comments Revlimid Assistance Specialty Diagnoses / Procedures Referred By Contalyson t Referred To Contact MR IMAGING Diagnoses Smoldering myeloma Procedures MRI CERVICAL SPINE WO/W IVCON MRI SPINAL CANAL CERVICAL W/O & W/CONTR Connie Monk DO [address] [place] [address] [place] [address] Referral ID Status Reason Start Date Expiration Date V isits Requested Visits Authorized [id number] Closed Auto-Generate d Referral 09/09/2022 10/09/2023 1 1 Specialty Diagnoses / Procedures Referred By Contac t Referred To Contact MR IMAGING Diagnoses Smoldering myeloma Procedures MRI LUMBAR SPINE WO/W IVCON MRI SPINAL CANAL LUMBAR W/O & W/CONTR MATRL Connie Mccain, DO [address] [address] [place] [address] Referral ID Status Reason Start Date Expiration Date V isits Requested Visits Authorized [id number] Closed Auto-Generate d Referral 09/09/2022 10/09/2023 1 1 Specialty Diagnoses / Procedures Referred By Contac t Referred To Contact MR IMAGING Diagnoses Smoldering myeloma Procedures MRI THORACIC SPINE WO/W IVCON MRI SPINAL CANAL THORACIC W/O & W/CONTR MATRL Connie Mccain, DO [address] [place] [address] [place] [address] Referral ID Status Reason Start Date Expiration Date V isits Requested Visits Authorized [id number] Closed Auto-Generate d Referral 09/09/2022 10/09/2023 [address] Specialty Diagnoses / Procedures Referred By Contalyson t Referred To Contact CT IMAGING Diagnoses Multiple myeloma not having achieved remission (HCC) Monoclonal gammopathy Secondary systemic amyloidosis (HCC) Procedures CT WHOLE BODY SKULL TO KNEE WO IVCON UNLISTED COMPUTED TOMOGRAPHY PROCEDURE Connie Mccain, DO [address] [place] [address] [place] [address] Referral ID Status Reason Start Date Expiration Date V isits Requested Visits Authorized [id number] Closed Auto-Generate d Referral 08/08/2022 09/07/2023 1 1 Specialty Diagnoses / Procedures Referred By Contac t Referred To Contact CT IMAGING Diagnoses Abnormal CT scan, pelvis Abnormal CT of the abdomen Procedures CT ABD/PEL W IVCON CT ABD & PELVIS W/CONTRAST Connie Mccain, DO [address] [place] [address] Ct Imaging [id number] Referral ID Status Reason Start Date Expiration Date V isits Requested Visits Authorized [id number] Closed Auto-Generate d Referral 08/15/2022 09/14/2023 1 1 Reason Comments Appointment AVS 09/21 Reason Comments Symptoms Reason Comments Imm/Inj Reason Comments Research S1803 C5 Reason Comments New Patient Evaluation Right thigh pain Specialty Diagnoses / Procedures Referred By Contac t Referred To Contact Neurology Diagnoses Right thigh pain Muscle pain Procedures CONSULT TO NEUROLOGY OFFICE/OUTPATIENT NEW HIGH MDM 60 MINUTES Connie Mccain DO [address] [place] [address] Referral ID Status Reason Start Date Expiration Date V isits Requested Visits Authorized [id number] Closed PCP Requested Referral 11/17/2023 11/16/2024 1 1 Reason Comments BLOOD THINNER POLICY Reason Comments PT Eval Specialty Diagnoses / Procedures Referred By Contac t Referred To Contact [facility] Diagnoses Right thigh pain Muscle pain Weakness of right lower extremity Femoral neuropathy of right lower extremity Procedures CONSULT TO PHYSICAL THERAPY PHYSICAL THERAPY EVALUATION HIGH COMPLEX 45 MINS Martha Leone MD [address] [place] [address] [place] [place] [address] Referral ID Status Reason Start Date Expiration Date Visits Requested Visits Authorized [id number] Authorized PCP Requested Referral Auto-Generate d Referral 12/22/2023 12/21/2024 99 99 Reason Comments EMG Instructions Reason Comments Established Patient OV, on clinical tria l. Reason Comments Recheck Specialty Diagnoses / Procedures Referred By Contac t Referred To Contact MR IMAGING Diagnoses Altered mental status, unspecified altered mental status type Multiple myeloma not having achieved remission (HCC) Procedures MRI BRAIN WO/W IVCON MRI BRAIN BRAIN STEM W/O W/CONTRAST MATERIAL Connie Mccain DO [address] [place] [address] [place] [address] Referral ID Status Reason Start Date Expiration Date V isits Requested Visits Authorized [id number] Closed Auto-Generate d Referral 03/07/2024 04/06/2025 1 1 Specialty Diagnoses / Procedures Referred By Contac t Referred To Contact MR IMAGING Diagnoses Schwannoma of nerve of head Multiple myeloma not having achieved remission (HCC) Procedures MRI SKULL BASE WO/W IVCON MRI BRAIN BRAIN STEM W/O W/CONTRAST MATERIAL Connie Mccain, DO [address] [facility] [place] [address] [place] [address] Referral ID Status Reason Start Date Expiration Date V isits Requested Visits Authorized [id number] Closed Auto-Generate d Referral 03/27/2024 04/26/2025 1 1 Reason Comments referral Reason Comments New Patient Specialty Diagnoses / Procedures [facility] Neuro[facility] Diagnoses Multiple myeloma not having achieved remission (HCC) Schwannoma of nerve of head Procedures CONSULT TO NEUROSURGERY OFFICE/OUTPATIENT NEW HIGH MDM 60 MINUTES Connie Mccain, DO [address] [facility] [place] [address] Referral ID Status Reason Start Date Expiration Date V isits Requested Visits Authorized [id number] Closed PCP Requested Referral 04/05/2024 04/04/2025 1 1 Reason Comments Medication Problem Reason Comments New Patient Evaluation Specialty Diagnoses / Procedures [facility] To Contact Neurology Diagnoses Altered mental status, unspecified altered mental status type Multiple myeloma not having achieved remission (HCC) Procedures CONSULT TO NEUROLOGY OFFICE/OUTPATIENT NEW HIGH MDM 60 MINUTES Connie Mccain, DO [address] [facility] [place] [id number] Referral ID Status Reason Start Date Expiration Date V isits Requested Visits Authorized [id number] Closed PCP Requested Referral 03/07/2024 03/07/2025 1 1 Reason Onset Date Comments Refill Request 06/25/2024 Reason Comments Procedure Bmbx Reason Comments Research S1803 CTD 12 Months Reason Onset Date Comments Refill Request 07/23/2024 Reason Comments Results Specialty Diagnoses / Procedures [facility] Referred To Contact MR [facility] Diagnoses Multiple myeloma not having achieved remission (HCC) Schwannoma of nerve of head Procedures MRI BRAIN WO/W IVCON MRI BRAIN BRAIN STEM W/O W/CONTRAST MATERIAL Geoff Young MD [address] [place] [address] [place] [address] Referral ID Status Reason Start Date Expiration Date V isits Requested Visits Authorized [id number] Closed Auto-Generate d Referral 04/09/2024 05/09/2025 1 1 Reason Comments Established Patient Knee Pain Reason Onset Date Comments Refill Request 10/22/2024 Reason Onset Date Comments Refill Request 11/15/2024 Reason Comments Follow Up Reason Comments Follow Up Pain Reason Onset Date Comments Refill Request 11/29/2024 Reason Comments New Patient Evaluation Office visit Specialty Diagnoses / Procedures Referred By Contac t Referred To Contact Neurology Diagnoses Memory loss REM sleep behavior disorder Procedures CONSULT TO NEUROLOGY OFFICE/OUTPATIENT NEW HIGH MDM 60 MINUTES Betsy Kemp PA-C [address] [place] [address] Phone: tel: fax: Referral ID Status Reason Start Date Expiration Date V isits Requested Visits Authorized [id number] Closed PCP Requested Referral 11/19/2024 11/19/2025 1 1 Reason Comments Research S1803 Cycle 18 Specialty Diagnoses / Procedures Referred By Contac t 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 Reason Comments Received Outside Medical Records [employer] Results uploaded into documents Reason Comments Appointment Left message garry pisano scheduling consultation with [facility] social worker masters, [employer]acon number included in voicemail. Reason Comments Research F/U IRB #[id number] Reason Comments Appointment Left voicemail betina mendiola scheduling follow up for both Bradley Ramirez and Kemi Kennedy at 6-8 weeks and 3 months respectively. [employer]acon number was included in message for call back. Reason Comments Medication Request Reason Onset Date Comments Refill Request 02/03/2025 Reason Comments Chemotherapy Follow-up Reason Comments Established Patient Knee Pain Reason Comments Established Patient OV, Zometa today Reason Comments AVS 03/06 Results Reason Comments New Patient Leg Pain Right leg Reason Comments Cardiac Clearance Anticoagulation Reason Comments Patient Question/Prescription Specialty Diagnoses / Procedures Referred By Contac t Referred To Contact Diagnoses Multiple myeloma not having achieved remission (HCC) Connie Mccain, [address] [place] [address] Phone: tel: fax: Connie Mccain, DO [address] [place] [address] Phone: tel: fax: Referral ID Status Reason Start Date Expiration Date V isits Requested Visits Authorized [id number] Authorized 05/29/2025 08/27/2025 99 99 Reason Comments Established Patient Pain Follow Up Reason Comments Anesthesia Consult Reason Comments Presurgical Preparations Reason Comments Preparations For Procedures Reason Comments Pre-Op Teaching Reason Comments Consult surgery on 05/22/25 a t [facility] Teams (unrecognized sec tion and content) Team Status: Active Member Role Status Dates Dr. Connie Lugo MD Primary Care Provider Active Team Status: Active Member Role Status Dates Dr. Connie Lugo MD Primary Care Provi cory, Referring Provider, Other Provider Active Dr. Buddy Craft MD Attending Provider Active Team Status: Inactive Member Role Status Dates Dr. Connie Lugo MD Primary Care Provi cory, Attending Provider, Referring Provider Active Team Status: Inactive Member Role Status Dates Dr. Connie Lugo MD Primary Care Provider Active Dr. Gabriel Howard DO Attending Provider, Emergency P rojohnder Active Hot Pond Operator Relationship Specialty Start Date End Date Connie Lugo MD [address] [facility] [address] [place], [place] [address] PCP - General Family Medicine 08/11/22 Hot Pond Operator Relationship Specialty Start Date End Date Connie Lugo MD [address] [facility] [address] [place] [address] PCP - General Family Medicine 08/11/22 Hot Pond Operator Relationship Specialty Start Date End Date Connie Lugo MD [address] [facility] [address] [place] [address] PCP - General Family Medicine 08/11/22 Hot Pond Operator Relationship Specialty Start Date End Date Connie Lugo MD [address] [facility] [address] [place] [address] PCP - General Family Medicine 08/11/22 Hot Pond Operator Relationship Specialty Start Date End Date Connie Lugo MD [address] [place] [address] [address] [place] [address] PCP - General Family Medicine 08/11/22 Hot Pond Operator Relationship Specialty Start Date End Date Connie Lugo MD [address] [place] [address] [address] [place] [address] PCP - General Family Medicine 08/11/22 Hot Pond Operator Relationship Specialty Start Date End Date Connie Lugo MD [address] [place] [address] [address] [place] [address] PCP - General Family Medicine 08/11/22 Hot Pond Operator Relationship Specialty Start Date End Date Connie Lugo MD [address] [place] [address] [address] [place] [address] PCP - General Family Medicine 08/11/22 Hot Pond Operator Relationship Specialty Start Date End Date Connie Lugo MD [address] [place] [address] [address] [place] [address] PCP - General Family Medicine 08/11/22 Florence Momin, RN Specialty Primer Inspector Hematology/Oncology 10/28/22 Hot Pond Operator Relationship Specialty Start Date End Date Connie Lugo MD [address] [place] [address] [address] [place] [address] PCP - General Family Medicine 08/11/22 Hot Pond Operator Relationship Specialty Start Date End Date Connie Lugo MD [address] [place] [address] [address] [place] [address] PCP - General Family Medicine 08/11/22 Florence Momin RN Specialty Primer Inspector Hematology/Oncology 10/28/22 Hot Pond Operator Relationship Specialty Start Date End Date Connie Lugo MD [address] [place] [address] [address] [place] [address] PCP - General Family Medicine 08/11/22 Florence Momin RN Specialty Primer Inspector Hematology/Oncology 10/28/22 Hot Pond Operator Relationship Specialty Start Date End Date Connie Lugo MD [address] [place] [address] [address] [place] [address] PCP - General Family Medicine 08/11/22 Florence Momin RN Specialty Primer Inspector Hematology/Oncology 10/28/22 Hot Pond Operator Relationship Specialty Start Date End Date Connie Lugo MD [address] [place] [address] [address] [place] [address] PCP - General Family Medicine 08/11/22 Florence Momin RN Specialty Primer Inspector Hematology/Oncology 10/28/22 Hot Pond Operator Relationship Specialty Start Date End Date Connie Lugo MD [address] [place] [address] [address] [place] [address] PCP - General Family Medicine 08/11/22 Florence Momin RN Specialty Primer Inspector Hematology/Oncology 10/28/22 Hot Pond Operator Relationship Specialty Start Date End Date Connie Lugo MD [address] [place] [address] [address] [place] [address] PCP - General Family Medicine 08/11/22 Florence Momin RN Specialty Primer Inspector Hematology/Oncology 10/28/22 Hot Pond Operator Relationship Specialty Start Date End Date Connie Lugo MD [address] [place] [address] [address] [place] [address] PCP - General Family Medicine 08/11/22 Florence Momin RN Specialty Primer Inspector Hematology/Oncology 10/28/22 Hot Pond Operator Relationship Specialty Start Date End Date Connie Lugo MD [address] [place] [address] [address] [place] [address] PCP - General Family Medicine 08/11/22 Florence Momin RN Specialty Primer Inspector Hematology/Oncology 10/28/22 Hot Pond Operator Relationship Specialty Start Date End Date Connie Lugo MD [address] [place] [address] [address] [place] [address] PCP - General Family Medicine 08/11/22 Florence Momin RN Specialty Primer Inspector Hematology/Oncology 10/28/22 Team Status: Inactive Member Role Status Dates Dr. Connie Lugo MD Primary Care Provider, Referring Provider Active Dr. Leno Quigley DO Attending Provider Active Team Status: Active Member Role Status Dates Dr. Connie Lugo MD Primary Care Provider, Referring Provider Active Dr. Leno Quigley DO Attending Provider, Other Prov ider Active Team Status: Inactive Member Role Status Dates Dr. Connie Lugo MD Primary Care Provider Active Dr. Gabriel Howard DO Emergency Provider Active Hot Pond Operator Relationship Specialty Start Date End Date Connie Lugo MD [address] [place] [address] [address] [place] [address] PCP - General Family Medicine 08/11/22 Florence Momin RN Specialty Primer Inspector Hematology/Oncology 10/28/22 Hot Pond Operator Relationship Specialty Start Date End Date Connie Lugo MD [address] [place] [address] [address] [place] [address] PCP - General Family Medicine 08/11/22 Florence Momin RN Specialty Primer Inspector Hematology/Oncology 10/28/22 Hot Pond Operator Relationship Specialty Start Date End Date Connie Lugo MD [address] [place] [address] [address] [place] [address] PCP - General Family Medicine 08/11/22 Florence Momin RN Specialty Primer Inspector Hematology/Oncology 10/28/22 Hot Pond Operator Relationship Specialty Start Date End Date Connie Lugo MD [address] [place] [address] [address] [place] [address] PCP - General Family Medicine 08/11/22 Florence Momin, RN Specialty Primer Inspector Hematology/Oncology 10/28/22 Leno Quigley, DO [address] [place] [address] Gastroenterology 01/03/23 Ivet Colin, [facility] [address] Orthopedics 01/03/23 Hot Pond Operator Relationship Specialty Start Date End Date Connie Lugo MD [address] [place] [address] [address] [place] [address] PCP - General Family Medicine 08/11/22 Florence Momin RN Specialty Primer Inspector Hematology/Oncology 10/28/22 Leno Quigley, DO [address] [facility] [address] [place] [address] Gastroenterology 01/03/23 Ivet Colin, [address] [address] Orthopedics 01/03/23 Hot Pond Operator Relationship Specialty Start Date End Date Connie Lugo MD [address] [place] [address] [address] [place] [address] PCP - General Family Medicine 08/11/22 Florence Momin, RN Specialty Primer Inspector Hematology/Oncology 10/28/22 Leno Quigley, DO [address] [facility] [address] [place] [address] Gastroenterology 01/03/23 Ivet Colin [facility] [address] Orthopedics 01/03/23 Team Status: Inactive Member Role Status Dates Dr. Connie Lugo MD Primary Care Provider Active Dr. Ivet Colin DO Attending Provider Acti ve Hot Pond Operator Relationship Specialty Start Date End Date Connie Lugo MD [address] [facility] [address] [place] [address] PCP - General Family Medicine 08/11/22 Florence Momin RN Specialty Primer Inspector Hematology/Oncology 10/28/22 Leno Quigley DO [address] [facility] [address] [place] [address] Gastroenterology 01/03/23 Ivet Colin DO [address] [place] [address] Orthopedics 01/03/23 Team Status: Active Member Role Status Dates Dr. Connie Lugo MD Primary Care Provider Active Dr. Nico Kerr MD Emergency Provider Active Dr. Kezia Ko MD Admit Provider, Attending Provid er Active Team Status: Active Member Role Status Dates Dr. Connie Lugo MD Primary Care Provider Active Dr. Buddy Craft MD Attending Provider Active Team Status: Inactive Member Role Status Dates Dr. Connie Lugo MD Primary Care Provider Active Dr. Nico Kerr MD Emergency Provider Active Dr. Kezia Ko MD Admit Provider, Attending Provid er Active Hot Pond Operator Relationship Specialty Start Date End Date Connie Lugo MD [address] [facility] [address] [place] [address] PCP - General Family Medicine 08/11/22 Florence Momin, LATIA Specialty Primer Inspector Hematology/Oncology 10/28/22 Leno Quigley DO [address] [facility] [address] [place] [address] Gastroenterology 01/03/23 Ivet Colin DO [address] [place] [address] Orthopedics 01/03/23 Hot Pond Operator Relationship Specialty Start Date End Date Connie Lugo MD [address] [facility] [address] [place] [address] PCP - General Family Medicine 08/11/22 Florence Momin, RN Specialty Primer Inspector Hematology/Oncology 10/28/22 Leno Quigley, DO [address] [place] [address] Gastroenterology 01/03/23 Ivet Colin, [address] [place] [address] Orthopedics 01/03/23 Hot Pond Operator Relationship Specialty Start Date End Date Connie Lugo MD [address] [facility] [address] [place] [address] PCP - General Family Medicine 08/11/22 Florence Momin RN Specialty Primer Inspector Hematology/Oncology 10/28/22 Leno Quigley, DO [address] [place] [address] Gastroenterology 01/03/23 Ivet Colin [address] [place] [address] Orthopedics 01/03/23 Hot Pond Operator Relationship Specialty Start Date End Date Connie Lugo MD [address] [facility] [address] [place] [address] PCP - General Family Medicine 08/11/22 Florence Momin, RN Specialty Primer Inspector Hematology/Oncology 10/28/22 Leno Quigley, DO [address] [place] [address] Gastroenterology 01/03/23 Ivet Colin DO [address] [place] [address] Orthopedics 01/03/23 Hot Pond Operator Relationship Specialty Start Date End Date Connie Lugo MD [address] [facility] [address] [place] [address] PCP - General Family Medicine 08/11/22 Florence Momin, RN Specialty Primer Inspector Hematology/Oncology 10/28/22 Leno Quigley, DO [address] [place] [address] Gastroenterology 01/03/23 Ivet Colin DO [address] [place] [address] Orthopedics 01/03/23 Hot Pond Operator Relationship Specialty Start Date End Date Connie Lugo MD [address] [facility] [address] [place] [address] PCP - General Family Medicine 08/11/22 Florence Momin, RN Specialty Primer Inspector Hematology/Oncology 10/28/22 Leno Quigley, DO [address] [place] [address] Gastroenterology 01/03/23 Ivet Colin DO [address] [place] [address] Orthopedics 01/03/23 Team Status: Active Member Role Status Dates Dr. Connie Lugo MD Primary Care Provider Active Dr. Nico Kerr MD Emergency Provider Active Dr. Kezia Ko MD Admit Provider, Attending Provid er, Other Provider Active Team Status: Inactive Member Role Status Dates Dr. Connie Lugo MD Primary Care Provider Active Dr. Connie Mccain DO Attending Provider, Referring Prov ider Active Hot Pond Operator Relationship Specialty Start Date End Date Connie Lugo MD [address] [facility] [address] [place] [address] PCP - General Family Medicine 08/11/22 Florence Momin, RN Specialty Primer Inspector Hematology/Oncology 10/28/22 Leno Quigley, DO [address] [place] [address] Gastroenterology 01/03/23 Ivet Colin DO [address] [place] [address] Orthopedics 01/03/23 Nidhi Bowser V [address] [place] [id number] Internal Medicine 01/31/23 Hot Pond Operator Relationship Specialty Start Date End Date Connie Lugo MD [address] [facility] [address] [facility] [address] [place] [address] PCP - General Family Medicine 08/11/22 Florence Momin RN Specialty Primer Inspector Hematology/Oncology 10/28/22 Leno Quigley, [address] [facility] [address] [place] [address] Gastroenterology 01/03/23 Ivet Colin DO [facility] [place] [place] [address] Orthopedics 01/03/23 Nidhi Bowser V [address] [place] [address] Internal Medicine 01/31/23 Hot Pond Operator Relationship Specialty Start Date End Date Connie Lugo MD [address] [facility] [address] [facility] [address] [place] [address] PCP - General Family Medicine 08/11/22 Florence Momin RN Specialty Primer Inspector Hematology/Oncology 10/28/22 Leno Quigley, DO [address] [place] [address] Gastroenterology 01/03/23 Ivet Colin [facility] [address] Orthopedics 01/03/23 Nidhi Boswer V [address] [place] [address] Internal Medicine 01/31/23 Hot Pond Operator Relationship Specialty Start Date End Date Connie Lugo MD [address] [place] [address] PCP - General Family Medicine 08/11/22 Florence Momin RN Specialty Primer Inspector Hematology/Oncology 10/28/22 Leno Quigley, DO [address] [place] [address] Gastroenterology 01/03/23 Ivet Colin DO [facility] [place] [address] Orthopedics 01/03/23 Nidhi Bowser V [address] [place] [address] Internal Medicine 01/31/23 Hot Pond Operator Relationship Specialty Start Date End Date Connie Lugo MD [address] [place] [address] PCP - General Family Medicine 08/11/22 Florence Momin, RN Specialty Primer Inspector Hematology/Oncology 10/28/22 Leno Quigley, DO [address] [place] [address] Gastroenterology 01/03/23 Ivet Colin, DO [address] [place] [address] Orthopedics 01/03/23 Nidhi Bowser V [address] [facility] [place] [address] Internal Medicine 01/31/23 Hot Pond Operator Relationship Specialty Start Date End Date Connie Lugo MD [address] [facility] [address] [place] [address] PCP - General Family Medicine 08/11/22 Florence Momin, RN Specialty Primer Inspector Hematology/Oncology 10/28/22 Leno Quigley DO [address] [place] [address] Gastroenterology 01/03/23 Ivet Colin DO [address] [place] [address] Orthopedics 01/03/23 Nidhi Bowser V [address] [facility] [place] [address] Internal Medicine 01/31/23 Hot Pond Operator Relationship Specialty Start Date End Date Connie Lugo MD 128 [facility] AMI [address] [place] [address] PCP - General Family Medicine 08/11/22 Florence Momin, RN Specialty Primer Inspector Hematology/Oncology 10/28/22 Leno Quigley DO [address] [place] [address] Gastroenterology 01/03/23 Ivet Colin DO [address] [place] [address] Orthopedics 01/03/23 Nidhi Bowser V [address] E [facility] [place] [address] Internal Medicine 01/31/23 Hot Pond Operator Relationship Specialty Start Date End Date Connie Lugo MD [address] [facility] [address] [place] [address] PCP - General Family Medicine 08/11/22 Florence Momin, RN Specialty Primer Inspector Hematology/Oncology 10/28/22 Leno Quigley, DO [address] [facility] [address] [place] [address] Gastroenterology 01/03/23 Ivet Colin, [address] [address] Orthopedics 01/03/23 Nidhi Bowser V [address] [facility] [address] Internal Medicine 01/31/23 Hot Pond Operator Relationship Specialty Start Date End Date Connie Lugo MD 128 [facility] [address] [place] [address] PCP - General Family Medicine 08/11/22 Florence Momin, RN Specialty Primer Inspector Hematology/Oncology 10/28/22 Leno Quigley, DO [address] [facility] [address] [place] [address] Gastroenterology 01/03/23 Ivet Colin [address] [address] Orthopedics 01/03/23 Nidhi Bowser V [address] E [facility] [place] [address] Internal Medicine 01/31/23 Hot Pond Operator Relationship Specialty Start Date End Date Connie Lugo MD 128 [facility] [address] [place] [address] PCP - General Family Medicine 08/11/22 Florence Momin, RN Specialty Primer Inspector Hematology/Oncology 10/28/22 Leno Quigley, DO [address]I [address] [place] [address] Gastroenterology 01/03/23 Ivet Colin, [address] [place] [address] Orthopedics 01/03/23 Nidhi Bowser V [address] [facility] [place] [address] Internal Medicine 01/31/23 Hot Pond Operator Relationship Specialty Start Date End Date Connie Lugo MD 128 [facility] [address] [place] [address] PCP - General Family Medicine 08/11/22 Florence Momin, RN Specialty Primer Inspector Hematology/Oncology 10/28/22 Leno Quigley, DO [address]I [address] [place] [address] Gastroenterology 01/03/23 Ivet Colin [facility] [address] Orthopedics 01/03/23 Nidhi Bowser V [address] [place] [address] Internal Medicine 01/31/23 Hot Pond Operator Relationship Specialty Start Date End Date Connie Lugo MD 128 [facility] [address] [place] [address] PCP - General Family Medicine 08/11/22 Florence Momin, RN Specialty Primer Inspector Hematology/Oncology 10/28/22 Leno Quigley DO [address] [place] [address] Gastroenterology 01/03/23 Ivet Colin, DO [address] [place] [address] Orthopedics 01/03/23 Nidhi Bowser V [address] E [facility] [place] [address] Internal Medicine 01/31/23 Hot Pond Operator Relationship Specialty Start Date End Date Connie Lugo MD [address] [facility] [address] [place] [address] PCP - General Family Medicine 08/11/22 Florence Momin RN Specialty Primer Inspector Hematology/Oncology 10/28/22 Leno Quigley DO [address] [place] [address] Gastroenterology 01/03/23 Ivet Colin, DO [address] [place] [address] Orthopedics 01/03/23 Nidhi Bowser V [address] [place] [address] Internal Medicine 01/31/23 Hot Pond Operator Relationship Specialty Start Date End Date Connie Lugo MD 128 [facility] [place] AMI [address] [place] [address] PCP - General Family Medicine 08/11/22 Florence Momin RN Specialty Primer Inspector Hematology/Oncology 10/28/22 Friend, Leno B, DO [address]I [address] [place] [address] Gastroenterology 01/03/23 Ivet Colin DO [address] [place] [address] Orthopedics 01/03/23 Nidhi Bowser V [address] [facility] [place] [address] Internal Medicine 01/31/23 Hot Pond Operator Relationship Specialty Start Date End Date Connie Lugo MD [address] [facility] [address] [place] [address] PCP - General Family Medicine 08/11/22 Florence Momin RN Specialty Primer Inspector Hematology/Oncology 10/28/22 Leno Quigley, DO [address] [place] [address] Gastroenterology 01/03/23 Ivet Colin DO 0 [place] [address] Orthopedics 01/03/23 Nidhi Bowser, Steve [address] [facility] [place] [address] Internal Medicine 01/31/23 Hot Pond Operator Relationship Specialty Start Date End Date Connie Lugo MD 128 [facility] [place] AMI [address] [place] [address] PCP - General Family Medicine 08/11/22 Florence Momin, LATIA Specialty Primer Inspector Hematology/Oncology 10/28/22 Leno Quigley, DO [address]I [address] [place] [address] Gastroenterology 01/03/23 vIet Colin DO [address] [place] [address] Orthopedics 01/03/23 Nidhi Bowser V [address] [facility] [place] [address] Internal Medicine 01/31/23 Hot Pond Operator Relationship Specialty Start Date End Date Connie Lugo MD [address] [facility] [address] [place] [address] PCP - General Family Medicine 08/11/22 Florence Momin, RN Specialty Primer Inspector Hematology/Oncology 10/28/22 Leno Quigley DO [address] [place] [address] Gastroenterology 01/03/23 Ivet Colin DO [address] [place] [address] Orthopedics 01/03/23 Nidhi Bowser V [address] [facility] [place] [address] Internal Medicine 01/31/23 Hot Pond Operator Relationship Specialty Start Date End Date Connie Lugo MD [address] [facility] [address] [place] [address] PCP - General Family Medicine 08/11/22 Florence Momin, RN Specialty Primer Inspector Hematology/Oncology 10/28/22 Leno Quigley DO [address] [place] [address] Gastroenterology 01/03/23 Ivet Colin DO [address] [place] [address] Orthopedics 01/03/23 Nidhi Bowser V [address] [facility] [place] [address] Internal Medicine 01/31/23 Hot Pond Operator Relationship Specialty Start Date End Date Connie Lugo MD [address] [facility] [address] [place] [address] PCP - General Family Medicine 08/11/22 Florence Momin, RN Specialty Primer Inspector Hematology/Oncology 10/28/22 Leno Quigley, DO [address] [facility] [address] [place] [address] Gastroenterology 01/03/23 Ivet Colin DO [facility] [place] [address] Orthopedics 01/03/23 Nidhi Bowser V [address] [facility] [address] Internal Medicine 01/31/23 Hot Pond Operator Relationship Specialty Start Date End Date Connie Lugo MD [address] [facility] [address] [place] [address] PCP - General Family Medicine 08/11/22 Florence Momin, RN Specialty Primer Inspector Hematology/Oncology 10/28/22 Leno Quigley DO [address] [facility] [address] [place] [address] Gastroenterology 01/03/23 Ivet Colin DO [facility] [place] [address] Orthopedics 01/03/23 Nidhi Bowser V [address] E [facility] [place] [address] Internal Medicine 01/31/23 Hot Pond Operator Relationship Specialty Start Date End Date Connie Lugo MD [address] [facility] [address] [place] [address] PCP - General Family Medicine 08/11/22 Florence Momin, RN Specialty Primer Inspector Hematology/Oncology 10/28/22 Leno Quigley, DO [address]I [address] [place] [address] Gastroenterology 01/03/23 Ivet Colin DO [address] [place] [address] Orthopedics 01/03/23 Nidhi Bowser V [address] [facility] [place] [address] Internal Medicine 01/31/23 Hot Pond Operator Relationship Specialty Start Date End Date Connie Lugo MD 128 [facility] [address] [place] [address] PCP - General Family Medicine 08/11/22 Florence Momin, RN Specialty Primer Inspector Hematology/Oncology 10/28/22 Leno Quigley, DO [address] [place] [address] Gastroenterology 01/03/23 Ivet Colin DO [address] [place] [address] Orthopedics 01/03/23 Nidhi Bowser V [address] [facility] [place] [address] Internal Medicine 01/31/23 Hot Pond Operator Relationship Specialty Start Date End Date Connie Lugo MD [address] [facility] [address] [place] [address] PCP - General Family Medicine 08/11/22 Florence Momin, RN Specialty Primer Inspector Hematology/Oncology 10/28/22 Leno Quigley, DO [address] [facility] [address] [place] [address] Gastroenterology 01/03/23 Ivet Colin, DO [address] [place] [address] Orthopedics 01/03/23 Nidhi Bowser V [address] [place] [address] Internal Medicine 01/31/23 Maira Herrera LISW [address] [place], [place] [id number] Resident Doctor Blood and Marrow Transplant 04/19/23 Hot Pond Operator Relationship Specialty Start Date End Date Connie Lugo MD [address] [facility] [address] [place] [address] PCP - General Family Medicine 08/11/22 Florence Momin, LATIA Specialty Primer Inspector Hematology/Oncology 10/28/22 Leno Quigley, DO [address] [facility] [address] [place] [address] Gastroenterology 01/03/23 Ivet Colin, DO [address] [place] [address] Orthopedics 01/03/23 Nidhi Bowser V [address] E [facility] [place] [address] Internal Medicine 01/31/23 Maira Herrera LISW [address] [place], [place] [address] Resident Doctor Blood and Marrow Transplant 04/19/23 Hot Pond Operator Relationship Specialty Start Date End Date Connie Lugo MD [address] [place] [address] PCP - General Family Medicine 08/11/22 Florence Momin, RN Specialty Primer Inspector Hematology/Oncology 10/28/22 Leno Quigley, DO [address]avinia [facility] [address] [place] [address] Gastroenterology 01/03/23 Ivet Colin DO [address] [place] [address] Orthopedics 01/03/23 Nidhi Bowser V [address] E [facility] [place] [address] Internal Medicine 01/31/23 Maira Herrera LISW [address] [place] [address] Resident Doctor Blood and Marrow Transplant 04/19/23 Hot Pond Operator Relationship Specialty Start Date End Date Connie Lugo MD [address] [facility] [address] [place] [address] PCP - General Family Medicine 08/11/22 Florence Momin, RN Specialty Primer Inspector Hematology/Oncology 10/28/22 Leno Quigley, DO [address] [facility] [address] [place] [address] Gastroenterology 01/03/23 Ivet Colin DO [address] [place] [address] Orthopedics 01/03/23 Nidhi Bowser V [address] E [facility] [place] [address] Internal Medicine 01/31/23 Hot Pond Operator Relationship Specialty Start Date End Date Connie Lugo MD 128 [facility] [address] [place] [address] PCP - General Family Medicine 08/11/22 Florence Momin, RN Specialty Primer Inspector Hematology/Oncology 10/28/22 Leno Quigley, DO [address] [facility] [address] [place] [address] Gastroenterology 01/03/23 Ivet Colin DO [facility] [place] [address] Orthopedics 01/03/23 Nidhi Bowser V [address] [facility] [place] [address] Internal Medicine 01/31/23 Maira Herrera LISW [address] [place], [place] [id number] Resident Doctor Blood and Marrow Transplant 04/19/23 Hot Pond Operator Relationship Specialty Start Date End Date Connie Lugo MD [address] [place] [facility] [address] [place] [address] PCP - General Family Medicine 08/11/22 Florence Momin RN Specialty Primer Inspector Hematology/Oncology 10/28/22 Leno Quigley, DO 176 [facility] [address] [place] [address] Gastroenterology 01/03/23 Ivet Colin DO [facility] [place] [address] Orthopedics 01/03/23 Nidhi Bowser V [address] [place]JO [facility] [place] [address] Internal Medicine 01/31/23 Maira Herrera LISW [address] [place] [address] Resident Doctor Blood and Marrow Transplant 04/19/23 Hot Pond Operator Relationship Specialty Start Date End Date Connie Lugo MD 128 [facility] [address] [place] [address] PCP - General Family Medicine 08/11/22 Florence Momin, RN Specialty Primer Inspector Hematology/Oncology 10/28/22 Leno Quigley, DO 176 [facility] [address] [place] [address] Gastroenterology 01/03/23 Ivet Colin DO [address] [place] [address] Orthopedics 01/03/23 Nidhi Bowser V [address] [facility] [address] Internal Medicine 01/31/23 Maira Herrera LISW [address] [place] [address] Resident Doctor Blood and Marrow Transplant 04/19/23 Hot Pond Operator Relationship Specialty Start Date End Date Connie Lugo MD [address] [facility] [address] [place] [address] PCP - General Family Medicine 08/11/22 Florence Momin, RN Specialty Primer Inspector Hematology/Oncology 10/28/22 Leno Quigley, DO [address] [facility] [address] [place] [address] Gastroenterology 01/03/23 Ivet Colin DO [address] [place] [address] Orthopedics 01/03/23 Nidhi Bowser V [address] E [facility] [place] [address] Internal Medicine 01/31/23 Maira Herrera LISW [address] [place], [place] [id number] Resident Doctor Blood and Marrow Transplant 04/19/23 Hot Pond Operator Relationship Specialty Start Date End Date Connie Lugo MD 128 [facility] AMI [address] [place] [address] PCP - General Family Medicine 08/11/22 Florence Momin, RN Specialty Primer Inspector Hematology/Oncology 10/28/22 Leno Quigley DO [address] [place], [place] [address] Gastroenterology 01/03/23 Ivet Colin DO [address] [place] [address] Orthopedics 01/03/23 Nidhi Bowser V [address] [facility] [place] [address] Internal Medicine 01/31/23 Maira Herrera LISW [address] [place] [address] Resident Doctor Blood and Marrow Transplant 04/19/[address] [place] [address] [place] [address] Registered Dietitian Nutrition 05/01/23 Hot Pond Operator Relationship Specialty Start Date End Date Connie Lugo MD [address] [facility] AMI [address] [place] [address] PCP - General Family Medicine 08/11/22 Florence Momin, RN Specialty Primer Inspector Hematology/Oncology 10/28/22 Leno Quigley DO [address] [place] [address] Gastroenterology 01/03/23 Ivet Colin DO [address] [place] [address] Orthopedics 01/03/23 Nidhi Bowser V [address] [place] [address] Internal Medicine 01/31/23 Maira Herrera LISW [address] [place], [place] [id number] Resident Doctor Blood and Marrow Transplant 04/19/[address] [place] [address] [place] [address] Registered Dietitian Nutrition 05/01/23 Hot Pond Operator Relationship Specialty Start Date End Date Connie Lugo MD 128 [facility] [place] AMI [address] [place] [address] PCP - General Family Medicine 08/11/22 Florence Momin, RN Specialty Primer Inspector Hematology/Oncology 10/28/22 Leno Quigley DO [address] [facility] [address] [place] [address] Gastroenterology 01/03/23 Ivet Colin DO [address] [place] [address] Orthopedics 01/03/23 Nidhi Bowser V [address] [place] [place] [address] Internal Medicine 01/31/23 Maira Herrera LISW [address] [place] [address] Resident Doctor Blood and Marrow Transplant 04/19/[address] [place] [address] [place] [address] Registered Dietitian Nutrition 05/01/23 Hot Pond Operator Relationship Specialty Start Date End Date Connie Lugo MD [address] [facility] [facility] [address] [place] [address] PCP - General Family Medicine 08/11/22 Florence Momin, RN Specialty Primer Inspector Hematology/Oncology 10/28/22 Leno Quigley DO [address] [facility] [address] [place], [place] [address] Gastroenterology 01/03/23 Ivet Colin DO [address] [place] [address] Orthopedics 01/03/23 Nidhi Bowser V [address] [facility] [address] Internal Medicine 01/31/23 Maira Herrera LISW [address] [place] [address] Resident Doctor Blood and Marrow Transplant 04/19/[address] [place] [address] [place] [address] Registered Dietitian Nutrition 05/01/23 Hot Pond Operator Relationship Specialty Start Date End Date Connie Lugo MD [address] [address] [place] [address] PCP - General Family Medicine 08/11/22 Florence Momin, RN Specialty Primer Inspector Hematology/Oncology 10/28/22 Leno Quigley DO [address] [facility] [address] [place], [place] [address] Gastroenterology 01/03/23 Ivet Colin DO [address] [place] [address] Orthopedics 01/03/23 Nidhi Bowser V [address] E [facility] [address] Internal Medicine 01/31/23 Maira Herrera LISW [address] [place], [place] [id number] Resident Doctor Blood and Marrow Transplant 04/19/[address] [place] [address] [place] [address] Registered Dietitian Nutrition 05/01/23 Hot Pond Operator Relationship Specialty Start Date End Date Connie Lugo MD 128 [facility] [address] [place], [place] [address] PCP - General Family Medicine 08/11/22 Florence Momin, RN Specialty Primer Inspector Hematology/Oncology 10/28/22 Leno Quigley DO [address] [facility] [address] [place] [address] Gastroenterology 01/03/23 Ivet Colin DO [address] [place] [address] Orthopedics 01/03/23 Nidhi Bowser V [address] E [facility] [address] Internal Medicine 01/31/23 Maira Herrera LISW [address] [place], [place] 130[address] Resident Doctor Blood and Marrow Transplant 04/19/[address] [place] [address] [place] [address] Registered Dietitian Nutrition 05/01/23 Hot Pond Operator Relationship Specialty Start Date End Date Connie Lugo MD 128 [facility] AMI [address] [place], [place] [address]391 PCP - General Family Medicine 08/11/22 Florence Momin, LATIA Specialty Primer Inspector Hematology/Oncology 10/28/22 Leno Quigley DO 1761 [facility] [address] [place], [place] [address] Gastroenterology 01/03/23 Ivet Colin DO [address] [place] [address] Orthopedics 01/03/23 Nidhi Bowser V [address] [facility] [place] [address] Internal Medicine 01/31/23 Maira Herrera LISW [address] [place] [address] Resident Doctor Blood and Marrow Transplant 04/19/[address] [place] [address] [place] [address] Registered Dietitian Nutrition 05/01/23 Hot Pond Operator Relationship Specialty Start Date End Date Connie Lugo MD 128 [facility] [address] [place] [address] PCP - General Family Medicine 08/11/22 Florence Momin RN Specialty Primer Inspector Hematology/Oncology 10/28/22 Leno Quigley DO [address] [place], [place] [address] Gastroenterology 01/03/23 Ivet Colin DO [address] [place] [address] Orthopedics 01/03/23 Nidhi Bowser V [address] [place] [address] Internal Medicine 01/31/23 Maira Herrera LISW [address] [place] [address] Resident Doctor Blood and Marrow Transplant 04/19/[address] [place] [address] [place] [address] Registered Dietitian Nutrition 05/01/23 Hot Pond Operator Relationship Specialty Start Date End Date Connie Lugo MD [address] [place] [address]I [address] [place] [address] PCP - General Family Medicine 08/11/22 Florence Momin RN Specialty Primer Inspector Hematology/Oncology 10/28/22 Leno Quigley DO [address] [place] [address] Gastroenterology 01/03/23 Ivet Colin DO [address] [place] [address] Orthopedics 01/03/23 Nidhi Bowser V [address] [place] [address] Internal Medicine 01/31/23 Maira Herrera LISW [address] [place], [place] [id number] Resident Doctor Blood and Marrow Transplant 04/19/[address] [place] [address] [place] [address] Registered Dietitian Nutrition 05/01/23 Hot Pond Operator Relationship Specialty Start Date End Date Connie Lugo MD [address] [facility] [address] [place], [place] [address] PCP - General Family Medicine 08/11/22 Florence Momin RN Specialty Primer Inspector Hematology/Oncology 10/28/22 Leno Quigley DO [address] [facility] [address] [place] [address] Gastroenterology 01/03/23 Ivet Colin DO [address] [place] [address] Orthopedics 01/03/23 Nidhi Bowser V [address] E [facility] [address] Internal Medicine 01/31/23 Maira Herrera LISW [address] [place] [address] Resident Doctor Blood and Marrow Transplant 04/19/[address] [place] [address] [place] [address] Registered Dietitian Nutrition 05/01/23 Hot Pond Operator Relationship Specialty Start Date End Date Connie Lugo MD [address] [facility] [address] [place], [place] [address] PCP - General Family Medicine 08/11/22 Florence Momin, RN Specialty Primer Inspector Hematology/Oncology 10/28/22 Leno Quigley DO 1761 [facility] [address] [place], [place] [id number] Gastroenterology 01/03/23 Ivet Colin DO [address] [place] [address] Orthopedics 01/03/23 Nidhi Bowser V [address] [facility] [place] [address] Internal Medicine 01/31/23 Maira Herrera LISW [address] [place] [address] Resident Doctor Blood and Marrow Transplant 04/19/[address] [place] [address] [place] [address] Registered Dietitian Nutrition 05/01/23 Hot Pond Operator Relationship Specialty Start Date End Date Connie Lugo MD [address] [facility] [address] [place] [address] PCP - General Family Medicine 08/11/22 Florence Momin, RN Specialty Primer Inspector Hematology/Oncology 10/28/22 Leno Quigley DO 176 [facility] [address] [place], [place] [id number] Gastroenterology 01/03/23 Ivet Colin DO [address] [place], [place] [address] Orthopedics 01/03/23 Nidhi Bowser V [address] [place] [place] [address] Internal Medicine 01/31/23 Maira Herrera LISW [address] [place] [address] Resident Doctor Blood and Marrow Transplant 04/19/[address] [place] [address] [place] [address] Registered Dietitian Nutrition 05/01/23 Hot Pond Operator Relationship Specialty Start Date End Date Connie Lugo MD [address] [facility] [address] [place], [place] [id number] PCP - General Family Medicine 08/11/22 Florence Momin RN Specialty Primer Inspector Hematology/Oncology 10/28/22 Leno Quigley DO [address] [facility] [address] [place], [place] [id number] Gastroenterology 01/03/23 Ivet Colin DO [address] [place] [address] Orthopedics 01/03/23 Nidhi Bowser V [address] [place] [phone] Internal Medicine 01/31/23 Maira Herrera LISW [address] [place], [place] [id number] Resident Doctor Blood and Marrow Transplant 04/19/[address] [place] [address] [place] [address] Registered Dietitian Nutrition 05/01/23 Hot Pond Operator Relationship Specialty Start Date End Date Connie Lugo MD [address] [facility] 105 [place], [place] [address]61 PCP - General Family Medicine 08/11/22 Florence Momin, RN Specialty Primer Inspector Hematology/Oncology 10/28/22 Leno Quigley DO 1761 [facility] 3B [place], [place] [address]71 Gastroenterology 01/03/23 Ivet Colin DO [address], [place] [id number] Orthopedics 01/03/23 Nidhi Bowser V [address] E [facility] [place] [address] Internal Medicine 01/31/23 Maira Herrera, LEONOR 9500 [facility] [place] [place] [id number] Resident Doctor Blood and Marrow Transplant 04/19/[address] [place] [address] [place] [address] Registered Dietitian Nutrition 05/01/23 Hot Pond Operator Relationship Specialty Start Date End Date Connie Lugo MD [address] [facility] 105 [place] [address] PCP - General Family Medicine 08/11/22 Florence Momin, RN Specialty Primer Inspector Hematology/Oncology 10/28/22 Leno Quigley DO 1761 [facility] [address]B [place] [address] Gastroenterology 01/03/23 Ivet Colin DO [address] [place] [address] Orthopedics 01/03/23 Nidhi Bowser V [address] [place] [address] Internal Medicine 01/31/23 Maira Herrera LISW [address] [place], [place] [id number] Resident Doctor Blood and Marrow Transplant 04/19/[address] [place] [address] [place] [address] Registered Dietitian Nutrition 05/01/23 Hot Pond Operator Relationship Specialty Start Date End Date Connie Lugo MD 128 [facility] [address]I [address] [place] [address] PCP - General Family Medicine 08/11/22 Florence Momin RN Specialty Primer Inspector Hematology/Oncology 10/28/22 Leno Quigley DO 1761 [facility] [address] [place] [address] Gastroenterology 01/03/23 Ivet Colin DO [address] [place] [address] Orthopedics 01/03/23 Nidhi Bowser V [address] [place] [address]6199691[address]12[address] Internal Medicine 01/31/23 Maira Herrera LISW [address] [place] [address] Resident Doctor Blood and Marrow Transplant 04/19/[address] [place] [address] [place] [address] Registered Dietitian Nutrition 05/01/23 Hot Pond Operator Relationship Specialty Start Date End Date Connie Lugo MD [address] [facility] 105 [place] [address] PCP - General Family Medicine 08/11/22 Florence Momin, RN Specialty Primer Inspector Hematology/Oncology 10/28/22 Leno Quigley DO 1761 [facility] 3B [place], [place] 359501 Gastroenterology 01/03/23 Ivet Colin DO [address] [place] [address] Orthopedics 01/03/23 Nidhi Bowser V [address] [facility] [place] [address] Internal Medicine 01/31/23 Maira Herrera LISW [address] [place] [address] Resident Doctor Blood and Marrow Transplant 04/19/[address] [place] [address] [place] [address] Registered Dietitian Nutrition 05/01/23 Hot Pond Operator Relationship Specialty Start Date End Date Connie Lugo MD [address] [facility] 105 [place], [place] 275541 PCP - General Family Medicine 08/11/22 Florence Momin, RN Specialty Primer Inspector Hematology/Oncology 10/28/22 Leno Quigley DO 1761 [facility] [address]B [place] [address] Gastroenterology 01/03/23 Ivet Colin DO [address] [place] [address] Orthopedics 01/03/23 Nidhi Bowser V [address] [place] [address]36[address]12[address] Internal Medicine 01/31/23 Maira Herrera LISW [address] [place], [place] [id number] Resident Doctor Blood and Marrow Transplant 04/19/[address] [place] [address] [place], [place] [phone] Registered Dietitian Nutrition 05/01/23 Hot Pond Operator Relationship Specialty Start Date End Date Connie Lugo MD [address] [facility] [address] [place], [place] 906791 PCP - General Family Medicine 08/11/22 Florence Momin, RN Specialty Primer Inspector Hematology/Oncology 10/28/22 Leno Quigley DO 1761 [facility] [address]B [place], [place] 64900691 Gastroenterology 01/03/23 Ivet Colin DO [address] [place] [address] Orthopedics 01/03/23 Nidhi Bowser V [address] [place] [address] Internal Medicine 01/31/23 Maira Herrera LISW [address] [place], [place] [phone] Resident Doctor Blood and Marrow Transplant 04/19/[address] [place] [address] [place] [address] Registered Dietitian Nutrition 05/01/23 [place] [address] [place] [address] Blood and Marrow Transplant 04/17/23 Hot Pond Operator Relationship Specialty Start Date End Date Connie Lugo MD 128 [facility] AMI [address] [place], [place] 56097691 PCP - General Family Medicine 08/11/22 Florence Momin RN Specialty Primer Inspector Hematology/Oncology 10/28/22 Leno Quigley DO 1761 [facility] 3B [place], [place] 60464691 Gastroenterology 01/03/23 Ivet Colin DO [address], [place] 87372256 Orthopedics 01/03/23 Nidhi Bowser V 324 E [facility] [place] [address] Internal Medicine 01/31/23 Maira Herrera LISW [address] [place] [address] Resident Doctor Blood and Marrow Transplant 04/19/[address] [place] [address] [place] [address] Registered Dietitian Nutrition 05/01/23 [place] [address] [place] [address] Blood and Marrow Transplant 04/17/23 Hot Pond Operator Relationship Specialty Start Date End Date Connie Lugo MD [address] [facility] 105 [place], [place] 614321 PCP - General Family Medicine 08/11/22 Florence Momin, RN Specialty Primer Inspector Hematology/Oncology 10/28/22 Leno Quigley DO 1761 [facility] [address] [place], [place] 524751 Gastroenterology 01/03/23 Ivet Colin DO [address] [place] [address] Orthopedics 01/03/23 Nidhi Bowser V [address] [facility] [place] [address] Internal Medicine 01/31/23 Maira Herrera LISW [address] [place], [place] [phone] Resident Doctor Blood and Marrow Transplant 04/19/[address] [place] [address] [place] [address] [place] [address] Registered Dietitian Nutrition 05/01/23 [place] [address] [place] [address] Blood and Marrow Transplant 04/17/23 Hot Pond Operator Relationship Specialty Start Date End Date Connie Lugo MD 128 [facility] 105 [place] [address] PCP - General Family Medicine 08/11/22 Florence MominLATIA Specialty Primer Inspector Hematology/Oncology 10/28/22 Leno Quigley DO [address] [facility] [address] [place], [place] 510791 Gastroenterology 01/03/23 Ivet Colin DO [address] [place] [address] Orthopedics 01/03/23 Nidhi Bowser V [address] [place] [address] Internal Medicine 01/31/[address] [place] [address] [place] [id number] Registered Dietitian Nutrition 05/01/23 [place] [address] [place] [address] Blood and Marrow Transplant 04/17/23 Hot Pond Operator Relationship Specialty Start Date End Date Connie Lugo MD 128 [facility] [address] [place] [address] PCP - General Family Medicine 08/11/22 Florence Momin RN Specialty Primer Inspector Hematology/Oncology 10/28/22 Leno Quigley DO [address] [facility] [address]B [place] [address] Gastroenterology 01/03/23 Ivet Colin DO [address] [place] [address] Orthopedics 01/03/23 Nidhi Bowser V [address] [place] [address] Internal Medicine 01/31/[address] [place] [address] [place] [address] Registered Dietitian Nutrition 05/01/23 [place] [address] [place] [address] Blood and Marrow Transplant 04/17/23 Hot Pond Operator Relationship Specialty Start Date End Date Connie Lugo MD [address] [facility] [address] [place] [address] PCP - General Family Medicine 08/11/22 Florence Momin RN Specialty Primer Inspector Hematology/Oncology 10/28/22 Leno Quigley DO 1761 [facility] [address] [place] [address] Gastroenterology 01/03/23 Ivet Colin DO [address] [place] [address] Orthopedics 01/03/23 Nidhi Bowser V 324 E [facility] [place] [address] Internal Medicine 01/31/[address] [place] [address] [place] [address] Registered Dietitian Nutrition 05/01/23 [place] [address] [place] [address] Blood and Marrow Transplant 04/17/23 Hot Pond Operator Relationship Specialty Start Date End Date Connie Lugo MD [address] [facility] [facility] 105 [place], [place] 774091 PCP - General Family Medicine 08/11/22 Florence Momin, RN Specialty Primer Inspector Hematology/Oncology 10/28/22 Leno Quigley DO 1761 [facility] 3B [place], [place] 41138691 Gastroenterology 01/03/23 Ivet Colin DO [address] [place] [address] Orthopedics 01/03/23 Nidhi Bowser V 324 E [facility] [place] [address] Internal Medicine 01/31/[address] [place] [address] [place] [address] Registered Dietitian Nutrition 05/01/23 [place] [address] [place] [phone] Blood and Marrow Transplant 04/17/23 Hot Pond Operator Relationship Specialty Start Date End Date Connie Lugo MD [address] [facility] 105 [place], [place] 16531691 PCP - General Family Medicine 08/11/22 Florence Momin, RN Specialty Primer Inspector Hematology/Oncology 10/28/22 Leno Quigley DO 1761 [facility] [address] [place], [place] 01938691 Gastroenterology 01/03/23 Ivet Colin DO [address] [place] [address] Orthopedics 01/03/23 Nidhi Bowser V [address] E [facility] [place] [address] Internal Medicine 01/31/[address] [place] [address] [address] [place] [address] Registered Dietitian Nutrition 05/01/23 [place] [address] [place] [address] Blood and Marrow Transplant 04/17/23 Hot Pond Operator Relationship Specialty Start Date End Date Connie Lugo MD [address] [facility] [address] [place] [address] PCP - General Family Medicine 08/11/22 Florence Momin, RN Specialty Primer Inspector Hematology/Oncology 10/28/22 Leno Quigley DO 1761 [facility] [address] [place] [address] Gastroenterology 01/03/23 Ivet Colin DO [address] [place] [address] Orthopedics 01/03/23 Nidhi Bowser V [address] [address]48 Internal Medicine 01/31/[address] [place] [address] [place] [id number] Registered Dietitian Nutrition 05/01/23 [place] [address] [place] [phone] Blood and Marrow Transplant 04/17/23 Hot Pond Operator Relationship Specialty Start Date End Date Connie Lugo MD [address] [facility] 105 [place], [place] [address]001 PCP - General Family Medicine 08/11/22 Florence Momin, LATIA Specialty Primer Inspector Hematology/Oncology 10/28/22 Leno Quigley DO 1761 [facility] [address] [place], [place] [phone] Gastroenterology 01/03/23 Ivet Colin DO [address] [place] [address] Orthopedics 01/03/23 Nidhi Bowser V 324 E [facility] [address] Internal Medicine 01/31/[address] [place] [address] [place] [id number] Registered Dietitian Nutrition 05/01/23 [place] [address] [place] [phone] Blood and Marrow Transplant 04/17/23 Hot Pond Operator Relationship Specialty Start Date End Date Connie Lugo MD 128 [facility] 105 [place], [place] 41732691 PCP - General Family Medicine 08/11/22 Florence Momin, RN Specialty Primer Inspector Hematology/Oncology 10/28/22 Leno Quigley DO 176 [facility] 3B [place], [place] 327941 Gastroenterology 01/03/23 Ivet Colin DO [address] [place] [address] Orthopedics 01/03/23 Nidhi Bowser V [address] [place] [address] Internal Medicine 01/31/[address] [place] [address] [place] [id number] Registered Dietitian Nutrition 05/01/23 [place] [address] [place] [address] Blood and Marrow Transplant 04/17/23 Hot Pond Operator Relationship Specialty Start Date End Date Connie Lugo MD 128 [facility] 105 [place] [address] PCP - General Family Medicine 08/11/22 Florence Momin, RN Specialty Primer Inspector Hematology/Oncology 10/28/22 Leno Quigley DO 176 [facility] [address] [place], [place] 75390[address] Gastroenterology 01/03/23 Ivet Colin DO [address] [place] [address] Orthopedics 01/03/23 Nidhi Bowser V [address] [place] [address] Internal Medicine 01/31/[address] [place] [address] [place] [address] Registered Dietitian Nutrition 05/01/23 [place] [address] [place] [address] Blood and Marrow Transplant 04/17/23 Hot Pond Operator Relationship Specialty Start Date End Date Connie Lugo MD 128 [facility] AMI [address] [place] [address] PCP - General Family Medicine 08/11/22 Hot Pond Operator Relationship Specialty Start Date End Date Connie Lugo MD [address] [facility] 105 [place] [address] PCP - General Family Medicine 08/11/22 Hot Pond Operator Relationship Specialty Start Date End Date Connie Lugo MD 128 [facility] 105 [place] [address] PCP - General Family Medicine 08/11/22 Florence Momin RN Specialty Primer Inspector Hematology/Oncology 10/28/22 Hot Pond Operator Relationship Specialty Start Date End Date Connie Lugo MD 128 [facility] [address] [place] [address] PCP - General Family Medicine 08/11/22 Hot Pond Operator Relationship Specialty Start Date End Date Connie Lugo MD 128 [facility] [address] [place] [address] PCP - General Family Medicine 08/11/22 Florence Momin, RN Specialty Primer Inspector Hematology/Oncology 10/28/22 Leno Quigley DO 176 [facility] 3[address] [place], [place] 6[address]31 Gastroenterology 01/03/23 Ivet Colin DO [address] [place] [address] Orthopedics 01/03/23 Nidhi Bowser V 324 E [facility] [place] [address] Internal Medicine 01/31/[address] [place] [address] [place] [id number] Registered Dietitian Nutrition 05/01/23 [place] [address] [place] [address] Blood and Marrow Transplant 04/17/23 Hot Pond Operator Relationship Specialty Start Date End Date Connie Lugo MD [address] [place] [facility] 105 [place], [place] [address]678[address] PCP - General Family Medicine 08/11/22 Florence Momin, RN Specialty Primer Inspector Hematology/Oncology 10/28/22 Leno Quigley DO 176 [facility] [address] [place], [place] 59050691 Gastroenterology 01/03/23 Ivet Colin DO [address] [place] [address] Orthopedics 01/03/23 Nidhi Bowser V [address] [place] [address] Internal Medicine 01/31/[address] [place] [address] [place] [address] Registered Dietitian Nutrition 05/01/23 [place] [address] [place], [place] [phone] Blood and Marrow Transplant 04/17/23 Hot Pond Operator Relationship Specialty Start Date End Date Connie Lugo MD [address] [address] [address] [place], [place] 64[address] PCP - General Family Medicine 08/11/22 Florence Momin RN Specialty Primer Inspector Hematology/Oncology 10/28/22 Leno Quigley DO 1761 [facility] [address] [place], [place] [address] Gastroenterology 01/03/23 Ivet Colin DO [address], [place] 64538256 Orthopedics 01/03/23 Nidhi Bowser V [address] [place] [address] Internal Medicine 01/31/[address] [place] [address] [place] [address] Registered Dietitian Nutrition 05/01/23 Earl Simpson MD [address] [place] [address] Blood and Marrow Transplant 04/17/23 Hot Pond Operator Relationship Specialty Start Date End Date Connie Lugo MD 128 [facility] [address] [place], [place] 076481 PCP - General Family Medicine 08/11/22 Florence Momin RN Specialty Primer Inspector Hematology/Oncology 10/28/22 [place] [address] [place] [address] [address] [place], [place] 202951 Gastroenterology 01/03/23 Ivet Colin DO [address] [place] [address] Orthopedics 01/03/23 Nidhi Bowser V [address] [facility] [place] [address]189[address] Internal Medicine 01/31/[address] [place], [place] [address] Registered Dietitian Nutrition 05/01/23 Earl Simpson MD [address] [place], [place] 2453106 Blood and Marrow Transplant 04/17/23 Hot Pond Operator Relationship Specialty Start Date End Date Connie Lugo MD 128 [facility] 105 [place] [address] PCP - General Family Medicine 08/11/22 Florence Momin RN Specialty Primer Inspector Hematology/Oncology 10/28/22 Leno Quigley DO 176 [facility] [address] [place] [address] Gastroenterology 01/03/23 Ivet Colin DO [address] [place] [address] Orthopedics 01/03/23 Nidhi Bowser V [address] [place] [address]1248 Internal Medicine 01/31/[address] [place] [address] [place] [address] Registered Dietitian Nutrition 05/01/23 [place] [address] [place], [place] [phone] Blood and Marrow Transplant 04/17/23 Hot Pond Operator Relationship Specialty Start Date End Date Connie Lugo MD 128 [facility] 105 [place] [address] PCP - General Family Medicine 08/11/22 Florence Momin, RN Specialty Primer Inspector Hematology/Oncology 10/28/22 Leno Quigley DO 1761 [facility] [address] [place] [address] Gastroenterology 01/03/23 Ivet Colin DO [address] [place] [address] Orthopedics 01/03/23 Nidhi Bowser V [address] [place] [address]91[address]12[address] Internal Medicine 01/31/[address] [place] [address] [address] [place] [address] Registered Dietitian Nutrition 05/01/23 [place] [address] [place], [place] 1062306 Blood and Marrow Transplant 04/17/23 Hot Pond Operator Relationship Specialty Start Date End Date Connie Lugo MD 128 [facility] AMI [address] [place], [place] 95964691 PCP - General Family Medicine 08/11/22 Florence Momin RN Specialty Primer Inspector Hematology/Oncology 10/28/22 Leno Quigley DO [address]61 [address] [place], [place] 33521691 Gastroenterology 01/03/23 Ivet Colin DO [address] [place], [place] 0799[address] Orthopedics 01/03/23 Nidhi Bowser V [address] [place] [address] Internal Medicine 01/31/[address] [place] [address] [place] [address] Registered Dietitian Nutrition 05/01/23 [place] [address] [place] [address] Blood and Marrow Transplant 04/17/23 Hot Pond Operator Relationship Specialty Start Date End Date Connie Lugo MD 128 [facility] 105 [place], [place] [address]2921 PCP - General Family Medicine 08/11/22 Florence Momin, RN Specialty Primer Inspector Hematology/Oncology 10/28/22 Leno Quigley DO 1761 [facility] [address] [place], [place] 453001 Gastroenterology 01/03/23 Ivet Colin DO [address] [place] [address] Orthopedics 01/03/23 Nidhi Bowser V 324 E [facility] [place] [address] Internal Medicine 01/31/[address] [place] [address] [address] [place] [address] Registered Dietitian Nutrition 05/01/23 [place] [address] [place] [phone] Blood and Marrow Transplant 04/17/23 Hot Pond Operator Relationship Specialty Start Date End Date Connie Lugo MD 128 [facility] 105 [place] [address] PCP - General Family Medicine 08/11/22 Florence Momin, RN Specialty Primer Inspector Hematology/Oncology 10/28/22 Leno Quigley DO 1761 [facility] [address] [place] [address] Gastroenterology 01/03/23 Ivet Colin DO [address] [place] [address] Orthopedics 01/03/23 Nidhi Bowser V [address] [place] [place] [address] Internal Medicine 01/31/[address] [place] [address] [place] [address] Registered Dietitian Nutrition 05/01/23 [place] [address] [place], [place] [phone] Blood and Marrow Transplant 04/17/23 Hot Pond Operator Relationship Specialty Start Date End Date Connie Lugo MD [address] [facility] 105 [place] [address] PCP - General Family Medicine 08/11/22 Florence Momin, RN Specialty Primer Inspector Hematology/Oncology 10/28/22 Leno Quigley DO 1761 [facility] [address]B [place], [place] 409[address]91 Gastroenterology 01/03/23 Ivet Colin DO [address] [place] [address] Orthopedics 01/03/23 Nidhi Bowser V [address] [place] [address] Internal Medicine 01/31/[address] [place] [address] [place] [address] Registered Dietitian Nutrition 05/01/23 [place] [address] [place] [address] Blood and Marrow Transplant 04/17/23 Hot Pond Operator Relationship Specialty Start Date End Date Connie Lugo MD 128 [facility] [address] [place] [address] PCP - General Family Medicine 08/11/22 Florence Momin, RN Specialty Primer Inspector Hematology/Oncology 10/28/22 Leno Quigley DO 1761 [facility] [address] [place], [place] [id number] Gastroenterology 01/03/23 Ivet Colin DO [address] [place], [place] [address]6833256 Orthopedics 01/03/23 Nidhi Bowser V 324 E [facility] [address]514[address] Internal Medicine 01/31/[address] [place] [address] [address] [place] [address] Registered Dietitian Nutrition 05/01/23 [place] [address] [place] [address] Blood and Marrow Transplant 04/17/23 Hot Pond Operator Relationship Specialty Start Date End Date Connie Lugo MD 128 [address] [facility] [address]I [address] [place], [place] [address]70691 PCP - General Family Medicine 08/11/22 Doup, Florence, RN Specialty Primer Inspector Hematology/Oncology 10/28/22 Leno Quigley DO 176 [facility] [address] [place], [place] 413691 Gastroenterology 01/03/23 Ivet Colin DO [address] [place] [address] Orthopedics 01/03/23 Nidhi Bowser V 324 [address] [facility] [place] [address]3285691[address]1248 Internal Medicine 01/31/[address] [place] [address] [place] [address] Registered Dietitian Nutrition 05/01/23 [place] [address] [place] [address] Blood and Marrow Transplant 04/17/23 Hot Pond Operator Relationship Specialty Start Date End Date Connie Lugo MD 128 [facility] AMI [address] [place] [address] PCP - General Family Medicine 08/11/22 Florence Momin RN Specialty Primer Inspector Hematology/Oncology 10/28/22 Leno Quigley DO 176 [facility] [address] [place] [address] Gastroenterology 01/03/23 Ivet Colin DO [address] [place] [address] Orthopedics 01/03/23 Nidhi Bowser V 324 E [facility] [place] [address] Internal Medicine 01/31/[address] [place] [address] [place] [address] Registered Dietitian Nutrition 05/01/23 [place] [address] [place] [address] Blood and Marrow Transplant 04/17/23 Hot Pond Operator Relationship Specialty Start Date End Date Connie Lugo MD [address] [place] [address] [address] [place] [address] PCP - General Family Medicine 08/11/22 Florence Momin RN Specialty Primer Inspector Hematology/Oncology 10/28/22 Leno Quigley DO 1761 [facility] [address] [place], [place] 478771 Gastroenterology 01/03/23 Ivet Colin DO [address] [place] [address] Orthopedics 01/03/23 Nidhi Bowser V [address] [place] [address] Internal Medicine 01/31/[address] [place] [address] [place] [address] Registered Dietitian Nutrition 05/01/23 [place] [address] [place] [address] Blood and Marrow Transplant 04/17/23 Hot Pond Operator Relationship Specialty Start Date End Date Connie Lugo MD 128 [facility] [address] [place], [place] [address]371 PCP - General Family Medicine 08/11/22 Florence Momin, RN Specialty Primer Inspector Hematology/Oncology 10/28/22 Leno Quigley DO 1761 [facility] [address] [place], [place] 186391 Gastroenterology 01/03/23 Ivet Colin DO [address] [place] [address] Orthopedics 01/03/23 Nidhi Bowser V [address] E [facility] [address] Internal Medicine 01/31/[address] [place] [address] [place] [address] [place] [address] Registered Dietitian Nutrition 05/01/23 [place] [address] [place] [phone] Blood and Marrow Transplant 04/17/23 Team Status: Active Member Role Status Dates Dr. Connie Lugo MD Primary Care Provider Active Dr. Gabriel Howard , DO Emergency Provider Active Dr. Eunice Corbett , DO Admit Provider, Attending Pr ovider Active Team Status: Active Member Role Status Dates Dr. Connie Lugo MD Primary Care Provider Active Dr. Gabriel Howard , DO Emergency Provider Active Dr. Eunice Corbett , DO Admit Provider, Other Provid er Active Dr. Connie Mccain , DO Other Provider Active Dr. Estrella Ramos , DO Attending Provider, Other Provide r Active Team Status: Active Member Role Status Dates Dr. Connie Lugo MD Primary Care Provider Active Dr. Gabriel Howard , DO Emergency Provider Active Dr. Eunice Corbett , DO Admit Provider, Other Provid er Active Dr. Estrella Ramos , DO Attending Provider, Other Provide r Active Team Status: Inactive Member Role Status Dates Dr. Connie Lugo MD Primary Care Provider Active Dr. Gabriel Howard , DO Emergency Provider Active Dr. Eunice Corbett , DO Admit Provider, Other Provid er Active Dr. Estrella Ramos , DO Attending Provider Active Hot Pond Operator Relationship Specialty Start Date End Date Connie Lugo MD 128 [facility] AMI [address] [place] [address] PCP - General Family Medicine 08/11/22 Florence Momin RN Specialty Primer Inspector Hematology/Oncology 10/28/22 Leno Quigley DO 1761 [facility] [address] [place], [place] 962841 Gastroenterology 01/03/23 Ivet Colin DO [address] [place], [place] [id number] Orthopedics 01/03/23 Nidhi Bowser V [address] E [facility] [place] [address] Internal Medicine 01/31/23 Ayan Maciel, MARCELLA [address] [place] [id number] Registered Dietitian Nutrition 05/01/23 [place] [address] [place] [phone] Blood and Marrow Transplant 04/17/23 Hot Pond Operator Relationship Specialty Start Date End Date Connie Lugo MD 128 [facility] [address] [place] [address] PCP - General Family Medicine 08/11/22 Florence Momin, RN Specialty Primer Inspector Hematology/Oncology 10/28/22 Leno Quigley DO 1761 [facility] [address] [place], [place] [address]641 Gastroenterology 01/03/23 Ivet Colin DO [address] [place] [address] Orthopedics 01/03/23 Nidhi Bowser V [address] [facility] [place] [address] Internal Medicine 01/31/[address] [place] [address] [place] [id number] Registered Dietitian Nutrition 05/01/23 Earl [place] [id number] [place] [address] Blood and Marrow Transplant 04/17/23 Hot Pond Operator Relationship Specialty Start Date End Date Connie Lugo MD 128 [facility] [address] [place] [address] PCP - General Family Medicine 08/11/22 Florence Momin, RN Specialty Primer Inspector Hematology/Oncology 10/28/22 Leno Quigley DO 176 [facility] [address] [place] [address] Gastroenterology 01/03/23 Ivet Colin DO [address] [place] [address] Orthopedics 01/03/23 Nidhi Bowser V [address] [place] [address] Internal Medicine 01/31/[address] [place] [address] [place] [address] [place] [address] Registered Dietitian Nutrition 05/01/23 [place] [address] [place], [place] [phone] Blood and Marrow Transplant 04/17/23 Hot Pond Operator Relationship Specialty Start Date End Date Connie Lugo MD [address] [facility] [address] [place], [place] [id number] PCP - General Family Medicine 08/11/22 Florence Momin, RN Specialty Primer Inspector Hematology/Oncology 10/28/22 Leno Quigley DO 1761 [facility] [address] [place], [place] 175[address] Gastroenterology 01/03/23 Ivet Colin DO [address] [place], [place] [id number] Orthopedics 01/03/23 Nidhi Bowser V [address] [place] [address] Internal Medicine 01/31/[address] [place] [address] [address] [place] [address] Registered Dietitian Nutrition 05/01/23 [place] [address] [place] [address] Blood and Marrow Transplant 04/17/23 Hot Pond Operator Relationship Specialty Start Date End Date Connie Lugo MD 128 [facility] [address] [place], [place] 894061 PCP - General Family Medicine 08/11/22 Florence Momin, RN Specialty Primer Inspector Hematology/Oncology 10/28/22 Leno Quigley DO 1761 [facility] [address] [place], [place] [id number] Gastroenterology 01/03/23 Ivet Colin DO [address] [place], [place] [id number] Orthopedics 01/03/23 Nidhi Bowser V [address] [facility] [place] [address] Internal Medicine 01/31/[id number] [place] [address] Registered Dietitian Nutrition 05/01/23 [place] [address] [place] [address] Blood and Marrow Transplant 04/17/23 Hot Pond Operator Relationship Specialty Start Date End Date Connie Lugo MD [address] [facility] [address] [place], [place] 740491 PCP - General Family Medicine 08/11/22 Florence Momin, RN Specialty Primer Inspector Hematology/Oncology 10/28/22 Leno Quigley DO [address] [place], [place] [address] Gastroenterology 01/03/23 Ivet Colin DO [address] [place] [address] Orthopedics 01/03/23 Nidhi Bowser V [address] E [facility] [place] [address] Internal Medicine 01/31/[address] [place] [address] [place] [address] Registered Dietitian Nutrition 05/01/23 [place] [address] [place] [address] Blood and Marrow Transplant 04/17/23 Hot Pond Operator Relationship Specialty Start Date End Date Connie Lugo MD 128 [facility] 105 [place] [address] PCP - General Family Medicine 08/11/22 Florence Momin, RN Specialty Primer Inspector Hematology/Oncology 10/28/22 Leno Quigley DO 176 [facility] [address] [place] [address] Gastroenterology 01/03/23 Ivet Colin DO [address] [place] [address] Orthopedics 01/03/23 Nidhi Bowser V [address] E [facility] [place] [address] Internal Medicine 01/31/[address] [place] [address] [place] [address] Registered Dietitian Nutrition 05/01/23 [place] [address] [place], [place] [phone] Blood and Marrow Transplant 04/17/23 Hot Pond Operator Relationship Specialty Start Date End Date Connie Lugo MD [facility] JARROD NARANJO [facility] [address] [place] [address] PCP - General Family Medicine 08/11/22 Florence Momin RN Specialty Primer Inspector Hematology/Oncology 10/28/22 Leno Quigley DO 1761 [facility] [address] [place] [address] Gastroenterology 01/03/23 Ivet Colin DO [address] [place] [address] Orthopedics 01/03/23 Nidhi Bowser V [address] [place] [address] Internal Medicine 01/31/[address] [place] [address] [place] [address] Registered Dietitian Nutrition 05/01/23 [place] [address] [place] [address] Blood and Marrow Transplant 04/17/23 Hot Pond Operator Relationship Specialty Start Date End Date Connie Lugo MD [address] [facility] [address] [place], [place] [address] PCP - General Family Medicine 08/11/22 Florence Momin, RN Specialty Primer Inspector Hematology/Oncology 10/28/22 Leno Quigley DO 1761 [facility] [address] [place], [place] [id number] Gastroenterology 01/03/23 Ivet Colin DO [address] [place], [place] 84409256 Orthopedics 01/03/23 Nidhi Bowser V 324 E [facility] [place] [address] Internal Medicine 01/31/[address] [place] [address] [place] [phone] Registered Dietitian Nutrition 05/01/23 [place] [address] [place] [address] Blood and Marrow Transplant 04/17/23 Hot Pond Operator Relationship Specialty Start Date End Date Connie Lugo MD [address] [facility] [address] [place], [place] 302471 PCP - General Family Medicine 08/11/22 Florence Momin, RN Specialty Primer Inspector Hematology/Oncology 10/28/22 Leno Quigley DO 1761 [facility] [address] [place], [place] 219426[address] Gastroenterology 01/03/23 Ivet Colin DO [address] [place] [address] Orthopedics 01/03/23 Nidhi Bowser V [address] [place] [address] Internal Medicine 01/31/[address] [place] [address] [address] [place] [address] Registered Dietitian Nutrition 05/01/23 [place] [address] [place] [address] Blood and Marrow Transplant 04/17/23 Hot Pond Operator Relationship Specialty Start Date End Date Connie Lugo MD [address] [place] [address] [place] [address] PCP - General Family Medicine 08/11/22 Florence Momin, LATIA Specialty Primer Inspector Hematology/Oncology 10/28/22 Leno Quigley DO 1761 [facility] [address] [place] [address] Gastroenterology 01/03/23 Ivet Colin DO [address] [place] [address] Orthopedics 01/03/23 Nidhi Bowser V [address] [place] [address] Internal Medicine 01/31/[address] [place] [address] [place] [address] Registered Dietitian Nutrition 05/01/23 [place] [address] [place] [address] Blood and Marrow Transplant 04/17/23 Hot Pond Operator Relationship Specialty Start Date End Date Connie Lugo MD 128 [facility] [address] [place] [address] PCP - General Family Medicine 08/11/22 Florence Momin, RN Specialty Primer Inspector Hematology/Oncology 10/28/22 Leno Quigley DO 1761 [facility] [address] [place], [place] [address] Gastroenterology 01/03/23 Ivet Colin DO [address] [place] [address] Orthopedics 01/03/23 Nidhi Bowser V [address] [facility] [place] [address] Internal Medicine 01/31/[address] [place] [address] [address] [place] [address] Registered Dietitian Nutrition 05/01/23 [place] [address] [place] [address] Blood and Marrow Transplant 04/17/23 Hot Pond Operator Relationship Specialty Start Date End Date Connie Lugo MD 128 [facility] [address] [place], [place] [address] PCP - General Family Medicine 08/11/22 Florence Momin, RN Specialty Primer Inspector Hematology/Oncology 10/28/22 Leno Quigley DO 176 [facility] [address] [place], [place] 307741 Gastroenterology 01/03/23 Ivet Colin DO [address] [place], [place] 23633256 Orthopedics 01/03/23 Nidhi Bowser V [address] [place] [address] Internal Medicine 01/31/[address] [place] [address] [place] [id number] Registered Dietitian Nutrition 05/01/23 [place] [address] [place] [phone] Blood and Marrow Transplant 04/17/23 Hot Pond Operator Relationship Specialty Start Date End Date Connie Lugo MD [address] [facility] [facility] [address] [place], [place] 09351691 PCP - General Family Medicine 08/11/22 Florence Momin, RN Specialty Primer Inspector Hematology/Oncology 10/28/22 Leno Quigley DO 176 [facility] [address] [place], [place] 27660691 Gastroenterology 01/03/23 Ivet Colin DO [address] [place], [place] 21364[address] Orthopedics 01/03/23 Nidhi Bowser V [address] [address] Internal Medicine 01/31/[address] [place] [address] [address] [place] [address] Registered Dietitian Nutrition 05/01/23 [place] [address] [place] [address] Blood and Marrow Transplant 04/17/23 Hot Pond Operator Relationship Specialty Start Date End Date Connie Lugo MD [address] [place] [address] [place], [place] [id number] PCP - General Family Medicine 08/11/22 Florence Momin RN Specialty Primer Inspector Hematology/Oncology 10/28/22 Leno Quigley DO 1761 [facility] [address] [place], [place] [address] Gastroenterology 01/03/23 Ivet Colin DO [address] [place], [place] 93682256 Orthopedics 01/03/23 Nidhi Bowser V [address] [address] Internal Medicine 01/31/[address] [place] [address] [place] [address] Registered Dietitian Nutrition 05/01/23 [place] [address] [place] [address] Blood and Marrow Transplant 04/17/23 Hot Pond Operator Relationship Specialty Start Date End Date Connie Lugo MD 128 [facility] [address] [place], [place] 911381 PCP - General Family Medicine 08/11/22 Florence Momin, RN Specialty Primer Inspector Hematology/Oncology 10/28/22 Leno Quigley DO 1761 [facility] [address] [place] [address] Gastroenterology 01/03/23 Ivet Colin DO [address] [place] [address] Orthopedics 01/03/23 Nidhi Bowser V [address] [facility] [place] [address] Internal Medicine 01/31/[address] [place] [address] [place] [id number] Registered Dietitian Nutrition 05/01/23 [place] [address] [place] [phone] Blood and Marrow Transplant 04/17/23 Hot Pond Operator Relationship Specialty Start Date End Date Connie Lugo MD [address] [facility] [address] [place], [place] 25047691 PCP - General Family Medicine 08/11/22 Florence Momin, RN Specialty Primer Inspector Hematology/Oncology 10/28/22 Leno Quigley DO 1761 [facility] [address] [place] [address] Gastroenterology 01/03/23 Ivet Colin DO [address] [place] [address] Orthopedics 01/03/23 Nidhi Bowser V [address] [place] [address] Internal Medicine 01/31/[address] [place] [address] [address] [place], [place] 2054606 Registered Dietitian Nutrition 05/01/23 [place] [address] [place], [place] [phone] Blood and Marrow Transplant 04/17/23 Hot Pond Operator Relationship Specialty Start Date End Date Connie Lugo MD 128 [address] [place]JO [address] [address] [place], [place] 15163691 PCP - General Family Medicine 08/11/22 Florence Momin, RN Specialty Primer Inspector Hematology/Oncology 10/28/22 Leno Quigley DO 1761 [facility] [address] [place] [address] Gastroenterology 01/03/23 Ivet Colin DO [address] [place] [address] Orthopedics 01/03/23 Nidhi Bowser V [address] [place] [address] Internal Medicine 01/31/[address] [place] [address] [place] [address] Registered Dietitian Nutrition 05/01/23 [place] [address] [place] [address] Blood and Marrow Transplant 04/17/23 Hot Pond Operator Relationship Specialty Start Date End Date Connie Lugo MD [address] [facility] [place] [address] [address] [place], [place] 738351 PCP - General Family Medicine 08/11/22 Florence Momin RN Specialty Primer Inspector Hematology/Oncology 10/28/22 Leno Quigley DO 1761 [facility] [address] [place], [place] [address]461 Gastroenterology 01/03/23 Ivet Colin DO [address] [place] [address] Orthopedics 01/03/23 Nidhi Bowser V [address] E [facility] [place] [address] Internal Medicine 01/31/[address] [place] [address] [place] [address] Registered Dietitian Nutrition 05/01/23 [place] [address] [place] [address] Blood and Marrow Transplant 04/17/23 Hot Pond Operator Relationship Specialty Start Date End Date Connie Lugo MD 128 [facility] [address] [place], [place] [address]011 PCP - General Family Medicine 08/11/22 Florence Momin, RN Specialty Primer Inspector Hematology/Oncology 10/28/22 Leno Quigley DO 1761 [facility] [address] [place], [place] 576401 Gastroenterology 01/03/23 Ivet Colin DO [address] [place] [address] Orthopedics 01/03/23 Nidhi Bowser V [address] [facility] [place] [address] Internal Medicine 01/31/[address] [place] [address] [place] [id number] Registered Dietitian Nutrition 05/01/23 [place] [address] [place] [address] Blood and Marrow Transplant 04/17/23 Gilbert Means MD [address] [place] [address] Dermatology 06/27/24 Hot Pond Operator Relationship Specialty Start Date End Date Connie Lugo MD 128 [facility] 105 [place], [place] [id number] PCP - General Family Medicine 08/11/22 Florence Momin, RN Specialty Primer Inspector Hematology/Oncology 10/28/22 Leno Quigley DO 1761 [facility] [address] [place], [place] 094841 Gastroenterology 01/03/23 Ivet Colin DO [address] [place], [place] 83578256 Orthopedics 01/03/23 Nidhi Bowser V 324 E [facility] [place] [address] Internal Medicine 01/31/[address] [place] [address] [place] [address] [place], [place] 6079306 Registered Dietitian Nutrition 05/01/23 [place] [address] [place], [place] 7092706 Blood and Marrow Transplant 04/17/23 Gilbert Means MD [address] [place], [place] 62970256 Dermatology 06/27/24 Hot Pond Operator Relationship Specialty Start Date End Date Connie Lugo MD [address] [place] [address] [place], [place] 93444691 PCP - General Family Medicine 08/11/22 Florence Momin, RN Specialty Primer Inspector Hematology/Oncology 10/28/22 Leno Quigley DO 1761 [facility] [address] [place], [place] 26038691 Gastroenterology 01/03/23 Ivet Colin DO [address] [place], [place] 32379256 Orthopedics 01/03/23 Nidhi Bowser V [address] [place] [address] Internal Medicine 01/31/[address] [place] [address] [place] [address] [place] [address] Registered Dietitian Nutrition 05/01/23 [place] [address] [place] [address] Blood and Marrow Transplant 04/17/23 Gilbert Means MD [address] [place] [address] Dermatology 06/27/24 Temo Gill, LATIA Research Nurse 11/23/22 Hot Pond Operator Relationship Specialty Start Date End Date Connie Lugo MD [address] [place] [address] [place] [address] PCP - General Family Medicine 08/11/22 Florence Momin RN Specialty Primer Inspector Hematology/Oncology 10/28/22 Leno Quigley DO 1761 [facility] [address] [place] [address] Gastroenterology 01/03/23 Ivet Colin DO [address] [place], [place] 96165256 Orthopedics 01/03/23 Nidhi Bowser V [address] [place] [address] Internal Medicine 01/31/[address] [place] [address] [address] [place] [address] Registered Dietitian Nutrition 05/01/23 [place] [address] [place] [address] Blood and Marrow Transplant 04/17/23 Temo Gill, LATIA Research Nurse 11/23/22 Hot Pond Operator Relationship Specialty Start Date End Date Connie Lugo MD [address] [facility] [place] [address] [place], [place] [address] PCP - General Family Medicine 08/11/22 Florence Momin RN Specialty Primer Inspector Hematology/Oncology 10/28/22 Leno Quigley DO 1761 [facility] [address] [place], [place] 509611 Gastroenterology 01/03/23 Ivet Colin DO [address] [place] [address] Orthopedics 01/03/23 Nidhi Bowser V 324 E [facility] [place] [address] Internal Medicine 01/31/[address] [place] [address] [address] [place] 1933[address] Registered Dietitian Nutrition 05/01/23 [place] [address] [place] [address] Blood and Marrow Transplant 04/17/23 Temo Gill, LATIA Research Nurse 11/23/22 Hot Pond Operator Relationship Specialty Start Date End Date Connie Lugo MD [address] [facility] [address] [place], [place] [address]41 PCP - General Family Medicine 08/11/22 Florence Momin RN Specialty Primer Inspector Hematology/Oncology 10/28/22 Leno Quigley DO 1761 [facility] [address] [place], [place] [address]50626[address] Gastroenterology 01/03/23 Ivet Colin DO [address] [place], [place] 75986256 Orthopedics 01/03/23 Nidhi Bowser V [address] [place] [address] Internal Medicine 01/31/[address] [place] [address] [place], [place] 4576606 Registered Dietitian Nutrition 05/01/23 [place] [address] [place], [place] [phone] Blood and Marrow Transplant 04/17/23 Gilbert Means MD [address] [place], [place] [phone] Dermatology 06/27/24 Temo Gill, LATIA Research Nurse 11/23/22 Hot Pond Operator Relationship Specialty Start Date End Date Connie Lugo MD [address] [facility] [address] [place] [address] PCP - General Family Medicine 08/11/22 Florence Momin, RN Specialty Primer Inspector Hematology/Oncology 10/28/22 Leno Quigley DO 1761 [facility] [address] [place] [address] Gastroenterology 01/03/23 Ivet Colin DO [address] [place], [place] 83140256 Orthopedics 01/03/23 Nidhi Bowser V [address] [place] [address] Internal Medicine 01/31/[address] [place] [address] [address] [place] 2308006 Registered Dietitian Nutrition 05/01/23 [place] [address] [place], [place] 2054806 Blood and Marrow Transplant 04/17/23 Gilbert Means MD [address] [place] [address] Dermatology 06/27/24 Temo Gill, LATIA Research Nurse 11/23/22 Hot Pond Operator Relationship Specialty Start Date End Date Connie Lugo MD [address] [place] [facility] [address] [place], [place] 01909691 PCP - General Family Medicine 08/11/22 Florence Momin, RN Specialty Primer Inspector Hematology/Oncology 10/28/22 Leno Quigley DO 1761 [facility] [address] [place] [address] Gastroenterology 01/03/23 Ivet Colin DO [address] [place] [address] Orthopedics 01/03/23 Nidhi Bowser V 324 E [facility] [address] Internal Medicine 01/31/[address] [place] [address] [address] [place], [place] 3690806 Registered Dietitian Nutrition 05/01/23 [place] [address] [place], [place] [phone] Blood and Marrow Transplant 04/17/23 Gilbert Means MD [address] [place], [place] [phone] Dermatology 06/27/24 Temo Gill, LATIA Research Nurse 11/23/22 Hot Pond Operator Relationship Specialty Start Date End Date Connie Lugo MD 128 [facility] 105 [place] [address] PCP - General Family Medicine 08/11/22 Florence Momin, LATIA Specialty Primer Inspector Hematology/Oncology 10/28/22 Leno Quigley DO 1761 [facility] [address] [place], [place] [id number] Gastroenterology 01/03/23 Ivet Colin DO [address]70 [place], [place] [address] Orthopedics 01/03/23 Nidhi Bowser V [address] [place] [address] Internal Medicine 01/31/[address] [place] [address] [address] [place], [place] 4366506 Registered Dietitian Nutrition 05/01/23 [place] [address] [place], [place] 4868506 Blood and Marrow Transplant 04/17/23 Gilbert Means MD [address] [place], [place] [phone] Dermatology 06/27/24 Temo Gill, LATIA Research Nurse 11/23/22 Hot Pond Operator Relationship Specialty Start Date End Date Connie Lugo MD [address] [facility] [address] [place] [address] PCP - General Family Medicine 08/11/22 Florence Momin RN Specialty Primer Inspector Hematology/Oncology 10/28/22 Leno Quigley DO 1761 [facility] [facility] [address] [place], [place] [id number] Gastroenterology 01/03/23 Ivet Colin DO [address], [place] [id number] Orthopedics 01/03/23 Nidhi Bowser V [address] [place] [address] Internal Medicine 01/31/[address] [place] [address] [address] [address] [place] 2870506 Registered Dietitian Nutrition 05/01/23 [place] [address] [place], [place] [phone] Blood and Marrow Transplant 04/17/23 Gilbert Means MD [address] [place], [place] [id number] Dermatology 06/27/24 Temo Gill RN Research Nurse 11/23/22 Hot Pond Operator Relationship Specialty Start Date End Date Connie Lugo MD [address] [place] [address] PCP - General Family Medicine 08/11/22 Florence Momin, RN Specialty Primer Inspector Hematology/Oncology 10/28/22 Leno Quigley DO [address] [facility] [address] [place], [place] 445921 Gastroenterology 01/03/23 Ivet Colin DO [address] [place] [address] Orthopedics 01/03/23 Nidhi Bowser V [address] [place] [address]201248 Internal Medicine 01/31/[address] [place] [address] [address] [place], [place] 1347206 Registered Dietitian Nutrition 05/01/23 Earl [place] [id number] [place] [address] Blood and Marrow Transplant 04/17/23 Gilbert Means MD [address] [place], [place] [phone] Dermatology 06/27/24 Temo Gill, LATIA Research Nurse 11/23/22 Hot Pond Operator Relationship Specialty Start Date End Date Connie Lugo MD [address] [place] [address] PCP - General Family Medicine 08/11/22 Florence Momin RN Specialty Primer Inspector Hematology/Oncology 10/28/22 Leno Quigley DO 1761 [facility] [address] [place], [place] 406641 Gastroenterology 01/03/23 Ivet Colin DO [address], [place] [id number] Orthopedics 01/03/23 Nidhi Bowser V [address] [place] [address]461248 Internal Medicine 01/31/[address] [place] [address] [address] [place] [address] Registered Dietitian Nutrition 05/01/23 [place] [address] [place] [address] Blood and Marrow Transplant 04/17/23 Gilbert Means MD [address] [place] [address] Dermatology 06/27/24 Temo Gill, LATIA Research Nurse 11/23/22 Hot Pond Operator Relationship Specialty Start Date End Date Connie Lugo MD [address] [place], [place] [address]191 PCP - General Family Medicine 08/11/22 Florence Momin RN Specialty Primer Inspector Hematology/Oncology 10/28/22 Leno Quigley DO 1761 [facility] [address] [place], [place] [id number] Gastroenterology 01/03/23 Ivet Colin DO [address], [place] 27121256 Orthopedics 01/03/23 Nidhi Bowser V [address] E [facility] [place] [address]48 Internal Medicine 01/31/[address] [place] [address] [address] [place] [address] Registered Dietitian Nutrition 05/01/23 [place] [address] [place] [address] Blood and Marrow Transplant 04/17/23 Gilbert Means MD [address] [place] [address] Dermatology 06/27/24 Temo Gill, LATIA Research Nurse 11/23/22 Hot Pond Operator Relationship Specialty Start Date End Date Connie Lugo MD [address] [place] [address] PCP - General Family Medicine 08/11/22 Florence Momin RN Specialty Primer Inspector Hematology/Oncology 10/28/22 Leno Quigley DO 1761 [facility] [address] [place], [place] 704241 Gastroenterology 01/03/23 Ivet Colin DO [address], [place] [id number] Orthopedics 01/03/23 Nidhi Bowser V [address] [facility] [place] [address]0377[address]12[address] Internal Medicine 01/31/[address] [place] [address] [address] [place], [place] 8885906 Registered Dietitian Nutrition 05/01/23 [place] [address] [place], [place] 7589106 Blood and Marrow Transplant 04/17/23 Gilbert Means MD [address] [place] [address] Dermatology 06/27/24 Temo Gill, LATIA Research Nurse 11/23/22 Hot Pond Operator Relationship Specialty Start Date End Date Connie Lugo MD [address] [facility] 105 [place] [address] PCP - General Family Medicine 08/11/22 Florence Momin, RN Specialty Primer Inspector Hematology/Oncology 10/28/22 Leno Quigley DO 1761 [facility] [address] [place], [place] [id number] Gastroenterology 01/03/23 Ivet Colin DO [address], [place] [id number] Orthopedics 01/03/23 Nidhi Bowser V [address] [facility] [place] [address]1936691[address]12[address] Internal Medicine 01/31/[address] [place] [address] [place] [address] [place], [place] 4500706 Registered Dietitian Nutrition 05/01/23 [place] [address] [place], [place] 6224106 Blood and Marrow Transplant 04/17/23 Gilbert Means MD [address] [place] [address] Dermatology 06/27/24 Temo Gill, LATIA Research Nurse 11/23/22 Hot Pond Operator Relationship Specialty Start Date End Date Connie Lugo MD [address] [facility] 105 [place] [address] PCP - General Family Medicine 08/11/22 Florence Momin, RN Specialty Primer Inspector Hematology/Oncology 10/28/22 Leno Quigley DO 1761 [facility] [address] [place], [place] 815091 Gastroenterology 01/03/23 Ivet Colin DO [address], [place] 16224256 Orthopedics 01/03/23 Nidhi Bowser V [address] [facility] [place] [address]4308691[address]1248 Internal Medicine 01/31/[address] [place] [address] [place] [address] [place], [place] 0535706 Registered Dietitian Nutrition 05/01/23 [place] [address] [place], [place] 7553106 Blood and Marrow Transplant 04/17/23 Gilbert Means MD [address] [place] [address] Dermatology 06/27/24 Temo Gill, LATIA Research Nurse 11/23/22 Hot Pond Operator Relationship Specialty Start Date End Date Connie Lugo MD 128 [facility] [address] [place], [place] 100781 PCP - General Family Medicine 08/11/22 Florence Momin RN Specialty Primer Inspector Hematology/Oncology 10/28/22 Leno Quigley DO 1761 [facility] [address] [place], [place] [id number] Gastroenterology 01/03/23 Ivet Colin DO [address] [place] [address] Orthopedics 01/03/23 Nidhi Bowser V [address] [facility] [place] [address] Internal Medicine 01/31/[address] [place] [address] [address] [place], [place] 8989506 Registered Dietitian Nutrition 05/01/23 [place] [address] [place], [place] 8403806 Blood and Marrow Transplant 04/17/23 Gilbert Means MD [address] [place] [address] Dermatology 06/27/24 Temo Gill, LATIA Research Nurse 11/23/22 Hot Pond Operator Relationship Specialty Start Date End Date Connie Lugo MD 128 [facility] [address] [place], [place] 697071 PCP - General Family Medicine 08/11/22 Florence Momin RN Specialty Primer Inspector Hematology/Oncology 10/28/22 Leno Quigley DO 1761 [facility] [address] [place], [place] 154881 Gastroenterology 01/03/23 Ivet Colin DO [address] [place] [address] Orthopedics 01/03/23 Nidhi Bowser V [address] [place] [address] Internal Medicine 01/31/[address] [place] [address] [address] [place] [address] Registered Dietitian Nutrition 05/01/23 [place] [address] [place] [address] Blood and Marrow Transplant 04/17/23 Gilbert Means MD [address] [place] [address] Dermatology 06/27/24 Temo Gill, LATIA Research Nurse 11/23/22 Hot Pond Operator Relationship Specialty Start Date End Date Connie Lugo MD [address] [place] [address] PCP - General Family Medicine 08/11/22 Florence Momin RN Specialty Primer Inspector Hematology/Oncology 10/28/22 Leno Quigley DO 1761 [facility] [address] [place] [address] Gastroenterology 01/03/23 Ivet Colin DO [address], [place] 16492256 Orthopedics 01/03/23 Nidhi Bowser V [address] [place] [address]12[address] Internal Medicine 01/31/[address] [place] [address] [address] [place] [address] Registered Dietitian Nutrition 05/01/23 [place] [address] [place] [address] Blood and Marrow Transplant 04/17/23 Gilbert Means MD [address] [place] [address] Dermatology 06/27/24 Temo Gill, LATIA Research Nurse 11/23/22 Hot Pond Operator Relationship Specialty Start Date End Date Connie Lugo MD 128 [facility] [address] [place] [address] PCP - General Family Medicine 08/11/22 Florence Momin RN Specialty Primer Inspector Hematology/Oncology 10/28/22 Leno Quigley DO 1761 [facility] [address] [place], [place] [id number] Gastroenterology 01/03/23 Ivet Colin DO [address], [place] [id number] Orthopedics 01/03/23 Nidhi Bowser V [address] [place] [address]1248 Internal Medicine 01/31/[address] [place] [address] [place] [address] Registered Dietitian Nutrition 05/01/23 [place] [address] [place] [address] Blood and Marrow Transplant 04/17/23 Gilbert Means MD [address] [place] [address] Dermatology 06/27/24 Temo Gill, LATIA Research Nurse 11/23/22 Hot Pond Operator Relationship Specialty Start Date End Date Connie Lugo MD [address] [place] [address] PCP - General Family Medicine 08/11/22 Florence Momin RN Specialty Primer Inspector Hematology/Oncology 10/28/22 Leno Quigley DO 1761 [facility] [address] [place], [place] 509031 Gastroenterology 01/03/23 Ivet Colin DO [address], [place] 83928256 Orthopedics 01/03/23 Nidhi Bowser V [address] [place] [address] Internal Medicine 01/31/[address] [place] [address] [place] [address] [place] [address] Registered Dietitian Nutrition 05/01/23 [place] [address] [place] [address] Blood and Marrow Transplant 04/17/23 Gilbert Means MD [address] [place] [address] Dermatology 06/27/24 Temo Gill, LATIA Research Nurse 11/23/22 Hot Pond Operator Relationship Specialty Start Date End Date Connie Lugo MD [address] [place] [address] PCP - General Family Medicine 08/11/22 Florence Momin RN Specialty Primer Inspector Hematology/Oncology 10/28/22 Leno Quigley DO 1761 [facility] [address] [place], [place] 05734691 Gastroenterology 01/03/23 Ivet Colin DO [address], [place] 90544256 Orthopedics 01/03/23 Nidhi Bowser V [address] [facility] [place] [address] Internal Medicine 01/31/[address] [address] [place] 2852706 Registered Dietitian Nutrition 05/01/23 [place] [address] [place], [place] 5830306 Blood and Marrow Transplant 04/17/23 Gilbert Means MD [address] [place] [address] Dermatology 06/27/24 Temo GillLATIA Research Nurse 11/23/22 Hot Pond Operator Relationship Specialty Start Date End Date Connie Lugo MD [address] [facility] [address] [place], [place] 283741 PCP - General Family Medicine 08/11/22 Florence Momin RN Specialty Primer Inspector Hematology/Oncology 10/28/22 Leno Quigley DO 17[address] [facility] [address] [place], [place] 94308691 Gastroenterology 01/03/23 Ivet Colin DO [address], [place] 40986256 Orthopedics 01/03/23 Nidhi Bowser V [address] [address]12[address] Internal Medicine 01/31/[address] [place] [address] [address] [place] [address] Registered Dietitian Nutrition 05/01/23 [place] [address] [place] [address] Blood and Marrow Transplant 04/17/23 Gilbert Means MD [address] [place], [place] 29245256 Dermatology 06/27/24 Temo Gill RN Research Nurse 11/23/22 Hot Pond Operator Relationship Specialty Start Date End Date Connie Lugo MD [address] [facility] [address] [place] [address] PCP - General Family Medicine 08/11/22 Florence Momin, RN Specialty Primer Inspector Hematology/Oncology 10/28/22 Leno Quigley DO 17[address] [facility] [address] [place], [place] 405281 Gastroenterology 01/03/23 Ivet Colin DO [address], [place] 51664256 Orthopedics 01/03/23 Nidhi Bowser V [address] [place] [address]4234[address] Internal Medicine 01/31/[address] [place] [address] [address] [place] 1888106 Registered Dietitian Nutrition 05/01/23 [place] [address] [place], [place] 6570106 Blood and Marrow Transplant 04/17/23 Gilbert Means MD [address] [place] [address] Dermatology 06/27/24 Temo Gill, LATIA Research Nurse 11/23/22 Hot Pond Operator Relationship Specialty Start Date End Date Connie Lugo MD [address] [place], [place] 46419691 PCP - General Family Medicine 08/11/22 Florence Momin, RN Specialty Primer Inspector Hematology/Oncology 10/28/22 Leno Quigley DO 1761 [facility] [address] [place] [address] Gastroenterology 01/03/23 Ivet Colin DO [address], [place] 68371256 Orthopedics 01/03/23 Nidhi Bowser V [address] [place] [address]31691[address]12[address] Internal Medicine 01/31/[address] [address] [address] [place], [place] 6637606 Registered Dietitian Nutrition 05/01/23 [place] [address] [place], [place] 0369706 Blood and Marrow Transplant 04/17/23 Gilbert Means MD [address] [place], [place] 97977256 Dermatology 06/27/24 Temo Gill, LATIA Research Nurse 11/23/22 Hot Pond Operator Relationship Specialty Start Date End Date Connie Lugo MD [address] [place] [address] PCP - General Family Medicine 08/11/22 Florence Momin, LATIA Specialty Primer Inspector Hematology/Oncology 10/28/22 Leno Quigley DO 1761 [facility] [address] [place], [place] 91238691 Gastroenterology 01/03/23 Ivet Colin DO [address] [place], [place] 48841256 Orthopedics 01/03/23 Nidhi Bowser V [address] [place] [address]3589691[address]1248 Internal Medicine 01/31/[address] [address] [place], [place] 1284106 Registered Dietitian Nutrition 05/01/23 [place] [address] [place], [place] 6688806 Blood and Marrow Transplant 04/17/23 Gilbert Means MD [address] [place], [place] 13402256 Dermatology 06/27/24 Temo Gill, LATIA Research Nurse 11/23/22 Hot Pond Operator Relationship Specialty Start Date End Date Connie Lugo MD [address] [place] [address] PCP - General Family Medicine 08/11/22 Florence Momin, RN Specialty Primer Inspector Hematology/Oncology 10/28/22 Leno Quigley DO 1761 [facility] [address] [place], [place] 72657691 Gastroenterology 01/03/23 Ivet Colin DO [address], [place] 59385256 Orthopedics 01/03/23 Nidhi Bowser V [address] [place] [address]5796691[address]1248 Internal Medicine 01/31/[address] [place] [address] [address] [address] [place] 2348906 Registered Dietitian Nutrition 05/01/23 [place] [address] [place], [place] 3420006 Blood and Marrow Transplant 04/17/23 Gilbert Means MD [address] [place], [place] 53420256 Dermatology 06/27/24 Temo Gill, LATIA Research Nurse 11/23/22 Hot Pond Operator Relationship Specialty Start Date End Date Connie Lugo MD [address] [place] [address] PCP - General Family Medicine 08/11/22 Florence Momin, RN Specialty Primer Inspector Hematology/Oncology 10/28/22 Leno Quigley DO 1761 [facility] [address] [place], [place] 32697691 Gastroenterology 01/03/23 Ivet Colin DO [address], [place] 23267256 Orthopedics 01/03/23 Nidhi Bowser V [address] [place] [address]15741248 Internal Medicine 01/31/[address] [place] [address] [address] [place], [place] 7282506 Registered Dietitian Nutrition 05/01/23 [place] [address] [place] [address] Blood and Marrow Transplant 04/17/23 Gilbert Means MD [address] [place], [place] [phone] Dermatology 06/27/24 Temo Gill, LATIA Research Nurse 11/23/22 Hot Pond Operator Relationship Specialty Start Date End Date Connie Lugo MD [address] [place] [address] PCP - General Family Medicine 08/11/22 Florence Momin RN Specialty Primer Inspector Hematology/Oncology 10/28/22 Leno Quigley DO 1761 [facility] [address] [place], [place] 007341 Gastroenterology 01/03/23 Ivet Colin DO [address], [place] 83404256 Orthopedics 01/03/23 Nidhi Bowser V [address] [place] [address]1248 Internal Medicine 01/31/[address] [address] [place], [place] 3196906 Registered Dietitian Nutrition 05/01/23 [place] [address] [place] [address] Blood and Marrow Transplant 04/17/23 Gilbert Means MD [address] [place] [address] Dermatology 06/27/24 Temo Gill, LATIA Research Nurse 11/23/22 Hot Pond Operator Relationship Specialty Start Date End Date Connie Lugo MD [address] [place] [address] PCP - General Family Medicine 08/11/22 Florence Momin RN Specialty Primer Inspector Hematology/Oncology 10/28/22 Leno Quigley DO 1761 [facility] [address] [place], [place] 925101 Gastroenterology 01/03/23 Ivet Colin DO [address], [place] 45808256 Orthopedics 01/03/23 Nidhi Bowser V [address] [place] [address] Internal Medicine 01/31/[address] [place] [address] [address] [place] [address] Registered Dietitian Nutrition 05/01/23 [place] [address] [place], [place] 7213706 Blood and Marrow Transplant 04/17/23 Gilbert Means MD [address] [place] [address] Dermatology 06/27/24 Temo Gill, LATIA Research Nurse 11/23/22 Hot Pond Operator Relationship Specialty Start Date End Date Connie Lugo MD 128 [facility] 105 [place] [address] PCP - General Family Medicine 08/11/22 Florence Momin RN Specialty Primer Inspector Hematology/Oncology 10/28/22 Leno Quigley DO 1761 [facility] [address] [place], [place] 816411 Gastroenterology 01/03/23 Ivet Colin DO [address], [place] 64433256 Orthopedics 01/03/23 Nidhi Bowser V [address] [facility] [place] [address]12[address] Internal Medicine 01/31/[address] [address] [place] [address] [place], [place] 5067406 Registered Dietitian Nutrition 05/01/23 [place] [address] [place], [place] 0750206 Blood and Marrow Transplant 04/17/23 Gilbert Means MD [address] [place] [address] Dermatology 06/27/24 Temo Gill, LATIA Research Nurse 11/23/22 Hot Pond Operator Relationship Specialty Start Date End Date Connie Lugo MD [address] [facility] 105 [place] [address] PCP - General Family Medicine 08/11/22 Florence Momin, RN Specialty Primer Inspector Hematology/Oncology 10/28/22 Leno Quigley DO 1761 [facility] [address] [place], [place] 316501 Gastroenterology 01/03/23 Ivet Colin DO [address] [place] [address] Orthopedics 01/03/23 Nidhi Bowser V [address] [facility] [place] [address] Internal Medicine 01/31/[address] [place] [address] [address] [place], [place] 0986506 Registered Dietitian Nutrition 05/01/23 [place] [address] [place], [place] 8153506 Blood and Marrow Transplant 04/17/23 Gilbert Means MD [address] [place] [address] Dermatology 06/27/24 Temo Gill, LATIA Research Nurse 11/23/22 Hot Pond Operator Relationship Specialty Start Date End Date Connie Lugo MD [address] [facility] 105 [place] [address] PCP - General Family Medicine 08/11/22 Florence Momin, RN Specialty Primer Inspector Hematology/Oncology 10/28/22 Leno Quigley DO 1761 [facility] [address] [place], [place] 760511 Gastroenterology 01/03/23 Ivet Colin DO [address] [place] [address] Orthopedics 01/03/23 Nidhi Bowser V [address] [facility] [place] [address] Internal Medicine 01/31/[address] [place] [address] [place] [address] [place], [place] 3753806 Registered Dietitian Nutrition 05/01/23 [place] [address] [place], [place] 8996306 Blood and Marrow Transplant 04/17/23 Gilbert Means MD [address] [place] [address] Dermatology 06/27/24 Temo Gill, LATIA Research Nurse 11/23/22 Hot Pond Operator Relationship Specialty Start Date End Date Connie Lugo MD 128 [facility] AMI [address] [place], [place] 460791 PCP - General Family Medicine 08/11/22 Florence Momin RN Specialty Primer Inspector Hematology/Oncology 10/28/22 Leno Quigley DO 1761 [facility] [address] [place], [place] 581541 Gastroenterology 01/03/23 Ivet Colin DO [address] [place] [address] Orthopedics 01/03/23 Nidhi Bowser V [address] [facility] [place] [address] Internal Medicine 01/31/[address] [place] [address] [place], [place] 9690006 Registered Dietitian Nutrition 05/01/23 [place] [address] [place], [place] 1223406 Blood and Marrow Transplant 04/17/23 Gilbert Means MD [address] [place] [address] Dermatology 06/27/24 Temo Gill, LATIA Research Nurse 11/23/22 Hot Pond Operator Relationship Specialty Start Date End Date Connie Lugo MD 128 [facility] AM[address] [place], [place] 144071 PCP - General Family Medicine 08/11/22 Florence Momin RN Specialty Primer Inspector Hematology/Oncology 10/28/22 Leno Quigley DO 1761 [facility] [address] [place], [place] 724471 Gastroenterology 01/03/23 Ivet Colin DO [address] [place] [address] Orthopedics 01/03/23 Nidhi Bowser V [address] [place] [address]2688[address]1248 Internal Medicine 01/31/[address] [place] [address] [address] [place] [address] Registered Dietitian Nutrition 05/01/23 [place] [address] [place] [address] Blood and Marrow Transplant 04/17/23 Gilbert Means MD [address] [place] [address] Dermatology 06/27/24 Temo Gill, LATIA Research Nurse 11/23/22 Hot Pond Operator Relationship Specialty Start Date End Date Connie Lugo MD 128 [facility] AMI [address] [place], [place] 27288691 PCP - General Family Medicine 08/11/22 Florence Momin RN Specialty Primer Inspector Hematology/Oncology 10/28/22 Leno Quigley DO 1761 [facility] [address] [place] [address] Gastroenterology 01/03/23 Ivet Colin DO [address], [place] 39583256 Orthopedics 01/03/23 Nidhi Bowser V [address] [place] [address] Internal Medicine 01/31/[address] [place] [address] [place] [address] [place] [address] Registered Dietitian Nutrition 05/01/23 [place] [address] [place] [address] Blood and Marrow Transplant 04/17/23 Gilbert Means MD [address] [place] [address] Dermatology 06/27/24 Temo Gill, LATIA Research Nurse 11/23/22 Hot Pond Operator Relationship Specialty Start Date End Date Connie Lugo MD 128 [facility] [address] [address] [place], [place] 42577691 PCP - General Family Medicine 08/11/22 Florence Momin RN Specialty Primer Inspector Hematology/Oncology 10/28/22 Leno Quigley DO 1761 [facility] [address] [place], [place] 83886691 Gastroenterology 01/03/23 Ivet Colin DO [address], [place] 51812256 Orthopedics 01/03/23 Nidhi Bowser V [address] E [facility] [place] [address] Internal Medicine 01/31/[address] [place] [address] [address] [place] [address] Registered Dietitian Nutrition 05/01/23 [place] [address] [place] [address] Blood and Marrow Transplant 04/17/23 Gilbert Means MD [address] [place] [address] Dermatology 06/27/24 Temo Gill, LATIA Research Nurse 11/23/22 Hot Pond Operator Relationship Specialty Start Date End Date Connie Lugo MD 128 [facility] [address] [address] [place], [place] 47206691 PCP - General Family Medicine 08/11/22 Florence Momin RN Specialty Primer Inspector Hematology/Oncology 10/28/22 Leno Quigley DO 1761 [facility] [address] [place], [place] [id number] Gastroenterology 01/03/23 Ivet Colin DO [address] [place], [place] 82791256 Orthopedics 01/03/23 Nidhi Bowser V [address] [place] [address] Internal Medicine 01/31/[address] [place] [address] [address] [place] [address] Registered Dietitian Nutrition 05/01/23 [place] [address] [place] [address] Blood and Marrow Transplant 04/17/23 Gilbert Means MD [address] [place] [address] Dermatology 06/27/24 Temo Gill, LATIA Research Nurse 11/23/22 Hot Pond Operator Relationship Specialty Start Date End Date Connie Lugo MD 128 [facility] [facility] [address] [place] [address] PCP - General Family Medicine 08/11/22 Florence Momin RN Specialty Primer Inspector Hematology/Oncology 10/28/22 Leno Quigley DO [address] [facility] [address] [place], [place] [id number] Gastroenterology 01/03/23 Ivet Colin DO [address] [place], [place] [id number] Orthopedics 01/03/23 Nidhi Bowser V [address] E [facility] [place] [address]1669[address] Internal Medicine 01/31/[address] [address] [place], [place] [id number] Registered Dietitian Nutrition 05/01/23 [place] [address] [place], [place] [id number] Blood and Marrow Transplant 04/17/23 Gilbert Means MD [address] [place] [address] Dermatology 06/27/24 Temo Gill, LATIA Research Nurse 11/23/22 Hot Pond Operator Relationship Specialty Start Date End Date Connie Lugo MD 128 [facility] [address] [place], [place] 149611 PCP - General Family Medicine 08/11/22 Florence Momin RN Specialty Primer Inspector Hematology/Oncology 10/28/22 Leno Quigley DO 1761 [facility] [address] [place], [place] [id number] Gastroenterology 01/03/23 Ivet Colin DO [address] [place], [place] [id number] Orthopedics 01/03/23 Nidhi Bowser V [address] E [facility] [place] [address]25[address]12[address] Internal Medicine 01/31/[address] [place] [address] [address] [place] [address] Registered Dietitian Nutrition 05/01/23 [place] [address] [place] [address] Blood and Marrow Transplant 04/17/23 Gilbert Means MD [address] [place] [address] Dermatology 06/27/24 Temo Gill, LATIA Research Nurse 11/23/22 Hot Pond Operator Relationship Specialty Start Date End Date Connie Lugo MD 128 [facility] [address] [address] [place] [address] PCP - General Family Medicine 08/11/22 Florence Momin, RN Specialty Primer Inspector Hematology/Oncology 10/28/22 Leno Quigley DO [address] [facility] [address] [place], [place] 162081 Gastroenterology 01/03/23 Ivet Colin DO [address] [place], [place] [id number] Orthopedics 01/03/23 Nidhi Bowser V [address] [place] [address]76826[address] Internal Medicine 01/31/[address] [place] [address] [address] [address] [place] 3607606 Registered Dietitian Nutrition 05/01/23 [place] [address] [place], [place] [phone] Blood and Marrow Transplant 04/17/23 Gilbert Means MD [address] [place] [address] Dermatology 06/27/24 Temo Gill, RN Research Nurse 11/23/22 Hot Pond Operator Relationship Specialty Start Date End Date Connie Lugo MD 128 [address] [place], [place] [phone] PCP - General Family Medicine 08/11/22 Florence Momin, RN Specialty Primer Inspector Hematology/Oncology 10/28/22 Leno Quigley DO 1761 [facility] [address] [place], [place] [id number] Gastroenterology 01/03/23 Ivet Colin DO [address] [place], [place] [id number] Orthopedics 01/03/23 Nidhi Bowser V [address] [facility] [address]6976691[address]12[address] Internal Medicine 01/31/[address] [place] [address] [address] [place], [place] [phone] Registered Dietitian Nutrition 05/01/23 [place] [address] [place], [place] [phone] Blood and Marrow Transplant 04/17/23 Gilbert Means MD [address] [place], [place] [phone] Dermatology 06/27/24 Temo Gill, LATIA Research Nurse 11/23/22 Hot Pond Operator Relationship Specialty Start Date End Date Connie Lugo MD [address] [facility] [address] [place], [place] [phone] PCP - General Family Medicine 08/11/22 Florence Momin, LATIA Specialty Primer Inspector Hematology/Oncology 10/28/22 Leno uQigley DO 17[address] [facility] [address] [place], [place] [id number] Gastroenterology 01/03/23 Ivet Colin DO [address] [place] [address] Orthopedics 01/03/23 Nidhi Bowser V [address] [place] [address] Internal Medicine 01/31/[address] [place] [address] [address] [place], [place] 2609206 Registered Dietitian Nutrition 05/01/23 Gilbert Means MD [address] [place] [address] Dermatology 06/27/24 Temo Gill RN Research Nurse 11/23/22 Hot Pond Operator Relationship Specialty Start Date End Date Connie Lugo MD 128 [facility] [address] [place] [address] PCP - General Family Medicine 08/11/22 Florence Momin, RN Specialty Primer Inspector Hematology/Oncology 10/28/22 Leno Quigley DO [address] [facility] [address] [address] [place] [address] Gastroenterology 01/03/23 Ivet Colin DO [address] [place] [address] Orthopedics 01/03/23 Nidhi Bowser V [address] [place] [address] Internal Medicine 01/31/[address] [place] [address] [address] [place] [address] Registered Dietitian Nutrition 05/01/23 Gilbert Means MD [address] [place] [address] Dermatology 06/27/24 Temo Glil, RN Research Nurse 11/23/22 Hot Pond Operator Relationship Specialty Start Date End Date Connie Lugo MD 128 [facility] [address] [address] [place] [address] PCP - General Family Medicine 08/11/22 Florence Momin RN Specialty Primer Inspector Hematology/Oncology 10/28/22 Leno Quigley DO 1761 [facility] [address] [place] [address] Gastroenterology 01/03/23 Ivet Colin DO [address] [place] [address] Orthopedics 01/03/23 Nidhi Bowser V [address] E [facility] [address]1248 Internal Medicine 01/31/[address] [place] [address] [address] [place] [address] Registered Dietitian Nutrition 05/01/23 Gilbert Means MD [address] [place] [address] Dermatology 06/27/24 Temo Gill, RN Research Nurse 11/23/22 Hot Pond Operator Relationship Specialty Start Date End Date Connie Lugo MD 128 [facility] [address] [place] [address] PCP - General Family Medicine 08/11/22 Florence Momin, RN Specialty Primer Inspector Hematology/Oncology 10/28/22 Leno Quigley DO 1761 [facility] [address] [place], [place] 799681 Gastroenterology 01/03/23 Ivet Colin DO [address] [place] [address] Orthopedics 01/03/23 Nidhi Bowser V [address] [facility] [place] [address] Internal Medicine 01/31/[address] [place] [address] [address] [place] [address] Registered Dietitian Nutrition 05/01/23 Gilbert Means MD [address] [place] [address] Dermatology 06/27/24 Temo Gill, LATIA Research Nurse 11/23/22 Hot Pond Operator Relationship Specialty Start Date End Date Connie Lugo MD 128 [facility] [address] [place], [place] 744421 PCP - General Family Medicine 08/11/22 Florence Momin, RN Specialty Primer Inspector Hematology/Oncology 10/28/22 Leno Quigley DO 1761 [facility] [address] [place] [address] Gastroenterology 01/03/23 Ivet Colin DO [address] [place] [address] Orthopedics 01/03/23 Nidhi Bowser V [address] [place] [place] [address] Internal Medicine 01/31/[address] [place] [address] [address] [place] [address] Registered Dietitian Nutrition 05/01/23 Gilbert Means MD [address] [place] [address] Dermatology 06/27/24 Temo Gill RN Research Nurse 11/23/22 Hot Pond Operator Relationship Specialty Start Date End Date Connie Lugo MD 128 [facility] [address] [place], [place] 429071 PCP - General Family Medicine 08/11/22 Flornece Momin RN Specialty Primer Inspector Hematology/Oncology 10/28/22 Leno Quigley DO 17[address] [facility] [address] [place] [address] Gastroenterology 01/03/23 Ivet Colin DO [address] [place] [address] Orthopedics 01/03/23 Nidhi Bowser V [address] [place] [address] Internal Medicine 01/31/[address] [place] [address] [place] [address] Registered Dietitian Nutrition 05/01/23 Gilbert Means MD [address] [place] [address] Dermatology 06/27/24 Temo Gill, RN Research Nurse 11/23/22 Hot Pond Operator Relationship Specialty Start Date End Date Connie Lugo MD [address] [facility] [address] [place], [place] 309031 PCP - General Family Medicine 08/11/22 Florence Momin RN Specialty Primer Inspector Hematology/Oncology 10/28/22 Leno Quigley DO 1761 [facility] [address] [place], [place] 591281 Gastroenterology 01/03/23 Ivet Colin DO [address] [place], [place] [id number] Orthopedics 01/03/23 Nidhi Bowser V [address] [facility] [place] [address]48 Internal Medicine 01/31/[address] [place] [address] [place] [address] Registered Dietitian Nutrition 05/01/23 Gilbert Means MD [address] [place] [address] Dermatology 06/27/24 Temo Gill, LATIA Research Nurse 11/23/22 Hot Pond Operator Relationship Specialty Start Date End Date Connie Lugo MD 128 [facility] [address] [place], [place] [address]1951 PCP - General Family Medicine 08/11/22 Florence Momin, RN Specialty Primer Inspector Hematology/Oncology 10/28/22 Leno Quigley DO 1761 [facility] [address] [place], [place] 531451 Gastroenterology 01/03/23 Ivet Colin DO [address] [place], [place] [id number] Orthopedics 01/03/23 Nidhi Bowser V [address] [facility] [place] [address]54691248 Internal Medicine 01/31/[address] [place] [address] [address] [place] [address] Registered Dietitian Nutrition 05/01/23 Gilbert Means MD [address] [place] [address] Dermatology 06/27/24 Temo Gill, LATIA Research Nurse 11/23/22 Hot Pond Operator Relationship Specialty Start Date End Date Connie Lugo MD 128 [facility] [address] [address] [place], [place] 330291 PCP - General Family Medicine 08/11/22 Florence Momin, RN Specialty Primer Inspector Hematology/Oncology 10/28/22 Leno Quigley DO 1761 [facility] [address] [place] [address] Gastroenterology 01/03/23 Ivet Colin DO [address] [place] [address] Orthopedics 01/03/23 Nidhi Bowser V [address] [place] [address]3691[address]1248 Internal Medicine 01/31/[address] [place] [address] [address] [place] [address] Registered Dietitian Nutrition 05/01/23 Gilbert Means MD [address] [place], [place] [phone] Dermatology 06/27/24 Temo Gill RN Research Nurse 11/23/22 Hot Pond Operator Relationship Specialty Start Date End Date Connie Lugo MD 128 [facility] [address] [place], [place] [address] PCP - General Family Medicine 08/11/22 Florence Momin RN Specialty Primer Inspector Hematology/Oncology 10/28/22 Leno Quigley DO 17[address] [facility] [address] [place], [place] 361051 Gastroenterology 01/03/23 Ivet Colin DO [address] [place] [address] Orthopedics 01/03/23 Nidhi Bowser V [address] [place] [address]0473691[address]1248 Internal Medicine 01/31/[address] [place] [address] [place] [address] [place] [address] Registered Dietitian Nutrition 05/01/23 Gilbert Means MD [address] [place] [address] Dermatology 06/27/24 Temo Gill, LATIA Research Nurse 11/23/22 Hot Pond Operator Relationship Specialty Start Date End Date Connie Lugo MD 128 [facility] [address] [place] [address] PCP - General Family Medicine 08/11/22 Florence Momin RN Specialty Primer Inspector Hematology/Oncology 10/28/22 Leno Quigley DO 17[address] [facility] [address] [place] [address] Gastroenterology 01/03/23 Ivet Colin DO [address] [place] [address] Orthopedics 01/03/23 Nidhi Bowser V [address] [facility] [address]95241248 Internal Medicine 01/31/[address] [place] [address] [address] [place] [address] Registered Dietitian Nutrition 05/01/23 Gilbert Means MD [address] [place] [address] Dermatology 06/27/24 Temo Gill, LATIA Research Nurse 11/23/22 Hot Pond Operator Relationship Specialty Start Date End Date Connie Lugo MD 128 [facility] [address] [place] [address] PCP - General Family Medicine 08/11/22 Florence Momin, RN Specialty Primer Inspector Hematology/Oncology 10/28/22 Leno Quigley DO 1761 [facility] [address] [place] [address] Gastroenterology 01/03/23 Ivet Colin DO [address] [place] [address] Orthopedics 01/03/23 Nidhi Bowser V [address] [facility] [address]12[address] Internal Medicine 01/31/[address] [place] [address] [address] [place] [address] Registered Dietitian Nutrition 05/01/23 Gilbert Means MD [address] [place] [address] Dermatology 06/27/24 Temo Gill, LATIA Research Nurse 11/23/22 Hot Pond Operator Relationship Specialty Start Date End Date Connie Lugo MD 128 [facility] [address] [place] [address] PCP - General Family Medicine 08/11/22 Florence Momin RN Specialty Primer Inspector Hematology/Oncology 10/28/22 Leno Quigley DO 1761 [facility] [address] [place] [address] Gastroenterology 01/03/23 Ivet Colin DO [address] [place] [address] Orthopedics 01/03/23 Nidhi Bowser V [address] [facility] [place] [address] Internal Medicine 01/31/[address] [place] [address] [place] [address] [place] [address] Registered Dietitian Nutrition 05/01/23 Gilbert Means MD [address] [place] [address] Dermatology 06/27/24 Temo Gill RN Research Nurse 11/23/22 Hot Pond Operator Relationship Specialty Start Date End Date Connie Lugo MD 128 [facility] [address] [place], [place] [address]01 PCP - General Family Medicine 08/11/22 Florence Momin RN Specialty Primer Inspector Hematology/Oncology 10/28/22 Leno Quigley DO 1761 [facility] [address] [place], [place] 457271 Gastroenterology 01/03/23 Ivet Colin DO [address] [place] [address] Orthopedics 01/03/23 Nidhi Bowser V [address] E [facility] [place] [address] Internal Medicine 01/31/[address] [place] [address] [address] [place], [place] 5814206 Registered Dietitian Nutrition 05/01/23 Gilbert Means MD [address] [place] [address] Dermatology 06/27/24 Temo Gill, LATIA Research Nurse 11/23/22 [facility] [address] [place] [address] Specialty Primer Inspector Orthopedics 04/21/25 06/27/25 Hot Pond Operator Relationship Specialty Start Date End Date Connie Lugo MD [address] [facility] [address] [place] [address] PCP - General Family Medicine 08/11/22 Florence Momin RN Specialty Primer Inspector Hematology/Oncology 10/28/22 Leno Quigley DO 1761 [facility] [address] [place] [address] Gastroenterology 01/03/23 Ivet Colin DO [address] [place] [address] Orthopedics 01/03/23 Nidhi Bowser V [address] E [facility] [address] Internal Medicine 01/31/[address] [place] [address] [address] [place], [place] 5881806 Registered Dietitian Nutrition 05/01/23 Gilbert Means MD [address] [place] [address] Dermatology 06/27/24 Temo Gill, LATIA Research Nurse 11/23/22 Too Bryant [facility] [address] [place] [address] Specialty Primer Inspector Orthopedics 04/21/25 06/27/25 Hot Pond Operator Relationship Specialty Start Date End Date Connie Lugo MD [address] [place] [address] PCP - General Family Medicine 08/11/22 Florence Momin RN Specialty Primer Inspector Hematology/Oncology 10/28/22 Leno Quigley DO 1761 [facility] [address] [place] [address] Gastroenterology 01/03/23 Ivet Colin DO [address] [place] [address] Orthopedics 01/03/23 Nidhi Bowser V [address] [place] [address]318[address]48 Internal Medicine 01/31/[address] [place] [address] [place] [address] Registered Dietitian Nutrition 05/01/23 Gilbert Means MD [address] [place] [address] Dermatology 06/27/24 Temo Gill, RN Research Nurse 11/23/22 Too Bryant, [facility] [address] [place] [address] Specialty Primer Inspector Orthopedics 04/21/25 06/27/25 Hot Pond Operator Relationship Specialty Start Date End Date Connie Lugo MD 128 [facility] [address] [place] [address] PCP - General Family Medicine 08/11/22 Florence Momin RN Specialty Primer Inspector Hematology/Oncology 10/28/22 Leno Quigley DO 1761 [facility] [address] [place] [address] Gastroenterology 01/03/23 Ivet Colin DO [address] [place] [address] Orthopedics 01/03/23 Nidhi Bowser V [address] [facility] [place] [address] Internal Medicine 01/31/[address] [place] [address] [address] [place] [address] Registered Dietitian Nutrition 05/01/23 Gilbert Means MD [address] [place] [address] Dermatology 06/27/24 Temo Gill, LATIA Research Nurse 11/23/22 Too Bryant, [facility] [address] [place] [address] Specialty Primer Inspector Orthopedics 04/21/25 06/27/25 Hot Pond Operator Relationship Specialty Start Date End Date Connie Lugo MD 128 [facility] [address] [place] [address] PCP - General Family Medicine 08/11/22 Florence Momin, RN Specialty Primer Inspector Hematology/Oncology 10/28/22 Leno Quigley DO [address] [facility] [address] [place] [address] Gastroenterology 01/03/23 Ivet Colin DO [address] [place] [address] Orthopedics 01/03/23 Nidhi Bowser V [address] [place] [address] Internal Medicine 01/31/[address] [place] [address] [place] [address] [place] [address] Registered Dietitian Nutrition 05/01/23 Gilbert Means MD [address] [place] [address] Dermatology 06/27/24 Temo Gill, LATIA Research Nurse 11/23/22 Too Bryant [facility] [address] [place] [address] Specialty Primer Inspector Orthopedics 04/21/25 06/27/25 Hot Pond Operator Relationship Specialty Start Date End Date Connie Lugo MD 128 [address] [place] [address] PCP - General Family Medicine 08/11/22 Florence Momin, RN Specialty Primer Inspector Hematology/Oncology 10/28/22 Leno Quigley DO 176 [facility] [address] [place] [address] Gastroenterology 01/03/23 Ivet Colin DO [address] [place] [address] Orthopedics 01/03/23 Nidhi Bowser V [address] [facility] [place] [address] Internal Medicine 01/31/[address] [place] [address] [place] [address] Registered Dietitian Nutrition 05/01/23 Gilbert Means MD [address] [place] [address] Dermatology 06/27/24 Temo Gill, LATIA Research Nurse 11/23/22 Too Bryant [facility] [address] [place] [address] Specialty Primer Inspector Orthopedics 04/21/25 06/27/25 Hot Pond Operator Relationship Specialty Start Date End Date Connie Lugo MD 128 [facility] [address] [address] [place], [place] [address]181 PCP - General Family Medicine 08/11/22 Florence Momin RN Specialty Primer Inspector Hematology/Oncology 10/28/22 Leno Quigley DO [address]61 [facility] [address] [place], [place] [address]071 Gastroenterology 01/03/23 Ivet Colin DO [address] [place] [address] Orthopedics 01/03/23 Nidhi Bowser V [address] [facility] [address] Internal Medicine 01/31/[address] [place] [address] [address] [place] [address] Registered Dietitian Nutrition 05/01/23 Glibert Means MD [address] [place] [address] Dermatology 06/27/24 Temo Gill, LATIA Research Nurse 11/23/22 Too Bryant [facility] [address] [place] [address] Specialty Primer Inspector Orthopedics 04/21/25 06/27/25 Hot Pond Operator Relationship Specialty Start Date End Date Connie Lugo MD 128 [facility] [address] [place] [address] PCP - General Family Medicine 08/11/22 Florence Momin, LATIA Specialty Primer Inspector Hematology/Oncology 10/28/22 Leno Quigley DO 1761 [facility] [address] [place] [address] Gastroenterology 01/03/23 Ivet Colin DO [address] [place] [address] Orthopedics 01/03/23 Nidhi Bowser V 324 E [facility] [place] [address] Internal Medicine 01/31/[address] [place] [address] [place] [address] [place] [address] Registered Dietitian Nutrition 05/01/23 Gilbert Means MD [address] [place] [address] Dermatology 06/27/24 Temo Gill, RN Research Nurse 11/23/22 Too Bryant [facility] [address] [place] [address] Specialty Primer Inspector Orthopedics 04/21/25 06/27/25 Inactive Administered Medications - up to 3 most recent administrations Administered Medications (un recognized section and content) Medication Order MAR Action Action Date Dose Rate Site zoledronic qt-drikbjxj-6.9NaCl 4 mg iv piggyback 100 mL (ZOMETA) 4 mg, INTRAVENOUS, Administer over 15 Minutes, ONCE, 1 dose, On Renay 12/14/23 at 0930, Hazardous Potential Reproductive Risk Drug: Use appropriate PPE. New Bag/Syringe/Bottle 12/14/2023 9:07 AM EST 4 mg Inactive Administered Medications - up to 3 most recent administrations Medication Order MAR Action Action Date Dose Rate Site zoledronic nw-wgnntyic-3.9NaCl 4 mg iv piggyback 100 mL (ZOMETA) 4 mg, INTRAVENOUS, Administer over 15 Minutes, ONCE, 1 dose, On Renay 01/11/24 at 1000, Hazardous Potential Reproductive Risk Drug: Use appropriate PPE. New Bag/Syringe/Bottle 01/11/2024 10:15 AM EDT 4 mg Inactive Administered Medications - up to 3 most recent administrations Medication Order MAR Action Action Date Dose Rate Site zoledronic wb-amziudci-3.9NaCl 4 mg iv piggyback 100 mL (ZOMETA) 4 mg, INTRAVENOUS, Administer over 15 Minutes, ONCE, 1 dose, On Renay 02/08/24 at 1030, Hazardous Potential Reproductive Risk Drug: Use appropriate PPE. New Bag/Syringe/Bottle 02/08/2024 10:23 AM EDT 4 mg FOR RECORDS PERTAINING TO PATIENTS WHO ARE OR HAVE BEEN ENROLLED IN A CHEMICAL DEPENDENCY/SUBSTANCEABUSE PROGRAM, SOME INFORMATION MAY BE OMITTED. This clinical summary was aggregated from multiple sources. Caution should be exercised in using it in the provision of clinical care. This summary normalizes information from multiple sources, and as a consequence, information in this document may materially change the coding, format and clinical context of patient data. In addition, data may be omitted in some cases. CLINICAL DECISIONS SHOULD BE BASED ON THE PRIMARY CLINICAL RECORDS. [facility] [employer] [facility] provides no warranty or guarantee of the accuracy or completeness of information in this document.
[2025-05-31 14:22] LABS: Hematocrit 31.3 % (40-54); Hemoglobin 10.3 g/dL (13.0-16.5); Immature Granulocytes Count 0.050 X10^3/uL (0.0-0.0); Mean Corp Hgb Conc 32.9 g/dL (32-36); Mean Corpuscular Volume 96.3 fL (80-94); Mean Platelet Vol. 10.2 fl (6.2-12.0); NRBC Flagged by Analyzer 0 % (0-5); Platelet Count 304 K/mm3 (150-450); RBC Distribution Width CV 15.9 % (11.6-14.6); RBC Distribution Width SD 55.8 fl (35.1-43.9); Red Blood Count 3.25 M/mm3 (4.6-6.2); White Blood Count 4.1 K/mm3 (4.4-11.0)
[2025-05-31 14:45] LABS: Anion Gap 12 (5-15); BUN 14 mg/dL (4-19); BUN/Creat Ratio 13.5 RATIO (10-20); Calcium,Total 8.8 mg/dL (7.6-11.0); Carbon Dioxide 22.2 mmol/L (21.0-32.0); Chloride 104 mmol/L (98-108); Estimated Creatinine Clearance 68.77 ml/min (50-250); Glucose 113 mg/dL (70-99); Potassium 4.2 mmol/L (3.3-5.1)
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
[2025-05-31 16:23] VITALS: BP 186/68; PULSE 84; RESP 18
--- NOTE | 2025-05-31 21:34 | ED.RN ---
2129: This RN was approached by the patient's spouse, who is upset that they have not had any updates from the social worker clinical. This RN explained the plan of care for her at this time to the best of this RN's knowledge. The patient's states, well if we're going to be here all night then I am going to take him home. We are not going to sit here all night. This RN notified the charge nurse and ARIADNE Aragon. 2134: ARIADNE at bedside with the patient and his .
--- NOTE | 2025-05-31 21:43 | CM.ED ---
Social Work Update on placements: [facility]: Spoke with Sarah, no beds available. (19:04) [facility]: Spoke with Estefania: has 1 possible bed available. Staff Interpreter faxed over referral packet. (19:25) [facility], spoke with Ad[facility]; has a bed available, social services designee faxed over referral packet (19:37) Staff Interpreter updated patient's (19:40) sanitation worker made phone contact with Yesica with [facility] and faxed over referral packet to assist with placement (21:29) Staff Interpreter updated patient's (21:43). Patient's tearful and appears to be overwhelmed. Patient's constantly standing over patient, rubbing patient's face, adjusting patient's cover and repositioning patient's legs and appears to be under an enormous amount of stress. Patient's stated she's not leaving patients side and stated her daughter may also come to the room. Patient had his eyes closed and social services designee recommended trying to let patient sleep which patient's was agreeable to. Staff Interpreter turned off light and requested a comfortable, reclining chair for patient's or other family member who may be sleeping in patient's room during the night. Staff Interpreter tried to offer support and validation to patient's . Zahida Murray, ANIMAL RESEARCHER, VOLUNTEER SERVICES MANAGER
[2025-06-01] VITALS: BP 154/78; PULSE 66; RESP 18; TEMP 36.7; O2SAT 96
--- NOTE | 2025-06-01 03:05 | EKG12_ITS ---
Test Reason : [facility] [place] Blood Pressure : */* mmHG Vent. Rate : 59 BPM Atrial Rate : 59 BPM P-R Int : 134 ms QRS Dur : 150 ms QT Int : 462 ms P-R-T Axes : 41 -38 28 degrees QTcB Int : 457 ms Sinus bradycardia Left axis deviation Right bundle branch block Abnormal ECG Confirmed by NIRMAL GREENBERG, NEETA ([id number]), editor map MARLY LIND ([id number]) on 06/02/2025 1:13:26 PM Referred By: Confirmed By: NEETA KINNEY MD
--- NOTE | 2025-06-01 03:07 | PCA ---
PT ACCEPTED AT [facility]-[address] N2N [phone] OPT 2 FOR N2N.
[2025-06-01 03:24] LABS: Alcohol, Blood (Medical)-Serum < 10.1 mg/dL (<=10.0)
[2025-06-01 04:11] LABS: Barbiturate Urine NEGATIVE (< 200 ng/mL); Benzodiazepine Urine PRESUMPTIVE POSITIVE (< 200 ng/mL); THC Urine NEGATIVE (< 50 ng/mL)
[2025-06-01 05:13] LABS: PCP Urine NEGATIVE (< 25 ng/mL)
[2025-06-01 06:13] VITALS: BP 138/82; PULSE 58; RESP 16; TEMP 36.7; O2SAT 98
[2025-06-01 06:14] VITALS: BP 138/82; PULSE 58; RESP 16; TEMP 36.7; O2SAT 98
== END 2025-06-01 08:45 ==
PROVIDERS: Emergency Medicine; Emergency Provider Emergency Medicine; PCP Family Medicine; Visit Provider Emergency Medicine
DX: G30.9 Alzheimer's disease, unspecified (principal); C90.00 Multiple myeloma not having achieved remission; F02.80 Dementia in other diseases classified elsewhere, unspecified severity, without behavioral disturbance, psychotic disturbance, mood disturbance, and anxiety; G31.83 Neurocognitive disorder with Lewy bodies; E11.9 Type 2 diabetes mellitus without complications; I10 Essential (primary) hypertension; E78.00 Pure hypercholesterolemia, unspecified
CPT/HCPCS: 80048; 80307; 82077; 85025; 93005; 96372; 99285; A4216

== ENCOUNTER → 2025-06-24 05:00 | Outpatient (REF) | payer MEDICARE, OTHER, SELFPAY ==
[2025-06-24 10:18] LABS: Vitamin B12 537 pg/mL (180-914)
[2025-06-24 11:16] LABS: FOLATES,SERUM (FOLIC ACID) 32.30 ng/mL (4.60-34.80)
[2025-06-27 19:07] LABS: Methylmalonic Acid Bld 239 nmol/L (0-378)
[2025-06-28 06:08] LABS: Copper, Serum or Plasma 110 ug/dL (69-132); Viscosity, Serum 1.6 rel.saline (1.4-2.1)
== END ==
LOC: OLS.BROOKB 05:00
PROVIDERS: PCP Family Medicine; Visit Provider Internal Medicine Hematology & Oncology
DX: G31.83 Neurocognitive disorder with Lewy bodies (principal); D53.9 Nutritional anemia, unspecified; Z79.899 Other long term (current) drug therapy
CPT/HCPCS: 36415; 82525; 82607; 82746; 83921; 85810